=== PATIENT | male | born 1960 | race Caucasian/White ===

== ENCOUNTER → 2018-12-22 | Outpatient (CLI) | payer MEDICARE, OTHER ==
[2016-11-09 10:17] VITALS: BP 97/55
[~2018-12-22] MED LIST: ACET325T9 PO; ATOR20TA58 PO; Aspirin PO; CELE200C PO; CHOL500016 PO; FAMO-63 PO; GABA-689 PO; GLYB5TAB3 PO; Hydrocodone/Acetaminophen PO; INSU100I17 SQ; INSU100I27 SQ; LISI10TA PO; METF500T PO; Polyethylene Glycol 3350 PO; Sennosides/Docusate Sodium PO
--- NOTE | 2018-12-22 15:44 | RAD ---
KIDNEYS 12/22/2018 INDICATION: Chronic kidney disease. COMPARISON: None available TECHNIQUE: Sonographic evaluation of the kidneys is performed utilizing grayscale imaging. FINDINGS: Kidneys are obscured by bowel gas bilaterally. Multiple positions were attempted, however kidney is not definitively visualized. Urinary bladder is suboptimally distended, limiting evaluation. IMPRESSION: Nondiagnostic examination due to difficulty in visualizing the kidneys secondary to bowel gas. Electronically signed by: Krista Davison MD (12/22/2018 3:39 PM) [facility]
== END | disposition home or self-care (01) ==
LOC: US 15:15
PROVIDERS: ATTEND Internal Medicine Nephrology
DX: N18.2 Chronic kidney disease, stage 2 (mild) (principal)
CPT/HCPCS: 76770

== ENCOUNTER → 2019-01-02 | Outpatient (CLI) | payer MEDICARE ==
[2016-11-09 10:17] VITALS: BP 97/55
[~2019-01-02] MED LIST changes: +ALBU2.5V8 INH; +AMLO10TA8 PO; +ASPI-630 PO; +ATEN50TA PO; +BETH5TAB PO; +DICY10CA3 PO; +DOXA2TAB2 PO; +INSU100C SQ; +INSU100I13 SQ; +LOSA100T14 PO; +OMEP40CA5 PO; +POLY17PO28 PO; +POTA20TA4 PO
--- NOTE | 2019-01-02 13:18 | KCIC ---
Two-view chest dated 01/02/2019. Comparison none. CLINICAL INDICATION: Shortness of breath. History of bronchitis. FINDINGS: PA and lateral views obtained. Heart and mediastinal contours within normal limits. Lungs are clear without focal consolidation. Vascular interstitium within normal limits. No pleural effusion or pneumothorax. Mild tortuosity and ectasia of the thoracic aorta. IMPRESSION: No acute radiographic abnormality. Electronically signed by: Yo Patel MD (01/02/2019 1:13 PM) [facility]
== END | disposition home or self-care (01) ==
LOC: KCIC 12:57
PROVIDERS: ATTEND Family Medicine
DX: I77.810 Thoracic aortic ectasia (principal)
CPT/HCPCS: 71046

== ENCOUNTER 2019-02-27 11:22 | Inpatient (IN) | payer MEDICARE ==
[~2019-02-27] VITALS: Ht 172.7 cm; Wt 134.5 kg
[~2019-02-27 11:22] MED LIST changes: -ALBU2.5V8 INH; -AMLO10TA8 PO; -ASPI-630 PO; -ATEN50TA PO; -BETH5TAB PO; -DICY10CA3 PO; -DOXA2TAB2 PO; -INSU100C SQ; -INSU100I13 SQ; -LOSA100T14 PO; -OMEP40CA5 PO; -POLY17PO28 PO; -POTA20TA4 PO
[2019-02-27 12:06] LABS: BASO % 0 % (0-3); EOS # 0.1 x10^3/uL (0.0-0.7); EOS % 1 % (0-3); HEMATOCRIT 40.8 % (39.0-53.0); HEMOGLOBIN 12.6 g/dL (13.0-17.5); LYMPH # 0.7 x10^3/uL (1.0-4.8); LYMPH % 14 % (24-48); MEAN CORPUSCULAR HEMOGLOBIN 30 pg (25-35); MEAN CORPUSCULAR HGB CONC 31 g/dL (31-37); MEAN CORPUSCULAR VOLUME 97 fL (79-100); MONO # 0.5 x10^3/uL (0.0-1.1); MONO % 9 % (0-9); NEUT # 3.7 x10^3uL (1.8-7.7); NEUT % 76 % (31-73); PLATELET COUNT 158 x10^3/uL (140-400); RED BLOOD COUNT 4.23 x10^6/uL (4.30-5.70); RED CELL DISTRIBUTION WIDTH 14.8 % (11.5-14.5); WHITE BLOOD COUNT 4.9 x10^3/uL (4.0-11.0)
[2019-02-27 12:25] LABS: CALCIUM 8.3 mg/dL (8.5-10.1); CREATININE 2.4 mg/dL (0.7-1.3); GFR 28.1; POTASSIUM 4.6 mmol/L (3.5-5.1)
--- NOTE | 2019-02-27 12:34 | RAD ---
EXAM: Abdomen acute complete. HISTORY: Shortness of air. Bloating. COMPARISON: 01/02/2019 FINDINGS: A frontal view of the chest and frontal upright and supine views of the abdomen are obtained. There is slight decreased lung volumes with vascular crowding and atelectasis. There is mild elevation of the right hemidiaphragm, a component of which is likely positional. There is a stable prominent cardiac silhouette. There is no pleural effusion or pneumothorax. There are air-filled loops of bowel within the abdomen. There is no transition point to suggest ejection. There is no free air. IMPRESSION: 1. Slight decreased lung volumes with associated vascular crowding and atelectasis. 2. Nonobstructive bowel gas pattern. Electronically signed by: Lelo Aguirre MD (02/27/2019 12:31 PM) [place] [id number]
[2019-02-27 12:37] LABS: INFLUENZA A PATIENT NEGATIVE (NEGATIVE); INFLUENZA B PATIENT NEGATIVE (NEGATIVE)
[2019-02-27 12:38] LABS: ALBUMIN 3.2 g/dL (3.4-5.0); ALBUMIN/GLOBULIN RATIO 0.8 (1.0-1.7); MAGNESIUM 2.6 mg/dL (1.8-2.4); TOTAL BILIRUBIN 0.4 mg/dL (0.2-1.0); TOTAL PROTEIN 7.3 g/dL (6.4-8.2)
--- NOTE | 2019-02-27 12:58 | EKG ---
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
[2019-02-27] MEDS ORDERED: DOPamine 400MG/250ML PREMIX 400 MG/250 ML BAG IV ONE (16:21)
[2019-02-27] MEDS ORDERED: ATROPINE 0.5 MG/5 ML DISP.SYRINGE. ONE (16:21)
[2019-02-27] MEDS ORDERED: ACETAMINOPHEN 325 MG TABLET. PO PRN (16:45)
[2019-02-27] MEDS ORDERED: DEXTROSE 50% 25 GM / 50ML DISP.SYRIN. IV PRN (16:45)
[2019-02-27] MEDS ORDERED: MORPHINE SULFATE 2 MG/ML VIAL. IV PRN (16:45)
[2019-02-27] MEDS ORDERED: ONDANSETRON PF 4 MG/2 ML VIAL. IV PRN (16:45)
--- NOTE | 2019-02-27 16:55 | PHYS DOC ---
Past Medical History Past Medical History: Diabetes-Type II, High Cholesterol, Hypertension, Renal Disease Past Surgical History: Tonsillectomy, Other Additional Past Surgical Histo: R BKA Alcohol Use: None Drug Use: None Adult General Chief Complaint Chief Complaint: OTHER COMPLAINTS [facility] HPI Patient is a 58 year old male with history of diabetes type 2, high cholesterol , right below the knee amputation, who presents to the ED today to be evaluated for multiple complaints. Patient states he has had shortness of breath for the last 4 months. He is also complaining of swelling from his abdomen to his lower extremities for the last 3 weeks. He states he has followed up with his primary care doctor who got him on some medicine. Patient does not remember the name of the medicine and whether it was a diuretic or not. Patient denies any coughing or congestion. Denies any chest pain. Review of Systems Review of Systems Constitutional: Denies fever or chills [] Eyes: Denies change in visual acuity, redness, or eye pain [] HENT: Denies nasal congestion or sore throat [] Respiratory: Reports shortness of breath, denies coughing Cardiovascular: No additional information not addressed in HPI [] GI: Denies abdominal pain, nausea, vomiting, bloody stools or diarrhea [] : Denies dysuria or hematuria [] Musculoskeletal: Denies back pain or joint pain [] Integument: Reveals edema from his abdomen into his lower extremity. Neurologic: Denies headache, focal weakness or sensory changes [] All other systems were reviewed and found to be within normal limits, except as documented in this note. Allergies Allergies Allergies Coded Allergies Type Severity Reaction Last Updated Verified No Known Drug Allergies 11/09/16 No Physical Exam Physical Exam Constitutional: Well developed, well nourished, no acute distress, non-toxic appearance. [] HENT: Normocephalic, atraumatic, bilateral external ears normal, oropharynx moist, no oral exudates, nose normal. [] Eyes: PERRLA, EOMI, conjunctiva normal, no discharge. [] Neck: Normal range of motion, no tenderness, supple, no stridor. [] Cardiovascular:Heart rate regular rhythm, no murmur [] Lungs & Thorax: Lungs sound moist. Abdomen: Abdomen appears rounded and nondistended. Bowel sounds normal, soft, no tenderness, no masses, no pulsatile masses. [] Skin: Warm, dry, no erythema, no rash. [] Back: No tenderness, no CVA tenderness. [] Extremities: right BKA noted. No tenderness, no cyanosis, no clubbing, ROM intact, moderate testicular edema and left lower extremity edema noted. skin on the left inner bell is very dry with open area whipping clear fluid Neurologic: Alert and oriented X 3, normal motor function, normal sensory function, no focal deficits noted. [] Psychologic: Affect normal, judgement normal, mood normal. [] Current Patient Data Vital Signs Vital Signs Date Time Temp Pulse Resp B/P (MAP) Pulse Ox O2 Delivery O2 Flow Rate FiO2 02/27/19 15:32 64 28 131/69 (89) 95 Nasal Cannula 3.0 02/27/19 11:28 97.8 97.8 Lab Values Laboratory Tests Test 02/27/19 11:40 02/27/19 11:55 02/27/19 14:56 02/27/19 14:57 White Blood Count 4.9 x10^3/uL (4.0-11.0) Red Blood Count 4.23 x10^6/uL (4.30-5.70) L Hemoglobin 12.6 g/dL (13.0-17.5) L Hematocrit 40.8 % (39.0-53.0) Mean Corpuscular Volume 97 fL (79-100) Mean Corpuscular Hemoglobin 30 pg (25-35) Mean Corpuscular Hemoglobin Concent 31 g/dL (31-37) Red Cell Distribution Width 14.8 % (11.5-14.5) H Platelet Count 158 x10^3/uL (140-400) Neutrophils (%) (Auto) 76 % (31-73) H Lymphocytes (%) (Auto) 14 % (24-48) L Monocytes (%) (Auto) 9 % (0-9) Eosinophils (%) (Auto) 1 % (0-3) Basophils (%) (Auto) 0 % (0-3) Neutrophils # (Auto) 3.7 x10^3uL (1.8-7.7) Lymphocytes # (Auto) 0.7 x10^3/uL (1.0-4.8) L Monocytes # (Auto) 0.5 x10^3/uL (0.0-1.1) Eosinophils # (Auto) 0.1 x10^3/uL (0.0-0.7) Basophils # (Auto) 0.0 x10^3/uL (0.0-0.2) Prothrombin Time 15.0 SEC (11.7-14.0) H Prothrombin Time INR 1.2 (0.8-1.1) H PTT 31 SEC (24-38) Sodium Level 143 mmol/L (136-145) Potassium Level 4.6 mmol/L (3.5-5.1) Chloride Level 109 mmol/L (98-107) H Carbon Dioxide Level 26 mmol/L (21-32) Anion Gap 8 (6-14) Blood Urea Nitrogen 55 mg/dL (8-26) H Creatinine 2.4 mg/dL (0.7-1.3) H Estimated GFR (Cockcroft-Gault) 28.1 BUN/Creatinine Ratio 23 (6-20) H Glucose Level 76 mg/dL (70-99) Lactic Acid Level 1.3 mmol/L (0.4-2.0) Calcium Level 8.3 mg/dL (8.5-10.1) L Magnesium Level 2.6 mg/dL (1.8-2.4) H Total Bilirubin 0.4 mg/dL (0.2-1.0) Aspartate Amino Transferase (AST) 20 U/L (15-37) Alanine Aminotransferase (ALT) 21 U/L (16-63) Alkaline Phosphatase 102 U/L (46-116) Creatine Kinase 353 U/L (39-308) H Creatine Kinase MB (Mass) 2.8 ng/mL (0.0-3.6) Creatine Kinase MB Relative Index 0.8 % (0-4) Troponin I Quantitative 0.052 ng/mL (0.000-0.055) DH-Bto-J-Type Natriuretic Peptide 4347 pg/mL (0-124) H Total Protein 7.3 g/dL (6.4-8.2) Albumin 3.2 g/dL (3.4-5.0) L Albumin/Globulin Ratio 0.8 (1.0-1.7) L Lipase 80 U/L (73-393) Thyroid Stimulating Hormone (TSH) 2.599 uIU/mL (0.358-3.74) Influenza Type A Antigen Negative (NEGATIVE) Influenza Type B Antigen Negative (NEGATIVE) Glucose (Fingerstick) 32 mg/dL (70-99) *L 34 mg/dL (70-99) *L Test 02/27/19 15:33 Glucose (Fingerstick) 59 mg/dL (70-99) L Laboratory Tests 02/27/19 11:40 Laboratory Tests 02/27/19 11:40 EKG EKG 11:[address] Hamlin sinus rhythm heart rate 60 no STEMI Radiology/Procedures Radiology/Procedures []PROCEDURE: ACUTE ABDOMEN SERIES EXAM: Abdomen acute complete. HISTORY: Shortness of air. Bloating. COMPARISON: 01/02/2019 FINDINGS: A frontal view of the chest and frontal upright and supine views of the abdomen are obtained. There is slight decreased lung volumes with vascular crowding and atelectasis. There is mild elevation of the right hemidiaphragm, a component of which is likely positional. There is a stable prominent cardiac silhouette. There is no pleural effusion or pneumothorax. There are air-filled loops of bowel within the abdomen. There is no transition point to suggest ejection. There is no free air. IMPRESSION: 1. Slight decreased lung volumes with associated vascular crowding and atelectasis. 2. Nonobstructive bowel gas pattern. Electronically signed by: Lelo Barajas MD (02/27/2019 12:31 PM) [facility] DICTATED and SIGNED BY: LELO BARAJAS MD DATE: 02/27/19 1231 Course & Med Decision Making Course & Med Decision Making Pertinent Labs and Imaging studies reviewed. (See chart for details) This is a 58-year-old male patient presenting to the ED today with shortness of breath for 4 months, edema for 3 weeks. Patient O2 sats were 88% on room air on arrival to the ED. He was placed on oxygen 2 L. CBC with hemoglobin of 12.6 hematocrit 40.8., CMP with creatinine of 2.4, BUN 55, BNP 4337. Blood pressures are running in the low 100s/50s to 80s. Patient's blood sugar dropped in the ED to 34, we gave him food, blood glucose went up to 70. Patient has not voided in the ED. We did a BVI which shows less than 200 mL. Patient has not voided despite being in the ED for more than 4 hours. Nephrology consult was placed, renal ultrasound was ordered. I spoke with patient's PCP Dr. Samayoa, he states he no longer accept admissions. Consulted with Dr. Acuna who films accepted patient for admission. Dragon Disclaimer Dragon Disclaimer This electronic medical record was generated, in whole or in part, using a voice recognition dictation system. Departure Departure Impression: Primary Impression: Acute renal failure Additional Impressions: Edema Shortness of breath Disposition: ADMITTED INPATIENT Condition: STABLE Referrals: KRYSTIAN SAMAYOA MD (PCP) Problem Qualifiers Primary Impression: Acute renal failure Acute renal failure type: unspecified Qualified Codes: N17.9 - Acute kidney failure, unspecified Additional Impressions: Edema Edema type: unspecified Qualified Codes: R60.9 - Edema, unspecified YO EGAN [employer]PERATOR Feb 27, 2019 16:55
[2019-02-27] MEDS ORDERED: ASPI-630 PO (17:06)
[2019-02-27] MEDS ORDERED: LOSA100T14 PO (17:09)
[2019-02-27] MEDS ORDERED: OMEP40CA5 PO (17:09)
[2019-02-27] MEDS ORDERED: ATEN50TA PO (17:09)
[2019-02-27] MEDS ORDERED: AMLO10TA8 PO (17:09)
[2019-02-27] MEDS ORDERED: ATOR20TA58 PO (17:09)
[2019-02-27] MEDS ORDERED: DOXA2TAB2 PO (17:09)
[2019-02-27] MEDS ORDERED: ALBU2.5V8 INH (17:11)
[2019-02-27] MEDS ORDERED: INSU100C SQ (17:11)
[2019-02-27] MEDS ORDERED: INSU100I13 SQ (17:11)
--- NOTE | 2019-02-27 17:16 | PDOC1 ---
History and Physical Date of Admission Date of Admission DATE: 02/27/19 TIME: 17:11 Identification/Chief Complaint Chief Complaint abd swelling and dyspnea Source Source: Chart review, Patient History of Present Illness History of Present Illness Mr. Spain is a 58 year old male patient of Dr. Villavicencio, He admits from ER with dyspnea, and swelling, abd swelling and now severe scrotal swelling, He is s/p R BKA and can ambulate with prosthesis, has been active He has 3 weeks of worsening symptoms os swelling the dyspnea has been going on for months, worse the past few days with ortopnea. Past Medical History Cardiovascular: HTN Endocrine: Diabetes Past Surgical History Past Surgical History: Tonsillectomy Family History Family History: Diabetes, Hypertension, Osteo Arthiritis Social History Smoke: No ALCOHOL: none Drugs: None Current Problem List Problem List Problems Medical Problems: (1) Acute renal failure Status: Acute (2) Edema Status: Acute (3) Shortness of breath Status: Acute Current Medications Current Medications Current Medications Ondansetron HCl (Zofran) 4 mg PRN Q8HRS PRN IV NAUSEA/VOMITING; Start 02/27/19 at 16:45; Stop 02/28/19 at 16:44 Morphine Sulfate (Morphine Sulfate) 2 mg PRN Q2HR PRN IV PAIN; Start 02/27/19 at 16:45; Stop 02/28/19 at 16:44 Acetaminophen (Tylenol) 650 mg PRN Q4HRS PRN PO FEVER; Start 02/27/19 at 16:45 ; Stop 02/28/19 at 16:44 Dextrose (Dextrose 50%-Water Syringe) 12.5 gm PRN Q15MIN PRN IV SEE COMMENTS; Start 02/27/19 at 16:45 Active Scripts Active Reported Doxazosin Mesylate 2 Mg Tablet 2 Mg PO DAILY Omeprazole 40 Mg Capsule.dr 40 Mg PO DAILY Amlodipine Besylate 10 Mg Tablet 10 Mg PO DAILY Atorvastatin Calcium 20 Mg Tablet 20 Mg PO DAILY Atenolol 50 Mg Tablet 50 Mg PO DAILY Losartan Potassium 100 Mg Tablet 100 Mg PO DAILY Aspirin 81 Mg Tab.chew 81 Mg PO DAILY Glyburide 5 Mg Tablet 1 Tab PO BID Allergies Allergies: Coded Allergies: No Known Drug Allergies (Unverified , 11/09/16) ROS General: YES: Chills, Fatigue PSYCHOLOGICAL ROS: No: Anxiety, Behavioral Disorder, Concentration difficultie , Decreased libido, Depression, Disorientation, Hallucinations, Hostility, Irritablity, Memory difficulties, Mood Swings, Obsessive thoughts, Physical abuse, Sexual abuse, Sleep disturbances, Suicidal ideation, Other Eyes: No Blurry vision, No Decreased vision, No Double vision, No Dry eyes, No Excessive tearing, No Eye Pain, No Itchy Eyes, No Loss of vision, No Photophobia , No Scotomata, No Uses contacts, No Uses glasses, No Other ENDOCRINE: No: Breast Changes, Galactorrhea, Hair Pattern Changes, Hot Flashes , Malaise/lethargy, Mood Swings, Palpitations, Polydipsia/polyuria, Skin Changes , Temperature Intolerance, Unexpected Weight Changes, Other Respiratory: YES: Orthopnea, Shortness of breath, SOB with excertion; No: Cough, Hemoptysis, Pleuritic Pain, Sputum Changes, Stridor, Tachypnea, Wheezing, Other Cardiovascular: yes Edema; No Chest Pain, No Palpitations, No Orthopnea, No Paroxysmal Noc. Dyspnea, No Lt Headedness, No Other Gastrointestinal: Yes Nausea; No Vomiting, No Abdominal Pain, No Diarrhea, No Constipation, No Melena, No Hematochezia, No Other Genitourinary: YES Other (swelling); No Dysuria, No Frequency, No Incontinence, No Hematuria, No Retention, No Discharge, No Urgency, No Pain, No Flank Pain, No , No , No , No , No , No , No Musculoskeletal: No Gait Disturbance, No Joint Pain, No Joint Stiffness, No Joint Swelling, No Muscle Pain, No Muscular Weakness, No Pain In:, No Swelling In:, No Other Neurological: No Behavorial Changes, No Bowel/Bladder ControlChng, No Confusion , No Dizziness, No Gait Disturbance, No Headaches, No Impaired Coord/balance, No Memory Loss, No Numbness/Tingling, No Seizures, No Speech Problems, No Tremors, No Visual Changes, No Weakness, No Other Skin: Yes Dry Skin, Yes Eczema; No Hair Changes, No Lumps, No Mole Changes, No Mottling, No Nail Changes, No Pruritus, No Rash, No Skin Lesion Changes, No Other, No Acne Physical Exam Physical Exam malordorous General: Alert, Oriented X3, Cooperative, No acute distress HEENT: Atraumatic Abdomen: Normal bowel sounds, Soft (obese, firm) Male Genitals Exam: scrotum tenderness (R) (massive swelling, cannot see penis, not painful without palpation) Rectal Exam: not examined Extremities: Other (LLE 1+ edema, with wrinking and scale, ) Skin: Other (scale, ) Neuro: Normal speech, Normal tone, Sensation intact Psych/Mental Status: Mental status NL, Mood NL Vitals Vitals Vital Signs Date Time Temp Pulse Resp B/P (MAP) Pulse Ox O2 Delivery O2 Flow Rate FiO2 02/27/19 15:32 64 28 131/69 (89) 95 Nasal Cannula 3.0 02/27/19 11:28 97.8 97.8 Labs Labs Laboratory Tests Test 02/27/19 11:40 02/27/19 11:55 02/27/19 14:56 02/27/19 14:57 White Blood Count 4.9 x10^3/uL (4.0-11.0) Red Blood Count 4.23 x10^6/uL (4.30-5.70) Hemoglobin 12.6 g/dL (13.0-17.5) Hematocrit 40.8 % (39.0-53.0) Mean Corpuscular Volume 97 fL (79-100) Mean Corpuscular Hemoglobin 30 pg (25-35) Mean Corpuscular Hemoglobin Concent 31 g/dL (31-37) Red Cell Distribution Width 14.8 % (11.5-14.5) Platelet Count 158 x10^3/uL (140-400) Neutrophils (%) (Auto) 76 % (31-73) Lymphocytes (%) (Auto) 14 % (24-48) Monocytes (%) (Auto) 9 % (0-9) Eosinophils (%) (Auto) 1 % (0-3) Basophils (%) (Auto) 0 % (0-3) Neutrophils # (Auto) 3.7 x10^3uL (1.8-7.7) Lymphocytes # (Auto) 0.7 x10^3/uL (1.0-4.8) Monocytes # (Auto) 0.5 x10^3/uL (0.0-1.1) Eosinophils # (Auto) 0.1 x10^3/uL (0.0-0.7) Basophils # (Auto) 0.0 x10^3/uL (0.0-0.2) Prothrombin Time 15.0 SEC (11.7-14.0) Prothromb Time International Ratio 1.2 (0.8-1.1) Activated Partial Thromboplast Time 31 SEC (24-38) Sodium Level 143 mmol/L (136-145) Potassium Level 4.6 mmol/L (3.5-5.1) Chloride Level 109 mmol/L (98-107) Carbon Dioxide Level 26 mmol/L (21-32) Anion Gap 8 (6-14) Blood Urea Nitrogen 55 mg/dL (8-26) Creatinine 2.4 mg/dL (0.7-1.3) Estimated GFR (Cockcroft-Gault) 28.1 BUN/Creatinine Ratio 23 (6-20) Glucose Level 76 mg/dL (70-99) Lactic Acid Level 1.3 mmol/L (0.4-2.0) Calcium Level 8.3 mg/dL (8.5-10.1) Magnesium Level 2.6 mg/dL (1.8-2.4) Total Bilirubin 0.4 mg/dL (0.2-1.0) Aspartate Amino Transf (AST/SGOT) 20 U/L (15-37) Alanine Aminotransferase (ALT/SGPT) 21 U/L (16-63) Alkaline Phosphatase 102 U/L (46-116) Creatine Kinase 353 U/L (39-308) Creatine Kinase MB (Mass) 2.8 ng/mL (0.0-3.6) Creatine Kinase MB Relative Index 0.8 % (0-4) Troponin I Quantitative 0.052 ng/mL (0.000-0.055) YR-Hww-U-Type Natriuretic Peptide 4347 pg/mL (0-124) Total Protein 7.3 g/dL (6.4-8.2) Albumin 3.2 g/dL (3.4-5.0) Albumin/Globulin Ratio 0.8 (1.0-1.7) Lipase 80 U/L (73-393) Thyroid Stimulating Hormone (TSH) 2.599 uIU/mL (0.358-3.74) Influenza Type A Antigen Negative (NEGATIVE) Influenza Type B Antigen Negative (NEGATIVE) Glucose (Fingerstick) 32 mg/dL (70-99) 34 mg/dL (70-99) Test 02/27/19 15:33 02/27/19 16:18 Glucose (Fingerstick) 59 mg/dL (70-99) 70 mg/dL (70-99) Laboratory Tests Test 02/27/19 11:40 02/27/19 11:55 02/27/19 14:56 02/27/19 14:57 White Blood Count 4.9 x10^3/uL (4.0-11.0) Red Blood Count 4.23 x10^6/uL (4.30-5.70) Hemoglobin 12.6 g/dL (13.0-17.5) Hematocrit 40.8 % (39.0-53.0) Mean Corpuscular Volume 97 fL (79-100) Mean Corpuscular Hemoglobin 30 pg (25-35) Mean Corpuscular Hemoglobin Concent 31 g/dL (31-37) Red Cell Distribution Width 14.8 % (11.5-14.5) Platelet Count 158 x10^3/uL (140-400) Neutrophils (%) (Auto) 76 % (31-73) Lymphocytes (%) (Auto) 14 % (24-48) Monocytes (%) (Auto) 9 % (0-9) Eosinophils (%) (Auto) 1 % (0-3) Basophils (%) (Auto) 0 % (0-3) Neutrophils # (Auto) 3.7 x10^3uL (1.8-7.7) Lymphocytes # (Auto) 0.7 x10^3/uL (1.0-4.8) Monocytes # (Auto) 0.5 x10^3/uL (0.0-1.1) Eosinophils # (Auto) 0.1 x10^3/uL (0.0-0.7) Basophils # (Auto) 0.0 x10^3/uL (0.0-0.2) Prothrombin Time 15.0 SEC (11.7-14.0) Prothromb Time International Ratio 1.2 (0.8-1.1) Activated Partial Thromboplast Time 31 SEC (24-38) Sodium Level 143 mmol/L (136-145) Potassium Level 4.6 mmol/L (3.5-5.1) Chloride Level 109 mmol/L (98-107) Carbon Dioxide Level 26 mmol/L (21-32) Anion Gap 8 (6-14) Blood Urea Nitrogen 55 mg/dL (8-26) Creatinine 2.4 mg/dL (0.7-1.3) Estimated GFR (Cockcroft-Gault) 28.1 BUN/Creatinine Ratio 23 (6-20) Glucose Level 76 mg/dL (70-99) Lactic Acid Level 1.3 mmol/L (0.4-2.0) Calcium Level 8.3 mg/dL (8.5-10.1) Magnesium Level 2.6 mg/dL (1.8-2.4) Total Bilirubin 0.4 mg/dL (0.2-1.0) Aspartate Amino Transf (AST/SGOT) 20 U/L (15-37) Alanine Aminotransferase (ALT/SGPT) 21 U/L (16-63) Alkaline Phosphatase 102 U/L (46-116) Creatine Kinase 353 U/L (39-308) Creatine Kinase MB (Mass) 2.8 ng/mL (0.0-3.6) Creatine Kinase MB Relative Index 0.8 % (0-4) Troponin I Quantitative 0.052 ng/mL (0.000-0.055) JZ-Hfg-T-Type Natriuretic Peptide 4347 pg/mL (0-124) Total Protein 7.3 g/dL (6.4-8.2) Albumin 3.2 g/dL (3.4-5.0) Albumin/Globulin Ratio 0.8 (1.0-1.7) Lipase 80 U/L (73-393) Thyroid Stimulating Hormone (TSH) 2.599 uIU/mL (0.358-3.74) Influenza Type A Antigen Negative (NEGATIVE) Influenza Type B Antigen Negative (NEGATIVE) Glucose (Fingerstick) 32 mg/dL (70-99) 34 mg/dL (70-99) Test 02/27/19 15:33 02/27/19 16:18 Glucose (Fingerstick) 59 mg/dL (70-99) 70 mg/dL (70-99) VTE Prophylaxis Ordered VTE Prophylaxis Devices: No VTE Pharmacological Prophylaxi: Yes Assessment/Plan Assessment/Plan scrotal swelling, acute, worse than LE swelling, some CHF, acute systolic exacerbation, with other, but will US scrotum, consider hydrocele, Uro consult Dm2 obesity, BMI 47 hx RLE PAUL JOHNSON MD Feb 27, 2019 17:16
[2019-02-27 17:36] VITALS: BP 115/55
[2019-02-27] MEDS: HEPARIN for SUB-Q USE 5,000 UNIT/ML VIAL. SQ SCH ×2 (17:41→23:48)
[2019-02-27 19:20] VITALS: BP 111/65
--- NOTE | 2019-02-27 22:04 | PDOC2 ---
UROLOGY CONSULT Date of Admission DATE: 02/27/19 TIME: 21:58 Chief Complaint scrotal swelling Source: Chart review, Patient 3 weeks of bilateral general scrotal swelling and tenderness. No drainage, no erythema. +dyspnea, abd swelling, leg swelling. ROS ROS: RESPIRATORY: Shortness of breath denies. Cough denies. UROLOGY: Denies blood in urine. Denies difficulty urinating Past Surgical History: Tonsillectomy Past Surgical History: Tonsillectomy, Other Additional Past Surgical Histo: R BKA Current Medications Current Medications Ondansetron HCl (Zofran) 4 mg PRN Q8HRS PRN IV NAUSEA/VOMITING; Start 02/27/19 at 16:45; Stop 02/28/19 at 16:44 Morphine Sulfate (Morphine Sulfate) 2 mg PRN Q2HR PRN IV PAIN; Start 02/27/19 at 16:45; Stop 02/28/19 at 16:44 Acetaminophen (Tylenol) 650 mg PRN Q4HRS PRN PO FEVER Last administered on 02/27at 21:06; Start 02/27/19 at 16:45; Stop 02/28/19 at 16:44 Dextrose (Dextrose 50%-Water Syringe) 12.5 gm PRN Q15MIN PRN IV SEE COMMENTS; Start 02/27/19 at 16:45 Heparin Sodium (Porcine) (Heparin Sodium) 5,000 unit Q8HRS SQ Last administered on 02/27/19at 17:41; Start 02/27/19 at 17:00 Active Scripts Active Reported Proair Hfa Inhaler (Albuterol Sulfate) 8.5 Gm Hfa.aer.ad 1 Puff INH PRN Q6HRS PRN Lantus Solostar (Insulin Glargine,Hum.rec.anlog) 100 Unit/1 Ml Insuln.pen 20 Unit SQ QHS Humalog (Insulin Lispro) 100 Unit/1 Ml Cartridge 6 Unit SQ TIDWMEALS Doxazosin Mesylate 2 Mg Tablet 2 Mg PO DAILY Omeprazole 40 Mg Capsule.dr 40 Mg PO DAILY Amlodipine Besylate 10 Mg Tablet 10 Mg PO DAILY Atorvastatin Calcium 20 Mg Tablet 20 Mg PO DAILY Atenolol 50 Mg Tablet 50 Mg PO DAILY Losartan Potassium 100 Mg Tablet 100 Mg PO DAILY Aspirin 81 Mg Tab.chew 81 Mg PO DAILY Glyburide 5 Mg Tablet 1 Tab PO BID Allergies: Coded Allergies: No Known Drug Allergies (Unverified , 11/09/16) Physical Examination PHYSICAL EXAMINATION: GENERAL: Gen. appearance: No acute distress. obses Mood/affect: Pleasant. HEENT: Head: Normocephalic, atraumatic. Airway Impairment: No. CHEST: Shape and expansion: Normal. Expansion: Normal. SKIN: General: Warm. Color: Good. GENITOURINARY:bl pitting edema, no fluctuating mass, no erythema NEUROLOGICAL: Mental status: Alert and oriented 3. Language: Normal. DOES THIS PATIENT HAVE URINARY: No VITALS Vital Signs Date Time Temp Pulse Resp B/P (MAP) Pulse Ox O2 Delivery O2 Flow Rate FiO2 02/27/19 19:57 Nasal Cannula 3.0 02/27/19 19:20 97.9 61 22 111/65 (80) 92 97.9 Labs Laboratory Tests Test 02/27/19 11:40 02/27/19 11:55 02/27/19 14:56 02/27/19 14:57 White Blood Count 4.9 x10^3/uL (4.0-11.0) Red Blood Count 4.23 x10^6/uL (4.30-5.70) Hemoglobin 12.6 g/dL (13.0-17.5) Hematocrit 40.8 % (39.0-53.0) Mean Corpuscular Volume 97 fL (79-100) Mean Corpuscular Hemoglobin 30 pg (25-35) Mean Corpuscular Hemoglobin Concent 31 g/dL (31-37) Red Cell Distribution Width 14.8 % (11.5-14.5) Platelet Count 158 x10^3/uL (140-400) Neutrophils (%) (Auto) 76 % (31-73) Lymphocytes (%) (Auto) 14 % (24-48) Monocytes (%) (Auto) 9 % (0-9) Eosinophils (%) (Auto) 1 % (0-3) Basophils (%) (Auto) 0 % (0-3) Neutrophils # (Auto) 3.7 x10^3uL (1.8-7.7) Lymphocytes # (Auto) 0.7 x10^3/uL (1.0-4.8) Monocytes # (Auto) 0.5 x10^3/uL (0.0-1.1) Eosinophils # (Auto) 0.1 x10^3/uL (0.0-0.7) Basophils # (Auto) 0.0 x10^3/uL (0.0-0.2) Prothrombin Time 15.0 SEC (11.7-14.0) Prothromb Time International Ratio 1.2 (0.8-1.1) Activated Partial Thromboplast Time 31 SEC (24-38) Sodium Level 143 mmol/L (136-145) Potassium Level 4.6 mmol/L (3.5-5.1) Chloride Level 109 mmol/L (98-107) Carbon Dioxide Level 26 mmol/L (21-32) Anion Gap 8 (6-14) Blood Urea Nitrogen 55 mg/dL (8-26) Creatinine 2.4 mg/dL (0.7-1.3) Estimated GFR (Cockcroft-Gault) 28.1 BUN/Creatinine Ratio 23 (6-20) Glucose Level 76 mg/dL (70-99) Lactic Acid Level 1.3 mmol/L (0.4-2.0) Calcium Level 8.3 mg/dL (8.5-10.1) Magnesium Level 2.6 mg/dL (1.8-2.4) Total Bilirubin 0.4 mg/dL (0.2-1.0) Aspartate Amino Transf (AST/SGOT) 20 U/L (15-37) Alanine Aminotransferase (ALT/SGPT) 21 U/L (16-63) Alkaline Phosphatase 102 U/L (46-116) Creatine Kinase 353 U/L (39-308) Creatine Kinase MB (Mass) 2.8 ng/mL (0.0-3.6) Creatine Kinase MB Relative Index 0.8 % (0-4) Troponin I Quantitative 0.052 ng/mL (0.000-0.055) WZ-Wxs-C-Type Natriuretic Peptide 4347 pg/mL (0-124) Total Protein 7.3 g/dL (6.4-8.2) Albumin 3.2 g/dL (3.4-5.0) Albumin/Globulin Ratio 0.8 (1.0-1.7) Lipase 80 U/L (73-393) Thyroid Stimulating Hormone (TSH) 2.599 uIU/mL (0.358-3.74) Influenza Type A Antigen Negative (NEGATIVE) Influenza Type B Antigen Negative (NEGATIVE) Glucose (Fingerstick) 32 mg/dL (70-99) 34 mg/dL (70-99) Test 02/27/19 15:33 02/27/19 16:18 02/27/19 17:22 02/27/19 18:27 Glucose (Fingerstick) 59 mg/dL (70-99) 70 mg/dL (70-99) 53 mg/dL (70-99) 84 mg/dL (70-99) Test 02/27/19 20:35 02/27/19 20:56 Glucose (Fingerstick) 64 mg/dL (70-99) 67 mg/dL (70-99) Laboratory Tests Test 02/27/19 11:40 02/27/19 11:55 02/27/19 14:56 02/27/19 14:57 White Blood Count 4.9 x10^3/uL (4.0-11.0) Red Blood Count 4.23 x10^6/uL (4.30-5.70) Hemoglobin 12.6 g/dL (13.0-17.5) Hematocrit 40.8 % (39.0-53.0) Mean Corpuscular Volume 97 fL (79-100) Mean Corpuscular Hemoglobin 30 pg (25-35) Mean Corpuscular Hemoglobin Concent 31 g/dL (31-37) Red Cell Distribution Width 14.8 % (11.5-14.5) Platelet Count 158 x10^3/uL (140-400) Neutrophils (%) (Auto) 76 % (31-73) Lymphocytes (%) (Auto) 14 % (24-48) Monocytes (%) (Auto) 9 % (0-9) Eosinophils (%) (Auto) 1 % (0-3) Basophils (%) (Auto) 0 % (0-3) Neutrophils # (Auto) 3.7 x10^3uL (1.8-7.7) Lymphocytes # (Auto) 0.7 x10^3/uL (1.0-4.8) Monocytes # (Auto) 0.5 x10^3/uL (0.0-1.1) Eosinophils # (Auto) 0.1 x10^3/uL (0.0-0.7) Basophils # (Auto) 0.0 x10^3/uL (0.0-0.2) Prothrombin Time 15.0 SEC (11.7-14.0) Prothromb Time International Ratio 1.2 (0.8-1.1) Activated Partial Thromboplast Time 31 SEC (24-38) Sodium Level 143 mmol/L (136-145) Potassium Level 4.6 mmol/L (3.5-5.1) Chloride Level 109 mmol/L (98-107) Carbon Dioxide Level 26 mmol/L (21-32) Anion Gap 8 (6-14) Blood Urea Nitrogen 55 mg/dL (8-26) Creatinine 2.4 mg/dL (0.7-1.3) Estimated GFR (Cockcroft-Gault) 28.1 BUN/Creatinine Ratio 23 (6-20) Glucose Level 76 mg/dL (70-99) Lactic Acid Level 1.3 mmol/L (0.4-2.0) Calcium Level 8.3 mg/dL (8.5-10.1) Magnesium Level 2.6 mg/dL (1.8-2.4) Total Bilirubin 0.4 mg/dL (0.2-1.0) Aspartate Amino Transf (AST/SGOT) 20 U/L (15-37) Alanine Aminotransferase (ALT/SGPT) 21 U/L (16-63) Alkaline Phosphatase 102 U/L (46-116) Creatine Kinase 353 U/L (39-308) Creatine Kinase MB (Mass) 2.8 ng/mL (0.0-3.6) Creatine Kinase MB Relative Index 0.8 % (0-4) Troponin I Quantitative 0.052 ng/mL (0.000-0.055) FT-Hid-I-Type Natriuretic Peptide 4347 pg/mL (0-124) Total Protein 7.3 g/dL (6.4-8.2) Albumin 3.2 g/dL (3.4-5.0) Albumin/Globulin Ratio 0.8 (1.0-1.7) Lipase 80 U/L (73-393) Thyroid Stimulating Hormone (TSH) 2.599 uIU/mL (0.358-3.74) Influenza Type A Antigen Negative (NEGATIVE) Influenza Type B Antigen Negative (NEGATIVE) Glucose (Fingerstick) 32 mg/dL (70-99) 34 mg/dL (70-99) Test 02/27/19 15:33 02/27/19 16:18 02/27/19 17:22 02/27/19 18:27 Glucose (Fingerstick) 59 mg/dL (70-99) 70 mg/dL (70-99) 53 mg/dL (70-99) 84 mg/dL (70-99) Test 02/27/19 20:35 02/27/19 20:56 Glucose (Fingerstick) 64 mg/dL (70-99) 67 mg/dL (70-99) Images us reviewed by myself, live. bl small hydroceles, no abscess. Assessment/Plan bl hydrocele, clinically insignificant. scrotal swelling, 2/2 anasarca. recommend rest, ice , scrotal elevation. RADHIKA BARKSDALE MD Feb 27, 2019 22:04
[2019-02-27 23:20] VITALS: BP 115/58
[2019-02-28] VITALS (21 sets, daily range): BP systolic 82–143; BP diastolic 49–76
[2019-02-28 04:18] LABS: BASO % 1 % (0-3); EOS # 0.1 x10^3/uL (0.0-0.7); EOS % 2 % (0-3); HEMOGLOBIN 12.5 g/dL (13.0-17.5); LYMPH % 18 % (24-48); MEAN CORPUSCULAR HEMOGLOBIN 30 pg (25-35); MEAN CORPUSCULAR HGB CONC 31 g/dL (31-37); MEAN CORPUSCULAR VOLUME 97 fL (79-100); MONO # 0.5 x10^3/uL (0.0-1.1); MONO % 9 % (0-9); NEUT # 3.9 x10^3uL (1.8-7.7); NEUT % 71 % (31-73); PLATELET COUNT 181 x10^3/uL (140-400); RED BLOOD COUNT 4.12 x10^6/uL (4.30-5.70); RED CELL DISTRIBUTION WIDTH 15.1 % (11.5-14.5); WHITE BLOOD COUNT 5.5 x10^3/uL (4.0-11.0)
[2019-02-28 05:05] LABS: CALCIUM 8.3 mg/dL (8.5-10.1); CREATININE 2.6 mg/dL (0.7-1.3); GFR 25.7; POTASSIUM 4.6 mmol/L (3.5-5.1)
[2019-02-28] MEDS: HEPARIN for SUB-Q USE 5,000 UNIT/ML VIAL. SQ SCH ×3 (05:35→21:37)
[2019-02-28] MEDS ORDERED: ETOMIDATE 20 MG/10 ML VIAL. IV ONE (06:59)
[2019-02-28] MEDS ORDERED: ROCURONIUM 50 MG/5 ML VIAL. ONE (07:00)
[2019-02-28] MEDS ORDERED: PROPOFOL 100 ML IV PRN (07:15)
[2019-02-28] MEDS ORDERED: fentaNYL PF VIAL 100 MCG/2 ML VIAL IV PRN ×3 (07:15→07:45)
[2019-02-28] MEDS: IV NORMAL SALINE 1000ML BAG 1,000 ML IV SCH ×3 (07:32→09:32)
--- NOTE | 2019-02-28 07:34 | NUR ---
Around 0625 the MEDICAL RECEPTIONIST ASSISTANT came and got me and stated that she needed help w/ pt. When I got there he was foaming at the mouth. A rapid response was called then we hit the code blue button when he became non-responsive. Pt. transfered to ICU and message was left w/ his friend Nathan to call back.
[2019-02-28] MEDS ORDERED: 0.9 % SODIUM CHLORIDE 10 ML DISP.SYRIN. IV PRN (07:45)
[2019-02-28] MEDS ORDERED: VECURONIUM BOLUS 10 MG VIAL. IV PRN (07:45)
[2019-02-28] MEDS ORDERED: MINERAL OIL/PETROLATUM,WHITE OPHTH OINT 3.5GM TUBE. OU PRN (07:45)
[2019-02-28] MEDS ORDERED: MEPERIDINE PF 25 MG/ML VIAL. IV PRN (07:45)
--- NOTE | 2019-02-28 07:48 | RAD ---
PORTABLE CHEST 1V History: Endotracheal tube placement Comparison: February 27, 2019 Findings: AP view of the chest is submitted. Endotracheal tube is now present with the tip about 2.2 cm from armani. Pericardial cardiac silhouette is again somewhat enlarged. There is some fullness of the hilar regions and opacity in region of the azygos more apparent on this exam, also some perihilar opacity greater on the right. There is no pneumothorax. There is somewhat increased mild right base airspace opacity. Impression: 1. There is increased perihilar opacity greater on the right and also right base airspace opacity possibly due to edema such as related to left ventricular failure, infiltrates not excluded. There is also some increased fullness in the region of azygous which could be due to azygos distention. There is now endotracheal tube. Electronically signed by: Taras Mendoza MD (02/28/2019 7:45 AM) [facility]
--- NOTE | 2019-02-28 07:59 | RAD ---
TESTICULAR/SCROTUM History: Scrotal swelling and tenderness Comparison: None. Findings: Multiple grayscale, color, duplex spectral masses waveform images of the testicles and scrotum are submitted. There is severe scrotal wall thickening greater on the left with associated edema, no focal fluid collection demonstrated in this region. Right testicle measured 4.1 x 3.7 x 3.2 cm. Left testicle measured 3.9 x 2.9 x 2.9 cm. There is normal color flow and low resistance vascularity of interrogated intratesticular vessels bilaterally. There are small hydroceles bilaterally. There is a small small hypoechoic likely cyst in the posterior right testicle about 0.5 cm in greatest dimension. No solid intratesticular mass is demonstrated. Impression: 1. There is severe scrotal wall thickening with edema left greater than right, evidence of cellulitis. There is no evidence of solid intratesticular mass, small cyst on the right. There is no evidence of testicular torsion. Electronically signed by: Taras Mendoza MD (02/28/2019 7:56 AM) [facility]
--- NOTE | 2019-02-28 08:07 | RAD ---
RENAL COMPLETE BILATERAL History: Acute renal failure, fluid overload, anasarca, obesity Comparison: December 22, 2018 Findings: Sonographic images of the region of the kidneys are submitted although the kidneys could not be visualized due to patient's body habitus. Abdominal aorta and inferior vena cava and also could not be visualized. Urinary bladder was visualized, estimated volume of 154 cc. Impression: 1. Urinary bladder volume was estimated at 154 cc. Neither kidney could be visualized. Electronically signed by: Taras Mendoza MD (02/28/2019 8:03 AM) [facility]
[2019-02-28 08:11] LABS: HEMATOCRIT 40.3 % (39.0-53.0); HEMOGLOBIN 12.8 g/dL (13.0-17.5); RED BLOOD COUNT 4.12 x10^6/uL (4.30-5.70); RED CELL DISTRIBUTION WIDTH 14.9 % (11.5-14.5)
[2019-02-28] MEDS: MIDAZOLAM 100mg/100ml NS BAG 100 ML IV PRN ×3 (08:14→19:58)
[2019-02-28] MEDS ORDERED: FUROSEMIDE 40 MG/4 ML VIAL. IVP ONE (08:30)
[2019-02-28 08:39] LABS: CALCIUM 8.1 mg/dL (8.5-10.1); CREATININE 3.2 mg/dL (0.7-1.3); GFR 20.2; MAGNESIUM 2.7 mg/dL (1.8-2.4); PHOSPHORUS 6.5 mg/dL (2.6-4.7); POTASSIUM 4.9 mmol/L (3.5-5.1)
[2019-02-28] MEDS ORDERED: ASPIRIN RECTAL 300 MG SUPP. PR SCH (09:00)
[2019-02-28] MEDS ORDERED: FAMOTIDINE 20 MG/2 ML VIAL IVP SCH (09:00)
[2019-02-28 09:23] LABS: BILIRUBIN,URINE MODERATE (NEG); CLARITY,URINE TURBID; COLOR,URINE ORANGE; NITRITE,URINE NEGATIVE (NEG); PROTEIN,URINE >=300 mg/dL (NEG-TRACE)
[2019-02-28 09:31] LABS: BARBITURATES NEG (NEG); BENZODIAZEPINES NEG (NEG); CANNABINOIDS NEG (NEG); COCAINE NEG (NEG); METHADONE NEG (NEG); OPIATES NEG (NEG); PHENCYCLIDINE NEG (NEG)
[2019-02-28 09:33] LABS: BASE EXCESS ABG -5 mmol/L (-3-3); HCO3 ABG 24 mmol/L (21-28); PO2 ABG 76 mmHg (75-108); SAT O2 ABG 94 % (92-99)
[2019-02-28 09:35] LABS: PCO2 ABG 64 mmHg (35-46)
[2019-02-28 09:36] LABS: FIO2 ABG 100%
[2019-02-28 09:46] LABS: BACTERIA,URINE FEW /HPF (0-FEW); HYALINE CASTS, URINE MODERATE /HPF; RBC,URINE >40 /HPF (0-2); WBC,URINE OCC /HPF (0-4)
[2019-02-28 09:48] LABS: AMPHETAMINE/METHAMPHETAMINE NEG (NEG)
--- NOTE | 2019-02-28 09:48 | EKG ---
[facility] [address] [place] [address] Test Date: 2019-02-28 Test Time: 09:42:01 Pat Name: RONNY GOLDSMITH Department: Room: 110 1 Gender: M Foreclosure Specialist: ROJAS : 1960 Requested By: PAUL GRIMES Order Number: [id number] Reading MD: Russell Merritt MD Measurements Intervals [place] Rate: 77 P: 38 HI: 140 QRS: -30 QRSD: 80 T: 40 QT: 368 QTc: 418 Interpretive Statements SINUS RHYTHM LOW LIMB LEAD VOLTAGE NON-SPECIFIC ST/T CHANGES Electronically Signed On 03-02-2019 14:30:01 CDT by Russell Merritt MD
--- NOTE | 2019-02-28 10:26 | PDOC ---
PROGRESS NOTES History of Present Illness History of Present Illness Assessment/Plan ACUTE RESP ARREST POST CODE ON FLOOR scrotal swelling 3 weeks of bilateral general scrotal swelling and tenderness. +dyspnea, abd swelling, leg swelling. POA scrotal swelling, acute, worse than LE swelling, some CHF, acute systolic exacerbation, with other, but will US scrotum, consider hydrocele, Uro consult Dm2 obesity, BMI 47 hx RLE BKA Acute renal failure CR Renal CONSULT 3.1 PLAN INTUBATED NOW // IN ICU VENT SUPPORT PULM CONSULT CARDIOLOGY CONSULT UROLOGY CONSULT ID CONSULT IV Meropenem Begin Zyvox - Avoid Vanc with LEONARD IV Micafungin lactic acid/BNP KUB for ? Ileus/SBO - given distension/decreased BS and OGT output ECHO PROCALCITONIN 36 MIN CC TIME Vitals Vitals Vital Signs Date Time Temp Pulse Resp B/P (MAP) Pulse Ox O2 Delivery O2 Flow Rate FiO2 02/28/19 09:32 20 90 Ventilator 02/28/19 03:25 98.0 64 124/73 (90) 4.0 98.0 Physical Exam General: Alert, Oriented X3, Cooperative, No acute distress Heart: Regular rate Lungs: Clear Abdomen: Normal bowel sounds, Soft (obese, firm) Extremities: No cyanosis, Other (LLE 1+ edema, with wrinking and scale, ) Skin: Other (scale, ) Labs LABS PORTABLE CHEST 1V History: Endotracheal tube placement Comparison: February 27, 2019 Findings: AP view of the chest is submitted. Endotracheal tube is now present with the tip about 2.2 cm from armani. Pericardial cardiac silhouette is again somewhat enlarged. There is some fullness of the hilar regions and opacity in region of the azygos more apparent on this exam, also some perihilar opacity greater on the right. There is no pneumothorax. There is somewhat increased mild right base airspace opacity. Impression: 1. There is increased perihilar opacity greater on the right and also right base airspace opacity possibly due to edema such as related to left ventricular failure, infiltrates not excluded. There is also some increased fullness in the region of azygous which could be due to azygos distention. There is now endotracheal tube. Electronically signed by: Link Lopez MD (02/28/2019 7:45 AM) [facility] DICTATED and SIGNED BY: LINK LOPEZ MD DATE: 02/28/19 0745 Laboratory Tests Test 02/27/19 11:40 02/27/19 11:55 02/27/19 14:56 02/27/19 14:57 White Blood Count 4.9 x10^3/uL (4.0-11.0) Red Blood Count 4.23 x10^6/uL (4.30-5.70) Hemoglobin 12.6 g/dL (13.0-17.5) Hematocrit 40.8 % (39.0-53.0) Mean Corpuscular Volume 97 fL (79-100) Mean Corpuscular Hemoglobin 30 pg (25-35) Mean Corpuscular Hemoglobin Concent 31 g/dL (31-37) Red Cell Distribution Width 14.8 % (11.5-14.5) Platelet Count 158 x10^3/uL (140-400) Neutrophils (%) (Auto) 76 % (31-73) Lymphocytes (%) (Auto) 14 % (24-48) Monocytes (%) (Auto) 9 % (0-9) Eosinophils (%) (Auto) 1 % (0-3) Basophils (%) (Auto) 0 % (0-3) Neutrophils # (Auto) 3.7 x10^3uL (1.8-7.7) Lymphocytes # (Auto) 0.7 x10^3/uL (1.0-4.8) Monocytes # (Auto) 0.5 x10^3/uL (0.0-1.1) Eosinophils # (Auto) 0.1 x10^3/uL (0.0-0.7) Basophils # (Auto) 0.0 x10^3/uL (0.0-0.2) Prothrombin Time 15.0 SEC (11.7-14.0) Prothromb Time International Ratio 1.2 (0.8-1.1) Activated Partial Thromboplast Time 31 SEC (24-38) Sodium Level 143 mmol/L (136-145) Potassium Level 4.6 mmol/L (3.5-5.1) Chloride Level 109 mmol/L (98-107) Carbon Dioxide Level 26 mmol/L (21-32) Anion Gap 8 (6-14) Blood Urea Nitrogen 55 mg/dL (8-26) Creatinine 2.4 mg/dL (0.7-1.3) Estimated GFR (Cockcroft-Gault) 28.1 BUN/Creatinine Ratio 23 (6-20) Glucose Level 76 mg/dL (70-99) Lactic Acid Level 1.3 mmol/L (0.4-2.0) Calcium Level 8.3 mg/dL (8.5-10.1) Magnesium Level 2.6 mg/dL (1.8-2.4) Total Bilirubin 0.4 mg/dL (0.2-1.0) Aspartate Amino Transf (AST/SGOT) 20 U/L (15-37) Alanine Aminotransferase (ALT/SGPT) 21 U/L (16-63) Alkaline Phosphatase 102 U/L (46-116) Creatine Kinase 353 U/L (39-308) Creatine Kinase MB (Mass) 2.8 ng/mL (0.0-3.6) Creatine Kinase MB Relative Index 0.8 % (0-4) Troponin I Quantitative 0.052 ng/mL (0.000-0.055) [id number]-Dtk-[id number]-Type Natriuretic Peptide 4347 pg/mL (0-124) Total Protein 7.3 g/dL (6.4-8.2) Albumin 3.2 g/dL (3.4-5.0) Albumin/Globulin Ratio 0.8 (1.0-1.7) Lipase 80 U/L (73-393) Thyroid Stimulating Hormone (TSH) 2.599 uIU/mL (0.358-3.74) Influenza Type A Antigen Negative (NEGATIVE) Influenza Type B Antigen Negative (NEGATIVE) Glucose (Fingerstick) 32 mg/dL (70-99) 34 mg/dL (70-99) Test 02/27/19 15:33 02/27/19 16:18 02/27/19 17:22 02/27/19 18:27 Glucose (Fingerstick) 59 mg/dL (70-99) 70 mg/dL (70-99) 53 mg/dL (70-99) 84 mg/dL (70-99) Test 02/27/19 20:35 02/27/19 20:56 02/27/19 22:30 02/28/19 03:35 Glucose (Fingerstick) 64 mg/dL (70-99) 67 mg/dL (70-99) 83 mg/dL (70-99) White Blood Count 5.5 x10^3/uL (4.0-11.0) Red Blood Count 4.12 x10^6/uL (4.30-5.70) Hemoglobin 12.5 g/dL (13.0-17.5) Hematocrit 40.0 % (39.0-53.0) Mean Corpuscular Volume 97 fL (79-100) Mean Corpuscular Hemoglobin 30 pg (25-35) Mean Corpuscular Hemoglobin Concent 31 g/dL (31-37) Red Cell Distribution Width 15.1 % (11.5-14.5) Platelet Count 181 x10^3/uL (140-400) Neutrophils (%) (Auto) 71 % (31-73) Lymphocytes (%) (Auto) 18 % (24-48) Monocytes (%) (Auto) 9 % (0-9) Eosinophils (%) (Auto) 2 % (0-3) Basophils (%) (Auto) 1 % (0-3) Neutrophils # (Auto) 3.9 x10^3uL (1.8-7.7) Lymphocytes # (Auto) 1.0 x10^3/uL (1.0-4.8) Monocytes # (Auto) 0.5 x10^3/uL (0.0-1.1) Eosinophils # (Auto) 0.1 x10^3/uL (0.0-0.7) Basophils # (Auto) 0.0 x10^3/uL (0.0-0.2) Sodium Level 144 mmol/L (136-145) Potassium Level 4.6 mmol/L (3.5-5.1) Chloride Level 108 mmol/L (98-107) Carbon Dioxide Level 28 mmol/L (21-32) Anion Gap 8 (6-14) Blood Urea Nitrogen 57 mg/dL (8-26) Creatinine 2.6 mg/dL (0.7-1.3) Estimated GFR (Cockcroft-Gault) 25.7 Glucose Level 97 mg/dL (70-99) Calcium Level 8.3 mg/dL (8.5-10.1) Test 02/28/19 06:29 02/28/19 07:40 02/28/19 08:32 02/28/19 08:45 Glucose (Fingerstick) 125 mg/dL (70-99) White Blood Count 9.0 x10^3/uL (4.0-11.0) Red Blood Count 4.12 x10^6/uL (4.30-5.70) Hemoglobin 12.8 g/dL (13.0-17.5) Hematocrit 40.3 % (39.0-53.0) Mean Corpuscular Volume 98 fL (79-100) Mean Corpuscular Hemoglobin 31 pg (25-35) Mean Corpuscular Hemoglobin Concent 32 g/dL (31-37) Red Cell Distribution Width 14.9 % (11.5-14.5) Platelet Count 157 x10^3/uL (140-400) Sodium Level 149 mmol/L (136-145) Potassium Level 4.9 mmol/L (3.5-5.1) Chloride Level 111 mmol/L (98-107) Carbon Dioxide Level 27 mmol/L (21-32) Anion Gap 11 (6-14) Blood Urea Nitrogen 63 mg/dL (8-26) Creatinine 3.2 mg/dL (0.7-1.3) Estimated GFR (Cockcroft-Gault) 20.2 Glucose Level 156 mg/dL (70-99) Calcium Level 8.1 mg/dL (8.5-10.1) Phosphorus Level 6.5 mg/dL (2.6-4.7) Magnesium Level 2.7 mg/dL (1.8-2.4) Amylase Level 31 U/L (25-115) O2 Saturation 94 % (92-99) Arterial Blood pH 7.19 (7.35-7.45) Arterial Blood pCO2 at Patient Temp 64 mmHg (35-46) Arterial Blood pO2 at Patient Temp 76 mmHg (75-108) Arterial Blood HCO3 24 mmol/L (21-28) Arterial Blood Base Excess -5 mmol/L (-3-3) FiO2 100% Urine Collection Type Unknown Urine Color Comstock Urine Clarity Turbid Urine pH 5.0 Urine Specific [place] 1.025 Urine Protein >=300 mg/dL (NEG-TRACE) Urine Glucose (UA) Negative mg/dL (NEG) Urine Ketones (Stick) Trace mg/dL (NEG) Urine Blood Large (NEG) Urine Nitrite Negative (NEG) Urine Bilirubin Moderate (NEG) Urine Urobilinogen Dipstick 2.0 mg/dL (0.2 mg/dL) Urine Leukocyte Esterase Small (NEG) Urine RBC >40 /HPF (0-2) Urine WBC Occ /HPF (0-4) Urine Bacteria Few /HPF (0-FEW) Urine Hyaline Casts Moderate /HPF Urine Opiates Screen Neg (NEG) Urine Methadone Screen Neg (NEG) Urine Barbiturates Neg (NEG) Urine Phencyclidine Screen Neg (NEG) Urine Amphetamine/Methamphetamine Neg (NEG) Urine Benzodiazepines Screen Neg (NEG) Urine Cocaine Screen Neg (NEG) Urine Cannabinoids Screen Neg (NEG) Urine Ethyl Alcohol Neg (NEG) Test 02/28/19 09:00 Ionized Calcium 1.10 mmol/L (1.13-1.32) Assessment and Plan Assessmemt and Plan Problems Medical Problems: (1) Acute renal failure Status: Acute (2) Edema Status: Acute (3) Shortness of breath Status: Acute Comment Review of Relevant I have reviewed the following items pascual (where applicable) has been applied. Labs Laboratory Tests Test 02/27/19 11:40 02/27/19 11:55 02/27/19 14:56 02/27/19 14:57 White Blood Count 4.9 x10^3/uL (4.0-11.0) Red Blood Count 4.23 x10^6/uL (4.30-5.70) Hemoglobin 12.6 g/dL (13.0-17.5) Hematocrit 40.8 % (39.0-53.0) Mean Corpuscular Volume 97 fL (79-100) Mean Corpuscular Hemoglobin 30 pg (25-35) Mean Corpuscular Hemoglobin Concent 31 g/dL (31-37) Red Cell Distribution Width 14.8 % (11.5-14.5) Platelet Count 158 x10^3/uL (140-400) Neutrophils (%) (Auto) 76 % (31-73) Lymphocytes (%) (Auto) 14 % (24-48) Monocytes (%) (Auto) 9 % (0-9) Eosinophils (%) (Auto) 1 % (0-3) Basophils (%) (Auto) 0 % (0-3) Neutrophils # (Auto) 3.7 x10^3uL (1.8-7.7) Lymphocytes # (Auto) 0.7 x10^3/uL (1.0-4.8) Monocytes # (Auto) 0.5 x10^3/uL (0.0-1.1) Eosinophils # (Auto) 0.1 x10^3/uL (0.0-0.7) Basophils # (Auto) 0.0 x10^3/uL (0.0-0.2) Prothrombin Time 15.0 SEC (11.7-14.0) Prothromb Time International Ratio 1.2 (0.8-1.1) Activated Partial Thromboplast Time 31 SEC (24-38) Sodium Level 143 mmol/L (136-145) Potassium Level 4.6 mmol/L (3.5-5.1) Chloride Level 109 mmol/L (98-107) Carbon Dioxide Level 26 mmol/L (21-32) Anion Gap 8 (6-14) Blood Urea Nitrogen 55 mg/dL (8-26) Creatinine 2.4 mg/dL (0.7-1.3) Estimated GFR (Cockcroft-Gault) 28.1 BUN/Creatinine Ratio 23 (6-20) Glucose Level 76 mg/dL (70-99) Lactic Acid Level 1.3 mmol/L (0.4-2.0) Calcium Level 8.3 mg/dL (8.5-10.1) Magnesium Level 2.6 mg/dL (1.8-2.4) Total Bilirubin 0.4 mg/dL (0.2-1.0) Aspartate Amino Transf (AST/SGOT) 20 U/L (15-37) Alanine Aminotransferase (ALT/SGPT) 21 U/L (16-63) Alkaline Phosphatase 102 U/L (46-116) Creatine Kinase 353 U/L (39-308) Creatine Kinase MB (Mass) 2.8 ng/mL (0.0-3.6) Creatine Kinase MB Relative Index 0.8 % (0-4) Troponin I Quantitative 0.052 ng/mL (0.000-0.055) DP-Mqj-A-Type Natriuretic Peptide 4347 pg/mL (0-124) Total Protein 7.3 g/dL (6.4-8.2) Albumin 3.2 g/dL (3.4-5.0) Albumin/Globulin Ratio 0.8 (1.0-1.7) Lipase 80 U/L (73-393) Thyroid Stimulating Hormone (TSH) 2.599 uIU/mL (0.358-3.74) Influenza Type A Antigen Negative (NEGATIVE) Influenza Type B Antigen Negative (NEGATIVE) Glucose (Fingerstick) 32 mg/dL (70-99) 34 mg/dL (70-99) Test 02/27/19 15:33 02/27/19 16:18 02/27/19 17:22 02/27/19 18:27 Glucose (Fingerstick) 59 mg/dL (70-99) 70 mg/dL (70-99) 53 mg/dL (70-99) 84 mg/dL (70-99) Test 02/27/19 20:35 02/27/19 20:56 02/27/19 22:30 02/28/19 03:35 Glucose (Fingerstick) 64 mg/dL (70-99) 67 mg/dL (70-99) 83 mg/dL (70-99) White Blood Count 5.5 x10^3/uL (4.0-11.0) Red Blood Count 4.12 x10^6/uL (4.30-5.70) Hemoglobin 12.5 g/dL (13.0-17.5) Hematocrit 40.0 % (39.0-53.0) Mean Corpuscular Volume 97 fL (79-100) Mean Corpuscular Hemoglobin 30 pg (25-35) Mean Corpuscular Hemoglobin Concent 31 g/dL (31-37) Red Cell Distribution Width 15.1 % (11.5-14.5) Platelet Count 181 x10^3/uL (140-400) Neutrophils (%) (Auto) 71 % (31-73) Lymphocytes (%) (Auto) 18 % (24-48) Monocytes (%) (Auto) 9 % (0-9) Eosinophils (%) (Auto) 2 % (0-3) Basophils (%) (Auto) 1 % (0-3) Neutrophils # (Auto) 3.9 x10^3uL (1.8-7.7) Lymphocytes # (Auto) 1.0 x10^3/uL (1.0-4.8) Monocytes # (Auto) 0.5 x10^3/uL (0.0-1.1) Eosinophils # (Auto) 0.1 x10^3/uL (0.0-0.7) Basophils # (Auto) 0.0 x10^3/uL (0.0-0.2) Sodium Level 144 mmol/L (136-145) Potassium Level 4.6 mmol/L (3.5-5.1) Chloride Level 108 mmol/L (98-107) Carbon Dioxide Level 28 mmol/L (21-32) Anion Gap 8 (6-14) Blood Urea Nitrogen 57 mg/dL (8-26) Creatinine 2.6 mg/dL (0.7-1.3) Estimated GFR (Cockcroft-Gault) 25.7 Glucose Level 97 mg/dL (70-99) Calcium Level 8.3 mg/dL (8.5-10.1) Test 02/28/19 06:29 02/28/19 07:40 02/28/19 08:32 02/28/19 08:45 Glucose (Fingerstick) 125 mg/dL (70-99) White Blood Count 9.0 x10^3/uL (4.0-11.0) Red Blood Count 4.12 x10^6/uL (4.30-5.70) Hemoglobin 12.8 g/dL (13.0-17.5) Hematocrit 40.3 % (39.0-53.0) Mean Corpuscular Volume 98 fL (79-100) Mean Corpuscular Hemoglobin 31 pg (25-35) Mean Corpuscular Hemoglobin Concent 32 g/dL (31-37) Red Cell Distribution Width 14.9 % (11.5-14.5) Platelet Count 157 x10^3/uL (140-400) Sodium Level 149 mmol/L (136-145) Potassium Level 4.9 mmol/L (3.5-5.1) Chloride Level 111 mmol/L (98-107) Carbon Dioxide Level 27 mmol/L (21-32) Anion Gap 11 (6-14) Blood Urea Nitrogen 63 mg/dL (8-26) Creatinine 3.2 mg/dL (0.7-1.3) Estimated GFR (Cockcroft-Gault) 20.2 Glucose Level 156 mg/dL (70-99) Calcium Level 8.1 mg/dL (8.5-10.1) Phosphorus Level 6.5 mg/dL (2.6-4.7) Magnesium Level 2.7 mg/dL (1.8-2.4) Amylase Level 31 U/L (25-115) O2 Saturation 94 % (92-99) Arterial Blood pH 7.19 (7.35-7.45) Arterial Blood pCO2 at Patient Temp 64 mmHg (35-46) Arterial Blood pO2 at Patient Temp 76 mmHg (75-108) Arterial Blood HCO3 24 mmol/L (21-28) Arterial Blood Base Excess -5 mmol/L (-3-3) FiO2 100% Urine Collection Type Unknown Urine Color [place] Urine Clarity Turbid Urine pH 5.0 Urine Specific [place] 1.025 Urine Protein >=300 mg/dL (NEG-TRACE) Urine Glucose (UA) Negative mg/dL (NEG) Urine Ketones (Stick) Trace mg/dL (NEG) Urine Blood Large (NEG) Urine Nitrite Negative (NEG) Urine Bilirubin Moderate (NEG) Urine Urobilinogen Dipstick 2.0 mg/dL (0.2 mg/dL) Urine Leukocyte Esterase Small (NEG) Urine RBC >40 /HPF (0-2) Urine WBC Occ /HPF (0-4) Urine Bacteria Few /HPF (0-FEW) Urine Hyaline Casts Moderate /HPF Urine Opiates Screen Neg (NEG) Urine Methadone Screen Neg (NEG) Urine Barbiturates Neg (NEG) Urine Phencyclidine Screen Neg (NEG) Urine Amphetamine/Methamphetamine Neg (NEG) Urine Benzodiazepines Screen Neg (NEG) Urine Cocaine Screen Neg (NEG) Urine Cannabinoids Screen Neg (NEG) Urine Ethyl Alcohol Neg (NEG) Test 02/28/19 09:00 Ionized Calcium 1.10 mmol/L (1.13-1.32) Laboratory Tests Test 02/27/19 11:40 02/27/19 11:55 02/27/19 14:56 02/27/19 14:57 White Blood Count 4.9 x10^3/uL (4.0-11.0) Red Blood Count 4.23 x10^6/uL (4.30-5.70) Hemoglobin 12.6 g/dL (13.0-17.5) Hematocrit 40.8 % (39.0-53.0) Mean Corpuscular Volume 97 fL (79-100) Mean Corpuscular Hemoglobin 30 pg (25-35) Mean Corpuscular Hemoglobin Concent 31 g/dL (31-37) Red Cell Distribution Width 14.8 % (11.5-14.5) Platelet Count 158 x10^3/uL (140-400) Neutrophils (%) (Auto) 76 % (31-73) Lymphocytes (%) (Auto) 14 % (24-48) Monocytes (%) (Auto) 9 % (0-9) Eosinophils (%) (Auto) 1 % (0-3) Basophils (%) (Auto) 0 % (0-3) Neutrophils # (Auto) 3.7 x10^3uL (1.8-7.7) Lymphocytes # (Auto) 0.7 x10^3/uL (1.0-4.8) Monocytes # (Auto) 0.5 x10^3/uL (0.0-1.1) Eosinophils # (Auto) 0.1 x10^3/uL (0.0-0.7) Basophils # (Auto) 0.0 x10^3/uL (0.0-0.2) Prothrombin Time 15.0 SEC (11.7-14.0) Prothromb Time International Ratio 1.2 (0.8-1.1) Activated Partial Thromboplast Time 31 SEC (24-38) Sodium Level 143 mmol/L (136-145) Potassium Level 4.6 mmol/L (3.5-5.1) Chloride Level 109 mmol/L (98-107) Carbon Dioxide Level 26 mmol/L (21-32) Anion Gap 8 (6-14) Blood Urea Nitrogen 55 mg/dL (8-26) Creatinine 2.4 mg/dL (0.7-1.3) Estimated GFR (Cockcroft-Gault) 28.1 BUN/Creatinine Ratio 23 (6-20) Glucose Level 76 mg/dL (70-99) Lactic Acid Level 1.3 mmol/L (0.4-2.0) Calcium Level 8.3 mg/dL (8.5-10.1) Magnesium Level 2.6 mg/dL (1.8-2.4) Total Bilirubin 0.4 mg/dL (0.2-1.0) Aspartate Amino Transf (AST/SGOT) 20 U/L (15-37) Alanine Aminotransferase (ALT/SGPT) 21 U/L (16-63) Alkaline Phosphatase 102 U/L (46-116) Creatine Kinase 353 U/L (39-308) Creatine Kinase MB (Mass) 2.8 ng/mL (0.0-3.6) Creatine Kinase MB Relative Index 0.8 % (0-4) Troponin I Quantitative 0.052 ng/mL (0.000-0.055) KJ-Zet-E-Type Natriuretic Peptide 4347 pg/mL (0-124) Total Protein 7.3 g/dL (6.4-8.2) Albumin 3.2 g/dL (3.4-5.0) Albumin/Globulin Ratio 0.8 (1.0-1.7) Lipase 80 U/L (73-393) Thyroid Stimulating Hormone (TSH) 2.599 uIU/mL (0.358-3.74) Influenza Type A Antigen Negative (NEGATIVE) Influenza Type B Antigen Negative (NEGATIVE) Glucose (Fingerstick) 32 mg/dL (70-99) 34 mg/dL (70-99) Test 02/27/19 15:33 02/27/19 16:18 02/27/19 17:22 02/27/19 18:27 Glucose (Fingerstick) 59 mg/dL (70-99) 70 mg/dL (70-99) 53 mg/dL (70-99) 84 mg/dL (70-99) Test 02/27/19 20:35 02/27/19 20:56 02/27/19 22:30 02/28/19 03:35 Glucose (Fingerstick) 64 mg/dL (70-99) 67 mg/dL (70-99) 83 mg/dL (70-99) White Blood Count 5.5 x10^3/uL (4.0-11.0) Red Blood Count 4.12 x10^6/uL (4.30-5.70) Hemoglobin 12.5 g/dL (13.0-17.5) Hematocrit 40.0 % (39.0-53.0) Mean Corpuscular Volume 97 fL (79-100) Mean Corpuscular Hemoglobin 30 pg (25-35) Mean Corpuscular Hemoglobin Concent 31 g/dL (31-37) Red Cell Distribution Width 15.1 % (11.5-14.5) Platelet Count 181 x10^3/uL (140-400) Neutrophils (%) (Auto) 71 % (31-73) Lymphocytes (%) (Auto) 18 % (24-48) Monocytes (%) (Auto) 9 % (0-9) Eosinophils (%) (Auto) 2 % (0-3) Basophils (%) (Auto) 1 % (0-3) Neutrophils # (Auto) 3.9 x10^3uL (1.8-7.7) Lymphocytes # (Auto) 1.0 x10^3/uL (1.0-4.8) Monocytes # (Auto) 0.5 x10^3/uL (0.0-1.1) Eosinophils # (Auto) 0.1 x10^3/uL (0.0-0.7) Basophils # (Auto) 0.0 x10^3/uL (0.0-0.2) Sodium Level 144 mmol/L (136-145) Potassium Level 4.6 mmol/L (3.5-5.1) Chloride Level 108 mmol/L (98-107) Carbon Dioxide Level 28 mmol/L (21-32) Anion Gap 8 (6-14) Blood Urea Nitrogen 57 mg/dL (8-26) Creatinine 2.6 mg/dL (0.7-1.3) Estimated GFR (Cockcroft-Gault) 25.7 Glucose Level 97 mg/dL (70-99) Calcium Level 8.3 mg/dL (8.5-10.1) Test 02/28/19 06:29 02/28/19 07:40 02/28/19 08:32 02/28/19 08:45 Glucose (Fingerstick) 125 mg/dL (70-99) White Blood Count 9.0 x10^3/uL (4.0-11.0) Red Blood Count 4.12 x10^6/uL (4.30-5.70) Hemoglobin 12.8 g/dL (13.0-17.5) Hematocrit 40.3 % (39.0-53.0) Mean Corpuscular Volume 98 fL (79-100) Mean Corpuscular Hemoglobin 31 pg (25-35) Mean Corpuscular Hemoglobin Concent 32 g/dL (31-37) Red Cell Distribution Width 14.9 % (11.5-14.5) Platelet Count 157 x10^3/uL (140-400) Sodium Level 149 mmol/L (136-145) Potassium Level 4.9 mmol/L (3.5-5.1) Chloride Level 111 mmol/L (98-107) Carbon Dioxide Level 27 mmol/L (21-32) Anion Gap 11 (6-14) Blood Urea Nitrogen 63 mg/dL (8-26) Creatinine 3.2 mg/dL (0.7-1.3) Estimated GFR (Cockcroft-Gault) 20.2 Glucose Level 156 mg/dL (70-99) Calcium Level 8.1 mg/dL (8.5-10.1) Phosphorus Level 6.5 mg/dL (2.6-4.7) Magnesium Level 2.7 mg/dL (1.8-2.4) Amylase Level 31 U/L (25-115) O2 Saturation 94 % (92-99) Arterial Blood pH 7.19 (7.35-7.45) Arterial Blood pCO2 at Patient Temp 64 mmHg (35-46) Arterial Blood pO2 at Patient Temp 76 mmHg (75-108) Arterial Blood HCO3 24 mmol/L (21-28) Arterial Blood Base Excess -5 mmol/L (-3-3) FiO2 100% Urine Collection Type Unknown Urine Color [place] Urine Clarity Turbid Urine pH 5.0 Urine Specific [place] 1.025 Urine Protein >=300 mg/dL (NEG-TRACE) Urine Glucose (UA) Negative mg/dL (NEG) Urine Ketones (Stick) Trace mg/dL (NEG) Urine Blood Large (NEG) Urine Nitrite Negative (NEG) Urine Bilirubin Moderate (NEG) Urine Urobilinogen Dipstick 2.0 mg/dL (0.2 mg/dL) Urine Leukocyte Esterase Small (NEG) Urine RBC >40 /HPF (0-2) Urine WBC Occ /HPF (0-4) Urine Bacteria Few /HPF (0-FEW) Urine Hyaline Casts Moderate /HPF Urine Opiates Screen Neg (NEG) Urine Methadone Screen Neg (NEG) Urine Barbiturates Neg (NEG) Urine Phencyclidine Screen Neg (NEG) Urine Amphetamine/Methamphetamine Neg (NEG) Urine Benzodiazepines Screen Neg (NEG) Urine Cocaine Screen Neg (NEG) Urine Cannabinoids Screen Neg (NEG) Urine Ethyl Alcohol Neg (NEG) Test 02/28/19 09:00 Ionized Calcium 1.10 mmol/L (1.13-1.32) Medications Current Medications Ondansetron HCl (Zofran) 4 mg PRN Q8HRS PRN IV NAUSEA/VOMITING; Start 02/27/19 at 16:45; Stop 02/28/19 at 16:44 Morphine Sulfate (Morphine Sulfate) 2 mg PRN Q2HR PRN IV PAIN; Start 02/27/19 at 16:45; Stop 02/28/19 at 16:44 Acetaminophen (Tylenol) 650 mg PRN Q4HRS PRN PO FEVER Last administered on 02/27at 21:06; Start 02/27/19 at 16:45; Stop 02/28/19 at 16:44 Dextrose (Dextrose 50%-Water Syringe) 12.5 gm PRN Q15MIN PRN IV SEE COMMENTS; Start 02/27/19 at 16:45 Heparin Sodium (Porcine) (Heparin Sodium) 5,000 unit Q8HRS SQ Last administered on 02/28/19at 05:35; Start 02/27/19 at 17:00 Lorazepam (Ativan) 1 mg PRN Q8HRS PRN IV ANXIETY / AGITATION Last administered on 02/28/19at 02:57; Start 02/28/19 at 02:45 Etomidate (Amidate) 20 mg STK-MED ONCE IV ; Start 02/28/19 at 06:59; Stop at 07:00; Status DC Rocuronium [place] (Zemuron) 50 mg STK-MED ONCE .ROUTE ; Start 02/28/19 at 07:00 ; Stop 02/28/19 at 09:42; Status DC Dopamine HCl/ Dextrose 250 ml @ 12.266 mls/ hr CONT PRN IV SEE I/O RECORD Last administered on 02/28/19at 08:06; Start 02/28/19 at 07:15 Fentanyl Citrate 30 ml @ 0 mls/hr CONT PRN IV SEE PROTOCOL; Start 02/28/19 at 07:15; Stop 02/28/19 at 07:59; Status DC Propofol 100 ml @ 0 mls/hr CONT PRN IV SEE PROTOCOL; Start 02/28/19 at 07:15; Stop 02/28/19 at 07:59; Status DC Fentanyl Citrate (Fentanyl 2ml Vial) 25 mcg PRN Q1HR PRN IV SEE COMMENTS; Start 02/28/19 at 07:15; Stop 02/28/19 at 07:59; Status DC Fentanyl Citrate (Fentanyl 2ml Vial) 50 mcg PRN Q1HR PRN IV SEE COMMENTS; Start 02/28/19 at 07:15; Stop 02/28/19 at 07:59; Status DC Midazolam HCl 100 ml @ 0 mls/hr CONT PRN IV SEE PROTOCOL Last administered on at 08:14; Start 02/28/19 at 07:15 Sodium Chloride 1,000 ml @ 1,000 mls/hr Q1H IV Last administered on 02/28/19at 07:32; Start 02/28/19 at 07:32; Stop 02/28/19 at 10:09; Status DC Fentanyl Citrate (Fentanyl 2ml Vial) 25 mcg PRN Q30MIN PRN IV see comments; Start 02/28/19 at 07:45; Stop 02/28/19 at 09:42; Status DC Lorazepam (Ativan) 1 mg PRN Q30MIN PRN IV SEDATION; Start 02/28/19 at 07:45; Stop 02/28/19 at 09:42; Status DC Fentanyl Citrate 30 ml @ 2.5 mls/hr CONT PRN PRN IV SEE I/O RECORD Last administered on 02/28/19at 08:08; Start 02/28/19 at 07:45 Propofol 100 ml @ 0 mls/hr CONT PRN IV SEE I/O RECORD; Start 02/28/19 at 07:45 Vecuronium [place] (Norcuron Bolus) 10 mg PRN Q30MIN PRN IV SHIVERING; Start at 07:45; Stop 02/28/19 at 09:42; Status DC Meperidine HCl (Demerol) 12.5 mg PRN Q30MIN PRN IV SHIVERING; Start 02/28/19 at 07:45; Stop 02/28/19 at 09:42; Status DC Multi-Ingred Cream/Lotion/Oil/ Oint (Artificial Tears Eye Ointment) 1 jennifer PRN Q6HRS PRN OU 0.5 INCH FOR DRY EYE; Start 02/28/19 at 07:45; Stop 02/28/19 at 09 :42; Status DC Famotidine (Pepcid Vial) 20 mg BID IVP ; Start 02/28/19 at 09:00 Aspirin (Aspirin) 300 mg DAILY [place] ; Start 02/28/19 at 09:00; Stop 02/28/19 at 09 :42; Status DC Sodium Chloride (Normal Saline Flush) 3 ml QSHIFT PRN IV AFTER MEDS AND BLOOD DRAWS; Start 02/28/19 at 07:45 Acetaminophen (Tylenol) 650 mg Q6HRS NG ; Start 02/28/19 at 12:00; Stop at 12:00; Status DC Acetaminophen (Tylenol Supp) 650 mg PRN Q6HRS PRN [place] MILD PAIN / TEMP; Start at 07:45; Stop 03/01/19 at 07:45; Status DC Acetaminophen (Tylenol) 650 mg PRN Q6HRS PRN NG MILD PAIN / TEMP; Start at 07:45; Stop 03/01/19 at 07:45; Status DC Info (Icu Electrolyte Protocol) 1 ea DAILY PRN MC PER PROTOCOL; Start 03/02/19 at 07:45; Stop 03/02/19 at 07:45; Status DC Furosemide (Lasix) 60 mg 1X ONCE IVP Last administered on 02/28/19at 08:30; Start 02/28/19 at 08:30; Stop 02/28/19 at 08:31; Status DC Active Scripts Active Reported Proair Hfa Inhaler (Albuterol Sulfate) 8.5 Gm Hfa.aer.ad 1 Puff INH PRN Q6HRS PRN Lantus Solostar (Insulin Glargine,Hum.rec.anlog) 100 Unit/1 Ml Insuln.pen 20 Unit SQ QHS Humalog (Insulin Lispro) 100 Unit/1 Ml Cartridge 6 Unit SQ TIDWMEALS Doxazosin Mesylate 2 Mg Tablet 2 Mg PO DAILY Omeprazole 40 Mg Capsule.dr 40 Mg PO DAILY Amlodipine Besylate 10 Mg Tablet 10 Mg PO DAILY Atorvastatin Calcium 20 Mg Tablet 20 Mg PO DAILY Atenolol 50 Mg Tablet 50 Mg PO DAILY Losartan Potassium 100 Mg Tablet 100 Mg PO DAILY Aspirin 81 Mg Tab.chew 81 Mg PO DAILY Glyburide 5 Mg Tablet 1 Tab PO BID Vitals/I & O Vital Sign - Last 24 Hours 02/27/19 02/27/19 02/27/19 02/27/19 11:28 12:08 12:38 13:08 Temp 97.8 97.8 Pulse 62 58 23 54 Resp 28 20 20 20 B/P (MAP) 126/71 (89) 106/84 (91) 105/55 (72) 113/68 (83) Pulse Ox 86 58 94 94 O2 Delivery Room Air Room Air Room Air Nasal Cannula O2 Flow Rate 3.0 02/27/19 02/27/19 02/27/19 02/27/19 13:38 14:08 15:32 17:28 Pulse 54 54 64 Resp 14 16 28 B/P (MAP) 103/50 (67) 117/64 (81) 131/69 (89) Pulse Ox 93 94 95 O2 Delivery Nasal Cannula Nasal Cannula Nasal Cannula Nasal Cannula O2 Flow Rate 3.0 3.0 3.0 3.0 02/27/19 02/27/19 02/27/19 02/27/19 17:36 19:20 19:57 23:20 Temp 98.3 97.9 98.7 98.3 97.9 98.7 Pulse 60 61 63 Resp 22 22 22 B/P (MAP) 115/55 (75) 111/65 (80) 115/58 (77) Pulse Ox 95 92 95 O2 Delivery Nasal Cannula Nasal Cannula Nasal Cannula Nasal Cannula O2 Flow Rate 3.0 4.0 3.0 4.0 02/28/19 02/28/19 02/28/19 02/28/19 03:25 07:15 08:08 09:32 Temp 98.0 98.0 Pulse 64 Resp 20 16 20 B/P (MAP) 124/73 (90) Pulse Ox 91 95 95 90 O2 Delivery Nasal Cannula Ventilator Ventilator Ventilator O2 Flow Rate 4.0 Intake and Output 02/27/19 02/27/19 02/28/19 15:00 23:00 07:00 Intake Total 120 ml 240 ml Output Total 100 ml Balance 120 ml 140 ml LESLY STOCKTON MD Feb 28, 2019 10:26
[2019-02-28] MEDS ORDERED: CALCIUM CHLORIDE 1,000 MG in IV DEXTROSE 5% 50 ML IV ONE (10:30)
--- NOTE | 2019-02-28 10:32 | PDOC ---
PULMONARY PROGRESS NOTES Vitals Vital Signs Date Time Temp Pulse Resp B/P (MAP) Pulse Ox O2 Delivery O2 Flow Rate FiO2 02/28/19 09:32 20 90 Ventilator 02/28/19 03:25 98.0 64 124/73 (90) 4.0 98.0 Labs Laboratory Tests Test 02/27/19 11:40 02/27/19 11:55 02/27/19 14:56 02/27/19 14:57 White Blood Count 4.9 x10^3/uL (4.0-11.0) Red Blood Count 4.23 x10^6/uL (4.30-5.70) Hemoglobin 12.6 g/dL (13.0-17.5) Hematocrit 40.8 % (39.0-53.0) Mean Corpuscular Volume 97 fL (79-100) Mean Corpuscular Hemoglobin 30 pg (25-35) Mean Corpuscular Hemoglobin Concent 31 g/dL (31-37) Red Cell Distribution Width 14.8 % (11.5-14.5) Platelet Count 158 x10^3/uL (140-400) Neutrophils (%) (Auto) 76 % (31-73) Lymphocytes (%) (Auto) 14 % (24-48) Monocytes (%) (Auto) 9 % (0-9) Eosinophils (%) (Auto) 1 % (0-3) Basophils (%) (Auto) 0 % (0-3) Neutrophils # (Auto) 3.7 x10^3uL (1.8-7.7) Lymphocytes # (Auto) 0.7 x10^3/uL (1.0-4.8) Monocytes # (Auto) 0.5 x10^3/uL (0.0-1.1) Eosinophils # (Auto) 0.1 x10^3/uL (0.0-0.7) Basophils # (Auto) 0.0 x10^3/uL (0.0-0.2) Prothrombin Time 15.0 SEC (11.7-14.0) Prothromb Time International Ratio 1.2 (0.8-1.1) Activated Partial Thromboplast Time 31 SEC (24-38) Sodium Level 143 mmol/L (136-145) Potassium Level 4.6 mmol/L (3.5-5.1) Chloride Level 109 mmol/L (98-107) Carbon Dioxide Level 26 mmol/L (21-32) Anion Gap 8 (6-14) Blood Urea Nitrogen 55 mg/dL (8-26) Creatinine 2.4 mg/dL (0.7-1.3) Estimated GFR (Cockcroft-Gault) 28.1 BUN/Creatinine Ratio 23 (6-20) Glucose Level 76 mg/dL (70-99) Lactic Acid Level 1.3 mmol/L (0.4-2.0) Calcium Level 8.3 mg/dL (8.5-10.1) Magnesium Level 2.6 mg/dL (1.8-2.4) Total Bilirubin 0.4 mg/dL (0.2-1.0) Aspartate Amino Transf (AST/SGOT) 20 U/L (15-37) Alanine Aminotransferase (ALT/SGPT) 21 U/L (16-63) Alkaline Phosphatase 102 U/L (46-116) Creatine Kinase 353 U/L (39-308) Creatine Kinase MB (Mass) 2.8 ng/mL (0.0-3.6) Creatine Kinase MB Relative Index 0.8 % (0-4) Troponin I Quantitative 0.052 ng/mL (0.000-0.055) CA-Pkk-O-Type Natriuretic Peptide 4347 pg/mL (0-124) Total Protein 7.3 g/dL (6.4-8.2) Albumin 3.2 g/dL (3.4-5.0) Albumin/Globulin Ratio 0.8 (1.0-1.7) Lipase 80 U/L (73-393) Thyroid Stimulating Hormone (TSH) 2.599 uIU/mL (0.358-3.74) Influenza Type A Antigen Negative (NEGATIVE) Influenza Type B Antigen Negative (NEGATIVE) Glucose (Fingerstick) 32 mg/dL (70-99) 34 mg/dL (70-99) Test 02/27/19 15:33 02/27/19 16:18 02/27/19 17:22 02/27/19 18:27 Glucose (Fingerstick) 59 mg/dL (70-99) 70 mg/dL (70-99) 53 mg/dL (70-99) 84 mg/dL (70-99) Test 02/27/19 20:35 02/27/19 20:56 02/27/19 22:30 02/28/19 03:35 Glucose (Fingerstick) 64 mg/dL (70-99) 67 mg/dL (70-99) 83 mg/dL (70-99) White Blood Count 5.5 x10^3/uL (4.0-11.0) Red Blood Count 4.12 x10^6/uL (4.30-5.70) Hemoglobin 12.5 g/dL (13.0-17.5) Hematocrit 40.0 % (39.0-53.0) Mean Corpuscular Volume 97 fL (79-100) Mean Corpuscular Hemoglobin 30 pg (25-35) Mean Corpuscular Hemoglobin Concent 31 g/dL (31-37) Red Cell Distribution Width 15.1 % (11.5-14.5) Platelet Count 181 x10^3/uL (140-400) Neutrophils (%) (Auto) 71 % (31-73) Lymphocytes (%) (Auto) 18 % (24-48) Monocytes (%) (Auto) 9 % (0-9) Eosinophils (%) (Auto) 2 % (0-3) Basophils (%) (Auto) 1 % (0-3) Neutrophils # (Auto) 3.9 x10^3uL (1.8-7.7) Lymphocytes # (Auto) 1.0 x10^3/uL (1.0-4.8) Monocytes # (Auto) 0.5 x10^3/uL (0.0-1.1) Eosinophils # (Auto) 0.1 x10^3/uL (0.0-0.7) Basophils # (Auto) 0.0 x10^3/uL (0.0-0.2) Sodium Level 144 mmol/L (136-145) Potassium Level 4.6 mmol/L (3.5-5.1) Chloride Level 108 mmol/L (98-107) Carbon Dioxide Level 28 mmol/L (21-32) Anion Gap 8 (6-14) Blood Urea Nitrogen 57 mg/dL (8-26) Creatinine 2.6 mg/dL (0.7-1.3) Estimated GFR (Cockcroft-Gault) 25.7 Glucose Level 97 mg/dL (70-99) Calcium Level 8.3 mg/dL (8.5-10.1) Test 02/28/19 06:29 02/28/19 07:40 02/28/19 08:32 02/28/19 08:45 Glucose (Fingerstick) 125 mg/dL (70-99) White Blood Count 9.0 x10^3/uL (4.0-11.0) Red Blood Count 4.12 x10^6/uL (4.30-5.70) Hemoglobin 12.8 g/dL (13.0-17.5) Hematocrit 40.3 % (39.0-53.0) Mean Corpuscular Volume 98 fL (79-100) Mean Corpuscular Hemoglobin 31 pg (25-35) Mean Corpuscular Hemoglobin Concent 32 g/dL (31-37) Red Cell Distribution Width 14.9 % (11.5-14.5) Platelet Count 157 x10^3/uL (140-400) Sodium Level 149 mmol/L (136-145) Potassium Level 4.9 mmol/L (3.5-5.1) Chloride Level 111 mmol/L (98-107) Carbon Dioxide Level 27 mmol/L (21-32) Anion Gap 11 (6-14) Blood Urea Nitrogen 63 mg/dL (8-26) Creatinine 3.2 mg/dL (0.7-1.3) Estimated GFR (Cockcroft-Gault) 20.2 Glucose Level 156 mg/dL (70-99) Calcium Level 8.1 mg/dL (8.5-10.1) Phosphorus Level 6.5 mg/dL (2.6-4.7) Magnesium Level 2.7 mg/dL (1.8-2.4) Amylase Level 31 U/L (25-115) O2 Saturation 94 % (92-99) Arterial Blood pH 7.19 (7.35-7.45) Arterial Blood pCO2 at Patient Temp 64 mmHg (35-46) Arterial Blood pO2 at Patient Temp 76 mmHg (75-108) Arterial Blood HCO3 24 mmol/L (21-28) Arterial Blood Base Excess -5 mmol/L (-3-3) FiO2 100% Urine Collection Type Unknown Urine Color Polk Urine Clarity Turbid Urine pH 5.0 Urine Specific Elliott 1.025 Urine Protein >=300 mg/dL (NEG-TRACE) Urine Glucose (UA) Negative mg/dL (NEG) Urine Ketones (Stick) Trace mg/dL (NEG) Urine Blood Large (NEG) Urine Nitrite Negative (NEG) Urine Bilirubin Moderate (NEG) Urine Urobilinogen Dipstick 2.0 mg/dL (0.2 mg/dL) Urine Leukocyte Esterase Small (NEG) Urine RBC >40 /HPF (0-2) Urine WBC Occ /HPF (0-4) Urine Bacteria Few /HPF (0-FEW) Urine Hyaline Casts Moderate /HPF Urine Opiates Screen Neg (NEG) Urine Methadone Screen Neg (NEG) Urine Barbiturates Neg (NEG) Urine Phencyclidine Screen Neg (NEG) Urine Amphetamine/Methamphetamine Neg (NEG) Urine Benzodiazepines Screen Neg (NEG) Urine Cocaine Screen Neg (NEG) Urine Cannabinoids Screen Neg (NEG) Urine Ethyl Alcohol Neg (NEG) Test 02/28/19 09:00 Ionized Calcium 1.10 mmol/L (1.13-1.32) Laboratory Tests Test 02/27/19 11:40 02/27/19 11:55 02/27/19 14:56 02/27/19 14:57 White Blood Count 4.9 x10^3/uL (4.0-11.0) Red Blood Count 4.23 x10^6/uL (4.30-5.70) Hemoglobin 12.6 g/dL (13.0-17.5) Hematocrit 40.8 % (39.0-53.0) Mean Corpuscular Volume 97 fL (79-100) Mean Corpuscular Hemoglobin 30 pg (25-35) Mean Corpuscular Hemoglobin Concent 31 g/dL (31-37) Red Cell Distribution Width 14.8 % (11.5-14.5) Platelet Count 158 x10^3/uL (140-400) Neutrophils (%) (Auto) 76 % (31-73) Lymphocytes (%) (Auto) 14 % (24-48) Monocytes (%) (Auto) 9 % (0-9) Eosinophils (%) (Auto) 1 % (0-3) Basophils (%) (Auto) 0 % (0-3) Neutrophils # (Auto) 3.7 x10^3uL (1.8-7.7) Lymphocytes # (Auto) 0.7 x10^3/uL (1.0-4.8) Monocytes # (Auto) 0.5 x10^3/uL (0.0-1.1) Eosinophils # (Auto) 0.1 x10^3/uL (0.0-0.7) Basophils # (Auto) 0.0 x10^3/uL (0.0-0.2) Prothrombin Time 15.0 SEC (11.7-14.0) Prothromb Time International Ratio 1.2 (0.8-1.1) Activated Partial Thromboplast Time 31 SEC (24-38) Sodium Level 143 mmol/L (136-145) Potassium Level 4.6 mmol/L (3.5-5.1) Chloride Level 109 mmol/L (98-107) Carbon Dioxide Level 26 mmol/L (21-32) Anion Gap 8 (6-14) Blood Urea Nitrogen 55 mg/dL (8-26) Creatinine 2.4 mg/dL (0.7-1.3) Estimated GFR (Cockcroft-Gault) 28.1 BUN/Creatinine Ratio 23 (6-20) Glucose Level 76 mg/dL (70-99) Lactic Acid Level 1.3 mmol/L (0.4-2.0) Calcium Level 8.3 mg/dL (8.5-10.1) Magnesium Level 2.6 mg/dL (1.8-2.4) Total Bilirubin 0.4 mg/dL (0.2-1.0) Aspartate Amino Transf (AST/SGOT) 20 U/L (15-37) Alanine Aminotransferase (ALT/SGPT) 21 U/L (16-63) Alkaline Phosphatase 102 U/L (46-116) Creatine Kinase 353 U/L (39-308) Creatine Kinase MB (Mass) 2.8 ng/mL (0.0-3.6) Creatine Kinase MB Relative Index 0.8 % (0-4) Troponin I Quantitative 0.052 ng/mL (0.000-0.055) WY-Ccz-W-Type Natriuretic Peptide 4347 pg/mL (0-124) Total Protein 7.3 g/dL (6.4-8.2) Albumin 3.2 g/dL (3.4-5.0) Albumin/Globulin Ratio 0.8 (1.0-1.7) Lipase 80 U/L (73-393) Thyroid Stimulating Hormone (TSH) 2.599 uIU/mL (0.358-3.74) Influenza Type A Antigen Negative (NEGATIVE) Influenza Type B Antigen Negative (NEGATIVE) Glucose (Fingerstick) 32 mg/dL (70-99) 34 mg/dL (70-99) Test 02/27/19 15:33 02/27/19 16:18 02/27/19 17:22 02/27/19 18:27 Glucose (Fingerstick) 59 mg/dL (70-99) 70 mg/dL (70-99) 53 mg/dL (70-99) 84 mg/dL (70-99) Test 02/27/19 20:35 02/27/19 20:56 02/27/19 22:30 02/28/19 03:35 Glucose (Fingerstick) 64 mg/dL (70-99) 67 mg/dL (70-99) 83 mg/dL (70-99) White Blood Count 5.5 x10^3/uL (4.0-11.0) Red Blood Count 4.12 x10^6/uL (4.30-5.70) Hemoglobin 12.5 g/dL (13.0-17.5) Hematocrit 40.0 % (39.0-53.0) Mean Corpuscular Volume 97 fL (79-100) Mean Corpuscular Hemoglobin 30 pg (25-35) Mean Corpuscular Hemoglobin Concent 31 g/dL (31-37) Red Cell Distribution Width 15.1 % (11.5-14.5) Platelet Count 181 x10^3/uL (140-400) Neutrophils (%) (Auto) 71 % (31-73) Lymphocytes (%) (Auto) 18 % (24-48) Monocytes (%) (Auto) 9 % (0-9) Eosinophils (%) (Auto) 2 % (0-3) Basophils (%) (Auto) 1 % (0-3) Neutrophils # (Auto) 3.9 x10^3uL (1.8-7.7) Lymphocytes # (Auto) 1.0 x10^3/uL (1.0-4.8) Monocytes # (Auto) 0.5 x10^3/uL (0.0-1.1) Eosinophils # (Auto) 0.1 x10^3/uL (0.0-0.7) Basophils # (Auto) 0.0 x10^3/uL (0.0-0.2) Sodium Level 144 mmol/L (136-145) Potassium Level 4.6 mmol/L (3.5-5.1) Chloride Level 108 mmol/L (98-107) Carbon Dioxide Level 28 mmol/L (21-32) Anion Gap 8 (6-14) Blood Urea Nitrogen 57 mg/dL (8-26) Creatinine 2.6 mg/dL (0.7-1.3) Estimated GFR (Cockcroft-Gault) 25.7 Glucose Level 97 mg/dL (70-99) Calcium Level 8.3 mg/dL (8.5-10.1) Test 02/28/19 06:29 02/28/19 07:40 02/28/19 08:32 02/28/19 08:45 Glucose (Fingerstick) 125 mg/dL (70-99) White Blood Count 9.0 x10^3/uL (4.0-11.0) Red Blood Count 4.12 x10^6/uL (4.30-5.70) Hemoglobin 12.8 g/dL (13.0-17.5) Hematocrit 40.3 % (39.0-53.0) Mean Corpuscular Volume 98 fL (79-100) Mean Corpuscular Hemoglobin 31 pg (25-35) Mean Corpuscular Hemoglobin Concent 32 g/dL (31-37) Red Cell Distribution Width 14.9 % (11.5-14.5) Platelet Count 157 x10^3/uL (140-400) Sodium Level 149 mmol/L (136-145) Potassium Level 4.9 mmol/L (3.5-5.1) Chloride Level 111 mmol/L (98-107) Carbon Dioxide Level 27 mmol/L (21-32) Anion Gap 11 (6-14) Blood Urea Nitrogen 63 mg/dL (8-26) Creatinine 3.2 mg/dL (0.7-1.3) Estimated GFR (Cockcroft-Gault) 20.2 Glucose Level 156 mg/dL (70-99) Calcium Level 8.1 mg/dL (8.5-10.1) Phosphorus Level 6.5 mg/dL (2.6-4.7) Magnesium Level 2.7 mg/dL (1.8-2.4) Amylase Level 31 U/L (25-115) O2 Saturation 94 % (92-99) Arterial Blood pH 7.19 (7.35-7.45) Arterial Blood pCO2 at Patient Temp 64 mmHg (35-46) Arterial Blood pO2 at Patient Temp 76 mmHg (75-108) Arterial Blood HCO3 24 mmol/L (21-28) Arterial Blood Base Excess -5 mmol/L (-3-3) FiO2 100% Urine Collection Type Unknown Urine Color Polk Urine Clarity Turbid Urine pH 5.0 Urine Specific Elliott 1.025 Urine Protein >=300 mg/dL (NEG-TRACE) Urine Glucose (UA) Negative mg/dL (NEG) Urine Ketones (Stick) Trace mg/dL (NEG) Urine Blood Large (NEG) Urine Nitrite Negative (NEG) Urine Bilirubin Moderate (NEG) Urine Urobilinogen Dipstick 2.0 mg/dL (0.2 mg/dL) Urine Leukocyte Esterase Small (NEG) Urine RBC >40 /HPF (0-2) Urine WBC Occ /HPF (0-4) Urine Bacteria Few /HPF (0-FEW) Urine Hyaline Casts Moderate /HPF Urine Opiates Screen Neg (NEG) Urine Methadone Screen Neg (NEG) Urine Barbiturates Neg (NEG) Urine Phencyclidine Screen Neg (NEG) Urine Amphetamine/Methamphetamine Neg (NEG) Urine Benzodiazepines Screen Neg (NEG) Urine Cocaine Screen Neg (NEG) Urine Cannabinoids Screen Neg (NEG) Urine Ethyl Alcohol Neg (NEG) Test 02/28/19 09:00 Ionized Calcium 1.10 mmol/L (1.13-1.32) Medications Active Scripts Medications Dose Route/Sig Max Daily Dose Days Date Category Proair Hfa Inhaler (Albuterol Sulfate) 8.5 Gm Hfa.aer.ad 1 Puff INH PRN Q6HRS PRN 02/27/19 Reported Lantus Solostar (Insulin Glargine,Hum.rec.anlog) 100 Unit/1 Ml Insuln.pen 20 Unit SQ QHS 02/27/19 Reported Humalog (Insulin Lispro) 100 Unit/1 Ml Cartridge 6 Unit SQ TIDWMEALS 02/27/19 Reported Doxazosin Mesylate 2 Mg Tablet 2 Mg PO DAILY 02/27/19 Reported Omeprazole 40 Mg Capsule.dr 40 Mg PO DAILY 02/27/19 Reported Amlodipine Besylate 10 Mg Tablet 10 Mg PO DAILY 02/27/19 Reported Atorvastatin Calcium 20 Mg Tablet 20 Mg PO DAILY 02/27/19 Reported Atenolol 50 Mg Tablet 50 Mg PO DAILY 02/27/19 Reported Losartan Potassium 100 Mg Tablet 100 Mg PO DAILY 02/27/19 Reported Aspirin 81 Mg Tab.chew 81 Mg PO DAILY 02/27/19 Reported Glyburide 5 Mg Tablet 1 Tab PO BID 11/09/16 Reported Impression . NOTE DICTATED A/C RF MULTIFACTORIAL SEE ORDERS SEPSIS? PE IN DDX UNABLE TO PERFORM A CT ANGIO, WILL CHECK VENOUS DOPPLER D/C MAGO LOWE MD Feb 28, 2019 10:32
[2019-02-28] MEDS ORDERED: cefTRIAXone IV Push 1 GM VIAL. IVP SCH (11:00)
--- NOTE | 2019-02-28 11:09 | PDOC2 ---
CONSULT Date of Consult Date of Consult DATE: 02/28/19 TIME: 11:09 Reason for Consult Reason for Consult: Congestive heart failure Referring Physician Referring Physician: Dr. Acuna Identification/Chief Complaint Chief Complaint Shortness of breath Source Source: Chart review History of Present Illness Reason for Visit: 58-year-old male presented with progressive shortness of breath, lower extremity edema and scrotal swelling. Last night, his shortness of breath got worse and he had to be intubated for acute respiratory failure. No significant history can be obtained at this time but review of ED notes did not show any complaints of chest pain, palpitations or syncope. Past Medical History Cardiovascular: HTN Endocrine: Diabetes Past Surgical History Past Surgical History: Tonsillectomy, Other (right BKA) Family History Family History: Diabetes, Hypertension, Osteo Arthiritis Social History No ALCOHOL: none Drugs: None Lives: Roommate Current Problem List Problem List Problems Medical Problems: (1) Acute renal failure Status: Acute (2) Edema Status: Acute (3) Shortness of breath Status: Acute Current Medications Current Medications Current Medications Ondansetron HCl (Zofran) 4 mg PRN Q8HRS PRN IV NAUSEA/VOMITING; Start 02/27/19 at 16:45; Stop 02/28/19 at 16:44 Morphine Sulfate (Morphine Sulfate) 2 mg PRN Q2HR PRN IV PAIN; Start 02/27/19 at 16:45; Stop 02/28/19 at 16:44 Acetaminophen (Tylenol) 650 mg PRN Q4HRS PRN PO FEVER Last administered on 02/27at 21:06; Start 02/27/19 at 16:45; Stop 02/28/19 at 16:44 Dextrose (Dextrose 50%-Water Syringe) 12.5 gm PRN Q15MIN PRN IV SEE COMMENTS; Start 02/27/19 at 16:45 Heparin Sodium (Porcine) (Heparin Sodium) 5,000 unit Q8HRS SQ Last administered on 02/28/19at 05:35; Start 02/27/19 at 17:00 Lorazepam (Ativan) 1 mg PRN Q8HRS PRN IV ANXIETY / AGITATION Last administered on 02/28/19at 02:57; Start 02/28/19 at 02:45 Etomidate (Amidate) 20 mg STK-MED ONCE IV ; Start 02/28/19 at 06:59; Stop at 07:00; Status DC Rocuronium [place] (Zemuron) 50 mg STK-MED ONCE .ROUTE ; Start 02/28/19 at 07:00 ; Stop 02/28/19 at 09:42; Status DC Dopamine HCl/ Dextrose 250 ml @ 12.266 mls/ hr CONT PRN IV SEE I/O RECORD Last administered on 02/28/19at 08:06; Start 02/28/19 at 07:15 Fentanyl Citrate 30 ml @ 0 mls/hr CONT PRN IV SEE PROTOCOL; Start 02/28/19 at 07:15; Stop 02/28/19 at 07:59; Status DC Propofol 100 ml @ 0 mls/hr CONT PRN IV SEE PROTOCOL; Start 02/28/19 at 07:15; Stop 02/28/19 at 07:59; Status DC Fentanyl Citrate (Fentanyl 2ml Vial) 25 mcg PRN Q1HR PRN IV SEE COMMENTS; Start 02/28/19 at 07:15; Stop 02/28/19 at 07:59; Status DC Fentanyl Citrate (Fentanyl 2ml Vial) 50 mcg PRN Q1HR PRN IV SEE COMMENTS; Start 02/28/19 at 07:15; Stop 02/28/19 at 07:59; Status DC Midazolam HCl 100 ml @ 0 mls/hr CONT PRN IV SEE PROTOCOL Last administered on at 08:14; Start 02/28/19 at 07:15 Sodium Chloride 1,000 ml @ 1,000 mls/hr Q1H IV Last administered on 02/28/19at 07:32; Start 02/28/19 at 07:32; Stop 02/28/19 at 10:09; Status DC Fentanyl Citrate (Fentanyl 2ml Vial) 25 mcg PRN Q30MIN PRN IV see comments; Start 02/28/19 at 07:45; Stop 02/28/19 at 09:42; Status DC Lorazepam (Ativan) 1 mg PRN Q30MIN PRN IV SEDATION; Start 02/28/19 at 07:45; Stop 02/28/19 at 09:42; Status DC Fentanyl Citrate 30 ml @ 2.5 mls/hr CONT PRN PRN IV SEE I/O RECORD Last administered on 02/28/19at 08:08; Start 02/28/19 at 07:45 Propofol 100 ml @ 0 mls/hr CONT PRN IV SEE I/O RECORD; Start 02/28/19 at 07:45 Vecuronium [place] (Norcuron Bolus) 10 mg PRN Q30MIN PRN IV SHIVERING; Start at 07:45; Stop 02/28/19 at 09:42; Status DC Meperidine HCl (Demerol) 12.5 mg PRN Q30MIN PRN IV SHIVERING; Start 02/28/19 at 07:45; Stop 02/28/19 at 09:42; Status DC Multi-Ingred Cream/Lotion/Oil/ Oint (Artificial Tears Eye Ointment) 1 jennifer PRN Q6HRS PRN OU 0.5 INCH FOR DRY EYE; Start 02/28/19 at 07:45; Stop 02/28/19 at 09 :42; Status DC Famotidine (Pepcid Vial) 20 mg BID IVP Last administered on 02/28/19at 11:03; Start 02/28/19 at 09:00 Aspirin (Aspirin) 300 mg DAILY VT ; Start 02/28/19 at 09:00; Stop 02/28/19 at 09 :42; Status DC Sodium Chloride (Normal Saline Flush) 3 ml QSHIFT PRN IV AFTER MEDS AND BLOOD DRAWS; Start 02/28/19 at 07:45 Acetaminophen (Tylenol) 650 mg Q6HRS NG ; Start 02/28/19 at 12:00; Stop at 12:00; Status DC Acetaminophen (Tylenol Supp) 650 mg PRN Q6HRS PRN VT MILD PAIN / TEMP; Start at 07:45; Stop 03/01/19 at 07:45; Status DC Acetaminophen (Tylenol) 650 mg PRN Q6HRS PRN NG MILD PAIN / TEMP; Start at 07:45; Stop 03/01/19 at 07:45; Status DC Info (Icu Electrolyte Protocol) 1 ea DAILY PRN MC PER PROTOCOL; Start 03/02/19 at 07:45; Stop 03/02/19 at 07:45; Status DC Furosemide (Lasix) 60 mg 1X ONCE IVP Last administered on 02/28/19at 08:30; Start 02/28/19 at 08:30; Stop 02/28/19 at 08:31; Status DC Ceftriaxone Sodium (Rocephin) 1 gm Q24H IVP Last administered on 02/28/19at 11: 03; Start 02/28/19 at 11:00 Calcium Chloride 1000 mg/Dextrose 60 ml @ 120 mls/hr 1X ONCE IV Last administered on 02/28/19at 11:03; Start 02/28/19 at 10:30; Stop 02/28/19 at 10:59 ; Status DC Active Scripts Active Reported Proair Hfa Inhaler (Albuterol Sulfate) 8.5 Gm Hfa.aer.ad 1 Puff INH PRN Q6HRS PRN Lantus Solostar (Insulin Glargine,Hum.rec.anlog) 100 Unit/1 Ml Insuln.pen 20 Unit SQ QHS Humalog (Insulin Lispro) 100 Unit/1 Ml Cartridge 6 Unit SQ TIDWMEALS Doxazosin Mesylate 2 Mg Tablet 2 Mg PO DAILY Omeprazole 40 Mg Capsule.dr 40 Mg PO DAILY Amlodipine Besylate 10 Mg Tablet 10 Mg PO DAILY Atorvastatin Calcium 20 Mg Tablet 20 Mg PO DAILY Atenolol 50 Mg Tablet 50 Mg PO DAILY Losartan Potassium 100 Mg Tablet 100 Mg PO DAILY Aspirin 81 Mg Tab.chew 81 Mg PO DAILY Glyburide 5 Mg Tablet 1 Tab PO BID Allergies Allergies: Coded Allergies: No Known Drug Allergies (Unverified , 11/09/16) ROS Review of System Cannot be obtained since patient is intubated Physical Exam General: Other (intubated and sedated) Lungs: Other (bilateral basal crepitations) Heart: Regular rate Abdomen: Soft Extremities: Other (2+ pitting edema left lower extremity and right below the knee amputation) Vitals VITALS Vital Signs Date Time Temp Pulse Resp B/P (MAP) Pulse Ox O2 Delivery O2 Flow Rate FiO2 02/28/19 11:01 96 Ventilator 02/28/19 10:00 72 20 129/75 (93) 02/28/19 08:00 98.5 98.5 02/28/19 03:25 4.0 Labs Labs Laboratory Tests Test 02/27/19 11:40 02/27/19 11:55 02/27/19 14:56 02/27/19 14:57 White Blood Count 4.9 x10^3/uL (4.0-11.0) Red Blood Count 4.23 x10^6/uL (4.30-5.70) Hemoglobin 12.6 g/dL (13.0-17.5) Hematocrit 40.8 % (39.0-53.0) Mean Corpuscular Volume 97 fL (79-100) Mean Corpuscular Hemoglobin 30 pg (25-35) Mean Corpuscular Hemoglobin Concent 31 g/dL (31-37) Red Cell Distribution Width 14.8 % (11.5-14.5) Platelet Count 158 x10^3/uL (140-400) Neutrophils (%) (Auto) 76 % (31-73) Lymphocytes (%) (Auto) 14 % (24-48) Monocytes (%) (Auto) 9 % (0-9) Eosinophils (%) (Auto) 1 % (0-3) Basophils (%) (Auto) 0 % (0-3) Neutrophils # (Auto) 3.7 x10^3uL (1.8-7.7) Lymphocytes # (Auto) 0.7 x10^3/uL (1.0-4.8) Monocytes # (Auto) 0.5 x10^3/uL (0.0-1.1) Eosinophils # (Auto) 0.1 x10^3/uL (0.0-0.7) Basophils # (Auto) 0.0 x10^3/uL (0.0-0.2) Prothrombin Time 15.0 SEC (11.7-14.0) Prothromb Time International Ratio 1.2 (0.8-1.1) Activated Partial Thromboplast Time 31 SEC (24-38) Sodium Level 143 mmol/L (136-145) Potassium Level 4.6 mmol/L (3.5-5.1) Chloride Level 109 mmol/L (98-107) Carbon Dioxide Level 26 mmol/L (21-32) Anion Gap 8 (6-14) Blood Urea Nitrogen 55 mg/dL (8-26) Creatinine 2.4 mg/dL (0.7-1.3) Estimated GFR (Cockcroft-Gault) 28.1 BUN/Creatinine Ratio 23 (6-20) Glucose Level 76 mg/dL (70-99) Lactic Acid Level 1.3 mmol/L (0.4-2.0) Calcium Level 8.3 mg/dL (8.5-10.1) Magnesium Level 2.6 mg/dL (1.8-2.4) Total Bilirubin 0.4 mg/dL (0.2-1.0) Aspartate Amino Transf (AST/SGOT) 20 U/L (15-37) Alanine Aminotransferase (ALT/SGPT) 21 U/L (16-63) Alkaline Phosphatase 102 U/L (46-116) Creatine Kinase 353 U/L (39-308) Creatine Kinase MB (Mass) 2.8 ng/mL (0.0-3.6) Creatine Kinase MB Relative Index 0.8 % (0-4) Troponin I Quantitative 0.052 ng/mL (0.000-0.055) HS-Cnz-P-Type Natriuretic Peptide 4347 pg/mL (0-124) Total Protein 7.3 g/dL (6.4-8.2) Albumin 3.2 g/dL (3.4-5.0) Albumin/Globulin Ratio 0.8 (1.0-1.7) Lipase 80 U/L (73-393) Thyroid Stimulating Hormone (TSH) 2.599 uIU/mL (0.358-3.74) Influenza Type A Antigen Negative (NEGATIVE) Influenza Type B Antigen Negative (NEGATIVE) Glucose (Fingerstick) 32 mg/dL (70-99) 34 mg/dL (70-99) Test 02/27/19 15:33 02/27/19 16:18 02/27/19 17:22 02/27/19 18:27 Glucose (Fingerstick) 59 mg/dL (70-99) 70 mg/dL (70-99) 53 mg/dL (70-99) 84 mg/dL (70-99) Test 02/27/19 20:35 02/27/19 20:56 02/27/19 22:30 02/28/19 03:35 Glucose (Fingerstick) 64 mg/dL (70-99) 67 mg/dL (70-99) 83 mg/dL (70-99) White Blood Count 5.5 x10^3/uL (4.0-11.0) Red Blood Count 4.12 x10^6/uL (4.30-5.70) Hemoglobin 12.5 g/dL (13.0-17.5) Hematocrit 40.0 % (39.0-53.0) Mean Corpuscular Volume 97 fL (79-100) Mean Corpuscular Hemoglobin 30 pg (25-35) Mean Corpuscular Hemoglobin Concent 31 g/dL (31-37) Red Cell Distribution Width 15.1 % (11.5-14.5) Platelet Count 181 x10^3/uL (140-400) Neutrophils (%) (Auto) 71 % (31-73) Lymphocytes (%) (Auto) 18 % (24-48) Monocytes (%) (Auto) 9 % (0-9) Eosinophils (%) (Auto) 2 % (0-3) Basophils (%) (Auto) 1 % (0-3) Neutrophils # (Auto) 3.9 x10^3uL (1.8-7.7) Lymphocytes # (Auto) 1.0 x10^3/uL (1.0-4.8) Monocytes # (Auto) 0.5 x10^3/uL (0.0-1.1) Eosinophils # (Auto) 0.1 x10^3/uL (0.0-0.7) Basophils # (Auto) 0.0 x10^3/uL (0.0-0.2) Sodium Level 144 mmol/L (136-145) Potassium Level 4.6 mmol/L (3.5-5.1) Chloride Level 108 mmol/L (98-107) Carbon Dioxide Level 28 mmol/L (21-32) Anion Gap 8 (6-14) Blood Urea Nitrogen 57 mg/dL (8-26) Creatinine 2.6 mg/dL (0.7-1.3) Estimated GFR (Cockcroft-Gault) 25.7 Glucose Level 97 mg/dL (70-99) Calcium Level 8.3 mg/dL (8.5-10.1) Test 02/28/19 06:29 02/28/19 07:40 02/28/19 08:32 02/28/19 08:45 Glucose (Fingerstick) 125 mg/dL (70-99) White Blood Count 9.0 x10^3/uL (4.0-11.0) Red Blood Count 4.12 x10^6/uL (4.30-5.70) Hemoglobin 12.8 g/dL (13.0-17.5) Hematocrit 40.3 % (39.0-53.0) Mean Corpuscular Volume 98 fL (79-100) Mean Corpuscular Hemoglobin 31 pg (25-35) Mean Corpuscular Hemoglobin Concent 32 g/dL (31-37) Red Cell Distribution Width 14.9 % (11.5-14.5) Platelet Count 157 x10^3/uL (140-400) Sodium Level 149 mmol/L (136-145) Potassium Level 4.9 mmol/L (3.5-5.1) Chloride Level 111 mmol/L (98-107) Carbon Dioxide Level 27 mmol/L (21-32) Anion Gap 11 (6-14) Blood Urea Nitrogen 63 mg/dL (8-26) Creatinine 3.2 mg/dL (0.7-1.3) Estimated GFR (Cockcroft-Gault) 20.2 Glucose Level 156 mg/dL (70-99) Calcium Level 8.1 mg/dL (8.5-10.1) Phosphorus Level 6.5 mg/dL (2.6-4.7) Magnesium Level 2.7 mg/dL (1.8-2.4) Amylase Level 31 U/L (25-115) O2 Saturation 94 % (92-99) Arterial Blood pH 7.19 (7.35-7.45) Arterial Blood pCO2 at Patient Temp 64 mmHg (35-46) Arterial Blood pO2 at Patient Temp 76 mmHg (75-108) Arterial Blood HCO3 24 mmol/L (21-28) Arterial Blood Base Excess -5 mmol/L (-3-3) FiO2 100% Urine Collection Type Unknown Urine Color Boelus Urine Clarity Turbid Urine pH 5.0 Urine Specific Boelus 1.025 Urine Protein >=300 mg/dL (NEG-TRACE) Urine Glucose (UA) Negative mg/dL (NEG) Urine Ketones (Stick) Trace mg/dL (NEG) Urine Blood Large (NEG) Urine Nitrite Negative (NEG) Urine Bilirubin Moderate (NEG) Urine Urobilinogen Dipstick 2.0 mg/dL (0.2 mg/dL) Urine Leukocyte Esterase Small (NEG) Urine RBC >40 /HPF (0-2) Urine WBC Occ /HPF (0-4) Urine Bacteria Few /HPF (0-FEW) Urine Hyaline Casts Moderate /HPF Urine Opiates Screen Neg (NEG) Urine Methadone Screen Neg (NEG) Urine Barbiturates Neg (NEG) Urine Phencyclidine Screen Neg (NEG) Urine Amphetamine/Methamphetamine Neg (NEG) Urine Benzodiazepines Screen Neg (NEG) Urine Cocaine Screen Neg (NEG) Urine Cannabinoids Screen Neg (NEG) Urine Ethyl Alcohol Neg (NEG) Test 02/28/19 09:00 Ionized Calcium 1.10 mmol/L (1.13-1.32) Laboratory Tests Test 02/27/19 11:40 02/27/19 11:55 02/27/19 14:56 02/27/19 14:57 White Blood Count 4.9 x10^3/uL (4.0-11.0) Red Blood Count 4.23 x10^6/uL (4.30-5.70) Hemoglobin 12.6 g/dL (13.0-17.5) Hematocrit 40.8 % (39.0-53.0) Mean Corpuscular Volume 97 fL (79-100) Mean Corpuscular Hemoglobin 30 pg (25-35) Mean Corpuscular Hemoglobin Concent 31 g/dL (31-37) Red Cell Distribution Width 14.8 % (11.5-14.5) Platelet Count 158 x10^3/uL (140-400) Neutrophils (%) (Auto) 76 % (31-73) Lymphocytes (%) (Auto) 14 % (24-48) Monocytes (%) (Auto) 9 % (0-9) Eosinophils (%) (Auto) 1 % (0-3) Basophils (%) (Auto) 0 % (0-3) Neutrophils # (Auto) 3.7 x10^3uL (1.8-7.7) Lymphocytes # (Auto) 0.7 x10^3/uL (1.0-4.8) Monocytes # (Auto) 0.5 x10^3/uL (0.0-1.1) Eosinophils # (Auto) 0.1 x10^3/uL (0.0-0.7) Basophils # (Auto) 0.0 x10^3/uL (0.0-0.2) Prothrombin Time 15.0 SEC (11.7-14.0) Prothromb Time International Ratio 1.2 (0.8-1.1) Activated Partial Thromboplast Time 31 SEC (24-38) Sodium Level 143 mmol/L (136-145) Potassium Level 4.6 mmol/L (3.5-5.1) Chloride Level 109 mmol/L (98-107) Carbon Dioxide Level 26 mmol/L (21-32) Anion Gap 8 (6-14) Blood Urea Nitrogen 55 mg/dL (8-26) Creatinine 2.4 mg/dL (0.7-1.3) Estimated GFR (Cockcroft-Gault) 28.1 BUN/Creatinine Ratio 23 (6-20) Glucose Level 76 mg/dL (70-99) Lactic Acid Level 1.3 mmol/L (0.4-2.0) Calcium Level 8.3 mg/dL (8.5-10.1) Magnesium Level 2.6 mg/dL (1.8-2.4) Total Bilirubin 0.4 mg/dL (0.2-1.0) Aspartate Amino Transf (AST/SGOT) 20 U/L (15-37) Alanine Aminotransferase (ALT/SGPT) 21 U/L (16-63) Alkaline Phosphatase 102 U/L (46-116) Creatine Kinase 353 U/L (39-308) Creatine Kinase MB (Mass) 2.8 ng/mL (0.0-3.6) Creatine Kinase MB Relative Index 0.8 % (0-4) Troponin I Quantitative 0.052 ng/mL (0.000-0.055) MN-Bii-Z-Type Natriuretic Peptide 4347 pg/mL (0-124) Total Protein 7.3 g/dL (6.4-8.2) Albumin 3.2 g/dL (3.4-5.0) Albumin/Globulin Ratio 0.8 (1.0-1.7) Lipase 80 U/L (73-393) Thyroid Stimulating Hormone (TSH) 2.599 uIU/mL (0.358-3.74) Influenza Type A Antigen Negative (NEGATIVE) Influenza Type B Antigen Negative (NEGATIVE) Glucose (Fingerstick) 32 mg/dL (70-99) 34 mg/dL (70-99) Test 02/27/19 15:33 02/27/19 16:18 02/27/19 17:22 02/27/19 18:27 Glucose (Fingerstick) 59 mg/dL (70-99) 70 mg/dL (70-99) 53 mg/dL (70-99) 84 mg/dL (70-99) Test 02/27/19 20:35 02/27/19 20:56 02/27/19 22:30 02/28/19 03:35 Glucose (Fingerstick) 64 mg/dL (70-99) 67 mg/dL (70-99) 83 mg/dL (70-99) White Blood Count 5.5 x10^3/uL (4.0-11.0) Red Blood Count 4.12 x10^6/uL (4.30-5.70) Hemoglobin 12.5 g/dL (13.0-17.5) Hematocrit 40.0 % (39.0-53.0) Mean Corpuscular Volume 97 fL (79-100) Mean Corpuscular Hemoglobin 30 pg (25-35) Mean Corpuscular Hemoglobin Concent 31 g/dL (31-37) Red Cell Distribution Width 15.1 % (11.5-14.5) Platelet Count 181 x10^3/uL (140-400) Neutrophils (%) (Auto) 71 % (31-73) Lymphocytes (%) (Auto) 18 % (24-48) Monocytes (%) (Auto) 9 % (0-9) Eosinophils (%) (Auto) 2 % (0-3) Basophils (%) (Auto) 1 % (0-3) Neutrophils # (Auto) 3.9 x10^3uL (1.8-7.7) Lymphocytes # (Auto) 1.0 x10^3/uL (1.0-4.8) Monocytes # (Auto) 0.5 x10^3/uL (0.0-1.1) Eosinophils # (Auto) 0.1 x10^3/uL (0.0-0.7) Basophils # (Auto) 0.0 x10^3/uL (0.0-0.2) Sodium Level 144 mmol/L (136-145) Potassium Level 4.6 mmol/L (3.5-5.1) Chloride Level 108 mmol/L (98-107) Carbon Dioxide Level 28 mmol/L (21-32) Anion Gap 8 (6-14) Blood Urea Nitrogen 57 mg/dL (8-26) Creatinine 2.6 mg/dL (0.7-1.3) Estimated GFR (Cockcroft-Gault) 25.7 Glucose Level 97 mg/dL (70-99) Calcium Level 8.3 mg/dL (8.5-10.1) Test 02/28/19 06:29 02/28/19 07:40 02/28/19 08:32 02/28/19 08:45 Glucose (Fingerstick) 125 mg/dL (70-99) White Blood Count 9.0 x10^3/uL (4.0-11.0) Red Blood Count 4.12 x10^6/uL (4.30-5.70) Hemoglobin 12.8 g/dL (13.0-17.5) Hematocrit 40.3 % (39.0-53.0) Mean Corpuscular Volume 98 fL (79-100) Mean Corpuscular Hemoglobin 31 pg (25-35) Mean Corpuscular Hemoglobin Concent 32 g/dL (31-37) Red Cell Distribution Width 14.9 % (11.5-14.5) Platelet Count 157 x10^3/uL (140-400) Sodium Level 149 mmol/L (136-145) Potassium Level 4.9 mmol/L (3.5-5.1) Chloride Level 111 mmol/L (98-107) Carbon Dioxide Level 27 mmol/L (21-32) Anion Gap 11 (6-14) Blood Urea Nitrogen 63 mg/dL (8-26) Creatinine 3.2 mg/dL (0.7-1.3) Estimated GFR (Cockcroft-Gault) 20.2 Glucose Level 156 mg/dL (70-99) Calcium Level 8.1 mg/dL (8.5-10.1) Phosphorus Level 6.5 mg/dL (2.6-4.7) Magnesium Level 2.7 mg/dL (1.8-2.4) Amylase Level 31 U/L (25-115) O2 Saturation 94 % (92-99) Arterial Blood pH 7.19 (7.35-7.45) Arterial Blood pCO2 at Patient Temp 64 mmHg (35-46) Arterial Blood pO2 at Patient Temp 76 mmHg (75-108) Arterial Blood HCO3 24 mmol/L (21-28) Arterial Blood Base Excess -5 mmol/L (-3-3) FiO2 100% Urine Collection Type Unknown Urine Color Boelus Urine Clarity Turbid Urine pH 5.0 Urine Specific Boelus 1.025 Urine Protein >=300 mg/dL (NEG-TRACE) Urine Glucose (UA) Negative mg/dL (NEG) Urine Ketones (Stick) Trace mg/dL (NEG) Urine Blood Large (NEG) Urine Nitrite Negative (NEG) Urine Bilirubin Moderate (NEG) Urine Urobilinogen Dipstick 2.0 mg/dL (0.2 mg/dL) Urine Leukocyte Esterase Small (NEG) Urine RBC >40 /HPF (0-2) Urine WBC Occ /HPF (0-4) Urine Bacteria Few /HPF (0-FEW) Urine Hyaline Casts Moderate /HPF Urine Opiates Screen Neg (NEG) Urine Methadone Screen Neg (NEG) Urine Barbiturates Neg (NEG) Urine Phencyclidine Screen Neg (NEG) Urine Amphetamine/Methamphetamine Neg (NEG) Urine Benzodiazepines Screen Neg (NEG) Urine Cocaine Screen Neg (NEG) Urine Cannabinoids Screen Neg (NEG) Urine Ethyl Alcohol Neg (NEG) Test 02/28/19 09:00 Ionized Calcium 1.10 mmol/L (1.13-1.32) Assessment/Plan Assessment/Plan 1. Acute respiratory failure secondary to congestive heart failure, most probably acute on chronic diastolic. s/p intubation. Myocardial infarction ruled out. Telemetry did not show any significant arrhythmias. Continue diuresis with Lasix. Check 2-D echo to assess LV systolic function. Continue vent management per pulmonary team. 2. Sepsis/aspiration pneumonia: Treat per ID. On low dose dopamine. 3. Acute on chronic renal insufficiency: Nephrology team consulted 4. Diabetes mellitus type 2: Treat per IM Thank you for your consultation ASHUTOSH FINK MD Feb 28, 2019 11:09
[2019-02-28 11:33] LABS: ALBUMIN 3.2 g/dL (3.4-5.0); ALBUMIN/GLOBULIN RATIO 0.7 (1.0-1.7); CALCIUM 8.2 mg/dL (8.5-10.1); CREATININE 3.1 mg/dL (0.7-1.3); GFR 20.9; POTASSIUM 5.2 mmol/L (3.5-5.1); TOTAL BILIRUBIN 0.6 mg/dL (0.2-1.0); TOTAL PROTEIN 7.7 g/dL (6.4-8.2)
--- NOTE | 2019-02-28 11:36 | PDOC ---
Infectious Disease Note Vital Sign Vital Signs Vital Signs Date Time Temp Pulse Resp B/P (MAP) Pulse Ox O2 Delivery O2 Flow Rate FiO2 02/28/19 10:00 72 20 129/75 (93) 92 Ventilator 02/28/19 08:00 98.5 98.5 02/28/19 03:25 4.0 Labs Lab Laboratory Tests Test 02/27/19 11:40 02/27/19 11:55 02/27/19 14:56 02/27/19 14:57 White Blood Count 4.9 x10^3/uL (4.0-11.0) Red Blood Count 4.23 x10^6/uL (4.30-5.70) Hemoglobin 12.6 g/dL (13.0-17.5) Hematocrit 40.8 % (39.0-53.0) Mean Corpuscular Volume 97 fL (79-100) Mean Corpuscular Hemoglobin 30 pg (25-35) Mean Corpuscular Hemoglobin Concent 31 g/dL (31-37) Red Cell Distribution Width 14.8 % (11.5-14.5) Platelet Count 158 x10^3/uL (140-400) Neutrophils (%) (Auto) 76 % (31-73) Lymphocytes (%) (Auto) 14 % (24-48) Monocytes (%) (Auto) 9 % (0-9) Eosinophils (%) (Auto) 1 % (0-3) Basophils (%) (Auto) 0 % (0-3) Neutrophils # (Auto) 3.7 x10^3uL (1.8-7.7) Lymphocytes # (Auto) 0.7 x10^3/uL (1.0-4.8) Monocytes # (Auto) 0.5 x10^3/uL (0.0-1.1) Eosinophils # (Auto) 0.1 x10^3/uL (0.0-0.7) Basophils # (Auto) 0.0 x10^3/uL (0.0-0.2) Prothrombin Time 15.0 SEC (11.7-14.0) Prothromb Time International Ratio 1.2 (0.8-1.1) Activated Partial Thromboplast Time 31 SEC (24-38) Sodium Level 143 mmol/L (136-145) Potassium Level 4.6 mmol/L (3.5-5.1) Chloride Level 109 mmol/L (98-107) Carbon Dioxide Level 26 mmol/L (21-32) Anion Gap 8 (6-14) Blood Urea Nitrogen 55 mg/dL (8-26) Creatinine 2.4 mg/dL (0.7-1.3) Estimated GFR (Cockcroft-Gault) 28.1 BUN/Creatinine Ratio 23 (6-20) Glucose Level 76 mg/dL (70-99) Lactic Acid Level 1.3 mmol/L (0.4-2.0) Calcium Level 8.3 mg/dL (8.5-10.1) Magnesium Level 2.6 mg/dL (1.8-2.4) Total Bilirubin 0.4 mg/dL (0.2-1.0) Aspartate Amino Transf (AST/SGOT) 20 U/L (15-37) Alanine Aminotransferase (ALT/SGPT) 21 U/L (16-63) Alkaline Phosphatase 102 U/L (46-116) Creatine Kinase 353 U/L (39-308) Creatine Kinase MB (Mass) 2.8 ng/mL (0.0-3.6) Creatine Kinase MB Relative Index 0.8 % (0-4) Troponin I Quantitative 0.052 ng/mL (0.000-0.055) OT-Sqi-Q-Type Natriuretic Peptide 4347 pg/mL (0-124) Total Protein 7.3 g/dL (6.4-8.2) Albumin 3.2 g/dL (3.4-5.0) Albumin/Globulin Ratio 0.8 (1.0-1.7) Lipase 80 U/L (73-393) Thyroid Stimulating Hormone (TSH) 2.599 uIU/mL (0.358-3.74) Influenza Type A Antigen Negative (NEGATIVE) Influenza Type B Antigen Negative (NEGATIVE) Glucose (Fingerstick) 32 mg/dL (70-99) 34 mg/dL (70-99) Test 02/27/19 15:33 02/27/19 16:18 02/27/19 17:22 02/27/19 18:27 Glucose (Fingerstick) 59 mg/dL (70-99) 70 mg/dL (70-99) 53 mg/dL (70-99) 84 mg/dL (70-99) Test 02/27/19 20:35 02/27/19 20:56 02/27/19 22:30 02/28/19 03:35 Glucose (Fingerstick) 64 mg/dL (70-99) 67 mg/dL (70-99) 83 mg/dL (70-99) White Blood Count 5.5 x10^3/uL (4.0-11.0) Red Blood Count 4.12 x10^6/uL (4.30-5.70) Hemoglobin 12.5 g/dL (13.0-17.5) Hematocrit 40.0 % (39.0-53.0) Mean Corpuscular Volume 97 fL (79-100) Mean Corpuscular Hemoglobin 30 pg (25-35) Mean Corpuscular Hemoglobin Concent 31 g/dL (31-37) Red Cell Distribution Width 15.1 % (11.5-14.5) Platelet Count 181 x10^3/uL (140-400) Neutrophils (%) (Auto) 71 % (31-73) Lymphocytes (%) (Auto) 18 % (24-48) Monocytes (%) (Auto) 9 % (0-9) Eosinophils (%) (Auto) 2 % (0-3) Basophils (%) (Auto) 1 % (0-3) Neutrophils # (Auto) 3.9 x10^3uL (1.8-7.7) Lymphocytes # (Auto) 1.0 x10^3/uL (1.0-4.8) Monocytes # (Auto) 0.5 x10^3/uL (0.0-1.1) Eosinophils # (Auto) 0.1 x10^3/uL (0.0-0.7) Basophils # (Auto) 0.0 x10^3/uL (0.0-0.2) Sodium Level 144 mmol/L (136-145) Potassium Level 4.6 mmol/L (3.5-5.1) Chloride Level 108 mmol/L (98-107) Carbon Dioxide Level 28 mmol/L (21-32) Anion Gap 8 (6-14) Blood Urea Nitrogen 57 mg/dL (8-26) Creatinine 2.6 mg/dL (0.7-1.3) Estimated GFR (Cockcroft-Gault) 25.7 Glucose Level 97 mg/dL (70-99) Calcium Level 8.3 mg/dL (8.5-10.1) Test 02/28/19 06:29 02/28/19 07:40 02/28/19 08:32 02/28/19 08:45 Glucose (Fingerstick) 125 mg/dL (70-99) White Blood Count 9.0 x10^3/uL (4.0-11.0) Red Blood Count 4.12 x10^6/uL (4.30-5.70) Hemoglobin 12.8 g/dL (13.0-17.5) Hematocrit 40.3 % (39.0-53.0) Mean Corpuscular Volume 98 fL (79-100) Mean Corpuscular Hemoglobin 31 pg (25-35) Mean Corpuscular Hemoglobin Concent 32 g/dL (31-37) Red Cell Distribution Width 14.9 % (11.5-14.5) Platelet Count 157 x10^3/uL (140-400) Sodium Level 149 mmol/L (136-145) Potassium Level 4.9 mmol/L (3.5-5.1) Chloride Level 111 mmol/L (98-107) Carbon Dioxide Level 27 mmol/L (21-32) Anion Gap 11 (6-14) Blood Urea Nitrogen 63 mg/dL (8-26) Creatinine 3.2 mg/dL (0.7-1.3) Estimated GFR (Cockcroft-Gault) 20.2 Glucose Level 156 mg/dL (70-99) Calcium Level 8.1 mg/dL (8.5-10.1) Phosphorus Level 6.5 mg/dL (2.6-4.7) Magnesium Level 2.7 mg/dL (1.8-2.4) Amylase Level 31 U/L (25-115) O2 Saturation 94 % (92-99) Arterial Blood pH 7.19 (7.35-7.45) Arterial Blood pCO2 at Patient Temp 64 mmHg (35-46) Arterial Blood pO2 at Patient Temp 76 mmHg (75-108) Arterial Blood HCO3 24 mmol/L (21-28) Arterial Blood Base Excess -5 mmol/L (-3-3) FiO2 100% Urine Collection Type Unknown Urine Color [place] Urine Clarity Turbid Urine pH 5.0 Urine Specific [place] 1.025 Urine Protein >=300 mg/dL (NEG-TRACE) Urine Glucose (UA) Negative mg/dL (NEG) Urine Ketones (Stick) Trace mg/dL (NEG) Urine Blood Large (NEG) Urine Nitrite Negative (NEG) Urine Bilirubin Moderate (NEG) Urine Urobilinogen Dipstick 2.0 mg/dL (0.2 mg/dL) Urine Leukocyte Esterase Small (NEG) Urine RBC >40 /HPF (0-2) Urine WBC Occ /HPF (0-4) Urine Bacteria Few /HPF (0-FEW) Urine Hyaline Casts Moderate /HPF Urine Opiates Screen Neg (NEG) Urine Methadone Screen Neg (NEG) Urine Barbiturates Neg (NEG) Urine Phencyclidine Screen Neg (NEG) Urine Amphetamine/Methamphetamine Neg (NEG) Urine Benzodiazepines Screen Neg (NEG) Urine Cocaine Screen Neg (NEG) Urine Cannabinoids Screen Neg (NEG) Urine Ethyl Alcohol Neg (NEG) Test 02/28/19 09:00 Ionized Calcium 1.10 mmol/L (1.13-1.32) Objective Assessment ? Sepsis Acute resp failure - intubated - sec to fluid overload with ? aspiration Scrotal edema ? Ileus vs SBO vs DM gastroparesis S/p code Fluid overload LEONARD Distant h/o Group B strep/Acinetobacter/porphomonas plus anaerobes Plan Plan of Care D/c rocephin Begin Meropenem Begin Zyvox - Avoid Vanc with LEONARD Dose Micafungin Check lactic acid/BNP Check KUB for ? Ileus/SBO - given distension/decreased BS and OGT output F/u ECHO Await Renal eval Labs in am F/u cults 35 mins CC time and previous records reviewed D/w nursing # [id number] QUIANA PACK MD Feb 28, 2019 11:36
[2019-02-28] MEDS: MICAFUNGIN 100 MG in IV DEXTROSE 5% 100ML 100 ML IV SCH (11:50)
[2019-02-28] MEDS ORDERED: ACETAMINOPHEN 650 MG/20.3 ML SOLUTION. NG SCH (12:00)
--- NOTE | 2019-02-28 13:01 | RAD ---
KUB History: History of bloating Comparison: February 27, 2019 Findings: 2 supine AP views of the abdomen are submitted. No gas dilated small bowel is identified, relative nonspecific paucity of gas in the small bowel. There is some gas in the colon, also retained stool in segments of the colon. There is enteric catheter coursing into the stomach. Impression: 1. No gas-distended small bowel is identified, bowel not significantly dilated. There is some retained stool in segments of the colon. There is enteric catheter present. Electronically signed by: Taras Mendoza MD (02/28/2019 12:58 PM) [facility]
[2019-02-28 13:03] LABS: BASE EXCESS ABG 2 mmol/L (-3-3); HCO3 ABG 26 mmol/L (21-28); PCO2 ABG 40 mmHg (35-46); PO2 ABG 78 mmHg (75-108); SAT O2 ABG 96 % (92-99)
[2019-02-28 13:05] LABS: FIO2 ABG 100% VENT
[2019-02-28] MEDS: MEROPENEM 500 MG in IV NORMAL SALINE 50ML 50 ML IV SCH ×2 (13:54→21:36)
[2019-02-28] MEDS: FUROSEMIDE 40 MG/4 ML VIAL. IVP SCH (13:55)
[2019-02-28] MEDS: VECURONIUM BOLUS 10 MG VIAL. IV PRN (15:27)
--- NOTE | 2019-02-28 16:47 | RAD ---
Bilateral lower extremity venous doppler ultrasound History: Respiratory failure, right below knee amputation, obesity Comparison: None Findings: Multiple grayscale, color, and duplex spectral analysis sonographic images were acquired of the bilateral lower extremity veins to evaluate for the presence of DVT. There is normal phasicity. Normal compression, color-flow, and augmentation is demonstrated from the bilateral common femoral to the popliteal veins. There is normal color flow of the proximal profunda femoris veins. There is nonspecific right groin lymph node about 1.7 x 0.9 x 1.5 cm. Left calf veins are poorly visualized due to patient's body habitus. Impression: 1. There is no evidence of deep venous thrombosis from the bilateral common femoral to popliteal veins. 2. There is nonspecific right groin lymph node. Electronically signed by: Taras Mendoza MD (02/28/2019 4:44 PM) [facility]
[2019-02-28] MEDS: IPRATRPIUM/ALBUTEROL 0.5/2.5MG 3 ML NEBU. NEB SCH ×2 (17:02→20:00)
--- NOTE | 2019-02-28 18:06 | NUR ---
0700 patient arrived intubated from room 662 post code. Patient responds to name by opening his eyes. Hypothermia protocol was dc'd per Dr Guevara. Patient hypotensive with SBP in the 80's, Dopamine was ordered and started. Made contact with patients sister Mimi, she was made aware of patients condition. Her phone number is on the chart if needed for consent. Dopamine drip titrated off at 1130. Patient currently in no apparent distress. Will continue to monitor.
[2019-02-28] MEDS: HALOPERIDOL LACTATE 5 MG/ML VIAL. IVP PRN (18:21)
[2019-02-28] MEDS: FAMOTIDINE 20 MG/2 ML VIAL IVP SCH (20:41)
[2019-03-01] VITALS (24 sets, daily range): BP systolic 90–144; BP diastolic 53–77
--- NOTE | 2019-03-01 04:45 | CONS ---
DATE OF CONSULTATION: 02/28/2019 LOCATION: The patient's room, ICU 10. REQUESTING PHYSICIAN: Dr. Guevara. REASON FOR CONSULTATION: Questionable sepsis. HISTORY OF PRESENT ILLNESS: The patient is a 58-year-old gentleman with history of diabetes and neuropathy, who has undergone a 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 He has had previous cultures positive for group B Strep, Acinetobacter, porphomonas, and anaerobes. Currently, he is intubated and sedated, unable to evaluate past medical history, history of present illness, review of systems. This is obtained from the chart and in discussions with nursing. The patient presented to [facility] Emergency Room on the secondary to shortness of breath on and off about 4 months, also complaining of increasing swelling to his abdomen and his lower extremities x 3 weeks. On arrival, he had a white count of 4.9 with a normal differential, but was in acute renal failure with a creatinine of 2.4. Last creatinine in 2014 was 0.8. He underwent an acute abdominal series, which showed decreased lung volumes and nonobstructive bowel gas pattern and then underwent a renal ultrasound, showed urinary bladder estimated 154, could not visualize either kidney. He underwent abdominal ultrasound and scrotal ultrasound, showed severe scrotal wall thickening and edema, left greater than right with evidence of cellulitis. No evidence of any torsion. He was admitted to the hospital and evaluated by Urology. Influenza screen was obtained and was negative. He had some episodes of hypoglycemia yesterday afternoon and drop in his blood pressure this morning. This morning, the patient was found foaming at the mouth and Rapid Response was called and he was now responsive, subsequently was intubated and transferred to Intensive Care Unit and placed on Rocephin. PAST MEDICAL HISTORY: Positive for diabetes, hypertension, obesity, gangrenous diabetic foot wound, right foot cellulitis, previous diabetic neuropathy, osteoarthritis. PAST SURGICAL HISTORY: Positive for tonsillectomy as well as right BKA. REVIEW OF SYSTEMS: Unobtainable as he is intubated. ALLERGIES: No known drug allergies. SOCIAL HISTORY: History of nonsmoking, previously employed with [employer] and is . FAMILY HISTORY: Positive for hypertension, osteoarthritis and diabetes. MEDICATIONS: Dopamine, fentanyl, ceftriaxone, Pepcid, heparin, Ativan p.r.n. Other meds are available and reviewed in the chart. PHYSICAL EXAMINATION: VITAL SIGNS: He has been afebrile, most recent temperature of 98.5 axillary. Current pulse 72, respirations 20, blood pressure 129/75, satting 92% on the ventilator. He is intubated. CONSTITUTIONAL: He is sedated. He has generalized anasarca. HEENT: His eyes are swollen. Pupils are equal and reactive. He has normal conjunctivae. NECK: Supple. LUNGS: Decreased, has some crackles. HEART: S1, S2. ABDOMEN: Distended with decreased bowel sounds. OG tubes in place with what appears to be undigested food particles. GENITOURINARY: He has 3-4+ scrotal swelling with some erythema. No gross warmth. EXTREMITIES: No clubbing, cyanosis with 3+ edema. He has peripheral IVs. SKIN: Warm to touch without signs of generalized rash. LABORATORY VALUES: White count 9, hemoglobin 12.8, platelets of 157, neutrophils earlier 71, lymphs are 18. Creatinine now up to 3.2, glucose 156. Amylase was 31, lipase was 80 with normal liver function study tests on arrival. Recent proBNP of 4347. Urinalysis: Occasional wbc's, small leukocyte esterase, nitrite negative, large blood. Influenza screen was negative. Radiology reviewed in history of present illness. IMPRESSION: 1. Questionable sepsis. 2. Acute respiratory failure, intubated, secondary to fluid overload with questionable aspiration. 3. Scrotal edema. 4. Questionable ileus given apparent food contacts and has OG tube versus mild obstruction versus diabetic gastroparesis. 5. Status post code. 6. Fluid overload. 7. Acute kidney injury. 8. Distant history of group B strep, Acinetobacter, porphomonas, plus anaerobes. RECOMMENDATIONS: Blood and urine cultures have been obtained already. We will discontinue the Rocephin. We will begin meropenem. We will also begin Zyvox, avoiding vancomycin with his acute kidney injury. We will dose micafungin given diabetes and risk for yeast. Check lactic acid, repeat BNP. Check KUB for questionable ileus versus small-bowel obstruction given distention and decreased bowel sounds and OG output. Followup echo . Of note, he did have a normal TSH. Labs in the morning. Follow up cultures. This was discussed with the nurse. I reviewed previous records. Spent 35 minutes critical care time. Thank you for allowing me to participate in this patient's care. Should you have any questions, please do not hesitate to contact me. QUIANA PACK MD DR: Racheal JOB#: [id number] / [id number]
[2019-03-01 04:52] LABS: BASO % 0 % (0-3); EOS # 0.1 x10^3/uL (0.0-0.7); EOS % 1 % (0-3); HEMATOCRIT 39.7 % (39.0-53.0); HEMOGLOBIN 12.8 g/dL (13.0-17.5); LYMPH % 17 % (24-48); MEAN CORPUSCULAR HEMOGLOBIN 30 pg (25-35); MEAN CORPUSCULAR HGB CONC 32 g/dL (31-37); MEAN CORPUSCULAR VOLUME 94 fL (79-100); MONO # 0.5 x10^3/uL (0.0-1.1); MONO % 8 % (0-9); NEUT # 4.3 x10^3uL (1.8-7.7); NEUT % 73 % (31-73); PLATELET COUNT 164 x10^3/uL (140-400); RED BLOOD COUNT 4.23 x10^6/uL (4.30-5.70); RED CELL DISTRIBUTION WIDTH 14.6 % (11.5-14.5); WHITE BLOOD COUNT 5.9 x10^3/uL (4.0-11.0)
--- NOTE | 2019-03-01 05:02 | CONS ---
DATE OF CONSULTATION: 02/28/2019 REASON FOR CONSULTATION: Renal failure. REQUESTING PHYSICIAN: Hospitalist. HISTORY OF PRESENT ILLNESS: A 58-year-old gentleman who was brought to the Emergency Department with severe scrotal swelling. Also, has lower extremity edema. He sustained arrest and is transferred to the Intensive Care Unit. In this setting, Nephrology evaluation is now requested. He is now being managed for sepsis. Laboratories were notable for creatinine of 3.1, GFR 20.9, potassium 5.2, CO2 of 25. Initially, he was vasopressor dependent and is currently off vasopressor. His urine output was initially very poor and has improved significantly. PAST MEDICAL HISTORY: Obesity, diabetes mellitus, hypertension, degenerative arthritis, right BKA, tonsillectomy. ALLERGIES: None. MEDICATIONS: Reviewed per med list. FAMILY HISTORY: Noncontributory. SOCIAL HISTORY: The patient resides with a roommate. REVIEW OF SYSTEMS: Unobtainable. The patient is intubated and sedated. PHYSICAL EXAMINATION: GENERAL APPEARANCE: The patient is being sedated. HEENT: Plethoric face. Oral intubation. NECK: No increased JVD. LUNGS: Clear. CARDIAC: Without S3 or rub. ABDOMEN: Obese. Bowel sounds are present, nontender. GENITOURINARY: Scrotal edema is noted. EXTREMITIES: Status post BKA and generalized edema. NEUROPSYCHIATRIC: Sedated. LABORATORY DATA: Sodium 144, potassium 5.2, chloride 107, CO2 of 25, BUN 62, creatinine 3.1, GFR 20.9, calcium 8.2. White count 9, hemoglobin 12, hematocrit 40. IMPRESSION: Acute renal failure occurring in the setting of probable sepsis. Concern with cellulitis. The patient does have significant scrotal edema. PLAN: 1. IV fluid administration as you are doing. 2. Vasopressors support as needed. Currently, does not need it. 3. Antibiotics as directed by Infectious Disease. We will follow with you. LIONEL FUENTES MD DR: DAVION/antoni JOB#: [id number] / [id number]
[2019-03-01 05:26] LABS: ALBUMIN 2.5 g/dL (3.4-5.0); ALBUMIN/GLOBULIN RATIO 0.6 (1.0-1.7); CALCIUM 8.6 mg/dL (8.5-10.1); CREATININE 2.1 mg/dL (0.7-1.3); GFR 32.8; POTASSIUM 3.8 mmol/L (3.5-5.1); TOTAL BILIRUBIN 1.1 mg/dL (0.2-1.0); TOTAL PROTEIN 6.6 g/dL (6.4-8.2)
[2019-03-01] MEDS: MEROPENEM 500 MG in IV NORMAL SALINE 50ML 50 ML IV SCH ×3 (05:41→21:31)
[2019-03-01] MEDS: MIDAZOLAM 100mg/100ml NS BAG 100 ML IV PRN ×2 (05:42→23:26)
[2019-03-01] MEDS: HEPARIN for SUB-Q USE 5,000 UNIT/ML VIAL. SQ SCH ×3 (05:43→21:32)
--- NOTE | 2019-03-01 06:44 | CONS ---
DATE OF CONSULTATION: 02/28/2019 ATTENDING PHYSICIAN: Dr. Mariah Acuna. REASON FOR CONSULTATION: The patient seen in pulmonary consultation at the request of Dr. Acuna for vent management. HISTORY OF PRESENT ILLNESS: The patient is a 58-year-old male who was admitted to the Emergency Room with dyspnea, lower extremity swelling, abdominal swelling, severe scrotal swelling. He has had a previous right BKA, was not able to ambulate over the last several days or 3 weeks. He presented. Earlier this morning, he had a cardiopulmonary arrest up on the floor. He was intubated. I was asked to see him in consultation. I reviewed his x-ray, which reveals some vascular congestion along with cardiomegaly and prominent hilar structures. I reviewed his labs. His BUN and creatinine are elevated 63 and 3.2. He was given 60 of IV Lasix with no significant response. His toxicology screen was negative, serology for influenza was negative. UA was noted. He did have some rbc's and wbc's. INR was 1.2. His arterial blood gas revealed pH of 7.19, PaCO2 of 64, PaO2 of 76. Since then, we have increased the minute ventilation. White count was normal. Once again, his chest x-ray revealed perihilar opacities, cardiomegaly. He has had an ultrasound of the scrotum revealing scrotal wall thickening, edema and acute abdominal series revealing slight decreased lung volumes, nonobstructive gas pattern. PAST MEDICAL HISTORY: Remarkable for peripheral vascular disease, status post previous BKA, hypertension, diabetes, obesity, suspect obstructive sleep apnea. PAST SURGICAL HISTORY: Status post right BKA, tonsillectomy. FAMILY HISTORY: Diabetes, hypertension. SOCIAL HISTORY: It is unknown if he utilizes tobacco or alcohol. REVIEW OF SYSTEMS: Unobtainable secondary to the patient's condition. I did review his previous admission here from 2014 and at that time, the patient had amputation of the right leg. He was also seen in consultation by Infectious Disease Service. PHYSICAL EXAMINATION: GENERAL: Morbid obese individual mechanically ventilated and sedated, receiving IV dopamine at 5 mcg. HEENT: Eyes, the sclerae were nonicteric. NECK: Jugular venous distention could not be assessed secondary to body habitus. CHEST: Full expansion. LUNGS: Adequate airway flow with no wheezes, rales or rhonchi. CARDIOVASCULAR: Regular rate and rhythm with S1, S2, no S3. ABDOMEN: Obese. EXTREMITIES: Evidence of previous BKA, significant edema otherwise. Labs and chest x-ray as indicated above. IMPRESSION: 1. Acute hypoxemic hypercapnic respiratory failure. 2. Suspect sepsis. 3. In-house cardiopulmonary arrest. We will rule out myocardial infarction. Pulmonary embolism is in the differential diagnosis. Unfortunately, we cannot perform a CT angiogram. We will obtain venous Doppler of the lower extremity. 4. Suspect severe pulmonary hypertension. 5. Acute on chronic right-sided heart failure. 6. Possible pneumonia. 7. Morbid obesity. 8. Diabetes. PLAN: 1. Continue support with assist control ventilation, adjust minute ventilation to normalize pH. 2. Empiric antibiotics. 3. Bilateral venous Dopplers of lower extremities. 4. DVT and GI prophylaxis. 5. Consult Nephrology, Cardiology. 6. Obtain echocardiogram. 7. Consult ID. I do appreciate the privilege in sharing this patient's care. Total cumulative critical care time of 30 minutes. MAGO NI MD DR: JERALD/antoni JOB#: [id number] / [id number]
[2019-03-01] MEDS ORDERED: ACETAMINOPHEN 650 MG SUPP.RECT. PR PRN (07:45)
[2019-03-01] MEDS ORDERED: ACETAMINOPHEN 650 MG/20.3 ML SOLUTION. NG PRN (07:45)
--- NOTE | 2019-03-01 08:02 | RAD ---
Examination: PORTABLE CHEST 1V History: RESPIRATORY FAILURE Comparison/Correlation: 02/28/2019 portable chest x-ray exam Findings: Portable upright frontal view chest was obtained. Endotracheal tube terminates 1.7 cm from the armani. Enteric tube appears to terminate within the stomach. It is not well delineated at the epigastric level due to underpenetrated technique. No pneumothorax. Heart size is borderline enlarged. No significant pleural effusions. Evaluation of the retrocardiac region is limited due to underpenetrated technique. Possible retrocardiac left basilar consolidation or atelectasis is raised. Spurring involving the thoracic spine noted. Impression: Possibly retrocardiac atelectasis or consolidation is raised. Evaluation is limited due to underpenetrated technique. Consider follow-up PA and lateral chest x-ray exam for more definitive assessment. Electronically signed by: Daniel Gutierrez MD (03/01/2019 7:59 AM) [facility]
[2019-03-01] MEDS: FUROSEMIDE 40 MG/4 ML VIAL. IVP SCH ×2 (08:47→13:39)
[2019-03-01] MEDS: IPRATRPIUM/ALBUTEROL 0.5/2.5MG 3 ML NEBU. NEB SCH ×4 (08:53→20:17)
[2019-03-01 09:49] LABS: BASE EXCESS ABG 3 mmol/L (-3-3); HCO3 ABG 26 mmol/L (21-28); PCO2 ABG 34 mmHg (35-46); PO2 ABG 68 mmHg (75-108); SAT O2 ABG 94 % (92-99)
[2019-03-01 09:51] LABS: FIO2 ABG 80%
--- NOTE | 2019-03-01 09:53 | PDOC ---
PROGRESS NOTES Subjective Subjective Intubated and sedated Objective Objective Vital Signs Date Time Temp Pulse Resp B/P (MAP) Pulse Ox O2 Delivery O2 Flow Rate FiO2 03/01/19 09:42 96 Ventilator 03/01/19 09:00 70 20 120/58 (78) 03/01/19 08:55 4.0 03/01/19 08:00 98.6 98.6 Intake and Output 03/01/19 06:59 Intake Total 1523.14 ml Output Total 5935 ml Balance -4411.86 ml IV Total 932.14 ml Blood Product IV Normal Saline Flush 591 ml Output Urine Total 5385 ml Gastric Drainage Total 550 ml Physical Exam Abdomen: Soft Heart: Regular rate Extremities: Other (2+ pitting edema left lower extremity and right below the knee amputation) General: Other (intubated and sedated) HEENT: Atraumatic Lungs: Other (bilateral basal crepitations) MUSCULOSKELETAL: Abnormal exam of right Neuro: Normal speech, Normal tone, Sensation intact Psych/Mental Status: Mental status NL, Mood NL Skin: Other (scale, ) Assessment Assessment 1. Acute respiratory failure secondary to congestive heart failure, most probably acute on chronic diastolic. s/p intubation. Myocardial infarction ruled out. Telemetry did not show any significant arrhythmias. Diuresing well with Lasix I/O negative greater than 4L. Check 2-D echo to assess LV systolic function. Continue vent management per pulmonary team. 2. Sepsis/aspiration pneumonia: Treat per ID. 3. Acute on chronic renal insufficiency: Nephrology team following 4. Diabetes mellitus type 2: Treat per IM Plan Plan of Care Problems Medical Problems: (1) Acute renal failure Status: Acute (2) Edema Status: Acute (3) Shortness of breath Status: Acute Comment Review of Relevant I have reviewed the following items pascual (where applicable) has been applied. Labs Laboratory Tests Test 02/28/19 12:44 02/28/19 17:22 03/01/19 04:33 03/01/19 09:45 Glucose (Fingerstick) 150 mg/dL (70-99) 111 mg/dL (70-99) White Blood Count 5.9 x10^3/uL (4.0-11.0) Red Blood Count 4.23 x10^6/uL (4.30-5.70) Hemoglobin 12.8 g/dL (13.0-17.5) Hematocrit 39.7 % (39.0-53.0) Mean Corpuscular Volume 94 fL (79-100) Mean Corpuscular Hemoglobin 30 pg (25-35) Mean Corpuscular Hemoglobin Concent 32 g/dL (31-37) Red Cell Distribution Width 14.6 % (11.5-14.5) Platelet Count 164 x10^3/uL (140-400) Neutrophils (%) (Auto) 73 % (31-73) Lymphocytes (%) (Auto) 17 % (24-48) Monocytes (%) (Auto) 8 % (0-9) Eosinophils (%) (Auto) 1 % (0-3) Basophils (%) (Auto) 0 % (0-3) Neutrophils # (Auto) 4.3 x10^3uL (1.8-7.7) Lymphocytes # (Auto) 1.0 x10^3/uL (1.0-4.8) Monocytes # (Auto) 0.5 x10^3/uL (0.0-1.1) Eosinophils # (Auto) 0.1 x10^3/uL (0.0-0.7) Basophils # (Auto) 0.0 x10^3/uL (0.0-0.2) Sodium Level 144 mmol/L (136-145) Potassium Level 3.8 mmol/L (3.5-5.1) Chloride Level 108 mmol/L (98-107) Carbon Dioxide Level 26 mmol/L (21-32) Anion Gap 10 (6-14) Blood Urea Nitrogen 49 mg/dL (8-26) Creatinine 2.1 mg/dL (0.7-1.3) Estimated GFR (Cockcroft-Gault) 32.8 BUN/Creatinine Ratio 23 (6-20) Glucose Level 104 mg/dL (70-99) Calcium Level 8.6 mg/dL (8.5-10.1) Total Bilirubin 1.1 mg/dL (0.2-1.0) Aspartate Amino Transf (AST/SGOT) 19 U/L (15-37) Alanine Aminotransferase (ALT/SGPT) 19 U/L (16-63) Alkaline Phosphatase 93 U/L (46-116) Total Protein 6.6 g/dL (6.4-8.2) Albumin 2.5 g/dL (3.4-5.0) Albumin/Globulin Ratio 0.6 (1.0-1.7) O2 Saturation 94 % (92-99) Arterial Blood pH 7.50 (7.35-7.45) Arterial Blood pCO2 at Patient Temp 34 mmHg (35-46) Arterial Blood pO2 at Patient Temp 68 mmHg (75-108) Arterial Blood HCO3 26 mmol/L (21-28) Arterial Blood Base Excess 3 mmol/L (-3-3) FiO2 80% Microbiology 02/28/19 Blood Culture - Preliminary, Resulted NO GROWTH AFTER 1 DAY Medications Current Medications Acetaminophen (Tylenol Supp) 650 mg PRN Q6HRS PRN FL MILD PAIN / TEMP; Start at 07:45; Stop 03/01/19 at 07:45; Status DC Acetaminophen (Tylenol) 650 mg PRN Q6HRS PRN NG MILD PAIN / TEMP; Start at 07:45; Stop 03/01/19 at 07:45; Status DC Acetaminophen (Tylenol) 650 mg Q6HRS NG ; Start 02/28/19 at 12:00; Stop at 12:00; Status DC Albuterol/ Ipratropium (Duoneb) 3 ml RTQID NEB Last administered on 03/01/19at 08:53; Start 02/28/19 at 16:00 Calcium Chloride 1000 mg/Dextrose 60 ml @ 120 mls/hr 1X ONCE IV Last administered on 02/28/19at 11:03; Start 02/28/19 at 10:30; Stop 02/28/19 at 10:59 ; Status DC Ceftriaxone Sodium (Rocephin) 1 gm Q24H IVP Last administered on 02/28/19at 11: 03; Start 02/28/19 at 11:00; Stop 02/28/19 at 11:18; Status DC Famotidine (Pepcid Vial) 20 mg QHS IVP Last administered on 02/28/19at 20:41; Start 02/28/19 at 21:00 Furosemide (Lasix) 40 mg [id number] IVP Last administered on 03/01/19at 08:47; Start 02/28/19 at 14:00 Haloperidol Lactate (Haldol Inj) 5 mg PRN Q6HRS PRN IVP AGITATION Last administered on 02/28/19at 18:21; Start 02/28/19 at 15:15 Info (Icu Electrolyte Protocol) 1 ea DAILY PRN MC PER PROTOCOL; Start 03/02/19 at 07:45; Stop 03/02/19 at 07:45; Status DC Linezolid/Dextrose 300 ml @ 300 mls/hr Q12HR IV Last administered on at 08:47; Start 02/28/19 at 11:30 Meropenem 500 mg/ Sodium Chloride 50 ml @ 100 mls/hr Q8HRS IV Last administered on 03/01/19at 05:41; Start 02/28/19 at 14:00 Micafungin Sodium 100 mg/Dextrose 100 ml @ 100 mls/hr Q24H IV Last administered on 02/28/19at 11:50; Start 02/28/19 at 12:00 Perflutren Protein Type A Microsphe (Optison) 0.66 mg PRN 1X PRN IV SEE COMMENTS; Start 03/01/19 at 10:00; Stop 03/02/19 at 09:59 Vecuronium [place] (Norcuron Bolus) 8 mg PRN Q4HRS PRN IV MUSCLE SPASMS Last administered on 02/28/19at 15:27; Start 02/28/19 at 15:15 Vitals/I & O Vital Sign - Last 24 Hours 02/28/19 02/28/19 02/28/19 02/28/19 10:00 11:00 11:01 12:00 Temp 98.7 98.7 Pulse 72 72 66 Resp 20 20 20 B/P (MAP) 129/75 (93) 138/62 (87) 131/65 (87) Pulse Ox 92 94 96 94 O2 Delivery Ventilator Ventilator Ventilator Ventilator 02/28/19 02/28/19 02/28/19 02/28/19 12:00 12:35 13:00 14:00 Pulse 64 64 Resp 20 20 B/P (MAP) 104/60 (75) 127/70 (89) Pulse Ox 96 97 95 O2 Delivery Mechanical Ventilator Ventilator Ventilator Ventilator 02/28/19 02/28/19 02/28/19 02/28/19 15:00 15:34 16:00 16:00 Temp 98.6 98.6 Pulse 64 63 Resp 20 20 B/P (MAP) 82/49 (60) 89/55 (66) Pulse Ox 96 96 95 O2 Delivery Ventilator Ventilator Mechanical Ventilator Ventilator 02/28/19 02/28/19 02/28/19 02/28/19 17:00 18:00 18:02 19:00 Pulse 64 68 66 Resp 20 20 20 20 B/P (MAP) 109/57 (74) 110/62 (78) 117/62 (80) Pulse Ox 97 95 94 95 O2 Delivery Ventilator Ventilator Ventilator Ventilator 02/28/19 02/28/19 02/28/19 02/28/19 20:00 20:00 20:36 21:00 Temp 99.2 99.2 Pulse 66 72 Resp 19 19 B/P (MAP) 124/75 (91) 126/62 (83) Pulse Ox 92 95 96 O2 Delivery Mechanical Ventilator Ventilator Ventilator Ventilator 02/28/19 02/28/19 02/28/19 02/28/19 22:00 23:00 23:33 23:59 Pulse 72 71 Resp 19 20 B/P (MAP) 133/67 (89) 136/67 (90) Pulse Ox 97 95 95 O2 Delivery Ventilator Ventilator Ventilator Mechanical Ventilator 03/01/19 03/01/19 03/01/19 03/01/19 00:00 00:12 01:00 02:00 Temp 99.2 99.2 Pulse 71 70 70 Resp 19 20 20 B/P (MAP) 135/67 (89) 125/61 (82) 126/61 (82) Pulse Ox 92 96 96 O2 Delivery Ventilator Ventilator Ventilator Ventilator 03/01/19 03/01/19 03/01/19 03/01/19 02:01 03:00 04:00 04:00 Temp 99.0 99.0 Pulse 70 71 Resp 20 18 B/P (MAP) 132/62 (85) 133/65 (87) Pulse Ox 96 96 93 O2 Delivery Ventilator Ventilator Ventilator Mechanical Ventilator 03/01/19 03/01/19 03/01/19 03/01/19 04:48 05:00 06:00 07:00 Pulse 71 70 70 Resp 20 20 20 B/P (MAP) 144/70 (94) 129/60 (83) 140/64 (89) Pulse Ox 96 96 97 96 O2 Delivery Ventilator Ventilator Ventilator Ventilator 03/01/19 03/01/19 03/01/19 03/01/19 07:32 08:00 08:00 08:44 Temp 98.6 98.6 Pulse 70 Resp 20 20 20 B/P (MAP) 125/58 (80) Pulse Ox 96 95 96 O2 Delivery Ventilator Mechanical Ventilator Ventilator Ventilator 03/01/19 03/01/19 03/01/19 08:55 09:00 09:42 Pulse 70 Resp 20 B/P (MAP) 120/58 (78) Pulse Ox 96 96 96 O2 Delivery Ventilator Ventilator O2 Flow Rate 4.0 Intake and Output 02/28/19 02/28/19 03/01/19 14:59 22:59 06:59 Intake Total 531.15 ml 790.99 ml 201 ml Output Total 1775 ml 3115 ml 1045 ml Balance -1243.85 ml -2324.01 ml -844 ml ASHUTOSH FINK MD Mar 01, 2019 09:53
[2019-03-01] MEDS ORDERED: PERFLUTREN PROTEIN-A MICROSPHR 0.22 MG/ML 3 ML VIAL. IV PRN (10:00)
--- NOTE | 2019-03-01 10:15 | PDOC ---
Infectious Disease Note Subjective Subjective intubated/sedated ROS ROS Unable to obtain Vital Sign Vital Signs Vital Signs Date Time Temp Pulse Resp B/P (MAP) Pulse Ox O2 Delivery O2 Flow Rate FiO2 03/01/19 10:00 82 20 117/60 (79) 95 Ventilator 03/01/19 08:55 4.0 03/01/19 08:00 98.6 98.6 Physical Exam PHYSICAL EXAM GENERAL: Sedated and intubated. HEENT: pupils equal, mattin. ETT. OGT NECK: Supple. LUNGS: Decreased, has some crackles. HEART: S1, S2. ABDOMEN: Distended with decreased bowel sounds. firm GENITOURINARY: He has 3-4+ scrotal swelling with some erythema. No gross warmth. EXTREMITIES: No clubbing, cyanosis with 3+ edema. Generalized anasarca. RLE stump with chronic wound. No erythema/fluctuance/warmth SKIN: Warm to touch without signs of generalized rash. HIM CODER: Unresponsive/sedated PIV Labs Lab Laboratory Tests Test 02/28/19 12:44 02/28/19 17:22 03/01/19 04:33 03/01/19 09:45 Glucose (Fingerstick) 150 mg/dL (70-99) 111 mg/dL (70-99) White Blood Count 5.9 x10^3/uL (4.0-11.0) Red Blood Count 4.23 x10^6/uL (4.30-5.70) Hemoglobin 12.8 g/dL (13.0-17.5) Hematocrit 39.7 % (39.0-53.0) Mean Corpuscular Volume 94 fL (79-100) Mean Corpuscular Hemoglobin 30 pg (25-35) Mean Corpuscular Hemoglobin Concent 32 g/dL (31-37) Red Cell Distribution Width 14.6 % (11.5-14.5) Platelet Count 164 x10^3/uL (140-400) Neutrophils (%) (Auto) 73 % (31-73) Lymphocytes (%) (Auto) 17 % (24-48) Monocytes (%) (Auto) 8 % (0-9) Eosinophils (%) (Auto) 1 % (0-3) Basophils (%) (Auto) 0 % (0-3) Neutrophils # (Auto) 4.3 x10^3uL (1.8-7.7) Lymphocytes # (Auto) 1.0 x10^3/uL (1.0-4.8) Monocytes # (Auto) 0.5 x10^3/uL (0.0-1.1) Eosinophils # (Auto) 0.1 x10^3/uL (0.0-0.7) Basophils # (Auto) 0.0 x10^3/uL (0.0-0.2) Sodium Level 144 mmol/L (136-145) Potassium Level 3.8 mmol/L (3.5-5.1) Chloride Level 108 mmol/L (98-107) Carbon Dioxide Level 26 mmol/L (21-32) Anion Gap 10 (6-14) Blood Urea Nitrogen 49 mg/dL (8-26) Creatinine 2.1 mg/dL (0.7-1.3) Estimated GFR (Cockcroft-Gault) 32.8 BUN/Creatinine Ratio 23 (6-20) Glucose Level 104 mg/dL (70-99) Calcium Level 8.6 mg/dL (8.5-10.1) Total Bilirubin 1.1 mg/dL (0.2-1.0) Aspartate Amino Transf (AST/SGOT) 19 U/L (15-37) Alanine Aminotransferase (ALT/SGPT) 19 U/L (16-63) Alkaline Phosphatase 93 U/L (46-116) Total Protein 6.6 g/dL (6.4-8.2) Albumin 2.5 g/dL (3.4-5.0) Albumin/Globulin Ratio 0.6 (1.0-1.7) O2 Saturation 94 % (92-99) Arterial Blood pH 7.50 (7.35-7.45) Arterial Blood pCO2 at Patient Temp 34 mmHg (35-46) Arterial Blood pO2 at Patient Temp 68 mmHg (75-108) Arterial Blood HCO3 26 mmol/L (21-28) Arterial Blood Base Excess 3 mmol/L (-3-3) FiO2 80% CXR Possibly retrocardiac atelectasis or consolidation is raised. Evaluation is limited due to underpenetrated technique. Consider follow-up PA and lateral chest x-ray exam for more definitive assessment. KUB 1. No gas-distended small bowel is identified, bowel not significantly dilated. There is some retained stool in segments of the colon. There is enteric catheter present. Micro Microbiology 02/28/19 Blood Culture - Preliminary, Resulted NO GROWTH AFTER 1 DAY Objective Assessment Questionable sepsis. Acute respiratory failure, intubated, secondary to fluid overload with questionable aspiration. Scrotal edema. Questionable ileus given apparent food contacts and has OG tube versus mild obstruction versus diabetic gastroparesis. Status post code. Fluid overload - diuresing well. Acute kidney injury. Distant history of group B strep, Acinetobacter, Porphyromonas, plus anaerobes. Plan Plan of Care cont Meropenem Zyvox - Avoid Vanc with LEONARD Micafungin BC NGTD F/u labs F/u abd firmness - maybe sec to generalized edema may need imaging D/w nursing Critically ill Attending Co-Sign Attending Co-Sign The patient was seen and interviewed as well as examined at the bedside. The chart was reviewed. The case was discussed. Agree with the plan of care. LYNDSAY PIZARRO APRN Mar 01, 2019 10:15 QUIANA PACK MD Mar 01, 2019 13:05
--- NOTE | 2019-03-01 12:12 | PDOC ---
PULMONARY PROGRESS NOTES Subjective SEDATED ON AC MODE Vitals Vital Signs Date Time Temp Pulse Resp B/P (MAP) Pulse Ox O2 Delivery O2 Flow Rate FiO2 03/01/19 11:00 77 20 130/66 (87) 96 Ventilator 03/01/19 08:55 4.0 03/01/19 08:00 98.6 98.6 Lungs: Crackles Cardiovascular: S1, S2 Abdomen: Other (OBESE) Labs Laboratory Tests Test 02/27/19 14:56 02/27/19 14:57 02/27/19 15:33 02/27/19 16:18 Glucose (Fingerstick) 32 mg/dL (70-99) 34 mg/dL (70-99) 59 mg/dL (70-99) 70 mg/dL (70-99) Test 02/27/19 17:22 02/27/19 18:27 02/27/19 20:35 02/27/19 20:56 Glucose (Fingerstick) 53 mg/dL (70-99) 84 mg/dL (70-99) 64 mg/dL (70-99) 67 mg/dL (70-99) Test 02/27/19 22:30 02/28/19 03:35 02/28/19 06:29 02/28/19 07:40 Glucose (Fingerstick) 83 mg/dL (70-99) 125 mg/dL (70-99) White Blood Count 5.5 x10^3/uL (4.0-11.0) 9.0 x10^3/uL (4.0-11.0) Red Blood Count 4.12 x10^6/uL (4.30-5.70) 4.12 x10^6/uL (4.30-5.70) Hemoglobin 12.5 g/dL (13.0-17.5) 12.8 g/dL (13.0-17.5) Hematocrit 40.0 % (39.0-53.0) 40.3 % (39.0-53.0) Mean Corpuscular Volume 97 fL (79-100) 98 fL (79-100) Mean Corpuscular Hemoglobin 30 pg (25-35) 31 pg (25-35) Mean Corpuscular Hemoglobin Concent 31 g/dL (31-37) 32 g/dL (31-37) Red Cell Distribution Width 15.1 % (11.5-14.5) 14.9 % (11.5-14.5) Platelet Count 181 x10^3/uL (140-400) 157 x10^3/uL (140-400) Neutrophils (%) (Auto) 71 % (31-73) Lymphocytes (%) (Auto) 18 % (24-48) Monocytes (%) (Auto) 9 % (0-9) Eosinophils (%) (Auto) 2 % (0-3) Basophils (%) (Auto) 1 % (0-3) Neutrophils # (Auto) 3.9 x10^3uL (1.8-7.7) Lymphocytes # (Auto) 1.0 x10^3/uL (1.0-4.8) Monocytes # (Auto) 0.5 x10^3/uL (0.0-1.1) Eosinophils # (Auto) 0.1 x10^3/uL (0.0-0.7) Basophils # (Auto) 0.0 x10^3/uL (0.0-0.2) Sodium Level 144 mmol/L (136-145) 149 mmol/L (136-145) Potassium Level 4.6 mmol/L (3.5-5.1) 4.9 mmol/L (3.5-5.1) Chloride Level 108 mmol/L (98-107) 111 mmol/L (98-107) Carbon Dioxide Level 28 mmol/L (21-32) 27 mmol/L (21-32) Anion Gap 8 (6-14) 11 (6-14) Blood Urea Nitrogen 57 mg/dL (8-26) 63 mg/dL (8-26) Creatinine 2.6 mg/dL (0.7-1.3) 3.2 mg/dL (0.7-1.3) Estimated GFR (Cockcroft-Gault) 25.7 20.2 Glucose Level 97 mg/dL (70-99) 156 mg/dL (70-99) Calcium Level 8.3 mg/dL (8.5-10.1) 8.1 mg/dL (8.5-10.1) Lactic Acid Level 1.2 mmol/L (0.4-2.0) Phosphorus Level 6.5 mg/dL (2.6-4.7) Magnesium Level 2.7 mg/dL (1.8-2.4) Amylase Level 31 U/L (25-115) Test 02/28/19 08:13 02/28/19 08:30 02/28/19 08:32 02/28/19 08:45 O2 Saturation 96 % (92-99) 94 % (92-99) Arterial Blood pH 7.44 (7.35-7.45) 7.19 (7.35-7.45) Arterial Blood pCO2 at Patient Temp 40 mmHg (35-46) 64 mmHg (35-46) Arterial Blood pO2 at Patient Temp 78 mmHg (75-108) 76 mmHg (75-108) Arterial Blood HCO3 26 mmol/L (21-28) 24 mmol/L (21-28) Arterial Blood Base Excess 2 mmol/L (-3-3) -5 mmol/L (-3-3) FiO2 100% vent 100% Nasal Screen MRSA (PCR) Negative (Negative) Urine Collection Type Unknown Urine Color Cherry Urine Clarity Turbid Urine pH 5.0 Urine Specific [place] 1.025 Urine Protein >=300 mg/dL (NEG-TRACE) Urine Glucose (UA) Negative mg/dL (NEG) Urine Ketones (Stick) Trace mg/dL (NEG) Urine Blood Large (NEG) Urine Nitrite Negative (NEG) Urine Bilirubin Moderate (NEG) Urine Urobilinogen Dipstick 2.0 mg/dL (0.2 mg/dL) Urine Leukocyte Esterase Small (NEG) Urine RBC >40 /HPF (0-2) Urine WBC Occ /HPF (0-4) Urine Bacteria Few /HPF (0-FEW) Urine Hyaline Casts Moderate /HPF Urine Opiates Screen Neg (NEG) Urine Methadone Screen Neg (NEG) Urine Barbiturates Neg (NEG) Urine Phencyclidine Screen Neg (NEG) Urine Amphetamine/Methamphetamine Neg (NEG) Urine Benzodiazepines Screen Neg (NEG) Urine Cocaine Screen Neg (NEG) Urine Cannabinoids Screen Neg (NEG) Urine Ethyl Alcohol Neg (NEG) Test 02/28/19 09:00 02/28/19 12:44 02/28/19 17:22 03/01/19 04:33 Sodium Level 144 mmol/L (136-145) 144 mmol/L (136-145) Potassium Level 5.2 mmol/L (3.5-5.1) 3.8 mmol/L (3.5-5.1) Chloride Level 107 mmol/L (98-107) 108 mmol/L (98-107) Carbon Dioxide Level 25 mmol/L (21-32) 26 mmol/L (21-32) Anion Gap 12 (6-14) 10 (6-14) Blood Urea Nitrogen 62 mg/dL (8-26) 49 mg/dL (8-26) Creatinine 3.1 mg/dL (0.7-1.3) 2.1 mg/dL (0.7-1.3) Estimated GFR (Cockcroft-Gault) 20.9 32.8 BUN/Creatinine Ratio 20 (6-20) 23 (6-20) Glucose Level 156 mg/dL (70-99) 104 mg/dL (70-99) Calcium Level 8.2 mg/dL (8.5-10.1) 8.6 mg/dL (8.5-10.1) Ionized Calcium 1.10 mmol/L (1.13-1.32) Total Bilirubin 0.6 mg/dL (0.2-1.0) 1.1 mg/dL (0.2-1.0) Aspartate Amino Transf (AST/SGOT) 28 U/L (15-37) 19 U/L (15-37) Alanine Aminotransferase (ALT/SGPT) 27 U/L (16-63) 19 U/L (16-63) Alkaline Phosphatase 111 U/L (46-116) 93 U/L (46-116) GU-Cxt-Z-Type Natriuretic Peptide 5182 pg/mL (0-124) Total Protein 7.7 g/dL (6.4-8.2) 6.6 g/dL (6.4-8.2) Albumin 3.2 g/dL (3.4-5.0) 2.5 g/dL (3.4-5.0) Albumin/Globulin Ratio 0.7 (1.0-1.7) 0.6 (1.0-1.7) Procalcitonin < 0.10 ng/mL (0.00-0.10) Glucose (Fingerstick) 150 mg/dL (70-99) 111 mg/dL (70-99) White Blood Count 5.9 x10^3/uL (4.0-11.0) Red Blood Count 4.23 x10^6/uL (4.30-5.70) Hemoglobin 12.8 g/dL (13.0-17.5) Hematocrit 39.7 % (39.0-53.0) Mean Corpuscular Volume 94 fL (79-100) Mean Corpuscular Hemoglobin 30 pg (25-35) Mean Corpuscular Hemoglobin Concent 32 g/dL (31-37) Red Cell Distribution Width 14.6 % (11.5-14.5) Platelet Count 164 x10^3/uL (140-400) Neutrophils (%) (Auto) 73 % (31-73) Lymphocytes (%) (Auto) 17 % (24-48) Monocytes (%) (Auto) 8 % (0-9) Eosinophils (%) (Auto) 1 % (0-3) Basophils (%) (Auto) 0 % (0-3) Neutrophils # (Auto) 4.3 x10^3uL (1.8-7.7) Lymphocytes # (Auto) 1.0 x10^3/uL (1.0-4.8) Monocytes # (Auto) 0.5 x10^3/uL (0.0-1.1) Eosinophils # (Auto) 0.1 x10^3/uL (0.0-0.7) Basophils # (Auto) 0.0 x10^3/uL (0.0-0.2) Test 03/01/19 09:45 O2 Saturation 94 % (92-99) Arterial Blood pH 7.50 (7.35-7.45) Arterial Blood pCO2 at Patient Temp 34 mmHg (35-46) Arterial Blood pO2 at Patient Temp 68 mmHg (75-108) Arterial Blood HCO3 26 mmol/L (21-28) Arterial Blood Base Excess 3 mmol/L (-3-3) FiO2 80% Laboratory Tests Test 02/28/19 12:44 02/28/19 17:22 03/01/19 04:33 03/01/19 09:45 Glucose (Fingerstick) 150 mg/dL (70-99) 111 mg/dL (70-99) White Blood Count 5.9 x10^3/uL (4.0-11.0) Red Blood Count 4.23 x10^6/uL (4.30-5.70) Hemoglobin 12.8 g/dL (13.0-17.5) Hematocrit 39.7 % (39.0-53.0) Mean Corpuscular Volume 94 fL (79-100) Mean Corpuscular Hemoglobin 30 pg (25-35) Mean Corpuscular Hemoglobin Concent 32 g/dL (31-37) Red Cell Distribution Width 14.6 % (11.5-14.5) Platelet Count 164 x10^3/uL (140-400) Neutrophils (%) (Auto) 73 % (31-73) Lymphocytes (%) (Auto) 17 % (24-48) Monocytes (%) (Auto) 8 % (0-9) Eosinophils (%) (Auto) 1 % (0-3) Basophils (%) (Auto) 0 % (0-3) Neutrophils # (Auto) 4.3 x10^3uL (1.8-7.7) Lymphocytes # (Auto) 1.0 x10^3/uL (1.0-4.8) Monocytes # (Auto) 0.5 x10^3/uL (0.0-1.1) Eosinophils # (Auto) 0.1 x10^3/uL (0.0-0.7) Basophils # (Auto) 0.0 x10^3/uL (0.0-0.2) Sodium Level 144 mmol/L (136-145) Potassium Level 3.8 mmol/L (3.5-5.1) Chloride Level 108 mmol/L (98-107) Carbon Dioxide Level 26 mmol/L (21-32) Anion Gap 10 (6-14) Blood Urea Nitrogen 49 mg/dL (8-26) Creatinine 2.1 mg/dL (0.7-1.3) Estimated GFR (Cockcroft-Gault) 32.8 BUN/Creatinine Ratio 23 (6-20) Glucose Level 104 mg/dL (70-99) Calcium Level 8.6 mg/dL (8.5-10.1) Total Bilirubin 1.1 mg/dL (0.2-1.0) Aspartate Amino Transf (AST/SGOT) 19 U/L (15-37) Alanine Aminotransferase (ALT/SGPT) 19 U/L (16-63) Alkaline Phosphatase 93 U/L (46-116) Total Protein 6.6 g/dL (6.4-8.2) Albumin 2.5 g/dL (3.4-5.0) Albumin/Globulin Ratio 0.6 (1.0-1.7) O2 Saturation 94 % (92-99) Arterial Blood pH 7.50 (7.35-7.45) Arterial Blood pCO2 at Patient Temp 34 mmHg (35-46) Arterial Blood pO2 at Patient Temp 68 mmHg (75-108) Arterial Blood HCO3 26 mmol/L (21-28) Arterial Blood Base Excess 3 mmol/L (-3-3) FiO2 80% Medications Active Scripts Medications Dose Route/Sig Max Daily Dose Days Date Category Proair Hfa Inhaler (Albuterol Sulfate) 8.5 Gm Hfa.aer.ad 1 Puff INH PRN Q6HRS PRN 02/27/19 Reported Lantus Solostar (Insulin Glargine,Hum.rec.anlog) 100 Unit/1 Ml Insuln.pen 20 Unit SQ QHS 02/27/19 Reported Humalog (Insulin Lispro) 100 Unit/1 Ml Cartridge 6 Unit SQ TIDWMEALS 02/27/19 Reported Doxazosin Mesylate 2 Mg Tablet 2 Mg PO DAILY 02/27/19 Reported Omeprazole 40 Mg Capsule.dr 40 Mg PO DAILY 02/27/19 Reported Amlodipine Besylate 10 Mg Tablet 10 Mg PO DAILY 02/27/19 Reported Atorvastatin Calcium 20 Mg Tablet 20 Mg PO DAILY 02/27/19 Reported Atenolol 50 Mg Tablet 50 Mg PO DAILY 02/27/19 Reported Losartan Potassium 100 Mg Tablet 100 Mg PO DAILY 02/27/19 Reported Aspirin 81 Mg Tab.chew 81 Mg PO DAILY 02/27/19 Reported Glyburide 5 Mg Tablet 1 Tab PO BID 11/09/16 Reported Impression . IMPRESSION: 1. Acute hypoxemic hypercapnic respiratory failure. 2. Suspect sepsis. 3. In-house cardiopulmonary arrest. 4. Suspect severe pulmonary hypertension. 5. Acute on chronic right-sided heart failure. 6. Possible pneumonia. 7. Morbid obesity. 8. Diabetes. VENOUS 02/28 Impression: 1. There is no evidence of deep venous thrombosis from the bilateral common femoral to popliteal veins. 2. There is nonspecific right groin lymph node. Plan . AC MODE WILL CONTINUE SUPPORT ANITBX PER ID RULED OUT FOR [place] 1. Continue support with assist control ventilation, adjust minute ventilation to normalize pH. 2. Empiric antibiotics. 3. Bilateral venous Dopplers of lower extremities.NEG 4. DVT and GI prophylaxis. 5. Consult Nephrology, Cardiology. 6. Obtain echocardiogram. 7. Consult ID. MAGO NI MD Mar 01, 2019 12:12
[2019-03-01] MEDS: MICAFUNGIN 100 MG in IV DEXTROSE 5% 100ML 100 ML IV SCH (12:14)
--- NOTE | 2019-03-01 13:10 | PDOC ---
PROGRESS NOTES History of Present Illness History of Present Illness Assessment/Plan ACUTE RESP ARREST POST CODE ON FLOOR scrotal swelling 3 weeks of bilateral general scrotal swelling and tenderness. +dyspnea, abd swelling, leg swelling. POA scrotal swelling, acute, worse than LE swelling, some CHF, acute systolic exacerbation, with other, but will US scrotum, consider hydrocele, Uro consult Dm2 obesity, BMI 47 hx RLE BKA Acute renal failure CR Renal CONSULT 3.1 chronic venous insuff left lower leg PLAN INTUBATED NOW // IN ICU VENT SUPPORT PULM CONSULT CARDIOLOGY CONSULT UROLOGY CONSULT ID CONSULT IV Meropenem Begin Zyvox - Avoid Vanc with LEONARD IV Micafungin lactic acid/BNP KUB for ? Ileus/SBO - given distension/decreased BS and OGT output ECHO PROCALCITONIN CT ABD/ PELVIS 36 MIN CC TIME Vitals Vitals Vital Signs Date Time Temp Pulse Resp B/P (MAP) Pulse Ox O2 Delivery O2 Flow Rate FiO2 03/01/19 12:36 94 Ventilator 03/01/19 12:22 20 03/01/19 12:00 74 138/77 (97) 03/01/19 08:55 4.0 03/01/19 08:00 98.6 98.6 Physical Exam Physical Exam GENERAL: Sedated and intubated. HEENT: pupils equal, mattin. ETT. OGT NECK: Supple. LUNGS: Decreased, has some crackles. HEART: S1, S2. ABDOMEN: Distended with decreased bowel sounds. firm GENITOURINARY: He has 3-4+ scrotal swelling with some erythema. No gross warmth. EXTREMITIES: No clubbing, cyanosis with 3+ edema. Generalized anasarca. RLE stump with chronic wound. No erythema/fluctuance/warmth SKIN: Warm to touch without signs of generalized rash. [employer]: Unresponsive/sedated PIV General: Other (intubated and sedated) Heart: Regular rate Lungs: Crackles Abdomen: Soft, Other (FIRM, VERY OBESE) Extremities: No cyanosis, Other (2+ pitting edema left lower extremity and right below the knee amputation) Skin: Other (scale, ) Labs LABS Laboratory Tests Test 02/28/19 17:22 03/01/19 04:33 03/01/19 09:45 Glucose (Fingerstick) 111 mg/dL (70-99) White Blood Count 5.9 x10^3/uL (4.0-11.0) Red Blood Count 4.23 x10^6/uL (4.30-5.70) Hemoglobin 12.8 g/dL (13.0-17.5) Hematocrit 39.7 % (39.0-53.0) Mean Corpuscular Volume 94 fL (79-100) Mean Corpuscular Hemoglobin 30 pg (25-35) Mean Corpuscular Hemoglobin Concent 32 g/dL (31-37) Red Cell Distribution Width 14.6 % (11.5-14.5) Platelet Count 164 x10^3/uL (140-400) Neutrophils (%) (Auto) 73 % (31-73) Lymphocytes (%) (Auto) 17 % (24-48) Monocytes (%) (Auto) 8 % (0-9) Eosinophils (%) (Auto) 1 % (0-3) Basophils (%) (Auto) 0 % (0-3) Neutrophils # (Auto) 4.3 x10^3uL (1.8-7.7) Lymphocytes # (Auto) 1.0 x10^3/uL (1.0-4.8) Monocytes # (Auto) 0.5 x10^3/uL (0.0-1.1) Eosinophils # (Auto) 0.1 x10^3/uL (0.0-0.7) Basophils # (Auto) 0.0 x10^3/uL (0.0-0.2) Sodium Level 144 mmol/L (136-145) Potassium Level 3.8 mmol/L (3.5-5.1) Chloride Level 108 mmol/L (98-107) Carbon Dioxide Level 26 mmol/L (21-32) Anion Gap 10 (6-14) Blood Urea Nitrogen 49 mg/dL (8-26) Creatinine 2.1 mg/dL (0.7-1.3) Estimated GFR (Cockcroft-Gault) 32.8 BUN/Creatinine Ratio 23 (6-20) Glucose Level 104 mg/dL (70-99) Calcium Level 8.6 mg/dL (8.5-10.1) Total Bilirubin 1.1 mg/dL (0.2-1.0) Aspartate Amino Transf (AST/SGOT) 19 U/L (15-37) Alanine Aminotransferase (ALT/SGPT) 19 U/L (16-63) Alkaline Phosphatase 93 U/L (46-116) Total Protein 6.6 g/dL (6.4-8.2) Albumin 2.5 g/dL (3.4-5.0) Albumin/Globulin Ratio 0.6 (1.0-1.7) O2 Saturation 94 % (92-99) Arterial Blood pH 7.50 (7.35-7.45) Arterial Blood pCO2 at Patient Temp 34 mmHg (35-46) Arterial Blood pO2 at Patient Temp 68 mmHg (75-108) Arterial Blood HCO3 26 mmol/L (21-28) Arterial Blood Base Excess 3 mmol/L (-3-3) FiO2 80% Assessment and Plan Assessmemt and Plan Problems Medical Problems: (1) Acute renal failure Status: Acute (2) Edema Status: Acute (3) Shortness of breath Status: Acute Comment Review of Relevant I have reviewed the following items pascual (where applicable) has been applied. Labs Laboratory Tests Test 02/27/19 14:56 02/27/19 14:57 02/27/19 15:33 02/27/19 16:18 Glucose (Fingerstick) 32 mg/dL (70-99) 34 mg/dL (70-99) 59 mg/dL (70-99) 70 mg/dL (70-99) Test 02/27/19 17:22 02/27/19 18:27 02/27/19 20:35 02/27/19 20:56 Glucose (Fingerstick) 53 mg/dL (70-99) 84 mg/dL (70-99) 64 mg/dL (70-99) 67 mg/dL (70-99) Test 02/27/19 22:30 02/28/19 03:35 02/28/19 06:29 02/28/19 07:40 Glucose (Fingerstick) 83 mg/dL (70-99) 125 mg/dL (70-99) White Blood Count 5.5 x10^3/uL (4.0-11.0) 9.0 x10^3/uL (4.0-11.0) Red Blood Count 4.12 x10^6/uL (4.30-5.70) 4.12 x10^6/uL (4.30-5.70) Hemoglobin 12.5 g/dL (13.0-17.5) 12.8 g/dL (13.0-17.5) Hematocrit 40.0 % (39.0-53.0) 40.3 % (39.0-53.0) Mean Corpuscular Volume 97 fL (79-100) 98 fL (79-100) Mean Corpuscular Hemoglobin 30 pg (25-35) 31 pg (25-35) Mean Corpuscular Hemoglobin Concent 31 g/dL (31-37) 32 g/dL (31-37) Red Cell Distribution Width 15.1 % (11.5-14.5) 14.9 % (11.5-14.5) Platelet Count 181 x10^3/uL (140-400) 157 x10^3/uL (140-400) Neutrophils (%) (Auto) 71 % (31-73) Lymphocytes (%) (Auto) 18 % (24-48) Monocytes (%) (Auto) 9 % (0-9) Eosinophils (%) (Auto) 2 % (0-3) Basophils (%) (Auto) 1 % (0-3) Neutrophils # (Auto) 3.9 x10^3uL (1.8-7.7) Lymphocytes # (Auto) 1.0 x10^3/uL (1.0-4.8) Monocytes # (Auto) 0.5 x10^3/uL (0.0-1.1) Eosinophils # (Auto) 0.1 x10^3/uL (0.0-0.7) Basophils # (Auto) 0.0 x10^3/uL (0.0-0.2) Sodium Level 144 mmol/L (136-145) 149 mmol/L (136-145) Potassium Level 4.6 mmol/L (3.5-5.1) 4.9 mmol/L (3.5-5.1) Chloride Level 108 mmol/L (98-107) 111 mmol/L (98-107) Carbon Dioxide Level 28 mmol/L (21-32) 27 mmol/L (21-32) Anion Gap 8 (6-14) 11 (6-14) Blood Urea Nitrogen 57 mg/dL (8-26) 63 mg/dL (8-26) Creatinine 2.6 mg/dL (0.7-1.3) 3.2 mg/dL (0.7-1.3) Estimated GFR (Cockcroft-Gault) 25.7 20.2 Glucose Level 97 mg/dL (70-99) 156 mg/dL (70-99) Calcium Level 8.3 mg/dL (8.5-10.1) 8.1 mg/dL (8.5-10.1) Lactic Acid Level 1.2 mmol/L (0.4-2.0) Phosphorus Level 6.5 mg/dL (2.6-4.7) Magnesium Level 2.7 mg/dL (1.8-2.4) Amylase Level 31 U/L (25-115) Test 02/28/19 08:13 02/28/19 08:30 02/28/19 08:32 02/28/19 08:45 O2 Saturation 96 % (92-99) 94 % (92-99) Arterial Blood pH 7.44 (7.35-7.45) 7.19 (7.35-7.45) Arterial Blood pCO2 at Patient Temp 40 mmHg (35-46) 64 mmHg (35-46) Arterial Blood pO2 at Patient Temp 78 mmHg (75-108) 76 mmHg (75-108) Arterial Blood HCO3 26 mmol/L (21-28) 24 mmol/L (21-28) Arterial Blood Base Excess 2 mmol/L (-3-3) -5 mmol/L (-3-3) FiO2 100% vent 100% Nasal Screen MRSA (PCR) Negative (Negative) Urine Collection Type Unknown Urine Color [place] Urine Clarity Turbid Urine pH 5.0 Urine Specific [place] 1.025 Urine Protein >=300 mg/dL (NEG-TRACE) Urine Glucose (UA) Negative mg/dL (NEG) Urine Ketones (Stick) Trace mg/dL (NEG) Urine Blood Large (NEG) Urine Nitrite Negative (NEG) Urine Bilirubin Moderate (NEG) Urine Urobilinogen Dipstick 2.0 mg/dL (0.2 mg/dL) Urine Leukocyte Esterase Small (NEG) Urine RBC >40 /HPF (0-2) Urine WBC Occ /HPF (0-4) Urine Bacteria Few /HPF (0-FEW) Urine Hyaline Casts Moderate /HPF Urine Opiates Screen Neg (NEG) Urine Methadone Screen Neg (NEG) Urine Barbiturates Neg (NEG) Urine Phencyclidine Screen Neg (NEG) Urine Amphetamine/Methamphetamine Neg (NEG) Urine Benzodiazepines Screen Neg (NEG) Urine Cocaine Screen Neg (NEG) Urine Cannabinoids Screen Neg (NEG) Urine Ethyl Alcohol Neg (NEG) Test 02/28/19 09:00 02/28/19 12:44 02/28/19 17:22 03/01/19 04:33 Sodium Level 144 mmol/L (136-145) 144 mmol/L (136-145) Potassium Level 5.2 mmol/L (3.5-5.1) 3.8 mmol/L (3.5-5.1) Chloride Level 107 mmol/L (98-107) 108 mmol/L (98-107) Carbon Dioxide Level 25 mmol/L (21-32) 26 mmol/L (21-32) Anion Gap 12 (6-14) 10 (6-14) Blood Urea Nitrogen 62 mg/dL (8-26) 49 mg/dL (8-26) Creatinine 3.1 mg/dL (0.7-1.3) 2.1 mg/dL (0.7-1.3) Estimated GFR (Cockcroft-Gault) 20.9 32.8 BUN/Creatinine Ratio 20 (6-20) 23 (6-20) Glucose Level 156 mg/dL (70-99) 104 mg/dL (70-99) Calcium Level 8.2 mg/dL (8.5-10.1) 8.6 mg/dL (8.5-10.1) Ionized Calcium 1.10 mmol/L (1.13-1.32) Total Bilirubin 0.6 mg/dL (0.2-1.0) 1.1 mg/dL (0.2-1.0) Aspartate Amino Transf (AST/SGOT) 28 U/L (15-37) 19 U/L (15-37) Alanine Aminotransferase (ALT/SGPT) 27 U/L (16-63) 19 U/L (16-63) Alkaline Phosphatase 111 U/L (46-116) 93 U/L (46-116) NG-Kwk-G-Type Natriuretic Peptide 5182 pg/mL (0-124) Total Protein 7.7 g/dL (6.4-8.2) 6.6 g/dL (6.4-8.2) Albumin 3.2 g/dL (3.4-5.0) 2.5 g/dL (3.4-5.0) Albumin/Globulin Ratio 0.7 (1.0-1.7) 0.6 (1.0-1.7) Procalcitonin < 0.10 ng/mL (0.00-0.10) Glucose (Fingerstick) 150 mg/dL (70-99) 111 mg/dL (70-99) White Blood Count 5.9 x10^3/uL (4.0-11.0) Red Blood Count 4.23 x10^6/uL (4.30-5.70) Hemoglobin 12.8 g/dL (13.0-17.5) Hematocrit 39.7 % (39.0-53.0) Mean Corpuscular Volume 94 fL (79-100) Mean Corpuscular Hemoglobin 30 pg (25-35) Mean Corpuscular Hemoglobin Concent 32 g/dL (31-37) Red Cell Distribution Width 14.6 % (11.5-14.5) Platelet Count 164 x10^3/uL (140-400) Neutrophils (%) (Auto) 73 % (31-73) Lymphocytes (%) (Auto) 17 % (24-48) Monocytes (%) (Auto) 8 % (0-9) Eosinophils (%) (Auto) 1 % (0-3) Basophils (%) (Auto) 0 % (0-3) Neutrophils # (Auto) 4.3 x10^3uL (1.8-7.7) Lymphocytes # (Auto) 1.0 x10^3/uL (1.0-4.8) Monocytes # (Auto) 0.5 x10^3/uL (0.0-1.1) Eosinophils # (Auto) 0.1 x10^3/uL (0.0-0.7) Basophils # (Auto) 0.0 x10^3/uL (0.0-0.2) Test 03/01/19 09:45 O2 Saturation 94 % (92-99) Arterial Blood pH 7.50 (7.35-7.45) Arterial Blood pCO2 at Patient Temp 34 mmHg (35-46) Arterial Blood pO2 at Patient Temp 68 mmHg (75-108) Arterial Blood HCO3 26 mmol/L (21-28) Arterial Blood Base Excess 3 mmol/L (-3-3) FiO2 80% Laboratory Tests Test 02/28/19 17:22 03/01/19 04:33 03/01/19 09:45 Glucose (Fingerstick) 111 mg/dL (70-99) White Blood Count 5.9 x10^3/uL (4.0-11.0) Red Blood Count 4.23 x10^6/uL (4.30-5.70) Hemoglobin 12.8 g/dL (13.0-17.5) Hematocrit 39.7 % (39.0-53.0) Mean Corpuscular Volume 94 fL (79-100) Mean Corpuscular Hemoglobin 30 pg (25-35) Mean Corpuscular Hemoglobin Concent 32 g/dL (31-37) Red Cell Distribution Width 14.6 % (11.5-14.5) Platelet Count 164 x10^3/uL (140-400) Neutrophils (%) (Auto) 73 % (31-73) Lymphocytes (%) (Auto) 17 % (24-48) Monocytes (%) (Auto) 8 % (0-9) Eosinophils (%) (Auto) 1 % (0-3) Basophils (%) (Auto) 0 % (0-3) Neutrophils # (Auto) 4.3 x10^3uL (1.8-7.7) Lymphocytes # (Auto) 1.0 x10^3/uL (1.0-4.8) Monocytes # (Auto) 0.5 x10^3/uL (0.0-1.1) Eosinophils # (Auto) 0.1 x10^3/uL (0.0-0.7) Basophils # (Auto) 0.0 x10^3/uL (0.0-0.2) Sodium Level 144 mmol/L (136-145) Potassium Level 3.8 mmol/L (3.5-5.1) Chloride Level 108 mmol/L (98-107) Carbon Dioxide Level 26 mmol/L (21-32) Anion Gap 10 (6-14) Blood Urea Nitrogen 49 mg/dL (8-26) Creatinine 2.1 mg/dL (0.7-1.3) Estimated GFR (Cockcroft-Gault) 32.8 BUN/Creatinine Ratio 23 (6-20) Glucose Level 104 mg/dL (70-99) Calcium Level 8.6 mg/dL (8.5-10.1) Total Bilirubin 1.1 mg/dL (0.2-1.0) Aspartate Amino Transf (AST/SGOT) 19 U/L (15-37) Alanine Aminotransferase (ALT/SGPT) 19 U/L (16-63) Alkaline Phosphatase 93 U/L (46-116) Total Protein 6.6 g/dL (6.4-8.2) Albumin 2.5 g/dL (3.4-5.0) Albumin/Globulin Ratio 0.6 (1.0-1.7) O2 Saturation 94 % (92-99) Arterial Blood pH 7.50 (7.35-7.45) Arterial Blood pCO2 at Patient Temp 34 mmHg (35-46) Arterial Blood pO2 at Patient Temp 68 mmHg (75-108) Arterial Blood HCO3 26 mmol/L (21-28) Arterial Blood Base Excess 3 mmol/L (-3-3) FiO2 80% Microbiology 02/28/19 Blood Culture - Preliminary, Resulted NO GROWTH AFTER 1 DAY Medications Current Medications Ondansetron HCl (Zofran) 4 mg PRN Q8HRS PRN IV NAUSEA/VOMITING; Start 02/27/19 at 16:45; Stop 02/28/19 at 16:44; Status DC Morphine Sulfate (Morphine Sulfate) 2 mg PRN Q2HR PRN IV PAIN; Start 02/27/19 at 16:45; Stop 02/28/19 at 16:44; Status DC Acetaminophen (Tylenol) 650 mg PRN Q4HRS PRN PO FEVER Last administered on 02/27at 21:06; Start 02/27/19 at 16:45; Stop 02/28/19 at 16:44; Status DC Dextrose (Dextrose 50%-Water Syringe) 12.5 gm PRN Q15MIN PRN IV SEE COMMENTS; Start 02/27/19 at 16:45 Heparin Sodium (Porcine) (Heparin Sodium) 5,000 unit Q8HRS SQ Last administered on 03/01/19at 05:43; Start 02/27/19 at 17:00 Lorazepam (Ativan) 1 mg PRN Q8HRS PRN IV ANXIETY / AGITATION Last administered on 02/28/19at 02:57; Start 02/28/19 at 02:45 Etomidate (Amidate) 20 mg STK-MED ONCE IV ; Start 02/28/19 at 06:59; Stop at 07:00; Status DC Rocuronium [place] (Zemuron) 50 mg STK-MED ONCE .ROUTE ; Start 02/28/19 at 07:00 ; Stop 02/28/19 at 09:42; Status DC Dopamine HCl/ Dextrose 250 ml @ 12.266 mls/ hr CONT PRN IV SEE I/O RECORD Last administered on 02/28/19at 08:06; Start 02/28/19 at 07:15 Fentanyl Citrate 30 ml @ 0 mls/hr CONT PRN IV SEE PROTOCOL; Start 02/28/19 at 07:15; Stop 02/28/19 at 07:59; Status DC Propofol 100 ml @ 0 mls/hr CONT PRN IV SEE PROTOCOL; Start 02/28/19 at 07:15; Stop 02/28/19 at 07:59; Status DC Fentanyl Citrate (Fentanyl 2ml Vial) 25 mcg PRN Q1HR PRN IV SEE COMMENTS; Start 02/28/19 at 07:15; Stop 02/28/19 at 07:59; Status DC Fentanyl Citrate (Fentanyl 2ml Vial) 50 mcg PRN Q1HR PRN IV SEE COMMENTS; Start 02/28/19 at 07:15; Stop 02/28/19 at 07:59; Status DC Midazolam HCl 100 ml @ 0 mls/hr CONT PRN IV SEE PROTOCOL Last administered on at 05:42; Start 02/28/19 at 07:15 Sodium Chloride 1,000 ml @ 1,000 mls/hr Q1H IV Last administered on 02/28/19at 07:32; Start 02/28/19 at 07:32; Stop 02/28/19 at 10:09; Status DC Fentanyl Citrate (Fentanyl 2ml Vial) 25 mcg PRN Q30MIN PRN IV see comments; Start 02/28/19 at 07:45; Stop 02/28/19 at 09:42; Status DC Lorazepam (Ativan) 1 mg PRN Q30MIN PRN IV SEDATION; Start 02/28/19 at 07:45; Stop 02/28/19 at 09:42; Status DC Fentanyl Citrate 30 ml @ 2.5 mls/hr CONT PRN PRN IV SEE I/O RECORD Last administered on 03/01/19at 12:22; Start 02/28/19 at 07:45 Propofol 100 ml @ 0 mls/hr CONT PRN IV SEE I/O RECORD; Start 02/28/19 at 07:45 Vecuronium [place] (Norcuron Bolus) 10 mg PRN Q30MIN PRN IV SHIVERING; Start at 07:45; Stop 02/28/19 at 09:42; Status DC Meperidine HCl (Demerol) 12.5 mg PRN Q30MIN PRN IV SHIVERING; Start 02/28/19 at 07:45; Stop 02/28/19 at 09:42; Status DC Multi-Ingred Cream/Lotion/Oil/ Oint (Artificial Tears Eye Ointment) 1 jennifer PRN Q6HRS PRN OU 0.5 INCH FOR DRY EYE; Start 02/28/19 at 07:45; Stop 02/28/19 at 09 :42; Status DC Famotidine (Pepcid Vial) 20 mg BID IVP Last administered on 02/28/19at 11:03; Start 02/28/19 at 09:00; Stop 02/28/19 at 14:25; Status DC Aspirin (Aspirin) 300 mg DAILY SD ; Start 02/28/19 at 09:00; Stop 02/28/19 at 09 :42; Status DC Sodium Chloride (Normal Saline Flush) 3 ml QSHIFT PRN IV AFTER MEDS AND BLOOD DRAWS; Start 02/28/19 at 07:45 Acetaminophen (Tylenol) 650 mg Q6HRS NG ; Start 02/28/19 at 12:00; Stop at 12:00; Status DC Acetaminophen (Tylenol Supp) 650 mg PRN Q6HRS PRN SD MILD PAIN / TEMP; Start at 07:45; Stop 03/01/19 at 07:45; Status DC Acetaminophen (Tylenol) 650 mg PRN Q6HRS PRN NG MILD PAIN / TEMP; Start at 07:45; Stop 03/01/19 at 07:45; Status DC Info (Icu Electrolyte Protocol) 1 ea DAILY PRN MC PER PROTOCOL; Start 03/02/19 at 07:45; Stop 03/02/19 at 07:45; Status DC Furosemide (Lasix) 60 mg 1X ONCE IVP Last administered on 02/28/19 08:30; Start 02/28/19 at 08:30; Stop 02/28/19 at 08:31; Status DC Ceftriaxone Sodium (Rocephin) 1 gm Q24H IVP Last administered on 02/28/19 11: 03; Start 02/28/19 at 11:00; Stop 02/28/19 at 11:18; Status DC Calcium Chloride 1000 mg/Dextrose 60 ml @ 120 mls/hr 1X ONCE IV Last administered on 02/28/19 11:03; Start 02/28/19 at 10:30; Stop 02/28/19 at 10:59 ; Status DC Meropenem 500 mg/ Sodium Chloride 50 ml @ 100 mls/hr Q8HRS IV Last administered on 03/01/19 05:41; Start 02/28/19 at 14:00 Linezolid/Dextrose 300 ml @ 300 mls/hr Q12HR IV Last administered on 08:47; Start 02/28/19 at 11:30 Micafungin Sodium 100 mg/Dextrose 100 ml @ 100 mls/hr Q24H IV Last administered on 03/01/19 12:14; Start 02/28/19 at 12:00 Furosemide (Lasix) 40 mg [id number] IVP Last administered on 03/01/19 08:47; Start 02/28/19 at 14:00 Famotidine (Pepcid Vial) 20 mg QHS IVP Last administered on 02/28/19 20:41; Start 02/28/19 at 21:00 Albuterol/ Ipratropium (Duoneb) 3 ml RTQID NEB Last administered on 03/01/19 12:35; Start 02/28/19 at 16:00 Haloperidol Lactate (Haldol Inj) 5 mg PRN Q6HRS PRN IVP AGITATION Last administered on 02/28/19 18:21; Start 02/28/19 at 15:15 Vecuronium [place] (Norcuron Bolus) 8 mg PRN Q4HRS PRN IV MUSCLE SPASMS Last administered on 02/28/19at 15:27; Start 02/28/19 at 15:15 Perflutren Protein Type A Microsphe (Optison) 0.66 mg PRN 1X PRN IV SEE COMMENTS; Start 03/01/19 at 10:00; Stop 03/02/19 at 09:59 Active Scripts Active Reported Proair Hfa Inhaler (Albuterol Sulfate) 8.5 Gm Hfa.aer.ad 1 Puff INH PRN Q6HRS PRN Lantus Solostar (Insulin Glargine,Hum.rec.anlog) 100 Unit/1 Ml Insuln.pen 20 Unit SQ QHS Humalog (Insulin Lispro) 100 Unit/1 Ml Cartridge 6 Unit SQ TIDWMEALS Doxazosin Mesylate 2 Mg Tablet 2 Mg PO DAILY Omeprazole 40 Mg Capsule.dr 40 Mg PO DAILY Amlodipine Besylate 10 Mg Tablet 10 Mg PO DAILY Atorvastatin Calcium 20 Mg Tablet 20 Mg PO DAILY Atenolol 50 Mg Tablet 50 Mg PO DAILY Losartan Potassium 100 Mg Tablet 100 Mg PO DAILY Aspirin 81 Mg Tab.chew 81 Mg PO DAILY Glyburide 5 Mg Tablet 1 Tab PO BID Vitals/I & O Vital Sign - Last 24 Hours 02/28/19 02/28/19 02/28/19 02/28/19 14:00 15:00 15:34 16:00 Pulse 64 64 Resp 20 20 B/P (MAP) 127/70 (89) 82/49 (60) Pulse Ox 95 96 96 O2 Delivery Ventilator Ventilator Ventilator Mechanical Ventilator 02/28/19 02/28/19 02/28/19 02/28/19 16:00 17:00 18:00 18:02 Temp 98.6 98.6 Pulse 63 64 68 Resp 20 20 20 20 B/P (MAP) 89/55 (66) 109/57 (74) 110/62 (78) Pulse Ox 95 97 95 94 O2 Delivery Ventilator Ventilator Ventilator Ventilator 02/28/19 02/28/19 02/28/19 02/28/19 19:00 20:00 20:00 20:36 Temp 99.2 99.2 Pulse 66 66 Resp 20 19 B/P (MAP) 117/62 (80) 124/75 (91) Pulse Ox 95 92 95 O2 Delivery Ventilator Mechanical Ventilator Ventilator Ventilator 02/28/19 02/28/19 02/28/19 02/28/19 21:00 22:00 23:00 23:33 Pulse 72 72 71 Resp 19 19 20 B/P (MAP) 126/62 (83) 133/67 (89) 136/67 (90) Pulse Ox 96 97 95 95 O2 Delivery Ventilator Ventilator Ventilator Ventilator 02/28/19 03/01/19 03/01/19 03/01/19 23:59 00:00 00:12 01:00 Temp 99.2 99.2 Pulse 71 70 Resp 19 20 B/P (MAP) 135/67 (89) 125/61 (82) Pulse Ox 92 96 O2 Delivery Mechanical Ventilator Ventilator Ventilator Ventilator 03/01/19 03/01/19 03/01/19 03/01/19 02:00 02:01 03:00 04:00 Temp 99.0 99.0 Pulse 70 70 71 Resp 20 20 18 B/P (MAP) 126/61 (82) 132/62 (85) 133/65 (87) Pulse Ox 96 96 96 93 O2 Delivery Ventilator Ventilator Ventilator Ventilator 03/01/19 03/01/19 03/01/19 03/01/19 04:00 04:48 05:00 06:00 Pulse 71 70 Resp 20 20 B/P (MAP) 144/70 (94) 129/60 (83) Pulse Ox 96 96 97 O2 Delivery Mechanical Ventilator Ventilator Ventilator Ventilator 03/01/19 03/01/19 03/01/19 03/01/19 07:00 07:32 08:00 08:00 Temp 98.6 98.6 Pulse 70 70 Resp 20 20 20 B/P (MAP) 140/64 (89) 125/58 (80) Pulse Ox 96 96 95 O2 Delivery Ventilator Ventilator Mechanical Ventilator Ventilator 03/01/19 03/01/19 03/01/19 03/01/19 08:44 08:55 09:00 09:42 Pulse 70 Resp 20 20 B/P (MAP) 120/58 (78) Pulse Ox 96 96 96 96 O2 Delivery Ventilator Ventilator Ventilator O2 Flow Rate 4.0 03/01/19 03/01/19 03/01/19 03/01/19 10:00 11:00 12:00 12:00 Pulse 82 77 74 Resp 20 20 20 B/P (MAP) 117/60 (79) 130/66 (87) 138/77 (97) Pulse Ox 95 96 93 O2 Delivery Ventilator Ventilator Mechanical Ventilator Ventilator 03/01/19 03/01/19 12:22 12:36 Resp 20 Pulse Ox 96 94 O2 Delivery Ventilator Ventilator Intake and Output 02/28/19 02/28/19 03/01/19 15:00 23:00 07:00 Intake Total 531.15 ml 790.99 ml 201 ml Output Total 2200 ml 2890 ml 970 ml Balance -1668.85 ml -2099.01 ml -769 ml LESLY STOCKTON MD Mar 01, 2019 13:10
--- NOTE | 2019-03-01 14:08 | PDOC ---
PROGRESS NOTES Subjective Subjective SEEN IN FOLLOW UP OF ARF Objective Objective Vital Signs Date Time Temp Pulse Resp B/P (MAP) Pulse Ox O2 Delivery O2 Flow Rate FiO2 03/01/19 13:35 20 93 Ventilator 03/01/19 13:00 99.0 80 118/68 (85) 99.0 03/01/19 08:55 4.0 Intake and Output 03/01/19 07:00 Intake Total 1523.14 ml Output Total 6060 ml Balance -4536.86 ml IV Total 932.14 ml Blood Product IV Normal Saline Flush 591 ml Output Urine Total 5510 ml Gastric Drainage Total 550 ml Physical Exam Abdomen: Other (DISTENDED) Heart: Regular rate, Normal S1, Normal S2, No murmurs, Gallops Extremities: Other (ANASARCA) General: Other (SEDATED) Lungs: Clear to auscultation, Normal air movement, Other (VENT) Neuro: Other (SEDATED) Diagnosis RENAL FAILURE: Acute (Acute tubular necrosis) Assessment Assessment Problems Medical Problems: (1) Acute renal failure Status: Acute (2) Edema Status: Acute (3) Shortness of breath Status: Acute Plan Plan of Care RENAL FUNCTION IMPROVING WITH GOOD UO AND DECLINING GFR. AGREE WITH DIURESIS. CONT ANTIBIOTICS. UROLOGY TO SEE FOR SCROTAL EDEMA Comment Review of Relevant I have reviewed the following items pascual (where applicable) has been applied. Labs Laboratory Tests Test 02/27/19 14:56 02/27/19 14:57 02/27/19 15:33 02/27/19 16:18 Glucose (Fingerstick) 32 mg/dL (70-99) 34 mg/dL (70-99) 59 mg/dL (70-99) 70 mg/dL (70-99) Test 02/27/19 17:22 02/27/19 18:27 02/27/19 20:35 02/27/19 20:56 Glucose (Fingerstick) 53 mg/dL (70-99) 84 mg/dL (70-99) 64 mg/dL (70-99) 67 mg/dL (70-99) Test 02/27/19 22:30 02/28/19 03:35 02/28/19 06:29 02/28/19 07:40 Glucose (Fingerstick) 83 mg/dL (70-99) 125 mg/dL (70-99) White Blood Count 5.5 x10^3/uL (4.0-11.0) 9.0 x10^3/uL (4.0-11.0) Red Blood Count 4.12 x10^6/uL (4.30-5.70) 4.12 x10^6/uL (4.30-5.70) Hemoglobin 12.5 g/dL (13.0-17.5) 12.8 g/dL (13.0-17.5) Hematocrit 40.0 % (39.0-53.0) 40.3 % (39.0-53.0) Mean Corpuscular Volume 97 fL (79-100) 98 fL (79-100) Mean Corpuscular Hemoglobin 30 pg (25-35) 31 pg (25-35) Mean Corpuscular Hemoglobin Concent 31 g/dL (31-37) 32 g/dL (31-37) Red Cell Distribution Width 15.1 % (11.5-14.5) 14.9 % (11.5-14.5) Platelet Count 181 x10^3/uL (140-400) 157 x10^3/uL (140-400) Neutrophils (%) (Auto) 71 % (31-73) Lymphocytes (%) (Auto) 18 % (24-48) Monocytes (%) (Auto) 9 % (0-9) Eosinophils (%) (Auto) 2 % (0-3) Basophils (%) (Auto) 1 % (0-3) Neutrophils # (Auto) 3.9 x10^3uL (1.8-7.7) Lymphocytes # (Auto) 1.0 x10^3/uL (1.0-4.8) Monocytes # (Auto) 0.5 x10^3/uL (0.0-1.1) Eosinophils # (Auto) 0.1 x10^3/uL (0.0-0.7) Basophils # (Auto) 0.0 x10^3/uL (0.0-0.2) Sodium Level 144 mmol/L (136-145) 149 mmol/L (136-145) Potassium Level 4.6 mmol/L (3.5-5.1) 4.9 mmol/L (3.5-5.1) Chloride Level 108 mmol/L (98-107) 111 mmol/L (98-107) Carbon Dioxide Level 28 mmol/L (21-32) 27 mmol/L (21-32) Anion Gap 8 (6-14) 11 (6-14) Blood Urea Nitrogen 57 mg/dL (8-26) 63 mg/dL (8-26) Creatinine 2.6 mg/dL (0.7-1.3) 3.2 mg/dL (0.7-1.3) Estimated GFR (Cockcroft-Gault) 25.7 20.2 Glucose Level 97 mg/dL (70-99) 156 mg/dL (70-99) Calcium Level 8.3 mg/dL (8.5-10.1) 8.1 mg/dL (8.5-10.1) Lactic Acid Level 1.2 mmol/L (0.4-2.0) Phosphorus Level 6.5 mg/dL (2.6-4.7) Magnesium Level 2.7 mg/dL (1.8-2.4) Amylase Level 31 U/L (25-115) Test 02/28/19 08:13 02/28/19 08:30 02/28/19 08:32 02/28/19 08:45 O2 Saturation 96 % (92-99) 94 % (92-99) Arterial Blood pH 7.44 (7.35-7.45) 7.19 (7.35-7.45) Arterial Blood pCO2 at Patient Temp 40 mmHg (35-46) 64 mmHg (35-46) Arterial Blood pO2 at Patient Temp 78 mmHg (75-108) 76 mmHg (75-108) Arterial Blood HCO3 26 mmol/L (21-28) 24 mmol/L (21-28) Arterial Blood Base Excess 2 mmol/L (-3-3) -5 mmol/L (-3-3) FiO2 100% vent 100% Nasal Screen MRSA (PCR) Negative (Negative) Urine Collection Type Unknown Urine Color [place] Urine Clarity Turbid Urine pH 5.0 Urine Specific [place] 1.025 Urine Protein >=300 mg/dL (NEG-TRACE) Urine Glucose (UA) Negative mg/dL (NEG) Urine Ketones (Stick) Trace mg/dL (NEG) Urine Blood Large (NEG) Urine Nitrite Negative (NEG) Urine Bilirubin Moderate (NEG) Urine Urobilinogen Dipstick 2.0 mg/dL (0.2 mg/dL) Urine Leukocyte Esterase Small (NEG) Urine RBC >40 /HPF (0-2) Urine WBC Occ /HPF (0-4) Urine Bacteria Few /HPF (0-FEW) Urine Hyaline Casts Moderate /HPF Urine Opiates Screen Neg (NEG) Urine Methadone Screen Neg (NEG) Urine Barbiturates Neg (NEG) Urine Phencyclidine Screen Neg (NEG) Urine Amphetamine/Methamphetamine Neg (NEG) Urine Benzodiazepines Screen Neg (NEG) Urine Cocaine Screen Neg (NEG) Urine Cannabinoids Screen Neg (NEG) Urine Ethyl Alcohol Neg (NEG) Test 02/28/19 09:00 02/28/19 12:44 02/28/19 17:22 03/01/19 04:33 Sodium Level 144 mmol/L (136-145) 144 mmol/L (136-145) Potassium Level 5.2 mmol/L (3.5-5.1) 3.8 mmol/L (3.5-5.1) Chloride Level 107 mmol/L (98-107) 108 mmol/L (98-107) Carbon Dioxide Level 25 mmol/L (21-32) 26 mmol/L (21-32) Anion Gap 12 (6-14) 10 (6-14) Blood Urea Nitrogen 62 mg/dL (8-26) 49 mg/dL (8-26) Creatinine 3.1 mg/dL (0.7-1.3) 2.1 mg/dL (0.7-1.3) Estimated GFR (Cockcroft-Gault) 20.9 32.8 BUN/Creatinine Ratio 20 (6-20) 23 (6-20) Glucose Level 156 mg/dL (70-99) 104 mg/dL (70-99) Calcium Level 8.2 mg/dL (8.5-10.1) 8.6 mg/dL (8.5-10.1) Ionized Calcium 1.10 mmol/L (1.13-1.32) Total Bilirubin 0.6 mg/dL (0.2-1.0) 1.1 mg/dL (0.2-1.0) Aspartate Amino Transf (AST/SGOT) 28 U/L (15-37) 19 U/L (15-37) Alanine Aminotransferase (ALT/SGPT) 27 U/L (16-63) 19 U/L (16-63) Alkaline Phosphatase 111 U/L (46-116) 93 U/L (46-116) BC-Kno-W-Type Natriuretic Peptide 5182 pg/mL (0-124) Total Protein 7.7 g/dL (6.4-8.2) 6.6 g/dL (6.4-8.2) Albumin 3.2 g/dL (3.4-5.0) 2.5 g/dL (3.4-5.0) Albumin/Globulin Ratio 0.7 (1.0-1.7) 0.6 (1.0-1.7) Procalcitonin < 0.10 ng/mL (0.00-0.10) Glucose (Fingerstick) 150 mg/dL (70-99) 111 mg/dL (70-99) White Blood Count 5.9 x10^3/uL (4.0-11.0) Red Blood Count 4.23 x10^6/uL (4.30-5.70) Hemoglobin 12.8 g/dL (13.0-17.5) Hematocrit 39.7 % (39.0-53.0) Mean Corpuscular Volume 94 fL (79-100) Mean Corpuscular Hemoglobin 30 pg (25-35) Mean Corpuscular Hemoglobin Concent 32 g/dL (31-37) Red Cell Distribution Width 14.6 % (11.5-14.5) Platelet Count 164 x10^3/uL (140-400) Neutrophils (%) (Auto) 73 % (31-73) Lymphocytes (%) (Auto) 17 % (24-48) Monocytes (%) (Auto) 8 % (0-9) Eosinophils (%) (Auto) 1 % (0-3) Basophils (%) (Auto) 0 % (0-3) Neutrophils # (Auto) 4.3 x10^3uL (1.8-7.7) Lymphocytes # (Auto) 1.0 x10^3/uL (1.0-4.8) Monocytes # (Auto) 0.5 x10^3/uL (0.0-1.1) Eosinophils # (Auto) 0.1 x10^3/uL (0.0-0.7) Basophils # (Auto) 0.0 x10^3/uL (0.0-0.2) Test 03/01/19 09:45 03/01/19 13:21 O2 Saturation 94 % (92-99) Arterial Blood pH 7.50 (7.35-7.45) Arterial Blood pCO2 at Patient Temp 34 mmHg (35-46) Arterial Blood pO2 at Patient Temp 68 mmHg (75-108) Arterial Blood HCO3 26 mmol/L (21-28) Arterial Blood Base Excess 3 mmol/L (-3-3) FiO2 80% Glucose (Fingerstick) 124 mg/dL (70-99) Laboratory Tests Test 02/28/19 17:22 03/01/19 04:33 03/01/19 09:45 03/01/19 13:21 Glucose (Fingerstick) 111 mg/dL (70-99) 124 mg/dL (70-99) White Blood Count 5.9 x10^3/uL (4.0-11.0) Red Blood Count 4.23 x10^6/uL (4.30-5.70) Hemoglobin 12.8 g/dL (13.0-17.5) Hematocrit 39.7 % (39.0-53.0) Mean Corpuscular Volume 94 fL (79-100) Mean Corpuscular Hemoglobin 30 pg (25-35) Mean Corpuscular Hemoglobin Concent 32 g/dL (31-37) Red Cell Distribution Width 14.6 % (11.5-14.5) Platelet Count 164 x10^3/uL (140-400) Neutrophils (%) (Auto) 73 % (31-73) Lymphocytes (%) (Auto) 17 % (24-48) Monocytes (%) (Auto) 8 % (0-9) Eosinophils (%) (Auto) 1 % (0-3) Basophils (%) (Auto) 0 % (0-3) Neutrophils # (Auto) 4.3 x10^3uL (1.8-7.7) Lymphocytes # (Auto) 1.0 x10^3/uL (1.0-4.8) Monocytes # (Auto) 0.5 x10^3/uL (0.0-1.1) Eosinophils # (Auto) 0.1 x10^3/uL (0.0-0.7) Basophils # (Auto) 0.0 x10^3/uL (0.0-0.2) Sodium Level 144 mmol/L (136-145) Potassium Level 3.8 mmol/L (3.5-5.1) Chloride Level 108 mmol/L (98-107) Carbon Dioxide Level 26 mmol/L (21-32) Anion Gap 10 (6-14) Blood Urea Nitrogen 49 mg/dL (8-26) Creatinine 2.1 mg/dL (0.7-1.3) Estimated GFR (Cockcroft-Gault) 32.8 BUN/Creatinine Ratio 23 (6-20) Glucose Level 104 mg/dL (70-99) Calcium Level 8.6 mg/dL (8.5-10.1) Total Bilirubin 1.1 mg/dL (0.2-1.0) Aspartate Amino Transf (AST/SGOT) 19 U/L (15-37) Alanine Aminotransferase (ALT/SGPT) 19 U/L (16-63) Alkaline Phosphatase 93 U/L (46-116) Total Protein 6.6 g/dL (6.4-8.2) Albumin 2.5 g/dL (3.4-5.0) Albumin/Globulin Ratio 0.6 (1.0-1.7) O2 Saturation 94 % (92-99) Arterial Blood pH 7.50 (7.35-7.45) Arterial Blood pCO2 at Patient Temp 34 mmHg (35-46) Arterial Blood pO2 at Patient Temp 68 mmHg (75-108) Arterial Blood HCO3 26 mmol/L (21-28) Arterial Blood Base Excess 3 mmol/L (-3-3) FiO2 80% Microbiology 02/28/19 Blood Culture - Preliminary, Resulted NO GROWTH AFTER 1 DAY Medications Current Medications Ondansetron HCl (Zofran) 4 mg PRN Q8HRS PRN IV NAUSEA/VOMITING; Start 02/27/19 at 16:45; Stop 02/28/19 at 16:44; Status DC Morphine Sulfate (Morphine Sulfate) 2 mg PRN Q2HR PRN IV PAIN; Start 02/27/19 at 16:45; Stop 02/28/19 at 16:44; Status DC Acetaminophen (Tylenol) 650 mg PRN Q4HRS PRN PO FEVER Last administered on 02/27at 21:06; Start 02/27/19 at 16:45; Stop 02/28/19 at 16:44; Status DC Dextrose (Dextrose 50%-Water Syringe) 12.5 gm PRN Q15MIN PRN IV SEE COMMENTS; Start 02/27/19 at 16:45 Heparin Sodium (Porcine) (Heparin Sodium) 5,000 unit Q8HRS SQ Last administered on 03/01/19at 13:46; Start 02/27/19 at 17:00 Lorazepam (Ativan) 1 mg PRN Q8HRS PRN IV ANXIETY / AGITATION Last administered on 02/28/19at 02:57; Start 02/28/19 at 02:45 Etomidate (Amidate) 20 mg STK-MED ONCE IV ; Start 02/28/19 at 06:59; Stop at 07:00; Status DC Rocuronium Sperry (Zemuron) 50 mg STK-MED ONCE .ROUTE ; Start 02/28/19 at 07:00 ; Stop 02/28/19 at 09:42; Status DC Dopamine HCl/ Dextrose 250 ml @ 12.266 mls/ hr CONT PRN IV SEE I/O RECORD Last administered on 02/28/19at 08:06; Start 02/28/19 at 07:15 Fentanyl Citrate 30 ml @ 0 mls/hr CONT PRN IV SEE PROTOCOL; Start 02/28/19 at 07:15; Stop 02/28/19 at 07:59; Status DC Propofol 100 ml @ 0 mls/hr CONT PRN IV SEE PROTOCOL; Start 02/28/19 at 07:15; Stop 02/28/19 at 07:59; Status DC Fentanyl Citrate (Fentanyl 2ml Vial) 25 mcg PRN Q1HR PRN IV SEE COMMENTS; Start 02/28/19 at 07:15; Stop 02/28/19 at 07:59; Status DC Fentanyl Citrate (Fentanyl 2ml Vial) 50 mcg PRN Q1HR PRN IV SEE COMMENTS; Start 02/28/19 at 07:15; Stop 02/28/19 at 07:59; Status DC Midazolam HCl 100 ml @ 0 mls/hr CONT PRN IV SEE PROTOCOL Last administered on at 05:42; Start 02/28/19 at 07:15 Sodium Chloride 1,000 ml @ 1,000 mls/hr Q1H IV Last administered on 02/28/19at 07:32; Start 02/28/19 at 07:32; Stop 02/28/19 at 10:09; Status DC Fentanyl Citrate (Fentanyl 2ml Vial) 25 mcg PRN Q30MIN PRN IV see comments; Start 02/28/19 at 07:45; Stop 02/28/19 at 09:42; Status DC Lorazepam (Ativan) 1 mg PRN Q30MIN PRN IV SEDATION; Start 02/28/19 at 07:45; Stop 02/28/19 at 09:42; Status DC Fentanyl Citrate 30 ml @ 2.5 mls/hr CONT PRN PRN IV SEE I/O RECORD Last administered on 03/01/19at 12:22; Start 02/28/19 at 07:45 Propofol 100 ml @ 0 mls/hr CONT PRN IV SEE I/O RECORD; Start 02/28/19 at 07:45 Vecuronium Sperry (Norcuron Bolus) 10 mg PRN Q30MIN PRN IV SHIVERING; Start at 07:45; Stop 02/28/19 at 09:42; Status DC Meperidine HCl (Demerol) 12.5 mg PRN Q30MIN PRN IV SHIVERING; Start 02/28/19 at 07:45; Stop 02/28/19 at 09:42; Status DC Multi-Ingred Cream/Lotion/Oil/ Oint (Artificial Tears Eye Ointment) 1 jennifer PRN Q6HRS PRN OU 0.5 INCH FOR DRY EYE; Start 02/28/19 at 07:45; Stop 02/28/19 at 09 :42; Status DC Famotidine (Pepcid Vial) 20 mg BID IVP Last administered on 02/28/19at 11:03; Start 02/28/19 at 09:00; Stop 02/28/19 at 14:25; Status DC Aspirin (Aspirin) 300 mg DAILY ME ; Start 02/28/19 at 09:00; Stop 02/28/19 at 09 :42; Status DC Sodium Chloride (Normal Saline Flush) 3 ml QSHIFT PRN IV AFTER MEDS AND BLOOD DRAWS; Start 02/28/19 at 07:45 Acetaminophen (Tylenol) 650 mg Q6HRS NG ; Start 02/28/19 at 12:00; Stop at 12:00; Status DC Acetaminophen (Tylenol Supp) 650 mg PRN Q6HRS PRN ME MILD PAIN / TEMP; Start at 07:45; Stop 03/01/19 at 07:45; Status DC Acetaminophen (Tylenol) 650 mg PRN Q6HRS PRN NG MILD PAIN / TEMP; Start at 07:45; Stop 03/01/19 at 07:45; Status DC Info (Icu Electrolyte Protocol) 1 ea DAILY PRN MC PER PROTOCOL; Start 03/02/19 at 07:45; Stop 03/02/19 at 07:45; Status DC Furosemide (Lasix) 60 mg 1X ONCE IVP Last administered on 02/28/19at 08:30; Start 02/28/19 at 08:30; Stop 02/28/19 at 08:31; Status DC Ceftriaxone Sodium (Rocephin) 1 gm Q24H IVP Last administered on 02/28/19at 11: 03; Start 02/28/19 at 11:00; Stop 02/28/19 at 11:18; Status DC Calcium Chloride 1000 mg/Dextrose 60 ml @ 120 mls/hr 1X ONCE IV Last administered on 02/28/19at 11:03; Start 02/28/19 at 10:30; Stop 02/28/19 at 10:59 ; Status DC Meropenem 500 mg/ Sodium Chloride 50 ml @ 100 mls/hr Q8HRS IV Last administered on 03/01/19at 13:37; Start 02/28/19 at 14:00 Linezolid/Dextrose 300 ml @ 300 mls/hr Q12HR IV Last administered on at 08:47; Start 02/28/19 at 11:30 Micafungin Sodium 100 mg/Dextrose 100 ml @ 100 mls/hr Q24H IV Last administered on 03/01/19at 12:14; Start 02/28/19 at 12:00 Furosemide (Lasix) 40 mg BID92 IVP Last administered on 03/01/19at 13:39; Start 02/28/19 at 14:00 Famotidine (Pepcid Vial) 20 mg QHS IVP Last administered on 02/28/19at 20:41; Start 02/28/19 at 21:00 Albuterol/ Ipratropium (Duoneb) 3 ml RTQID NEB Last administered on 03/01/19at 12:35; Start 02/28/19 at 16:00 Haloperidol Lactate (Haldol Inj) 5 mg PRN Q6HRS PRN IVP AGITATION Last administered on 02/28/19at 18:21; Start 02/28/19 at 15:15 Vecuronium Sperry (Norcuron Bolus) 8 mg PRN Q4HRS PRN IV MUSCLE SPASMS Last administered on 02/28/19at 15:27; Start 02/28/19 at 15:15 Perflutren Protein Type A Microsphe (Optison) 0.66 mg PRN 1X PRN IV SEE COMMENTS; Start 03/01/19 at 10:00; Stop 03/02/19 at 09:59 Active Scripts Active Reported Proair Hfa Inhaler (Albuterol Sulfate) 8.5 Gm Hfa.aer.ad 1 Puff INH PRN Q6HRS PRN Lantus Solostar (Insulin Glargine,Hum.rec.anlog) 100 Unit/1 Ml Insuln.pen 20 Unit SQ QHS Humalog (Insulin Lispro) 100 Unit/1 Ml Cartridge 6 Unit SQ TIDWMEALS Doxazosin Mesylate 2 Mg Tablet 2 Mg PO DAILY Omeprazole 40 Mg Capsule.dr 40 Mg PO DAILY Amlodipine Besylate 10 Mg Tablet 10 Mg PO DAILY Atorvastatin Calcium 20 Mg Tablet 20 Mg PO DAILY Atenolol 50 Mg Tablet 50 Mg PO DAILY Losartan Potassium 100 Mg Tablet 100 Mg PO DAILY Aspirin 81 Mg Tab.chew 81 Mg PO DAILY Glyburide 5 Mg Tablet 1 Tab PO BID Vitals/I & O Vital Sign - Last 24 Hours 02/28/19 02/28/19 02/28/19 02/28/19 15:00 15:34 16:00 16:00 Temp 98.6 98.6 Pulse 64 63 Resp 20 20 B/P (MAP) 82/49 (60) 89/55 (66) Pulse Ox 96 96 95 O2 Delivery Ventilator Ventilator Mechanical Ventilator Ventilator 02/28/19 02/28/19 02/28/19 02/28/19 17:00 18:00 18:02 19:00 Pulse 64 68 66 Resp 20 20 20 20 B/P (MAP) 109/57 (74) 110/62 (78) 117/62 (80) Pulse Ox 97 95 94 95 O2 Delivery Ventilator Ventilator Ventilator Ventilator 02/28/19 02/28/19 02/28/19 02/28/19 20:00 20:00 20:36 21:00 Temp 99.2 99.2 Pulse 66 72 Resp 19 19 B/P (MAP) 124/75 (91) 126/62 (83) Pulse Ox 92 95 96 O2 Delivery Mechanical Ventilator Ventilator Ventilator Ventilator 02/28/19 02/28/19 02/28/19 02/28/19 22:00 23:00 23:33 23:59 Pulse 72 71 Resp 19 20 B/P (MAP) 133/67 (89) 136/67 (90) Pulse Ox 97 95 95 O2 Delivery Ventilator Ventilator Ventilator Mechanical Ventilator 03/01/19 03/01/19 03/01/19 03/01/19 00:00 00:12 01:00 02:00 Temp 99.2 99.2 Pulse 71 70 70 Resp 19 20 20 B/P (MAP) 135/67 (89) 125/61 (82) 126/61 (82) Pulse Ox 92 96 96 O2 Delivery Ventilator Ventilator Ventilator Ventilator 03/01/19 03/01/19 03/01/19 03/01/19 02:01 03:00 04:00 04:00 Temp 99.0 99.0 Pulse 70 71 Resp 20 18 B/P (MAP) 132/62 (85) 133/65 (87) Pulse Ox 96 96 93 O2 Delivery Ventilator Ventilator Ventilator Mechanical Ventilator 03/01/19 03/01/19 03/01/19 03/01/19 04:48 05:00 06:00 07:00 Pulse 71 70 70 Resp 20 20 20 B/P (MAP) 144/70 (94) 129/60 (83) 140/64 (89) Pulse Ox 96 96 97 96 O2 Delivery Ventilator Ventilator Ventilator Ventilator 03/01/19 03/01/19 03/01/19 03/01/19 07:32 08:00 08:00 08:55 Temp 98.6 98.6 Pulse 70 Resp 20 20 B/P (MAP) 125/58 (80) Pulse Ox 96 95 96 O2 Delivery Ventilator Mechanical Ventilator Ventilator O2 Flow Rate 4.0 03/01/19 03/01/19 03/01/19 03/01/19 09:00 09:42 10:00 11:00 Pulse 70 82 77 Resp 20 20 20 B/P (MAP) 120/58 (78) 117/60 (79) 130/66 (87) Pulse Ox 96 96 95 96 O2 Delivery Ventilator Ventilator Ventilator Ventilator 03/01/19 03/01/19 03/01/19 03/01/19 12:00 12:00 12:22 12:36 Pulse 74 Resp 20 20 B/P (MAP) 138/77 (97) Pulse Ox 93 96 94 O2 Delivery Mechanical Ventilator Ventilator Ventilator Ventilator 03/01/19 03/01/19 13:00 13:35 Temp 99.0 99.0 Pulse 80 Resp 20 20 B/P (MAP) 118/68 (85) Pulse Ox 94 93 O2 Delivery Ventilator Ventilator Intake and Output 02/28/19 02/28/19 03/01/19 15:00 23:00 07:00 Intake Total 531.15 ml 790.99 ml 201 ml Output Total 2200 ml 2890 ml 970 ml Balance -1668.85 ml -2099.01 ml -769 ml LIONEL FUENTES MD Mar 01, 2019 14:08
[2019-03-01 15:20] LABS: CALCIUM 8.5 mg/dL (8.5-10.1); CREATININE 2.1 mg/dL (0.7-1.3); GFR 32.8; POTASSIUM 3.7 mmol/L (3.5-5.1)
[2019-03-01] MEDS ORDERED: DIGOXIN IV 500 MCG/2 ML AMPUL. IV STA (15:34)
--- NOTE | 2019-03-01 16:00 | NUR ---
Patient experiencing dysrhythmias sinus betzy to SVT; labs checked, wnl. Dr Gomez notified, no orders received.
--- NOTE | 2019-03-01 17:09 | RAD ---
CT abdomen and pelvis without contrast 03/01/2019 CLINICAL INDICATION: Abdominal distention, possible sepsis. COMPARISON: Abdominal radiograph 02/28/2019, acute abdominal series 02/27/2018 TECHNIQUE: Multiple CT images of the abdomen and pelvis were obtained without contrast. *One or more of the following individualized dose reduction techniques were utilized for this examination: 1. Automated exposure control. 2. Adjustment of the mA and/or kV according to patient size. 3. Use of iterative reconstruction technique. FINDINGS: Mild cardiomegaly without significant pericardial effusion. Coronary artery calcifications are noted. Bilateral lower lobe consolidation. Evaluation of the solid abdominal pelvic viscera, lymphadenopathy and vasculature is limited due to lack of intravenous contrast and body habitus resulting in image degradation. The unenhanced contours of the liver, gallbladder, spleen, adrenal glands and pancreas are grossly unremarkable. Both kidneys present without hydronephrosis. There is mild, symmetric nonspecific perinephric stranding. There is a nonobstructive 7 mm calculus in the superior pole of the left kidney. There is a 2.5 cm hypodensity in the inferior pole the right kidney which is incompletely visualized and poorly characterized due to the previously mentioned factors. There is asymmetric stranding adjacent to the left renal pelvis. Abdominal aorta normal in caliber with trace calcified atheromatous plaque. There is a transesophageal gastric tube terminating in the duodenal bulb. Small and large bowel loops are normal in caliber without obstruction. There is minimal fluid in the anterior dependent peritoneum. Mild presacral edema. Moderate diffuse body wall edema. Urinary bladder is decompressed about a Coburn catheter. Prostate and seminal vesicles are grossly unremarkable. No retroperitoneal or mesenteric lymphadenopathy. Mild bilateral external iliac lymphadenopathy measuring 2.0 x 2.4 cm on the right series 2/image 97 and 1.6 x 2.1 cm on the left series 2/image 98. There is a small fat-containing umbilical hernia. There are no destructive osseous lesions. IMPRESSION: 1. Mild nonspecific perinephric stranding with slight asymmetric stranding adjacent to the left renal pelvis. Findings may be due to chronic kidney disease, though ascending urinary tract infection is not excluded. 2. Bilateral lower lobe consolidation concerning for multifocal pneumonia or pneumonitis with aspiration not excluded. 3. Right renal hypodensity measuring 2.5 cm is incompletely evaluated on noncontrast examination. Follow-up MRI or CT abdomen and pelvis renal protocol with contrast is recommended for further evaluation. 4. Anasarca. 5. Mild bilateral external iliac lymphadenopathy, may be reactive, though follow-up CT abdomen and pelvis in 3 months is recommended to assess for stability/resolution. 6. Nonobstructive left nephrolithiasis. 7. Coronary artery calcifications. Electronically signed by: vOidio Hilliard MD (03/01/2019 5:04 PM) [facility] [place]
[2019-03-01] MEDS ORDERED: IV NORMAL SALINE 500ML BAG 500 ML IV ONE (18:45)
[2019-03-01] MEDS: FAMOTIDINE 20 MG/2 ML VIAL IVP SCH (21:24)
[2019-03-02] VITALS (24 sets, daily range): BP systolic 102–145; BP diastolic 54–70
[2019-03-02] MEDS: MEROPENEM 500 MG in IV NORMAL SALINE 50ML 50 ML IV SCH ×3 (06:08→22:14)
[2019-03-02] MEDS: HEPARIN for SUB-Q USE 5,000 UNIT/ML VIAL. SQ SCH ×3 (06:09→22:15)
[2019-03-02] MEDS ORDERED: ELECTROLYTE (ICU) PROTOCOL. MC PRN (07:45)
--- NOTE | 2019-03-02 07:59 | RAD ---
Portable chest, 03/02/2019: HISTORY: Respiratory failure Comparison is made to yesterday's study. The ET tube tip lies approximately 2 cm above the armani. An NG tube extends into the stomach. The heart is enlarged. There are moderate unchanged bibasilar opacities compatible with atelectasis/consolidation. A component of pleural fluid cannot be excluded. There is no evidence of pneumothorax. No new abnormality is detected. IMPRESSION: No significant change since yesterday's study. Electronically signed by: Moose Astorga MD (03/02/2019 7:56 AM) [facility]
[2019-03-02] MEDS: IPRATRPIUM/ALBUTEROL 0.5/2.5MG 3 ML NEBU. NEB SCH ×4 (08:03→19:50)
--- NOTE | 2019-03-02 08:16 | CARD ---
MR#: [id number] Account#: Date of Study: 03/01/2019 Ordering Physician: Félix: Cami Villagran RDCS APPROVED REPORT EXAM: Two-dimensional and M-mode echocardiogram with Doppler and color Doppler. Other Information Quality : PoorHR: 85bpm Rhythm : APC's INDICATION Dyspnea Echo Enhancing Agent Indication: Endocardial border delineation Agent/Amount Used: Optison 4mL RISK FACTORS Hypertension Obesity Hyperlipidemia Diabetes 2D DIMENSIONS RVDd4.7 (2.9-3.5cm)Left Atrium(2D)3.6 (1.6-4.0cm) IVSd1.2 (0.7-1.1cm)Aortic Root(2D)4.1 (2.0-3.7cm) LVDd5.4 (3.9-5.9cm)LVOT Diameter2.2 (1.8-2.4cm) PWd1.2 (0.7-1.1cm)LVDs3.5 (2.5-4.0cm) FS (%) 35.7 %SV91.2 ml LVEF(%)64.7 (>50%) Aortic Valve AoV Peak Jim.144.9cm/Mitesh Peak GR.10.4mmHg LVOT Peak Jim.101.6cm/sAVA (VMAX)2.63cm2 Mitral Valve MV E Hlvapbas50.7cm/sMV DECEL PODQ541st MV A Zadhyief79.9cm/sE/A Ratio0.9 MV A Tjyiadui601mm Pulmonary Valve PV Peak Hcgobnsv455.4cm/s Tricuspid Valve TR P. Qglskdjs834rx/sTR Peak Gr.28mmHg Pulmonary Vein S1 Dbmiqzmz83.9cm/sD2 Gsshprhq10.2cm/s PVa [id number] LEFT VENTRICLE The left ventricle is normal size. There is mild concentric left ventricular hypertrophy. The left ve ntricular systolic function is normal. The ejection fraction is 60-65%. There is normal LV segmental wall motion. Transmitral Doppler flow pattern is Grade I-abnormal relaxation pattern. RIGHT VENTRICLE The right ventricle is mildly dilated. The right ventricular systolic function is normal. ATRIA The left atrium size is normal. The right atrium size is normal. The interatrial septum is intact wit h no evidence for an atrial septal defect or patent foramen ovale as noted on 2-D or Doppler imaging. AORTIC VALVE The aortic valve is normal in structure and function. Doppler and Color Flow revealed no significant aortic regurgitation. There is no significant aortic valvular stenosis. MITRAL VALVE The mitral valve is normal in structure and function. There is no mitral valve stenosis. Doppler and Color Flow revealed no mitral valve regurgitation noted. TRICUSPID VALVE The tricuspid valve is normal in structure and function. Doppler and Color Flow revealed trace tricus pid regurgitation. Estimated PAP 33-38 mmHg. There is no tricuspid valve stenosis. PULMONIC VALVE Doppler and Color Flow revealed no pulmonic valvular regurgitation. GREAT VESSELS The aortic root is mildly enlarged. IVC was not well visualized. PERICARDIAL EFFUSION There is no pleural effusion. There is no evidence of significant pericardial effusion. Critical Notification Critical Value: No <Conclusion> The left ventricular systolic function is normal. The ejection fraction is 60-65%. There is normal LV segmental wall motion. Transmitral Doppler flow pattern is Grade I-abnormal relaxation pattern. Trace tricuspid regurgitation. Estimated PAP 33-38 mmHg. There is no evidence of significant pericardial effusion. Signed by : Jean Claude Gomez, Electronically Approved : 03/02/2019 08:13:15
[2019-03-02] MEDS: MIDAZOLAM 100mg/100ml NS BAG 100 ML IV PRN ×2 (08:34→19:01)
--- NOTE | 2019-03-02 08:34 | PDOC ---
Infectious Disease Note Subjective Subjective intubated/sedated Vital Sign Vital Signs Vital Signs Date Time Temp Pulse Resp B/P (MAP) Pulse Ox O2 Delivery O2 Flow Rate FiO2 03/02/19 08:03 94 Ventilator 03/02/19 07:00 74 11 116/59 (78) 03/02/19 04:00 99.5 99.5 03/01/19 16:00 Physical Exam PHYSICAL EXAM GENERAL: Sedated and intubated. HEENT: pupils equal. ETT. OGT NECK: Supple. LUNGS: Decreased, has some crackles. HEART: S1, S2. ABDOMEN: Distended with decreased bowel sounds. Less firm GENITOURINARY: He has 3-4+ scrotal swelling with some erythema. No gross warmth. EXTREMITIES: No clubbing, cyanosis with 3+ edema. Generalized anasarca. RLE stump with chronic wound. No erythema/fluctuance/warmth SKIN: Warm to touch without signs of generalized rash. AR MANAGER: Unresponsive/sedated PIV Labs Lab Laboratory Tests Test 03/01/19 09:45 03/01/19 13:21 03/01/19 14:55 O2 Saturation 94 % (92-99) Arterial Blood pH 7.50 (7.35-7.45) Arterial Blood pCO2 at Patient Temp 34 mmHg (35-46) Arterial Blood pO2 at Patient Temp 68 mmHg (75-108) Arterial Blood HCO3 26 mmol/L (21-28) Arterial Blood Base Excess 3 mmol/L (-3-3) FiO2 80% Glucose (Fingerstick) 124 mg/dL (70-99) Sodium Level 143 mmol/L (136-145) Potassium Level 3.7 mmol/L (3.5-5.1) Chloride Level 107 mmol/L (98-107) Carbon Dioxide Level 29 mmol/L (21-32) Anion Gap 7 (6-14) Blood Urea Nitrogen 42 mg/dL (8-26) Creatinine 2.1 mg/dL (0.7-1.3) Estimated GFR (Cockcroft-Gault) 32.8 Glucose Level 120 mg/dL (70-99) Calcium Level 8.5 mg/dL (8.5-10.1) Magnesium Level 2.0 mg/dL (1.8-2.4) Micro CT IMPRESSION: 1. Mild nonspecific perinephric stranding with slight asymmetric stranding adjacent to the left renal pelvis. Findings may be due to chronic kidney disease, though ascending urinary tract infection is not excluded. 2. Bilateral lower lobe consolidation concerning for multifocal pneumonia or pneumonitis with aspiration not excluded. 3. Right renal hypodensity measuring 2.5 cm is incompletely evaluated on noncontrast examination. Follow-up MRI or CT abdomen and pelvis renal protocol with contrast is recommended for further evaluation. 4. Anasarca. 5. Mild bilateral external iliac lymphadenopathy, may be reactive, though follow-up CT abdomen and pelvis in 3 months is recommended to assess for stability/resolution. 6. Nonobstructive left nephrolithiasis. 7. Coronary artery calcifications. Microbiology 02/28/19 Blood Culture - Preliminary, Resulted NO GROWTH AFTER 1 DAY Objective Assessment Questionable sepsis. Acute respiratory failure, intubated, secondary to fluid overload with questionable aspiration. Scrotal edema. Questionable ileus given apparent food contacts and has OG tube versus mild obstruction versus diabetic gastroparesis. Status post code. Fluid overload - diuresing well. Acute kidney injury. Distant history of group B strep, Acinetobacter, Porphyromonas, plus anaerobes. Plan Plan of Care cont Meropenem Zyvox - Avoid Vanc with LEONARD Micafungin BC NGTD F/u labs F/u abd firmness better - maybe sec to generalized edema - better D/w nursing Critically ill QUIANA PACK MD Mar 02, 2019 08:34
--- NOTE | 2019-03-02 08:58 | PDOC ---
PULMONARY PROGRESS NOTES Subjective SEDATED ON AC MODE Vitals Vital Signs Date Time Temp Pulse Resp B/P (MAP) Pulse Ox O2 Delivery O2 Flow Rate FiO2 03/02/19 08:03 94 Ventilator 03/02/19 08:00 99.6 74 10 119/62 (81) 99.6 03/01/19 16:00 Lungs: Crackles Cardiovascular: S1, S2 Abdomen: Other (OBESE) Labs Laboratory Tests Test 02/28/19 09:00 02/28/19 12:44 02/28/19 17:22 03/01/19 04:33 Sodium Level 144 mmol/L (136-145) 144 mmol/L (136-145) Potassium Level 5.2 mmol/L (3.5-5.1) 3.8 mmol/L (3.5-5.1) Chloride Level 107 mmol/L (98-107) 108 mmol/L (98-107) Carbon Dioxide Level 25 mmol/L (21-32) 26 mmol/L (21-32) Anion Gap 12 (6-14) 10 (6-14) Blood Urea Nitrogen 62 mg/dL (8-26) 49 mg/dL (8-26) Creatinine 3.1 mg/dL (0.7-1.3) 2.1 mg/dL (0.7-1.3) Estimated GFR (Cockcroft-Gault) 20.9 32.8 BUN/Creatinine Ratio 20 (6-20) 23 (6-20) Glucose Level 156 mg/dL (70-99) 104 mg/dL (70-99) Calcium Level 8.2 mg/dL (8.5-10.1) 8.6 mg/dL (8.5-10.1) Ionized Calcium 1.10 mmol/L (1.13-1.32) Total Bilirubin 0.6 mg/dL (0.2-1.0) 1.1 mg/dL (0.2-1.0) Aspartate Amino Transf (AST/SGOT) 28 U/L (15-37) 19 U/L (15-37) Alanine Aminotransferase (ALT/SGPT) 27 U/L (16-63) 19 U/L (16-63) Alkaline Phosphatase 111 U/L (46-116) 93 U/L (46-116) TR-Htf-J-Type Natriuretic Peptide 5182 pg/mL (0-124) Total Protein 7.7 g/dL (6.4-8.2) 6.6 g/dL (6.4-8.2) Albumin 3.2 g/dL (3.4-5.0) 2.5 g/dL (3.4-5.0) Albumin/Globulin Ratio 0.7 (1.0-1.7) 0.6 (1.0-1.7) Procalcitonin < 0.10 ng/mL (0.00-0.10) Glucose (Fingerstick) 150 mg/dL (70-99) 111 mg/dL (70-99) White Blood Count 5.9 x10^3/uL (4.0-11.0) Red Blood Count 4.23 x10^6/uL (4.30-5.70) Hemoglobin 12.8 g/dL (13.0-17.5) Hematocrit 39.7 % (39.0-53.0) Mean Corpuscular Volume 94 fL (79-100) Mean Corpuscular Hemoglobin 30 pg (25-35) Mean Corpuscular Hemoglobin Concent 32 g/dL (31-37) Red Cell Distribution Width 14.6 % (11.5-14.5) Platelet Count 164 x10^3/uL (140-400) Neutrophils (%) (Auto) 73 % (31-73) Lymphocytes (%) (Auto) 17 % (24-48) Monocytes (%) (Auto) 8 % (0-9) Eosinophils (%) (Auto) 1 % (0-3) Basophils (%) (Auto) 0 % (0-3) Neutrophils # (Auto) 4.3 x10^3uL (1.8-7.7) Lymphocytes # (Auto) 1.0 x10^3/uL (1.0-4.8) Monocytes # (Auto) 0.5 x10^3/uL (0.0-1.1) Eosinophils # (Auto) 0.1 x10^3/uL (0.0-0.7) Basophils # (Auto) 0.0 x10^3/uL (0.0-0.2) Test 03/01/19 09:45 03/01/19 13:21 03/01/19 14:55 O2 Saturation 94 % (92-99) Arterial Blood pH 7.50 (7.35-7.45) Arterial Blood pCO2 at Patient Temp 34 mmHg (35-46) Arterial Blood pO2 at Patient Temp 68 mmHg (75-108) Arterial Blood HCO3 26 mmol/L (21-28) Arterial Blood Base Excess 3 mmol/L (-3-3) FiO2 80% Glucose (Fingerstick) 124 mg/dL (70-99) Sodium Level 143 mmol/L (136-145) Potassium Level 3.7 mmol/L (3.5-5.1) Chloride Level 107 mmol/L (98-107) Carbon Dioxide Level 29 mmol/L (21-32) Anion Gap 7 (6-14) Blood Urea Nitrogen 42 mg/dL (8-26) Creatinine 2.1 mg/dL (0.7-1.3) Estimated GFR (Cockcroft-Gault) 32.8 Glucose Level 120 mg/dL (70-99) Calcium Level 8.5 mg/dL (8.5-10.1) Magnesium Level 2.0 mg/dL (1.8-2.4) Laboratory Tests Test 03/01/19 09:45 03/01/19 13:21 03/01/19 14:55 O2 Saturation 94 % (92-99) Arterial Blood pH 7.50 (7.35-7.45) Arterial Blood pCO2 at Patient Temp 34 mmHg (35-46) Arterial Blood pO2 at Patient Temp 68 mmHg (75-108) Arterial Blood HCO3 26 mmol/L (21-28) Arterial Blood Base Excess 3 mmol/L (-3-3) FiO2 80% Glucose (Fingerstick) 124 mg/dL (70-99) Sodium Level 143 mmol/L (136-145) Potassium Level 3.7 mmol/L (3.5-5.1) Chloride Level 107 mmol/L (98-107) Carbon Dioxide Level 29 mmol/L (21-32) Anion Gap 7 (6-14) Blood Urea Nitrogen 42 mg/dL (8-26) Creatinine 2.1 mg/dL (0.7-1.3) Estimated GFR (Cockcroft-Gault) 32.8 Glucose Level 120 mg/dL (70-99) Calcium Level 8.5 mg/dL (8.5-10.1) Magnesium Level 2.0 mg/dL (1.8-2.4) Medications Active Scripts Medications Dose Route/Sig Max Daily Dose Days Date Category Proair Hfa Inhaler (Albuterol Sulfate) 8.5 Gm Hfa.aer.ad 1 Puff INH PRN Q6HRS PRN 02/27/19 Reported Lantus Solostar (Insulin Glargine,Hum.rec.anlog) 100 Unit/1 Ml Insuln.pen 20 Unit SQ QHS 02/27/19 Reported Humalog (Insulin Lispro) 100 Unit/1 Ml Cartridge 6 Unit SQ TIDWMEALS 02/27/19 Reported Doxazosin Mesylate 2 Mg Tablet 2 Mg PO DAILY 02/27/19 Reported Omeprazole 40 Mg Capsule.dr 40 Mg PO DAILY 02/27/19 Reported Amlodipine Besylate 10 Mg Tablet 10 Mg PO DAILY 02/27/19 Reported Atorvastatin Calcium 20 Mg Tablet 20 Mg PO DAILY 02/27/19 Reported Atenolol 50 Mg Tablet 50 Mg PO DAILY 02/27/19 Reported Losartan Potassium 100 Mg Tablet 100 Mg PO DAILY 02/27/19 Reported Aspirin 81 Mg Tab.chew 81 Mg PO DAILY 02/27/19 Reported Glyburide 5 Mg Tablet 1 Tab PO BID 11/09/16 Reported Impression . IMPRESSION: 1. Acute hypoxemic hypercapnic respiratory failure. 2. Suspect sepsis. 3. In-house cardiopulmonary arrest. 4. Suspect severe pulmonary hypertension. 5. Acute on chronic right-sided heart failure. 6. Possible pneumonia. 7. Morbid obesity. 8. Diabetes. 9. ANASARCA <Conclusion>ECHO The left ventricular systolic function is normal. The ejection fraction is 60-65%. There is normal LV segmental wall motion. Transmitral Doppler flow pattern is Grade I-abnormal relaxation pattern. Trace tricuspid regurgitation. Estimated PAP 33-38 mmHg. There is no evidence of significant pericardial effusion. VENOUS 02/28 Impression: 1. There is no evidence of deep venous thrombosis from the bilateral common femoral to popliteal veins. 2. There is nonspecific right groin lymph node. Plan . AC MODE 80% 8 PEEP WILL CONTINUE SUPPORT ANITBX PER ID RULED OUT FOR OK 1. Continue support with assist control ventilation, adjust minute ventilation to normalize pH. 2. Empiric antibiotics. 3. Bilateral venous Dopplers of lower extremities.NEG 4. DVT and GI prophylaxis. 5. Consult Nephrology, Cardiology. MAGO NI MD Mar 02, 2019 08:58
[2019-03-02] MEDS: FUROSEMIDE 40 MG/4 ML VIAL. IVP SCH ×2 (08:59→14:06)
[2019-03-02 09:27] LABS: BASO % 0 % (0-3); EOS # 0.1 x10^3/uL (0.0-0.7); EOS % 2 % (0-3); HEMATOCRIT 40.3 % (39.0-53.0); HEMOGLOBIN 12.9 g/dL (13.0-17.5); LYMPH # 0.8 x10^3/uL (1.0-4.8); LYMPH % 14 % (24-48); MEAN CORPUSCULAR HEMOGLOBIN 30 pg (25-35); MEAN CORPUSCULAR HGB CONC 32 g/dL (31-37); MEAN CORPUSCULAR VOLUME 94 fL (79-100); MONO # 0.6 x10^3/uL (0.0-1.1); MONO % 11 % (0-9); NEUT # 4.2 x10^3uL (1.8-7.7); NEUT % 74 % (31-73); PLATELET COUNT 165 x10^3/uL (140-400); RED BLOOD COUNT 4.27 x10^6/uL (4.30-5.70); RED CELL DISTRIBUTION WIDTH 14.7 % (11.5-14.5); WHITE BLOOD COUNT 5.7 x10^3/uL (4.0-11.0)
[2019-03-02 09:34] LABS: ALBUMIN 2.2 g/dL (3.4-5.0); ALBUMIN/GLOBULIN RATIO 0.5 (1.0-1.7); CALCIUM 8.2 mg/dL (8.5-10.1); CREATININE 1.8 mg/dL (0.7-1.3); GFR 39.2; POTASSIUM 4.1 mmol/L (3.5-5.1); TOTAL BILIRUBIN 0.8 mg/dL (0.2-1.0); TOTAL PROTEIN 6.4 g/dL (6.4-8.2)
[2019-03-02 09:57] LABS: BASE EXCESS ABG 3 mmol/L (-3-3); HCO3 ABG 28 mmol/L (21-28); PCO2 ABG 44 mmHg (35-46); PO2 ABG 67 mmHg (75-108); SAT O2 ABG 93 % (92-99)
[2019-03-02 09:59] LABS: FIO2 ABG 80
--- NOTE | 2019-03-02 10:19 | PDOC ---
SUBJECTIVE Subjective Intubated and sedated OBJECTIVE Objective Physical Exam: General appearance: Intubated and sedated. Appears comfortable. Head: Normocephalic, without obvious abnormality. Intubated. Lungs: Regular respirations with machine assistance Abdomen: soft, obese . No masses, no organomegaly Pelvic: + swollen scrotum, no open areas or weeping, Nursing staff has this supported with a pillow case in "hammock" fashion and supported with a towel. Buried phallus with + Coburn in place draining clear yellow urine. Device in good working order. Vital Signs Vital Signs Date Time Temp Pulse Resp B/P (MAP) Pulse Ox O2 Delivery O2 Flow Rate FiO2 03/02/19 10:00 73 15 116/59 (78) 93 Ventilator 03/02/19 09:00 73 10 125/65 (85) 93 Ventilator 03/02/19 08:03 94 Ventilator 03/02/19 08:00 99.6 74 10 119/62 (81) 93 Ventilator 99.6 03/02/19 08:00 Mechanical Ventilator 03/02/19 07:00 74 11 116/59 (78) 93 Ventilator 03/02/19 06:39 18 92 Ventilator 03/02/19 06:09 15 92 Ventilator 03/02/19 06:00 74 18 110/62 (78) 85 Ventilator 03/02/19 05:30 93 Ventilator 03/02/19 05:00 76 16 114/62 (79) 93 Ventilator 03/02/19 04:00 Mechanical Ventilator 03/02/19 04:00 99.5 77 16 108/62 (77) 95 Ventilator 99.5 03/02/19 03:00 80 16 115/56 (75) 94 Ventilator 03/02/19 02:24 93 Ventilator 03/02/19 02:00 85 16 112/54 (73) 94 Ventilator 03/02/19 01:00 83 16 104/54 (71) 93 Ventilator 03/02/19 00:32 16 93 Ventilator 03/02/19 00:00 99.9 84 16 102/58 (73) 93 Ventilator 99.9 03/01/19 23:59 Mechanical Ventilator 03/01/19 23:25 93 Ventilator 03/01/19 23:00 85 16 97/53 (68) 93 Ventilator 03/01/19 22:00 94 15 101/54 (70) 93 Ventilator 03/01/19 21:00 116 15 93/55 (68) 93 Ventilator 03/01/19 20:13 93 Ventilator 03/01/19 20:00 122 20 90/57 (68) 93 Ventilator 03/01/19 20:00 Mechanical Ventilator 03/01/19 19:00 99.9 134 19 111/56 (74) 93 Ventilator 99.9 03/01/19 18:02 130 20 100/64 (76) 93 Ventilator 03/01/19 17:46 20 94 Ventilator 03/01/19 17:16 92 03/01/19 17:00 124 20 94/60 (71) 93 Ventilator 03/01/19 16:00 Mechanical Ventilator 03/01/19 16:00 99.1 124 20 121/66 (84) 93 Ventilator 99.1 03/01/19 15:00 118 20 103/59 (74) 93 Ventilator 03/01/19 14:00 138 20 109/53 (71) 92 Ventilator 03/01/19 13:00 99.0 80 20 118/68 (85) 94 Ventilator 99.0 03/01/19 12:36 94 Ventilator 03/01/19 12:22 20 96 Ventilator 03/01/19 12:00 74 20 138/77 (97) 93 Ventilator 03/01/19 12:00 Mechanical Ventilator 03/01/19 11:00 77 20 130/66 (87) 96 Ventilator I & O Intake and Output 03/02/19 07:00 Intake Total 1255.59 ml Output Total 6170 ml Balance -4914.41 ml IV Total 1255.59 ml Output Urine Total 5620 ml Gastric Drainage Total 550 ml PHYSICAL EXAM Physical Exam Physical Exam: General appearance: Intubated and sedated. Appears comfortable. Head: Normocephalic, without obvious abnormality. Intubated. Lungs: Regular respirations with machine assistance Abdomen: soft, obese . No masses, no organomegaly Pelvic: + swollen scrotum, no open areas or weeping, Nursing staff has this supported with a pillow case in "hammock" fashion and supported with a towel. Buried phallus with + Coburn in place draining clear yellow urine. Device in good working order. ASSESSMENT/PLAN Assessment/Plan Scrotal US done on 02/27 reviewed by Valentina= jason small hydroceles, no abscess. Bilateral hydroceles noted which are clinically insignificant. scrotal swelling is secondary to anasarca. Continue rest, ice , scrotal elevation. Nursing staff to continue to maintain Cbourn catheter. Would consider repeat US for significant increase in size or appearance ( doubling in size) Will follow peripherally Problems: (1) Edema COMMENT Lab Laboratory Tests Test 03/01/19 13:21 03/01/19 14:55 03/02/19 09:05 03/02/19 09:40 Glucose (Fingerstick) 124 mg/dL (70-99) Sodium Level 143 mmol/L (136-145) 146 mmol/L (136-145) Potassium Level 3.7 mmol/L (3.5-5.1) 4.1 mmol/L (3.5-5.1) Chloride Level 107 mmol/L (98-107) 111 mmol/L (98-107) Carbon Dioxide Level 29 mmol/L (21-32) 29 mmol/L (21-32) Anion Gap 7 (6-14) 6 (6-14) Blood Urea Nitrogen 42 mg/dL (8-26) 33 mg/dL (8-26) Creatinine 2.1 mg/dL (0.7-1.3) 1.8 mg/dL (0.7-1.3) Estimated GFR (Cockcroft-Gault) 32.8 39.2 Glucose Level 120 mg/dL (70-99) 120 mg/dL (70-99) Calcium Level 8.5 mg/dL (8.5-10.1) 8.2 mg/dL (8.5-10.1) Magnesium Level 2.0 mg/dL (1.8-2.4) White Blood Count 5.7 x10^3/uL (4.0-11.0) Red Blood Count 4.27 x10^6/uL (4.30-5.70) Hemoglobin 12.9 g/dL (13.0-17.5) Hematocrit 40.3 % (39.0-53.0) Mean Corpuscular Volume 94 fL (79-100) Mean Corpuscular Hemoglobin 30 pg (25-35) Mean Corpuscular Hemoglobin Concent 32 g/dL (31-37) Red Cell Distribution Width 14.7 % (11.5-14.5) Platelet Count 165 x10^3/uL (140-400) Neutrophils (%) (Auto) 74 % (31-73) Lymphocytes (%) (Auto) 14 % (24-48) Monocytes (%) (Auto) 11 % (0-9) Eosinophils (%) (Auto) 2 % (0-3) Basophils (%) (Auto) 0 % (0-3) Neutrophils # (Auto) 4.2 x10^3uL (1.8-7.7) Lymphocytes # (Auto) 0.8 x10^3/uL (1.0-4.8) Monocytes # (Auto) 0.6 x10^3/uL (0.0-1.1) Eosinophils # (Auto) 0.1 x10^3/uL (0.0-0.7) Basophils # (Auto) 0.0 x10^3/uL (0.0-0.2) BUN/Creatinine Ratio 18 (6-20) Total Bilirubin 0.8 mg/dL (0.2-1.0) Aspartate Amino Transf (AST/SGOT) 25 U/L (15-37) Alanine Aminotransferase (ALT/SGPT) 16 U/L (16-63) Alkaline Phosphatase 84 U/L (46-116) Total Protein 6.4 g/dL (6.4-8.2) Albumin 2.2 g/dL (3.4-5.0) Albumin/Globulin Ratio 0.5 (1.0-1.7) O2 Saturation 93 % (92-99) Arterial Blood pH 7.42 (7.35-7.45) Arterial Blood pCO2 at Patient Temp 44 mmHg (35-46) Arterial Blood pO2 at Patient Temp 67 mmHg (75-108) Arterial Blood HCO3 28 mmol/L (21-28) Arterial Blood Base Excess 3 mmol/L (-3-3) FiO2 80 Problem Qualifiers (1) Edema: Edema type: unspecified Qualified Codes: R60.9 - Edema, unspecified 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
[2019-03-02] MEDS: MICAFUNGIN 100 MG in IV DEXTROSE 5% 100ML 100 ML IV SCH (11:57)
--- NOTE | 2019-03-02 12:54 | PDOC ---
PROGRESS NOTES History of Present Illness History of Present Illness Assessment/Plan ACUTE RESP ARREST POST CODE ON FLOOR 02/27 Acute respiratory failure secondary to congestive heart failure, most probably acute on chronic diastolic. s/p intubation. Myocardial infarction ruled out. 3 weeks of bilateral general scrotal swelling and tenderness. +dyspnea, abd swelling, leg swelling. POA, Dm2 obesity, extreme, morbid hx RLE BKA RLE stump with chronic wound. No erythema/warmth left foot nail onychomycosis needs attention when more clinically stable Acute renal failure ATN Renal CONSULT 3.1-1.8 chronic venous insuff left lower leg nonspecific perinephric stranding with slight asymmetric stranding adjacent to the left renal pelvis. Findings may be due to chronic kidney disease, though ascending urinary tract infection is not excluded. Bilateral lower lobe consolidation concerning for multifocal pneumonia aspiration not excluded. Right renal hypodensity measuring 2.5 cm is incompletely evaluated on noncontrast examination. Follow-up MRI or CT abdomen and pelvis renal protocol with contrast is recommended for further evaluation. Anasarca. bilateral external iliac lymphadenopathy, may be reactive, though follow-up CT abdomen and pelvis in 3 months is recommended to assess for stability/resolution. Nonobstructive left nephrolithiasis. Coronary artery calcifications. The left ventricular systolic function is normal.ejection fraction is 60-65% .normal LV segmental wall motion. Transmitral Doppler flow pattern is Grade I-abnormal relaxation pattern. Trace tricuspid regurgitation. Estimated PAP 33-38 mmHg. PLAN INTUBATED // IN ICU VENT SUPPORT PULM CONSULT CARDIOLOGY CONSULT UROLOGY CONSULT reviewed ID CONSULT IV Meropenem cont Zyvox - Avoid Vanc with LEONARD IV Micafungin lactic acid/BNP follow ECHO noted PROCALCITONIN CT ABD/ PELVIS reviewed 38 MIN CC TIME Vitals Vitals Vital Signs Date Time Temp Pulse Resp B/P (MAP) Pulse Ox O2 Delivery O2 Flow Rate FiO2 03/02/19 12:16 93 Ventilator 03/02/19 12:00 99.4 80 15 121/60 (80) 99.4 03/01/19 16:00 Physical Exam Physical Exam GENERAL: Sedated and intubated. HEENT: pupils equal. ETT. OGT NECK: Supple. LUNGS: Decreased, has some crackles. HEART: S1, S2. ABDOMEN: Distended with decreased bowel sounds. Less firm GENITOURINARY: He has 3-4+ scrotal swelling with some erythema. No gross warmth. EXTREMITIES: No clubbing, cyanosis with 3+ edema. Generalized anasarca. RLE stump with chronic wound. No erythema/fluctuance/warmth SKIN: Warm to touch without signs of generalized rash. DATA CONVERSION DEVELOPER: Unresponsive/sedated PIV General: Other (SEDATED) Heart: Regular rate, Normal S1, Normal S2, No murmurs, Gallops Lungs: Crackles Abdomen: Soft, No tenderness, Other (VERY OBESE) Extremities: No cyanosis, Other (ANASARCA) Skin: Other (scale, lower leg ) Labs LABS LEFT VENTRICLE The left ventricle is normal size. There is mild concentric left ventricular hypertrophy. The left ventricular systolic function is normal. The ejection fraction is 60-65%. There is normal LV segmental wall motion. Transmitral Doppler flow pattern is Grade I-abnormal relaxation pattern. RIGHT VENTRICLE The right ventricle is mildly dilated. The right ventricular systolic function is normal. ATRIA The left atrium size is normal. The right atrium size is normal. The interatrial septum is intact with no evidence for an atrial septal defect or patent foramen ovale as noted on 2-D or Doppler imaging. AORTIC VALVE The aortic valve is normal in structure and function. Doppler and Color Flow revealed no significant aortic regurgitation. There is no significant aortic valvular stenosis. MITRAL VALVE The mitral valve is normal in structure and function. There is no mitral valve stenosis. Doppler and Color Flow revealed no mitral valve regurgitation noted. TRICUSPID VALVE The tricuspid valve is normal in structure and function. Doppler and Color Flow revealed trace tricuspid regurgitation. Estimated PAP 33-38 mmHg. There is no tricuspid valve stenosis. PULMONIC VALVE Doppler and Color Flow revealed no pulmonic valvular regurgitation. GREAT VESSELS The aortic root is mildly enlarged. IVC was not well visualized. PERICARDIAL EFFUSION There is no pleural effusion. There is no evidence of significant pericardial effusion. Critical Notification Critical Value: No <Conclusion> The left ventricular systolic function is normal. The ejection fraction is 60-65%. There is normal LV segmental wall motion. Transmitral Doppler flow pattern is Grade I-abnormal relaxation pattern. Trace tricuspid regurgitation. Estimated PAP 33-38 mmHg. There is no evidence of significant pericardial effusion. Signed by : Ashutosh Fink, Electronically Approved : 03/02/2019 08:13:15 DICTATED and SIGNED BY: ASHUTOSH FINK MD DATE: 03/02/19812 CT abdomen and pelvis without contrast 03/01/2019 CLINICAL INDICATION: Abdominal distention, possible sepsis. COMPARISON: Abdominal radiograph 02/28/2019, acute abdominal series 02/27/2018 TECHNIQUE: Multiple CT images of the abdomen and pelvis were obtained without contrast. *One or more of the following individualized dose reduction techniques were utilized for this examination: 1. Automated exposure control. 2. Adjustment of the mA and/or kV according to patient size. 3. Use of iterative reconstruction technique. FINDINGS: Mild cardiomegaly without significant pericardial effusion. Coronary artery calcifications are noted. Bilateral lower lobe consolidation. Evaluation of the solid abdominal pelvic viscera, lymphadenopathy and vasculature is limited due to lack of intravenous contrast and body habitus resulting in image degradation. The unenhanced contours of the liver, gallbladder, spleen, adrenal glands and pancreas are grossly unremarkable. Both kidneys present without hydronephrosis. There is mild, symmetric nonspecific perinephric stranding. There is a nonobstructive 7 mm calculus in the superior pole of the left kidney. There is a 2.5 cm hypodensity in the inferior pole the right kidney which is incompletely visualized and poorly characterized due to the previously mentioned factors. There is asymmetric stranding adjacent to the left renal pelvis. Abdominal aorta normal in caliber with trace calcified atheromatous plaque. There is a transesophageal gastric tube terminating in the duodenal bulb. Small and large bowel loops are normal in caliber without obstruction. There is minimal fluid in the anterior dependent peritoneum. Mild presacral edema. Moderate diffuse body wall edema. Urinary bladder is decompressed about a Coburn catheter. Prostate and seminal vesicles are grossly unremarkable. No retroperitoneal or mesenteric lymphadenopathy. Mild bilateral external iliac lymphadenopathy measuring 2.0 x 2.4 cm on the right series 2/image 97 and 1.6 x 2.1 cm on the left series 2/image 98. There is a small fat-containing umbilical hernia. There are no destructive osseous lesions. IMPRESSION: 1. Mild nonspecific perinephric stranding with slight asymmetric stranding adjacent to the left renal pelvis. Findings may be due to chronic kidney disease, though ascending urinary tract infection is not excluded. 2. Bilateral lower lobe consolidation concerning for multifocal pneumonia or pneumonitis with aspiration not excluded. 3. Right renal hypodensity measuring 2.5 cm is incompletely evaluated on noncontrast examination. Follow-up MRI or CT abdomen and pelvis renal protocol with contrast is recommended for further evaluation. 4. Anasarca. 5. Mild bilateral external iliac lymphadenopathy, may be reactive, though follow-up CT abdomen and pelvis in 3 months is recommended to assess for stability/resolution. 6. Nonobstructive left nephrolithiasis. 7. Coronary artery calcifications. Electronically signed by: Junito Hilliard MD (03/01/2019 5:04 PM) [facility] [place]ATED and SIGNED BY: JUNITO HILLIARD MD DATE: 03/01/191703 Laboratory Tests Test 03/01/19 13:21 03/01/19 14:55 03/02/19 09:05 03/02/19 09:40 Glucose (Fingerstick) 124 mg/dL (70-99) Sodium Level 143 mmol/L (136-145) 146 mmol/L (136-145) Potassium Level 3.7 mmol/L (3.5-5.1) 4.1 mmol/L (3.5-5.1) Chloride Level 107 mmol/L (98-107) 111 mmol/L (98-107) Carbon Dioxide Level 29 mmol/L (21-32) 29 mmol/L (21-32) Anion Gap 7 (6-14) 6 (6-14) Blood Urea Nitrogen 42 mg/dL (8-26) 33 mg/dL (8-26) Creatinine 2.1 mg/dL (0.7-1.3) 1.8 mg/dL (0.7-1.3) Estimated GFR (Cockcroft-Gault) 32.8 39.2 Glucose Level 120 mg/dL (70-99) 120 mg/dL (70-99) Calcium Level 8.5 mg/dL (8.5-10.1) 8.2 mg/dL (8.5-10.1) Magnesium Level 2.0 mg/dL (1.8-2.4) White Blood Count 5.7 x10^3/uL (4.0-11.0) Red Blood Count 4.27 x10^6/uL (4.30-5.70) Hemoglobin 12.9 g/dL (13.0-17.5) Hematocrit 40.3 % (39.0-53.0) Mean Corpuscular Volume 94 fL (79-100) Mean Corpuscular Hemoglobin 30 pg (25-35) Mean Corpuscular Hemoglobin Concent 32 g/dL (31-37) Red Cell Distribution Width 14.7 % (11.5-14.5) Platelet Count 165 x10^3/uL (140-400) Neutrophils (%) (Auto) 74 % (31-73) Lymphocytes (%) (Auto) 14 % (24-48) Monocytes (%) (Auto) 11 % (0-9) Eosinophils (%) (Auto) 2 % (0-3) Basophils (%) (Auto) 0 % (0-3) Neutrophils # (Auto) 4.2 x10^3uL (1.8-7.7) Lymphocytes # (Auto) 0.8 x10^3/uL (1.0-4.8) Monocytes # (Auto) 0.6 x10^3/uL (0.0-1.1) Eosinophils # (Auto) 0.1 x10^3/uL (0.0-0.7) Basophils # (Auto) 0.0 x10^3/uL (0.0-0.2) BUN/Creatinine Ratio 18 (6-20) Total Bilirubin 0.8 mg/dL (0.2-1.0) Aspartate Amino Transf (AST/SGOT) 25 U/L (15-37) Alanine Aminotransferase (ALT/SGPT) 16 U/L (16-63) Alkaline Phosphatase 84 U/L (46-116) Total Protein 6.4 g/dL (6.4-8.2) Albumin 2.2 g/dL (3.4-5.0) Albumin/Globulin Ratio 0.5 (1.0-1.7) O2 Saturation 93 % (92-99) Arterial Blood pH 7.42 (7.35-7.45) Arterial Blood pCO2 at Patient Temp 44 mmHg (35-46) Arterial Blood pO2 at Patient Temp 67 mmHg (75-108) Arterial Blood HCO3 28 mmol/L (21-28) Arterial Blood Base Excess 3 mmol/L (-3-3) FiO2 80 Test 03/02/19 12:08 Glucose (Fingerstick) 114 mg/dL (70-99) Assessment and Plan Assessmemt and Plan Problems Medical Problems: (1) Acute renal failure Status: Acute (2) Edema Status: Acute (3) Shortness of breath Status: Acute Comment Review of Relevant I have reviewed the following items pascual (where applicable) has been applied. Labs Laboratory Tests Test 02/28/19 17:22 03/01/19 04:33 03/01/19 09:45 03/01/19 13:21 Glucose (Fingerstick) 111 mg/dL (70-99) 124 mg/dL (70-99) White Blood Count 5.9 x10^3/uL (4.0-11.0) Red Blood Count 4.23 x10^6/uL (4.30-5.70) Hemoglobin 12.8 g/dL (13.0-17.5) Hematocrit 39.7 % (39.0-53.0) Mean Corpuscular Volume 94 fL (79-100) Mean Corpuscular Hemoglobin 30 pg (25-35) Mean Corpuscular Hemoglobin Concent 32 g/dL (31-37) Red Cell Distribution Width 14.6 % (11.5-14.5) Platelet Count 164 x10^3/uL (140-400) Neutrophils (%) (Auto) 73 % (31-73) Lymphocytes (%) (Auto) 17 % (24-48) Monocytes (%) (Auto) 8 % (0-9) Eosinophils (%) (Auto) 1 % (0-3) Basophils (%) (Auto) 0 % (0-3) Neutrophils # (Auto) 4.3 x10^3uL (1.8-7.7) Lymphocytes # (Auto) 1.0 x10^3/uL (1.0-4.8) Monocytes # (Auto) 0.5 x10^3/uL (0.0-1.1) Eosinophils # (Auto) 0.1 x10^3/uL (0.0-0.7) Basophils # (Auto) 0.0 x10^3/uL (0.0-0.2) Sodium Level 144 mmol/L (136-145) Potassium Level 3.8 mmol/L (3.5-5.1) Chloride Level 108 mmol/L (98-107) Carbon Dioxide Level 26 mmol/L (21-32) Anion Gap 10 (6-14) Blood Urea Nitrogen 49 mg/dL (8-26) Creatinine 2.1 mg/dL (0.7-1.3) Estimated GFR (Cockcroft-Gault) 32.8 BUN/Creatinine Ratio 23 (6-20) Glucose Level 104 mg/dL (70-99) Calcium Level 8.6 mg/dL (8.5-10.1) Total Bilirubin 1.1 mg/dL (0.2-1.0) Aspartate Amino Transf (AST/SGOT) 19 U/L (15-37) Alanine Aminotransferase (ALT/SGPT) 19 U/L (16-63) Alkaline Phosphatase 93 U/L (46-116) Total Protein 6.6 g/dL (6.4-8.2) Albumin 2.5 g/dL (3.4-5.0) Albumin/Globulin Ratio 0.6 (1.0-1.7) O2 Saturation 94 % (92-99) Arterial Blood pH 7.50 (7.35-7.45) Arterial Blood pCO2 at Patient Temp 34 mmHg (35-46) Arterial Blood pO2 at Patient Temp 68 mmHg (75-108) Arterial Blood HCO3 26 mmol/L (21-28) Arterial Blood Base Excess 3 mmol/L (-3-3) FiO2 80% Test 03/01/19 14:55 03/02/19 09:05 03/02/19 09:40 03/02/19 12:08 Sodium Level 143 mmol/L (136-145) 146 mmol/L (136-145) Potassium Level 3.7 mmol/L (3.5-5.1) 4.1 mmol/L (3.5-5.1) Chloride Level 107 mmol/L (98-107) 111 mmol/L (98-107) Carbon Dioxide Level 29 mmol/L (21-32) 29 mmol/L (21-32) Anion Gap 7 (6-14) 6 (6-14) Blood Urea Nitrogen 42 mg/dL (8-26) 33 mg/dL (8-26) Creatinine 2.1 mg/dL (0.7-1.3) 1.8 mg/dL (0.7-1.3) Estimated GFR (Cockcroft-Gault) 32.8 39.2 Glucose Level 120 mg/dL (70-99) 120 mg/dL (70-99) Calcium Level 8.5 mg/dL (8.5-10.1) 8.2 mg/dL (8.5-10.1) Magnesium Level 2.0 mg/dL (1.8-2.4) White Blood Count 5.7 x10^3/uL (4.0-11.0) Red Blood Count 4.27 x10^6/uL (4.30-5.70) Hemoglobin 12.9 g/dL (13.0-17.5) Hematocrit 40.3 % (39.0-53.0) Mean Corpuscular Volume 94 fL (79-100) Mean Corpuscular Hemoglobin 30 pg (25-35) Mean Corpuscular Hemoglobin Concent 32 g/dL (31-37) Red Cell Distribution Width 14.7 % (11.5-14.5) Platelet Count 165 x10^3/uL (140-400) Neutrophils (%) (Auto) 74 % (31-73) Lymphocytes (%) (Auto) 14 % (24-48) Monocytes (%) (Auto) 11 % (0-9) Eosinophils (%) (Auto) 2 % (0-3) Basophils (%) (Auto) 0 % (0-3) Neutrophils # (Auto) 4.2 x10^3uL (1.8-7.7) Lymphocytes # (Auto) 0.8 x10^3/uL (1.0-4.8) Monocytes # (Auto) 0.6 x10^3/uL (0.0-1.1) Eosinophils # (Auto) 0.1 x10^3/uL (0.0-0.7) Basophils # (Auto) 0.0 x10^3/uL (0.0-0.2) BUN/Creatinine Ratio 18 (6-20) Total Bilirubin 0.8 mg/dL (0.2-1.0) Aspartate Amino Transf (AST/SGOT) 25 U/L (15-37) Alanine Aminotransferase (ALT/SGPT) 16 U/L (16-63) Alkaline Phosphatase 84 U/L (46-116) Total Protein 6.4 g/dL (6.4-8.2) Albumin 2.2 g/dL (3.4-5.0) Albumin/Globulin Ratio 0.5 (1.0-1.7) O2 Saturation 93 % (92-99) Arterial Blood pH 7.42 (7.35-7.45) Arterial Blood pCO2 at Patient Temp 44 mmHg (35-46) Arterial Blood pO2 at Patient Temp 67 mmHg (75-108) Arterial Blood HCO3 28 mmol/L (21-28) Arterial Blood Base Excess 3 mmol/L (-3-3) FiO2 80 Glucose (Fingerstick) 114 mg/dL (70-99) Laboratory Tests Test 03/01/19 13:21 03/01/19 14:55 03/02/19 09:05 03/02/19 09:40 Glucose (Fingerstick) 124 mg/dL (70-99) Sodium Level 143 mmol/L (136-145) 146 mmol/L (136-145) Potassium Level 3.7 mmol/L (3.5-5.1) 4.1 mmol/L (3.5-5.1) Chloride Level 107 mmol/L (98-107) 111 mmol/L (98-107) Carbon Dioxide Level 29 mmol/L (21-32) 29 mmol/L (21-32) Anion Gap 7 (6-14) 6 (6-14) Blood Urea Nitrogen 42 mg/dL (8-26) 33 mg/dL (8-26) Creatinine 2.1 mg/dL (0.7-1.3) 1.8 mg/dL (0.7-1.3) Estimated GFR (Cockcroft-Gault) 32.8 39.2 Glucose Level 120 mg/dL (70-99) 120 mg/dL (70-99) Calcium Level 8.5 mg/dL (8.5-10.1) 8.2 mg/dL (8.5-10.1) Magnesium Level 2.0 mg/dL (1.8-2.4) White Blood Count 5.7 x10^3/uL (4.0-11.0) Red Blood Count 4.27 x10^6/uL (4.30-5.70) Hemoglobin 12.9 g/dL (13.0-17.5) Hematocrit 40.3 % (39.0-53.0) Mean Corpuscular Volume 94 fL (79-100) Mean Corpuscular Hemoglobin 30 pg (25-35) Mean Corpuscular Hemoglobin Concent 32 g/dL (31-37) Red Cell Distribution Width 14.7 % (11.5-14.5) Platelet Count 165 x10^3/uL (140-400) Neutrophils (%) (Auto) 74 % (31-73) Lymphocytes (%) (Auto) 14 % (24-48) Monocytes (%) (Auto) 11 % (0-9) Eosinophils (%) (Auto) 2 % (0-3) Basophils (%) (Auto) 0 % (0-3) Neutrophils # (Auto) 4.2 x10^3uL (1.8-7.7) Lymphocytes # (Auto) 0.8 x10^3/uL (1.0-4.8) Monocytes # (Auto) 0.6 x10^3/uL (0.0-1.1) Eosinophils # (Auto) 0.1 x10^3/uL (0.0-0.7) Basophils # (Auto) 0.0 x10^3/uL (0.0-0.2) BUN/Creatinine Ratio 18 (6-20) Total Bilirubin 0.8 mg/dL (0.2-1.0) Aspartate Amino Transf (AST/SGOT) 25 U/L (15-37) Alanine Aminotransferase (ALT/SGPT) 16 U/L (16-63) Alkaline Phosphatase 84 U/L (46-116) Total Protein 6.4 g/dL (6.4-8.2) Albumin 2.2 g/dL (3.4-5.0) Albumin/Globulin Ratio 0.5 (1.0-1.7) O2 Saturation 93 % (92-99) Arterial Blood pH 7.42 (7.35-7.45) Arterial Blood pCO2 at Patient Temp 44 mmHg (35-46) Arterial Blood pO2 at Patient Temp 67 mmHg (75-108) Arterial Blood HCO3 28 mmol/L (21-28) Arterial Blood Base Excess 3 mmol/L (-3-3) FiO2 80 Test 03/02/19 12:08 Glucose (Fingerstick) 114 mg/dL (70-99) Microbiology 02/28/19 Blood Culture - Preliminary, Resulted NO GROWTH AFTER 2 DAYS Medications Current Medications Ondansetron HCl (Zofran) 4 mg PRN Q8HRS PRN IV NAUSEA/VOMITING; Start 02/27/19 at 16:45; Stop 02/28/19 at 16:44; Status DC Morphine Sulfate (Morphine Sulfate) 2 mg PRN Q2HR PRN IV PAIN; Start 02/27/19 at 16:45; Stop 02/28/19 at 16:44; Status DC Acetaminophen (Tylenol) 650 mg PRN Q4HRS PRN PO FEVER Last administered on 02/27at 21:06; Start 02/27/19 at 16:45; Stop 02/28/19 at 16:44; Status DC Dextrose (Dextrose 50%-Water Syringe) 12.5 gm PRN Q15MIN PRN IV SEE COMMENTS; Start 02/27/19 at 16:45 Heparin Sodium (Porcine) (Heparin Sodium) 5,000 unit Q8HRS SQ Last administered on 03/02/19at 06:09; Start 02/27/19 at 17:00 Lorazepam (Ativan) 1 mg PRN Q8HRS PRN IV ANXIETY / AGITATION Last administered on 02/28/19at 02:57; Start 02/28/19 at 02:45 Etomidate (Amidate) 20 mg STK-MED ONCE IV ; Start 02/28/19 at 06:59; Stop at 07:00; Status DC Rocuronium Wayside (Zemuron) 50 mg STK-MED ONCE .ROUTE ; Start 02/28/19 at 07:00 ; Stop 02/28/19 at 09:42; Status DC Dopamine HCl/ Dextrose 250 ml @ 12.266 mls/ hr CONT PRN IV SEE I/O RECORD Last administered on 02/28/19at 08:06; Start 02/28/19 at 07:15 Fentanyl Citrate 30 ml @ 0 mls/hr CONT PRN IV SEE PROTOCOL; Start 02/28/19 at 07:15; Stop 02/28/19 at 07:59; Status DC Propofol 100 ml @ 0 mls/hr CONT PRN IV SEE PROTOCOL; Start 02/28/19 at 07:15; Stop 02/28/19 at 07:59; Status DC Fentanyl Citrate (Fentanyl 2ml Vial) 25 mcg PRN Q1HR PRN IV SEE COMMENTS; Start 02/28/19 at 07:15; Stop 02/28/19 at 07:59; Status DC Fentanyl Citrate (Fentanyl 2ml Vial) 50 mcg PRN Q1HR PRN IV SEE COMMENTS; Start 02/28/19 at 07:15; Stop 02/28/19 at 07:59; Status DC Midazolam HCl 100 ml @ 0 mls/hr CONT PRN IV SEE PROTOCOL Last administered on at 08:34; Start 02/28/19 at 07:15 Sodium Chloride 1,000 ml @ 1,000 mls/hr Q1H IV Last administered on 02/28/19at 07:32; Start 02/28/19 at 07:32; Stop 02/28/19 at 10:09; Status DC Fentanyl Citrate (Fentanyl 2ml Vial) 25 mcg PRN Q30MIN PRN IV see comments; Start 02/28/19 at 07:45; Stop 02/28/19 at 09:42; Status DC Lorazepam (Ativan) 1 mg PRN Q30MIN PRN IV SEDATION; Start 02/28/19 at 07:45; Stop 02/28/19 at 09:42; Status DC Fentanyl Citrate 30 ml @ 2.5 mls/hr CONT PRN PRN IV SEE I/O RECORD Last administered on 03/02/19at 06:09; Start 02/28/19 at 07:45 Propofol 100 ml @ 0 mls/hr CONT PRN IV SEE I/O RECORD; Start 02/28/19 at 07:45 Vecuronium [place] (Norcuron Bolus) 10 mg PRN Q30MIN PRN IV SHIVERING; Start at 07:45; Stop 02/28/19 at 09:42; Status DC Meperidine HCl (Demerol) 12.5 mg PRN Q30MIN PRN IV SHIVERING; Start 02/28/19 at 07:45; Stop 02/28/19 at 09:42; Status DC Multi-Ingred Cream/Lotion/Oil/ Oint (Artificial Tears Eye Ointment) 1 jennifer PRN Q6HRS PRN OU 0.5 INCH FOR DRY EYE; Start 02/28/19 at 07:45; Stop 02/28/19 at 09 :42; Status DC Famotidine (Pepcid Vial) 20 mg BID IVP Last administered on 02/28/19at 11:03; Start 02/28/19 at 09:00; Stop 02/28/19 at 14:25; Status DC Aspirin (Aspirin) 300 mg DAILY IA ; Start 02/28/19 at 09:00; Stop 02/28/19 at 09 :42; Status DC Sodium Chloride (Normal Saline Flush) 3 ml QSHIFT PRN IV AFTER MEDS AND BLOOD DRAWS; Start 02/28/19 at 07:45 Acetaminophen (Tylenol) 650 mg Q6HRS NG ; Start 02/28/19 at 12:00; Stop at 12:00; Status DC Acetaminophen (Tylenol Supp) 650 mg PRN Q6HRS PRN IA MILD PAIN / TEMP; Start at 07:45; Stop 03/01/19 at 07:45; Status DC Acetaminophen (Tylenol) 650 mg PRN Q6HRS PRN NG MILD PAIN / TEMP; Start at 07:45; Stop 03/01/19 at 07:45; Status DC Info (Icu Electrolyte Protocol) 1 ea DAILY PRN MC PER PROTOCOL; Start 03/02/19 at 07:45; Stop 03/02/19 at 07:45; Status DC Furosemide (Lasix) 60 mg 1X ONCE IVP Last administered on 02/28/19at 08:30; Start 02/28/19 at 08:30; Stop 02/28/19 at 08:31; Status DC Ceftriaxone Sodium (Rocephin) 1 gm Q24H IVP Last administered on 02/28/19at 11: 03; Start 02/28/19 at 11:00; Stop 02/28/19 at 11:18; Status DC Calcium Chloride 1000 mg/Dextrose 60 ml @ 120 mls/hr 1X ONCE IV Last administered on 02/28/19at 11:03; Start 02/28/19 at 10:30; Stop 02/28/19 at 10:59 ; Status DC Meropenem 500 mg/ Sodium Chloride 50 ml @ 100 mls/hr Q8HRS IV Last administered on 03/02/19at 06:08; Start 02/28/19 at 14:00 Linezolid/Dextrose 300 ml @ 300 mls/hr Q12HR IV Last administered on 03/02/19at 08:59; Start 02/28/19 at 11:30 Micafungin Sodium 100 mg/Dextrose 100 ml @ 100 mls/hr Q24H IV Last administered on 03/02/19at 11:57; Start 02/28/19 at 12:00 Furosemide (Lasix) 40 mg [id number] IVP Last administered on 03/02/19at 08:59; Start 02/28/19 at 14:00 Famotidine (Pepcid Vial) 20 mg QHS IVP Last administered on 03/01/19at 21:24; Start 02/28/19 at 21:00; Stop 03/02/19 at 10:07; Status DC Albuterol/ Ipratropium (Duoneb) 3 ml RTQID NEB Last administered on 03/02/19at 12 :15; Start 02/28/19 at 16:00 Haloperidol Lactate (Haldol Inj) 5 mg PRN Q6HRS PRN IVP AGITATION Last administered on 02/28/19at 18:21; Start 02/28/19 at 15:15 Vecuronium [place] (Norcuron Bolus) 8 mg PRN Q4HRS PRN IV MUSCLE SPASMS Last administered on 02/28/19at 15:27; Start 02/28/19 at 15:15 Perflutren Protein Type A Microsphe (Optison) 0.66 mg PRN 1X PRN IV SEE COMMENTS; Start 03/01/19 at 10:00; Stop 03/02/19 at 09:59; Status DC Digoxin (Lanoxin) 125 mcg 1X STAT IV ; Start 03/01/19 at 15:34; Stop 03/01/19 at 16:00; Status DC Sodium Chloride 500 ml @ 500 mls/hr 1X ONCE IV Last administered on at 18:46; Start 03/01/19 at 18:45; Stop 03/01/19 at 19:44; Status DC Famotidine (Pepcid Vial) 20 mg Q12HR IVP ; Start 03/02/19 at 21:00 Active Scripts Active Reported Proair Hfa Inhaler (Albuterol Sulfate) 8.5 Gm Hfa.aer.ad 1 Puff INH PRN Q6HRS PRN Lantus Solostar (Insulin Glargine,Hum.rec.anlog) 100 Unit/1 Ml Insuln.pen 20 Unit SQ QHS Humalog (Insulin Lispro) 100 Unit/1 Ml Cartridge 6 Unit SQ TIDWMEALS Doxazosin Mesylate 2 Mg Tablet 2 Mg PO DAILY Omeprazole 40 Mg Capsule.dr 40 Mg PO DAILY Amlodipine Besylate 10 Mg Tablet 10 Mg PO DAILY Atorvastatin Calcium 20 Mg Tablet 20 Mg PO DAILY Atenolol 50 Mg Tablet 50 Mg PO DAILY Losartan Potassium 100 Mg Tablet 100 Mg PO DAILY Aspirin 81 Mg Tab.chew 81 Mg PO DAILY Glyburide 5 Mg Tablet 1 Tab PO BID Vitals/I & O Vital Sign - Last 24 Hours 03/01/19 03/01/19 03/01/19 03/01/19 13:00 14:00 15:00 16:00 Temp 99.0 99.1 99.0 99.1 Pulse 80 138 118 124 Resp 20 20 20 20 B/P (MAP) 118/68 (85) 109/53 (71) 103/59 (74) 121/66 (84) Pulse Ox 94 92 93 93 O2 Delivery Ventilator Ventilator Ventilator Ventilator O2 Flow Rate 03/01/19 03/01/19 03/01/19 03/01/19 16:00 17:00 17:16 17:46 Pulse 124 Resp 20 20 B/P (MAP) 94/60 (71) Pulse Ox 93 92 94 O2 Delivery Mechanical Ventilator Ventilator Ventilator 03/01/19 03/01/19 03/01/19 03/01/19 18:02 19:00 20:00 20:00 Temp 99.9 99.9 Pulse 130 134 122 Resp 20 19 20 B/P (MAP) 100/64 (76) 111/56 (74) 90/57 (68) Pulse Ox 93 93 93 O2 Delivery Ventilator Ventilator Mechanical Ventilator Ventilator 03/01/19 03/01/19 03/01/19 03/01/19 20:13 21:00 22:00 23:00 Pulse 116 94 85 Resp 15 15 16 B/P (MAP) 93/55 (68) 101/54 (70) 97/53 (68) Pulse Ox 93 93 93 93 O2 Delivery Ventilator Ventilator Ventilator Ventilator 03/01/19 03/01/19 03/02/19 03/02/19 23:25 23:59 00:00 00:32 Temp 99.9 99.9 Pulse 84 Resp 16 16 B/P (MAP) 102/58 (73) Pulse Ox 93 93 93 O2 Delivery Ventilator Mechanical Ventilator Ventilator Ventilator 03/02/19 03/02/19 03/02/19 03/02/19 01:00 02:00 02:24 03:00 Pulse 83 85 80 Resp 16 16 16 B/P (MAP) 104/54 (71) 112/54 (73) 115/56 (75) Pulse Ox 93 94 93 94 O2 Delivery Ventilator Ventilator Ventilator Ventilator 03/02/19 03/02/19 03/02/19 03/02/19 04:00 04:00 05:00 05:30 Temp 99.5 99.5 Pulse 77 76 Resp 16 16 B/P (MAP) 108/62 (77) 114/62 (79) Pulse Ox 95 93 93 O2 Delivery Ventilator Mechanical Ventilator Ventilator Ventilator 03/02/19 03/02/19 03/02/19 03/02/19 06:00 06:09 06:39 07:00 Pulse 74 74 Resp 18 15 18 11 B/P (MAP) 110/62 (78) 116/59 (78) Pulse Ox 85 92 92 93 O2 Delivery Ventilator Ventilator Ventilator Ventilator 03/02/19 03/02/19 03/02/19 03/02/19 08:00 08:00 08:03 09:00 Temp 99.6 99.6 Pulse 74 73 Resp 10 10 B/P (MAP) 119/62 (81) 125/65 (85) Pulse Ox 93 94 93 O2 Delivery Mechanical Ventilator Ventilator Ventilator Ventilator 03/02/19 03/02/19 03/02/19 03/02/19 10:00 10:00 11:00 12:00 Temp 99.4 99.4 Pulse 73 82 80 Resp 15 15 15 B/P (MAP) 116/59 (78) 119/60 (79) 121/60 (80) Pulse Ox 94 93 94 93 O2 Delivery Ventilator Ventilator Ventilator Ventilator 03/02/19 03/02/19 12:00 12:16 Pulse Ox 93 O2 Delivery Mechanical Ventilator Ventilator Intake and Output 03/01/19 03/01/19 03/02/19 14:59 22:59 06:59 Intake Total 500 ml 222.59 ml 583 ml Output Total 3490 ml 1945 ml 750 ml Balance -2990 ml -1722.41 ml -167 ml LESLY STOCKTON MD Mar 02, 2019 12:54
--- NOTE | 2019-03-02 13:38 | PDOC ---
Renal-Progress Notes Subjective Notes Notes ON THE VENT History of Present Illness Hx of present illness STABLE Vitals Vitals Vital Signs Date Time Temp Pulse Resp B/P (MAP) Pulse Ox O2 Delivery O2 Flow Rate FiO2 03/02/19 13:00 85 15 121/62 (81) 95 Ventilator 03/02/19 12:00 99.4 99.4 03/01/19 16:00 Weight Weight [ ] I.O. Intake and Output Intake and Output 03/02/19 07:00 Intake Total 1255.59 ml Output Total 6170 ml Balance -4914.41 ml IV Total 1255.59 ml Output Urine Total 5620 ml Gastric Drainage Total 550 ml Labs Labs Laboratory Tests Test 03/01/19 14:55 03/02/19 09:05 03/02/19 09:40 03/02/19 12:08 Sodium Level 143 mmol/L (136-145) 146 mmol/L (136-145) Potassium Level 3.7 mmol/L (3.5-5.1) 4.1 mmol/L (3.5-5.1) Chloride Level 107 mmol/L (98-107) 111 mmol/L (98-107) Carbon Dioxide Level 29 mmol/L (21-32) 29 mmol/L (21-32) Anion Gap 7 (6-14) 6 (6-14) Blood Urea Nitrogen 42 mg/dL (8-26) 33 mg/dL (8-26) Creatinine 2.1 mg/dL (0.7-1.3) 1.8 mg/dL (0.7-1.3) Estimated GFR (Cockcroft-Gault) 32.8 39.2 Glucose Level 120 mg/dL (70-99) 120 mg/dL (70-99) Calcium Level 8.5 mg/dL (8.5-10.1) 8.2 mg/dL (8.5-10.1) Magnesium Level 2.0 mg/dL (1.8-2.4) White Blood Count 5.7 x10^3/uL (4.0-11.0) Red Blood Count 4.27 x10^6/uL (4.30-5.70) Hemoglobin 12.9 g/dL (13.0-17.5) Hematocrit 40.3 % (39.0-53.0) Mean Corpuscular Volume 94 fL (79-100) Mean Corpuscular Hemoglobin 30 pg (25-35) Mean Corpuscular Hemoglobin Concent 32 g/dL (31-37) Red Cell Distribution Width 14.7 % (11.5-14.5) Platelet Count 165 x10^3/uL (140-400) Neutrophils (%) (Auto) 74 % (31-73) Lymphocytes (%) (Auto) 14 % (24-48) Monocytes (%) (Auto) 11 % (0-9) Eosinophils (%) (Auto) 2 % (0-3) Basophils (%) (Auto) 0 % (0-3) Neutrophils # (Auto) 4.2 x10^3uL (1.8-7.7) Lymphocytes # (Auto) 0.8 x10^3/uL (1.0-4.8) Monocytes # (Auto) 0.6 x10^3/uL (0.0-1.1) Eosinophils # (Auto) 0.1 x10^3/uL (0.0-0.7) Basophils # (Auto) 0.0 x10^3/uL (0.0-0.2) BUN/Creatinine Ratio 18 (6-20) Total Bilirubin 0.8 mg/dL (0.2-1.0) Aspartate Amino Transf (AST/SGOT) 25 U/L (15-37) Alanine Aminotransferase (ALT/SGPT) 16 U/L (16-63) Alkaline Phosphatase 84 U/L (46-116) Total Protein 6.4 g/dL (6.4-8.2) Albumin 2.2 g/dL (3.4-5.0) Albumin/Globulin Ratio 0.5 (1.0-1.7) O2 Saturation 93 % (92-99) Arterial Blood pH 7.42 (7.35-7.45) Arterial Blood pCO2 at Patient Temp 44 mmHg (35-46) Arterial Blood pO2 at Patient Temp 67 mmHg (75-108) Arterial Blood HCO3 28 mmol/L (21-28) Arterial Blood Base Excess 3 mmol/L (-3-3) FiO2 80 Glucose (Fingerstick) 114 mg/dL (70-99) Micro Micro Microbiology 02/28/19 Blood Culture - Preliminary, Resulted NO GROWTH AFTER 2 DAYS Physical Exam General Appearance: other (SEDATED) Skin: warm Respiratory: decreased breath sounds Heart: S1S2 Abdomen: soft, bowel sounds present Genitourinary: bladder flat Extremities: pulses present Neurology: other (SEDATED) Assessment Assessment IMP LEONARD-BETTER WITH CR DOWN TO 1.8 ANASARCA ACUTE HYPERCARBIC RESP FAILURE SCROTAL EDEMA DUE TO ANASARCA RIGHT RENAL MASS PROB PNEUMONIA PROB SEPSIS PROB RIGHT SIDED CHF WITH DIASTOLIC DYSFUNCTION MORBID OBESITY PLAN ANTIBIOTICS VENT SUPPORT IV DEEPTHI REGALADO MD Mar 02, 2019 13:38
--- NOTE | 2019-03-02 13:46 | PDOC ---
CARDIO Progress Notes Date and Time Date of Service 03/02/19 Time of Evaluation 1215 Subjective Subjective: Other (intubated ) Vitals Vitals Vital Signs Date Time Temp Pulse Resp B/P (MAP) Pulse Ox O2 Delivery O2 Flow Rate FiO2 03/02/19 13:00 85 15 121/62 (81) 95 Ventilator 03/02/19 12:00 99.4 99.4 03/01/19 16:00 Weight Weight [ ] Stability Assessment Stability Assess.: other (intubated ) Input and Output Intake and Output Intake and Output 03/02/19 06:59 Intake Total 1305.59 ml Output Total 6185 ml Balance -4879.41 ml IV Total 1305.59 ml Output Urine Total 5635 ml Gastric Drainage Total 550 ml Laboratory Labs Laboratory Tests Test 03/01/19 14:55 03/02/19 09:05 03/02/19 09:40 03/02/19 12:08 Sodium Level 143 mmol/L (136-145) 146 mmol/L (136-145) Potassium Level 3.7 mmol/L (3.5-5.1) 4.1 mmol/L (3.5-5.1) Chloride Level 107 mmol/L (98-107) 111 mmol/L (98-107) Carbon Dioxide Level 29 mmol/L (21-32) 29 mmol/L (21-32) Anion Gap 7 (6-14) 6 (6-14) Blood Urea Nitrogen 42 mg/dL (8-26) 33 mg/dL (8-26) Creatinine 2.1 mg/dL (0.7-1.3) 1.8 mg/dL (0.7-1.3) Estimated GFR (Cockcroft-Gault) 32.8 39.2 Glucose Level 120 mg/dL (70-99) 120 mg/dL (70-99) Calcium Level 8.5 mg/dL (8.5-10.1) 8.2 mg/dL (8.5-10.1) Magnesium Level 2.0 mg/dL (1.8-2.4) White Blood Count 5.7 x10^3/uL (4.0-11.0) Red Blood Count 4.27 x10^6/uL (4.30-5.70) Hemoglobin 12.9 g/dL (13.0-17.5) Hematocrit 40.3 % (39.0-53.0) Mean Corpuscular Volume 94 fL (79-100) Mean Corpuscular Hemoglobin 30 pg (25-35) Mean Corpuscular Hemoglobin Concent 32 g/dL (31-37) Red Cell Distribution Width 14.7 % (11.5-14.5) Platelet Count 165 x10^3/uL (140-400) Neutrophils (%) (Auto) 74 % (31-73) Lymphocytes (%) (Auto) 14 % (24-48) Monocytes (%) (Auto) 11 % (0-9) Eosinophils (%) (Auto) 2 % (0-3) Basophils (%) (Auto) 0 % (0-3) Neutrophils # (Auto) 4.2 x10^3uL (1.8-7.7) Lymphocytes # (Auto) 0.8 x10^3/uL (1.0-4.8) Monocytes # (Auto) 0.6 x10^3/uL (0.0-1.1) Eosinophils # (Auto) 0.1 x10^3/uL (0.0-0.7) Basophils # (Auto) 0.0 x10^3/uL (0.0-0.2) BUN/Creatinine Ratio 18 (6-20) Total Bilirubin 0.8 mg/dL (0.2-1.0) Aspartate Amino Transf (AST/SGOT) 25 U/L (15-37) Alanine Aminotransferase (ALT/SGPT) 16 U/L (16-63) Alkaline Phosphatase 84 U/L (46-116) Total Protein 6.4 g/dL (6.4-8.2) Albumin 2.2 g/dL (3.4-5.0) Albumin/Globulin Ratio 0.5 (1.0-1.7) O2 Saturation 93 % (92-99) Arterial Blood pH 7.42 (7.35-7.45) Arterial Blood pCO2 at Patient Temp 44 mmHg (35-46) Arterial Blood pO2 at Patient Temp 67 mmHg (75-108) Arterial Blood HCO3 28 mmol/L (21-28) Arterial Blood Base Excess 3 mmol/L (-3-3) FiO2 80 Glucose (Fingerstick) 114 mg/dL (70-99) Microbiology Micro Microbiology 3/30/19 Blood Culture - Preliminary, Resulted NO GROWTH AFTER 2 DAYS Physical Exam HEENT: Neck Supple W Full Motion Chest: Symmetric, Other Abdomen: Other (obese, anasarca) Extremities: Other (1-2+ pitting edema LLE. R BKA. ) Neurology: other (sedated) Assessment Assessment 1. Acute respiratory failure secondary to congestive heart failure, most probably acute on chronic diastolic. s/p intubation. Myocardial infarction ruled out. Telemetry did not show any significant arrhythmias. s/p aggressive diuresis with significant output- was tachycardiac yesterday evening- resolved with 1L IVFs. Echo showed preserved LV systolic function. Decrease Lasix to daily. Continue vent management per pulmonary team. 2. Sepsis/probable pneumonia: Treat per ID. 3. Acute on chronic renal insufficiency: improved. Nephrology team following 4. Diabetes mellitus type 2: Treat per STEF OVIEDO APRN Mar 02, 2019 13:46
[2019-03-02 14:50] LABS: BILIRUBIN,URINE NEGATIVE (NEG); CLARITY,URINE CLEAR; COLOR,URINE YELLOW; NITRITE,URINE NEGATIVE (NEG); PH,URINE 5.5; PROTEIN,URINE NEGATIVE (NEG-TRACE); UROBILINOGEN,URINE 0.2 mg/dL (0.2 mg/dL)
[2019-03-02 15:04] LABS: RBC,URINE 20-40 /HPF (0-2)
[2019-03-02 15:05] LABS: BACTERIA,URINE 0 /HPF (0-FEW)
--- NOTE | 2019-03-02 15:53 | NUR ---
SS following for discharge planning. SS reviewed pt chart. Pt is from home and is currently on the vent. No discharge needs noted at this time. SS will continue to follow for discharge planning.
[2019-03-02] MEDS: ACETAMINOPHEN 650 MG SUPP.RECT. PR PRN (17:47)
[2019-03-02] MEDS: FAMOTIDINE 20 MG/2 ML VIAL IVP SCH (22:17)
[2019-03-03] VITALS (24 sets, daily range): BP systolic 105–146; BP diastolic 49–69
[2019-03-03] MEDS: MIDAZOLAM 100mg/100ml NS BAG 100 ML IV PRN ×3 (01:29→16:33)
[2019-03-03 03:24] LABS: BASO % 1 % (0-3); EOS # 0.2 x10^3/uL (0.0-0.7); EOS % 3 % (0-3); HEMOGLOBIN 13.5 g/dL (13.0-17.5); LYMPH # 1.2 x10^3/uL (1.0-4.8); LYMPH % 22 % (24-48); MEAN CORPUSCULAR HEMOGLOBIN 30 pg (25-35); MEAN CORPUSCULAR HGB CONC 32 g/dL (31-37); MEAN CORPUSCULAR VOLUME 94 fL (79-100); MONO # 0.4 x10^3/uL (0.0-1.1); MONO % 7 % (0-9); NEUT # 3.8 x10^3uL (1.8-7.7); NEUT % 68 % (31-73); PLATELET COUNT 187 x10^3/uL (140-400); RED BLOOD COUNT 4.45 x10^6/uL (4.30-5.70); RED CELL DISTRIBUTION WIDTH 14.7 % (11.5-14.5); WHITE BLOOD COUNT 5.7 x10^3/uL (4.0-11.0)
[2019-03-03 03:48] LABS: ALBUMIN 2.4 g/dL (3.4-5.0); ALBUMIN/GLOBULIN RATIO 0.5 (1.0-1.7); CALCIUM 8.6 mg/dL (8.5-10.1); CREATININE 1.7 mg/dL (0.7-1.3); GFR 41.9; POTASSIUM 4.1 mmol/L (3.5-5.1); TOTAL BILIRUBIN 0.8 mg/dL (0.2-1.0); TOTAL PROTEIN 7.1 g/dL (6.4-8.2)
[2019-03-03] MEDS: HALOPERIDOL LACTATE 5 MG/ML VIAL. IVP PRN ×2 (04:26→20:00)
[2019-03-03] MEDS: MEROPENEM 500 MG in IV NORMAL SALINE 50ML 50 ML IV SCH ×4 (06:24→23:34)
[2019-03-03] MEDS: HEPARIN for SUB-Q USE 5,000 UNIT/ML VIAL. SQ SCH ×3 (06:27→21:37)
--- NOTE | 2019-03-03 06:28 | PDOC ---
Infectious Disease Note Subjective Subjective intubated/sedated Did try to resist opening of eyes ROS ROS unable to obtain Vital Sign Vital Signs Vital Signs Date Time Temp Pulse Resp B/P (MAP) Pulse Ox O2 Delivery O2 Flow Rate FiO2 03/03/19 06:00 70 16 124/56 (78) 93 Ventilator 03/03/19 04:00 98.8 98.8 Physical Exam PHYSICAL EXAM GENERAL: Sedated and intubated. HEENT: pupils equal. ETT. OGT NECK: Supple. LUNGS: Decreased in bases HEART: S1, S2. ABDOMEN: Distended with decreased bowel sounds. Less firm GENITOURINARY: He has 3-4+ scrotal swelling with some erythema. No gross warmth. EXTREMITIES: No clubbing, cyanosis with 2 + edema. Generalized anasarca better. RLE stump with chronic wound. No erythema/fluctuance/warmth SKIN: Warm to touch without signs of generalized rash. 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 PIV Labs Lab Laboratory Tests Test 03/02/19 09:05 03/02/19 09:40 03/02/19 12:08 03/02/19 14:20 White Blood Count 5.7 x10^3/uL (4.0-11.0) Red Blood Count 4.27 x10^6/uL (4.30-5.70) Hemoglobin 12.9 g/dL (13.0-17.5) Hematocrit 40.3 % (39.0-53.0) Mean Corpuscular Volume 94 fL (79-100) Mean Corpuscular Hemoglobin 30 pg (25-35) Mean Corpuscular Hemoglobin Concent 32 g/dL (31-37) Red Cell Distribution Width 14.7 % (11.5-14.5) Platelet Count 165 x10^3/uL (140-400) Neutrophils (%) (Auto) 74 % (31-73) Lymphocytes (%) (Auto) 14 % (24-48) Monocytes (%) (Auto) 11 % (0-9) Eosinophils (%) (Auto) 2 % (0-3) Basophils (%) (Auto) 0 % (0-3) Neutrophils # (Auto) 4.2 x10^3uL (1.8-7.7) Lymphocytes # (Auto) 0.8 x10^3/uL (1.0-4.8) Monocytes # (Auto) 0.6 x10^3/uL (0.0-1.1) Eosinophils # (Auto) 0.1 x10^3/uL (0.0-0.7) Basophils # (Auto) 0.0 x10^3/uL (0.0-0.2) Sodium Level 146 mmol/L (136-145) Potassium Level 4.1 mmol/L (3.5-5.1) Chloride Level 111 mmol/L (98-107) Carbon Dioxide Level 29 mmol/L (21-32) Anion Gap 6 (6-14) Blood Urea Nitrogen 33 mg/dL (8-26) Creatinine 1.8 mg/dL (0.7-1.3) Estimated GFR (Cockcroft-Gault) 39.2 BUN/Creatinine Ratio 18 (6-20) Glucose Level 120 mg/dL (70-99) Calcium Level 8.2 mg/dL (8.5-10.1) Total Bilirubin 0.8 mg/dL (0.2-1.0) Aspartate Amino Transf (AST/SGOT) 25 U/L (15-37) Alanine Aminotransferase (ALT/SGPT) 16 U/L (16-63) Alkaline Phosphatase 84 U/L (46-116) Total Protein 6.4 g/dL (6.4-8.2) Albumin 2.2 g/dL (3.4-5.0) Albumin/Globulin Ratio 0.5 (1.0-1.7) O2 Saturation 93 % (92-99) Arterial Blood pH 7.42 (7.35-7.45) Arterial Blood pCO2 at Patient Temp 44 mmHg (35-46) Arterial Blood pO2 at Patient Temp 67 mmHg (75-108) Arterial Blood HCO3 28 mmol/L (21-28) Arterial Blood Base Excess 3 mmol/L (-3-3) FiO2 80 Glucose (Fingerstick) 114 mg/dL (70-99) Urine Collection Type Unknown Urine Color Yellow Urine Clarity Clear Urine pH 5.5 Urine Specific [place] 1.010 Urine Protein Negative mg/dL (NEG-TRACE) Urine Glucose (UA) Negative mg/dL (NEG) Urine Ketones (Stick) Negative mg/dL (NEG) Urine Blood Small (NEG) Urine Nitrite Negative (NEG) Urine Bilirubin Negative (NEG) Urine Urobilinogen Dipstick 0.2 mg/dL (0.2 mg/dL) Urine Leukocyte Esterase Trace (NEG) Urine RBC 20-40 /HPF (0-2) Urine WBC 1-4 /HPF (0-4) Urine Bacteria 0 /HPF (0-FEW) Urine Mucus Mod /LPF Test 03/03/19 03:10 White Blood Count 5.7 x10^3/uL (4.0-11.0) Red Blood Count 4.45 x10^6/uL (4.30-5.70) Hemoglobin 13.5 g/dL (13.0-17.5) Hematocrit 42.0 % (39.0-53.0) Mean Corpuscular Volume 94 fL (79-100) Mean Corpuscular Hemoglobin 30 pg (25-35) Mean Corpuscular Hemoglobin Concent 32 g/dL (31-37) Red Cell Distribution Width 14.7 % (11.5-14.5) Platelet Count 187 x10^3/uL (140-400) Neutrophils (%) (Auto) 68 % (31-73) Lymphocytes (%) (Auto) 22 % (24-48) Monocytes (%) (Auto) 7 % (0-9) Eosinophils (%) (Auto) 3 % (0-3) Basophils (%) (Auto) 1 % (0-3) Neutrophils # (Auto) 3.8 x10^3uL (1.8-7.7) Lymphocytes # (Auto) 1.2 x10^3/uL (1.0-4.8) Monocytes # (Auto) 0.4 x10^3/uL (0.0-1.1) Eosinophils # (Auto) 0.2 x10^3/uL (0.0-0.7) Basophils # (Auto) 0.0 x10^3/uL (0.0-0.2) Sodium Level 148 mmol/L (136-145) Potassium Level 4.1 mmol/L (3.5-5.1) Chloride Level 109 mmol/L (98-107) Carbon Dioxide Level 30 mmol/L (21-32) Anion Gap 9 (6-14) Blood Urea Nitrogen 25 mg/dL (8-26) Creatinine 1.7 mg/dL (0.7-1.3) Estimated GFR (Cockcroft-Gault) 41.9 BUN/Creatinine Ratio 15 (6-20) Glucose Level 137 mg/dL (70-99) Calcium Level 8.6 mg/dL (8.5-10.1) Total Bilirubin 0.8 mg/dL (0.2-1.0) Aspartate Amino Transf (AST/SGOT) 25 U/L (15-37) Alanine Aminotransferase (ALT/SGPT) 20 U/L (16-63) Alkaline Phosphatase 91 U/L (46-116) Total Protein 7.1 g/dL (6.4-8.2) Albumin 2.4 g/dL (3.4-5.0) Albumin/Globulin Ratio 0.5 (1.0-1.7) Micro CT IMPRESSION: 1. Mild nonspecific perinephric stranding with slight asymmetric stranding adjacent to the left renal pelvis. Findings may be due to chronic kidney disease, though ascending urinary tract infection is not excluded. 2. Bilateral lower lobe consolidation concerning for multifocal pneumonia or pneumonitis with aspiration not excluded. 3. Right renal hypodensity measuring 2.5 cm is incompletely evaluated on noncontrast examination. Follow-up MRI or CT abdomen and pelvis renal protocol with contrast is recommended for further evaluation. 4. Anasarca. 5. Mild bilateral external iliac lymphadenopathy, may be reactive, though follow-up CT abdomen and pelvis in 3 months is recommended to assess for stability/resolution. 6. Nonobstructive left nephrolithiasis. 7. Coronary artery calcifications. Microbiology 02/28/19 Blood Culture - Preliminary, Resulted NO GROWTH AFTER 1 DAY Objective Assessment Questionable sepsis - improved. Acute respiratory failure, intubated, secondary to fluid overload with questionable aspiration. Scrotal edema/cellulitis. Questionable ileus given apparent food contacts and has OG tube versus mild obstruction versus diabetic gastroparesis. Status post code. Fluid overload - diuresing well. Acute kidney injury - better. Distant history of group B strep, Acinetobacter, Porphyromonas, plus anaerobes. Plan Plan of Care cont Meropenem adjust dose to q 6 Zyvox - Avoid Vanc with LEONARD taper soon Cont Micafungin BC NGTD F/u labs/cults D/w nursing Critically ill QUIANA PACK MD Mar 03, 2019 06:28
--- NOTE | 2019-03-03 07:47 | RAD ---
Portable chest, 03/03/2019: HISTORY: Respiratory failure Comparison is made to yesterday's exam. The ET tube tip lies well above the armani. An NG tube extends into the stomach. There are increasing pulmonary infiltrates with loss of definition of the pulmonary vasculature. The heart is enlarged with partial obscuration of its margins. There is probable pleural fluid contributing to the basilar opacities. There is no evidence of pneumothorax. IMPRESSION: 1. Stable tube positions. 2. Worsening bilateral pulmonary infiltrates likely due to pulmonary edema with probable associated bilateral pleural fluid. Electronically signed by: Moose Astorga MD (03/03/2019 7:44 AM) [facility]
[2019-03-03] MEDS ORDERED: ALBUMIN HUMAN 25% 100 ML IV ONE (08:30)
[2019-03-03] MEDS: IPRATRPIUM/ALBUTEROL 0.5/2.5MG 3 ML NEBU. NEB SCH ×4 (08:34→19:36)
[2019-03-03 08:47] LABS: BASE EXCESS ABG 6 mmol/L (-3-3); HCO3 ABG 31 mmol/L (21-28); PCO2 ABG 49 mmHg (35-46); PO2 ABG 67 mmHg (75-108); SAT O2 ABG 92 % (92-99)
[2019-03-03] MEDS: FUROSEMIDE 40 MG/4 ML VIAL. IVP SCH (08:51)
[2019-03-03] MEDS: FAMOTIDINE 20 MG/2 ML VIAL IVP SCH ×2 (08:51→21:28)
[2019-03-03 08:56] LABS: FIO2 ABG 80
[2019-03-03] MEDS: MICAFUNGIN 100 MG in IV DEXTROSE 5% 100ML 100 ML IV SCH (11:19)
--- NOTE | 2019-03-03 11:21 | PDOC ---
PULMONARY PROGRESS NOTES Subjective SEDATED ON AC MODE, 80% FIO2/ 8 PEEP WORSENING CXR DESPITE DIURESIS Vitals Vital Signs Date Time Temp Pulse Resp B/P (MAP) Pulse Ox O2 Delivery O2 Flow Rate FiO2 03/03/19 11:00 82 15 123/64 (83) 92 Ventilator 03/03/19 04:00 98.8 98.8 Lungs: Other (decrease bs) Cardiovascular: S1, S2, Other (decrease bs) Abdomen: Other (OBESE) Extremities: Other (venous stasis left, right BKA) Labs Laboratory Tests Test 03/01/19 13:21 03/01/19 14:55 03/02/19 09:05 03/02/19 09:40 Glucose (Fingerstick) 124 mg/dL (70-99) Sodium Level 143 mmol/L (136-145) 146 mmol/L (136-145) Potassium Level 3.7 mmol/L (3.5-5.1) 4.1 mmol/L (3.5-5.1) Chloride Level 107 mmol/L (98-107) 111 mmol/L (98-107) Carbon Dioxide Level 29 mmol/L (21-32) 29 mmol/L (21-32) Anion Gap 7 (6-14) 6 (6-14) Blood Urea Nitrogen 42 mg/dL (8-26) 33 mg/dL (8-26) Creatinine 2.1 mg/dL (0.7-1.3) 1.8 mg/dL (0.7-1.3) Estimated GFR (Cockcroft-Gault) 32.8 39.2 Glucose Level 120 mg/dL (70-99) 120 mg/dL (70-99) Calcium Level 8.5 mg/dL (8.5-10.1) 8.2 mg/dL (8.5-10.1) Magnesium Level 2.0 mg/dL (1.8-2.4) White Blood Count 5.7 x10^3/uL (4.0-11.0) Red Blood Count 4.27 x10^6/uL (4.30-5.70) Hemoglobin 12.9 g/dL (13.0-17.5) Hematocrit 40.3 % (39.0-53.0) Mean Corpuscular Volume 94 fL (79-100) Mean Corpuscular Hemoglobin 30 pg (25-35) Mean Corpuscular Hemoglobin Concent 32 g/dL (31-37) Red Cell Distribution Width 14.7 % (11.5-14.5) Platelet Count 165 x10^3/uL (140-400) Neutrophils (%) (Auto) 74 % (31-73) Lymphocytes (%) (Auto) 14 % (24-48) Monocytes (%) (Auto) 11 % (0-9) Eosinophils (%) (Auto) 2 % (0-3) Basophils (%) (Auto) 0 % (0-3) Neutrophils # (Auto) 4.2 x10^3uL (1.8-7.7) Lymphocytes # (Auto) 0.8 x10^3/uL (1.0-4.8) Monocytes # (Auto) 0.6 x10^3/uL (0.0-1.1) Eosinophils # (Auto) 0.1 x10^3/uL (0.0-0.7) Basophils # (Auto) 0.0 x10^3/uL (0.0-0.2) BUN/Creatinine Ratio 18 (6-20) Total Bilirubin 0.8 mg/dL (0.2-1.0) Aspartate Amino Transf (AST/SGOT) 25 U/L (15-37) Alanine Aminotransferase (ALT/SGPT) 16 U/L (16-63) Alkaline Phosphatase 84 U/L (46-116) Total Protein 6.4 g/dL (6.4-8.2) Albumin 2.2 g/dL (3.4-5.0) Albumin/Globulin Ratio 0.5 (1.0-1.7) O2 Saturation 93 % (92-99) Arterial Blood pH 7.42 (7.35-7.45) Arterial Blood pCO2 at Patient Temp 44 mmHg (35-46) Arterial Blood pO2 at Patient Temp 67 mmHg (75-108) Arterial Blood HCO3 28 mmol/L (21-28) Arterial Blood Base Excess 3 mmol/L (-3-3) FiO2 80 Test 03/02/19 12:08 03/02/19 14:20 03/03/19 03:10 03/03/19 06:31 Glucose (Fingerstick) 114 mg/dL (70-99) 131 mg/dL (70-99) Urine Collection Type Unknown Urine Color Yellow Urine Clarity Clear Urine pH 5.5 Urine Specific [place] 1.010 Urine Protein Negative mg/dL (NEG-TRACE) Urine Glucose (UA) Negative mg/dL (NEG) Urine Ketones (Stick) Negative mg/dL (NEG) Urine Blood Small (NEG) Urine Nitrite Negative (NEG) Urine Bilirubin Negative (NEG) Urine Urobilinogen Dipstick 0.2 mg/dL (0.2 mg/dL) Urine Leukocyte Esterase Trace (NEG) Urine RBC 20-40 /HPF (0-2) Urine WBC 1-4 /HPF (0-4) Urine Bacteria 0 /HPF (0-FEW) Urine Mucus Mod /LPF White Blood Count 5.7 x10^3/uL (4.0-11.0) Red Blood Count 4.45 x10^6/uL (4.30-5.70) Hemoglobin 13.5 g/dL (13.0-17.5) Hematocrit 42.0 % (39.0-53.0) Mean Corpuscular Volume 94 fL (79-100) Mean Corpuscular Hemoglobin 30 pg (25-35) Mean Corpuscular Hemoglobin Concent 32 g/dL (31-37) Red Cell Distribution Width 14.7 % (11.5-14.5) Platelet Count 187 x10^3/uL (140-400) Neutrophils (%) (Auto) 68 % (31-73) Lymphocytes (%) (Auto) 22 % (24-48) Monocytes (%) (Auto) 7 % (0-9) Eosinophils (%) (Auto) 3 % (0-3) Basophils (%) (Auto) 1 % (0-3) Neutrophils # (Auto) 3.8 x10^3uL (1.8-7.7) Lymphocytes # (Auto) 1.2 x10^3/uL (1.0-4.8) Monocytes # (Auto) 0.4 x10^3/uL (0.0-1.1) Eosinophils # (Auto) 0.2 x10^3/uL (0.0-0.7) Basophils # (Auto) 0.0 x10^3/uL (0.0-0.2) Sodium Level 148 mmol/L (136-145) Potassium Level 4.1 mmol/L (3.5-5.1) Chloride Level 109 mmol/L (98-107) Carbon Dioxide Level 30 mmol/L (21-32) Anion Gap 9 (6-14) Blood Urea Nitrogen 25 mg/dL (8-26) Creatinine 1.7 mg/dL (0.7-1.3) Estimated GFR (Cockcroft-Gault) 41.9 BUN/Creatinine Ratio 15 (6-20) Glucose Level 137 mg/dL (70-99) Calcium Level 8.6 mg/dL (8.5-10.1) Total Bilirubin 0.8 mg/dL (0.2-1.0) Aspartate Amino Transf (AST/SGOT) 25 U/L (15-37) Alanine Aminotransferase (ALT/SGPT) 20 U/L (16-63) Alkaline Phosphatase 91 U/L (46-116) Total Protein 7.1 g/dL (6.4-8.2) Albumin 2.4 g/dL (3.4-5.0) Albumin/Globulin Ratio 0.5 (1.0-1.7) Test 03/03/19 08:30 O2 Saturation 92 % (92-99) Arterial Blood pH 7.43 (7.35-7.45) Arterial Blood pCO2 at Patient Temp 49 mmHg (35-46) Arterial Blood pO2 at Patient Temp 67 mmHg (75-108) Arterial Blood HCO3 31 mmol/L (21-28) Arterial Blood Base Excess 6 mmol/L (-3-3) FiO2 80 Laboratory Tests Test 03/02/19 12:08 03/02/19 14:20 03/03/19 03:10 03/03/19 06:31 Glucose (Fingerstick) 114 mg/dL (70-99) 131 mg/dL (70-99) Urine Collection Type Unknown Urine Color Yellow Urine Clarity Clear Urine pH 5.5 Urine Specific [place] 1.010 Urine Protein Negative mg/dL (NEG-TRACE) Urine Glucose (UA) Negative mg/dL (NEG) Urine Ketones (Stick) Negative mg/dL (NEG) Urine Blood Small (NEG) Urine Nitrite Negative (NEG) Urine Bilirubin Negative (NEG) Urine Urobilinogen Dipstick 0.2 mg/dL (0.2 mg/dL) Urine Leukocyte Esterase Trace (NEG) Urine RBC 20-40 /HPF (0-2) Urine WBC 1-4 /HPF (0-4) Urine Bacteria 0 /HPF (0-FEW) Urine Mucus Mod /LPF White Blood Count 5.7 x10^3/uL (4.0-11.0) Red Blood Count 4.45 x10^6/uL (4.30-5.70) Hemoglobin 13.5 g/dL (13.0-17.5) Hematocrit 42.0 % (39.0-53.0) Mean Corpuscular Volume 94 fL (79-100) Mean Corpuscular Hemoglobin 30 pg (25-35) Mean Corpuscular Hemoglobin Concent 32 g/dL (31-37) Red Cell Distribution Width 14.7 % (11.5-14.5) Platelet Count 187 x10^3/uL (140-400) Neutrophils (%) (Auto) 68 % (31-73) Lymphocytes (%) (Auto) 22 % (24-48) Monocytes (%) (Auto) 7 % (0-9) Eosinophils (%) (Auto) 3 % (0-3) Basophils (%) (Auto) 1 % (0-3) Neutrophils # (Auto) 3.8 x10^3uL (1.8-7.7) Lymphocytes # (Auto) 1.2 x10^3/uL (1.0-4.8) Monocytes # (Auto) 0.4 x10^3/uL (0.0-1.1) Eosinophils # (Auto) 0.2 x10^3/uL (0.0-0.7) Basophils # (Auto) 0.0 x10^3/uL (0.0-0.2) Sodium Level 148 mmol/L (136-145) Potassium Level 4.1 mmol/L (3.5-5.1) Chloride Level 109 mmol/L (98-107) Carbon Dioxide Level 30 mmol/L (21-32) Anion Gap 9 (6-14) Blood Urea Nitrogen 25 mg/dL (8-26) Creatinine 1.7 mg/dL (0.7-1.3) Estimated GFR (Cockcroft-Gault) 41.9 BUN/Creatinine Ratio 15 (6-20) Glucose Level 137 mg/dL (70-99) Calcium Level 8.6 mg/dL (8.5-10.1) Total Bilirubin 0.8 mg/dL (0.2-1.0) Aspartate Amino Transf (AST/SGOT) 25 U/L (15-37) Alanine Aminotransferase (ALT/SGPT) 20 U/L (16-63) Alkaline Phosphatase 91 U/L (46-116) Total Protein 7.1 g/dL (6.4-8.2) Albumin 2.4 g/dL (3.4-5.0) Albumin/Globulin Ratio 0.5 (1.0-1.7) Test 03/03/19 08:30 O2 Saturation 92 % (92-99) Arterial Blood pH 7.43 (7.35-7.45) Arterial Blood pCO2 at Patient Temp 49 mmHg (35-46) Arterial Blood pO2 at Patient Temp 67 mmHg (75-108) Arterial Blood HCO3 31 mmol/L (21-28) Arterial Blood Base Excess 6 mmol/L (-3-3) FiO2 80 Medications Active Scripts Medications Dose Route/Sig Max Daily Dose Days Date Category Proair Hfa Inhaler (Albuterol Sulfate) 8.5 Gm Hfa.aer.ad 1 Puff INH PRN Q6HRS PRN 02/27/19 Reported Lantus Solostar (Insulin Glargine,Hum.rec.anlog) 100 Unit/1 Ml Insuln.pen 20 Unit SQ QHS 02/27/19 Reported Humalog (Insulin Lispro) 100 Unit/1 Ml Cartridge 6 Unit SQ TIDWMEALS 02/27/19 Reported Doxazosin Mesylate 2 Mg Tablet 2 Mg PO DAILY 02/27/19 Reported Omeprazole 40 Mg Capsule.dr 40 Mg PO DAILY 02/27/19 Reported Amlodipine Besylate 10 Mg Tablet 10 Mg PO DAILY 02/27/19 Reported Atorvastatin Calcium 20 Mg Tablet 20 Mg PO DAILY 02/27/19 Reported Atenolol 50 Mg Tablet 50 Mg PO DAILY 02/27/19 Reported Losartan Potassium 100 Mg Tablet 100 Mg PO DAILY 02/27/19 Reported Aspirin 81 Mg Tab.chew 81 Mg PO DAILY 02/27/19 Reported Glyburide 5 Mg Tablet 1 Tab PO BID 11/09/16 Reported Comments CXR 4/2 worsening bilateral infiltrates Impression . 1. Acute hypoxemic /hypercapnic respiratory failure. 2. Suspected sepsis./ ARDS clinically 3. In-house cardiopulmonary arrest. 4. Normal EF / mild Pulmonary HTN 5. Acute on chronic right-sided heart failure. 6. Possible pneumonia. 7. Morbid obesity. 8. Diabetes. 9. ANASARCA <Conclusion>ECHO The left ventricular systolic function is normal. The ejection fraction is 60-65%. There is normal LV segmental wall motion. Transmitral Doppler flow pattern is Grade I-abnormal relaxation pattern. Trace tricuspid regurgitation. Estimated PAP 33-38 mmHg. There is no evidence of significant pericardial effusion. VENOUS 02/28 Impression: 1. There is no evidence of deep venous thrombosis from the bilateral common femoral to popliteal veins. 2. There is nonspecific right groin lymph node. Plan . AC MODE 80% 8 PEEP, Increase PEEP to 10 WILL CONTINUE SUPPORT ANITBX PER ID Diuresis 1. Continue support with assist control ventilation, 2. Empiric antibiotics. 3. Bilateral venous Dopplers of lower extremities.NEG 4. DVT and GI prophylaxis. 5. Follow Nephrology, Cardiology.rec 6. Enteral nutrition 7. Prognosis guarded 8. Follow cxr d/w RN/ RT cct 30 min ALEJANDRINA WILBURN MD Mar 03, 2019 11:20
--- NOTE | 2019-03-03 12:43 | PDOC ---
Renal-Progress Notes Subjective Notes Notes INTUBATED AND REMAINS IN THE ICU History of Present Illness Hx of present illness OVERALL ABOUT THE SAME. LEONARD IS BETTER Vitals Vitals Vital Signs Date Time Temp Pulse Resp B/P (MAP) Pulse Ox O2 Delivery O2 Flow Rate FiO2 03/03/19 12:07 92 Ventilator 03/03/19 12:00 99.1 110 16 121/55 (77) 99.1 Weight Weight [ ] Stability Assess. Stability Assess.: other (intubated ) I.O. Intake and Output Intake and Output 03/03/19 07:00 Intake Total 1562.2 ml Output Total 6725 ml Balance -5162.8 ml IV Total 1562.2 ml Output Urine Total 6725 ml Labs Labs Laboratory Tests Test 03/02/19 14:20 03/03/19 03:10 03/03/19 06:31 03/03/19 08:30 Urine Collection Type Unknown Urine Color Yellow Urine Clarity Clear Urine pH 5.5 Urine Specific [place] 1.010 Urine Protein Negative mg/dL (NEG-TRACE) Urine Glucose (UA) Negative mg/dL (NEG) Urine Ketones (Stick) Negative mg/dL (NEG) Urine Blood Small (NEG) Urine Nitrite Negative (NEG) Urine Bilirubin Negative (NEG) Urine Urobilinogen Dipstick 0.2 mg/dL (0.2 mg/dL) Urine Leukocyte Esterase Trace (NEG) Urine RBC 20-40 /HPF (0-2) Urine WBC 1-4 /HPF (0-4) Urine Bacteria 0 /HPF (0-FEW) Urine Mucus Mod /LPF White Blood Count 5.7 x10^3/uL (4.0-11.0) Red Blood Count 4.45 x10^6/uL (4.30-5.70) Hemoglobin 13.5 g/dL (13.0-17.5) Hematocrit 42.0 % (39.0-53.0) Mean Corpuscular Volume 94 fL (79-100) Mean Corpuscular Hemoglobin 30 pg (25-35) Mean Corpuscular Hemoglobin Concent 32 g/dL (31-37) Red Cell Distribution Width 14.7 % (11.5-14.5) Platelet Count 187 x10^3/uL (140-400) Neutrophils (%) (Auto) 68 % (31-73) Lymphocytes (%) (Auto) 22 % (24-48) Monocytes (%) (Auto) 7 % (0-9) Eosinophils (%) (Auto) 3 % (0-3) Basophils (%) (Auto) 1 % (0-3) Neutrophils # (Auto) 3.8 x10^3uL (1.8-7.7) Lymphocytes # (Auto) 1.2 x10^3/uL (1.0-4.8) Monocytes # (Auto) 0.4 x10^3/uL (0.0-1.1) Eosinophils # (Auto) 0.2 x10^3/uL (0.0-0.7) Basophils # (Auto) 0.0 x10^3/uL (0.0-0.2) Sodium Level 148 mmol/L (136-145) Potassium Level 4.1 mmol/L (3.5-5.1) Chloride Level 109 mmol/L (98-107) Carbon Dioxide Level 30 mmol/L (21-32) Anion Gap 9 (6-14) Blood Urea Nitrogen 25 mg/dL (8-26) Creatinine 1.7 mg/dL (0.7-1.3) Estimated GFR (Cockcroft-Gault) 41.9 BUN/Creatinine Ratio 15 (6-20) Glucose Level 137 mg/dL (70-99) Calcium Level 8.6 mg/dL (8.5-10.1) Total Bilirubin 0.8 mg/dL (0.2-1.0) Aspartate Amino Transf (AST/SGOT) 25 U/L (15-37) Alanine Aminotransferase (ALT/SGPT) 20 U/L (16-63) Alkaline Phosphatase 91 U/L (46-116) Total Protein 7.1 g/dL (6.4-8.2) Albumin 2.4 g/dL (3.4-5.0) Albumin/Globulin Ratio 0.5 (1.0-1.7) Glucose (Fingerstick) 131 mg/dL (70-99) O2 Saturation 92 % (92-99) Arterial Blood pH 7.43 (7.35-7.45) Arterial Blood pCO2 at Patient Temp 49 mmHg (35-46) Arterial Blood pO2 at Patient Temp 67 mmHg (75-108) Arterial Blood HCO3 31 mmol/L (21-28) Arterial Blood Base Excess 6 mmol/L (-3-3) FiO2 80 Micro Micro Microbiology 02/28/19 Blood Culture - Preliminary, Resulted NO GROWTH AFTER 3 DAYS 02/28/19 Urine Culture - Final, Complete 02/28/19 Urine Culture Result 1 (LUCIO) - Final, Complete Review of Systems Constitutional: yes: unresponsive, other (INTUBATED AND SEDATED) Physical Exam General Appearance: other (SEDATED) Skin: warm Respiratory: decreased breath sounds Heart: S1S2 Abdomen: soft, N/T, bowel sounds present Genitourinary: bladder flat Extremities: pulses present Neurology: other (sedated) Assessment Assessment IMP LEONARD-BETTER WITH CR DOWN TO 1.7 ANASARCA-MUCH BETTER HYPERNATREMIA ACUTE HYPERCARBIC RESP FAILURE SCROTAL EDEMA DUE TO ANASARCA RIGHT RENAL MASS PROB PNEUMONIA PROB SEPSIS PROB RIGHT SIDED CHF WITH DIASTOLIC DYSFUNCTION MORBID OBESITY MALNUTRITION PLAN ANTIBIOTICS VENT SUPPORT LASIX HELD FOR NOW-WILL NEED AGAIN SOON EVAL RENAL MASS LATER CONT TG WILL FOLLOW DEEPTHI MOYA MD Mar 03, 2019 12:43
--- NOTE | 2019-03-03 12:57 | PDOC ---
PROGRESS NOTES Chief Complaint Chief Complaint Assessment/Plan ACUTE RESP ARREST POST CODE ON FLOOR 02/27 Acute respiratory failure secondary to congestive heart failure, most probably acute on chronic diastolic. s/p intubation. Myocardial infarction ruled out. Hypernatremia secondary to severe dehydration will need to provide water flushes in order to correct electrolyte disturbance. 3 weeks of bilateral general scrotal swelling and tenderness. +dyspnea, abd swelling, leg swelling. POA, Dm2 obesity, extreme, morbid hx RLE BKA RLE stump with chronic wound. No erythema/warmth left foot nail onychomycosis needs attention when more clinically stable Acute renal failure ATN Renal CONSULT 3.1-1.8 chronic venous insuff left lower leg nonspecific perinephric stranding with slight asymmetric stranding adjacent to the left renal pelvis. Findings may be due to chronic kidney disease, though ascending urinary tract infection is not excluded. Bilateral lower lobe consolidation concerning for multifocal pneumonia aspiration not excluded. Right renal hypodensity measuring 2.5 cm is incompletely evaluated on noncontrast examination. Follow-up MRI or CT abdomen and pelvis renal protocol with contrast is recommended for further evaluation. Anasarca. bilateral external iliac lymphadenopathy, may be reactive, though follow-up CT abdomen and pelvis in 3 months is recommended to assess for stability/resolution. Nonobstructive left nephrolithiasis. Coronary artery calcifications. The left ventricular systolic function is normal.ejection fraction is 60-65% .normal LV segmental wall motion. Transmitral Doppler flow pattern is Grade I-abnormal relaxation pattern. Trace tricuspid regurgitation. Estimated PAP 33-38 mmHg. PLAN INTUBATED // IN ICU VENT SUPPORT PULM CONSULT CARDIOLOGY CONSULT UROLOGY CONSULT reviewed no intervention needed except for elevation and diuresis ID CONSULT IV Meropenem cont Zyvox - Avoid Vanc with LEONARD IV Micafungin lactic acid/BNP follow ECHO noted PROCALCITONIN with normal results. CT ABD/ PELVIS reviewed 1. Mild nonspecific perinephric stranding with slight asymmetric stranding adjacent to the left renal pelvis. Findings may be due to chronic kidney disease, though ascending urinary tract infection is not excluded. 2. Bilateral lower lobe consolidation concerning for multifocal pneumonia or pneumonitis with aspiration not excluded. 3. Right renal hypodensity measuring 2.5 cm is incompletely evaluated on noncontrast examination. Follow-up MRI or CT abdomen and pelvis renal protocol with contrast is recommended for further evaluation. 4. Anasarca. 5. Mild bilateral external iliac lymphadenopathy, may be reactive, though follow-up CT abdomen and pelvis in 3 months is recommended to assess for stability/resolution. 6. Nonobstructive left nephrolithiasis. 7. Coronary artery calcifications. History of Present Illness History of Present Illness Patient with acute events reported overnight. Continues to be critically ill but seems to be stable at the present time. Discussed with nursing staff at bedside Vitals Vitals Vital Signs Date Time Temp Pulse Resp B/P (MAP) Pulse Ox O2 Delivery O2 Flow Rate FiO2 03/03/19 12:07 92 Ventilator 03/03/19 12:00 99.1 110 16 121/55 (77) 99.1 Physical Exam Physical Exam GENERAL: Sedated and intubated. HEENT: pupils equal. ETT. OGT NECK: Supple. LUNGS: Decreased in bases HEART: S1, S2. ABDOMEN: Distended with decreased bowel sounds. Less firm GENITOURINARY: He has 3-4+ scrotal swelling with some erythema. No gross warmth. EXTREMITIES: No clubbing, cyanosis with 2 + edema. Generalized anasarca better. RLE stump with chronic wound. No erythema/fluctuance/warmth SKIN: Warm to touch without signs of generalized rash. 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 PIV General: Other (SEDATED) Heart: Regular rate, Normal S1, Normal S2, No murmurs, Gallops Lungs: Other (decrease bs) Abdomen: Soft, No tenderness, Other (VERY OBESE) Extremities: No cyanosis, Other (ANASARCA) Skin: Other (scale, lower leg ) Labs LABS Laboratory Tests Test 03/02/19 14:20 03/03/19 03:10 03/03/19 06:31 03/03/19 08:30 Urine Collection Type Unknown Urine Color Yellow Urine Clarity Clear Urine pH 5.5 Urine Specific Beverly 1.010 Urine Protein Negative mg/dL (NEG-TRACE) Urine Glucose (UA) Negative mg/dL (NEG) Urine Ketones (Stick) Negative mg/dL (NEG) Urine Blood Small (NEG) Urine Nitrite Negative (NEG) Urine Bilirubin Negative (NEG) Urine Urobilinogen Dipstick 0.2 mg/dL (0.2 mg/dL) Urine Leukocyte Esterase Trace (NEG) Urine RBC 20-40 /HPF (0-2) Urine WBC 1-4 /HPF (0-4) Urine Bacteria 0 /HPF (0-FEW) Urine Mucus Mod /LPF White Blood Count 5.7 x10^3/uL (4.0-11.0) Red Blood Count 4.45 x10^6/uL (4.30-5.70) Hemoglobin 13.5 g/dL (13.0-17.5) Hematocrit 42.0 % (39.0-53.0) Mean Corpuscular Volume 94 fL (79-100) Mean Corpuscular Hemoglobin 30 pg (25-35) Mean Corpuscular Hemoglobin Concent 32 g/dL (31-37) Red Cell Distribution Width 14.7 % (11.5-14.5) Platelet Count 187 x10^3/uL (140-400) Neutrophils (%) (Auto) 68 % (31-73) Lymphocytes (%) (Auto) 22 % (24-48) Monocytes (%) (Auto) 7 % (0-9) Eosinophils (%) (Auto) 3 % (0-3) Basophils (%) (Auto) 1 % (0-3) Neutrophils # (Auto) 3.8 x10^3uL (1.8-7.7) Lymphocytes # (Auto) 1.2 x10^3/uL (1.0-4.8) Monocytes # (Auto) 0.4 x10^3/uL (0.0-1.1) Eosinophils # (Auto) 0.2 x10^3/uL (0.0-0.7) Basophils # (Auto) 0.0 x10^3/uL (0.0-0.2) Sodium Level 148 mmol/L (136-145) Potassium Level 4.1 mmol/L (3.5-5.1) Chloride Level 109 mmol/L (98-107) Carbon Dioxide Level 30 mmol/L (21-32) Anion Gap 9 (6-14) Blood Urea Nitrogen 25 mg/dL (8-26) Creatinine 1.7 mg/dL (0.7-1.3) Estimated GFR (Cockcroft-Gault) 41.9 BUN/Creatinine Ratio 15 (6-20) Glucose Level 137 mg/dL (70-99) Calcium Level 8.6 mg/dL (8.5-10.1) Total Bilirubin 0.8 mg/dL (0.2-1.0) Aspartate Amino Transf (AST/SGOT) 25 U/L (15-37) Alanine Aminotransferase (ALT/SGPT) 20 U/L (16-63) Alkaline Phosphatase 91 U/L (46-116) Total Protein 7.1 g/dL (6.4-8.2) Albumin 2.4 g/dL (3.4-5.0) Albumin/Globulin Ratio 0.5 (1.0-1.7) Glucose (Fingerstick) 131 mg/dL (70-99) O2 Saturation 92 % (92-99) Arterial Blood pH 7.43 (7.35-7.45) Arterial Blood pCO2 at Patient Temp 49 mmHg (35-46) Arterial Blood pO2 at Patient Temp 67 mmHg (75-108) Arterial Blood HCO3 31 mmol/L (21-28) Arterial Blood Base Excess 6 mmol/L (-3-3) FiO2 80 Assessment and Plan Assessmemt and Plan Problems Medical Problems: (1) Acute renal failure Status: Acute (2) Edema Status: Acute (3) Shortness of breath Status: Acute Comment Review of Relevant I have reviewed the following items pascual (where applicable) has been applied. Labs Laboratory Tests Test 03/01/19 13:21 03/01/19 14:55 03/02/19 09:05 03/02/19 09:40 Glucose (Fingerstick) 124 mg/dL (70-99) Sodium Level 143 mmol/L (136-145) 146 mmol/L (136-145) Potassium Level 3.7 mmol/L (3.5-5.1) 4.1 mmol/L (3.5-5.1) Chloride Level 107 mmol/L (98-107) 111 mmol/L (98-107) Carbon Dioxide Level 29 mmol/L (21-32) 29 mmol/L (21-32) Anion Gap 7 (6-14) 6 (6-14) Blood Urea Nitrogen 42 mg/dL (8-26) 33 mg/dL (8-26) Creatinine 2.1 mg/dL (0.7-1.3) 1.8 mg/dL (0.7-1.3) Estimated GFR (Cockcroft-Gault) 32.8 39.2 Glucose Level 120 mg/dL (70-99) 120 mg/dL (70-99) Calcium Level 8.5 mg/dL (8.5-10.1) 8.2 mg/dL (8.5-10.1) Magnesium Level 2.0 mg/dL (1.8-2.4) White Blood Count 5.7 x10^3/uL (4.0-11.0) Red Blood Count 4.27 x10^6/uL (4.30-5.70) Hemoglobin 12.9 g/dL (13.0-17.5) Hematocrit 40.3 % (39.0-53.0) Mean Corpuscular Volume 94 fL (79-100) Mean Corpuscular Hemoglobin 30 pg (25-35) Mean Corpuscular Hemoglobin Concent 32 g/dL (31-37) Red Cell Distribution Width 14.7 % (11.5-14.5) Platelet Count 165 x10^3/uL (140-400) Neutrophils (%) (Auto) 74 % (31-73) Lymphocytes (%) (Auto) 14 % (24-48) Monocytes (%) (Auto) 11 % (0-9) Eosinophils (%) (Auto) 2 % (0-3) Basophils (%) (Auto) 0 % (0-3) Neutrophils # (Auto) 4.2 x10^3uL (1.8-7.7) Lymphocytes # (Auto) 0.8 x10^3/uL (1.0-4.8) Monocytes # (Auto) 0.6 x10^3/uL (0.0-1.1) Eosinophils # (Auto) 0.1 x10^3/uL (0.0-0.7) Basophils # (Auto) 0.0 x10^3/uL (0.0-0.2) BUN/Creatinine Ratio 18 (6-20) Total Bilirubin 0.8 mg/dL (0.2-1.0) Aspartate Amino Transf (AST/SGOT) 25 U/L (15-37) Alanine Aminotransferase (ALT/SGPT) 16 U/L (16-63) Alkaline Phosphatase 84 U/L (46-116) Total Protein 6.4 g/dL (6.4-8.2) Albumin 2.2 g/dL (3.4-5.0) Albumin/Globulin Ratio 0.5 (1.0-1.7) O2 Saturation 93 % (92-99) Arterial Blood pH 7.42 (7.35-7.45) Arterial Blood pCO2 at Patient Temp 44 mmHg (35-46) Arterial Blood pO2 at Patient Temp 67 mmHg (75-108) Arterial Blood HCO3 28 mmol/L (21-28) Arterial Blood Base Excess 3 mmol/L (-3-3) FiO2 80 Test 03/02/19 12:08 03/02/19 14:20 03/03/19 03:10 03/03/19 06:31 Glucose (Fingerstick) 114 mg/dL (70-99) 131 mg/dL (70-99) Urine Collection Type Unknown Urine Color Yellow Urine Clarity Clear Urine pH 5.5 Urine Specific Beverly 1.010 Urine Protein Negative mg/dL (NEG-TRACE) Urine Glucose (UA) Negative mg/dL (NEG) Urine Ketones (Stick) Negative mg/dL (NEG) Urine Blood Small (NEG) Urine Nitrite Negative (NEG) Urine Bilirubin Negative (NEG) Urine Urobilinogen Dipstick 0.2 mg/dL (0.2 mg/dL) Urine Leukocyte Esterase Trace (NEG) Urine RBC 20-40 /HPF (0-2) Urine WBC 1-4 /HPF (0-4) Urine Bacteria 0 /HPF (0-FEW) Urine Mucus Mod /LPF White Blood Count 5.7 x10^3/uL (4.0-11.0) Red Blood Count 4.45 x10^6/uL (4.30-5.70) Hemoglobin 13.5 g/dL (13.0-17.5) Hematocrit 42.0 % (39.0-53.0) Mean Corpuscular Volume 94 fL (79-100) Mean Corpuscular Hemoglobin 30 pg (25-35) Mean Corpuscular Hemoglobin Concent 32 g/dL (31-37) Red Cell Distribution Width 14.7 % (11.5-14.5) Platelet Count 187 x10^3/uL (140-400) Neutrophils (%) (Auto) 68 % (31-73) Lymphocytes (%) (Auto) 22 % (24-48) Monocytes (%) (Auto) 7 % (0-9) Eosinophils (%) (Auto) 3 % (0-3) Basophils (%) (Auto) 1 % (0-3) Neutrophils # (Auto) 3.8 x10^3uL (1.8-7.7) Lymphocytes # (Auto) 1.2 x10^3/uL (1.0-4.8) Monocytes # (Auto) 0.4 x10^3/uL (0.0-1.1) Eosinophils # (Auto) 0.2 x10^3/uL (0.0-0.7) Basophils # (Auto) 0.0 x10^3/uL (0.0-0.2) Sodium Level 148 mmol/L (136-145) Potassium Level 4.1 mmol/L (3.5-5.1) Chloride Level 109 mmol/L (98-107) Carbon Dioxide Level 30 mmol/L (21-32) Anion Gap 9 (6-14) Blood Urea Nitrogen 25 mg/dL (8-26) Creatinine 1.7 mg/dL (0.7-1.3) Estimated GFR (Cockcroft-Gault) 41.9 BUN/Creatinine Ratio 15 (6-20) Glucose Level 137 mg/dL (70-99) Calcium Level 8.6 mg/dL (8.5-10.1) Total Bilirubin 0.8 mg/dL (0.2-1.0) Aspartate Amino Transf (AST/SGOT) 25 U/L (15-37) Alanine Aminotransferase (ALT/SGPT) 20 U/L (16-63) Alkaline Phosphatase 91 U/L (46-116) Total Protein 7.1 g/dL (6.4-8.2) Albumin 2.4 g/dL (3.4-5.0) Albumin/Globulin Ratio 0.5 (1.0-1.7) Test 03/03/19 08:30 O2 Saturation 92 % (92-99) Arterial Blood pH 7.43 (7.35-7.45) Arterial Blood pCO2 at Patient Temp 49 mmHg (35-46) Arterial Blood pO2 at Patient Temp 67 mmHg (75-108) Arterial Blood HCO3 31 mmol/L (21-28) Arterial Blood Base Excess 6 mmol/L (-3-3) FiO2 80 Laboratory Tests Test 03/02/19 14:20 03/03/19 03:10 03/03/19 06:31 03/03/19 08:30 Urine Collection Type Unknown Urine Color Yellow Urine Clarity Clear Urine pH 5.5 Urine Specific [place] 1.010 Urine Protein Negative mg/dL (NEG-TRACE) Urine Glucose (UA) Negative mg/dL (NEG) Urine Ketones (Stick) Negative mg/dL (NEG) Urine Blood Small (NEG) Urine Nitrite Negative (NEG) Urine Bilirubin Negative (NEG) Urine Urobilinogen Dipstick 0.2 mg/dL (0.2 mg/dL) Urine Leukocyte Esterase Trace (NEG) Urine RBC 20-40 /HPF (0-2) Urine WBC 1-4 /HPF (0-4) Urine Bacteria 0 /HPF (0-FEW) Urine Mucus Mod /LPF White Blood Count 5.7 x10^3/uL (4.0-11.0) Red Blood Count 4.45 x10^6/uL (4.30-5.70) Hemoglobin 13.5 g/dL (13.0-17.5) Hematocrit 42.0 % (39.0-53.0) Mean Corpuscular Volume 94 fL (79-100) Mean Corpuscular Hemoglobin 30 pg (25-35) Mean Corpuscular Hemoglobin Concent 32 g/dL (31-37) Red Cell Distribution Width 14.7 % (11.5-14.5) Platelet Count 187 x10^3/uL (140-400) Neutrophils (%) (Auto) 68 % (31-73) Lymphocytes (%) (Auto) 22 % (24-48) Monocytes (%) (Auto) 7 % (0-9) Eosinophils (%) (Auto) 3 % (0-3) Basophils (%) (Auto) 1 % (0-3) Neutrophils # (Auto) 3.8 x10^3uL (1.8-7.7) Lymphocytes # (Auto) 1.2 x10^3/uL (1.0-4.8) Monocytes # (Auto) 0.4 x10^3/uL (0.0-1.1) Eosinophils # (Auto) 0.2 x10^3/uL (0.0-0.7) Basophils # (Auto) 0.0 x10^3/uL (0.0-0.2) Sodium Level 148 mmol/L (136-145) Potassium Level 4.1 mmol/L (3.5-5.1) Chloride Level 109 mmol/L (98-107) Carbon Dioxide Level 30 mmol/L (21-32) Anion Gap 9 (6-14) Blood Urea Nitrogen 25 mg/dL (8-26) Creatinine 1.7 mg/dL (0.7-1.3) Estimated GFR (Cockcroft-Gault) 41.9 BUN/Creatinine Ratio 15 (6-20) Glucose Level 137 mg/dL (70-99) Calcium Level 8.6 mg/dL (8.5-10.1) Total Bilirubin 0.8 mg/dL (0.2-1.0) Aspartate Amino Transf (AST/SGOT) 25 U/L (15-37) Alanine Aminotransferase (ALT/SGPT) 20 U/L (16-63) Alkaline Phosphatase 91 U/L (46-116) Total Protein 7.1 g/dL (6.4-8.2) Albumin 2.4 g/dL (3.4-5.0) Albumin/Globulin Ratio 0.5 (1.0-1.7) Glucose (Fingerstick) 131 mg/dL (70-99) O2 Saturation 92 % (92-99) Arterial Blood pH 7.43 (7.35-7.45) Arterial Blood pCO2 at Patient Temp 49 mmHg (35-46) Arterial Blood pO2 at Patient Temp 67 mmHg (75-108) Arterial Blood HCO3 31 mmol/L (21-28) Arterial Blood Base Excess 6 mmol/L (-3-3) FiO2 80 Microbiology 02/28/19 Blood Culture - Preliminary, Resulted NO GROWTH AFTER 3 DAYS 02/28/19 Urine Culture - Final, Complete 02/28/19 Urine Culture Result 1 (LUCIO) - Final, Complete Medications Current Medications Ondansetron HCl (Zofran) 4 mg PRN Q8HRS PRN IV NAUSEA/VOMITING; Start 02/27/19 at 16:45; Stop 02/28/19 at 16:44; Status DC Morphine Sulfate (Morphine Sulfate) 2 mg PRN Q2HR PRN IV PAIN; Start 02/27/19 at 16:45; Stop 02/28/19 at 16:44; Status DC Acetaminophen (Tylenol) 650 mg PRN Q4HRS PRN PO FEVER Last administered on 02/27at 21:06; Start 02/27/19 at 16:45; Stop 02/28/19 at 16:44; Status DC Dextrose (Dextrose 50%-Water Syringe) 12.5 gm PRN Q15MIN PRN IV SEE COMMENTS; Start 02/27/19 at 16:45 Heparin Sodium (Porcine) (Heparin Sodium) 5,000 unit Q8HRS SQ Last administered on 03/03/19at 06:27; Start 02/27/19 at 17:00 Lorazepam (Ativan) 1 mg PRN Q8HRS PRN IV ANXIETY / AGITATION Last administered on 03/03/19at 03:14; Start 02/28/19 at 02:45 Etomidate (Amidate) 20 mg STK-MED ONCE IV ; Start 02/28/19 at 06:59; Stop at 07:00; Status DC Rocuronium Lititz (Zemuron) 50 mg STK-MED ONCE .ROUTE ; Start 02/28/19 at 07:00 ; Stop 02/28/19 at 09:42; Status DC Dopamine HCl/ Dextrose 250 ml @ 12.266 mls/ hr CONT PRN IV SEE I/O RECORD Last administered on 02/28/19at 08:06; Start 02/28/19 at 07:15 Fentanyl Citrate 30 ml @ 0 mls/hr CONT PRN IV SEE PROTOCOL; Start 02/28/19 at 07:15; Stop 02/28/19 at 07:59; Status DC Propofol 100 ml @ 0 mls/hr CONT PRN IV SEE PROTOCOL; Start 02/28/19 at 07:15; Stop 02/28/19 at 07:59; Status DC Fentanyl Citrate (Fentanyl 2ml Vial) 25 mcg PRN Q1HR PRN IV SEE COMMENTS; Start 02/28/19 at 07:15; Stop 02/28/19 at 07:59; Status DC Fentanyl Citrate (Fentanyl 2ml Vial) 50 mcg PRN Q1HR PRN IV SEE COMMENTS; Start 02/28/19 at 07:15; Stop 02/28/19 at 07:59; Status DC Midazolam HCl 100 ml @ 0 mls/hr CONT PRN IV SEE PROTOCOL Last administered on at 08:51; Start 02/28/19 at 07:15 Sodium Chloride 1,000 ml @ 1,000 mls/hr Q1H IV Last administered on 02/28/19at 07:32; Start 02/28/19 at 07:32; Stop 02/28/19 at 10:09; Status DC Fentanyl Citrate (Fentanyl 2ml Vial) 25 mcg PRN Q30MIN PRN IV see comments; Start 02/28/19 at 07:45; Stop 02/28/19 at 09:42; Status DC Lorazepam (Ativan) 1 mg PRN Q30MIN PRN IV SEDATION; Start 02/28/19 at 07:45; Stop 02/28/19 at 09:42; Status DC Fentanyl Citrate 30 ml @ 2.5 mls/hr CONT PRN PRN IV SEE I/O RECORD Last administered on 03/03/19at 09:23; Start 02/28/19 at 07:45 Propofol 100 ml @ 0 mls/hr CONT PRN IV SEE I/O RECORD; Start 02/28/19 at 07:45 Vecuronium Lititz (Norcuron Bolus) 10 mg PRN Q30MIN PRN IV SHIVERING; Start at 07:45; Stop 02/28/19 at 09:42; Status DC Meperidine HCl (Demerol) 12.5 mg PRN Q30MIN PRN IV SHIVERING; Start 02/28/19 at 07:45; Stop 02/28/19 at 09:42; Status DC Multi-Ingred Cream/Lotion/Oil/ Oint (Artificial Tears Eye Ointment) 1 jennifer PRN Q6HRS PRN OU 0.5 INCH FOR DRY EYE; Start 02/28/19 at 07:45; Stop 02/28/19 at 09 :42; Status DC Famotidine (Pepcid Vial) 20 mg BID IVP Last administered on 02/28/19at 11:03; Start 02/28/19 at 09:00; Stop 02/28/19 at 14:25; Status DC Aspirin (Aspirin) 300 mg DAILY CO ; Start 02/28/19 at 09:00; Stop 02/28/19 at 09 :42; Status DC Sodium Chloride (Normal Saline Flush) 3 ml QSHIFT PRN IV AFTER MEDS AND BLOOD DRAWS; Start 02/28/19 at 07:45 Acetaminophen (Tylenol) 650 mg Q6HRS NG ; Start 02/28/19 at 12:00; Stop at 12:00; Status DC Acetaminophen (Tylenol Supp) 650 mg PRN Q6HRS PRN CO MILD PAIN / TEMP; Start at 07:45; Stop 03/01/19 at 07:45; Status DC Acetaminophen (Tylenol) 650 mg PRN Q6HRS PRN NG MILD PAIN / TEMP; Start at 07:45; Stop 03/01/19 at 07:45; Status DC Info (Icu Electrolyte Protocol) 1 ea DAILY PRN MC PER PROTOCOL; Start 03/02/19 at 07:45; Stop 03/02/19 at 07:45; Status DC Furosemide (Lasix) 60 mg 1X ONCE IVP Last administered on 02/28/19at 08:30; Start 02/28/19 at 08:30; Stop 02/28/19 at 08:31; Status DC Ceftriaxone Sodium (Rocephin) 1 gm Q24H IVP Last administered on 02/28/19at 11: 03; Start 02/28/19 at 11:00; Stop 02/28/19 at 11:18; Status DC Calcium Chloride 1000 mg/Dextrose 60 ml @ 120 mls/hr 1X ONCE IV Last administered on 02/28/19at 11:03; Start 02/28/19 at 10:30; Stop 02/28/19 at 10:59 ; Status DC Meropenem 500 mg/ Sodium Chloride 50 ml @ 100 mls/hr Q8HRS IV Last administered on 03/03/19at 06:24; Start 02/28/19 at 14:00; Stop 03/03/19 at 07:04; Status DC Linezolid/Dextrose 300 ml @ 300 mls/hr Q12HR IV Last administered on 03/03/19at 08:52; Start 02/28/19 at 11:30 Micafungin Sodium 100 mg/Dextrose 100 ml @ 100 mls/hr Q24H IV Last administered on 03/03/19at 11:19; Start 02/28/19 at 12:00 Furosemide (Lasix) 40 mg [id number] IVP Last administered on 03/02/19at 14:06; Start 02/28/19 at 14:00; Stop 03/02/19 at 17:02; Status DC Famotidine (Pepcid Vial) 20 mg QHS IVP Last administered on 03/01/19at 21:24; Start 02/28/19 at 21:00; Stop 03/02/19 at 10:07; Status DC Albuterol/ Ipratropium (Duoneb) 3 ml RTQID NEB Last administered on 03/03/19 12 :07; Start 02/28/19 at 16:00 Haloperidol Lactate (Haldol Inj) 5 mg PRN Q6HRS PRN IVP AGITATION Last administered on 03/03/19 04:26; Start 02/28/19 at 15:15 Vecuronium Lititz (Norcuron Bolus) 8 mg PRN Q4HRS PRN IV MUSCLE SPASMS Last administered on 02/28/19at 15:27; Start 02/28/19 at 15:15 Perflutren Protein Type A Microsphe (Optison) 0.66 mg PRN 1X PRN IV SEE COMMENTS; Start 03/01/19 at 10:00; Stop 03/02/19 at 09:59; Status DC Digoxin (Lanoxin) 125 mcg 1X STAT IV ; Start 03/01/19 at 15:34; Stop 03/01/19 at 16:00; Status DC Sodium Chloride 500 ml @ 500 mls/hr 1X ONCE IV Last administered on at 18:46; Start 03/01/19 at 18:45; Stop 03/01/19 at 19:44; Status DC Famotidine (Pepcid Vial) 20 mg Q12HR IVP Last administered on 03/03/19 08:51; Start 03/02/19 at 21:00 Furosemide (Lasix) 40 mg DAILY IVP Last administered on 03/03/19at 08:51; Start 03/03/19 at 09:00 Acetaminophen (Tylenol Supp) 650 mg PRN Q6HRS PRN CO MILD PAIN / TEMP Last administered on 03/02/19at 17:47; Start 03/02/19 at 17:15 Meropenem 500 mg/ Sodium Chloride 50 ml @ 100 mls/hr Q6HRS IV Last administered on 03/03/19 12:09; Start 03/03/19 at 12:00 Albumin Human 100 ml @ 100 mls/hr 1X ONCE IV Last administered on 03/03/19 08 :52; Start 03/03/19 at 08:30; Stop 03/03/19 at 09:29; Status DC Active Scripts Active Reported Proair Hfa Inhaler (Albuterol Sulfate) 8.5 Gm Hfa.aer.ad 1 Puff INH PRN Q6HRS PRN Lantus Solostar (Insulin Glargine,Hum.rec.anlog) 100 Unit/1 Ml Insuln.pen 20 Unit SQ QHS Humalog (Insulin Lispro) 100 Unit/1 Ml Cartridge 6 Unit SQ TIDWMEALS Doxazosin Mesylate 2 Mg Tablet 2 Mg PO DAILY Omeprazole 40 Mg Capsule.dr 40 Mg PO DAILY Amlodipine Besylate 10 Mg Tablet 10 Mg PO DAILY Atorvastatin Calcium 20 Mg Tablet 20 Mg PO DAILY Atenolol 50 Mg Tablet 50 Mg PO DAILY Losartan Potassium 100 Mg Tablet 100 Mg PO DAILY Aspirin 81 Mg Tab.chew 81 Mg PO DAILY Glyburide 5 Mg Tablet 1 Tab PO BID Vitals/I & O Vital Sign - Last 24 Hours 03/02/19 03/02/19 03/02/19 03/02/19 13:00 14:00 14:03 14:10 Pulse 85 83 Resp 15 16 B/P (MAP) 121/62 (81) 127/66 (86) Pulse Ox 95 94 95 93 O2 Delivery Ventilator Ventilator Ventilator 03/02/19 03/02/19 03/02/19 03/02/19 15:00 16:00 16:00 16:10 Temp 99.5 99.5 Pulse 79 80 Resp 16 16 B/P (MAP) 118/58 (78) 130/70 (90) Pulse Ox 94 93 93 O2 Delivery Ventilator Mechanical Ventilator Ventilator Ventilator 03/02/19 03/02/19 03/02/19 03/02/19 17:00 17:24 18:00 19:00 Pulse 85 86 80 Resp 16 17 18 B/P (MAP) 125/64 (84) 120/65 (83) 118/59 (78) Pulse Ox 94 94 94 95 O2 Delivery Ventilator Ventilator Ventilator Ventilator 03/02/19 03/02/19 03/02/19 03/02/19 19:50 20:00 20:00 20:51 Temp 99.9 99.9 Pulse 87 Resp 12 16 B/P (MAP) 129/62 (84) Pulse Ox 94 94 94 O2 Delivery Ventilator Ventilator Mechanical Ventilator Ventilator 03/02/19 03/02/19 03/02/19 03/02/19 21:00 21:35 22:00 23:00 Pulse 84 78 74 Resp 16 16 16 B/P (MAP) 145/70 (95) 140/64 (89) 142/69 (93) Pulse Ox 94 94 94 95 O2 Delivery Ventilator Ventilator Ventilator Ventilator 03/02/19 03/02/19 03/03/19 03/03/19 23:50 23:59 00:00 01:00 Temp 98.5 98.5 Pulse 73 77 Resp 18 16 B/P (MAP) 146/67 (93) 137/61 (86) Pulse Ox 95 94 94 O2 Delivery Ventilator Mechanical Ventilator Ventilator Ventilator 03/03/19 03/03/19 03/03/19 03/03/19 02:00 02:05 03:00 03:18 Pulse 72 78 Resp 17 18 16 B/P (MAP) 144/66 (92) 117/65 (82) Pulse Ox 95 94 90 95 O2 Delivery Ventilator Ventilator Ventilator Ventilator 03/03/19 03/03/19 03/03/19 03/03/19 03:48 04:00 04:00 04:50 Temp 98.8 98.8 Pulse 74 Resp 16 16 B/P (MAP) 116/61 (79) Pulse Ox 94 95 O2 Delivery Ventilator Ventilator Mechanical Ventilator Ventilator 03/03/19 03/03/19 03/03/19 03/03/19 05:00 06:00 07:00 08:00 Pulse 70 70 71 Resp 15 16 18 B/P (MAP) 113/55 (74) 124/56 (78) 124/56 (78) Pulse Ox 93 93 93 O2 Delivery Ventilator Ventilator Ventilator Mechanical Ventilator 03/03/19 03/03/19 03/03/19 03/03/19 08:00 08:30 09:00 09:23 Pulse 75 79 Resp 18 17 B/P (MAP) 118/69 (85) 108/56 (73) Pulse Ox 92 92 92 92 O2 Delivery Ventilator Ventilator Ventilator 03/03/19 03/03/19 03/03/19 03/03/19 09:53 10:00 11:00 12:00 Temp 99.1 99.1 Pulse 85 82 110 Resp 18 15 16 B/P (MAP) 105/56 (72) 123/64 (83) 121/55 (77) Pulse Ox 92 94 92 93 O2 Delivery Ventilator Ventilator Ventilator 03/03/19 03/03/19 12:00 12:07 Pulse Ox 92 O2 Delivery Mechanical Ventilator Ventilator Intake and Output 4/1/19 4/1/19 4/2/19 15:00 23:00 07:00 Intake Total 350 ml 611.2 ml 601 ml Output Total 3050 ml 2450 ml 1225 ml Balance -2700 ml -1838.8 ml -624 ml MICHAEL BURRIS MD Mar 03, 2019 12:57
[2019-03-03] MEDS: ACETAMINOPHEN 650 MG SUPP.RECT. PR PRN (17:39)
[2019-03-03] MEDS ORDERED: FUROSEMIDE 40 MG/4 ML VIAL. IVP ONE (18:45)
[2019-03-03] MEDS ORDERED: LORazepam 100 MG in IV NORMAL SALINE 100ML 50 ML IV PRN (22:00)
[2019-03-04] VITALS (24 sets, daily range): BP systolic 103–146; BP diastolic 53–70
[2019-03-04] MEDS: MIDAZOLAM 100mg/100ml NS BAG 100 ML IV PRN ×3 (00:09→19:14)
[2019-03-04] MEDS: VECURONIUM BOLUS 10 MG VIAL. IV PRN ×2 (00:41→04:47)
[2019-03-04] MEDS: HALOPERIDOL LACTATE 5 MG/ML VIAL. IVP PRN (02:11)
[2019-03-04 05:06] LABS: BASO % 1 % (0-3); EOS # 0.2 x10^3/uL (0.0-0.7); EOS % 4 % (0-3); HEMATOCRIT 41.1 % (39.0-53.0); LYMPH # 0.7 x10^3/uL (1.0-4.8); LYMPH % 14 % (24-48); MEAN CORPUSCULAR HEMOGLOBIN 30 pg (25-35); MEAN CORPUSCULAR HGB CONC 32 g/dL (31-37); MEAN CORPUSCULAR VOLUME 95 fL (79-100); MONO # 0.4 x10^3/uL (0.0-1.1); MONO % 8 % (0-9); NEUT # 3.8 x10^3uL (1.8-7.7); NEUT % 73 % (31-73); PLATELET COUNT 187 x10^3/uL (140-400); RED BLOOD COUNT 4.33 x10^6/uL (4.30-5.70); RED CELL DISTRIBUTION WIDTH 14.6 % (11.5-14.5); WHITE BLOOD COUNT 5.1 x10^3/uL (4.0-11.0)
[2019-03-04 05:27] LABS: ALBUMIN 2.4 g/dL (3.4-5.0); ALBUMIN/GLOBULIN RATIO 0.6 (1.0-1.7); CALCIUM 8.5 mg/dL (8.5-10.1); CREATININE 1.5 mg/dL (0.7-1.3); GFR 48.4; POTASSIUM 4.1 mmol/L (3.5-5.1); TOTAL BILIRUBIN 0.9 mg/dL (0.2-1.0); TOTAL PROTEIN 6.7 g/dL (6.4-8.2)
[2019-03-04] MEDS: MEROPENEM 500 MG in IV NORMAL SALINE 50ML 50 ML IV SCH ×4 (05:50→23:34)
[2019-03-04] MEDS: HEPARIN for SUB-Q USE 5,000 UNIT/ML VIAL. SQ SCH ×3 (06:04→21:18)
--- NOTE | 2019-03-04 07:50 | RAD ---
PORTABLE CHEST 1V History: Respiratory failure Comparison: March 03, 2019 Findings: AP portable view of the chest is submitted. Pericardial cardiac silhouette is again enlarged. There is again prominence of mediastinal width. There is enteric catheter coursing into the stomach, not fully seen. Endotracheal tube tip terminates about 1 cm from armani. There is fairly diffuse airspace opacity of the right hemithorax other than sparing of the apex, also airspace opacity of the mid to inferior left hemithorax. Overall degree of airspace opacity bilaterally is similar compared with the recent exam although increased compared with March 02, 2019 exam. There are again bilateral pleural effusions difficult to quantify, obscured hemidiaphragms bilaterally. No pneumothorax is identified. Impression: 1. There is again right greater than left airspace opacity which may be due to edema and/or infiltrates, also bilateral pleural effusions. There is again enlargement of the pericardial cardiac silhouette. There may be component of left ventricular failure. Electronically signed by: Taras Mendoza MD (03/04/2019 7:47 AM) [id number]
[2019-03-04] MEDS: IPRATRPIUM/ALBUTEROL 0.5/2.5MG 3 ML NEBU. NEB SCH ×4 (08:33→20:10)
--- NOTE | 2019-03-04 08:44 | PDOC ---
SUBJECTIVE Subjective Pt still intubated and sedated. Scrotal size about the same, urine output has been good. Nursing has no concerns for Urology. OBJECTIVE Objective General appearance: Intubated and sedated. Appears comfortable. Head: Normocephalic, without obvious abnormality. Intubated. Lungs: Regular respirations with machine assistance Abdomen: soft, obese . No masses, no organomegaly Pelvic: + swollen scrotum, no open areas or weeping, Nursing staff has this supported with a pillow case in "hammock" fashion and supported with a towel. Buried phallus with + Coburn in place draining clear yellow urine. Device in good working order. Vital Signs Vital Signs Date Time Temp Pulse Resp B/P (MAP) Pulse Ox O2 Delivery O2 Flow Rate FiO2 03/04/19 08:33 95 Ventilator 03/04/19 06:35 16 94 Ventilator 03/04/19 06:05 16 94 Ventilator 03/04/19 06:00 73 18 142/66 (91) 94 Ventilator 03/04/19 05:50 93 Ventilator 03/04/19 05:00 77 16 146/70 (95) 94 Ventilator 03/04/19 04:00 99.7 77 16 121/56 (77) 95 Ventilator 99.7 03/04/19 04:00 Mechanical Ventilator 03/04/19 03:00 93 Ventilator 03/04/19 03:00 88 16 118/55 (76) 92 Ventilator 03/04/19 02:00 76 18 123/56 (78) 92 Ventilator 03/04/19 01:59 16 94 Ventilator 03/04/19 01:00 79 18 140/61 (87) 94 Ventilator 03/04/19 00:03 92 Ventilator 03/04/19 00:00 100.1 79 16 143/59 (87) 95 Ventilator 100.1 03/03/19 23:59 Mechanical Ventilator 03/03/19 23:00 96 18 117/52 (73) 94 Ventilator 03/03/19 22:00 76 16 119/50 (73) 94 Ventilator 03/03/19 21:08 94 Ventilator 03/03/19 21:00 79 16 133/56 (81) 94 Ventilator 03/03/19 20:32 18 94 Ventilator 03/03/19 20:00 100.4 79 16 114/49 (70) 94 Ventilator 100.4 03/03/19 20:00 Mechanical Ventilator 03/03/19 19:36 93 Ventilator 03/03/19 19:00 76 18 128/54 (78) 93 Ventilator 03/03/19 18:00 82 12 116/57 (76) 93 Ventilator 03/03/19 17:40 94 Ventilator 03/03/19 17:00 83 16 119/61 (80) 95 Ventilator 03/03/19 16:04 92 Ventilator 03/03/19 16:00 Mechanical Ventilator 03/03/19 16:00 99.9 78 10 122/55 (77) 93 Ventilator 99.9 03/03/19 15:57 93 03/03/19 15:00 77 15 114/53 (73) 93 Ventilator 03/03/19 14:00 81 16 113/54 (73) 94 Ventilator 03/03/19 13:00 80 15 114/59 (77) 89 Ventilator 03/03/19 12:07 92 Ventilator 03/03/19 12:00 Mechanical Ventilator 03/03/19 12:00 99.1 110 16 121/55 (77) 93 Ventilator 99.1 03/03/19 11:00 82 15 123/64 (83) 92 Ventilator 03/03/19 10:00 85 18 105/56 (72) 94 Ventilator 03/03/19 09:23 92 03/03/19 09:00 79 17 108/56 (73) 92 Ventilator I & O Intake and Output 03/04/19 07:00 Intake Total 4528.82 ml Output Total 4900 ml Balance -371.18 ml IV Total 1182.82 ml Tube Feeding 2346 ml Blood Product IV Normal Saline Flush 700 ml Other 300 ml Output Urine Total 4900 ml Gastric Drainage Total 0 ml PHYSICAL EXAM Physical Exam General appearance: Intubated and sedated. Appears comfortable. Head: Normocephalic, without obvious abnormality. Intubated. Lungs: Regular respirations with machine assistance Abdomen: soft, obese . No masses, no organomegaly Pelvic: + swollen scrotum, no open areas or weeping, Nursing staff has this supported with a pillow case in "hammock" fashion and supported with a towel. Buried phallus with + Coburn in place draining clear yellow urine. Device in good working order. ASSESSMENT/PLAN Assessment/Plan Scrotal size is about the same as when checked on 03/02/19. Scrotal US done on 02/27 reviewed by Valentina= bl small hydroceles, no abscess. Bilateral hydroceles noted which are clinically insignificant. scrotal swelling is secondary to anasarca. Continue rest, ice , scrotal elevation. Nursing staff to continue to maintain Coburn catheter. Would consider repeat US for significant increase in size or appearance ( doubling in size) Will follow peripherally Problems: (1) Edema COMMENT Lab Laboratory Tests Test 03/03/19 15:23 03/04/19 04:52 Glucose (Fingerstick) 150 mg/dL (70-99) White Blood Count 5.1 x10^3/uL (4.0-11.0) Red Blood Count 4.33 x10^6/uL (4.30-5.70) Hemoglobin 13.0 g/dL (13.0-17.5) Hematocrit 41.1 % (39.0-53.0) Mean Corpuscular Volume 95 fL (79-100) Mean Corpuscular Hemoglobin 30 pg (25-35) Mean Corpuscular Hemoglobin Concent 32 g/dL (31-37) Red Cell Distribution Width 14.6 % (11.5-14.5) Platelet Count 187 x10^3/uL (140-400) Neutrophils (%) (Auto) 73 % (31-73) Lymphocytes (%) (Auto) 14 % (24-48) Monocytes (%) (Auto) 8 % (0-9) Eosinophils (%) (Auto) 4 % (0-3) Basophils (%) (Auto) 1 % (0-3) Neutrophils # (Auto) 3.8 x10^3uL (1.8-7.7) Lymphocytes # (Auto) 0.7 x10^3/uL (1.0-4.8) Monocytes # (Auto) 0.4 x10^3/uL (0.0-1.1) Eosinophils # (Auto) 0.2 x10^3/uL (0.0-0.7) Basophils # (Auto) 0.0 x10^3/uL (0.0-0.2) Sodium Level 146 mmol/L (136-145) Potassium Level 4.1 mmol/L (3.5-5.1) Chloride Level 106 mmol/L (98-107) Carbon Dioxide Level 33 mmol/L (21-32) Anion Gap 7 (6-14) Blood Urea Nitrogen 21 mg/dL (8-26) Creatinine 1.5 mg/dL (0.7-1.3) Estimated GFR (Cockcroft-Gault) 48.4 BUN/Creatinine Ratio 14 (6-20) Glucose Level 195 mg/dL (70-99) Calcium Level 8.5 mg/dL (8.5-10.1) Total Bilirubin 0.9 mg/dL (0.2-1.0) Aspartate Amino Transf (AST/SGOT) 22 U/L (15-37) Alanine Aminotransferase (ALT/SGPT) 21 U/L (16-63) Alkaline Phosphatase 83 U/L (46-116) Total Protein 6.7 g/dL (6.4-8.2) Albumin 2.4 g/dL (3.4-5.0) Albumin/Globulin Ratio 0.6 (1.0-1.7) Lipase 83 U/L (73-393) Imaging Scrotal US 1. There is severe scrotal wall thickening with edema left greater than right, evidence of cellulitis. There is no evidence of solid intratesticular mass, small cyst on the right. There is no evidence of testicular torsion. Problem Qualifiers (1) Edema: Edema type: unspecified Qualified Codes: R60.9 - Edema, unspecified CHRIS CHAVEZ APRN Mar 04, 2019 08:44
--- NOTE | 2019-03-04 08:56 | PDOC ---
Infectious Disease Note Subjective Subjective intubated/sedated ROS ROS unable to obtain Vital Sign Vital Signs Vital Signs Date Time Temp Pulse Resp B/P (MAP) Pulse Ox O2 Delivery O2 Flow Rate FiO2 03/04/19 08:33 95 Ventilator 03/04/19 06:35 16 03/04/19 06:00 73 142/66 (91) 03/04/19 04:00 99.7 99.7 Physical Exam PHYSICAL EXAM GENERAL: Sedated and intubated. HEENT: pupils equal. ETT. OGT NECK: Supple. LUNGS: Decreased in bases HEART: S1, S2. ABDOMEN: Distended with decreased bowel sounds. Less firm GENITOURINARY: He has 3-4+ scrotal swelling with some erythema. No gross warmth. EXTREMITIES: No clubbing, cyanosis with 2 + edema. Generalized anasarca. RLE stump with chronic wound. No erythema/fluctuance/warmth SKIN: Warm to touch without signs of generalized rash. [employer]: Unresponsive/sedated PIV Labs Lab Laboratory Tests Test 03/03/19 15:23 03/04/19 04:52 Glucose (Fingerstick) 150 mg/dL (70-99) White Blood Count 5.1 x10^3/uL (4.0-11.0) Red Blood Count 4.33 x10^6/uL (4.30-5.70) Hemoglobin 13.0 g/dL (13.0-17.5) Hematocrit 41.1 % (39.0-53.0) Mean Corpuscular Volume 95 fL (79-100) Mean Corpuscular Hemoglobin 30 pg (25-35) Mean Corpuscular Hemoglobin Concent 32 g/dL (31-37) Red Cell Distribution Width 14.6 % (11.5-14.5) Platelet Count 187 x10^3/uL (140-400) Neutrophils (%) (Auto) 73 % (31-73) Lymphocytes (%) (Auto) 14 % (24-48) Monocytes (%) (Auto) 8 % (0-9) Eosinophils (%) (Auto) 4 % (0-3) Basophils (%) (Auto) 1 % (0-3) Neutrophils # (Auto) 3.8 x10^3uL (1.8-7.7) Lymphocytes # (Auto) 0.7 x10^3/uL (1.0-4.8) Monocytes # (Auto) 0.4 x10^3/uL (0.0-1.1) Eosinophils # (Auto) 0.2 x10^3/uL (0.0-0.7) Basophils # (Auto) 0.0 x10^3/uL (0.0-0.2) Sodium Level 146 mmol/L (136-145) Potassium Level 4.1 mmol/L (3.5-5.1) Chloride Level 106 mmol/L (98-107) Carbon Dioxide Level 33 mmol/L (21-32) Anion Gap 7 (6-14) Blood Urea Nitrogen 21 mg/dL (8-26) Creatinine 1.5 mg/dL (0.7-1.3) Estimated GFR (Cockcroft-Gault) 48.4 BUN/Creatinine Ratio 14 (6-20) Glucose Level 195 mg/dL (70-99) Calcium Level 8.5 mg/dL (8.5-10.1) Total Bilirubin 0.9 mg/dL (0.2-1.0) Aspartate Amino Transf (AST/SGOT) 22 U/L (15-37) Alanine Aminotransferase (ALT/SGPT) 21 U/L (16-63) Alkaline Phosphatase 83 U/L (46-116) Total Protein 6.7 g/dL (6.4-8.2) Albumin 2.4 g/dL (3.4-5.0) Albumin/Globulin Ratio 0.6 (1.0-1.7) Lipase 83 U/L (73-393) Micro CT IMPRESSION: 1. Mild nonspecific perinephric stranding with slight asymmetric stranding adjacent to the left renal pelvis. Findings may be due to chronic kidney disease, though ascending urinary tract infection is not excluded. 2. Bilateral lower lobe consolidation concerning for multifocal pneumonia or pneumonitis with aspiration not excluded. 3. Right renal hypodensity measuring 2.5 cm is incompletely evaluated on noncontrast examination. Follow-up MRI or CT abdomen and pelvis renal protocol with contrast is recommended for further evaluation. 4. Anasarca. 5. Mild bilateral external iliac lymphadenopathy, may be reactive, though follow-up CT abdomen and pelvis in 3 months is recommended to assess for stability/resolution. 6. Nonobstructive left nephrolithiasis. 7. Coronary artery calcifications. Microbiology 02/28/19 Blood Culture - Preliminary, Resulted NO GROWTH AFTER 1 DAY Objective Assessment Questionable sepsis - improved. Low grade temps Acute respiratory failure, intubated, secondary to fluid overload with questionable aspiration. Scrotal edema/cellulitis. Status post code. Fluid overload - mild increase Acute kidney injury - better. Distant history of group B strep, Acinetobacter, Porphyromonas, plus anaerobes. Plan Plan of Care Add Procalcitonin to this am labs cont Meropenem adjust dose to q 6 D/c Zyvox - Avoid Vanc with LEONARD - Cont Micafungin BC NGTD F/u labs/cults in am D/w nursing Critically ill QUIANA PACK MD Mar 04, 2019 08:56
[2019-03-04 09:24] LABS: BASE EXCESS ABG 6 mmol/L (-3-3); HCO3 ABG 30 mmol/L (21-28); PCO2 ABG 42 mmHg (35-46); PO2 ABG 65 mmHg (75-108); SAT O2 ABG 93 % (92-99)
[2019-03-04 09:29] LABS: FIO2 ABG 80
--- NOTE | 2019-03-04 09:37 | NUR ---
RN called Dr. Freed-- order received to get central line placed. Will receive consent from patient's family via phone. Only one patent PIV at this time. Upon assessing patient, RN found R pupil to be 2 cm, L pupil to be 1cm. Both reactive. Periorbital edema has significantly decreased according to Dr. Amador upon rounding. Ativan, Versed, Fentanyl gtt's all running at this time. RN notified Dr. Freed of different pupil sizes. No orders received at this time. Will continue to assess throughout shift. Will consult neurology if indicated by MD. See assessments, VS.
[2019-03-04] MEDS: FUROSEMIDE 40 MG/4 ML VIAL. IVP SCH ×2 (09:52→15:22)
[2019-03-04] MEDS: FAMOTIDINE 20 MG/2 ML VIAL IVP SCH ×2 (09:52→21:18)
--- NOTE | 2019-03-04 11:39 | PDOC ---
PULMONARY PROGRESS NOTES Subjective SEDATED ON AC MODE, 80% FIO2/ 10 PEEP WORSENING CXR DESPITE DIURESIS Vitals Vital Signs Date Time Temp Pulse Resp B/P (MAP) Pulse Ox O2 Delivery O2 Flow Rate FiO2 03/04/19 11:00 89 14 119/61 (80) 93 Ventilator 03/04/19 04:00 99.7 99.7 Lungs: Other (decrease bs) Cardiovascular: S1, S2, Other (decrease bs) Abdomen: Other (OBESE) Extremities: Other (venous stasis left, right BKA) Labs Laboratory Tests Test 03/02/19 12:08 03/02/19 14:20 03/03/19 03:10 03/03/19 06:31 Glucose (Fingerstick) 114 mg/dL (70-99) 131 mg/dL (70-99) Urine Collection Type Unknown Urine Color Yellow Urine Clarity Clear Urine pH 5.5 Urine Specific [place] 1.010 Urine Protein Negative mg/dL (NEG-TRACE) Urine Glucose (UA) Negative mg/dL (NEG) Urine Ketones (Stick) Negative mg/dL (NEG) Urine Blood Small (NEG) Urine Nitrite Negative (NEG) Urine Bilirubin Negative (NEG) Urine Urobilinogen Dipstick 0.2 mg/dL (0.2 mg/dL) Urine Leukocyte Esterase Trace (NEG) Urine RBC 20-40 /HPF (0-2) Urine WBC 1-4 /HPF (0-4) Urine Bacteria 0 /HPF (0-FEW) Urine Mucus Mod /LPF White Blood Count 5.7 x10^3/uL (4.0-11.0) Red Blood Count 4.45 x10^6/uL (4.30-5.70) Hemoglobin 13.5 g/dL (13.0-17.5) Hematocrit 42.0 % (39.0-53.0) Mean Corpuscular Volume 94 fL (79-100) Mean Corpuscular Hemoglobin 30 pg (25-35) Mean Corpuscular Hemoglobin Concent 32 g/dL (31-37) Red Cell Distribution Width 14.7 % (11.5-14.5) Platelet Count 187 x10^3/uL (140-400) Neutrophils (%) (Auto) 68 % (31-73) Lymphocytes (%) (Auto) 22 % (24-48) Monocytes (%) (Auto) 7 % (0-9) Eosinophils (%) (Auto) 3 % (0-3) Basophils (%) (Auto) 1 % (0-3) Neutrophils # (Auto) 3.8 x10^3uL (1.8-7.7) Lymphocytes # (Auto) 1.2 x10^3/uL (1.0-4.8) Monocytes # (Auto) 0.4 x10^3/uL (0.0-1.1) Eosinophils # (Auto) 0.2 x10^3/uL (0.0-0.7) Basophils # (Auto) 0.0 x10^3/uL (0.0-0.2) Sodium Level 148 mmol/L (136-145) Potassium Level 4.1 mmol/L (3.5-5.1) Chloride Level 109 mmol/L (98-107) Carbon Dioxide Level 30 mmol/L (21-32) Anion Gap 9 (6-14) Blood Urea Nitrogen 25 mg/dL (8-26) Creatinine 1.7 mg/dL (0.7-1.3) Estimated GFR (Cockcroft-Gault) 41.9 BUN/Creatinine Ratio 15 (6-20) Glucose Level 137 mg/dL (70-99) Calcium Level 8.6 mg/dL (8.5-10.1) Total Bilirubin 0.8 mg/dL (0.2-1.0) Aspartate Amino Transf (AST/SGOT) 25 U/L (15-37) Alanine Aminotransferase (ALT/SGPT) 20 U/L (16-63) Alkaline Phosphatase 91 U/L (46-116) Total Protein 7.1 g/dL (6.4-8.2) Albumin 2.4 g/dL (3.4-5.0) Albumin/Globulin Ratio 0.5 (1.0-1.7) Test 03/03/19 08:30 03/03/19 15:23 03/04/19 04:52 03/04/19 09:20 O2 Saturation 92 % (92-99) 93 % (92-99) Arterial Blood pH 7.43 (7.35-7.45) 7.48 (7.35-7.45) Arterial Blood pCO2 at Patient Temp 49 mmHg (35-46) 42 mmHg (35-46) Arterial Blood pO2 at Patient Temp 67 mmHg (75-108) 65 mmHg (75-108) Arterial Blood HCO3 31 mmol/L (21-28) 30 mmol/L (21-28) Arterial Blood Base Excess 6 mmol/L (-3-3) 6 mmol/L (-3-3) FiO2 80 80 Glucose (Fingerstick) 150 mg/dL (70-99) White Blood Count 5.1 x10^3/uL (4.0-11.0) Red Blood Count 4.33 x10^6/uL (4.30-5.70) Hemoglobin 13.0 g/dL (13.0-17.5) Hematocrit 41.1 % (39.0-53.0) Mean Corpuscular Volume 95 fL (79-100) Mean Corpuscular Hemoglobin 30 pg (25-35) Mean Corpuscular Hemoglobin Concent 32 g/dL (31-37) Red Cell Distribution Width 14.6 % (11.5-14.5) Platelet Count 187 x10^3/uL (140-400) Neutrophils (%) (Auto) 73 % (31-73) Lymphocytes (%) (Auto) 14 % (24-48) Monocytes (%) (Auto) 8 % (0-9) Eosinophils (%) (Auto) 4 % (0-3) Basophils (%) (Auto) 1 % (0-3) Neutrophils # (Auto) 3.8 x10^3uL (1.8-7.7) Lymphocytes # (Auto) 0.7 x10^3/uL (1.0-4.8) Monocytes # (Auto) 0.4 x10^3/uL (0.0-1.1) Eosinophils # (Auto) 0.2 x10^3/uL (0.0-0.7) Basophils # (Auto) 0.0 x10^3/uL (0.0-0.2) Sodium Level 146 mmol/L (136-145) Potassium Level 4.1 mmol/L (3.5-5.1) Chloride Level 106 mmol/L (98-107) Carbon Dioxide Level 33 mmol/L (21-32) Anion Gap 7 (6-14) Blood Urea Nitrogen 21 mg/dL (8-26) Creatinine 1.5 mg/dL (0.7-1.3) Estimated GFR (Cockcroft-Gault) 48.4 BUN/Creatinine Ratio 14 (6-20) Glucose Level 195 mg/dL (70-99) Calcium Level 8.5 mg/dL (8.5-10.1) Total Bilirubin 0.9 mg/dL (0.2-1.0) Aspartate Amino Transf (AST/SGOT) 22 U/L (15-37) Alanine Aminotransferase (ALT/SGPT) 21 U/L (16-63) Alkaline Phosphatase 83 U/L (46-116) Total Protein 6.7 g/dL (6.4-8.2) Albumin 2.4 g/dL (3.4-5.0) Albumin/Globulin Ratio 0.6 (1.0-1.7) Lipase 83 U/L (73-393) Procalcitonin 0.27 ng/mL (0.00-0.10) Laboratory Tests Test 03/03/19 15:23 03/04/19 04:52 03/04/19 09:20 Glucose (Fingerstick) 150 mg/dL (70-99) White Blood Count 5.1 x10^3/uL (4.0-11.0) Red Blood Count 4.33 x10^6/uL (4.30-5.70) Hemoglobin 13.0 g/dL (13.0-17.5) Hematocrit 41.1 % (39.0-53.0) Mean Corpuscular Volume 95 fL (79-100) Mean Corpuscular Hemoglobin 30 pg (25-35) Mean Corpuscular Hemoglobin Concent 32 g/dL (31-37) Red Cell Distribution Width 14.6 % (11.5-14.5) Platelet Count 187 x10^3/uL (140-400) Neutrophils (%) (Auto) 73 % (31-73) Lymphocytes (%) (Auto) 14 % (24-48) Monocytes (%) (Auto) 8 % (0-9) Eosinophils (%) (Auto) 4 % (0-3) Basophils (%) (Auto) 1 % (0-3) Neutrophils # (Auto) 3.8 x10^3uL (1.8-7.7) Lymphocytes # (Auto) 0.7 x10^3/uL (1.0-4.8) Monocytes # (Auto) 0.4 x10^3/uL (0.0-1.1) Eosinophils # (Auto) 0.2 x10^3/uL (0.0-0.7) Basophils # (Auto) 0.0 x10^3/uL (0.0-0.2) Sodium Level 146 mmol/L (136-145) Potassium Level 4.1 mmol/L (3.5-5.1) Chloride Level 106 mmol/L (98-107) Carbon Dioxide Level 33 mmol/L (21-32) Anion Gap 7 (6-14) Blood Urea Nitrogen 21 mg/dL (8-26) Creatinine 1.5 mg/dL (0.7-1.3) Estimated GFR (Cockcroft-Gault) 48.4 BUN/Creatinine Ratio 14 (6-20) Glucose Level 195 mg/dL (70-99) Calcium Level 8.5 mg/dL (8.5-10.1) Total Bilirubin 0.9 mg/dL (0.2-1.0) Aspartate Amino Transf (AST/SGOT) 22 U/L (15-37) Alanine Aminotransferase (ALT/SGPT) 21 U/L (16-63) Alkaline Phosphatase 83 U/L (46-116) Total Protein 6.7 g/dL (6.4-8.2) Albumin 2.4 g/dL (3.4-5.0) Albumin/Globulin Ratio 0.6 (1.0-1.7) Lipase 83 U/L (73-393) Procalcitonin 0.27 ng/mL (0.00-0.10) O2 Saturation 93 % (92-99) Arterial Blood pH 7.48 (7.35-7.45) Arterial Blood pCO2 at Patient Temp 42 mmHg (35-46) Arterial Blood pO2 at Patient Temp 65 mmHg (75-108) Arterial Blood HCO3 30 mmol/L (21-28) Arterial Blood Base Excess 6 mmol/L (-3-3) FiO2 80 Medications Active Scripts Medications Dose Route/Sig Max Daily Dose Days Date Category Proair Hfa Inhaler (Albuterol Sulfate) 8.5 Gm Hfa.aer.ad 1 Puff INH PRN Q6HRS PRN 02/27/19 Reported Lantus Solostar (Insulin Glargine,Hum.rec.anlog) 100 Unit/1 Ml Insuln.pen 20 Unit SQ QHS 02/27/19 Reported Humalog (Insulin Lispro) 100 Unit/1 Ml Cartridge 6 Unit SQ TIDWMEALS 02/27/19 Reported Doxazosin Mesylate 2 Mg Tablet 2 Mg PO DAILY 02/27/19 Reported Omeprazole 40 Mg Capsule.dr 40 Mg PO DAILY 02/27/19 Reported Amlodipine Besylate 10 Mg Tablet 10 Mg PO DAILY 02/27/19 Reported Atorvastatin Calcium 20 Mg Tablet 20 Mg PO DAILY 02/27/19 Reported Atenolol 50 Mg Tablet 50 Mg PO DAILY 02/27/19 Reported Losartan Potassium 100 Mg Tablet 100 Mg PO DAILY 02/27/19 Reported Aspirin 81 Mg Tab.chew 81 Mg PO DAILY 02/27/19 Reported Glyburide 5 Mg Tablet 1 Tab PO BID 11/09/16 Reported Comments CXR 03/04 persistent bilateral infiltrates Impression . 1. Acute hypoxemic /hypercapnic respiratory failure. 2. Suspected sepsis./ ARDS clinically 3. In-house cardiopulmonary arrest. 4. Normal EF / mild Pulmonary HTN 5. Acute on chronic right-sided heart failure. 6. Possible pneumonia. 7. Morbid obesity. 8. Diabetes. 9. ANASARCA <Conclusion>ECHO The left ventricular systolic function is normal. The ejection fraction is 60-65%. There is normal LV segmental wall motion. Transmitral Doppler flow pattern is Grade I-abnormal relaxation pattern. Trace tricuspid regurgitation. Estimated PAP 33-38 mmHg. There is no evidence of significant pericardial effusion. VENOUS 02/28 Impression: 1. There is no evidence of deep venous thrombosis from the bilateral common femoral to popliteal veins. 2. There is nonspecific right groin lymph node. Plan . AC MODE 80% PEEP of 10 NOT READY FOR ANY WEANING WILL CONTINUE SUPPORT ANITBX PER ID EXTRA Diuresis 1. Continue support with assist control ventilation, 2. Empiric antibiotics. 3. Bilateral venous Dopplers of lower extremities.NEG 4. DVT and GI prophylaxis. 5. Follow Nephrology, Cardiology.rec 6. Enteral nutrition 7. Prognosis guarded 8. Follow cxr d/w RN/ RT and patients sister in Ca cct 30 min ALEJANDRINA WILBURN MD Mar 04, 2019 11:39
[2019-03-04] MEDS: ACETAMINOPHEN 650 MG/20.3 ML SOLUTION. PEG PRN (11:59)
--- NOTE | 2019-03-04 12:09 | PDOC ---
Renal-Progress Notes Subjective Notes Notes REMAINS INTUBATED History of Present Illness Hx of present illness STABLE Vitals Vitals Vital Signs Date Time Temp Pulse Resp B/P (MAP) Pulse Ox O2 Delivery O2 Flow Rate FiO2 03/04/19 11:15 14 80 Ventilator 03/04/19 11:00 89 119/61 (80) 03/04/19 04:00 99.7 99.7 Weight Weight [ ] Stability Assess. Stability Assess.: other (intubated ) I.O. Intake and Output Intake and Output 03/04/19 07:00 Intake Total 4528.82 ml Output Total 4990 ml Balance -461.18 ml IV Total 1182.82 ml Tube Feeding 2346 ml Blood Product IV Normal Saline Flush 700 ml Other 300 ml Output Urine Total 4990 ml Gastric Drainage Total 0 ml Labs Labs Laboratory Tests Test 03/03/19 15:23 03/04/19 04:52 03/04/19 09:20 Glucose (Fingerstick) 150 mg/dL (70-99) White Blood Count 5.1 x10^3/uL (4.0-11.0) Red Blood Count 4.33 x10^6/uL (4.30-5.70) Hemoglobin 13.0 g/dL (13.0-17.5) Hematocrit 41.1 % (39.0-53.0) Mean Corpuscular Volume 95 fL (79-100) Mean Corpuscular Hemoglobin 30 pg (25-35) Mean Corpuscular Hemoglobin Concent 32 g/dL (31-37) Red Cell Distribution Width 14.6 % (11.5-14.5) Platelet Count 187 x10^3/uL (140-400) Neutrophils (%) (Auto) 73 % (31-73) Lymphocytes (%) (Auto) 14 % (24-48) Monocytes (%) (Auto) 8 % (0-9) Eosinophils (%) (Auto) 4 % (0-3) Basophils (%) (Auto) 1 % (0-3) Neutrophils # (Auto) 3.8 x10^3uL (1.8-7.7) Lymphocytes # (Auto) 0.7 x10^3/uL (1.0-4.8) Monocytes # (Auto) 0.4 x10^3/uL (0.0-1.1) Eosinophils # (Auto) 0.2 x10^3/uL (0.0-0.7) Basophils # (Auto) 0.0 x10^3/uL (0.0-0.2) Sodium Level 146 mmol/L (136-145) Potassium Level 4.1 mmol/L (3.5-5.1) Chloride Level 106 mmol/L (98-107) Carbon Dioxide Level 33 mmol/L (21-32) Anion Gap 7 (6-14) Blood Urea Nitrogen 21 mg/dL (8-26) Creatinine 1.5 mg/dL (0.7-1.3) Estimated GFR (Cockcroft-Gault) 48.4 BUN/Creatinine Ratio 14 (6-20) Glucose Level 195 mg/dL (70-99) Calcium Level 8.5 mg/dL (8.5-10.1) Total Bilirubin 0.9 mg/dL (0.2-1.0) Aspartate Amino Transf (AST/SGOT) 22 U/L (15-37) Alanine Aminotransferase (ALT/SGPT) 21 U/L (16-63) Alkaline Phosphatase 83 U/L (46-116) Total Protein 6.7 g/dL (6.4-8.2) Albumin 2.4 g/dL (3.4-5.0) Albumin/Globulin Ratio 0.6 (1.0-1.7) Lipase 83 U/L (73-393) Procalcitonin 0.27 ng/mL (0.00-0.10) O2 Saturation 93 % (92-99) Arterial Blood pH 7.48 (7.35-7.45) Arterial Blood pCO2 at Patient Temp 42 mmHg (35-46) Arterial Blood pO2 at Patient Temp 65 mmHg (75-108) Arterial Blood HCO3 30 mmol/L (21-28) Arterial Blood Base Excess 6 mmol/L (-3-3) FiO2 80 Micro Micro Microbiology 02/28/19 Blood Culture - Preliminary, Resulted NO GROWTH AFTER 4 DAYS 03/02/19 Urine Culture - Final, Complete 03/02/19 Urine Culture Result 1 (LUCIO) - Final, Complete Review of Systems Constitutional: yes: unresponsive, other (INTUBATED AND SEDATED) Physical Exam General Appearance: other (SEDATED) Skin: warm Respiratory: decreased breath sounds Heart: S1S2 Abdomen: soft, N/T, bowel sounds present Genitourinary: bladder flat Extremities: pulses present Neurology: other (sedated) Assessment Assessment IMP LEONARD-BETTER WITH CR DOWN TO 1.5 ANASARCA-PERSISTS BUT BETTER HYPERNATREMIA ACUTE HYPERCARBIC RESP FAILURE-FIO2 80% SCROTAL EDEMA DUE TO ANASARCA RIGHT RENAL MASS PROB PNEUMONIA PROB SEPSIS PROB RIGHT SIDED CHF WITH DIASTOLIC DYSFUNCTION MORBID OBESITY MALNUTRITION PLAN ANTIBIOTICS VENT SUPPORT RESUME LASIX EVAL RENAL MASS LATER CONT TF D/W CRITICAL CARE WILL FOLLOW DEEPTHI MOYA MD Mar 04, 2019 12:09
[2019-03-04 14:39] LABS: PROTHROMBIN TIME PATIENT 14.9 SEC (11.7-14.0)
[2019-03-04 14:53] LABS: CALCIUM 8.4 mg/dL (8.5-10.1); CREATININE 1.5 mg/dL (0.7-1.3); GFR 48.4; POTASSIUM 4.5 mmol/L (3.5-5.1)
[2019-03-04 14:58] LABS: ALBUMIN 2.2 g/dL (3.4-5.0); ALBUMIN/GLOBULIN RATIO 0.5 (1.0-1.7); MAGNESIUM 1.9 mg/dL (1.8-2.4); TOTAL BILIRUBIN 0.8 mg/dL (0.2-1.0); TOTAL PROTEIN 6.4 g/dL (6.4-8.2)
--- NOTE | 2019-03-04 15:21 | RAD ---
Portable chest, 03/04/2019, 2:56 PM: HISTORY: Check central line placement Comparison is made to the study of earlier the same day. The patient is rotated to the left. There has been interval insertion of a right jugular central venous catheter extending into the superior aspect of the right atrium. The NG tube and ET tube remain in place in satisfactory positions. The heart is enlarged. There are moderate ongoing bilateral pulmonary infiltrates and pleural effusions, probably unchanged when considering differences in patient positioning. There is no evidence of pneumothorax. IMPRESSION: 1. Interval insertion of a right jugular central venous catheter extending into the superior vena cava. 2. Persistent bilateral pulmonary infiltrates and pleural effusions. Electronically signed by: Moose Astorga MD (03/04/2019 3:18 PM) [facility]
--- NOTE | 2019-03-04 15:28 | RAD ---
Procedure: Ultrasound-guided placement of right internal jugular central venous catheter03/04/2019 3:24 PM Clinical Indication: multiple iv meds. Patient critically ill with poor peripheral access Discussion: The risks and benefits of the procedure were discussed the patient and/or their insurance claims representative. Informed consent was obtained. A timeout procedure was performed. All elements of maximal sterile barrier technique including the use of a cap, mask, sterile gown, sterile gloves, large sterile sheet, appropriate hand hygiene, and 2% chlorhexidine for cutaneous antisepsis (or acceptable alternative antiseptic per current guidelines) were followed for this procedure. The patient was prepped and draped in the usual sterile fashion. Ultrasound interrogation of the right neck revealed patency and compressibility of the right internal jugular vein. A 21-gauge micropuncture was then used to gain access to this vein under ultrasound guidance. A hard copy ultrasound image was recorded. A guidewire was advanced centrally. 5 Greek sheath was placed. Over a wire following dilatation, a triple-lumen central venous catheter was advanced centrally. Catheter was found to flush and aspirate normally. Follow-up chest radiograph demonstrates tip at the cavoatrial junction. Catheter secured in place and a sterile dressing was applied. No immediate complications were identified. Impression: Successful ultrasound-guided placement of right internal jugular triple-lumen central venous catheter
[2019-03-04] MEDS: MICAFUNGIN 100 MG in IV DEXTROSE 5% 100ML 100 ML IV SCH (15:53)
--- NOTE | 2019-03-04 16:19 | NUR ---
SS following up with discharge planning. Referral was phoned and faxed to [facility], ; fax [phone]. SS will await acceptance decision and insurance determination from [facility] and will proceed accordingly.
--- NOTE | 2019-03-04 17:15 | NUR ---
RN notified Dr. Vinson with morning rounds of pupil sizes. No orders received at this time. RR changed from AC [address] to [address] Flores on unit. Notified of patient's irregular HR, tachycardic at times. No orders received. Will continue to monitor.
--- NOTE | 2019-03-04 18:00 | PDOC ---
PROGRESS NOTES Chief Complaint Chief Complaint Assessment/Plan ACUTE RESP ARREST POST CODE ON FLOOR 02/27 Acute respiratory failure secondary to congestive heart failure, most probably acute on chronic diastolic. s/p intubation. Myocardial infarction ruled out. Hypernatremia secondary to severe dehydration will need to provide water flushes in order to correct electrolyte disturbance. 3 weeks of bilateral general scrotal swelling and tenderness. +dyspnea, abd swelling, leg swelling. POA, Dm2 obesity, extreme, morbid hx RLE BKA RLE stump with chronic wound. No erythema/warmth left foot nail onychomycosis needs attention when more clinically stable Acute renal failure ATN Renal CONSULT 3.1-1.8 chronic venous insuff left lower leg nonspecific perinephric stranding with slight asymmetric stranding adjacent to the left renal pelvis. Findings may be due to chronic kidney disease, though ascending urinary tract infection is not excluded. Bilateral lower lobe consolidation concerning for multifocal pneumonia aspiration not excluded. Right renal hypodensity measuring 2.5 cm is incompletely evaluated on noncontrast examination. Follow-up MRI or CT abdomen and pelvis renal protocol with contrast is recommended for further evaluation. Anasarca. bilateral external iliac lymphadenopathy, may be reactive, though follow-up CT abdomen and pelvis in 3 months is recommended to assess for stability/resolution. Nonobstructive left nephrolithiasis. Coronary artery calcifications. The left ventricular systolic function is normal.ejection fraction is 60-65% .normal LV segmental wall motion. Transmitral Doppler flow pattern is Grade I-abnormal relaxation pattern. Trace tricuspid regurgitation. Estimated PAP 33-38 mmHg. PLAN INTUBATED // IN ICU VENT SUPPORT PULM CONSULT CARDIOLOGY CONSULT UROLOGY CONSULT reviewed no intervention needed except for elevation and diuresis ID CONSULT IV Meropenem cont Zyvox - Avoid Vanc with LEONARD IV Micafungin lactic acid/BNP follow ECHO noted PROCALCITONIN with normal results. CT ABD/ PELVIS reviewed 1. Mild nonspecific perinephric stranding with slight asymmetric stranding adjacent to the left renal pelvis. Findings may be due to chronic kidney disease, though ascending urinary tract infection is not excluded. 2. Bilateral lower lobe consolidation concerning for multifocal pneumonia or pneumonitis with aspiration not excluded. 3. Right renal hypodensity measuring 2.5 cm is incompletely evaluated on noncontrast examination. Follow-up MRI or CT abdomen and pelvis renal protocol with contrast is recommended for further evaluation. 4. Anasarca. 5. Mild bilateral external iliac lymphadenopathy, may be reactive, though follow-up CT abdomen and pelvis in 3 months is recommended to assess for stability/resolution. 6. Nonobstructive left nephrolithiasis. 7. Coronary artery calcifications. History of Present Illness History of Present Illness Patient with no acute events reported overnight. Continues to be critically ill but seems to be stable at the present time. Discussed with nursing staff at bedside Vitals Vitals Vital Signs Date Time Temp Pulse Resp B/P (MAP) Pulse Ox O2 Delivery O2 Flow Rate FiO2 03/04/19 16:39 96 Ventilator 03/04/19 14:54 14 03/04/19 14:00 91 110/53 (72) 03/04/19 12:45 98.4 98.4 Physical Exam Physical Exam GENERAL: Sedated and intubated. HEENT: pupils equal. ETT. OGT NECK: Supple. LUNGS: Decreased in bases HEART: S1, S2. ABDOMEN: Distended with decreased bowel sounds. Less firm GENITOURINARY: He has 3-4+ scrotal swelling with some erythema. No gross warmth. EXTREMITIES: No clubbing, cyanosis with 2 + edema. Generalized anasarca. RLE stump with chronic wound. No erythema/fluctuance/warmth SKIN: Warm to touch without signs of generalized rash. 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: Unresponsive/sedated PIV General: Other (SEDATED) Heart: Regular rate, Normal S1, Normal S2, No murmurs, Gallops Lungs: Other (decrease bs) Abdomen: Soft, No tenderness, Other (VERY OBESE) Extremities: No cyanosis, Other (ANASARCA) Skin: Other (scale, lower leg ) Labs LABS Laboratory Tests Test 03/04/19 04:52 03/04/19 09:20 03/04/19 14:20 White Blood Count 5.1 x10^3/uL (4.0-11.0) Red Blood Count 4.33 x10^6/uL (4.30-5.70) Hemoglobin 13.0 g/dL (13.0-17.5) Hematocrit 41.1 % (39.0-53.0) Mean Corpuscular Volume 95 fL (79-100) Mean Corpuscular Hemoglobin 30 pg (25-35) Mean Corpuscular Hemoglobin Concent 32 g/dL (31-37) Red Cell Distribution Width 14.6 % (11.5-14.5) Platelet Count 187 x10^3/uL (140-400) Neutrophils (%) (Auto) 73 % (31-73) Lymphocytes (%) (Auto) 14 % (24-48) Monocytes (%) (Auto) 8 % (0-9) Eosinophils (%) (Auto) 4 % (0-3) Basophils (%) (Auto) 1 % (0-3) Neutrophils # (Auto) 3.8 x10^3uL (1.8-7.7) Lymphocytes # (Auto) 0.7 x10^3/uL (1.0-4.8) Monocytes # (Auto) 0.4 x10^3/uL (0.0-1.1) Eosinophils # (Auto) 0.2 x10^3/uL (0.0-0.7) Basophils # (Auto) 0.0 x10^3/uL (0.0-0.2) Sodium Level 146 mmol/L (136-145) 146 mmol/L (136-145) Potassium Level 4.1 mmol/L (3.5-5.1) 4.5 mmol/L (3.5-5.1) Chloride Level 106 mmol/L (98-107) 107 mmol/L (98-107) Carbon Dioxide Level 33 mmol/L (21-32) 33 mmol/L (21-32) Anion Gap 7 (6-14) 6 (6-14) Blood Urea Nitrogen 21 mg/dL (8-26) 22 mg/dL (8-26) Creatinine 1.5 mg/dL (0.7-1.3) 1.5 mg/dL (0.7-1.3) Estimated GFR (Cockcroft-Gault) 48.4 48.4 BUN/Creatinine Ratio 14 (6-20) 15 (6-20) Glucose Level 195 mg/dL (70-99) 188 mg/dL (70-99) Calcium Level 8.5 mg/dL (8.5-10.1) 8.4 mg/dL (8.5-10.1) Total Bilirubin 0.9 mg/dL (0.2-1.0) 0.8 mg/dL (0.2-1.0) Aspartate Amino Transf (AST/SGOT) 22 U/L (15-37) 21 U/L (15-37) Alanine Aminotransferase (ALT/SGPT) 21 U/L (16-63) 22 U/L (16-63) Alkaline Phosphatase 83 U/L (46-116) 77 U/L (46-116) Total Protein 6.7 g/dL (6.4-8.2) 6.4 g/dL (6.4-8.2) Albumin 2.4 g/dL (3.4-5.0) 2.2 g/dL (3.4-5.0) Albumin/Globulin Ratio 0.6 (1.0-1.7) 0.5 (1.0-1.7) Lipase 83 U/L (73-393) Procalcitonin 0.27 ng/mL (0.00-0.10) O2 Saturation 93 % (92-99) Arterial Blood pH 7.48 (7.35-7.45) Arterial Blood pCO2 at Patient Temp 42 mmHg (35-46) Arterial Blood pO2 at Patient Temp 65 mmHg (75-108) Arterial Blood HCO3 30 mmol/L (21-28) Arterial Blood Base Excess 6 mmol/L (-3-3) FiO2 80 Prothrombin Time 14.9 SEC (11.7-14.0) Prothromb Time International Ratio 1.2 (0.8-1.1) Magnesium Level 1.9 mg/dL (1.8-2.4) Review of Systems Review of Systems sedated on mechanical ventilation Assessment and Plan Assessmemt and Plan Problems Medical Problems: (1) Acute renal failure Status: Acute (2) Edema Status: Acute (3) Shortness of breath Status: Acute Comment Review of Relevant I have reviewed the following items pascual (where applicable) has been applied. Labs Laboratory Tests Test 03/03/19 03:10 03/03/19 06:31 03/03/19 08:30 03/03/19 15:23 White Blood Count 5.7 x10^3/uL (4.0-11.0) Red Blood Count 4.45 x10^6/uL (4.30-5.70) Hemoglobin 13.5 g/dL (13.0-17.5) Hematocrit 42.0 % (39.0-53.0) Mean Corpuscular Volume 94 fL (79-100) Mean Corpuscular Hemoglobin 30 pg (25-35) Mean Corpuscular Hemoglobin Concent 32 g/dL (31-37) Red Cell Distribution Width 14.7 % (11.5-14.5) Platelet Count 187 x10^3/uL (140-400) Neutrophils (%) (Auto) 68 % (31-73) Lymphocytes (%) (Auto) 22 % (24-48) Monocytes (%) (Auto) 7 % (0-9) Eosinophils (%) (Auto) 3 % (0-3) Basophils (%) (Auto) 1 % (0-3) Neutrophils # (Auto) 3.8 x10^3uL (1.8-7.7) Lymphocytes # (Auto) 1.2 x10^3/uL (1.0-4.8) Monocytes # (Auto) 0.4 x10^3/uL (0.0-1.1) Eosinophils # (Auto) 0.2 x10^3/uL (0.0-0.7) Basophils # (Auto) 0.0 x10^3/uL (0.0-0.2) Sodium Level 148 mmol/L (136-145) Potassium Level 4.1 mmol/L (3.5-5.1) Chloride Level 109 mmol/L (98-107) Carbon Dioxide Level 30 mmol/L (21-32) Anion Gap 9 (6-14) Blood Urea Nitrogen 25 mg/dL (8-26) Creatinine 1.7 mg/dL (0.7-1.3) Estimated GFR (Cockcroft-Gault) 41.9 BUN/Creatinine Ratio 15 (6-20) Glucose Level 137 mg/dL (70-99) Calcium Level 8.6 mg/dL (8.5-10.1) Total Bilirubin 0.8 mg/dL (0.2-1.0) Aspartate Amino Transf (AST/SGOT) 25 U/L (15-37) Alanine Aminotransferase (ALT/SGPT) 20 U/L (16-63) Alkaline Phosphatase 91 U/L (46-116) Total Protein 7.1 g/dL (6.4-8.2) Albumin 2.4 g/dL (3.4-5.0) Albumin/Globulin Ratio 0.5 (1.0-1.7) Glucose (Fingerstick) 131 mg/dL (70-99) 150 mg/dL (70-99) O2 Saturation 92 % (92-99) Arterial Blood pH 7.43 (7.35-7.45) Arterial Blood pCO2 at Patient Temp 49 mmHg (35-46) Arterial Blood pO2 at Patient Temp 67 mmHg (75-108) Arterial Blood HCO3 31 mmol/L (21-28) Arterial Blood Base Excess 6 mmol/L (-3-3) FiO2 80 Test 03/04/19 04:52 03/04/19 09:20 03/04/19 14:20 White Blood Count 5.1 x10^3/uL (4.0-11.0) Red Blood Count 4.33 x10^6/uL (4.30-5.70) Hemoglobin 13.0 g/dL (13.0-17.5) Hematocrit 41.1 % (39.0-53.0) Mean Corpuscular Volume 95 fL (79-100) Mean Corpuscular Hemoglobin 30 pg (25-35) Mean Corpuscular Hemoglobin Concent 32 g/dL (31-37) Red Cell Distribution Width 14.6 % (11.5-14.5) Platelet Count 187 x10^3/uL (140-400) Neutrophils (%) (Auto) 73 % (31-73) Lymphocytes (%) (Auto) 14 % (24-48) Monocytes (%) (Auto) 8 % (0-9) Eosinophils (%) (Auto) 4 % (0-3) Basophils (%) (Auto) 1 % (0-3) Neutrophils # (Auto) 3.8 x10^3uL (1.8-7.7) Lymphocytes # (Auto) 0.7 x10^3/uL (1.0-4.8) Monocytes # (Auto) 0.4 x10^3/uL (0.0-1.1) Eosinophils # (Auto) 0.2 x10^3/uL (0.0-0.7) Basophils # (Auto) 0.0 x10^3/uL (0.0-0.2) Sodium Level 146 mmol/L (136-145) 146 mmol/L (136-145) Potassium Level 4.1 mmol/L (3.5-5.1) 4.5 mmol/L (3.5-5.1) Chloride Level 106 mmol/L (98-107) 107 mmol/L (98-107) Carbon Dioxide Level 33 mmol/L (21-32) 33 mmol/L (21-32) Anion Gap 7 (6-14) 6 (6-14) Blood Urea Nitrogen 21 mg/dL (8-26) 22 mg/dL (8-26) Creatinine 1.5 mg/dL (0.7-1.3) 1.5 mg/dL (0.7-1.3) Estimated GFR (Cockcroft-Gault) 48.4 48.4 BUN/Creatinine Ratio 14 (6-20) 15 (6-20) Glucose Level 195 mg/dL (70-99) 188 mg/dL (70-99) Calcium Level 8.5 mg/dL (8.5-10.1) 8.4 mg/dL (8.5-10.1) Total Bilirubin 0.9 mg/dL (0.2-1.0) 0.8 mg/dL (0.2-1.0) Aspartate Amino Transf (AST/SGOT) 22 U/L (15-37) 21 U/L (15-37) Alanine Aminotransferase (ALT/SGPT) 21 U/L (16-63) 22 U/L (16-63) Alkaline Phosphatase 83 U/L (46-116) 77 U/L (46-116) Total Protein 6.7 g/dL (6.4-8.2) 6.4 g/dL (6.4-8.2) Albumin 2.4 g/dL (3.4-5.0) 2.2 g/dL (3.4-5.0) Albumin/Globulin Ratio 0.6 (1.0-1.7) 0.5 (1.0-1.7) Lipase 83 U/L (73-393) Procalcitonin 0.27 ng/mL (0.00-0.10) O2 Saturation 93 % (92-99) Arterial Blood pH 7.48 (7.35-7.45) Arterial Blood pCO2 at Patient Temp 42 mmHg (35-46) Arterial Blood pO2 at Patient Temp 65 mmHg (75-108) Arterial Blood HCO3 30 mmol/L (21-28) Arterial Blood Base Excess 6 mmol/L (-3-3) FiO2 80 Prothrombin Time 14.9 SEC (11.7-14.0) Prothromb Time International Ratio 1.2 (0.8-1.1) Magnesium Level 1.9 mg/dL (1.8-2.4) Laboratory Tests Test 03/04/19 04:52 03/04/19 09:20 03/04/19 14:20 White Blood Count 5.1 x10^3/uL (4.0-11.0) Red Blood Count 4.33 x10^6/uL (4.30-5.70) Hemoglobin 13.0 g/dL (13.0-17.5) Hematocrit 41.1 % (39.0-53.0) Mean Corpuscular Volume 95 fL (79-100) Mean Corpuscular Hemoglobin 30 pg (25-35) Mean Corpuscular Hemoglobin Concent 32 g/dL (31-37) Red Cell Distribution Width 14.6 % (11.5-14.5) Platelet Count 187 x10^3/uL (140-400) Neutrophils (%) (Auto) 73 % (31-73) Lymphocytes (%) (Auto) 14 % (24-48) Monocytes (%) (Auto) 8 % (0-9) Eosinophils (%) (Auto) 4 % (0-3) Basophils (%) (Auto) 1 % (0-3) Neutrophils # (Auto) 3.8 x10^3uL (1.8-7.7) Lymphocytes # (Auto) 0.7 x10^3/uL (1.0-4.8) Monocytes # (Auto) 0.4 x10^3/uL (0.0-1.1) Eosinophils # (Auto) 0.2 x10^3/uL (0.0-0.7) Basophils # (Auto) 0.0 x10^3/uL (0.0-0.2) Sodium Level 146 mmol/L (136-145) 146 mmol/L (136-145) Potassium Level 4.1 mmol/L (3.5-5.1) 4.5 mmol/L (3.5-5.1) Chloride Level 106 mmol/L (98-107) 107 mmol/L (98-107) Carbon Dioxide Level 33 mmol/L (21-32) 33 mmol/L (21-32) Anion Gap 7 (6-14) 6 (6-14) Blood Urea Nitrogen 21 mg/dL (8-26) 22 mg/dL (8-26) Creatinine 1.5 mg/dL (0.7-1.3) 1.5 mg/dL (0.7-1.3) Estimated GFR (Cockcroft-Gault) 48.4 48.4 BUN/Creatinine Ratio 14 (6-20) 15 (6-20) Glucose Level 195 mg/dL (70-99) 188 mg/dL (70-99) Calcium Level 8.5 mg/dL (8.5-10.1) 8.4 mg/dL (8.5-10.1) Total Bilirubin 0.9 mg/dL (0.2-1.0) 0.8 mg/dL (0.2-1.0) Aspartate Amino Transf (AST/SGOT) 22 U/L (15-37) 21 U/L (15-37) Alanine Aminotransferase (ALT/SGPT) 21 U/L (16-63) 22 U/L (16-63) Alkaline Phosphatase 83 U/L (46-116) 77 U/L (46-116) Total Protein 6.7 g/dL (6.4-8.2) 6.4 g/dL (6.4-8.2) Albumin 2.4 g/dL (3.4-5.0) 2.2 g/dL (3.4-5.0) Albumin/Globulin Ratio 0.6 (1.0-1.7) 0.5 (1.0-1.7) Lipase 83 U/L (73-393) Procalcitonin 0.27 ng/mL (0.00-0.10) O2 Saturation 93 % (92-99) Arterial Blood pH 7.48 (7.35-7.45) Arterial Blood pCO2 at Patient Temp 42 mmHg (35-46) Arterial Blood pO2 at Patient Temp 65 mmHg (75-108) Arterial Blood HCO3 30 mmol/L (21-28) Arterial Blood Base Excess 6 mmol/L (-3-3) FiO2 80 Prothrombin Time 14.9 SEC (11.7-14.0) Prothromb Time International Ratio 1.2 (0.8-1.1) Magnesium Level 1.9 mg/dL (1.8-2.4) Microbiology 02/28/19 Blood Culture - Preliminary, Resulted NO GROWTH AFTER 4 DAYS 03/02/19 Urine Culture - Final, Complete 03/02/19 Urine Culture Result 1 (LUCIO) - Final, Complete Medications Current Medications Ondansetron HCl (Zofran) 4 mg PRN Q8HRS PRN IV NAUSEA/VOMITING; Start 02/27/19 at 16:45; Stop 02/28/19 at 16:44; Status DC Morphine Sulfate (Morphine Sulfate) 2 mg PRN Q2HR PRN IV PAIN; Start 02/27/19 at 16:45; Stop 02/28/19 at 16:44; Status DC Acetaminophen (Tylenol) 650 mg PRN Q4HRS PRN PO FEVER Last administered on 02/27at 21:06; Start 02/27/19 at 16:45; Stop 02/28/19 at 16:44; Status DC Dextrose (Dextrose 50%-Water Syringe) 12.5 gm PRN Q15MIN PRN IV SEE COMMENTS; Start 02/27/19 at 16:45 Heparin Sodium (Porcine) (Heparin Sodium) 5,000 unit Q8HRS SQ Last administered on 03/04/19at 15:27; Start 02/27/19 at 17:00 Lorazepam (Ativan) 1 mg PRN Q8HRS PRN IV ANXIETY / AGITATION Last administered on 03/03/19at 20:00; Start 02/28/19 at 02:45 Etomidate (Amidate) 20 mg STK-MED ONCE IV ; Start 02/28/19 at 06:59; Stop at 07:00; Status DC Rocuronium [place] (Zemuron) 50 mg STK-MED ONCE .ROUTE ; Start 02/28/19 at 07:00 ; Stop 02/28/19 at 09:42; Status DC Dopamine HCl/ Dextrose 250 ml @ 12.266 mls/ hr CONT PRN IV SEE I/O RECORD Last administered on 02/28/19at 08:06; Start 02/28/19 at 07:15 Fentanyl Citrate 30 ml @ 0 mls/hr CONT PRN IV SEE PROTOCOL; Start 02/28/19 at 07:15; Stop 02/28/19 at 07:59; Status DC Propofol 100 ml @ 0 mls/hr CONT PRN IV SEE PROTOCOL; Start 02/28/19 at 07:15; Stop 02/28/19 at 07:59; Status DC Fentanyl Citrate (Fentanyl 2ml Vial) 25 mcg PRN Q1HR PRN IV SEE COMMENTS; Start 02/28/19 at 07:15; Stop 02/28/19 at 07:59; Status DC Fentanyl Citrate (Fentanyl 2ml Vial) 50 mcg PRN Q1HR PRN IV SEE COMMENTS; Start 02/28/19 at 07:15; Stop 02/28/19 at 07:59; Status DC Midazolam HCl 100 ml @ 0 mls/hr CONT PRN IV SEE PROTOCOL Last administered on at 09:41; Start 02/28/19 at 07:15 Sodium Chloride 1,000 ml @ 1,000 mls/hr Q1H IV Last administered on 02/28/19at 07:32; Start 02/28/19 at 07:32; Stop 02/28/19 at 10:09; Status DC Fentanyl Citrate (Fentanyl 2ml Vial) 25 mcg PRN Q30MIN PRN IV see comments; Start 02/28/19 at 07:45; Stop 02/28/19 at 09:42; Status DC Lorazepam (Ativan) 1 mg PRN Q30MIN PRN IV SEDATION; Start 02/28/19 at 07:45; Stop 02/28/19 at 09:42; Status DC Fentanyl Citrate 30 ml @ 2.5 mls/hr CONT PRN PRN IV SEE I/O RECORD Last administered on 03/04/19at 14:54; Start 02/28/19 at 07:45 Propofol 100 ml @ 0 mls/hr CONT PRN IV SEE I/O RECORD; Start 02/28/19 at 07:45 Vecuronium [place] (Norcuron Bolus) 10 mg PRN Q30MIN PRN IV SHIVERING; Start at 07:45; Stop 02/28/19 at 09:42; Status DC Meperidine HCl (Demerol) 12.5 mg PRN Q30MIN PRN IV SHIVERING; Start 02/28/19 at 07:45; Stop 02/28/19 at 09:42; Status DC Multi-Ingred Cream/Lotion/Oil/ Oint (Artificial Tears Eye Ointment) 1 jennifer PRN Q6HRS PRN OU 0.5 INCH FOR DRY EYE; Start 02/28/19 at 07:45; Stop 02/28/19 at 09 :42; Status DC Famotidine (Pepcid Vial) 20 mg BID IVP Last administered on 02/28/19at 11:03; Start 02/28/19 at 09:00; Stop 02/28/19 at 14:25; Status DC Aspirin (Aspirin) 300 mg DAILY ID ; Start 02/28/19 at 09:00; Stop 02/28/19 at 09 :42; Status DC Sodium Chloride (Normal Saline Flush) 3 ml QSHIFT PRN IV AFTER MEDS AND BLOOD DRAWS; Start 02/28/19 at 07:45 Acetaminophen (Tylenol) 650 mg Q6HRS NG ; Start 02/28/19 at 12:00; Stop at 12:00; Status DC Acetaminophen (Tylenol Supp) 650 mg PRN Q6HRS PRN ID MILD PAIN / TEMP; Start at 07:45; Stop 03/01/19 at 07:45; Status DC Acetaminophen (Tylenol) 650 mg PRN Q6HRS PRN NG MILD PAIN / TEMP; Start at 07:45; Stop 03/01/19 at 07:45; Status DC Info (Icu Electrolyte Protocol) 1 ea DAILY PRN MC PER PROTOCOL; Start 03/02/19 at 07:45; Stop 03/02/19 at 07:45; Status DC Furosemide (Lasix) 60 mg 1X ONCE IVP Last administered on 02/28/19at 08:30; Start 02/28/19 at 08:30; Stop 02/28/19 at 08:31; Status DC Ceftriaxone Sodium (Rocephin) 1 gm Q24H IVP Last administered on 02/28/19at 11: 03; Start 02/28/19 at 11:00; Stop 02/28/19 at 11:18; Status DC Calcium Chloride 1000 mg/Dextrose 60 ml @ 120 mls/hr 1X ONCE IV Last administered on 02/28/19at 11:03; Start 02/28/19 at 10:30; Stop 02/28/19 at 10:59 ; Status DC Meropenem 500 mg/ Sodium Chloride 50 ml @ 100 mls/hr Q8HRS IV Last administered on 03/03/19at 06:24; Start 02/28/19 at 14:00; Stop 03/03/19 at 07:04; Status DC Linezolid/Dextrose 300 ml @ 300 mls/hr Q12HR IV Last administered on 03/03/19 20:00; Start 02/28/19 at 11:30; Stop 03/04/19 at 08:55; Status DC Micafungin Sodium 100 mg/Dextrose 100 ml @ 100 mls/hr Q24H IV Last administered on 03/04/19 15:53; Start 02/28/19 at 12:00 Furosemide (Lasix) 40 mg [id number] IVP Last administered on 03/02/19 14:06; Start 02/28/19 at 14:00; Stop 03/02/19 at 17:02; Status DC Famotidine (Pepcid Vial) 20 mg QHS IVP Last administered on 03/01/19 21:24; Start 02/28/19 at 21:00; Stop 03/02/19 at 10:07; Status DC Albuterol/ Ipratropium (Duoneb) 3 ml RTQID NEB Last administered on 03/04/19 16 :38; Start 02/28/19 at 16:00 Haloperidol Lactate (Haldol Inj) 5 mg PRN Q6HRS PRN IVP AGITATION 2ND CHOICE Last administered on 03/04/19 02:11; Start 02/28/19 at 15:15 Vecuronium [place] (Norcuron Bolus) 8 mg PRN Q4HRS PRN IV MUSCLE SPASMS Last administered on 03/04/19 04:47; Start 02/28/19 at 15:15 Perflutren Protein Type A Microsphe (Optison) 0.66 mg PRN 1X PRN IV SEE COMMENTS; Start 03/01/19 at 10:00; Stop 03/02/19 at 09:59; Status DC Digoxin (Lanoxin) 125 mcg 1X STAT IV ; Start 03/01/19 at 15:34; Stop 03/01/19 at 16:00; Status DC Sodium Chloride 500 ml @ 500 mls/hr 1X ONCE IV Last administered on at 18:46; Start 03/01/19 at 18:45; Stop 03/01/19 at 19:44; Status DC Famotidine (Pepcid Vial) 20 mg Q12HR IVP Last administered on 03/04/19 09:52; Start 03/02/19 at 21:00 Furosemide (Lasix) 40 mg DAILY IVP Last administered on 03/04/19 09:52; Start 03/03/19 at 09:00; Stop 03/04/19 at 12:13; Status DC Acetaminophen (Tylenol Supp) 650 mg PRN Q6HRS PRN ID MILD PAIN / TEMP Last administered on 03/03/19 17:39; Start 03/02/19 at 17:15 Meropenem 500 mg/ Sodium Chloride 50 ml @ 100 mls/hr Q6HRS IV Last administered on 03/04/19 17:22; Start 03/03/19 at 12:00 Albumin Human 100 ml @ 100 mls/hr 1X ONCE IV Last administered on 03/03/19 08 :52; Start 03/03/19 at 08:30; Stop 03/03/19 at 09:29; Status DC Atropine Sulfate (ATROPINE 0.5mg SYRINGE) 2 mg STK-MED ONCE .ROUTE ; Start 02/27 at 16:21; Stop 03/03/19 at 16:22; Status DC Dopamine HCl/ Dextrose (DOPamine 400MG/ 250ML PREMIX) 400 mg STK-MED ONCE IV ; Start 02/27/19 at 16:21; Stop 03/03/19 at 16:22; Status DC Furosemide (Lasix) 40 mg 1X ONCE IVP Last administered on 03/03/19 18:46; Start 03/03/19 at 18:45; Stop 03/03/19 at 18:46; Status DC Lorazepam 100 mg/ Sodium Chloride 100 ml @ 0 mls/hr CONT PRN IV SEE PROTOCOL Last administered on 03/03/19 22:18; Start 03/03/19 at 22:00 Acetaminophen (Tylenol) 650 mg PRN Q6HRS PRN PEG MILD PAIN / TEMP Last administered on 03/04/19 11:59; Start 03/04/19 at 11:45 Furosemide (Lasix) 40 mg [id number] IVP Last administered on 03/04/19 15:22; Start 03/04/19 at 14:00 Active Scripts Active Reported Proair Hfa Inhaler (Albuterol Sulfate) 8.5 Gm Hfa.aer.ad 1 Puff INH PRN Q6HRS PRN Lantus Solostar (Insulin Glargine,Hum.rec.anlog) 100 Unit/1 Ml Insuln.pen 20 Unit SQ QHS Humalog (Insulin Lispro) 100 Unit/1 Ml Cartridge 6 Unit SQ TIDWMEALS Doxazosin Mesylate 2 Mg Tablet 2 Mg PO DAILY Omeprazole 40 Mg Capsule.dr 40 Mg PO DAILY Amlodipine Besylate 10 Mg Tablet 10 Mg PO DAILY Atorvastatin Calcium 20 Mg Tablet 20 Mg PO DAILY Atenolol 50 Mg Tablet 50 Mg PO DAILY Losartan Potassium 100 Mg Tablet 100 Mg PO DAILY Aspirin 81 Mg Tab.chew 81 Mg PO DAILY Glyburide 5 Mg Tablet 1 Tab PO BID Vitals/I & O Vital Sign - Last 24 Hours 03/03/19 03/03/19 03/03/19 03/03/19 18:00 19:00 19:36 20:00 Pulse 82 76 Resp 12 18 B/P (MAP) 116/57 (76) 128/54 (78) Pulse Ox 93 93 93 O2 Delivery Ventilator Ventilator Ventilator Mechanical Ventilator 03/03/19 03/03/19 03/03/19 03/03/19 20:00 20:32 21:00 21:08 Temp 100.4 100.4 Pulse 79 79 Resp 16 18 16 B/P (MAP) 114/49 (70) 133/56 (81) Pulse Ox 94 94 94 94 O2 Delivery Ventilator Ventilator Ventilator Ventilator 03/03/19 03/03/19 03/03/19 03/04/19 22:00 23:00 23:59 00:00 Temp 100.1 100.1 Pulse 76 96 79 Resp 16 18 16 B/P (MAP) 119/50 (73) 117/52 (73) 143/59 (87) Pulse Ox 94 94 95 O2 Delivery Ventilator Ventilator Mechanical Ventilator Ventilator 03/04/19 03/04/19 03/04/19 03/04/19 00:03 01:00 01:59 02:00 Pulse 79 76 Resp 18 16 18 B/P (MAP) 140/61 (87) 123/56 (78) Pulse Ox 92 94 94 92 O2 Delivery Ventilator Ventilator Ventilator Ventilator 03/04/19 03/04/19 03/04/19 03/04/19 03:00 03:00 04:00 04:00 Temp 99.7 99.7 Pulse 88 77 Resp 16 16 B/P (MAP) 118/55 (76) 121/56 (77) Pulse Ox 92 93 95 O2 Delivery Ventilator Ventilator Mechanical Ventilator Ventilator 03/04/19 03/04/19 03/04/19 03/04/19 05:00 05:50 06:00 06:05 Pulse 77 73 Resp 16 18 16 B/P (MAP) 146/70 (95) 142/66 (91) Pulse Ox 94 93 94 94 O2 Delivery Ventilator Ventilator Ventilator Ventilator 03/04/19 03/04/19 03/04/19 03/04/19 07:00 08:00 08:00 08:00 Temp 99.8 99.8 Pulse 74 72 Resp 16 16 B/P (MAP) 124/69 (87) 143/67 (92) Pulse Ox 94 94 O2 Delivery Ventilator Mechanical Ventilator Ventilator 03/04/19 03/04/19 03/04/19 03/04/19 08:33 09:00 09:23 10:00 Pulse 83 84 Resp 16 16 B/P (MAP) 112/65 (81) 123/59 (80) Pulse Ox 95 93 93 94 O2 Delivery Ventilator Ventilator Ventilator Ventilator 03/04/19 03/04/19 03/04/19 03/04/19 10:45 11:00 11:15 12:00 Pulse 89 Resp 16 14 14 B/P (MAP) 119/61 (80) Pulse Ox 93 95 O2 Delivery Ventilator Ventilator Ventilator Mechanical Ventilator 03/04/19 03/04/19 03/04/19 03/04/19 12:00 12:00 12:33 12:45 Temp 101.1 98.4 101.1 98.4 Pulse 84 Resp 14 B/P (MAP) 119/63 (81) Pulse Ox 96 95 O2 Delivery Ventilator Ventilator 03/04/19 03/04/19 03/04/19 03/04/19 13:00 13:33 14:00 14:54 Pulse 88 91 Resp 14 14 14 B/P (MAP) 103/57 (72) 110/53 (72) Pulse Ox 96 95 95 80 O2 Delivery Ventilator Ventilator Ventilator Ventilator 03/04/19 16:39 Pulse Ox 96 O2 Delivery Ventilator Intake and Output 03/03/19 03/03/19 03/04/19 15:00 23:00 07:00 Intake Total 975 ml 1615.82 ml 1938 ml Output Total 2050 ml 1975 ml 965 ml Balance -1075 ml -359.18 ml 973 ml MICHAEL BURRIS MD Mar 04, 2019 18:00
[2019-03-05] VITALS (24 sets, daily range): BP systolic 102–160; BP diastolic 57–98
[2019-03-05] MEDS: MIDAZOLAM 100mg/100ml NS BAG 100 ML IV PRN ×2 (03:42→21:24)
[2019-03-05] MEDS: ACETAMINOPHEN 650 MG/20.3 ML SOLUTION. PEG PRN ×2 (04:03→09:32)
[2019-03-05] MEDS: HEPARIN for SUB-Q USE 5,000 UNIT/ML VIAL. SQ SCH ×3 (05:33→21:26)
[2019-03-05] MEDS: MEROPENEM 500 MG in IV NORMAL SALINE 50ML 50 ML IV SCH (05:33)
[2019-03-05 05:47] LABS: BASO % 0 % (0-3); EOS # 0.3 x10^3/uL (0.0-0.7); EOS % 3 % (0-3); HEMATOCRIT 41.8 % (39.0-53.0); HEMOGLOBIN 13.3 g/dL (13.0-17.5); LYMPH # 0.4 x10^3/uL (1.0-4.8); LYMPH % 5 % (24-48); MEAN CORPUSCULAR HEMOGLOBIN 30 pg (25-35); MEAN CORPUSCULAR HGB CONC 32 g/dL (31-37); MEAN CORPUSCULAR VOLUME 95 fL (79-100); MONO # 0.6 x10^3/uL (0.0-1.1); MONO % 8 % (0-9); NEUT # 6.9 x10^3uL (1.8-7.7); NEUT % 83 % (31-73); PLATELET COUNT 193 x10^3/uL (140-400); RED BLOOD COUNT 4.39 x10^6/uL (4.30-5.70); RED CELL DISTRIBUTION WIDTH 14.5 % (11.5-14.5); WHITE BLOOD COUNT 8.2 x10^3/uL (4.0-11.0)
[2019-03-05 06:13] LABS: ALBUMIN 2.4 g/dL (3.4-5.0); ALBUMIN/GLOBULIN RATIO 0.5 (1.0-1.7); CALCIUM 8.6 mg/dL (8.5-10.1); CREATININE 1.8 mg/dL (0.7-1.3); GFR 39.2; POTASSIUM 5.3 mmol/L (3.5-5.1); TOTAL PROTEIN 7.1 g/dL (6.4-8.2)
--- NOTE | 2019-03-05 06:48 | PDOC ---
Infectious Disease Note Subjective Subjective intubated/sedated ROS ROS unable to obtain Vital Sign Vital Signs Vital Signs Date Time Temp Pulse Resp B/P (MAP) Pulse Ox O2 Delivery O2 Flow Rate FiO2 03/05/19 06:00 100.8 82 14 149/80 (103) 94 Ventilator 100.8 Physical Exam PHYSICAL EXAM GENERAL: Sedated and intubated. HEENT: pupils equal. ETT. OGT NECK: Supple. LUNGS: Decreased in bases HEART: S1, S2. ABDOMEN: Distended with decreased bowel sounds. mildly more firm today GENITOURINARY: He has 3-4+ scrotal swelling with some erythema. No gross warmth. EXTREMITIES: No clubbing, cyanosis with 2 + edema. Generalized anasarca. RLE stump with chronic wound. No erythema/fluctuance/warmth SKIN: Warm to touch without signs of generalized rash. [employer]: Unresponsive except resisted some when pupils examined/sedated IV: RIJ clean Labs Lab Laboratory Tests Test 03/04/19 09:20 03/04/19 14:20 03/05/19 05:31 03/05/19 05:35 O2 Saturation 93 % (92-99) Arterial Blood pH 7.48 (7.35-7.45) Arterial Blood pCO2 at Patient Temp 42 mmHg (35-46) Arterial Blood pO2 at Patient Temp 65 mmHg (75-108) Arterial Blood HCO3 30 mmol/L (21-28) Arterial Blood Base Excess 6 mmol/L (-3-3) FiO2 80 Prothrombin Time 14.9 SEC (11.7-14.0) Prothromb Time International Ratio 1.2 (0.8-1.1) Sodium Level 146 mmol/L (136-145) 145 mmol/L (136-145) Potassium Level 4.5 mmol/L (3.5-5.1) 5.3 mmol/L (3.5-5.1) Chloride Level 107 mmol/L (98-107) 105 mmol/L (98-107) Carbon Dioxide Level 33 mmol/L (21-32) 32 mmol/L (21-32) Anion Gap 6 (6-14) 8 (6-14) Blood Urea Nitrogen 22 mg/dL (8-26) 27 mg/dL (8-26) Creatinine 1.5 mg/dL (0.7-1.3) 1.8 mg/dL (0.7-1.3) Estimated GFR (Cockcroft-Gault) 48.4 39.2 BUN/Creatinine Ratio 15 (6-20) 15 (6-20) Glucose Level 188 mg/dL (70-99) 198 mg/dL (70-99) Calcium Level 8.4 mg/dL (8.5-10.1) 8.6 mg/dL (8.5-10.1) Magnesium Level 1.9 mg/dL (1.8-2.4) 2.0 mg/dL (1.8-2.4) Total Bilirubin 0.8 mg/dL (0.2-1.0) 1.0 mg/dL (0.2-1.0) Aspartate Amino Transf (AST/SGOT) 21 U/L (15-37) 29 U/L (15-37) Alanine Aminotransferase (ALT/SGPT) 22 U/L (16-63) 24 U/L (16-63) Alkaline Phosphatase 77 U/L (46-116) 83 U/L (46-116) Total Protein 6.4 g/dL (6.4-8.2) 7.1 g/dL (6.4-8.2) Albumin 2.2 g/dL (3.4-5.0) 2.4 g/dL (3.4-5.0) Albumin/Globulin Ratio 0.5 (1.0-1.7) 0.5 (1.0-1.7) Glucose (Fingerstick) 195 mg/dL (70-99) White Blood Count 8.2 x10^3/uL (4.0-11.0) Red Blood Count 4.39 x10^6/uL (4.30-5.70) Hemoglobin 13.3 g/dL (13.0-17.5) Hematocrit 41.8 % (39.0-53.0) Mean Corpuscular Volume 95 fL (79-100) Mean Corpuscular Hemoglobin 30 pg (25-35) Mean Corpuscular Hemoglobin Concent 32 g/dL (31-37) Red Cell Distribution Width 14.5 % (11.5-14.5) Platelet Count 193 x10^3/uL (140-400) Neutrophils (%) (Auto) 83 % (31-73) Lymphocytes (%) (Auto) 5 % (24-48) Monocytes (%) (Auto) 8 % (0-9) Eosinophils (%) (Auto) 3 % (0-3) Basophils (%) (Auto) 0 % (0-3) Neutrophils # (Auto) 6.9 x10^3uL (1.8-7.7) Lymphocytes # (Auto) 0.4 x10^3/uL (1.0-4.8) Monocytes # (Auto) 0.6 x10^3/uL (0.0-1.1) Eosinophils # (Auto) 0.3 x10^3/uL (0.0-0.7) Basophils # (Auto) 0.0 x10^3/uL (0.0-0.2) Phosphorus Level 5.0 mg/dL (2.6-4.7) Micro CT IMPRESSION: 1. Mild nonspecific perinephric stranding with slight asymmetric stranding adjacent to the left renal pelvis. Findings may be due to chronic kidney disease, though ascending urinary tract infection is not excluded. 2. Bilateral lower lobe consolidation concerning for multifocal pneumonia or pneumonitis with aspiration not excluded. 3. Right renal hypodensity measuring 2.5 cm is incompletely evaluated on noncontrast examination. Follow-up MRI or CT abdomen and pelvis renal protocol with contrast is recommended for further evaluation. 4. Anasarca. 5. Mild bilateral external iliac lymphadenopathy, may be reactive, though follow-up CT abdomen and pelvis in 3 months is recommended to assess for stability/resolution. 6. Nonobstructive left nephrolithiasis. 7. Coronary artery calcifications. Microbiology 02/28/19 Blood Culture - Preliminary, Resulted NO GROWTH AFTER 1 DAY Objective Assessment Fever/mild increased procalcitonin/WBC trending - ? Infection vs ileus Increased GI residuals - Has been on/off ? Ileus vs DM gastroparesis Acute respiratory failure, intubated, increased infiltrates today Scrotal edema/cellulitis. Status post code. Fluid overload - mild increase Acute kidney injury - better. Distant history of group B strep, Acinetobacter, Porphyromonas, plus anaerobes. Plan Plan of Care Reculture blood and sputum. Urine just checked / KUB with residuals Add Cefepime/Flagyl Discont Meropenem restart Zyvox - Avoid Vanc with LEONARD - Discont Micafungin as not improved despite May need additional imaging F/u labs/cults in am D/w nursing Critically ill QUIANA PACK MD Mar 05, 2019 06:48
[2019-03-05] MEDS: IPRATRPIUM/ALBUTEROL 0.5/2.5MG 3 ML NEBU. NEB SCH ×4 (07:18→19:47)
[2019-03-05] MEDS: CEFEPIME HCL IV Push 2 GM VIAL. IVP SCH ×3 (07:20→21:26)
[2019-03-05 07:28] LABS: BASE EXCESS ABG 5 mmol/L (-3-3); HCO3 ABG 33 mmol/L (21-28); PO2 ABG 75 mmHg (75-108); SAT O2 ABG 94 % (92-99)
[2019-03-05 07:31] LABS: PCO2 ABG 61 mmHg (35-46)
[2019-03-05 07:32] LABS: FIO2 ABG 80
--- NOTE | 2019-03-05 07:42 | RAD ---
Portable abdomen, 03/05/2019: HISTORY: Increased residuals, respiratory failure An NG tube extends into the distal aspect of the stomach. There is only small amount gas in the GI tract in a nonspecific pattern. There is no evidence of organomegaly or abnormal abdominal calcification. IMPRESSION: 1. The NG tube extends into the gastric antrum. 2. No acute abdominal abnormality is detected. Portable chest, 03/05/2019: HISTORY: Respiratory failure Comparison is made to yesterday's study. The patient is rotated to the left. The ET tube tip lies well above the armani. A right jugular central venous catheter remains in place although its tip is not visible on the current exam. There are worsening moderate bilateral pulmonary infiltrates with obscuration of the underlying pulmonary vascularity. The hemidiaphragms are obscured. There is probably moderate bilateral pleural fluid contributing to the lower chest opacities. There is no evidence of pneumothorax. IMPRESSION: 1. Stable tube positions. 2. Worsening bilateral pulmonary infiltrate most compatible with pulmonary edema with associated bilateral pleural effusions. Electronically signed by: Moose Astorga MD (03/05/2019 7:39 AM) [facility]
[2019-03-05] MEDS: FUROSEMIDE 40 MG/4 ML VIAL. IVP SCH ×2 (08:16→13:59)
[2019-03-05] MEDS: FAMOTIDINE 20 MG/2 ML VIAL IVP SCH ×2 (08:17→21:23)
--- NOTE | 2019-03-05 09:07 | PDOC ---
PROGRESS NOTES Chief Complaint Chief Complaint Assessment/Plan ACUTE RESP ARREST POST CODE ON FLOOR 02/27 Acute respiratory failure secondary to congestive heart failure, most probably acute on chronic diastolic. s/p intubation. Myocardial infarction ruled out. Hypernatremia secondary to severe dehydration will need to provide water flushes in order to correct electrolyte disturbance. High residuals on tube feedings no evidence of obstructive pattern on x ray done 03/05/2019 3 weeks of bilateral general scrotal swelling and tenderness. +dyspnea, abd swelling, leg swelling. POA, Dm2 obesity, extreme, morbid hx RLE BKA RLE stump with chronic wound. No erythema/warmth left foot nail onychomycosis needs attention when more clinically stable Acute renal failure ATN Renal CONSULT 3.1-1.8 chronic venous insuff left lower leg nonspecific perinephric stranding with slight asymmetric stranding adjacent to the left renal pelvis. Findings may be due to chronic kidney disease, though ascending urinary tract infection is not excluded. Bilateral lower lobe consolidation concerning for multifocal pneumonia aspiration not excluded. Right renal hypodensity measuring 2.5 cm is incompletely evaluated on noncontrast examination. Follow-up MRI or CT abdomen and pelvis renal protocol with contrast is recommended for further evaluation. Anasarca. bilateral external iliac lymphadenopathy, may be reactive, though follow-up CT abdomen and pelvis in 3 months is recommended to assess for stability/resolution. Nonobstructive left nephrolithiasis. Coronary artery calcifications. The left ventricular systolic function is normal.ejection fraction is 60-65% .normal LV segmental wall motion. Transmitral Doppler flow pattern is Grade I-abnormal relaxation pattern. Trace tricuspid regurgitation. Estimated PAP 33-38 mmHg. PLAN start reglan hold tube feedings for the moment given high residual will check in a couple of hours after reglan has been given INTUBATED // IN ICU VENT SUPPORT continues to require 80% and 10 of PEEP PULM CONSULT recommendations greatly appreciated CARDIOLOGY CONSULT UROLOGY CONSULT reviewed no intervention needed except for elevation and diuresis ID CONSULT IV Meropenem cont Zyvox - Avoid Vanc with LEONARD IV Micafungin has been discontinued lactic acid/BNP follow ECHO noted PROCALCITONIN with normal results. CT ABD/ PELVIS reviewed 1. Mild nonspecific perinephric stranding with slight asymmetric stranding adjacent to the left renal pelvis. Findings may be due to chronic kidney disease, though ascending urinary tract infection is not excluded. 2. Bilateral lower lobe consolidation concerning for multifocal pneumonia or pneumonitis with aspiration not excluded. 3. Right renal hypodensity measuring 2.5 cm is incompletely evaluated on noncontrast examination. Follow-up MRI or CT abdomen and pelvis renal protocol with contrast is recommended for further evaluation. 4. Anasarca. 5. Mild bilateral external iliac lymphadenopathy, may be reactive, though follow-up CT abdomen and pelvis in 3 months is recommended to assess for stability/resolution. 6. Nonobstructive left nephrolithiasis. 7. Coronary artery calcifications. History of Present Illness History of Present Illness Patient with no acute events reported overnight. Continues to be critically ill but seems to be stable at the present time. Discussed with nursing staff at bedside Vitals Vitals Vital Signs Date Time Temp Pulse Resp B/P (MAP) Pulse Ox O2 Delivery O2 Flow Rate FiO2 03/05/19 07:18 94 Ventilator 03/05/19 07:15 14 03/05/19 07:00 77 135/66 (89) 03/05/19 06:00 100.8 100.8 Physical Exam Physical Exam GENERAL: Sedated and intubated. HEENT: pupils equal. ETT. OGT NECK: Supple. LUNGS: Decreased in bases HEART: S1, S2. ABDOMEN: Distended with decreased bowel sounds. mildly more firm today GENITOURINARY: He has 3-4+ scrotal swelling with some erythema. No gross warmth. EXTREMITIES: No clubbing, cyanosis with 2 + edema. Generalized anasarca. RLE stump with chronic wound. No erythema/fluctuance/warmth SKIN: Warm to touch without signs of generalized rash. [employer]: Unresponsive except resisted some when pupils examined/sedated IV: RIJ clean General: Other (SEDATED) Heart: Regular rate, Normal S1, Normal S2, No murmurs, Gallops Lungs: Other (decrease bs) Abdomen: Soft, No tenderness, Other (VERY OBESE) Extremities: No cyanosis, Other (ANASARCA) Skin: Other (scale, lower leg ) Labs LABS Laboratory Tests Test 03/04/19 09:20 03/04/19 14:20 03/05/19 05:31 03/05/19 05:35 O2 Saturation 93 % (92-99) Arterial Blood pH 7.48 (7.35-7.45) Arterial Blood pCO2 at Patient Temp 42 mmHg (35-46) Arterial Blood pO2 at Patient Temp 65 mmHg (75-108) Arterial Blood HCO3 30 mmol/L (21-28) Arterial Blood Base Excess 6 mmol/L (-3-3) FiO2 80 Prothrombin Time 14.9 SEC (11.7-14.0) Prothromb Time International Ratio 1.2 (0.8-1.1) Sodium Level 146 mmol/L (136-145) 145 mmol/L (136-145) Potassium Level 4.5 mmol/L (3.5-5.1) 5.3 mmol/L (3.5-5.1) Chloride Level 107 mmol/L (98-107) 105 mmol/L (98-107) Carbon Dioxide Level 33 mmol/L (21-32) 32 mmol/L (21-32) Anion Gap 6 (6-14) 8 (6-14) Blood Urea Nitrogen 22 mg/dL (8-26) 27 mg/dL (8-26) Creatinine 1.5 mg/dL (0.7-1.3) 1.8 mg/dL (0.7-1.3) Estimated GFR (Cockcroft-Gault) 48.4 39.2 BUN/Creatinine Ratio 15 (6-20) 15 (6-20) Glucose Level 188 mg/dL (70-99) 198 mg/dL (70-99) Calcium Level 8.4 mg/dL (8.5-10.1) 8.6 mg/dL (8.5-10.1) Magnesium Level 1.9 mg/dL (1.8-2.4) 2.0 mg/dL (1.8-2.4) Total Bilirubin 0.8 mg/dL (0.2-1.0) 1.0 mg/dL (0.2-1.0) Aspartate Amino Transf (AST/SGOT) 21 U/L (15-37) 29 U/L (15-37) Alanine Aminotransferase (ALT/SGPT) 22 U/L (16-63) 24 U/L (16-63) Alkaline Phosphatase 77 U/L (46-116) 83 U/L (46-116) Total Protein 6.4 g/dL (6.4-8.2) 7.1 g/dL (6.4-8.2) Albumin 2.2 g/dL (3.4-5.0) 2.4 g/dL (3.4-5.0) Albumin/Globulin Ratio 0.5 (1.0-1.7) 0.5 (1.0-1.7) Glucose (Fingerstick) 195 mg/dL (70-99) White Blood Count 8.2 x10^3/uL (4.0-11.0) Red Blood Count 4.39 x10^6/uL (4.30-5.70) Hemoglobin 13.3 g/dL (13.0-17.5) Hematocrit 41.8 % (39.0-53.0) Mean Corpuscular Volume 95 fL (79-100) Mean Corpuscular Hemoglobin 30 pg (25-35) Mean Corpuscular Hemoglobin Concent 32 g/dL (31-37) Red Cell Distribution Width 14.5 % (11.5-14.5) Platelet Count 193 x10^3/uL (140-400) Neutrophils (%) (Auto) 83 % (31-73) Lymphocytes (%) (Auto) 5 % (24-48) Monocytes (%) (Auto) 8 % (0-9) Eosinophils (%) (Auto) 3 % (0-3) Basophils (%) (Auto) 0 % (0-3) Neutrophils # (Auto) 6.9 x10^3uL (1.8-7.7) Lymphocytes # (Auto) 0.4 x10^3/uL (1.0-4.8) Monocytes # (Auto) 0.6 x10^3/uL (0.0-1.1) Eosinophils # (Auto) 0.3 x10^3/uL (0.0-0.7) Basophils # (Auto) 0.0 x10^3/uL (0.0-0.2) Phosphorus Level 5.0 mg/dL (2.6-4.7) Test 03/05/19 07:20 O2 Saturation 94 % (92-99) Arterial Blood pH 7.35 (7.35-7.45) Arterial Blood pCO2 at Patient Temp 61 mmHg (35-46) Arterial Blood pO2 at Patient Temp 75 mmHg (75-108) Arterial Blood HCO3 33 mmol/L (21-28) Arterial Blood Base Excess 5 mmol/L (-3-3) FiO2 80 Assessment and Plan Assessmemt and Plan Problems Medical Problems: (1) Acute renal failure Status: Acute (2) Edema Status: Acute (3) Shortness of breath Status: Acute Comment Review of Relevant I have reviewed the following items pascual (where applicable) has been applied. Labs Laboratory Tests Test 03/03/19 15:23 03/04/19 04:52 03/04/19 09:20 03/04/19 14:20 Glucose (Fingerstick) 150 mg/dL (70-99) White Blood Count 5.1 x10^3/uL (4.0-11.0) Red Blood Count 4.33 x10^6/uL (4.30-5.70) Hemoglobin 13.0 g/dL (13.0-17.5) Hematocrit 41.1 % (39.0-53.0) Mean Corpuscular Volume 95 fL (79-100) Mean Corpuscular Hemoglobin 30 pg (25-35) Mean Corpuscular Hemoglobin Concent 32 g/dL (31-37) Red Cell Distribution Width 14.6 % (11.5-14.5) Platelet Count 187 x10^3/uL (140-400) Neutrophils (%) (Auto) 73 % (31-73) Lymphocytes (%) (Auto) 14 % (24-48) Monocytes (%) (Auto) 8 % (0-9) Eosinophils (%) (Auto) 4 % (0-3) Basophils (%) (Auto) 1 % (0-3) Neutrophils # (Auto) 3.8 x10^3uL (1.8-7.7) Lymphocytes # (Auto) 0.7 x10^3/uL (1.0-4.8) Monocytes # (Auto) 0.4 x10^3/uL (0.0-1.1) Eosinophils # (Auto) 0.2 x10^3/uL (0.0-0.7) Basophils # (Auto) 0.0 x10^3/uL (0.0-0.2) Sodium Level 146 mmol/L (136-145) 146 mmol/L (136-145) Potassium Level 4.1 mmol/L (3.5-5.1) 4.5 mmol/L (3.5-5.1) Chloride Level 106 mmol/L (98-107) 107 mmol/L (98-107) Carbon Dioxide Level 33 mmol/L (21-32) 33 mmol/L (21-32) Anion Gap 7 (6-14) 6 (6-14) Blood Urea Nitrogen 21 mg/dL (8-26) 22 mg/dL (8-26) Creatinine 1.5 mg/dL (0.7-1.3) 1.5 mg/dL (0.7-1.3) Estimated GFR (Cockcroft-Gault) 48.4 48.4 BUN/Creatinine Ratio 14 (6-20) 15 (6-20) Glucose Level 195 mg/dL (70-99) 188 mg/dL (70-99) Calcium Level 8.5 mg/dL (8.5-10.1) 8.4 mg/dL (8.5-10.1) Total Bilirubin 0.9 mg/dL (0.2-1.0) 0.8 mg/dL (0.2-1.0) Aspartate Amino Transf (AST/SGOT) 22 U/L (15-37) 21 U/L (15-37) Alanine Aminotransferase (ALT/SGPT) 21 U/L (16-63) 22 U/L (16-63) Alkaline Phosphatase 83 U/L (46-116) 77 U/L (46-116) Total Protein 6.7 g/dL (6.4-8.2) 6.4 g/dL (6.4-8.2) Albumin 2.4 g/dL (3.4-5.0) 2.2 g/dL (3.4-5.0) Albumin/Globulin Ratio 0.6 (1.0-1.7) 0.5 (1.0-1.7) Lipase 83 U/L (73-393) Procalcitonin 0.27 ng/mL (0.00-0.10) O2 Saturation 93 % (92-99) Arterial Blood pH 7.48 (7.35-7.45) Arterial Blood pCO2 at Patient Temp 42 mmHg (35-46) Arterial Blood pO2 at Patient Temp 65 mmHg (75-108) Arterial Blood HCO3 30 mmol/L (21-28) Arterial Blood Base Excess 6 mmol/L (-3-3) FiO2 80 Prothrombin Time 14.9 SEC (11.7-14.0) Prothromb Time International Ratio 1.2 (0.8-1.1) Magnesium Level 1.9 mg/dL (1.8-2.4) Test 03/05/19 05:31 03/05/19 05:35 03/05/19 07:20 Glucose (Fingerstick) 195 mg/dL (70-99) White Blood Count 8.2 x10^3/uL (4.0-11.0) Red Blood Count 4.39 x10^6/uL (4.30-5.70) Hemoglobin 13.3 g/dL (13.0-17.5) Hematocrit 41.8 % (39.0-53.0) Mean Corpuscular Volume 95 fL (79-100) Mean Corpuscular Hemoglobin 30 pg (25-35) Mean Corpuscular Hemoglobin Concent 32 g/dL (31-37) Red Cell Distribution Width 14.5 % (11.5-14.5) Platelet Count 193 x10^3/uL (140-400) Neutrophils (%) (Auto) 83 % (31-73) Lymphocytes (%) (Auto) 5 % (24-48) Monocytes (%) (Auto) 8 % (0-9) Eosinophils (%) (Auto) 3 % (0-3) Basophils (%) (Auto) 0 % (0-3) Neutrophils # (Auto) 6.9 x10^3uL (1.8-7.7) Lymphocytes # (Auto) 0.4 x10^3/uL (1.0-4.8) Monocytes # (Auto) 0.6 x10^3/uL (0.0-1.1) Eosinophils # (Auto) 0.3 x10^3/uL (0.0-0.7) Basophils # (Auto) 0.0 x10^3/uL (0.0-0.2) Sodium Level 145 mmol/L (136-145) Potassium Level 5.3 mmol/L (3.5-5.1) Chloride Level 105 mmol/L (98-107) Carbon Dioxide Level 32 mmol/L (21-32) Anion Gap 8 (6-14) Blood Urea Nitrogen 27 mg/dL (8-26) Creatinine 1.8 mg/dL (0.7-1.3) Estimated GFR (Cockcroft-Gault) 39.2 BUN/Creatinine Ratio 15 (6-20) Glucose Level 198 mg/dL (70-99) Calcium Level 8.6 mg/dL (8.5-10.1) Phosphorus Level 5.0 mg/dL (2.6-4.7) Magnesium Level 2.0 mg/dL (1.8-2.4) Total Bilirubin 1.0 mg/dL (0.2-1.0) Aspartate Amino Transf (AST/SGOT) 29 U/L (15-37) Alanine Aminotransferase (ALT/SGPT) 24 U/L (16-63) Alkaline Phosphatase 83 U/L (46-116) Total Protein 7.1 g/dL (6.4-8.2) Albumin 2.4 g/dL (3.4-5.0) Albumin/Globulin Ratio 0.5 (1.0-1.7) O2 Saturation 94 % (92-99) Arterial Blood pH 7.35 (7.35-7.45) Arterial Blood pCO2 at Patient Temp 61 mmHg (35-46) Arterial Blood pO2 at Patient Temp 75 mmHg (75-108) Arterial Blood HCO3 33 mmol/L (21-28) Arterial Blood Base Excess 5 mmol/L (-3-3) FiO2 80 Laboratory Tests Test 03/04/19 09:20 03/04/19 14:20 03/05/19 05:31 03/05/19 05:35 O2 Saturation 93 % (92-99) Arterial Blood pH 7.48 (7.35-7.45) Arterial Blood pCO2 at Patient Temp 42 mmHg (35-46) Arterial Blood pO2 at Patient Temp 65 mmHg (75-108) Arterial Blood HCO3 30 mmol/L (21-28) Arterial Blood Base Excess 6 mmol/L (-3-3) FiO2 80 Prothrombin Time 14.9 SEC (11.7-14.0) Prothromb Time International Ratio 1.2 (0.8-1.1) Sodium Level 146 mmol/L (136-145) 145 mmol/L (136-145) Potassium Level 4.5 mmol/L (3.5-5.1) 5.3 mmol/L (3.5-5.1) Chloride Level 107 mmol/L (98-107) 105 mmol/L (98-107) Carbon Dioxide Level 33 mmol/L (21-32) 32 mmol/L (21-32) Anion Gap 6 (6-14) 8 (6-14) Blood Urea Nitrogen 22 mg/dL (8-26) 27 mg/dL (8-26) Creatinine 1.5 mg/dL (0.7-1.3) 1.8 mg/dL (0.7-1.3) Estimated GFR (Cockcroft-Gault) 48.4 39.2 BUN/Creatinine Ratio 15 (6-20) 15 (6-20) Glucose Level 188 mg/dL (70-99) 198 mg/dL (70-99) Calcium Level 8.4 mg/dL (8.5-10.1) 8.6 mg/dL (8.5-10.1) Magnesium Level 1.9 mg/dL (1.8-2.4) 2.0 mg/dL (1.8-2.4) Total Bilirubin 0.8 mg/dL (0.2-1.0) 1.0 mg/dL (0.2-1.0) Aspartate Amino Transf (AST/SGOT) 21 U/L (15-37) 29 U/L (15-37) Alanine Aminotransferase (ALT/SGPT) 22 U/L (16-63) 24 U/L (16-63) Alkaline Phosphatase 77 U/L (46-116) 83 U/L (46-116) Total Protein 6.4 g/dL (6.4-8.2) 7.1 g/dL (6.4-8.2) Albumin 2.2 g/dL (3.4-5.0) 2.4 g/dL (3.4-5.0) Albumin/Globulin Ratio 0.5 (1.0-1.7) 0.5 (1.0-1.7) Glucose (Fingerstick) 195 mg/dL (70-99) White Blood Count 8.2 x10^3/uL (4.0-11.0) Red Blood Count 4.39 x10^6/uL (4.30-5.70) Hemoglobin 13.3 g/dL (13.0-17.5) Hematocrit 41.8 % (39.0-53.0) Mean Corpuscular Volume 95 fL (79-100) Mean Corpuscular Hemoglobin 30 pg (25-35) Mean Corpuscular Hemoglobin Concent 32 g/dL (31-37) Red Cell Distribution Width 14.5 % (11.5-14.5) Platelet Count 193 x10^3/uL (140-400) Neutrophils (%) (Auto) 83 % (31-73) Lymphocytes (%) (Auto) 5 % (24-48) Monocytes (%) (Auto) 8 % (0-9) Eosinophils (%) (Auto) 3 % (0-3) Basophils (%) (Auto) 0 % (0-3) Neutrophils # (Auto) 6.9 x10^3uL (1.8-7.7) Lymphocytes # (Auto) 0.4 x10^3/uL (1.0-4.8) Monocytes # (Auto) 0.6 x10^3/uL (0.0-1.1) Eosinophils # (Auto) 0.3 x10^3/uL (0.0-0.7) Basophils # (Auto) 0.0 x10^3/uL (0.0-0.2) Phosphorus Level 5.0 mg/dL (2.6-4.7) Test 03/05/19 07:20 O2 Saturation 94 % (92-99) Arterial Blood pH 7.35 (7.35-7.45) Arterial Blood pCO2 at Patient Temp 61 mmHg (35-46) Arterial Blood pO2 at Patient Temp 75 mmHg (75-108) Arterial Blood HCO3 33 mmol/L (21-28) Arterial Blood Base Excess 5 mmol/L (-3-3) FiO2 80 Microbiology 02/28/19 Blood Culture - Preliminary, Resulted NO GROWTH AFTER 4 DAYS 03/02/19 Urine Culture - Final, Complete 03/02/19 Urine Culture Result 1 (LUCIO) - Final, Complete Medications Current Medications Ondansetron HCl (Zofran) 4 mg PRN Q8HRS PRN IV NAUSEA/VOMITING; Start 02/27/19 at 16:45; Stop 02/28/19 at 16:44; Status DC Morphine Sulfate (Morphine Sulfate) 2 mg PRN Q2HR PRN IV PAIN; Start 02/27/19 at 16:45; Stop 02/28/19 at 16:44; Status DC Acetaminophen (Tylenol) 650 mg PRN Q4HRS PRN PO FEVER Last administered on 02/27at 21:06; Start 02/27/19 at 16:45; Stop 02/28/19 at 16:44; Status DC Dextrose (Dextrose 50%-Water Syringe) 12.5 gm PRN Q15MIN PRN IV SEE COMMENTS; Start 02/27/19 at 16:45 Heparin Sodium (Porcine) (Heparin Sodium) 5,000 unit Q8HRS SQ Last administered on 03/05/19at 05:33; Start 02/27/19 at 17:00 Lorazepam (Ativan) 1 mg PRN Q8HRS PRN IV ANXIETY / AGITATION Last administered on 03/03/19at 20:00; Start 02/28/19 at 02:45 Etomidate (Amidate) 20 mg STK-MED ONCE IV ; Start 02/28/19 at 06:59; Stop at 07:00; Status DC Rocuronium Power (Zemuron) 50 mg STK-MED ONCE .ROUTE ; Start 02/28/19 at 07:00 ; Stop 02/28/19 at 09:42; Status DC Dopamine HCl/ Dextrose 250 ml @ 12.266 mls/ hr CONT PRN IV SEE I/O RECORD Last administered on 02/28/19at 08:06; Start 02/28/19 at 07:15 Fentanyl Citrate 30 ml @ 0 mls/hr CONT PRN IV SEE PROTOCOL; Start 02/28/19 at 07:15; Stop 02/28/19 at 07:59; Status DC Propofol 100 ml @ 0 mls/hr CONT PRN IV SEE PROTOCOL; Start 02/28/19 at 07:15; Stop 02/28/19 at 07:59; Status DC Fentanyl Citrate (Fentanyl 2ml Vial) 25 mcg PRN Q1HR PRN IV SEE COMMENTS; Start 02/28/19 at 07:15; Stop 02/28/19 at 07:59; Status DC Fentanyl Citrate (Fentanyl 2ml Vial) 50 mcg PRN Q1HR PRN IV SEE COMMENTS; Start 02/28/19 at 07:15; Stop 02/28/19 at 07:59; Status DC Midazolam HCl 100 ml @ 0 mls/hr CONT PRN IV SEE PROTOCOL Last administered on at 03:42; Start 02/28/19 at 07:15 Sodium Chloride 1,000 ml @ 1,000 mls/hr Q1H IV Last administered on 02/28/19at 07:32; Start 02/28/19 at 07:32; Stop 02/28/19 at 10:09; Status DC Fentanyl Citrate (Fentanyl 2ml Vial) 25 mcg PRN Q30MIN PRN IV see comments; Start 02/28/19 at 07:45; Stop 02/28/19 at 09:42; Status DC Lorazepam (Ativan) 1 mg PRN Q30MIN PRN IV SEDATION; Start 02/28/19 at 07:45; Stop 02/28/19 at 09:42; Status DC Fentanyl Citrate 30 ml @ 2.5 mls/hr CONT PRN PRN IV SEE I/O RECORD Last administered on 03/05/19at 03:44; Start 02/28/19 at 07:45; Stop 03/05/19 at 04:40; Status DC Propofol 100 ml @ 0 mls/hr CONT PRN IV SEE I/O RECORD; Start 02/28/19 at 07:45 Vecuronium Power (Norcuron Bolus) 10 mg PRN Q30MIN PRN IV SHIVERING; Start at 07:45; Stop 02/28/19 at 09:42; Status DC Meperidine HCl (Demerol) 12.5 mg PRN Q30MIN PRN IV SHIVERING; Start 02/28/19 at 07:45; Stop 02/28/19 at 09:42; Status DC Multi-Ingred Cream/Lotion/Oil/ Oint (Artificial Tears Eye Ointment) 1 jennifer PRN Q6HRS PRN OU 0.5 INCH FOR DRY EYE; Start 02/28/19 at 07:45; Stop 02/28/19 at 09 :42; Status DC Famotidine (Pepcid Vial) 20 mg BID IVP Last administered on 02/28/19at 11:03; Start 02/28/19 at 09:00; Stop 02/28/19 at 14:25; Status DC Aspirin (Aspirin) 300 mg DAILY CO ; Start 02/28/19 at 09:00; Stop 02/28/19 at 09 :42; Status DC Sodium Chloride (Normal Saline Flush) 3 ml QSHIFT PRN IV AFTER MEDS AND BLOOD DRAWS; Start 02/28/19 at 07:45 Acetaminophen (Tylenol) 650 mg Q6HRS NG ; Start 02/28/19 at 12:00; Stop at 12:00; Status DC Acetaminophen (Tylenol Supp) 650 mg PRN Q6HRS PRN CO MILD PAIN / TEMP; Start at 07:45; Stop 03/01/19 at 07:45; Status DC Acetaminophen (Tylenol) 650 mg PRN Q6HRS PRN NG MILD PAIN / TEMP; Start at 07:45; Stop 03/01/19 at 07:45; Status DC Info (Icu Electrolyte Protocol) 1 ea DAILY PRN MC PER PROTOCOL; Start 03/02/19 at 07:45; Stop 03/02/19 at 07:45; Status DC Furosemide (Lasix) 60 mg 1X ONCE IVP Last administered on 02/28/19at 08:30; Start 02/28/19 at 08:30; Stop 02/28/19 at 08:31; Status DC Ceftriaxone Sodium (Rocephin) 1 gm Q24H IVP Last administered on 02/28/19at 11: 03; Start 02/28/19 at 11:00; Stop 02/28/19 at 11:18; Status DC Calcium Chloride 1000 mg/Dextrose 60 ml @ 120 mls/hr 1X ONCE IV Last administered on 02/28/19at 11:03; Start 02/28/19 at 10:30; Stop 02/28/19 at 10:59 ; Status DC Meropenem 500 mg/ Sodium Chloride 50 ml @ 100 mls/hr Q8HRS IV Last administered on 03/03/19at 06:24; Start 02/28/19 at 14:00; Stop 03/03/19 at 07:04; Status DC Linezolid/Dextrose 300 ml @ 300 mls/hr Q12HR IV Last administered on 03/03/19at 20:00; Start 02/28/19 at 11:30; Stop 03/04/19 at 08:55; Status DC Micafungin Sodium 100 mg/Dextrose 100 ml @ 100 mls/hr Q24H IV Last administered on 03/04/19at 15:53; Start 02/28/19 at 12:00; Stop 03/05/19 at 06:47; Status DC Furosemide (Lasix) 40 mg [id number] IVP Last administered on 03/02/19 14:06; Start 02/28/19 at 14:00; Stop 03/02/19 at 17:02; Status DC Famotidine (Pepcid Vial) 20 mg QHS IVP Last administered on 03/01/19 21:24; Start 02/28/19 at 21:00; Stop 03/02/19 at 10:07; Status DC Albuterol/ Ipratropium (Duoneb) 3 ml RTQID NEB Last administered on 03/05/19 07 :18; Start 02/28/19 at 16:00 Haloperidol Lactate (Haldol Inj) 5 mg PRN Q6HRS PRN IVP AGITATION 2ND CHOICE Last administered on 03/04/19 02:11; Start 02/28/19 at 15:15 Vecuronium Power (Norcuron Bolus) 8 mg PRN Q4HRS PRN IV MUSCLE SPASMS Last administered on 03/04/19 04:47; Start 02/28/19 at 15:15 Perflutren Protein Type A Microsphe (Optison) 0.66 mg PRN 1X PRN IV SEE COMMENTS; Start 03/01/19 at 10:00; Stop 03/02/19 at 09:59; Status DC Digoxin (Lanoxin) 125 mcg 1X STAT IV ; Start 03/01/19 at 15:34; Stop 03/01/19 at 16:00; Status DC Sodium Chloride 500 ml @ 500 mls/hr 1X ONCE IV Last administered on at 18:46; Start 03/01/19 at 18:45; Stop 03/01/19 at 19:44; Status DC Famotidine (Pepcid Vial) 20 mg Q12HR IVP Last administered on 03/05/19 08:17; Start 03/02/19 at 21:00 Furosemide (Lasix) 40 mg DAILY IVP Last administered on 03/04/19 09:52; Start 03/03/19 at 09:00; Stop 03/04/19 at 12:13; Status DC Acetaminophen (Tylenol Supp) 650 mg PRN Q6HRS PRN CO MILD PAIN / TEMP Last administered on 03/03/19 17:39; Start 03/02/19 at 17:15 Meropenem 500 mg/ Sodium Chloride 50 ml @ 100 mls/hr Q6HRS IV Last administered on 03/05/19 05:33; Start 03/03/19 at 12:00; Stop 03/05/19 at 06:47; Status DC Albumin Human 100 ml @ 100 mls/hr 1X ONCE IV Last administered on 03/03/19 08 :52; Start 03/03/19 at 08:30; Stop 03/03/19 at 09:29; Status DC Atropine Sulfate (ATROPINE 0.5mg SYRINGE) 2 mg STK-MED ONCE .ROUTE ; Start 02/27 at 16:21; Stop 03/03/19 at 16:22; Status DC Dopamine HCl/ Dextrose (DOPamine 400MG/ 250ML PREMIX) 400 mg STK-MED ONCE IV ; Start 02/27/19 at 16:21; Stop 03/03/19 at 16:22; Status DC Furosemide (Lasix) 40 mg 1X ONCE IVP Last administered on 03/03/19 18:46; Start 03/03/19 at 18:45; Stop 03/03/19 at 18:46; Status DC Lorazepam 100 mg/ Sodium Chloride 100 ml @ 0 mls/hr CONT PRN IV SEE PROTOCOL Last administered on 03/03/19 22:18; Start 03/03/19 at 22:00 Acetaminophen (Tylenol) 650 mg PRN Q6HRS PRN PEG MILD PAIN / TEMP Last administered on 03/05/19 04:03; Start 03/04/19 at 11:45 Furosemide (Lasix) 40 mg [id number] IVP Last administered on 03/05/19 08:16; Start 03/04/19 at 14:00 Fentanyl Citrate 30 ml @ 0 mls/hr CONT PRN IV SEE PROTOCOL Last administered on 03/05/19 06:45; Start 03/05/19 at 04:45 Cefepime HCl (Maxipime) 2 gm Q8HRS IVP Last administered on 03/05/19 07:20; Start 03/05/19 at 06:45 Metronidazole 100 ml @ 100 mls/hr Q8HRS IV Last administered on 03/05/19 07:20 ; Start 03/05/19 at 06:45 Linezolid/Dextrose 300 ml @ 300 mls/hr Q12HR IV Last administered on 4/4/19at 08:31; Start 03/05/19 at 09:00 Metoclopramide HCl (Reglan Vial) 10 mg QIDACHS IV ; Start 03/05/19 at 11:30 Insulin Glargine (Lantus) 12 units BID SQ ; Start 03/05/19 at 09:00 Active Scripts Active Reported Proair Hfa Inhaler (Albuterol Sulfate) 8.5 Gm Hfa.aer.ad 1 Puff INH PRN Q6HRS PRN Lantus Solostar (Insulin Glargine,Hum.rec.anlog) 100 Unit/1 Ml Insuln.pen 20 Unit SQ QHS Humalog (Insulin Lispro) 100 Unit/1 Ml Cartridge 6 Unit SQ TIDWMEALS Doxazosin Mesylate 2 Mg Tablet 2 Mg PO DAILY Omeprazole 40 Mg Capsule.dr 40 Mg PO DAILY Amlodipine Besylate 10 Mg Tablet 10 Mg PO DAILY Atorvastatin Calcium 20 Mg Tablet 20 Mg PO DAILY Atenolol 50 Mg Tablet 50 Mg PO DAILY Losartan Potassium 100 Mg Tablet 100 Mg PO DAILY Aspirin 81 Mg Tab.chew 81 Mg PO DAILY Glyburide 5 Mg Tablet 1 Tab PO BID Vitals/I & O Vital Sign - Last 24 Hours 03/04/19 03/04/19 03/04/19 03/04/19 09:23 10:00 10:45 11:00 Pulse 84 89 Resp 16 16 14 B/P (MAP) 123/59 (80) 119/61 (80) Pulse Ox 93 94 93 O2 Delivery Ventilator Ventilator Ventilator Ventilator 03/04/19 03/04/19 03/04/19 03/04/19 11:15 12:00 12:00 12:00 Temp 101.1 101.1 Pulse 84 Resp 14 14 B/P (MAP) 119/63 (81) Pulse Ox 95 96 O2 Delivery Ventilator Mechanical Ventilator Ventilator 03/04/19 03/04/19 03/04/19 03/04/19 12:33 12:45 13:00 13:33 Temp 98.4 98.4 Pulse 88 Resp 14 B/P (MAP) 103/57 (72) Pulse Ox 95 96 95 O2 Delivery Ventilator Ventilator Ventilator 03/04/19 03/04/19 03/04/19 03/04/19 14:00 14:54 15:00 16:00 Temp 100.0 100.0 Pulse 91 76 72 Resp 14 14 14 14 B/P (MAP) 110/53 (72) 116/62 (80) 119/68 (85) Pulse Ox 95 80 97 95 O2 Delivery Ventilator Ventilator Ventilator Ventilator 03/04/19 03/04/19 03/04/19 03/04/19 16:00 16:39 17:00 18:00 Pulse 75 80 Resp 14 14 B/P (MAP) 112/55 (74) 118/64 (82) Pulse Ox 96 97 96 O2 Delivery Mechanical Ventilator Ventilator Ventilator Ventilator 03/04/19 03/04/19 03/04/19 03/04/19 18:02 19:00 19:50 20:00 Temp 98.9 98.9 Pulse 75 73 Resp 14 14 B/P (MAP) 103/58 (73) 106/58 (74) Pulse Ox 95 95 95 O2 Delivery Ventilator Ventilator Mechanical Ventilator Ventilator 03/04/19 03/04/19 03/04/19 03/04/19 20:11 21:00 22:00 23:00 Pulse 76 88 96 Resp 14 14 14 B/P (MAP) 107/58 (74) 107/63 (78) 111/64 (80) Pulse Ox 95 93 92 94 O2 Delivery Ventilator Ventilator Ventilator Ventilator 03/04/19 03/05/19 03/05/19 03/05/19 23:46 00:00 00:00 01:00 Temp 100.3 100.3 Pulse 96 101 Resp 14 14 B/P (MAP) 121/70 (87) 113/72 (86) Pulse Ox 95 94 92 O2 Delivery Mechanical Ventilator Ventilator Ventilator Ventilator 03/05/19 03/05/19 03/05/19 03/05/19 02:00 02:39 03:00 04:00 Temp 101.2 101.2 Pulse 94 101 100 Resp 14 14 14 B/P (MAP) 131/79 (96) 146/84 (104) 156/81 (106) Pulse Ox 93 94 94 95 O2 Delivery Ventilator Ventilator Ventilator Ventilator 03/05/19 03/05/19 03/05/19 03/05/19 04:00 04:33 05:00 05:43 Pulse 88 Resp 14 B/P (MAP) 144/75 (98) Pulse Ox 95 96 95 O2 Delivery Mechanical Ventilator Ventilator Ventilator Ventilator 03/05/19 03/05/19 03/05/19 03/05/19 06:00 07:00 07:15 07:18 Temp 100.8 100.8 Pulse 82 77 Resp 14 14 14 B/P (MAP) 149/80 (103) 135/66 (89) Pulse Ox 94 94 94 94 O2 Delivery Ventilator Ventilator Ventilator Ventilator Intake and Output 03/04/19 03/04/19 03/05/19 14:59 22:59 06:59 Intake Total 980 ml 1252.96 ml 872 ml Output Total 1120 ml 1595 ml 360 ml Balance -140 ml -342.04 ml 512 ml MICHAEL BURRIS MD Mar 05, 2019 09:07
[2019-03-05] MEDS: INSULIN GLARGINE 300 UNITS/3 ML INSULN.PEN. SQ SCH ×2 (09:25→21:25)
--- NOTE | 2019-03-05 10:00 | NUR ---
RN notified Dr. Freed of distended abdomen, hypoactive bowel sounds. Order received to start Reglan. TF is currently off, will speak with starting gate driver and start TF later in shift. Order also received to insulin. Pupils have improved since yesterday's shift-- equal, reactive. Dr. Vinson called patient's sister, Mimi, who lives in [place]. Full code status remains active, family updated on patient's condition. No changes made to ventilator settings by Dr. Vinson at this time.
[2019-03-05] MEDS: METOCLOPRAMIDE HCL 10 MG/2 ML VIAL. IV SCH ×3 (11:35→21:23)
--- NOTE | 2019-03-05 13:23 | PDOC ---
PULMONARY PROGRESS NOTES Subjective SEDATED ON AC MODE, 80% FIO2/ 10 PEEP NO IMPROVEMENT IN OXYGENATION DESPITE DIURESIS Vitals Vital Signs Date Time Temp Pulse Resp B/P (MAP) Pulse Ox O2 Delivery O2 Flow Rate FiO2 03/05/19 13:00 84 14 102/66 (78) 95 Ventilator 03/05/19 12:00 99.7 99.7 Lungs: Other (decrease bs) Cardiovascular: S1, S2, Other (decrease bs) Abdomen: Other (OBESE) Extremities: Other (venous stasis left, right BKA) Skin: Warm Labs Laboratory Tests Test 03/03/19 15:23 03/04/19 04:52 03/04/19 09:20 03/04/19 14:20 Glucose (Fingerstick) 150 mg/dL (70-99) White Blood Count 5.1 x10^3/uL (4.0-11.0) Red Blood Count 4.33 x10^6/uL (4.30-5.70) Hemoglobin 13.0 g/dL (13.0-17.5) Hematocrit 41.1 % (39.0-53.0) Mean Corpuscular Volume 95 fL (79-100) Mean Corpuscular Hemoglobin 30 pg (25-35) Mean Corpuscular Hemoglobin Concent 32 g/dL (31-37) Red Cell Distribution Width 14.6 % (11.5-14.5) Platelet Count 187 x10^3/uL (140-400) Neutrophils (%) (Auto) 73 % (31-73) Lymphocytes (%) (Auto) 14 % (24-48) Monocytes (%) (Auto) 8 % (0-9) Eosinophils (%) (Auto) 4 % (0-3) Basophils (%) (Auto) 1 % (0-3) Neutrophils # (Auto) 3.8 x10^3uL (1.8-7.7) Lymphocytes # (Auto) 0.7 x10^3/uL (1.0-4.8) Monocytes # (Auto) 0.4 x10^3/uL (0.0-1.1) Eosinophils # (Auto) 0.2 x10^3/uL (0.0-0.7) Basophils # (Auto) 0.0 x10^3/uL (0.0-0.2) Sodium Level 146 mmol/L (136-145) 146 mmol/L (136-145) Potassium Level 4.1 mmol/L (3.5-5.1) 4.5 mmol/L (3.5-5.1) Chloride Level 106 mmol/L (98-107) 107 mmol/L (98-107) Carbon Dioxide Level 33 mmol/L (21-32) 33 mmol/L (21-32) Anion Gap 7 (6-14) 6 (6-14) Blood Urea Nitrogen 21 mg/dL (8-26) 22 mg/dL (8-26) Creatinine 1.5 mg/dL (0.7-1.3) 1.5 mg/dL (0.7-1.3) Estimated GFR (Cockcroft-Gault) 48.4 48.4 BUN/Creatinine Ratio 14 (6-20) 15 (6-20) Glucose Level 195 mg/dL (70-99) 188 mg/dL (70-99) Calcium Level 8.5 mg/dL (8.5-10.1) 8.4 mg/dL (8.5-10.1) Total Bilirubin 0.9 mg/dL (0.2-1.0) 0.8 mg/dL (0.2-1.0) Aspartate Amino Transf (AST/SGOT) 22 U/L (15-37) 21 U/L (15-37) Alanine Aminotransferase (ALT/SGPT) 21 U/L (16-63) 22 U/L (16-63) Alkaline Phosphatase 83 U/L (46-116) 77 U/L (46-116) Total Protein 6.7 g/dL (6.4-8.2) 6.4 g/dL (6.4-8.2) Albumin 2.4 g/dL (3.4-5.0) 2.2 g/dL (3.4-5.0) Albumin/Globulin Ratio 0.6 (1.0-1.7) 0.5 (1.0-1.7) Lipase 83 U/L (73-393) Procalcitonin 0.27 ng/mL (0.00-0.10) O2 Saturation 93 % (92-99) Arterial Blood pH 7.48 (7.35-7.45) Arterial Blood pCO2 at Patient Temp 42 mmHg (35-46) Arterial Blood pO2 at Patient Temp 65 mmHg (75-108) Arterial Blood HCO3 30 mmol/L (21-28) Arterial Blood Base Excess 6 mmol/L (-3-3) FiO2 80 Prothrombin Time 14.9 SEC (11.7-14.0) Prothromb Time International Ratio 1.2 (0.8-1.1) Magnesium Level 1.9 mg/dL (1.8-2.4) Test 03/05/19 05:31 03/05/19 05:35 03/05/19 07:20 03/05/19 12:14 Glucose (Fingerstick) 195 mg/dL (70-99) 202 mg/dL (70-99) White Blood Count 8.2 x10^3/uL (4.0-11.0) Red Blood Count 4.39 x10^6/uL (4.30-5.70) Hemoglobin 13.3 g/dL (13.0-17.5) Hematocrit 41.8 % (39.0-53.0) Mean Corpuscular Volume 95 fL (79-100) Mean Corpuscular Hemoglobin 30 pg (25-35) Mean Corpuscular Hemoglobin Concent 32 g/dL (31-37) Red Cell Distribution Width 14.5 % (11.5-14.5) Platelet Count 193 x10^3/uL (140-400) Neutrophils (%) (Auto) 83 % (31-73) Lymphocytes (%) (Auto) 5 % (24-48) Monocytes (%) (Auto) 8 % (0-9) Eosinophils (%) (Auto) 3 % (0-3) Basophils (%) (Auto) 0 % (0-3) Neutrophils # (Auto) 6.9 x10^3uL (1.8-7.7) Lymphocytes # (Auto) 0.4 x10^3/uL (1.0-4.8) Monocytes # (Auto) 0.6 x10^3/uL (0.0-1.1) Eosinophils # (Auto) 0.3 x10^3/uL (0.0-0.7) Basophils # (Auto) 0.0 x10^3/uL (0.0-0.2) Sodium Level 145 mmol/L (136-145) Potassium Level 5.3 mmol/L (3.5-5.1) Chloride Level 105 mmol/L (98-107) Carbon Dioxide Level 32 mmol/L (21-32) Anion Gap 8 (6-14) Blood Urea Nitrogen 27 mg/dL (8-26) Creatinine 1.8 mg/dL (0.7-1.3) Estimated GFR (Cockcroft-Gault) 39.2 BUN/Creatinine Ratio 15 (6-20) Glucose Level 198 mg/dL (70-99) Calcium Level 8.6 mg/dL (8.5-10.1) Phosphorus Level 5.0 mg/dL (2.6-4.7) Magnesium Level 2.0 mg/dL (1.8-2.4) Total Bilirubin 1.0 mg/dL (0.2-1.0) Aspartate Amino Transf (AST/SGOT) 29 U/L (15-37) Alanine Aminotransferase (ALT/SGPT) 24 U/L (16-63) Alkaline Phosphatase 83 U/L (46-116) Total Protein 7.1 g/dL (6.4-8.2) Albumin 2.4 g/dL (3.4-5.0) Albumin/Globulin Ratio 0.5 (1.0-1.7) O2 Saturation 94 % (92-99) Arterial Blood pH 7.35 (7.35-7.45) Arterial Blood pCO2 at Patient Temp 61 mmHg (35-46) Arterial Blood pO2 at Patient Temp 75 mmHg (75-108) Arterial Blood HCO3 33 mmol/L (21-28) Arterial Blood Base Excess 5 mmol/L (-3-3) FiO2 80 Laboratory Tests Test 03/04/19 14:20 03/05/19 05:31 03/05/19 05:35 03/05/19 07:20 Prothrombin Time 14.9 SEC (11.7-14.0) Prothromb Time International Ratio 1.2 (0.8-1.1) Sodium Level 146 mmol/L (136-145) 145 mmol/L (136-145) Potassium Level 4.5 mmol/L (3.5-5.1) 5.3 mmol/L (3.5-5.1) Chloride Level 107 mmol/L (98-107) 105 mmol/L (98-107) Carbon Dioxide Level 33 mmol/L (21-32) 32 mmol/L (21-32) Anion Gap 6 (6-14) 8 (6-14) Blood Urea Nitrogen 22 mg/dL (8-26) 27 mg/dL (8-26) Creatinine 1.5 mg/dL (0.7-1.3) 1.8 mg/dL (0.7-1.3) Estimated GFR (Cockcroft-Gault) 48.4 39.2 BUN/Creatinine Ratio 15 (6-20) 15 (6-20) Glucose Level 188 mg/dL (70-99) 198 mg/dL (70-99) Calcium Level 8.4 mg/dL (8.5-10.1) 8.6 mg/dL (8.5-10.1) Magnesium Level 1.9 mg/dL (1.8-2.4) 2.0 mg/dL (1.8-2.4) Total Bilirubin 0.8 mg/dL (0.2-1.0) 1.0 mg/dL (0.2-1.0) Aspartate Amino Transf (AST/SGOT) 21 U/L (15-37) 29 U/L (15-37) Alanine Aminotransferase (ALT/SGPT) 22 U/L (16-63) 24 U/L (16-63) Alkaline Phosphatase 77 U/L (46-116) 83 U/L (46-116) Total Protein 6.4 g/dL (6.4-8.2) 7.1 g/dL (6.4-8.2) Albumin 2.2 g/dL (3.4-5.0) 2.4 g/dL (3.4-5.0) Albumin/Globulin Ratio 0.5 (1.0-1.7) 0.5 (1.0-1.7) Glucose (Fingerstick) 195 mg/dL (70-99) White Blood Count 8.2 x10^3/uL (4.0-11.0) Red Blood Count 4.39 x10^6/uL (4.30-5.70) Hemoglobin 13.3 g/dL (13.0-17.5) Hematocrit 41.8 % (39.0-53.0) Mean Corpuscular Volume 95 fL (79-100) Mean Corpuscular Hemoglobin 30 pg (25-35) Mean Corpuscular Hemoglobin Concent 32 g/dL (31-37) Red Cell Distribution Width 14.5 % (11.5-14.5) Platelet Count 193 x10^3/uL (140-400) Neutrophils (%) (Auto) 83 % (31-73) Lymphocytes (%) (Auto) 5 % (24-48) Monocytes (%) (Auto) 8 % (0-9) Eosinophils (%) (Auto) 3 % (0-3) Basophils (%) (Auto) 0 % (0-3) Neutrophils # (Auto) 6.9 x10^3uL (1.8-7.7) Lymphocytes # (Auto) 0.4 x10^3/uL (1.0-4.8) Monocytes # (Auto) 0.6 x10^3/uL (0.0-1.1) Eosinophils # (Auto) 0.3 x10^3/uL (0.0-0.7) Basophils # (Auto) 0.0 x10^3/uL (0.0-0.2) Phosphorus Level 5.0 mg/dL (2.6-4.7) O2 Saturation 94 % (92-99) Arterial Blood pH 7.35 (7.35-7.45) Arterial Blood pCO2 at Patient Temp 61 mmHg (35-46) Arterial Blood pO2 at Patient Temp 75 mmHg (75-108) Arterial Blood HCO3 33 mmol/L (21-28) Arterial Blood Base Excess 5 mmol/L (-3-3) FiO2 80 Test 03/05/19 12:14 Glucose (Fingerstick) 202 mg/dL (70-99) Medications Active Scripts Medications Dose Route/Sig Max Daily Dose Days Date Category Proair Hfa Inhaler (Albuterol Sulfate) 8.5 Gm Hfa.aer.ad 1 Puff INH PRN Q6HRS PRN 02/27/19 Reported Lantus Solostar (Insulin Glargine,Hum.rec.anlog) 100 Unit/1 Ml Insuln.pen 20 Unit SQ QHS 02/27/19 Reported Humalog (Insulin Lispro) 100 Unit/1 Ml Cartridge 6 Unit SQ TIDWMEALS 02/27/19 Reported Doxazosin Mesylate 2 Mg Tablet 2 Mg PO DAILY 02/27/19 Reported Omeprazole 40 Mg Capsule.dr 40 Mg PO DAILY 02/27/19 Reported Amlodipine Besylate 10 Mg Tablet 10 Mg PO DAILY 02/27/19 Reported Atorvastatin Calcium 20 Mg Tablet 20 Mg PO DAILY 02/27/19 Reported Atenolol 50 Mg Tablet 50 Mg PO DAILY 02/27/19 Reported Losartan Potassium 100 Mg Tablet 100 Mg PO DAILY 02/27/19 Reported Aspirin 81 Mg Tab.chew 81 Mg PO DAILY 02/27/19 Reported Glyburide 5 Mg Tablet 1 Tab PO BID 11/09/16 Reported Comments CXR 03/04 persistent bilateral infiltrates Impression . 1. Acute hypoxemic /hypercapnic respiratory failure./ NOW IN ARDS 2. Suspected sepsis./ ARDS clinically 3. In-house cardiopulmonary arrest. 4. Normal EF / mild Pulmonary HTN 5. Acute on chronic right-sided heart failure. 6. Possible pneumonia. 7. Morbid obesity. 8. Diabetes. 9. ANASARCA 10. Abnormal CXR <Conclusion>ECHO The left ventricular systolic function is normal. The ejection fraction is 60-65%. There is normal LV segmental wall motion. Transmitral Doppler flow pattern is Grade I-abnormal relaxation pattern. Trace tricuspid regurgitation. Estimated PAP 33-38 mmHg. There is no evidence of significant pericardial effusion. VENOUS 02/28 Impression: 1. There is no evidence of deep venous thrombosis from the bilateral common femoral to popliteal veins. 2. There is nonspecific right groin lymph node. Plan . AC MODE 80% PEEP of 10/ CONTINUE HIGH FLOW OXYGEN NOT READY FOR ANY WEANING WILL CONTINUE SUPPORT ANITBX PER ID EXTRA Diuresis 1. Continue support with assist control ventilation, 2. Empiric antibiotics. 3. Bilateral venous Dopplers of lower extremities.NEG 4. DVT and GI prophylaxis. 5. Follow Nephrology, Cardiology.rec 6. Enteral nutrition 7. Prognosis guarded 8. Follow cxr/ ET position ok 9. d/w renal. may now have some contraction alkalosis.monitor renal function while on lasix d/w RN/ RT and patients sister in [place] again today. Prognosis explained. code status discussed. she prefers full code cct 30 min ALEJANDRINA WILBURN MD Mar 05, 2019 13:23
--- NOTE | 2019-03-05 16:30 | NUR ---
Rounded, purulent pustule-like rash found on patient when bathing him. It's reddened and blister-like under each armpit, partially on his back, onto rib-cage, and slightly extends to groin area bilaterally. RN paged I.D. to notify. This was not on patient during morning assessment or seen when patient was turned throughout shift. Will continue to monitor and notify appropriate M.D.
--- NOTE | 2019-03-05 20:40 | NUR ---
Dr. Amador notified about rash on patient's side/back region. No new orders received at this time, will reassess in the morning.
[2019-03-06] VITALS (24 sets, daily range): BP systolic 92–165; BP diastolic 54–93
--- NOTE | 2019-03-06 00:41 | NUR ---
Patient's heart rate in 150s-160s since bath. Gave sedation boluses but heart rate continued to be high. Dr. René macdonald, page returned. Orders received to give 500 cc NS bolus, give 0.5 mg of Digoxin now and repeat dose in 6 hours if needed, and give 5 mg IV Metoprolol now and repeat in 30 minutes if heart rate does not respond to initial dose.
[2019-03-06] MEDS ORDERED: METOPROLOL TARTRATE 5 MG/5 ML VIAL. IVP ONE ×2 (00:45→15:15)
[2019-03-06] MEDS ORDERED: DIGOXIN IV 500 MCG/2 ML AMPUL. IV ONE ×2 (00:45→22:00)
[2019-03-06] MEDS ORDERED: IV NORMAL SALINE 500ML BAG 500 ML IV ONE (00:45)
[2019-03-06 05:37] LABS: BASO % 0 % (0-3); EOS # 0.2 x10^3/uL (0.0-0.7); EOS % 3 % (0-3); HEMATOCRIT 39.2 % (39.0-53.0); HEMOGLOBIN 12.5 g/dL (13.0-17.5); LYMPH # 0.4 x10^3/uL (1.0-4.8); LYMPH % 5 % (24-48); MEAN CORPUSCULAR HEMOGLOBIN 30 pg (25-35); MEAN CORPUSCULAR HGB CONC 32 g/dL (31-37); MEAN CORPUSCULAR VOLUME 95 fL (79-100); MONO # 0.7 x10^3/uL (0.0-1.1); MONO % 8 % (0-9); NEUT # 7.1 x10^3uL (1.8-7.7); NEUT % 84 % (31-73); PLATELET COUNT 178 x10^3/uL (140-400); RED BLOOD COUNT 4.12 x10^6/uL (4.30-5.70); RED CELL DISTRIBUTION WIDTH 14.3 % (11.5-14.5); WHITE BLOOD COUNT 8.5 x10^3/uL (4.0-11.0)
[2019-03-06] MEDS: CEFEPIME HCL IV Push 2 GM VIAL. IVP SCH ×3 (05:58→21:32)
[2019-03-06 06:01] LABS: CALCIUM 8.3 mg/dL (8.5-10.1); GFR 34.7; POTASSIUM 5.1 mmol/L (3.5-5.1)
[2019-03-06] MEDS: HEPARIN for SUB-Q USE 5,000 UNIT/ML VIAL. SQ SCH ×3 (06:03→21:33)
--- NOTE | 2019-03-06 06:44 | PDOC ---
Infectious Disease Note Subjective Subjective intubated/sedated ROS ROS unable to obtain Vital Sign Vital Signs Vital Signs Date Time Temp Pulse Resp B/P (MAP) Pulse Ox O2 Delivery O2 Flow Rate FiO2 03/06/19 06:00 74 19 165/77 (106) 96 Ventilator 03/06/19 04:00 99.6 99.6 Physical Exam PHYSICAL EXAM GENERAL: Sedated and intubated. HEENT: pupils equal, nml conj. resists eye opening. ETT. OGT NECK: Supple. LUNGS: Decreased in bases HEART: S1, S2. ABDOMEN: Distended with decreased bowel sounds. mildly more firm today GENITOURINARY: [place] - He has 3+ scrotal swelling with less erythema. No gross warmth. EXTREMITIES: No clubbing, cyanosis with 2 + edema. Generalized anasarca. RLE stump with chronic wound. No erythema/fluctuance/warmth SKIN: Warm to touch without signs of generalized rash. CONSTRUCTION ACCOUNTANT: Unresponsive except resisted some when pupils examined/sedated IV: RIJ clean SKIN: bilateral flank macularpapular rash and in left groin Labs Lab Laboratory Tests Test 03/05/19 07:20 03/05/19 12:14 03/05/19 21:22 03/06/19 04:45 O2 Saturation 94 % (92-99) Arterial Blood pH 7.35 (7.35-7.45) Arterial Blood pCO2 at Patient Temp 61 mmHg (35-46) Arterial Blood pO2 at Patient Temp 75 mmHg (75-108) Arterial Blood HCO3 33 mmol/L (21-28) Arterial Blood Base Excess 5 mmol/L (-3-3) FiO2 80 Glucose (Fingerstick) 202 mg/dL (70-99) 162 mg/dL (70-99) White Blood Count 8.5 x10^3/uL (4.0-11.0) Red Blood Count 4.12 x10^6/uL (4.30-5.70) Hemoglobin 12.5 g/dL (13.0-17.5) Hematocrit 39.2 % (39.0-53.0) Mean Corpuscular Volume 95 fL (79-100) Mean Corpuscular Hemoglobin 30 pg (25-35) Mean Corpuscular Hemoglobin Concent 32 g/dL (31-37) Red Cell Distribution Width 14.3 % (11.5-14.5) Platelet Count 178 x10^3/uL (140-400) Neutrophils (%) (Auto) 84 % (31-73) Lymphocytes (%) (Auto) 5 % (24-48) Monocytes (%) (Auto) 8 % (0-9) Eosinophils (%) (Auto) 3 % (0-3) Basophils (%) (Auto) 0 % (0-3) Neutrophils # (Auto) 7.1 x10^3uL (1.8-7.7) Lymphocytes # (Auto) 0.4 x10^3/uL (1.0-4.8) Monocytes # (Auto) 0.7 x10^3/uL (0.0-1.1) Eosinophils # (Auto) 0.2 x10^3/uL (0.0-0.7) Basophils # (Auto) 0.0 x10^3/uL (0.0-0.2) Sodium Level 144 mmol/L (136-145) Potassium Level 5.1 mmol/L (3.5-5.1) Chloride Level 105 mmol/L (98-107) Carbon Dioxide Level 33 mmol/L (21-32) Anion Gap 6 (6-14) Blood Urea Nitrogen 36 mg/dL (8-26) Creatinine 2.0 mg/dL (0.7-1.3) Estimated GFR (Cockcroft-Gault) 34.7 Glucose Level 215 mg/dL (70-99) Calcium Level 8.3 mg/dL (8.5-10.1) Micro CT IMPRESSION: 1. Mild nonspecific perinephric stranding with slight asymmetric stranding adjacent to the left renal pelvis. Findings may be due to chronic kidney disease, though ascending urinary tract infection is not excluded. 2. Bilateral lower lobe consolidation concerning for multifocal pneumonia or pneumonitis with aspiration not excluded. 3. Right renal hypodensity measuring 2.5 cm is incompletely evaluated on noncontrast examination. Follow-up MRI or CT abdomen and pelvis renal protocol with contrast is recommended for further evaluation. 4. Anasarca. 5. Mild bilateral external iliac lymphadenopathy, may be reactive, though follow-up CT abdomen and pelvis in 3 months is recommended to assess for stability/resolution. 6. Nonobstructive left nephrolithiasis. 7. Coronary artery calcifications. Microbiology 3/30/19 Blood Culture - Preliminary, Resulted NO GROWTH AFTER 1 DAY Objective Assessment Fever - ? Infection vs ileus vs drug reaction Flank rash - no Eosinophilia but ? drug - had been on micafungin so less likely yeast Tachycardia - s/p Bolus/Digoxin and Metoprolol Increased GI residuals - Has been on/off ? Ileus vs DM gastroparesis Acute respiratory failure, intubated, increased infiltrates today - ARDS Scrotal edema/cellulitis. Status post code. Fluid overload - mild increase Acute kidney injury - worse Distant history of group B strep, Acinetobacter, Porphyromonas, plus anaerobes. Plan Plan of Care Recultured blood and sputum 03/05. Urine just checked 03/02 Rash present slightly per nursing evening 03/04 into 03/05. Cefepime/Flagyl began 03/05 post rash Discont Meropenem 03/05 restarted Zyvox 03/05 after stopping 03/04- Avoided Vanc with LEONARD - but since he had been on it while rash started will d/c today Discont Micafungin 03/05 as not improved despite getting it Add nystatin Would check other meds as potential for rash ? lasix, etc Check urine eosinophils May need additional imaging F/u labs/cults in am D/w nursing Critically ill QUIANA PACK MD Mar 06, 2019 06:44
[2019-03-06] MEDS: MIDAZOLAM 100mg/100ml NS BAG 100 ML IV PRN ×2 (07:11→18:19)
[2019-03-06] MEDS: METOCLOPRAMIDE HCL 10 MG/2 ML VIAL. IV SCH ×4 (07:14→20:43)
--- NOTE | 2019-03-06 07:50 | NUR ---
Notified Dr. Freed that patient has still not had BM, stomach is distended, hypoactive bowel sounds, facial grimacing when RN palpates abdomen. Order received for 1/2 bottle of Golytely to go through OG tube. Dr. Amador rounded on patient and assessed rash on trunk, groin. Orders received to stop Zyvox, Nystatin ordered. Will continue to monitor. See assessments, VS.
[2019-03-06] MEDS ORDERED: PEG 3350/NA SULF,BICARB,CL/KCL 4,000 ML SOLUTION. PO ONE (08:00)
[2019-03-06 08:17] LABS: BASE EXCESS ABG 5 mmol/L (-3-3); HCO3 ABG 33 mmol/L (21-28); PO2 ABG 73 mmHg (75-108); SAT O2 ABG 94 % (92-99)
[2019-03-06] MEDS: IPRATRPIUM/ALBUTEROL 0.5/2.5MG 3 ML NEBU. NEB SCH ×4 (08:18→20:21)
--- NOTE | 2019-03-06 08:19 | NUR ---
SHIREEN CORTES has no open wound. Consulting farrowing manager for prophylaxis and rash on trunk. Chronic dry, scarred area on stump. Nystatin cream ordered by I.D. for rash.
[2019-03-06 08:34] LABS: PCO2 ABG 62 mmHg (35-46)
[2019-03-06 08:35] LABS: FIO2 ABG 80
[2019-03-06] MEDS: FUROSEMIDE 40 MG/4 ML VIAL. IVP SCH (08:38)
[2019-03-06] MEDS: FAMOTIDINE 20 MG/2 ML VIAL IVP SCH ×2 (08:38→20:43)
[2019-03-06] MEDS: NYSTATIN 100,000 UNIT/GM TOPICAL CREAM 15GM TUBE. TP SCH ×2 (08:51→20:43)
[2019-03-06] MEDS: INSULIN GLARGINE 300 UNITS/3 ML INSULN.PEN. SQ SCH ×2 (08:51→20:48)
--- NOTE | 2019-03-06 08:57 | PDOC ---
PROGRESS NOTES Chief Complaint Chief Complaint Assessment/Plan ACUTE RESP ARREST POST CODE ON FLOOR 02/27 Acute respiratory failure secondary to congestive heart failure, most probably acute on chronic diastolic. s/p intubation. Myocardial infarction ruled out. Hypernatremia secondary to severe dehydration will need to provide water flushes in order to correct electrolyte disturbance. High residuals on tube feedings no evidence of obstructive pattern on x ray done 03/05/2019 3 weeks of bilateral general scrotal swelling and tenderness. +dyspnea, abd swelling, leg swelling. POA, Dm2 obesity, extreme, morbid hx RLE BKA RLE stump with chronic wound. No erythema/warmth left foot nail onychomycosis needs attention when more clinically stable Acute renal failure ATN Renal CONSULT 3.1-1.8 chronic venous insuff left lower leg nonspecific perinephric stranding with slight asymmetric stranding adjacent to the left renal pelvis. Findings may be due to chronic kidney disease, though ascending urinary tract infection is not excluded. Bilateral lower lobe consolidation concerning for multifocal pneumonia aspiration not excluded. Right renal hypodensity measuring 2.5 cm is incompletely evaluated on noncontrast examination. Follow-up MRI or CT abdomen and pelvis renal protocol with contrast is recommended for further evaluation. Anasarca. bilateral external iliac lymphadenopathy, may be reactive, though follow-up CT abdomen and pelvis in 3 months is recommended to assess for stability/resolution. Nonobstructive left nephrolithiasis. Coronary artery calcifications. The left ventricular systolic function is normal.ejection fraction is 60-65% .normal LV segmental wall motion. Transmitral Doppler flow pattern is Grade I-abnormal relaxation pattern. Trace tricuspid regurgitation. Estimated PAP 33-38 mmHg. PLAN GoLYTELY Altered feedings may restart once we have bowel movement and less residuals INTUBATED // IN ICU VENT SUPPORT PULM CONSULT recommendations greatly appreciated CARDIOLOGY CONSULT UROLOGY CONSULT reviewed no intervention needed except for elevation and diuresis ID CONSULT IV Meropenem cont Zyvox - Avoid Vanc with LEONARD IV Micafungin has been discontinued lactic acid/BNP follow ECHO noted PROCALCITONIN with normal results. CT ABD/ PELVIS reviewed 1. Mild nonspecific perinephric stranding with slight asymmetric stranding adjacent to the left renal pelvis. Findings may be due to chronic kidney disease, though ascending urinary tract infection is not excluded. 2. Bilateral lower lobe consolidation concerning for multifocal pneumonia or pneumonitis with aspiration not excluded. 3. Right renal hypodensity measuring 2.5 cm is incompletely evaluated on noncontrast examination. Follow-up MRI or CT abdomen and pelvis renal protocol with contrast is recommended for further evaluation. 4. Anasarca. 5. Mild bilateral external iliac lymphadenopathy, may be reactive, though follow-up CT abdomen and pelvis in 3 months is recommended to assess for stability/resolution. 6. Nonobstructive left nephrolithiasis. 7. Coronary artery calcifications. History of Present Illness History of Present Illness Patient with no acute events reported overnight. Patient very distended and seems to have severe constipation no bowel movements residuals remain high from tube feedings Continues to be critically ill but seems to be stable at the present time. Discussed with nursing staff at bedside Vitals Vitals Vital Signs Date Time Temp Pulse Resp B/P (MAP) Pulse Ox O2 Delivery O2 Flow Rate FiO2 03/06/19 08:19 94 Ventilator 03/06/19 08:00 99.1 73 14 132/68 (89) 99.1 Physical Exam Physical Exam GENERAL: Sedated and intubated. HEENT: pupils equal, nml conj. resists eye opening. ETT. OGT NECK: Supple. LUNGS: Decreased in bases HEART: S1, S2. ABDOMEN: Distended with decreased bowel sounds. mildly more firm today GENITOURINARY: [place] - He has 3+ scrotal swelling with less erythema. No gross warmth. EXTREMITIES: No clubbing, cyanosis with 2 + edema. Generalized anasarca. RLE stump with chronic wound. No erythema/fluctuance/warmth SKIN: Warm to touch without signs of generalized rash. ED TEACHER: Unresponsive except resisted some when pupils examined/sedated IV: RIJ clean SKIN: bilateral flank macularpapular rash and in left groin General: Other (SEDATED) Heart: Regular rate, Normal S1, Normal S2, No murmurs, Gallops Lungs: Other (decrease bs) Abdomen: Soft, No tenderness, Other (VERY OBESE) Extremities: No cyanosis, Other (ANASARCA) Skin: Other (scale, lower leg ) Labs LABS Laboratory Tests Test 03/05/19 12:14 03/05/19 21:22 03/06/19 04:45 03/06/19 07:51 Glucose (Fingerstick) 202 mg/dL (70-99) 162 mg/dL (70-99) 208 mg/dL (70-99) White Blood Count 8.5 x10^3/uL (4.0-11.0) Red Blood Count 4.12 x10^6/uL (4.30-5.70) Hemoglobin 12.5 g/dL (13.0-17.5) Hematocrit 39.2 % (39.0-53.0) Mean Corpuscular Volume 95 fL (79-100) Mean Corpuscular Hemoglobin 30 pg (25-35) Mean Corpuscular Hemoglobin Concent 32 g/dL (31-37) Red Cell Distribution Width 14.3 % (11.5-14.5) Platelet Count 178 x10^3/uL (140-400) Neutrophils (%) (Auto) 84 % (31-73) Lymphocytes (%) (Auto) 5 % (24-48) Monocytes (%) (Auto) 8 % (0-9) Eosinophils (%) (Auto) 3 % (0-3) Basophils (%) (Auto) 0 % (0-3) Neutrophils # (Auto) 7.1 x10^3uL (1.8-7.7) Lymphocytes # (Auto) 0.4 x10^3/uL (1.0-4.8) Monocytes # (Auto) 0.7 x10^3/uL (0.0-1.1) Eosinophils # (Auto) 0.2 x10^3/uL (0.0-0.7) Basophils # (Auto) 0.0 x10^3/uL (0.0-0.2) Sodium Level 144 mmol/L (136-145) Potassium Level 5.1 mmol/L (3.5-5.1) Chloride Level 105 mmol/L (98-107) Carbon Dioxide Level 33 mmol/L (21-32) Anion Gap 6 (6-14) Blood Urea Nitrogen 36 mg/dL (8-26) Creatinine 2.0 mg/dL (0.7-1.3) Estimated GFR (Cockcroft-Gault) 34.7 Glucose Level 215 mg/dL (70-99) Calcium Level 8.3 mg/dL (8.5-10.1) Magnesium Level 2.1 mg/dL (1.8-2.4) Test 03/06/19 08:00 O2 Saturation 94 % (92-99) Arterial Blood pH 7.35 (7.35-7.45) Arterial Blood pCO2 at Patient Temp 62 mmHg (35-46) Arterial Blood pO2 at Patient Temp 73 mmHg (75-108) Arterial Blood HCO3 33 mmol/L (21-28) Arterial Blood Base Excess 5 mmol/L (-3-3) FiO2 80 Assessment and Plan Assessmemt and Plan Problems Medical Problems: (1) Acute renal failure Status: Acute (2) Edema Status: Acute (3) Shortness of breath Status: Acute Comment Review of Relevant I have reviewed the following items pascual (where applicable) has been applied. Labs Laboratory Tests Test 03/04/19 09:20 03/04/19 14:20 03/05/19 05:31 03/05/19 05:35 O2 Saturation 93 % (92-99) Arterial Blood pH 7.48 (7.35-7.45) Arterial Blood pCO2 at Patient Temp 42 mmHg (35-46) Arterial Blood pO2 at Patient Temp 65 mmHg (75-108) Arterial Blood HCO3 30 mmol/L (21-28) Arterial Blood Base Excess 6 mmol/L (-3-3) FiO2 80 Prothrombin Time 14.9 SEC (11.7-14.0) Prothromb Time International Ratio 1.2 (0.8-1.1) Sodium Level 146 mmol/L (136-145) 145 mmol/L (136-145) Potassium Level 4.5 mmol/L (3.5-5.1) 5.3 mmol/L (3.5-5.1) Chloride Level 107 mmol/L (98-107) 105 mmol/L (98-107) Carbon Dioxide Level 33 mmol/L (21-32) 32 mmol/L (21-32) Anion Gap 6 (6-14) 8 (6-14) Blood Urea Nitrogen 22 mg/dL (8-26) 27 mg/dL (8-26) Creatinine 1.5 mg/dL (0.7-1.3) 1.8 mg/dL (0.7-1.3) Estimated GFR (Cockcroft-Gault) 48.4 39.2 BUN/Creatinine Ratio 15 (6-20) 15 (6-20) Glucose Level 188 mg/dL (70-99) 198 mg/dL (70-99) Calcium Level 8.4 mg/dL (8.5-10.1) 8.6 mg/dL (8.5-10.1) Magnesium Level 1.9 mg/dL (1.8-2.4) 2.0 mg/dL (1.8-2.4) Total Bilirubin 0.8 mg/dL (0.2-1.0) 1.0 mg/dL (0.2-1.0) Aspartate Amino Transf (AST/SGOT) 21 U/L (15-37) 29 U/L (15-37) Alanine Aminotransferase (ALT/SGPT) 22 U/L (16-63) 24 U/L (16-63) Alkaline Phosphatase 77 U/L (46-116) 83 U/L (46-116) Total Protein 6.4 g/dL (6.4-8.2) 7.1 g/dL (6.4-8.2) Albumin 2.2 g/dL (3.4-5.0) 2.4 g/dL (3.4-5.0) Albumin/Globulin Ratio 0.5 (1.0-1.7) 0.5 (1.0-1.7) Glucose (Fingerstick) 195 mg/dL (70-99) White Blood Count 8.2 x10^3/uL (4.0-11.0) Red Blood Count 4.39 x10^6/uL (4.30-5.70) Hemoglobin 13.3 g/dL (13.0-17.5) Hematocrit 41.8 % (39.0-53.0) Mean Corpuscular Volume 95 fL (79-100) Mean Corpuscular Hemoglobin 30 pg (25-35) Mean Corpuscular Hemoglobin Concent 32 g/dL (31-37) Red Cell Distribution Width 14.5 % (11.5-14.5) Platelet Count 193 x10^3/uL (140-400) Neutrophils (%) (Auto) 83 % (31-73) Lymphocytes (%) (Auto) 5 % (24-48) Monocytes (%) (Auto) 8 % (0-9) Eosinophils (%) (Auto) 3 % (0-3) Basophils (%) (Auto) 0 % (0-3) Neutrophils # (Auto) 6.9 x10^3uL (1.8-7.7) Lymphocytes # (Auto) 0.4 x10^3/uL (1.0-4.8) Monocytes # (Auto) 0.6 x10^3/uL (0.0-1.1) Eosinophils # (Auto) 0.3 x10^3/uL (0.0-0.7) Basophils # (Auto) 0.0 x10^3/uL (0.0-0.2) Phosphorus Level 5.0 mg/dL (2.6-4.7) Test 03/05/19 07:20 03/05/19 12:14 03/05/19 21:22 03/06/19 04:45 O2 Saturation 94 % (92-99) Arterial Blood pH 7.35 (7.35-7.45) Arterial Blood pCO2 at Patient Temp 61 mmHg (35-46) Arterial Blood pO2 at Patient Temp 75 mmHg (75-108) Arterial Blood HCO3 33 mmol/L (21-28) Arterial Blood Base Excess 5 mmol/L (-3-3) FiO2 80 Glucose (Fingerstick) 202 mg/dL (70-99) 162 mg/dL (70-99) White Blood Count 8.5 x10^3/uL (4.0-11.0) Red Blood Count 4.12 x10^6/uL (4.30-5.70) Hemoglobin 12.5 g/dL (13.0-17.5) Hematocrit 39.2 % (39.0-53.0) Mean Corpuscular Volume 95 fL (79-100) Mean Corpuscular Hemoglobin 30 pg (25-35) Mean Corpuscular Hemoglobin Concent 32 g/dL (31-37) Red Cell Distribution Width 14.3 % (11.5-14.5) Platelet Count 178 x10^3/uL (140-400) Neutrophils (%) (Auto) 84 % (31-73) Lymphocytes (%) (Auto) 5 % (24-48) Monocytes (%) (Auto) 8 % (0-9) Eosinophils (%) (Auto) 3 % (0-3) Basophils (%) (Auto) 0 % (0-3) Neutrophils # (Auto) 7.1 x10^3uL (1.8-7.7) Lymphocytes # (Auto) 0.4 x10^3/uL (1.0-4.8) Monocytes # (Auto) 0.7 x10^3/uL (0.0-1.1) Eosinophils # (Auto) 0.2 x10^3/uL (0.0-0.7) Basophils # (Auto) 0.0 x10^3/uL (0.0-0.2) Sodium Level 144 mmol/L (136-145) Potassium Level 5.1 mmol/L (3.5-5.1) Chloride Level 105 mmol/L (98-107) Carbon Dioxide Level 33 mmol/L (21-32) Anion Gap 6 (6-14) Blood Urea Nitrogen 36 mg/dL (8-26) Creatinine 2.0 mg/dL (0.7-1.3) Estimated GFR (Cockcroft-Gault) 34.7 Glucose Level 215 mg/dL (70-99) Calcium Level 8.3 mg/dL (8.5-10.1) Magnesium Level 2.1 mg/dL (1.8-2.4) Test 03/06/19 07:51 03/06/19 08:00 Glucose (Fingerstick) 208 mg/dL (70-99) O2 Saturation 94 % (92-99) Arterial Blood pH 7.35 (7.35-7.45) Arterial Blood pCO2 at Patient Temp 62 mmHg (35-46) Arterial Blood pO2 at Patient Temp 73 mmHg (75-108) Arterial Blood HCO3 33 mmol/L (21-28) Arterial Blood Base Excess 5 mmol/L (-3-3) FiO2 80 Laboratory Tests Test 03/05/19 12:14 03/05/19 21:22 03/06/19 04:45 03/06/19 07:51 Glucose (Fingerstick) 202 mg/dL (70-99) 162 mg/dL (70-99) 208 mg/dL (70-99) White Blood Count 8.5 x10^3/uL (4.0-11.0) Red Blood Count 4.12 x10^6/uL (4.30-5.70) Hemoglobin 12.5 g/dL (13.0-17.5) Hematocrit 39.2 % (39.0-53.0) Mean Corpuscular Volume 95 fL (79-100) Mean Corpuscular Hemoglobin 30 pg (25-35) Mean Corpuscular Hemoglobin Concent 32 g/dL (31-37) Red Cell Distribution Width 14.3 % (11.5-14.5) Platelet Count 178 x10^3/uL (140-400) Neutrophils (%) (Auto) 84 % (31-73) Lymphocytes (%) (Auto) 5 % (24-48) Monocytes (%) (Auto) 8 % (0-9) Eosinophils (%) (Auto) 3 % (0-3) Basophils (%) (Auto) 0 % (0-3) Neutrophils # (Auto) 7.1 x10^3uL (1.8-7.7) Lymphocytes # (Auto) 0.4 x10^3/uL (1.0-4.8) Monocytes # (Auto) 0.7 x10^3/uL (0.0-1.1) Eosinophils # (Auto) 0.2 x10^3/uL (0.0-0.7) Basophils # (Auto) 0.0 x10^3/uL (0.0-0.2) Sodium Level 144 mmol/L (136-145) Potassium Level 5.1 mmol/L (3.5-5.1) Chloride Level 105 mmol/L (98-107) Carbon Dioxide Level 33 mmol/L (21-32) Anion Gap 6 (6-14) Blood Urea Nitrogen 36 mg/dL (8-26) Creatinine 2.0 mg/dL (0.7-1.3) Estimated GFR (Cockcroft-Gault) 34.7 Glucose Level 215 mg/dL (70-99) Calcium Level 8.3 mg/dL (8.5-10.1) Magnesium Level 2.1 mg/dL (1.8-2.4) Test 03/06/19 08:00 O2 Saturation 94 % (92-99) Arterial Blood pH 7.35 (7.35-7.45) Arterial Blood pCO2 at Patient Temp 62 mmHg (35-46) Arterial Blood pO2 at Patient Temp 73 mmHg (75-108) Arterial Blood HCO3 33 mmol/L (21-28) Arterial Blood Base Excess 5 mmol/L (-3-3) FiO2 80 Microbiology 03/05/19 Blood Culture - Preliminary, Resulted NO GROWTH AFTER 1 DAY 03/02/19 Urine Culture - Final, Complete 03/02/19 Urine Culture Result 1 (LUCIO) - Final, Complete Medications Current Medications Ondansetron HCl (Zofran) 4 mg PRN Q8HRS PRN IV NAUSEA/VOMITING; Start 02/27/19 at 16:45; Stop 02/28/19 at 16:44; Status DC Morphine Sulfate (Morphine Sulfate) 2 mg PRN Q2HR PRN IV PAIN; Start 02/27/19 at 16:45; Stop 02/28/19 at 16:44; Status DC Acetaminophen (Tylenol) 650 mg PRN Q4HRS PRN PO FEVER Last administered on 02/27at 21:06; Start 02/27/19 at 16:45; Stop 02/28/19 at 16:44; Status DC Dextrose (Dextrose 50%-Water Syringe) 12.5 gm PRN Q15MIN PRN IV SEE COMMENTS; Start 02/27/19 at 16:45 Heparin Sodium (Porcine) (Heparin Sodium) 5,000 unit Q8HRS SQ Last administered on 03/06/19at 06:03; Start 02/27/19 at 17:00 Lorazepam (Ativan) 1 mg PRN Q8HRS PRN IV ANXIETY / AGITATION Last administered on 03/05/19at 22:50; Start 02/28/19 at 02:45 Etomidate (Amidate) 20 mg STK-MED ONCE IV ; Start 02/28/19 at 06:59; Stop at 07:00; Status DC Rocuronium Stryker (Zemuron) 50 mg STK-MED ONCE .ROUTE ; Start 02/28/19 at 07:00 ; Stop 02/28/19 at 09:42; Status DC Dopamine HCl/ Dextrose 250 ml @ 12.266 mls/ hr CONT PRN IV SEE I/O RECORD Last administered on 02/28/19at 08:06; Start 02/28/19 at 07:15 Fentanyl Citrate 30 ml @ 0 mls/hr CONT PRN IV SEE PROTOCOL; Start 02/28/19 at 07:15; Stop 02/28/19 at 07:59; Status DC Propofol 100 ml @ 0 mls/hr CONT PRN IV SEE PROTOCOL; Start 02/28/19 at 07:15; Stop 02/28/19 at 07:59; Status DC Fentanyl Citrate (Fentanyl 2ml Vial) 25 mcg PRN Q1HR PRN IV SEE COMMENTS; Start 02/28/19 at 07:15; Stop 02/28/19 at 07:59; Status DC Fentanyl Citrate (Fentanyl 2ml Vial) 50 mcg PRN Q1HR PRN IV SEE COMMENTS; Start 02/28/19 at 07:15; Stop 02/28/19 at 07:59; Status DC Midazolam HCl 100 ml @ 0 mls/hr CONT PRN IV SEE PROTOCOL Last administered on at 07:11; Start 02/28/19 at 07:15 Sodium Chloride 1,000 ml @ 1,000 mls/hr Q1H IV Last administered on 02/28/19at 07:32; Start 02/28/19 at 07:32; Stop 02/28/19 at 10:09; Status DC Fentanyl Citrate (Fentanyl 2ml Vial) 25 mcg PRN Q30MIN PRN IV see comments; Start 02/28/19 at 07:45; Stop 02/28/19 at 09:42; Status DC Lorazepam (Ativan) 1 mg PRN Q30MIN PRN IV SEDATION; Start 02/28/19 at 07:45; Stop 02/28/19 at 09:42; Status DC Fentanyl Citrate 30 ml @ 2.5 mls/hr CONT PRN PRN IV SEE I/O RECORD Last administered on 03/05/19at 03:44; Start 02/28/19 at 07:45; Stop 03/05/19 at 04:40; Status DC Propofol 100 ml @ 0 mls/hr CONT PRN IV SEE I/O RECORD; Start 02/28/19 at 07:45 Vecuronium Stryker (Norcuron Bolus) 10 mg PRN Q30MIN PRN IV SHIVERING; Start at 07:45; Stop 02/28/19 at 09:42; Status DC Meperidine HCl (Demerol) 12.5 mg PRN Q30MIN PRN IV SHIVERING; Start 02/28/19 at 07:45; Stop 02/28/19 at 09:42; Status DC Multi-Ingred Cream/Lotion/Oil/ Oint (Artificial Tears Eye Ointment) 1 jennifer PRN Q6HRS PRN OU 0.5 INCH FOR DRY EYE; Start 02/28/19 at 07:45; Stop 02/28/19 at 09 :42; Status DC Famotidine (Pepcid Vial) 20 mg BID IVP Last administered on 02/28/19at 11:03; Start 02/28/19 at 09:00; Stop 02/28/19 at 14:25; Status DC Aspirin (Aspirin) 300 mg DAILY NM ; Start 02/28/19 at 09:00; Stop 02/28/19 at 09 :42; Status DC Sodium Chloride (Normal Saline Flush) 3 ml QSHIFT PRN IV AFTER MEDS AND BLOOD DRAWS; Start 02/28/19 at 07:45 Acetaminophen (Tylenol) 650 mg Q6HRS NG ; Start 02/28/19 at 12:00; Stop at 12:00; Status DC Acetaminophen (Tylenol Supp) 650 mg PRN Q6HRS PRN NM MILD PAIN / TEMP; Start at 07:45; Stop 03/01/19 at 07:45; Status DC Acetaminophen (Tylenol) 650 mg PRN Q6HRS PRN NG MILD PAIN / TEMP; Start at 07:45; Stop 03/01/19 at 07:45; Status DC Info (Icu Electrolyte Protocol) 1 ea DAILY PRN MC PER PROTOCOL; Start 03/02/19 at 07:45; Stop 03/02/19 at 07:45; Status DC Furosemide (Lasix) 60 mg 1X ONCE IVP Last administered on 02/28/19at 08:30; Start 02/28/19 at 08:30; Stop 02/28/19 at 08:31; Status DC Ceftriaxone Sodium (Rocephin) 1 gm Q24H IVP Last administered on 02/28/19at 11: 03; Start 02/28/19 at 11:00; Stop 02/28/19 at 11:18; Status DC Calcium Chloride 1000 mg/Dextrose 60 ml @ 120 mls/hr 1X ONCE IV Last administered on 02/28/19at 11:03; Start 02/28/19 at 10:30; Stop 02/28/19 at 10:59 ; Status DC Meropenem 500 mg/ Sodium Chloride 50 ml @ 100 mls/hr Q8HRS IV Last administered on 03/03/19at 06:24; Start 02/28/19 at 14:00; Stop 03/03/19 at 07:04; Status DC Linezolid/Dextrose 300 ml @ 300 mls/hr Q12HR IV Last administered on 03/03/19 20:00; Start 02/28/19 at 11:30; Stop 03/04/19 at 08:55; Status DC Micafungin Sodium 100 mg/Dextrose 100 ml @ 100 mls/hr Q24H IV Last administered on 03/04/19at 15:53; Start 02/28/19 at 12:00; Stop 03/05/19 at 06:47; Status DC Furosemide (Lasix) 40 mg [id number] IVP Last administered on 03/02/19at 14:06; Start 02/28/19 at 14:00; Stop 03/02/19 at 17:02; Status DC Famotidine (Pepcid Vial) 20 mg QHS IVP Last administered on 03/01/19at 21:24; Start 02/28/19 at 21:00; Stop 03/02/19 at 10:07; Status DC Albuterol/ Ipratropium (Duoneb) 3 ml RTQID NEB Last administered on 03/06/19at 08 :18; Start 02/28/19 at 16:00 Haloperidol Lactate (Haldol Inj) 5 mg PRN Q6HRS PRN IVP AGITATION 2ND CHOICE Last administered on 03/04/19at 02:11; Start 02/28/19 at 15:15 Vecuronium Stryker (Norcuron Bolus) 8 mg PRN Q4HRS PRN IV MUSCLE SPASMS Last administered on 03/04/19at 04:47; Start 02/28/19 at 15:15 Perflutren Protein Type A Microsphe (Optison) 0.66 mg PRN 1X PRN IV SEE COMMENTS; Start 03/01/19 at 10:00; Stop 03/02/19 at 09:59; Status DC Digoxin (Lanoxin) 125 mcg 1X STAT IV ; Start 03/01/19 at 15:34; Stop 03/01/19 at 16:00; Status DC Sodium Chloride 500 ml @ 500 mls/hr 1X ONCE IV Last administered on at 18:46; Start 03/01/19 at 18:45; Stop 03/01/19 at 19:44; Status DC Famotidine (Pepcid Vial) 20 mg Q12HR IVP Last administered on 03/06/19 08:38; Start 03/02/19 at 21:00 Furosemide (Lasix) 40 mg DAILY IVP Last administered on 03/04/19 09:52; Start 03/03/19 at 09:00; Stop 03/04/19 at 12:13; Status DC Acetaminophen (Tylenol Supp) 650 mg PRN Q6HRS PRN NM MILD PAIN / TEMP Last administered on 03/03/19 17:39; Start 03/02/19 at 17:15 Meropenem 500 mg/ Sodium Chloride 50 ml @ 100 mls/hr Q6HRS IV Last administered on 03/05/19 05:33; Start 03/03/19 at 12:00; Stop 03/05/19 at 06:47; Status DC Albumin Human 100 ml @ 100 mls/hr 1X ONCE IV Last administered on 03/03/19 08 :52; Start 03/03/19 at 08:30; Stop 03/03/19 at 09:29; Status DC Atropine Sulfate (ATROPINE 0.5mg SYRINGE) 2 mg STK-MED ONCE .ROUTE ; Start 02/27 at 16:21; Stop 03/03/19 at 16:22; Status DC Dopamine HCl/ Dextrose (DOPamine 400MG/ 250ML PREMIX) 400 mg STK-MED ONCE IV ; Start 02/27/19 at 16:21; Stop 03/03/19 at 16:22; Status DC Furosemide (Lasix) 40 mg 1X ONCE IVP Last administered on 03/03/19 18:46; Start 03/03/19 at 18:45; Stop 03/03/19 at 18:46; Status DC Lorazepam 100 mg/ Sodium Chloride 100 ml @ 0 mls/hr CONT PRN IV SEE PROTOCOL Last administered on 03/03/19 22:18; Start 03/03/19 at 22:00 Acetaminophen (Tylenol) 650 mg PRN Q6HRS PRN PEG MILD PAIN / TEMP Last administered on 03/05/19 09:32; Start 03/04/19 at 11:45 Furosemide (Lasix) 40 mg BID92 IVP Last administered on 03/06/19 08:38; Start 03/04/19 at 14:00 Fentanyl Citrate 30 ml @ 0 mls/hr CONT PRN IV SEE PROTOCOL Last administered on 03/06/19 07:10; Start 03/05/19 at 04:45 Cefepime HCl (Maxipime) 2 gm Q8HRS IVP Last administered on 03/06/19 05:58; Start 03/05/19 at 06:45 Metronidazole 100 ml @ 100 mls/hr Q8HRS IV Last administered on 03/06/19at 05:58 ; Start 03/05/19 at 06:45 Linezolid/Dextrose 300 ml @ 300 mls/hr Q12HR IV Last administered on 03/05/19at 21:24; Start 03/05/19 at 09:00; Stop 03/06/19 at 06:42; Status DC Metoclopramide HCl (Reglan Vial) 10 mg QIDACHS IV Last administered on 07:14; Start 03/05/19 at 11:30 Insulin Glargine (Lantus) 12 units BID SQ Last administered on 03/06/19 08:51; Start 03/05/19 at 09:00 Digoxin (Lanoxin) 500 mcg 1X ONCE IV Last administered on 03/06/19 00:48; Start 03/06/19 at 00:45; Stop 03/06/19 at 00:46; Status DC Metoprolol Tartrate (Lopressor Vial) 5 mg 1X ONCE IVP Last administered on 03/06 00:53; Start 03/06/19 at 00:45; Stop 03/06/19 at 00:46; Status DC Sodium Chloride 500 ml @ 500 mls/hr 1X ONCE IV Last administered on 03/06/19at 00:49; Start 03/06/19 at 00:45; Stop 03/06/19 at 01:44; Status DC Nystatin (Mycostatin) 1 jennifer BID TP Last administered on 03/06/19 08:51; Start 03/06/19 at 09:00 Sodium Cl/Sod Bicarb/Potass Cl/ PEG (Golytely) 2,000 ml 1X ONCE PO ; Start 03/06 at 08:00; Stop 03/06/19 at 08:01; Status DC Active Scripts Active Reported Proair Hfa Inhaler (Albuterol Sulfate) 8.5 Gm Hfa.aer.ad 1 Puff INH PRN Q6HRS PRN Lantus Solostar (Insulin Glargine,Hum.rec.anlog) 100 Unit/1 Ml Insuln.pen 20 Unit SQ QHS Humalog (Insulin Lispro) 100 Unit/1 Ml Cartridge 6 Unit SQ TIDWMEALS Doxazosin Mesylate 2 Mg Tablet 2 Mg PO DAILY Omeprazole 40 Mg Capsule.dr 40 Mg PO DAILY Amlodipine Besylate 10 Mg Tablet 10 Mg PO DAILY Atorvastatin Calcium 20 Mg Tablet 20 Mg PO DAILY Atenolol 50 Mg Tablet 50 Mg PO DAILY Losartan Potassium 100 Mg Tablet 100 Mg PO DAILY Aspirin 81 Mg Tab.chew 81 Mg PO DAILY Glyburide 5 Mg Tablet 1 Tab PO BID Vitals/I & O Vital Sign - Last 24 Hours 03/05/19 03/05/19 03/05/19 03/05/19 09:00 09:20 10:00 11:00 Temp 98.7 98.7 Pulse 87 80 87 Resp 14 14 14 B/P (MAP) 150/76 (100) 117/73 (88) 119/67 (84) Pulse Ox 93 94 96 94 O2 Delivery Ventilator Ventilator Ventilator Ventilator 03/05/19 03/05/19 03/05/19 03/05/19 11:35 11:42 12:00 12:00 Temp 99.7 99.7 Pulse 75 Resp 14 14 B/P (MAP) 115/57 (76) Pulse Ox 95 96 O2 Delivery Ventilator Ventilator Mechanical Ventilator Ventilator 03/05/19 03/05/19 03/05/19 03/05/19 12:45 13:00 14:00 15:00 Pulse 84 81 83 Resp 14 14 14 B/P (MAP) 102/66 (78) 111/69 (83) 127/70 (89) Pulse Ox 95 95 96 95 O2 Delivery Ventilator Ventilator Ventilator Ventilator 03/05/19 03/05/19 03/05/19 03/05/19 15:25 16:00 16:00 17:00 Temp 98.4 98.4 Pulse 81 91 Resp 14 14 B/P (MAP) 109/69 (82) 147/79 (101) Pulse Ox 95 94 95 O2 Delivery Ventilator Ventilator Mechanical Ventilator Ventilator 03/05/19 03/05/19 03/05/19 03/05/19 17:27 18:00 18:10 18:41 Pulse 88 Resp 14 14 14 B/P (MAP) 158/77 (104) Pulse Ox 93 94 O2 Delivery Ventilator Ventilator Ventilator Ventilator 03/05/19 03/05/19 03/05/19 03/05/19 19:00 19:48 20:00 20:00 Temp 99.6 99.6 Pulse 88 90 Resp 14 14 B/P (MAP) 144/74 (97) 113/77 (89) Pulse Ox 94 93 95 O2 Delivery Ventilator Ventilator Ventilator Mechanical Ventilator 03/05/19 03/05/19 03/05/19 03/05/19 21:00 22:00 23:00 23:40 Pulse 97 102 89 Resp 14 13 13 B/P (MAP) 139/89 (106) 158/81 (106) 160/77 (104) Pulse Ox 96 97 94 93 O2 Delivery Ventilator Ventilator Ventilator Ventilator 03/05/19 03/06/19 03/06/19 03/06/19 23:45 00:00 00:48 00:53 Temp 100.1 100.1 Pulse 159 157 156 Resp 14 B/P (MAP) 104/63 (77) 123/74 123/74 Pulse Ox 93 O2 Delivery Mechanical Ventilator Ventilator 03/06/19 03/06/19 03/06/19 03/06/19 01:00 01:43 02:00 03:00 Pulse 89 84 82 Resp 22 14 13 B/P (MAP) 142/92 (109) 121/65 (83) 121/65 (83) Pulse Ox 93 93 96 95 O2 Delivery Ventilator Ventilator Ventilator Ventilator 03/06/19 03/06/19 03/06/19 03/06/19 04:00 04:00 04:08 05:00 Temp 99.6 99.6 Pulse 76 72 Resp 14 13 B/P (MAP) 130/66 (87) 111/65 (80) Pulse Ox 95 94 95 O2 Delivery Ventilator Mechanical Ventilator Ventilator Ventilator 03/06/19 03/06/19 03/06/19 03/06/19 05:57 06:00 07:00 07:10 Pulse 74 78 Resp 19 14 14 B/P (MAP) 165/77 (106) 140/79 (99) Pulse Ox 94 96 95 O2 Delivery Ventilator Ventilator Ventilator Ventilator 03/06/19 03/06/19 03/06/19 03/06/19 07:40 08:00 08:00 08:19 Temp 99.1 99.1 Pulse 73 Resp 14 14 B/P (MAP) 132/68 (89) Pulse Ox 96 94 O2 Delivery Ventilator Ventilator Mechanical Ventilator Ventilator Intake and Output 03/05/19 03/05/19 03/06/19 15:00 23:00 07:00 Intake Total 820 ml 1215.64 ml 2252 ml Output Total 795 ml 340 ml 350 ml Balance 25 ml 875.64 ml 1902 ml MICHAEL BURRIS MD Mar 06, 2019 08:57
--- NOTE | 2019-03-06 09:28 | PDOC ---
SUBJECTIVE Subjective Pt intubated and sedated. Attending RN thinks that swelling to scrotum is much better; nursing has no concerns for Urology team. OBJECTIVE Objective Physical Exam: General appearance: + Intubated and sedated; on ventilator Head: Normocephalic, without obvious abnormality Eyes:closed Lungs: Regular respirations with machine assistance. Abdomen: soft, non-tender. Pelvic: Buried phallus. Scrotal swelling improved, pliable. No open areas or drainage noted. + Coburn in place draining clear yellow urine; device in good working order. Vital Signs Vital Signs Date Time Temp Pulse Resp B/P (MAP) Pulse Ox O2 Delivery O2 Flow Rate FiO2 03/06/19 08:19 94 Ventilator 03/06/19 08:00 Mechanical Ventilator 03/06/19 08:00 99.1 73 14 132/68 (89) 96 Ventilator 99.1 03/06/19 07:40 14 Ventilator 03/06/19 07:10 14 Ventilator 03/06/19 07:00 78 14 140/79 (99) 95 Ventilator 03/06/19 06:00 74 19 165/77 (106) 96 Ventilator 03/06/19 05:57 94 Ventilator 03/06/19 05:00 72 13 111/65 (80) 95 Ventilator 03/06/19 04:08 94 Ventilator 03/06/19 04:00 Mechanical Ventilator 03/06/19 04:00 99.6 76 14 130/66 (87) 95 Ventilator 99.6 03/06/19 03:00 82 13 121/65 (83) 95 Ventilator 03/06/19 02:00 84 14 121/65 (83) 96 Ventilator 03/06/19 01:43 93 Ventilator 03/06/19 01:00 89 22 142/92 (109) 93 Ventilator 03/06/19 00:53 156 123/74 03/06/19 00:48 157 123/74 03/06/19 00:00 100.1 159 14 104/63 (77) 93 Ventilator 100.1 03/05/19 23:45 Mechanical Ventilator 03/05/19 23:40 93 Ventilator 03/05/19 23:00 89 13 160/77 (104) 94 Ventilator 03/05/19 22:00 102 13 158/81 (106) 97 Ventilator 03/05/19 21:00 97 14 139/89 (106) 96 Ventilator 03/05/19 20:00 Mechanical Ventilator 03/05/19 20:00 99.6 90 14 113/77 (89) 95 Ventilator 99.6 03/05/19 19:48 93 Ventilator 03/05/19 19:00 88 14 144/74 (97) 94 Ventilator 03/05/19 18:41 14 Ventilator 03/05/19 18:10 14 Ventilator 03/05/19 18:00 88 14 158/77 (104) 94 Ventilator 03/05/19 17:27 93 Ventilator 03/05/19 17:00 91 14 147/79 (101) 95 Ventilator 03/05/19 16:00 Mechanical Ventilator 03/05/19 16:00 98.4 81 14 109/69 (82) 94 Ventilator 98.4 03/05/19 15:25 95 Ventilator 03/05/19 15:00 83 14 127/70 (89) 95 Ventilator 03/05/19 14:00 81 14 111/69 (83) 96 Ventilator 03/05/19 13:00 84 14 102/66 (78) 95 Ventilator 03/05/19 12:45 95 Ventilator 03/05/19 12:00 99.7 75 14 115/57 (76) 96 Ventilator 99.7 03/05/19 12:00 Mechanical Ventilator 03/05/19 11:42 95 Ventilator 03/05/19 11:35 14 Ventilator 03/05/19 11:00 87 14 119/67 (84) 94 Ventilator 03/05/19 10:00 98.7 80 14 117/73 (88) 96 Ventilator 98.7 I & O Intake and Output 03/06/19 07:00 Intake Total 4287.64 ml Output Total 1485 ml Balance 2802.64 ml IV Total 1875.64 ml Tube Feeding 1962 ml Other 450 ml Output Urine Total 1225 ml Gastric Drainage Total 260 ml PHYSICAL EXAM Physical Exam Physical Exam: General appearance: + Intubated and sedated; on ventilator Head: Normocephalic, without obvious abnormality Eyes:closed Lungs: Regular respirations with machine assistance. Abdomen: soft, non-tender. Pelvic: Buried phallus. Scrotal swelling improved, pliable. No open areas or drainage noted. + Coburn in place draining clear yellow urine; device in good working order. ASSESSMENT/PLAN Assessment/Plan Continue diaphoresis; scrotal swelling should continue to improve with this. Continue to maintain Coburn catheter. No acute concerns found on scrotal US. Will follow peripherally over the weekend, but please call Urology with concerns or change in patient condition over the weekend. Problems: (1) Edema COMMENT Lab Laboratory Tests Test 03/05/19 12:14 03/05/19 21:22 03/06/19 04:45 03/06/19 07:51 Glucose (Fingerstick) 202 mg/dL (70-99) 162 mg/dL (70-99) 208 mg/dL (70-99) White Blood Count 8.5 x10^3/uL (4.0-11.0) Red Blood Count 4.12 x10^6/uL (4.30-5.70) Hemoglobin 12.5 g/dL (13.0-17.5) Hematocrit 39.2 % (39.0-53.0) Mean Corpuscular Volume 95 fL (79-100) Mean Corpuscular Hemoglobin 30 pg (25-35) Mean Corpuscular Hemoglobin Concent 32 g/dL (31-37) Red Cell Distribution Width 14.3 % (11.5-14.5) Platelet Count 178 x10^3/uL (140-400) Neutrophils (%) (Auto) 84 % (31-73) Lymphocytes (%) (Auto) 5 % (24-48) Monocytes (%) (Auto) 8 % (0-9) Eosinophils (%) (Auto) 3 % (0-3) Basophils (%) (Auto) 0 % (0-3) Neutrophils # (Auto) 7.1 x10^3uL (1.8-7.7) Lymphocytes # (Auto) 0.4 x10^3/uL (1.0-4.8) Monocytes # (Auto) 0.7 x10^3/uL (0.0-1.1) Eosinophils # (Auto) 0.2 x10^3/uL (0.0-0.7) Basophils # (Auto) 0.0 x10^3/uL (0.0-0.2) Sodium Level 144 mmol/L (136-145) Potassium Level 5.1 mmol/L (3.5-5.1) Chloride Level 105 mmol/L (98-107) Carbon Dioxide Level 33 mmol/L (21-32) Anion Gap 6 (6-14) Blood Urea Nitrogen 36 mg/dL (8-26) Creatinine 2.0 mg/dL (0.7-1.3) Estimated GFR (Cockcroft-Gault) 34.7 Glucose Level 215 mg/dL (70-99) Calcium Level 8.3 mg/dL (8.5-10.1) Magnesium Level 2.1 mg/dL (1.8-2.4) Test 03/06/19 08:00 O2 Saturation 94 % (92-99) Arterial Blood pH 7.35 (7.35-7.45) Arterial Blood pCO2 at Patient Temp 62 mmHg (35-46) Arterial Blood pO2 at Patient Temp 73 mmHg (75-108) Arterial Blood HCO3 33 mmol/L (21-28) Arterial Blood Base Excess 5 mmol/L (-3-3) FiO2 80 Problem Qualifiers (1) Edema: Edema type: unspecified Qualified Codes: R60.9 - Edema, unspecified CHRIS CHAVEZ APRN Mar 06, 2019 09:28
--- NOTE | 2019-03-06 09:39 | NUR ---
SS following up with discharge planning. SS phoned and faxed clinical updates to [facility], ; fax [phone]. SS will continue to follow for discharge planning.
[2019-03-06 10:10] LABS: % EOS 1 % (0-5); % LYMPHS 3 % (24-48); % MONOS 7 % (0-10); % SEGS 89 % (35-66)
[2019-03-06 10:12] LABS: PLT ESTIMATE ADEQUATE (ADEQUATE)
--- NOTE | 2019-03-06 10:19 | PDOC ---
PULMONARY PROGRESS NOTES Subjective SEDATED ON AC MODE, 80% FIO2/ 10 PEEP NO IMPROVEMENT IN OXYGENATION DESPITE DIURESIS Vitals Vital Signs Date Time Temp Pulse Resp B/P (MAP) Pulse Ox O2 Delivery O2 Flow Rate FiO2 03/06/19 10:00 87 14 138/73 (94) 95 Ventilator 03/06/19 08:00 99.1 99.1 Lungs: Other (decrease bs) Cardiovascular: S1, S2, Other (decrease bs) Abdomen: Other (OBESE) Extremities: Other (venous stasis left, right BKA) Skin: Warm Labs Laboratory Tests Test 03/04/19 14:20 03/05/19 05:31 03/05/19 05:35 03/05/19 07:20 Prothrombin Time 14.9 SEC (11.7-14.0) Prothromb Time International Ratio 1.2 (0.8-1.1) Sodium Level 146 mmol/L (136-145) 145 mmol/L (136-145) Potassium Level 4.5 mmol/L (3.5-5.1) 5.3 mmol/L (3.5-5.1) Chloride Level 107 mmol/L (98-107) 105 mmol/L (98-107) Carbon Dioxide Level 33 mmol/L (21-32) 32 mmol/L (21-32) Anion Gap 6 (6-14) 8 (6-14) Blood Urea Nitrogen 22 mg/dL (8-26) 27 mg/dL (8-26) Creatinine 1.5 mg/dL (0.7-1.3) 1.8 mg/dL (0.7-1.3) Estimated GFR (Cockcroft-Gault) 48.4 39.2 BUN/Creatinine Ratio 15 (6-20) 15 (6-20) Glucose Level 188 mg/dL (70-99) 198 mg/dL (70-99) Calcium Level 8.4 mg/dL (8.5-10.1) 8.6 mg/dL (8.5-10.1) Magnesium Level 1.9 mg/dL (1.8-2.4) 2.0 mg/dL (1.8-2.4) Total Bilirubin 0.8 mg/dL (0.2-1.0) 1.0 mg/dL (0.2-1.0) Aspartate Amino Transf (AST/SGOT) 21 U/L (15-37) 29 U/L (15-37) Alanine Aminotransferase (ALT/SGPT) 22 U/L (16-63) 24 U/L (16-63) Alkaline Phosphatase 77 U/L (46-116) 83 U/L (46-116) Total Protein 6.4 g/dL (6.4-8.2) 7.1 g/dL (6.4-8.2) Albumin 2.2 g/dL (3.4-5.0) 2.4 g/dL (3.4-5.0) Albumin/Globulin Ratio 0.5 (1.0-1.7) 0.5 (1.0-1.7) Glucose (Fingerstick) 195 mg/dL (70-99) White Blood Count 8.2 x10^3/uL (4.0-11.0) Red Blood Count 4.39 x10^6/uL (4.30-5.70) Hemoglobin 13.3 g/dL (13.0-17.5) Hematocrit 41.8 % (39.0-53.0) Mean Corpuscular Volume 95 fL (79-100) Mean Corpuscular Hemoglobin 30 pg (25-35) Mean Corpuscular Hemoglobin Concent 32 g/dL (31-37) Red Cell Distribution Width 14.5 % (11.5-14.5) Platelet Count 193 x10^3/uL (140-400) Neutrophils (%) (Auto) 83 % (31-73) Lymphocytes (%) (Auto) 5 % (24-48) Monocytes (%) (Auto) 8 % (0-9) Eosinophils (%) (Auto) 3 % (0-3) Basophils (%) (Auto) 0 % (0-3) Neutrophils # (Auto) 6.9 x10^3uL (1.8-7.7) Lymphocytes # (Auto) 0.4 x10^3/uL (1.0-4.8) Monocytes # (Auto) 0.6 x10^3/uL (0.0-1.1) Eosinophils # (Auto) 0.3 x10^3/uL (0.0-0.7) Basophils # (Auto) 0.0 x10^3/uL (0.0-0.2) Phosphorus Level 5.0 mg/dL (2.6-4.7) O2 Saturation 94 % (92-99) Arterial Blood pH 7.35 (7.35-7.45) Arterial Blood pCO2 at Patient Temp 61 mmHg (35-46) Arterial Blood pO2 at Patient Temp 75 mmHg (75-108) Arterial Blood HCO3 33 mmol/L (21-28) Arterial Blood Base Excess 5 mmol/L (-3-3) FiO2 80 Test 03/05/19 12:14 03/05/19 21:22 03/06/19 04:45 03/06/19 07:51 Glucose (Fingerstick) 202 mg/dL (70-99) 162 mg/dL (70-99) 208 mg/dL (70-99) White Blood Count 8.5 x10^3/uL (4.0-11.0) Red Blood Count 4.12 x10^6/uL (4.30-5.70) Hemoglobin 12.5 g/dL (13.0-17.5) Hematocrit 39.2 % (39.0-53.0) Mean Corpuscular Volume 95 fL (79-100) Mean Corpuscular Hemoglobin 30 pg (25-35) Mean Corpuscular Hemoglobin Concent 32 g/dL (31-37) Red Cell Distribution Width 14.3 % (11.5-14.5) Platelet Count 178 x10^3/uL (140-400) Neutrophils (%) (Auto) 84 % (31-73) Lymphocytes (%) (Auto) 5 % (24-48) Monocytes (%) (Auto) 8 % (0-9) Eosinophils (%) (Auto) 3 % (0-3) Basophils (%) (Auto) 0 % (0-3) Neutrophils # (Auto) 7.1 x10^3uL (1.8-7.7) Lymphocytes # (Auto) 0.4 x10^3/uL (1.0-4.8) Monocytes # (Auto) 0.7 x10^3/uL (0.0-1.1) Eosinophils # (Auto) 0.2 x10^3/uL (0.0-0.7) Basophils # (Auto) 0.0 x10^3/uL (0.0-0.2) Segmented Neutrophils % 89 % (35-66) Lymphocytes % 3 % (24-48) Monocytes % 7 % (0-10) Eosinophils % 1 % (0-5) Platelet Estimate Adequate (ADEQUATE) Sodium Level 144 mmol/L (136-145) Potassium Level 5.1 mmol/L (3.5-5.1) Chloride Level 105 mmol/L (98-107) Carbon Dioxide Level 33 mmol/L (21-32) Anion Gap 6 (6-14) Blood Urea Nitrogen 36 mg/dL (8-26) Creatinine 2.0 mg/dL (0.7-1.3) Estimated GFR (Cockcroft-Gault) 34.7 Glucose Level 215 mg/dL (70-99) Calcium Level 8.3 mg/dL (8.5-10.1) Magnesium Level 2.1 mg/dL (1.8-2.4) Test 03/06/19 08:00 O2 Saturation 94 % (92-99) Arterial Blood pH 7.35 (7.35-7.45) Arterial Blood pCO2 at Patient Temp 62 mmHg (35-46) Arterial Blood pO2 at Patient Temp 73 mmHg (75-108) Arterial Blood HCO3 33 mmol/L (21-28) Arterial Blood Base Excess 5 mmol/L (-3-3) FiO2 80 Laboratory Tests Test 03/05/19 12:14 03/05/19 21:22 03/06/19 04:45 03/06/19 07:51 Glucose (Fingerstick) 202 mg/dL (70-99) 162 mg/dL (70-99) 208 mg/dL (70-99) White Blood Count 8.5 x10^3/uL (4.0-11.0) Red Blood Count 4.12 x10^6/uL (4.30-5.70) Hemoglobin 12.5 g/dL (13.0-17.5) Hematocrit 39.2 % (39.0-53.0) Mean Corpuscular Volume 95 fL (79-100) Mean Corpuscular Hemoglobin 30 pg (25-35) Mean Corpuscular Hemoglobin Concent 32 g/dL (31-37) Red Cell Distribution Width 14.3 % (11.5-14.5) Platelet Count 178 x10^3/uL (140-400) Neutrophils (%) (Auto) 84 % (31-73) Lymphocytes (%) (Auto) 5 % (24-48) Monocytes (%) (Auto) 8 % (0-9) Eosinophils (%) (Auto) 3 % (0-3) Basophils (%) (Auto) 0 % (0-3) Neutrophils # (Auto) 7.1 x10^3uL (1.8-7.7) Lymphocytes # (Auto) 0.4 x10^3/uL (1.0-4.8) Monocytes # (Auto) 0.7 x10^3/uL (0.0-1.1) Eosinophils # (Auto) 0.2 x10^3/uL (0.0-0.7) Basophils # (Auto) 0.0 x10^3/uL (0.0-0.2) Segmented Neutrophils % 89 % (35-66) Lymphocytes % 3 % (24-48) Monocytes % 7 % (0-10) Eosinophils % 1 % (0-5) Platelet Estimate Adequate (ADEQUATE) Sodium Level 144 mmol/L (136-145) Potassium Level 5.1 mmol/L (3.5-5.1) Chloride Level 105 mmol/L (98-107) Carbon Dioxide Level 33 mmol/L (21-32) Anion Gap 6 (6-14) Blood Urea Nitrogen 36 mg/dL (8-26) Creatinine 2.0 mg/dL (0.7-1.3) Estimated GFR (Cockcroft-Gault) 34.7 Glucose Level 215 mg/dL (70-99) Calcium Level 8.3 mg/dL (8.5-10.1) Magnesium Level 2.1 mg/dL (1.8-2.4) Test 03/06/19 08:00 O2 Saturation 94 % (92-99) Arterial Blood pH 7.35 (7.35-7.45) Arterial Blood pCO2 at Patient Temp 62 mmHg (35-46) Arterial Blood pO2 at Patient Temp 73 mmHg (75-108) Arterial Blood HCO3 33 mmol/L (21-28) Arterial Blood Base Excess 5 mmol/L (-3-3) FiO2 80 Medications Active Scripts Medications Dose Route/Sig Max Daily Dose Days Date Category Proair Hfa Inhaler (Albuterol Sulfate) 8.5 Gm Hfa.aer.ad 1 Puff INH PRN Q6HRS PRN 02/27/19 Reported Lantus Solostar (Insulin Glargine,Hum.rec.anlog) 100 Unit/1 Ml Insuln.pen 20 Unit SQ QHS 02/27/19 Reported Humalog (Insulin Lispro) 100 Unit/1 Ml Cartridge 6 Unit SQ TIDWMEALS 02/27/19 Reported Doxazosin Mesylate 2 Mg Tablet 2 Mg PO DAILY 02/27/19 Reported Omeprazole 40 Mg Capsule.dr 40 Mg PO DAILY 02/27/19 Reported Amlodipine Besylate 10 Mg Tablet 10 Mg PO DAILY 02/27/19 Reported Atorvastatin Calcium 20 Mg Tablet 20 Mg PO DAILY 02/27/19 Reported Atenolol 50 Mg Tablet 50 Mg PO DAILY 02/27/19 Reported Losartan Potassium 100 Mg Tablet 100 Mg PO DAILY 02/27/19 Reported Aspirin 81 Mg Tab.chew 81 Mg PO DAILY 02/27/19 Reported Glyburide 5 Mg Tablet 1 Tab PO BID 11/09/16 Reported Comments CXR 03/05 persistent bilateral infiltrates Impression . 1. Acute hypoxemic /hypercapnic respiratory failure./ ARDS clinically 2. Suspected sepsis./ ARDS 3. In-house cardiopulmonary arrest. 4. Normal EF / mild Pulmonary HTN 5. Acute on chronic right-sided heart failure. 6. Possible pneumonia. 7. Morbid obesity. 8. Diabetes. 9. ANASARCA 10. Abnormal CXR <Conclusion>ECHO The left ventricular systolic function is normal. The ejection fraction is 60-65%. There is normal LV segmental wall motion. Transmitral Doppler flow pattern is Grade I-abnormal relaxation pattern. Trace tricuspid regurgitation. Estimated PAP 33-38 mmHg. There is no evidence of significant pericardial effusion. VENOUS 02/28 Impression: 1. There is no evidence of deep venous thrombosis from the bilateral common femoral to popliteal veins. 2. There is nonspecific right groin lymph node. Plan . AC MODE 80% PEEP of 10/ CONTINUE HIGH FLOW OXYGEN NOT READY FOR ANY WEANING WILL CONTINUE SUPPORT ANITBX PER ID INCREASE AZOTEMIA, CONSIDER DECREASING LASIX DOSE/ D/W RENAL 1. Continue support with assist control ventilation, 2. Empiric antibiotics. 3. Bilateral venous Dopplers of lower extremities.NEG 4. DVT and GI prophylaxis. 5. Follow Nephrology, Cardiology.rec 6. Enteral nutrition 7. Prognosis guarded 8. Follow cxr 9. d/w RN/ RT and patients sister in [place] again 03/05. Prognosis explained. code status discussed. she prefers full code cct 30 min ALEJANDRINA WILBURN MD Mar 06, 2019 10:19
--- NOTE | 2019-03-06 10:39 | PDOC ---
SUBJECTIVE ROS Intubated OBJECTIVE Vital Signs Vital Signs Date Time Temp Pulse Resp B/P (MAP) Pulse Ox O2 Delivery O2 Flow Rate FiO2 03/06/19 10:00 87 14 138/73 (94) 95 Ventilator 03/06/19 08:00 99.1 99.1 I & 0 Intake and Output 03/06/19 07:00 Intake Total 4287.64 ml Output Total 1485 ml Balance 2802.64 ml IV Total 1875.64 ml Tube Feeding 1962 ml Other 450 ml Output Urine Total 1225 ml Gastric Drainage Total 260 ml PHYSICAL EXAM Physical Exam GENERAL: Sedated and intubated. HEENT: ETT. OGT NECK: Supple. LUNGS: CTA ant HEART: S1, S2. ABDOMEN: Distended with decreased bowel sounds GENITOURINARY: Coburn +, 2+ scrotal swelling EXTREMITIES: 2 + edema. Generalized anasarca. RLE stump with chronic wound. PHOTO STUDIO ASSISTANT: Unresponsive SKIN: bilateral flank and Lt groin maculo papular rash DIAGNOSIS/ASSESSMENT Assessment & Plan LEONARD- Cr was improving was down to 1.5 Gone up to 2 .0, Tachy, Likely intravascularly depleted Decrease Lasix to QD Monitor Anasarca- Improved Hypernatremia - Resolved Right Renal mass Fever - ? Infection vs ileus vs drug reaction Flank rash - no Eosinophilia Acute respiratory failure, intubated, increased infiltrates today - ARDS Scrotal edema/cellulitis- Improved urology consulted Status post code. Discussed with Dr. Vinson and RN at bedside COMMENT/RELEVANT DATA Meds Current Medications Medications (Trade) Dose Ordered Sig/Lula Start Time Stop Time Status Last Admin Dose Admin Acetaminophen (Tylenol Supp) 650 mg PRN Q6HRS PRN 03/02/19 17:15 03/03/19 17:39 650 MG Acetaminophen (Tylenol) 650 mg PRN Q6HRS PRN 03/04/19 11:45 03/05/19 09:32 650 MG Albumin Human 100 ml @ 100 mls/hr 1X ONCE 03/03/19 08:30 03/03/19 09:29 DC 03/03/19 08:52 100 MLS/HR Albuterol/ Ipratropium (Duoneb) 3 ml RTQID 02/28/19 16:00 03/06/19 08:18 3 ML Aspirin (Aspirin) 300 mg DAILY 3/30/19 09:00 02/28/19 09:42 DC Atropine Sulfate (ATROPINE 0.5mg SYRINGE) 2 mg STK-MED ONCE 02/27/19 16:21 03/03/19 16:22 DC Calcium Chloride 1000 mg/Dextrose 60 ml @ 120 mls/hr 1X ONCE 02/28/19 10:30 02/28/19 10:59 DC 02/28/19 11:03 120 MLS/HR Cefepime HCl (Maxipime) 2 gm Q8HRS 03/05/19 06:45 03/06/19 05:58 2 GM Ceftriaxone Sodium (Rocephin) 1 gm Q24H 02/28/19 11:00 02/28/19 11:18 DC 02/28/19 11:03 1 GM Dextrose (Dextrose 50%-Water Syringe) 12.5 gm PRN Q15MIN PRN 02/27/19 16:45 Digoxin (Lanoxin) 500 mcg 1X ONCE 03/06/19 00:45 03/06/19 00:46 DC 03/06/19 00:48 500 MCG Dopamine HCl/ Dextrose (DOPamine 400MG/ 250ML PREMIX) 400 mg STK-MED ONCE 02/27/19 16:21 03/03/19 16:22 DC Etomidate (Amidate) 20 mg STK-MED ONCE 02/28/19 06:59 02/28/19 07:00 DC Famotidine (Pepcid Vial) 20 mg Q12HR 03/02/19 21:00 03/06/19 08:38 20 MG Fentanyl Citrate 30 ml @ 0 mls/hr CONT PRN 03/05/19 04:45 03/06/19 07:10 4.95 MLS/HR Fentanyl Citrate (Fentanyl 2ml Vial) 25 mcg PRN Q30MIN PRN 02/28/19 07:45 02/28/19 09:42 DC Furosemide (Lasix) 40 mg [id number] 03/04/19 14:00 03/06/19 08:38 40 MG Haloperidol Lactate (Haldol Inj) 5 mg PRN Q6HRS PRN 02/28/19 15:15 03/04/19 02:11 5 MG Heparin Sodium (Porcine) (Heparin Sodium) 5,000 unit Q8HRS 02/27/19 17:00 03/06/19 06:03 5,000 UNIT Info (Icu Electrolyte Protocol) 1 ea DAILY PRN 03/02/19 07:45 03/02/19 07:45 DC Insulin Glargine (Lantus) 12 units BID 03/05/19 09:00 03/06/19 08:51 12 UNITS Linezolid/Dextrose 300 ml @ 300 mls/hr Q12HR 03/05/19 09:00 03/06/19 06:42 DC 03/05/19 21:24 300 MLS/HR Lorazepam (Ativan) 1 mg PRN Q30MIN PRN 02/28/19 07:45 02/28/19 09:42 DC Lorazepam 100 mg/ Sodium Chloride 100 ml @ 0 mls/hr CONT PRN 03/03/19 22:00 03/03/19 22:18 1 MLS/HR Meperidine HCl (Demerol) 12.5 mg PRN Q30MIN PRN 02/28/19 07:45 02/28/19 09:42 DC Meropenem 500 mg/ Sodium Chloride 50 ml @ 100 mls/hr Q6HRS 03/03/19 12:00 03/05/19 06:47 DC 03/05/19 05:33 100 MLS/HR Metoclopramide HCl (Reglan Vial) 10 mg QIDACHS 03/05/19 11:30 03/06/19 07:14 10 MG Metoprolol Tartrate (Lopressor Vial) 5 mg 1X ONCE 03/06/19 00:45 03/06/19 00:46 DC 03/06/19 00:53 5 MG Metronidazole 100 ml @ 100 mls/hr Q8HRS 03/05/19 06:45 03/06/19 05:58 100 MLS/HR Micafungin Sodium 100 mg/Dextrose 100 ml @ 100 mls/hr Q24H 02/28/19 12:00 03/05/19 06:47 DC 03/04/19 15:53 100 MLS/HR Midazolam HCl 100 ml @ 0 mls/hr CONT PRN 02/28/19 07:15 03/06/19 07:11 10 MLS/HR Morphine Sulfate (Morphine Sulfate) 2 mg PRN Q2HR PRN 02/27/19 16:45 02/28/19 16:44 DC Multi-Ingred Cream/Lotion/Oil/ Oint (Artificial Tears Eye Ointment) 1 jennifer PRN Q6HRS PRN 02/28/19 07:45 02/28/19 09:42 DC Nystatin (Mycostatin) 1 jennifer BID 03/06/19 09:00 03/06/19 08:51 1 JENNIFER Ondansetron HCl (Zofran) 4 mg PRN Q8HRS PRN 02/27/19 16:45 02/28/19 16:44 DC Perflutren Protein Type A Microsphe (Optison) 0.66 mg PRN 1X PRN 03/01/19 10:00 03/02/19 09:59 DC Propofol 100 ml @ 0 mls/hr CONT PRN 02/28/19 07:45 Rocuronium [place] (Zemuron) 50 mg STK-MED ONCE 02/28/19 07:00 02/28/19 09:42 DC Sodium Chloride 500 ml @ 500 mls/hr 1X ONCE 03/06/19 00:45 03/06/19 01:44 DC 03/06/19 00:49 500 MLS/HR Sodium Chloride (Normal Saline Flush) 3 ml QSHIFT PRN 02/28/19 07:45 Sodium Cl/Sod Bicarb/Potass Cl/ PEG (Golytely) 2,000 ml 1X ONCE 03/06/19 08:00 03/06/19 08:01 DC 03/06/19 09:33 2,000 ML Vecuronium [place] (Norcuron Bolus) 8 mg PRN Q4HRS PRN 02/28/19 15:15 03/04/19 04:47 8 MG Lab Laboratory Tests Test 03/05/19 12:14 03/05/19 21:22 03/06/19 04:45 03/06/19 07:51 Glucose (Fingerstick) 202 mg/dL (70-99) 162 mg/dL (70-99) 208 mg/dL (70-99) White Blood Count 8.5 x10^3/uL (4.0-11.0) Red Blood Count 4.12 x10^6/uL (4.30-5.70) Hemoglobin 12.5 g/dL (13.0-17.5) Hematocrit 39.2 % (39.0-53.0) Mean Corpuscular Volume 95 fL (79-100) Mean Corpuscular Hemoglobin 30 pg (25-35) Mean Corpuscular Hemoglobin Concent 32 g/dL (31-37) Red Cell Distribution Width 14.3 % (11.5-14.5) Platelet Count 178 x10^3/uL (140-400) Neutrophils (%) (Auto) 84 % (31-73) Lymphocytes (%) (Auto) 5 % (24-48) Monocytes (%) (Auto) 8 % (0-9) Eosinophils (%) (Auto) 3 % (0-3) Basophils (%) (Auto) 0 % (0-3) Neutrophils # (Auto) 7.1 x10^3uL (1.8-7.7) Lymphocytes # (Auto) 0.4 x10^3/uL (1.0-4.8) Monocytes # (Auto) 0.7 x10^3/uL (0.0-1.1) Eosinophils # (Auto) 0.2 x10^3/uL (0.0-0.7) Basophils # (Auto) 0.0 x10^3/uL (0.0-0.2) Segmented Neutrophils % 89 % (35-66) Lymphocytes % 3 % (24-48) Monocytes % 7 % (0-10) Eosinophils % 1 % (0-5) Platelet Estimate Adequate (ADEQUATE) Sodium Level 144 mmol/L (136-145) Potassium Level 5.1 mmol/L (3.5-5.1) Chloride Level 105 mmol/L (98-107) Carbon Dioxide Level 33 mmol/L (21-32) Anion Gap 6 (6-14) Blood Urea Nitrogen 36 mg/dL (8-26) Creatinine 2.0 mg/dL (0.7-1.3) Estimated GFR (Cockcroft-Gault) 34.7 Glucose Level 215 mg/dL (70-99) Calcium Level 8.3 mg/dL (8.5-10.1) Magnesium Level 2.1 mg/dL (1.8-2.4) Test 03/06/19 08:00 O2 Saturation 94 % (92-99) Arterial Blood pH 7.35 (7.35-7.45) Arterial Blood pCO2 at Patient Temp 62 mmHg (35-46) Arterial Blood pO2 at Patient Temp 73 mmHg (75-108) Arterial Blood HCO3 33 mmol/L (21-28) Arterial Blood Base Excess 5 mmol/L (-3-3) FiO2 80 Results All relevant outside records, renal labs, imaging studies, telemetry/EKG's were reviewed. CT IMPRESSION: 1. Mild nonspecific perinephric stranding with slight asymmetric stranding adjacent to the left renal pelvis. Findings may be due to chronic kidney disease, though ascending urinary tract infection is not excluded. 2. Bilateral lower lobe consolidation concerning for multifocal pneumonia or pneumonitis with aspiration not excluded. 3. Right renal hypodensity measuring 2.5 cm is incompletely evaluated on noncontrast examination. Follow-up MRI or CT abdomen and pelvis renal protocol with contrast is recommended for further evaluation. 4. Anasarca. 5. Mild bilateral external iliac lymphadenopathy, may be reactive, though follow-up CT abdomen and pelvis in 3 months is recommended to assess for stability/resolution. 6. Nonobstructive left nephrolithiasis. 7. Coronary artery calcifications. GALO AMBRIZ MD Mar 06, 2019 10:38
--- NOTE | 2019-03-06 12:32 | NUR ---
2,000 ml of go-lytely given to patient via OG tube as ordered by Dr. Freed. Patient has had multiple liquid bowel movements since administered. Bowel sounds are now active and stomach is less distended. See I/O.
--- NOTE | 2019-03-06 16:55 | PDOC ---
CARDIO Progress Notes Date and Time Date of Service 03/06/2019 Time of Evaluation 1650 Subjective Subjective: Other (intubated ) Vitals Vitals Vital Signs Date Time Temp Pulse Resp B/P (MAP) Pulse Ox O2 Delivery O2 Flow Rate FiO2 03/06/19 16:08 151 110/70 03/06/19 16:02 90 Ventilator 03/06/19 15:33 17 03/06/19 08:00 99.1 99.1 Weight Weight [ ] Stability Assessment Stability Assess.: other (intubated ) Input and Output Intake and Output Intake and Output 03/06/19 07:00 Intake Total 4287.64 ml Output Total 1485 ml Balance 2802.64 ml IV Total 1875.64 ml Tube Feeding 1962 ml Other 450 ml Output Urine Total 1225 ml Gastric Drainage Total 260 ml Laboratory Labs Laboratory Tests Test 03/05/19 21:22 03/06/19 04:45 03/06/19 07:51 03/06/19 08:00 Glucose (Fingerstick) 162 mg/dL (70-99) 208 mg/dL (70-99) White Blood Count 8.5 x10^3/uL (4.0-11.0) Red Blood Count 4.12 x10^6/uL (4.30-5.70) Hemoglobin 12.5 g/dL (13.0-17.5) Hematocrit 39.2 % (39.0-53.0) Mean Corpuscular Volume 95 fL (79-100) Mean Corpuscular Hemoglobin 30 pg (25-35) Mean Corpuscular Hemoglobin Concent 32 g/dL (31-37) Red Cell Distribution Width 14.3 % (11.5-14.5) Platelet Count 178 x10^3/uL (140-400) Neutrophils (%) (Auto) 84 % (31-73) Lymphocytes (%) (Auto) 5 % (24-48) Monocytes (%) (Auto) 8 % (0-9) Eosinophils (%) (Auto) 3 % (0-3) Basophils (%) (Auto) 0 % (0-3) Neutrophils # (Auto) 7.1 x10^3uL (1.8-7.7) Lymphocytes # (Auto) 0.4 x10^3/uL (1.0-4.8) Monocytes # (Auto) 0.7 x10^3/uL (0.0-1.1) Eosinophils # (Auto) 0.2 x10^3/uL (0.0-0.7) Basophils # (Auto) 0.0 x10^3/uL (0.0-0.2) Segmented Neutrophils % 89 % (35-66) Lymphocytes % 3 % (24-48) Monocytes % 7 % (0-10) Eosinophils % 1 % (0-5) Platelet Estimate Adequate (ADEQUATE) Sodium Level 144 mmol/L (136-145) Potassium Level 5.1 mmol/L (3.5-5.1) Chloride Level 105 mmol/L (98-107) Carbon Dioxide Level 33 mmol/L (21-32) Anion Gap 6 (6-14) Blood Urea Nitrogen 36 mg/dL (8-26) Creatinine 2.0 mg/dL (0.7-1.3) Estimated GFR (Cockcroft-Gault) 34.7 Glucose Level 215 mg/dL (70-99) Calcium Level 8.3 mg/dL (8.5-10.1) Magnesium Level 2.1 mg/dL (1.8-2.4) O2 Saturation 94 % (92-99) Arterial Blood pH 7.35 (7.35-7.45) Arterial Blood pCO2 at Patient Temp 62 mmHg (35-46) Arterial Blood pO2 at Patient Temp 73 mmHg (75-108) Arterial Blood HCO3 33 mmol/L (21-28) Arterial Blood Base Excess 5 mmol/L (-3-3) FiO2 80 Test 03/06/19 08:50 Urine Eosinophils Eos not observed Microbiology Micro Microbiology 03/05/19 Blood Culture - Preliminary, Resulted NO GROWTH AFTER 1 DAY 03/05/19 - Final, Resulted 03/05/19 - Final, Resulted 03/05/19 - Final, Resulted 03/05/19 Gram Stain Evaluation - Final, Resulted 03/05/19 Sputum Culture, Resulted Pending 03/02/19 Urine Culture - Final, Complete 03/02/19 Urine Culture Result 1 (LUCIO) - Final, Complete Review of Systems Constitutional: yes: unresponsive, other (INTUBATED AND SEDATED) Physical Exam HEENT: Neck Supple W Full Motion Chest: Symmetric, Other Heart: RRR (Sinus tach) Abdomen: Other (obese, anasarca) Extremities: Other (obese, anasarca; RBKA) Neurology: other (sedated) Assessment Assessment 1. Acute respiratory failure secondary to CHF, morbid obesity/likely STEVE, possible pneumonia and ARDS. Vented, pulmonary following 2. Sepsis:per ID. 3. Acute on chronic renal insufficiency/anasarca: Nephrology following 4. Diabetes mellitus type 2: Treat 5. AFIB RVR: New? paroxysmal converted back to sinus tach after lopressor. EF and WM nml 6. HTN: labile Recommendations 1. ASA. Lopressor IV. labetolol IV PRN 2. Defer further lasix to nephrology 3. Supportive care. VAMSHI PEDERSON [employer]ITIONAL [employer] TE[employer] Mar 06, 2019 16:55
[2019-03-06] MEDS ORDERED: ASPIRIN CHEWABLE 81 MG TABLET. PO ONE (17:00)
--- NOTE | 2019-03-06 17:09 | NUR ---
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 Per Nurse, Dr. Amador attributed rash to possible medication reaction, and had significantly improved today from the past few days. 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 No treatment needed at this time. No other open areas noted on head to toe assessment. No further follow up needed at this time.
[2019-03-06] MEDS ORDERED: LABETALOL 20 MG/4 ML DISP.SYRIN. IVP PRN (17:15)
--- NOTE | 2019-03-06 17:43 | NUR ---
RN received order from Dr. Iglesias-- Change Lasix 40 mg IVP to QD. Orders updated in chart. See kidney function labs.
[2019-03-06] MEDS: METOPROLOL TARTRATE 5 MG/5 ML VIAL. IVP SCH ×2 (18:19→23:03)
--- NOTE | 2019-03-06 18:28 | NUR ---
RN notified AMY Monahan, of pts increased and irregular HR. Received new orders for Metoprolol IVP and ASA PO. Orders had been received previously this shift from Dr. Freed for Metoprolol 1x IVP for atrial fibrillation. Pt returned into atrial fibrillation RVR before AMY Monahan, had been notified. VS currently stable. Pt currently in sinus rhythm, HR 90. See documentation.
--- NOTE | 2019-03-06 21:53 | NUR ---
During bath patients HR became irregular and up to 150s-170s. Patient bolused with sedation and PRN Labetalol given but no change in patient status. Dr. Flores notified of change of condition--orders received to give 0.25 mg IV Digoxin and wait an hour--if patient's HR not <130 start Cardizem gtt and titrate as needed to keep HR down.
[2019-03-07] VITALS (24 sets, daily range): BP systolic 97–175; BP diastolic 52–77
[2019-03-07] MEDS: dilTIAZem INJ 125 MG in IV DEXTROSE 5% 100ML 100 ML IV PRN ×3 (00:19→21:59)
[2019-03-07] MEDS: MIDAZOLAM 100mg/100ml NS BAG 100 ML IV PRN ×3 (04:11→21:08)
[2019-03-07] MEDS: CEFEPIME HCL IV Push 2 GM VIAL. IVP SCH ×3 (05:30→21:59)
[2019-03-07] MEDS: METOPROLOL TARTRATE 5 MG/5 ML VIAL. IVP SCH ×3 (05:30→17:03)
[2019-03-07] MEDS: HEPARIN for SUB-Q USE 5,000 UNIT/ML VIAL. SQ SCH ×3 (05:32→22:00)
[2019-03-07 05:40] LABS: ALBUMIN/GLOBULIN RATIO 0.4 (1.0-1.7); CALCIUM 8.2 mg/dL (8.5-10.1); CREATININE 2.1 mg/dL (0.7-1.3); GFR 32.8; POTASSIUM 4.7 mmol/L (3.5-5.1); TOTAL BILIRUBIN 0.4 mg/dL (0.2-1.0); TOTAL PROTEIN 6.6 g/dL (6.4-8.2)
[2019-03-07 05:47] LABS: BASO % 0 % (0-3); EOS # 0.3 x10^3/uL (0.0-0.7); EOS % 3 % (0-3); HEMATOCRIT 40.4 % (39.0-53.0); LYMPH # 0.7 x10^3/uL (1.0-4.8); LYMPH % 9 % (24-48); MEAN CORPUSCULAR HEMOGLOBIN 31 pg (25-35); MEAN CORPUSCULAR HGB CONC 32 g/dL (31-37); MEAN CORPUSCULAR VOLUME 96 fL (79-100); MONO # 0.8 x10^3/uL (0.0-1.1); MONO % 10 % (0-9); NEUT # 6.7 x10^3uL (1.8-7.7); NEUT % 78 % (31-73); PLATELET COUNT 200 x10^3/uL (140-400); RED BLOOD COUNT 4.22 x10^6/uL (4.30-5.70); RED CELL DISTRIBUTION WIDTH 14.4 % (11.5-14.5); WHITE BLOOD COUNT 8.6 x10^3/uL (4.0-11.0)
--- NOTE | 2019-03-07 06:35 | PDOC ---
PULMONARY PROGRESS NOTES Subjective on vent, sedated, on fentanyl versed, small ett secretion, 80% FIO2/ 10 PEEP NO IMPROVEMENT IN OXYGENATION DESPITE DIURESIS Vitals Vital Signs Date Time Temp Pulse Resp B/P (MAP) Pulse Ox O2 Delivery O2 Flow Rate FiO2 03/07/19 06:00 75 14 137/66 (89) 96 Ventilator 03/07/19 04:00 98.7 98.7 03/07/19 01:04 4.0 Comments ros as mentioned as above discussed w rn, rt other sys otherwise neg on vent sedated HEENT: Other (nc at perrl nose clear orally intubated neck, no lad no thyromegaly) Lungs: Crackles, Other (decrease bs) Cardiovascular: S1, S2, Other (decrease bs) Abdomen: Soft, Non-tender, Other (OBESE no mass) Extremities: Other (venous stasis left, right BKA) Skin: Warm Labs Laboratory Tests Test 03/05/19 07:20 03/05/19 12:14 03/05/19 21:22 03/06/19 04:45 O2 Saturation 94 % (92-99) Arterial Blood pH 7.35 (7.35-7.45) Arterial Blood pCO2 at Patient Temp 61 mmHg (35-46) Arterial Blood pO2 at Patient Temp 75 mmHg (75-108) Arterial Blood HCO3 33 mmol/L (21-28) Arterial Blood Base Excess 5 mmol/L (-3-3) FiO2 80 Glucose (Fingerstick) 202 mg/dL (70-99) 162 mg/dL (70-99) White Blood Count 8.5 x10^3/uL (4.0-11.0) Red Blood Count 4.12 x10^6/uL (4.30-5.70) Hemoglobin 12.5 g/dL (13.0-17.5) Hematocrit 39.2 % (39.0-53.0) Mean Corpuscular Volume 95 fL (79-100) Mean Corpuscular Hemoglobin 30 pg (25-35) Mean Corpuscular Hemoglobin Concent 32 g/dL (31-37) Red Cell Distribution Width 14.3 % (11.5-14.5) Platelet Count 178 x10^3/uL (140-400) Neutrophils (%) (Auto) 84 % (31-73) Lymphocytes (%) (Auto) 5 % (24-48) Monocytes (%) (Auto) 8 % (0-9) Eosinophils (%) (Auto) 3 % (0-3) Basophils (%) (Auto) 0 % (0-3) Neutrophils # (Auto) 7.1 x10^3uL (1.8-7.7) Lymphocytes # (Auto) 0.4 x10^3/uL (1.0-4.8) Monocytes # (Auto) 0.7 x10^3/uL (0.0-1.1) Eosinophils # (Auto) 0.2 x10^3/uL (0.0-0.7) Basophils # (Auto) 0.0 x10^3/uL (0.0-0.2) Segmented Neutrophils % 89 % (35-66) Lymphocytes % 3 % (24-48) Monocytes % 7 % (0-10) Eosinophils % 1 % (0-5) Platelet Estimate Adequate (ADEQUATE) Sodium Level 144 mmol/L (136-145) Potassium Level 5.1 mmol/L (3.5-5.1) Chloride Level 105 mmol/L (98-107) Carbon Dioxide Level 33 mmol/L (21-32) Anion Gap 6 (6-14) Blood Urea Nitrogen 36 mg/dL (8-26) Creatinine 2.0 mg/dL (0.7-1.3) Estimated GFR (Cockcroft-Gault) 34.7 Glucose Level 215 mg/dL (70-99) Calcium Level 8.3 mg/dL (8.5-10.1) Magnesium Level 2.1 mg/dL (1.8-2.4) Test 03/06/19 07:51 03/06/19 08:00 03/06/19 08:50 03/06/19 20:41 Glucose (Fingerstick) 208 mg/dL (70-99) 185 mg/dL (70-99) O2 Saturation 94 % (92-99) Arterial Blood pH 7.35 (7.35-7.45) Arterial Blood pCO2 at Patient Temp 62 mmHg (35-46) Arterial Blood pO2 at Patient Temp 73 mmHg (75-108) Arterial Blood HCO3 33 mmol/L (21-28) Arterial Blood Base Excess 5 mmol/L (-3-3) FiO2 80 Urine Eosinophils Eos not observed Test 03/07/19 05:15 White Blood Count 8.6 x10^3/uL (4.0-11.0) Red Blood Count 4.22 x10^6/uL (4.30-5.70) Hemoglobin 13.0 g/dL (13.0-17.5) Hematocrit 40.4 % (39.0-53.0) Mean Corpuscular Volume 96 fL (79-100) Mean Corpuscular Hemoglobin 31 pg (25-35) Mean Corpuscular Hemoglobin Concent 32 g/dL (31-37) Red Cell Distribution Width 14.4 % (11.5-14.5) Platelet Count 200 x10^3/uL (140-400) Neutrophils (%) (Auto) 78 % (31-73) Lymphocytes (%) (Auto) 9 % (24-48) Monocytes (%) (Auto) 10 % (0-9) Eosinophils (%) (Auto) 3 % (0-3) Basophils (%) (Auto) 0 % (0-3) Neutrophils # (Auto) 6.7 x10^3uL (1.8-7.7) Lymphocytes # (Auto) 0.7 x10^3/uL (1.0-4.8) Monocytes # (Auto) 0.8 x10^3/uL (0.0-1.1) Eosinophils # (Auto) 0.3 x10^3/uL (0.0-0.7) Basophils # (Auto) 0.0 x10^3/uL (0.0-0.2) Sodium Level 143 mmol/L (136-145) Potassium Level 4.7 mmol/L (3.5-5.1) Chloride Level 105 mmol/L (98-107) Carbon Dioxide Level 33 mmol/L (21-32) Anion Gap 5 (6-14) Blood Urea Nitrogen 51 mg/dL (8-26) Creatinine 2.1 mg/dL (0.7-1.3) Estimated GFR (Cockcroft-Gault) 32.8 BUN/Creatinine Ratio 24 (6-20) Glucose Level 202 mg/dL (70-99) Calcium Level 8.2 mg/dL (8.5-10.1) Total Bilirubin 0.4 mg/dL (0.2-1.0) Aspartate Amino Transf (AST/SGOT) 36 U/L (15-37) Alanine Aminotransferase (ALT/SGPT) 30 U/L (16-63) Alkaline Phosphatase 74 U/L (46-116) Total Protein 6.6 g/dL (6.4-8.2) Albumin 2.0 g/dL (3.4-5.0) Albumin/Globulin Ratio 0.4 (1.0-1.7) Laboratory Tests Test 03/06/19 07:51 03/06/19 08:00 03/06/19 08:50 03/06/19 20:41 Glucose (Fingerstick) 208 mg/dL (70-99) 185 mg/dL (70-99) O2 Saturation 94 % (92-99) Arterial Blood pH 7.35 (7.35-7.45) Arterial Blood pCO2 at Patient Temp 62 mmHg (35-46) Arterial Blood pO2 at Patient Temp 73 mmHg (75-108) Arterial Blood HCO3 33 mmol/L (21-28) Arterial Blood Base Excess 5 mmol/L (-3-3) FiO2 80 Urine Eosinophils Eos not observed Test 03/07/19 05:15 White Blood Count 8.6 x10^3/uL (4.0-11.0) Red Blood Count 4.22 x10^6/uL (4.30-5.70) Hemoglobin 13.0 g/dL (13.0-17.5) Hematocrit 40.4 % (39.0-53.0) Mean Corpuscular Volume 96 fL (79-100) Mean Corpuscular Hemoglobin 31 pg (25-35) Mean Corpuscular Hemoglobin Concent 32 g/dL (31-37) Red Cell Distribution Width 14.4 % (11.5-14.5) Platelet Count 200 x10^3/uL (140-400) Neutrophils (%) (Auto) 78 % (31-73) Lymphocytes (%) (Auto) 9 % (24-48) Monocytes (%) (Auto) 10 % (0-9) Eosinophils (%) (Auto) 3 % (0-3) Basophils (%) (Auto) 0 % (0-3) Neutrophils # (Auto) 6.7 x10^3uL (1.8-7.7) Lymphocytes # (Auto) 0.7 x10^3/uL (1.0-4.8) Monocytes # (Auto) 0.8 x10^3/uL (0.0-1.1) Eosinophils # (Auto) 0.3 x10^3/uL (0.0-0.7) Basophils # (Auto) 0.0 x10^3/uL (0.0-0.2) Sodium Level 143 mmol/L (136-145) Potassium Level 4.7 mmol/L (3.5-5.1) Chloride Level 105 mmol/L (98-107) Carbon Dioxide Level 33 mmol/L (21-32) Anion Gap 5 (6-14) Blood Urea Nitrogen 51 mg/dL (8-26) Creatinine 2.1 mg/dL (0.7-1.3) Estimated GFR (Cockcroft-Gault) 32.8 BUN/Creatinine Ratio 24 (6-20) Glucose Level 202 mg/dL (70-99) Calcium Level 8.2 mg/dL (8.5-10.1) Total Bilirubin 0.4 mg/dL (0.2-1.0) Aspartate Amino Transf (AST/SGOT) 36 U/L (15-37) Alanine Aminotransferase (ALT/SGPT) 30 U/L (16-63) Alkaline Phosphatase 74 U/L (46-116) Total Protein 6.6 g/dL (6.4-8.2) Albumin 2.0 g/dL (3.4-5.0) Albumin/Globulin Ratio 0.4 (1.0-1.7) Medications Active Scripts Medications Dose Route/Sig Max Daily Dose Days Date Category Proair Hfa Inhaler (Albuterol Sulfate) 8.5 Gm Hfa.aer.ad 1 Puff INH PRN Q6HRS PRN 02/27/19 Reported Lantus Solostar (Insulin Glargine,Hum.rec.anlog) 100 Unit/1 Ml Insuln.pen 20 Unit SQ QHS 02/27/19 Reported Humalog (Insulin Lispro) 100 Unit/1 Ml Cartridge 6 Unit SQ TIDWMEALS 02/27/19 Reported Doxazosin Mesylate 2 Mg Tablet 2 Mg PO DAILY 02/27/19 Reported Omeprazole 40 Mg Capsule.dr 40 Mg PO DAILY 02/27/19 Reported Amlodipine Besylate 10 Mg Tablet 10 Mg PO DAILY 02/27/19 Reported Atorvastatin Calcium 20 Mg Tablet 20 Mg PO DAILY 02/27/19 Reported Atenolol 50 Mg Tablet 50 Mg PO DAILY 02/27/19 Reported Losartan Potassium 100 Mg Tablet 100 Mg PO DAILY 02/27/19 Reported Aspirin 81 Mg Tab.chew 81 Mg PO DAILY 02/27/19 Reported Glyburide 5 Mg Tablet 1 Tab PO BID 11/09/16 Reported Comments CXR 03/07, reviewed, 1. Unchanged bilateral perihilar and basilar predominant heterogenous airspace opacities. 2. Unchanged likely small bilateral pleural effusions. ett ok Impression . 1. Acute hypoxemic /hypercapnic respiratory failure./ ARDS clinically 2. Suspected sepsis./ ARDS 3. In-house cardiopulmonary arrest. 4. Normal EF / mild Pulmonary HTN 5. Acute on chronic right-sided heart failure. 6. Possible pneumonia. 7. Morbid obesity. 8. Diabetes. 9. ANASARCA 10. Abnormal CXR <Conclusion>ECHO The left ventricular systolic function is normal. The ejection fraction is 60-65%. There is normal LV segmental wall motion. Transmitral Doppler flow pattern is Grade I-abnormal relaxation pattern. Trace tricuspid regurgitation. Estimated PAP 33-38 mmHg. There is no evidence of significant pericardial effusion. VENOUS 02/28 Impression: 1. There is no evidence of deep venous thrombosis from the bilateral common femoral to popliteal veins. 2. There is nonspecific right groin lymph node. Plan . cont vent support, setting reviewed, AC MODE 80% PEEP of 10/, titrate fio2 to keep sat 94%, abg reviewed change vt to 500 (low vt for ards), rr to 22 abg will review NOT READY FOR ANY WEANING ANITBX PER ID lasix pre nephro, monitor k, cr bilateral venous Dopplers of lower extremities.NEG DVT and GI prophylaxis. Follow Cardiology.rec Enteral nutrition Prognosis guarded Follow cxr elevate hob d/w RN/ RT dr french discussed w patients sister in [place] again 03/05. Prognosis explained. code status discussed. full code MALINDA CR MD Mar 07, 2019 06:35
[2019-03-07] MEDS: METOCLOPRAMIDE HCL 10 MG/2 ML VIAL. IV SCH ×4 (08:00→23:32)
[2019-03-07] MEDS: FUROSEMIDE 40 MG/4 ML VIAL. IVP SCH (08:08)
[2019-03-07] MEDS: ASPIRIN CHEWABLE 81 MG TABLET. PO SCH (08:09)
[2019-03-07] MEDS: FAMOTIDINE 20 MG/2 ML VIAL IVP SCH ×2 (08:09→21:04)
[2019-03-07] MEDS: NYSTATIN 100,000 UNIT/GM TOPICAL CREAM 15GM TUBE. TP SCH ×2 (08:09→21:04)
[2019-03-07] MEDS: INSULIN GLARGINE 300 UNITS/3 ML INSULN.PEN. SQ SCH ×2 (08:11→21:06)
[2019-03-07] MEDS: IPRATRPIUM/ALBUTEROL 0.5/2.5MG 3 ML NEBU. NEB SCH ×4 (08:39→20:31)
--- NOTE | 2019-03-07 08:49 | RAD ---
AP view of the chest. Comparison: Chest radiograph dated 03/05/2019. Indication: Respiratory failure Findings: Unchanged endotracheal tube, enteric tube, and right IJ central venous catheter. Unchanged lung volume. Unchanged bilateral perihilar and basilar predominant heterogenous airspace opacities. Unchanged pulmonary vascular indistinctness. Unchanged likely small bilateral pleural effusions. Unchanged cardiomegaly. Great vessels of the thorax are unchanged. IMPRESSION: 1. Unchanged bilateral perihilar and basilar predominant heterogenous airspace opacities. 2. Unchanged likely small bilateral pleural effusions. 3. Unchanged life support devices as above. Electronically signed by: Leopoldo Magdaleno MD (03/07/2019 8:46 AM) [facility]
--- NOTE | 2019-03-07 08:57 | PDOC ---
Infectious Disease Note Subjective Subjective Intubated, FiO2 80% Sedated No fevers last 24 hours Tube feedings ROS ROS unobtainable Vital Sign Vital Signs Vital Signs Date Time Temp Pulse Resp B/P (MAP) Pulse Ox O2 Delivery O2 Flow Rate FiO2 03/07/19 07:56 93 Ventilator 03/07/19 06:00 75 14 137/66 (89) 03/07/19 04:00 98.7 98.7 03/07/19 01:04 4.0 Physical Exam PHYSICAL EXAM GENERAL: Sedated and intubated. HEENT: Pupils equally round, normal conj. resists eye opening. ETT. OGT NECK: Supple. LUNGS: Decreased in bases HEART: S1, S2. ABDOMEN: Obese, decreased bowel sounds. GENITOURINARY: [place] - He has 3+ scrotal swelling with less erythema. No gross warmth. EXTREMITIES: No clubbing, cyanosis with 2 + edema. Generalized anasarca. RLE stump with chronic wound. No erythema/fluctuance/warmth SKIN: Warm to touch. 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 except resisted some when pupils examined/sedated [facility] [place] clean Labs Lab Laboratory Tests Test 03/06/19 08:50 03/06/19 20:41 03/07/19 05:15 Urine Eosinophils Eos not observed Glucose (Fingerstick) 185 mg/dL (70-99) White Blood Count 8.6 x10^3/uL (4.0-11.0) Red Blood Count 4.22 x10^6/uL (4.30-5.70) Hemoglobin 13.0 g/dL (13.0-17.5) Hematocrit 40.4 % (39.0-53.0) Mean Corpuscular Volume 96 fL (79-100) Mean Corpuscular Hemoglobin 31 pg (25-35) Mean Corpuscular Hemoglobin Concent 32 g/dL (31-37) Red Cell Distribution Width 14.4 % (11.5-14.5) Platelet Count 200 x10^3/uL (140-400) Neutrophils (%) (Auto) 78 % (31-73) Lymphocytes (%) (Auto) 9 % (24-48) Monocytes (%) (Auto) 10 % (0-9) Eosinophils (%) (Auto) 3 % (0-3) Basophils (%) (Auto) 0 % (0-3) Neutrophils # (Auto) 6.7 x10^3uL (1.8-7.7) Lymphocytes # (Auto) 0.7 x10^3/uL (1.0-4.8) Monocytes # (Auto) 0.8 x10^3/uL (0.0-1.1) Eosinophils # (Auto) 0.3 x10^3/uL (0.0-0.7) Basophils # (Auto) 0.0 x10^3/uL (0.0-0.2) Sodium Level 143 mmol/L (136-145) Potassium Level 4.7 mmol/L (3.5-5.1) Chloride Level 105 mmol/L (98-107) Carbon Dioxide Level 33 mmol/L (21-32) Anion Gap 5 (6-14) Blood Urea Nitrogen 51 mg/dL (8-26) Creatinine 2.1 mg/dL (0.7-1.3) Estimated GFR (Cockcroft-Gault) 32.8 BUN/Creatinine Ratio 24 (6-20) Glucose Level 202 mg/dL (70-99) Calcium Level 8.2 mg/dL (8.5-10.1) Total Bilirubin 0.4 mg/dL (0.2-1.0) Aspartate Amino Transf (AST/SGOT) 36 U/L (15-37) Alanine Aminotransferase (ALT/SGPT) 30 U/L (16-63) Alkaline Phosphatase 74 U/L (46-116) Total Protein 6.6 g/dL (6.4-8.2) Albumin 2.0 g/dL (3.4-5.0) Albumin/Globulin Ratio 0.4 (1.0-1.7) Micro 4/4. SPUTUM CULT RES 1 Final No growth in 36 - 48 hours. 4/4. BLOOD CULTURE Preliminary NO GROWTH AFTER 1 DAY Objective Assessment Fever - ? Infection vs ileus vs drug reaction, better Flank rash - no Eosinophilia but ? drug - had been on micafungin so less likely yeast Tachycardia - s/p Bolus/Digoxin and Metoprolol Increased GI residuals - Has been on/off ? Ileus vs DM gastroparesis Acute respiratory failure, intubated, increased infiltrates today - ARDS Scrotal edema/cellulitis. Status post code. Fluid overload - mild increase Acute kidney injury - worse Distant history of group B strep, Acinetobacter, Porphyromonas, plus anaerobes. Plan Plan of Care Rash present slightly per nursing evening 03/04 into 03/05. Cefepime/Flagyl began 03/05 post rash Nystatin Previously on Zyvox, Merrem and micafungin Would check other meds as potential for rash ? lasix, etc Urine eosinophils not observe May need additional imaging F/u labs/cults Supportive care Critically ill Attending Co-Sign The patient was seen and interviewed as well as examined at the bedside. The chart was reviewed. The case was discussed. Agree with the plan of care. LYNDSAY PIZARRO APRN Mar 07, 2019 08:57 HEIDY RAMIREZ MD Mar 07, 2019 10:41
[2019-03-07 09:14] LABS: BASE EXCESS ABG 5 mmol/L (-3-3); HCO3 ABG 33 mmol/L (21-28); PO2 ABG 81 mmHg (75-108); SAT O2 ABG 95 % (92-99)
[2019-03-07 09:17] LABS: FIO2 ABG 80; PCO2 ABG 68 mmHg (35-46)
--- NOTE | 2019-03-07 10:57 | PDOC ---
PROGRESS NOTES Chief Complaint Chief Complaint Assessment/Plan ACUTE RESP ARREST POST CODE ON FLOOR 02/27 Acute respiratory failure secondary to congestive heart failure, most probably acute on chronic diastolic. s/p intubation. Myocardial infarction ruled out. Hypernatremia secondary to severe dehydration will need to provide water flushes in order to correct electrolyte disturbance. High residuals on tube feedings no evidence of obstructive pattern on x ray done 03/05/2019 3 weeks of bilateral general scrotal swelling and tenderness. +dyspnea, abd swelling, leg swelling. POA, Dm2 obesity, extreme, morbid hx RLE BKA RLE stump with chronic wound. No erythema/warmth left foot nail onychomycosis needs attention when more clinically stable Acute renal failure ATN Renal CONSULT 3.1-1.8 chronic venous insuff left lower leg nonspecific perinephric stranding with slight asymmetric stranding adjacent to the left renal pelvis. Findings may be due to chronic kidney disease, though ascending urinary tract infection is not excluded. Bilateral lower lobe consolidation concerning for multifocal pneumonia aspiration not excluded. Right renal hypodensity measuring 2.5 cm is incompletely evaluated on noncontrast examination. Follow-up MRI or CT abdomen and pelvis renal protocol with contrast is recommended for further evaluation. Anasarca. bilateral external iliac lymphadenopathy, may be reactive, though follow-up CT abdomen and pelvis in 3 months is recommended to assess for stability/resolution. Nonobstructive left nephrolithiasis. Coronary artery calcifications. The left ventricular systolic function is normal.ejection fraction is 60-65% .normal LV segmental wall motion. Transmitral Doppler flow pattern is Grade I-abnormal relaxation pattern. Trace tricuspid regurgitation. Estimated PAP 33-38 mmHg. PLAN continue with suportive measures constipation resolved ventilatory support still requiring 80% and PEEP of 10 follow recommendations from cosmetic consultant. UROLOGY CONSULT reviewed no intervention needed except for elevation and diuresis ID CONSULT continue wtih antibiotic as per ID ECHO noted critically stable. History of Present Illness History of Present Illness Patient with no acute events reported overnight.less distention after several bowel movements yesterday, continues to require mechanical ventilation, Vitals Vitals Vital Signs Date Time Temp Pulse Resp B/P (MAP) Pulse Ox O2 Delivery O2 Flow Rate FiO2 03/07/19 10:00 88 18 121/65 (83) 97 Ventilator 03/07/19 08:00 99.4 99.4 03/07/19 01:04 4.0 Physical Exam Physical Exam GENERAL: Sedated and intubated. HEENT: Pupils equally round, normal conj. resists eye opening. ETT. OGT NECK: Supple. LUNGS: Decreased in bases HEART: S1, S2. ABDOMEN: Obese, decreased bowel sounds. GENITOURINARY: [place] - He has 3+ scrotal swelling with less erythema. No gross warmth. EXTREMITIES: No clubbing, cyanosis with 2 + edema. Generalized anasarca. RLE stump with chronic wound. No erythema/fluctuance/warmth SKIN: Warm to touch. 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: Unresponsive except resisted some when pupils examined/sedated RIJ clean General: Other (SEDATED) Heart: Regular rate, Normal S1, Normal S2, No murmurs, Gallops Lungs: Crackles, Other (decrease bs) Abdomen: Soft, No tenderness, Other (VERY OBESE) Extremities: No cyanosis, Other (ANASARCA) Skin: Other (scale, lower leg ) Labs LABS Laboratory Tests Test 03/06/19 20:41 03/07/19 05:15 03/07/19 08:00 Glucose (Fingerstick) 185 mg/dL (70-99) White Blood Count 8.6 x10^3/uL (4.0-11.0) Red Blood Count 4.22 x10^6/uL (4.30-5.70) Hemoglobin 13.0 g/dL (13.0-17.5) Hematocrit 40.4 % (39.0-53.0) Mean Corpuscular Volume 96 fL (79-100) Mean Corpuscular Hemoglobin 31 pg (25-35) Mean Corpuscular Hemoglobin Concent 32 g/dL (31-37) Red Cell Distribution Width 14.4 % (11.5-14.5) Platelet Count 200 x10^3/uL (140-400) Neutrophils (%) (Auto) 78 % (31-73) Lymphocytes (%) (Auto) 9 % (24-48) Monocytes (%) (Auto) 10 % (0-9) Eosinophils (%) (Auto) 3 % (0-3) Basophils (%) (Auto) 0 % (0-3) Neutrophils # (Auto) 6.7 x10^3uL (1.8-7.7) Lymphocytes # (Auto) 0.7 x10^3/uL (1.0-4.8) Monocytes # (Auto) 0.8 x10^3/uL (0.0-1.1) Eosinophils # (Auto) 0.3 x10^3/uL (0.0-0.7) Basophils # (Auto) 0.0 x10^3/uL (0.0-0.2) Sodium Level 143 mmol/L (136-145) Potassium Level 4.7 mmol/L (3.5-5.1) Chloride Level 105 mmol/L (98-107) Carbon Dioxide Level 33 mmol/L (21-32) Anion Gap 5 (6-14) Blood Urea Nitrogen 51 mg/dL (8-26) Creatinine 2.1 mg/dL (0.7-1.3) Estimated GFR (Cockcroft-Gault) 32.8 BUN/Creatinine Ratio 24 (6-20) Glucose Level 202 mg/dL (70-99) Calcium Level 8.2 mg/dL (8.5-10.1) Total Bilirubin 0.4 mg/dL (0.2-1.0) Aspartate Amino Transf (AST/SGOT) 36 U/L (15-37) Alanine Aminotransferase (ALT/SGPT) 30 U/L (16-63) Alkaline Phosphatase 74 U/L (46-116) Total Protein 6.6 g/dL (6.4-8.2) Albumin 2.0 g/dL (3.4-5.0) Albumin/Globulin Ratio 0.4 (1.0-1.7) O2 Saturation 95 % (92-99) Arterial Blood pH 7.31 (7.35-7.45) Arterial Blood pCO2 at Patient Temp 68 mmHg (35-46) Arterial Blood pO2 at Patient Temp 81 mmHg (75-108) Arterial Blood HCO3 33 mmol/L (21-28) Arterial Blood Base Excess 5 mmol/L (-3-3) FiO2 80 Assessment and Plan Assessmemt and Plan Problems Medical Problems: (1) Acute renal failure Status: Acute (2) Edema Status: Acute (3) Shortness of breath Status: Acute Comment Review of Relevant I have reviewed the following items pascual (where applicable) has been applied. Labs Laboratory Tests Test 03/05/19 12:14 03/05/19 21:22 03/06/19 04:45 03/06/19 07:51 Glucose (Fingerstick) 202 mg/dL (70-99) 162 mg/dL (70-99) 208 mg/dL (70-99) White Blood Count 8.5 x10^3/uL (4.0-11.0) Red Blood Count 4.12 x10^6/uL (4.30-5.70) Hemoglobin 12.5 g/dL (13.0-17.5) Hematocrit 39.2 % (39.0-53.0) Mean Corpuscular Volume 95 fL (79-100) Mean Corpuscular Hemoglobin 30 pg (25-35) Mean Corpuscular Hemoglobin Concent 32 g/dL (31-37) Red Cell Distribution Width 14.3 % (11.5-14.5) Platelet Count 178 x10^3/uL (140-400) Neutrophils (%) (Auto) 84 % (31-73) Lymphocytes (%) (Auto) 5 % (24-48) Monocytes (%) (Auto) 8 % (0-9) Eosinophils (%) (Auto) 3 % (0-3) Basophils (%) (Auto) 0 % (0-3) Neutrophils # (Auto) 7.1 x10^3uL (1.8-7.7) Lymphocytes # (Auto) 0.4 x10^3/uL (1.0-4.8) Monocytes # (Auto) 0.7 x10^3/uL (0.0-1.1) Eosinophils # (Auto) 0.2 x10^3/uL (0.0-0.7) Basophils # (Auto) 0.0 x10^3/uL (0.0-0.2) Segmented Neutrophils % 89 % (35-66) Lymphocytes % 3 % (24-48) Monocytes % 7 % (0-10) Eosinophils % 1 % (0-5) Platelet Estimate Adequate (ADEQUATE) Sodium Level 144 mmol/L (136-145) Potassium Level 5.1 mmol/L (3.5-5.1) Chloride Level 105 mmol/L (98-107) Carbon Dioxide Level 33 mmol/L (21-32) Anion Gap 6 (6-14) Blood Urea Nitrogen 36 mg/dL (8-26) Creatinine 2.0 mg/dL (0.7-1.3) Estimated GFR (Cockcroft-Gault) 34.7 Glucose Level 215 mg/dL (70-99) Calcium Level 8.3 mg/dL (8.5-10.1) Magnesium Level 2.1 mg/dL (1.8-2.4) Test 03/06/19 08:00 03/06/19 08:50 03/06/19 20:41 03/07/19 05:15 O2 Saturation 94 % (92-99) Arterial Blood pH 7.35 (7.35-7.45) Arterial Blood pCO2 at Patient Temp 62 mmHg (35-46) Arterial Blood pO2 at Patient Temp 73 mmHg (75-108) Arterial Blood HCO3 33 mmol/L (21-28) Arterial Blood Base Excess 5 mmol/L (-3-3) FiO2 80 Urine Eosinophils Eos not observed Glucose (Fingerstick) 185 mg/dL (70-99) White Blood Count 8.6 x10^3/uL (4.0-11.0) Red Blood Count 4.22 x10^6/uL (4.30-5.70) Hemoglobin 13.0 g/dL (13.0-17.5) Hematocrit 40.4 % (39.0-53.0) Mean Corpuscular Volume 96 fL (79-100) Mean Corpuscular Hemoglobin 31 pg (25-35) Mean Corpuscular Hemoglobin Concent 32 g/dL (31-37) Red Cell Distribution Width 14.4 % (11.5-14.5) Platelet Count 200 x10^3/uL (140-400) Neutrophils (%) (Auto) 78 % (31-73) Lymphocytes (%) (Auto) 9 % (24-48) Monocytes (%) (Auto) 10 % (0-9) Eosinophils (%) (Auto) 3 % (0-3) Basophils (%) (Auto) 0 % (0-3) Neutrophils # (Auto) 6.7 x10^3uL (1.8-7.7) Lymphocytes # (Auto) 0.7 x10^3/uL (1.0-4.8) Monocytes # (Auto) 0.8 x10^3/uL (0.0-1.1) Eosinophils # (Auto) 0.3 x10^3/uL (0.0-0.7) Basophils # (Auto) 0.0 x10^3/uL (0.0-0.2) Sodium Level 143 mmol/L (136-145) Potassium Level 4.7 mmol/L (3.5-5.1) Chloride Level 105 mmol/L (98-107) Carbon Dioxide Level 33 mmol/L (21-32) Anion Gap 5 (6-14) Blood Urea Nitrogen 51 mg/dL (8-26) Creatinine 2.1 mg/dL (0.7-1.3) Estimated GFR (Cockcroft-Gault) 32.8 BUN/Creatinine Ratio 24 (6-20) Glucose Level 202 mg/dL (70-99) Calcium Level 8.2 mg/dL (8.5-10.1) Total Bilirubin 0.4 mg/dL (0.2-1.0) Aspartate Amino Transf (AST/SGOT) 36 U/L (15-37) Alanine Aminotransferase (ALT/SGPT) 30 U/L (16-63) Alkaline Phosphatase 74 U/L (46-116) Total Protein 6.6 g/dL (6.4-8.2) Albumin 2.0 g/dL (3.4-5.0) Albumin/Globulin Ratio 0.4 (1.0-1.7) Test 03/07/19 08:00 O2 Saturation 95 % (92-99) Arterial Blood pH 7.31 (7.35-7.45) Arterial Blood pCO2 at Patient Temp 68 mmHg (35-46) Arterial Blood pO2 at Patient Temp 81 mmHg (75-108) Arterial Blood HCO3 33 mmol/L (21-28) Arterial Blood Base Excess 5 mmol/L (-3-3) FiO2 80 Laboratory Tests Test 03/06/19 20:41 03/07/19 05:15 03/07/19 08:00 Glucose (Fingerstick) 185 mg/dL (70-99) White Blood Count 8.6 x10^3/uL (4.0-11.0) Red Blood Count 4.22 x10^6/uL (4.30-5.70) Hemoglobin 13.0 g/dL (13.0-17.5) Hematocrit 40.4 % (39.0-53.0) Mean Corpuscular Volume 96 fL (79-100) Mean Corpuscular Hemoglobin 31 pg (25-35) Mean Corpuscular Hemoglobin Concent 32 g/dL (31-37) Red Cell Distribution Width 14.4 % (11.5-14.5) Platelet Count 200 x10^3/uL (140-400) Neutrophils (%) (Auto) 78 % (31-73) Lymphocytes (%) (Auto) 9 % (24-48) Monocytes (%) (Auto) 10 % (0-9) Eosinophils (%) (Auto) 3 % (0-3) Basophils (%) (Auto) 0 % (0-3) Neutrophils # (Auto) 6.7 x10^3uL (1.8-7.7) Lymphocytes # (Auto) 0.7 x10^3/uL (1.0-4.8) Monocytes # (Auto) 0.8 x10^3/uL (0.0-1.1) Eosinophils # (Auto) 0.3 x10^3/uL (0.0-0.7) Basophils # (Auto) 0.0 x10^3/uL (0.0-0.2) Sodium Level 143 mmol/L (136-145) Potassium Level 4.7 mmol/L (3.5-5.1) Chloride Level 105 mmol/L (98-107) Carbon Dioxide Level 33 mmol/L (21-32) Anion Gap 5 (6-14) Blood Urea Nitrogen 51 mg/dL (8-26) Creatinine 2.1 mg/dL (0.7-1.3) Estimated GFR (Cockcroft-Gault) 32.8 BUN/Creatinine Ratio 24 (6-20) Glucose Level 202 mg/dL (70-99) Calcium Level 8.2 mg/dL (8.5-10.1) Total Bilirubin 0.4 mg/dL (0.2-1.0) Aspartate Amino Transf (AST/SGOT) 36 U/L (15-37) Alanine Aminotransferase (ALT/SGPT) 30 U/L (16-63) Alkaline Phosphatase 74 U/L (46-116) Total Protein 6.6 g/dL (6.4-8.2) Albumin 2.0 g/dL (3.4-5.0) Albumin/Globulin Ratio 0.4 (1.0-1.7) O2 Saturation 95 % (92-99) Arterial Blood pH 7.31 (7.35-7.45) Arterial Blood pCO2 at Patient Temp 68 mmHg (35-46) Arterial Blood pO2 at Patient Temp 81 mmHg (75-108) Arterial Blood HCO3 33 mmol/L (21-28) Arterial Blood Base Excess 5 mmol/L (-3-3) FiO2 80 Microbiology 03/05/19 Blood Culture - Preliminary, Resulted NO GROWTH AFTER 1 DAY 03/05/19 - Final, Resulted 03/05/19 - Final, Resulted 03/05/19 - Final, Resulted 03/05/19 Gram Stain Evaluation - Final, Resulted 03/05/19 Sputum Culture - Preliminary, Resulted 03/05/19 Sputum Result 1 - Final, Resulted 03/02/19 Urine Culture - Final, Complete 03/02/19 Urine Culture Result 1 (LUCIO) - Final, Complete Medications Current Medications Ondansetron HCl (Zofran) 4 mg PRN Q8HRS PRN IV NAUSEA/VOMITING; Start 02/27/19 at 16:45; Stop 02/28/19 at 16:44; Status DC Morphine Sulfate (Morphine Sulfate) 2 mg PRN Q2HR PRN IV PAIN; Start 02/27/19 at 16:45; Stop 02/28/19 at 16:44; Status DC Acetaminophen (Tylenol) 650 mg PRN Q4HRS PRN PO FEVER Last administered on 02/27at 21:06; Start 02/27/19 at 16:45; Stop 02/28/19 at 16:44; Status DC Dextrose (Dextrose 50%-Water Syringe) 12.5 gm PRN Q15MIN PRN IV SEE COMMENTS; Start 02/27/19 at 16:45 Heparin Sodium (Porcine) (Heparin Sodium) 5,000 unit Q8HRS SQ Last administered on 03/07/19at 05:32; Start 02/27/19 at 17:00 Lorazepam (Ativan) 1 mg PRN Q8HRS PRN IV ANXIETY / AGITATION Last administered on 03/05/19at 22:50; Start 02/28/19 at 02:45 Etomidate (Amidate) 20 mg STK-MED ONCE IV ; Start 02/28/19 at 06:59; Stop at 07:00; Status DC Rocuronium Murray (Zemuron) 50 mg STK-MED ONCE .ROUTE ; Start 02/28/19 at 07:00 ; Stop 02/28/19 at 09:42; Status DC Dopamine HCl/ Dextrose 250 ml @ 12.266 mls/ hr CONT PRN IV SEE I/O RECORD Last administered on 02/28/19at 08:06; Start 02/28/19 at 07:15 Fentanyl Citrate 30 ml @ 0 mls/hr CONT PRN IV SEE PROTOCOL; Start 02/28/19 at 07:15; Stop 02/28/19 at 07:59; Status DC Propofol 100 ml @ 0 mls/hr CONT PRN IV SEE PROTOCOL; Start 02/28/19 at 07:15; Stop 02/28/19 at 07:59; Status DC Fentanyl Citrate (Fentanyl 2ml Vial) 25 mcg PRN Q1HR PRN IV SEE COMMENTS; Start 02/28/19 at 07:15; Stop 02/28/19 at 07:59; Status DC Fentanyl Citrate (Fentanyl 2ml Vial) 50 mcg PRN Q1HR PRN IV SEE COMMENTS; Start 02/28/19 at 07:15; Stop 02/28/19 at 07:59; Status DC Midazolam HCl 100 ml @ 0 mls/hr CONT PRN IV SEE PROTOCOL Last administered on at 04:11; Start 02/28/19 at 07:15 Sodium Chloride 1,000 ml @ 1,000 mls/hr Q1H IV Last administered on 02/28/19at 07:32; Start 02/28/19 at 07:32; Stop 02/28/19 at 10:09; Status DC Fentanyl Citrate (Fentanyl 2ml Vial) 25 mcg PRN Q30MIN PRN IV see comments; Start 02/28/19 at 07:45; Stop 02/28/19 at 09:42; Status DC Lorazepam (Ativan) 1 mg PRN Q30MIN PRN IV SEDATION; Start 02/28/19 at 07:45; Stop 02/28/19 at 09:42; Status DC Fentanyl Citrate 30 ml @ 2.5 mls/hr CONT PRN PRN IV SEE I/O RECORD Last administered on 03/05/19at 03:44; Start 02/28/19 at 07:45; Stop 03/05/19 at 04:40; Status DC Propofol 100 ml @ 0 mls/hr CONT PRN IV SEE I/O RECORD; Start 02/28/19 at 07:45 Vecuronium Murray (Norcuron Bolus) 10 mg PRN Q30MIN PRN IV SHIVERING; Start at 07:45; Stop 02/28/19 at 09:42; Status DC Meperidine HCl (Demerol) 12.5 mg PRN Q30MIN PRN IV SHIVERING; Start 02/28/19 at 07:45; Stop 02/28/19 at 09:42; Status DC Multi-Ingred Cream/Lotion/Oil/ Oint (Artificial Tears Eye Ointment) 1 jennifer PRN Q6HRS PRN OU 0.5 INCH FOR DRY EYE; Start 02/28/19 at 07:45; Stop 02/28/19 at 09 :42; Status DC Famotidine (Pepcid Vial) 20 mg BID IVP Last administered on 02/28/19at 11:03; Start 02/28/19 at 09:00; Stop 02/28/19 at 14:25; Status DC Aspirin (Aspirin) 300 mg DAILY TN ; Start 02/28/19 at 09:00; Stop 02/28/19 at 09 :42; Status DC Sodium Chloride (Normal Saline Flush) 3 ml QSHIFT PRN IV AFTER MEDS AND BLOOD DRAWS; Start 02/28/19 at 07:45 Acetaminophen (Tylenol) 650 mg Q6HRS NG ; Start 02/28/19 at 12:00; Stop at 12:00; Status DC Acetaminophen (Tylenol Supp) 650 mg PRN Q6HRS PRN TN MILD PAIN / TEMP; Start at 07:45; Stop 03/01/19 at 07:45; Status DC Acetaminophen (Tylenol) 650 mg PRN Q6HRS PRN NG MILD PAIN / TEMP; Start at 07:45; Stop 03/01/19 at 07:45; Status DC Info (Icu Electrolyte Protocol) 1 ea DAILY PRN MC PER PROTOCOL; Start 03/02/19 at 07:45; Stop 03/02/19 at 07:45; Status DC Furosemide (Lasix) 60 mg 1X ONCE IVP Last administered on 02/28/19at 08:30; Start 02/28/19 at 08:30; Stop 02/28/19 at 08:31; Status DC Ceftriaxone Sodium (Rocephin) 1 gm Q24H IVP Last administered on 02/28/19 11: 03; Start 02/28/19 at 11:00; Stop 02/28/19 at 11:18; Status DC Calcium Chloride 1000 mg/Dextrose 60 ml @ 120 mls/hr 1X ONCE IV Last administered on 02/28/19 11:03; Start 02/28/19 at 10:30; Stop 02/28/19 at 10:59 ; Status DC Meropenem 500 mg/ Sodium Chloride 50 ml @ 100 mls/hr Q8HRS IV Last administered on 03/03/19 06:24; Start 02/28/19 at 14:00; Stop 03/03/19 at 07:04; Status DC Linezolid/Dextrose 300 ml @ 300 mls/hr Q12HR IV Last administered on 03/03/19 20:00; Start 02/28/19 at 11:30; Stop 03/04/19 at 08:55; Status DC Micafungin Sodium 100 mg/Dextrose 100 ml @ 100 mls/hr Q24H IV Last administered on 03/04/19 15:53; Start 02/28/19 at 12:00; Stop 03/05/19 at 06:47; Status DC Furosemide (Lasix) 40 mg BID92 IVP Last administered on 03/02/19 14:06; Start 02/28/19 at 14:00; Stop 03/02/19 at 17:02; Status DC Famotidine (Pepcid Vial) 20 mg QHS IVP Last administered on 03/01/19at 21:24; Start 02/28/19 at 21:00; Stop 03/02/19 at 10:07; Status DC Albuterol/ Ipratropium (Duoneb) 3 ml RTQID NEB Last administered on 03/07/19at 08 :39; Start 02/28/19 at 16:00 Haloperidol Lactate (Haldol Inj) 5 mg PRN Q6HRS PRN IVP AGITATION 2ND CHOICE Last administered on 03/04/19 02:11; Start 02/28/19 at 15:15 Vecuronium Murray (Norcuron Bolus) 8 mg PRN Q4HRS PRN IV MUSCLE SPASMS Last administered on 4/3/19at 04:47; Start 02/28/19 at 15:15 Perflutren Protein Type A Microsphe (Optison) 0.66 mg PRN 1X PRN IV SEE COMMENTS; Start 03/01/19 at 10:00; Stop 03/02/19 at 09:59; Status DC Digoxin (Lanoxin) 125 mcg 1X STAT IV ; Start 03/01/19 at 15:34; Stop 03/01/19 at 16:00; Status DC Sodium Chloride 500 ml @ 500 mls/hr 1X ONCE IV Last administered on at 18:46; Start 03/01/19 at 18:45; Stop 03/01/19 at 19:44; Status DC Famotidine (Pepcid Vial) 20 mg Q12HR IVP Last administered on 03/07/19 08:09; Start 03/02/19 at 21:00 Furosemide (Lasix) 40 mg DAILY IVP Last administered on 03/04/19 09:52; Start 03/03/19 at 09:00; Stop 03/04/19 at 12:13; Status DC Acetaminophen (Tylenol Supp) 650 mg PRN Q6HRS PRN TN MILD PAIN / TEMP Last administered on 03/03/19at 17:39; Start 03/02/19 at 17:15 Meropenem 500 mg/ Sodium Chloride 50 ml @ 100 mls/hr Q6HRS IV Last administered on 03/05/19 05:33; Start 03/03/19 at 12:00; Stop 03/05/19 at 06:47; Status DC Albumin Human 100 ml @ 100 mls/hr 1X ONCE IV Last administered on 03/03/19 08 :52; Start 03/03/19 at 08:30; Stop 03/03/19 at 09:29; Status DC Atropine Sulfate (ATROPINE 0.5mg SYRINGE) 2 mg STK-MED ONCE .ROUTE ; Start 02/27 at 16:21; Stop 03/03/19 at 16:22; Status DC Dopamine HCl/ Dextrose (DOPamine 400MG/ 250ML PREMIX) 400 mg STK-MED ONCE IV ; Start 02/27/19 at 16:21; Stop 03/03/19 at 16:22; Status DC Furosemide (Lasix) 40 mg 1X ONCE IVP Last administered on 4/2/19at 18:46; Start 03/03/19 at 18:45; Stop 03/03/19 at 18:46; Status DC Lorazepam 100 mg/ Sodium Chloride 100 ml @ 0 mls/hr CONT PRN IV SEE PROTOCOL Last administered on 03/03/19 22:18; Start 03/03/19 at 22:00 Acetaminophen (Tylenol) 650 mg PRN Q6HRS PRN PEG MILD PAIN / TEMP Last administered on 03/05/19 09:32; Start 03/04/19 at 11:45 Furosemide (Lasix) 40 mg BID92 IVP Last administered on 03/06/19 08:38; Start 03/04/19 at 14:00; Stop 03/06/19 at 13:30; Status DC Fentanyl Citrate 30 ml @ 0 mls/hr CONT PRN IV SEE PROTOCOL Last administered on 03/07/19 05:31; Start 03/05/19 at 04:45 Cefepime HCl (Maxipime) 2 gm Q8HRS IVP Last administered on 03/07/19 05:30; Start 03/05/19 at 06:45 Metronidazole 100 ml @ 100 mls/hr Q8HRS IV Last administered on 03/07/19 05:31 ; Start 03/05/19 at 06:45 Linezolid/Dextrose 300 ml @ 300 mls/hr Q12HR IV Last administered on 03/05/19 21:24; Start 03/05/19 at 09:00; Stop 03/06/19 at 06:42; Status DC Metoclopramide HCl (Reglan Vial) 10 mg QIDACHS IV Last administered on 20:43; Start 03/05/19 at 11:30; Stop 03/07/19 at 07:37; Status DC Insulin Glargine (Lantus) 12 units BID SQ Last administered on 03/07/19 08:11; Start 03/05/19 at 09:00 Digoxin (Lanoxin) 500 mcg 1X ONCE IV Last administered on 03/06/19 00:48; Start 03/06/19 at 00:45; Stop 03/06/19 at 00:46; Status DC Metoprolol Tartrate (Lopressor Vial) 5 mg 1X ONCE IVP Last administered on 03/06 00:53; Start 03/06/19 at 00:45; Stop 03/06/19 at 00:46; Status DC Sodium Chloride 500 ml @ 500 mls/hr 1X ONCE IV Last administered on 03/06/19 00:49; Start 03/06/19 at 00:45; Stop 03/06/19 at 01:44; Status DC Nystatin (Mycostatin) 1 jennifer BID TP Last administered on 03/07/19 08:09; Start 03/06/19 at 09:00 Sodium Cl/Sod Bicarb/Potass Cl/ PEG (Golytely) 2,000 ml 1X ONCE PO Last administered on 03/06/19 09:33; Start 03/06/19 at 08:00; Stop 03/06/19 at 08:01; Status DC Furosemide (Lasix) 40 mg DAILY08 IVP Last administered on 03/07/19 08:08; Start 03/07/19 at 08:00 Metoprolol Tartrate (Lopressor Vial) 10 mg 1X ONCE IVP Last administered on 16:08; Start 03/06/19 at 15:15; Stop 03/06/19 at 15:16; Status DC Metoprolol Tartrate (Lopressor Vial) 5 mg Q6HRS IVP Last administered on 05:30; Start 03/06/19 at 18:00 Aspirin (Children'S Aspirin) 81 mg 1X ONCE PO Last administered on 03/06/19 18 :18; Start 03/06/19 at 17:00; Stop 03/06/19 at 17:01; Status DC Aspirin (Children'S Aspirin) 81 mg DAILYWBKFT PO Last administered on 03/07/19 08:09; Start 03/07/19 at 08:00 Labetalol HCl (Normodyne Iv Push) 20 mg PRN Q2HR PRN IVP HYPERTENSION, SEE COMMENTS Last administered on 03/06/19 21:29; Start 03/06/19 at 17:15 Digoxin (Lanoxin) 250 mcg 1X ONCE IV Last administered on 03/06/19 22:00; Start 03/06/19 at 22:00; Stop 03/06/19 at 22:01; Status DC Diltiazem HCl 125 mg/Dextrose 125 ml @ 5 mls/hr CONT PRN IV SEE I/O RECORD Last administered on 03/07/19at 00:19; Start 03/06/19 at 23:00 Metoclopramide HCl (Reglan Vial) 10 mg Q6HRS IV ; Start 03/07/19 at 08:00 Active Scripts Active Reported Proair Hfa Inhaler (Albuterol Sulfate) 8.5 Gm Hfa.aer.ad 1 Puff INH PRN Q6HRS PRN Lantus Solostar (Insulin Glargine,Hum.rec.anlog) 100 Unit/1 Ml Insuln.pen 20 Unit SQ QHS Humalog (Insulin Lispro) 100 Unit/1 Ml Cartridge 6 Unit SQ TIDWMEALS Doxazosin Mesylate 2 Mg Tablet 2 Mg PO DAILY Omeprazole 40 Mg Capsule.dr 40 Mg PO DAILY Amlodipine Besylate 10 Mg Tablet 10 Mg PO DAILY Atorvastatin Calcium 20 Mg Tablet 20 Mg PO DAILY Atenolol 50 Mg Tablet 50 Mg PO DAILY Losartan Potassium 100 Mg Tablet 100 Mg PO DAILY Aspirin 81 Mg Tab.chew 81 Mg PO DAILY Glyburide 5 Mg Tablet 1 Tab PO BID Vitals/I & O Vital Sign - Last 24 Hours 03/06/19 03/06/19 03/06/19 03/06/19 11:00 11:01 12:00 12:00 Pulse 89 94 Resp 14 14 14 B/P (MAP) 137/87 (104) 157/83 (107) Pulse Ox 93 96 O2 Delivery Ventilator Ventilator Ventilator Mechanical Ventilator 03/06/19 03/06/19 03/06/19 03/06/19 12:16 13:00 13:56 14:00 Pulse 95 95 Resp 14 14 B/P (MAP) 156/82 (106) 156/82 (106) Pulse Ox 98 94 91 94 O2 Delivery Ventilator Ventilator Ventilator Ventilator 03/06/19 03/06/19 03/06/19 03/06/19 15:00 15:03 15:33 16:00 Pulse 98 69 Resp 18 17 17 17 B/P (MAP) 164/74 (104) 105/65 (78) Pulse Ox 92 90 O2 Delivery Ventilator Ventilator Ventilator Ventilator 03/06/19 03/06/19 03/06/19 03/06/19 16:00 16:02 16:08 17:00 Pulse 151 109 Resp 18 B/P (MAP) 110/70 162/69 (100) Pulse Ox 90 92 O2 Delivery Mechanical Ventilator Ventilator Ventilator 03/06/19 03/06/19 03/06/19 03/06/19 17:38 18:00 18:19 19:00 Pulse 100 101 81 Resp 16 14 B/P (MAP) 158/79 (105) 158/79 138/74 (95) Pulse Ox 93 95 95 O2 Delivery Ventilator Ventilator Ventilator 03/06/19 03/06/19 03/06/19 03/06/19 19:35 19:58 20:00 20:18 Temp 99.7 99.7 Pulse 77 Resp 13 B/P (MAP) 104/62 (76) Pulse Ox 95 95 95 O2 Delivery Mechanical Ventilator Ventilator Ventilator O2 Flow Rate 4.0 03/06/19 03/06/19 03/06/19 03/06/19 21:00 21:29 22:00 22:00 Pulse 92 174 157 153 Resp 13 15 B/P (MAP) 144/71 (95) 144/71 105/69 92/58 (69) Pulse Ox 95 93 O2 Delivery Ventilator Ventilator 03/06/19 03/06/19 03/06/19 03/06/19 23:00 23:03 23:35 23:38 Pulse 127 140 Resp 14 B/P (MAP) 103/54 (70) 103/54 Pulse Ox 95 94 O2 Delivery Ventilator Mechanical Ventilator Ventilator 03/07/19 03/07/19 03/07/19 03/07/19 00:00 01:00 01:04 02:00 Temp 99.4 99.4 Pulse 133 82 79 Resp 14 14 13 B/P (MAP) 97/58 (71) 112/63 (79) 104/60 (75) Pulse Ox 94 96 96 96 O2 Delivery Ventilator Ventilator Ventilator O2 Flow Rate 4.0 03/07/19 03/07/19 03/07/19 03/07/19 02:43 03:00 03:45 04:00 Temp 98.7 98.7 Pulse 74 75 Resp 14 13 B/P (MAP) 101/52 (68) 128/66 (86) Pulse Ox 93 93 92 O2 Delivery Ventilator Ventilator Mechanical Ventilator Ventilator 03/07/19 03/07/19 03/07/19 03/07/19 05:00 05:30 05:45 06:00 Pulse 79 75 75 Resp 17 14 B/P (MAP) 137/69 (91) 131/68 137/66 (89) Pulse Ox 95 94 96 O2 Delivery Ventilator Ventilator Ventilator 03/07/19 03/07/19 03/07/19 03/07/19 07:00 07:56 08:00 08:00 Temp 99.4 99.4 Pulse 76 84 Resp 14 21 B/P (MAP) 127/77 (94) 119/71 (87) Pulse Ox 96 93 91 O2 Delivery Ventilator Ventilator Mechanical Ventilator Ventilator 03/07/19 03/07/19 09:00 10:00 Pulse 84 88 Resp 14 18 B/P (MAP) 138/68 (91) 121/65 (83) Pulse Ox 97 97 O2 Delivery Ventilator Ventilator Intake and Output 03/06/19 03/06/19 03/07/19 14:59 22:59 06:59 Intake Total 615 ml 981.59 ml 1133 ml Output Total 510 ml 280 ml 270 ml Balance 105 ml 701.59 ml 863 ml MICHAEL BURRIS MD Mar 07, 2019 10:56
--- NOTE | 2019-03-07 13:07 | PDOC ---
PROGRESS NOTES Subjective Subjective Patient seen and examined He remains on a ventilator. Objective Objective Vital Signs Date Time Temp Pulse Resp B/P (MAP) Pulse Ox O2 Delivery O2 Flow Rate FiO2 03/07/19 12:16 96 107/62 03/07/19 12:00 100.0 22 95 Ventilator 100.0 03/07/19 11:55 4.0 Intake and Output 03/07/19 07:00 Intake Total 2729.59 ml Output Total 985 ml Balance 1744.59 ml IV Total 629.59 ml Tube Feeding 1932 ml Other 168 ml Output Urine Total 865 ml Gastric Drainage Total 120 ml # Bowel Movements 2 Physical Exam Abdomen: Normal bowel sounds Heart: Regular rate General: Other (intubated.) Lungs: Other (decreased breath sounds) Assessment Assessment Problems Medical Problems: (1) Acute renal failure Status: Acute (2) Edema Status: Acute (3) Shortness of breath Status: Acute 1. Acute respiratory failure secondary to CHF, morbid obesity/likely STEVE, possible pneumonia and ARDS. The patient continues on a ventilator and is followed by pulmonary. 2. Sepsis:per ID. 3. Acute on chronic renal insufficiency/anasarca: Nephrology following 4. Diabetes mellitus type 2: Treat 5. AFIB RVR: Patient started on IV Cardizem last night. He converted back to a sinus rhythm. Ejection fraction normal on echo. We will continue present treatment at this time. 6. HTN: labile Comment Review of Relevant I have reviewed the following items pascual (where applicable) has been applied. Labs Laboratory Tests Test 03/05/19 21:22 03/06/19 04:45 03/06/19 07:51 03/06/19 08:00 Glucose (Fingerstick) 162 mg/dL (70-99) 208 mg/dL (70-99) White Blood Count 8.5 x10^3/uL (4.0-11.0) Red Blood Count 4.12 x10^6/uL (4.30-5.70) Hemoglobin 12.5 g/dL (13.0-17.5) Hematocrit 39.2 % (39.0-53.0) Mean Corpuscular Volume 95 fL (79-100) Mean Corpuscular Hemoglobin 30 pg (25-35) Mean Corpuscular Hemoglobin Concent 32 g/dL (31-37) Red Cell Distribution Width 14.3 % (11.5-14.5) Platelet Count 178 x10^3/uL (140-400) Neutrophils (%) (Auto) 84 % (31-73) Lymphocytes (%) (Auto) 5 % (24-48) Monocytes (%) (Auto) 8 % (0-9) Eosinophils (%) (Auto) 3 % (0-3) Basophils (%) (Auto) 0 % (0-3) Neutrophils # (Auto) 7.1 x10^3uL (1.8-7.7) Lymphocytes # (Auto) 0.4 x10^3/uL (1.0-4.8) Monocytes # (Auto) 0.7 x10^3/uL (0.0-1.1) Eosinophils # (Auto) 0.2 x10^3/uL (0.0-0.7) Basophils # (Auto) 0.0 x10^3/uL (0.0-0.2) Segmented Neutrophils % 89 % (35-66) Lymphocytes % 3 % (24-48) Monocytes % 7 % (0-10) Eosinophils % 1 % (0-5) Platelet Estimate Adequate (ADEQUATE) Sodium Level 144 mmol/L (136-145) Potassium Level 5.1 mmol/L (3.5-5.1) Chloride Level 105 mmol/L (98-107) Carbon Dioxide Level 33 mmol/L (21-32) Anion Gap 6 (6-14) Blood Urea Nitrogen 36 mg/dL (8-26) Creatinine 2.0 mg/dL (0.7-1.3) Estimated GFR (Cockcroft-Gault) 34.7 Glucose Level 215 mg/dL (70-99) Calcium Level 8.3 mg/dL (8.5-10.1) Magnesium Level 2.1 mg/dL (1.8-2.4) O2 Saturation 94 % (92-99) Arterial Blood pH 7.35 (7.35-7.45) Arterial Blood pCO2 at Patient Temp 62 mmHg (35-46) Arterial Blood pO2 at Patient Temp 73 mmHg (75-108) Arterial Blood HCO3 33 mmol/L (21-28) Arterial Blood Base Excess 5 mmol/L (-3-3) FiO2 80 Test 03/06/19 08:50 03/06/19 20:41 03/07/19 05:15 03/07/19 08:00 Urine Eosinophils Eos not observed Glucose (Fingerstick) 185 mg/dL (70-99) White Blood Count 8.6 x10^3/uL (4.0-11.0) Red Blood Count 4.22 x10^6/uL (4.30-5.70) Hemoglobin 13.0 g/dL (13.0-17.5) Hematocrit 40.4 % (39.0-53.0) Mean Corpuscular Volume 96 fL (79-100) Mean Corpuscular Hemoglobin 31 pg (25-35) Mean Corpuscular Hemoglobin Concent 32 g/dL (31-37) Red Cell Distribution Width 14.4 % (11.5-14.5) Platelet Count 200 x10^3/uL (140-400) Neutrophils (%) (Auto) 78 % (31-73) Lymphocytes (%) (Auto) 9 % (24-48) Monocytes (%) (Auto) 10 % (0-9) Eosinophils (%) (Auto) 3 % (0-3) Basophils (%) (Auto) 0 % (0-3) Neutrophils # (Auto) 6.7 x10^3uL (1.8-7.7) Lymphocytes # (Auto) 0.7 x10^3/uL (1.0-4.8) Monocytes # (Auto) 0.8 x10^3/uL (0.0-1.1) Eosinophils # (Auto) 0.3 x10^3/uL (0.0-0.7) Basophils # (Auto) 0.0 x10^3/uL (0.0-0.2) Sodium Level 143 mmol/L (136-145) Potassium Level 4.7 mmol/L (3.5-5.1) Chloride Level 105 mmol/L (98-107) Carbon Dioxide Level 33 mmol/L (21-32) Anion Gap 5 (6-14) Blood Urea Nitrogen 51 mg/dL (8-26) Creatinine 2.1 mg/dL (0.7-1.3) Estimated GFR (Cockcroft-Gault) 32.8 BUN/Creatinine Ratio 24 (6-20) Glucose Level 202 mg/dL (70-99) Calcium Level 8.2 mg/dL (8.5-10.1) Total Bilirubin 0.4 mg/dL (0.2-1.0) Aspartate Amino Transf (AST/SGOT) 36 U/L (15-37) Alanine Aminotransferase (ALT/SGPT) 30 U/L (16-63) Alkaline Phosphatase 74 U/L (46-116) Total Protein 6.6 g/dL (6.4-8.2) Albumin 2.0 g/dL (3.4-5.0) Albumin/Globulin Ratio 0.4 (1.0-1.7) O2 Saturation 95 % (92-99) Arterial Blood pH 7.31 (7.35-7.45) Arterial Blood pCO2 at Patient Temp 68 mmHg (35-46) Arterial Blood pO2 at Patient Temp 81 mmHg (75-108) Arterial Blood HCO3 33 mmol/L (21-28) Arterial Blood Base Excess 5 mmol/L (-3-3) FiO2 80 Laboratory Tests Test 03/06/19 20:41 03/07/19 05:15 03/07/19 08:00 Glucose (Fingerstick) 185 mg/dL (70-99) White Blood Count 8.6 x10^3/uL (4.0-11.0) Red Blood Count 4.22 x10^6/uL (4.30-5.70) Hemoglobin 13.0 g/dL (13.0-17.5) Hematocrit 40.4 % (39.0-53.0) Mean Corpuscular Volume 96 fL (79-100) Mean Corpuscular Hemoglobin 31 pg (25-35) Mean Corpuscular Hemoglobin Concent 32 g/dL (31-37) Red Cell Distribution Width 14.4 % (11.5-14.5) Platelet Count 200 x10^3/uL (140-400) Neutrophils (%) (Auto) 78 % (31-73) Lymphocytes (%) (Auto) 9 % (24-48) Monocytes (%) (Auto) 10 % (0-9) Eosinophils (%) (Auto) 3 % (0-3) Basophils (%) (Auto) 0 % (0-3) Neutrophils # (Auto) 6.7 x10^3uL (1.8-7.7) Lymphocytes # (Auto) 0.7 x10^3/uL (1.0-4.8) Monocytes # (Auto) 0.8 x10^3/uL (0.0-1.1) Eosinophils # (Auto) 0.3 x10^3/uL (0.0-0.7) Basophils # (Auto) 0.0 x10^3/uL (0.0-0.2) Sodium Level 143 mmol/L (136-145) Potassium Level 4.7 mmol/L (3.5-5.1) Chloride Level 105 mmol/L (98-107) Carbon Dioxide Level 33 mmol/L (21-32) Anion Gap 5 (6-14) Blood Urea Nitrogen 51 mg/dL (8-26) Creatinine 2.1 mg/dL (0.7-1.3) Estimated GFR (Cockcroft-Gault) 32.8 BUN/Creatinine Ratio 24 (6-20) Glucose Level 202 mg/dL (70-99) Calcium Level 8.2 mg/dL (8.5-10.1) Total Bilirubin 0.4 mg/dL (0.2-1.0) Aspartate Amino Transf (AST/SGOT) 36 U/L (15-37) Alanine Aminotransferase (ALT/SGPT) 30 U/L (16-63) Alkaline Phosphatase 74 U/L (46-116) Total Protein 6.6 g/dL (6.4-8.2) Albumin 2.0 g/dL (3.4-5.0) Albumin/Globulin Ratio 0.4 (1.0-1.7) O2 Saturation 95 % (92-99) Arterial Blood pH 7.31 (7.35-7.45) Arterial Blood pCO2 at Patient Temp 68 mmHg (35-46) Arterial Blood pO2 at Patient Temp 81 mmHg (75-108) Arterial Blood HCO3 33 mmol/L (21-28) Arterial Blood Base Excess 5 mmol/L (-3-3) FiO2 80 Microbiology 03/05/19 Blood Culture - Preliminary, Resulted NO GROWTH AFTER 2 DAYS 03/05/19 - Final, Resulted 03/05/19 - Final, Resulted 03/05/19 - Final, Resulted 03/05/19 Gram Stain Evaluation - Final, Resulted 03/05/19 Sputum Culture - Preliminary, Resulted 03/05/19 Sputum Result 1 - Final, Resulted 03/02/19 Urine Culture - Final, Complete 03/02/19 Urine Culture Result 1 (LUCIO) - Final, Complete Medications Current Medications Ondansetron HCl (Zofran) 4 mg PRN Q8HRS PRN IV NAUSEA/VOMITING; Start 02/27/19 at 16:45; Stop 02/28/19 at 16:44; Status DC Morphine Sulfate (Morphine Sulfate) 2 mg PRN Q2HR PRN IV PAIN; Start 02/27/19 at 16:45; Stop 02/28/19 at 16:44; Status DC Acetaminophen (Tylenol) 650 mg PRN Q4HRS PRN PO FEVER Last administered on 02/27at 21:06; Start 02/27/19 at 16:45; Stop 02/28/19 at 16:44; Status DC Dextrose (Dextrose 50%-Water Syringe) 12.5 gm PRN Q15MIN PRN IV SEE COMMENTS; Start 02/27/19 at 16:45 Heparin Sodium (Porcine) (Heparin Sodium) 5,000 unit Q8HRS SQ Last administered on 03/07/19at 05:32; Start 02/27/19 at 17:00 Lorazepam (Ativan) 1 mg PRN Q8HRS PRN IV ANXIETY / AGITATION Last administered on 03/05/19at 22:50; Start 02/28/19 at 02:45 Etomidate (Amidate) 20 mg STK-MED ONCE IV ; Start 02/28/19 at 06:59; Stop at 07:00; Status DC Rocuronium Lopez (Zemuron) 50 mg STK-MED ONCE .ROUTE ; Start 02/28/19 at 07:00 ; Stop 02/28/19 at 09:42; Status DC Dopamine HCl/ Dextrose 250 ml @ 12.266 mls/ hr CONT PRN IV SEE I/O RECORD Last administered on 02/28/19at 08:06; Start 02/28/19 at 07:15 Fentanyl Citrate 30 ml @ 0 mls/hr CONT PRN IV SEE PROTOCOL; Start 02/28/19 at 07:15; Stop 02/28/19 at 07:59; Status DC Propofol 100 ml @ 0 mls/hr CONT PRN IV SEE PROTOCOL; Start 02/28/19 at 07:15; Stop 02/28/19 at 07:59; Status DC Fentanyl Citrate (Fentanyl 2ml Vial) 25 mcg PRN Q1HR PRN IV SEE COMMENTS; Start 02/28/19 at 07:15; Stop 02/28/19 at 07:59; Status DC Fentanyl Citrate (Fentanyl 2ml Vial) 50 mcg PRN Q1HR PRN IV SEE COMMENTS; Start 02/28/19 at 07:15; Stop 02/28/19 at 07:59; Status DC Midazolam HCl 100 ml @ 0 mls/hr CONT PRN IV SEE PROTOCOL Last administered on at 04:11; Start 02/28/19 at 07:15 Sodium Chloride 1,000 ml @ 1,000 mls/hr Q1H IV Last administered on 02/28/19at 07:32; Start 02/28/19 at 07:32; Stop 02/28/19 at 10:09; Status DC Fentanyl Citrate (Fentanyl 2ml Vial) 25 mcg PRN Q30MIN PRN IV see comments; Start 02/28/19 at 07:45; Stop 02/28/19 at 09:42; Status DC Lorazepam (Ativan) 1 mg PRN Q30MIN PRN IV SEDATION; Start 02/28/19 at 07:45; Stop 02/28/19 at 09:42; Status DC Fentanyl Citrate 30 ml @ 2.5 mls/hr CONT PRN PRN IV SEE I/O RECORD Last administered on 03/05/19at 03:44; Start 02/28/19 at 07:45; Stop 03/05/19 at 04:40; Status DC Propofol 100 ml @ 0 mls/hr CONT PRN IV SEE I/O RECORD; Start 02/28/19 at 07:45 Vecuronium Lopez (Norcuron Bolus) 10 mg PRN Q30MIN PRN IV SHIVERING; Start at 07:45; Stop 02/28/19 at 09:42; Status DC Meperidine HCl (Demerol) 12.5 mg PRN Q30MIN PRN IV SHIVERING; Start 02/28/19 at 07:45; Stop 02/28/19 at 09:42; Status DC Multi-Ingred Cream/Lotion/Oil/ Oint (Artificial Tears Eye Ointment) 1 jennifer PRN Q6HRS PRN OU 0.5 INCH FOR DRY EYE; Start 02/28/19 at 07:45; Stop 02/28/19 at 09 :42; Status DC Famotidine (Pepcid Vial) 20 mg BID IVP Last administered on 02/28/19at 11:03; Start 02/28/19 at 09:00; Stop 02/28/19 at 14:25; Status DC Aspirin (Aspirin) 300 mg DAILY OK ; Start 02/28/19 at 09:00; Stop 02/28/19 at 09 :42; Status DC Sodium Chloride (Normal Saline Flush) 3 ml QSHIFT PRN IV AFTER MEDS AND BLOOD DRAWS; Start 02/28/19 at 07:45 Acetaminophen (Tylenol) 650 mg Q6HRS NG ; Start 02/28/19 at 12:00; Stop at 12:00; Status DC Acetaminophen (Tylenol Supp) 650 mg PRN Q6HRS PRN OK MILD PAIN / TEMP; Start at 07:45; Stop 03/01/19 at 07:45; Status DC Acetaminophen (Tylenol) 650 mg PRN Q6HRS PRN NG MILD PAIN / TEMP; Start at 07:45; Stop 03/01/19 at 07:45; Status DC Info (Icu Electrolyte Protocol) 1 ea DAILY PRN MC PER PROTOCOL; Start 03/02/19 at 07:45; Stop 03/02/19 at 07:45; Status DC Furosemide (Lasix) 60 mg 1X ONCE IVP Last administered on 02/28/19at 08:30; Start 02/28/19 at 08:30; Stop 02/28/19 at 08:31; Status DC Ceftriaxone Sodium (Rocephin) 1 gm Q24H IVP Last administered on 02/28/19at 11: 03; Start 02/28/19 at 11:00; Stop 02/28/19 at 11:18; Status DC Calcium Chloride 1000 mg/Dextrose 60 ml @ 120 mls/hr 1X ONCE IV Last administered on 02/28/19at 11:03; Start 02/28/19 at 10:30; Stop 02/28/19 at 10:59 ; Status DC Meropenem 500 mg/ Sodium Chloride 50 ml @ 100 mls/hr Q8HRS IV Last administered on 03/03/19at 06:24; Start 02/28/19 at 14:00; Stop 03/03/19 at 07:04; Status DC Linezolid/Dextrose 300 ml @ 300 mls/hr Q12HR IV Last administered on 03/03/19 20:00; Start 02/28/19 at 11:30; Stop 03/04/19 at 08:55; Status DC Micafungin Sodium 100 mg/Dextrose 100 ml @ 100 mls/hr Q24H IV Last administered on 03/04/19 15:53; Start 02/28/19 at 12:00; Stop 03/05/19 at 06:47; Status DC Furosemide (Lasix) 40 mg [id number] IVP Last administered on 03/02/19 14:06; Start 02/28/19 at 14:00; Stop 03/02/19 at 17:02; Status DC Famotidine (Pepcid Vial) 20 mg QHS IVP Last administered on 03/01/19 21:24; Start 02/28/19 at 21:00; Stop 03/02/19 at 10:07; Status DC Albuterol/ Ipratropium (Duoneb) 3 ml RTQID NEB Last administered on 03/07/19 12 :25; Start 02/28/19 at 16:00 Haloperidol Lactate (Haldol Inj) 5 mg PRN Q6HRS PRN IVP AGITATION 2ND CHOICE Last administered on 03/04/19 02:11; Start 02/28/19 at 15:15 Vecuronium Lopez (Norcuron Bolus) 8 mg PRN Q4HRS PRN IV MUSCLE SPASMS Last administered on 03/04/19at 04:47; Start 02/28/19 at 15:15 Perflutren Protein Type A Microsphe (Optison) 0.66 mg PRN 1X PRN IV SEE COMMENTS; Start 03/01/19 at 10:00; Stop 03/02/19 at 09:59; Status DC Digoxin (Lanoxin) 125 mcg 1X STAT IV ; Start 03/01/19 at 15:34; Stop 03/01/19 at 16:00; Status DC Sodium Chloride 500 ml @ 500 mls/hr 1X ONCE IV Last administered on at 18:46; Start 03/01/19 at 18:45; Stop 03/01/19 at 19:44; Status DC Famotidine (Pepcid Vial) 20 mg Q12HR IVP Last administered on 03/07/19 08:09; Start 03/02/19 at 21:00 Furosemide (Lasix) 40 mg DAILY IVP Last administered on 03/04/19 09:52; Start 03/03/19 at 09:00; Stop 03/04/19 at 12:13; Status DC Acetaminophen (Tylenol Supp) 650 mg PRN Q6HRS PRN OK MILD PAIN / TEMP Last administered on 03/03/19 17:39; Start 03/02/19 at 17:15 Meropenem 500 mg/ Sodium Chloride 50 ml @ 100 mls/hr Q6HRS IV Last administered on 03/05/19 05:33; Start 03/03/19 at 12:00; Stop 03/05/19 at 06:47; Status DC Albumin Human 100 ml @ 100 mls/hr 1X ONCE IV Last administered on 03/03/19 08 :52; Start 03/03/19 at 08:30; Stop 03/03/19 at 09:29; Status DC Atropine Sulfate (ATROPINE 0.5mg SYRINGE) 2 mg STK-MED ONCE .ROUTE ; Start 02/27 at 16:21; Stop 03/03/19 at 16:22; Status DC Dopamine HCl/ Dextrose (DOPamine 400MG/ 250ML PREMIX) 400 mg STK-MED ONCE IV ; Start 02/27/19 at 16:21; Stop 03/03/19 at 16:22; Status DC Furosemide (Lasix) 40 mg 1X ONCE IVP Last administered on 03/03/19 18:46; Start 03/03/19 at 18:45; Stop 03/03/19 at 18:46; Status DC Lorazepam 100 mg/ Sodium Chloride 100 ml @ 0 mls/hr CONT PRN IV SEE PROTOCOL Last administered on 03/03/19 22:18; Start 03/03/19 at 22:00 Acetaminophen (Tylenol) 650 mg PRN Q6HRS PRN PEG MILD PAIN / TEMP Last administered on 03/05/19 09:32; Start 03/04/19 at 11:45 Furosemide (Lasix) 40 mg BID92 IVP Last administered on 03/06/19 08:38; Start 03/04/19 at 14:00; Stop 03/06/19 at 13:30; Status DC Fentanyl Citrate 30 ml @ 0 mls/hr CONT PRN IV SEE PROTOCOL Last administered on 03/07/19 11:25; Start 03/05/19 at 04:45 Cefepime HCl (Maxipime) 2 gm Q8HRS IVP Last administered on 03/07/19 05:30; Start 03/05/19 at 06:45 Metronidazole 100 ml @ 100 mls/hr Q8HRS IV Last administered on 03/07/19 05:31 ; Start 03/05/19 at 06:45 Linezolid/Dextrose 300 ml @ 300 mls/hr Q12HR IV Last administered on 03/05/19 21:24; Start 03/05/19 at 09:00; Stop 03/06/19 at 06:42; Status DC Metoclopramide HCl (Reglan Vial) 10 mg QIDACHS IV Last administered on 20:43; Start 03/05/19 at 11:30; Stop 03/07/19 at 07:37; Status DC Insulin Glargine (Lantus) 12 units BID SQ Last administered on 03/07/19 08:11; Start 03/05/19 at 09:00 Digoxin (Lanoxin) 500 mcg 1X ONCE IV Last administered on 03/06/19 00:48; Start 03/06/19 at 00:45; Stop 03/06/19 at 00:46; Status DC Metoprolol Tartrate (Lopressor Vial) 5 mg 1X ONCE IVP Last administered on 03/06 00:53; Start 03/06/19 at 00:45; Stop 03/06/19 at 00:46; Status DC Sodium Chloride 500 ml @ 500 mls/hr 1X ONCE IV Last administered on 03/06/19 00:49; Start 03/06/19 at 00:45; Stop 03/06/19 at 01:44; Status DC Nystatin (Mycostatin) 1 jennifer BID TP Last administered on 03/07/19 08:09; Start 03/06/19 at 09:00 Sodium Cl/Sod Bicarb/Potass Cl/ PEG (Golytely) 2,000 ml 1X ONCE PO Last administered on 03/06/19 09:33; Start 03/06/19 at 08:00; Stop 03/06/19 at 08:01; Status DC Furosemide (Lasix) 40 mg DAILY08 IVP Last administered on 03/07/19 08:08; Start 03/07/19 at 08:00 Metoprolol Tartrate (Lopressor Vial) 10 mg 1X ONCE IVP Last administered on 03/06/19at 16:08; Start 03/06/19 at 15:15; Stop 03/06/19 at 15:16; Status DC Metoprolol Tartrate (Lopressor Vial) 5 mg Q6HRS IVP Last administered on at 12:16; Start 03/06/19 at 18:00 Aspirin (Children'S Aspirin) 81 mg 1X ONCE PO Last administered on 03/06/19 18 :18; Start 03/06/19 at 17:00; Stop 03/06/19 at 17:01; Status DC Aspirin (Children'S Aspirin) 81 mg DAILYWBKFT PO Last administered on 03/07/19 08:09; Start 03/07/19 at 08:00 Labetalol HCl (Normodyne Iv Push) 20 mg PRN Q2HR PRN IVP HYPERTENSION, SEE COMMENTS Last administered on 03/06/19at 21:29; Start 03/06/19 at 17:15 Digoxin (Lanoxin) 250 mcg 1X ONCE IV Last administered on 03/06/19at 22:00; Start 03/06/19 at 22:00; Stop 03/06/19 at 22:01; Status DC Diltiazem HCl 125 mg/Dextrose 125 ml @ 5 mls/hr CONT PRN IV SEE I/O RECORD Last administered on 03/07/19at 00:19; Start 03/06/19 at 23:00 Metoclopramide HCl (Reglan Vial) 10 mg Q6HRS IV ; Start 03/07/19 at 08:00 Active Scripts Active Reported Proair Hfa Inhaler (Albuterol Sulfate) 8.5 Gm Hfa.aer.ad 1 Puff INH PRN Q6HRS PRN Lantus Solostar (Insulin Glargine,Hum.rec.anlog) 100 Unit/1 Ml Insuln.pen 20 Unit SQ QHS Humalog (Insulin Lispro) 100 Unit/1 Ml Cartridge 6 Unit SQ TIDWMEALS Doxazosin Mesylate 2 Mg Tablet 2 Mg PO DAILY Omeprazole 40 Mg Capsule.dr 40 Mg PO DAILY Amlodipine Besylate 10 Mg Tablet 10 Mg PO DAILY Atorvastatin Calcium 20 Mg Tablet 20 Mg PO DAILY Atenolol 50 Mg Tablet 50 Mg PO DAILY Losartan Potassium 100 Mg Tablet 100 Mg PO DAILY Aspirin 81 Mg Tab.chew 81 Mg PO DAILY Glyburide 5 Mg Tablet 1 Tab PO BID Vitals/I & O Vital Sign - Last 24 Hours 03/06/19 03/06/19 03/06/19 03/06/19 13:56 14:00 15:00 15:03 Pulse 95 98 Resp 14 18 17 B/P (MAP) 156/82 (106) 164/74 (104) Pulse Ox 91 94 92 O2 Delivery Ventilator Ventilator Ventilator Ventilator 03/06/19 03/06/19 03/06/19 03/06/19 15:33 16:00 16:00 16:02 Pulse 69 Resp 17 17 B/P (MAP) 105/65 (78) Pulse Ox 90 90 O2 Delivery Ventilator Ventilator Mechanical Ventilator Ventilator 03/06/19 03/06/19 03/06/19 03/06/19 16:08 17:00 17:38 18:00 Pulse 151 109 100 Resp 18 16 B/P (MAP) 110/70 162/69 (100) 158/79 (105) Pulse Ox 92 93 95 O2 Delivery Ventilator Ventilator Ventilator 03/06/19 03/06/19 03/06/19 03/06/19 18:19 19:00 19:35 19:58 Pulse 101 81 Resp 14 B/P (MAP) 158/79 138/74 (95) Pulse Ox 95 95 O2 Delivery Ventilator Mechanical Ventilator O2 Flow Rate 4.0 03/06/19 03/06/19 03/06/19 03/06/19 20:00 20:18 21:00 21:29 Temp 99.7 99.7 Pulse 77 92 174 Resp 13 13 B/P (MAP) 104/62 (76) 144/71 (95) 144/71 Pulse Ox 95 95 95 O2 Delivery Ventilator Ventilator Ventilator 03/06/19 03/06/19 03/06/19 03/06/19 22:00 22:00 23:00 23:03 Pulse 157 153 127 140 Resp 15 14 B/P (MAP) 105/69 92/58 (69) 103/54 (70) 103/54 Pulse Ox 93 95 O2 Delivery Ventilator Ventilator 03/06/19 03/06/19 03/07/19 03/07/19 23:35 23:38 00:00 01:00 Temp 99.4 99.4 Pulse 133 82 Resp 14 14 B/P (MAP) 97/58 (71) 112/63 (79) Pulse Ox 94 94 96 O2 Delivery Mechanical Ventilator Ventilator Ventilator Ventilator 03/07/19 03/07/19 03/07/19 03/07/19 01:04 02:00 02:43 03:00 Pulse 79 74 Resp 13 14 B/P (MAP) 104/60 (75) 101/52 (68) Pulse Ox 96 96 93 93 O2 Delivery Ventilator Ventilator Ventilator O2 Flow Rate 4.0 03/07/19 03/07/19 03/07/19 03/07/19 03:45 04:00 05:00 05:30 Temp 98.7 98.7 Pulse 75 79 75 Resp 13 17 B/P (MAP) 128/66 (86) 137/69 (91) 131/68 Pulse Ox 92 95 O2 Delivery Mechanical Ventilator Ventilator Ventilator 03/07/19 03/07/19 03/07/19 03/07/19 05:45 06:00 07:00 07:56 Pulse 75 76 Resp 14 14 B/P (MAP) 137/66 (89) 127/77 (94) Pulse Ox 94 96 96 93 O2 Delivery Ventilator Ventilator Ventilator Ventilator 03/07/19 03/07/19 03/07/19 03/07/19 08:00 08:00 09:00 10:00 Temp 99.4 99.4 Pulse 84 84 88 Resp 21 14 18 B/P (MAP) 119/71 (87) 138/68 (91) 121/65 (83) Pulse Ox 91 97 97 O2 Delivery Mechanical Ventilator Ventilator Ventilator Ventilator 03/07/19 03/07/19 03/07/19 03/07/19 11:00 11:25 11:40 11:55 Pulse 92 Resp 22 B/P (MAP) 107/62 (77) Pulse Ox 95 97 93 97 O2 Delivery Ventilator Ventilator O2 Flow Rate 4.0 4.0 03/07/19 03/07/19 03/07/19 12:00 12:00 12:16 Temp 100.0 100.0 Pulse 90 96 Resp 22 B/P (MAP) 113/54 (73) 107/62 Pulse Ox 95 O2 Delivery Mechanical Ventilator Ventilator Intake and Output 4/04/1903/06/19 03/07/19 15:00 23:00 07:00 Intake Total 615 ml 981.59 ml 1133 ml Output Total 460 ml 285 ml 240 ml Balance 155 ml 696.59 ml 893 ml HAILE PEREZ MD Mar 07, 2019 13:07
[2019-03-07 13:24] LABS: BASE EXCESS ABG 6 mmol/L (-3-3); HCO3 ABG 32 mmol/L (21-28); PCO2 ABG 48 mmHg (35-46); PO2 ABG 59 mmHg (75-108); SAT O2 ABG 91 % (92-99)
[2019-03-07 13:43] LABS: FIO2 ABG 75%
--- NOTE | 2019-03-07 16:16 | PDOC ---
SUBJECTIVE ROS Intubated OBJECTIVE Vital Signs Vital Signs Date Time Temp Pulse Resp B/P (MAP) Pulse Ox O2 Delivery O2 Flow Rate FiO2 03/07/19 14:00 101 22 110/58 (75) 93 Ventilator 03/07/19 12:00 100.0 100.0 03/07/19 11:55 4.0 I & 0 Intake and Output 03/07/19 07:00 Intake Total 2729.59 ml Output Total 985 ml Balance 1744.59 ml IV Total 629.59 ml Tube Feeding 1932 ml Other 168 ml Output Urine Total 865 ml Gastric Drainage Total 120 ml # Bowel Movements 2 PHYSICAL EXAM Physical Exam GENERAL: Sedated and intubated. HEENT: ETT. OGT NECK: Supple. LUNGS: CTA ant HEART: S1, S2. ABDOMEN: Distended with decreased bowel sounds GENITOURINARY: Coburn +, 2+ scrotal swelling EXTREMITIES: 2 + edema. Generalized anasarca. RLE stump with chronic wound. 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 Infection vs ileus vs drug reaction Flank rash - no Eosinophilia Acute respiratory failure, intubated, increased infiltrates today - ARDS Scrotal edema/cellulitis- Improved urology consulted Status post code. Discussed with Dr. Vinson and RN at bedside DIAGNOSIS/ASSESSMENT Assessment & Plan LEONARD- Cr improved down to 1.5 Back up again to 2.1 Tachy Decreased Lasix to QD , stable UOP Monitor Anasarca- Improved Hypernatremia - Resolved Right Renal mass Fever - ? Infection vs ileus vs drug reaction Flank rash - no Eosinophilia Acute respiratory failure, intubated, increased infiltrates today - ARDS Scrotal edema/cellulitis- Improved urology consulted Status post code. Discussed with Dr. Vinson and RN at bedside COMMENT/RELEVANT DATA Meds Current Medications Medications (Trade) Dose Ordered Sig/Lula Start Time Stop Time Status Last Admin Dose Admin Acetaminophen (Tylenol Supp) 650 mg PRN Q6HRS PRN 03/02/19 17:15 03/03/19 17:39 650 MG Acetaminophen (Tylenol) 650 mg PRN Q6HRS PRN 03/04/19 11:45 03/05/19 09:32 650 MG Albumin Human 100 ml @ 100 mls/hr 1X ONCE 03/03/19 08:30 03/03/19 09:29 DC 03/03/19 08:52 100 MLS/HR Albuterol/ Ipratropium (Duoneb) 3 ml RTQID 02/28/19 16:00 03/07/19 12:25 3 ML Aspirin (Aspirin) 300 mg DAILY 02/28/19 09:00 02/28/19 09:42 DC Aspirin (Children'S Aspirin) 81 mg [id number] 03/07/19 08:00 03/07/19 08:09 81 MG Atropine Sulfate (ATROPINE 0.5mg SYRINGE) 2 mg STK-MED ONCE 02/27/19 16:21 03/03/19 16:22 DC Calcium Chloride 1000 mg/Dextrose 60 ml @ 120 mls/hr 1X ONCE 02/28/19 10:30 02/28/19 10:59 DC 02/28/19 11:03 120 MLS/HR Cefepime HCl (Maxipime) 2 gm Q8HRS 03/05/19 06:45 03/07/19 13:27 2 GM Ceftriaxone Sodium (Rocephin) 1 gm Q24H 02/28/19 11:00 02/28/19 11:18 DC 02/28/19 11:03 1 GM Dextrose (Dextrose 50%-Water Syringe) 12.5 gm PRN Q15MIN PRN 02/27/19 16:45 Digoxin (Lanoxin) 250 mcg 1X ONCE 03/06/19 22:00 03/06/19 22:01 DC 03/06/19 22:00 250 MCG Diltiazem HCl 125 mg/Dextrose 125 ml @ 5 mls/hr CONT PRN 03/06/19 23:00 03/07/19 13:34 5 MLS/HR Dopamine HCl/ Dextrose (DOPamine 400MG/ 250ML PREMIX) 400 mg STK-MED ONCE 02/27/19 16:21 03/03/19 16:22 DC Etomidate (Amidate) 20 mg STK-MED ONCE 02/28/19 06:59 02/28/19 07:00 DC Famotidine (Pepcid Vial) 20 mg Q12HR 03/02/19 21:00 03/07/19 08:09 20 MG Fentanyl Citrate 30 ml @ 0 mls/hr CONT PRN 03/05/19 04:45 03/07/19 11:25 0 MLS/HR Fentanyl Citrate (Fentanyl 2ml Vial) 25 mcg PRN Q30MIN PRN 02/28/19 07:45 02/28/19 09:42 DC Furosemide (Lasix) 40 mg DAILY08 03/07/19 08:00 03/07/19 08:08 40 MG Haloperidol Lactate (Haldol Inj) 5 mg PRN Q6HRS PRN 02/28/19 15:15 03/04/19 02:11 5 MG Heparin Sodium (Porcine) (Heparin Sodium) 5,000 unit Q8HRS 02/27/19 17:00 03/07/19 13:30 5,000 UNIT Info (Icu Electrolyte Protocol) 1 ea DAILY PRN 03/02/19 07:45 03/02/19 07:45 DC Insulin Glargine (Lantus) 12 units BID 03/05/19 09:00 03/07/19 08:11 12 UNITS Labetalol HCl (Normodyne Iv Push) 20 mg PRN Q2HR PRN 03/06/19 17:15 03/06/19 21:29 20 MG Linezolid/Dextrose 300 ml @ 300 mls/hr Q12HR 03/05/19 09:00 03/06/19 06:42 DC 03/05/19 21:24 300 MLS/HR Lorazepam (Ativan) 1 mg PRN Q30MIN PRN 02/28/19 07:45 02/28/19 09:42 DC Lorazepam 100 mg/ Sodium Chloride 100 ml @ 0 mls/hr CONT PRN 03/03/19 22:00 03/03/19 22:18 1 MLS/HR Meperidine HCl (Demerol) 12.5 mg PRN Q30MIN PRN 02/28/19 07:45 02/28/19 09:42 DC Meropenem 500 mg/ Sodium Chloride 50 ml @ 100 mls/hr Q6HRS 03/03/19 12:00 03/05/19 06:47 DC 03/05/19 05:33 100 MLS/HR Metoclopramide HCl (Reglan Vial) 10 mg Q6HRS 03/07/19 08:00 Metoprolol Tartrate (Lopressor Vial) 5 mg Q6HRS 03/06/19 18:00 03/07/19 12:16 5 MG Metronidazole 100 ml @ 100 mls/hr Q8HRS 03/05/19 06:45 03/07/19 13:27 100 MLS/HR Micafungin Sodium 100 mg/Dextrose 100 ml @ 100 mls/hr Q24H 02/28/19 12:00 03/05/19 06:47 DC 03/04/19 15:53 100 MLS/HR Midazolam HCl 100 ml @ 0 mls/hr CONT PRN 02/28/19 07:15 03/07/19 13:20 10 MLS/HR Morphine Sulfate (Morphine Sulfate) 2 mg PRN Q2HR PRN 02/27/19 16:45 02/28/19 16:44 DC Multi-Ingred Cream/Lotion/Oil/ Oint (Artificial Tears Eye Ointment) 1 jennifer PRN Q6HRS PRN 02/28/19 07:45 02/28/19 09:42 DC Nystatin (Mycostatin) 1 jennifer BID 03/06/19 09:00 03/07/19 08:09 1 JENNIFER Ondansetron HCl (Zofran) 4 mg PRN Q8HRS PRN 02/27/19 16:45 02/28/19 16:44 DC Perflutren Protein Type A Microsphe (Optison) 0.66 mg PRN 1X PRN 03/01/19 10:00 03/02/19 09:59 DC Propofol 100 ml @ 0 mls/hr CONT PRN 02/28/19 07:45 Rocuronium [place] (Zemuron) 50 mg STK-MED ONCE 02/28/19 07:00 02/28/19 09:42 DC Sodium Chloride 500 ml @ 500 mls/hr 1X ONCE 03/06/19 00:45 03/06/19 01:44 DC 03/06/19 00:49 500 MLS/HR Sodium Chloride (Normal Saline Flush) 3 ml QSHIFT PRN 02/28/19 07:45 Sodium Cl/Sod Bicarb/Potass Cl/ PEG (Golytely) 2,000 ml 1X ONCE 03/06/19 08:00 03/06/19 08:01 DC 03/06/19 09:33 2,000 ML Vecuronium [place] (Norcuron Bolus) 8 mg PRN Q4HRS PRN 02/28/19 15:15 03/04/19 04:47 8 MG Lab Laboratory Tests Test 03/06/19 20:41 03/07/19 05:15 03/07/19 08:00 03/07/19 13:20 Glucose (Fingerstick) 185 mg/dL (70-99) White Blood Count 8.6 x10^3/uL (4.0-11.0) Red Blood Count 4.22 x10^6/uL (4.30-5.70) Hemoglobin 13.0 g/dL (13.0-17.5) Hematocrit 40.4 % (39.0-53.0) Mean Corpuscular Volume 96 fL (79-100) Mean Corpuscular Hemoglobin 31 pg (25-35) Mean Corpuscular Hemoglobin Concent 32 g/dL (31-37) Red Cell Distribution Width 14.4 % (11.5-14.5) Platelet Count 200 x10^3/uL (140-400) Neutrophils (%) (Auto) 78 % (31-73) Lymphocytes (%) (Auto) 9 % (24-48) Monocytes (%) (Auto) 10 % (0-9) Eosinophils (%) (Auto) 3 % (0-3) Basophils (%) (Auto) 0 % (0-3) Neutrophils # (Auto) 6.7 x10^3uL (1.8-7.7) Lymphocytes # (Auto) 0.7 x10^3/uL (1.0-4.8) Monocytes # (Auto) 0.8 x10^3/uL (0.0-1.1) Eosinophils # (Auto) 0.3 x10^3/uL (0.0-0.7) Basophils # (Auto) 0.0 x10^3/uL (0.0-0.2) Sodium Level 143 mmol/L (136-145) Potassium Level 4.7 mmol/L (3.5-5.1) Chloride Level 105 mmol/L (98-107) Carbon Dioxide Level 33 mmol/L (21-32) Anion Gap 5 (6-14) Blood Urea Nitrogen 51 mg/dL (8-26) Creatinine 2.1 mg/dL (0.7-1.3) Estimated GFR (Cockcroft-Gault) 32.8 BUN/Creatinine Ratio 24 (6-20) Glucose Level 202 mg/dL (70-99) Calcium Level 8.2 mg/dL (8.5-10.1) Total Bilirubin 0.4 mg/dL (0.2-1.0) Aspartate Amino Transf (AST/SGOT) 36 U/L (15-37) Alanine Aminotransferase (ALT/SGPT) 30 U/L (16-63) Alkaline Phosphatase 74 U/L (46-116) Total Protein 6.6 g/dL (6.4-8.2) Albumin 2.0 g/dL (3.4-5.0) Albumin/Globulin Ratio 0.4 (1.0-1.7) O2 Saturation 95 % (92-99) 91 % (92-99) Arterial Blood pH 7.31 (7.35-7.45) 7.43 (7.35-7.45) Arterial Blood pCO2 at Patient Temp 68 mmHg (35-46) 48 mmHg (35-46) Arterial Blood pO2 at Patient Temp 81 mmHg (75-108) 59 mmHg (75-108) Arterial Blood HCO3 33 mmol/L (21-28) 32 mmol/L (21-28) Arterial Blood Base Excess 5 mmol/L (-3-3) 6 mmol/L (-3-3) FiO2 80 75% Results All relevant outside records, renal labs, imaging studies, telemetry/EKG's were reviewed. GALO AMBRIZ MD Mar 07, 2019 16:16
[2019-03-07] MEDS: HALOPERIDOL LACTATE 5 MG/ML VIAL. IVP PRN (17:47)
--- NOTE | 2019-03-07 20:16 | NUR ---
Patient triggered positive sepsis screen. ID already following patient, antibiotics on board, blood cultures drawn / were negative, and stat lactic acid was drawn. No issues with patients blood pressure so unless patient has elevated lactic there will be no need for fluid bolus at this time.
[2019-03-08] VITALS (23 sets, daily range): BP systolic 111–165; BP diastolic 60–81
[2019-03-08] MEDS: HALOPERIDOL LACTATE 5 MG/ML VIAL. IVP PRN (03:37)
[2019-03-08] MEDS: MIDAZOLAM 100mg/100ml NS BAG 100 ML IV PRN ×3 (05:04→21:11)
[2019-03-08 05:25] LABS: BASO # 0.1 x10^3/uL (0.0-0.2); BASO % 1 % (0-3); EOS # 0.3 x10^3/uL (0.0-0.7); EOS % 3 % (0-3); HEMOGLOBIN 12.4 g/dL (13.0-17.5); LYMPH # 0.5 x10^3/uL (1.0-4.8); LYMPH % 6 % (24-48); MEAN CORPUSCULAR HEMOGLOBIN 30 pg (25-35); MEAN CORPUSCULAR HGB CONC 32 g/dL (31-37); MEAN CORPUSCULAR VOLUME 95 fL (79-100); MONO # 0.8 x10^3/uL (0.0-1.1); MONO % 9 % (0-9); NEUT # 7.1 x10^3uL (1.8-7.7); NEUT % 81 % (31-73); PLATELET COUNT 215 x10^3/uL (140-400); RED BLOOD COUNT 4.13 x10^6/uL (4.30-5.70); RED CELL DISTRIBUTION WIDTH 14.6 % (11.5-14.5); WHITE BLOOD COUNT 8.7 x10^3/uL (4.0-11.0)
[2019-03-08 05:34] LABS: CALCIUM 8.2 mg/dL (8.5-10.1); CREATININE 2.1 mg/dL (0.7-1.3); GFR 32.8; POTASSIUM 4.9 mmol/L (3.5-5.1)
[2019-03-08] MEDS: CEFEPIME HCL IV Push 2 GM VIAL. IVP SCH ×3 (05:44→21:11)
[2019-03-08] MEDS: HEPARIN for SUB-Q USE 5,000 UNIT/ML VIAL. SQ SCH ×3 (05:45→21:17)
[2019-03-08] MEDS: METOCLOPRAMIDE HCL 10 MG/2 ML VIAL. IV SCH (05:45)
[2019-03-08] MEDS: IPRATRPIUM/ALBUTEROL 0.5/2.5MG 3 ML NEBU. NEB SCH ×4 (07:58→20:09)
--- NOTE | 2019-03-08 08:07 | RAD ---
AP view of the chest. Comparison: Chest radiograph dated 03/07/2019. Indication: soa Findings: Unchanged endotracheal tube, enteric tube, and right IJ central venous catheter. Unchanged lung volume. Slight increase in bilateral perihilar and basilar predominant heterogenous airspace opacities and consolidation. Unchanged pulmonary vascular indistinctness. Likely small bilateral pleural effusions. Unchanged cardiomegaly, although heart borders are less clearly defined on today's exam due to the lung opacities. The great vessels of the thorax are unchanged. IMPRESSION: 1. Slight increase in bilateral perihilar and basilar predominant heterogenous airspace opacities and consolidation. 2. Likely small bilateral pleural effusions. 3. Unchanged cardiomegaly. 4. Unchanged life support devices as above. Electronically signed by: Leopoldo Magdaleno MD (03/08/2019 8:04 AM) [facility]
--- NOTE | 2019-03-08 08:25 | PDOC ---
Infectious Disease Note Subjective Subjective Sedated Intubated Fevers Tmax 100.4 TPN ROS ROS Unobtainable Vital Sign Vital Signs Vital Signs Date Time Temp Pulse Resp B/P (MAP) Pulse Ox O2 Delivery O2 Flow Rate FiO2 03/08/19 08:00 Mechanical Ventilator 03/08/19 07:58 97 03/08/19 07:35 4.0 03/08/19 06:00 75 22 140/69 (92) 03/08/19 04:00 100.4 100.4 Physical Exam PHYSICAL EXAM GENERAL: Sedated and intubated. HEENT: PERRL, normal conj. ETT. OGT NECK: Supple. LUNGS: Decreased in bases HEART: S1, S2. ABDOMEN: Obese, decreased bowel sounds, no grimace or guarding to palpation GENITOURINARY: [place] - He has 3+ scrotal swelling with less erythema. EXTREMITIES: No clubbing, cyanosis with 2 + edema. Generalized anasarca. RLE stump with chronic wound. No erythema/fluctuance/warmth SKIN: Warm to touch. 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 Labs Lab Laboratory Tests Test 03/07/19 13:20 03/07/19 20:10 03/07/19 21:00 03/08/19 05:00 O2 Saturation 91 % (92-99) Arterial Blood pH 7.43 (7.35-7.45) Arterial Blood pCO2 at Patient Temp 48 mmHg (35-46) Arterial Blood pO2 at Patient Temp 59 mmHg (75-108) Arterial Blood HCO3 32 mmol/L (21-28) Arterial Blood Base Excess 6 mmol/L (-3-3) FiO2 75% Lactic Acid Level 1.4 mmol/L (0.4-2.0) Glucose (Fingerstick) 248 mg/dL (70-99) White Blood Count 8.7 x10^3/uL (4.0-11.0) Red Blood Count 4.13 x10^6/uL (4.30-5.70) Hemoglobin 12.4 g/dL (13.0-17.5) Hematocrit 39.0 % (39.0-53.0) Mean Corpuscular Volume 95 fL (79-100) Mean Corpuscular Hemoglobin 30 pg (25-35) Mean Corpuscular Hemoglobin Concent 32 g/dL (31-37) Red Cell Distribution Width 14.6 % (11.5-14.5) Platelet Count 215 x10^3/uL (140-400) Neutrophils (%) (Auto) 81 % (31-73) Lymphocytes (%) (Auto) 6 % (24-48) Monocytes (%) (Auto) 9 % (0-9) Eosinophils (%) (Auto) 3 % (0-3) Basophils (%) (Auto) 1 % (0-3) Neutrophils # (Auto) 7.1 x10^3uL (1.8-7.7) Lymphocytes # (Auto) 0.5 x10^3/uL (1.0-4.8) Monocytes # (Auto) 0.8 x10^3/uL (0.0-1.1) Eosinophils # (Auto) 0.3 x10^3/uL (0.0-0.7) Basophils # (Auto) 0.1 x10^3/uL (0.0-0.2) Sodium Level 144 mmol/L (136-145) Potassium Level 4.9 mmol/L (3.5-5.1) Chloride Level 107 mmol/L (98-107) Carbon Dioxide Level 32 mmol/L (21-32) Anion Gap 5 (6-14) Blood Urea Nitrogen 63 mg/dL (8-26) Creatinine 2.1 mg/dL (0.7-1.3) Estimated GFR (Cockcroft-Gault) 32.8 Glucose Level 286 mg/dL (70-99) Calcium Level 8.2 mg/dL (8.5-10.1) Micro 4/4. SPUTUM CULT RES 1 Final No growth in 36 - 48 hours. 4/4. BLOOD CULTURE Preliminary NO GROWTH AFTER 2 DAY Objective Assessment Fever - ? Infection vs ileus vs drug reaction Flank rash - no Eosinophilia but ? drug - had been on micafungin so less likely yeast Tachycardia - s/p Bolus/Digoxin and Metoprolol Increased GI residuals - Has been on/off ? Ileus vs DM gastroparesis Acute respiratory failure, intubated, increased infiltrates today - ARDS Scrotal edema/cellulitis. Status post code. Fluid overload - mild increase Acute kidney injury Distant history of group B strep, Acinetobacter, Porphyromonas, plus anaerobes. Plan Plan of Care Rash present slightly per nursing evening 4/3 into 03/05. Cefepime/Flagyl began 03/05 post rash Nystatin Previously on Zyvox, Merrem and micafungin Would check other meds as potential for rash ? lasix, etc Urine eosinophils not observe May need additional imaging F/u labs/cults Supportive care Critically ill Attending Co-Sign The patient was seen and interviewed as well as examined at the bedside. The chart was reviewed. The case was discussed. Agree with the plan of care. LYNDSAY PIZARRO APRN Mar 08, 2019 08:25 HEIDY RAMIREZ MD Mar 08, 2019 09:38
[2019-03-08] MEDS: ASPIRIN CHEWABLE 81 MG TABLET. PO SCH (08:27)
[2019-03-08] MEDS: FAMOTIDINE 20 MG/2 ML VIAL IVP SCH ×2 (08:27→21:11)
[2019-03-08] MEDS: FUROSEMIDE 40 MG/4 ML VIAL. IVP SCH (08:27)
[2019-03-08] MEDS: NYSTATIN 100,000 UNIT/GM TOPICAL CREAM 15GM TUBE. TP SCH ×2 (08:28→21:11)
[2019-03-08] MEDS: INSULIN GLARGINE 300 UNITS/3 ML INSULN.PEN. SQ SCH ×2 (08:34→21:16)
[2019-03-08 09:25] LABS: BASE EXCESS ABG 6 mmol/L (-3-3); HCO3 ABG 31 mmol/L (21-28); PCO2 ABG 47 mmHg (35-46); PO2 ABG 61 mmHg (75-108); SAT O2 ABG 91 % (92-99)
[2019-03-08 09:37] LABS: FIO2 ABG 80
--- NOTE | 2019-03-08 09:58 | PDOC ---
PROGRESS NOTES Chief Complaint Chief Complaint Assessment/Plan ACUTE RESP ARREST POST CODE ON FLOOR 02/27 Acute respiratory failure secondary to congestive heart failure, most probably acute on chronic diastolic. s/p intubation. Myocardial infarction ruled out. Hypernatremia secondary to severe dehydration will need to provide water flushes in order to correct electrolyte disturbance. High residuals on tube feedings no evidence of obstructive pattern on x ray done 03/05/2019 3 weeks of bilateral general scrotal swelling and tenderness. +dyspnea, abd swelling, leg swelling. POA, Dm2 obesity, extreme, morbid hx RLE BKA RLE stump with chronic wound. No erythema/warmth left foot nail onychomycosis needs attention when more clinically stable Acute renal failure ATN Renal CONSULT 3.1-1.8 chronic venous insuff left lower leg nonspecific perinephric stranding with slight asymmetric stranding adjacent to the left renal pelvis. Findings may be due to chronic kidney disease, though ascending urinary tract infection is not excluded. Bilateral lower lobe consolidation concerning for multifocal pneumonia aspiration not excluded. Right renal hypodensity measuring 2.5 cm is incompletely evaluated on noncontrast examination. Follow-up MRI or CT abdomen and pelvis renal protocol with contrast is recommended for further evaluation. Anasarca. bilateral external iliac lymphadenopathy, may be reactive, though follow-up CT abdomen and pelvis in 3 months is recommended to assess for stability/resolution. Nonobstructive left nephrolithiasis. Coronary artery calcifications. The left ventricular systolic function is normal.ejection fraction is 60-65% .normal LV segmental wall motion. Transmitral Doppler flow pattern is Grade I-abnormal relaxation pattern. Trace tricuspid regurgitation. Estimated PAP 33-38 mmHg. PLAN richar increase insulin continue with supportive measures constipation resolved ventilatory support still requiring 80% and PEEP of 10 follow recommendations from wireless sales consultant. UROLOGY CONSULT reviewed no intervention needed except for elevation and diuresis ID CONSULT continue wtih antibiotic as per ID ECHO noted critically stable. History of Present Illness History of Present Illness Patient with no acute events reported overnight.less distention after several bowel movements yesterday, continues to require mechanical ventilation, Vitals Vitals Vital Signs Date Time Temp Pulse Resp B/P (MAP) Pulse Ox O2 Delivery O2 Flow Rate FiO2 03/08/19 09:00 75 22 127/69 (88) 97 Ventilator 03/08/19 08:00 99.1 99.1 03/08/19 07:35 4.0 Physical Exam Physical Exam GENERAL: Sedated and intubated. HEENT: PERRL, normal conj. ETT. OGT NECK: Supple. LUNGS: Decreased in bases HEART: S1, S2. ABDOMEN: Obese, decreased bowel sounds, no grimace or guarding to palpation GENITOURINARY: [place] - He has 3+ scrotal swelling with less erythema. EXTREMITIES: No clubbing, cyanosis with 2 + edema. Generalized anasarca. RLE stump with chronic wound. No erythema/fluctuance/warmth SKIN: Warm to touch. 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 groin CLINICAL NURSING COORDINATOR: Sedated RIJ General: Other (intubated.) Heart: Regular rate Lungs: Crackles, Other (decrease bs) Abdomen: Normal bowel sounds Extremities: No cyanosis, Other (ANASARCA) Skin: Other (scale, lower leg ) Labs LABS Laboratory Tests Test 03/07/19 13:20 03/07/19 20:10 03/07/19 21:00 03/08/19 05:00 O2 Saturation 91 % (92-99) Arterial Blood pH 7.43 (7.35-7.45) Arterial Blood pCO2 at Patient Temp 48 mmHg (35-46) Arterial Blood pO2 at Patient Temp 59 mmHg (75-108) Arterial Blood HCO3 32 mmol/L (21-28) Arterial Blood Base Excess 6 mmol/L (-3-3) FiO2 75% Lactic Acid Level 1.4 mmol/L (0.4-2.0) Glucose (Fingerstick) 248 mg/dL (70-99) White Blood Count 8.7 x10^3/uL (4.0-11.0) Red Blood Count 4.13 x10^6/uL (4.30-5.70) Hemoglobin 12.4 g/dL (13.0-17.5) Hematocrit 39.0 % (39.0-53.0) Mean Corpuscular Volume 95 fL (79-100) Mean Corpuscular Hemoglobin 30 pg (25-35) Mean Corpuscular Hemoglobin Concent 32 g/dL (31-37) Red Cell Distribution Width 14.6 % (11.5-14.5) Platelet Count 215 x10^3/uL (140-400) Neutrophils (%) (Auto) 81 % (31-73) Lymphocytes (%) (Auto) 6 % (24-48) Monocytes (%) (Auto) 9 % (0-9) Eosinophils (%) (Auto) 3 % (0-3) Basophils (%) (Auto) 1 % (0-3) Neutrophils # (Auto) 7.1 x10^3uL (1.8-7.7) Lymphocytes # (Auto) 0.5 x10^3/uL (1.0-4.8) Monocytes # (Auto) 0.8 x10^3/uL (0.0-1.1) Eosinophils # (Auto) 0.3 x10^3/uL (0.0-0.7) Basophils # (Auto) 0.1 x10^3/uL (0.0-0.2) Sodium Level 144 mmol/L (136-145) Potassium Level 4.9 mmol/L (3.5-5.1) Chloride Level 107 mmol/L (98-107) Carbon Dioxide Level 32 mmol/L (21-32) Anion Gap 5 (6-14) Blood Urea Nitrogen 63 mg/dL (8-26) Creatinine 2.1 mg/dL (0.7-1.3) Estimated GFR (Cockcroft-Gault) 32.8 Glucose Level 286 mg/dL (70-99) Calcium Level 8.2 mg/dL (8.5-10.1) Test 03/08/19 08:00 O2 Saturation 91 % (92-99) Arterial Blood pH 7.44 (7.35-7.45) Arterial Blood pCO2 at Patient Temp 47 mmHg (35-46) Arterial Blood pO2 at Patient Temp 61 mmHg (75-108) Arterial Blood HCO3 31 mmol/L (21-28) Arterial Blood Base Excess 6 mmol/L (-3-3) FiO2 80 Assessment and Plan Assessmemt and Plan Problems Medical Problems: (1) Acute renal failure Status: Acute (2) Edema Status: Acute (3) Shortness of breath Status: Acute Comment Review of Relevant I have reviewed the following items pascual (where applicable) has been applied. Labs Laboratory Tests Test 03/06/19 20:41 03/07/19 05:15 03/07/19 08:00 03/07/19 13:20 Glucose (Fingerstick) 185 mg/dL (70-99) White Blood Count 8.6 x10^3/uL (4.0-11.0) Red Blood Count 4.22 x10^6/uL (4.30-5.70) Hemoglobin 13.0 g/dL (13.0-17.5) Hematocrit 40.4 % (39.0-53.0) Mean Corpuscular Volume 96 fL (79-100) Mean Corpuscular Hemoglobin 31 pg (25-35) Mean Corpuscular Hemoglobin Concent 32 g/dL (31-37) Red Cell Distribution Width 14.4 % (11.5-14.5) Platelet Count 200 x10^3/uL (140-400) Neutrophils (%) (Auto) 78 % (31-73) Lymphocytes (%) (Auto) 9 % (24-48) Monocytes (%) (Auto) 10 % (0-9) Eosinophils (%) (Auto) 3 % (0-3) Basophils (%) (Auto) 0 % (0-3) Neutrophils # (Auto) 6.7 x10^3uL (1.8-7.7) Lymphocytes # (Auto) 0.7 x10^3/uL (1.0-4.8) Monocytes # (Auto) 0.8 x10^3/uL (0.0-1.1) Eosinophils # (Auto) 0.3 x10^3/uL (0.0-0.7) Basophils # (Auto) 0.0 x10^3/uL (0.0-0.2) Sodium Level 143 mmol/L (136-145) Potassium Level 4.7 mmol/L (3.5-5.1) Chloride Level 105 mmol/L (98-107) Carbon Dioxide Level 33 mmol/L (21-32) Anion Gap 5 (6-14) Blood Urea Nitrogen 51 mg/dL (8-26) Creatinine 2.1 mg/dL (0.7-1.3) Estimated GFR (Cockcroft-Gault) 32.8 BUN/Creatinine Ratio 24 (6-20) Glucose Level 202 mg/dL (70-99) Calcium Level 8.2 mg/dL (8.5-10.1) Total Bilirubin 0.4 mg/dL (0.2-1.0) Aspartate Amino Transf (AST/SGOT) 36 U/L (15-37) Alanine Aminotransferase (ALT/SGPT) 30 U/L (16-63) Alkaline Phosphatase 74 U/L (46-116) Total Protein 6.6 g/dL (6.4-8.2) Albumin 2.0 g/dL (3.4-5.0) Albumin/Globulin Ratio 0.4 (1.0-1.7) O2 Saturation 95 % (92-99) 91 % (92-99) Arterial Blood pH 7.31 (7.35-7.45) 7.43 (7.35-7.45) Arterial Blood pCO2 at Patient Temp 68 mmHg (35-46) 48 mmHg (35-46) Arterial Blood pO2 at Patient Temp 81 mmHg (75-108) 59 mmHg (75-108) Arterial Blood HCO3 33 mmol/L (21-28) 32 mmol/L (21-28) Arterial Blood Base Excess 5 mmol/L (-3-3) 6 mmol/L (-3-3) FiO2 80 75% Test 03/07/19 20:10 03/07/19 21:00 03/08/19 05:00 03/08/19 08:00 Lactic Acid Level 1.4 mmol/L (0.4-2.0) Glucose (Fingerstick) 248 mg/dL (70-99) White Blood Count 8.7 x10^3/uL (4.0-11.0) Red Blood Count 4.13 x10^6/uL (4.30-5.70) Hemoglobin 12.4 g/dL (13.0-17.5) Hematocrit 39.0 % (39.0-53.0) Mean Corpuscular Volume 95 fL (79-100) Mean Corpuscular Hemoglobin 30 pg (25-35) Mean Corpuscular Hemoglobin Concent 32 g/dL (31-37) Red Cell Distribution Width 14.6 % (11.5-14.5) Platelet Count 215 x10^3/uL (140-400) Neutrophils (%) (Auto) 81 % (31-73) Lymphocytes (%) (Auto) 6 % (24-48) Monocytes (%) (Auto) 9 % (0-9) Eosinophils (%) (Auto) 3 % (0-3) Basophils (%) (Auto) 1 % (0-3) Neutrophils # (Auto) 7.1 x10^3uL (1.8-7.7) Lymphocytes # (Auto) 0.5 x10^3/uL (1.0-4.8) Monocytes # (Auto) 0.8 x10^3/uL (0.0-1.1) Eosinophils # (Auto) 0.3 x10^3/uL (0.0-0.7) Basophils # (Auto) 0.1 x10^3/uL (0.0-0.2) Sodium Level 144 mmol/L (136-145) Potassium Level 4.9 mmol/L (3.5-5.1) Chloride Level 107 mmol/L (98-107) Carbon Dioxide Level 32 mmol/L (21-32) Anion Gap 5 (6-14) Blood Urea Nitrogen 63 mg/dL (8-26) Creatinine 2.1 mg/dL (0.7-1.3) Estimated GFR (Cockcroft-Gault) 32.8 Glucose Level 286 mg/dL (70-99) Calcium Level 8.2 mg/dL (8.5-10.1) O2 Saturation 91 % (92-99) Arterial Blood pH 7.44 (7.35-7.45) Arterial Blood pCO2 at Patient Temp 47 mmHg (35-46) Arterial Blood pO2 at Patient Temp 61 mmHg (75-108) Arterial Blood HCO3 31 mmol/L (21-28) Arterial Blood Base Excess 6 mmol/L (-3-3) FiO2 80 Laboratory Tests Test 03/07/19 13:20 03/07/19 20:10 03/07/19 21:00 03/08/19 05:00 O2 Saturation 91 % (92-99) Arterial Blood pH 7.43 (7.35-7.45) Arterial Blood pCO2 at Patient Temp 48 mmHg (35-46) Arterial Blood pO2 at Patient Temp 59 mmHg (75-108) Arterial Blood HCO3 32 mmol/L (21-28) Arterial Blood Base Excess 6 mmol/L (-3-3) FiO2 75% Lactic Acid Level 1.4 mmol/L (0.4-2.0) Glucose (Fingerstick) 248 mg/dL (70-99) White Blood Count 8.7 x10^3/uL (4.0-11.0) Red Blood Count 4.13 x10^6/uL (4.30-5.70) Hemoglobin 12.4 g/dL (13.0-17.5) Hematocrit 39.0 % (39.0-53.0) Mean Corpuscular Volume 95 fL (79-100) Mean Corpuscular Hemoglobin 30 pg (25-35) Mean Corpuscular Hemoglobin Concent 32 g/dL (31-37) Red Cell Distribution Width 14.6 % (11.5-14.5) Platelet Count 215 x10^3/uL (140-400) Neutrophils (%) (Auto) 81 % (31-73) Lymphocytes (%) (Auto) 6 % (24-48) Monocytes (%) (Auto) 9 % (0-9) Eosinophils (%) (Auto) 3 % (0-3) Basophils (%) (Auto) 1 % (0-3) Neutrophils # (Auto) 7.1 x10^3uL (1.8-7.7) Lymphocytes # (Auto) 0.5 x10^3/uL (1.0-4.8) Monocytes # (Auto) 0.8 x10^3/uL (0.0-1.1) Eosinophils # (Auto) 0.3 x10^3/uL (0.0-0.7) Basophils # (Auto) 0.1 x10^3/uL (0.0-0.2) Sodium Level 144 mmol/L (136-145) Potassium Level 4.9 mmol/L (3.5-5.1) Chloride Level 107 mmol/L (98-107) Carbon Dioxide Level 32 mmol/L (21-32) Anion Gap 5 (6-14) Blood Urea Nitrogen 63 mg/dL (8-26) Creatinine 2.1 mg/dL (0.7-1.3) Estimated GFR (Cockcroft-Gault) 32.8 Glucose Level 286 mg/dL (70-99) Calcium Level 8.2 mg/dL (8.5-10.1) Test 03/08/19 08:00 O2 Saturation 91 % (92-99) Arterial Blood pH 7.44 (7.35-7.45) Arterial Blood pCO2 at Patient Temp 47 mmHg (35-46) Arterial Blood pO2 at Patient Temp 61 mmHg (75-108) Arterial Blood HCO3 31 mmol/L (21-28) Arterial Blood Base Excess 6 mmol/L (-3-3) FiO2 80 Microbiology 03/05/19 Blood Culture - Preliminary, Resulted NO GROWTH AFTER 2 DAYS 03/05/19 - Final, Resulted 03/05/19 - Final, Resulted 03/05/19 - Final, Resulted 03/05/19 Gram Stain Evaluation - Final, Resulted 03/05/19 Sputum Culture - Preliminary, Resulted 03/05/19 Sputum Result 1 - Final, Resulted 03/02/19 Urine Culture - Final, Complete 03/02/19 Urine Culture Result 1 (LUCIO) - Final, Complete Medications Current Medications Ondansetron HCl (Zofran) 4 mg PRN Q8HRS PRN IV NAUSEA/VOMITING; Start 02/27/19 at 16:45; Stop 02/28/19 at 16:44; Status DC Morphine Sulfate (Morphine Sulfate) 2 mg PRN Q2HR PRN IV PAIN; Start 02/27/19 at 16:45; Stop 02/28/19 at 16:44; Status DC Acetaminophen (Tylenol) 650 mg PRN Q4HRS PRN PO FEVER Last administered on 02/27at 21:06; Start 02/27/19 at 16:45; Stop 02/28/19 at 16:44; Status DC Dextrose (Dextrose 50%-Water Syringe) 12.5 gm PRN Q15MIN PRN IV SEE COMMENTS; Start 02/27/19 at 16:45 Heparin Sodium (Porcine) (Heparin Sodium) 5,000 unit Q8HRS SQ Last administered on 03/08/19at 05:45; Start 02/27/19 at 17:00 Lorazepam (Ativan) 1 mg PRN Q8HRS PRN IV ANXIETY / AGITATION Last administered on 03/08/19at 03:37; Start 02/28/19 at 02:45 Etomidate (Amidate) 20 mg STK-MED ONCE IV ; Start 02/28/19 at 06:59; Stop at 07:00; Status DC Rocuronium Crawford (Zemuron) 50 mg STK-MED ONCE .ROUTE ; Start 02/28/19 at 07:00 ; Stop 02/28/19 at 09:42; Status DC Dopamine HCl/ Dextrose 250 ml @ 12.266 mls/ hr CONT PRN IV SEE I/O RECORD Last administered on 02/28/19at 08:06; Start 02/28/19 at 07:15 Fentanyl Citrate 30 ml @ 0 mls/hr CONT PRN IV SEE PROTOCOL; Start 02/28/19 at 07:15; Stop 02/28/19 at 07:59; Status DC Propofol 100 ml @ 0 mls/hr CONT PRN IV SEE PROTOCOL; Start 02/28/19 at 07:15; Stop 02/28/19 at 07:59; Status DC Fentanyl Citrate (Fentanyl 2ml Vial) 25 mcg PRN Q1HR PRN IV SEE COMMENTS; Start 02/28/19 at 07:15; Stop 02/28/19 at 07:59; Status DC Fentanyl Citrate (Fentanyl 2ml Vial) 50 mcg PRN Q1HR PRN IV SEE COMMENTS; Start 02/28/19 at 07:15; Stop 02/28/19 at 07:59; Status DC Midazolam HCl 100 ml @ 0 mls/hr CONT PRN IV SEE PROTOCOL Last administered on at 05:04; Start 02/28/19 at 07:15 Sodium Chloride 1,000 ml @ 1,000 mls/hr Q1H IV Last administered on 02/28/19at 07:32; Start 02/28/19 at 07:32; Stop 02/28/19 at 10:09; Status DC Fentanyl Citrate (Fentanyl 2ml Vial) 25 mcg PRN Q30MIN PRN IV see comments; Start 02/28/19 at 07:45; Stop 02/28/19 at 09:42; Status DC Lorazepam (Ativan) 1 mg PRN Q30MIN PRN IV SEDATION; Start 02/28/19 at 07:45; Stop 02/28/19 at 09:42; Status DC Fentanyl Citrate 30 ml @ 2.5 mls/hr CONT PRN PRN IV SEE I/O RECORD Last administered on 03/05/19at 03:44; Start 02/28/19 at 07:45; Stop 03/05/19 at 04:40; Status DC Propofol 100 ml @ 0 mls/hr CONT PRN IV SEE I/O RECORD; Start 02/28/19 at 07:45 Vecuronium Crawford (Norcuron Bolus) 10 mg PRN Q30MIN PRN IV SHIVERING; Start at 07:45; Stop 02/28/19 at 09:42; Status DC Meperidine HCl (Demerol) 12.5 mg PRN Q30MIN PRN IV SHIVERING; Start 02/28/19 at 07:45; Stop 02/28/19 at 09:42; Status DC Multi-Ingred Cream/Lotion/Oil/ Oint (Artificial Tears Eye Ointment) 1 jennifer PRN Q6HRS PRN OU 0.5 INCH FOR DRY EYE; Start 02/28/19 at 07:45; Stop 02/28/19 at 09 :42; Status DC Famotidine (Pepcid Vial) 20 mg BID IVP Last administered on 02/28/19at 11:03; Start 02/28/19 at 09:00; Stop 02/28/19 at 14:25; Status DC Aspirin (Aspirin) 300 mg DAILY TN ; Start 02/28/19 at 09:00; Stop 02/28/19 at 09 :42; Status DC Sodium Chloride (Normal Saline Flush) 3 ml QSHIFT PRN IV AFTER MEDS AND BLOOD DRAWS; Start 02/28/19 at 07:45 Acetaminophen (Tylenol) 650 mg Q6HRS NG ; Start 02/28/19 at 12:00; Stop at 12:00; Status DC Acetaminophen (Tylenol Supp) 650 mg PRN Q6HRS PRN TN MILD PAIN / TEMP; Start at 07:45; Stop 03/01/19 at 07:45; Status DC Acetaminophen (Tylenol) 650 mg PRN Q6HRS PRN NG MILD PAIN / TEMP; Start at 07:45; Stop 03/01/19 at 07:45; Status DC Info (Icu Electrolyte Protocol) 1 ea DAILY PRN MC PER PROTOCOL; Start 03/02/19 at 07:45; Stop 03/02/19 at 07:45; Status DC Furosemide (Lasix) 60 mg 1X ONCE IVP Last administered on 02/28/19at 08:30; Start 02/28/19 at 08:30; Stop 02/28/19 at 08:31; Status DC Ceftriaxone Sodium (Rocephin) 1 gm Q24H IVP Last administered on 02/28/19at 11: 03; Start 02/28/19 at 11:00; Stop 02/28/19 at 11:18; Status DC Calcium Chloride 1000 mg/Dextrose 60 ml @ 120 mls/hr 1X ONCE IV Last administered on 02/28/19at 11:03; Start 02/28/19 at 10:30; Stop 02/28/19 at 10:59 ; Status DC Meropenem 500 mg/ Sodium Chloride 50 ml @ 100 mls/hr Q8HRS IV Last administered on 03/03/19at 06:24; Start 02/28/19 at 14:00; Stop 03/03/19 at 07:04; Status DC Linezolid/Dextrose 300 ml @ 300 mls/hr Q12HR IV Last administered on 03/03/19at 20:00; Start 02/28/19 at 11:30; Stop 03/04/19 at 08:55; Status DC Micafungin Sodium 100 mg/Dextrose 100 ml @ 100 mls/hr Q24H IV Last administered on 03/04/19at 15:53; Start 02/28/19 at 12:00; Stop 03/05/19 at 06:47; Status DC Furosemide (Lasix) 40 mg BID92 IVP Last administered on 03/02/19at 14:06; Start 02/28/19 at 14:00; Stop 03/02/19 at 17:02; Status DC Famotidine (Pepcid Vial) 20 mg QHS IVP Last administered on 03/01/19at 21:24; Start 02/28/19 at 21:00; Stop 03/02/19 at 10:07; Status DC Albuterol/ Ipratropium (Duoneb) 3 ml RTQID NEB Last administered on 03/08/19at 07 :58; Start 02/28/19 at 16:00 Haloperidol Lactate (Haldol Inj) 5 mg PRN Q6HRS PRN IVP AGITATION 2ND CHOICE Last administered on 03/08/19at 03:37; Start 02/28/19 at 15:15 Vecuronium Crawford (Norcuron Bolus) 8 mg PRN Q4HRS PRN IV MUSCLE SPASMS Last administered on 03/04/19at 04:47; Start 02/28/19 at 15:15 Perflutren Protein Type A Microsphe (Optison) 0.66 mg PRN 1X PRN IV SEE COMMENTS; Start 03/01/19 at 10:00; Stop 03/02/19 at 09:59; Status DC Digoxin (Lanoxin) 125 mcg 1X STAT IV ; Start 03/01/19 at 15:34; Stop 03/01/19 at 16:00; Status DC Sodium Chloride 500 ml @ 500 mls/hr 1X ONCE IV Last administered on at 18:46; Start 03/01/19 at 18:45; Stop 03/01/19 at 19:44; Status DC Famotidine (Pepcid Vial) 20 mg Q12HR IVP Last administered on 03/08/19at 08:27; Start 03/02/19 at 21:00 Furosemide (Lasix) 40 mg DAILY IVP Last administered on 03/04/19 09:52; Start 03/03/19 at 09:00; Stop 03/04/19 at 12:13; Status DC Acetaminophen (Tylenol Supp) 650 mg PRN Q6HRS PRN TN MILD PAIN / TEMP Last administered on 03/03/19at 17:39; Start 03/02/19 at 17:15 Meropenem 500 mg/ Sodium Chloride 50 ml @ 100 mls/hr Q6HRS IV Last administered on 03/05/19 05:33; Start 03/03/19 at 12:00; Stop 03/05/19 at 06:47; Status DC Albumin Human 100 ml @ 100 mls/hr 1X ONCE IV Last administered on 03/03/19 08 :52; Start 03/03/19 at 08:30; Stop 03/03/19 at 09:29; Status DC Atropine Sulfate (ATROPINE 0.5mg SYRINGE) 2 mg STK-MED ONCE .ROUTE ; Start 02/27 at 16:21; Stop 03/03/19 at 16:22; Status DC Dopamine HCl/ Dextrose (DOPamine 400MG/ 250ML PREMIX) 400 mg STK-MED ONCE IV ; Start 02/27/19 at 16:21; Stop 03/03/19 at 16:22; Status DC Furosemide (Lasix) 40 mg 1X ONCE IVP Last administered on 03/03/19at 18:46; Start 03/03/19 at 18:45; Stop 03/03/19 at 18:46; Status DC Lorazepam 100 mg/ Sodium Chloride 100 ml @ 0 mls/hr CONT PRN IV SEE PROTOCOL Last administered on 03/03/19at 22:18; Start 03/03/19 at 22:00 Acetaminophen (Tylenol) 650 mg PRN Q6HRS PRN PEG MILD PAIN / TEMP Last administered on 03/05/19 09:32; Start 03/04/19 at 11:45 Furosemide (Lasix) 40 mg BID92 IVP Last administered on 03/06/19 08:38; Start 03/04/19 at 14:00; Stop 03/06/19 at 13:30; Status DC Fentanyl Citrate 30 ml @ 0 mls/hr CONT PRN IV SEE PROTOCOL Last administered on 03/08/19 07:35; Start 03/05/19 at 04:45 Cefepime HCl (Maxipime) 2 gm Q8HRS IVP Last administered on 03/08/19 05:44; Start 03/05/19 at 06:45 Metronidazole 100 ml @ 100 mls/hr Q8HRS IV Last administered on 03/08/19 05:45 ; Start 03/05/19 at 06:45 Linezolid/Dextrose 300 ml @ 300 mls/hr Q12HR IV Last administered on 03/05/19 21:24; Start 03/05/19 at 09:00; Stop 03/06/19 at 06:42; Status DC Metoclopramide HCl (Reglan Vial) 10 mg QIDACHS IV Last administered on 20:43; Start 03/05/19 at 11:30; Stop 03/07/19 at 07:37; Status DC Insulin Glargine (Lantus) 12 units BID SQ Last administered on 03/08/19 08:34; Start 03/05/19 at 09:00 Digoxin (Lanoxin) 500 mcg 1X ONCE IV Last administered on 03/06/19 00:48; Start 03/06/19 at 00:45; Stop 03/06/19 at 00:46; Status DC Metoprolol Tartrate (Lopressor Vial) 5 mg 1X ONCE IVP Last administered on 03/06 00:53; Start 03/06/19 at 00:45; Stop 03/06/19 at 00:46; Status DC Sodium Chloride 500 ml @ 500 mls/hr 1X ONCE IV Last administered on 03/06/19 00:49; Start 03/06/19 at 00:45; Stop 03/06/19 at 01:44; Status DC Nystatin (Mycostatin) 1 jennifer BID TP Last administered on 03/08/19 08:28; Start 03/06/19 at 09:00 Sodium Cl/Sod Bicarb/Potass Cl/ PEG (Golytely) 2,000 ml 1X ONCE PO Last administered on 03/06/19 09:33; Start 03/06/19 at 08:00; Stop 03/06/19 at 08:01; Status DC Furosemide (Lasix) 40 mg DAILY08 IVP Last administered on 03/08/19 08:27; Start 03/07/19 at 08:00 Metoprolol Tartrate (Lopressor Vial) 10 mg 1X ONCE IVP Last administered on 16:08; Start 03/06/19 at 15:15; Stop 03/06/19 at 15:16; Status DC Metoprolol Tartrate (Lopressor Vial) 5 mg Q6HRS IVP Last administered on 17:03; Start 03/06/19 at 18:00; Stop 03/07/19 at 18:27; Status DC Aspirin (Children'S Aspirin) 81 mg 1X ONCE PO Last administered on 03/06/19 18 :18; Start 03/06/19 at 17:00; Stop 03/06/19 at 17:01; Status DC Aspirin (Children'S Aspirin) 81 mg DAILYWBKFT PO Last administered on 03/08/19 08:27; Start 03/07/19 at 08:00 Labetalol HCl (Normodyne Iv Push) 20 mg PRN Q2HR PRN IVP HYPERTENSION, SEE COMMENTS Last administered on 03/06/19 21:29; Start 03/06/19 at 17:15 Digoxin (Lanoxin) 250 mcg 1X ONCE IV Last administered on 03/06/19 22:00; Start 03/06/19 at 22:00; Stop 03/06/19 at 22:01; Status DC Diltiazem HCl 125 mg/Dextrose 125 ml @ 5 mls/hr CONT PRN IV SEE I/O RECORD Last administered on 03/07/19at 21:59; Start 03/06/19 at 23:00 Metoclopramide HCl (Reglan Vial) 10 mg Q6HRS IV ; Start 03/07/19 at 08:00; Stop 03/08/19 at 07:51; Status DC Metoprolol Tartrate (Lopressor Vial) 5 mg Q6HRS IVP ; Start 03/08/19 at 12:00 Active Scripts Active Reported Proair Hfa Inhaler (Albuterol Sulfate) 8.5 Gm Hfa.aer.ad 1 Puff INH PRN Q6HRS PRN Lantus Solostar (Insulin Glargine,Hum.rec.anlog) 100 Unit/1 Ml Insuln.pen 20 Unit SQ QHS Humalog (Insulin Lispro) 100 Unit/1 Ml Cartridge 6 Unit SQ TIDWMEALS Doxazosin Mesylate 2 Mg Tablet 2 Mg PO DAILY Omeprazole 40 Mg Capsule.dr 40 Mg PO DAILY Amlodipine Besylate 10 Mg Tablet 10 Mg PO DAILY Atorvastatin Calcium 20 Mg Tablet 20 Mg PO DAILY Atenolol 50 Mg Tablet 50 Mg PO DAILY Losartan Potassium 100 Mg Tablet 100 Mg PO DAILY Aspirin 81 Mg Tab.chew 81 Mg PO DAILY Glyburide 5 Mg Tablet 1 Tab PO BID Vitals/I & O Vital Sign - Last 24 Hours 03/07/19 03/07/19 03/07/19 03/07/19 10:00 11:00 11:25 11:40 Pulse 88 92 Resp 18 22 B/P (MAP) 121/65 (83) 107/62 (77) Pulse Ox 97 95 97 93 O2 Delivery Ventilator Ventilator Ventilator O2 Flow Rate 4.0 03/07/19 03/07/19 03/07/19 03/07/19 12:00 12:00 12:16 13:00 Temp 100.0 100.0 Pulse 90 96 101 Resp 22 22 B/P (MAP) 113/54 (73) 107/62 119/54 (75) Pulse Ox 95 94 O2 Delivery Mechanical Ventilator Ventilator Ventilator 03/07/19 03/07/19 03/07/19 03/07/19 13:20 13:50 14:00 15:00 Pulse 101 98 Resp 22 22 B/P (MAP) 110/58 (75) 111/53 (72) Pulse Ox 94 93 92 O2 Delivery Ventilator Ventilator Ventilator Ventilator 03/07/19 03/07/19 03/07/19 03/07/19 16:00 16:00 16:51 17:00 Temp 100.3 100.3 Pulse 96 92 Resp 22 22 B/P (MAP) 119/60 (79) 137/77 (97) Pulse Ox 92 93 93 O2 Delivery Mechanical Ventilator Ventilator Ventilator O2 Flow Rate 4.0 03/07/19 03/07/19 03/07/19 03/07/19 17:03 17:21 18:00 19:00 Pulse 95 89 88 Resp 22 21 B/P (MAP) 137/77 175/76 (109) 143/68 (93) Pulse Ox 93 90 88 O2 Delivery Ventilator Ventilator O2 Flow Rate 4.0 03/07/19 03/07/19 03/07/19 03/07/19 19:45 20:00 20:31 21:00 Temp 100.3 100.3 Pulse 81 78 Resp B/P (MAP) 115/55 (75) 135/59 (84) Pulse Ox 98 99 100 O2 Delivery Mechanical Ventilator Ventilator Ventilator Ventilator 03/07/19 03/07/19 03/07/19 03/07/19 21:05 22:00 23:00 23:30 Pulse 74 73 Resp B/P (MAP) 137/67 (90) 122/61 (81) Pulse Ox 99 96 96 95 O2 Delivery Ventilator Ventilator Ventilator Ventilator 03/07/19 03/08/19 03/08/19 03/08/19 23:45 00:00 01:00 01:45 Temp 99.2 99.2 Pulse 70 70 Resp B/P (MAP) 125/62 (83) 141/75 (97) Pulse Ox 95 95 96 O2 Delivery Mechanical Ventilator Ventilator Ventilator Ventilator 03/08/19 03/08/19 03/08/19 03/08/19 02:00 03:00 04:00 04:00 Temp 100.4 100.4 Pulse 85 88 81 Resp 22 28 21 B/P (MAP) 162/65 (97) 165/81 (109) 155/71 (99) Pulse Ox 95 95 95 O2 Delivery Ventilator Ventilator Mechanical Ventilator Ventilator 03/08/19 03/08/19 03/08/19 03/08/19 04:40 05:00 06:00 07:00 Pulse 74 75 66 Resp 22 22 22 B/P (MAP) 115/60 (78) 140/69 (92) 129/67 (87) Pulse Ox 93 94 97 97 O2 Delivery Ventilator Ventilator Ventilator Ventilator 03/08/19 03/08/19 03/08/19 03/08/19 07:35 07:58 08:00 08:00 Temp 99.1 99.1 Pulse 69 Resp 22 B/P (MAP) 126/63 (84) Pulse Ox 97 97 96 O2 Delivery Ventilator Mechanical Ventilator Ventilator O2 Flow Rate 4.0 03/08/19 09:00 Pulse 75 Resp 22 B/P (MAP) 127/69 (88) Pulse Ox 97 O2 Delivery Ventilator Intake and Output 03/07/19 03/07/19 03/08/19 15:00 23:00 07:00 Intake Total 408 ml 1563 ml 1449 ml Output Total 535 ml 420 ml 350 ml Balance -127 ml 1143 ml 1099 ml MICHAEL BURRIS MD Mar 08, 2019 09:58
[2019-03-08] MEDS: METOPROLOL TARTRATE 5 MG/5 ML VIAL. IVP SCH ×2 (12:22→18:00)
--- NOTE | 2019-03-08 13:14 | NUR ---
Patient extubated at 1305 to 2L nasal cannula. Addendum: 03/09/19 at 1339 by REMY LOAIZA RT Disregard previous note. Patient remains intubated.
--- NOTE | 2019-03-08 13:53 | PDOC ---
SUBJECTIVE ROS Intubated , no new concerns voiced by nursing OBJECTIVE Vital Signs Vital Signs Date Time Temp Pulse Resp B/P (MAP) Pulse Ox O2 Delivery O2 Flow Rate FiO2 03/08/19 12:50 94 4.0 03/08/19 12:37 Ventilator 03/08/19 12:22 75 118/62 03/08/19 12:00 99.0 22 99.0 I & 0 Intake and Output 03/08/19 07:00 Intake Total 3420 ml Output Total 1305 ml Balance 2115 ml IV Total 754 ml Tube Feeding 2066 ml Other 600 ml Output Urine Total 1305 ml Gastric Drainage Total 0 ml # Bowel Movements 1 PHYSICAL EXAM Physical Exam GENERAL: Sedated and intubated. HEENT: ETT. OGT NECK: Supple. LUNGS: CTA ant HEART: S1, S2. ABDOMEN: Distended with decreased bowel sounds GENITOURINARY: Coburn +, 2+ scrotal swelling EXTREMITIES: 2 + edema. Generalized anasarca. RLE stump with chronic wound. MAITRE D': Unresponsive SKIN: bilateral flank and Lt groin maculo papular rash DIAGNOSIS/ASSESSMENT Assessment & Plan LEONARD- Cr was improving was down to 1.5 Gone went back up to 2 .1, stable today Decreased IV Lasix to QD Stable UOP, Monitor Anasarca- Improved Hypernatremia - Resolved Right Renal mass Fever - ? Infection vs ileus vs drug reaction Flank rash - no Eosinophilia Acute respiratory failure, intubated, increased infiltrates today - ARDS Scrotal edema/cellulitis- Improved urology consulted Status post code. Discussed with Dr. Vinson and RN at bedside COMMENT/RELEVANT DATA Meds Current Medications Medications (Trade) Dose Ordered Sig/Lula Start Time Stop Time Status Last Admin Dose Admin Acetaminophen (Tylenol Supp) 650 mg PRN Q6HRS PRN 03/02/19 17:15 03/03/19 17:39 650 MG Acetaminophen (Tylenol) 650 mg PRN Q6HRS PRN 03/04/19 11:45 03/05/19 09:32 650 MG Albumin Human 100 ml @ 100 mls/hr 1X ONCE 03/03/19 08:30 03/03/19 09:29 DC 03/03/19 08:52 100 MLS/HR Albuterol/ Ipratropium (Duoneb) 3 ml RTQID 02/28/19 16:00 03/08/19 12:36 3 ML Aspirin (Aspirin) 300 mg DAILY 02/28/19 09:00 02/28/19 09:42 DC Aspirin (Children'S Aspirin) 81 mg DAILYWBKFT 03/07/19 08:00 03/08/19 08:27 81 MG Atropine Sulfate (ATROPINE 0.5mg SYRINGE) 2 mg STK-MED ONCE 02/27/19 16:21 03/03/19 16:22 DC Calcium Chloride 1000 mg/Dextrose 60 ml @ 120 mls/hr 1X ONCE 02/28/19 10:30 02/28/19 10:59 DC 02/28/19 11:03 120 MLS/HR Cefepime HCl (Maxipime) 2 gm Q8HRS 03/05/19 06:45 03/08/19 05:44 2 GM Ceftriaxone Sodium (Rocephin) 1 gm Q24H 02/28/19 11:00 02/28/19 11:18 DC 02/28/19 11:03 1 GM Dextrose (Dextrose 50%-Water Syringe) 12.5 gm PRN Q15MIN PRN 02/27/19 16:45 Digoxin (Lanoxin) 250 mcg 1X ONCE 03/06/19 22:00 03/06/19 22:01 DC 03/06/19 22:00 250 MCG Diltiazem HCl 125 mg/Dextrose 125 ml @ 5 mls/hr CONT PRN 03/06/19 23:00 03/07/19 21:59 5 MLS/HR Dopamine HCl/ Dextrose (DOPamine 400MG/ 250ML PREMIX) 400 mg STK-MED ONCE 02/27/19 16:21 03/03/19 16:22 DC Etomidate (Amidate) 20 mg STK-MED ONCE 02/28/19 06:59 02/28/19 07:00 DC Famotidine (Pepcid Vial) 20 mg Q12HR 03/02/19 21:00 03/08/19 08:27 20 MG Fentanyl Citrate 30 ml @ 0 mls/hr CONT PRN 03/05/19 04:45 03/08/19 12:50 4.95 MLS/HR Fentanyl Citrate (Fentanyl 2ml Vial) 25 mcg PRN Q30MIN PRN 02/28/19 07:45 02/28/19 09:42 DC Furosemide (Lasix) 40 mg DAILY08 03/07/19 08:00 03/08/19 08:27 40 MG Haloperidol Lactate (Haldol Inj) 5 mg PRN Q6HRS PRN 02/28/19 15:15 03/08/19 03:37 5 MG Heparin Sodium (Porcine) (Heparin Sodium) 5,000 unit Q8HRS 02/27/19 17:00 03/08/19 05:45 5,000 UNIT Info (Icu Electrolyte Protocol) 1 ea DAILY PRN 03/02/19 07:45 03/02/19 07:45 DC Insulin Glargine (Lantus) 12 units BID 03/05/19 09:00 03/08/19 08:34 12 UNITS Labetalol HCl (Normodyne Iv Push) 20 mg PRN Q2HR PRN 03/06/19 17:15 03/06/19 21:29 20 MG Linezolid/Dextrose 300 ml @ 300 mls/hr Q12HR 03/05/19 09:00 03/06/19 06:42 DC 03/05/19 21:24 300 MLS/HR Lorazepam (Ativan) 1 mg PRN Q30MIN PRN 02/28/19 07:45 02/28/19 09:42 DC Lorazepam 100 mg/ Sodium Chloride 100 ml @ 0 mls/hr CONT PRN 03/03/19 22:00 03/03/19 22:18 1 MLS/HR Meperidine HCl (Demerol) 12.5 mg PRN Q30MIN PRN 02/28/19 07:45 02/28/19 09:42 DC Meropenem 500 mg/ Sodium Chloride 50 ml @ 100 mls/hr Q6HRS 03/03/19 12:00 03/05/19 06:47 DC 03/05/19 05:33 100 MLS/HR Metoclopramide HCl (Reglan Vial) 10 mg Q6HRS 03/07/19 08:00 03/08/19 07:51 DC Metoprolol Tartrate (Lopressor Vial) 5 mg Q6HRS 03/08/19 12:00 03/08/19 12:22 5 MG Metronidazole 100 ml @ 100 mls/hr Q8HRS 03/05/19 06:45 03/08/19 05:45 100 MLS/HR Micafungin Sodium 100 mg/Dextrose 100 ml @ 100 mls/hr Q24H 02/28/19 12:00 03/05/19 06:47 DC 03/04/19 15:53 100 MLS/HR Midazolam HCl 100 ml @ 0 mls/hr CONT PRN 02/28/19 07:15 03/08/19 12:42 5 MLS/HR Morphine Sulfate (Morphine Sulfate) 2 mg PRN Q2HR PRN 02/27/19 16:45 02/28/19 16:44 DC Multi-Ingred Cream/Lotion/Oil/ Oint (Artificial Tears Eye Ointment) 1 jennifer PRN Q6HRS PRN 02/28/19 07:45 02/28/19 09:42 DC Nystatin (Mycostatin) 1 jennifer BID 03/06/19 09:00 03/08/19 08:28 1 JENNIFER Ondansetron HCl (Zofran) 4 mg PRN Q8HRS PRN 02/27/19 16:45 02/28/19 16:44 DC Perflutren Protein Type A Microsphe (Optison) 0.66 mg PRN 1X PRN 03/01/19 10:00 03/02/19 09:59 DC Propofol 100 ml @ 0 mls/hr CONT PRN 02/28/19 07:45 Rocuronium [place] (Zemuron) 50 mg STK-MED ONCE 02/28/19 07:00 02/28/19 09:42 DC Sodium Chloride 500 ml @ 500 mls/hr 1X ONCE 03/06/19 00:45 03/06/19 01:44 DC 03/06/19 00:49 500 MLS/HR Sodium Chloride (Normal Saline Flush) 3 ml QSHIFT PRN 02/28/19 07:45 Sodium Cl/Sod Bicarb/Potass Cl/ PEG (Golytely) 2,000 ml 1X ONCE 03/06/19 08:00 03/06/19 08:01 DC 03/06/19 09:33 2,000 ML Vecuronium [place] (Norcuron Bolus) 8 mg PRN Q4HRS PRN 02/28/19 15:15 03/04/19 04:47 8 MG Lab Laboratory Tests Test 03/07/19 20:10 03/07/19 21:00 03/08/19 05:00 03/08/19 08:00 Lactic Acid Level 1.4 mmol/L (0.4-2.0) Glucose (Fingerstick) 248 mg/dL (70-99) White Blood Count 8.7 x10^3/uL (4.0-11.0) Red Blood Count 4.13 x10^6/uL (4.30-5.70) Hemoglobin 12.4 g/dL (13.0-17.5) Hematocrit 39.0 % (39.0-53.0) Mean Corpuscular Volume 95 fL (79-100) Mean Corpuscular Hemoglobin 30 pg (25-35) Mean Corpuscular Hemoglobin Concent 32 g/dL (31-37) Red Cell Distribution Width 14.6 % (11.5-14.5) Platelet Count 215 x10^3/uL (140-400) Neutrophils (%) (Auto) 81 % (31-73) Lymphocytes (%) (Auto) 6 % (24-48) Monocytes (%) (Auto) 9 % (0-9) Eosinophils (%) (Auto) 3 % (0-3) Basophils (%) (Auto) 1 % (0-3) Neutrophils # (Auto) 7.1 x10^3uL (1.8-7.7) Lymphocytes # (Auto) 0.5 x10^3/uL (1.0-4.8) Monocytes # (Auto) 0.8 x10^3/uL (0.0-1.1) Eosinophils # (Auto) 0.3 x10^3/uL (0.0-0.7) Basophils # (Auto) 0.1 x10^3/uL (0.0-0.2) Sodium Level 144 mmol/L (136-145) Potassium Level 4.9 mmol/L (3.5-5.1) Chloride Level 107 mmol/L (98-107) Carbon Dioxide Level 32 mmol/L (21-32) Anion Gap 5 (6-14) Blood Urea Nitrogen 63 mg/dL (8-26) Creatinine 2.1 mg/dL (0.7-1.3) Estimated GFR (Cockcroft-Gault) 32.8 Glucose Level 286 mg/dL (70-99) Calcium Level 8.2 mg/dL (8.5-10.1) O2 Saturation 91 % (92-99) Arterial Blood pH 7.44 (7.35-7.45) Arterial Blood pCO2 at Patient Temp 47 mmHg (35-46) Arterial Blood pO2 at Patient Temp 61 mmHg (75-108) Arterial Blood HCO3 31 mmol/L (21-28) Arterial Blood Base Excess 6 mmol/L (-3-3) FiO2 80 Results All relevant outside records, renal labs, imaging studies, telemetry/EKG's were reviewed. GALO AMBRIZ MD Mar 08, 2019 13:53
--- NOTE | 2019-03-08 15:09 | PDOC ---
PULMONARY PROGRESS NOTES Subjective on vent, sedated, on fentanyl versed, small ett secretion, 80% FIO2/ 10 PEEP NO IMPROVEMENT IN OXYGENATION DESPITE DIURESIS Vitals Vital Signs Date Time Temp Pulse Resp B/P (MAP) Pulse Ox O2 Delivery O2 Flow Rate FiO2 03/08/19 12:50 94 4.0 03/08/19 12:37 Ventilator 03/08/19 12:22 75 118/62 03/08/19 12:00 99.0 22 99.0 Comments ros as mentioned as above discussed w rn, rt other sys otherwise neg on vent sedated HEENT: Other (nc at perrl nose clear orally intubated neck, no lad no thyromegaly) Lungs: Crackles, Other (decrease bs) Cardiovascular: S1, S2, Other (decrease bs) Abdomen: Soft, Non-tender, Other (OBESE no mass) Extremities: Other (venous stasis left, right BKA) Skin: Warm Labs Laboratory Tests Test 03/06/19 20:41 03/07/19 05:15 03/07/19 08:00 03/07/19 13:20 Glucose (Fingerstick) 185 mg/dL (70-99) White Blood Count 8.6 x10^3/uL (4.0-11.0) Red Blood Count 4.22 x10^6/uL (4.30-5.70) Hemoglobin 13.0 g/dL (13.0-17.5) Hematocrit 40.4 % (39.0-53.0) Mean Corpuscular Volume 96 fL (79-100) Mean Corpuscular Hemoglobin 31 pg (25-35) Mean Corpuscular Hemoglobin Concent 32 g/dL (31-37) Red Cell Distribution Width 14.4 % (11.5-14.5) Platelet Count 200 x10^3/uL (140-400) Neutrophils (%) (Auto) 78 % (31-73) Lymphocytes (%) (Auto) 9 % (24-48) Monocytes (%) (Auto) 10 % (0-9) Eosinophils (%) (Auto) 3 % (0-3) Basophils (%) (Auto) 0 % (0-3) Neutrophils # (Auto) 6.7 x10^3uL (1.8-7.7) Lymphocytes # (Auto) 0.7 x10^3/uL (1.0-4.8) Monocytes # (Auto) 0.8 x10^3/uL (0.0-1.1) Eosinophils # (Auto) 0.3 x10^3/uL (0.0-0.7) Basophils # (Auto) 0.0 x10^3/uL (0.0-0.2) Sodium Level 143 mmol/L (136-145) Potassium Level 4.7 mmol/L (3.5-5.1) Chloride Level 105 mmol/L (98-107) Carbon Dioxide Level 33 mmol/L (21-32) Anion Gap 5 (6-14) Blood Urea Nitrogen 51 mg/dL (8-26) Creatinine 2.1 mg/dL (0.7-1.3) Estimated GFR (Cockcroft-Gault) 32.8 BUN/Creatinine Ratio 24 (6-20) Glucose Level 202 mg/dL (70-99) Calcium Level 8.2 mg/dL (8.5-10.1) Total Bilirubin 0.4 mg/dL (0.2-1.0) Aspartate Amino Transf (AST/SGOT) 36 U/L (15-37) Alanine Aminotransferase (ALT/SGPT) 30 U/L (16-63) Alkaline Phosphatase 74 U/L (46-116) Total Protein 6.6 g/dL (6.4-8.2) Albumin 2.0 g/dL (3.4-5.0) Albumin/Globulin Ratio 0.4 (1.0-1.7) O2 Saturation 95 % (92-99) 91 % (92-99) Arterial Blood pH 7.31 (7.35-7.45) 7.43 (7.35-7.45) Arterial Blood pCO2 at Patient Temp 68 mmHg (35-46) 48 mmHg (35-46) Arterial Blood pO2 at Patient Temp 81 mmHg (75-108) 59 mmHg (75-108) Arterial Blood HCO3 33 mmol/L (21-28) 32 mmol/L (21-28) Arterial Blood Base Excess 5 mmol/L (-3-3) 6 mmol/L (-3-3) FiO2 80 75% Test 03/07/19 20:10 03/07/19 21:00 03/08/19 05:00 03/08/19 08:00 Lactic Acid Level 1.4 mmol/L (0.4-2.0) Glucose (Fingerstick) 248 mg/dL (70-99) White Blood Count 8.7 x10^3/uL (4.0-11.0) Red Blood Count 4.13 x10^6/uL (4.30-5.70) Hemoglobin 12.4 g/dL (13.0-17.5) Hematocrit 39.0 % (39.0-53.0) Mean Corpuscular Volume 95 fL (79-100) Mean Corpuscular Hemoglobin 30 pg (25-35) Mean Corpuscular Hemoglobin Concent 32 g/dL (31-37) Red Cell Distribution Width 14.6 % (11.5-14.5) Platelet Count 215 x10^3/uL (140-400) Neutrophils (%) (Auto) 81 % (31-73) Lymphocytes (%) (Auto) 6 % (24-48) Monocytes (%) (Auto) 9 % (0-9) Eosinophils (%) (Auto) 3 % (0-3) Basophils (%) (Auto) 1 % (0-3) Neutrophils # (Auto) 7.1 x10^3uL (1.8-7.7) Lymphocytes # (Auto) 0.5 x10^3/uL (1.0-4.8) Monocytes # (Auto) 0.8 x10^3/uL (0.0-1.1) Eosinophils # (Auto) 0.3 x10^3/uL (0.0-0.7) Basophils # (Auto) 0.1 x10^3/uL (0.0-0.2) Sodium Level 144 mmol/L (136-145) Potassium Level 4.9 mmol/L (3.5-5.1) Chloride Level 107 mmol/L (98-107) Carbon Dioxide Level 32 mmol/L (21-32) Anion Gap 5 (6-14) Blood Urea Nitrogen 63 mg/dL (8-26) Creatinine 2.1 mg/dL (0.7-1.3) Estimated GFR (Cockcroft-Gault) 32.8 Glucose Level 286 mg/dL (70-99) Calcium Level 8.2 mg/dL (8.5-10.1) O2 Saturation 91 % (92-99) Arterial Blood pH 7.44 (7.35-7.45) Arterial Blood pCO2 at Patient Temp 47 mmHg (35-46) Arterial Blood pO2 at Patient Temp 61 mmHg (75-108) Arterial Blood HCO3 31 mmol/L (21-28) Arterial Blood Base Excess 6 mmol/L (-3-3) FiO2 80 Laboratory Tests Test 03/07/19 20:10 03/07/19 21:00 03/08/19 05:00 03/08/19 08:00 Lactic Acid Level 1.4 mmol/L (0.4-2.0) Glucose (Fingerstick) 248 mg/dL (70-99) White Blood Count 8.7 x10^3/uL (4.0-11.0) Red Blood Count 4.13 x10^6/uL (4.30-5.70) Hemoglobin 12.4 g/dL (13.0-17.5) Hematocrit 39.0 % (39.0-53.0) Mean Corpuscular Volume 95 fL (79-100) Mean Corpuscular Hemoglobin 30 pg (25-35) Mean Corpuscular Hemoglobin Concent 32 g/dL (31-37) Red Cell Distribution Width 14.6 % (11.5-14.5) Platelet Count 215 x10^3/uL (140-400) Neutrophils (%) (Auto) 81 % (31-73) Lymphocytes (%) (Auto) 6 % (24-48) Monocytes (%) (Auto) 9 % (0-9) Eosinophils (%) (Auto) 3 % (0-3) Basophils (%) (Auto) 1 % (0-3) Neutrophils # (Auto) 7.1 x10^3uL (1.8-7.7) Lymphocytes # (Auto) 0.5 x10^3/uL (1.0-4.8) Monocytes # (Auto) 0.8 x10^3/uL (0.0-1.1) Eosinophils # (Auto) 0.3 x10^3/uL (0.0-0.7) Basophils # (Auto) 0.1 x10^3/uL (0.0-0.2) Sodium Level 144 mmol/L (136-145) Potassium Level 4.9 mmol/L (3.5-5.1) Chloride Level 107 mmol/L (98-107) Carbon Dioxide Level 32 mmol/L (21-32) Anion Gap 5 (6-14) Blood Urea Nitrogen 63 mg/dL (8-26) Creatinine 2.1 mg/dL (0.7-1.3) Estimated GFR (Cockcroft-Gault) 32.8 Glucose Level 286 mg/dL (70-99) Calcium Level 8.2 mg/dL (8.5-10.1) O2 Saturation 91 % (92-99) Arterial Blood pH 7.44 (7.35-7.45) Arterial Blood pCO2 at Patient Temp 47 mmHg (35-46) Arterial Blood pO2 at Patient Temp 61 mmHg (75-108) Arterial Blood HCO3 31 mmol/L (21-28) Arterial Blood Base Excess 6 mmol/L (-3-3) FiO2 80 Medications Active Scripts Medications Dose Route/Sig Max Daily Dose Days Date Category Proair Hfa Inhaler (Albuterol Sulfate) 8.5 Gm Hfa.aer.ad 1 Puff INH PRN Q6HRS PRN 02/27/19 Reported Lantus Solostar (Insulin Glargine,Hum.rec.anlog) 100 Unit/1 Ml Insuln.pen 20 Unit SQ QHS 02/27/19 Reported Humalog (Insulin Lispro) 100 Unit/1 Ml Cartridge 6 Unit SQ TIDWMEALS 02/27/19 Reported Doxazosin Mesylate 2 Mg Tablet 2 Mg PO DAILY 02/27/19 Reported Omeprazole 40 Mg Capsule.dr 40 Mg PO DAILY 02/27/19 Reported Amlodipine Besylate 10 Mg Tablet 10 Mg PO DAILY 02/27/19 Reported Atorvastatin Calcium 20 Mg Tablet 20 Mg PO DAILY 02/27/19 Reported Atenolol 50 Mg Tablet 50 Mg PO DAILY 02/27/19 Reported Losartan Potassium 100 Mg Tablet 100 Mg PO DAILY 02/27/19 Reported Aspirin 81 Mg Tab.chew 81 Mg PO DAILY 02/27/19 Reported Glyburide 5 Mg Tablet 1 Tab PO BID 11/09/16 Reported Comments CXR 03/08, reviewed, 1. Unchanged bilateral perihilar and basilar predominant heterogenous airspace opacities. possible worse 2. Unchanged likely small bilateral pleural effusions. ett ok Impression . 1. Acute hypoxemic /hypercapnic respiratory failure./ ARDS clinically 2. Suspected sepsis./ ARDS 3. In-house cardiopulmonary arrest. 4. Normal EF / mild Pulmonary HTN 5. Acute on chronic right-sided heart failure. 6. Possible pneumonia. 7. Morbid obesity. 8. Diabetes. 9. ANASARCA 10. Abnormal CXR <Conclusion>ECHO The left ventricular systolic function is normal. The ejection fraction is 60-65%. There is normal LV segmental wall motion. Transmitral Doppler flow pattern is Grade I-abnormal relaxation pattern. Trace tricuspid regurgitation. Estimated PAP 33-38 mmHg. There is no evidence of significant pericardial effusion. VENOUS 02/28 Impression: 1. There is no evidence of deep venous thrombosis from the bilateral common femoral to popliteal veins. 2. There is nonspecific right groin lymph node. Plan . cont vent support, setting reviewed, AC MODE 80% PEEP of 10/, titrate fio2 to keep sat 94%, abg reviewed . not much to change NOT READY FOR ANY WEANING ANITBX PER ID lasix pre nephro, monitor k, cr bilateral venous Dopplers of lower extremities.NEG DVT and GI prophylaxis. Follow Cardiology.rec Enteral nutrition Prognosis guarded Follow cxr elevate hob d/w RN/ RT ALEJANDRINA WILBURN MD Mar 08, 2019 15:09
[2019-03-08] MEDS: VECURONIUM BOLUS 10 MG VIAL. IV PRN (17:04)
[2019-03-08] MEDS ORDERED: FUROSEMIDE 40 MG/4 ML VIAL. IVP ONE (21:00)
[2019-03-08] MEDS: dilTIAZem INJ 125 MG in IV DEXTROSE 5% 100ML 100 ML IV PRN (21:11)
[2019-03-09] VITALS (24 sets, daily range): BP systolic 112–168; BP diastolic 54–82
[2019-03-09] MEDS: METOPROLOL TARTRATE 5 MG/5 ML VIAL. IVP SCH ×4 (00:07→17:21)
[2019-03-09] MEDS: CEFEPIME HCL IV Push 2 GM VIAL. IVP SCH ×3 (06:14→21:30)
[2019-03-09] MEDS: HEPARIN for SUB-Q USE 5,000 UNIT/ML VIAL. SQ SCH ×3 (06:16→21:32)
[2019-03-09] MEDS: IPRATRPIUM/ALBUTEROL 0.5/2.5MG 3 ML NEBU. NEB SCH ×4 (07:25→19:27)
[2019-03-09 07:50] LABS: BASE EXCESS ABG 4 mmol/L (-3-3); HCO3 ABG 29 mmol/L (21-28); PCO2 ABG 45 mmHg (35-46); PO2 ABG 58 mmHg (75-108); SAT O2 ABG 89 % (92-99)
[2019-03-09 07:51] LABS: FIO2 ABG 100
--- NOTE | 2019-03-09 08:25 | RAD ---
PORTABLE CHEST 1V History: respiratory failure Comparison: March 08, 2019 Findings: Single view of the chest is submitted. There is prominent airspace opacity of the bilateral hemithoraces right greater than left not convincingly changed. Hemidiaphragms remain obscured. There is endotracheal tube with tip about 3 cm from armani and enteric catheter coursing into the stomach not fully seen. There is again right internal jugular venous catheter with the tip near the cavoatrial junction. No pneumothorax is identified. Pericardial cardiac silhouette is again enlarged. Impression: 1. Radiographic findings are similar, prominent airspace opacity bilaterally which may be due to infiltrates/edema/ARDS. There are again at least small pleural effusions bilaterally. Electronically signed by: Taras Mendoza MD (03/09/2019 8:22 AM) [place] [id number]
--- NOTE | 2019-03-09 09:01 | PDOC ---
Infectious Disease Note Subjective Subjective Sedated Intubated Fevers TPN ROS ROS no n/v/d/ Vital Sign Vital Signs Vital Signs Date Time Temp Pulse Resp B/P (MAP) Pulse Ox O2 Delivery O2 Flow Rate FiO2 03/09/19 07:26 93 Ventilator 03/09/19 06:15 114 123/63 03/09/19 06:15 22 03/09/19 04:26 100.3 100.3 03/08/19 18:07 4.0 Physical Exam PHYSICAL EXAM GENERAL: Sedated and intubated. HEENT: PERRL, normal conj. ETT. OGT NECK: Supple. LUNGS: Decreased in bases HEART: S1, S2. ABDOMEN: Obese, decreased bowel sounds, no grimace or guarding to palpation GENITOURINARY: Coburn - He has 3+ scrotal swelling with less erythema. EXTREMITIES: No clubbing, cyanosis with 2 + edema. Generalized anasarca. RLE stump with chronic wound. No erythema/fluctuance/warmth SKIN: Warm to touch. 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 Labs Lab Laboratory Tests Test 03/08/19 21:15 03/09/19 07:25 Glucose (Fingerstick) 262 mg/dL (70-99) O2 Saturation 89 % (92-99) Arterial Blood pH 7.43 (7.35-7.45) Arterial Blood pCO2 at Patient Temp 45 mmHg (35-46) Arterial Blood pO2 at Patient Temp 58 mmHg (75-108) Arterial Blood HCO3 29 mmol/L (21-28) Arterial Blood Base Excess 4 mmol/L (-3-3) FiO2 100 Micro Microbiology 03/05/19 Blood Culture - Preliminary, Resulted NO GROWTH AFTER 3 DAYS 03/05/19 - Final, Complete 03/05/19 - Final, Complete 03/05/19 - Final, Complete 03/05/19 Gram Stain Evaluation - Final, Complete 03/05/19 Sputum Culture - Final, Complete 03/05/19 Sputum Result 1 - Final, Complete 03/02/19 Urine Culture - Final, Complete 03/02/19 Urine Culture Result 1 (LUCIO) - Final, Complete Objective Assessment Fever - ? Infection vs ileus vs drug reaction Flank rash - no Eosinophilia but ? drug - had been on micafungin so less likely yeast Tachycardia - s/p Bolus/Digoxin and Metoprolol Increased GI residuals - Has been on/off ? Ileus vs DM gastroparesis Acute respiratory failure, intubated, increased infiltrates today - ARDS Scrotal edema/cellulitis. Status post code. Fluid overload - mild increase Acute kidney injury Distant history of group B strep, Acinetobacter, Porphyromonas, plus anaerobes. Plan Plan of Care Rash present slightly per nursing evening 03/04 into 03/05. Cefepime/Flagyl began 03/05 post rash Nystatin Previously on Zyvox, Merrem and micafungin Would check other meds as potential for rash ? lasix, etc Urine eosinophils not observe May need additional imaging F/u labs/cults Supportive care Critically ill HEIDY RAMIREZ MD Mar 09, 2019 09:01
--- NOTE | 2019-03-09 09:04 | PDOC ---
SUBJECTIVE Subjective Pt still ventilated and sedated. Per nursing they are unable to wean O2 off and scrotal swelling is about the same with no concerns. OBJECTIVE Objective Physical Exam: General appearance: + Intubated and sedated. Head: Normocephalic, without obvious abnormality Lungs: Regular respirations with machine assistance. Abdomen: soft, non-tender. Bowel sounds normal. No masses, no organomegaly Pelvic: Buried phallus with swollen scrotum and no open areas noted , + [place] catheter in place draining clear yellow urine. Device in good working order. Vital Signs Vital Signs Date Time Temp Pulse Resp B/P (MAP) Pulse Ox O2 Delivery O2 Flow Rate FiO2 03/09/19 07:26 93 Ventilator 03/09/19 06:15 114 123/63 03/09/19 06:15 22 90 Ventilator 03/09/19 06:00 90 22 123/63 (83) 88 Ventilator 03/09/19 05:40 90 Ventilator 03/09/19 05:00 120 21 121/66 (84) 91 Ventilator 03/09/19 04:26 100.3 95 21 118/79 (92) 92 Ventilator 100.3 03/09/19 04:00 Mechanical Ventilator 03/09/19 03:05 91 Ventilator 03/09/19 03:00 89 21 118/72 (87) 91 Ventilator 03/09/19 02:00 81 21 116/76 (89) 92 Ventilator 03/09/19 01:04 21 92 Ventilator 03/09/19 01:00 78 21 116/79 (91) 92 Ventilator 03/09/19 00:07 87 126/81 03/09/19 00:07 22 93 Ventilator 03/09/19 00:00 100.1 84 22 126/81 (96) 92 Ventilator 100.1 03/09/19 00:00 Mechanical Ventilator 03/08/19 23:55 92 Ventilator 03/08/19 23:00 102 22 111/77 (88) 93 Ventilator 03/08/19 22:00 99 22 120/79 (93) 91 Ventilator 03/08/19 21:50 91 Ventilator 03/08/19 21:00 96 22 150/81 (104) 87 Ventilator 03/08/19 20:10 90 Ventilator 03/08/19 20:00 Mechanical Ventilator 03/08/19 20:00 100.8 102 22 113/61 (78) 91 Ventilator 100.8 03/08/19 19:00 90 22 140/65 (90) 91 Ventilator 03/08/19 18:07 4.0 03/08/19 18:00 108 03/08/19 17:37 93 4.0 03/08/19 17:31 90 Ventilator 03/08/19 17:00 118 22 113/61 (78) 93 Ventilator 03/08/19 16:00 Mechanical Ventilator 03/08/19 16:00 99.4 70 22 133/68 (89) 93 Ventilator 99.4 03/08/19 15:59 93 Ventilator 03/08/19 15:00 68 22 135/73 (93) 93 Ventilator 03/08/19 14:00 72 22 129/68 (88) 93 Ventilator 03/08/19 13:00 72 22 129/69 (89) 93 Ventilator 03/08/19 12:50 94 4.0 03/08/19 12:37 93 Ventilator 03/08/19 12:22 75 118/62 03/08/19 12:00 Mechanical Ventilator 03/08/19 12:00 99.0 69 22 131/76 (94) 94 Ventilator 99.0 03/08/19 11:00 69 22 113/61 (78) 93 Ventilator 03/08/19 10:17 92 Ventilator 03/08/19 10:00 71 22 120/64 (82) 92 Ventilator I & O Intake and Output 03/09/19 06:59 Intake Total 3408.4 ml Output Total 1300 ml Balance 2108.4 ml IV Total 768.4 ml Tube Feeding 2040 ml Other 600 ml Output Urine Total 1300 ml Gastric Drainage Total 0 ml PHYSICAL EXAM Physical Exam Physical Exam: General appearance: + Intubated and sedated. Head: Normocephalic, without obvious abnormality Lungs: Regular respirations with machine assistance. Abdomen: soft, non-tender. Bowel sounds normal. No masses, no organomegaly Pelvic: Buried phallus with swollen scrotum and no open areas noted , + Coburn catheter in place draining clear yellow urine. Device in good working order. ASSESSMENT/PLAN Assessment/Plan Scrotal swelling is about the same as it was on Saturday; nursing has no concerns for [employer]. Continue diaphoresis; scrotal swelling should continue to improve with this. Nursing to continue to maintain Coburn catheter. No acute concerns found on scrotal US. Will continue to follow peripherally Problems: (1) Edema COMMENT Lab Laboratory Tests Test 03/08/19 21:15 03/09/19 07:25 Glucose (Fingerstick) 262 mg/dL (70-99) O2 Saturation 89 % (92-99) Arterial Blood pH 7.43 (7.35-7.45) Arterial Blood pCO2 at Patient Temp 45 mmHg (35-46) Arterial Blood pO2 at Patient Temp 58 mmHg (75-108) Arterial Blood HCO3 29 mmol/L (21-28) Arterial Blood Base Excess 4 mmol/L (-3-3) FiO2 100 Problem Qualifiers (1) Edema: Edema type: unspecified Qualified Codes: R60.9 - Edema, unspecified CHRIS CHAVEZ [employer] Mar 09, 2019 09:04
[2019-03-09] MEDS: MIDAZOLAM 100mg/100ml NS BAG 100 ML IV PRN ×2 (09:08→15:00)
[2019-03-09] MEDS: FAMOTIDINE 20 MG/2 ML VIAL IVP SCH ×2 (09:27→21:30)
[2019-03-09] MEDS: NYSTATIN 100,000 UNIT/GM TOPICAL CREAM 15GM TUBE. TP SCH ×2 (09:27→21:31)
[2019-03-09] MEDS: FUROSEMIDE 40 MG/4 ML VIAL. IVP SCH (09:27)
[2019-03-09] MEDS: ASPIRIN CHEWABLE 81 MG TABLET. PO SCH (09:27)
[2019-03-09] MEDS: INSULIN GLARGINE 300 UNITS/3 ML INSULN.PEN. SQ SCH ×2 (09:29→21:33)
[2019-03-09] MEDS: dilTIAZem INJ 125 MG in IV DEXTROSE 5% 100ML 100 ML IV PRN (10:20)
[2019-03-09 11:18] LABS: CALCIUM 8.1 mg/dL (8.5-10.1); CREATININE 2.3 mg/dL (0.7-1.3); GFR 29.6
--- NOTE | 2019-03-09 12:07 | PDOC ---
SUBJECTIVE ROS Intubated OBJECTIVE Vital Signs Vital Signs Date Time Temp Pulse Resp B/P (MAP) Pulse Ox O2 Delivery O2 Flow Rate FiO2 03/09/19 09:09 93 4.0 03/09/19 07:26 Ventilator 03/09/19 06:15 114 123/63 03/09/19 06:15 22 03/09/19 04:26 100.3 100.3 I & 0 Intake and Output 03/09/19 06:59 Intake Total 3408.4 ml Output Total 1300 ml Balance 2108.4 ml IV Total 768.4 ml Tube Feeding 2040 ml Other 600 ml Output Urine Total 1300 ml Gastric Drainage Total 0 ml PHYSICAL EXAM Physical Exam GENERAL: Sedated and intubated. HEENT: ETT. OGT NECK: Supple. LUNGS: CTA ant HEART: S1, S2. ABDOMEN: Distended with decreased bowel sounds GENITOURINARY: [place] +, 2+ scrotal swelling EXTREMITIES: 1+ edema. RLE stump with chronic wound. SKIN: bilateral flank and Lt groin maculo papular rash DIAGNOSIS/ASSESSMENT Assessment & Plan LEONARD- Had improved to 1.5 Now back up to 2-2.3 , stable E-Lytes and acid base Monitor On IV Lasix to QD Acute hypoxemic /hypercapnic respiratory failure./ ARDS Anasarca- Improved Hypernatremia - Resolved Right Renal mass Fever - ? Infection vs ileus vs drug reaction Flank rash - no Eosinophilia Acute respiratory failure, intubated, increased infiltrates today - ARDS Scrotal edema/cellulitis- Improved urology consulted In hospital CP arrest Discussed with RN at bedside COMMENT/RELEVANT DATA Meds Current Medications Medications (Trade) Dose Ordered Sig/Lula Start Time Stop Time Status Last Admin Dose Admin Acetaminophen (Tylenol Supp) 650 mg PRN Q6HRS PRN 03/02/19 17:15 03/03/19 17:39 650 MG Acetaminophen (Tylenol) 650 mg PRN Q6HRS PRN 03/04/19 11:45 03/05/19 09:32 650 MG Albumin Human 100 ml @ 100 mls/hr 1X ONCE 03/03/19 08:30 03/03/19 09:29 DC 03/03/19 08:52 100 MLS/HR Albuterol/ Ipratropium (Duoneb) 3 ml RTQID 02/28/19 16:00 03/09/19 07:25 3 ML Aspirin (Aspirin) 300 mg DAILY 02/28/19 09:00 02/28/19 09:42 DC Aspirin (Children'S Aspirin) 81 mg [id number] 03/07/19 08:00 03/09/19 09:27 81 MG Atropine Sulfate (ATROPINE 0.5mg SYRINGE) 2 mg STK-MED ONCE 02/27/19 16:21 03/03/19 16:22 DC Calcium Chloride 1000 mg/Dextrose 60 ml @ 120 mls/hr 1X ONCE 02/28/19 10:30 02/28/19 10:59 DC 02/28/19 11:03 120 MLS/HR Cefepime HCl (Maxipime) 2 gm Q8HRS 03/05/19 06:45 03/09/19 06:14 2 GM Ceftriaxone Sodium (Rocephin) 1 gm Q24H 02/28/19 11:00 02/28/19 11:18 DC 02/28/19 11:03 1 GM Dextrose (Dextrose 50%-Water Syringe) 12.5 gm PRN Q15MIN PRN 02/27/19 16:45 Digoxin (Lanoxin) 250 mcg 1X ONCE 03/06/19 22:00 03/06/19 22:01 DC 03/06/19 22:00 250 MCG Diltiazem HCl 125 mg/Dextrose 125 ml @ 5 mls/hr CONT PRN 03/06/19 23:00 03/09/19 10:20 5 MLS/HR Dopamine HCl/ Dextrose (DOPamine 400MG/ 250ML PREMIX) 400 mg STK-MED ONCE 02/27/19 16:21 03/03/19 16:22 DC Etomidate (Amidate) 20 mg STK-MED ONCE 02/28/19 06:59 02/28/19 07:00 DC Famotidine (Pepcid Vial) 20 mg Q12HR 03/02/19 21:00 03/09/19 09:27 20 MG Fentanyl Citrate 30 ml @ 0 mls/hr CONT PRN 03/05/19 04:45 03/09/19 09:09 4.95 MLS/HR Fentanyl Citrate (Fentanyl 2ml Vial) 25 mcg PRN Q30MIN PRN 02/28/19 07:45 02/28/19 09:42 DC Furosemide (Lasix) 40 mg 1X ONCE 03/08/19 21:00 03/08/19 21:01 DC 03/08/19 21:21 40 MG Haloperidol Lactate (Haldol Inj) 5 mg PRN Q6HRS PRN 02/28/19 15:15 03/08/19 03:37 5 MG Heparin Sodium (Porcine) (Heparin Sodium) 5,000 unit Q8HRS 02/27/19 17:00 03/09/19 06:16 5,000 UNIT Info (Icu Electrolyte Protocol) 1 ea DAILY PRN 03/02/19 07:45 03/02/19 07:45 DC Insulin Glargine (Lantus) 12 units BID 03/05/19 09:00 03/09/19 09:29 12 UNITS Labetalol HCl (Normodyne Iv Push) 20 mg PRN Q2HR PRN 03/06/19 17:15 03/06/19 21:29 20 MG Linezolid/Dextrose 300 ml @ 300 mls/hr Q12HR 03/05/19 09:00 03/06/19 06:42 DC 03/05/19 21:24 300 MLS/HR Lorazepam (Ativan) 1 mg PRN Q30MIN PRN 02/28/19 07:45 02/28/19 09:42 DC Lorazepam 100 mg/ Sodium Chloride 100 ml @ 0 mls/hr CONT PRN 03/03/19 22:00 03/03/19 22:18 1 MLS/HR Meperidine HCl (Demerol) 12.5 mg PRN Q30MIN PRN 02/28/19 07:45 02/28/19 09:42 DC Meropenem 500 mg/ Sodium Chloride 50 ml @ 100 mls/hr Q6HRS 03/03/19 12:00 03/05/19 06:47 DC 03/05/19 05:33 100 MLS/HR Metoclopramide HCl (Reglan Vial) 10 mg Q6HRS 03/07/19 08:00 03/08/19 07:51 DC Metoprolol Tartrate (Lopressor Vial) 5 mg Q6HRS 03/08/19 12:00 03/09/19 06:15 5 MG Metronidazole 100 ml @ 100 mls/hr Q8HRS 03/05/19 06:45 03/09/19 06:16 100 MLS/HR Micafungin Sodium 100 mg/Dextrose 100 ml @ 100 mls/hr Q24H 02/28/19 12:00 03/05/19 06:47 DC 03/04/19 15:53 100 MLS/HR Midazolam HCl 100 ml @ 0 mls/hr CONT PRN 02/28/19 07:15 03/09/19 09:08 10 MLS/HR Morphine Sulfate (Morphine Sulfate) 2 mg PRN Q2HR PRN 02/27/19 16:45 02/28/19 16:44 DC Multi-Ingred Cream/Lotion/Oil/ Oint (Artificial Tears Eye Ointment) 1 jennifer PRN Q6HRS PRN 02/28/19 07:45 02/28/19 09:42 DC Nystatin (Mycostatin) 1 jeninfer BID 03/06/19 09:00 03/09/19 09:27 1 JENNIFER Ondansetron HCl (Zofran) 4 mg PRN Q8HRS PRN 02/27/19 16:45 02/28/19 16:44 DC Perflutren Protein Type A Microsphe (Optison) 0.66 mg PRN 1X PRN 03/01/19 10:00 03/02/19 09:59 DC Propofol 100 ml @ 0 mls/hr CONT PRN 02/28/19 07:45 Rocuronium [place] (Zemuron) 50 mg STK-MED ONCE 02/28/19 07:00 02/28/19 09:42 DC Sodium Chloride 500 ml @ 500 mls/hr 1X ONCE 03/06/19 00:45 03/06/19 01:44 DC 03/06/19 00:49 500 MLS/HR Sodium Chloride (Normal Saline Flush) 3 ml QSHIFT PRN 02/28/19 07:45 Sodium Cl/Sod Bicarb/Potass Cl/ PEG (Golytely) 2,000 ml 1X ONCE 03/06/19 08:00 03/06/19 08:01 DC 03/06/19 09:33 2,000 ML Vecuronium [place] (Norcuron Bolus) 8 mg PRN Q4HRS PRN 02/28/19 15:15 03/08/19 17:04 8 MG Lab Laboratory Tests Test 03/08/19 21:15 03/09/19 07:25 03/09/19 09:16 03/09/19 10:30 Glucose (Fingerstick) 262 mg/dL (70-99) 298 mg/dL (70-99) O2 Saturation 89 % (92-99) Arterial Blood pH 7.43 (7.35-7.45) Arterial Blood pCO2 at Patient Temp 45 mmHg (35-46) Arterial Blood pO2 at Patient Temp 58 mmHg (75-108) Arterial Blood HCO3 29 mmol/L (21-28) Arterial Blood Base Excess 4 mmol/L (-3-3) FiO2 100 Sodium Level 145 mmol/L (136-145) Potassium Level 5.0 mmol/L (3.5-5.1) Chloride Level 106 mmol/L (98-107) Carbon Dioxide Level 33 mmol/L (21-32) Anion Gap 6 (6-14) Blood Urea Nitrogen 75 mg/dL (8-26) Creatinine 2.3 mg/dL (0.7-1.3) Estimated GFR (Cockcroft-Gault) 29.6 Glucose Level 340 mg/dL (70-99) Calcium Level 8.1 mg/dL (8.5-10.1) Results All relevant outside records, renal labs, imaging studies, telemetry/EKG's were reviewed. Other CxR-- 1. Radiographic findings are similar, prominent airspace opacity bilaterally which may be due to infiltrates/edema/ARDS. There are again at least small pleural effusions bilaterally. GALO AMBRIZ MD Mar 09, 2019 12:07
--- NOTE | 2019-03-09 12:44 | PDOC ---
PULMONARY PROGRESS NOTES Subjective WORSENING OXYGENATION , AND CXR, NOW ON 100% FIO2/ 12 PEEP NO IMPROVEMENT IN OXYGENATION DESPITE DIURESIS Vitals Vital Signs Date Time Temp Pulse Resp B/P (MAP) Pulse Ox O2 Delivery O2 Flow Rate FiO2 03/09/19 12:00 99.7 73 22 120/64 (82) 92 Ventilator 99.7 03/09/19 09:09 4.0 Lungs: Other (decrease bs) Cardiovascular: S1, S2, Other (decrease bs) Abdomen: Soft, Non-tender, Other (OBESE no mass) Extremities: Other (venous stasis left, right BKA) Skin: Warm Labs Laboratory Tests Test 03/07/19 13:20 03/07/19 20:10 03/07/19 21:00 03/08/19 05:00 O2 Saturation 91 % (92-99) Arterial Blood pH 7.43 (7.35-7.45) Arterial Blood pCO2 at Patient Temp 48 mmHg (35-46) Arterial Blood pO2 at Patient Temp 59 mmHg (75-108) Arterial Blood HCO3 32 mmol/L (21-28) Arterial Blood Base Excess 6 mmol/L (-3-3) FiO2 75% Lactic Acid Level 1.4 mmol/L (0.4-2.0) Glucose (Fingerstick) 248 mg/dL (70-99) White Blood Count 8.7 x10^3/uL (4.0-11.0) Red Blood Count 4.13 x10^6/uL (4.30-5.70) Hemoglobin 12.4 g/dL (13.0-17.5) Hematocrit 39.0 % (39.0-53.0) Mean Corpuscular Volume 95 fL (79-100) Mean Corpuscular Hemoglobin 30 pg (25-35) Mean Corpuscular Hemoglobin Concent 32 g/dL (31-37) Red Cell Distribution Width 14.6 % (11.5-14.5) Platelet Count 215 x10^3/uL (140-400) Neutrophils (%) (Auto) 81 % (31-73) Lymphocytes (%) (Auto) 6 % (24-48) Monocytes (%) (Auto) 9 % (0-9) Eosinophils (%) (Auto) 3 % (0-3) Basophils (%) (Auto) 1 % (0-3) Neutrophils # (Auto) 7.1 x10^3uL (1.8-7.7) Lymphocytes # (Auto) 0.5 x10^3/uL (1.0-4.8) Monocytes # (Auto) 0.8 x10^3/uL (0.0-1.1) Eosinophils # (Auto) 0.3 x10^3/uL (0.0-0.7) Basophils # (Auto) 0.1 x10^3/uL (0.0-0.2) Sodium Level 144 mmol/L (136-145) Potassium Level 4.9 mmol/L (3.5-5.1) Chloride Level 107 mmol/L (98-107) Carbon Dioxide Level 32 mmol/L (21-32) Anion Gap 5 (6-14) Blood Urea Nitrogen 63 mg/dL (8-26) Creatinine 2.1 mg/dL (0.7-1.3) Estimated GFR (Cockcroft-Gault) 32.8 Glucose Level 286 mg/dL (70-99) Calcium Level 8.2 mg/dL (8.5-10.1) Test 03/08/19 08:00 03/08/19 21:15 03/09/19 07:25 03/09/19 09:16 O2 Saturation 91 % (92-99) 89 % (92-99) Arterial Blood pH 7.44 (7.35-7.45) 7.43 (7.35-7.45) Arterial Blood pCO2 at Patient Temp 47 mmHg (35-46) 45 mmHg (35-46) Arterial Blood pO2 at Patient Temp 61 mmHg (75-108) 58 mmHg (75-108) Arterial Blood HCO3 31 mmol/L (21-28) 29 mmol/L (21-28) Arterial Blood Base Excess 6 mmol/L (-3-3) 4 mmol/L (-3-3) FiO2 80 100 Glucose (Fingerstick) 262 mg/dL (70-99) 298 mg/dL (70-99) Test 03/09/19 10:30 Sodium Level 145 mmol/L (136-145) Potassium Level 5.0 mmol/L (3.5-5.1) Chloride Level 106 mmol/L (98-107) Carbon Dioxide Level 33 mmol/L (21-32) Anion Gap 6 (6-14) Blood Urea Nitrogen 75 mg/dL (8-26) Creatinine 2.3 mg/dL (0.7-1.3) Estimated GFR (Cockcroft-Gault) 29.6 Glucose Level 340 mg/dL (70-99) Calcium Level 8.1 mg/dL (8.5-10.1) Laboratory Tests Test 03/08/19 21:15 03/09/19 07:25 03/09/19 09:16 03/09/19 10:30 Glucose (Fingerstick) 262 mg/dL (70-99) 298 mg/dL (70-99) O2 Saturation 89 % (92-99) Arterial Blood pH 7.43 (7.35-7.45) Arterial Blood pCO2 at Patient Temp 45 mmHg (35-46) Arterial Blood pO2 at Patient Temp 58 mmHg (75-108) Arterial Blood HCO3 29 mmol/L (21-28) Arterial Blood Base Excess 4 mmol/L (-3-3) FiO2 100 Sodium Level 145 mmol/L (136-145) Potassium Level 5.0 mmol/L (3.5-5.1) Chloride Level 106 mmol/L (98-107) Carbon Dioxide Level 33 mmol/L (21-32) Anion Gap 6 (6-14) Blood Urea Nitrogen 75 mg/dL (8-26) Creatinine 2.3 mg/dL (0.7-1.3) Estimated GFR (Cockcroft-Gault) 29.6 Glucose Level 340 mg/dL (70-99) Calcium Level 8.1 mg/dL (8.5-10.1) Medications Active Scripts Medications Dose Route/Sig Max Daily Dose Days Date Category Proair Hfa Inhaler (Albuterol Sulfate) 8.5 Gm Hfa.aer.ad 1 Puff INH PRN Q6HRS PRN 02/27/19 Reported Lantus Solostar (Insulin Glargine,Hum.rec.anlog) 100 Unit/1 Ml Insuln.pen 20 Unit SQ QHS 02/27/19 Reported Humalog (Insulin Lispro) 100 Unit/1 Ml Cartridge 6 Unit SQ TIDWMEALS 02/27/19 Reported Doxazosin Mesylate 2 Mg Tablet 2 Mg PO DAILY 02/27/19 Reported Omeprazole 40 Mg Capsule.dr 40 Mg PO DAILY 02/27/19 Reported Amlodipine Besylate 10 Mg Tablet 10 Mg PO DAILY 02/27/19 Reported Atorvastatin Calcium 20 Mg Tablet 20 Mg PO DAILY 02/27/19 Reported Atenolol 50 Mg Tablet 50 Mg PO DAILY 02/27/19 Reported Losartan Potassium 100 Mg Tablet 100 Mg PO DAILY 02/27/19 Reported Aspirin 81 Mg Tab.chew 81 Mg PO DAILY 02/27/19 Reported Glyburide 5 Mg Tablet 1 Tab PO BID 11/09/16 Reported Comments CXR 03/09, reviewed, 1. Unchanged bilateral perihilar and basilar predominant heterogenous airspace opacities. possible worse Impression . 1. Acute hypoxemic /hypercapnic respiratory failure./ ARDS clinically/ WORSENING HYPOXIA 2. sepsis./ ARDS 3. In-house cardiopulmonary arrest. 4. Normal EF / mild Pulmonary HTN 5. Acute on chronic right-sided heart failure. 6. Possible pneumonia. 7. Morbid obesity. 8. Diabetes. 9. ANASARCA 10. Abnormal CXR <Conclusion>ECHO The left ventricular systolic function is normal. The ejection fraction is 60-65%. There is normal LV segmental wall motion. Transmitral Doppler flow pattern is Grade I-abnormal relaxation pattern. Trace tricuspid regurgitation. Estimated PAP 33-38 mmHg. There is no evidence of significant pericardial effusion. VENOUS 02/28 Impression: 1. There is no evidence of deep venous thrombosis from the bilateral common femoral to popliteal veins. 2. There is nonspecific right groin lymph node. Plan . cont vent support, setting reviewed, AC MODE 110% PEEP of 12/, titrate fio2 to keep sat 90%, abg reviewed . not much to change Discussed in detail with sister. She understands grim prognosis. Agree with DNR ANITBX PER ID lasix pre nephro, increase bun/cr. consider decrease dose bilateral venous Dopplers of lower extremities.NEG DVT and GI prophylaxis. Follow Cardiology.rec Enteral nutrition Follow cxr elevate hob d/w RN/ RT / Sister DNR now cct 30 min ALEJANDRINA WILBURN MD Mar 09, 2019 12:44
--- NOTE | 2019-03-09 13:37 | NUR ---
SS following for discharge planning. Clinical updates phoned and faxed to [facility] ; [phone]. Pt is accepted at [facility] pending insurance authorization. SS will continue to follow for discharge planning.
[2019-03-09] MEDS: HALOPERIDOL LACTATE 5 MG/ML VIAL. IVP PRN (14:07)
--- NOTE | 2019-03-09 14:09 | PDOC ---
PROGRESS NOTES Chief Complaint Chief Complaint Assessment/Plan ACUTE RESP ARREST POST CODE ON FLOOR 02/27 Acute respiratory failure secondary to congestive heart failure, most probably acute on chronic diastolic. s/p intubation. Myocardial infarction ruled out. Hypernatremia secondary to severe dehydration will need to provide water flushes in order to correct electrolyte disturbance. High residuals on tube feedings no evidence of obstructive pattern on x ray done 03/05/2019 3 weeks of bilateral general scrotal swelling and tenderness. +dyspnea, abd swelling, leg swelling. POA, Dm2 obesity, extreme, morbid hx RLE BKA RLE stump with chronic wound. No erythema/warmth left foot nail onychomycosis needs attention when more clinically stable Acute renal failure ATN Renal CONSULT 3.1-1.8 chronic venous insuff left lower leg nonspecific perinephric stranding with slight asymmetric stranding adjacent to the left renal pelvis. Findings may be due to chronic kidney disease, though ascending urinary tract infection is not excluded. Bilateral lower lobe consolidation concerning for multifocal pneumonia aspiration not excluded. Right renal hypodensity measuring 2.5 cm is incompletely evaluated on noncontrast examination. Follow-up MRI or CT abdomen and pelvis renal protocol with contrast is recommended for further evaluation. Anasarca. bilateral external iliac lymphadenopathy, may be reactive, though follow-up CT abdomen and pelvis in 3 months is recommended to assess for stability/resolution. Nonobstructive left nephrolithiasis. Coronary artery calcifications. The left ventricular systolic function is normal.ejection fraction is 60-65% .normal LV segmental wall motion. Transmitral Doppler flow pattern is Grade I-abnormal relaxation pattern. Trace tricuspid regurgitation. Estimated PAP 33-38 mmHg. PLAN continue with supportive measures constipation resolved ventilatory support still requiring quite a bit of oxygen and peep in order to support him, guarded prognosis. follow recommendations from senior talent management consultant. UROLOGY CONSULT reviewed no intervention needed except for elevation and diuresis ID CONSULT continue wtih antibiotic as per ID ECHO noted critically stable. History of Present Illness History of Present Illness Patient with no acute events reported overnight.less distention after several bowel movements yesterday, continues to require mechanical ventilation, Vitals Vitals Vital Signs Date Time Temp Pulse Resp B/P (MAP) Pulse Ox O2 Delivery O2 Flow Rate FiO2 03/09/19 12:48 78 118/54 03/09/19 12:40 93 Ventilator 03/09/19 12:00 99.7 22 99.7 03/09/19 09:09 4.0 Physical Exam Physical Exam GENERAL: Sedated and intubated. HEENT: PERRL, normal conj. ETT. OGT NECK: Supple. LUNGS: Decreased in bases HEART: S1, S2. ABDOMEN: Obese, decreased bowel sounds, no grimace or guarding to palpation GENITOURINARY: [place] - He has 3+ scrotal swelling with less erythema. EXTREMITIES: No clubbing, cyanosis with 2 + edema. Generalized anasarca. RLE stump with chronic wound. No erythema/fluctuance/warmth SKIN: Warm to touch. 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 groin CORPORATE LAW SPECIALIST: Sedated RIJ General: Other (intubated.) Heart: Regular rate Lungs: Other (decrease bs) Abdomen: Normal bowel sounds Extremities: No cyanosis, Other (ANASARCA) Skin: Other (scale, lower leg ) Labs LABS Laboratory Tests Test 03/08/19 21:15 03/09/19 07:25 03/09/19 09:16 03/09/19 10:30 Glucose (Fingerstick) 262 mg/dL (70-99) 298 mg/dL (70-99) O2 Saturation 89 % (92-99) Arterial Blood pH 7.43 (7.35-7.45) Arterial Blood pCO2 at Patient Temp 45 mmHg (35-46) Arterial Blood pO2 at Patient Temp 58 mmHg (75-108) Arterial Blood HCO3 29 mmol/L (21-28) Arterial Blood Base Excess 4 mmol/L (-3-3) FiO2 100 Sodium Level 145 mmol/L (136-145) Potassium Level 5.0 mmol/L (3.5-5.1) Chloride Level 106 mmol/L (98-107) Carbon Dioxide Level 33 mmol/L (21-32) Anion Gap 6 (6-14) Blood Urea Nitrogen 75 mg/dL (8-26) Creatinine 2.3 mg/dL (0.7-1.3) Estimated GFR (Cockcroft-Gault) 29.6 Glucose Level 340 mg/dL (70-99) Calcium Level 8.1 mg/dL (8.5-10.1) Assessment and Plan Assessmemt and Plan Problems Medical Problems: (1) Acute renal failure Status: Acute (2) Edema Status: Acute (3) Shortness of breath Status: Acute Comment Review of Relevant I have reviewed the following items pascual (where applicable) has been applied. Labs Laboratory Tests Test 03/07/19 20:10 03/07/19 21:00 03/08/19 05:00 03/08/19 08:00 Lactic Acid Level 1.4 mmol/L (0.4-2.0) Glucose (Fingerstick) 248 mg/dL (70-99) White Blood Count 8.7 x10^3/uL (4.0-11.0) Red Blood Count 4.13 x10^6/uL (4.30-5.70) Hemoglobin 12.4 g/dL (13.0-17.5) Hematocrit 39.0 % (39.0-53.0) Mean Corpuscular Volume 95 fL (79-100) Mean Corpuscular Hemoglobin 30 pg (25-35) Mean Corpuscular Hemoglobin Concent 32 g/dL (31-37) Red Cell Distribution Width 14.6 % (11.5-14.5) Platelet Count 215 x10^3/uL (140-400) Neutrophils (%) (Auto) 81 % (31-73) Lymphocytes (%) (Auto) 6 % (24-48) Monocytes (%) (Auto) 9 % (0-9) Eosinophils (%) (Auto) 3 % (0-3) Basophils (%) (Auto) 1 % (0-3) Neutrophils # (Auto) 7.1 x10^3uL (1.8-7.7) Lymphocytes # (Auto) 0.5 x10^3/uL (1.0-4.8) Monocytes # (Auto) 0.8 x10^3/uL (0.0-1.1) Eosinophils # (Auto) 0.3 x10^3/uL (0.0-0.7) Basophils # (Auto) 0.1 x10^3/uL (0.0-0.2) Sodium Level 144 mmol/L (136-145) Potassium Level 4.9 mmol/L (3.5-5.1) Chloride Level 107 mmol/L (98-107) Carbon Dioxide Level 32 mmol/L (21-32) Anion Gap 5 (6-14) Blood Urea Nitrogen 63 mg/dL (8-26) Creatinine 2.1 mg/dL (0.7-1.3) Estimated GFR (Cockcroft-Gault) 32.8 Glucose Level 286 mg/dL (70-99) Calcium Level 8.2 mg/dL (8.5-10.1) O2 Saturation 91 % (92-99) Arterial Blood pH 7.44 (7.35-7.45) Arterial Blood pCO2 at Patient Temp 47 mmHg (35-46) Arterial Blood pO2 at Patient Temp 61 mmHg (75-108) Arterial Blood HCO3 31 mmol/L (21-28) Arterial Blood Base Excess 6 mmol/L (-3-3) FiO2 80 Test 03/08/19 21:15 03/09/19 07:25 03/09/19 09:16 03/09/19 10:30 Glucose (Fingerstick) 262 mg/dL (70-99) 298 mg/dL (70-99) O2 Saturation 89 % (92-99) Arterial Blood pH 7.43 (7.35-7.45) Arterial Blood pCO2 at Patient Temp 45 mmHg (35-46) Arterial Blood pO2 at Patient Temp 58 mmHg (75-108) Arterial Blood HCO3 29 mmol/L (21-28) Arterial Blood Base Excess 4 mmol/L (-3-3) FiO2 100 Sodium Level 145 mmol/L (136-145) Potassium Level 5.0 mmol/L (3.5-5.1) Chloride Level 106 mmol/L (98-107) Carbon Dioxide Level 33 mmol/L (21-32) Anion Gap 6 (6-14) Blood Urea Nitrogen 75 mg/dL (8-26) Creatinine 2.3 mg/dL (0.7-1.3) Estimated GFR (Cockcroft-Gault) 29.6 Glucose Level 340 mg/dL (70-99) Calcium Level 8.1 mg/dL (8.5-10.1) Laboratory Tests Test 03/08/19 21:15 03/09/19 07:25 03/09/19 09:16 03/09/19 10:30 Glucose (Fingerstick) 262 mg/dL (70-99) 298 mg/dL (70-99) O2 Saturation 89 % (92-99) Arterial Blood pH 7.43 (7.35-7.45) Arterial Blood pCO2 at Patient Temp 45 mmHg (35-46) Arterial Blood pO2 at Patient Temp 58 mmHg (75-108) Arterial Blood HCO3 29 mmol/L (21-28) Arterial Blood Base Excess 4 mmol/L (-3-3) FiO2 100 Sodium Level 145 mmol/L (136-145) Potassium Level 5.0 mmol/L (3.5-5.1) Chloride Level 106 mmol/L (98-107) Carbon Dioxide Level 33 mmol/L (21-32) Anion Gap 6 (6-14) Blood Urea Nitrogen 75 mg/dL (8-26) Creatinine 2.3 mg/dL (0.7-1.3) Estimated GFR (Cockcroft-Gault) 29.6 Glucose Level 340 mg/dL (70-99) Calcium Level 8.1 mg/dL (8.5-10.1) Microbiology 03/05/19 Blood Culture - Preliminary, Resulted NO GROWTH AFTER 4 DAYS 03/05/19 - Final, Complete 03/05/19 - Final, Complete 03/05/19 - Final, Complete 03/05/19 Gram Stain Evaluation - Final, Complete 03/05/19 Sputum Culture - Final, Complete 03/05/19 Sputum Result 1 - Final, Complete 03/02/19 Urine Culture - Final, Complete 03/02/19 Urine Culture Result 1 (LUCIO) - Final, Complete Medications Current Medications Ondansetron HCl (Zofran) 4 mg PRN Q8HRS PRN IV NAUSEA/VOMITING; Start 02/27/19 at 16:45; Stop 02/28/19 at 16:44; Status DC Morphine Sulfate (Morphine Sulfate) 2 mg PRN Q2HR PRN IV PAIN; Start 02/27/19 at 16:45; Stop 02/28/19 at 16:44; Status DC Acetaminophen (Tylenol) 650 mg PRN Q4HRS PRN PO FEVER Last administered on 02/27at 21:06; Start 02/27/19 at 16:45; Stop 02/28/19 at 16:44; Status DC Dextrose (Dextrose 50%-Water Syringe) 12.5 gm PRN Q15MIN PRN IV SEE COMMENTS; Start 02/27/19 at 16:45 Heparin Sodium (Porcine) (Heparin Sodium) 5,000 unit Q8HRS SQ Last administered on 03/09/19at 06:16; Start 02/27/19 at 17:00 Lorazepam (Ativan) 1 mg PRN Q8HRS PRN IV ANXIETY / AGITATION Last administered on 03/08/19at 03:37; Start 02/28/19 at 02:45 Etomidate (Amidate) 20 mg STK-MED ONCE IV ; Start 02/28/19 at 06:59; Stop at 07:00; Status DC Rocuronium [place] (Zemuron) 50 mg STK-MED ONCE .ROUTE ; Start 02/28/19 at 07:00 ; Stop 02/28/19 at 09:42; Status DC Dopamine HCl/ Dextrose 250 ml @ 12.266 mls/ hr CONT PRN IV SEE I/O RECORD Last administered on 02/28/19at 08:06; Start 02/28/19 at 07:15 Fentanyl Citrate 30 ml @ 0 mls/hr CONT PRN IV SEE PROTOCOL; Start 02/28/19 at 07:15; Stop 02/28/19 at 07:59; Status DC Propofol 100 ml @ 0 mls/hr CONT PRN IV SEE PROTOCOL; Start 02/28/19 at 07:15; Stop 02/28/19 at 07:59; Status DC Fentanyl Citrate (Fentanyl 2ml Vial) 25 mcg PRN Q1HR PRN IV SEE COMMENTS; Start 02/28/19 at 07:15; Stop 02/28/19 at 07:59; Status DC Fentanyl Citrate (Fentanyl 2ml Vial) 50 mcg PRN Q1HR PRN IV SEE COMMENTS; Start 02/28/19 at 07:15; Stop 02/28/19 at 07:59; Status DC Midazolam HCl 100 ml @ 0 mls/hr CONT PRN IV SEE PROTOCOL Last administered on at 09:08; Start 02/28/19 at 07:15 Sodium Chloride 1,000 ml @ 1,000 mls/hr Q1H IV Last administered on 02/28/19at 07:32; Start 02/28/19 at 07:32; Stop 02/28/19 at 10:09; Status DC Fentanyl Citrate (Fentanyl 2ml Vial) 25 mcg PRN Q30MIN PRN IV see comments; Start 02/28/19 at 07:45; Stop 02/28/19 at 09:42; Status DC Lorazepam (Ativan) 1 mg PRN Q30MIN PRN IV SEDATION; Start 02/28/19 at 07:45; Stop 02/28/19 at 09:42; Status DC Fentanyl Citrate 30 ml @ 2.5 mls/hr CONT PRN PRN IV SEE I/O RECORD Last administered on 03/05/19at 03:44; Start 02/28/19 at 07:45; Stop 03/05/19 at 04:40; Status DC Propofol 100 ml @ 0 mls/hr CONT PRN IV SEE I/O RECORD; Start 02/28/19 at 07:45 Vecuronium [place] (Norcuron Bolus) 10 mg PRN Q30MIN PRN IV SHIVERING; Start at 07:45; Stop 02/28/19 at 09:42; Status DC Meperidine HCl (Demerol) 12.5 mg PRN Q30MIN PRN IV SHIVERING; Start 02/28/19 at 07:45; Stop 02/28/19 at 09:42; Status DC Multi-Ingred Cream/Lotion/Oil/ Oint (Artificial Tears Eye Ointment) 1 jennifer PRN Q6HRS PRN OU 0.5 INCH FOR DRY EYE; Start 02/28/19 at 07:45; Stop 02/28/19 at 09 :42; Status DC Famotidine (Pepcid Vial) 20 mg BID IVP Last administered on 02/28/19at 11:03; Start 02/28/19 at 09:00; Stop 02/28/19 at 14:25; Status DC Aspirin (Aspirin) 300 mg DAILY VT ; Start 02/28/19 at 09:00; Stop 02/28/19 at 09 :42; Status DC Sodium Chloride (Normal Saline Flush) 3 ml QSHIFT PRN IV AFTER MEDS AND BLOOD DRAWS; Start 02/28/19 at 07:45 Acetaminophen (Tylenol) 650 mg Q6HRS NG ; Start 02/28/19 at 12:00; Stop at 12:00; Status DC Acetaminophen (Tylenol Supp) 650 mg PRN Q6HRS PRN VT MILD PAIN / TEMP; Start at 07:45; Stop 03/01/19 at 07:45; Status DC Acetaminophen (Tylenol) 650 mg PRN Q6HRS PRN NG MILD PAIN / TEMP; Start at 07:45; Stop 03/01/19 at 07:45; Status DC Info (Icu Electrolyte Protocol) 1 ea DAILY PRN MC PER PROTOCOL; Start 03/02/19 at 07:45; Stop 03/02/19 at 07:45; Status DC Furosemide (Lasix) 60 mg 1X ONCE IVP Last administered on 02/28/19at 08:30; Start 02/28/19 at 08:30; Stop 02/28/19 at 08:31; Status DC Ceftriaxone Sodium (Rocephin) 1 gm Q24H IVP Last administered on 02/28/19at 11: 03; Start 02/28/19 at 11:00; Stop 02/28/19 at 11:18; Status DC Calcium Chloride 1000 mg/Dextrose 60 ml @ 120 mls/hr 1X ONCE IV Last administered on 02/28/19at 11:03; Start 02/28/19 at 10:30; Stop 02/28/19 at 10:59 ; Status DC Meropenem 500 mg/ Sodium Chloride 50 ml @ 100 mls/hr Q8HRS IV Last administered on 03/03/19at 06:24; Start 02/28/19 at 14:00; Stop 03/03/19 at 07:04; Status DC Linezolid/Dextrose 300 ml @ 300 mls/hr Q12HR IV Last administered on 03/03/19at 20:00; Start 02/28/19 at 11:30; Stop 03/04/19 at 08:55; Status DC Micafungin Sodium 100 mg/Dextrose 100 ml @ 100 mls/hr Q24H IV Last administered on 03/04/19at 15:53; Start 02/28/19 at 12:00; Stop 03/05/19 at 06:47; Status DC Furosemide (Lasix) 40 mg BID92 IVP Last administered on 03/02/19at 14:06; Start 02/28/19 at 14:00; Stop 03/02/19 at 17:02; Status DC Famotidine (Pepcid Vial) 20 mg QHS IVP Last administered on 03/01/19at 21:24; Start 02/28/19 at 21:00; Stop 03/02/19 at 10:07; Status DC Albuterol/ Ipratropium (Duoneb) 3 ml RTQID NEB Last administered on 03/09/19 12 :35; Start 02/28/19 at 16:00 Haloperidol Lactate (Haldol Inj) 5 mg PRN Q6HRS PRN IVP AGITATION 2ND CHOICE Last administered on 03/08/19 03:37; Start 02/28/19 at 15:15 Vecuronium [place] (Norcuron Bolus) 8 mg PRN Q4HRS PRN IV MUSCLE SPASMS Last administered on 03/08/19 17:04; Start 02/28/19 at 15:15 Perflutren Protein Type A Microsphe (Optison) 0.66 mg PRN 1X PRN IV SEE COMMENTS; Start 03/01/19 at 10:00; Stop 03/02/19 at 09:59; Status DC Digoxin (Lanoxin) 125 mcg 1X STAT IV ; Start 03/01/19 at 15:34; Stop 03/01/19 at 16:00; Status DC Sodium Chloride 500 ml @ 500 mls/hr 1X ONCE IV Last administered on at 18:46; Start 03/01/19 at 18:45; Stop 03/01/19 at 19:44; Status DC Famotidine (Pepcid Vial) 20 mg Q12HR IVP Last administered on 03/09/19 09:27; Start 03/02/19 at 21:00 Furosemide (Lasix) 40 mg DAILY IVP Last administered on 03/04/19 09:52; Start 03/03/19 at 09:00; Stop 03/04/19 at 12:13; Status DC Acetaminophen (Tylenol Supp) 650 mg PRN Q6HRS PRN [place] MILD PAIN / TEMP Last administered on 03/03/19 17:39; Start 03/02/19 at 17:15 Meropenem 500 mg/ Sodium Chloride 50 ml @ 100 mls/hr Q6HRS IV Last administered on 03/05/19 05:33; Start 03/03/19 at 12:00; Stop 03/05/19 at 06:47; Status DC Albumin Human 100 ml @ 100 mls/hr 1X ONCE IV Last administered on 03/03/19 08 :52; Start 03/03/19 at 08:30; Stop 03/03/19 at 09:29; Status DC Atropine Sulfate (ATROPINE 0.5mg SYRINGE) 2 mg STK-MED ONCE .ROUTE ; Start 02/27 at 16:21; Stop 03/03/19 at 16:22; Status DC Dopamine HCl/ Dextrose (DOPamine 400MG/ 250ML PREMIX) 400 mg STK-MED ONCE IV ; Start 02/27/19 at 16:21; Stop 03/03/19 at 16:22; Status DC Furosemide (Lasix) 40 mg 1X ONCE IVP Last administered on 03/03/19 18:46; Start 03/03/19 at 18:45; Stop 03/03/19 at 18:46; Status DC Lorazepam 100 mg/ Sodium Chloride 100 ml @ 0 mls/hr CONT PRN IV SEE PROTOCOL Last administered on 03/03/19 22:18; Start 03/03/19 at 22:00 Acetaminophen (Tylenol) 650 mg PRN Q6HRS PRN PEG MILD PAIN / TEMP Last administered on 03/05/19 09:32; Start 03/04/19 at 11:45 Furosemide (Lasix) 40 mg BID92 IVP Last administered on 03/06/19 08:38; Start 03/04/19 at 14:00; Stop 03/06/19 at 13:30; Status DC Fentanyl Citrate 30 ml @ 0 mls/hr CONT PRN IV SEE PROTOCOL Last administered on 03/09/19 09:09; Start 03/05/19 at 04:45 Cefepime HCl (Maxipime) 2 gm Q8HRS IVP Last administered on 03/09/19 06:14; Start 03/05/19 at 06:45 Metronidazole 100 ml @ 100 mls/hr Q8HRS IV Last administered on 03/09/19 06:16 ; Start 03/05/19 at 06:45 Linezolid/Dextrose 300 ml @ 300 mls/hr Q12HR IV Last administered on 03/05/19 21:24; Start 03/05/19 at 09:00; Stop 03/06/19 at 06:42; Status DC Metoclopramide HCl (Reglan Vial) 10 mg QIDACHS IV Last administered on 20:43; Start 03/05/19 at 11:30; Stop 03/07/19 at 07:37; Status DC Insulin Glargine (Lantus) 12 units BID SQ Last administered on 03/09/19 09:29; Start 03/05/19 at 09:00 Digoxin (Lanoxin) 500 mcg 1X ONCE IV Last administered on 03/06/19 00:48; Start 03/06/19 at 00:45; Stop 03/06/19 at 00:46; Status DC Metoprolol Tartrate (Lopressor Vial) 5 mg 1X ONCE IVP Last administered on 03/06 00:53; Start 03/06/19 at 00:45; Stop 03/06/19 at 00:46; Status DC Sodium Chloride 500 ml @ 500 mls/hr 1X ONCE IV Last administered on 03/06/19 00:49; Start 03/06/19 at 00:45; Stop 03/06/19 at 01:44; Status DC Nystatin (Mycostatin) 1 jennifer BID TP Last administered on 03/09/19 09:27; Start 03/06/19 at 09:00 Sodium Cl/Sod Bicarb/Potass Cl/ PEG (Golytely) 2,000 ml 1X ONCE PO Last administered on 03/06/19 09:33; Start 03/06/19 at 08:00; Stop 03/06/19 at 08:01; Status DC Furosemide (Lasix) 40 mg DAILY08 IVP Last administered on 03/09/19 09:27; Start 03/07/19 at 08:00; Stop 03/09/19 at 12:45; Status DC Metoprolol Tartrate (Lopressor Vial) 10 mg 1X ONCE IVP Last administered on 16:08; Start 03/06/19 at 15:15; Stop 03/06/19 at 15:16; Status DC Metoprolol Tartrate (Lopressor Vial) 5 mg Q6HRS IVP Last administered on 17:03; Start 03/06/19 at 18:00; Stop 03/07/19 at 18:27; Status DC Aspirin (Children'S Aspirin) 81 mg 1X ONCE PO Last administered on 03/06/19 18 :18; Start 03/06/19 at 17:00; Stop 03/06/19 at 17:01; Status DC Aspirin (Children'S Aspirin) 81 mg DAILYWBKFT PO Last administered on 03/09/19 09:27; Start 03/07/19 at 08:00 Labetalol HCl (Normodyne Iv Push) 20 mg PRN Q2HR PRN IVP HYPERTENSION, SEE COMMENTS Last administered on 03/06/19at 21:29; Start 03/06/19 at 17:15 Digoxin (Lanoxin) 250 mcg 1X ONCE IV Last administered on 03/06/19at 22:00; Start 03/06/19 at 22:00; Stop 03/06/19 at 22:01; Status DC Diltiazem HCl 125 mg/Dextrose 125 ml @ 5 mls/hr CONT PRN IV SEE I/O RECORD Last administered on 03/09/19at 10:20; Start 03/06/19 at 23:00 Metoclopramide HCl (Reglan Vial) 10 mg Q6HRS IV ; Start 03/07/19 at 08:00; Stop 03/08/19 at 07:51; Status DC Metoprolol Tartrate (Lopressor Vial) 5 mg Q6HRS IVP Last administered on at 12:48; Start 03/08/19 at 12:00 Furosemide (Lasix) 40 mg 1X ONCE IVP Last administered on 03/08/19at 21:21; Start 03/08/19 at 21:00; Stop 03/08/19 at 21:01; Status DC Furosemide (Lasix) 20 mg DAILY08 IVP ; Start 03/10/19 at 08:00; Stop 03/10/19 at 08:00; Status DC Furosemide (Lasix) 20 mg DAILY08 IVP ; Start 03/10/19 at 08:00 Active Scripts Active Reported Proair Hfa Inhaler (Albuterol Sulfate) 8.5 Gm Hfa.aer.ad 1 Puff INH PRN Q6HRS PRN Lantus Solostar (Insulin Glargine,Hum.rec.anlog) 100 Unit/1 Ml Insuln.pen 20 Unit SQ QHS Humalog (Insulin Lispro) 100 Unit/1 Ml Cartridge 6 Unit SQ TIDWMEALS Doxazosin Mesylate 2 Mg Tablet 2 Mg PO DAILY Omeprazole 40 Mg Capsule.dr 40 Mg PO DAILY Amlodipine Besylate 10 Mg Tablet 10 Mg PO DAILY Atorvastatin Calcium 20 Mg Tablet 20 Mg PO DAILY Atenolol 50 Mg Tablet 50 Mg PO DAILY Losartan Potassium 100 Mg Tablet 100 Mg PO DAILY Aspirin 81 Mg Tab.chew 81 Mg PO DAILY Glyburide 5 Mg Tablet 1 Tab PO BID Vitals/I & O Vital Sign - Last 24 Hours 03/08/19 03/08/19 03/08/19 03/08/19 15:00 15:59 16:00 16:00 Temp 99.4 99.4 Pulse 68 70 Resp 22 22 B/P (MAP) 135/73 (93) 133/68 (89) Pulse Ox 93 93 93 O2 Delivery Ventilator Ventilator Ventilator Mechanical Ventilator 03/08/19 03/08/19 03/08/19 03/08/19 17:00 17:31 17:37 18:00 Pulse 118 108 Resp 22 B/P (MAP) 113/61 (78) Pulse Ox 93 90 93 O2 Delivery Ventilator Ventilator O2 Flow Rate 4.0 03/08/19 03/08/19 03/08/19 03/08/19 18:07 19:00 20:00 20:00 Temp 100.8 100.8 Pulse 90 102 Resp 22 22 B/P (MAP) 140/65 (90) 113/61 (78) Pulse Ox 91 91 O2 Delivery Ventilator Ventilator Mechanical Ventilator O2 Flow Rate 4.0 03/08/19 03/08/19 03/08/19 03/08/19 20:10 21:00 21:50 22:00 Pulse 96 99 Resp 22 22 B/P (MAP) 150/81 (104) 120/79 (93) Pulse Ox 90 87 91 91 O2 Delivery Ventilator Ventilator Ventilator Ventilator 03/08/19 03/08/19 03/09/19 03/09/19 23:00 23:55 00:00 00:00 Temp 100.1 100.1 Pulse 102 84 Resp 22 22 B/P (MAP) 111/77 (88) 126/81 (96) Pulse Ox 93 92 92 O2 Delivery Ventilator Ventilator Mechanical Ventilator Ventilator 03/09/19 03/09/19 03/09/19 03/09/19 00:07 00:07 01:00 01:04 Pulse 87 78 Resp 22 21 21 B/P (MAP) 126/81 116/79 (91) Pulse Ox 93 92 92 O2 Delivery Ventilator Ventilator Ventilator 03/09/19 03/09/19 03/09/19 03/09/19 02:00 03:00 03:05 04:00 Pulse 81 89 Resp 21 21 B/P (MAP) 116/76 (89) 118/72 (87) Pulse Ox 92 91 91 O2 Delivery Ventilator Ventilator Ventilator Mechanical Ventilator 03/09/19 03/09/19 03/09/19 03/09/19 04:26 05:00 05:40 06:00 Temp 100.3 100.3 Pulse 95 120 90 Resp 22 B/P (MAP) 118/79 (92) 121/66 (84) 123/63 (83) Pulse Ox 92 91 90 88 O2 Delivery Ventilator Ventilator Ventilator Ventilator 03/09/19 03/09/19 03/09/19 03/09/19 06:15 06:15 07:00 07:26 Pulse 114 76 Resp B/P (MAP) 123/63 128/82 (97) Pulse Ox 90 88 93 O2 Delivery Ventilator Ventilator Ventilator 03/09/19 03/09/19 03/09/19 03/09/19 08:00 08:00 09:00 09:09 Temp 100.5 100.5 Pulse 78 82 Resp B/P (MAP) 119/68 (85) 168/69 (102) Pulse Ox 94 92 93 O2 Delivery Ventilator Mechanical Ventilator Ventilator O2 Flow Rate 4.0 03/09/19 03/09/19 03/09/19 03/09/19 10:00 11:00 12:00 12:00 Temp 99.7 99.7 Pulse 76 74 73 Resp B/P (MAP) 120/60 (80) 112/60 (77) 120/64 (82) Pulse Ox 90 91 92 O2 Delivery Ventilator Ventilator Mechanical Ventilator Ventilator 03/09/19 03/09/19 12:40 12:48 Pulse 78 B/P (MAP) 118/54 Pulse Ox 93 O2 Delivery Ventilator Intake and Output 03/08/19 03/08/19 03/09/19 15:00 23:00 07:00 Intake Total 500 ml 1711 ml 1197.4 ml Output Total 775 ml 300 ml 225 ml Balance -275 ml 1411 ml 972.4 ml MICHAEL BURRIS MD Mar 09, 2019 14:09
--- NOTE | 2019-03-09 17:11 | NUR ---
PRE PICC INSERTION NOTE Allergies and reactions NKDA INR 1.2 BUN 75 Cr 2.3 Platelets 215 Blood culture done YES blood culture results NEG Order Verified YES Consent signed YES Previous PICC placement UNKNOWN Past Medical/Surgical history and current diagnosis reviewed YES Patient Medical /Surgical History Related to PICC line placement Arrhythmias Diabetes History of acute/chronic renal failure Infectious Disease consult Past central line or venous access device placement UNKNOWN Problems breathing lying flat Renal consult Septicemia/Bacteremia Special considerations for PICC line placement Anticoagulation therapy Dermatitis Infections Severe peripheral edema PICC placement indication Caustic medication class drug usage, 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
[2019-03-09] MEDS ORDERED: DEXTROSE 50% 25 GM / 50ML DISP.SYRIN. IV PRN (17:15)
--- NOTE | 2019-03-09 17:15 | NUR ---
PICC INSERTION NOTE Procedure: Following complete explanation of the PICC procedure including the indications, risks, and potential complications, informed consent was obtained. The possibility for infection was discussed along with signs, symptoms, and prevention. All the [STAFF/FAMILY] questions were answered. Written and verbal patient education was provided. Hand hygiene performed. Standardized central line checklist was utilized. The patient was placed in the supine position, the arm was prepped with chlorhexidine and patient draped with maximum sterile barrier. [0.5] mL 1% lidocaine was infiltrated into the skin to provide local anesthesia. A thorough assessment of [RIGHT ] upper extremity completed. Using real-time ultrasound guidance and standardized micro puncture set, the [RIGHT BASILIC] vein was punctured and a peel away sheath was placed using the modified Seldinger technique. A tip location device was used to ensure adequate catheter placement. The catheter was secured using a securement device and an antimicrobial patch was applied directly on the insertion site followed by a transparent dressing. All ports withdraw blood and flush without resistance. Patient tolerated the procedure without apparent complication(s). [5 MOHAWK TRIPLE] Lumen Power PICC placement successful and uncomplicated. Placement verified by EKG tip confirmation system and/or chest x-ray. Tip located in the [SVC] Complications: [NONE]
[2019-03-09] MEDS: INSULIN LISPRO 300 UNITS/3 ML INSULN.PEN. SQ SCH (17:45)
[2019-03-10] VITALS (24 sets, daily range): BP systolic 132–186; BP diastolic 65–98
[2019-03-10] MEDS: INSULIN LISPRO 300 UNITS/3 ML INSULN.PEN. SQ SCH ×5 (00:28→20:51)
[2019-03-10] MEDS: METOPROLOL TARTRATE 5 MG/5 ML VIAL. IVP SCH ×5 (00:28→23:41)
[2019-03-10] MEDS: MIDAZOLAM 100mg/100ml NS BAG 100 ML IV PRN ×3 (05:12→22:22)
[2019-03-10] MEDS: CEFEPIME HCL IV Push 2 GM VIAL. IVP SCH ×2 (05:43→20:49)
[2019-03-10] MEDS: HEPARIN for SUB-Q USE 5,000 UNIT/ML VIAL. SQ SCH ×3 (05:45→22:20)
[2019-03-10] MEDS: IPRATRPIUM/ALBUTEROL 0.5/2.5MG 3 ML NEBU. NEB SCH ×4 (07:19→20:05)
[2019-03-10 07:32] LABS: BASE EXCESS ABG 5 mmol/L (-3-3); HCO3 ABG 32 mmol/L (21-28); PCO2 ABG 55 mmHg (35-46); PO2 ABG 66 mmHg (75-108); SAT O2 ABG 92 % (92-99)
[2019-03-10 07:38] LABS: FIO2 ABG 100
[2019-03-10] MEDS ORDERED: FUROSEMIDE 40 MG/4 ML VIAL. IVP SCH (08:00)
[2019-03-10] MEDS: ASPIRIN CHEWABLE 81 MG TABLET. PO SCH (08:01)
[2019-03-10] MEDS: NYSTATIN 100,000 UNIT/GM TOPICAL CREAM 15GM TUBE. TP SCH ×2 (08:02→20:53)
[2019-03-10] MEDS: FAMOTIDINE 20 MG/2 ML VIAL IVP SCH ×2 (08:02→20:48)
[2019-03-10] MEDS: FUROSEMIDE 20 MG/2 ML VIAL. IVP SCH (08:02)
[2019-03-10] MEDS: INSULIN GLARGINE 300 UNITS/3 ML INSULN.PEN. SQ SCH ×2 (08:04→20:52)
--- NOTE | 2019-03-10 08:22 | RAD ---
Chest radiograph 03/10/2019 9:00 AM INDICATION: Respiratory failure COMPARISON: March 09, 2019 TECHNIQUE: Portable upright frontal view of the chest is provided. FINDINGS: The cardiomediastinal silhouette is similar in appearance. Endotracheal tube and nasogastric tube are in similar position. Right IJ central venous catheter has been removed. Right upper extremity PICC is identified with the distal tip projecting over the superior vena cava. There is a small left and moderate right pleural effusion with adjacent compressive atelectasis versus infiltrate. There is moderate pulmonary vascular congestion, not significantly changed. No pneumothorax. IMPRESSION: Interval removal of right IJ central venous catheter and placement of a right upper extremity PICC with the suspected distal tip projecting over the superior vena cava (the distal margin is difficult to confirm due to overlying cardiac and pulmonary opacities). Constellation of findings is suggestive of congestive heart failure without significant interval change. Electronically signed by: Krista Davison MD (03/10/2019 8:20 AM) [id number]
--- NOTE | 2019-03-10 08:29 | PDOC ---
PULMONARY PROGRESS NOTES Subjective ON AC MODE SEDATED Vitals Vital Signs Date Time Temp Pulse Resp B/P (MAP) Pulse Ox O2 Delivery O2 Flow Rate FiO2 03/10/19 07:34 Ventilator 03/10/19 07:19 95 03/10/19 07:01 22 03/10/19 07:00 70 147/69 (95) 03/10/19 04:00 98.8 98.8 03/09/19 15:01 4.0 Lungs: Other (decrease bs) Cardiovascular: S1, S2, Other (decrease bs) Abdomen: Soft, Non-tender, Other (OBESE no mass) Extremities: Other (venous stasis left, right BKA) Skin: Warm Labs Laboratory Tests Test 03/08/19 21:15 03/09/19 07:25 03/09/19 09:16 03/09/19 10:30 Glucose (Fingerstick) 262 mg/dL (70-99) 298 mg/dL (70-99) O2 Saturation 89 % (92-99) Arterial Blood pH 7.43 (7.35-7.45) Arterial Blood pCO2 at Patient Temp 45 mmHg (35-46) Arterial Blood pO2 at Patient Temp 58 mmHg (75-108) Arterial Blood HCO3 29 mmol/L (21-28) Arterial Blood Base Excess 4 mmol/L (-3-3) FiO2 100 Sodium Level 145 mmol/L (136-145) Potassium Level 5.0 mmol/L (3.5-5.1) Chloride Level 106 mmol/L (98-107) Carbon Dioxide Level 33 mmol/L (21-32) Anion Gap 6 (6-14) Blood Urea Nitrogen 75 mg/dL (8-26) Creatinine 2.3 mg/dL (0.7-1.3) Estimated GFR (Cockcroft-Gault) 29.6 Glucose Level 340 mg/dL (70-99) Calcium Level 8.1 mg/dL (8.5-10.1) Test 03/09/19 17:29 03/10/19 00:24 03/10/19 05:47 03/10/19 07:30 Glucose (Fingerstick) 390 mg/dL (70-99) 339 mg/dL (70-99) 358 mg/dL (70-99) O2 Saturation 92 % (92-99) Arterial Blood pH 7.38 (7.35-7.45) Arterial Blood pCO2 at Patient Temp 55 mmHg (35-46) Arterial Blood pO2 at Patient Temp 66 mmHg (75-108) Arterial Blood HCO3 32 mmol/L (21-28) Arterial Blood Base Excess 5 mmol/L (-3-3) FiO2 100 Laboratory Tests Test 03/09/19 09:16 03/09/19 10:30 03/09/19 17:29 03/10/19 00:24 Glucose (Fingerstick) 298 mg/dL (70-99) 390 mg/dL (70-99) 339 mg/dL (70-99) Sodium Level 145 mmol/L (136-145) Potassium Level 5.0 mmol/L (3.5-5.1) Chloride Level 106 mmol/L (98-107) Carbon Dioxide Level 33 mmol/L (21-32) Anion Gap 6 (6-14) Blood Urea Nitrogen 75 mg/dL (8-26) Creatinine 2.3 mg/dL (0.7-1.3) Estimated GFR (Cockcroft-Gault) 29.6 Glucose Level 340 mg/dL (70-99) Calcium Level 8.1 mg/dL (8.5-10.1) Test 03/10/19 05:47 03/10/19 07:30 Glucose (Fingerstick) 358 mg/dL (70-99) O2 Saturation 92 % (92-99) Arterial Blood pH 7.38 (7.35-7.45) Arterial Blood pCO2 at Patient Temp 55 mmHg (35-46) Arterial Blood pO2 at Patient Temp 66 mmHg (75-108) Arterial Blood HCO3 32 mmol/L (21-28) Arterial Blood Base Excess 5 mmol/L (-3-3) FiO2 100 Medications Active Scripts Medications Dose Route/Sig Max Daily Dose Days Date Category Proair Hfa Inhaler (Albuterol Sulfate) 8.5 Gm Hfa.aer.ad 1 Puff INH PRN Q6HRS PRN 02/27/19 Reported Lantus Solostar (Insulin Glargine,Hum.rec.anlog) 100 Unit/1 Ml Insuln.pen 20 Unit SQ QHS 02/27/19 Reported Humalog (Insulin Lispro) 100 Unit/1 Ml Cartridge 6 Unit SQ TIDWMEALS 02/27/19 Reported Doxazosin Mesylate 2 Mg Tablet 2 Mg PO DAILY 02/27/19 Reported Omeprazole 40 Mg Capsule.dr 40 Mg PO DAILY 02/27/19 Reported Amlodipine Besylate 10 Mg Tablet 10 Mg PO DAILY 02/27/19 Reported Atorvastatin Calcium 20 Mg Tablet 20 Mg PO DAILY 02/27/19 Reported Atenolol 50 Mg Tablet 50 Mg PO DAILY 02/27/19 Reported Losartan Potassium 100 Mg Tablet 100 Mg PO DAILY 02/27/19 Reported Aspirin 81 Mg Tab.chew 81 Mg PO DAILY 02/27/19 Reported Glyburide 5 Mg Tablet 1 Tab PO BID 11/09/16 Reported Comments CXR REVIEWED Impression . 1. Acute hypoxemic /hypercapnic respiratory failure./ ARDS 2. sepsis./ ARDS 3. In-house cardiopulmonary arrest. 4. Normal EF / mild Pulmonary HTN 5. Acute on chronic right-sided heart failure. 6. Possible pneumonia. 7. Morbid obesity. 8. Diabetes. 9. ANASARCA 10. Abnormal CXR <Conclusion>ECHO The left ventricular systolic function is normal. The ejection fraction is 60-65%. There is normal LV segmental wall motion. Transmitral Doppler flow pattern is Grade I-abnormal relaxation pattern. Trace tricuspid regurgitation. Estimated PAP 33-38 mmHg. There is no evidence of significant pericardial effusion. VENOUS 02/28 Impression: 1. There is no evidence of deep venous thrombosis from the bilateral common femoral to popliteal veins. 2. There is nonspecific right groin lymph node. Plan . AC MODE TITRATE PEEP AND FI02 ANITBX PER ID lasix pre nephro, bilateral venous Dopplers of lower extremities.NEG DVT and GI prophylaxis. Follow Cardiology.rec Enteral nutrition Follow cxr elevate hob DNR now cct 30 min MAGO NI MD Mar 10, 2019 08:29
--- NOTE | 2019-03-10 08:29 | PDOC ---
Infectious Disease Note Subjective Subjective Sedated Intubated TPN ROS ROS no n/v/d/ Vital Sign Vital Signs Vital Signs Date Time Temp Pulse Resp B/P (MAP) Pulse Ox O2 Delivery O2 Flow Rate FiO2 03/10/19 07:34 Ventilator 03/10/19 07:19 95 03/10/19 07:01 22 03/10/19 07:00 70 147/69 (95) 03/10/19 04:00 98.8 98.8 03/09/19 15:01 4.0 Physical Exam PHYSICAL EXAM GENERAL: Sedated and intubated. HEENT: PERRL, normal conj. ETT. OGT NECK: Supple. LUNGS: Decreased in bases HEART: S1, S2. ABDOMEN: Obese, decreased bowel sounds, no grimace or guarding to palpation GENITOURINARY: [place] - He has 3+ scrotal swelling with less erythema. EXTREMITIES: No clubbing, cyanosis with 2 + edema. Generalized anasarca. RLE stump with chronic wound. No erythema/fluctuance/warmth SKIN: Warm to touch. 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 groin TORCH CUTTER: Sedated RIJ Labs Lab Laboratory Tests Test 03/09/19 09:16 03/09/19 10:30 03/09/19 17:29 03/10/19 00:24 Glucose (Fingerstick) 298 mg/dL (70-99) 390 mg/dL (70-99) 339 mg/dL (70-99) Sodium Level 145 mmol/L (136-145) Potassium Level 5.0 mmol/L (3.5-5.1) Chloride Level 106 mmol/L (98-107) Carbon Dioxide Level 33 mmol/L (21-32) Anion Gap 6 (6-14) Blood Urea Nitrogen 75 mg/dL (8-26) Creatinine 2.3 mg/dL (0.7-1.3) Estimated GFR (Cockcroft-Gault) 29.6 Glucose Level 340 mg/dL (70-99) Calcium Level 8.1 mg/dL (8.5-10.1) Test 03/10/19 05:47 03/10/19 07:30 Glucose (Fingerstick) 358 mg/dL (70-99) O2 Saturation 92 % (92-99) Arterial Blood pH 7.38 (7.35-7.45) Arterial Blood pCO2 at Patient Temp 55 mmHg (35-46) Arterial Blood pO2 at Patient Temp 66 mmHg (75-108) Arterial Blood HCO3 32 mmol/L (21-28) Arterial Blood Base Excess 5 mmol/L (-3-3) FiO2 100 Micro Microbiology 03/05/19 Blood Culture - Preliminary, Resulted NO GROWTH AFTER 3 DAYS 03/05/19 - Final, Complete 03/05/19 - Final, Complete 03/05/19 - Final, Complete 03/05/19 Gram Stain Evaluation - Final, Complete 03/05/19 Sputum Culture - Final, Complete 03/05/19 Sputum Result 1 - Final, Complete 03/02/19 Urine Culture - Final, Complete 03/02/19 Urine Culture Result 1 (LUCIO) - Final, Complete Objective Assessment Fever - improved Flank rash - no Eosinophilia but ? drug - had been on micafungin so less likely yeast Tachycardia - s/p Bolus/Digoxin and Metoprolol Increased GI residuals - Has been on/off ? Ileus vs DM gastroparesis Acute respiratory failure, intubated, increased infiltrates today - ARDS Scrotal edema/cellulitis. Status post code. Fluid overload - mild increase Acute kidney injury Distant history of group B strep, Acinetobacter, Porphyromonas, plus anaerobes. Plan Plan of Care Rash present slightly per nursing evening 03/04 into 03/05. change dose Cefepime/ d/c Flagyl Nystatin Previously on Zyvox, Merrem and micafungin Would check other meds as potential for rash ? lasix, etc Urine eosinophils not observe May need additional imaging F/u labs/cults Supportive care Critically ill HEIDY RAMIREZ MD Mar 10, 2019 08:29
--- NOTE | 2019-03-10 10:44 | PDOC ---
PROGRESS NOTES Chief Complaint Chief Complaint Assessment/Plan ACUTE RESP ARREST POST CODE ON FLOOR 02/27 Acute respiratory failure secondary to congestive heart failure, most probably acute on chronic diastolic. s/p intubation. Myocardial infarction ruled out. Hypernatremia secondary to severe dehydration will need to provide water flushes in order to correct electrolyte disturbance. High residuals on tube feedings no evidence of obstructive pattern on x ray done 03/05/2019 3 weeks of bilateral general scrotal swelling and tenderness. +dyspnea, abd swelling, leg swelling. POA, Dm2 obesity, extreme, morbid hx RLE BKA RLE stump with chronic wound. No erythema/warmth left foot nail onychomycosis needs attention when more clinically stable Acute renal failure ATN Renal CONSULT 3.1-1.8 chronic venous insuff left lower leg nonspecific perinephric stranding with slight asymmetric stranding adjacent to the left renal pelvis. Findings may be due to chronic kidney disease, though ascending urinary tract infection is not excluded. Bilateral lower lobe consolidation concerning for multifocal pneumonia aspiration not excluded. Right renal hypodensity measuring 2.5 cm is incompletely evaluated on noncontrast examination. Follow-up MRI or CT abdomen and pelvis renal protocol with contrast is recommended for further evaluation. Anasarca. bilateral external iliac lymphadenopathy, may be reactive, though follow-up CT abdomen and pelvis in 3 months is recommended to assess for stability/resolution. Nonobstructive left nephrolithiasis. Coronary artery calcifications. The left ventricular systolic function is normal.ejection fraction is 60-65% .normal LV segmental wall motion. Transmitral Doppler flow pattern is Grade I-abnormal relaxation pattern. Trace tricuspid regurgitation. Estimated PAP 33-38 mmHg. PLAN continue with supportive measures ventilatory support still requiring [id number]% oxygen and over 10 of PEEP follow recommendations from otm consultant. UROLOGY CONSULT reviewed no intervention needed except for elevation and diuresis ID CONSULT continue wtih antibiotic as per ID ECHO noted critically stable. History of Present Illness History of Present Illness Patient with no acute events reported overnight. contneus to be vent dependant, discussed with sister at bedside. reassurance provided Vitals Vitals Vital Signs Date Time Temp Pulse Resp B/P (MAP) Pulse Ox O2 Delivery O2 Flow Rate FiO2 03/10/19 10:00 72 22 137/70 (92) 95 Ventilator 03/10/19 08:00 98.3 98.3 03/09/19 15:01 4.0 Physical Exam Physical Exam GENERAL: Sedated and intubated. HEENT: PERRL, normal conj. ETT. OGT NECK: Supple. LUNGS: Decreased in bases HEART: S1, S2. ABDOMEN: Obese, decreased bowel sounds, no grimace or guarding to palpation GENITOURINARY: [place] - He has 3+ scrotal swelling with less erythema. EXTREMITIES: No clubbing, cyanosis with 2 + edema. Generalized anasarca. RLE stump with chronic wound. No erythema/fluctuance/warmth SKIN: Warm to touch. 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 groin HOSPITAL INTERN: Sedated RIJ General: Other (intubated.) Heart: Regular rate Lungs: Other (decrease bs) Abdomen: Normal bowel sounds Extremities: No cyanosis, Other (ANASARCA) Skin: Other (scale, lower leg ) Labs LABS Laboratory Tests Test 03/09/19 17:29 03/10/19 00:24 03/10/19 05:47 03/10/19 07:30 Glucose (Fingerstick) 390 mg/dL (70-99) 339 mg/dL (70-99) 358 mg/dL (70-99) O2 Saturation 92 % (92-99) Arterial Blood pH 7.38 (7.35-7.45) Arterial Blood pCO2 at Patient Temp 55 mmHg (35-46) Arterial Blood pO2 at Patient Temp 66 mmHg (75-108) Arterial Blood HCO3 32 mmol/L (21-28) Arterial Blood Base Excess 5 mmol/L (-3-3) FiO2 100 Assessment and Plan Assessmemt and Plan Problems Medical Problems: (1) Acute renal failure Status: Acute (2) Edema Status: Acute (3) Shortness of breath Status: Acute Comment Review of Relevant I have reviewed the following items pascual (where applicable) has been applied. Labs Laboratory Tests Test 03/08/19 21:15 03/09/19 07:25 03/09/19 09:16 03/09/19 10:30 Glucose (Fingerstick) 262 mg/dL (70-99) 298 mg/dL (70-99) O2 Saturation 89 % (92-99) Arterial Blood pH 7.43 (7.35-7.45) Arterial Blood pCO2 at Patient Temp 45 mmHg (35-46) Arterial Blood pO2 at Patient Temp 58 mmHg (75-108) Arterial Blood HCO3 29 mmol/L (21-28) Arterial Blood Base Excess 4 mmol/L (-3-3) FiO2 100 Sodium Level 145 mmol/L (136-145) Potassium Level 5.0 mmol/L (3.5-5.1) Chloride Level 106 mmol/L (98-107) Carbon Dioxide Level 33 mmol/L (21-32) Anion Gap 6 (6-14) Blood Urea Nitrogen 75 mg/dL (8-26) Creatinine 2.3 mg/dL (0.7-1.3) Estimated GFR (Cockcroft-Gault) 29.6 Glucose Level 340 mg/dL (70-99) Calcium Level 8.1 mg/dL (8.5-10.1) Test 03/09/19 17:29 03/10/19 00:24 03/10/19 05:47 03/10/19 07:30 Glucose (Fingerstick) 390 mg/dL (70-99) 339 mg/dL (70-99) 358 mg/dL (70-99) O2 Saturation 92 % (92-99) Arterial Blood pH 7.38 (7.35-7.45) Arterial Blood pCO2 at Patient Temp 55 mmHg (35-46) Arterial Blood pO2 at Patient Temp 66 mmHg (75-108) Arterial Blood HCO3 32 mmol/L (21-28) Arterial Blood Base Excess 5 mmol/L (-3-3) FiO2 100 Laboratory Tests Test 03/09/19 17:29 03/10/19 00:24 03/10/19 05:47 03/10/19 07:30 Glucose (Fingerstick) 390 mg/dL (70-99) 339 mg/dL (70-99) 358 mg/dL (70-99) O2 Saturation 92 % (92-99) Arterial Blood pH 7.38 (7.35-7.45) Arterial Blood pCO2 at Patient Temp 55 mmHg (35-46) Arterial Blood pO2 at Patient Temp 66 mmHg (75-108) Arterial Blood HCO3 32 mmol/L (21-28) Arterial Blood Base Excess 5 mmol/L (-3-3) FiO2 100 Microbiology 03/05/19 Blood Culture - Preliminary, Resulted NO GROWTH AFTER 4 DAYS 03/08/19 - Final, Resulted 03/08/19 - Final, Resulted 03/08/19 - Final, Resulted 03/08/19 Gram Stain Evaluation - Final, Resulted 03/08/19 Sputum Culture - Preliminary, Resulted 03/08/19 Sputum Result 1 - Final, Resulted 03/02/19 Urine Culture - Final, Complete 03/02/19 Urine Culture Result 1 (LUCIO) - Final, Complete Medications Current Medications Ondansetron HCl (Zofran) 4 mg PRN Q8HRS PRN IV NAUSEA/VOMITING; Start 02/27/19 at 16:45; Stop 02/28/19 at 16:44; Status DC Morphine Sulfate (Morphine Sulfate) 2 mg PRN Q2HR PRN IV PAIN; Start 02/27/19 at 16:45; Stop 02/28/19 at 16:44; Status DC Acetaminophen (Tylenol) 650 mg PRN Q4HRS PRN PO FEVER Last administered on 02/27at 21:06; Start 02/27/19 at 16:45; Stop 02/28/19 at 16:44; Status DC Dextrose (Dextrose 50%-Water Syringe) 12.5 gm PRN Q15MIN PRN IV SEE COMMENTS; Start 02/27/19 at 16:45 Heparin Sodium (Porcine) (Heparin Sodium) 5,000 unit Q8HRS SQ Last administered on 03/10/19at 05:45; Start 02/27/19 at 17:00 Lorazepam (Ativan) 1 mg PRN Q8HRS PRN IV ANXIETY / AGITATION Last administered on 03/08/19at 03:37; Start 02/28/19 at 02:45 Etomidate (Amidate) 20 mg STK-MED ONCE IV ; Start 02/28/19 at 06:59; Stop at 07:00; Status DC Rocuronium Elaine (Zemuron) 50 mg STK-MED ONCE .ROUTE ; Start 02/28/19 at 07:00 ; Stop 02/28/19 at 09:42; Status DC Dopamine HCl/ Dextrose 250 ml @ 12.266 mls/ hr CONT PRN IV SEE I/O RECORD Last administered on 02/28/19at 08:06; Start 02/28/19 at 07:15 Fentanyl Citrate 30 ml @ 0 mls/hr CONT PRN IV SEE PROTOCOL; Start 02/28/19 at 07:15; Stop 02/28/19 at 07:59; Status DC Propofol 100 ml @ 0 mls/hr CONT PRN IV SEE PROTOCOL; Start 02/28/19 at 07:15; Stop 02/28/19 at 07:59; Status DC Fentanyl Citrate (Fentanyl 2ml Vial) 25 mcg PRN Q1HR PRN IV SEE COMMENTS; Start 02/28/19 at 07:15; Stop 02/28/19 at 07:59; Status DC Fentanyl Citrate (Fentanyl 2ml Vial) 50 mcg PRN Q1HR PRN IV SEE COMMENTS; Start 02/28/19 at 07:15; Stop 02/28/19 at 07:59; Status DC Midazolam HCl 100 ml @ 0 mls/hr CONT PRN IV SEE PROTOCOL Last administered on at 05:12; Start 02/28/19 at 07:15 Sodium Chloride 1,000 ml @ 1,000 mls/hr Q1H IV Last administered on 02/28/19at 07:32; Start 02/28/19 at 07:32; Stop 02/28/19 at 10:09; Status DC Fentanyl Citrate (Fentanyl 2ml Vial) 25 mcg PRN Q30MIN PRN IV see comments; Start 02/28/19 at 07:45; Stop 02/28/19 at 09:42; Status DC Lorazepam (Ativan) 1 mg PRN Q30MIN PRN IV SEDATION; Start 02/28/19 at 07:45; Stop 02/28/19 at 09:42; Status DC Fentanyl Citrate 30 ml @ 2.5 mls/hr CONT PRN PRN IV SEE I/O RECORD Last administered on 03/05/19at 03:44; Start 02/28/19 at 07:45; Stop 03/05/19 at 04:40; Status DC Propofol 100 ml @ 0 mls/hr CONT PRN IV SEE I/O RECORD; Start 02/28/19 at 07:45 Vecuronium Elaine (Norcuron Bolus) 10 mg PRN Q30MIN PRN IV SHIVERING; Start at 07:45; Stop 02/28/19 at 09:42; Status DC Meperidine HCl (Demerol) 12.5 mg PRN Q30MIN PRN IV SHIVERING; Start 02/28/19 at 07:45; Stop 02/28/19 at 09:42; Status DC Multi-Ingred Cream/Lotion/Oil/ Oint (Artificial Tears Eye Ointment) 1 jennifer PRN Q6HRS PRN OU 0.5 INCH FOR DRY EYE; Start 02/28/19 at 07:45; Stop 02/28/19 at 09 :42; Status DC Famotidine (Pepcid Vial) 20 mg BID IVP Last administered on 02/28/19at 11:03; Start 02/28/19 at 09:00; Stop 02/28/19 at 14:25; Status DC Aspirin (Aspirin) 300 mg DAILY TN ; Start 02/28/19 at 09:00; Stop 02/28/19 at 09 :42; Status DC Sodium Chloride (Normal Saline Flush) 3 ml QSHIFT PRN IV AFTER MEDS AND BLOOD DRAWS; Start 02/28/19 at 07:45 Acetaminophen (Tylenol) 650 mg Q6HRS NG ; Start 02/28/19 at 12:00; Stop at 12:00; Status DC Acetaminophen (Tylenol Supp) 650 mg PRN Q6HRS PRN TN MILD PAIN / TEMP; Start at 07:45; Stop 03/01/19 at 07:45; Status DC Acetaminophen (Tylenol) 650 mg PRN Q6HRS PRN NG MILD PAIN / TEMP; Start at 07:45; Stop 03/01/19 at 07:45; Status DC Info (Icu Electrolyte Protocol) 1 ea DAILY PRN MC PER PROTOCOL; Start 03/02/19 at 07:45; Stop 03/02/19 at 07:45; Status DC Furosemide (Lasix) 60 mg 1X ONCE IVP Last administered on 02/28/19at 08:30; Start 02/28/19 at 08:30; Stop 02/28/19 at 08:31; Status DC Ceftriaxone Sodium (Rocephin) 1 gm Q24H IVP Last administered on 02/28/19at 11: 03; Start 02/28/19 at 11:00; Stop 02/28/19 at 11:18; Status DC Calcium Chloride 1000 mg/Dextrose 60 ml @ 120 mls/hr 1X ONCE IV Last administered on 02/28/19at 11:03; Start 02/28/19 at 10:30; Stop 02/28/19 at 10:59 ; Status DC Meropenem 500 mg/ Sodium Chloride 50 ml @ 100 mls/hr Q8HRS IV Last administered on 03/03/19 06:24; Start 02/28/19 at 14:00; Stop 03/03/19 at 07:04; Status DC Linezolid/Dextrose 300 ml @ 300 mls/hr Q12HR IV Last administered on 03/03/19 20:00; Start 02/28/19 at 11:30; Stop 03/04/19 at 08:55; Status DC Micafungin Sodium 100 mg/Dextrose 100 ml @ 100 mls/hr Q24H IV Last administered on 03/04/19at 15:53; Start 02/28/19 at 12:00; Stop 03/05/19 at 06:47; Status DC Furosemide (Lasix) 40 mg BID92 IVP Last administered on 03/02/19 14:06; Start 02/28/19 at 14:00; Stop 03/02/19 at 17:02; Status DC Famotidine (Pepcid Vial) 20 mg QHS IVP Last administered on 03/01/19at 21:24; Start 02/28/19 at 21:00; Stop 03/02/19 at 10:07; Status DC Albuterol/ Ipratropium (Duoneb) 3 ml RTQID NEB Last administered on 03/10/19at 07 :19; Start 02/28/19 at 16:00 Haloperidol Lactate (Haldol Inj) 5 mg PRN Q6HRS PRN IVP AGITATION 2ND CHOICE Last administered on 03/09/19at 14:07; Start 02/28/19 at 15:15 Vecuronium Elaine (Norcuron Bolus) 8 mg PRN Q4HRS PRN IV MUSCLE SPASMS Last administered on 03/08/19at 17:04; Start 02/28/19 at 15:15 Perflutren Protein Type A Microsphe (Optison) 0.66 mg PRN 1X PRN IV SEE COMMENTS; Start 03/01/19 at 10:00; Stop 03/02/19 at 09:59; Status DC Digoxin (Lanoxin) 125 mcg 1X STAT IV ; Start 03/01/19 at 15:34; Stop 03/01/19 at 16:00; Status DC Sodium Chloride 500 ml @ 500 mls/hr 1X ONCE IV Last administered on 18:46; Start 03/01/19 at 18:45; Stop 03/01/19 at 19:44; Status DC Famotidine (Pepcid Vial) 20 mg Q12HR IVP Last administered on 03/10/19 08:02; Start 03/02/19 at 21:00 Furosemide (Lasix) 40 mg DAILY IVP Last administered on 03/04/19 09:52; Start 03/03/19 at 09:00; Stop 03/04/19 at 12:13; Status DC Acetaminophen (Tylenol Supp) 650 mg PRN Q6HRS PRN TN MILD PAIN / TEMP Last administered on 03/03/19 17:39; Start 03/02/19 at 17:15 Meropenem 500 mg/ Sodium Chloride 50 ml @ 100 mls/hr Q6HRS IV Last administered on 03/05/19 05:33; Start 03/03/19 at 12:00; Stop 03/05/19 at 06:47; Status DC Albumin Human 100 ml @ 100 mls/hr 1X ONCE IV Last administered on 03/03/19 08 :52; Start 03/03/19 at 08:30; Stop 03/03/19 at 09:29; Status DC Atropine Sulfate (ATROPINE 0.5mg SYRINGE) 2 mg STK-MED ONCE .ROUTE ; Start 02/27 at 16:21; Stop 03/03/19 at 16:22; Status DC Dopamine HCl/ Dextrose (DOPamine 400MG/ 250ML PREMIX) 400 mg STK-MED ONCE IV ; Start 02/27/19 at 16:21; Stop 03/03/19 at 16:22; Status DC Furosemide (Lasix) 40 mg 1X ONCE IVP Last administered on 03/03/19 18:46; Start 03/03/19 at 18:45; Stop 03/03/19 at 18:46; Status DC Lorazepam 100 mg/ Sodium Chloride 100 ml @ 0 mls/hr CONT PRN IV SEE PROTOCOL Last administered on 03/03/19 22:18; Start 03/03/19 at 22:00 Acetaminophen (Tylenol) 650 mg PRN Q6HRS PRN PEG MILD PAIN / TEMP Last administered on 03/05/19 09:32; Start 03/04/19 at 11:45 Furosemide (Lasix) 40 mg BID92 IVP Last administered on 03/06/19 08:38; Start 03/04/19 at 14:00; Stop 03/06/19 at 13:30; Status DC Fentanyl Citrate 30 ml @ 0 mls/hr CONT PRN IV SEE PROTOCOL Last administered on 03/10/19 07:01; Start 03/05/19 at 04:45 Cefepime HCl (Maxipime) 2 gm Q8HRS IVP Last administered on 03/10/19 05:43; Start 03/05/19 at 06:45; Stop 03/10/19 at 08:29; Status DC Metronidazole 100 ml @ 100 mls/hr Q8HRS IV Last administered on 03/10/19 05:45 ; Start 03/05/19 at 06:45; Stop 03/10/19 at 08:29; Status DC Linezolid/Dextrose 300 ml @ 300 mls/hr Q12HR IV Last administered on 03/05/19 21:24; Start 03/05/19 at 09:00; Stop 03/06/19 at 06:42; Status DC Metoclopramide HCl (Reglan Vial) 10 mg QIDACHS IV Last administered on 20:43; Start 03/05/19 at 11:30; Stop 03/07/19 at 07:37; Status DC Insulin Glargine (Lantus) 12 units BID SQ Last administered on 03/09/19 09:29; Start 03/05/19 at 09:00; Stop 03/09/19 at 17:11; Status DC Digoxin (Lanoxin) 500 mcg 1X ONCE IV Last administered on 03/06/19 00:48; Start 03/06/19 at 00:45; Stop 03/06/19 at 00:46; Status DC Metoprolol Tartrate (Lopressor Vial) 5 mg 1X ONCE IVP Last administered on 03/06 00:53; Start 03/06/19 at 00:45; Stop 03/06/19 at 00:46; Status DC Sodium Chloride 500 ml @ 500 mls/hr 1X ONCE IV Last administered on 03/06/19 00:49; Start 03/06/19 at 00:45; Stop 03/06/19 at 01:44; Status DC Nystatin (Mycostatin) 1 jennifer BID TP Last administered on 03/10/19 08:02; Start 03/06/19 at 09:00 Sodium Cl/Sod Bicarb/Potass Cl/ PEG (Golytely) 2,000 ml 1X ONCE PO Last administered on 03/06/19 09:33; Start 03/06/19 at 08:00; Stop 03/06/19 at 08:01; Status DC Furosemide (Lasix) 40 mg DAILY08 IVP Last administered on 03/09/19 09:27; Start 03/07/19 at 08:00; Stop 03/09/19 at 12:45; Status DC Metoprolol Tartrate (Lopressor Vial) 10 mg 1X ONCE IVP Last administered on 16:08; Start 03/06/19 at 15:15; Stop 03/06/19 at 15:16; Status DC Metoprolol Tartrate (Lopressor Vial) 5 mg Q6HRS IVP Last administered on 17:03; Start 03/06/19 at 18:00; Stop 03/07/19 at 18:27; Status DC Aspirin (Children'S Aspirin) 81 mg 1X ONCE PO Last administered on 03/06/19 18 :18; Start 03/06/19 at 17:00; Stop 03/06/19 at 17:01; Status DC Aspirin (Children'S Aspirin) 81 mg DAILYWBKFT PO Last administered on 03/10/19 08:01; Start 03/07/19 at 08:00 Labetalol HCl (Normodyne Iv Push) 20 mg PRN Q2HR PRN IVP HYPERTENSION, SEE COMMENTS Last administered on 03/06/19 21:29; Start 03/06/19 at 17:15 Digoxin (Lanoxin) 250 mcg 1X ONCE IV Last administered on 03/06/19 22:00; Start 03/06/19 at 22:00; Stop 03/06/19 at 22:01; Status DC Diltiazem HCl 125 mg/Dextrose 125 ml @ 5 mls/hr CONT PRN IV SEE I/O RECORD Last administered on 03/09/19at 10:20; Start 03/06/19 at 23:00 Metoclopramide HCl (Reglan Vial) 10 mg Q6HRS IV ; Start 03/07/19 at 08:00; Stop 03/08/19 at 07:51; Status DC Metoprolol Tartrate (Lopressor Vial) 5 mg Q6HRS IVP Last administered on at 05:44; Start 03/08/19 at 12:00 Furosemide (Lasix) 40 mg 1X ONCE IVP Last administered on 03/08/19at 21:21; Start 03/08/19 at 21:00; Stop 03/08/19 at 21:01; Status DC Furosemide (Lasix) 20 mg DAILY08 IVP ; Start 03/10/19 at 08:00; Stop 03/10/19 at 08:00; Status DC Furosemide (Lasix) 20 mg DAILY08 IVP Last administered on 03/10/19at 08:02; Start 03/10/19 at 08:00 Insulin Glargine (Lantus) 16 units BID SQ Last administered on 03/10/19at 08:04; Start 03/09/19 at 21:00 Insulin Human Lispro (HumaLOG) 0-9 UNITS Q6HRS SQ Last administered on at 05:52; Start 03/09/19 at 18:00 Dextrose (Dextrose 50%-Water Syringe) 12.5 gm PRN Q15MIN PRN IV SEE COMMENTS; Start 03/09/19 at 17:15 Cefepime HCl (Maxipime) 2 gm Q12HR IVP ; Start 03/10/19 at 21:00 Active Scripts Active Reported Proair Hfa Inhaler (Albuterol Sulfate) 8.5 Gm Hfa.aer.ad 1 Puff INH PRN Q6HRS PRN Lantus Solostar (Insulin Glargine,Hum.rec.anlog) 100 Unit/1 Ml Insuln.pen 20 Unit SQ QHS Humalog (Insulin Lispro) 100 Unit/1 Ml Cartridge 6 Unit SQ TIDWMEALS Doxazosin Mesylate 2 Mg Tablet 2 Mg PO DAILY Omeprazole 40 Mg Capsule.dr 40 Mg PO DAILY Amlodipine Besylate 10 Mg Tablet 10 Mg PO DAILY Atorvastatin Calcium 20 Mg Tablet 20 Mg PO DAILY Atenolol 50 Mg Tablet 50 Mg PO DAILY Losartan Potassium 100 Mg Tablet 100 Mg PO DAILY Aspirin 81 Mg Tab.chew 81 Mg PO DAILY Glyburide 5 Mg Tablet 1 Tab PO BID Vitals/I & O Vital Sign - Last 24 Hours 03/09/19 03/09/19 03/09/19 03/09/19 11:00 12:00 12:00 12:40 Temp 99.7 99.7 Pulse 74 73 Resp 22 22 B/P (MAP) 112/60 (77) 120/64 (82) Pulse Ox 91 92 93 O2 Delivery Ventilator Mechanical Ventilator Ventilator Ventilator 03/09/19 03/09/19 03/09/19 03/09/19 12:48 13:00 14:00 15:00 Pulse 78 76 79 79 Resp 28 27 27 B/P (MAP) 118/54 118/54 (75) 117/60 (79) 117/60 (79) Pulse Ox 97 93 93 O2 Delivery Ventilator Ventilator Ventilator 03/09/19 03/09/19 03/09/19 03/09/19 15:01 15:58 16:00 16:00 Temp 98.9 98.9 Pulse 74 Resp 27 B/P (MAP) 125/60 (81) Pulse Ox 93 95 94 O2 Delivery Ventilator Mechanical Ventilator Ventilator O2 Flow Rate 4.0 03/09/19 03/09/19 03/09/19 03/09/19 17:00 17:21 17:55 18:00 Pulse 76 76 77 Resp 24 22 B/P (MAP) 124/62 (82) 141/67 (91) Pulse Ox 96 95 96 O2 Delivery Ventilator Ventilator Ventilator 03/09/19 03/09/19 03/09/19 03/09/19 19:00 19:27 20:00 20:00 Temp 100.7 100.7 Pulse 77 79 Resp 22 22 B/P (MAP) 138/62 (87) 129/65 (86) Pulse Ox 96 96 96 O2 Delivery Ventilator Ventilator Ventilator Mechanical Ventilator 03/09/19 03/09/19 03/09/19 03/09/19 21:00 21:15 22:00 23:00 Pulse 75 79 80 Resp 22 26 22 B/P (MAP) 135/68 (90) 156/81 (106) 131/70 (90) Pulse Ox 96 97 98 98 O2 Delivery Ventilator Ventilator Ventilator Ventilator 03/09/19 03/10/19 03/10/19 03/10/19 23:59 00:00 00:03 00:28 Temp 99.0 99.0 Pulse 76 78 Resp 22 B/P (MAP) 134/70 (91) 143/70 Pulse Ox 98 98 O2 Delivery Mechanical Ventilator Ventilator Ventilator 03/10/19 03/10/19 03/10/19 03/10/19 01:00 02:08 02:11 03:00 Pulse 73 72 76 Resp 22 22 B/P (MAP) 150/73 (98) 132/69 (90) 161/84 (109) Pulse Ox 99 98 98 94 O2 Delivery Ventilator Ventilator Ventilator Ventilator 03/10/19 03/10/19 03/10/19 03/10/19 03:45 04:00 04:00 05:00 Temp 98.8 98.8 Pulse 72 73 Resp 22 B/P (MAP) 148/75 (99) 145/74 (97) Pulse Ox 95 96 96 O2 Delivery Ventilator Mechanical Ventilator Ventilator 03/10/19 03/10/19 03/10/19 03/10/19 05:10 05:44 06:00 07:00 Pulse 75 69 70 Resp B/P (MAP) 145/74 152/70 (97) 147/69 (95) Pulse Ox 94 95 94 O2 Delivery Ventilator Ventilator Ventilator 03/10/19 03/10/19 03/10/19 03/10/19 07:01 07:19 07:34 08:00 Temp 98.3 98.3 Pulse 75 Resp 22 B/P (MAP) 164/94 (117) Pulse Ox 95 95 94 O2 Delivery Ventilator Ventilator Ventilator Ventilator 03/10/19 03/10/19 03/10/19 03/10/19 08:00 08:59 09:00 10:00 Pulse 74 72 Resp 22 22 B/P (MAP) 186/96 (126) 137/70 (92) Pulse Ox 96 95 95 O2 Delivery Mechanical Ventilator Ventilator Ventilator Ventilator Intake and Output 03/09/19 03/09/19 03/10/19 14:59 22:59 06:59 Intake Total 308 ml 1903 ml 1429.20 ml Output Total 525 ml 475 ml 425 ml Balance -217 ml 1428 ml 1004.20 ml MICHAEL BURRIS MD Mar 10, 2019 10:44
[2019-03-10] MEDS: dilTIAZem INJ 125 MG in IV DEXTROSE 5% 100ML 100 ML IV PRN (11:58)
--- NOTE | 2019-03-10 16:11 | PDOC ---
SUBJECTIVE ROS Intubated OBJECTIVE Vital Signs Vital Signs Date Time Temp Pulse Resp B/P (MAP) Pulse Ox O2 Delivery O2 Flow Rate FiO2 03/10/19 14:00 74 22 167/81 (109) 96 Ventilator 03/10/19 12:00 98.2 98.2 03/09/19 15:01 4.0 I & 0 Intake and Output 03/10/19 06:59 Intake Total 3640.20 ml Output Total 1425 ml Balance 2215.20 ml IV Total 824.20 ml Tube Feeding 2066 ml Other 750 ml Output Urine Total 1425 ml Gastric Drainage Total 0 ml PHYSICAL EXAM Physical Exam GENERAL: Sedated and intubated. HEENT: ETT. OGT NECK: Supple. LUNGS: CTA ant HEART: S1, S2. ABDOMEN: Distended with decreased bowel sounds GENITOURINARY: [place] +, 2+ scrotal swelling EXTREMITIES: 1+ edema. RLE stump with chronic wound. SKIN: bilateral flank and Lt groin maculo papular rash DIAGNOSIS/ASSESSMENT Assessment & Plan LEONARD- back up to 2-2.3 , stable E-Lytes and acid base Monitor , labs ordered for am On IV Lasix to QD Acute hypoxemic /hypercapnic respiratory failure./ ARDS Anasarca- Improved Hypernatremia - Resolved Right Renal mass Fever - ? Infection vs ileus vs drug reaction Flank rash - no Eosinophilia Acute respiratory failure, intubated, increased infiltrates today - ARDS Scrotal edema/cellulitis- Improved urology consulted In hospital CP arrest COMMENT/RELEVANT DATA Meds Current Medications Medications (Trade) Dose Ordered Sig/Lula Start Time Stop Time Status Last Admin Dose Admin Acetaminophen (Tylenol Supp) 650 mg PRN Q6HRS PRN 03/02/19 17:15 03/03/19 17:39 650 MG Acetaminophen (Tylenol) 650 mg PRN Q6HRS PRN 03/04/19 11:45 03/05/19 09:32 650 MG Albumin Human 100 ml @ 100 mls/hr 1X ONCE 03/03/19 08:30 03/03/19 09:29 DC 03/03/19 08:52 100 MLS/HR Albuterol/ Ipratropium (Duoneb) 3 ml RTQID 02/28/19 16:00 03/10/19 11:44 3 ML Aspirin (Aspirin) 300 mg DAILY 02/28/19 09:00 02/28/19 09:42 DC Aspirin (Children'S Aspirin) 81 mg DAILYWBKFT 03/07/19 08:00 03/10/19 08:01 81 MG Atropine Sulfate (ATROPINE 0.5mg SYRINGE) 2 mg STK-MED ONCE 02/27/19 16:21 03/03/19 16:22 DC Calcium Chloride 1000 mg/Dextrose 60 ml @ 120 mls/hr 1X ONCE 02/28/19 10:30 02/28/19 10:59 DC 02/28/19 11:03 120 MLS/HR Cefepime HCl (Maxipime) 2 gm Q12HR 03/10/19 21:00 Ceftriaxone Sodium (Rocephin) 1 gm Q24H 02/28/19 11:00 02/28/19 11:18 DC 02/28/19 11:03 1 GM Dextrose (Dextrose 50%-Water Syringe) 12.5 gm PRN Q15MIN PRN 03/09/19 17:15 Digoxin (Lanoxin) 250 mcg 1X ONCE 03/06/19 22:00 03/06/19 22:01 DC 03/06/19 22:00 250 MCG Diltiazem HCl 125 mg/Dextrose 125 ml @ 5 mls/hr CONT PRN 03/06/19 23:00 03/10/19 11:58 5 MLS/HR Dopamine HCl/ Dextrose (DOPamine 400MG/ 250ML PREMIX) 400 mg STK-MED ONCE 02/27/19 16:21 03/03/19 16:22 DC Etomidate (Amidate) 20 mg STK-MED ONCE 02/28/19 06:59 02/28/19 07:00 DC Famotidine (Pepcid Vial) 20 mg Q12HR 03/02/19 21:00 03/10/19 08:02 20 MG Fentanyl Citrate 30 ml @ 0 mls/hr CONT PRN 03/05/19 04:45 03/10/19 11:58 4.95 MLS/HR Fentanyl Citrate (Fentanyl 2ml Vial) 25 mcg PRN Q30MIN PRN 02/28/19 07:45 02/28/19 09:42 DC Furosemide (Lasix) 20 mg DAILY08 03/10/19 08:00 03/10/19 08:02 20 MG Haloperidol Lactate (Haldol Inj) 5 mg PRN Q6HRS PRN 02/28/19 15:15 03/09/19 14:07 5 MG Heparin Sodium (Porcine) (Heparin Sodium) 5,000 unit Q8HRS 02/27/19 17:00 03/10/19 14:01 5,000 UNIT Info (Icu Electrolyte Protocol) 1 ea DAILY PRN 03/02/19 07:45 03/02/19 07:45 DC Insulin Glargine (Lantus) 16 units BID 03/09/19 21:00 03/10/19 08:04 16 UNITS Insulin Human Lispro (HumaLOG) 0-9 UNITS Q6HRS 03/09/19 18:00 03/10/19 11:31 9 UNITS Labetalol HCl (Normodyne Iv Push) 20 mg PRN Q2HR PRN 03/06/19 17:15 03/06/19 21:29 20 MG Linezolid/Dextrose 300 ml @ 300 mls/hr Q12HR 03/05/19 09:00 03/06/19 06:42 DC 03/05/19 21:24 300 MLS/HR Lorazepam (Ativan) 1 mg PRN Q30MIN PRN 02/28/19 07:45 02/28/19 09:42 DC Lorazepam 100 mg/ Sodium Chloride 100 ml @ 0 mls/hr CONT PRN 03/03/19 22:00 03/03/19 22:18 1 MLS/HR Meperidine HCl (Demerol) 12.5 mg PRN Q30MIN PRN 02/28/19 07:45 02/28/19 09:42 DC Meropenem 500 mg/ Sodium Chloride 50 ml @ 100 mls/hr Q6HRS 03/03/19 12:00 03/05/19 06:47 DC 03/05/19 05:33 100 MLS/HR Metoclopramide HCl (Reglan Vial) 10 mg Q6HRS 03/07/19 08:00 03/08/19 07:51 DC Metoprolol Tartrate (Lopressor Vial) 5 mg Q6HRS 03/08/19 12:00 03/10/19 11:33 5 MG Metronidazole 100 ml @ 100 mls/hr Q8HRS 03/05/19 06:45 03/10/19 08:29 DC 03/10/19 05:45 100 MLS/HR Micafungin Sodium 100 mg/Dextrose 100 ml @ 100 mls/hr Q24H 02/28/19 12:00 03/05/19 06:47 DC 03/04/19 15:53 100 MLS/HR Midazolam HCl 100 ml @ 0 mls/hr CONT PRN 02/28/19 07:15 03/10/19 14:00 10 MLS/HR Morphine Sulfate (Morphine Sulfate) 2 mg PRN Q2HR PRN 02/27/19 16:45 02/28/19 16:44 DC Multi-Ingred Cream/Lotion/Oil/ Oint (Artificial Tears Eye Ointment) 1 jennifer PRN Q6HRS PRN 02/28/19 07:45 02/28/19 09:42 DC Nystatin (Mycostatin) 1 jennifer BID 03/06/19 09:00 03/10/19 08:02 1 JENNIFER Ondansetron HCl (Zofran) 4 mg PRN Q8HRS PRN 02/27/19 16:45 02/28/19 16:44 DC Perflutren Protein Type A Microsphe (Optison) 0.66 mg PRN 1X PRN 03/01/19 10:00 03/02/19 09:59 DC Propofol 100 ml @ 0 mls/hr CONT PRN 02/28/19 07:45 Rocuronium [place] (Zemuron) 50 mg STK-MED ONCE 02/28/19 07:00 02/28/19 09:42 DC Sodium Chloride 500 ml @ 500 mls/hr 1X ONCE 03/06/19 00:45 03/06/19 01:44 DC 03/06/19 00:49 500 MLS/HR Sodium Chloride (Normal Saline Flush) 3 ml QSHIFT PRN 02/28/19 07:45 Sodium Cl/Sod Bicarb/Potass Cl/ PEG (Golytely) 2,000 ml 1X ONCE 03/06/19 08:00 03/06/19 08:01 DC 03/06/19 09:33 2,000 ML Vecuronium [place] (Norcuron Bolus) 8 mg PRN Q4HRS PRN 02/28/19 15:15 03/08/19 17:04 8 MG Lab Laboratory Tests Test 03/09/19 17:29 4/9/19 00:24 03/10/19 05:47 03/10/19 07:30 Glucose (Fingerstick) 390 mg/dL (70-99) 339 mg/dL (70-99) 358 mg/dL (70-99) O2 Saturation 92 % (92-99) Arterial Blood pH 7.38 (7.35-7.45) Arterial Blood pCO2 at Patient Temp 55 mmHg (35-46) Arterial Blood pO2 at Patient Temp 66 mmHg (75-108) Arterial Blood HCO3 32 mmol/L (21-28) Arterial Blood Base Excess 5 mmol/L (-3-3) FiO2 100 Test 03/10/19 11:26 Glucose (Fingerstick) 315 mg/dL (70-99) Results All relevant outside records, renal labs, imaging studies, telemetry/EKG's were reviewed. GALO AMBRIZ MD Mar 10, 2019 16:11
[2019-03-10] MEDS: ACETAMINOPHEN 650 MG/20.3 ML SOLUTION. PEG PRN (20:48)
[2019-03-11] VITALS (24 sets, daily range): BP systolic 107–176; BP diastolic 62–87
[2019-03-11] MEDS ORDERED: INSULIN LISPRO 300 UNITS/3 ML INSULN.PEN. SQ ONE
[2019-03-11] MEDS: METOPROLOL TARTRATE 5 MG/5 ML VIAL. IVP SCH ×3 (05:54→18:05)
[2019-03-11] MEDS: INSULIN LISPRO 300 UNITS/3 ML INSULN.PEN. SQ SCH ×4 (05:55→18:10)
[2019-03-11] MEDS: HEPARIN for SUB-Q USE 5,000 UNIT/ML VIAL. SQ SCH ×3 (05:55→21:32)
[2019-03-11 06:08] LABS: CALCIUM 8.7 mg/dL (8.5-10.1); CREATININE 1.9 mg/dL (0.7-1.3); GFR 36.9; POTASSIUM 4.6 mmol/L (3.5-5.1)
--- NOTE | 2019-03-11 08:05 | PDOC ---
Infectious Disease Note Subjective Subjective Sedated Intubated TPN ROS ROS no n/v/d/fever Vital Sign Vital Signs Vital Signs Date Time Temp Pulse Resp B/P (MAP) Pulse Ox O2 Delivery O2 Flow Rate FiO2 03/11/19 07:21 22 95 Ventilator 99.0 03/11/19 07:13 72 148/79 (102) 03/11/19 04:00 99.0 99.0 Physical Exam PHYSICAL EXAM GENERAL: Sedated and intubated. HEENT: PERRL, normal conj. ETT. OGT NECK: Supple. LUNGS: Decreased in bases HEART: S1, S2. ABDOMEN: Obese, decreased bowel sounds, no grimace or guarding to palpation GENITOURINARY: [place] - He has 3+ scrotal swelling with less erythema. EXTREMITIES: No clubbing, cyanosis with 2 + edema. Generalized anasarca. RLE stump with chronic wound. No erythema/fluctuance/warmth SKIN: Warm to touch. 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 groin LOGISTICS/SHIPPER: Sedated [facility] Labs Lab Laboratory Tests Test 03/10/19 11:26 03/10/19 17:42 03/10/19 23:42 03/11/19 05:20 Glucose (Fingerstick) 315 mg/dL (70-99) 348 mg/dL (70-99) 355 mg/dL (70-99) Sodium Level 148 mmol/L (136-145) Potassium Level 4.6 mmol/L (3.5-5.1) Chloride Level 109 mmol/L (98-107) Carbon Dioxide Level 32 mmol/L (21-32) Anion Gap 7 (6-14) Blood Urea Nitrogen 82 mg/dL (8-26) Creatinine 1.9 mg/dL (0.7-1.3) Estimated GFR (Cockcroft-Gault) 36.9 Glucose Level 309 mg/dL (70-99) Calcium Level 8.7 mg/dL (8.5-10.1) Test 03/11/19 05:22 Glucose (Fingerstick) 270 mg/dL (70-99) Micro Microbiology 03/05/19 Blood Culture - Preliminary, Resulted NO GROWTH AFTER 3 DAYS 03/05/19 - Final, Complete 03/05/19 - Final, Complete 03/05/19 - Final, Complete 03/05/19 Gram Stain Evaluation - Final, Complete 03/05/19 Sputum Culture - Final, Complete 03/05/19 Sputum Result 1 - Final, Complete 03/02/19 Urine Culture - Final, Complete 03/02/19 Urine Culture Result 1 (LUCIO) - Final, Complete Objective Assessment Fever - improved Flank rash - no Eosinophilia but ? drug - had been on micafungin so less likely yeast Tachycardia - s/p Bolus/Digoxin and Metoprolol Increased GI residuals - Has been on/off ? Ileus vs DM gastroparesis Acute respiratory failure, intubated, increased infiltrates today - ARDS Scrotal edema/cellulitis. Status post code. Fluid overload - mild increase Acute kidney injury Distant history of group B strep, Acinetobacter, Porphyromonas, plus anaerobes. ARDS Plan Plan of Care Rash present slightly per nursing evening 03/04 into 03/05. Cefepime/ Nystatin F/u labs/cults Supportive care Critically ill HEIDY RAMIREZ MD Mar 11, 2019 08:05
--- NOTE | 2019-03-11 08:17 | RAD ---
Single view of the chest. 03/11/2019 9:00 AM Indication: RESPIRATORY FAILURE Comparison: Chest radiograph, yesterday Findings: Endotracheal tube in place with tip 5 cm above the armani. Enteric tube extends below the diaphragm the tip is not visualized. Right upper extremity PICC line is also noted, the tip of which is not visualized well. Central vascular congestion appears to be present. Dense bilateral infiltrates with some sparing of the right upper lung are present. Are likely moderate layering bilateral pleural effusions. Bony thorax is unchanged in the interim. IMPRESSION: 1. Somewhat poor visualization but grossly stable appearance of support lines and tubes 2. Patchy dense infiltrates throughout the bilateral lungs with some sparing of the right upper lung grossly similar to comparison study. 3. Probable moderate layering bilateral pleural effusions Electronically signed by: Chivo Wadsworth MD (03/11/2019 8:15 AM) [id number]
[2019-03-11] MEDS: FUROSEMIDE 20 MG/2 ML VIAL. IVP SCH (08:48)
[2019-03-11] MEDS: ASPIRIN CHEWABLE 81 MG TABLET. PO SCH (08:48)
[2019-03-11] MEDS: FAMOTIDINE 20 MG/2 ML VIAL IVP SCH ×2 (08:48→21:29)
[2019-03-11] MEDS: CEFEPIME HCL IV Push 2 GM VIAL. IVP SCH ×2 (08:49→21:29)
[2019-03-11] MEDS: NYSTATIN 100,000 UNIT/GM TOPICAL CREAM 15GM TUBE. TP SCH ×2 (08:49→21:30)
[2019-03-11] MEDS: MIDAZOLAM 100mg/100ml NS BAG 100 ML IV PRN ×2 (08:52→18:22)
[2019-03-11] MEDS: INSULIN GLARGINE 300 UNITS/3 ML INSULN.PEN. SQ SCH (08:52)
--- NOTE | 2019-03-11 09:06 | PDOC ---
SUBJECTIVE ROS Intubated OBJECTIVE Vital Signs Vital Signs Date Time Temp Pulse Resp B/P (MAP) Pulse Ox O2 Delivery O2 Flow Rate FiO2 03/11/19 08:08 Mechanical Ventilator 03/11/19 07:57 99.0 71 22 176/81 (112) 96 96.0 99.0 I & 0 Intake and Output 03/11/19 07:00 Intake Total 3845.02 ml Output Total 1580 ml Balance 2265.02 ml IV Total 459.02 ml Tube Feeding 2936 ml Other 450 ml Output Urine Total 1580 ml Gastric Drainage Total 0 ml # Bowel Movements 2 PHYSICAL EXAM Physical Exam GENERAL: Sedated and intubated. HEENT: ETT. OGT NECK: Supple. LUNGS: CTA ant HEART: S1, S2. ABDOMEN: Distended with decreased bowel sounds GENITOURINARY: [place] +, + scrotal swelling EXTREMITIES: 1+ edema. RLE stump with chronic wound. SKIN: 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 groin DIAGNOSIS/ASSESSMENT Assessment & Plan LEONARD- Cr up to 2-2.3 ,improving stable E-Lytes and acid base Monitor Acute hypoxemic /hypercapnic respiratory failure./ ARDS Anasarca- Improved Low dose IV Lasix now Hypernatremia -Mild Right Renal mass Fever - ? Infection vs ileus vs drug reaction Acute respiratory failure, intubated, increased infiltrates today - ARDS Scrotal edema/cellulitis- Improved urology consulted In hospital CP arrest COMMENT/RELEVANT DATA Meds Current Medications Medications (Trade) Dose Ordered Sig/Lula Start Time Stop Time Status Last Admin Dose Admin Acetaminophen (Tylenol Supp) 650 mg PRN Q6HRS PRN 03/02/19 17:15 03/03/19 17:39 650 MG Acetaminophen (Tylenol) 650 mg PRN Q6HRS PRN 03/04/19 11:45 03/10/19 20:48 650 MG Albumin Human 100 ml @ 100 mls/hr 1X ONCE 03/03/19 08:30 03/03/19 09:29 DC 03/03/19 08:52 100 MLS/HR Albuterol/ Ipratropium (Duoneb) 3 ml RTQID 02/28/19 16:00 03/10/19 20:05 3 ML Aspirin (Aspirin) 300 mg DAILY 02/28/19 09:00 02/28/19 09:42 DC Aspirin (Children'S Aspirin) 81 mg DAILYWBKFT 03/07/19 08:00 03/11/19 08:48 81 MG Atropine Sulfate (ATROPINE 0.5mg SYRINGE) 2 mg STK-MED ONCE 02/27/19 16:21 03/03/19 16:22 DC Calcium Chloride 1000 mg/Dextrose 60 ml @ 120 mls/hr 1X ONCE 02/28/19 10:30 02/28/19 10:59 DC 02/28/19 11:03 120 MLS/HR Cefepime HCl (Maxipime) 2 gm Q12HR 03/10/19 21:00 03/11/19 08:49 2 GM Ceftriaxone Sodium (Rocephin) 1 gm Q24H 02/28/19 11:00 02/28/19 11:18 DC 02/28/19 11:03 1 GM Dextrose (Dextrose 50%-Water Syringe) 12.5 gm PRN Q15MIN PRN 03/09/19 17:15 Digoxin (Lanoxin) 250 mcg 1X ONCE 03/06/19 22:00 03/06/19 22:01 DC 03/06/19 22:00 250 MCG Diltiazem HCl 125 mg/Dextrose 125 ml @ 5 mls/hr CONT PRN 03/06/19 23:00 03/10/19 11:58 5 MLS/HR Dopamine HCl/ Dextrose (DOPamine 400MG/ 250ML PREMIX) 400 mg STK-MED ONCE 02/27/19 16:21 03/03/19 16:22 DC Etomidate (Amidate) 20 mg STK-MED ONCE 02/28/19 06:59 02/28/19 07:00 DC Famotidine (Pepcid Vial) 20 mg Q12HR 03/02/19 21:00 03/11/19 08:48 20 MG Fentanyl Citrate 30 ml @ 0 mls/hr CONT PRN 03/05/19 04:45 03/11/19 07:21 4.95 MLS/HR Fentanyl Citrate (Fentanyl 2ml Vial) 25 mcg PRN Q30MIN PRN 02/28/19 07:45 02/28/19 09:42 DC Furosemide (Lasix) 20 mg DAILY08 03/10/19 08:00 03/11/19 08:48 20 MG Haloperidol Lactate (Haldol Inj) 5 mg PRN Q6HRS PRN 02/28/19 15:15 03/09/19 14:07 5 MG Heparin Sodium (Porcine) (Heparin Sodium) 5,000 unit Q8HRS 02/27/19 17:00 03/11/19 05:55 5,000 UNIT Info (Icu Electrolyte Protocol) 1 ea DAILY PRN 03/02/19 07:45 03/02/19 07:45 DC Insulin Glargine (Lantus) 16 units BID 03/09/19 21:00 03/11/19 08:52 16 UNITS Insulin Human Lispro (HumaLOG) 15 units 1X ONCE 03/11/19 00:00 03/11/19 00:01 DC 03/11/19 00:14 15 UNITS Labetalol HCl (Normodyne Iv Push) 20 mg PRN Q2HR PRN 03/06/19 17:15 03/06/19 21:29 20 MG Linezolid/Dextrose 300 ml @ 300 mls/hr Q12HR 03/05/19 09:00 03/06/19 06:42 DC 03/05/19 21:24 300 MLS/HR Lorazepam (Ativan) 1 mg PRN Q30MIN PRN 02/28/19 07:45 02/28/19 09:42 DC Lorazepam 100 mg/ Sodium Chloride 100 ml @ 0 mls/hr CONT PRN 03/03/19 22:00 03/03/19 22:18 1 MLS/HR Meperidine HCl (Demerol) 12.5 mg PRN Q30MIN PRN 02/28/19 07:45 02/28/19 09:42 DC Meropenem 500 mg/ Sodium Chloride 50 ml @ 100 mls/hr Q6HRS 03/03/19 12:00 03/05/19 06:47 DC 03/05/19 05:33 100 MLS/HR Metoclopramide HCl (Reglan Vial) 10 mg Q6HRS 03/07/19 08:00 03/08/19 07:51 DC Metoprolol Tartrate (Lopressor Vial) 5 mg Q6HRS 03/08/19 12:00 03/11/19 05:54 5 MG Metronidazole 100 ml @ 100 mls/hr Q8HRS 03/05/19 06:45 03/10/19 08:29 DC 03/10/19 05:45 100 MLS/HR Micafungin Sodium 100 mg/Dextrose 100 ml @ 100 mls/hr Q24H 02/28/19 12:00 03/05/19 06:47 DC 03/04/19 15:53 100 MLS/HR Midazolam HCl 100 ml @ 0 mls/hr CONT PRN 02/28/19 07:15 03/11/19 08:52 10 MLS/HR Morphine Sulfate (Morphine Sulfate) 2 mg PRN Q2HR PRN 02/27/19 16:45 02/28/19 16:44 DC Multi-Ingred Cream/Lotion/Oil/ Oint (Artificial Tears Eye Ointment) 1 jennifer PRN Q6HRS PRN 02/28/19 07:45 02/28/19 09:42 DC Nystatin (Mycostatin) 1 jennifer BID 03/06/19 09:00 03/11/19 08:49 1 JENNIFER Ondansetron HCl (Zofran) 4 mg PRN Q8HRS PRN 02/27/19 16:45 02/28/19 16:44 DC Perflutren Protein Type A Microsphe (Optison) 0.66 mg PRN 1X PRN 03/01/19 10:00 03/02/19 09:59 DC Propofol 100 ml @ 0 mls/hr CONT PRN 02/28/19 07:45 Rocuronium [place] (Zemuron) 50 mg STK-MED ONCE 02/28/19 07:00 02/28/19 09:42 DC Sodium Chloride 500 ml @ 500 mls/hr 1X ONCE 03/06/19 00:45 03/06/19 01:44 DC 03/06/19 00:49 500 MLS/HR Sodium Chloride (Normal Saline Flush) 3 ml QSHIFT PRN 02/28/19 07:45 Sodium Cl/Sod Bicarb/Potass Cl/ PEG (Golytely) 2,000 ml 1X ONCE 03/06/19 08:00 03/06/19 08:01 DC 03/06/19 09:33 2,000 ML Vecuronium [place] (Norcuron Bolus) 8 mg PRN Q4HRS PRN 02/28/19 15:15 03/08/19 17:04 8 MG Lab Laboratory Tests Test 03/10/19 11:26 03/10/19 17:42 03/10/19 23:42 03/11/19 05:20 Glucose (Fingerstick) 315 mg/dL (70-99) 348 mg/dL (70-99) 355 mg/dL (70-99) Sodium Level 148 mmol/L (136-145) Potassium Level 4.6 mmol/L (3.5-5.1) Chloride Level 109 mmol/L (98-107) Carbon Dioxide Level 32 mmol/L (21-32) Anion Gap 7 (6-14) Blood Urea Nitrogen 82 mg/dL (8-26) Creatinine 1.9 mg/dL (0.7-1.3) Estimated GFR (Cockcroft-Gault) 36.9 Glucose Level 309 mg/dL (70-99) Calcium Level 8.7 mg/dL (8.5-10.1) Test 03/11/19 05:22 Glucose (Fingerstick) 270 mg/dL (70-99) Results All relevant outside records, renal labs, imaging studies, telemetry/EKG's were reviewed. GALO AMBRIZ MD Mar 11, 2019 09:06
[2019-03-11 09:22] LABS: BASE EXCESS ABG 5 mmol/L (-3-3); HCO3 ABG 33 mmol/L (21-28); PO2 ABG 68 mmHg (75-108); SAT O2 ABG 92 % (92-99)
[2019-03-11 09:24] LABS: CORRECTED PCO2 ABG 61 mmHg; CORRECTED PH ABG 7.35; CORRECTED PO2 ABG 68 mmHg
[2019-03-11] MEDS: IPRATRPIUM/ALBUTEROL 0.5/2.5MG 3 ML NEBU. NEB SCH ×4 (09:25→20:19)
--- NOTE | 2019-03-11 09:32 | PDOC ---
PROGRESS NOTES Chief Complaint Chief Complaint Assessment/Plan ACUTE RESP ARREST POST CODE ON FLOOR 02/27 Acute respiratory failure secondary to congestive heart failure, most probably acute on chronic diastolic. s/p intubation. Myocardial infarction ruled out. Hypernatremia secondary to severe dehydration will need to provide water flushes in order to correct electrolyte disturbance. High residuals on tube feedings no evidence of obstructive pattern on x ray done 03/05/2019 3 weeks of bilateral general scrotal swelling and tenderness. +dyspnea, abd swelling, leg swelling. POA, Dm2 obesity, extreme, morbid hx RLE BKA RLE stump with chronic wound. No erythema/warmth left foot nail onychomycosis needs attention when more clinically stable Acute renal failure ATN Renal CONSULT 3.1-1.8 chronic venous insuff left lower leg nonspecific perinephric stranding with slight asymmetric stranding adjacent to the left renal pelvis. Findings may be due to chronic kidney disease, though ascending urinary tract infection is not excluded. Bilateral lower lobe consolidation concerning for multifocal pneumonia aspiration not excluded. Right renal hypodensity measuring 2.5 cm is incompletely evaluated on noncontrast examination. Follow-up MRI or CT abdomen and pelvis renal protocol with contrast is recommended for further evaluation. Anasarca. bilateral external iliac lymphadenopathy, may be reactive, though follow-up CT abdomen and pelvis in 3 months is recommended to assess for stability/resolution. Nonobstructive left nephrolithiasis. Coronary artery calcifications. The left ventricular systolic function is normal.ejection fraction is 60-65% .normal LV segmental wall motion. Transmitral Doppler flow pattern is Grade I-abnormal relaxation pattern. Trace tricuspid regurgitation. Estimated PAP 33-38 mmHg. PLAN continue with supportive measures ventilatory support still requiring [id number]% oxygen and over 10 of PEEP follow recommendations from public relations consultant. UROLOGY CONSULT reviewed no intervention needed except for elevation and diuresis ID CONSULT continue wtih antibiotic as per ID ECHO noted critically ill, poor prognosis. History of Present Illness History of Present Illness Patient with no acute events reported overnight. continues to be vent dependant Vitals Vitals Vital Signs Date Time Temp Pulse Resp B/P (MAP) Pulse Ox O2 Delivery O2 Flow Rate FiO2 03/11/19 09:26 97 Ventilator 03/11/19 09:04 81 22 140/80 (100) 03/11/19 07:57 99.0 96.0 99.0 Physical Exam Physical Exam GENERAL: Sedated and intubated. HEENT: PERRL, normal conj. ETT. OGT NECK: Supple. LUNGS: Decreased in bases HEART: S1, S2. ABDOMEN: Obese, decreased bowel sounds, no grimace or guarding to palpation GENITOURINARY: [place] - He has 3+ scrotal swelling with less erythema. EXTREMITIES: No clubbing, cyanosis with 2 + edema. Generalized anasarca. RLE stump with chronic wound. No erythema/fluctuance/warmth SKIN: Warm to touch. 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 RIJ General: Other (intubated.) Heart: Regular rate Lungs: Other (decrease bs) Abdomen: Normal bowel sounds Extremities: No cyanosis, Other (ANASARCA) Skin: Other (scale, lower leg ) Labs LABS Laboratory Tests Test 03/10/19 11:26 03/10/19 17:42 03/10/19 23:42 03/11/19 05:20 Glucose (Fingerstick) 315 mg/dL (70-99) 348 mg/dL (70-99) 355 mg/dL (70-99) Sodium Level 148 mmol/L (136-145) Potassium Level 4.6 mmol/L (3.5-5.1) Chloride Level 109 mmol/L (98-107) Carbon Dioxide Level 32 mmol/L (21-32) Anion Gap 7 (6-14) Blood Urea Nitrogen 82 mg/dL (8-26) Creatinine 1.9 mg/dL (0.7-1.3) Estimated GFR (Cockcroft-Gault) 36.9 Glucose Level 309 mg/dL (70-99) Calcium Level 8.7 mg/dL (8.5-10.1) Test 03/11/19 05:22 Glucose (Fingerstick) 270 mg/dL (70-99) Assessment and Plan Assessmemt and Plan Problems Medical Problems: (1) Acute renal failure Status: Acute (2) Edema Status: Acute (3) Shortness of breath Status: Acute Comment Review of Relevant I have reviewed the following items pascual (where applicable) has been applied. Labs Laboratory Tests Test 03/09/19 10:30 03/09/19 17:29 03/10/19 00:24 03/10/19 05:47 Sodium Level 145 mmol/L (136-145) Potassium Level 5.0 mmol/L (3.5-5.1) Chloride Level 106 mmol/L (98-107) Carbon Dioxide Level 33 mmol/L (21-32) Anion Gap 6 (6-14) Blood Urea Nitrogen 75 mg/dL (8-26) Creatinine 2.3 mg/dL (0.7-1.3) Estimated GFR (Cockcroft-Gault) 29.6 Glucose Level 340 mg/dL (70-99) Calcium Level 8.1 mg/dL (8.5-10.1) Glucose (Fingerstick) 390 mg/dL (70-99) 339 mg/dL (70-99) 358 mg/dL (70-99) Test 03/10/19 07:30 03/10/19 11:26 03/10/19 17:42 03/10/19 23:42 O2 Saturation 92 % (92-99) Arterial Blood pH 7.38 (7.35-7.45) Arterial Blood pCO2 at Patient Temp 55 mmHg (35-46) Arterial Blood pO2 at Patient Temp 66 mmHg (75-108) Arterial Blood HCO3 32 mmol/L (21-28) Arterial Blood Base Excess 5 mmol/L (-3-3) FiO2 100 Glucose (Fingerstick) 315 mg/dL (70-99) 348 mg/dL (70-99) 355 mg/dL (70-99) Test 03/11/19 05:20 03/11/19 05:22 Sodium Level 148 mmol/L (136-145) Potassium Level 4.6 mmol/L (3.5-5.1) Chloride Level 109 mmol/L (98-107) Carbon Dioxide Level 32 mmol/L (21-32) Anion Gap 7 (6-14) Blood Urea Nitrogen 82 mg/dL (8-26) Creatinine 1.9 mg/dL (0.7-1.3) Estimated GFR (Cockcroft-Gault) 36.9 Glucose Level 309 mg/dL (70-99) Calcium Level 8.7 mg/dL (8.5-10.1) Glucose (Fingerstick) 270 mg/dL (70-99) Laboratory Tests Test 03/10/19 11:26 03/10/19 17:42 03/10/19 23:42 03/11/19 05:20 Glucose (Fingerstick) 315 mg/dL (70-99) 348 mg/dL (70-99) 355 mg/dL (70-99) Sodium Level 148 mmol/L (136-145) Potassium Level 4.6 mmol/L (3.5-5.1) Chloride Level 109 mmol/L (98-107) Carbon Dioxide Level 32 mmol/L (21-32) Anion Gap 7 (6-14) Blood Urea Nitrogen 82 mg/dL (8-26) Creatinine 1.9 mg/dL (0.7-1.3) Estimated GFR (Cockcroft-Gault) 36.9 Glucose Level 309 mg/dL (70-99) Calcium Level 8.7 mg/dL (8.5-10.1) Test 03/11/19 05:22 Glucose (Fingerstick) 270 mg/dL (70-99) Microbiology 03/05/19 Blood Culture - Final, Complete NO GROWTH AFTER 5 DAYS 03/08/19 - Final, Resulted 03/08/19 - Final, Resulted 03/08/19 - Final, Resulted 03/08/19 Gram Stain Evaluation - Final, Resulted 03/08/19 Sputum Culture - Preliminary, Resulted 03/08/19 Sputum Result 1 - Final, Resulted 03/02/19 Urine Culture - Final, Complete 03/02/19 Urine Culture Result 1 (LUCIO) - Final, Complete Medications Current Medications Ondansetron HCl (Zofran) 4 mg PRN Q8HRS PRN IV NAUSEA/VOMITING; Start 02/27/19 at 16:45; Stop 02/28/19 at 16:44; Status DC Morphine Sulfate (Morphine Sulfate) 2 mg PRN Q2HR PRN IV PAIN; Start 02/27/19 at 16:45; Stop 02/28/19 at 16:44; Status DC Acetaminophen (Tylenol) 650 mg PRN Q4HRS PRN PO FEVER Last administered on 02/27at 21:06; Start 02/27/19 at 16:45; Stop 02/28/19 at 16:44; Status DC Dextrose (Dextrose 50%-Water Syringe) 12.5 gm PRN Q15MIN PRN IV SEE COMMENTS; Start 02/27/19 at 16:45; Stop 03/10/19 at 13:48; Status DC Heparin Sodium (Porcine) (Heparin Sodium) 5,000 unit Q8HRS SQ Last administered on 03/11/19at 05:55; Start 02/27/19 at 17:00 Lorazepam (Ativan) 1 mg PRN Q8HRS PRN IV ANXIETY / AGITATION Last administered on 03/08/19at 03:37; Start 02/28/19 at 02:45 Etomidate (Amidate) 20 mg STK-MED ONCE IV ; Start 02/28/19 at 06:59; Stop at 07:00; Status DC Rocuronium [place] (Zemuron) 50 mg STK-MED ONCE .ROUTE ; Start 02/28/19 at 07:00 ; Stop 02/28/19 at 09:42; Status DC Dopamine HCl/ Dextrose 250 ml @ 12.266 mls/ hr CONT PRN IV SEE I/O RECORD Last administered on 02/28/19at 08:06; Start 02/28/19 at 07:15 Fentanyl Citrate 30 ml @ 0 mls/hr CONT PRN IV SEE PROTOCOL; Start 02/28/19 at 07:15; Stop 02/28/19 at 07:59; Status DC Propofol 100 ml @ 0 mls/hr CONT PRN IV SEE PROTOCOL; Start 02/28/19 at 07:15; Stop 02/28/19 at 07:59; Status DC Fentanyl Citrate (Fentanyl 2ml Vial) 25 mcg PRN Q1HR PRN IV SEE COMMENTS; Start 02/28/19 at 07:15; Stop 02/28/19 at 07:59; Status DC Fentanyl Citrate (Fentanyl 2ml Vial) 50 mcg PRN Q1HR PRN IV SEE COMMENTS; Start 02/28/19 at 07:15; Stop 02/28/19 at 07:59; Status DC Midazolam HCl 100 ml @ 0 mls/hr CONT PRN IV SEE PROTOCOL Last administered on at 08:52; Start 02/28/19 at 07:15 Sodium Chloride 1,000 ml @ 1,000 mls/hr Q1H IV Last administered on 02/28/19at 07:32; Start 02/28/19 at 07:32; Stop 02/28/19 at 10:09; Status DC Fentanyl Citrate (Fentanyl 2ml Vial) 25 mcg PRN Q30MIN PRN IV see comments; Start 02/28/19 at 07:45; Stop 02/28/19 at 09:42; Status DC Lorazepam (Ativan) 1 mg PRN Q30MIN PRN IV SEDATION; Start 02/28/19 at 07:45; Stop 02/28/19 at 09:42; Status DC Fentanyl Citrate 30 ml @ 2.5 mls/hr CONT PRN PRN IV SEE I/O RECORD Last administered on 03/05/19at 03:44; Start 02/28/19 at 07:45; Stop 03/05/19 at 04:40; Status DC Propofol 100 ml @ 0 mls/hr CONT PRN IV SEE I/O RECORD; Start 02/28/19 at 07:45 Vecuronium [place] (Norcuron Bolus) 10 mg PRN Q30MIN PRN IV SHIVERING; Start at 07:45; Stop 02/28/19 at 09:42; Status DC Meperidine HCl (Demerol) 12.5 mg PRN Q30MIN PRN IV SHIVERING; Start 02/28/19 at 07:45; Stop 02/28/19 at 09:42; Status DC Multi-Ingred Cream/Lotion/Oil/ Oint (Artificial Tears Eye Ointment) 1 jennifer PRN Q6HRS PRN OU 0.5 INCH FOR DRY EYE; Start 02/28/19 at 07:45; Stop 02/28/19 at 09 :42; Status DC Famotidine (Pepcid Vial) 20 mg BID IVP Last administered on 02/28/19at 11:03; Start 02/28/19 at 09:00; Stop 02/28/19 at 14:25; Status DC Aspirin (Aspirin) 300 mg DAILY [place] ; Start 02/28/19 at 09:00; Stop 02/28/19 at 09 :42; Status DC Sodium Chloride (Normal Saline Flush) 3 ml QSHIFT PRN IV AFTER MEDS AND BLOOD DRAWS; Start 02/28/19 at 07:45 Acetaminophen (Tylenol) 650 mg Q6HRS NG ; Start 02/28/19 at 12:00; Stop at 12:00; Status DC Acetaminophen (Tylenol Supp) 650 mg PRN Q6HRS PRN [place] MILD PAIN / TEMP; Start at 07:45; Stop 03/01/19 at 07:45; Status DC Acetaminophen (Tylenol) 650 mg PRN Q6HRS PRN NG MILD PAIN / TEMP; Start at 07:45; Stop 03/01/19 at 07:45; Status DC Info (Icu Electrolyte Protocol) 1 ea DAILY PRN MC PER PROTOCOL; Start 03/02/19 at 07:45; Stop 03/02/19 at 07:45; Status DC Furosemide (Lasix) 60 mg 1X ONCE IVP Last administered on 02/28/19at 08:30; Start 02/28/19 at 08:30; Stop 02/28/19 at 08:31; Status DC Ceftriaxone Sodium (Rocephin) 1 gm Q24H IVP Last administered on 02/28/19at 11: 03; Start 02/28/19 at 11:00; Stop 02/28/19 at 11:18; Status DC Calcium Chloride 1000 mg/Dextrose 60 ml @ 120 mls/hr 1X ONCE IV Last administered on 02/28/19at 11:03; Start 02/28/19 at 10:30; Stop 02/28/19 at 10:59 ; Status DC Meropenem 500 mg/ Sodium Chloride 50 ml @ 100 mls/hr Q8HRS IV Last administered on 03/03/19at 06:24; Start 02/28/19 at 14:00; Stop 03/03/19 at 07:04; Status DC Linezolid/Dextrose 300 ml @ 300 mls/hr Q12HR IV Last administered on 03/03/19at 20:00; Start 02/28/19 at 11:30; Stop 03/04/19 at 08:55; Status DC Micafungin Sodium 100 mg/Dextrose 100 ml @ 100 mls/hr Q24H IV Last administered on 03/04/19at 15:53; Start 02/28/19 at 12:00; Stop 03/05/19 at 06:47; Status DC Furosemide (Lasix) 40 mg BID92 IVP Last administered on 03/02/19at 14:06; Start 02/28/19 at 14:00; Stop 03/02/19 at 17:02; Status DC Famotidine (Pepcid Vial) 20 mg QHS IVP Last administered on 03/01/19at 21:24; Start 02/28/19 at 21:00; Stop 03/02/19 at 10:07; Status DC Albuterol/ Ipratropium (Duoneb) 3 ml RTQID NEB Last administered on 03/11/19 09:25; Start 02/28/19 at 16:00 Haloperidol Lactate (Haldol Inj) 5 mg PRN Q6HRS PRN IVP AGITATION 2ND CHOICE Last administered on 03/09/19 14:07; Start 02/28/19 at 15:15 Vecuronium [place] (Norcuron Bolus) 8 mg PRN Q4HRS PRN IV MUSCLE SPASMS Last administered on 03/08/19 17:04; Start 02/28/19 at 15:15 Perflutren Protein Type A Microsphe (Optison) 0.66 mg PRN 1X PRN IV SEE COMMENTS; Start 03/01/19 at 10:00; Stop 03/02/19 at 09:59; Status DC Digoxin (Lanoxin) 125 mcg 1X STAT IV ; Start 03/01/19 at 15:34; Stop 03/01/19 at 16:00; Status DC Sodium Chloride 500 ml @ 500 mls/hr 1X ONCE IV Last administered on 18:46; Start 03/01/19 at 18:45; Stop 03/01/19 at 19:44; Status DC Famotidine (Pepcid Vial) 20 mg Q12HR IVP Last administered on 03/11/19 08:48; Start 03/02/19 at 21:00 Furosemide (Lasix) 40 mg DAILY IVP Last administered on 03/04/19 09:52; Start 03/03/19 at 09:00; Stop 03/04/19 at 12:13; Status DC Acetaminophen (Tylenol Supp) 650 mg PRN Q6HRS PRN [place] MILD PAIN / TEMP Last administered on 03/03/19 17:39; Start 03/02/19 at 17:15 Meropenem 500 mg/ Sodium Chloride 50 ml @ 100 mls/hr Q6HRS IV Last administered on 03/05/19 05:33; Start 03/03/19 at 12:00; Stop 03/05/19 at 06:47; Status DC Albumin Human 100 ml @ 100 mls/hr 1X ONCE IV Last administered on 03/03/19 08 :52; Start 03/03/19 at 08:30; Stop 03/03/19 at 09:29; Status DC Atropine Sulfate (ATROPINE 0.5mg SYRINGE) 2 mg STK-MED ONCE .ROUTE ; Start 02/27 at 16:21; Stop 03/03/19 at 16:22; Status DC Dopamine HCl/ Dextrose (DOPamine 400MG/ 250ML PREMIX) 400 mg STK-MED ONCE IV ; Start 02/27/19 at 16:21; Stop 03/03/19 at 16:22; Status DC Furosemide (Lasix) 40 mg 1X ONCE IVP Last administered on 03/03/19at 18:46; Start 03/03/19 at 18:45; Stop 03/03/19 at 18:46; Status DC Lorazepam 100 mg/ Sodium Chloride 100 ml @ 0 mls/hr CONT PRN IV SEE PROTOCOL Last administered on 03/03/19at 22:18; Start 03/03/19 at 22:00 Acetaminophen (Tylenol) 650 mg PRN Q6HRS PRN [place] MILD PAIN / TEMP Last administered on 03/10/19at 20:48; Start 03/04/19 at 11:45 Furosemide (Lasix) 40 mg BID92 IVP Last administered on 03/06/19 08:38; Start 03/04/19 at 14:00; Stop 03/06/19 at 13:30; Status DC Fentanyl Citrate 30 ml @ 0 mls/hr CONT PRN IV SEE PROTOCOL Last administered on 03/11/19at 07:21; Start 03/05/19 at 04:45 Cefepime HCl (Maxipime) 2 gm Q8HRS IVP Last administered on 03/10/19at 05:43; Start 03/05/19 at 06:45; Stop 03/10/19 at 08:29; Status DC Metronidazole 100 ml @ 100 mls/hr Q8HRS IV Last administered on 03/10/19 05:45 ; Start 03/05/19 at 06:45; Stop 03/10/19 at 08:29; Status DC Linezolid/Dextrose 300 ml @ 300 mls/hr Q12HR IV Last administered on 03/05/19 21:24; Start 03/05/19 at 09:00; Stop 03/06/19 at 06:42; Status DC Metoclopramide HCl (Reglan Vial) 10 mg QIDACHS IV Last administered on 20:43; Start 03/05/19 at 11:30; Stop 03/07/19 at 07:37; Status DC Insulin Glargine (Lantus) 12 units BID SQ Last administered on 03/09/19 09:29; Start 03/05/19 at 09:00; Stop 03/09/19 at 17:11; Status DC Digoxin (Lanoxin) 500 mcg 1X ONCE IV Last administered on 03/06/19at 00:48; Start 03/06/19 at 00:45; Stop 03/06/19 at 00:46; Status DC Metoprolol Tartrate (Lopressor Vial) 5 mg 1X ONCE IVP Last administered on 03/06 00:53; Start 03/06/19 at 00:45; Stop 03/06/19 at 00:46; Status DC Sodium Chloride 500 ml @ 500 mls/hr 1X ONCE IV Last administered on 03/06/19 00:49; Start 03/06/19 at 00:45; Stop 03/06/19 at 01:44; Status DC Nystatin (Mycostatin) 1 jennifer BID TP Last administered on 03/11/19 08:49; Start 03/06/19 at 09:00 Sodium Cl/Sod Bicarb/Potass Cl/ PEG (Golytely) 2,000 ml 1X ONCE PO Last administered on 03/06/19 09:33; Start 03/06/19 at 08:00; Stop 03/06/19 at 08:01; Status DC Furosemide (Lasix) 40 mg DAILY08 IVP Last administered on 03/09/19 09:27; Start 03/07/19 at 08:00; Stop 03/09/19 at 12:45; Status DC Metoprolol Tartrate (Lopressor Vial) 10 mg 1X ONCE IVP Last administered on 16:08; Start 03/06/19 at 15:15; Stop 03/06/19 at 15:16; Status DC Metoprolol Tartrate (Lopressor Vial) 5 mg Q6HRS IVP Last administered on 17:03; Start 03/06/19 at 18:00; Stop 03/07/19 at 18:27; Status DC Aspirin (Children'S Aspirin) 81 mg 1X ONCE PO Last administered on 03/06/19 18 :18; Start 03/06/19 at 17:00; Stop 03/06/19 at 17:01; Status DC Aspirin (Children'S Aspirin) 81 mg DAILYWBKFT PO Last administered on at 08:48; Start 03/07/19 at 08:00 Labetalol HCl (Normodyne Iv Push) 20 mg PRN Q2HR PRN IVP HYPERTENSION, SEE COMMENTS Last administered on 03/06/19 21:29; Start 03/06/19 at 17:15 Digoxin (Lanoxin) 250 mcg 1X ONCE IV Last administered on 03/06/19 22:00; Start 03/06/19 at 22:00; Stop 03/06/19 at 22:01; Status DC Diltiazem HCl 125 mg/Dextrose 125 ml @ 5 mls/hr CONT PRN IV SEE I/O RECORD Last administered on 03/10/19at 11:58; Start 03/06/19 at 23:00 Metoclopramide HCl (Reglan Vial) 10 mg Q6HRS IV ; Start 03/07/19 at 08:00; Stop 03/08/19 at 07:51; Status DC Metoprolol Tartrate (Lopressor Vial) 5 mg Q6HRS IVP Last administered on 05:54; Start 03/08/19 at 12:00 Furosemide (Lasix) 40 mg 1X ONCE IVP Last administered on 03/08/19 21:21; Start 03/08/19 at 21:00; Stop 03/08/19 at 21:01; Status DC Furosemide (Lasix) 20 mg DAILY08 IVP ; Start 03/10/19 at 08:00; Stop 03/10/19 at 08:00; Status DC Furosemide (Lasix) 20 mg DAILY08 IVP Last administered on 03/11/19 08:48; Start 03/10/19 at 08:00 Insulin Glargine (Lantus) 16 units BID SQ Last administered on 03/11/19 08:52 ; Start 03/09/19 at 21:00 Insulin Human Lispro (HumaLOG) 0-9 UNITS Q6HRS SQ Last administered on 05:55; Start 03/09/19 at 18:00 Dextrose (Dextrose 50%-Water Syringe) 12.5 gm PRN Q15MIN PRN IV SEE COMMENTS; Start 03/09/19 at 17:15 Cefepime HCl (Maxipime) 2 gm Q12HR IVP Last administered on 03/11/19at 08:49; Start 03/10/19 at 21:00 Insulin Human Lispro (HumaLOG) 15 units 1X ONCE SQ Last administered on at 00:14; Start 03/11/19 at 00:00; Stop 03/11/19 at 00:01; Status DC Active Scripts Active Reported Proair Hfa Inhaler (Albuterol Sulfate) 8.5 Gm Hfa.aer.ad 1 Puff INH PRN Q6HRS PRN Lantus Solostar (Insulin Glargine,Hum.rec.anlog) 100 Unit/1 Ml Insuln.pen 20 Unit SQ QHS Humalog (Insulin Lispro) 100 Unit/1 Ml Cartridge 6 Unit SQ TIDWMEALS Doxazosin Mesylate 2 Mg Tablet 2 Mg PO DAILY Omeprazole 40 Mg Capsule.dr 40 Mg PO DAILY Amlodipine Besylate 10 Mg Tablet 10 Mg PO DAILY Atorvastatin Calcium 20 Mg Tablet 20 Mg PO DAILY Atenolol 50 Mg Tablet 50 Mg PO DAILY Losartan Potassium 100 Mg Tablet 100 Mg PO DAILY Aspirin 81 Mg Tab.chew 81 Mg PO DAILY Glyburide 5 Mg Tablet 1 Tab PO BID Vitals/I & O Vital Sign - Last 24 Hours 03/10/19 03/10/19 03/10/19 03/10/19 10:00 11:00 11:33 11:45 Pulse 72 66 67 Resp 22 22 B/P (MAP) 137/70 (92) 135/65 (88) 145/68 Pulse Ox 95 96 95 O2 Delivery Ventilator Ventilator Ventilator 03/10/19 03/10/19 03/10/19 03/10/19 11:58 12:00 12:00 13:00 Temp 98.2 98.2 Pulse 72 74 Resp 22 22 B/P (MAP) 141/95 (110) 158/96 (116) Pulse Ox 96 96 O2 Delivery Ventilator Ventilator Mechanical Ventilator Ventilator 03/10/19 03/10/19 03/10/19 03/10/19 13:50 14:00 15:00 16:00 Temp 98.9 98.9 Pulse 74 72 70 Resp 22 22 22 B/P (MAP) 167/81 (109) 147/81 (103) 151/80 (103) Pulse Ox 95 96 95 96 O2 Delivery Ventilator Ventilator Ventilator Ventilator 03/10/19 03/10/19 03/10/19 03/10/19 16:00 16:26 17:00 17:09 Pulse 82 Resp 22 B/P (MAP) 169/98 (121) Pulse Ox 96 98 O2 Delivery Mechanical Ventilator Ventilator Ventilator Ventilator 03/10/19 03/10/19 03/10/19 03/10/19 17:43 18:00 19:00 20:00 Pulse 79 76 78 Resp 22 22 B/P (MAP) 157/87 169/95 (119) 172/96 (121) Pulse Ox 94 95 O2 Delivery Ventilator Ventilator Mechanical Ventilator 03/10/19 03/10/19 03/10/19 03/10/19 20:00 20:05 21:00 21:31 Temp 99.5 99.5 Pulse 78 80 Resp 22 B/P (MAP) 172/96 (121) 150/79 (102) Pulse Ox 95 96 98 97 O2 Delivery Ventilator Ventilator Ventilator Ventilator 03/10/19 03/10/19 03/10/19 03/10/19 22:00 23:00 23:05 23:41 Pulse 76 73 73 Resp 29 B/P (MAP) 149/75 (99) 137/72 (93) 115/63 Pulse Ox 97 97 96 O2 Delivery Ventilator Ventilator Ventilator 03/11/19 03/11/19 03/11/19 03/11/19 00:00 00:00 01:00 01:15 Temp 98.6 98.6 Pulse 70 69 Resp 28 B/P (MAP) 125/68 (87) 131/67 (88) Pulse Ox 97 97 97 O2 Delivery Ventilator Mechanical Ventilator Ventilator Ventilator 03/11/19 03/11/19 03/11/19 03/11/19 02:00 02:38 03:00 04:00 Temp 99.0 99.0 Pulse 71 74 78 Resp 27 25 27 28 B/P (MAP) 125/64 (84) 139/71 (93) 158/87 (110) Pulse Ox 97 97 95 95 O2 Delivery Ventilator Ventilator Ventilator Ventilator 03/11/19 03/11/19 03/11/19 03/11/19 04:00 04:00 05:00 05:30 Pulse 75 Resp 26 B/P (MAP) 136/70 (92) Pulse Ox 95 97 97 O2 Delivery Mechanical Ventilator Ventilator Ventilator Ventilator 03/11/19 03/11/19 03/11/19 03/11/19 05:54 06:00 07:13 07:21 Pulse 73 70 72 Resp 29 22 22 B/P (MAP) 132/62 155/66 (95) 148/79 (102) Pulse Ox 97 96 95 O2 Delivery Ventilator Ventilator Ventilator O2 Flow Rate 99.0 03/11/19 03/11/19 03/11/19 03/11/19 07:51 07:57 08:08 09:04 Temp 99.0 99.0 Pulse 71 81 Resp 22 22 22 B/P (MAP) 176/81 (112) 140/80 (100) Pulse Ox 92 96 92 O2 Delivery Ventilator Ventilator Mechanical Ventilator Ventilator O2 Flow Rate 96.0 03/11/19 09:26 Pulse Ox 97 O2 Delivery Ventilator Intake and Output 03/10/19 03/10/19 03/11/19 15:00 23:00 07:00 Intake Total 630 ml 2225.02 ml 990 ml Output Total 710 ml 450 ml 420 ml Balance -80 ml 1775.02 ml 570 ml MICHAEL BURRIS MD Mar 11, 2019 09:32
--- NOTE | 2019-03-11 09:48 | PDOC ---
PULMONARY PROGRESS NOTES Subjective ON AC MODE SEDATED 100% FIO2/12 PEEP Vitals Vital Signs Date Time Temp Pulse Resp B/P (MAP) Pulse Ox O2 Delivery O2 Flow Rate FiO2 03/11/19 09:26 97 Ventilator 03/11/19 09:04 81 22 140/80 (100) 03/11/19 07:57 99.0 96.0 99.0 Lungs: Other (decrease bs) Cardiovascular: S1, S2, Other (decrease bs) Abdomen: Soft, Non-tender, Other (OBESE no mass) Extremities: Other (venous stasis left, right BKA) Skin: Warm Labs Laboratory Tests Test 03/09/19 10:30 03/09/19 17:29 03/10/19 00:24 03/10/19 05:47 Sodium Level 145 mmol/L (136-145) Potassium Level 5.0 mmol/L (3.5-5.1) Chloride Level 106 mmol/L (98-107) Carbon Dioxide Level 33 mmol/L (21-32) Anion Gap 6 (6-14) Blood Urea Nitrogen 75 mg/dL (8-26) Creatinine 2.3 mg/dL (0.7-1.3) Estimated GFR (Cockcroft-Gault) 29.6 Glucose Level 340 mg/dL (70-99) Calcium Level 8.1 mg/dL (8.5-10.1) Glucose (Fingerstick) 390 mg/dL (70-99) 339 mg/dL (70-99) 358 mg/dL (70-99) Test 03/10/19 07:30 03/10/19 11:26 03/10/19 17:42 03/10/19 23:42 O2 Saturation 92 % (92-99) Arterial Blood pH 7.38 (7.35-7.45) Arterial Blood pCO2 at Patient Temp 55 mmHg (35-46) Arterial Blood pO2 at Patient Temp 66 mmHg (75-108) Arterial Blood HCO3 32 mmol/L (21-28) Arterial Blood Base Excess 5 mmol/L (-3-3) FiO2 100 Glucose (Fingerstick) 315 mg/dL (70-99) 348 mg/dL (70-99) 355 mg/dL (70-99) Test 03/11/19 05:20 03/11/19 05:22 Sodium Level 148 mmol/L (136-145) Potassium Level 4.6 mmol/L (3.5-5.1) Chloride Level 109 mmol/L (98-107) Carbon Dioxide Level 32 mmol/L (21-32) Anion Gap 7 (6-14) Blood Urea Nitrogen 82 mg/dL (8-26) Creatinine 1.9 mg/dL (0.7-1.3) Estimated GFR (Cockcroft-Gault) 36.9 Glucose Level 309 mg/dL (70-99) Calcium Level 8.7 mg/dL (8.5-10.1) Glucose (Fingerstick) 270 mg/dL (70-99) Laboratory Tests Test 03/10/19 11:26 03/10/19 17:42 03/10/19 23:42 03/11/19 05:20 Glucose (Fingerstick) 315 mg/dL (70-99) 348 mg/dL (70-99) 355 mg/dL (70-99) Sodium Level 148 mmol/L (136-145) Potassium Level 4.6 mmol/L (3.5-5.1) Chloride Level 109 mmol/L (98-107) Carbon Dioxide Level 32 mmol/L (21-32) Anion Gap 7 (6-14) Blood Urea Nitrogen 82 mg/dL (8-26) Creatinine 1.9 mg/dL (0.7-1.3) Estimated GFR (Cockcroft-Gault) 36.9 Glucose Level 309 mg/dL (70-99) Calcium Level 8.7 mg/dL (8.5-10.1) Test 03/11/19 05:22 Glucose (Fingerstick) 270 mg/dL (70-99) Medications Active Scripts Medications Dose Route/Sig Max Daily Dose Days Date Category Proair Hfa Inhaler (Albuterol Sulfate) 8.5 Gm Hfa.aer.ad 1 Puff INH PRN Q6HRS PRN 02/27/19 Reported Lantus Solostar (Insulin Glargine,Hum.rec.anlog) 100 Unit/1 Ml Insuln.pen 20 Unit SQ QHS 02/27/19 Reported Humalog (Insulin Lispro) 100 Unit/1 Ml Cartridge 6 Unit SQ TIDWMEALS 02/27/19 Reported Doxazosin Mesylate 2 Mg Tablet 2 Mg PO DAILY 02/27/19 Reported Omeprazole 40 Mg Capsule.dr 40 Mg PO DAILY 02/27/19 Reported Amlodipine Besylate 10 Mg Tablet 10 Mg PO DAILY 02/27/19 Reported Atorvastatin Calcium 20 Mg Tablet 20 Mg PO DAILY 02/27/19 Reported Atenolol 50 Mg Tablet 50 Mg PO DAILY 02/27/19 Reported Losartan Potassium 100 Mg Tablet 100 Mg PO DAILY 02/27/19 Reported Aspirin 81 Mg Tab.chew 81 Mg PO DAILY 02/27/19 Reported Glyburide 5 Mg Tablet 1 Tab PO BID 11/09/16 Reported Comments CXR REVIEWED Impression . 1. Acute hypoxemic /hypercapnic respiratory failure./ ARDS 2. sepsis./ ARDS 3. In-house cardiopulmonary arrest. 4. Normal EF / mild Pulmonary HTN 5. Acute on chronic right-sided heart failure. 6. Possible pneumonia. 7. Morbid obesity. 8. Diabetes. 9. ANASARCA 10. Abnormal CXR <Conclusion>ECHO The left ventricular systolic function is normal. The ejection fraction is 60-65%. There is normal LV segmental wall motion. Transmitral Doppler flow pattern is Grade I-abnormal relaxation pattern. Trace tricuspid regurgitation. Estimated PAP 33-38 mmHg. There is no evidence of significant pericardial effusion. VENOUS 02/28 Impression: 1. There is no evidence of deep venous thrombosis from the bilateral common femoral to popliteal veins. 2. There is nonspecific right groin lymph node. Plan . AC MODE ,12 PEEP [id number]% FI02 NOT MUCH TO ADD ANITBX PER ID lasix pre nephro, bilateral venous Dopplers of lower extremities.NEG DVT and GI prophylaxis. Follow Cardiology.rec Enteral nutrition Follow cxr elevate hob DNR now Will re-discuss goals of care Saturday ALEJANDRINA WILBURN MD Mar 11, 2019 09:48
[2019-03-11 09:51] LABS: FIO2 ABG 100; PCO2 ABG 61 mmHg (35-46)
--- NOTE | 2019-03-11 09:52 | PDOC ---
SUBJECTIVE Subjective Intubated and sedated. Nursing has no concerns for Urology OBJECTIVE Objective Physical Exam: General appearance: + Intubated and sedated. Head: Normocephalic, without obvious abnormality Lungs: Regular respirations with machine assistance. Abdomen: soft, non-tender. Bowel sounds normal. No masses, no organomegaly Pelvic: Buried phallus with swollen scrotum and no open areas noted , + Coburn catheter in place draining clear yellow urine. Device in good working order. Vital Signs Vital Signs Date Time Temp Pulse Resp B/P (MAP) Pulse Ox O2 Delivery O2 Flow Rate FiO2 03/11/19 09:26 97 Ventilator 03/11/19 09:04 81 22 140/80 (100) 92 Ventilator 03/11/19 08:08 Mechanical Ventilator 03/11/19 07:57 99.0 71 22 176/81 (112) 96 Ventilator 96.0 99.0 03/11/19 07:51 22 92 Ventilator 03/11/19 07:21 22 95 Ventilator 99.0 03/11/19 07:13 72 22 148/79 (102) 96 Ventilator 03/11/19 06:00 70 29 155/66 (95) 97 Ventilator 03/11/19 05:54 73 132/62 03/11/19 05:30 97 Ventilator 03/11/19 05:00 75 26 136/70 (92) 97 Ventilator 03/11/19 04:00 95 Ventilator 03/11/19 04:00 Mechanical Ventilator 03/11/19 04:00 99.0 78 28 158/87 (110) 95 Ventilator 99.0 03/11/19 03:00 74 27 139/71 (93) 95 Ventilator 03/11/19 02:38 25 97 Ventilator 03/11/19 02:00 71 27 125/64 (84) 97 Ventilator 03/11/19 01:15 97 Ventilator 03/11/19 01:00 69 28 131/67 (88) 97 Ventilator 03/11/19 00:00 Mechanical Ventilator 03/11/19 00:00 98.6 70 29 125/68 (87) 97 Ventilator 98.6 03/10/19 23:41 73 115/63 03/10/19 23:05 96 Ventilator 03/10/19 23:00 73 29 137/72 (93) 97 Ventilator 03/10/19 22:00 76 26 149/75 (99) 97 Ventilator 03/10/19 21:31 22 97 Ventilator 03/10/19 21:00 80 22 150/79 (102) 98 Ventilator 03/10/19 20:05 96 Ventilator 03/10/19 20:00 99.5 78 22 172/96 (121) 95 Ventilator 99.5 03/10/19 20:00 Mechanical Ventilator 03/10/19 19:00 78 22 172/96 (121) 95 Ventilator 03/10/19 18:00 76 22 169/95 (119) 94 Ventilator 03/10/19 17:43 79 157/87 03/10/19 17:09 Ventilator 03/10/19 17:00 82 22 169/98 (121) 98 Ventilator 03/10/19 16:26 96 Ventilator 03/10/19 16:00 Mechanical Ventilator 03/10/19 16:00 98.9 70 22 151/80 (103) 96 Ventilator 98.9 03/10/19 15:00 72 22 147/81 (103) 95 Ventilator 03/10/19 14:00 74 22 167/81 (109) 96 Ventilator 03/10/19 13:50 95 Ventilator 03/10/19 13:00 74 22 158/96 (116) 96 Ventilator 03/10/19 12:00 Mechanical Ventilator 03/10/19 12:00 98.2 72 22 141/95 (110) 96 Ventilator 98.2 03/10/19 11:58 Ventilator 03/10/19 11:45 95 Ventilator 03/10/19 11:33 67 145/68 03/10/19 11:00 66 22 135/65 (88) 96 Ventilator 03/10/19 10:00 72 22 137/70 (92) 95 Ventilator I & O Intake and Output 03/11/19 06:59 Intake Total 3845.02 ml Output Total 1630 ml Balance 2215.02 ml IV Total 459.02 ml Tube Feeding 2936 ml Other 450 ml Output Urine Total 1630 ml Gastric Drainage Total 0 ml # Bowel Movements 2 PHYSICAL EXAM Physical Exam Physical Exam: General appearance: + Intubated and sedated. Head: Normocephalic, without obvious abnormality Lungs: Regular respirations with machine assistance. Abdomen: soft, non-tender. Bowel sounds normal. No masses, no organomegaly Pelvic: Buried phallus with swollen scrotum and no open areas noted , + Coburn catheter in place draining clear yellow urine. Device in good working order. ASSESSMENT/PLAN Assessment/Plan Scrotal swelling is showing improvement since check on Saturday. Continue diaphoresis; scrotal swelling should continue to improve with this. Nursing to continue to maintain Coburn catheter. No acute concerns found on scrotal US. Will continue to follow peripherall COMMENT Lab Laboratory Tests Test 03/10/19 11:26 03/10/19 17:42 03/10/19 23:42 03/11/19 05:20 Glucose (Fingerstick) 315 mg/dL (70-99) 348 mg/dL (70-99) 355 mg/dL (70-99) Sodium Level 148 mmol/L (136-145) Potassium Level 4.6 mmol/L (3.5-5.1) Chloride Level 109 mmol/L (98-107) Carbon Dioxide Level 32 mmol/L (21-32) Anion Gap 7 (6-14) Blood Urea Nitrogen 82 mg/dL (8-26) Creatinine 1.9 mg/dL (0.7-1.3) Estimated GFR (Cockcroft-Gault) 36.9 Glucose Level 309 mg/dL (70-99) Calcium Level 8.7 mg/dL (8.5-10.1) Test 03/11/19 05:22 Glucose (Fingerstick) 270 mg/dL (70-99) CHRIS CHAVEZ APRN Mar 11, 2019 09:52
[2019-03-11] MEDS: dilTIAZem INJ 125 MG in IV DEXTROSE 5% 100ML 100 ML IV PRN (11:48)
--- NOTE | 2019-03-11 12:21 | NUR ---
SS following up with discharge planning. SS phoned and faxed clinical updates to [facility], ; [phone]. Pt is accepted pending insurance authorization. SS will continue to follow for discharge planning.
[2019-03-12] VITALS (23 sets, daily range): BP systolic 115–170; BP diastolic 53–101
[2019-03-12] MEDS: METOPROLOL TARTRATE 5 MG/5 ML VIAL. IVP SCH ×5 (00:04→23:59)
[2019-03-12] MEDS: INSULIN GLARGINE 300 UNITS/3 ML INSULN.PEN. SQ SCH ×3 (00:09→21:28)
[2019-03-12] MEDS: INSULIN LISPRO 300 UNITS/3 ML INSULN.PEN. SQ SCH ×4 (00:11→17:21)
[2019-03-12] MEDS: MIDAZOLAM 100mg/100ml NS BAG 100 ML IV PRN ×3 (04:02→21:03)
--- NOTE | 2019-03-12 05:31 | RAD ---
EXAM: AP View of the chest DATE: 03/12/2019 5:09 AM INDICATION: et tube placement COMPARISON: 03/11/2019, 03/10/2019 FINDINGS/ IMPRESSION: ET tube tip terminates approximately 5 cm above the armani. Enteric tube extends below the diaphragm the tip is not visualized. Stable moderate cardiomegaly. Bilateral parenchymal airspace opacities and pleural effusions are also grossly unchanged accounting for differences in positioning/technique. No definite pneumothorax Electronically signed by: Taqueria Ness MD (03/12/2019 5:27 AM) [email or web address]
[2019-03-12] MEDS: HEPARIN for SUB-Q USE 5,000 UNIT/ML VIAL. SQ SCH ×3 (05:46→21:39)
[2019-03-12] MEDS: ASPIRIN CHEWABLE 81 MG TABLET. PO SCH (08:03)
[2019-03-12] MEDS: FAMOTIDINE 20 MG/2 ML VIAL IVP SCH ×2 (08:08→21:01)
[2019-03-12] MEDS: CEFEPIME HCL IV Push 2 GM VIAL. IVP SCH ×2 (08:09→21:01)
[2019-03-12] MEDS: NYSTATIN 100,000 UNIT/GM TOPICAL CREAM 15GM TUBE. TP SCH ×2 (08:09→21:02)
[2019-03-12] MEDS: FUROSEMIDE 20 MG/2 ML VIAL. IVP SCH (08:09)
--- NOTE | 2019-03-12 08:16 | PDOC ---
Infectious Disease Note Subjective Subjective Sedated Intubated TPN ROS ROS no fever, vomiting or diarrhea Vital Sign Vital Signs Vital Signs Date Time Temp Pulse Resp B/P (MAP) Pulse Ox O2 Delivery O2 Flow Rate FiO2 03/12/19 08:10 Ventilator 03/12/19 08:08 95 03/12/19 07:00 72 22 140/76 (97) 03/12/19 04:33 96.0 03/12/19 04:00 98.2 98.2 Physical Exam PHYSICAL EXAM GENERAL: Sedated and intubated. HEENT: PERRL, normal conj. ETT. OGT NECK: Supple. LUNGS: Decreased in bases HEART: S1, S2. ABDOMEN: Obese, decreased bowel sounds, no grimace or guarding to palpation GENITOURINARY: Coburn - He has 3+ scrotal swelling with less erythema. EXTREMITIES: No clubbing, cyanosis with 2 + edema. Generalized anasarca. RLE stump with chronic wound. No erythema/fluctuance/warmth SKIN: Warm to touch. 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 groin [employer]: Sedated RIJ Labs Lab Laboratory Tests Test 03/11/19 09:15 03/11/19 11:50 03/11/19 18:07 03/12/19 00:01 O2 Saturation 92 % (92-99) Arterial Blood pH 7.35 (7.35-7.45) Arterial Blood pH (Temp corrected) 7.35 Arterial Blood pCO2 at Patient Temp 61 mmHg (35-46) Arterial Blood pCO2 (Temp correct) 61 mmHg Arterial Blood pO2 at Patient Temp 68 mmHg (75-108) Arterial Blood pO2 (Temp corrected) 68 mmHg Arterial Blood HCO3 33 mmol/L (21-28) Arterial Blood Base Excess 5 mmol/L (-3-3) FiO2 100 Glucose (Fingerstick) 307 mg/dL (70-99) 316 mg/dL (70-99) 295 mg/dL (70-99) Test 03/12/19 05:42 Glucose (Fingerstick) 301 mg/dL (70-99) Micro Microbiology 03/05/19 Blood Culture - Preliminary, Resulted NO GROWTH AFTER 3 DAYS 03/05/19 - Final, Complete 03/05/19 - Final, Complete 03/05/19 - Final, Complete 03/05/19 Gram Stain Evaluation - Final, Complete 03/05/19 Sputum Culture - Final, Complete 03/05/19 Sputum Result 1 - Final, Complete 03/02/19 Urine Culture - Final, Complete 03/02/19 Urine Culture Result 1 (LUCIO) - Final, Complete Objective Assessment Fever - improved Flank rash - no Eosinophilia but ? drug - had been on micafungin so less likely yeast Tachycardia - s/p Bolus/Digoxin and Metoprolol Increased GI residuals - Has been on/off ? Ileus vs DM gastroparesis Acute respiratory failure, intubated, increased infiltrates today - ARDS Scrotal edema/cellulitis. Status post code. Fluid overload - mild increase Acute kidney injury Distant history of group B strep, Acinetobacter, Porphyromonas, plus anaerobes. ARDS Plan Plan of Care Cefepime/ Nystatin F/u labs/cults Supportive care Critically ill prognosis poor HEIDY RAMIREZ MD Mar 12, 2019 08:16
[2019-03-12] MEDS: dilTIAZem INJ 125 MG in IV DEXTROSE 5% 100ML 100 ML IV PRN (08:20)
[2019-03-12 08:34] LABS: BASE EXCESS ABG 5 mmol/L (-3-3); HCO3 ABG 30 mmol/L (21-28); PCO2 ABG 48 mmHg (35-46); PO2 ABG 66 mmHg (75-108); SAT O2 ABG 93 % (92-99)
--- NOTE | 2019-03-12 08:52 | PDOC ---
PROGRESS NOTES Chief Complaint Chief Complaint Assessment/Plan ACUTE RESP ARREST POST CODE ON FLOOR 02/27 Acute respiratory failure secondary to congestive heart failure, most probably acute on chronic diastolic. s/p intubation. Myocardial infarction ruled out. Hypernatremia secondary to severe dehydration will need to provide water flushes in order to correct electrolyte disturbance. High residuals on tube feedings no evidence of obstructive pattern on x ray done 03/05/2019 3 weeks of bilateral general scrotal swelling and tenderness. +dyspnea, abd swelling, leg swelling. POA, Dm2 obesity, extreme, morbid hx RLE BKA RLE stump with chronic wound. No erythema/warmth left foot nail onychomycosis needs attention when more clinically stable Acute renal failure ATN Renal CONSULT 3.1-1.8 chronic venous insuff left lower leg nonspecific perinephric stranding with slight asymmetric stranding adjacent to the left renal pelvis. Findings may be due to chronic kidney disease, though ascending urinary tract infection is not excluded. Bilateral lower lobe consolidation concerning for multifocal pneumonia aspiration not excluded. Right renal hypodensity measuring 2.5 cm is incompletely evaluated on noncontrast examination. Follow-up MRI or CT abdomen and pelvis renal protocol with contrast is recommended for further evaluation. Anasarca. bilateral external iliac lymphadenopathy, may be reactive, though follow-up CT abdomen and pelvis in 3 months is recommended to assess for stability/resolution. Nonobstructive left nephrolithiasis. Coronary artery calcifications. The left ventricular systolic function is normal.ejection fraction is 60-65% .normal LV segmental wall motion. Transmitral Doppler flow pattern is Grade I-abnormal relaxation pattern. Trace tricuspid regurgitation. Estimated PAP 33-38 mmHg. PLAN continue with supportive measures ventilatory support still requiring [id number] oxygen and over 10 of PEEP, poor prognosis, Dr Vinson will address on Saturday if patient does not have improvement, he has been on support for 10 days now follow recommendations from jd edwards consultant. UROLOGY CONSULT reviewed no intervention needed except for elevation and diuresis ID CONSULT continue wtih antibiotic as per ID ECHO noted critically ill, poor prognosis. History of Present Illness History of Present Illness Patient with no acute events reported overnight. continues to be vent dependant Vitals Vitals Vital Signs Date Time Temp Pulse Resp B/P (MAP) Pulse Ox O2 Delivery O2 Flow Rate FiO2 03/12/19 08:10 Ventilator 03/12/19 08:08 95 03/12/19 07:00 72 22 140/76 (97) 03/12/19 04:33 96.0 03/12/19 04:00 98.2 98.2 Physical Exam Physical Exam GENERAL: Sedated and intubated. HEENT: PERRL, normal conj. ETT. OGT NECK: Supple. LUNGS: Decreased in bases HEART: S1, S2. ABDOMEN: Obese, decreased bowel sounds, no grimace or guarding to palpation GENITOURINARY: [place] - He has 3+ scrotal swelling with less erythema. EXTREMITIES: No clubbing, cyanosis with 2 + edema. Generalized anasarca. RLE stump with chronic wound. No erythema/fluctuance/warmth SKIN: Warm to touch. 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 groin HANDLE TURNER: Sedated RIJ General: Other (intubated.) Heart: Regular rate Lungs: Other (decrease bs) Abdomen: Normal bowel sounds Extremities: No cyanosis, Other (ANASARCA) Skin: Other (scale, lower leg ) Labs LABS Laboratory Tests Test 03/11/19 09:15 03/11/19 11:50 03/11/19 18:07 03/12/19 00:01 O2 Saturation 92 % (92-99) Arterial Blood pH 7.35 (7.35-7.45) Arterial Blood pH (Temp corrected) 7.35 Arterial Blood pCO2 at Patient Temp 61 mmHg (35-46) Arterial Blood pCO2 (Temp correct) 61 mmHg Arterial Blood pO2 at Patient Temp 68 mmHg (75-108) Arterial Blood pO2 (Temp corrected) 68 mmHg Arterial Blood HCO3 33 mmol/L (21-28) Arterial Blood Base Excess 5 mmol/L (-3-3) FiO2 100 Glucose (Fingerstick) 307 mg/dL (70-99) 316 mg/dL (70-99) 295 mg/dL (70-99) Test 03/12/19 05:42 Glucose (Fingerstick) 301 mg/dL (70-99) Assessment and Plan Assessmemt and Plan Problems Medical Problems: (1) Acute renal failure Status: Acute (2) Edema Status: Acute (3) Shortness of breath Status: Acute Comment Review of Relevant I have reviewed the following items pascual (where applicable) has been applied. Labs Laboratory Tests Test 03/10/19 11:26 03/10/19 17:42 03/10/19 23:42 03/11/19 05:20 Glucose (Fingerstick) 315 mg/dL (70-99) 348 mg/dL (70-99) 355 mg/dL (70-99) Sodium Level 148 mmol/L (136-145) Potassium Level 4.6 mmol/L (3.5-5.1) Chloride Level 109 mmol/L (98-107) Carbon Dioxide Level 32 mmol/L (21-32) Anion Gap 7 (6-14) Blood Urea Nitrogen 82 mg/dL (8-26) Creatinine 1.9 mg/dL (0.7-1.3) Estimated GFR (Cockcroft-Gault) 36.9 Glucose Level 309 mg/dL (70-99) Calcium Level 8.7 mg/dL (8.5-10.1) Test 03/11/19 05:22 03/11/19 09:15 03/11/19 11:50 03/11/19 18:07 Glucose (Fingerstick) 270 mg/dL (70-99) 307 mg/dL (70-99) 316 mg/dL (70-99) O2 Saturation 92 % (92-99) Arterial Blood pH 7.35 (7.35-7.45) Arterial Blood pH (Temp corrected) 7.35 Arterial Blood pCO2 at Patient Temp 61 mmHg (35-46) Arterial Blood pCO2 (Temp correct) 61 mmHg Arterial Blood pO2 at Patient Temp 68 mmHg (75-108) Arterial Blood pO2 (Temp corrected) 68 mmHg Arterial Blood HCO3 33 mmol/L (21-28) Arterial Blood Base Excess 5 mmol/L (-3-3) FiO2 100 Test 03/12/19 00:01 03/12/19 05:42 Glucose (Fingerstick) 295 mg/dL (70-99) 301 mg/dL (70-99) Laboratory Tests Test 03/11/19 09:15 03/11/19 11:50 03/11/19 18:07 03/12/19 00:01 O2 Saturation 92 % (92-99) Arterial Blood pH 7.35 (7.35-7.45) Arterial Blood pH (Temp corrected) 7.35 Arterial Blood pCO2 at Patient Temp 61 mmHg (35-46) Arterial Blood pCO2 (Temp correct) 61 mmHg Arterial Blood pO2 at Patient Temp 68 mmHg (75-108) Arterial Blood pO2 (Temp corrected) 68 mmHg Arterial Blood HCO3 33 mmol/L (21-28) Arterial Blood Base Excess 5 mmol/L (-3-3) FiO2 100 Glucose (Fingerstick) 307 mg/dL (70-99) 316 mg/dL (70-99) 295 mg/dL (70-99) Test 03/12/19 05:42 Glucose (Fingerstick) 301 mg/dL (70-99) Microbiology 03/05/19 Blood Culture - Final, Complete NO GROWTH AFTER 5 DAYS 03/08/19 - Final, Complete 03/08/19 - Final, Complete 03/08/19 - Final, Complete 03/08/19 Gram Stain Evaluation - Final, Complete 03/08/19 Sputum Culture - Final, Complete 03/08/19 Sputum Result 1 - Final, Complete 03/02/19 Urine Culture - Final, Complete 03/02/19 Urine Culture Result 1 (LUCIO) - Final, Complete Medications Current Medications Ondansetron HCl (Zofran) 4 mg PRN Q8HRS PRN IV NAUSEA/VOMITING; Start 02/27/19 at 16:45; Stop 02/28/19 at 16:44; Status DC Morphine Sulfate (Morphine Sulfate) 2 mg PRN Q2HR PRN IV PAIN; Start 02/27/19 at 16:45; Stop 02/28/19 at 16:44; Status DC Acetaminophen (Tylenol) 650 mg PRN Q4HRS PRN PO FEVER Last administered on 02/27at 21:06; Start 02/27/19 at 16:45; Stop 02/28/19 at 16:44; Status DC Dextrose (Dextrose 50%-Water Syringe) 12.5 gm PRN Q15MIN PRN IV SEE COMMENTS; Start 02/27/19 at 16:45; Stop 03/10/19 at 13:48; Status DC Heparin Sodium (Porcine) (Heparin Sodium) 5,000 unit Q8HRS SQ Last administered on 03/12/19at 05:46; Start 02/27/19 at 17:00 Lorazepam (Ativan) 1 mg PRN Q8HRS PRN IV ANXIETY / AGITATION Last administered on 03/08/19at 03:37; Start 02/28/19 at 02:45 Etomidate (Amidate) 20 mg STK-MED ONCE IV ; Start 02/28/19 at 06:59; Stop at 07:00; Status DC Rocuronium Bradford (Zemuron) 50 mg STK-MED ONCE .ROUTE ; Start 02/28/19 at 07:00 ; Stop 02/28/19 at 09:42; Status DC Dopamine HCl/ Dextrose 250 ml @ 12.266 mls/ hr CONT PRN IV SEE I/O RECORD Last administered on 02/28/19at 08:06; Start 02/28/19 at 07:15 Fentanyl Citrate 30 ml @ 0 mls/hr CONT PRN IV SEE PROTOCOL; Start 02/28/19 at 07:15; Stop 02/28/19 at 07:59; Status DC Propofol 100 ml @ 0 mls/hr CONT PRN IV SEE PROTOCOL; Start 02/28/19 at 07:15; Stop 02/28/19 at 07:59; Status DC Fentanyl Citrate (Fentanyl 2ml Vial) 25 mcg PRN Q1HR PRN IV SEE COMMENTS; Start 02/28/19 at 07:15; Stop 02/28/19 at 07:59; Status DC Fentanyl Citrate (Fentanyl 2ml Vial) 50 mcg PRN Q1HR PRN IV SEE COMMENTS; Start 02/28/19 at 07:15; Stop 02/28/19 at 07:59; Status DC Midazolam HCl 100 ml @ 0 mls/hr CONT PRN IV SEE PROTOCOL Last administered on at 04:02; Start 02/28/19 at 07:15 Sodium Chloride 1,000 ml @ 1,000 mls/hr Q1H IV Last administered on 02/28/19at 07:32; Start 02/28/19 at 07:32; Stop 02/28/19 at 10:09; Status DC Fentanyl Citrate (Fentanyl 2ml Vial) 25 mcg PRN Q30MIN PRN IV see comments; Start 02/28/19 at 07:45; Stop 02/28/19 at 09:42; Status DC Lorazepam (Ativan) 1 mg PRN Q30MIN PRN IV SEDATION; Start 02/28/19 at 07:45; Stop 02/28/19 at 09:42; Status DC Fentanyl Citrate 30 ml @ 2.5 mls/hr CONT PRN PRN IV SEE I/O RECORD Last administered on 03/05/19at 03:44; Start 02/28/19 at 07:45; Stop 03/05/19 at 04:40; Status DC Propofol 100 ml @ 0 mls/hr CONT PRN IV SEE I/O RECORD; Start 02/28/19 at 07:45 Vecuronium Bradford (Norcuron Bolus) 10 mg PRN Q30MIN PRN IV SHIVERING; Start at 07:45; Stop 02/28/19 at 09:42; Status DC Meperidine HCl (Demerol) 12.5 mg PRN Q30MIN PRN IV SHIVERING; Start 02/28/19 at 07:45; Stop 02/28/19 at 09:42; Status DC Multi-Ingred Cream/Lotion/Oil/ Oint (Artificial Tears Eye Ointment) 1 jennifer PRN Q6HRS PRN OU 0.5 INCH FOR DRY EYE; Start 02/28/19 at 07:45; Stop 02/28/19 at 09 :42; Status DC Famotidine (Pepcid Vial) 20 mg BID IVP Last administered on 02/28/19at 11:03; Start 02/28/19 at 09:00; Stop 02/28/19 at 14:25; Status DC Aspirin (Aspirin) 300 mg DAILY MD ; Start 02/28/19 at 09:00; Stop 02/28/19 at 09 :42; Status DC Sodium Chloride (Normal Saline Flush) 3 ml QSHIFT PRN IV AFTER MEDS AND BLOOD DRAWS; Start 02/28/19 at 07:45 Acetaminophen (Tylenol) 650 mg Q6HRS NG ; Start 02/28/19 at 12:00; Stop at 12:00; Status DC Acetaminophen (Tylenol Supp) 650 mg PRN Q6HRS PRN MD MILD PAIN / TEMP; Start at 07:45; Stop 03/01/19 at 07:45; Status DC Acetaminophen (Tylenol) 650 mg PRN Q6HRS PRN NG MILD PAIN / TEMP; Start at 07:45; Stop 03/01/19 at 07:45; Status DC Info (Icu Electrolyte Protocol) 1 ea DAILY PRN MC PER PROTOCOL; Start 03/02/19 at 07:45; Stop 03/02/19 at 07:45; Status DC Furosemide (Lasix) 60 mg 1X ONCE IVP Last administered on 02/28/19 08:30; Start 02/28/19 at 08:30; Stop 02/28/19 at 08:31; Status DC Ceftriaxone Sodium (Rocephin) 1 gm Q24H IVP Last administered on 02/28/19 11: 03; Start 02/28/19 at 11:00; Stop 02/28/19 at 11:18; Status DC Calcium Chloride 1000 mg/Dextrose 60 ml @ 120 mls/hr 1X ONCE IV Last administered on 02/28/19at 11:03; Start 02/28/19 at 10:30; Stop 02/28/19 at 10:59 ; Status DC Meropenem 500 mg/ Sodium Chloride 50 ml @ 100 mls/hr Q8HRS IV Last administered on 03/03/19 06:24; Start 02/28/19 at 14:00; Stop 03/03/19 at 07:04; Status DC Linezolid/Dextrose 300 ml @ 300 mls/hr Q12HR IV Last administered on 03/03/19 20:00; Start 02/28/19 at 11:30; Stop 03/04/19 at 08:55; Status DC Micafungin Sodium 100 mg/Dextrose 100 ml @ 100 mls/hr Q24H IV Last administered on 03/04/19 15:53; Start 02/28/19 at 12:00; Stop 03/05/19 at 06:47; Status DC Furosemide (Lasix) 40 mg BID92 IVP Last administered on 03/02/19 14:06; Start 02/28/19 at 14:00; Stop 03/02/19 at 17:02; Status DC Famotidine (Pepcid Vial) 20 mg QHS IVP Last administered on 03/01/19 21:24; Start 02/28/19 at 21:00; Stop 03/02/19 at 10:07; Status DC Albuterol/ Ipratropium (Duoneb) 3 ml RTQID NEB Last administered on 03/11/19 20:19; Start 02/28/19 at 16:00 Haloperidol Lactate (Haldol Inj) 5 mg PRN Q6HRS PRN IVP AGITATION 2ND CHOICE Last administered on 4/8/19at 14:07; Start 02/28/19 at 15:15 Vecuronium Bradford (Norcuron Bolus) 8 mg PRN Q4HRS PRN IV MUSCLE SPASMS Last administered on 03/08/19at 17:04; Start 02/28/19 at 15:15 Perflutren Protein Type A Microsphe (Optison) 0.66 mg PRN 1X PRN IV SEE COMMENTS; Start 03/01/19 at 10:00; Stop 03/02/19 at 09:59; Status DC Digoxin (Lanoxin) 125 mcg 1X STAT IV ; Start 03/01/19 at 15:34; Stop 03/01/19 at 16:00; Status DC Sodium Chloride 500 ml @ 500 mls/hr 1X ONCE IV Last administered on at 18:46; Start 03/01/19 at 18:45; Stop 03/01/19 at 19:44; Status DC Famotidine (Pepcid Vial) 20 mg Q12HR IVP Last administered on 03/12/19at 08:08; Start 03/02/19 at 21:00 Furosemide (Lasix) 40 mg DAILY IVP Last administered on 03/04/19at 09:52; Start 03/03/19 at 09:00; Stop 03/04/19 at 12:13; Status DC Acetaminophen (Tylenol Supp) 650 mg PRN Q6HRS PRN MD MILD PAIN / TEMP Last administered on 03/03/19at 17:39; Start 03/02/19 at 17:15 Meropenem 500 mg/ Sodium Chloride 50 ml @ 100 mls/hr Q6HRS IV Last administered on 03/05/19at 05:33; Start 03/03/19 at 12:00; Stop 03/05/19 at 06:47; Status DC Albumin Human 100 ml @ 100 mls/hr 1X ONCE IV Last administered on 03/03/19at 08 :52; Start 03/03/19 at 08:30; Stop 03/03/19 at 09:29; Status DC Atropine Sulfate (ATROPINE 0.5mg SYRINGE) 2 mg STK-MED ONCE .ROUTE ; Start 02/27 at 16:21; Stop 03/03/19 at 16:22; Status DC Dopamine HCl/ Dextrose (DOPamine 400MG/ 250ML PREMIX) 400 mg STK-MED ONCE IV ; Start 02/27/19 at 16:21; Stop 03/03/19 at 16:22; Status DC Furosemide (Lasix) 40 mg 1X ONCE IVP Last administered on 03/03/19 18:46; Start 03/03/19 at 18:45; Stop 03/03/19 at 18:46; Status DC Lorazepam 100 mg/ Sodium Chloride 100 ml @ 0 mls/hr CONT PRN IV SEE PROTOCOL Last administered on 03/03/19 22:18; Start 03/03/19 at 22:00 Acetaminophen (Tylenol) 650 mg PRN Q6HRS PRN PEG MILD PAIN / TEMP Last administered on 03/10/19 20:48; Start 03/04/19 at 11:45 Furosemide (Lasix) 40 mg BID92 IVP Last administered on 03/06/19 08:38; Start 03/04/19 at 14:00; Stop 03/06/19 at 13:30; Status DC Fentanyl Citrate 30 ml @ 0 mls/hr CONT PRN IV SEE PROTOCOL Last administered on 03/12/19 08:10; Start 03/05/19 at 04:45 Cefepime HCl (Maxipime) 2 gm Q8HRS IVP Last administered on 03/10/19 05:43; Start 03/05/19 at 06:45; Stop 03/10/19 at 08:29; Status DC Metronidazole 100 ml @ 100 mls/hr Q8HRS IV Last administered on 03/10/19 05:45 ; Start 03/05/19 at 06:45; Stop 03/10/19 at 08:29; Status DC Linezolid/Dextrose 300 ml @ 300 mls/hr Q12HR IV Last administered on 03/05/19 21:24; Start 03/05/19 at 09:00; Stop 03/06/19 at 06:42; Status DC Metoclopramide HCl (Reglan Vial) 10 mg QIDACHS IV Last administered on 20:43; Start 03/05/19 at 11:30; Stop 03/07/19 at 07:37; Status DC Insulin Glargine (Lantus) 12 units BID SQ Last administered on 03/09/19 09:29; Start 03/05/19 at 09:00; Stop 03/09/19 at 17:11; Status DC Digoxin (Lanoxin) 500 mcg 1X ONCE IV Last administered on 03/06/19 00:48; Start 03/06/19 at 00:45; Stop 03/06/19 at 00:46; Status DC Metoprolol Tartrate (Lopressor Vial) 5 mg 1X ONCE IVP Last administered on 03/06 00:53; Start 03/06/19 at 00:45; Stop 03/06/19 at 00:46; Status DC Sodium Chloride 500 ml @ 500 mls/hr 1X ONCE IV Last administered on 03/06/19 00:49; Start 03/06/19 at 00:45; Stop 03/06/19 at 01:44; Status DC Nystatin (Mycostatin) 1 jennifer BID TP Last administered on 03/12/19 08:09; Start 03/06/19 at 09:00 Sodium Cl/Sod Bicarb/Potass Cl/ PEG (Golytely) 2,000 ml 1X ONCE PO Last administered on 03/06/19 09:33; Start 03/06/19 at 08:00; Stop 03/06/19 at 08:01; Status DC Furosemide (Lasix) 40 mg DAILY08 IVP Last administered on 03/09/19 09:27; Start 03/07/19 at 08:00; Stop 03/09/19 at 12:45; Status DC Metoprolol Tartrate (Lopressor Vial) 10 mg 1X ONCE IVP Last administered on 16:08; Start 03/06/19 at 15:15; Stop 03/06/19 at 15:16; Status DC Metoprolol Tartrate (Lopressor Vial) 5 mg Q6HRS IVP Last administered on 17:03; Start 03/06/19 at 18:00; Stop 03/07/19 at 18:27; Status DC Aspirin (Children'S Aspirin) 81 mg 1X ONCE PO Last administered on 03/06/19 18 :18; Start 03/06/19 at 17:00; Stop 03/06/19 at 17:01; Status DC Aspirin (Children'S Aspirin) 81 mg [id number] PO Last administered on at 08:03; Start 03/07/19 at 08:00 Labetalol HCl (Normodyne Iv Push) 20 mg PRN Q2HR PRN IVP HYPERTENSION, SEE COMMENTS Last administered on 03/06/19at 21:29; Start 03/06/19 at 17:15 Digoxin (Lanoxin) 250 mcg 1X ONCE IV Last administered on 03/06/19at 22:00; Start 03/06/19 at 22:00; Stop 03/06/19 at 22:01; Status DC Diltiazem HCl 125 mg/Dextrose 125 ml @ 5 mls/hr CONT PRN IV SEE I/O RECORD Last administered on 03/12/19at 08:20; Start 03/06/19 at 23:00 Metoclopramide HCl (Reglan Vial) 10 mg Q6HRS IV ; Start 03/07/19 at 08:00; Stop 03/08/19 at 07:51; Status DC Metoprolol Tartrate (Lopressor Vial) 5 mg Q6HRS IVP Last administered on at 05:40; Start 03/08/19 at 12:00 Furosemide (Lasix) 40 mg 1X ONCE IVP Last administered on 03/08/19at 21:21; Start 03/08/19 at 21:00; Stop 03/08/19 at 21:01; Status DC Furosemide (Lasix) 20 mg DAILY08 IVP ; Start 03/10/19 at 08:00; Stop 03/10/19 at 08:00; Status DC Furosemide (Lasix) 20 mg DAILY08 IVP Last administered on 03/12/19at 08:09; Start 03/10/19 at 08:00 Insulin Glargine (Lantus) 16 units BID SQ Last administered on 03/12/19at 00:09 ; Start 03/09/19 at 21:00; Stop 03/12/19 at 07:18; Status DC Insulin Human Lispro (HumaLOG) 0-9 UNITS Q6HRS SQ Last administered on at 05:45; Start 03/09/19 at 18:00; Stop 03/12/19 at 07:18; Status DC Dextrose (Dextrose 50%-Water Syringe) 12.5 gm PRN Q15MIN PRN IV SEE COMMENTS; Start 03/09/19 at 17:15 Cefepime HCl (Maxipime) 2 gm Q12HR IVP Last administered on 03/12/19at 08:09; Start 03/10/19 at 21:00 Insulin Human Lispro (HumaLOG) 15 units 1X ONCE SQ Last administered on at 00:14; Start 03/11/19 at 00:00; Stop 03/11/19 at 00:01; Status DC Insulin Glargine (Lantus) 20 units BID SQ Last administered on 03/12/19at 08:11 ; Start 03/12/19 at 09:00 Insulin Human Lispro (HumaLOG) 0-9 UNITS Q6HRS SQ ; Start 03/12/19 at 12:00 Active Scripts Active Reported Proair Hfa Inhaler (Albuterol Sulfate) 8.5 Gm Hfa.aer.ad 1 Puff INH PRN Q6HRS PRN Lantus Solostar (Insulin Glargine,Hum.rec.anlog) 100 Unit/1 Ml Insuln.pen 20 Unit SQ QHS Humalog (Insulin Lispro) 100 Unit/1 Ml Cartridge 6 Unit SQ TIDWMEALS Doxazosin Mesylate 2 Mg Tablet 2 Mg PO DAILY Omeprazole 40 Mg Capsule.dr 40 Mg PO DAILY Amlodipine Besylate 10 Mg Tablet 10 Mg PO DAILY Atorvastatin Calcium 20 Mg Tablet 20 Mg PO DAILY Atenolol 50 Mg Tablet 50 Mg PO DAILY Losartan Potassium 100 Mg Tablet 100 Mg PO DAILY Aspirin 81 Mg Tab.chew 81 Mg PO DAILY Glyburide 5 Mg Tablet 1 Tab PO BID Vitals/I & O Vital Sign - Last 24 Hours 03/11/19 03/11/19 03/11/19 03/11/19 09:04 09:26 09:56 11:11 Pulse 81 88 89 Resp 22 22 22 B/P (MAP) 140/80 (100) 121/80 (94) 142/83 (102) Pulse Ox 92 97 94 96 O2 Delivery Ventilator Ventilator Ventilator Ventilator 03/11/19 03/11/19 03/11/19 03/11/19 11:54 12:05 12:13 12:17 Temp 99.0 99.0 Pulse 92 92 Resp 22 22 B/P (MAP) 145/75 (98) 145/75 Pulse Ox 96 O2 Delivery Ventilator Ventilator Mechanical Ventilator 03/11/19 03/11/19 03/11/19 03/11/19 12:47 13:00 14:05 15:54 Pulse 83 89 Resp 22 B/P (MAP) 107/62 (77) 139/82 (101) Pulse Ox 95 97 100 96 O2 Delivery Ventilator Ventilator Ventilator Ventilator 03/11/19 03/11/19 03/11/19 03/11/19 16:07 16:10 17:00 17:15 Temp 98.6 98.6 Pulse 85 87 Resp 22 22 B/P (MAP) 117/71 (86) 136/71 (92) Pulse Ox 97 96 96 O2 Delivery Ventilator Mechanical Ventilator Ventilator Ventilator 03/11/19 03/11/19 03/11/19 03/11/19 17:22 18:01 18:05 19:00 Temp 98.8 98.8 Pulse 87 87 79 Resp B/P (MAP) 140/74 (96) 148/72 131/69 (89) Pulse Ox 95 96 96 O2 Delivery Ventilator Ventilator Ventilator 03/11/19 03/11/19 03/11/19 03/11/19 20:00 20:00 20:19 21:00 Pulse 84 82 Resp B/P (MAP) 112/63 (79) 116/65 (82) Pulse Ox 97 96 97 O2 Delivery Mechanical Ventilator Ventilator Ventilator Ventilator 03/11/19 03/11/19 03/11/19 03/11/19 22:00 23:00 23:59 23:59 Temp 98.5 98.5 Pulse 79 78 78 Resp 22 22 B/P (MAP) 128/65 (86) 135/73 (93) 144/70 (94) Pulse Ox 97 97 97 O2 Delivery Ventilator Ventilator Ventilator Mechanical Ventilator 03/12/19 03/12/19 03/12/19 03/12/19 00:04 00:06 00:13 01:01 Pulse 78 78 Resp B/P (MAP) 135/73 132/66 (88) Pulse Ox 95 95 98 O2 Delivery Ventilator Ventilator Ventilator O2 Flow Rate 96.0 03/12/19 03/12/19 03/12/19 03/12/19 02:00 02:15 03:00 04:00 Temp 98.2 98.2 Pulse 69 72 74 Resp 22 22 22 B/P (MAP) 149/101 (117) 119/68 (85) 134/66 (88) Pulse Ox 98 95 94 96 O2 Delivery Ventilator Ventilator Ventilator Ventilator 03/12/19 03/12/19 03/12/19 03/12/19 04:00 04:00 04:03 04:33 Resp 20 22 Pulse Ox 94 94 97 O2 Delivery Ventilator Mechanical Ventilator Ventilator Ventilator O2 Flow Rate 96.0 96.0 03/12/19 03/12/19 03/12/19 03/12/19 05:00 05:40 06:00 07:00 Pulse 74 74 73 72 Resp 22 22 22 B/P (MAP) 136/67 (90) 136/67 155/81 (105) 140/76 (97) Pulse Ox 97 97 95 O2 Delivery Ventilator Ventilator Ventilator 03/12/19 03/12/19 08:08 08:10 Pulse Ox 95 O2 Delivery Ventilator Ventilator Intake and Output 03/11/19 03/11/19 03/12/19 14:59 22:59 06:59 Intake Total 590 ml 2103 ml 1608.0 ml Output Total 535 ml 495 ml 441 ml Balance 55 ml 1608 ml 1167.0 ml MICHAEL BURRIS MD Mar 12, 2019 08:52
[2019-03-12 09:17] LABS: FIO2 ABG 93
--- NOTE | 2019-03-12 09:33 | PDOC ---
PULMONARY PROGRESS NOTES Subjective ON AC MODE SEDATED 100% FIO2/12 PEEP, large ett secretion Vitals Vital Signs Date Time Temp Pulse Resp B/P (MAP) Pulse Ox O2 Delivery O2 Flow Rate FiO2 03/12/19 08:10 Ventilator 03/12/19 08:08 95 03/12/19 07:00 72 22 140/76 (97) 03/12/19 04:33 96.0 03/12/19 04:00 98.2 98.2 Comments ros as mentioned as above discussed w rn, rt, other sys otherwise neg on vent sedated HEENT: Other (nc at perrl nose clear orally intubated neck no lad, no thyromegaly) Lungs: Other (decrease bs) Cardiovascular: S1, S2, Other (decrease bs) Abdomen: Soft, Non-tender, Other (OBESE no mass) Extremities: Other (venous stasis left, right BKA) Skin: Warm Labs Laboratory Tests Test 03/10/19 11:26 03/10/19 17:42 03/10/19 23:42 03/11/19 05:20 Glucose (Fingerstick) 315 mg/dL (70-99) 348 mg/dL (70-99) 355 mg/dL (70-99) Sodium Level 148 mmol/L (136-145) Potassium Level 4.6 mmol/L (3.5-5.1) Chloride Level 109 mmol/L (98-107) Carbon Dioxide Level 32 mmol/L (21-32) Anion Gap 7 (6-14) Blood Urea Nitrogen 82 mg/dL (8-26) Creatinine 1.9 mg/dL (0.7-1.3) Estimated GFR (Cockcroft-Gault) 36.9 Glucose Level 309 mg/dL (70-99) Calcium Level 8.7 mg/dL (8.5-10.1) Test 03/11/19 05:22 03/11/19 09:15 03/11/19 11:50 03/11/19 18:07 Glucose (Fingerstick) 270 mg/dL (70-99) 307 mg/dL (70-99) 316 mg/dL (70-99) O2 Saturation 92 % (92-99) Arterial Blood pH 7.35 (7.35-7.45) Arterial Blood pH (Temp corrected) 7.35 Arterial Blood pCO2 at Patient Temp 61 mmHg (35-46) Arterial Blood pCO2 (Temp correct) 61 mmHg Arterial Blood pO2 at Patient Temp 68 mmHg (75-108) Arterial Blood pO2 (Temp corrected) 68 mmHg Arterial Blood HCO3 33 mmol/L (21-28) Arterial Blood Base Excess 5 mmol/L (-3-3) FiO2 100 Test 03/12/19 00:01 03/12/19 05:42 03/12/19 08:00 Glucose (Fingerstick) 295 mg/dL (70-99) 301 mg/dL (70-99) O2 Saturation 93 % (92-99) Arterial Blood pH 7.41 (7.35-7.45) Arterial Blood pCO2 at Patient Temp 48 mmHg (35-46) Arterial Blood pO2 at Patient Temp 66 mmHg (75-108) Arterial Blood HCO3 30 mmol/L (21-28) Arterial Blood Base Excess 5 mmol/L (-3-3) FiO2 93 Laboratory Tests Test 03/11/19 11:50 03/11/19 18:07 03/12/19 00:01 03/12/19 05:42 Glucose (Fingerstick) 307 mg/dL (70-99) 316 mg/dL (70-99) 295 mg/dL (70-99) 301 mg/dL (70-99) Test 03/12/19 08:00 O2 Saturation 93 % (92-99) Arterial Blood pH 7.41 (7.35-7.45) Arterial Blood pCO2 at Patient Temp 48 mmHg (35-46) Arterial Blood pO2 at Patient Temp 66 mmHg (75-108) Arterial Blood HCO3 30 mmol/L (21-28) Arterial Blood Base Excess 5 mmol/L (-3-3) FiO2 93 Medications Active Scripts Medications Dose Route/Sig Max Daily Dose Days Date Category Proair Hfa Inhaler (Albuterol Sulfate) 8.5 Gm Hfa.aer.ad 1 Puff INH PRN Q6HRS PRN 02/27/19 Reported Lantus Solostar (Insulin Glargine,Hum.rec.anlog) 100 Unit/1 Ml Insuln.pen 20 Unit SQ QHS 02/27/19 Reported Humalog (Insulin Lispro) 100 Unit/1 Ml Cartridge 6 Unit SQ TIDWMEALS 02/27/19 Reported Doxazosin Mesylate 2 Mg Tablet 2 Mg PO DAILY 02/27/19 Reported Omeprazole 40 Mg Capsule.dr 40 Mg PO DAILY 02/27/19 Reported Amlodipine Besylate 10 Mg Tablet 10 Mg PO DAILY 02/27/19 Reported Atorvastatin Calcium 20 Mg Tablet 20 Mg PO DAILY 02/27/19 Reported Atenolol 50 Mg Tablet 50 Mg PO DAILY 02/27/19 Reported Losartan Potassium 100 Mg Tablet 100 Mg PO DAILY 02/27/19 Reported Aspirin 81 Mg Tab.chew 81 Mg PO DAILY 02/27/19 Reported Glyburide 5 Mg Tablet 1 Tab PO BID 11/09/16 Reported Comments CXR REVIEWED b lat infilt effusion atelectasis, ett ok Impression . 1. Acute hypoxemic /hypercapnic respiratory failure./ ARDS 2. sepsis./ ARDS 3. In-house cardiopulmonary arrest. 4. Normal EF / mild Pulmonary HTN 5. Acute on chronic right-sided heart failure. 6. Possible pneumonia. 7. Morbid obesity. 8. Diabetes. 9. ANASARCA 10. Abnormal CXR <Conclusion>ECHO The left ventricular systolic function is normal. The ejection fraction is 60-65%. There is normal LV segmental wall motion. Transmitral Doppler flow pattern is Grade I-abnormal relaxation pattern. Trace tricuspid regurgitation. Estimated PAP 33-38 mmHg. There is no evidence of significant pericardial effusion. VENOUS 02/28 Impression: 1. There is no evidence of deep venous thrombosis from the bilateral common femoral to popliteal veins. 2. There is nonspecific right groin lymph node. Plan . AC MODE ,12 PEEP [id number]% FI02, cont vent support, setting reviewed, titrate fio2 if able ANITBX PER ID lasix added per nephro, keep I<O. cxr worse bilateral venous Dopplers of lower extremities.NEG DVT and GI prophylaxis. Follow Cardiology.rec Enteral nutrition Follow cxr elevate hob discussed w rn, rt DNR now Will re-discuss goals of care Saturday MALINDA CR MD Mar 12, 2019 09:33
[2019-03-12] MEDS: IPRATRPIUM/ALBUTEROL 0.5/2.5MG 3 ML NEBU. NEB SCH ×4 (09:34→20:00)
--- NOTE | 2019-03-12 09:42 | PDOC ---
SUBJECTIVE ROS Intubated, No change. Unable to trach due to high PEEP OBJECTIVE Vital Signs Vital Signs Date Time Temp Pulse Resp B/P (MAP) Pulse Ox O2 Delivery O2 Flow Rate FiO2 03/12/19 08:10 Ventilator 03/12/19 08:08 95 03/12/19 07:00 72 22 140/76 (97) 03/12/19 04:33 96.0 03/12/19 04:00 98.2 98.2 I & 0 Intake and Output 03/12/19 07:00 Intake Total 4301.0 ml Output Total 1471 ml Balance 2830.0 ml IV Total 513.0 ml Tube Feeding 2920 ml Blood Product IV Normal Saline Flush 118 ml Other 750 ml Output Urine Total 1470 ml Stool Total 1 ml Gastric Drainage Total 0 ml PHYSICAL EXAM Physical Exam GENERAL: Sedated and intubated. HEENT: ETT. OGT NECK: Supple. LUNGS: CTA ant HEART: S1, S2. ABDOMEN: Distended with decreased bowel sounds GENITOURINARY: [place] +, + scrotal swelling EXTREMITIES: 1+ edema. RLE stump with chronic wound. SKIN: 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 groin DIAGNOSIS/ASSESSMENT Assessment & Plan LEONARD- Cr up to 2-2.3 ,improving stable E-Lytes and acid base No labs this am,Will follow tomorrow Acute hypoxemic /hypercapnic respiratory failure./ ARDS Anasarca- Improved Low dose IV Lasix now Hypernatremia -Mild Right Renal mass Fever - ? Infection vs ileus vs drug reaction Acute respiratory failure, intubated, increased infiltrates today - ARDS Scrotal edema/cellulitis- Improved urology consulted In hospital CP arrest COMMENT/RELEVANT DATA Meds Current Medications Medications (Trade) Dose Ordered Sig/Lula Start Time Stop Time Status Last Admin Dose Admin Acetaminophen (Tylenol Supp) 650 mg PRN Q6HRS PRN 03/02/19 17:15 03/03/19 17:39 650 MG Acetaminophen (Tylenol) 650 mg PRN Q6HRS PRN 03/04/19 11:45 03/10/19 20:48 650 MG Albumin Human 100 ml @ 100 mls/hr 1X ONCE 03/03/19 08:30 03/03/19 09:29 DC 03/03/19 08:52 100 MLS/HR Albuterol/ Ipratropium (Duoneb) 3 ml RTQID 02/28/19 16:00 03/12/19 09:34 3 ML Aspirin (Aspirin) 300 mg DAILY 02/28/19 09:00 02/28/19 09:42 DC Aspirin (Children'S Aspirin) 81 mg DAILYWBKFT 03/07/19 08:00 03/12/19 08:03 81 MG Atropine Sulfate (ATROPINE 0.5mg SYRINGE) 2 mg STK-MED ONCE 02/27/19 16:21 03/03/19 16:22 DC Calcium Chloride 1000 mg/Dextrose 60 ml @ 120 mls/hr 1X ONCE 02/28/19 10:30 02/28/19 10:59 DC 02/28/19 11:03 120 MLS/HR Cefepime HCl (Maxipime) 2 gm Q12HR 03/10/19 21:00 03/12/19 08:09 2 GM Ceftriaxone Sodium (Rocephin) 1 gm Q24H 02/28/19 11:00 02/28/19 11:18 DC 02/28/19 11:03 1 GM Dextrose (Dextrose 50%-Water Syringe) 12.5 gm PRN Q15MIN PRN 03/09/19 17:15 Digoxin (Lanoxin) 250 mcg 1X ONCE 03/06/19 22:00 03/06/19 22:01 DC 03/06/19 22:00 250 MCG Diltiazem HCl 125 mg/Dextrose 125 ml @ 5 mls/hr CONT PRN 03/06/19 23:00 03/12/19 08:20 5 MLS/HR Dopamine HCl/ Dextrose (DOPamine 400MG/ 250ML PREMIX) 400 mg STK-MED ONCE 02/27/19 16:21 03/03/19 16:22 DC Etomidate (Amidate) 20 mg STK-MED ONCE 02/28/19 06:59 02/28/19 07:00 DC Famotidine (Pepcid Vial) 20 mg Q12HR 03/02/19 21:00 03/12/19 08:08 20 MG Fentanyl Citrate 30 ml @ 0 mls/hr CONT PRN 03/05/19 04:45 03/12/19 08:10 4.95 MLS/HR Fentanyl Citrate (Fentanyl 2ml Vial) 25 mcg PRN Q30MIN PRN 02/28/19 07:45 02/28/19 09:42 DC Furosemide (Lasix) 20 mg DAILY08 03/10/19 08:00 03/12/19 08:09 20 MG Haloperidol Lactate (Haldol Inj) 5 mg PRN Q6HRS PRN 02/28/19 15:15 03/09/19 14:07 5 MG Heparin Sodium (Porcine) (Heparin Sodium) 5,000 unit Q8HRS 02/27/19 17:00 03/12/19 05:46 5,000 UNIT Info (Icu Electrolyte Protocol) 1 ea DAILY PRN 03/02/19 07:45 03/02/19 07:45 DC Insulin Glargine (Lantus) 20 units BID 03/12/19 09:00 03/12/19 08:11 20 UNITS Insulin Human Lispro (HumaLOG) 0-9 UNITS Q6HRS 03/12/19 12:00 Labetalol HCl (Normodyne Iv Push) 20 mg PRN Q2HR PRN 03/06/19 17:15 03/06/19 21:29 20 MG Linezolid/Dextrose 300 ml @ 300 mls/hr Q12HR 03/05/19 09:00 03/06/19 06:42 DC 03/05/19 21:24 300 MLS/HR Lorazepam (Ativan) 1 mg PRN Q30MIN PRN 02/28/19 07:45 02/28/19 09:42 DC Lorazepam 100 mg/ Sodium Chloride 100 ml @ 0 mls/hr CONT PRN 03/03/19 22:00 03/03/19 22:18 1 MLS/HR Meperidine HCl (Demerol) 12.5 mg PRN Q30MIN PRN 02/28/19 07:45 02/28/19 09:42 DC Meropenem 500 mg/ Sodium Chloride 50 ml @ 100 mls/hr Q6HRS 03/03/19 12:00 03/05/19 06:47 DC 03/05/19 05:33 100 MLS/HR Metoclopramide HCl (Reglan Vial) 10 mg Q6HRS 03/07/19 08:00 03/08/19 07:51 DC Metoprolol Tartrate (Lopressor Vial) 5 mg Q6HRS 03/08/19 12:00 03/12/19 05:40 5 MG Metronidazole 100 ml @ 100 mls/hr Q8HRS 03/05/19 06:45 03/10/19 08:29 DC 03/10/19 05:45 100 MLS/HR Micafungin Sodium 100 mg/Dextrose 100 ml @ 100 mls/hr Q24H 02/28/19 12:00 03/05/19 06:47 DC 03/04/19 15:53 100 MLS/HR Midazolam HCl 100 ml @ 0 mls/hr CONT PRN 02/28/19 07:15 03/12/19 04:02 10 MLS/HR Morphine Sulfate (Morphine Sulfate) 2 mg PRN Q2HR PRN 02/27/19 16:45 02/28/19 16:44 DC Multi-Ingred Cream/Lotion/Oil/ Oint (Artificial Tears Eye Ointment) 1 jennifer PRN Q6HRS PRN 02/28/19 07:45 02/28/19 09:42 DC Nystatin (Mycostatin) 1 jennifer BID 03/06/19 09:00 03/12/19 08:09 1 JENNIFER Ondansetron HCl (Zofran) 4 mg PRN Q8HRS PRN 02/27/19 16:45 02/28/19 16:44 DC Perflutren Protein Type A Microsphe (Optison) 0.66 mg PRN 1X PRN 03/01/19 10:00 03/02/19 09:59 DC Propofol 100 ml @ 0 mls/hr CONT PRN 02/28/19 07:45 Rocuronium [place] (Zemuron) 50 mg STK-MED ONCE 02/28/19 07:00 02/28/19 09:42 DC Sodium Chloride 500 ml @ 500 mls/hr 1X ONCE 03/06/19 00:45 03/06/19 01:44 DC 03/06/19 00:49 500 MLS/HR Sodium Chloride (Normal Saline Flush) 3 ml QSHIFT PRN 02/28/19 07:45 Sodium Cl/Sod Bicarb/Potass Cl/ PEG (Golytely) 2,000 ml 1X ONCE 03/06/19 08:00 03/06/19 08:01 DC 03/06/19 09:33 2,000 ML Vecuronium [place] (Norcuron Bolus) 8 mg PRN Q4HRS PRN 02/28/19 15:15 03/08/19 17:04 8 MG Lab Laboratory Tests Test 03/11/19 11:50 03/11/19 18:07 03/12/19 00:01 03/12/19 05:42 Glucose (Fingerstick) 307 mg/dL (70-99) 316 mg/dL (70-99) 295 mg/dL (70-99) 301 mg/dL (70-99) Test 03/12/19 08:00 O2 Saturation 93 % (92-99) Arterial Blood pH 7.41 (7.35-7.45) Arterial Blood pCO2 at Patient Temp 48 mmHg (35-46) Arterial Blood pO2 at Patient Temp 66 mmHg (75-108) Arterial Blood HCO3 30 mmol/L (21-28) Arterial Blood Base Excess 5 mmol/L (-3-3) FiO2 93 Results All relevant outside records, renal labs, imaging studies, telemetry/EKG's were reviewed. GALO AMBRIZ MD Mar 12, 2019 09:42
[2019-03-12] MEDS: dilTIAZem HCL 30 MG TABLET PO SCH ×2 (11:51→17:18)
[2019-03-12] MEDS: VECURONIUM BOLUS 10 MG VIAL. IV PRN (23:48)
[2019-03-13] VITALS (24 sets, daily range): BP systolic 95–182; BP diastolic 54–82
[2019-03-13] MEDS: INSULIN LISPRO 300 UNITS/3 ML INSULN.PEN. SQ SCH ×4 (00:08→18:23)
[2019-03-13] MEDS: MIDAZOLAM 100mg/100ml NS BAG 100 ML IV PRN ×2 (04:22→17:28)
[2019-03-13] MEDS: METOPROLOL TARTRATE 5 MG/5 ML VIAL. IVP SCH ×3 (05:39→18:03)
[2019-03-13] MEDS: dilTIAZem HCL 30 MG TABLET PO SCH ×5 (05:39→21:54)
[2019-03-13] MEDS: HEPARIN for SUB-Q USE 5,000 UNIT/ML VIAL. SQ SCH ×3 (05:45→21:13)
[2019-03-13 05:59] LABS: CALCIUM 9.1 mg/dL (8.5-10.1); CREATININE 1.7 mg/dL (0.7-1.3); GFR 41.9; POTASSIUM 4.9 mmol/L (3.5-5.1)
--- NOTE | 2019-03-13 06:38 | PDOC ---
PULMONARY PROGRESS NOTES Subjective ON AC MODE SEDATED on versed, fentanyl 100% FIO2/12 PEEP, large ett secretion Vitals Vital Signs Date Time Temp Pulse Resp B/P (MAP) Pulse Ox O2 Delivery O2 Flow Rate FiO2 03/13/19 06:00 76 22 134/64 (87) 91 Ventilator 03/13/19 04:23 96.0 03/13/19 04:00 98.9 98.9 Comments ros as mentioned as above discussed w rn, rt, other sys otherwise neg on vent sedated HEENT: Other (nc at perrl nose clear orally intubated neck no lad, no thyromegaly) Lungs: Other (decrease bs) Cardiovascular: S1, S2, Other (decrease bs) Abdomen: Soft, Non-tender, Other (OBESE no mass) Extremities: Other (venous stasis left, right BKA) Skin: Warm Labs Laboratory Tests Test 03/11/19 09:15 03/11/19 11:50 03/11/19 18:07 03/12/19 00:01 O2 Saturation 92 % (92-99) Arterial Blood pH 7.35 (7.35-7.45) Arterial Blood pH (Temp corrected) 7.35 Arterial Blood pCO2 at Patient Temp 61 mmHg (35-46) Arterial Blood pCO2 (Temp correct) 61 mmHg Arterial Blood pO2 at Patient Temp 68 mmHg (75-108) Arterial Blood pO2 (Temp corrected) 68 mmHg Arterial Blood HCO3 33 mmol/L (21-28) Arterial Blood Base Excess 5 mmol/L (-3-3) FiO2 100 Glucose (Fingerstick) 307 mg/dL (70-99) 316 mg/dL (70-99) 295 mg/dL (70-99) Test 03/12/19 05:42 03/12/19 08:00 03/12/19 11:47 03/12/19 17:20 Glucose (Fingerstick) 301 mg/dL (70-99) 294 mg/dL (70-99) 299 mg/dL (70-99) O2 Saturation 93 % (92-99) Arterial Blood pH 7.41 (7.35-7.45) Arterial Blood pCO2 at Patient Temp 48 mmHg (35-46) Arterial Blood pO2 at Patient Temp 66 mmHg (75-108) Arterial Blood HCO3 30 mmol/L (21-28) Arterial Blood Base Excess 5 mmol/L (-3-3) FiO2 93 Test 03/12/19 21:23 03/12/19 23:55 03/13/19 05:20 03/13/19 05:28 Glucose (Fingerstick) 274 mg/dL (70-99) 285 mg/dL (70-99) 226 mg/dL (70-99) Sodium Level 150 mmol/L (136-145) Potassium Level 4.9 mmol/L (3.5-5.1) Chloride Level 112 mmol/L (98-107) Carbon Dioxide Level 33 mmol/L (21-32) Anion Gap 5 (6-14) Blood Urea Nitrogen 80 mg/dL (8-26) Creatinine 1.7 mg/dL (0.7-1.3) Estimated GFR (Cockcroft-Gault) 41.9 Glucose Level 245 mg/dL (70-99) Calcium Level 9.1 mg/dL (8.5-10.1) Laboratory Tests Test 03/12/19 08:00 03/12/19 11:47 03/12/19 17:20 03/12/19 21:23 O2 Saturation 93 % (92-99) Arterial Blood pH 7.41 (7.35-7.45) Arterial Blood pCO2 at Patient Temp 48 mmHg (35-46) Arterial Blood pO2 at Patient Temp 66 mmHg (75-108) Arterial Blood HCO3 30 mmol/L (21-28) Arterial Blood Base Excess 5 mmol/L (-3-3) FiO2 93 Glucose (Fingerstick) 294 mg/dL (70-99) 299 mg/dL (70-99) 274 mg/dL (70-99) Test 03/12/19 23:55 03/13/19 05:20 03/13/19 05:28 Glucose (Fingerstick) 285 mg/dL (70-99) 226 mg/dL (70-99) Sodium Level 150 mmol/L (136-145) Potassium Level 4.9 mmol/L (3.5-5.1) Chloride Level 112 mmol/L (98-107) Carbon Dioxide Level 33 mmol/L (21-32) Anion Gap 5 (6-14) Blood Urea Nitrogen 80 mg/dL (8-26) Creatinine 1.7 mg/dL (0.7-1.3) Estimated GFR (Cockcroft-Gault) 41.9 Glucose Level 245 mg/dL (70-99) Calcium Level 9.1 mg/dL (8.5-10.1) Medications Active Scripts Medications Dose Route/Sig Max Daily Dose Days Date Category Proair Hfa Inhaler (Albuterol Sulfate) 8.5 Gm Hfa.aer.ad 1 Puff INH PRN Q6HRS PRN 02/27/19 Reported Lantus Solostar (Insulin Glargine,Hum.rec.anlog) 100 Unit/1 Ml Insuln.pen 20 Unit SQ QHS 02/27/19 Reported Humalog (Insulin Lispro) 100 Unit/1 Ml Cartridge 6 Unit SQ TIDWMEALS 02/27/19 Reported Doxazosin Mesylate 2 Mg Tablet 2 Mg PO DAILY 02/27/19 Reported Omeprazole 40 Mg Capsule.dr 40 Mg PO DAILY 02/27/19 Reported Amlodipine Besylate 10 Mg Tablet 10 Mg PO DAILY 02/27/19 Reported Atorvastatin Calcium 20 Mg Tablet 20 Mg PO DAILY 02/27/19 Reported Atenolol 50 Mg Tablet 50 Mg PO DAILY 02/27/19 Reported Losartan Potassium 100 Mg Tablet 100 Mg PO DAILY 02/27/19 Reported Aspirin 81 Mg Tab.chew 81 Mg PO DAILY 02/27/19 Reported Glyburide 5 Mg Tablet 1 Tab PO BID 11/09/16 Reported Comments CXR REVIEWED b lat infilt effusion atelectasis, worse, ett ok Impression . 1. Acute hypoxemic /hypercapnic respiratory failure./ ARDS 2. sepsis./ ARDS 3. In-house cardiopulmonary arrest. 4. Normal EF / mild Pulmonary HTN 5. Acute on chronic right-sided heart failure. 6. Possible pneumonia. 7. Morbid obesity. 8. Diabetes. 9. ANASARCA 10. Abnormal CXR <Conclusion>ECHO The left ventricular systolic function is normal. The ejection fraction is 60-65%. There is normal LV segmental wall motion. Transmitral Doppler flow pattern is Grade I-abnormal relaxation pattern. Trace tricuspid regurgitation. Estimated PAP 33-38 mmHg. There is no evidence of significant pericardial effusion. VENOUS 02/28 Impression: 1. There is no evidence of deep venous thrombosis from the bilateral common femoral to popliteal veins. 2. There is nonspecific right groin lymph node. Plan . AC MODE ,12 PEEP [id number]% FI02, cont vent support, setting reviewed, ANITBX PER ID lasix added per nephro, keep I<O. cxr worse, oxygenation worse, will give lasix 20 mg iv now bilateral venous Dopplers of lower extremities.NEG DVT and GI prophylaxis. Follow Cardiology.rec Enteral nutrition Follow cxr elevate hob discussed w rn, rt DNR now, poor prognosis Will re-discuss goals of care Saturday MALINDA CR MD Mar 13, 2019 06:38
--- NOTE | 2019-03-13 07:58 | PDOC ---
PROGRESS NOTES Chief Complaint Chief Complaint Assessment/Plan ACUTE RESP ARREST POST CODE ON FLOOR 02/27 Acute respiratory failure secondary to congestive heart failure, most probably acute on chronic diastolic. s/p intubation. Myocardial infarction ruled out. Hypernatremia secondary to severe dehydration will need to provide water flushes in order to correct electrolyte disturbance. High residuals on tube feedings no evidence of obstructive pattern on x ray done 03/05/2019 3 weeks of bilateral general scrotal swelling and tenderness. +dyspnea, abd swelling, leg swelling. POA, Dm2 obesity, extreme, morbid hx RLE BKA RLE stump with chronic wound. No erythema/warmth left foot nail onychomycosis needs attention when more clinically stable Acute renal failure ATN Renal CONSULT 3.1-1.8 chronic venous insuff left lower leg nonspecific perinephric stranding with slight asymmetric stranding adjacent to the left renal pelvis. Findings may be due to chronic kidney disease, though ascending urinary tract infection is not excluded. Bilateral lower lobe consolidation concerning for multifocal pneumonia aspiration not excluded. Right renal hypodensity measuring 2.5 cm is incompletely evaluated on noncontrast examination. Follow-up MRI or CT abdomen and pelvis renal protocol with contrast is recommended for further evaluation. Anasarca. bilateral external iliac lymphadenopathy, may be reactive, though follow-up CT abdomen and pelvis in 3 months is recommended to assess for stability/resolution. Nonobstructive left nephrolithiasis. Coronary artery calcifications. The left ventricular systolic function is normal.ejection fraction is 60-65% .normal LV segmental wall motion. Transmitral Doppler flow pattern is Grade I-abnormal relaxation pattern. Trace tricuspid regurgitation. Estimated PAP 33-38 mmHg. PLAN continue with supportive measures ventilatory support still requiring % oxygen and over 10 of PEEP, poor prognosis, Dr Vinson will address on Saturday if patient does not have improvement, he has been on support for 10 days now follow recommendations from accounting policy consultant. UROLOGY CONSULT reviewed no intervention needed except for elevation and diuresis ID CONSULT continue wtih antibiotic as per ID ECHO noted critically ill, poor prognosis. History of Present Illness History of Present Illness Patient with no acute events reported overnight. continues to be vent dependent , PEEP of 12. Sodium up to 150, was unable to get free water boluses recently. Vitals Vitals Vital Signs Date Time Temp Pulse Resp B/P (MAP) Pulse Ox O2 Delivery O2 Flow Rate FiO2 03/13/19 07:00 91 22 132/63 (86) 89 Ventilator 03/13/19 04:23 96.0 03/13/19 04:00 98.9 98.9 Physical Exam Physical Exam GENERAL: Sedated and intubated. HEENT: PERRL, normal conj. ETT. OGT NECK: Supple. LUNGS: Decreased in bases HEART: S1, S2. ABDOMEN: Obese, decreased bowel sounds, no grimace or guarding to palpation GENITOURINARY: [place] - He has 3+ scrotal swelling with less erythema. EXTREMITIES: No clubbing, cyanosis with 2 + edema. Generalized anasarca. RLE stump with chronic wound. No erythema/fluctuance/warmth SKIN: Warm to touch. 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 groin GRAIN COMBINER: Sedated RIJ General: Other (intubated.) Heart: Regular rate Lungs: Other (decrease bs) Abdomen: Normal bowel sounds Extremities: No cyanosis, Other (ANASARCA) Skin: Other (scale, lower leg ) Labs LABS Laboratory Tests Test 03/12/19 08:00 03/12/19 11:47 03/12/19 17:20 03/12/19 21:23 O2 Saturation 93 % (92-99) Arterial Blood pH 7.41 (7.35-7.45) Arterial Blood pCO2 at Patient Temp 48 mmHg (35-46) Arterial Blood pO2 at Patient Temp 66 mmHg (75-108) Arterial Blood HCO3 30 mmol/L (21-28) Arterial Blood Base Excess 5 mmol/L (-3-3) FiO2 93 Glucose (Fingerstick) 294 mg/dL (70-99) 299 mg/dL (70-99) 274 mg/dL (70-99) Test 03/12/19 23:55 03/13/19 05:20 03/13/19 05:28 Glucose (Fingerstick) 285 mg/dL (70-99) 226 mg/dL (70-99) Sodium Level 150 mmol/L (136-145) Potassium Level 4.9 mmol/L (3.5-5.1) Chloride Level 112 mmol/L (98-107) Carbon Dioxide Level 33 mmol/L (21-32) Anion Gap 5 (6-14) Blood Urea Nitrogen 80 mg/dL (8-26) Creatinine 1.7 mg/dL (0.7-1.3) Estimated GFR (Cockcroft-Gault) 41.9 Glucose Level 245 mg/dL (70-99) Calcium Level 9.1 mg/dL (8.5-10.1) Assessment and Plan Assessmemt and Plan Problems Medical Problems: (1) Acute renal failure Status: Acute (2) Edema Status: Acute (3) Shortness of breath Status: Acute Comment Review of Relevant I have reviewed the following items pascual (where applicable) has been applied. Labs Laboratory Tests Test 03/11/19 09:15 03/11/19 11:50 03/11/19 18:07 03/12/19 00:01 O2 Saturation 92 % (92-99) Arterial Blood pH 7.35 (7.35-7.45) Arterial Blood pH (Temp corrected) 7.35 Arterial Blood pCO2 at Patient Temp 61 mmHg (35-46) Arterial Blood pCO2 (Temp correct) 61 mmHg Arterial Blood pO2 at Patient Temp 68 mmHg (75-108) Arterial Blood pO2 (Temp corrected) 68 mmHg Arterial Blood HCO3 33 mmol/L (21-28) Arterial Blood Base Excess 5 mmol/L (-3-3) FiO2 100 Glucose (Fingerstick) 307 mg/dL (70-99) 316 mg/dL (70-99) 295 mg/dL (70-99) Test 03/12/19 05:42 03/12/19 08:00 03/12/19 11:47 03/12/19 17:20 Glucose (Fingerstick) 301 mg/dL (70-99) 294 mg/dL (70-99) 299 mg/dL (70-99) O2 Saturation 93 % (92-99) Arterial Blood pH 7.41 (7.35-7.45) Arterial Blood pCO2 at Patient Temp 48 mmHg (35-46) Arterial Blood pO2 at Patient Temp 66 mmHg (75-108) Arterial Blood HCO3 30 mmol/L (21-28) Arterial Blood Base Excess 5 mmol/L (-3-3) FiO2 93 Test 03/12/19 21:23 03/12/19 23:55 03/13/19 05:20 03/13/19 05:28 Glucose (Fingerstick) 274 mg/dL (70-99) 285 mg/dL (70-99) 226 mg/dL (70-99) Sodium Level 150 mmol/L (136-145) Potassium Level 4.9 mmol/L (3.5-5.1) Chloride Level 112 mmol/L (98-107) Carbon Dioxide Level 33 mmol/L (21-32) Anion Gap 5 (6-14) Blood Urea Nitrogen 80 mg/dL (8-26) Creatinine 1.7 mg/dL (0.7-1.3) Estimated GFR (Cockcroft-Gault) 41.9 Glucose Level 245 mg/dL (70-99) Calcium Level 9.1 mg/dL (8.5-10.1) Laboratory Tests Test 03/12/19 08:00 03/12/19 11:47 03/12/19 17:20 03/12/19 21:23 O2 Saturation 93 % (92-99) Arterial Blood pH 7.41 (7.35-7.45) Arterial Blood pCO2 at Patient Temp 48 mmHg (35-46) Arterial Blood pO2 at Patient Temp 66 mmHg (75-108) Arterial Blood HCO3 30 mmol/L (21-28) Arterial Blood Base Excess 5 mmol/L (-3-3) FiO2 93 Glucose (Fingerstick) 294 mg/dL (70-99) 299 mg/dL (70-99) 274 mg/dL (70-99) Test 03/12/19 23:55 03/13/19 05:20 03/13/19 05:28 Glucose (Fingerstick) 285 mg/dL (70-99) 226 mg/dL (70-99) Sodium Level 150 mmol/L (136-145) Potassium Level 4.9 mmol/L (3.5-5.1) Chloride Level 112 mmol/L (98-107) Carbon Dioxide Level 33 mmol/L (21-32) Anion Gap 5 (6-14) Blood Urea Nitrogen 80 mg/dL (8-26) Creatinine 1.7 mg/dL (0.7-1.3) Estimated GFR (Cockcroft-Gault) 41.9 Glucose Level 245 mg/dL (70-99) Calcium Level 9.1 mg/dL (8.5-10.1) Microbiology 03/05/19 Blood Culture - Final, Complete NO GROWTH AFTER 5 DAYS 03/08/19 - Final, Complete 03/08/19 - Final, Complete 03/08/19 - Final, Complete 03/08/19 Gram Stain Evaluation - Final, Complete 03/08/19 Sputum Culture - Final, Complete 03/08/19 Sputum Result 1 - Final, Complete 03/02/19 Urine Culture - Final, Complete 03/02/19 Urine Culture Result 1 (LUCIO) - Final, Complete 03/09/19 Aerobic Culture, Resulted Pending 03/09/19 Aerobic Culture Result 1 (LUCIO), Resulted Pending 03/09/19 Gram Stain - Final, Resulted 03/09/19 Gram Stain Result 1 (LUCIO) - Final, Resulted 03/09/19 Gram Stain Result 2 (LUCIO) - Final, Resulted Medications Current Medications Ondansetron HCl (Zofran) 4 mg PRN Q8HRS PRN IV NAUSEA/VOMITING; Start 02/27/19 at 16:45; Stop 02/28/19 at 16:44; Status DC Morphine Sulfate (Morphine Sulfate) 2 mg PRN Q2HR PRN IV PAIN; Start 02/27/19 at 16:45; Stop 02/28/19 at 16:44; Status DC Acetaminophen (Tylenol) 650 mg PRN Q4HRS PRN PO FEVER Last administered on 02/27at 21:06; Start 02/27/19 at 16:45; Stop 02/28/19 at 16:44; Status DC Dextrose (Dextrose 50%-Water Syringe) 12.5 gm PRN Q15MIN PRN IV SEE COMMENTS; Start 02/27/19 at 16:45; Stop 03/10/19 at 13:48; Status DC Heparin Sodium (Porcine) (Heparin Sodium) 5,000 unit Q8HRS SQ Last administered on 03/13/19at 05:45; Start 02/27/19 at 17:00 Lorazepam (Ativan) 1 mg PRN Q8HRS PRN IV ANXIETY / AGITATION Last administered on 03/08/19at 03:37; Start 02/28/19 at 02:45 Etomidate (Amidate) 20 mg STK-MED ONCE IV ; Start 02/28/19 at 06:59; Stop at 07:00; Status DC Rocuronium [place] (Zemuron) 50 mg STK-MED ONCE .ROUTE ; Start 02/28/19 at 07:00 ; Stop 02/28/19 at 09:42; Status DC Dopamine HCl/ Dextrose 250 ml @ 12.266 mls/ hr CONT PRN IV SEE I/O RECORD Last administered on 02/28/19at 08:06; Start 02/28/19 at 07:15 Fentanyl Citrate 30 ml @ 0 mls/hr CONT PRN IV SEE PROTOCOL; Start 02/28/19 at 07:15; Stop 02/28/19 at 07:59; Status DC Propofol 100 ml @ 0 mls/hr CONT PRN IV SEE PROTOCOL; Start 02/28/19 at 07:15; Stop 02/28/19 at 07:59; Status DC Fentanyl Citrate (Fentanyl 2ml Vial) 25 mcg PRN Q1HR PRN IV SEE COMMENTS; Start 02/28/19 at 07:15; Stop 02/28/19 at 07:59; Status DC Fentanyl Citrate (Fentanyl 2ml Vial) 50 mcg PRN Q1HR PRN IV SEE COMMENTS; Start 02/28/19 at 07:15; Stop 02/28/19 at 07:59; Status DC Midazolam HCl 100 ml @ 0 mls/hr CONT PRN IV SEE PROTOCOL Last administered on at 04:22; Start 02/28/19 at 07:15 Sodium Chloride 1,000 ml @ 1,000 mls/hr Q1H IV Last administered on 02/28/19at 07:32; Start 02/28/19 at 07:32; Stop 02/28/19 at 10:09; Status DC Fentanyl Citrate (Fentanyl 2ml Vial) 25 mcg PRN Q30MIN PRN IV see comments; Start 02/28/19 at 07:45; Stop 02/28/19 at 09:42; Status DC Lorazepam (Ativan) 1 mg PRN Q30MIN PRN IV SEDATION; Start 02/28/19 at 07:45; Stop 02/28/19 at 09:42; Status DC Fentanyl Citrate 30 ml @ 2.5 mls/hr CONT PRN PRN IV SEE I/O RECORD Last administered on 03/05/19at 03:44; Start 02/28/19 at 07:45; Stop 03/05/19 at 04:40; Status DC Propofol 100 ml @ 0 mls/hr CONT PRN IV SEE I/O RECORD; Start 02/28/19 at 07:45 Vecuronium [place] (Norcuron Bolus) 10 mg PRN Q30MIN PRN IV SHIVERING; Start at 07:45; Stop 02/28/19 at 09:42; Status DC Meperidine HCl (Demerol) 12.5 mg PRN Q30MIN PRN IV SHIVERING; Start 02/28/19 at 07:45; Stop 02/28/19 at 09:42; Status DC Multi-Ingred Cream/Lotion/Oil/ Oint (Artificial Tears Eye Ointment) 1 jennifer PRN Q6HRS PRN OU 0.5 INCH FOR DRY EYE; Start 02/28/19 at 07:45; Stop 02/28/19 at 09 :42; Status DC Famotidine (Pepcid Vial) 20 mg BID IVP Last administered on 02/28/19at 11:03; Start 02/28/19 at 09:00; Stop 02/28/19 at 14:25; Status DC Aspirin (Aspirin) 300 mg DAILY SD ; Start 02/28/19 at 09:00; Stop 02/28/19 at 09 :42; Status DC Sodium Chloride (Normal Saline Flush) 3 ml QSHIFT PRN IV AFTER MEDS AND BLOOD DRAWS; Start 02/28/19 at 07:45 Acetaminophen (Tylenol) 650 mg Q6HRS NG ; Start 02/28/19 at 12:00; Stop at 12:00; Status DC Acetaminophen (Tylenol Supp) 650 mg PRN Q6HRS PRN SD MILD PAIN / TEMP; Start at 07:45; Stop 03/01/19 at 07:45; Status DC Acetaminophen (Tylenol) 650 mg PRN Q6HRS PRN NG MILD PAIN / TEMP; Start at 07:45; Stop 03/01/19 at 07:45; Status DC Info (Icu Electrolyte Protocol) 1 ea DAILY PRN MC PER PROTOCOL; Start 03/02/19 at 07:45; Stop 03/02/19 at 07:45; Status DC Furosemide (Lasix) 60 mg 1X ONCE IVP Last administered on 02/28/19at 08:30; Start 02/28/19 at 08:30; Stop 02/28/19 at 08:31; Status DC Ceftriaxone Sodium (Rocephin) 1 gm Q24H IVP Last administered on 02/28/19at 11: 03; Start 02/28/19 at 11:00; Stop 02/28/19 at 11:18; Status DC Calcium Chloride 1000 mg/Dextrose 60 ml @ 120 mls/hr 1X ONCE IV Last administered on 02/28/19at 11:03; Start 02/28/19 at 10:30; Stop 02/28/19 at 10:59 ; Status DC Meropenem 500 mg/ Sodium Chloride 50 ml @ 100 mls/hr Q8HRS IV Last administered on 03/03/19at 06:24; Start 02/28/19 at 14:00; Stop 03/03/19 at 07:04; Status DC Linezolid/Dextrose 300 ml @ 300 mls/hr Q12HR IV Last administered on 03/03/19at 20:00; Start 02/28/19 at 11:30; Stop 03/04/19 at 08:55; Status DC Micafungin Sodium 100 mg/Dextrose 100 ml @ 100 mls/hr Q24H IV Last administered on 03/04/19at 15:53; Start 02/28/19 at 12:00; Stop 03/05/19 at 06:47; Status DC Furosemide (Lasix) 40 mg BID92 IVP Last administered on 03/02/19 14:06; Start 02/28/19 at 14:00; Stop 03/02/19 at 17:02; Status DC Famotidine (Pepcid Vial) 20 mg QHS IVP Last administered on 03/01/19at 21:24; Start 02/28/19 at 21:00; Stop 03/02/19 at 10:07; Status DC Albuterol/ Ipratropium (Duoneb) 3 ml RTQID NEB Last administered on 03/12/19at 20:00; Start 02/28/19 at 16:00 Haloperidol Lactate (Haldol Inj) 5 mg PRN Q6HRS PRN IVP AGITATION 2ND CHOICE Last administered on 03/09/19at 14:07; Start 02/28/19 at 15:15 Vecuronium [place] (Norcuron Bolus) 8 mg PRN Q4HRS PRN IV MUSCLE SPASMS Last administered on 03/12/19at 23:48; Start 02/28/19 at 15:15 Perflutren Protein Type A Microsphe (Optison) 0.66 mg PRN 1X PRN IV SEE COMMENTS; Start 03/01/19 at 10:00; Stop 03/02/19 at 09:59; Status DC Digoxin (Lanoxin) 125 mcg 1X STAT IV ; Start 03/01/19 at 15:34; Stop 03/01/19 at 16:00; Status DC Sodium Chloride 500 ml @ 500 mls/hr 1X ONCE IV Last administered on at 18:46; Start 03/01/19 at 18:45; Stop 03/01/19 at 19:44; Status DC Famotidine (Pepcid Vial) 20 mg Q12HR IVP Last administered on 03/12/19at 21:01; Start 03/02/19 at 21:00 Furosemide (Lasix) 40 mg DAILY IVP Last administered on 03/04/19at 09:52; Start 03/03/19 at 09:00; Stop 03/04/19 at 12:13; Status DC Acetaminophen (Tylenol Supp) 650 mg PRN Q6HRS PRN SD MILD PAIN / TEMP Last administered on 03/03/19at 17:39; Start 03/02/19 at 17:15 Meropenem 500 mg/ Sodium Chloride 50 ml @ 100 mls/hr Q6HRS IV Last administered on 03/05/19at 05:33; Start 03/03/19 at 12:00; Stop 03/05/19 at 06:47; Status DC Albumin Human 100 ml @ 100 mls/hr 1X ONCE IV Last administered on 03/03/19at 08 :52; Start 03/03/19 at 08:30; Stop 03/03/19 at 09:29; Status DC Atropine Sulfate (ATROPINE 0.5mg SYRINGE) 2 mg STK-MED ONCE .ROUTE ; Start 02/27 at 16:21; Stop 03/03/19 at 16:22; Status DC Dopamine HCl/ Dextrose (DOPamine 400MG/ 250ML PREMIX) 400 mg STK-MED ONCE IV ; Start 02/27/19 at 16:21; Stop 03/03/19 at 16:22; Status DC Furosemide (Lasix) 40 mg 1X ONCE IVP Last administered on 03/03/19at 18:46; Start 03/03/19 at 18:45; Stop 03/03/19 at 18:46; Status DC Lorazepam 100 mg/ Sodium Chloride 100 ml @ 0 mls/hr CONT PRN IV SEE PROTOCOL Last administered on 03/03/19 22:18; Start 03/03/19 at 22:00 Acetaminophen (Tylenol) 650 mg PRN Q6HRS PRN PEG MILD PAIN / TEMP Last administered on 03/10/19 20:48; Start 03/04/19 at 11:45 Furosemide (Lasix) 40 mg BID92 IVP Last administered on 03/06/19 08:38; Start 03/04/19 at 14:00; Stop 03/06/19 at 13:30; Status DC Fentanyl Citrate 30 ml @ 0 mls/hr CONT PRN IV SEE PROTOCOL Last administered on 03/13/19 04:23; Start 03/05/19 at 04:45 Cefepime HCl (Maxipime) 2 gm Q8HRS IVP Last administered on 03/10/19 05:43; Start 03/05/19 at 06:45; Stop 03/10/19 at 08:29; Status DC Metronidazole 100 ml @ 100 mls/hr Q8HRS IV Last administered on 03/10/19 05:45 ; Start 03/05/19 at 06:45; Stop 03/10/19 at 08:29; Status DC Linezolid/Dextrose 300 ml @ 300 mls/hr Q12HR IV Last administered on 03/05/19 21:24; Start 03/05/19 at 09:00; Stop 03/06/19 at 06:42; Status DC Metoclopramide HCl (Reglan Vial) 10 mg QIDACHS IV Last administered on 20:43; Start 03/05/19 at 11:30; Stop 03/07/19 at 07:37; Status DC Insulin Glargine (Lantus) 12 units BID SQ Last administered on 03/09/19 09:29; Start 03/05/19 at 09:00; Stop 03/09/19 at 17:11; Status DC Digoxin (Lanoxin) 500 mcg 1X ONCE IV Last administered on 03/06/19 00:48; Start 03/06/19 at 00:45; Stop 03/06/19 at 00:46; Status DC Metoprolol Tartrate (Lopressor Vial) 5 mg 1X ONCE IVP Last administered on 03/06 00:53; Start 03/06/19 at 00:45; Stop 03/06/19 at 00:46; Status DC Sodium Chloride 500 ml @ 500 mls/hr 1X ONCE IV Last administered on 03/06/19 00:49; Start 03/06/19 at 00:45; Stop 03/06/19 at 01:44; Status DC Nystatin (Mycostatin) 1 jennifer BID TP Last administered on 03/12/19 21:02; Start 03/06/19 at 09:00 Sodium Cl/Sod Bicarb/Potass Cl/ PEG (Golytely) 2,000 ml 1X ONCE PO Last administered on 03/06/19 09:33; Start 03/06/19 at 08:00; Stop 03/06/19 at 08:01; Status DC Furosemide (Lasix) 40 mg DAILY08 IVP Last administered on 03/09/19 09:27; Start 03/07/19 at 08:00; Stop 03/09/19 at 12:45; Status DC Metoprolol Tartrate (Lopressor Vial) 10 mg 1X ONCE IVP Last administered on 16:08; Start 03/06/19 at 15:15; Stop 03/06/19 at 15:16; Status DC Metoprolol Tartrate (Lopressor Vial) 5 mg Q6HRS IVP Last administered on 17:03; Start 03/06/19 at 18:00; Stop 03/07/19 at 18:27; Status DC Aspirin (Children'S Aspirin) 81 mg 1X ONCE PO Last administered on 03/06/19 18 :18; Start 03/06/19 at 17:00; Stop 03/06/19 at 17:01; Status DC Aspirin (Children'S Aspirin) 81 mg DAILYWBKFT PO Last administered on 08:03; Start 03/07/19 at 08:00 Labetalol HCl (Normodyne Iv Push) 20 mg PRN Q2HR PRN IVP HYPERTENSION, SEE COMMENTS Last administered on 03/06/19 21:29; Start 03/06/19 at 17:15 Digoxin (Lanoxin) 250 mcg 1X ONCE IV Last administered on 03/06/19 22:00; Start 03/06/19 at 22:00; Stop 03/06/19 at 22:01; Status DC Diltiazem HCl 125 mg/Dextrose 125 ml @ 5 mls/hr CONT PRN IV SEE I/O RECORD Last administered on 03/12/19at 08:20; Start 03/06/19 at 23:00; Stop 03/12/19 at 11:03; Status DC Metoclopramide HCl (Reglan Vial) 10 mg Q6HRS IV ; Start 03/07/19 at 08:00; Stop 03/08/19 at 07:51; Status DC Metoprolol Tartrate (Lopressor Vial) 5 mg Q6HRS IVP Last administered on at 05:39; Start 03/08/19 at 12:00 Furosemide (Lasix) 40 mg 1X ONCE IVP Last administered on 03/08/19at 21:21; Start 03/08/19 at 21:00; Stop 03/08/19 at 21:01; Status DC Furosemide (Lasix) 20 mg DAILY08 IVP ; Start 03/10/19 at 08:00; Stop 03/10/19 at 08:00; Status DC Furosemide (Lasix) 20 mg DAILY08 IVP Last administered on 03/12/19at 08:09; Start 03/10/19 at 08:00 Insulin Glargine (Lantus) 16 units BID SQ Last administered on 03/12/19at 00:09 ; Start 03/09/19 at 21:00; Stop 03/12/19 at 07:18; Status DC Insulin Human Lispro (HumaLOG) 0-9 UNITS Q6HRS SQ Last administered on at 05:45; Start 03/09/19 at 18:00; Stop 03/12/19 at 07:18; Status DC Dextrose (Dextrose 50%-Water Syringe) 12.5 gm PRN Q15MIN PRN IV SEE COMMENTS; Start 03/09/19 at 17:15 Cefepime HCl (Maxipime) 2 gm Q12HR IVP Last administered on 03/12/19at 21:01; Start 03/10/19 at 21:00 Insulin Human Lispro (HumaLOG) 15 units 1X ONCE SQ Last administered on at 00:14; Start 03/11/19 at 00:00; Stop 03/11/19 at 00:01; Status DC Insulin Glargine (Lantus) 20 units BID SQ Last administered on 03/12/19at 21:28 ; Start 03/12/19 at 09:00 Insulin Human Lispro (HumaLOG) 0-9 UNITS Q6HRS SQ Last administered on at 05:46; Start 03/12/19 at 12:00 Diltiazem HCl (Cardizem) 30 mg Q6HRS PO Last administered on 03/13/19at 05:39; Start 03/12/19 at 12:00 Active Scripts Active Reported Proair Hfa Inhaler (Albuterol Sulfate) 8.5 Gm Hfa.aer.ad 1 Puff INH PRN Q6HRS PRN Lantus Solostar (Insulin Glargine,Hum.rec.anlog) 100 Unit/1 Ml Insuln.pen 20 Unit SQ QHS Humalog (Insulin Lispro) 100 Unit/1 Ml Cartridge 6 Unit SQ TIDWMEALS Doxazosin Mesylate 2 Mg Tablet 2 Mg PO DAILY Omeprazole 40 Mg Capsule.dr 40 Mg PO DAILY Amlodipine Besylate 10 Mg Tablet 10 Mg PO DAILY Atorvastatin Calcium 20 Mg Tablet 20 Mg PO DAILY Atenolol 50 Mg Tablet 50 Mg PO DAILY Losartan Potassium 100 Mg Tablet 100 Mg PO DAILY Aspirin 81 Mg Tab.chew 81 Mg PO DAILY Glyburide 5 Mg Tablet 1 Tab PO BID Vitals/I & O Vital Sign - Last 24 Hours 03/12/19 03/12/19 03/12/19 03/12/19 08:00 08:00 08:08 08:10 Temp 98.7 98.7 Pulse 68 Resp 22 B/P (MAP) 136/69 (91) Pulse Ox 95 95 O2 Delivery Ventilator Mechanical Ventilator Ventilator Ventilator 03/12/19 03/12/19 03/12/19 03/12/19 09:00 09:37 10:00 11:00 Pulse 80 80 73 Resp 22 22 22 B/P (MAP) 147/90 (109) 147/72 (97) 125/69 (87) Pulse Ox 96 94 95 95 O2 Delivery Ventilator Ventilator Ventilator Ventilator 03/12/19 03/12/19 03/12/19 03/12/19 11:29 11:51 11:56 12:00 Temp 98.9 98.9 Pulse 75 75 73 Resp 22 B/P (MAP) 132/74 132/74 116/53 (74) Pulse Ox 96 96 O2 Delivery Ventilator Ventilator 03/12/19 03/12/19 03/12/19 03/12/19 12:00 12:38 13:00 13:53 Pulse 74 Resp 22 B/P (MAP) 115/61 (79) Pulse Ox 95 95 O2 Delivery Mechanical Ventilator Ventilator Ventilator Ventilator 03/12/19 03/12/19 03/12/19 03/12/19 14:00 15:00 15:07 16:00 Pulse 78 74 Resp 22 22 B/P (MAP) 140/66 (90) 119/62 (81) Pulse Ox 94 93 94 O2 Delivery Ventilator Ventilator Ventilator Mechanical Ventilator 03/12/19 03/12/19 03/12/19 03/12/19 16:00 17:00 17:17 17:18 Temp 99.6 99.6 Pulse 74 70 70 Resp 22 22 B/P (MAP) 139/69 (92) 119/64 (82) 119/64 Pulse Ox 96 96 O2 Delivery Ventilator Ventilator Ventilator 03/12/19 03/12/19 03/12/19 03/12/19 17:18 17:26 18:00 19:00 Pulse 70 72 80 Resp 22 22 B/P (MAP) 119/64 136/74 (94) 155/84 (107) Pulse Ox 95 94 92 O2 Delivery Ventilator Ventilator Ventilator 03/12/19 03/12/19 03/12/19 03/12/19 20:00 20:00 20:15 21:00 Temp 99.6 99.6 Pulse 80 82 Resp 22 22 B/P (MAP) 154/83 (106) 166/86 (112) Pulse Ox 90 96 95 O2 Delivery Ventilator Mechanical Ventilator Ventilator Ventilator 03/12/19 03/12/19 03/12/19 03/12/19 21:29 22:00 23:00 23:34 Pulse 80 75 Resp 22 22 22 B/P (MAP) 157/85 (109) 170/80 (110) Pulse Ox 96 92 86 96 O2 Delivery Ventilator Ventilator Ventilator O2 Flow Rate 96.0 03/12/19 03/12/19 03/12/19 03/13/19 23:43 23:59 23:59 00:00 Pulse 78 78 Resp 22 B/P (MAP) 170/80 170/80 Pulse Ox 96 O2 Delivery Ventilator Mechanical Ventilator 03/13/19 03/13/19 03/13/19 03/13/19 00:01 00:13 01:00 02:00 Temp 98.2 98.2 Pulse 71 74 74 Resp 22 22 B/P (MAP) 182/81 (114) 138/68 (91) 129/68 (88) Pulse Ox 88 85 88 O2 Delivery Ventilator Ventilator Ventilator O2 Flow Rate 96.0 03/13/19 03/13/19 03/13/19 03/13/19 02:26 03:00 04:00 04:00 Temp 98.9 98.9 Pulse 73 70 Resp B/P (MAP) 127/68 (87) 109/59 (76) Pulse Ox 88 90 90 O2 Delivery Ventilator Ventilator Mechanical Ventilator Ventilator 03/13/19 03/13/19 03/13/19 03/13/19 04:23 04:53 05:00 05:36 Pulse 75 Resp B/P (MAP) 151/68 (95) Pulse Ox 90 90 90 90 O2 Delivery Ventilator Ventilator Ventilator Ventilator O2 Flow Rate 96.0 03/13/19 03/13/19 03/13/19 03/13/19 05:39 05:39 06:00 07:00 Pulse 88 88 76 91 Resp B/P (MAP) 140/75 140/75 134/64 (87) 132/63 (86) Pulse Ox 91 89 O2 Delivery Ventilator Ventilator Intake and Output 03/12/19 03/12/19 03/13/19 14:59 22:59 06:59 Intake Total 802.25 ml 2103.99 ml 1569.0 ml Output Total 710 ml 630 ml 500 ml Balance 92.25 ml 1473.99 ml 1069.0 ml YRIS RUIZ MD Mar 13, 2019 07:57
[2019-03-13 08:44] LABS: BASE EXCESS ABG 5 mmol/L (-3-3); HCO3 ABG 32 mmol/L (21-28); PCO2 ABG 58 mmHg (35-46); PO2 ABG 53 mmHg (75-108); SAT O2 ABG 87 % (92-99)
[2019-03-13 08:46] LABS: FIO2 ABG 100
[2019-03-13] MEDS: IPRATRPIUM/ALBUTEROL 0.5/2.5MG 3 ML NEBU. NEB SCH ×4 (08:50→19:53)
[2019-03-13] MEDS: NYSTATIN 100,000 UNIT/GM TOPICAL CREAM 15GM TUBE. TP SCH ×2 (09:00→20:43)
[2019-03-13] MEDS: CEFEPIME HCL IV Push 2 GM VIAL. IVP SCH ×2 (09:49→20:43)
[2019-03-13] MEDS: FUROSEMIDE 20 MG/2 ML VIAL. IVP SCH (09:49)
[2019-03-13] MEDS: ASPIRIN CHEWABLE 81 MG TABLET. PO SCH (09:49)
[2019-03-13] MEDS: FAMOTIDINE 20 MG/2 ML VIAL IVP SCH ×2 (09:49→20:43)
--- NOTE | 2019-03-13 10:03 | PDOC ---
Infectious Disease Note Subjective Subjective Sedated Intubated TPN ROS ROS no n/v/d/fever Vital Sign Vital Signs Vital Signs Date Time Temp Pulse Resp B/P (MAP) Pulse Ox O2 Delivery O2 Flow Rate FiO2 03/13/19 09:00 92 22 145/67 (93) 93 Ventilator 03/13/19 08:00 99.5 99.5 03/13/19 04:23 96.0 Physical Exam PHYSICAL EXAM GENERAL: Sedated and intubated. HEENT: PERRL, normal conj. ETT. OGT NECK: Supple. LUNGS: Decreased in bases HEART: S1, S2. ABDOMEN: Obese, decreased bowel sounds, no grimace or guarding to palpation GENITOURINARY: Coburn - He has 3+ scrotal swelling with less erythema. EXTREMITIES: No clubbing, cyanosis with 2 + edema. Generalized anasarca. RLE stump with chronic wound. No erythema/fluctuance/warmth SKIN: Warm to touch. 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 groin [employer]: Sedated [facility] Labs Lab Laboratory Tests Test 03/12/19 11:47 03/12/19 17:20 03/12/19 21:23 03/12/19 23:55 Glucose (Fingerstick) 294 mg/dL (70-99) 299 mg/dL (70-99) 274 mg/dL (70-99) 285 mg/dL (70-99) Test 03/13/19 05:20 03/13/19 05:28 03/13/19 08:30 Sodium Level 150 mmol/L (136-145) Potassium Level 4.9 mmol/L (3.5-5.1) Chloride Level 112 mmol/L (98-107) Carbon Dioxide Level 33 mmol/L (21-32) Anion Gap 5 (6-14) Blood Urea Nitrogen 80 mg/dL (8-26) Creatinine 1.7 mg/dL (0.7-1.3) Estimated GFR (Cockcroft-Gault) 41.9 Glucose Level 245 mg/dL (70-99) Calcium Level 9.1 mg/dL (8.5-10.1) Glucose (Fingerstick) 226 mg/dL (70-99) O2 Saturation 87 % (92-99) Arterial Blood pH 7.36 (7.35-7.45) Arterial Blood pCO2 at Patient Temp 58 mmHg (35-46) Arterial Blood pO2 at Patient Temp 53 mmHg (75-108) Arterial Blood HCO3 32 mmol/L (21-28) Arterial Blood Base Excess 5 mmol/L (-3-3) FiO2 100 Micro Microbiology 03/05/19 Blood Culture - Preliminary, Resulted NO GROWTH AFTER 3 DAYS 03/05/19 - Final, Complete 03/05/19 - Final, Complete 03/05/19 - Final, Complete 03/05/19 Gram Stain Evaluation - Final, Complete 03/05/19 Sputum Culture - Final, Complete 03/05/19 Sputum Result 1 - Final, Complete 03/02/19 Urine Culture - Final, Complete 03/02/19 Urine Culture Result 1 (LUCIO) - Final, Complete Objective Assessment Fever - improved Flank rash - no Eosinophilia but ? drug - had been on micafungin so less likely yeast Tachycardia - s/p Bolus/Digoxin and Metoprolol Increased GI residuals - Has been on/off ? Ileus vs DM gastroparesis Acute respiratory failure, intubated, increased infiltrates today - ARDS Scrotal edema/cellulitis. Status post code. Fluid overload - mild increase Acute kidney injury Distant history of group B strep, Acinetobacter, Porphyromonas, plus anaerobes. ARDS Plan Plan of Care Cefepime/ Nystatin F/u labs/cults Supportive care Critically ill prognosis poor d/w dr Elaine RAMIREZ,HEIDY Alvarez MD Mar 13, 2019 10:03
[2019-03-13] MEDS: INSULIN GLARGINE 300 UNITS/3 ML INSULN.PEN. SQ SCH ×2 (10:11→20:40)
[2019-03-13] MEDS ORDERED: FUROSEMIDE 20 MG/2 ML VIAL. IVP ONE (10:30)
--- NOTE | 2019-03-13 10:34 | PDOC ---
SUBJECTIVE Subjective Pt ventilated and sedated. Per his RN, they are unable to ween down O2 settings and a plan with palliative is tentatively planned for Saturday. OBJECTIVE Objective Physical Exam: General appearance: Intubated and sedated, on ventilator Head: Normocephalic, without obvious abnormality Eyes: closed Back: negative Lungs: Regular respirations with machine assistance, on ventilator Abdomen: soft, non-tender, obese Pelvic: + scrotal swelling, much more pliable than last check on Saturday. Buried phallus with Coburn catheter in place draining clear yellow urine. Device in good working order Vital Signs Vital Signs Date Time Temp Pulse Resp B/P (MAP) Pulse Ox O2 Delivery O2 Flow Rate FiO2 03/13/19 09:00 92 22 145/67 (93) 93 Ventilator 03/13/19 08:51 92 Ventilator 03/13/19 08:00 99.5 88 22 132/63 (86) 90 Ventilator 99.5 03/13/19 08:00 Mechanical Ventilator 03/13/19 07:00 91 22 132/63 (86) 89 Ventilator 03/13/19 06:00 76 22 134/64 (87) 91 Ventilator 03/13/19 05:39 88 140/75 03/13/19 05:39 88 140/75 03/13/19 05:36 90 Ventilator 03/13/19 05:00 75 22 151/68 (95) 90 Ventilator 03/13/19 04:53 22 90 Ventilator 03/13/19 04:23 22 90 Ventilator 96.0 03/13/19 04:00 98.9 70 22 109/59 (76) 90 Ventilator 98.9 03/13/19 04:00 Mechanical Ventilator 03/13/19 03:00 73 22 127/68 (87) 90 Ventilator 03/13/19 02:26 88 Ventilator 03/13/19 02:00 74 22 129/68 (88) 88 Ventilator 03/13/19 01:00 74 22 138/68 (91) 85 Ventilator 03/13/19 00:13 96.0 03/13/19 00:01 98.2 71 22 182/81 (114) 88 Ventilator 98.2 03/13/19 00:00 78 170/80 03/12/19 23:59 Mechanical Ventilator 03/12/19 23:59 78 170/80 03/12/19 23:43 22 96 Ventilator 03/12/19 23:34 96 Ventilator 03/12/19 23:00 75 22 170/80 (110) 86 Ventilator 03/12/19 22:00 80 22 157/85 (109) 92 Ventilator 03/12/19 21:29 22 96 96.0 03/12/19 21:00 82 22 166/86 (112) 95 Ventilator 03/12/19 20:15 96 Ventilator 03/12/19 20:00 Mechanical Ventilator 03/12/19 20:00 99.6 80 22 154/83 (106) 90 Ventilator 99.6 03/12/19 19:00 80 22 155/84 (107) 92 Ventilator 03/12/19 18:00 72 22 136/74 (94) 94 Ventilator 03/12/19 17:26 95 Ventilator 03/12/19 17:18 70 119/64 03/12/19 17:18 70 119/64 03/12/19 17:17 Ventilator 03/12/19 17:00 70 22 119/64 (82) 96 Ventilator 03/12/19 16:00 99.6 74 22 139/69 (92) 96 Ventilator 99.6 03/12/19 16:00 Mechanical Ventilator 03/12/19 15:07 94 Ventilator 03/12/19 15:00 74 22 119/62 (81) 93 Ventilator 03/12/19 14:00 78 22 140/66 (90) 94 Ventilator 03/12/19 13:53 Ventilator 03/12/19 13:00 74 22 115/61 (79) 95 Ventilator 03/12/19 12:38 95 Ventilator 03/12/19 12:00 Mechanical Ventilator 03/12/19 12:00 98.9 73 22 116/53 (74) 96 Ventilator 98.9 03/12/19 11:56 75 132/74 03/12/19 11:51 75 132/74 03/12/19 11:29 96 Ventilator 03/12/19 11:00 73 22 125/69 (87) 95 Ventilator I & O Intake and Output 03/13/19 07:00 Intake Total 4475.24 ml Output Total 1810 ml Balance 2665.24 ml IV Total 537.24 ml Tube Feeding 3201 ml Other 737 ml Output Urine Total 1410 ml Gastric Drainage Total 400 ml # Bowel Movements 1 PHYSICAL EXAM Physical Exam Physical Exam: General appearance: Intubated and sedated, on ventilator Head: Normocephalic, without obvious abnormality Eyes: closed Back: negative Lungs: Regular respirations with machine assistance, on ventilator Abdomen: soft, non-tender, obese Pelvic: + scrotal swelling, much more pliable than last check on Saturday. Buried phallus with Coburn catheter in place draining clear yellow urine. Device in good working order ASSESSMENT/PLAN Assessment/Plan Scrotal swelling continues to improve with diuresis. Nursing to continue to maintain Coburn catheter. Will follow peripherally over the weekend, but please call with questions or concerns. COMMENT Lab Laboratory Tests Test 03/12/19 11:47 03/12/19 17:20 03/12/19 21:23 03/12/19 23:55 Glucose (Fingerstick) 294 mg/dL (70-99) 299 mg/dL (70-99) 274 mg/dL (70-99) 285 mg/dL (70-99) Test 03/13/19 05:20 03/13/19 05:28 03/13/19 08:30 03/13/19 10:09 Sodium Level 150 mmol/L (136-145) Potassium Level 4.9 mmol/L (3.5-5.1) Chloride Level 112 mmol/L (98-107) Carbon Dioxide Level 33 mmol/L (21-32) Anion Gap 5 (6-14) Blood Urea Nitrogen 80 mg/dL (8-26) Creatinine 1.7 mg/dL (0.7-1.3) Estimated GFR (Cockcroft-Gault) 41.9 Glucose Level 245 mg/dL (70-99) Calcium Level 9.1 mg/dL (8.5-10.1) Glucose (Fingerstick) 226 mg/dL (70-99) 233 mg/dL (70-99) O2 Saturation 87 % (92-99) Arterial Blood pH 7.36 (7.35-7.45) Arterial Blood pCO2 at Patient Temp 58 mmHg (35-46) Arterial Blood pO2 at Patient Temp 53 mmHg (75-108) Arterial Blood HCO3 32 mmol/L (21-28) Arterial Blood Base Excess 5 mmol/L (-3-3) FiO2 100 CHRIS CHAVEZ APRN Mar 13, 2019 10:34
--- NOTE | 2019-03-13 12:12 | PDOC ---
SUBJECTIVE ROS Intubated, No change. OBJECTIVE Vital Signs Vital Signs Date Time Temp Pulse Resp B/P (MAP) Pulse Ox O2 Delivery O2 Flow Rate FiO2 03/13/19 11:35 93 Ventilator 03/13/19 11:00 114 26 131/82 (98) 03/13/19 08:00 99.5 99.5 03/13/19 04:23 96.0 I & 0 Intake and Output 03/13/19 07:00 Intake Total 4475.24 ml Output Total 1810 ml Balance 2665.24 ml IV Total 537.24 ml Tube Feeding 3201 ml Other 737 ml Output Urine Total 1410 ml Gastric Drainage Total 400 ml # Bowel Movements 1 PHYSICAL EXAM Physical Exam GENERAL: Sedated and intubated. HEENT: ETT. OGT NECK: Supple. LUNGS: CTA ant HEART: S1, S2. ABDOMEN: Distended with decreased bowel sounds GENITOURINARY: Coburn +, + scrotal swelling EXTREMITIES: 1+ edema. RLE stump with chronic wound. SKIN: 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 groin DIAGNOSIS/ASSESSMENT Assessment & Plan LEONARD- Cr up to 2-2.3 ,improving stable E-Lytes and acid base Acute hypoxemic /hypercapnic respiratory failure./ ARDS Anasarca- Improved Low dose IV Lasix , additional prn based on Pulm status and UOP Hypernatremia - Getting free water flushes , can increase as needed Right Renal mass Fever - ? Infection vs ileus vs drug reaction Acute respiratory failure, intubated, increased infiltrates today - ARDS Scrotal edema/cellulitis- Improved urology consulted In hospital CP arrest Dw RN COMMENT/RELEVANT DATA Meds Current Medications Medications (Trade) Dose Ordered Sig/Lula Start Time Stop Time Status Last Admin Dose Admin Acetaminophen (Tylenol Supp) 650 mg PRN Q6HRS PRN 03/02/19 17:15 03/03/19 17:39 650 MG Acetaminophen (Tylenol) 650 mg PRN Q6HRS PRN 03/04/19 11:45 03/10/19 20:48 650 MG Albumin Human 100 ml @ 100 mls/hr 1X ONCE 03/03/19 08:30 03/03/19 09:29 DC 03/03/19 08:52 100 MLS/HR Albuterol/ Ipratropium (Duoneb) 3 ml RTQID 02/28/19 16:00 03/13/19 11:35 3 ML Aspirin (Aspirin) 300 mg DAILY 02/28/19 09:00 02/28/19 09:42 DC Aspirin (Children'S Aspirin) 81 mg [id number] 03/07/19 08:00 03/13/19 09:49 81 MG Atropine Sulfate (ATROPINE 0.5mg SYRINGE) 2 mg STK-MED ONCE 02/27/19 16:21 03/03/19 16:22 DC Calcium Chloride 1000 mg/Dextrose 60 ml @ 120 mls/hr 1X ONCE 02/28/19 10:30 02/28/19 10:59 DC 02/28/19 11:03 120 MLS/HR Cefepime HCl (Maxipime) 2 gm Q12HR 03/10/19 21:00 03/13/19 09:49 2 GM Ceftriaxone Sodium (Rocephin) 1 gm Q24H 02/28/19 11:00 02/28/19 11:18 DC 02/28/19 11:03 1 GM Dextrose (Dextrose 50%-Water Syringe) 12.5 gm PRN Q15MIN PRN 03/09/19 17:15 Digoxin (Lanoxin) 250 mcg 1X ONCE 03/06/19 22:00 03/06/19 22:01 DC 03/06/19 22:00 250 MCG Diltiazem HCl (Cardizem) 30 mg Q6HRS 03/12/19 12:00 03/13/19 05:39 30 MG Diltiazem HCl 125 mg/Dextrose 125 ml @ 5 mls/hr CONT PRN 03/06/19 23:00 03/12/19 11:03 DC 03/12/19 08:20 5 MLS/HR Dopamine HCl/ Dextrose (DOPamine 400MG/ 250ML PREMIX) 400 mg STK-MED ONCE 02/27/19 16:21 03/03/19 16:22 DC Etomidate (Amidate) 20 mg STK-MED ONCE 02/28/19 06:59 02/28/19 07:00 DC Famotidine (Pepcid Vial) 20 mg Q12HR 03/02/19 21:00 03/13/19 09:49 20 MG Fentanyl Citrate 30 ml @ 0 mls/hr CONT PRN 03/05/19 04:45 03/13/19 09:54 4.95 MLS/HR Fentanyl Citrate (Fentanyl 2ml Vial) 25 mcg PRN Q30MIN PRN 02/28/19 07:45 02/28/19 09:42 DC Furosemide (Lasix) 20 mg 1X ONCE 03/13/19 10:30 03/13/19 10:31 DC 03/13/19 11:04 20 MG Haloperidol Lactate (Haldol Inj) 5 mg PRN Q6HRS PRN 02/28/19 15:15 03/09/19 14:07 5 MG Heparin Sodium (Porcine) (Heparin Sodium) 5,000 unit Q8HRS 02/27/19 17:00 03/13/19 05:45 5,000 UNIT Info (Icu Electrolyte Protocol) 1 ea DAILY PRN 03/02/19 07:45 03/02/19 07:45 DC Insulin Glargine (Lantus) 20 units BID 03/12/19 09:00 03/13/19 10:11 20 UNITS Insulin Human Lispro (HumaLOG) 0-9 UNITS Q6HRS 03/12/19 12:00 03/13/19 05:46 7 UNITS Labetalol HCl (Normodyne Iv Push) 20 mg PRN Q2HR PRN 03/06/19 17:15 03/06/19 21:29 20 MG Linezolid/Dextrose 300 ml @ 300 mls/hr Q12HR 03/05/19 09:00 03/06/19 06:42 DC 03/05/19 21:24 300 MLS/HR Lorazepam (Ativan) 1 mg PRN Q30MIN PRN 02/28/19 07:45 02/28/19 09:42 DC Lorazepam 100 mg/ Sodium Chloride 100 ml @ 0 mls/hr CONT PRN 03/03/19 22:00 03/03/19 22:18 1 MLS/HR Meperidine HCl (Demerol) 12.5 mg PRN Q30MIN PRN 02/28/19 07:45 02/28/19 09:42 DC Meropenem 500 mg/ Sodium Chloride 50 ml @ 100 mls/hr Q6HRS 03/03/19 12:00 03/05/19 06:47 DC 03/05/19 05:33 100 MLS/HR Metoclopramide HCl (Reglan Vial) 10 mg Q6HRS 03/07/19 08:00 03/08/19 07:51 DC Metoprolol Tartrate (Lopressor Vial) 5 mg Q6HRS 03/08/19 12:00 03/13/19 05:39 5 MG Metronidazole 100 ml @ 100 mls/hr Q8HRS 03/05/19 06:45 03/10/19 08:29 DC 03/10/19 05:45 100 MLS/HR Micafungin Sodium 100 mg/Dextrose 100 ml @ 100 mls/hr Q24H 02/28/19 12:00 03/05/19 06:47 DC 03/04/19 15:53 100 MLS/HR Midazolam HCl 100 ml @ 0 mls/hr CONT PRN 02/28/19 07:15 03/13/19 04:22 10 MLS/HR Morphine Sulfate (Morphine Sulfate) 2 mg PRN Q2HR PRN 02/27/19 16:45 02/28/19 16:44 DC Multi-Ingred Cream/Lotion/Oil/ Oint (Artificial Tears Eye Ointment) 1 jennifer PRN Q6HRS PRN 02/28/19 07:45 02/28/19 09:42 DC Nystatin (Mycostatin) 1 jennifer BID 03/06/19 09:00 03/13/19 09:00 1 JENNIFER Ondansetron HCl (Zofran) 4 mg PRN Q8HRS PRN 02/27/19 16:45 02/28/19 16:44 DC Perflutren Protein Type A Microsphe (Optison) 0.66 mg PRN 1X PRN 03/01/19 10:00 03/02/19 09:59 DC Propofol 100 ml @ 0 mls/hr CONT PRN 02/28/19 07:45 Rocuronium Ken[place] (Zemuron) 50 mg STK-MED ONCE 02/28/19 07:00 02/28/19 09:42 DC Sodium Chloride 500 ml @ 500 mls/hr 1X ONCE 03/06/19 00:45 03/06/19 01:44 DC 03/06/19 00:49 500 MLS/HR Sodium Chloride (Normal Saline Flush) 3 ml QSHIFT PRN 02/28/19 07:45 Sodium Cl/Sod Bicarb/Potass Cl/ PEG (Golytely) 2,000 ml 1X ONCE 03/06/19 08:00 03/06/19 08:01 DC 03/06/19 09:33 2,000 ML Vecuronium [place] (Norcuron Bolus) 8 mg PRN Q4HRS PRN 02/28/19 15:15 03/12/19 23:48 8 MG Lab Laboratory Tests Test 03/12/19 17:20 03/12/19 21:23 03/12/19 23:55 03/13/19 05:20 Glucose (Fingerstick) 299 mg/dL (70-99) 274 mg/dL (70-99) 285 mg/dL (70-99) Sodium Level 150 mmol/L (136-145) Potassium Level 4.9 mmol/L (3.5-5.1) Chloride Level 112 mmol/L (98-107) Carbon Dioxide Level 33 mmol/L (21-32) Anion Gap 5 (6-14) Blood Urea Nitrogen 80 mg/dL (8-26) Creatinine 1.7 mg/dL (0.7-1.3) Estimated GFR (Cockcroft-Gault) 41.9 Glucose Level 245 mg/dL (70-99) Calcium Level 9.1 mg/dL (8.5-10.1) Test 03/13/19 05:28 03/13/19 08:30 03/13/19 10:09 Glucose (Fingerstick) 226 mg/dL (70-99) 233 mg/dL (70-99) O2 Saturation 87 % (92-99) Arterial Blood pH 7.36 (7.35-7.45) Arterial Blood pCO2 at Patient Temp 58 mmHg (35-46) Arterial Blood pO2 at Patient Temp 53 mmHg (75-108) Arterial Blood HCO3 32 mmol/L (21-28) Arterial Blood Base Excess 5 mmol/L (-3-3) FiO2 100 Results All relevant outside records, renal labs, imaging studies, telemetry/EKG's were reviewed. GALO AMBRIZ MD Mar 13, 2019 12:12
--- NOTE | 2019-03-13 13:17 | RAD ---
EXAM: CHEST 1 VIEW History: Respiratory failure COMPARISON: 03/12/2019 TECHNIQUE: Single portable radiograph of the chest Findings/ impression: The ET tube, feeding tube, right-sided PICC line identified. There is diffuse parenchymal airspace opacities and interstitial opacities probably congestive changes or infiltrates slightly increased since prior exam. Probable bilateral pleural effusions again identified. Electronically signed by: Bharat Butler MD (03/13/2019 1:14 PM) [facility]
[2019-03-14] VITALS (24 sets, daily range): BP systolic 100–149; BP diastolic 56–80
[2019-03-14] MEDS: INSULIN LISPRO 300 UNITS/3 ML INSULN.PEN. SQ SCH ×4 (00:29→18:13)
[2019-03-14] MEDS: MIDAZOLAM 100mg/100ml NS BAG 100 ML IV PRN ×2 (00:30→15:28)
[2019-03-14] MEDS: METOPROLOL TARTRATE 5 MG/5 ML VIAL. IVP SCH ×4 (00:32→18:11)
[2019-03-14] MEDS: PROPOFOL 100 ML IV PRN ×2 (05:01→11:17)
[2019-03-14] MEDS: dilTIAZem HCL 30 MG TABLET PO SCH ×3 (05:10→18:12)
[2019-03-14] MEDS: HEPARIN for SUB-Q USE 5,000 UNIT/ML VIAL. SQ SCH ×3 (05:44→21:33)
--- NOTE | 2019-03-14 07:07 | PDOC ---
PULMONARY PROGRESS NOTES Subjective ON AC MODE SEDATED on versed, fentanyl, propofol 100% FIO2/12 PEEP, small ett secretion Vitals Vital Signs Date Time Temp Pulse Resp B/P (MAP) Pulse Ox O2 Delivery O2 Flow Rate FiO2 03/14/19 06:24 75 109/56 03/14/19 06:00 22 90 Ventilator 03/14/19 04:16 96.0 03/14/19 04:00 98.5 98.5 Comments ros as mentioned as above discussed w rn, rt, other sys otherwise neg on vent sedated HEENT: Other (nc at perrl nose clear orally intubated neck no lad, no thyromegaly) Lungs: Other (decrease bs) Cardiovascular: S1, S2, Other (decrease bs) Abdomen: Soft, Non-tender, Other (OBESE no mass) Extremities: Other (venous stasis left, right BKA) Skin: Warm Labs Laboratory Tests Test 03/12/19 08:00 03/12/19 11:47 03/12/19 17:20 03/12/19 21:23 O2 Saturation 93 % (92-99) Arterial Blood pH 7.41 (7.35-7.45) Arterial Blood pCO2 at Patient Temp 48 mmHg (35-46) Arterial Blood pO2 at Patient Temp 66 mmHg (75-108) Arterial Blood HCO3 30 mmol/L (21-28) Arterial Blood Base Excess 5 mmol/L (-3-3) FiO2 93 Glucose (Fingerstick) 294 mg/dL (70-99) 299 mg/dL (70-99) 274 mg/dL (70-99) Test 03/12/19 23:55 03/13/19 05:20 03/13/19 05:28 03/13/19 08:30 Glucose (Fingerstick) 285 mg/dL (70-99) 226 mg/dL (70-99) Sodium Level 150 mmol/L (136-145) Potassium Level 4.9 mmol/L (3.5-5.1) Chloride Level 112 mmol/L (98-107) Carbon Dioxide Level 33 mmol/L (21-32) Anion Gap 5 (6-14) Blood Urea Nitrogen 80 mg/dL (8-26) Creatinine 1.7 mg/dL (0.7-1.3) Estimated GFR (Cockcroft-Gault) 41.9 Glucose Level 245 mg/dL (70-99) Calcium Level 9.1 mg/dL (8.5-10.1) O2 Saturation 87 % (92-99) Arterial Blood pH 7.36 (7.35-7.45) Arterial Blood pCO2 at Patient Temp 58 mmHg (35-46) Arterial Blood pO2 at Patient Temp 53 mmHg (75-108) Arterial Blood HCO3 32 mmol/L (21-28) Arterial Blood Base Excess 5 mmol/L (-3-3) FiO2 100 Test 03/13/19 10:09 03/13/19 12:58 03/13/19 18:02 03/13/19 20:36 Glucose (Fingerstick) 233 mg/dL (70-99) 229 mg/dL (70-99) 211 mg/dL (70-99) 200 mg/dL (70-99) Test 03/14/19 00:26 03/14/19 05:36 Glucose (Fingerstick) 196 mg/dL (70-99) 239 mg/dL (70-99) Laboratory Tests Test 03/13/19 08:30 03/13/19 10:09 03/13/19 12:58 03/13/19 18:02 O2 Saturation 87 % (92-99) Arterial Blood pH 7.36 (7.35-7.45) Arterial Blood pCO2 at Patient Temp 58 mmHg (35-46) Arterial Blood pO2 at Patient Temp 53 mmHg (75-108) Arterial Blood HCO3 32 mmol/L (21-28) Arterial Blood Base Excess 5 mmol/L (-3-3) FiO2 100 Glucose (Fingerstick) 233 mg/dL (70-99) 229 mg/dL (70-99) 211 mg/dL (70-99) Test 03/13/19 20:36 03/14/19 00:26 03/14/19 05:36 Glucose (Fingerstick) 200 mg/dL (70-99) 196 mg/dL (70-99) 239 mg/dL (70-99) Medications Active Scripts Medications Dose Route/Sig Max Daily Dose Days Date Category Proair Hfa Inhaler (Albuterol Sulfate) 8.5 Gm Hfa.aer.ad 1 Puff INH PRN Q6HRS PRN 02/27/19 Reported Lantus Solostar (Insulin Glargine,Hum.rec.anlog) 100 Unit/1 Ml Insuln.pen 20 Unit SQ QHS 02/27/19 Reported Humalog (Insulin Lispro) 100 Unit/1 Ml Cartridge 6 Unit SQ TIDWMEALS 02/27/19 Reported Doxazosin Mesylate 2 Mg Tablet 2 Mg PO DAILY 02/27/19 Reported Omeprazole 40 Mg Capsule.dr 40 Mg PO DAILY 02/27/19 Reported Amlodipine Besylate 10 Mg Tablet 10 Mg PO DAILY 02/27/19 Reported Atorvastatin Calcium 20 Mg Tablet 20 Mg PO DAILY 02/27/19 Reported Atenolol 50 Mg Tablet 50 Mg PO DAILY 02/27/19 Reported Losartan Potassium 100 Mg Tablet 100 Mg PO DAILY 02/27/19 Reported Aspirin 81 Mg Tab.chew 81 Mg PO DAILY 02/27/19 Reported Glyburide 5 Mg Tablet 1 Tab PO BID 11/09/16 Reported Comments CXR REVIEWED b lat infilt effusion atelectasis, worse, ett ok Impression . 1. Acute hypoxemic /hypercapnic respiratory failure./ ARDS 2. sepsis./ ARDS 3. In-house cardiopulmonary arrest. 4. Normal EF / mild Pulmonary HTN 5. Acute on chronic right-sided heart failure. 6. Possible pneumonia. 7. Morbid obesity. 8. Diabetes. 9. ANASARCA 10. Abnormal CXR <Conclusion>ECHO The left ventricular systolic function is normal. The ejection fraction is 60-65%. There is normal LV segmental wall motion. Transmitral Doppler flow pattern is Grade I-abnormal relaxation pattern. Trace tricuspid regurgitation. Estimated PAP 33-38 mmHg. There is no evidence of significant pericardial effusion. VENOUS 02/28 Impression: 1. There is no evidence of deep venous thrombosis from the bilateral common femoral to popliteal veins. 2. There is nonspecific right groin lymph node. Plan . AC MODE ,12 PEEP [id number], cont vent support, setting reviewed, increase peep to 14 ANITBX PER ID lasix added per nephro, keep I<O. cxr worse, oxygenation worse, will give lasix 20 mg iv now bilateral venous Dopplers of lower extremities.NEG DVT and GI prophylaxis. Follow Cardiology.rec Enteral nutrition Follow cxr elevate hob discussed w rn, rt DNR now, poor prognosis Will re-discuss goals of care Saturday MALINDA CR MD Mar 14, 2019 07:07
[2019-03-14] MEDS ORDERED: FUROSEMIDE 20 MG/2 ML VIAL. IVP ONE (07:15)
--- NOTE | 2019-03-14 07:15 | NUR ---
Dr. Ricci here and increased peep from 12 to 14.
[2019-03-14] MEDS: ASPIRIN CHEWABLE 81 MG TABLET. PO SCH (07:40)
[2019-03-14] MEDS: FUROSEMIDE 20 MG/2 ML VIAL. IVP SCH (07:41)
[2019-03-14] MEDS: IPRATRPIUM/ALBUTEROL 0.5/2.5MG 3 ML NEBU. NEB SCH ×4 (08:11→19:59)
--- NOTE | 2019-03-14 08:57 | RAD ---
AP chest. AP view was taken of the chest. There are bilateral pleural effusions. Endotracheal tube is unchanged in position. NG tube extends into the abdomen. There are bilateral infiltrates in the lungs with a mild improvement specially on the left. Right PICC line is unchanged extending to the right atrium. IMPRESSION: 1. Mild improvement in left lung infiltrates. 2. Little other change. Electronically signed by: Roel Bonilla MD (03/14/2019 8:54 AM) [facility]
[2019-03-14] MEDS: FAMOTIDINE 20 MG/2 ML VIAL IVP SCH ×2 (09:00→20:56)
[2019-03-14] MEDS: CEFEPIME HCL IV Push 2 GM VIAL. IVP SCH ×2 (09:00→20:56)
[2019-03-14] MEDS: NYSTATIN 100,000 UNIT/GM TOPICAL CREAM 15GM TUBE. TP SCH ×2 (09:01→20:57)
--- NOTE | 2019-03-14 09:01 | PDOC ---
PROGRESS NOTES Chief Complaint Chief Complaint Assessment/Plan ACUTE RESP ARREST POST CODE ON FLOOR 02/27 Acute respiratory failure secondary to congestive heart failure, most probably acute on chronic diastolic. s/p intubation. Myocardial infarction ruled out. Hypernatremia secondary to severe dehydration will need to provide water flushes in order to correct electrolyte disturbance. High residuals on tube feedings no evidence of obstructive pattern on x ray done 03/05/2019 3 weeks of bilateral general scrotal swelling and tenderness. +dyspnea, abd swelling, leg swelling. POA, Dm2 obesity, extreme, morbid hx RLE BKA RLE stump with chronic wound. No erythema/warmth left foot nail onychomycosis needs attention when more clinically stable Acute renal failure ATN Renal CONSULT 3.1-1.8 chronic venous insuff left lower leg nonspecific perinephric stranding with slight asymmetric stranding adjacent to the left renal pelvis. Findings may be due to chronic kidney disease, though ascending urinary tract infection is not excluded. Bilateral lower lobe consolidation concerning for multifocal pneumonia aspiration not excluded. Right renal hypodensity measuring 2.5 cm is incompletely evaluated on noncontrast examination. Follow-up MRI or CT abdomen and pelvis renal protocol with contrast is recommended for further evaluation. Anasarca. bilateral external iliac lymphadenopathy, may be reactive, though follow-up CT abdomen and pelvis in 3 months is recommended to assess for stability/resolution. Nonobstructive left nephrolithiasis. Coronary artery calcifications. The left ventricular systolic function is normal.ejection fraction is 60-65% .normal LV segmental wall motion. Transmitral Doppler flow pattern is Grade I-abnormal relaxation pattern. Trace tricuspid regurgitation. Estimated PAP 33-38 mmHg. PLAN continue with supportive measures ventilatory support still requiring [id number]% oxygen and over 10 of PEEP, poor prognosis, Dr Vinson will address on Saturday if patient does not have improvement, he has been on support for 10 days now follow recommendations from business analyst consultant. UROLOGY CONSULT reviewed no intervention needed except for elevation and diuresis ID CONSULT continue wtih antibiotic as per ID ECHO noted critically ill, poor prognosis. History of Present Illness History of Present Illness Patient with no acute events reported overnight. continues to be vent dependent , PEEP of 12. Sodium up to 150, was unable to get free water boluses recently. CXR not significantly improved, but not worse. Plan: Cont ARDS treatment. Family meeting 03/16/19 Vitals Vitals Vital Signs Date Time Temp Pulse Resp B/P (MAP) Pulse Ox O2 Delivery O2 Flow Rate FiO2 03/14/19 08:10 89 Ventilator 03/14/19 08:00 98.7 65 22 110/57 (74) 98.7 03/14/19 04:16 96.0 Physical Exam Physical Exam GENERAL: Sedated and intubated. HEENT: PERRL, normal conj. ETT. OGT NECK: Supple. LUNGS: Decreased in bases HEART: S1, S2. ABDOMEN: Obese, decreased bowel sounds, no grimace or guarding to palpation GENITOURINARY: [place] - He has 3+ scrotal swelling with less erythema. EXTREMITIES: No clubbing, cyanosis with 2 + edema. Generalized anasarca. RLE stump with chronic wound. No erythema/fluctuance/warmth SKIN: Warm to touch. 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: Sedated RIJ General: Other (intubated.) Heart: Regular rate Lungs: Other (decrease bs) Abdomen: Normal bowel sounds Extremities: No cyanosis, Other (ANASARCA) Skin: Other (scale, lower leg ) Labs LABS Laboratory Tests Test 03/13/19 10:09 03/13/19 12:58 03/13/19 18:02 03/13/19 20:36 Glucose (Fingerstick) 233 mg/dL (70-99) 229 mg/dL (70-99) 211 mg/dL (70-99) 200 mg/dL (70-99) Test 03/14/19 00:26 03/14/19 05:36 Glucose (Fingerstick) 196 mg/dL (70-99) 239 mg/dL (70-99) Assessment and Plan Assessmemt and Plan Problems Medical Problems: (1) Acute renal failure Status: Acute (2) Edema Status: Acute (3) Shortness of breath Status: Acute Comment Review of Relevant I have reviewed the following items pascual (where applicable) has been applied. Labs Laboratory Tests Test 03/12/19 11:47 03/12/19 17:20 03/12/19 21:23 03/12/19 23:55 Glucose (Fingerstick) 294 mg/dL (70-99) 299 mg/dL (70-99) 274 mg/dL (70-99) 285 mg/dL (70-99) Test 03/13/19 05:20 03/13/19 05:28 03/13/19 08:30 03/13/19 10:09 Sodium Level 150 mmol/L (136-145) Potassium Level 4.9 mmol/L (3.5-5.1) Chloride Level 112 mmol/L (98-107) Carbon Dioxide Level 33 mmol/L (21-32) Anion Gap 5 (6-14) Blood Urea Nitrogen 80 mg/dL (8-26) Creatinine 1.7 mg/dL (0.7-1.3) Estimated GFR (Cockcroft-Gault) 41.9 Glucose Level 245 mg/dL (70-99) Calcium Level 9.1 mg/dL (8.5-10.1) Glucose (Fingerstick) 226 mg/dL (70-99) 233 mg/dL (70-99) O2 Saturation 87 % (92-99) Arterial Blood pH 7.36 (7.35-7.45) Arterial Blood pCO2 at Patient Temp 58 mmHg (35-46) Arterial Blood pO2 at Patient Temp 53 mmHg (75-108) Arterial Blood HCO3 32 mmol/L (21-28) Arterial Blood Base Excess 5 mmol/L (-3-3) FiO2 100 Test 03/13/19 12:58 03/13/19 18:02 03/13/19 20:36 03/14/19 00:26 Glucose (Fingerstick) 229 mg/dL (70-99) 211 mg/dL (70-99) 200 mg/dL (70-99) 196 mg/dL (70-99) Test 03/14/19 05:36 Glucose (Fingerstick) 239 mg/dL (70-99) Laboratory Tests Test 03/13/19 10:09 03/13/19 12:58 03/13/19 18:02 03/13/19 20:36 Glucose (Fingerstick) 233 mg/dL (70-99) 229 mg/dL (70-99) 211 mg/dL (70-99) 200 mg/dL (70-99) Test 03/14/19 00:26 03/14/19 05:36 Glucose (Fingerstick) 196 mg/dL (70-99) 239 mg/dL (70-99) Microbiology 03/05/19 Blood Culture - Final, Complete NO GROWTH AFTER 5 DAYS 03/08/19 - Final, Complete 03/08/19 - Final, Complete 03/08/19 - Final, Complete 03/08/19 Gram Stain Evaluation - Final, Complete 03/08/19 Sputum Culture - Final, Complete 03/08/19 Sputum Result 1 - Final, Complete 03/02/19 Urine Culture - Final, Complete 03/02/19 Urine Culture Result 1 (LUCIO) - Final, Complete 03/09/19 Aerobic Culture - Preliminary, Resulted 03/09/19 Aerobic Culture Result 1 (LUCIO) - Preliminary, Resulted 03/09/19 Gram Stain - Final, Resulted 03/09/19 Gram Stain Result 1 (LUCIO) - Final, Resulted 03/09/19 Gram Stain Result 2 (LUCIO) - Final, Resulted Medications Current Medications Ondansetron HCl (Zofran) 4 mg PRN Q8HRS PRN IV NAUSEA/VOMITING; Start 02/27/19 at 16:45; Stop 02/28/19 at 16:44; Status DC Morphine Sulfate (Morphine Sulfate) 2 mg PRN Q2HR PRN IV PAIN; Start 02/27/19 at 16:45; Stop 02/28/19 at 16:44; Status DC Acetaminophen (Tylenol) 650 mg PRN Q4HRS PRN PO FEVER Last administered on 02/27at 21:06; Start 02/27/19 at 16:45; Stop 02/28/19 at 16:44; Status DC Dextrose (Dextrose 50%-Water Syringe) 12.5 gm PRN Q15MIN PRN IV SEE COMMENTS; Start 02/27/19 at 16:45; Stop 03/10/19 at 13:48; Status DC Heparin Sodium (Porcine) (Heparin Sodium) 5,000 unit Q8HRS SQ Last administered on 03/14/19at 05:44; Start 02/27/19 at 17:00 Lorazepam (Ativan) 1 mg PRN Q8HRS PRN IV ANXIETY / AGITATION Last administered on 03/08/19at 03:37; Start 02/28/19 at 02:45 Etomidate (Amidate) 20 mg STK-MED ONCE IV ; Start 02/28/19 at 06:59; Stop at 07:00; Status DC Rocuronium Spurgeon (Zemuron) 50 mg STK-MED ONCE .ROUTE ; Start 02/28/19 at 07:00 ; Stop 02/28/19 at 09:42; Status DC Dopamine HCl/ Dextrose 250 ml @ 12.266 mls/ hr CONT PRN IV SEE I/O RECORD Last administered on 02/28/19at 08:06; Start 02/28/19 at 07:15 Fentanyl Citrate 30 ml @ 0 mls/hr CONT PRN IV SEE PROTOCOL; Start 02/28/19 at 07:15; Stop 02/28/19 at 07:59; Status DC Propofol 100 ml @ 0 mls/hr CONT PRN IV SEE PROTOCOL; Start 02/28/19 at 07:15; Stop 02/28/19 at 07:59; Status DC Fentanyl Citrate (Fentanyl 2ml Vial) 25 mcg PRN Q1HR PRN IV SEE COMMENTS; Start 02/28/19 at 07:15; Stop 02/28/19 at 07:59; Status DC Fentanyl Citrate (Fentanyl 2ml Vial) 50 mcg PRN Q1HR PRN IV SEE COMMENTS; Start 02/28/19 at 07:15; Stop 02/28/19 at 07:59; Status DC Midazolam HCl 100 ml @ 0 mls/hr CONT PRN IV SEE PROTOCOL Last administered on at 00:30; Start 02/28/19 at 07:15 Sodium Chloride 1,000 ml @ 1,000 mls/hr Q1H IV Last administered on 02/28/19at 07:32; Start 02/28/19 at 07:32; Stop 02/28/19 at 10:09; Status DC Fentanyl Citrate (Fentanyl 2ml Vial) 25 mcg PRN Q30MIN PRN IV see comments; Start 02/28/19 at 07:45; Stop 02/28/19 at 09:42; Status DC Lorazepam (Ativan) 1 mg PRN Q30MIN PRN IV SEDATION; Start 02/28/19 at 07:45; Stop 02/28/19 at 09:42; Status DC Fentanyl Citrate 30 ml @ 2.5 mls/hr CONT PRN PRN IV SEE I/O RECORD Last administered on 03/05/19at 03:44; Start 02/28/19 at 07:45; Stop 03/05/19 at 04:40; Status DC Propofol 100 ml @ 0 mls/hr CONT PRN IV SEE I/O RECORD Last administered on 03/14at 05:01; Start 02/28/19 at 07:45 Vecuronium Spurgeon (Norcuron Bolus) 10 mg PRN Q30MIN PRN IV SHIVERING; Start at 07:45; Stop 02/28/19 at 09:42; Status DC Meperidine HCl (Demerol) 12.5 mg PRN Q30MIN PRN IV SHIVERING; Start 02/28/19 at 07:45; Stop 02/28/19 at 09:42; Status DC Multi-Ingred Cream/Lotion/Oil/ Oint (Artificial Tears Eye Ointment) 1 jennifer PRN Q6HRS PRN OU 0.5 INCH FOR DRY EYE; Start 02/28/19 at 07:45; Stop 02/28/19 at 09 :42; Status DC Famotidine (Pepcid Vial) 20 mg BID IVP Last administered on 02/28/19at 11:03; Start 02/28/19 at 09:00; Stop 02/28/19 at 14:25; Status DC Aspirin (Aspirin) 300 mg DAILY MN ; Start 02/28/19 at 09:00; Stop 02/28/19 at 09 :42; Status DC Sodium Chloride (Normal Saline Flush) 3 ml QSHIFT PRN IV AFTER MEDS AND BLOOD DRAWS; Start 02/28/19 at 07:45 Acetaminophen (Tylenol) 650 mg Q6HRS NG ; Start 02/28/19 at 12:00; Stop at 12:00; Status DC Acetaminophen (Tylenol Supp) 650 mg PRN Q6HRS PRN MN MILD PAIN / TEMP; Start at 07:45; Stop 03/01/19 at 07:45; Status DC Acetaminophen (Tylenol) 650 mg PRN Q6HRS PRN NG MILD PAIN / TEMP; Start at 07:45; Stop 03/01/19 at 07:45; Status DC Info (Icu Electrolyte Protocol) 1 ea DAILY PRN MC PER PROTOCOL; Start 03/02/19 at 07:45; Stop 03/02/19 at 07:45; Status DC Furosemide (Lasix) 60 mg 1X ONCE IVP Last administered on 02/28/19at 08:30; Start 02/28/19 at 08:30; Stop 02/28/19 at 08:31; Status DC Ceftriaxone Sodium (Rocephin) 1 gm Q24H IVP Last administered on 02/28/19 11: 03; Start 02/28/19 at 11:00; Stop 02/28/19 at 11:18; Status DC Calcium Chloride 1000 mg/Dextrose 60 ml @ 120 mls/hr 1X ONCE IV Last administered on 02/28/19at 11:03; Start 02/28/19 at 10:30; Stop 02/28/19 at 10:59 ; Status DC Meropenem 500 mg/ Sodium Chloride 50 ml @ 100 mls/hr Q8HRS IV Last administered on 03/03/19 06:24; Start 02/28/19 at 14:00; Stop 03/03/19 at 07:04; Status DC Linezolid/Dextrose 300 ml @ 300 mls/hr Q12HR IV Last administered on 03/03/19at 20:00; Start 02/28/19 at 11:30; Stop 03/04/19 at 08:55; Status DC Micafungin Sodium 100 mg/Dextrose 100 ml @ 100 mls/hr Q24H IV Last administered on 03/04/19at 15:53; Start 02/28/19 at 12:00; Stop 03/05/19 at 06:47; Status DC Furosemide (Lasix) 40 mg [id number] IVP Last administered on 03/02/19at 14:06; Start 02/28/19 at 14:00; Stop 03/02/19 at 17:02; Status DC Famotidine (Pepcid Vial) 20 mg QHS IVP Last administered on 03/01/19at 21:24; Start 02/28/19 at 21:00; Stop 03/02/19 at 10:07; Status DC Albuterol/ Ipratropium (Duoneb) 3 ml RTQID NEB Last administered on 03/14/19at 08:11; Start 02/28/19 at 16:00 Haloperidol Lactate (Haldol Inj) 5 mg PRN Q6HRS PRN IVP AGITATION 2ND CHOICE Last administered on 03/09/19at 14:07; Start 02/28/19 at 15:15 Vecuronium Spurgeon (Norcuron Bolus) 8 mg PRN Q4HRS PRN IV MUSCLE SPASMS Last administered on 03/12/19at 23:48; Start 02/28/19 at 15:15 Perflutren Protein Type A Microsphe (Optison) 0.66 mg PRN 1X PRN IV SEE COMMENTS; Start 03/01/19 at 10:00; Stop 03/02/19 at 09:59; Status DC Digoxin (Lanoxin) 125 mcg 1X STAT IV ; Start 03/01/19 at 15:34; Stop 03/01/19 at 16:00; Status DC Sodium Chloride 500 ml @ 500 mls/hr 1X ONCE IV Last administered on at 18:46; Start 03/01/19 at 18:45; Stop 03/01/19 at 19:44; Status DC Famotidine (Pepcid Vial) 20 mg Q12HR IVP Last administered on 03/13/19at 20:43; Start 03/02/19 at 21:00 Furosemide (Lasix) 40 mg DAILY IVP Last administered on 03/04/19at 09:52; Start 03/03/19 at 09:00; Stop 03/04/19 at 12:13; Status DC Acetaminophen (Tylenol Supp) 650 mg PRN Q6HRS PRN MN MILD PAIN / TEMP Last administered on 03/03/19at 17:39; Start 03/02/19 at 17:15 Meropenem 500 mg/ Sodium Chloride 50 ml @ 100 mls/hr Q6HRS IV Last administered on 03/05/19at 05:33; Start 03/03/19 at 12:00; Stop 03/05/19 at 06:47; Status DC Albumin Human 100 ml @ 100 mls/hr 1X ONCE IV Last administered on 03/03/19at 08 :52; Start 03/03/19 at 08:30; Stop 03/03/19 at 09:29; Status DC Atropine Sulfate (ATROPINE 0.5mg SYRINGE) 2 mg STK-MED ONCE .ROUTE ; Start 02/27 at 16:21; Stop 03/03/19 at 16:22; Status DC Dopamine HCl/ Dextrose (DOPamine 400MG/ 250ML PREMIX) 400 mg STK-MED ONCE IV ; Start 02/27/19 at 16:21; Stop 03/03/19 at 16:22; Status DC Furosemide (Lasix) 40 mg 1X ONCE IVP Last administered on 03/03/19 18:46; Start 03/03/19 at 18:45; Stop 03/03/19 at 18:46; Status DC Lorazepam 100 mg/ Sodium Chloride 100 ml @ 0 mls/hr CONT PRN IV SEE PROTOCOL Last administered on 03/03/19 22:18; Start 03/03/19 at 22:00 Acetaminophen (Tylenol) 650 mg PRN Q6HRS PRN PEG MILD PAIN / TEMP Last administered on 03/10/19 20:48; Start 03/04/19 at 11:45 Furosemide (Lasix) 40 mg BID92 IVP Last administered on 03/06/19 08:38; Start 03/04/19 at 14:00; Stop 03/06/19 at 13:30; Status DC Fentanyl Citrate 30 ml @ 0 mls/hr CONT PRN IV SEE PROTOCOL Last administered on 03/14/19 03:46; Start 03/05/19 at 04:45 Cefepime HCl (Maxipime) 2 gm Q8HRS IVP Last administered on 03/10/19 05:43; Start 03/05/19 at 06:45; Stop 03/10/19 at 08:29; Status DC Metronidazole 100 ml @ 100 mls/hr Q8HRS IV Last administered on 03/10/19 05:45 ; Start 03/05/19 at 06:45; Stop 03/10/19 at 08:29; Status DC Linezolid/Dextrose 300 ml @ 300 mls/hr Q12HR IV Last administered on 03/05/19 21:24; Start 03/05/19 at 09:00; Stop 03/06/19 at 06:42; Status DC Metoclopramide HCl (Reglan Vial) 10 mg QIDACHS IV Last administered on 20:43; Start 03/05/19 at 11:30; Stop 03/07/19 at 07:37; Status DC Insulin Glargine (Lantus) 12 units BID SQ Last administered on 03/09/19 09:29; Start 03/05/19 at 09:00; Stop 03/09/19 at 17:11; Status DC Digoxin (Lanoxin) 500 mcg 1X ONCE IV Last administered on 03/06/19 00:48; Start 03/06/19 at 00:45; Stop 03/06/19 at 00:46; Status DC Metoprolol Tartrate (Lopressor Vial) 5 mg 1X ONCE IVP Last administered on 03/06 00:53; Start 03/06/19 at 00:45; Stop 03/06/19 at 00:46; Status DC Sodium Chloride 500 ml @ 500 mls/hr 1X ONCE IV Last administered on 03/06/19at 00:49; Start 03/06/19 at 00:45; Stop 03/06/19 at 01:44; Status DC Nystatin (Mycostatin) 1 jennifer BID TP Last administered on 03/13/19 20:43; Start 03/06/19 at 09:00 Sodium Cl/Sod Bicarb/Potass Cl/ PEG (Golytely) 2,000 ml 1X ONCE PO Last administered on 03/06/19 09:33; Start 03/06/19 at 08:00; Stop 03/06/19 at 08:01; Status DC Furosemide (Lasix) 40 mg DAILY08 IVP Last administered on 03/09/19 09:27; Start 03/07/19 at 08:00; Stop 03/09/19 at 12:45; Status DC Metoprolol Tartrate (Lopressor Vial) 10 mg 1X ONCE IVP Last administered on 16:08; Start 03/06/19 at 15:15; Stop 03/06/19 at 15:16; Status DC Metoprolol Tartrate (Lopressor Vial) 5 mg Q6HRS IVP Last administered on 17:03; Start 03/06/19 at 18:00; Stop 03/07/19 at 18:27; Status DC Aspirin (Children'S Aspirin) 81 mg 1X ONCE PO Last administered on 03/06/19 18 :18; Start 03/06/19 at 17:00; Stop 03/06/19 at 17:01; Status DC Aspirin (Children'S Aspirin) 81 mg DAILYWBKFT PO Last administered on 07:40; Start 03/07/19 at 08:00 Labetalol HCl (Normodyne Iv Push) 20 mg PRN Q2HR PRN IVP HYPERTENSION, SEE COMMENTS Last administered on 4/5/19at 21:29; Start 03/06/19 at 17:15 Digoxin (Lanoxin) 250 mcg 1X ONCE IV Last administered on 03/06/19at 22:00; Start 03/06/19 at 22:00; Stop 03/06/19 at 22:01; Status DC Diltiazem HCl 125 mg/Dextrose 125 ml @ 5 mls/hr CONT PRN IV SEE I/O RECORD Last administered on 03/12/19at 08:20; Start 03/06/19 at 23:00; Stop 03/12/19 at 11:03; Status DC Metoclopramide HCl (Reglan Vial) 10 mg Q6HRS IV ; Start 03/07/19 at 08:00; Stop 03/08/19 at 07:51; Status DC Metoprolol Tartrate (Lopressor Vial) 5 mg Q6HRS IVP Last administered on at 06:24; Start 03/08/19 at 12:00 Furosemide (Lasix) 40 mg 1X ONCE IVP Last administered on 03/08/19at 21:21; Start 03/08/19 at 21:00; Stop 03/08/19 at 21:01; Status DC Furosemide (Lasix) 20 mg DAILY08 IVP ; Start 03/10/19 at 08:00; Stop 03/10/19 at 08:00; Status DC Furosemide (Lasix) 20 mg DAILY08 IVP Last administered on 03/14/19at 07:41; Start 03/10/19 at 08:00 Insulin Glargine (Lantus) 16 units BID SQ Last administered on 03/12/19at 00:09 ; Start 03/09/19 at 21:00; Stop 03/12/19 at 07:18; Status DC Insulin Human Lispro (HumaLOG) 0-9 UNITS Q6HRS SQ Last administered on at 05:45; Start 03/09/19 at 18:00; Stop 03/12/19 at 07:18; Status DC Dextrose (Dextrose 50%-Water Syringe) 12.5 gm PRN Q15MIN PRN IV SEE COMMENTS; Start 03/09/19 at 17:15 Cefepime HCl (Maxipime) 2 gm Q12HR IVP Last administered on 03/13/19at 20:43; Start 03/10/19 at 21:00 Insulin Human Lispro (HumaLOG) 15 units 1X ONCE SQ Last administered on at 00:14; Start 03/11/19 at 00:00; Stop 03/11/19 at 00:01; Status DC Insulin Glargine (Lantus) 20 units BID SQ Last administered on 03/13/19at 20:40 ; Start 03/12/19 at 09:00 Insulin Human Lispro (HumaLOG) 0-9 UNITS Q6HRS SQ Last administered on at 05:40; Start 03/12/19 at 12:00 Diltiazem HCl (Cardizem) 30 mg Q6HRS PO Last administered on 03/14/19at 05:10; Start 03/12/19 at 12:00 Furosemide (Lasix) 20 mg 1X ONCE IVP Last administered on 03/13/19at 11:04; Start 03/13/19 at 10:30; Stop 03/13/19 at 10:31; Status DC Furosemide (Lasix) 20 mg 1X ONCE IVP Last administered on 03/14/19at 07:40; Start 03/14/19 at 07:15; Stop 03/14/19 at 07:16; Status DC Active Scripts Active Reported Proair Hfa Inhaler (Albuterol Sulfate) 8.5 Gm Hfa.aer.ad 1 Puff INH PRN Q6HRS PRN Lantus Solostar (Insulin Glargine,Hum.rec.anlog) 100 Unit/1 Ml Insuln.pen 20 Unit SQ QHS Humalog (Insulin Lispro) 100 Unit/1 Ml Cartridge 6 Unit SQ TIDWMEALS Doxazosin Mesylate 2 Mg Tablet 2 Mg PO DAILY Omeprazole 40 Mg Capsule.dr 40 Mg PO DAILY Amlodipine Besylate 10 Mg Tablet 10 Mg PO DAILY Atorvastatin Calcium 20 Mg Tablet 20 Mg PO DAILY Atenolol 50 Mg Tablet 50 Mg PO DAILY Losartan Potassium 100 Mg Tablet 100 Mg PO DAILY Aspirin 81 Mg Tab.chew 81 Mg PO DAILY Glyburide 5 Mg Tablet 1 Tab PO BID Vitals/I & O Vital Sign - Last 24 Hours 03/13/19 03/13/19 03/13/19 03/13/19 10:00 11:00 11:35 12:00 Temp 99.5 99.5 Pulse 88 114 116 Resp 23 26 25 B/P (MAP) 132/76 (94) 131/82 (98) 131/82 (98) Pulse Ox 96 91 93 98 O2 Delivery Ventilator Ventilator Ventilator Ventilator 03/13/19 03/13/19 03/13/19 03/13/19 12:00 12:59 12:59 13:00 Pulse 116 115 112 Resp 25 B/P (MAP) 123/66 123/66 123/66 (85) Pulse Ox 96 O2 Delivery Mechanical Ventilator Ventilator 03/13/19 03/13/19 03/13/19 03/13/19 14:00 15:00 16:00 16:00 Temp 100.3 100.3 Pulse 92 90 92 Resp 30 22 B/P (MAP) 99/59 (72) 105/54 (71) 95/59 (71) Pulse Ox 90 90 90 O2 Delivery Ventilator Ventilator Mechanical Ventilator Ventilator 03/13/19 03/13/19 03/13/19 03/13/19 16:13 17:12 18:00 18:03 Pulse 118 104 130 Resp B/P (MAP) 113/78 (90) 113/78 (90) 113/78 Pulse Ox 90 89 92 O2 Delivery Ventilator Ventilator Ventilator 03/13/19 03/13/19 03/13/19 03/13/19 18:03 19:00 19:51 19:53 Pulse 115 95 Resp B/P (MAP) 113/78 124/66 (85) Pulse Ox 91 91 90 O2 Delivery Ventilator Ventilator 03/13/19 03/13/19 03/13/19 03/13/19 20:00 20:00 20:21 21:00 Temp 99.2 99.2 Pulse 106 126 Resp 22 B/P (MAP) 114/72 (86) 134/65 (88) Pulse Ox 92 89 O2 Delivery Ventilator Mechanical Ventilator Ventilator Ventilator 03/13/19 03/13/19 03/13/19 03/13/19 21:54 22:00 22:47 23:00 Pulse 135 125 114 Resp B/P (MAP) 134/65 113/71 (85) 115/70 (85) Pulse Ox 89 89 89 O2 Delivery Ventilator Ventilator Ventilator 03/13/19 03/14/19 03/14/19 03/14/19 23:59 00:01 00:22 00:32 Temp 99.3 99.3 Pulse 103 101 Resp 22 22 B/P (MAP) 100/66 (77) 117/65 Pulse Ox 87 89 O2 Delivery Mechanical Ventilator Ventilator O2 Flow Rate 96.0 03/14/19 03/14/19 03/14/19 03/14/19 01:00 01:49 02:00 03:00 Pulse 103 108 109 Resp 22 22 B/P (MAP) 115/65 (82) 131/80 (97) 114/69 (84) Pulse Ox 88 89 88 88 O2 Delivery Ventilator Ventilator Ventilator Ventilator 03/14/19 03/14/19 03/14/19 03/14/19 03:46 04:00 04:00 04:16 Temp 98.5 98.5 Pulse 129 Resp B/P (MAP) 115/67 (83) Pulse Ox 88 81 88 O2 Delivery Ventilator Ventilator Mechanical Ventilator O2 Flow Rate 96.0 96.0 03/14/19 03/14/19 03/14/19 03/14/19 05:00 05:00 05:10 06:00 Pulse 126 122 75 Resp B/P (MAP) 102/62 (75) 102/62 109/56 (73) Pulse Ox 89 87 90 O2 Delivery Ventilator Ventilator Ventilator 03/14/19 03/14/19 03/14/19 03/14/19 06:24 07:00 07:45 08:00 Temp 98.7 98.7 Pulse 75 68 65 Resp 22 B/P (MAP) 109/56 115/59 (77) 110/57 (74) Pulse Ox 89 89 O2 Delivery Ventilator Mechanical Ventilator Ventilator 03/14/19 08:10 Pulse Ox 89 O2 Delivery Ventilator Intake and Output 03/13/19 03/13/19 03/14/19 15:00 23:00 07:00 Intake Total 190 ml 629.2 ml 1603.28 ml Output Total 900 ml 580 ml 445 ml Balance -710 ml 49.2 ml 1158.28 ml YRIS RUIZ MD Mar 14, 2019 09:01
[2019-03-14 09:02] LABS: BASE EXCESS ABG 6 mmol/L (-3-3); FIO2 ABG 100; HCO3 ABG 32 mmol/L (21-28); PCO2 ABG 50 mmHg (35-46); PO2 ABG 54 mmHg (75-108); SAT O2 ABG 88 % (92-99)
[2019-03-14] MEDS: INSULIN GLARGINE 300 UNITS/3 ML INSULN.PEN. SQ SCH ×2 (09:09→21:30)
--- NOTE | 2019-03-14 09:30 | NUR ---
ABG results called to Dr. Ricci, instructed to peep to 15. RT notified.
--- NOTE | 2019-03-14 10:02 | PDOC ---
Infectious Disease Note Subjective Subjective Orally intubated and sedated, FiO2 100% PEEP 14 Tube feedings 30 ml/hr No fevers since yesterday, Tmax 100.3 ROS ROS unobtainable Vital Sign Vital Signs Vital Signs Date Time Temp Pulse Resp B/P (MAP) Pulse Ox O2 Delivery O2 Flow Rate FiO2 03/14/19 09:25 22 87 03/14/19 09:00 73 124/75 (91) Ventilator 03/14/19 08:00 98.7 98.7 03/14/19 04:16 96.0 Physical Exam PHYSICAL EXAM GENERAL: Sedated and intubated. HEENT: PERRL, ETT. OGT NECK: Supple. LUNGS: Decreased in bases HEART: S1, S2. 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 RLE stump with chronic wound. No erythema/ fluctuance/warmth. no cyanosis SKIN: Warm to touch. 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 groin - better COMMUNITY REPRESENTATIVE: Sedated on vent, resists passive ROM right arm RUE-PICC clean Labs Lab Laboratory Tests Test 03/13/19 10:09 03/13/19 12:58 03/13/19 18:02 03/13/19 20:36 Glucose (Fingerstick) 233 mg/dL (70-99) 229 mg/dL (70-99) 211 mg/dL (70-99) 200 mg/dL (70-99) Test 03/14/19 00:26 03/14/19 05:36 03/14/19 08:50 Glucose (Fingerstick) 196 mg/dL (70-99) 239 mg/dL (70-99) O2 Saturation 88 % (92-99) Arterial Blood pH 7.42 (7.35-7.45) Arterial Blood pCO2 at Patient Temp 50 mmHg (35-46) Arterial Blood pO2 at Patient Temp 54 mmHg (75-108) Arterial Blood HCO3 32 mmol/L (21-28) Arterial Blood Base Excess 6 mmol/L (-3-3) FiO2 100 CXR 1. Mild improvement in left lung infiltrates. 2. Little other change. Objective Assessment Fever Flank rash - no Eosinophilia but ? drug - had been on micafungin so less likely yeast, better Tachycardia - s/p Bolus/Digoxin and Metoprolol Increased GI residuals - Has been on/off ? 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 Status post code. Fluid overload - mild increase Acute kidney injury Distant history of group B strep, Acinetobacter, Porphyromonas, plus anaerobes. Plan Plan of Care Cefepime Nystatin Cultures NGTD Supportive care Critically ill Prognosis poor Family meeting 03/16 Patient seen and examined. Chart reviewed in detail. Case d/w OPTOMETRIST/PRACTICE OWNER. Agree with above plan. [facility] Mar 14, 2019 10:02 MARC VALENTINO MD Mar 14, 2019 20:40
[2019-03-14 10:12] LABS: ALBUMIN 1.8 g/dL (3.4-5.0); CALCIUM 8.6 mg/dL (8.5-10.1); CREATININE 1.7 mg/dL (0.7-1.3); GFR 41.9; PHOSPHORUS 4.2 mg/dL (2.6-4.7); POTASSIUM 4.8 mmol/L (3.5-5.1)
--- NOTE | 2019-03-14 14:03 | PDOC ---
Renal-Progress Notes Subjective Notes Notes REMAINS INTUBATED History of Present Illness Hx of present illness NOT MUCH BETTER Vitals Vitals Vital Signs Date Time Temp Pulse Resp B/P (MAP) Pulse Ox O2 Delivery O2 Flow Rate FiO2 03/14/19 13:00 75 22 125/73 (90) 92 Ventilator 03/14/19 12:00 98.9 98.9 03/14/19 04:16 96.0 Weight Weight [ ] Stability Assess. Stability Assess.: other (intubated ) I.O. Intake and Output Intake and Output 03/14/19 07:00 Intake Total 2422.48 ml Output Total 1925 ml Balance 497.48 ml IV Total 439.48 ml Tube Feeding 1309 ml Other 674 ml Output Urine Total 1925 ml Gastric Drainage Total 0 ml Labs Labs Laboratory Tests Test 03/13/19 18:02 03/13/19 20:36 03/14/19 00:26 03/14/19 05:36 Glucose (Fingerstick) 211 mg/dL (70-99) 200 mg/dL (70-99) 196 mg/dL (70-99) 239 mg/dL (70-99) Test 03/14/19 08:50 03/14/19 09:50 03/14/19 12:05 O2 Saturation 88 % (92-99) Arterial Blood pH 7.42 (7.35-7.45) Arterial Blood pCO2 at Patient Temp 50 mmHg (35-46) Arterial Blood pO2 at Patient Temp 54 mmHg (75-108) Arterial Blood HCO3 32 mmol/L (21-28) Arterial Blood Base Excess 6 mmol/L (-3-3) FiO2 100 Sodium Level 151 mmol/L (136-145) Potassium Level 4.8 mmol/L (3.5-5.1) Chloride Level 111 mmol/L (98-107) Carbon Dioxide Level 33 mmol/L (21-32) Anion Gap 7 (6-14) Blood Urea Nitrogen 76 mg/dL (8-26) Creatinine 1.7 mg/dL (0.7-1.3) Estimated GFR (Cockcroft-Gault) 41.9 Glucose Level 216 mg/dL (70-99) Calcium Level 8.6 mg/dL (8.5-10.1) Phosphorus Level 4.2 mg/dL (2.6-4.7) Albumin 1.8 g/dL (3.4-5.0) Glucose (Fingerstick) 184 mg/dL (70-99) Micro Micro Microbiology 03/05/19 Blood Culture - Final, Complete NO GROWTH AFTER 5 DAYS 03/08/19 - Final, Complete 03/08/19 - Final, Complete 03/08/19 - Final, Complete 03/08/19 Gram Stain Evaluation - Final, Complete 03/08/19 Sputum Culture - Final, Complete 03/08/19 Sputum Result 1 - Final, Complete 03/02/19 Urine Culture - Final, Complete 03/02/19 Urine Culture Result 1 (LUCIO) - Final, Complete 03/09/19 Aerobic Culture - Preliminary, Resulted 03/09/19 Aerobic Culture Result 1 (LUCIO) - Preliminary, Resulted 03/09/19 Gram Stain - Final, Resulted 03/09/19 Gram Stain Result 1 (LUCIO) - Final, Resulted 03/09/19 Gram Stain Result 2 (LUCIO) - Final, Resulted Review of Systems Constitutional: yes: unresponsive, other (INTUBATED AND SEDATED) Physical Exam General Appearance: other (SEDATED) Skin: warm Respiratory: decreased breath sounds Heart: S1S2 Abdomen: soft, N/T, bowel sounds present Genitourinary: bladder flat Extremities: pulses present Neurology: other (sedated) Assessment Assessment IMP LEONARD-BETTER WITH CR DOWN TO 1.7 ANASARCA-PERSISTS BUT BETTER HYPERNATREMIA-NA OF 151 ACUTE HYPERCARBIC RESP FAILURE-FIO2 100% NOW SCROTAL EDEMA DUE TO ANASARCA RIGHT RENAL MASS PROB PNEUMONIA PROB SEPSIS PROB RIGHT SIDED CHF WITH DIASTOLIC DYSFUNCTION MORBID OBESITY MALNUTRITION PLAN ANTIBIOTICS VENT SUPPORT INCREASE LASIX EVAL RENAL MASS LATER CONT TF AND INCREASE FREE WATER D/W CRITICAL CARE WILL FOLLOW DEEPTHI MOYA MD Mar 14, 2019 14:03
[2019-03-14] MEDS: FUROSEMIDE 40 MG/4 ML VIAL. IVP SCH (21:34)
[2019-03-15] VITALS (24 sets, daily range): BP systolic 105–146; BP diastolic 57–77
[2019-03-15] MEDS: METOPROLOL TARTRATE 5 MG/5 ML VIAL. IVP SCH ×4 (01:25→17:33)
[2019-03-15] MEDS: dilTIAZem HCL 30 MG TABLET PO SCH ×4 (01:26→17:32)
[2019-03-15] MEDS: INSULIN LISPRO 300 UNITS/3 ML INSULN.PEN. SQ SCH ×4 (01:28→17:44)
[2019-03-15] MEDS: MIDAZOLAM 100mg/100ml NS BAG 100 ML IV PRN (02:33)
[2019-03-15] MEDS: PROPOFOL 100 ML IV PRN ×6 (04:15→21:11)
[2019-03-15] MEDS: HEPARIN for SUB-Q USE 5,000 UNIT/ML VIAL. SQ SCH ×3 (05:45→21:13)
[2019-03-15] MEDS: FUROSEMIDE 40 MG/4 ML VIAL. IVP SCH ×3 (06:03→21:12)
--- NOTE | 2019-03-15 06:42 | PDOC ---
PULMONARY PROGRESS NOTES Subjective ON AC MODE SEDATED on versed, fentanyl, propofol 100% FIO2/14 PEEP, small ett secretion Vitals Vital Signs Date Time Temp Pulse Resp B/P (MAP) Pulse Ox O2 Delivery O2 Flow Rate FiO2 03/15/19 06:00 65 22 114/73 (87) 91 Ventilator 03/15/19 04:00 99.2 99.2 03/14/19 20:54 96.0 Comments ros as mentioned as above discussed w rn, rt, other sys otherwise neg on vent sedated HEENT: Other (nc at perrl nose clear orally intubated neck no lad, no thyromegaly) Lungs: Other (decrease bs) Cardiovascular: S1, S2, Other (decrease bs) Abdomen: Soft, Non-tender, Other (OBESE no mass) Extremities: Other (venous stasis and edema left, right BKA) Skin: Warm Labs Laboratory Tests Test 03/13/19 08:30 03/13/19 10:09 03/13/19 12:58 03/13/19 18:02 O2 Saturation 87 % (92-99) Arterial Blood pH 7.36 (7.35-7.45) Arterial Blood pCO2 at Patient Temp 58 mmHg (35-46) Arterial Blood pO2 at Patient Temp 53 mmHg (75-108) Arterial Blood HCO3 32 mmol/L (21-28) Arterial Blood Base Excess 5 mmol/L (-3-3) FiO2 100 Glucose (Fingerstick) 233 mg/dL (70-99) 229 mg/dL (70-99) 211 mg/dL (70-99) Test 03/13/19 20:36 03/14/19 00:26 03/14/19 05:36 03/14/19 08:50 Glucose (Fingerstick) 200 mg/dL (70-99) 196 mg/dL (70-99) 239 mg/dL (70-99) O2 Saturation 88 % (92-99) Arterial Blood pH 7.42 (7.35-7.45) Arterial Blood pCO2 at Patient Temp 50 mmHg (35-46) Arterial Blood pO2 at Patient Temp 54 mmHg (75-108) Arterial Blood HCO3 32 mmol/L (21-28) Arterial Blood Base Excess 6 mmol/L (-3-3) FiO2 100 Test 03/14/19 09:50 03/14/19 12:05 03/14/19 18:09 03/14/19 21:22 Sodium Level 151 mmol/L (136-145) Potassium Level 4.8 mmol/L (3.5-5.1) Chloride Level 111 mmol/L (98-107) Carbon Dioxide Level 33 mmol/L (21-32) Anion Gap 7 (6-14) Blood Urea Nitrogen 76 mg/dL (8-26) Creatinine 1.7 mg/dL (0.7-1.3) Estimated GFR (Cockcroft-Gault) 41.9 Glucose Level 216 mg/dL (70-99) Calcium Level 8.6 mg/dL (8.5-10.1) Phosphorus Level 4.2 mg/dL (2.6-4.7) Albumin 1.8 g/dL (3.4-5.0) Glucose (Fingerstick) 184 mg/dL (70-99) 206 mg/dL (70-99) 194 mg/dL (70-99) Test 03/15/19 01:23 03/15/19 06:02 Glucose (Fingerstick) 189 mg/dL (70-99) 187 mg/dL (70-99) Laboratory Tests Test 03/14/19 08:50 03/14/19 09:50 03/14/19 12:05 03/14/19 18:09 O2 Saturation 88 % (92-99) Arterial Blood pH 7.42 (7.35-7.45) Arterial Blood pCO2 at Patient Temp 50 mmHg (35-46) Arterial Blood pO2 at Patient Temp 54 mmHg (75-108) Arterial Blood HCO3 32 mmol/L (21-28) Arterial Blood Base Excess 6 mmol/L (-3-3) FiO2 100 Sodium Level 151 mmol/L (136-145) Potassium Level 4.8 mmol/L (3.5-5.1) Chloride Level 111 mmol/L (98-107) Carbon Dioxide Level 33 mmol/L (21-32) Anion Gap 7 (6-14) Blood Urea Nitrogen 76 mg/dL (8-26) Creatinine 1.7 mg/dL (0.7-1.3) Estimated GFR (Cockcroft-Gault) 41.9 Glucose Level 216 mg/dL (70-99) Calcium Level 8.6 mg/dL (8.5-10.1) Phosphorus Level 4.2 mg/dL (2.6-4.7) Albumin 1.8 g/dL (3.4-5.0) Glucose (Fingerstick) 184 mg/dL (70-99) 206 mg/dL (70-99) Test 03/14/19 21:22 03/15/19 01:23 03/15/19 06:02 Glucose (Fingerstick) 194 mg/dL (70-99) 189 mg/dL (70-99) 187 mg/dL (70-99) Medications Active Scripts Medications Dose Route/Sig Max Daily Dose Days Date Category Proair Hfa Inhaler (Albuterol Sulfate) 8.5 Gm Hfa.aer.ad 1 Puff INH PRN Q6HRS PRN 02/27/19 Reported Lantus Solostar (Insulin Glargine,Hum.rec.anlog) 100 Unit/1 Ml Insuln.pen 20 Unit SQ QHS 02/27/19 Reported Humalog (Insulin Lispro) 100 Unit/1 Ml Cartridge 6 Unit SQ TIDWMEALS 02/27/19 Reported Doxazosin Mesylate 2 Mg Tablet 2 Mg PO DAILY 02/27/19 Reported Omeprazole 40 Mg Capsule.dr 40 Mg PO DAILY 02/27/19 Reported Amlodipine Besylate 10 Mg Tablet 10 Mg PO DAILY 02/27/19 Reported Atorvastatin Calcium 20 Mg Tablet 20 Mg PO DAILY 02/27/19 Reported Atenolol 50 Mg Tablet 50 Mg PO DAILY 02/27/19 Reported Losartan Potassium 100 Mg Tablet 100 Mg PO DAILY 02/27/19 Reported Aspirin 81 Mg Tab.chew 81 Mg PO DAILY 02/27/19 Reported Glyburide 5 Mg Tablet 1 Tab PO BID 11/09/16 Reported Comments CXR REVIEWED b lat infilt effusion atelectasis,ett ok Impression . 1. Acute hypoxemic /hypercapnic respiratory failure./ ARDS 2. sepsis./ ARDS 3. In-house cardiopulmonary arrest. 4. Normal EF / mild Pulmonary HTN 5. Acute on chronic right-sided heart failure. 6. Possible pneumonia. 7. Morbid obesity. 8. Diabetes. 9. ANASARCA 10. Abnormal CXR <Conclusion>ECHO The left ventricular systolic function is normal. The ejection fraction is 60-65%. There is normal LV segmental wall motion. Transmitral Doppler flow pattern is Grade I-abnormal relaxation pattern. Trace tricuspid regurgitation. Estimated PAP 33-38 mmHg. There is no evidence of significant pericardial effusion. VENOUS 02/28 Impression: 1. There is no evidence of deep venous thrombosis from the bilateral common femoral to popliteal veins. 2. There is nonspecific right groin lymph node. Plan . AC MODE ,[id number] FI02, cont vent support, setting reviewed, ANITBX PER ID keep I<O, lasix dose increased per nephro, monitor k, cr bilateral venous Dopplers of lower extremities.NEG DVT and GI prophylaxis. Follow Cardiology.rec Enteral nutrition am abg, cxr elevate hob discussed w rn, rt DNR, poor prognosis on propofol, will check TG family meeting on Saturday MALINDA CR MD Mar 15, 2019 06:42
[2019-03-15 07:11] LABS: CALCIUM 8.8 mg/dL (8.5-10.1); CREATININE 1.6 mg/dL (0.7-1.3); GFR 44.9; MAGNESIUM 2.7 mg/dL (1.8-2.4); PHOSPHORUS 4.8 mg/dL (2.6-4.7); POTASSIUM 4.9 mmol/L (3.5-5.1)
--- NOTE | 2019-03-15 07:36 | RAD ---
AP chest. HISTORY: Respiratory failure AP view was taken of the chest. Endotracheal tube and NG tube are unchanged. The right arm PICC line which extends to the right atrium. There are bilateral pleural effusions. There are bilateral diffuse infiltrates. There has been little change from the recent studies. IMPRESSION: 1. Diffuse infiltrates. 2. Bilateral pleural effusions. 3. PICC line is slightly low well into the right atrium. 3. Endotracheal tube and NG tube unchanged. Electronically signed by: Roel Bonilla MD (03/15/2019 7:33 AM) [facility]
[2019-03-15] MEDS: ASPIRIN CHEWABLE 81 MG TABLET. PO SCH (07:49)
[2019-03-15] MEDS: IPRATRPIUM/ALBUTEROL 0.5/2.5MG 3 ML NEBU. NEB SCH ×4 (08:30→20:08)
[2019-03-15] MEDS: FAMOTIDINE 20 MG/2 ML VIAL IVP SCH ×2 (08:41→21:12)
[2019-03-15] MEDS: CEFEPIME HCL IV Push 2 GM VIAL. IVP SCH ×2 (08:42→21:11)
[2019-03-15] MEDS: NYSTATIN 100,000 UNIT/GM TOPICAL CREAM 15GM TUBE. TP SCH ×2 (08:42→21:12)
[2019-03-15] MEDS: INSULIN GLARGINE 300 UNITS/3 ML INSULN.PEN. SQ SCH ×2 (08:44→21:13)
--- NOTE | 2019-03-15 09:30 | PDOC ---
Infectious Disease Note Subjective Subjective Orally intubated and sedated, FiO2 100% PEEP 14 Tube feedings 20 ml/hr No fevers since yesterday, Tmax 100.3 ROS ROS unobtainable Vital Sign Vital Signs Vital Signs Date Time Temp Pulse Resp B/P (MAP) Pulse Ox O2 Delivery O2 Flow Rate FiO2 03/15/19 09:00 73 22 129/73 (91) 90 Ventilator 03/15/19 07:00 98.6 98.6 03/14/19 20:54 96.0 Physical Exam PHYSICAL EXAM GENERAL: Sedated and intubated. HEENT: PERRL, ETT. OGT NECK: Supple. LUNGS: Decreased in bases HEART: S1, S2. 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 RLE stump with chronic wound. No erythema/ fluctuance/warmth. no cyanosis SKIN: Warm to touch. 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: Sedated on vent RUE-PICC (03/09) clean Labs Lab Laboratory Tests Test 03/14/19 09:50 03/14/19 12:05 03/14/19 18:09 03/14/19 21:22 Sodium Level 151 mmol/L (136-145) Potassium Level 4.8 mmol/L (3.5-5.1) Chloride Level 111 mmol/L (98-107) Carbon Dioxide Level 33 mmol/L (21-32) Anion Gap 7 (6-14) Blood Urea Nitrogen 76 mg/dL (8-26) Creatinine 1.7 mg/dL (0.7-1.3) Estimated GFR (Cockcroft-Gault) 41.9 Glucose Level 216 mg/dL (70-99) Calcium Level 8.6 mg/dL (8.5-10.1) Phosphorus Level 4.2 mg/dL (2.6-4.7) Albumin 1.8 g/dL (3.4-5.0) Glucose (Fingerstick) 184 mg/dL (70-99) 206 mg/dL (70-99) 194 mg/dL (70-99) Test 03/15/19 01:23 03/15/19 06:02 03/15/19 06:15 Glucose (Fingerstick) 189 mg/dL (70-99) 187 mg/dL (70-99) Sodium Level 149 mmol/L (136-145) Potassium Level 4.9 mmol/L (3.5-5.1) Chloride Level 110 mmol/L (98-107) Carbon Dioxide Level 34 mmol/L (21-32) Anion Gap 5 (6-14) Blood Urea Nitrogen 69 mg/dL (8-26) Creatinine 1.6 mg/dL (0.7-1.3) Estimated GFR (Cockcroft-Gault) 44.9 Glucose Level 193 mg/dL (70-99) Calcium Level 8.8 mg/dL (8.5-10.1) Phosphorus Level 4.8 mg/dL (2.6-4.7) Magnesium Level 2.7 mg/dL (1.8-2.4) Triglycerides Level 200 mg/dL (0-150) CXR 1. Diffuse infiltrates. 2. Bilateral pleural effusions. 3. PICC line is slightly low well into the right atrium. 3. Endotracheal tube and NG tube unchanged. Micro cath tip, 03/09 AEROBIC RES 1 Final Comment No growth in 56 - 72 hours. Objective Assessment Fever Flank rash - no Eosinophilia but ? drug - had been on micafungin so less likely yeast, better Tachycardia - s/p Bolus/Digoxin and Metoprolol Increased GI residuals - Has been on/off ? 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 Status post code. Fluid overload - mild increase Acute kidney injury, improving Distant history of group B strep, Acinetobacter, Porphyromonas, plus anaerobes. Plan Plan of Care Cefepime Nystatin Cultures NGTD Supportive care D/w sister Critically ill Prognosis poor Family meeting 03/16 Patient seen and examined. Chart reviewed in detail. 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 Agree with above plan. LYNDSAY PIZARRO MANAGER [employer]ETING Mar 15, 2019 09:30 MARC VALENTINO MD Mar 15, 2019 19:05
[2019-03-15 09:40] LABS: BASE EXCESS ABG 6 mmol/L (-3-3); HCO3 ABG 32 mmol/L (21-28); PCO2 ABG 55 mmHg (35-46); PO2 ABG 57 mmHg (75-108); SAT O2 ABG 88 % (92-99)
[2019-03-15 09:43] LABS: FIO2 ABG 100
--- NOTE | 2019-03-15 11:47 | PDOC ---
Renal-Progress Notes Subjective Notes Notes REMAINS ON THE VENT History of Present Illness Hx of present illness STABLE Vitals Vitals Vital Signs Date Time Temp Pulse Resp B/P (MAP) Pulse Ox O2 Delivery O2 Flow Rate FiO2 03/15/19 11:32 70 103/58 03/15/19 11:00 22 91 Ventilator 03/15/19 07:00 98.6 98.6 03/14/19 20:54 96.0 Weight Weight [ ] Stability Assess. Stability Assess.: other (intubated ) I.O. Intake and Output Intake and Output 03/15/19 07:00 Intake Total 4376.0 ml Output Total 2485 ml Balance 1891.0 ml IV Total 525.0 ml Tube Feeding 2951 ml Other 900 ml Output Urine Total 2485 ml # Bowel Movements 1 Labs Labs Laboratory Tests Test 03/14/19 12:05 03/14/19 18:09 03/14/19 21:22 03/15/19 01:23 Glucose (Fingerstick) 184 mg/dL (70-99) 206 mg/dL (70-99) 194 mg/dL (70-99) 189 mg/dL (70-99) Test 03/15/19 06:02 03/15/19 06:15 03/15/19 09:30 Glucose (Fingerstick) 187 mg/dL (70-99) Sodium Level 149 mmol/L (136-145) Potassium Level 4.9 mmol/L (3.5-5.1) Chloride Level 110 mmol/L (98-107) Carbon Dioxide Level 34 mmol/L (21-32) Anion Gap 5 (6-14) Blood Urea Nitrogen 69 mg/dL (8-26) Creatinine 1.6 mg/dL (0.7-1.3) Estimated GFR (Cockcroft-Gault) 44.9 Glucose Level 193 mg/dL (70-99) Calcium Level 8.8 mg/dL (8.5-10.1) Phosphorus Level 4.8 mg/dL (2.6-4.7) Magnesium Level 2.7 mg/dL (1.8-2.4) Triglycerides Level 200 mg/dL (0-150) O2 Saturation 88 % (92-99) Arterial Blood pH 7.39 (7.35-7.45) Arterial Blood pCO2 at Patient Temp 55 mmHg (35-46) Arterial Blood pO2 at Patient Temp 57 mmHg (75-108) Arterial Blood HCO3 32 mmol/L (21-28) Arterial Blood Base Excess 6 mmol/L (-3-3) FiO2 100 Micro Micro Microbiology 03/05/19 Blood Culture - Final, Complete NO GROWTH AFTER 5 DAYS 03/08/19 - Final, Complete 03/08/19 - Final, Complete 03/08/19 - Final, Complete 03/08/19 Gram Stain Evaluation - Final, Complete 03/08/19 Sputum Culture - Final, Complete 03/08/19 Sputum Result 1 - Final, Complete 03/02/19 Urine Culture - Final, Complete 03/02/19 Urine Culture Result 1 (LUCIO) - Final, Complete 03/09/19 Aerobic Culture - Final, Complete 03/09/19 Aerobic Culture Result 1 (LUCIO) - Final, Complete 03/09/19 Gram Stain - Final, Complete 03/09/19 Gram Stain Result 1 (LUCIO) - Final, Complete 03/09/19 Gram Stain Result 2 (LUCIO) - Final, Complete Review of Systems Constitutional: yes: unresponsive, other (INTUBATED AND SEDATED) Physical Exam General Appearance: other (SEDATED) Skin: warm Respiratory: decreased breath sounds Heart: S1S2 Abdomen: soft, N/T, bowel sounds present Genitourinary: bladder flat Extremities: pulses present Neurology: other (sedated) Assessment Assessment IMP LEONARD-BETTER WITH CR DOWN TO 1.6 ANASARCA-PERSISTS BUT BETTER HYPERNATREMIA-NA OF 149 ACUTE HYPERCARBIC RESP FAILURE-FIO2 100% NOW SCROTAL EDEMA DUE TO ANASARCA RIGHT RENAL MASS PROB PNEUMONIA PROB SEPSIS PROB RIGHT SIDED CHF WITH DIASTOLIC DYSFUNCTION MORBID OBESITY MALNUTRITION PLAN ANTIBIOTICS VENT SUPPORT CONT LASIX EVAL RENAL MASS LATER CONT TF AND INCREASE FREE WATER WILL FOLLOW DEEPTHI MOYA MD Mar 15, 2019 11:47
--- NOTE | 2019-03-15 11:49 | PDOC ---
PROGRESS NOTES Chief Complaint Chief Complaint Acute respiratory failure secondary to congestive heart failure, most probably acute on chronic diastolic. s/p intubation. Myocardial infarction ruled out. Hypernatremia secondary to severe dehydration will need to provide water flushes in order to correct electrolyte disturbance. High residuals on tube feedings no evidence of obstructive pattern on x ray done 03/05/2019 3 weeks of bilateral general scrotal swelling and tenderness. +dyspnea, abd swelling, leg swelling. POA, Dm2 obesity, extreme, morbid hx RLE BKA RLE stump with chronic wound. No erythema/warmth left foot nail onychomycosis needs attention when more clinically stable Acute renal failure ATN Renal CONSULT 3.1-1.8 chronic venous insuff left lower leg nonspecific perinephric stranding with slight asymmetric stranding adjacent to the left renal pelvis. Findings may be due to chronic kidney disease, though ascending urinary tract infection is not excluded. Bilateral lower lobe consolidation concerning for multifocal pneumonia aspiration not excluded. Right renal hypodensity measuring 2.5 cm is incompletely evaluated on noncontrast examination. Follow-up MRI or CT abdomen and pelvis renal protocol with contrast is recommended for further evaluation. Anasarca. bilateral external iliac lymphadenopathy, may be reactive, though follow-up CT abdomen and pelvis in 3 months is recommended to assess for stability/resolution. Nonobstructive left nephrolithiasis. Coronary artery calcifications. The left ventricular systolic function is normal.ejection fraction is 60-65% .normal LV segmental wall motion. Transmitral Doppler flow pattern is Grade I-abnormal relaxation pattern. Trace tricuspid regurgitation. Estimated PAP 33-38 mmHg. History of Present Illness History of Present Illness continue with supportive measures ventilatory support - on 100% oxygen and over 10 of PEEP, poor prognosis, Dr Vinson will address on Saturday if patient does not have improvement, he has been on support for 10 days now follow recommendations from applications consultant. UROLOGY CONSULT reviewed no intervention needed except for elevation and diuresis ID CONSULT continue wtih antibiotic as per ID critically ill, poor prognosis. sister is in room, discussed above Cont ARDS treatment. his daughter is coming from [place] on 03/17 Vitals Vitals Vital Signs Date Time Temp Pulse Resp B/P (MAP) Pulse Ox O2 Delivery O2 Flow Rate FiO2 03/15/19 11:32 70 103/58 03/15/19 11:00 22 91 Ventilator 03/15/19 07:00 98.6 98.6 03/14/19 20:54 96.0 Physical Exam Physical Exam GENERAL: Sedated and intubated. HEENT: PERRL, ETT. OGT NECK: Supple. LUNGS: Decreased in bases HEART: S1, S2. 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 RLE stump with chronic wound. No erythema/ fluctuance/warmth. no cyanosis SKIN: Warm to touch. 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 groin - fading SETTLEMENT PROCESSOR: Sedated on vent RUE-PICC (03/09) clean General: Other (intubated.) Heart: Regular rate Lungs: Other (decrease bs) Abdomen: Normal bowel sounds Extremities: No cyanosis, Other (ANASARCA) Skin: Other (scale, lower leg ) Labs LABS Laboratory Tests Test 03/14/19 12:05 03/14/19 18:09 03/14/19 21:22 03/15/19 01:23 Glucose (Fingerstick) 184 mg/dL (70-99) 206 mg/dL (70-99) 194 mg/dL (70-99) 189 mg/dL (70-99) Test 03/15/19 06:02 03/15/19 06:15 03/15/19 09:30 Glucose (Fingerstick) 187 mg/dL (70-99) Sodium Level 149 mmol/L (136-145) Potassium Level 4.9 mmol/L (3.5-5.1) Chloride Level 110 mmol/L (98-107) Carbon Dioxide Level 34 mmol/L (21-32) Anion Gap 5 (6-14) Blood Urea Nitrogen 69 mg/dL (8-26) Creatinine 1.6 mg/dL (0.7-1.3) Estimated GFR (Cockcroft-Gault) 44.9 Glucose Level 193 mg/dL (70-99) Calcium Level 8.8 mg/dL (8.5-10.1) Phosphorus Level 4.8 mg/dL (2.6-4.7) Magnesium Level 2.7 mg/dL (1.8-2.4) Triglycerides Level 200 mg/dL (0-150) O2 Saturation 88 % (92-99) Arterial Blood pH 7.39 (7.35-7.45) Arterial Blood pCO2 at Patient Temp 55 mmHg (35-46) Arterial Blood pO2 at Patient Temp 57 mmHg (75-108) Arterial Blood HCO3 32 mmol/L (21-28) Arterial Blood Base Excess 6 mmol/L (-3-3) FiO2 100 Assessment and Plan Assessmemt and Plan Problems Medical Problems: (1) Acute renal failure Status: Acute (2) Edema Status: Acute (3) Shortness of breath Status: Acute Comment Review of Relevant I have reviewed the following items pascual (where applicable) has been applied. Labs Laboratory Tests Test 03/13/19 12:58 03/13/19 18:02 03/13/19 20:36 03/14/19 00:26 Glucose (Fingerstick) 229 mg/dL (70-99) 211 mg/dL (70-99) 200 mg/dL (70-99) 196 mg/dL (70-99) Test 03/14/19 05:36 03/14/19 08:50 03/14/19 09:50 03/14/19 12:05 Glucose (Fingerstick) 239 mg/dL (70-99) 184 mg/dL (70-99) O2 Saturation 88 % (92-99) Arterial Blood pH 7.42 (7.35-7.45) Arterial Blood pCO2 at Patient Temp 50 mmHg (35-46) Arterial Blood pO2 at Patient Temp 54 mmHg (75-108) Arterial Blood HCO3 32 mmol/L (21-28) Arterial Blood Base Excess 6 mmol/L (-3-3) FiO2 100 Sodium Level 151 mmol/L (136-145) Potassium Level 4.8 mmol/L (3.5-5.1) Chloride Level 111 mmol/L (98-107) Carbon Dioxide Level 33 mmol/L (21-32) Anion Gap 7 (6-14) Blood Urea Nitrogen 76 mg/dL (8-26) Creatinine 1.7 mg/dL (0.7-1.3) Estimated GFR (Cockcroft-Gault) 41.9 Glucose Level 216 mg/dL (70-99) Calcium Level 8.6 mg/dL (8.5-10.1) Phosphorus Level 4.2 mg/dL (2.6-4.7) Albumin 1.8 g/dL (3.4-5.0) Test 03/14/19 18:09 03/14/19 21:22 03/15/19 01:23 03/15/19 06:02 Glucose (Fingerstick) 206 mg/dL (70-99) 194 mg/dL (70-99) 189 mg/dL (70-99) 187 mg/dL (70-99) Test 03/15/19 06:15 03/15/19 09:30 Sodium Level 149 mmol/L (136-145) Potassium Level 4.9 mmol/L (3.5-5.1) Chloride Level 110 mmol/L (98-107) Carbon Dioxide Level 34 mmol/L (21-32) Anion Gap 5 (6-14) Blood Urea Nitrogen 69 mg/dL (8-26) Creatinine 1.6 mg/dL (0.7-1.3) Estimated GFR (Cockcroft-Gault) 44.9 Glucose Level 193 mg/dL (70-99) Calcium Level 8.8 mg/dL (8.5-10.1) Phosphorus Level 4.8 mg/dL (2.6-4.7) Magnesium Level 2.7 mg/dL (1.8-2.4) Triglycerides Level 200 mg/dL (0-150) O2 Saturation 88 % (92-99) Arterial Blood pH 7.39 (7.35-7.45) Arterial Blood pCO2 at Patient Temp 55 mmHg (35-46) Arterial Blood pO2 at Patient Temp 57 mmHg (75-108) Arterial Blood HCO3 32 mmol/L (21-28) Arterial Blood Base Excess 6 mmol/L (-3-3) FiO2 100 Laboratory Tests Test 03/14/19 12:05 03/14/19 18:09 03/14/19 21:22 03/15/19 01:23 Glucose (Fingerstick) 184 mg/dL (70-99) 206 mg/dL (70-99) 194 mg/dL (70-99) 189 mg/dL (70-99) Test 03/15/19 06:02 03/15/19 06:15 03/15/19 09:30 Glucose (Fingerstick) 187 mg/dL (70-99) Sodium Level 149 mmol/L (136-145) Potassium Level 4.9 mmol/L (3.5-5.1) Chloride Level 110 mmol/L (98-107) Carbon Dioxide Level 34 mmol/L (21-32) Anion Gap 5 (6-14) Blood Urea Nitrogen 69 mg/dL (8-26) Creatinine 1.6 mg/dL (0.7-1.3) Estimated GFR (Cockcroft-Gault) 44.9 Glucose Level 193 mg/dL (70-99) Calcium Level 8.8 mg/dL (8.5-10.1) Phosphorus Level 4.8 mg/dL (2.6-4.7) Magnesium Level 2.7 mg/dL (1.8-2.4) Triglycerides Level 200 mg/dL (0-150) O2 Saturation 88 % (92-99) Arterial Blood pH 7.39 (7.35-7.45) Arterial Blood pCO2 at Patient Temp 55 mmHg (35-46) Arterial Blood pO2 at Patient Temp 57 mmHg (75-108) Arterial Blood HCO3 32 mmol/L (21-28) Arterial Blood Base Excess 6 mmol/L (-3-3) FiO2 100 Microbiology 03/05/19 Blood Culture - Final, Complete NO GROWTH AFTER 5 DAYS 03/08/19 - Final, Complete 03/08/19 - Final, Complete 03/08/19 - Final, Complete 03/08/19 Gram Stain Evaluation - Final, Complete 03/08/19 Sputum Culture - Final, Complete 03/08/19 Sputum Result 1 - Final, Complete 03/02/19 Urine Culture - Final, Complete 03/02/19 Urine Culture Result 1 (LUCIO) - Final, Complete 03/09/19 Aerobic Culture - Final, Complete 03/09/19 Aerobic Culture Result 1 (LUCIO) - Final, Complete 03/09/19 Gram Stain - Final, Complete 03/09/19 Gram Stain Result 1 (LUCIO) - Final, Complete 03/09/19 Gram Stain Result 2 (LUCIO) - Final, Complete Medications Current Medications Ondansetron HCl (Zofran) 4 mg PRN Q8HRS PRN IV NAUSEA/VOMITING; Start 02/27/19 at 16:45; Stop 02/28/19 at 16:44; Status DC Morphine Sulfate (Morphine Sulfate) 2 mg PRN Q2HR PRN IV PAIN; Start 02/27/19 at 16:45; Stop 02/28/19 at 16:44; Status DC Acetaminophen (Tylenol) 650 mg PRN Q4HRS PRN PO FEVER Last administered on 02/27at 21:06; Start 02/27/19 at 16:45; Stop 02/28/19 at 16:44; Status DC Dextrose (Dextrose 50%-Water Syringe) 12.5 gm PRN Q15MIN PRN IV SEE COMMENTS; Start 02/27/19 at 16:45; Stop 03/10/19 at 13:48; Status DC Heparin Sodium (Porcine) (Heparin Sodium) 5,000 unit Q8HRS SQ Last administered on 03/15/19at 05:45; Start 02/27/19 at 17:00 Lorazepam (Ativan) 1 mg PRN Q8HRS PRN IV ANXIETY / AGITATION Last administered on 03/08/19at 03:37; Start 02/28/19 at 02:45 Etomidate (Amidate) 20 mg STK-MED ONCE IV ; Start 02/28/19 at 06:59; Stop at 07:00; Status DC Rocuronium Deary (Zemuron) 50 mg STK-MED ONCE .ROUTE ; Start 02/28/19 at 07:00 ; Stop 02/28/19 at 09:42; Status DC Dopamine HCl/ Dextrose 250 ml @ 12.266 mls/ hr CONT PRN IV SEE I/O RECORD Last administered on 02/28/19at 08:06; Start 02/28/19 at 07:15 Fentanyl Citrate 30 ml @ 0 mls/hr CONT PRN IV SEE PROTOCOL; Start 02/28/19 at 07:15; Stop 02/28/19 at 07:59; Status DC Propofol 100 ml @ 0 mls/hr CONT PRN IV SEE PROTOCOL; Start 02/28/19 at 07:15; Stop 02/28/19 at 07:59; Status DC Fentanyl Citrate (Fentanyl 2ml Vial) 25 mcg PRN Q1HR PRN IV SEE COMMENTS; Start 02/28/19 at 07:15; Stop 02/28/19 at 07:59; Status DC Fentanyl Citrate (Fentanyl 2ml Vial) 50 mcg PRN Q1HR PRN IV SEE COMMENTS; Start 02/28/19 at 07:15; Stop 02/28/19 at 07:59; Status DC Midazolam HCl 100 ml @ 0 mls/hr CONT PRN IV SEE PROTOCOL Last administered on at 02:33; Start 02/28/19 at 07:15 Sodium Chloride 1,000 ml @ 1,000 mls/hr Q1H IV Last administered on 02/28/19at 07:32; Start 02/28/19 at 07:32; Stop 02/28/19 at 10:09; Status DC Fentanyl Citrate (Fentanyl 2ml Vial) 25 mcg PRN Q30MIN PRN IV see comments; Start 02/28/19 at 07:45; Stop 02/28/19 at 09:42; Status DC Lorazepam (Ativan) 1 mg PRN Q30MIN PRN IV SEDATION; Start 02/28/19 at 07:45; Stop 02/28/19 at 09:42; Status DC Fentanyl Citrate 30 ml @ 2.5 mls/hr CONT PRN PRN IV SEE I/O RECORD Last administered on 03/05/19at 03:44; Start 02/28/19 at 07:45; Stop 03/05/19 at 04:40; Status DC Propofol 100 ml @ 0 mls/hr CONT PRN IV SEE I/O RECORD Last administered on 03/15at 11:31; Start 02/28/19 at 07:45 Vecuronium Deary (Norcuron Bolus) 10 mg PRN Q30MIN PRN IV SHIVERING; Start at 07:45; Stop 02/28/19 at 09:42; Status DC Meperidine HCl (Demerol) 12.5 mg PRN Q30MIN PRN IV SHIVERING; Start 02/28/19 at 07:45; Stop 02/28/19 at 09:42; Status DC Multi-Ingred Cream/Lotion/Oil/ Oint (Artificial Tears Eye Ointment) 1 jennifer PRN Q6HRS PRN OU 0.5 INCH FOR DRY EYE; Start 02/28/19 at 07:45; Stop 02/28/19 at 09 :42; Status DC Famotidine (Pepcid Vial) 20 mg BID IVP Last administered on 02/28/19at 11:03; Start 02/28/19 at 09:00; Stop 02/28/19 at 14:25; Status DC Aspirin (Aspirin) 300 mg DAILY MN ; Start 02/28/19 at 09:00; Stop 02/28/19 at 09 :42; Status DC Sodium Chloride (Normal Saline Flush) 3 ml QSHIFT PRN IV AFTER MEDS AND BLOOD DRAWS; Start 02/28/19 at 07:45 Acetaminophen (Tylenol) 650 mg Q6HRS NG ; Start 02/28/19 at 12:00; Stop at 12:00; Status DC Acetaminophen (Tylenol Supp) 650 mg PRN Q6HRS PRN MN MILD PAIN / TEMP; Start at 07:45; Stop 03/01/19 at 07:45; Status DC Acetaminophen (Tylenol) 650 mg PRN Q6HRS PRN NG MILD PAIN / TEMP; Start at 07:45; Stop 03/01/19 at 07:45; Status DC Info (Icu Electrolyte Protocol) 1 ea DAILY PRN MC PER PROTOCOL; Start 03/02/19 at 07:45; Stop 03/02/19 at 07:45; Status DC Furosemide (Lasix) 60 mg 1X ONCE IVP Last administered on 02/28/19at 08:30; Start 02/28/19 at 08:30; Stop 02/28/19 at 08:31; Status DC Ceftriaxone Sodium (Rocephin) 1 gm Q24H IVP Last administered on 02/28/19at 11: 03; Start 02/28/19 at 11:00; Stop 02/28/19 at 11:18; Status DC Calcium Chloride 1000 mg/Dextrose 60 ml @ 120 mls/hr 1X ONCE IV Last administered on 02/28/19at 11:03; Start 02/28/19 at 10:30; Stop 02/28/19 at 10:59 ; Status DC Meropenem 500 mg/ Sodium Chloride 50 ml @ 100 mls/hr Q8HRS IV Last administered on 03/03/19at 06:24; Start 02/28/19 at 14:00; Stop 03/03/19 at 07:04; Status DC Linezolid/Dextrose 300 ml @ 300 mls/hr Q12HR IV Last administered on 03/03/19at 20:00; Start 02/28/19 at 11:30; Stop 03/04/19 at 08:55; Status DC Micafungin Sodium 100 mg/Dextrose 100 ml @ 100 mls/hr Q24H IV Last administered on 03/04/19 15:53; Start 02/28/19 at 12:00; Stop 03/05/19 at 06:47; Status DC Furosemide (Lasix) 40 mg [id number] IVP Last administered on 03/02/19 14:06; Start 02/28/19 at 14:00; Stop 03/02/19 at 17:02; Status DC Famotidine (Pepcid Vial) 20 mg QHS IVP Last administered on 03/01/19 21:24; Start 02/28/19 at 21:00; Stop 03/02/19 at 10:07; Status DC Albuterol/ Ipratropium (Duoneb) 3 ml RTQID NEB Last administered on 03/15/19 08:30; Start 02/28/19 at 16:00 Haloperidol Lactate (Haldol Inj) 5 mg PRN Q6HRS PRN IVP AGITATION 2ND CHOICE Last administered on 03/09/19 14:07; Start 02/28/19 at 15:15 Vecuronium Deary (Norcuron Bolus) 8 mg PRN Q4HRS PRN IV MUSCLE SPASMS Last administered on 03/12/19 23:48; Start 02/28/19 at 15:15 Perflutren Protein Type A Microsphe (Optison) 0.66 mg PRN 1X PRN IV SEE COMMENTS; Start 03/01/19 at 10:00; Stop 03/02/19 at 09:59; Status DC Digoxin (Lanoxin) 125 mcg 1X STAT IV ; Start 03/01/19 at 15:34; Stop 03/01/19 at 16:00; Status DC Sodium Chloride 500 ml @ 500 mls/hr 1X ONCE IV Last administered on 18:46; Start 03/01/19 at 18:45; Stop 03/01/19 at 19:44; Status DC Famotidine (Pepcid Vial) 20 mg Q12HR IVP Last administered on 03/15/19 08:41; Start 03/02/19 at 21:00 Furosemide (Lasix) 40 mg DAILY IVP Last administered on 03/04/19 09:52; Start 03/03/19 at 09:00; Stop 03/04/19 at 12:13; Status DC Acetaminophen (Tylenol Supp) 650 mg PRN Q6HRS PRN MN MILD PAIN / TEMP Last administered on 03/03/19 17:39; Start 03/02/19 at 17:15 Meropenem 500 mg/ Sodium Chloride 50 ml @ 100 mls/hr Q6HRS IV Last administered on 03/05/19 05:33; Start 03/03/19 at 12:00; Stop 03/05/19 at 06:47; Status DC Albumin Human 100 ml @ 100 mls/hr 1X ONCE IV Last administered on 03/03/19 08 :52; Start 03/03/19 at 08:30; Stop 03/03/19 at 09:29; Status DC Atropine Sulfate (ATROPINE 0.5mg SYRINGE) 2 mg STK-MED ONCE .ROUTE ; Start 02/27 at 16:21; Stop 03/03/19 at 16:22; Status DC Dopamine HCl/ Dextrose (DOPamine 400MG/ 250ML PREMIX) 400 mg STK-MED ONCE IV ; Start 02/27/19 at 16:21; Stop 03/03/19 at 16:22; Status DC Furosemide (Lasix) 40 mg 1X ONCE IVP Last administered on 03/03/19 18:46; Start 03/03/19 at 18:45; Stop 03/03/19 at 18:46; Status DC Lorazepam 100 mg/ Sodium Chloride 100 ml @ 0 mls/hr CONT PRN IV SEE PROTOCOL Last administered on 03/03/19at 22:18; Start 03/03/19 at 22:00 Acetaminophen (Tylenol) 650 mg PRN Q6HRS PRN PEG MILD PAIN / TEMP Last administered on 03/10/19at 20:48; Start 03/04/19 at 11:45 Furosemide (Lasix) 40 mg BID92 IVP Last administered on 03/06/19 08:38; Start 03/04/19 at 14:00; Stop 03/06/19 at 13:30; Status DC Fentanyl Citrate 30 ml @ 0 mls/hr CONT PRN IV SEE PROTOCOL Last administered on 03/15/19at 07:28; Start 03/05/19 at 04:45 Cefepime HCl (Maxipime) 2 gm Q8HRS IVP Last administered on 03/10/19 05:43; Start 03/05/19 at 06:45; Stop 03/10/19 at 08:29; Status DC Metronidazole 100 ml @ 100 mls/hr Q8HRS IV Last administered on 03/10/19 05:45 ; Start 03/05/19 at 06:45; Stop 03/10/19 at 08:29; Status DC Linezolid/Dextrose 300 ml @ 300 mls/hr Q12HR IV Last administered on 03/05/19 21:24; Start 03/05/19 at 09:00; Stop 03/06/19 at 06:42; Status DC Metoclopramide HCl (Reglan Vial) 10 mg QIDACHS IV Last administered on 20:43; Start 03/05/19 at 11:30; Stop 03/07/19 at 07:37; Status DC Insulin Glargine (Lantus) 12 units BID SQ Last administered on 03/09/19 09:29; Start 03/05/19 at 09:00; Stop 03/09/19 at 17:11; Status DC Digoxin (Lanoxin) 500 mcg 1X ONCE IV Last administered on 03/06/19 00:48; Start 03/06/19 at 00:45; Stop 03/06/19 at 00:46; Status DC Metoprolol Tartrate (Lopressor Vial) 5 mg 1X ONCE IVP Last administered on 03/06 00:53; Start 03/06/19 at 00:45; Stop 03/06/19 at 00:46; Status DC Sodium Chloride 500 ml @ 500 mls/hr 1X ONCE IV Last administered on 03/06/19 00:49; Start 03/06/19 at 00:45; Stop 03/06/19 at 01:44; Status DC Nystatin (Mycostatin) 1 jennifer BID TP Last administered on 03/15/19at 08:42; Start 03/06/19 at 09:00 Sodium Cl/Sod Bicarb/Potass Cl/ PEG (Golytely) 2,000 ml 1X ONCE PO Last administered on 03/06/19 09:33; Start 03/06/19 at 08:00; Stop 03/06/19 at 08:01; Status DC Furosemide (Lasix) 40 mg DAILY08 IVP Last administered on 03/09/19 09:27; Start 03/07/19 at 08:00; Stop 03/09/19 at 12:45; Status DC Metoprolol Tartrate (Lopressor Vial) 10 mg 1X ONCE IVP Last administered on 16:08; Start 03/06/19 at 15:15; Stop 03/06/19 at 15:16; Status DC Metoprolol Tartrate (Lopressor Vial) 5 mg Q6HRS IVP Last administered on 17:03; Start 03/06/19 at 18:00; Stop 03/07/19 at 18:27; Status DC Aspirin (Children'S Aspirin) 81 mg 1X ONCE PO Last administered on 03/06/19at 18 :18; Start 03/06/19 at 17:00; Stop 03/06/19 at 17:01; Status DC Aspirin (Children'S Aspirin) 81 mg DAILYWBKFT PO Last administered on at 07:49; Start 03/07/19 at 08:00 Labetalol HCl (Normodyne Iv Push) 20 mg PRN Q2HR PRN IVP HYPERTENSION, SEE COMMENTS Last administered on 03/06/19at 21:29; Start 03/06/19 at 17:15 Digoxin (Lanoxin) 250 mcg 1X ONCE IV Last administered on 03/06/19 22:00; Start 03/06/19 at 22:00; Stop 03/06/19 at 22:01; Status DC Diltiazem HCl 125 mg/Dextrose 125 ml @ 5 mls/hr CONT PRN IV SEE I/O RECORD Last administered on 03/12/19at 08:20; Start 03/06/19 at 23:00; Stop 03/12/19 at 11:03; Status DC Metoclopramide HCl (Reglan Vial) 10 mg Q6HRS IV ; Start 03/07/19 at 08:00; Stop 03/08/19 at 07:51; Status DC Metoprolol Tartrate (Lopressor Vial) 5 mg Q6HRS IVP Last administered on at 11:31; Start 03/08/19 at 12:00 Furosemide (Lasix) 40 mg 1X ONCE IVP Last administered on 03/08/19at 21:21; Start 03/08/19 at 21:00; Stop 03/08/19 at 21:01; Status DC Furosemide (Lasix) 20 mg DAILY08 IVP ; Start 03/10/19 at 08:00; Stop 03/10/19 at 08:00; Status DC Furosemide (Lasix) 20 mg DAILY08 IVP Last administered on 03/14/19at 07:41; Start 03/10/19 at 08:00; Stop 03/15/19 at 07:32; Status DC Insulin Glargine (Lantus) 16 units BID SQ Last administered on 03/12/19at 00:09 ; Start 03/09/19 at 21:00; Stop 03/12/19 at 07:18; Status DC Insulin Human Lispro (HumaLOG) 0-9 UNITS Q6HRS SQ Last administered on at 05:45; Start 03/09/19 at 18:00; Stop 03/12/19 at 07:18; Status DC Dextrose (Dextrose 50%-Water Syringe) 12.5 gm PRN Q15MIN PRN IV SEE COMMENTS; Start 03/09/19 at 17:15 Cefepime HCl (Maxipime) 2 gm Q12HR IVP Last administered on 03/15/19at 08:42; Start 03/10/19 at 21:00 Insulin Human Lispro (HumaLOG) 15 units 1X ONCE SQ Last administered on at 00:14; Start 03/11/19 at 00:00; Stop 03/11/19 at 00:01; Status DC Insulin Glargine (Lantus) 20 units BID SQ Last administered on 03/15/19at 08:44 ; Start 03/12/19 at 09:00 Insulin Human Lispro (HumaLOG) 0-9 UNITS Q6HRS SQ Last administered on at 06:04; Start 03/12/19 at 12:00 Diltiazem HCl (Cardizem) 30 mg Q6HRS PO Last administered on 03/15/19 11:32; Start 03/12/19 at 12:00 Furosemide (Lasix) 20 mg 1X ONCE IVP Last administered on 03/13/19at 11:04; Start 03/13/19 at 10:30; Stop 03/13/19 at 10:31; Status DC Furosemide (Lasix) 20 mg 1X ONCE IVP Last administered on 03/14/19at 07:40; Start 03/14/19 at 07:15; Stop 03/14/19 at 14:05; Status DC Furosemide (Lasix) 40 mg Q8HRS IVP Last administered on 03/15/19at 06:03; Start 03/14/19 at 22:00 Active Scripts Active Reported Proair Hfa Inhaler (Albuterol Sulfate) 8.5 Gm Hfa.aer.ad 1 Puff INH PRN Q6HRS PRN Lantus Solostar (Insulin Glargine,Hum.rec.anlog) 100 Unit/1 Ml Insuln.pen 20 Unit SQ QHS Humalog (Insulin Lispro) 100 Unit/1 Ml Cartridge 6 Unit SQ TIDWMEALS Doxazosin Mesylate 2 Mg Tablet 2 Mg PO DAILY Omeprazole 40 Mg Capsule.dr 40 Mg PO DAILY Amlodipine Besylate 10 Mg Tablet 10 Mg PO DAILY Atorvastatin Calcium 20 Mg Tablet 20 Mg PO DAILY Atenolol 50 Mg Tablet 50 Mg PO DAILY Losartan Potassium 100 Mg Tablet 100 Mg PO DAILY Aspirin 81 Mg Tab.chew 81 Mg PO DAILY Glyburide 5 Mg Tablet 1 Tab PO BID Vitals/I & O Vital Sign - Last 24 Hours 03/14/19 03/14/19 03/14/19 03/14/19 12:00 12:00 12:08 12:09 Temp 98.9 98.9 Pulse 73 86 73 Resp 24 B/P (MAP) 118/62 (80) 156/79 118/62 Pulse Ox 93 O2 Delivery Ventilator Mechanical Ventilator 03/14/19 03/14/19 03/14/19 03/14/19 12:28 13:00 14:00 15:00 Pulse 75 70 67 Resp 22 24 22 B/P (MAP) 125/73 (90) 122/64 (83) 119/63 (81) Pulse Ox 93 92 93 94 O2 Delivery Ventilator Ventilator Ventilator Ventilator 03/14/19 03/14/19 03/14/19 03/14/19 15:28 16:00 16:00 16:23 Temp 99.0 99.0 Pulse 67 Resp 22 22 B/P (MAP) 129/70 (89) Pulse Ox 93 93 93 O2 Delivery Ventilator Mechanical Ventilator Ventilator Ventilator 03/14/19 03/14/19 03/14/19 03/14/19 17:00 18:00 18:00 18:11 Pulse 77 77 77 Resp 22 26 B/P (MAP) 135/58 (83) 125/61 (82) 125/61 Pulse Ox 93 93 94 O2 Delivery Ventilator Ventilator Ventilator 03/14/19 03/14/19 03/14/19 03/14/19 18:12 19:00 19:59 20:00 Pulse 77 69 Resp 25 B/P (MAP) 125/77 117/59 (78) Pulse Ox 89 90 O2 Delivery Ventilator Ventilator Mechanical Ventilator 03/14/19 03/14/19 03/14/19 03/14/19 20:00 20:54 21:00 22:00 Temp 98.7 98.7 Pulse 69 82 80 Resp 22 22 25 23 B/P (MAP) 120/60 (80) 137/62 (87) 138/66 (90) Pulse Ox 90 90 89 89 O2 Delivery Ventilator Ventilator Ventilator O2 Flow Rate 96.0 03/14/19 03/14/19 03/14/19 03/14/19 22:19 23:00 23:50 23:59 Pulse 82 Resp 23 B/P (MAP) 149/72 (97) Pulse Ox 89 89 89 O2 Delivery Ventilator Ventilator Ventilator Mechanical Ventilator 03/15/19 03/15/19 03/15/19 03/15/19 00:01 01:00 01:16 01:25 Temp 99.7 99.7 Pulse 82 79 81 Resp 23 23 B/P (MAP) 131/67 (88) 140/68 (92) 140/68 Pulse Ox 90 90 89 O2 Delivery Ventilator Ventilator Ventilator 03/15/19 03/15/19 03/15/19 03/15/19 01:26 01:41 02:00 02:11 Pulse 81 74 Resp 22 22 B/P (MAP) 140/68 146/77 (100) Pulse Ox 89 88 O2 Delivery Ventilator Ventilator Ventilator 03/15/19 03/15/19 03/15/19 03/15/19 03:00 03:05 04:00 04:00 Temp 99.2 99.2 Pulse 74 75 Resp 22 22 B/P (MAP) 131/66 (87) 119/66 (83) Pulse Ox 88 90 90 O2 Delivery Ventilator Ventilator Ventilator Mechanical Ventilator 03/15/19 03/15/19 03/15/19 03/15/19 05:00 05:20 05:44 05:44 Pulse 70 69 75 Resp 22 B/P (MAP) 117/58 (77) 116/63 119/66 Pulse Ox 91 89 O2 Delivery Ventilator Ventilator 03/15/19 03/15/19 03/15/19 03/15/19 06:00 07:00 07:28 07:30 Temp 98.6 98.6 Pulse 65 67 Resp 22 22 B/P (MAP) 114/73 (87) 115/67 (83) Pulse Ox 91 88 88 O2 Delivery Ventilator Ventilator Ventilator Mechanical Ventilator 03/15/19 03/15/19 03/15/19 03/15/19 07:58 08:00 08:35 09:00 Pulse 63 73 Resp 22 B/P (MAP) 124/71 (88) 129/73 (91) Pulse Ox 88 88 91 90 O2 Delivery Ventilator Ventilator Ventilator 03/15/19 03/15/19 03/15/19 03/15/19 10:00 10:17 11:00 11:31 Pulse 72 71 70 Resp 22 B/P (MAP) 122/60 (80) 113/60 (77) 103/58 Pulse Ox 92 92 91 O2 Delivery Ventilator Ventilator Ventilator 03/15/19 11:32 Pulse 70 B/P (MAP) 103/58 Intake and Output 03/14/19 03/14/19 03/15/19 14:59 22:59 06:59 Intake Total 470 ml 1709 ml 2197.0 ml Output Total 980 ml 655 ml 600 ml Balance -510 ml 1054 ml 1597.0 ml PAUL GRIMES MD Mar 15, 2019 11:49
[2019-03-16] VITALS (24 sets, daily range): BP systolic 105–177; BP diastolic 56–87
[2019-03-16] MEDS: dilTIAZem HCL 30 MG TABLET PO SCH ×4 (00:02→18:43)
[2019-03-16] MEDS: INSULIN LISPRO 300 UNITS/3 ML INSULN.PEN. SQ SCH ×4 (00:03→18:43)
[2019-03-16] MEDS: PROPOFOL 100 ML IV PRN ×6 (01:26→21:45)
[2019-03-16] MEDS ORDERED: ALBUTEROL SULFATE 2.5 MG/3 ML NEBU. NEB ONE (04:00)
[2019-03-16] MEDS: MIDAZOLAM 100mg/100ml NS BAG 100 ML IV PRN ×2 (04:21→23:52)
[2019-03-16] MEDS ORDERED: methylPREDNISolone SOD SUCC PF 40 MG/ML VIAL. IV ONE (04:30)
[2019-03-16] MEDS ORDERED: FUROSEMIDE 20 MG/2 ML VIAL. IVP ONE (04:30)
--- NOTE | 2019-03-16 04:43 | NUR ---
Throughout the night, SPO2 would drop to 88-90% after turning but would slowly recover; turning toward the right took longer to recover than the left. However, around 0300, SPO2 began to drop to 83-87% despite not being turned since 0200. Patient was suctioned and repositioned on the back, was not coughing or fighting the ventilator. Breathing treatment was given to bring SPO2 up to 90%. Dr. Ricci notified, received the orders to increase PEEP to 16, give an extra dose of lasix and solu-medrol. Will continue to monitor.
[2019-03-16] MEDS: FUROSEMIDE 40 MG/4 ML VIAL. IVP SCH ×3 (05:32→22:00)
[2019-03-16] MEDS: METOPROLOL TARTRATE 5 MG/5 ML VIAL. IVP SCH ×4 (05:32→18:42)
[2019-03-16] MEDS: HEPARIN for SUB-Q USE 5,000 UNIT/ML VIAL. SQ SCH ×3 (05:33→22:00)
[2019-03-16 05:36] LABS: BASO # 0.1 x10^3/uL (0.0-0.2); BASO % 1 % (0-3); EOS # 0.5 x10^3/uL (0.0-0.7); EOS % 6 % (0-3); HEMATOCRIT 36.6 % (39.0-53.0); HEMOGLOBIN 11.8 g/dL (13.0-17.5); LYMPH # 0.8 x10^3/uL (1.0-4.8); LYMPH % 9 % (24-48); MEAN CORPUSCULAR HEMOGLOBIN 31 pg (25-35); MEAN CORPUSCULAR HGB CONC 32 g/dL (31-37); MEAN CORPUSCULAR VOLUME 95 fL (79-100); MONO # 0.4 x10^3/uL (0.0-1.1); MONO % 5 % (0-9); NEUT # 6.5 x10^3uL (1.8-7.7); NEUT % 78 % (31-73); PLATELET COUNT 590 x10^3/uL (140-400); RED BLOOD COUNT 3.87 x10^6/uL (4.30-5.70); RED CELL DISTRIBUTION WIDTH 15.2 % (11.5-14.5); WHITE BLOOD COUNT 8.3 x10^3/uL (4.0-11.0)
[2019-03-16 06:00] LABS: CALCIUM 9.2 mg/dL (8.5-10.1); CREATININE 1.8 mg/dL (0.7-1.3); GFR 39.2; MAGNESIUM 2.6 mg/dL (1.8-2.4); PHOSPHORUS 5.3 mg/dL (2.6-4.7); POTASSIUM 4.7 mmol/L (3.5-5.1)
[2019-03-16] MEDS: IPRATRPIUM/ALBUTEROL 0.5/2.5MG 3 ML NEBU. NEB SCH ×4 (07:59→19:43)
[2019-03-16] MEDS: ASPIRIN CHEWABLE 81 MG TABLET. PO SCH (08:04)
[2019-03-16] MEDS: CEFEPIME HCL IV Push 2 GM VIAL. IVP SCH ×2 (08:04→20:43)
[2019-03-16] MEDS: FAMOTIDINE 20 MG/2 ML VIAL IVP SCH ×2 (08:04→20:44)
[2019-03-16] MEDS: NYSTATIN 100,000 UNIT/GM TOPICAL CREAM 15GM TUBE. TP SCH ×2 (08:05→20:44)
[2019-03-16] MEDS: INSULIN GLARGINE 300 UNITS/3 ML INSULN.PEN. SQ SCH ×2 (08:06→20:45)
--- NOTE | 2019-03-16 08:09 | RAD ---
Portable chest, 03/16/2019: HISTORY: Shortness of breath Comparison is made to a study from 03/15/2019. The ET tube tip lies well above the armani. An NG tube extends into the stomach. A right PICC extends into the superior vena cava. There are diffuse bilateral pulmonary infiltrates with poor definition of the underlying pulmonary vascularity. There has been no improvement since yesterday study. The findings may reflect pulmonary edema, ARDS or overwhelming pneumonia. There is probable pleural fluid contributing to the basilar opacities. The heart size is unchanged. There is no evidence of pneumothorax. No new abnormality is detected. IMPRESSION: 1. Stable tube positions. 2. Ongoing extensive bilateral pulmonary infiltrates and bilateral pleural effusions. Electronically signed by: Moose Astorga MD (03/16/2019 8:06 AM) [facility]
--- NOTE | 2019-03-16 08:49 | PDOC ---
PROGRESS NOTES Chief Complaint Chief Complaint Acute respiratory failure secondary to congestive heart failure, most probably acute on chronic diastolic. s/p intubation. Myocardial infarction ruled out. Hypernatremia secondary to severe dehydration will need to provide water flushes in order to correct electrolyte disturbance. High residuals on tube feedings no evidence of obstructive pattern on x ray done 03/05/2019 3 weeks of bilateral general scrotal swelling and tenderness. +dyspnea, abd swelling, leg swelling. POA, Dm2 obesity, extreme, morbid hx RLE BKA RLE stump with chronic wound. No erythema/warmth left foot nail onychomycosis needs attention when more clinically stable Acute renal failure ATN Renal CONSULT 3.1-1.8 chronic venous insuff left lower leg nonspecific perinephric stranding with slight asymmetric stranding adjacent to the left renal pelvis. Findings may be due to chronic kidney disease, though ascending urinary tract infection is not excluded. Bilateral lower lobe consolidation concerning for multifocal pneumonia aspiration not excluded. Right renal hypodensity measuring 2.5 cm is incompletely evaluated on noncontrast examination. Follow-up MRI or CT abdomen and pelvis renal protocol with contrast is recommended for further evaluation. Anasarca. bilateral external iliac lymphadenopathy, may be reactive, though follow-up CT abdomen and pelvis in 3 months is recommended to assess for stability/resolution. Nonobstructive left nephrolithiasis. Coronary artery calcifications. The left ventricular systolic function is normal.ejection fraction is 60-65% .normal LV segmental wall motion. Transmitral Doppler flow pattern is Grade I-abnormal relaxation pattern. Trace tricuspid regurgitation. Estimated PAP 33-38 mmHg. History of Present Illness History of Present Illness Continue with supportive measures ventilatory support - on 100% oxygen and over 10 of PEEP, poor prognosis, Dr Vinson will address on Saturday if patient does not have improvement, he has been on support for 10 days now follow recommendations from [employer] workflow consultant. UROLOGY CONSULT reviewed no intervention needed except for elevation and diuresis ID CONSULT continue wtih antibiotic as per ID critically ill, poor prognosis. sister is in room, discussed above Plan: Cont ARDS treatment. his daughter is coming from [place] on 03/17 Vitals Vitals Vital Signs Date Time Temp Pulse Resp B/P (MAP) Pulse Ox O2 Delivery O2 Flow Rate FiO2 03/16/19 08:00 90 Ventilator 03/16/19 07:00 73 22 122/71 (88) 03/16/19 04:00 99.7 99.7 Physical Exam Physical Exam GENERAL: Sedated and intubated. HEENT: PERRL, ETT. OGT NECK: Supple. LUNGS: Decreased in bases HEART: S1, S2. 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 RLE stump with chronic wound. No erythema/ fluctuance/warmth. no cyanosis SKIN: Warm to touch. 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 groin - fading MATERIAL ENGINEER: Sedated on vent RUE-PICC (03/09) clean General: Other (intubated.) Heart: Regular rate Lungs: Other (decrease bs) Abdomen: Normal bowel sounds Extremities: No cyanosis, Other (ANASARCA) Skin: Other (scale, lower leg ) Labs LABS Laboratory Tests Test 03/15/19 09:30 03/15/19 11:42 03/15/19 17:42 03/16/19 00:00 O2 Saturation 88 % (92-99) Arterial Blood pH 7.39 (7.35-7.45) Arterial Blood pCO2 at Patient Temp 55 mmHg (35-46) Arterial Blood pO2 at Patient Temp 57 mmHg (75-108) Arterial Blood HCO3 32 mmol/L (21-28) Arterial Blood Base Excess 6 mmol/L (-3-3) FiO2 100 Glucose (Fingerstick) 152 mg/dL (70-99) 151 mg/dL (70-99) 156 mg/dL (70-99) Test 03/16/19 05:25 03/16/19 05:26 White Blood Count 8.3 x10^3/uL (4.0-11.0) Red Blood Count 3.87 x10^6/uL (4.30-5.70) Hemoglobin 11.8 g/dL (13.0-17.5) Hematocrit 36.6 % (39.0-53.0) Mean Corpuscular Volume 95 fL (79-100) Mean Corpuscular Hemoglobin 31 pg (25-35) Mean Corpuscular Hemoglobin Concent 32 g/dL (31-37) Red Cell Distribution Width 15.2 % (11.5-14.5) Platelet Count 590 x10^3/uL (140-400) Neutrophils (%) (Auto) 78 % (31-73) Lymphocytes (%) (Auto) 9 % (24-48) Monocytes (%) (Auto) 5 % (0-9) Eosinophils (%) (Auto) 6 % (0-3) Basophils (%) (Auto) 1 % (0-3) Neutrophils # (Auto) 6.5 x10^3uL (1.8-7.7) Lymphocytes # (Auto) 0.8 x10^3/uL (1.0-4.8) Monocytes # (Auto) 0.4 x10^3/uL (0.0-1.1) Eosinophils # (Auto) 0.5 x10^3/uL (0.0-0.7) Basophils # (Auto) 0.1 x10^3/uL (0.0-0.2) Sodium Level 151 mmol/L (136-145) Potassium Level 4.7 mmol/L (3.5-5.1) Chloride Level 110 mmol/L (98-107) Carbon Dioxide Level 33 mmol/L (21-32) Anion Gap 8 (6-14) Blood Urea Nitrogen 73 mg/dL (8-26) Creatinine 1.8 mg/dL (0.7-1.3) Estimated GFR (Cockcroft-Gault) 39.2 Glucose Level 191 mg/dL (70-99) Calcium Level 9.2 mg/dL (8.5-10.1) Phosphorus Level 5.3 mg/dL (2.6-4.7) Magnesium Level 2.6 mg/dL (1.8-2.4) Glucose (Fingerstick) 186 mg/dL (70-99) Assessment and Plan Assessmemt and Plan Problems Medical Problems: (1) Acute renal failure Status: Acute (2) Edema Status: Acute (3) Shortness of breath Status: Acute Comment Review of Relevant I have reviewed the following items pascual (where applicable) has been applied. Labs Laboratory Tests Test 03/14/19 08:50 03/14/19 09:50 03/14/19 12:05 03/14/19 18:09 O2 Saturation 88 % (92-99) Arterial Blood pH 7.42 (7.35-7.45) Arterial Blood pCO2 at Patient Temp 50 mmHg (35-46) Arterial Blood pO2 at Patient Temp 54 mmHg (75-108) Arterial Blood HCO3 32 mmol/L (21-28) Arterial Blood Base Excess 6 mmol/L (-3-3) FiO2 100 Sodium Level 151 mmol/L (136-145) Potassium Level 4.8 mmol/L (3.5-5.1) Chloride Level 111 mmol/L (98-107) Carbon Dioxide Level 33 mmol/L (21-32) Anion Gap 7 (6-14) Blood Urea Nitrogen 76 mg/dL (8-26) Creatinine 1.7 mg/dL (0.7-1.3) Estimated GFR (Cockcroft-Gault) 41.9 Glucose Level 216 mg/dL (70-99) Calcium Level 8.6 mg/dL (8.5-10.1) Phosphorus Level 4.2 mg/dL (2.6-4.7) Albumin 1.8 g/dL (3.4-5.0) Glucose (Fingerstick) 184 mg/dL (70-99) 206 mg/dL (70-99) Test 03/14/19 21:22 03/15/19 01:23 03/15/19 06:02 03/15/19 06:15 Glucose (Fingerstick) 194 mg/dL (70-99) 189 mg/dL (70-99) 187 mg/dL (70-99) Sodium Level 149 mmol/L (136-145) Potassium Level 4.9 mmol/L (3.5-5.1) Chloride Level 110 mmol/L (98-107) Carbon Dioxide Level 34 mmol/L (21-32) Anion Gap 5 (6-14) Blood Urea Nitrogen 69 mg/dL (8-26) Creatinine 1.6 mg/dL (0.7-1.3) Estimated GFR (Cockcroft-Gault) 44.9 Glucose Level 193 mg/dL (70-99) Calcium Level 8.8 mg/dL (8.5-10.1) Phosphorus Level 4.8 mg/dL (2.6-4.7) Magnesium Level 2.7 mg/dL (1.8-2.4) Triglycerides Level 200 mg/dL (0-150) Test 03/15/19 09:30 03/15/19 11:42 03/15/19 17:42 03/16/19 00:00 O2 Saturation 88 % (92-99) Arterial Blood pH 7.39 (7.35-7.45) Arterial Blood pCO2 at Patient Temp 55 mmHg (35-46) Arterial Blood pO2 at Patient Temp 57 mmHg (75-108) Arterial Blood HCO3 32 mmol/L (21-28) Arterial Blood Base Excess 6 mmol/L (-3-3) FiO2 100 Glucose (Fingerstick) 152 mg/dL (70-99) 151 mg/dL (70-99) 156 mg/dL (70-99) Test 03/16/19 05:25 03/16/19 05:26 White Blood Count 8.3 x10^3/uL (4.0-11.0) Red Blood Count 3.87 x10^6/uL (4.30-5.70) Hemoglobin 11.8 g/dL (13.0-17.5) Hematocrit 36.6 % (39.0-53.0) Mean Corpuscular Volume 95 fL (79-100) Mean Corpuscular Hemoglobin 31 pg (25-35) Mean Corpuscular Hemoglobin Concent 32 g/dL (31-37) Red Cell Distribution Width 15.2 % (11.5-14.5) Platelet Count 590 x10^3/uL (140-400) Neutrophils (%) (Auto) 78 % (31-73) Lymphocytes (%) (Auto) 9 % (24-48) Monocytes (%) (Auto) 5 % (0-9) Eosinophils (%) (Auto) 6 % (0-3) Basophils (%) (Auto) 1 % (0-3) Neutrophils # (Auto) 6.5 x10^3uL (1.8-7.7) Lymphocytes # (Auto) 0.8 x10^3/uL (1.0-4.8) Monocytes # (Auto) 0.4 x10^3/uL (0.0-1.1) Eosinophils # (Auto) 0.5 x10^3/uL (0.0-0.7) Basophils # (Auto) 0.1 x10^3/uL (0.0-0.2) Sodium Level 151 mmol/L (136-145) Potassium Level 4.7 mmol/L (3.5-5.1) Chloride Level 110 mmol/L (98-107) Carbon Dioxide Level 33 mmol/L (21-32) Anion Gap 8 (6-14) Blood Urea Nitrogen 73 mg/dL (8-26) Creatinine 1.8 mg/dL (0.7-1.3) Estimated GFR (Cockcroft-Gault) 39.2 Glucose Level 191 mg/dL (70-99) Calcium Level 9.2 mg/dL (8.5-10.1) Phosphorus Level 5.3 mg/dL (2.6-4.7) Magnesium Level 2.6 mg/dL (1.8-2.4) Glucose (Fingerstick) 186 mg/dL (70-99) Laboratory Tests Test 03/15/19 09:30 03/15/19 11:42 03/15/19 17:42 03/16/19 00:00 O2 Saturation 88 % (92-99) Arterial Blood pH 7.39 (7.35-7.45) Arterial Blood pCO2 at Patient Temp 55 mmHg (35-46) Arterial Blood pO2 at Patient Temp 57 mmHg (75-108) Arterial Blood HCO3 32 mmol/L (21-28) Arterial Blood Base Excess 6 mmol/L (-3-3) FiO2 100 Glucose (Fingerstick) 152 mg/dL (70-99) 151 mg/dL (70-99) 156 mg/dL (70-99) Test 03/16/19 05:25 03/16/19 05:26 White Blood Count 8.3 x10^3/uL (4.0-11.0) Red Blood Count 3.87 x10^6/uL (4.30-5.70) Hemoglobin 11.8 g/dL (13.0-17.5) Hematocrit 36.6 % (39.0-53.0) Mean Corpuscular Volume 95 fL (79-100) Mean Corpuscular Hemoglobin 31 pg (25-35) Mean Corpuscular Hemoglobin Concent 32 g/dL (31-37) Red Cell Distribution Width 15.2 % (11.5-14.5) Platelet Count 590 x10^3/uL (140-400) Neutrophils (%) (Auto) 78 % (31-73) Lymphocytes (%) (Auto) 9 % (24-48) Monocytes (%) (Auto) 5 % (0-9) Eosinophils (%) (Auto) 6 % (0-3) Basophils (%) (Auto) 1 % (0-3) Neutrophils # (Auto) 6.5 x10^3uL (1.8-7.7) Lymphocytes # (Auto) 0.8 x10^3/uL (1.0-4.8) Monocytes # (Auto) 0.4 x10^3/uL (0.0-1.1) Eosinophils # (Auto) 0.5 x10^3/uL (0.0-0.7) Basophils # (Auto) 0.1 x10^3/uL (0.0-0.2) Sodium Level 151 mmol/L (136-145) Potassium Level 4.7 mmol/L (3.5-5.1) Chloride Level 110 mmol/L (98-107) Carbon Dioxide Level 33 mmol/L (21-32) Anion Gap 8 (6-14) Blood Urea Nitrogen 73 mg/dL (8-26) Creatinine 1.8 mg/dL (0.7-1.3) Estimated GFR (Cockcroft-Gault) 39.2 Glucose Level 191 mg/dL (70-99) Calcium Level 9.2 mg/dL (8.5-10.1) Phosphorus Level 5.3 mg/dL (2.6-4.7) Magnesium Level 2.6 mg/dL (1.8-2.4) Glucose (Fingerstick) 186 mg/dL (70-99) Microbiology 03/05/19 Blood Culture - Final, Complete NO GROWTH AFTER 5 DAYS 03/08/19 - Final, Complete 03/08/19 - Final, Complete 03/08/19 - Final, Complete 03/08/19 Gram Stain Evaluation - Final, Complete 03/08/19 Sputum Culture - Final, Complete 03/08/19 Sputum Result 1 - Final, Complete 03/02/19 Urine Culture - Final, Complete 03/02/19 Urine Culture Result 1 (LUCIO) - Final, Complete 03/09/19 Aerobic Culture - Final, Complete 03/09/19 Aerobic Culture Result 1 (LUCIO) - Final, Complete 03/09/19 Gram Stain - Final, Complete 03/09/19 Gram Stain Result 1 (LUCIO) - Final, Complete 03/09/19 Gram Stain Result 2 (LUCIO) - Final, Complete Medications Current Medications Ondansetron HCl (Zofran) 4 mg PRN Q8HRS PRN IV NAUSEA/VOMITING; Start 02/27/19 at 16:45; Stop 02/28/19 at 16:44; Status DC Morphine Sulfate (Morphine Sulfate) 2 mg PRN Q2HR PRN IV PAIN; Start 02/27/19 at 16:45; Stop 02/28/19 at 16:44; Status DC Acetaminophen (Tylenol) 650 mg PRN Q4HRS PRN PO FEVER Last administered on 02/27at 21:06; Start 02/27/19 at 16:45; Stop 02/28/19 at 16:44; Status DC Dextrose (Dextrose 50%-Water Syringe) 12.5 gm PRN Q15MIN PRN IV SEE COMMENTS; Start 02/27/19 at 16:45; Stop 03/10/19 at 13:48; Status DC Heparin Sodium (Porcine) (Heparin Sodium) 5,000 unit Q8HRS SQ Last administered on 03/16/19at 05:33; Start 02/27/19 at 17:00 Lorazepam (Ativan) 1 mg PRN Q8HRS PRN IV ANXIETY / AGITATION Last administered on 03/08/19at 03:37; Start 02/28/19 at 02:45 Etomidate (Amidate) 20 mg STK-MED ONCE IV ; Start 02/28/19 at 06:59; Stop at 07:00; Status DC Rocuronium [place] (Zemuron) 50 mg STK-MED ONCE .ROUTE ; Start 02/28/19 at 07:00 ; Stop 02/28/19 at 09:42; Status DC Dopamine HCl/ Dextrose 250 ml @ 12.266 mls/ hr CONT PRN IV SEE I/O RECORD Last administered on 02/28/19at 08:06; Start 02/28/19 at 07:15 Fentanyl Citrate 30 ml @ 0 mls/hr CONT PRN IV SEE PROTOCOL; Start 02/28/19 at 07:15; Stop 02/28/19 at 07:59; Status DC Propofol 100 ml @ 0 mls/hr CONT PRN IV SEE PROTOCOL; Start 02/28/19 at 07:15; Stop 02/28/19 at 07:59; Status DC Fentanyl Citrate (Fentanyl 2ml Vial) 25 mcg PRN Q1HR PRN IV SEE COMMENTS; Start 02/28/19 at 07:15; Stop 02/28/19 at 07:59; Status DC Fentanyl Citrate (Fentanyl 2ml Vial) 50 mcg PRN Q1HR PRN IV SEE COMMENTS; Start 02/28/19 at 07:15; Stop 02/28/19 at 07:59; Status DC Midazolam HCl 100 ml @ 0 mls/hr CONT PRN IV SEE PROTOCOL Last administered on at 04:21; Start 02/28/19 at 07:15 Sodium Chloride 1,000 ml @ 1,000 mls/hr Q1H IV Last administered on 02/28/19at 07:32; Start 02/28/19 at 07:32; Stop 02/28/19 at 10:09; Status DC Fentanyl Citrate (Fentanyl 2ml Vial) 25 mcg PRN Q30MIN PRN IV see comments; Start 02/28/19 at 07:45; Stop 02/28/19 at 09:42; Status DC Lorazepam (Ativan) 1 mg PRN Q30MIN PRN IV SEDATION; Start 02/28/19 at 07:45; Stop 02/28/19 at 09:42; Status DC Fentanyl Citrate 30 ml @ 2.5 mls/hr CONT PRN PRN IV SEE I/O RECORD Last administered on 03/05/19at 03:44; Start 02/28/19 at 07:45; Stop 03/05/19 at 04:40; Status DC Propofol 100 ml @ 0 mls/hr CONT PRN IV SEE I/O RECORD Last administered on 03/16at 04:27; Start 02/28/19 at 07:45 Vecuronium [place] (Norcuron Bolus) 10 mg PRN Q30MIN PRN IV SHIVERING; Start at 07:45; Stop 02/28/19 at 09:42; Status DC Meperidine HCl (Demerol) 12.5 mg PRN Q30MIN PRN IV SHIVERING; Start 02/28/19 at 07:45; Stop 02/28/19 at 09:42; Status DC Multi-Ingred Cream/Lotion/Oil/ Oint (Artificial Tears Eye Ointment) 1 jennifer PRN Q6HRS PRN OU 0.5 INCH FOR DRY EYE; Start 02/28/19 at 07:45; Stop 02/28/19 at 09 :42; Status DC Famotidine (Pepcid Vial) 20 mg BID IVP Last administered on 02/28/19at 11:03; Start 02/28/19 at 09:00; Stop 02/28/19 at 14:25; Status DC Aspirin (Aspirin) 300 mg DAILY MS ; Start 02/28/19 at 09:00; Stop 02/28/19 at 09 :42; Status DC Sodium Chloride (Normal Saline Flush) 3 ml QSHIFT PRN IV AFTER MEDS AND BLOOD DRAWS; Start 02/28/19 at 07:45 Acetaminophen (Tylenol) 650 mg Q6HRS NG ; Start 02/28/19 at 12:00; Stop at 12:00; Status DC Acetaminophen (Tylenol Supp) 650 mg PRN Q6HRS PRN MS MILD PAIN / TEMP; Start at 07:45; Stop 03/01/19 at 07:45; Status DC Acetaminophen (Tylenol) 650 mg PRN Q6HRS PRN NG MILD PAIN / TEMP; Start at 07:45; Stop 03/01/19 at 07:45; Status DC Info (Icu Electrolyte Protocol) 1 ea DAILY PRN MC PER PROTOCOL; Start 03/02/19 at 07:45; Stop 03/02/19 at 07:45; Status DC Furosemide (Lasix) 60 mg 1X ONCE IVP Last administered on 02/28/19at 08:30; Start 02/28/19 at 08:30; Stop 02/28/19 at 08:31; Status DC Ceftriaxone Sodium (Rocephin) 1 gm Q24H IVP Last administered on 02/28/19at 11: 03; Start 02/28/19 at 11:00; Stop 02/28/19 at 11:18; Status DC Calcium Chloride 1000 mg/Dextrose 60 ml @ 120 mls/hr 1X ONCE IV Last administered on 02/28/19at 11:03; Start 02/28/19 at 10:30; Stop 02/28/19 at 10:59 ; Status DC Meropenem 500 mg/ Sodium Chloride 50 ml @ 100 mls/hr Q8HRS IV Last administered on 03/03/19at 06:24; Start 02/28/19 at 14:00; Stop 03/03/19 at 07:04; Status DC Linezolid/Dextrose 300 ml @ 300 mls/hr Q12HR IV Last administered on 03/03/19at 20:00; Start 02/28/19 at 11:30; Stop 03/04/19 at 08:55; Status DC Micafungin Sodium 100 mg/Dextrose 100 ml @ 100 mls/hr Q24H IV Last administered on 03/04/19at 15:53; Start 02/28/19 at 12:00; Stop 03/05/19 at 06:47; Status DC Furosemide (Lasix) 40 mg [id number] IVP Last administered on 03/02/19 14:06; Start 02/28/19 at 14:00; Stop 03/02/19 at 17:02; Status DC Famotidine (Pepcid Vial) 20 mg QHS IVP Last administered on 03/01/19at 21:24; Start 02/28/19 at 21:00; Stop 03/02/19 at 10:07; Status DC Albuterol/ Ipratropium (Duoneb) 3 ml RTQID NEB Last administered on 03/16/19at 07:59; Start 02/28/19 at 16:00 Haloperidol Lactate (Haldol Inj) 5 mg PRN Q6HRS PRN IVP AGITATION 2ND CHOICE Last administered on 03/09/19at 14:07; Start 02/28/19 at 15:15 Vecuronium [place] (Norcuron Bolus) 8 mg PRN Q4HRS PRN IV MUSCLE SPASMS Last administered on 03/12/19at 23:48; Start 02/28/19 at 15:15 Perflutren Protein Type A Microsphe (Optison) 0.66 mg PRN 1X PRN IV SEE COMMENTS; Start 03/01/19 at 10:00; Stop 03/02/19 at 09:59; Status DC Digoxin (Lanoxin) 125 mcg 1X STAT IV ; Start 03/01/19 at 15:34; Stop 03/01/19 at 16:00; Status DC Sodium Chloride 500 ml @ 500 mls/hr 1X ONCE IV Last administered on at 18:46; Start 03/01/19 at 18:45; Stop 03/01/19 at 19:44; Status DC Famotidine (Pepcid Vial) 20 mg Q12HR IVP Last administered on 03/16/19 08:04; Start 03/02/19 at 21:00 Furosemide (Lasix) 40 mg DAILY IVP Last administered on 03/04/19 09:52; Start 03/03/19 at 09:00; Stop 03/04/19 at 12:13; Status DC Acetaminophen (Tylenol Supp) 650 mg PRN Q6HRS PRN MS MILD PAIN / TEMP Last administered on 03/03/19 17:39; Start 03/02/19 at 17:15 Meropenem 500 mg/ Sodium Chloride 50 ml @ 100 mls/hr Q6HRS IV Last administered on 03/05/19 05:33; Start 03/03/19 at 12:00; Stop 03/05/19 at 06:47; Status DC Albumin Human 100 ml @ 100 mls/hr 1X ONCE IV Last administered on 03/03/19 08 :52; Start 03/03/19 at 08:30; Stop 03/03/19 at 09:29; Status DC Atropine Sulfate (ATROPINE 0.5mg SYRINGE) 2 mg STK-MED ONCE .ROUTE ; Start 02/27 at 16:21; Stop 03/03/19 at 16:22; Status DC Dopamine HCl/ Dextrose (DOPamine 400MG/ 250ML PREMIX) 400 mg STK-MED ONCE IV ; Start 02/27/19 at 16:21; Stop 03/03/19 at 16:22; Status DC Furosemide (Lasix) 40 mg 1X ONCE IVP Last administered on 03/03/19 18:46; Start 03/03/19 at 18:45; Stop 03/03/19 at 18:46; Status DC Lorazepam 100 mg/ Sodium Chloride 100 ml @ 0 mls/hr CONT PRN IV SEE PROTOCOL Last administered on 03/03/19 22:18; Start 03/03/19 at 22:00 Acetaminophen (Tylenol) 650 mg PRN Q6HRS PRN PEG MILD PAIN / TEMP Last administered on 03/10/19 20:48; Start 03/04/19 at 11:45 Furosemide (Lasix) 40 mg BID92 IVP Last administered on 03/06/19 08:38; Start 03/04/19 at 14:00; Stop 03/06/19 at 13:30; Status DC Fentanyl Citrate 30 ml @ 0 mls/hr CONT PRN IV SEE PROTOCOL Last administered on 03/16/19 05:12; Start 03/05/19 at 04:45 Cefepime HCl (Maxipime) 2 gm Q8HRS IVP Last administered on 03/10/19 05:43; Start 03/05/19 at 06:45; Stop 03/10/19 at 08:29; Status DC Metronidazole 100 ml @ 100 mls/hr Q8HRS IV Last administered on 03/10/19at 05:45 ; Start 03/05/19 at 06:45; Stop 03/10/19 at 08:29; Status DC Linezolid/Dextrose 300 ml @ 300 mls/hr Q12HR IV Last administered on 03/05/19 21:24; Start 03/05/19 at 09:00; Stop 03/06/19 at 06:42; Status DC Metoclopramide HCl (Reglan Vial) 10 mg QIDACHS IV Last administered on 20:43; Start 03/05/19 at 11:30; Stop 03/07/19 at 07:37; Status DC Insulin Glargine (Lantus) 12 units BID SQ Last administered on 03/09/19 09:29; Start 03/05/19 at 09:00; Stop 03/09/19 at 17:11; Status DC Digoxin (Lanoxin) 500 mcg 1X ONCE IV Last administered on 03/06/19at 00:48; Start 03/06/19 at 00:45; Stop 03/06/19 at 00:46; Status DC Metoprolol Tartrate (Lopressor Vial) 5 mg 1X ONCE IVP Last administered on 03/06 00:53; Start 03/06/19 at 00:45; Stop 03/06/19 at 00:46; Status DC Sodium Chloride 500 ml @ 500 mls/hr 1X ONCE IV Last administered on 03/06/19at 00:49; Start 03/06/19 at 00:45; Stop 03/06/19 at 01:44; Status DC Nystatin (Mycostatin) 1 jennifer BID TP Last administered on 03/16/19at 08:05; Start 03/06/19 at 09:00 Sodium Cl/Sod Bicarb/Potass Cl/ PEG (Golytely) 2,000 ml 1X ONCE PO Last administered on 03/06/19 09:33; Start 03/06/19 at 08:00; Stop 03/06/19 at 08:01; Status DC Furosemide (Lasix) 40 mg DAILY08 IVP Last administered on 03/09/19 09:27; Start 03/07/19 at 08:00; Stop 03/09/19 at 12:45; Status DC Metoprolol Tartrate (Lopressor Vial) 10 mg 1X ONCE IVP Last administered on 16:08; Start 03/06/19 at 15:15; Stop 03/06/19 at 15:16; Status DC Metoprolol Tartrate (Lopressor Vial) 5 mg Q6HRS IVP Last administered on 17:03; Start 03/06/19 at 18:00; Stop 03/07/19 at 18:27; Status DC Aspirin (Children'S Aspirin) 81 mg 1X ONCE PO Last administered on 03/06/19 18 :18; Start 03/06/19 at 17:00; Stop 03/06/19 at 17:01; Status DC Aspirin (Children'S Aspirin) 81 mg [id number] PO Last administered on at 08:04; Start 03/07/19 at 08:00 Labetalol HCl (Normodyne Iv Push) 20 mg PRN Q2HR PRN IVP HYPERTENSION, SEE COMMENTS Last administered on 03/06/19 21:29; Start 03/06/19 at 17:15 Digoxin (Lanoxin) 250 mcg 1X ONCE IV Last administered on 03/06/19 22:00; Start 03/06/19 at 22:00; Stop 03/06/19 at 22:01; Status DC Diltiazem HCl 125 mg/Dextrose 125 ml @ 5 mls/hr CONT PRN IV SEE I/O RECORD Last administered on 03/12/19at 08:20; Start 03/06/19 at 23:00; Stop 03/12/19 at 11:03; Status DC Metoclopramide HCl (Reglan Vial) 10 mg Q6HRS IV ; Start 03/07/19 at 08:00; Stop 03/08/19 at 07:51; Status DC Metoprolol Tartrate (Lopressor Vial) 5 mg Q6HRS IVP Last administered on 05:32; Start 03/08/19 at 12:00 Furosemide (Lasix) 40 mg 1X ONCE IVP Last administered on 03/08/19at 21:21; Start 03/08/19 at 21:00; Stop 03/08/19 at 21:01; Status DC Furosemide (Lasix) 20 mg DAILY08 IVP ; Start 03/10/19 at 08:00; Stop 03/10/19 at 08:00; Status DC Furosemide (Lasix) 20 mg DAILY08 IVP Last administered on 03/14/19at 07:41; Start 03/10/19 at 08:00; Stop 03/15/19 at 07:32; Status DC Insulin Glargine (Lantus) 16 units BID SQ Last administered on 03/12/19at 00:09 ; Start 03/09/19 at 21:00; Stop 03/12/19 at 07:18; Status DC Insulin Human Lispro (HumaLOG) 0-9 UNITS Q6HRS SQ Last administered on at 05:45; Start 03/09/19 at 18:00; Stop 03/12/19 at 07:18; Status DC Dextrose (Dextrose 50%-Water Syringe) 12.5 gm PRN Q15MIN PRN IV SEE COMMENTS; Start 03/09/19 at 17:15 Cefepime HCl (Maxipime) 2 gm Q12HR IVP Last administered on 03/16/19at 08:04; Start 03/10/19 at 21:00 Insulin Human Lispro (HumaLOG) 15 units 1X ONCE SQ Last administered on at 00:14; Start 03/11/19 at 00:00; Stop 03/11/19 at 00:01; Status DC Insulin Glargine (Lantus) 20 units BID SQ Last administered on 03/16/19 08:06 ; Start 03/12/19 at 09:00 Insulin Human Lispro (HumaLOG) 0-9 UNITS Q6HRS SQ Last administered on 05:33; Start 03/12/19 at 12:00 Diltiazem HCl (Cardizem) 30 mg Q6HRS PO Last administered on 4/15/19at 05:32; Start 03/12/19 at 12:00 Furosemide (Lasix) 20 mg 1X ONCE IVP Last administered on 03/13/19at 11:04; Start 03/13/19 at 10:30; Stop 03/13/19 at 10:31; Status DC Furosemide (Lasix) 20 mg 1X ONCE IVP Last administered on 03/14/19at 07:40; Start 03/14/19 at 07:15; Stop 03/14/19 at 14:05; Status DC Furosemide (Lasix) 40 mg Q8HRS IVP Last administered on 03/16/19at 05:32; Start 03/14/19 at 22:00 Albuterol Sulfate (Ventolin Neb Soln) 2.5 mg 1X ONCE NEB Last administered on 03/16/19at 04:00; Start 03/16/19 at 04:00; Stop 03/16/19 at 04:01; Status DC Methylprednisolone Sodium Succinate (SOLU-Medrol 40MG VIAL) 80 mg 1X ONCE IV Last administered on 03/16/19at 04:17; Start 03/16/19 at 04:30; Stop 03/16/19 at 04:31; Status DC Furosemide (Lasix) 20 mg 1X ONCE IVP Last administered on 03/16/19at 04:17; Start 03/16/19 at 04:30; Stop 03/16/19 at 04:31; Status DC Active Scripts Active Reported Proair Hfa Inhaler (Albuterol Sulfate) 8.5 Gm Hfa.aer.ad 1 Puff INH PRN Q6HRS PRN Lantus Solostar (Insulin Glargine,Hum.rec.anlog) 100 Unit/1 Ml Insuln.pen 20 Unit SQ QHS Humalog (Insulin Lispro) 100 Unit/1 Ml Cartridge 6 Unit SQ TIDWMEALS Doxazosin Mesylate 2 Mg Tablet 2 Mg PO DAILY Omeprazole 40 Mg Capsule.dr 40 Mg PO DAILY Amlodipine Besylate 10 Mg Tablet 10 Mg PO DAILY Atorvastatin Calcium 20 Mg Tablet 20 Mg PO DAILY Atenolol 50 Mg Tablet 50 Mg PO DAILY Losartan Potassium 100 Mg Tablet 100 Mg PO DAILY Aspirin 81 Mg Tab.chew 81 Mg PO DAILY Glyburide 5 Mg Tablet 1 Tab PO BID Vitals/I & O Vital Sign - Last 24 Hours 03/15/19 03/15/19 03/15/19/14/19 09:00 10:00 10:17 11:00 Pulse 73 72 71 Resp 22 22 22 B/P (MAP) 129/73 (91) 122/60 (80) 113/60 (77) Pulse Ox 90 92 92 91 O2 Delivery Ventilator Ventilator Ventilator Ventilator 03/15/19 03/15/19 03/15/19 03/15/19 11:31 11:32 12:00 12:00 Temp 98.6 98.6 Pulse 70 70 67 Resp 22 B/P (MAP) 103/58 103/58 105/57 (73) Pulse Ox 90 O2 Delivery Ventilator Mechanical Ventilator 03/15/19 03/15/19 03/15/19 03/15/19 12:41 13:00 13:07 13:11 Pulse 67 Resp 22 B/P (MAP) 116/61 (79) Pulse Ox 91 89 89 91 O2 Delivery Ventilator Ventilator Ventilator Ventilator 03/15/19 03/15/19 03/15/19 03/15/19 14:00 15:00 16:00 16:00 Temp 98.8 98.8 Pulse 73 70 68 Resp 22 22 B/P (MAP) 130/73 (92) 116/62 (80) 110/57 (74) Pulse Ox 91 90 91 O2 Delivery Ventilator Ventilator Ventilator Mechanical Ventilator 03/15/19 03/15/19 03/15/19 03/15/19 16:10 17:00 17:32 17:33 Pulse 79 79 79 Resp 22 B/P (MAP) 134/69 (90) 134/69 134/69 Pulse Ox 90 90 O2 Delivery Ventilator Ventilator 03/15/19 03/15/19 03/15/19 03/15/19 18:00 18:28 18:48 19:00 Pulse 75 75 Resp 22 22 22 B/P (MAP) 122/66 (84) 131/62 (85) Pulse Ox 90 90 90 90 O2 Delivery Ventilator Ventilator Ventilator Ventilator 03/15/19 03/15/19 03/15/19 03/15/19 19:44 20:00 20:09 21:00 Temp 98.9 98.9 Pulse 79 78 Resp 22 22 B/P (MAP) 117/62 (80) 126/66 (86) Pulse Ox 94 92 94 O2 Delivery Mechanical Ventilator Ventilator Ventilator Ventilator 4/1403/15/19 03/15/19 03/16/19 22:00 23:00 23:59 00:00 Temp 98.8 98.8 Pulse 77 75 74 Resp 22 22 22 B/P (MAP) 124/72 (89) 119/62 (81) 107/56 (73) Pulse Ox 90 88 89 O2 Delivery Ventilator Ventilator Mechanical Ventilator Ventilator 03/16/19 03/16/19 03/16/19 03/16/19 00:02 00:02 01:00 02:00 Pulse 75 78 75 Resp 22 22 B/P (MAP) 107/56 106/70 (82) 119/75 (90) Pulse Ox 90 93 92 O2 Delivery Ventilator Ventilator Ventilator 03/16/19 03/16/19 03/16/19 03/16/19 03:00 03:01 03:37 04:00 Temp 99.7 99.7 Pulse 73 80 Resp 22 22 B/P (MAP) 119/74 (89) 105/71 (82) Pulse Ox 90 90 86 O2 Delivery Ventilator Ventilator Mechanical Ventilator Ventilator 03/16/19 03/16/19 03/16/19 03/16/19 05:00 05:32 05:32 05:52 Pulse 77 78 78 Resp 22 B/P (MAP) 106/66 (79) 120/72 120/72 Pulse Ox 92 92 O2 Delivery Ventilator Ventilator 03/16/19 03/16/19 03/16/19 06:00 07:00 08:00 Pulse 72 73 Resp 22 22 B/P (MAP) 121/60 (80) 122/71 (88) Pulse Ox 92 92 90 O2 Delivery Ventilator Ventilator Ventilator Intake and Output 03/15/19 03/15/19 03/16/19 15:00 23:00 07:00 Intake Total 610 ml 2711 ml 2477 ml Output Total 930 ml 1310 ml 945 ml Balance -320 ml 1401 ml 1532 ml YRIS RUIZ MD Mar 16, 2019 08:49
[2019-03-16 09:04] LABS: ALBUMIN 1.8 g/dL (3.4-5.0)
--- NOTE | 2019-03-16 09:14 | PDOC ---
SUBJECTIVE Subjective Pt ventilated and sedated. Per nursing, scrotal swelling is significantly improved. OBJECTIVE Objective Physical Exam: General appearance: Sedated and ventilated. Head: Normocephalic, without obvious abnormality Eyes: closed. Back: negative Lungs:Machine assisted ventilation. Regular respirations. Abdomen: soft, non-tender, obese. 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 No open areas or weeping. +Coburn catheter in place draining clear yellow urine; device in good working order. Vital Signs Vital Signs Date Time Temp Pulse Resp B/P (MAP) Pulse Ox O2 Delivery O2 Flow Rate FiO2 03/16/19 09:00 81 22 119/85 (96) 94 Ventilator 03/16/19 08:00 Mechanical Ventilator 03/16/19 08:00 98.3 74 22 123/63 (83) 94 Ventilator 98.3 03/16/19 08:00 90 Ventilator 03/16/19 07:00 73 22 122/71 (88) 92 Ventilator 03/16/19 06:00 72 22 121/60 (80) 92 Ventilator 03/16/19 05:52 92 Ventilator 03/16/19 05:32 78 120/72 03/16/19 05:32 78 120/72 03/16/19 05:00 77 22 106/66 (79) 92 Ventilator 03/16/19 04:00 99.7 80 22 105/71 (82) 86 Ventilator 99.7 03/16/19 03:37 Mechanical Ventilator 03/16/19 03:01 90 Ventilator 03/16/19 03:00 73 22 119/74 (89) 90 Ventilator 03/16/19 02:00 75 22 119/75 (90) 92 Ventilator 03/16/19 01:00 78 22 106/70 (82) 93 Ventilator 03/16/19 00:02 90 Ventilator 03/16/19 00:02 75 107/56 03/16/19 00:00 98.8 74 22 107/56 (73) 89 Ventilator 98.8 03/15/19 23:59 Mechanical Ventilator 03/15/19 23:00 75 22 119/62 (81) 88 Ventilator 03/15/19 22:00 77 22 124/72 (89) 90 Ventilator 03/15/19 21:00 78 22 126/66 (86) 94 Ventilator 03/15/19 20:09 92 Ventilator 03/15/19 20:00 98.9 79 22 117/62 (80) 94 Ventilator 98.9 03/15/19 19:44 Mechanical Ventilator 03/15/19 19:00 75 22 131/62 (85) 90 Ventilator 03/15/19 18:48 22 90 Ventilator 03/15/19 18:28 90 Ventilator 03/15/19 18:00 75 22 122/66 (84) 90 Ventilator 03/15/19 17:33 79 134/69 03/15/19 17:32 79 134/69 03/15/19 17:00 79 22 134/69 (90) 90 Ventilator 03/15/19 16:10 90 Ventilator 03/15/19 16:00 Mechanical Ventilator 03/15/19 16:00 98.8 68 22 110/57 (74) 91 Ventilator 98.8 03/15/19 15:00 70 22 116/62 (80) 90 Ventilator 03/15/19 14:00 73 22 130/73 (92) 91 Ventilator 03/15/19 13:11 22 91 Ventilator 03/15/19 13:07 89 Ventilator 03/15/19 13:00 67 22 116/61 (79) 89 Ventilator 03/15/19 12:41 22 91 Ventilator 03/15/19 12:00 Mechanical Ventilator 03/15/19 12:00 98.6 67 22 105/57 (73) 90 Ventilator 98.6 03/15/19 11:32 70 103/58 03/15/19 11:31 70 103/58 03/15/19 11:00 71 22 113/60 (77) 91 Ventilator 03/15/19 10:17 92 Ventilator 03/15/19 10:00 72 22 122/60 (80) 92 Ventilator I & O Intake and Output 03/16/19 07:00 Intake Total 5798 ml Output Total 3185 ml Balance 2613 ml IV Total 863 ml Tube Feeding 3435 ml Other 1500 ml Output Urine Total 3185 ml Gastric Drainage Total 0 ml # Bowel Movements 1 PHYSICAL EXAM Physical Exam Physical Exam: General appearance: Sedated and ventilated. Head: Normocephalic, without obvious abnormality Eyes: closed. Back: negative Lungs:Machine assisted ventilation. Regular respirations. Abdomen: soft, non-tender, obese. 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 No open areas or weeping. +Coburn catheter in place draining clear yellow urine; device in good working order. ASSESSMENT/PLAN Assessment/Plan Scrotal swelling is significantly improved, even since exam on Saturday. Coburn catheter functioning well, nursing to continue to maintain for now. Will defer decision when and if to remove catheter to medical team. Will sign off at this time, but please call with questions or changes in patient condition. Problems: (1) Edema COMMENT Lab Laboratory Tests Test 03/15/19 09:30 03/15/19 11:42 03/15/19 17:42 03/16/19 00:00 O2 Saturation 88 % (92-99) Arterial Blood pH 7.39 (7.35-7.45) Arterial Blood pCO2 at Patient Temp 55 mmHg (35-46) Arterial Blood pO2 at Patient Temp 57 mmHg (75-108) Arterial Blood HCO3 32 mmol/L (21-28) Arterial Blood Base Excess 6 mmol/L (-3-3) FiO2 100 Glucose (Fingerstick) 152 mg/dL (70-99) 151 mg/dL (70-99) 156 mg/dL (70-99) Test 03/16/19 05:25 03/16/19 05:26 White Blood Count 8.3 x10^3/uL (4.0-11.0) Red Blood Count 3.87 x10^6/uL (4.30-5.70) Hemoglobin 11.8 g/dL (13.0-17.5) Hematocrit 36.6 % (39.0-53.0) Mean Corpuscular Volume 95 fL (79-100) Mean Corpuscular Hemoglobin 31 pg (25-35) Mean Corpuscular Hemoglobin Concent 32 g/dL (31-37) Red Cell Distribution Width 15.2 % (11.5-14.5) Platelet Count 590 x10^3/uL (140-400) Neutrophils (%) (Auto) 78 % (31-73) Lymphocytes (%) (Auto) 9 % (24-48) Monocytes (%) (Auto) 5 % (0-9) Eosinophils (%) (Auto) 6 % (0-3) Basophils (%) (Auto) 1 % (0-3) Neutrophils # (Auto) 6.5 x10^3uL (1.8-7.7) Lymphocytes # (Auto) 0.8 x10^3/uL (1.0-4.8) Monocytes # (Auto) 0.4 x10^3/uL (0.0-1.1) Eosinophils # (Auto) 0.5 x10^3/uL (0.0-0.7) Basophils # (Auto) 0.1 x10^3/uL (0.0-0.2) Sodium Level 151 mmol/L (136-145) Potassium Level 4.7 mmol/L (3.5-5.1) Chloride Level 110 mmol/L (98-107) Carbon Dioxide Level 33 mmol/L (21-32) Anion Gap 8 (6-14) Blood Urea Nitrogen 73 mg/dL (8-26) Creatinine 1.8 mg/dL (0.7-1.3) Estimated GFR (Cockcroft-Gault) 39.2 Glucose Level 191 mg/dL (70-99) Calcium Level 9.2 mg/dL (8.5-10.1) Phosphorus Level 5.3 mg/dL (2.6-4.7) Magnesium Level 2.6 mg/dL (1.8-2.4) Albumin 1.8 g/dL (3.4-5.0) Glucose (Fingerstick) 186 mg/dL (70-99) Problem Qualifiers (1) Edema: Edema type: unspecified Qualified Codes: R60.9 - Edema, unspecified CHRIS CHAVEZ [employer] Mar 16, 2019 09:14
--- NOTE | 2019-03-16 09:33 | PDOC ---
Infectious Disease Note Subjective: Subjective Orally intubated and sedated, Tube feedings 20 ml/hr no fevers last 24 hrs D/W RN ROS: ROS Negative except for above. Vital Signs: Vital Signs Vital Signs Date Time Temp Pulse Resp B/P (MAP) Pulse Ox O2 Delivery O2 Flow Rate FiO2 03/16/19 09:00 81 22 119/85 (96) 94 Ventilator 03/16/19 08:00 98.3 98.3 Physical Exam: PHYSICAL EXAM GENERAL: Sedated and intubated. HEENT: PERRL, ETT. OGT NECK: Supple. LUNGS: Decreased in bases HEART: S1, S2. 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 RLE stump with chronic wound. No erythema/ fluctuance/warmth. no cyanosis SKIN: Warm to touch. 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 groin - fading [facility]: Sedated on vent RUE-PICC (03/09) clean Medications: Inpatient Meds: Current Medications Medications (Trade) Dose Ordered Sig/Lula Start Time Stop Time Status Last Admin Dose Admin Acetaminophen (Tylenol Supp) 650 mg PRN Q6HRS PRN 03/02/19 17:15 03/03/19 17:39 650 MG Acetaminophen (Tylenol) 650 mg PRN Q6HRS PRN 03/04/19 11:45 03/10/19 20:48 650 MG Albumin Human 100 ml @ 100 mls/hr 1X ONCE 03/03/19 08:30 03/03/19 09:29 DC 03/03/19 08:52 100 MLS/HR Albuterol Sulfate (Ventolin Neb Soln) 2.5 mg 1X ONCE 03/16/19 04:00 03/16/19 04:01 DC 03/16/19 04:00 2.5 MG Albuterol/ Ipratropium (Duoneb) 3 ml RTQID 02/28/19 16:00 03/16/19 07:59 3 ML Aspirin (Aspirin) 300 mg DAILY 02/28/19 09:00 02/28/19 09:42 DC Aspirin (Children'S Aspirin) 81 mg DAILYWBKFT 4/6/19 08:00 03/16/19 08:04 81 MG Atropine Sulfate (ATROPINE 0.5mg SYRINGE) 2 mg STK-MED ONCE 02/27/19 16:21 03/03/19 16:22 DC Calcium Chloride 1000 mg/Dextrose 60 ml @ 120 mls/hr 1X ONCE 02/28/19 10:30 02/28/19 10:59 DC 02/28/19 11:03 120 MLS/HR Cefepime HCl (Maxipime) 2 gm Q12HR 03/10/19 21:00 03/16/19 08:04 2 GM Ceftriaxone Sodium (Rocephin) 1 gm Q24H 02/28/19 11:00 02/28/19 11:18 DC 02/28/19 11:03 1 GM Dextrose (Dextrose 50%-Water Syringe) 12.5 gm PRN Q15MIN PRN 03/09/19 17:15 Digoxin (Lanoxin) 250 mcg 1X ONCE 03/06/19 22:00 03/06/19 22:01 DC 03/06/19 22:00 250 MCG Diltiazem HCl (Cardizem) 30 mg Q6HRS 03/12/19 12:00 03/16/19 05:32 30 MG Diltiazem HCl 125 mg/Dextrose 125 ml @ 5 mls/hr CONT PRN 03/06/19 23:00 03/12/19 11:03 DC 03/12/19 08:20 5 MLS/HR Dopamine HCl/ Dextrose (DOPamine 400MG/ 250ML PREMIX) 400 mg STK-MED ONCE 02/27/19 16:21 03/03/19 16:22 DC Etomidate (Amidate) 20 mg STK-MED ONCE 02/28/19 06:59 02/28/19 07:00 DC Famotidine (Pepcid Vial) 20 mg Q12HR 03/02/19 21:00 03/16/19 08:04 20 MG Fentanyl Citrate 30 ml @ 0 mls/hr CONT PRN 03/05/19 04:45 03/16/19 05:12 4.95 MLS/HR Fentanyl Citrate (Fentanyl 2ml Vial) 25 mcg PRN Q30MIN PRN 02/28/19 07:45 02/28/19 09:42 DC Furosemide (Lasix) 20 mg 1X ONCE 03/16/19 04:30 03/16/19 04:31 DC 03/16/19 04:17 20 MG Haloperidol Lactate (Haldol Inj) 5 mg PRN Q6HRS PRN 02/28/19 15:15 03/09/19 14:07 5 MG Heparin Sodium (Porcine) (Heparin Sodium) 5,000 unit Q8HRS 02/27/19 17:00 03/16/19 05:33 5,000 UNIT Info (Icu Electrolyte Protocol) 1 ea DAILY PRN 03/02/19 07:45 03/02/19 07:45 DC Insulin Glargine (Lantus) 20 units BID 03/12/19 09:00 03/16/19 08:06 20 UNITS Insulin Human Lispro (HumaLOG) 0-9 UNITS Q6HRS 03/12/19 12:00 03/16/19 05:33 5 UNITS Labetalol HCl (Normodyne Iv Push) 20 mg PRN Q2HR PRN 03/06/19 17:15 03/06/19 21:29 20 MG Linezolid/Dextrose 300 ml @ 300 mls/hr Q12HR 03/05/19 09:00 03/06/19 06:42 DC 03/05/19 21:24 300 MLS/HR Lorazepam (Ativan) 1 mg PRN Q30MIN PRN 02/28/19 07:45 02/28/19 09:42 DC Lorazepam 100 mg/ Sodium Chloride 100 ml @ 0 mls/hr CONT PRN 03/03/19 22:00 03/03/19 22:18 1 MLS/HR Meperidine HCl (Demerol) 12.5 mg PRN Q30MIN PRN 02/28/19 07:45 02/28/19 09:42 DC Meropenem 500 mg/ Sodium Chloride 50 ml @ 100 mls/hr Q6HRS 03/03/19 12:00 03/05/19 06:47 DC 03/05/19 05:33 100 MLS/HR Methylprednisolone Sodium Succinate (SOLU-Medrol 40MG VIAL) 80 mg 1X ONCE 03/16/19 04:30 03/16/19 04:31 DC 03/16/19 04:17 80 MG Metoclopramide HCl (Reglan Vial) 10 mg Q6HRS 03/07/19 08:00 03/08/19 07:51 DC Metoprolol Tartrate (Lopressor Vial) 5 mg Q6HRS 03/08/19 12:00 03/16/19 05:32 5 MG Metronidazole 100 ml @ 100 mls/hr Q8HRS 03/05/19 06:45 03/10/19 08:29 DC 03/10/19 05:45 100 MLS/HR Micafungin Sodium 100 mg/Dextrose 100 ml @ 100 mls/hr Q24H 02/28/19 12:00 03/05/19 06:47 DC 03/04/19 15:53 100 MLS/HR Midazolam HCl 100 ml @ 0 mls/hr CONT PRN 02/28/19 07:15 03/16/19 04:21 5 MLS/HR Morphine Sulfate (Morphine Sulfate) 2 mg PRN Q2HR PRN 02/27/19 16:45 02/28/19 16:44 DC Multi-Ingred Cream/Lotion/Oil/ Oint (Artificial Tears Eye Ointment) 1 jennifer PRN Q6HRS PRN 02/28/19 07:45 02/28/19 09:42 DC Nystatin (Mycostatin) 1 jennifer BID 03/06/19 09:00 03/16/19 08:05 1 JENNIFER Ondansetron HCl (Zofran) 4 mg PRN Q8HRS PRN 02/27/19 16:45 02/28/19 16:44 DC Perflutren Protein Type A Microsphe (Optison) 0.66 mg PRN 1X PRN 03/01/19 10:00 03/02/19 09:59 DC Propofol 100 ml @ 0 mls/hr CONT PRN 02/28/19 07:45 03/16/19 09:24 27.7 MLS/HR Rocuronium [place] (Zemuron) 50 mg STK-MED ONCE 02/28/19 07:00 02/28/19 09:42 DC Sodium Chloride 500 ml @ 500 mls/hr 1X ONCE 03/06/19 00:45 03/06/19 01:44 DC 03/06/19 00:49 500 MLS/HR Sodium Chloride (Normal Saline Flush) 3 ml QSHIFT PRN 02/28/19 07:45 Sodium Cl/Sod Bicarb/Potass Cl/ PEG (Golytely) 2,000 ml 1X ONCE 03/06/19 08:00 03/06/19 08:01 DC 03/06/19 09:33 2,000 ML Vecuronium [place] (Norcuron Bolus) 8 mg PRN Q4HRS PRN 02/28/19 15:15 03/12/19 23:48 8 MG Labs: Lab Laboratory Tests Test 03/15/19 11:42 03/15/19 17:42 03/16/19 00:00 03/16/19 05:25 Glucose (Fingerstick) 152 mg/dL (70-99) 151 mg/dL (70-99) 156 mg/dL (70-99) White Blood Count 8.3 x10^3/uL (4.0-11.0) Red Blood Count 3.87 x10^6/uL (4.30-5.70) Hemoglobin 11.8 g/dL (13.0-17.5) Hematocrit 36.6 % (39.0-53.0) Mean Corpuscular Volume 95 fL (79-100) Mean Corpuscular Hemoglobin 31 pg (25-35) Mean Corpuscular Hemoglobin Concent 32 g/dL (31-37) Red Cell Distribution Width 15.2 % (11.5-14.5) Platelet Count 590 x10^3/uL (140-400) Neutrophils (%) (Auto) 78 % (31-73) Lymphocytes (%) (Auto) 9 % (24-48) Monocytes (%) (Auto) 5 % (0-9) Eosinophils (%) (Auto) 6 % (0-3) Basophils (%) (Auto) 1 % (0-3) Neutrophils # (Auto) 6.5 x10^3uL (1.8-7.7) Lymphocytes # (Auto) 0.8 x10^3/uL (1.0-4.8) Monocytes # (Auto) 0.4 x10^3/uL (0.0-1.1) Eosinophils # (Auto) 0.5 x10^3/uL (0.0-0.7) Basophils # (Auto) 0.1 x10^3/uL (0.0-0.2) Sodium Level 151 mmol/L (136-145) Potassium Level 4.7 mmol/L (3.5-5.1) Chloride Level 110 mmol/L (98-107) Carbon Dioxide Level 33 mmol/L (21-32) Anion Gap 8 (6-14) Blood Urea Nitrogen 73 mg/dL (8-26) Creatinine 1.8 mg/dL (0.7-1.3) Estimated GFR (Cockcroft-Gault) 39.2 Glucose Level 191 mg/dL (70-99) Calcium Level 9.2 mg/dL (8.5-10.1) Phosphorus Level 5.3 mg/dL (2.6-4.7) Magnesium Level 2.6 mg/dL (1.8-2.4) Albumin 1.8 g/dL (3.4-5.0) Test 03/16/19 05:26 Glucose (Fingerstick) 186 mg/dL (70-99) Objective: Assessment: Fever improving pattern Flank rash - no Eosinophilia but ? drug - had been on micafungin so less likely yeast, better Tachycardia - s/p Bolus/Digoxin and Metoprolol Increased GI residuals - Has been on/off ? 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 Status post code. Fluid overload - mild increase Acute kidney injury, improving Distant history of group B strep, Acinetobacter, Porphyromonas, plus anaerobes. Plan: Plan of Care Cefepime Nystatin Cultures NGTD Supportive care Critically ill Prognosis poor Awaiting family meeting D/W VIVIAN SANCHEZ MD Mar 16, 2019 09:33
[2019-03-16 09:43] LABS: BASE EXCESS ABG 6 mmol/L (-3-3); HCO3 ABG 32 mmol/L (21-28); PCO2 ABG 52 mmHg (35-46); PO2 ABG 73 mmHg (75-108); SAT O2 ABG 94 % (92-99)
[2019-03-16 09:44] LABS: FIO2 ABG 100
--- NOTE | 2019-03-16 11:14 | PDOC ---
SUBJECTIVE ROS Intubated and sedated, OBJECTIVE Vital Signs Vital Signs Date Time Temp Pulse Resp B/P (MAP) Pulse Ox O2 Delivery O2 Flow Rate FiO2 03/16/19 10:55 22 94 Ventilator 03/16/19 10:00 77 124/66 (85) 03/16/19 08:00 98.3 98.3 I & 0 Intake and Output 03/16/19 07:00 Intake Total 5798 ml Output Total 3185 ml Balance 2613 ml IV Total 863 ml Tube Feeding 3435 ml Other 1500 ml Output Urine Total 3185 ml Gastric Drainage Total 0 ml # Bowel Movements 1 PHYSICAL EXAM Physical Exam GENERAL: Sedated and intubated. HEENT: ETT. OGT NECK: Supple. LUNGS: CTA ant HEART: S1, S2. ABDOMEN: Distended with decreased bowel sounds GENITOURINARY: Coburn +, + scrotal swelling EXTREMITIES: 1+ edema. RLE stump with chronic wound. SKIN: 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 groin DIAGNOSIS/ASSESSMENT Assessment & Plan LEONARD- Cr up to 2-2.3 down to 1.8 stable E-Lytes and acid base Acute hypoxemic /hypercapnic respiratory failure./ ARDS Anasarca- Improved IV Lasix Increased over the weekend to Q 8 hrs Hypernatremia - free water flushes Right Renal mass Fever - ? Infection vs ileus vs drug reaction Acute respiratory failure, intubated, increased infiltrates today - ARDS Scrotal edema/cellulitis- Improved urology consulted In hospital CP arrest Dw RN COMMENT/RELEVANT DATA Meds Current Medications Medications (Trade) Dose Ordered Sig/Lula Start Time Stop Time Status Last Admin Dose Admin Acetaminophen (Tylenol Supp) 650 mg PRN Q6HRS PRN 03/02/19 17:15 03/03/19 17:39 650 MG Acetaminophen (Tylenol) 650 mg PRN Q6HRS PRN 03/04/19 11:45 03/10/19 20:48 650 MG Albumin Human 100 ml @ 100 mls/hr 1X ONCE 03/03/19 08:30 03/03/19 09:29 DC 03/03/19 08:52 100 MLS/HR Albuterol Sulfate (Ventolin Neb Soln) 2.5 mg 1X ONCE 03/16/19 04:00 03/16/19 04:01 DC 03/16/19 04:00 2.5 MG Albuterol/ Ipratropium (Duoneb) 3 ml RTQID 02/28/19 16:00 03/16/19 07:59 3 ML Aspirin (Aspirin) 300 mg DAILY 02/28/19 09:00 02/28/19 09:42 DC Aspirin (Children'S Aspirin) 81 mg DAILYWBKFT 03/07/19 08:00 03/16/19 08:04 81 MG Atropine Sulfate (ATROPINE 0.5mg SYRINGE) 2 mg STK-MED ONCE 02/27/19 16:21 03/03/19 16:22 DC Calcium Chloride 1000 mg/Dextrose 60 ml @ 120 mls/hr 1X ONCE 02/28/19 10:30 02/28/19 10:59 DC 02/28/19 11:03 120 MLS/HR Cefepime HCl (Maxipime) 2 gm Q12HR 03/10/19 21:00 03/16/19 08:04 2 GM Ceftriaxone Sodium (Rocephin) 1 gm Q24H 02/28/19 11:00 02/28/19 11:18 DC 02/28/19 11:03 1 GM Dextrose (Dextrose 50%-Water Syringe) 12.5 gm PRN Q15MIN PRN 03/09/19 17:15 Digoxin (Lanoxin) 250 mcg 1X ONCE 03/06/19 22:00 03/06/19 22:01 DC 03/06/19 22:00 250 MCG Diltiazem HCl (Cardizem) 30 mg Q6HRS 03/12/19 12:00 03/16/19 05:32 30 MG Diltiazem HCl 125 mg/Dextrose 125 ml @ 5 mls/hr CONT PRN 03/06/19 23:00 03/12/19 11:03 DC 03/12/19 08:20 5 MLS/HR Dopamine HCl/ Dextrose (DOPamine 400MG/ 250ML PREMIX) 400 mg STK-MED ONCE 02/27/19 16:21 03/03/19 16:22 DC Etomidate (Amidate) 20 mg STK-MED ONCE 02/28/19 06:59 02/28/19 07:00 DC Famotidine (Pepcid Vial) 20 mg Q12HR 03/02/19 21:00 03/16/19 08:04 20 MG Fentanyl Citrate 30 ml @ 0 mls/hr CONT PRN 03/05/19 04:45 03/16/19 10:55 4.95 MLS/HR Fentanyl Citrate (Fentanyl 2ml Vial) 25 mcg PRN Q30MIN PRN 02/28/19 07:45 02/28/19 09:42 DC Furosemide (Lasix) 20 mg 1X ONCE 03/16/19 04:30 03/16/19 04:31 DC 03/16/19 04:17 20 MG Haloperidol Lactate (Haldol Inj) 5 mg PRN Q6HRS PRN 02/28/19 15:15 03/09/19 14:07 5 MG Heparin Sodium (Porcine) (Heparin Sodium) 5,000 unit Q8HRS 02/27/19 17:00 03/16/19 05:33 5,000 UNIT Info (Icu Electrolyte Protocol) 1 ea DAILY PRN 03/02/19 07:45 03/02/19 07:45 DC Insulin Glargine (Lantus) 20 units BID 03/12/19 09:00 03/16/19 08:06 20 UNITS Insulin Human Lispro (HumaLOG) 0-9 UNITS Q6HRS 03/12/19 12:00 03/16/19 05:33 5 UNITS Labetalol HCl (Normodyne Iv Push) 20 mg PRN Q2HR PRN 03/06/19 17:15 03/06/19 21:29 20 MG Linezolid/Dextrose 300 ml @ 300 mls/hr Q12HR 03/05/19 09:00 03/06/19 06:42 DC 03/05/19 21:24 300 MLS/HR Lorazepam (Ativan) 1 mg PRN Q30MIN PRN 02/28/19 07:45 02/28/19 09:42 DC Lorazepam 100 mg/ Sodium Chloride 100 ml @ 0 mls/hr CONT PRN 03/03/19 22:00 03/03/19 22:18 1 MLS/HR Meperidine HCl (Demerol) 12.5 mg PRN Q30MIN PRN 02/28/19 07:45 02/28/19 09:42 DC Meropenem 500 mg/ Sodium Chloride 50 ml @ 100 mls/hr Q6HRS 03/03/19 12:00 03/05/19 06:47 DC 03/05/19 05:33 100 MLS/HR Methylprednisolone Sodium Succinate (SOLU-Medrol 40MG VIAL) 80 mg 1X ONCE 03/16/19 04:30 03/16/19 04:31 DC 03/16/19 04:17 80 MG Metoclopramide HCl (Reglan Vial) 10 mg Q6HRS 03/07/19 08:00 03/08/19 07:51 DC Metoprolol Tartrate (Lopressor Vial) 5 mg Q6HRS 03/08/19 12:00 03/16/19 05:32 5 MG Metronidazole 100 ml @ 100 mls/hr Q8HRS 03/05/19 06:45 03/10/19 08:29 DC 03/10/19 05:45 100 MLS/HR Micafungin Sodium 100 mg/Dextrose 100 ml @ 100 mls/hr Q24H 02/28/19 12:00 03/05/19 06:47 DC 03/04/19 15:53 100 MLS/HR Midazolam HCl 100 ml @ 0 mls/hr CONT PRN 02/28/19 07:15 03/16/19 04:21 5 MLS/HR Morphine Sulfate (Morphine Sulfate) 2 mg PRN Q2HR PRN 02/27/19 16:45 02/28/19 16:44 DC Multi-Ingred Cream/Lotion/Oil/ Oint (Artificial Tears Eye Ointment) 1 jennifer PRN Q6HRS PRN 02/28/19 07:45 02/28/19 09:42 DC Nystatin (Mycostatin) 1 jennifer BID 03/06/19 09:00 03/16/19 08:05 1 JENNIFER Ondansetron HCl (Zofran) 4 mg PRN Q8HRS PRN 02/27/19 16:45 02/28/19 16:44 DC Perflutren Protein Type A Microsphe (Optison) 0.66 mg PRN 1X PRN 03/01/19 10:00 03/02/19 09:59 DC Propofol 100 ml @ 0 mls/hr CONT PRN 02/28/19 07:45 03/16/19 09:24 27.7 MLS/HR Rocuronium [place] (Zemuron) 50 mg STK-MED ONCE 02/28/19 07:00 02/28/19 09:42 DC Sodium Chloride 500 ml @ 500 mls/hr 1X ONCE 03/06/19 00:45 03/06/19 01:44 DC 03/06/19 00:49 500 MLS/HR Sodium Chloride (Normal Saline Flush) 3 ml QSHIFT PRN 02/28/19 07:45 Sodium Cl/Sod Bicarb/Potass Cl/ PEG (Golytely) 2,000 ml 1X ONCE 03/06/19 08:00 03/06/19 08:01 DC 03/06/19 09:33 2,000 ML Vecuronium [place] (Norcuron Bolus) 8 mg PRN Q4HRS PRN 02/28/19 15:15 03/12/19 23:48 8 MG Lab Laboratory Tests Test 03/15/19 11:42 03/15/19 17:42 03/16/19 00:00 03/16/19 05:25 Glucose (Fingerstick) 152 mg/dL (70-99) 151 mg/dL (70-99) 156 mg/dL (70-99) White Blood Count 8.3 x10^3/uL (4.0-11.0) Red Blood Count 3.87 x10^6/uL (4.30-5.70) Hemoglobin 11.8 g/dL (13.0-17.5) Hematocrit 36.6 % (39.0-53.0) Mean Corpuscular Volume 95 fL (79-100) Mean Corpuscular Hemoglobin 31 pg (25-35) Mean Corpuscular Hemoglobin Concent 32 g/dL (31-37) Red Cell Distribution Width 15.2 % (11.5-14.5) Platelet Count 590 x10^3/uL (140-400) Neutrophils (%) (Auto) 78 % (31-73) Lymphocytes (%) (Auto) 9 % (24-48) Monocytes (%) (Auto) 5 % (0-9) Eosinophils (%) (Auto) 6 % (0-3) Basophils (%) (Auto) 1 % (0-3) Neutrophils # (Auto) 6.5 x10^3uL (1.8-7.7) Lymphocytes # (Auto) 0.8 x10^3/uL (1.0-4.8) Monocytes # (Auto) 0.4 x10^3/uL (0.0-1.1) Eosinophils # (Auto) 0.5 x10^3/uL (0.0-0.7) Basophils # (Auto) 0.1 x10^3/uL (0.0-0.2) Sodium Level 151 mmol/L (136-145) Potassium Level 4.7 mmol/L (3.5-5.1) Chloride Level 110 mmol/L (98-107) Carbon Dioxide Level 33 mmol/L (21-32) Anion Gap 8 (6-14) Blood Urea Nitrogen 73 mg/dL (8-26) Creatinine 1.8 mg/dL (0.7-1.3) Estimated GFR (Cockcroft-Gault) 39.2 Glucose Level 191 mg/dL (70-99) Calcium Level 9.2 mg/dL (8.5-10.1) Phosphorus Level 5.3 mg/dL (2.6-4.7) Magnesium Level 2.6 mg/dL (1.8-2.4) Albumin 1.8 g/dL (3.4-5.0) Test 03/16/19 05:26 03/16/19 09:15 Glucose (Fingerstick) 186 mg/dL (70-99) O2 Saturation 94 % (92-99) Arterial Blood pH 7.41 (7.35-7.45) Arterial Blood pCO2 at Patient Temp 52 mmHg (35-46) Arterial Blood pO2 at Patient Temp 73 mmHg (75-108) Arterial Blood HCO3 32 mmol/L (21-28) Arterial Blood Base Excess 6 mmol/L (-3-3) FiO2 100 Results All relevant outside records, renal labs, imaging studies, telemetry/EKG's were reviewed. Other CxR-- There are diffuse bilateral pulmonary infiltrates with poor definition of the underlying pulmonary vascularity. There has been no improvement since yesterday study. The findings may reflect pulmonary edema, ARDS or overwhelming pneumonia. There is probable pleural fluid contributing to the basilar opacities. The heart size is unchanged. There is no evidence of pneumothorax. No new abnormality is detected. IMPRESSION: 1. Stable tube positions. 2. Ongoing extensive bilateral pulmonary infiltrates and bilateral pleural effusions. GALO AMBRIZ MD Mar 16, 2019 11:14
--- NOTE | 2019-03-16 14:04 | PDOC ---
PULMONARY PROGRESS NOTES Subjective ON AC MODE SEDATED on versed, fentanyl, propofol 100% FIO2/16 PEEP, small ett secretion Vitals Vital Signs Date Time Temp Pulse Resp B/P (MAP) Pulse Ox O2 Delivery O2 Flow Rate FiO2 03/16/19 13:59 75 171/87 03/16/19 12:30 96 Ventilator 03/16/19 12:00 98.6 22 98.6 Comments ros as mentioned as above discussed w rn, rt, other sys otherwise neg on vent sedated HEENT: Other (nc at perrl nose clear orally intubated neck no lad, no thyromegaly) Lungs: Other (decrease bs) Cardiovascular: S1, S2, Other (decrease bs) Abdomen: Soft, Non-tender, Other (OBESE no mass) Extremities: Other (venous stasis and edema left, right BKA) Skin: Warm Labs Laboratory Tests Test 03/14/19 18:09 03/14/19 21:22 03/15/19 01:23 03/15/19 06:02 Glucose (Fingerstick) 206 mg/dL (70-99) 194 mg/dL (70-99) 189 mg/dL (70-99) 187 mg/dL (70-99) Test 03/15/19 06:15 03/15/19 09:30 03/15/19 11:42 03/15/19 17:42 Sodium Level 149 mmol/L (136-145) Potassium Level 4.9 mmol/L (3.5-5.1) Chloride Level 110 mmol/L (98-107) Carbon Dioxide Level 34 mmol/L (21-32) Anion Gap 5 (6-14) Blood Urea Nitrogen 69 mg/dL (8-26) Creatinine 1.6 mg/dL (0.7-1.3) Estimated GFR (Cockcroft-Gault) 44.9 Glucose Level 193 mg/dL (70-99) Calcium Level 8.8 mg/dL (8.5-10.1) Phosphorus Level 4.8 mg/dL (2.6-4.7) Magnesium Level 2.7 mg/dL (1.8-2.4) Triglycerides Level 200 mg/dL (0-150) O2 Saturation 88 % (92-99) Arterial Blood pH 7.39 (7.35-7.45) Arterial Blood pCO2 at Patient Temp 55 mmHg (35-46) Arterial Blood pO2 at Patient Temp 57 mmHg (75-108) Arterial Blood HCO3 32 mmol/L (21-28) Arterial Blood Base Excess 6 mmol/L (-3-3) FiO2 100 Glucose (Fingerstick) 152 mg/dL (70-99) 151 mg/dL (70-99) Test 03/16/19 00:00 03/16/19 05:25 03/16/19 05:26 03/16/19 09:15 Glucose (Fingerstick) 156 mg/dL (70-99) 186 mg/dL (70-99) White Blood Count 8.3 x10^3/uL (4.0-11.0) Red Blood Count 3.87 x10^6/uL (4.30-5.70) Hemoglobin 11.8 g/dL (13.0-17.5) Hematocrit 36.6 % (39.0-53.0) Mean Corpuscular Volume 95 fL (79-100) Mean Corpuscular Hemoglobin 31 pg (25-35) Mean Corpuscular Hemoglobin Concent 32 g/dL (31-37) Red Cell Distribution Width 15.2 % (11.5-14.5) Platelet Count 590 x10^3/uL (140-400) Neutrophils (%) (Auto) 78 % (31-73) Lymphocytes (%) (Auto) 9 % (24-48) Monocytes (%) (Auto) 5 % (0-9) Eosinophils (%) (Auto) 6 % (0-3) Basophils (%) (Auto) 1 % (0-3) Neutrophils # (Auto) 6.5 x10^3uL (1.8-7.7) Lymphocytes # (Auto) 0.8 x10^3/uL (1.0-4.8) Monocytes # (Auto) 0.4 x10^3/uL (0.0-1.1) Eosinophils # (Auto) 0.5 x10^3/uL (0.0-0.7) Basophils # (Auto) 0.1 x10^3/uL (0.0-0.2) Sodium Level 151 mmol/L (136-145) Potassium Level 4.7 mmol/L (3.5-5.1) Chloride Level 110 mmol/L (98-107) Carbon Dioxide Level 33 mmol/L (21-32) Anion Gap 8 (6-14) Blood Urea Nitrogen 73 mg/dL (8-26) Creatinine 1.8 mg/dL (0.7-1.3) Estimated GFR (Cockcroft-Gault) 39.2 Glucose Level 191 mg/dL (70-99) Calcium Level 9.2 mg/dL (8.5-10.1) Phosphorus Level 5.3 mg/dL (2.6-4.7) Magnesium Level 2.6 mg/dL (1.8-2.4) Albumin 1.8 g/dL (3.4-5.0) O2 Saturation 94 % (92-99) Arterial Blood pH 7.41 (7.35-7.45) Arterial Blood pCO2 at Patient Temp 52 mmHg (35-46) Arterial Blood pO2 at Patient Temp 73 mmHg (75-108) Arterial Blood HCO3 32 mmol/L (21-28) Arterial Blood Base Excess 6 mmol/L (-3-3) FiO2 100 Test 03/16/19 11:51 Glucose (Fingerstick) 287 mg/dL (70-99) Laboratory Tests Test 03/15/19 17:42 03/16/19 00:00 03/16/19 05:25 03/16/19 05:26 Glucose (Fingerstick) 151 mg/dL (70-99) 156 mg/dL (70-99) 186 mg/dL (70-99) White Blood Count 8.3 x10^3/uL (4.0-11.0) Red Blood Count 3.87 x10^6/uL (4.30-5.70) Hemoglobin 11.8 g/dL (13.0-17.5) Hematocrit 36.6 % (39.0-53.0) Mean Corpuscular Volume 95 fL (79-100) Mean Corpuscular Hemoglobin 31 pg (25-35) Mean Corpuscular Hemoglobin Concent 32 g/dL (31-37) Red Cell Distribution Width 15.2 % (11.5-14.5) Platelet Count 590 x10^3/uL (140-400) Neutrophils (%) (Auto) 78 % (31-73) Lymphocytes (%) (Auto) 9 % (24-48) Monocytes (%) (Auto) 5 % (0-9) Eosinophils (%) (Auto) 6 % (0-3) Basophils (%) (Auto) 1 % (0-3) Neutrophils # (Auto) 6.5 x10^3uL (1.8-7.7) Lymphocytes # (Auto) 0.8 x10^3/uL (1.0-4.8) Monocytes # (Auto) 0.4 x10^3/uL (0.0-1.1) Eosinophils # (Auto) 0.5 x10^3/uL (0.0-0.7) Basophils # (Auto) 0.1 x10^3/uL (0.0-0.2) Sodium Level 151 mmol/L (136-145) Potassium Level 4.7 mmol/L (3.5-5.1) Chloride Level 110 mmol/L (98-107) Carbon Dioxide Level 33 mmol/L (21-32) Anion Gap 8 (6-14) Blood Urea Nitrogen 73 mg/dL (8-26) Creatinine 1.8 mg/dL (0.7-1.3) Estimated GFR (Cockcroft-Gault) 39.2 Glucose Level 191 mg/dL (70-99) Calcium Level 9.2 mg/dL (8.5-10.1) Phosphorus Level 5.3 mg/dL (2.6-4.7) Magnesium Level 2.6 mg/dL (1.8-2.4) Albumin 1.8 g/dL (3.4-5.0) Test 03/16/19 09:15 03/16/19 11:51 O2 Saturation 94 % (92-99) Arterial Blood pH 7.41 (7.35-7.45) Arterial Blood pCO2 at Patient Temp 52 mmHg (35-46) Arterial Blood pO2 at Patient Temp 73 mmHg (75-108) Arterial Blood HCO3 32 mmol/L (21-28) Arterial Blood Base Excess 6 mmol/L (-3-3) FiO2 100 Glucose (Fingerstick) 287 mg/dL (70-99) Medications Active Scripts Medications Dose Route/Sig Max Daily Dose Days Date Category Proair Hfa Inhaler (Albuterol Sulfate) 8.5 Gm Hfa.aer.ad 1 Puff INH PRN Q6HRS PRN 02/27/19 Reported Lantus Solostar (Insulin Glargine,Hum.rec.anlog) 100 Unit/1 Ml Insuln.pen 20 Unit SQ QHS 02/27/19 Reported Humalog (Insulin Lispro) 100 Unit/1 Ml Cartridge 6 Unit SQ TIDWMEALS 02/27/19 Reported Doxazosin Mesylate 2 Mg Tablet 2 Mg PO DAILY 02/27/19 Reported Omeprazole 40 Mg Capsule.dr 40 Mg PO DAILY 02/27/19 Reported Amlodipine Besylate 10 Mg Tablet 10 Mg PO DAILY 02/27/19 Reported Atorvastatin Calcium 20 Mg Tablet 20 Mg PO DAILY 02/27/19 Reported Atenolol 50 Mg Tablet 50 Mg PO DAILY 02/27/19 Reported Losartan Potassium 100 Mg Tablet 100 Mg PO DAILY 02/27/19 Reported Aspirin 81 Mg Tab.chew 81 Mg PO DAILY 02/27/19 Reported Glyburide 5 Mg Tablet 1 Tab PO BID 11/09/16 Reported Comments CXR REVIEWED 03/16 b lat diffuse infilt ,ett ok Impression . 1. Acute hypoxemic /hypercapnic respiratory failure./ ARDS 2. sepsis./ ARDS 3. In-house cardiopulmonary arrest. 4. Normal EF / mild Pulmonary HTN 5. Acute on chronic right-sided heart failure. 6. Possible pneumonia. 7. Morbid obesity. 8. Diabetes. 9. ANASARCA 10. Abnormal CXR <Conclusion>ECHO The left ventricular systolic function is normal. The ejection fraction is 60-65%. There is normal LV segmental wall motion. Transmitral Doppler flow pattern is Grade I-abnormal relaxation pattern. Trace tricuspid regurgitation. Estimated PAP 33-38 mmHg. There is no evidence of significant pericardial effusion. VENOUS 02/28 Impression: 1. There is no evidence of deep venous thrombosis from the bilateral common femoral to popliteal veins. 2. There is nonspecific right groin lymph node. Plan . AC MODE ,16 PEEP [id number]% FI02, cont vent support, setting reviewed, ANITBX PER ID keep I<O, lasix dose increased per nephro, monitor k, cr bilateral venous Dopplers of lower extremities.NEG DVT and GI prophylaxis. Follow Cardiology.rec Enteral nutrition am abg, cxr elevate hob discussed w rn, rt DNR, poor prognosis Overall Prognosis extremely grim and O2 / PEEP requirement continues to increase . d/w sister. Daughter on the way from [place]. I rec comfort care. ALEJANDRINA WILBURN MD Mar 16, 2019 14:04
[2019-03-17] VITALS (23 sets, daily range): BP systolic 111–172; BP diastolic 54–82
[2019-03-17] MEDS: PROPOFOL 100 ML IV PRN ×5 (02:58→22:54)
[2019-03-17 05:44] LABS: ALBUMIN 1.8 g/dL (3.4-5.0); CALCIUM 8.8 mg/dL (8.5-10.1); CREATININE 1.9 mg/dL (0.7-1.3); GFR 36.9; PHOSPHORUS 4.7 mg/dL (2.6-4.7); POTASSIUM 4.9 mmol/L (3.5-5.1)
[2019-03-17] MEDS: dilTIAZem HCL 30 MG TABLET PO SCH ×4 (05:49→18:19)
[2019-03-17] MEDS: FUROSEMIDE 40 MG/4 ML VIAL. IVP SCH (05:49)
[2019-03-17] MEDS: METOPROLOL TARTRATE 5 MG/5 ML VIAL. IVP SCH ×4 (05:49→18:19)
[2019-03-17] MEDS: INSULIN LISPRO 300 UNITS/3 ML INSULN.PEN. SQ SCH ×5 (05:51→18:26)
[2019-03-17] MEDS: HEPARIN for SUB-Q USE 5,000 UNIT/ML VIAL. SQ SCH ×3 (05:51→21:48)
--- NOTE | 2019-03-17 08:03 | PDOC ---
Infectious Disease Note Subjective: Subjective Orally intubated and sedated, no fevers last 24 hrs has high residuals D/W RN ROS: ROS Negative except for above. Vital Signs: Vital Signs Vital Signs Date Time Temp Pulse Resp B/P (MAP) Pulse Ox O2 Delivery O2 Flow Rate FiO2 03/17/19 06:00 64 27 160/65 (96) 98 Ventilator 03/17/19 04:00 98.7 98.7 03/16/19 16:54 96.0 Physical Exam: PHYSICAL EXAM GENERAL: Sedated and intubated. HEENT: PERRL, ETT. OGT NECK: Supple. LUNGS: Decreased in bases HEART: S1, S2. 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 RLE stump with chronic wound. No erythema/ fluctuance/warmth. no cyanosis SKIN: Warm to touch. 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 RUE-PICC (03/09) clean Medications: Inpatient Meds: Current Medications Medications (Trade) Dose Ordered Sig/Lula Start Time Stop Time Status Last Admin Dose Admin Acetaminophen (Tylenol Supp) 650 mg PRN Q6HRS PRN 03/02/19 17:15 03/03/19 17:39 650 MG Acetaminophen (Tylenol) 650 mg PRN Q6HRS PRN 03/04/19 11:45 03/10/19 20:48 650 MG Albumin Human 100 ml @ 100 mls/hr 1X ONCE 03/03/19 08:30 03/03/19 09:29 DC 03/03/19 08:52 100 MLS/HR Albuterol Sulfate (Ventolin Neb Soln) 2.5 mg 1X ONCE 03/16/19 04:00 03/16/19 04:01 DC 03/16/19 04:00 2.5 MG Albuterol/ Ipratropium (Duoneb) 3 ml RTQID 02/28/19 16:00 03/16/19 19:43 3 ML Aspirin (Aspirin) 300 mg DAILY 02/28/19 09:00 02/28/19 09:42 DC Aspirin (Children'S Aspirin) 81 mg DAILYWBKFT 03/07/19 08:00 03/16/19 08:04 81 MG Atropine Sulfate (ATROPINE 0.5mg SYRINGE) 2 mg STK-MED ONCE 02/27/19 16:21 03/03/19 16:22 DC Calcium Chloride 1000 mg/Dextrose 60 ml @ 120 mls/hr 1X ONCE 02/28/19 10:30 02/28/19 10:59 DC 02/28/19 11:03 120 MLS/HR Cefepime HCl (Maxipime) 2 gm Q12HR 03/10/19 21:00 03/16/19 20:43 2 GM Ceftriaxone Sodium (Rocephin) 1 gm Q24H 02/28/19 11:00 02/28/19 11:18 DC 02/28/19 11:03 1 GM Dextrose (Dextrose 50%-Water Syringe) 12.5 gm PRN Q15MIN PRN 03/09/19 17:15 Digoxin (Lanoxin) 250 mcg 1X ONCE 03/06/19 22:00 03/06/19 22:01 DC 03/06/19 22:00 250 MCG Diltiazem HCl (Cardizem) 30 mg Q6HRS 03/12/19 12:00 03/17/19 05:49 30 MG Diltiazem HCl 125 mg/Dextrose 125 ml @ 5 mls/hr CONT PRN 03/06/19 23:00 03/12/19 11:03 DC 03/12/19 08:20 5 MLS/HR Dopamine HCl/ Dextrose (DOPamine 400MG/ 250ML PREMIX) 400 mg STK-MED ONCE 02/27/19 16:21 03/03/19 16:22 DC Etomidate (Amidate) 20 mg STK-MED ONCE 02/28/19 06:59 02/28/19 07:00 DC Famotidine (Pepcid Vial) 20 mg Q12HR 03/02/19 21:00 03/16/19 20:44 20 MG Fentanyl Citrate 30 ml @ 0 mls/hr CONT PRN 03/05/19 04:45 03/17/19 03:57 4.95 MLS/HR Fentanyl Citrate (Fentanyl 2ml Vial) 25 mcg PRN Q30MIN PRN 02/28/19 07:45 02/28/19 09:42 DC Furosemide (Lasix) 20 mg 1X ONCE 03/16/19 04:30 4/15/19 04:31 DC 03/16/19 04:17 20 MG Haloperidol Lactate (Haldol Inj) 5 mg PRN Q6HRS PRN 02/28/19 15:15 03/09/19 14:07 5 MG Heparin Sodium (Porcine) (Heparin Sodium) 5,000 unit Q8HRS 02/27/19 17:00 03/17/19 05:51 5,000 UNIT Info (Icu Electrolyte Protocol) 1 ea DAILY PRN 03/02/19 07:45 03/02/19 07:45 DC Insulin Glargine (Lantus) 20 units BID 03/12/19 09:00 03/16/19 20:45 20 UNITS Insulin Human Lispro (HumaLOG) 0-9 UNITS Q6HRS 03/12/19 12:00 03/17/19 05:51 12 UNITS Labetalol HCl (Normodyne Iv Push) 20 mg PRN Q2HR PRN 03/06/19 17:15 03/06/19 21:29 20 MG Linezolid/Dextrose 300 ml @ 300 mls/hr Q12HR 03/05/19 09:00 03/06/19 06:42 DC 03/05/19 21:24 300 MLS/HR Lorazepam (Ativan) 1 mg PRN Q30MIN PRN 02/28/19 07:45 02/28/19 09:42 DC Lorazepam 100 mg/ Sodium Chloride 100 ml @ 0 mls/hr CONT PRN 03/03/19 22:00 03/03/19 22:18 1 MLS/HR Meperidine HCl (Demerol) 12.5 mg PRN Q30MIN PRN 02/28/19 07:45 02/28/19 09:42 DC Meropenem 500 mg/ Sodium Chloride 50 ml @ 100 mls/hr Q6HRS 03/03/19 12:00 03/05/19 06:47 DC 03/05/19 05:33 100 MLS/HR Methylprednisolone Sodium Succinate (SOLU-Medrol 40MG VIAL) 80 mg 1X ONCE 03/16/19 04:30 03/16/19 04:31 DC 03/16/19 04:17 80 MG Metoclopramide HCl (Reglan Vial) 10 mg Q6HRS 03/07/19 08:00 03/08/19 07:51 DC Metoprolol Tartrate (Lopressor Vial) 5 mg Q6HRS 03/08/19 12:00 03/17/19 05:49 5 MG Metronidazole 100 ml @ 100 mls/hr Q8HRS 03/05/19 06:45 03/10/19 08:29 DC 03/10/19 05:45 100 MLS/HR Micafungin Sodium 100 mg/Dextrose 100 ml @ 100 mls/hr Q24H 02/28/19 12:00 03/05/19 06:47 DC 03/04/19 15:53 100 MLS/HR Midazolam HCl 100 ml @ 0 mls/hr CONT PRN 02/28/19 07:15 03/16/19 23:52 5 MLS/HR Morphine Sulfate (Morphine Sulfate) 2 mg PRN Q2HR PRN 02/27/19 16:45 02/28/19 16:44 DC Multi-Ingred Cream/Lotion/Oil/ Oint (Artificial Tears Eye Ointment) 1 jennifer PRN Q6HRS PRN 02/28/19 07:45 02/28/19 09:42 DC Nystatin (Mycostatin) 1 jennifer BID 03/06/19 09:00 03/16/19 20:44 1 JENNIFER Ondansetron HCl (Zofran) 4 mg PRN Q8HRS PRN 02/27/19 16:45 02/28/19 16:44 DC Perflutren Protein Type A Microsphe (Optison) 0.66 mg PRN 1X PRN 03/01/19 10:00 03/02/19 09:59 DC Propofol 100 ml @ 0 mls/hr CONT PRN 02/28/19 07:45 03/17/19 07:24 18.5 MLS/HR Rocuronium Wayne (Zemuron) 50 mg STK-MED ONCE 02/28/19 07:00 02/28/19 09:42 DC Sodium Chloride 500 ml @ 500 mls/hr 1X ONCE 03/06/19 00:45 03/06/19 01:44 DC 03/06/19 00:49 500 MLS/HR Sodium Chloride (Normal Saline Flush) 3 ml QSHIFT PRN 02/28/19 07:45 Sodium Cl/Sod Bicarb/Potass Cl/ PEG (Golytely) 2,000 ml 1X ONCE 03/06/19 08:00 03/06/19 08:01 DC 03/06/19 09:33 2,000 ML Vecuronium Wayne (Norcuron Bolus) 8 mg PRN Q4HRS PRN 02/28/19 15:15 03/12/19 23:48 8 MG Labs: Lab Laboratory Tests Test 03/16/19 09:15 03/16/19 11:51 03/16/19 18:41 03/16/19 20:43 O2 Saturation 94 % (92-99) Arterial Blood pH 7.41 (7.35-7.45) Arterial Blood pCO2 at Patient Temp 52 mmHg (35-46) Arterial Blood pO2 at Patient Temp 73 mmHg (75-108) Arterial Blood HCO3 32 mmol/L (21-28) Arterial Blood Base Excess 6 mmol/L (-3-3) FiO2 100 Glucose (Fingerstick) 287 mg/dL (70-99) 339 mg/dL (70-99) 316 mg/dL (70-99) Test 03/17/19 00:26 03/17/19 05:15 03/17/19 05:18 Glucose (Fingerstick) 318 mg/dL (70-99) 333 mg/dL (70-99) Sodium Level 149 mmol/L (136-145) Potassium Level 4.9 mmol/L (3.5-5.1) Chloride Level 109 mmol/L (98-107) Carbon Dioxide Level 33 mmol/L (21-32) Anion Gap 7 (6-14) Blood Urea Nitrogen 82 mg/dL (8-26) Creatinine 1.9 mg/dL (0.7-1.3) Estimated GFR (Cockcroft-Gault) 36.9 Glucose Level 350 mg/dL (70-99) Calcium Level 8.8 mg/dL (8.5-10.1) Phosphorus Level 4.7 mg/dL (2.6-4.7) Albumin 1.8 g/dL (3.4-5.0) Objective: Assessment: Fever resolving Flank rash - no Eosinophilia but ? drug - had been on micafungin so less likely yeast, better Tachycardia - s/p Bolus/Digoxin and Metoprolol Increased GI residuals - Has been on/off ? 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 Status post code. Fluid overload - mild increase Acute kidney injury, improving Distant history of group B strep, Acinetobacter, Porphyromonas, plus anaerobes. Plan: Plan of Care Cefepime Nystatin Cultures NGTD Supportive care Critically ill Prognosis poor Awaiting family meeting D/W VIVIAN SANCHEZ MD Mar 17, 2019 08:03
[2019-03-17] MEDS: IPRATRPIUM/ALBUTEROL 0.5/2.5MG 3 ML NEBU. NEB SCH ×4 (08:12→20:03)
[2019-03-17 08:13] LABS: BASE EXCESS ABG 8 mmol/L (-3-3); HCO3 ABG 34 mmol/L (21-28); PCO2 ABG 52 mmHg (35-46); PO2 ABG 99 mmHg (75-108); SAT O2 ABG 97 % (92-99)
[2019-03-17] MEDS: FAMOTIDINE 20 MG/2 ML VIAL IVP SCH ×2 (08:18→21:01)
[2019-03-17] MEDS: ASPIRIN CHEWABLE 81 MG TABLET. PO SCH (08:18)
[2019-03-17] MEDS: INSULIN GLARGINE 300 UNITS/3 ML INSULN.PEN. SQ SCH ×2 (08:32→21:01)
[2019-03-17 09:01] LABS: FIO2 ABG 100
[2019-03-17] MEDS: NYSTATIN 100,000 UNIT/GM TOPICAL CREAM 15GM TUBE. TP SCH ×2 (09:50→21:02)
--- NOTE | 2019-03-17 10:01 | RAD ---
Portable chest, 03/17/2019: HISTORY: Patient on ventilator Comparison is made to yesterday's study. The ET tube tip lies 7 cm above the armani. An NG tube extends into the stomach. A right PICC extends into the right atrium. The heart size is unchanged. Moderate bilateral pulmonary infiltrates have improved with better definition of the underlying pulmonary vascularity. Improving pulmonary edema is suspected. There are persistent hazy basilar opacities obscuring the hemidiaphragms compatible with ongoing pleural fluid. No new abnormality is detected. IMPRESSION: 1. Stable tube positions. 2. Improving bilateral pulmonary infiltrates. Electronically signed by: Moose Astorga MD (03/17/2019 9:58 AM) [facility]
[2019-03-17] MEDS: CEFEPIME HCL IV Push 2 GM VIAL. IVP SCH ×2 (10:33→21:01)
--- NOTE | 2019-03-17 10:57 | PDOC ---
PULMONARY PROGRESS NOTES Subjective ON AC MODE SEDATED on versed, fentanyl, propofol 100% FIO2/16 PEEP, small ett secretion improving CXR and PO2 Vitals Vital Signs Date Time Temp Pulse Resp B/P (MAP) Pulse Ox O2 Delivery O2 Flow Rate FiO2 03/17/19 10:47 96 03/17/19 10:01 96.0 03/17/19 10:00 72 27 117/62 (80) Ventilator 03/17/19 08:00 98.4 98.4 Comments ros as mentioned as above discussed w rn, rt, other sys otherwise neg on vent sedated HEENT: Other (nc at perrl nose clear orally intubated neck no lad, no thyromegaly) Lungs: Other (decrease bs) Cardiovascular: S1, S2, Other (decrease bs) Abdomen: Soft, Non-tender, Other (OBESE no mass) Extremities: Other (venous stasis and edema left, right BKA) Skin: Warm Labs Laboratory Tests Test 03/15/19 11:42 03/15/19 17:42 03/16/19 00:00 03/16/19 05:25 Glucose (Fingerstick) 152 mg/dL (70-99) 151 mg/dL (70-99) 156 mg/dL (70-99) White Blood Count 8.3 x10^3/uL (4.0-11.0) Red Blood Count 3.87 x10^6/uL (4.30-5.70) Hemoglobin 11.8 g/dL (13.0-17.5) Hematocrit 36.6 % (39.0-53.0) Mean Corpuscular Volume 95 fL (79-100) Mean Corpuscular Hemoglobin 31 pg (25-35) Mean Corpuscular Hemoglobin Concent 32 g/dL (31-37) Red Cell Distribution Width 15.2 % (11.5-14.5) Platelet Count 590 x10^3/uL (140-400) Neutrophils (%) (Auto) 78 % (31-73) Lymphocytes (%) (Auto) 9 % (24-48) Monocytes (%) (Auto) 5 % (0-9) Eosinophils (%) (Auto) 6 % (0-3) Basophils (%) (Auto) 1 % (0-3) Neutrophils # (Auto) 6.5 x10^3uL (1.8-7.7) Lymphocytes # (Auto) 0.8 x10^3/uL (1.0-4.8) Monocytes # (Auto) 0.4 x10^3/uL (0.0-1.1) Eosinophils # (Auto) 0.5 x10^3/uL (0.0-0.7) Basophils # (Auto) 0.1 x10^3/uL (0.0-0.2) Sodium Level 151 mmol/L (136-145) Potassium Level 4.7 mmol/L (3.5-5.1) Chloride Level 110 mmol/L (98-107) Carbon Dioxide Level 33 mmol/L (21-32) Anion Gap 8 (6-14) Blood Urea Nitrogen 73 mg/dL (8-26) Creatinine 1.8 mg/dL (0.7-1.3) Estimated GFR (Cockcroft-Gault) 39.2 Glucose Level 191 mg/dL (70-99) Calcium Level 9.2 mg/dL (8.5-10.1) Phosphorus Level 5.3 mg/dL (2.6-4.7) Magnesium Level 2.6 mg/dL (1.8-2.4) Albumin 1.8 g/dL (3.4-5.0) Test 03/16/19 05:26 03/16/19 09:15 03/16/19 11:51 03/16/19 18:41 Glucose (Fingerstick) 186 mg/dL (70-99) 287 mg/dL (70-99) 339 mg/dL (70-99) O2 Saturation 94 % (92-99) Arterial Blood pH 7.41 (7.35-7.45) Arterial Blood pCO2 at Patient Temp 52 mmHg (35-46) Arterial Blood pO2 at Patient Temp 73 mmHg (75-108) Arterial Blood HCO3 32 mmol/L (21-28) Arterial Blood Base Excess 6 mmol/L (-3-3) FiO2 100 Test 03/16/19 20:43 03/17/19 00:26 03/17/19 05:15 03/17/19 05:18 Glucose (Fingerstick) 316 mg/dL (70-99) 318 mg/dL (70-99) 333 mg/dL (70-99) Sodium Level 149 mmol/L (136-145) Potassium Level 4.9 mmol/L (3.5-5.1) Chloride Level 109 mmol/L (98-107) Carbon Dioxide Level 33 mmol/L (21-32) Anion Gap 7 (6-14) Blood Urea Nitrogen 82 mg/dL (8-26) Creatinine 1.9 mg/dL (0.7-1.3) Estimated GFR (Cockcroft-Gault) 36.9 Glucose Level 350 mg/dL (70-99) Calcium Level 8.8 mg/dL (8.5-10.1) Phosphorus Level 4.7 mg/dL (2.6-4.7) Albumin 1.8 g/dL (3.4-5.0) Test 03/17/19 08:00 03/17/19 08:29 O2 Saturation 97 % (92-99) Arterial Blood pH 7.44 (7.35-7.45) Arterial Blood pCO2 at Patient Temp 52 mmHg (35-46) Arterial Blood pO2 at Patient Temp 99 mmHg (75-108) Arterial Blood HCO3 34 mmol/L (21-28) Arterial Blood Base Excess 8 mmol/L (-3-3) FiO2 100 Glucose (Fingerstick) 321 mg/dL (70-99) Laboratory Tests Test 03/16/19 11:51 03/16/19 18:41 03/16/19 20:43 03/17/19 00:26 Glucose (Fingerstick) 287 mg/dL (70-99) 339 mg/dL (70-99) 316 mg/dL (70-99) 318 mg/dL (70-99) Test 03/17/19 05:15 03/17/19 05:18 03/17/19 08:00 03/17/19 08:29 Sodium Level 149 mmol/L (136-145) Potassium Level 4.9 mmol/L (3.5-5.1) Chloride Level 109 mmol/L (98-107) Carbon Dioxide Level 33 mmol/L (21-32) Anion Gap 7 (6-14) Blood Urea Nitrogen 82 mg/dL (8-26) Creatinine 1.9 mg/dL (0.7-1.3) Estimated GFR (Cockcroft-Gault) 36.9 Glucose Level 350 mg/dL (70-99) Calcium Level 8.8 mg/dL (8.5-10.1) Phosphorus Level 4.7 mg/dL (2.6-4.7) Albumin 1.8 g/dL (3.4-5.0) Glucose (Fingerstick) 333 mg/dL (70-99) 321 mg/dL (70-99) O2 Saturation 97 % (92-99) Arterial Blood pH 7.44 (7.35-7.45) Arterial Blood pCO2 at Patient Temp 52 mmHg (35-46) Arterial Blood pO2 at Patient Temp 99 mmHg (75-108) Arterial Blood HCO3 34 mmol/L (21-28) Arterial Blood Base Excess 8 mmol/L (-3-3) FiO2 100 Medications Active Scripts Medications Dose Route/Sig Max Daily Dose Days Date Category Proair Hfa Inhaler (Albuterol Sulfate) 8.5 Gm Hfa.aer.ad 1 Puff INH PRN Q6HRS PRN 02/27/19 Reported Lantus Solostar (Insulin Glargine,Hum.rec.anlog) 100 Unit/1 Ml Insuln.pen 20 Unit SQ QHS 02/27/19 Reported Humalog (Insulin Lispro) 100 Unit/1 Ml Cartridge 6 Unit SQ TIDWMEALS 02/27/19 Reported Doxazosin Mesylate 2 Mg Tablet 2 Mg PO DAILY 02/27/19 Reported Omeprazole 40 Mg Capsule.dr 40 Mg PO DAILY 02/27/19 Reported Amlodipine Besylate 10 Mg Tablet 10 Mg PO DAILY 02/27/19 Reported Atorvastatin Calcium 20 Mg Tablet 20 Mg PO DAILY 02/27/19 Reported Atenolol 50 Mg Tablet 50 Mg PO DAILY 02/27/19 Reported Losartan Potassium 100 Mg Tablet 100 Mg PO DAILY 02/27/19 Reported Aspirin 81 Mg Tab.chew 81 Mg PO DAILY 02/27/19 Reported Glyburide 5 Mg Tablet 1 Tab PO BID 11/09/16 Reported Comments CXR REVIEWED 03/17 improved aeration left lung Impression . 1. Acute hypoxemic /hypercapnic respiratory failure./ ARDS 2. sepsis./ ARDS 3. In-house cardiopulmonary arrest. 4. Normal EF / mild Pulmonary HTN 5. Acute on chronic right-sided heart failure. 6. Possible pneumonia. 7. Morbid obesity. 8. Diabetes. 9. ANASARCA 10. Abnormal CXR 11. Increasing azotemia <Conclusion>ECHO The left ventricular systolic function is normal. The ejection fraction is 60-65%. There is normal LV segmental wall motion. Transmitral Doppler flow pattern is Grade I-abnormal relaxation pattern. Trace tricuspid regurgitation. Estimated PAP 33-38 mmHg. There is no evidence of significant pericardial effusion. VENOUS 02/28 Impression: 1. There is no evidence of deep venous thrombosis from the bilateral common femoral to popliteal veins. 2. There is nonspecific right groin lymph node. Plan . AC MODE ,16 PEEP [id number]% FI02, cont vent support, setting reviewed, Wean FIO2 today CXR showing improvement ANITBX PER ID Reduce lasix dose , monitor k, cr bilateral venous Dopplers of lower extremities.NEG DVT and GI prophylaxis. Follow Cardiology.rec Enteral nutrition am abg, cxr elevate hob discussed w rn, rt DNR Overall Prognosis extremely grim but starting to see mild improvement.. d/w sister. Daughter on the way from [place]. AELJANDRINA WILBURN MD Mar 17, 2019 10:57
--- NOTE | 2019-03-17 11:01 | PDOC ---
PROGRESS NOTES Chief Complaint Chief Complaint Acute respiratory failure secondary to congestive heart failure, most probably acute on chronic diastolic. s/p intubation. Myocardial infarction ruled out. Hypernatremia secondary to severe dehydration will need to provide water flushes in order to correct electrolyte disturbance. High residuals on tube feedings no evidence of obstructive pattern on x ray done 03/05/2019 3 weeks of bilateral general scrotal swelling and tenderness. +dyspnea, abd swelling, leg swelling. POA, Dm2 obesity, extreme, morbid hx RLE BKA RLE stump with chronic wound. No erythema/warmth left foot nail onychomycosis needs attention when more clinically stable Acute renal failure ATN Renal CONSULT 3.1-1.8 chronic venous insuff left lower leg nonspecific perinephric stranding with slight asymmetric stranding adjacent to the left renal pelvis. Findings may be due to chronic kidney disease, though ascending urinary tract infection is not excluded. Bilateral lower lobe consolidation concerning for multifocal pneumonia aspiration not excluded. Right renal hypodensity measuring 2.5 cm is incompletely evaluated on noncontrast examination. Follow-up MRI or CT abdomen and pelvis renal protocol with contrast is recommended for further evaluation. Anasarca. bilateral external iliac lymphadenopathy, may be reactive, though follow-up CT abdomen and pelvis in 3 months is recommended to assess for stability/resolution. Nonobstructive left nephrolithiasis. Coronary artery calcifications. The left ventricular systolic function is normal.ejection fraction is 60-65% .normal LV segmental wall motion. Transmitral Doppler flow pattern is Grade I-abnormal relaxation pattern. Trace tricuspid regurgitation. Estimated PAP 33-38 mmHg. History of Present Illness History of Present Illness Continue with supportive measures ventilatory support - on 100% oxygen and 16 of PEEP, poor prognosis, Dr Vinson will address on Saturday if patient does not have improvement, he has been on support for over 10 days now paO2 99 on PEEP 16 and 100% FiO2, better than yesterday, has UOP as well. follow recommendations from enrollment consultant. UROLOGY CONSULT reviewed no intervention needed except for elevation and diuresis ID CONSULT continue with antibiotic as per ID Cont ARDS treatment. Is better than yesterday, but only incrementally so. his daughter is coming from [place] soon Vitals Vitals Vital Signs Date Time Temp Pulse Resp B/P (MAP) Pulse Ox O2 Delivery O2 Flow Rate FiO2 03/17/19 10:47 96 4/16/19 10:01 96.0 03/17/19 10:00 72 27 117/62 (80) Ventilator 03/17/19 08:00 98.4 98.4 Physical Exam Physical Exam GENERAL: Sedated and intubated. HEENT: PERRL, ETT. OGT NECK: Supple. LUNGS: Decreased in bases HEART: S1, S2. 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 RLE stump with chronic wound. No erythema/ fluctuance/warmth. no cyanosis SKIN: Warm to touch. 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 groin - fading WING COVERER: Sedated on vent RUE-PICC (03/09) clean General: Other (intubated.) Heart: Regular rate Lungs: Other (decrease bs) Abdomen: Normal bowel sounds Extremities: No cyanosis, Other (ANASARCA) Skin: Other (scale, lower leg ) Labs LABS Laboratory Tests Test 03/16/19 11:51 03/16/19 18:41 03/16/19 20:43 03/17/19 00:26 Glucose (Fingerstick) 287 mg/dL (70-99) 339 mg/dL (70-99) 316 mg/dL (70-99) 318 mg/dL (70-99) Test 03/17/19 05:15 03/17/19 05:18 03/17/19 08:00 03/17/19 08:29 Sodium Level 149 mmol/L (136-145) Potassium Level 4.9 mmol/L (3.5-5.1) Chloride Level 109 mmol/L (98-107) Carbon Dioxide Level 33 mmol/L (21-32) Anion Gap 7 (6-14) Blood Urea Nitrogen 82 mg/dL (8-26) Creatinine 1.9 mg/dL (0.7-1.3) Estimated GFR (Cockcroft-Gault) 36.9 Glucose Level 350 mg/dL (70-99) Calcium Level 8.8 mg/dL (8.5-10.1) Phosphorus Level 4.7 mg/dL (2.6-4.7) Albumin 1.8 g/dL (3.4-5.0) Glucose (Fingerstick) 333 mg/dL (70-99) 321 mg/dL (70-99) O2 Saturation 97 % (92-99) Arterial Blood pH 7.44 (7.35-7.45) Arterial Blood pCO2 at Patient Temp 52 mmHg (35-46) Arterial Blood pO2 at Patient Temp 99 mmHg (75-108) Arterial Blood HCO3 34 mmol/L (21-28) Arterial Blood Base Excess 8 mmol/L (-3-3) FiO2 100 Assessment and Plan Assessmemt and Plan Problems Medical Problems: (1) Acute renal failure Status: Acute (2) Edema Status: Acute (3) Shortness of breath Status: Acute Comment Review of Relevant I have reviewed the following items pascual (where applicable) has been applied. Labs Laboratory Tests Test 03/15/19 11:42 03/15/19 17:42 03/16/19 00:00 03/16/19 05:25 Glucose (Fingerstick) 152 mg/dL (70-99) 151 mg/dL (70-99) 156 mg/dL (70-99) White Blood Count 8.3 x10^3/uL (4.0-11.0) Red Blood Count 3.87 x10^6/uL (4.30-5.70) Hemoglobin 11.8 g/dL (13.0-17.5) Hematocrit 36.6 % (39.0-53.0) Mean Corpuscular Volume 95 fL (79-100) Mean Corpuscular Hemoglobin 31 pg (25-35) Mean Corpuscular Hemoglobin Concent 32 g/dL (31-37) Red Cell Distribution Width 15.2 % (11.5-14.5) Platelet Count 590 x10^3/uL (140-400) Neutrophils (%) (Auto) 78 % (31-73) Lymphocytes (%) (Auto) 9 % (24-48) Monocytes (%) (Auto) 5 % (0-9) Eosinophils (%) (Auto) 6 % (0-3) Basophils (%) (Auto) 1 % (0-3) Neutrophils # (Auto) 6.5 x10^3uL (1.8-7.7) Lymphocytes # (Auto) 0.8 x10^3/uL (1.0-4.8) Monocytes # (Auto) 0.4 x10^3/uL (0.0-1.1) Eosinophils # (Auto) 0.5 x10^3/uL (0.0-0.7) Basophils # (Auto) 0.1 x10^3/uL (0.0-0.2) Sodium Level 151 mmol/L (136-145) Potassium Level 4.7 mmol/L (3.5-5.1) Chloride Level 110 mmol/L (98-107) Carbon Dioxide Level 33 mmol/L (21-32) Anion Gap 8 (6-14) Blood Urea Nitrogen 73 mg/dL (8-26) Creatinine 1.8 mg/dL (0.7-1.3) Estimated GFR (Cockcroft-Gault) 39.2 Glucose Level 191 mg/dL (70-99) Calcium Level 9.2 mg/dL (8.5-10.1) Phosphorus Level 5.3 mg/dL (2.6-4.7) Magnesium Level 2.6 mg/dL (1.8-2.4) Albumin 1.8 g/dL (3.4-5.0) Test 03/16/19 05:26 03/16/19 09:15 03/16/19 11:51 03/16/19 18:41 Glucose (Fingerstick) 186 mg/dL (70-99) 287 mg/dL (70-99) 339 mg/dL (70-99) O2 Saturation 94 % (92-99) Arterial Blood pH 7.41 (7.35-7.45) Arterial Blood pCO2 at Patient Temp 52 mmHg (35-46) Arterial Blood pO2 at Patient Temp 73 mmHg (75-108) Arterial Blood HCO3 32 mmol/L (21-28) Arterial Blood Base Excess 6 mmol/L (-3-3) FiO2 100 Test 03/16/19 20:43 03/17/19 00:26 03/17/19 05:15 03/17/19 05:18 Glucose (Fingerstick) 316 mg/dL (70-99) 318 mg/dL (70-99) 333 mg/dL (70-99) Sodium Level 149 mmol/L (136-145) Potassium Level 4.9 mmol/L (3.5-5.1) Chloride Level 109 mmol/L (98-107) Carbon Dioxide Level 33 mmol/L (21-32) Anion Gap 7 (6-14) Blood Urea Nitrogen 82 mg/dL (8-26) Creatinine 1.9 mg/dL (0.7-1.3) Estimated GFR (Cockcroft-Gault) 36.9 Glucose Level 350 mg/dL (70-99) Calcium Level 8.8 mg/dL (8.5-10.1) Phosphorus Level 4.7 mg/dL (2.6-4.7) Albumin 1.8 g/dL (3.4-5.0) Test 03/17/19 08:00 03/17/19 08:29 O2 Saturation 97 % (92-99) Arterial Blood pH 7.44 (7.35-7.45) Arterial Blood pCO2 at Patient Temp 52 mmHg (35-46) Arterial Blood pO2 at Patient Temp 99 mmHg (75-108) Arterial Blood HCO3 34 mmol/L (21-28) Arterial Blood Base Excess 8 mmol/L (-3-3) FiO2 100 Glucose (Fingerstick) 321 mg/dL (70-99) Laboratory Tests Test 03/16/19 11:51 03/16/19 18:41 03/16/19 20:43 03/17/19 00:26 Glucose (Fingerstick) 287 mg/dL (70-99) 339 mg/dL (70-99) 316 mg/dL (70-99) 318 mg/dL (70-99) Test 03/17/19 05:15 03/17/19 05:18 03/17/19 08:00 03/17/19 08:29 Sodium Level 149 mmol/L (136-145) Potassium Level 4.9 mmol/L (3.5-5.1) Chloride Level 109 mmol/L (98-107) Carbon Dioxide Level 33 mmol/L (21-32) Anion Gap 7 (6-14) Blood Urea Nitrogen 82 mg/dL (8-26) Creatinine 1.9 mg/dL (0.7-1.3) Estimated GFR (Cockcroft-Gault) 36.9 Glucose Level 350 mg/dL (70-99) Calcium Level 8.8 mg/dL (8.5-10.1) Phosphorus Level 4.7 mg/dL (2.6-4.7) Albumin 1.8 g/dL (3.4-5.0) Glucose (Fingerstick) 333 mg/dL (70-99) 321 mg/dL (70-99) O2 Saturation 97 % (92-99) Arterial Blood pH 7.44 (7.35-7.45) Arterial Blood pCO2 at Patient Temp 52 mmHg (35-46) Arterial Blood pO2 at Patient Temp 99 mmHg (75-108) Arterial Blood HCO3 34 mmol/L (21-28) Arterial Blood Base Excess 8 mmol/L (-3-3) FiO2 100 Microbiology 03/05/19 Blood Culture - Final, Complete NO GROWTH AFTER 5 DAYS 03/08/19 - Final, Complete 03/08/19 - Final, Complete 03/08/19 - Final, Complete 03/08/19 Gram Stain Evaluation - Final, Complete 03/08/19 Sputum Culture - Final, Complete 03/08/19 Sputum Result 1 - Final, Complete 03/02/19 Urine Culture - Final, Complete 03/02/19 Urine Culture Result 1 (LUCIO) - Final, Complete 03/09/19 Aerobic Culture - Final, Complete 03/09/19 Aerobic Culture Result 1 (LUCIO) - Final, Complete 03/09/19 Gram Stain - Final, Complete 03/09/19 Gram Stain Result 1 (LUCIO) - Final, Complete 03/09/19 Gram Stain Result 2 (LUCIO) - Final, Complete Medications Current Medications Ondansetron HCl (Zofran) 4 mg PRN Q8HRS PRN IV NAUSEA/VOMITING; Start 02/27/19 at 16:45; Stop 02/28/19 at 16:44; Status DC Morphine Sulfate (Morphine Sulfate) 2 mg PRN Q2HR PRN IV PAIN; Start 02/27/19 at 16:45; Stop 02/28/19 at 16:44; Status DC Acetaminophen (Tylenol) 650 mg PRN Q4HRS PRN PO FEVER Last administered on 02/27at 21:06; Start 02/27/19 at 16:45; Stop 02/28/19 at 16:44; Status DC Dextrose (Dextrose 50%-Water Syringe) 12.5 gm PRN Q15MIN PRN IV SEE COMMENTS; Start 02/27/19 at 16:45; Stop 03/10/19 at 13:48; Status DC Heparin Sodium (Porcine) (Heparin Sodium) 5,000 unit Q8HRS SQ Last administered on 03/17/19at 05:51; Start 02/27/19 at 17:00 Lorazepam (Ativan) 1 mg PRN Q8HRS PRN IV ANXIETY / AGITATION Last administered on 03/08/19at 03:37; Start 02/28/19 at 02:45 Etomidate (Amidate) 20 mg STK-MED ONCE IV ; Start 02/28/19 at 06:59; Stop at 07:00; Status DC Rocuronium Canjilon (Zemuron) 50 mg STK-MED ONCE .ROUTE ; Start 02/28/19 at 07:00 ; Stop 02/28/19 at 09:42; Status DC Dopamine HCl/ Dextrose 250 ml @ 12.266 mls/ hr CONT PRN IV SEE I/O RECORD Last administered on 02/28/19at 08:06; Start 02/28/19 at 07:15 Fentanyl Citrate 30 ml @ 0 mls/hr CONT PRN IV SEE PROTOCOL; Start 02/28/19 at 07:15; Stop 02/28/19 at 07:59; Status DC Propofol 100 ml @ 0 mls/hr CONT PRN IV SEE PROTOCOL; Start 02/28/19 at 07:15; Stop 02/28/19 at 07:59; Status DC Fentanyl Citrate (Fentanyl 2ml Vial) 25 mcg PRN Q1HR PRN IV SEE COMMENTS; Start 02/28/19 at 07:15; Stop 02/28/19 at 07:59; Status DC Fentanyl Citrate (Fentanyl 2ml Vial) 50 mcg PRN Q1HR PRN IV SEE COMMENTS; Start 02/28/19 at 07:15; Stop 02/28/19 at 07:59; Status DC Midazolam HCl 100 ml @ 0 mls/hr CONT PRN IV SEE PROTOCOL Last administered on at 23:52; Start 02/28/19 at 07:15 Sodium Chloride 1,000 ml @ 1,000 mls/hr Q1H IV Last administered on 02/28/19at 07:32; Start 02/28/19 at 07:32; Stop 02/28/19 at 10:09; Status DC Fentanyl Citrate (Fentanyl 2ml Vial) 25 mcg PRN Q30MIN PRN IV see comments; Start 02/28/19 at 07:45; Stop 02/28/19 at 09:42; Status DC Lorazepam (Ativan) 1 mg PRN Q30MIN PRN IV SEDATION; Start 02/28/19 at 07:45; Stop 02/28/19 at 09:42; Status DC Fentanyl Citrate 30 ml @ 2.5 mls/hr CONT PRN PRN IV SEE I/O RECORD Last administered on 03/05/19at 03:44; Start 02/28/19 at 07:45; Stop 03/05/19 at 04:40; Status DC Propofol 100 ml @ 0 mls/hr CONT PRN IV SEE I/O RECORD Last administered on 03/17at 07:24; Start 02/28/19 at 07:45 Vecuronium Canjilon (Norcuron Bolus) 10 mg PRN Q30MIN PRN IV SHIVERING; Start at 07:45; Stop 02/28/19 at 09:42; Status DC Meperidine HCl (Demerol) 12.5 mg PRN Q30MIN PRN IV SHIVERING; Start 02/28/19 at 07:45; Stop 02/28/19 at 09:42; Status DC Multi-Ingred Cream/Lotion/Oil/ Oint (Artificial Tears Eye Ointment) 1 jennifer PRN Q6HRS PRN OU 0.5 INCH FOR DRY EYE; Start 02/28/19 at 07:45; Stop 02/28/19 at 09 :42; Status DC Famotidine (Pepcid Vial) 20 mg BID IVP Last administered on 02/28/19at 11:03; Start 02/28/19 at 09:00; Stop 02/28/19 at 14:25; Status DC Aspirin (Aspirin) 300 mg DAILY [place] ; Start 02/28/19 at 09:00; Stop 02/28/19 at 09 :42; Status DC Sodium Chloride (Normal Saline Flush) 3 ml QSHIFT PRN IV AFTER MEDS AND BLOOD DRAWS; Start 02/28/19 at 07:45 Acetaminophen (Tylenol) 650 mg Q6HRS NG ; Start 02/28/19 at 12:00; Stop at 12:00; Status DC Acetaminophen (Tylenol Supp) 650 mg PRN Q6HRS PRN [place] MILD PAIN / TEMP; Start at 07:45; Stop 03/01/19 at 07:45; Status DC Acetaminophen (Tylenol) 650 mg PRN Q6HRS PRN NG MILD PAIN / TEMP; Start at 07:45; Stop 03/01/19 at 07:45; Status DC Info (Icu Electrolyte Protocol) 1 ea DAILY PRN MC PER PROTOCOL; Start 03/02/19 at 07:45; Stop 03/02/19 at 07:45; Status DC Furosemide (Lasix) 60 mg 1X ONCE IVP Last administered on 02/28/19at 08:30; Start 02/28/19 at 08:30; Stop 02/28/19 at 08:31; Status DC Ceftriaxone Sodium (Rocephin) 1 gm Q24H IVP Last administered on 02/28/19at 11: 03; Start 02/28/19 at 11:00; Stop 02/28/19 at 11:18; Status DC Calcium Chloride 1000 mg/Dextrose 60 ml @ 120 mls/hr 1X ONCE IV Last administered on 02/28/19at 11:03; Start 02/28/19 at 10:30; Stop 02/28/19 at 10:59 ; Status DC Meropenem 500 mg/ Sodium Chloride 50 ml @ 100 mls/hr Q8HRS IV Last administered on 03/03/19at 06:24; Start 02/28/19 at 14:00; Stop 03/03/19 at 07:04; Status DC Linezolid/Dextrose 300 ml @ 300 mls/hr Q12HR IV Last administered on 03/03/19at 20:00; Start 02/28/19 at 11:30; Stop 03/04/19 at 08:55; Status DC Micafungin Sodium 100 mg/Dextrose 100 ml @ 100 mls/hr Q24H IV Last administered on 03/04/19at 15:53; Start 02/28/19 at 12:00; Stop 03/05/19 at 06:47; Status DC Furosemide (Lasix) 40 mg BID92 IVP Last administered on 03/02/19at 14:06; Start 02/28/19 at 14:00; Stop 03/02/19 at 17:02; Status DC Famotidine (Pepcid Vial) 20 mg QHS IVP Last administered on 03/01/19at 21:24; Start 02/28/19 at 21:00; Stop 03/02/19 at 10:07; Status DC Albuterol/ Ipratropium (Duoneb) 3 ml RTQID NEB Last administered on 03/17/19 08:12; Start 02/28/19 at 16:00 Haloperidol Lactate (Haldol Inj) 5 mg PRN Q6HRS PRN IVP AGITATION 2ND CHOICE Last administered on 03/09/19 14:07; Start 02/28/19 at 15:15 Vecuronium Canjilon (Norcuron Bolus) 8 mg PRN Q4HRS PRN IV MUSCLE SPASMS Last administered on 03/12/19at 23:48; Start 02/28/19 at 15:15 Perflutren Protein Type A Microsphe (Optison) 0.66 mg PRN 1X PRN IV SEE COMMENTS; Start 03/01/19 at 10:00; Stop 03/02/19 at 09:59; Status DC Digoxin (Lanoxin) 125 mcg 1X STAT IV ; Start 03/01/19 at 15:34; Stop 03/01/19 at 16:00; Status DC Sodium Chloride 500 ml @ 500 mls/hr 1X ONCE IV Last administered on at 18:46; Start 03/01/19 at 18:45; Stop 03/01/19 at 19:44; Status DC Famotidine (Pepcid Vial) 20 mg Q12HR IVP Last administered on 03/17/19 08:18; Start 03/02/19 at 21:00 Furosemide (Lasix) 40 mg DAILY IVP Last administered on 03/04/19 09:52; Start 03/03/19 at 09:00; Stop 03/04/19 at 12:13; Status DC Acetaminophen (Tylenol Supp) 650 mg PRN Q6HRS PRN [place] MILD PAIN / TEMP Last administered on 03/03/19 17:39; Start 03/02/19 at 17:15 Meropenem 500 mg/ Sodium Chloride 50 ml @ 100 mls/hr Q6HRS IV Last administered on 03/05/19 05:33; Start 03/03/19 at 12:00; Stop 03/05/19 at 06:47; Status DC Albumin Human 100 ml @ 100 mls/hr 1X ONCE IV Last administered on 03/03/19 08 :52; Start 03/03/19 at 08:30; Stop 03/03/19 at 09:29; Status DC Atropine Sulfate (ATROPINE 0.5mg SYRINGE) 2 mg STK-MED ONCE .ROUTE ; Start 02/27 at 16:21; Stop 03/03/19 at 16:22; Status DC Dopamine HCl/ Dextrose (DOPamine 400MG/ 250ML PREMIX) 400 mg STK-MED ONCE IV ; Start 02/27/19 at 16:21; Stop 03/03/19 at 16:22; Status DC Furosemide (Lasix) 40 mg 1X ONCE IVP Last administered on 03/03/19at 18:46; Start 03/03/19 at 18:45; Stop 03/03/19 at 18:46; Status DC Lorazepam 100 mg/ Sodium Chloride 100 ml @ 0 mls/hr CONT PRN IV SEE PROTOCOL Last administered on 03/03/19at 22:18; Start 03/03/19 at 22:00 Acetaminophen (Tylenol) 650 mg PRN Q6HRS PRN PEG MILD PAIN / TEMP Last administered on 03/10/19at 20:48; Start 03/04/19 at 11:45 Furosemide (Lasix) 40 mg BID92 IVP Last administered on 03/06/19at 08:38; Start 03/04/19 at 14:00; Stop 03/06/19 at 13:30; Status DC Fentanyl Citrate 30 ml @ 0 mls/hr CONT PRN IV SEE PROTOCOL Last administered on 03/17/19at 10:01; Start 03/05/19 at 04:45 Cefepime HCl (Maxipime) 2 gm Q8HRS IVP Last administered on 03/10/19at 05:43; Start 03/05/19 at 06:45; Stop 03/10/19 at 08:29; Status DC Metronidazole 100 ml @ 100 mls/hr Q8HRS IV Last administered on 03/10/19 05:45 ; Start 03/05/19 at 06:45; Stop 03/10/19 at 08:29; Status DC Linezolid/Dextrose 300 ml @ 300 mls/hr Q12HR IV Last administered on 03/05/19 21:24; Start 03/05/19 at 09:00; Stop 03/06/19 at 06:42; Status DC Metoclopramide HCl (Reglan Vial) 10 mg QIDACHS IV Last administered on 20:43; Start 03/05/19 at 11:30; Stop 03/07/19 at 07:37; Status DC Insulin Glargine (Lantus) 12 units BID SQ Last administered on 03/09/19 09:29; Start 03/05/19 at 09:00; Stop 03/09/19 at 17:11; Status DC Digoxin (Lanoxin) 500 mcg 1X ONCE IV Last administered on 03/06/19at 00:48; Start 03/06/19 at 00:45; Stop 03/06/19 at 00:46; Status DC Metoprolol Tartrate (Lopressor Vial) 5 mg 1X ONCE IVP Last administered on 03/06 00:53; Start 03/06/19 at 00:45; Stop 03/06/19 at 00:46; Status DC Sodium Chloride 500 ml @ 500 mls/hr 1X ONCE IV Last administered on 03/06/19 00:49; Start 03/06/19 at 00:45; Stop 03/06/19 at 01:44; Status DC Nystatin (Mycostatin) 1 jennifer BID TP Last administered on 03/17/19at 09:50; Start 03/06/19 at 09:00 Sodium Cl/Sod Bicarb/Potass Cl/ PEG (Golytely) 2,000 ml 1X ONCE PO Last administered on 03/06/19 09:33; Start 03/06/19 at 08:00; Stop 03/06/19 at 08:01; Status DC Furosemide (Lasix) 40 mg DAILY08 IVP Last administered on 03/09/19 09:27; Start 03/07/19 at 08:00; Stop 03/09/19 at 12:45; Status DC Metoprolol Tartrate (Lopressor Vial) 10 mg 1X ONCE IVP Last administered on 16:08; Start 03/06/19 at 15:15; Stop 03/06/19 at 15:16; Status DC Metoprolol Tartrate (Lopressor Vial) 5 mg Q6HRS IVP Last administered on 17:03; Start 03/06/19 at 18:00; Stop 03/07/19 at 18:27; Status DC Aspirin (Children'S Aspirin) 81 mg 1X ONCE PO Last administered on 03/06/19at 18 :18; Start 03/06/19 at 17:00; Stop 03/06/19 at 17:01; Status DC Aspirin (Children'S Aspirin) 81 mg DAILYWBKFT PO Last administered on at 08:18; Start 03/07/19 at 08:00 Labetalol HCl (Normodyne Iv Push) 20 mg PRN Q2HR PRN IVP HYPERTENSION, SEE COMMENTS Last administered on 03/06/19at 21:29; Start 03/06/19 at 17:15 Digoxin (Lanoxin) 250 mcg 1X ONCE IV Last administered on 03/06/19at 22:00; Start 03/06/19 at 22:00; Stop 03/06/19 at 22:01; Status DC Diltiazem HCl 125 mg/Dextrose 125 ml @ 5 mls/hr CONT PRN IV SEE I/O RECORD Last administered on 03/12/19at 08:20; Start 03/06/19 at 23:00; Stop 03/12/19 at 11:03; Status DC Metoclopramide HCl (Reglan Vial) 10 mg Q6HRS IV ; Start 03/07/19 at 08:00; Stop 03/08/19 at 07:51; Status DC Metoprolol Tartrate (Lopressor Vial) 5 mg Q6HRS IVP Last administered on at 05:49; Start 03/08/19 at 12:00 Furosemide (Lasix) 40 mg 1X ONCE IVP Last administered on 03/08/19at 21:21; Start 03/08/19 at 21:00; Stop 03/08/19 at 21:01; Status DC Furosemide (Lasix) 20 mg DAILY08 IVP ; Start 03/10/19 at 08:00; Stop 03/10/19 at 08:00; Status DC Furosemide (Lasix) 20 mg DAILY08 IVP Last administered on 03/14/19at 07:41; Start 03/10/19 at 08:00; Stop 03/15/19 at 07:32; Status DC Insulin Glargine (Lantus) 16 units BID SQ Last administered on 03/12/19at 00:09 ; Start 03/09/19 at 21:00; Stop 03/12/19 at 07:18; Status DC Insulin Human Lispro (HumaLOG) 0-9 UNITS Q6HRS SQ Last administered on at 05:45; Start 03/09/19 at 18:00; Stop 03/12/19 at 07:18; Status DC Dextrose (Dextrose 50%-Water Syringe) 12.5 gm PRN Q15MIN PRN IV SEE COMMENTS; Start 03/09/19 at 17:15 Cefepime HCl (Maxipime) 2 gm Q12HR IVP Last administered on 03/17/19at 10:33; Start 03/10/19 at 21:00 Insulin Human Lispro (HumaLOG) 15 units 1X ONCE SQ Last administered on at 00:14; Start 03/11/19 at 00:00; Stop 03/11/19 at 00:01; Status DC Insulin Glargine (Lantus) 20 units BID SQ Last administered on 03/17/19at 08:32 ; Start 03/12/19 at 09:00; Stop 03/17/19 at 10:46; Status DC Insulin Human Lispro (HumaLOG) 0-9 UNITS Q6HRS SQ Last administered on at 05:51; Start 03/12/19 at 12:00 Diltiazem HCl (Cardizem) 30 mg Q6HRS PO Last administered on 03/17/19at 05:49; Start 03/12/19 at 12:00 Furosemide (Lasix) 20 mg 1X ONCE IVP Last administered on 03/13/19at 11:04; Start 03/13/19 at 10:30; Stop 03/13/19 at 10:31; Status DC Furosemide (Lasix) 20 mg 1X ONCE IVP Last administered on 03/14/19at 07:40; Start 03/14/19 at 07:15; Stop 03/14/19 at 14:05; Status DC Furosemide (Lasix) 40 mg Q8HRS IVP Last administered on 03/17/19at 05:49; Start 03/14/19 at 22:00; Stop 03/17/19 at 10:58; Status DC Albuterol Sulfate (Ventolin Neb Soln) 2.5 mg 1X ONCE NEB Last administered on 03/16/19at 04:00; Start 03/16/19 at 04:00; Stop 03/16/19 at 04:01; Status DC Methylprednisolone Sodium Succinate (SOLU-Medrol 40MG VIAL) 80 mg 1X ONCE IV Last administered on 03/16/19at 04:17; Start 03/16/19 at 04:30; Stop 03/16/19 at 04:31; Status DC Furosemide (Lasix) 20 mg 1X ONCE IVP Last administered on 03/16/19at 04:17; Start 03/16/19 at 04:30; Stop 03/16/19 at 04:31; Status DC Insulin Glargine (Lantus) 25 units BID SQ ; Start 03/17/19 at 21:00 Insulin Human Lispro (HumaLOG) 10 units Q6HRS SQ ; Start 03/17/19 at 12:00 Furosemide (Lasix) 40 mg QD IVP ; Start 03/18/19 at 06:00; Status UNV Active Scripts Active Reported Proair Hfa Inhaler (Albuterol Sulfate) 8.5 Gm Hfa.aer.ad 1 Puff INH PRN Q6HRS PRN Lantus Solostar (Insulin Glargine,Hum.rec.anlog) 100 Unit/1 Ml Insuln.pen 20 Unit SQ QHS Humalog (Insulin Lispro) 100 Unit/1 Ml Cartridge 6 Unit SQ TIDWMEALS Doxazosin Mesylate 2 Mg Tablet 2 Mg PO DAILY Omeprazole 40 Mg Capsule.dr 40 Mg PO DAILY Amlodipine Besylate 10 Mg Tablet 10 Mg PO DAILY Atorvastatin Calcium 20 Mg Tablet 20 Mg PO DAILY Atenolol 50 Mg Tablet 50 Mg PO DAILY Losartan Potassium 100 Mg Tablet 100 Mg PO DAILY Aspirin 81 Mg Tab.chew 81 Mg PO DAILY Glyburide 5 Mg Tablet 1 Tab PO BID Vitals/I & O Vital Sign - Last 24 Hours 03/16/19 03/16/19 03/16/19 03/16/19 11:01 11:49 11:54 12:00 Pulse 72 71 Resp 22 B/P (MAP) 135/77 (96) 142/72 Pulse Ox 94 O2 Delivery Ventilator Ventilator Mechanical Ventilator 03/16/19 03/16/19 03/16/19 03/16/19 12:00 12:30 13:00 13:59 Temp 98.6 98.6 Pulse 72 76 75 Resp 22 22 B/P (MAP) 156/82 (106) 148/82 (104) 171/87 Pulse Ox 94 96 98 O2 Delivery Ventilator Ventilator Ventilator 03/16/19 03/16/19 03/16/19 03/16/19 14:00 15:00 16:00 16:00 Pulse 75 74 74 Resp 22 22 22 B/P (MAP) 171/87 (115) 160/80 (106) 160/80 (106) Pulse Ox 98 98 98 O2 Delivery Ventilator Ventilator Mechanical Ventilator Ventilator 03/16/19 03/16/19 03/16/19 03/16/19 16:10 16:54 17:00 17:24 Pulse 85 Resp 22 22 22 B/P (MAP) 177/64 (101) Pulse Ox 98 98 99 O2 Delivery Ventilator Ventilator O2 Flow Rate 96.0 03/16/19 03/16/19 03/16/19 03/16/19 18:00 18:42 18:43 19:00 Temp 99.2 99.2 Pulse 75 79 75 74 Resp 22 22 B/P (MAP) 154/72 (99) 155/73 154/72 155/73 (100) Pulse Ox 95 94 O2 Delivery Ventilator Ventilator 03/16/19 03/16/19 03/16/19 03/16/19 19:44 20:00 20:00 21:00 Temp 99.0 99.0 Pulse 76 76 Resp 22 22 B/P (MAP) 155/70 (98) 174/71 (105) Pulse Ox 94 96 95 O2 Delivery Ventilator Mechanical Ventilator Ventilator Ventilator 03/16/19 03/16/19 03/16/19 03/17/19 21:10 22:00 23:00 00:00 Pulse 74 80 71 Resp 22 22 B/P (MAP) 170/70 (103) 150/68 (95) 145/74 Pulse Ox 94 95 97 O2 Delivery Ventilator Ventilator Ventilator 03/17/19 03/17/19 03/17/19 03/17/19 00:00 00:00 00:00 00:15 Temp 98.5 98.5 Pulse 71 72 Resp 27 B/P (MAP) 145/74 140/71 (94) Pulse Ox 97 97 O2 Delivery Ventilator Mechanical Ventilator Ventilator 03/17/19 03/17/19 03/17/19 03/17/19 01:00 02:00 02:00 03:00 Pulse 68 68 67 Resp 23 28 22 B/P (MAP) 160/82 (108) 156/78 (104) 167/79 (108) Pulse Ox 96 97 93 94 O2 Delivery Ventilator Ventilator Ventilator Ventilator 03/17/19 03/17/19 03/17/19 03/17/19 04:00 04:00 05:00 05:15 Temp 98.7 98.7 Pulse 65 64 Resp 22 B/P (MAP) 157/69 (98) 140/65 (90) Pulse Ox 97 98 97 O2 Delivery Ventilator Mechanical Ventilator Ventilator Ventilator 03/17/19 03/17/19 03/17/19 03/17/19 05:49 05:49 06:00 07:00 Pulse 64 64 64 64 Resp 27 B/P (MAP) 160/72 160/72 160/65 (96) 172/77 (108) Pulse Ox 98 97 O2 Delivery Ventilator Ventilator 03/17/19 03/17/19 03/17/19 03/17/19 08:00 08:00 08:12 09:00 Temp 98.4 98.4 Pulse 66 74 B/P (MAP) 170/81 (110) 140/68 (92) Pulse Ox 98 98 98 O2 Delivery Mechanical Ventilator Ventilator Ventilator Ventilator 03/17/19 03/17/19 03/17/19 03/17/19 10:00 10:01 10:33 10:47 Pulse 72 Resp B/P (MAP) 117/62 (80) Pulse Ox 98 98 98 96 O2 Delivery Ventilator O2 Flow Rate 96.0 Intake and Output 03/16/19 03/16/19 03/17/19 15:00 23:00 07:00 Intake Total 1050 ml 2583 ml 1681 ml Output Total 1800 ml 1620 ml 1195 ml Balance -750 ml 963 ml 486 ml YRIS RUIZ MD Mar 17, 2019 11:01
[2019-03-17] MEDS ORDERED: INSULIN LISPRO 300 UNITS/3 ML INSULN.PEN. SQ SCH (12:00)
--- NOTE | 2019-03-17 12:09 | PDOC ---
SUBJECTIVE ROS Intubated OBJECTIVE Vital Signs Vital Signs Date Time Temp Pulse Resp B/P (MAP) Pulse Ox O2 Delivery O2 Flow Rate FiO2 03/17/19 10:47 96 03/17/19 10:01 96.0 03/17/19 10:00 72 27 117/62 (80) Ventilator 03/17/19 08:00 98.4 98.4 I & 0 Intake and Output 03/17/19 07:00 Intake Total 5314 ml Output Total 4615 ml Balance 699 ml IV Total 790 ml Tube Feeding 3774 ml Other 750 ml Output Urine Total 4615 ml Gastric Drainage Total 0 ml # Bowel Movements 3 PHYSICAL EXAM Physical Exam GENERAL: Sedated and intubated. HEENT: ETT. OGT NECK: Supple. LUNGS: CTA ant HEART: S1, S2. ABDOMEN: Distended with decreased bowel sounds GENITOURINARY: [place]urn +, + scrotal swelling EXTREMITIES: 1+ edema. RLE stump with chronic wound. SKIN: 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 groin DIAGNOSIS/ASSESSMENT Assessment & Plan LEONARD- Cr up to 2-2.3 down to 1.8-->1.9 stable E-Lytes and acid base Acute hypoxemic /hypercapnic respiratory failure./ ARDS Anasarca- Improved IV Lasix Increased over the weekend to Q 8 hrs Recommend decrease dose Hypernatremia - Corrected for Glucose is higher free water flushes , On Q 8 hrs Lasix over weekend, agree with decreasing dose to qd Right Renal mass Fever - ? Infection vs ileus vs drug reaction Acute respiratory failure, intubated, increased infiltrates today - ARDS Scrotal edema/cellulitis- Improved urology consulted In hospital CP arrest Dw RN COMMENT/RELEVANT DATA Meds Current Medications Medications (Trade) Dose Ordered Sig/Lula Start Time Stop Time Status Last Admin Dose Admin Acetaminophen (Tylenol Supp) 650 mg PRN Q6HRS PRN 03/02/19 17:15 03/03/19 17:39 650 MG Acetaminophen (Tylenol) 650 mg PRN Q6HRS PRN 03/04/19 11:45 03/10/19 20:48 650 MG Albumin Human 100 ml @ 100 mls/hr 1X ONCE 03/03/19 08:30 03/03/19 09:29 DC 03/03/19 08:52 100 MLS/HR Albuterol Sulfate (Ventolin Neb Soln) 2.5 mg 1X ONCE 03/16/19 04:00 03/16/19 04:01 DC 03/16/19 04:00 2.5 MG Albuterol/ Ipratropium (Duoneb) 3 ml RTQID 02/28/19 16:00 03/17/19 11:30 3 ML Aspirin (Aspirin) 300 mg DAILY 02/28/19 09:00 02/28/19 09:42 DC Aspirin (Children'S Aspirin) 81 mg DAILYWBKFT 03/07/19 08:00 03/17/19 08:18 81 MG Atropine Sulfate (ATROPINE 0.5mg SYRINGE) 2 mg STK-MED ONCE 02/27/19 16:21 03/03/19 16:22 DC Calcium Chloride 1000 mg/Dextrose 60 ml @ 120 mls/hr 1X ONCE 02/28/19 10:30 02/28/19 10:59 DC 02/28/19 11:03 120 MLS/HR Cefepime HCl (Maxipime) 2 gm Q12HR 03/10/19 21:00 03/17/19 10:33 2 GM Ceftriaxone Sodium (Rocephin) 1 gm Q24H 02/28/19 11:00 02/28/19 11:18 DC 02/28/19 11:03 1 GM Dextrose (Dextrose 50%-Water Syringe) 12.5 gm PRN Q15MIN PRN 03/09/19 17:15 Digoxin (Lanoxin) 250 mcg 1X ONCE 03/06/19 22:00 03/06/19 22:01 DC 03/06/19 22:00 250 MCG Diltiazem HCl (Cardizem) 30 mg Q6HRS 03/12/19 12:00 03/17/19 05:49 30 MG Diltiazem HCl 125 mg/Dextrose 125 ml @ 5 mls/hr CONT PRN 03/06/19 23:00 03/12/19 11:03 DC 03/12/19 08:20 5 MLS/HR Dopamine HCl/ Dextrose (DOPamine 400MG/ 250ML PREMIX) 400 mg STK-MED ONCE 02/27/19 16:21 03/03/19 16:22 DC Etomidate (Amidate) 20 mg STK-MED ONCE 02/28/19 06:59 02/28/19 07:00 DC Famotidine (Pepcid Vial) 20 mg Q12HR 03/02/19 21:00 03/17/19 08:18 20 MG Fentanyl Citrate 30 ml @ 0 mls/hr CONT PRN 03/05/19 04:45 03/17/19 10:01 4.95 MLS/HR Fentanyl Citrate (Fentanyl 2ml Vial) 25 mcg PRN Q30MIN PRN 02/28/19 07:45 02/28/19 09:42 DC Furosemide (Lasix) 40 mg QD 03/18/19 06:00 Haloperidol Lactate (Haldol Inj) 5 mg PRN Q6HRS PRN 02/28/19 15:15 03/09/19 14:07 5 MG Heparin Sodium (Porcine) (Heparin Sodium) 5,000 unit Q8HRS 02/27/19 17:00 03/17/19 05:51 5,000 UNIT Info (Icu Electrolyte Protocol) 1 ea DAILY PRN 03/02/19 07:45 03/02/19 07:45 DC Insulin Glargine (Lantus) 25 units BID 03/17/19 21:00 Insulin Human Lispro (HumaLOG) 10 units Q6HRS 03/17/19 12:00 Labetalol HCl (Normodyne Iv Push) 20 mg PRN Q2HR PRN 03/06/19 17:15 03/06/19 21:29 20 MG Linezolid/Dextrose 300 ml @ 300 mls/hr Q12HR 03/05/19 09:00 03/06/19 06:42 DC 03/05/19 21:24 300 MLS/HR Lorazepam (Ativan) 1 mg PRN Q30MIN PRN 02/28/19 07:45 02/28/19 09:42 DC Lorazepam 100 mg/ Sodium Chloride 100 ml @ 0 mls/hr CONT PRN 03/03/19 22:00 03/03/19 22:18 1 MLS/HR Meperidine HCl (Demerol) 12.5 mg PRN Q30MIN PRN 02/28/19 07:45 02/28/19 09:42 DC Meropenem 500 mg/ Sodium Chloride 50 ml @ 100 mls/hr Q6HRS 03/03/19 12:00 03/05/19 06:47 DC 03/05/19 05:33 100 MLS/HR Methylprednisolone Sodium Succinate (SOLU-Medrol 40MG VIAL) 80 mg 1X ONCE 03/16/19 04:30 03/16/19 04:31 DC 03/16/19 04:17 80 MG Metoclopramide HCl (Reglan Vial) 10 mg Q6HRS 03/07/19 08:00 03/08/19 07:51 DC Metoprolol Tartrate (Lopressor Vial) 5 mg Q6HRS 03/08/19 12:00 03/17/19 05:49 5 MG Metronidazole 100 ml @ 100 mls/hr Q8HRS 03/05/19 06:45 03/10/19 08:29 DC 03/10/19 05:45 100 MLS/HR Micafungin Sodium 100 mg/Dextrose 100 ml @ 100 mls/hr Q24H 02/28/19 12:00 03/05/19 06:47 DC 03/04/19 15:53 100 MLS/HR Midazolam HCl 100 ml @ 0 mls/hr CONT PRN 02/28/19 07:15 03/16/19 23:52 5 MLS/HR Morphine Sulfate (Morphine Sulfate) 2 mg PRN Q2HR PRN 02/27/19 16:45 02/28/19 16:44 DC Multi-Ingred Cream/Lotion/Oil/ Oint (Artificial Tears Eye Ointment) 1 jennifer PRN Q6HRS PRN 02/28/19 07:45 02/28/19 09:42 DC Nystatin (Mycostatin) 1 jennifer BID 03/06/19 09:00 03/17/19 09:50 1 JENNIFER Ondansetron HCl (Zofran) 4 mg PRN Q8HRS PRN 02/27/19 16:45 02/28/19 16:44 DC Perflutren Protein Type A Microsphe (Optison) 0.66 mg PRN 1X PRN 03/01/19 10:00 03/02/19 09:59 DC Propofol 100 ml @ 0 mls/hr CONT PRN 02/28/19 07:45 03/17/19 07:24 18.5 MLS/HR Rocuronium [place] (Zemuron) 50 mg STK-MED ONCE 02/28/19 07:00 02/28/19 09:42 DC Sodium Chloride 500 ml @ 500 mls/hr 1X ONCE 03/06/19 00:45 03/06/19 01:44 DC 03/06/19 00:49 500 MLS/HR Sodium Chloride (Normal Saline Flush) 3 ml QSHIFT PRN 02/28/19 07:45 Sodium Cl/Sod Bicarb/Potass Cl/ PEG (Golytely) 2,000 ml 1X ONCE 03/06/19 08:00 03/06/19 08:01 DC 03/06/19 09:33 2,000 ML Vecuronium [place] (Norcuron Bolus) 8 mg PRN Q4HRS PRN 02/28/19 15:15 03/12/19 23:48 8 MG Lab Laboratory Tests Test 03/16/19 18:41 03/16/19 20:43 03/17/19 00:26 03/17/19 05:15 Glucose (Fingerstick) 339 mg/dL (70-99) 316 mg/dL (70-99) 318 mg/dL (70-99) Sodium Level 149 mmol/L (136-145) Potassium Level 4.9 mmol/L (3.5-5.1) Chloride Level 109 mmol/L (98-107) Carbon Dioxide Level 33 mmol/L (21-32) Anion Gap 7 (6-14) Blood Urea Nitrogen 82 mg/dL (8-26) Creatinine 1.9 mg/dL (0.7-1.3) Estimated GFR (Cockcroft-Gault) 36.9 Glucose Level 350 mg/dL (70-99) Calcium Level 8.8 mg/dL (8.5-10.1) Phosphorus Level 4.7 mg/dL (2.6-4.7) Albumin 1.8 g/dL (3.4-5.0) Test 03/17/19 05:18 03/17/19 08:00 03/17/19 08:29 Glucose (Fingerstick) 333 mg/dL (70-99) 321 mg/dL (70-99) O2 Saturation 97 % (92-99) Arterial Blood pH 7.44 (7.35-7.45) Arterial Blood pCO2 at Patient Temp 52 mmHg (35-46) Arterial Blood pO2 at Patient Temp 99 mmHg (75-108) Arterial Blood HCO3 34 mmol/L (21-28) Arterial Blood Base Excess 8 mmol/L (-3-3) FiO2 100 Results All relevant outside records, renal labs, imaging studies, telemetry/EKG's were reviewed. GALO AMBRIZ MD Mar 17, 2019 12:09
--- NOTE | 2019-03-17 15:43 | NUR ---
SS following up with discharge planning. Pt continues on the vent and remains unstable. Dr. Boo awaiting pt's daughters arrival from [place] to determine further course of action for pt. Pt accepted at [facility] but insurance stating 21/06 rule prior to authorizing LTAC. SS will continue to follow for discharge planning.
--- NOTE | 2019-03-17 19:06 | NUR ---
Patient O2 sats staying in 100's, and ABG PO2 increased to 99. Orders to turn down FiO2 to 95%, patient desatted to 85% during air lift. FiO2 temporarily turned up to 100%, and titrated back down to 95% and SpO2 is currently at 97%. Still having large residuals. Patient had BM today. Patient has blanchable redness on coccyx, we are now only turning side to side. Still waiting on daughter to arrive from [place].
[2019-03-17] MEDS: MIDAZOLAM 100mg/100ml NS BAG 100 ML IV PRN (21:08)
[2019-03-18] VITALS (24 sets, daily range): BP systolic 92–178; BP diastolic 58–83
[2019-03-18] MEDS: METOPROLOL TARTRATE 5 MG/5 ML VIAL. IVP SCH ×6 (00:33→23:55)
[2019-03-18] MEDS: dilTIAZem HCL 30 MG TABLET PO SCH ×5 (00:33→23:56)
[2019-03-18] MEDS: INSULIN LISPRO 300 UNITS/3 ML INSULN.PEN. SQ SCH ×8 (00:34→17:27)
[2019-03-18] MEDS: PROPOFOL 100 ML IV PRN ×5 (04:53→23:54)
[2019-03-18] MEDS: HEPARIN for SUB-Q USE 5,000 UNIT/ML VIAL. SQ SCH ×3 (05:57→22:21)
[2019-03-18] MEDS ORDERED: FUROSEMIDE 40 MG/4 ML VIAL. IVP SCH ×2 (06:00→14:00)
[2019-03-18 06:08] LABS: CALCIUM 8.8 mg/dL (8.5-10.1); CREATININE 1.6 mg/dL (0.7-1.3); GFR 44.9; POTASSIUM 4.1 mmol/L (3.5-5.1)
[2019-03-18 06:25] LABS: BASO # 0.1 x10^3/uL (0.0-0.2); BASO % 1 % (0-3); EOS # 0.3 x10^3/uL (0.0-0.7); EOS % 3 % (0-3); HEMATOCRIT 35.1 % (39.0-53.0); HEMOGLOBIN 11.1 g/dL (13.0-17.5); LYMPH # 1.4 x10^3/uL (1.0-4.8); LYMPH % 15 % (24-48); MEAN CORPUSCULAR HEMOGLOBIN 30 pg (25-35); MEAN CORPUSCULAR HGB CONC 32 g/dL (31-37); MEAN CORPUSCULAR VOLUME 95 fL (79-100); MONO # 0.7 x10^3/uL (0.0-1.1); MONO % 8 % (0-9); NEUT # 6.5 x10^3uL (1.8-7.7); NEUT % 73 % (31-73); PLATELET COUNT 569 x10^3/uL (140-400); RED BLOOD COUNT 3.69 x10^6/uL (4.30-5.70); WHITE BLOOD COUNT 8.9 x10^3/uL (4.0-11.0)
[2019-03-18] MEDS ORDERED: ALTEPLASE 1MG SYRINGE. INT CAT ONE ×3 (07:30)
--- NOTE | 2019-03-18 07:30 | PDOC ---
Infectious Disease Note Subjective: Subjective Orally intubated and sedated, no fevers Vital Signs: Vital Signs Vital Signs Date Time Temp Pulse Resp B/P (MAP) Pulse Ox O2 Delivery O2 Flow Rate FiO2 03/18/19 07:12 94 Ventilator 96.0 03/18/19 06:00 66 22 126/66 (86) 03/18/19 04:00 98.5 98.5 Physical Exam: PHYSICAL EXAM GENERAL: Sedated and intubated. HEENT: PERRL, ETT. OGT NECK: Supple. LUNGS: Decreased in bases HEART: S1, S2. 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 RLE stump with chronic wound. No erythema/ fluctuance/warmth. no cyanosis SKIN: Warm to touch. 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 RUE-PICC (03/09) clean Medications: Inpatient Meds: Current Medications Medications (Trade) Dose Ordered Sig/Lula Start Time Stop Time Status Last Admin Dose Admin Acetaminophen (Tylenol Supp) 650 mg PRN Q6HRS PRN 03/02/19 17:15 03/03/19 17:39 650 MG Acetaminophen (Tylenol) 650 mg PRN Q6HRS PRN 03/04/19 11:45 03/10/19 20:48 650 MG Albumin Human 100 ml @ 100 mls/hr 1X ONCE 03/03/19 08:30 03/03/19 09:29 DC 03/03/19 08:52 100 MLS/HR Albuterol Sulfate (Ventolin Neb Soln) 2.5 mg 1X ONCE 03/16/19 04:00 03/16/19 04:01 DC 03/16/19 04:00 2.5 MG Albuterol/ Ipratropium (Duoneb) 3 ml RTQID 02/28/19 16:00 03/17/19 20:03 3 ML Alteplase, Recombinant (Cathflo For Central Catheter Clearance) 1 mg 1X ONCE 03/18/19 07:30 03/18/19 07:31 UNV Aspirin (Aspirin) 300 mg DAILY 02/28/19 09:00 02/28/19 09:42 DC Aspirin (Children'S Aspirin) 81 mg DAILYWBKFT 03/07/19 08:00 03/17/19 08:18 81 MG Atropine Sulfate (ATROPINE 0.5mg SYRINGE) 2 mg STK-MED ONCE 02/27/19 16:21 03/03/19 16:22 DC Azithromycin 250 mg/Sodium Chloride 250 ml @ 250 mls/hr Q24H 03/18/19 08:00 Calcium Chloride 1000 mg/Dextrose 60 ml @ 120 mls/hr 1X ONCE 02/28/19 10:30 02/28/19 10:59 DC 02/28/19 11:03 120 MLS/HR Cefepime HCl (Maxipime) 2 gm Q12HR 03/10/19 21:00 03/17/19 21:01 2 GM Ceftriaxone Sodium (Rocephin) 1 gm Q24H 02/28/19 11:00 02/28/19 11:18 DC 02/28/19 11:03 1 GM Dextrose (Dextrose 50%-Water Syringe) 12.5 gm PRN Q15MIN PRN 03/09/19 17:15 Digoxin (Lanoxin) 250 mcg 1X ONCE 03/06/19 22:00 03/06/19 22:01 DC 03/06/19 22:00 250 MCG Diltiazem HCl (Cardizem) 30 mg Q6HRS 03/12/19 12:00 03/18/19 05:55 30 MG Diltiazem HCl 125 mg/Dextrose 125 ml @ 5 mls/hr CONT PRN 03/06/19 23:00 03/12/19 11:03 DC 03/12/19 08:20 5 MLS/HR Dopamine HCl/ Dextrose (DOPamine 400MG/ 250ML PREMIX) 400 mg STK-MED ONCE 02/27/19 16:21 03/03/19 16:22 DC Etomidate (Amidate) 20 mg STK-MED ONCE 02/28/19 06:59 02/28/19 07:00 DC Famotidine (Pepcid Vial) 20 mg Q12HR 03/02/19 21:00 03/17/19 21:01 20 MG Fentanyl Citrate 30 ml @ 0 mls/hr CONT PRN 03/05/19 04:45 03/18/19 07:12 0 MLS/HR Fentanyl Citrate (Fentanyl 2ml Vial) 25 mcg PRN Q30MIN PRN 02/28/19 07:45 02/28/19 09:42 DC Furosemide (Lasix) 40 mg QD 03/18/19 06:00 03/18/19 05:55 40 MG Haloperidol Lactate (Haldol Inj) 5 mg PRN Q6HRS PRN 02/28/19 15:15 03/09/19 14:07 5 MG Heparin Sodium (Porcine) (Heparin Sodium) 5,000 unit Q8HRS 02/27/19 17:00 03/18/19 05:57 5,000 UNIT Info (Icu Electrolyte Protocol) 1 ea DAILY PRN 03/02/19 07:45 03/02/19 07:45 DC Insulin Glargine (Lantus) 25 units BID 03/17/19 21:00 03/17/19 21:01 25 UNITS Insulin Human Lispro (HumaLOG) 3 units Q6HRS 03/17/19 18:00 03/18/19 05:57 3 UNITS Labetalol HCl (Normodyne Iv Push) 20 mg PRN Q2HR PRN 03/06/19 17:15 03/06/19 21:29 20 MG Linezolid/Dextrose 300 ml @ 300 mls/hr Q12HR 03/05/19 09:00 03/06/19 06:42 DC 03/05/19 21:24 300 MLS/HR Lorazepam (Ativan) 1 mg PRN Q30MIN PRN 02/28/19 07:45 02/28/19 09:42 DC Lorazepam 100 mg/ Sodium Chloride 100 ml @ 0 mls/hr CONT PRN 03/03/19 22:00 03/17/19 15:39 DC 03/03/19 22:18 1 MLS/HR Meperidine HCl (Demerol) 12.5 mg PRN Q30MIN PRN 02/28/19 07:45 02/28/19 09:42 DC Meropenem 500 mg/ Sodium Chloride 50 ml @ 100 mls/hr Q6HRS 03/03/19 12:00 03/05/19 06:47 DC 03/05/19 05:33 100 MLS/HR Methylprednisolone Sodium Succinate (SOLU-Medrol 40MG VIAL) 80 mg 1X ONCE 03/16/19 04:30 03/16/19 04:31 DC 03/16/19 04:17 80 MG Metoclopramide HCl (Reglan Vial) 10 mg Q6HRS 03/07/19 08:00 03/08/19 07:51 DC Metoprolol Tartrate (Lopressor Vial) 5 mg Q6HRS 03/08/19 12:00 03/18/19 05:56 5 MG Metronidazole 100 ml @ 100 mls/hr Q8HRS 03/05/19 06:45 03/10/19 08:29 DC 03/10/19 05:45 100 MLS/HR Micafungin Sodium 100 mg/Dextrose 100 ml @ 100 mls/hr Q24H 02/28/19 12:00 03/05/19 06:47 DC 03/04/19 15:53 100 MLS/HR Midazolam HCl 100 ml @ 0 mls/hr CONT PRN 02/28/19 07:15 03/17/19 21:08 5 MLS/HR Morphine Sulfate (Morphine Sulfate) 2 mg PRN Q2HR PRN 02/27/19 16:45 02/28/19 16:44 DC Multi-Ingred Cream/Lotion/Oil/ Oint (Artificial Tears Eye Ointment) 1 jennifer PRN Q6HRS PRN 02/28/19 07:45 02/28/19 09:42 DC Nystatin (Mycostatin) 1 jennifer BID 03/06/19 09:00 03/17/19 21:02 1 JENNIFER Ondansetron HCl (Zofran) 4 mg PRN Q8HRS PRN 02/27/19 16:45 02/28/19 16:44 DC Perflutren Protein Type A Microsphe (Optison) 0.66 mg PRN 1X PRN 03/01/19 10:00 03/02/19 09:59 DC Propofol 100 ml @ 0 mls/hr CONT PRN 02/28/19 07:45 03/18/19 04:53 18.5 MLS/HR Rocuronium [place] (Zemuron) 50 mg STK-MED ONCE 02/28/19 07:00 02/28/19 09:42 DC Sodium Chloride 500 ml @ 500 mls/hr 1X ONCE 03/06/19 00:45 03/06/19 01:44 DC 03/06/19 00:49 500 MLS/HR Sodium Chloride (Normal Saline Flush) 3 ml QSHIFT PRN 02/28/19 07:45 Sodium Cl/Sod Bicarb/Potass Cl/ PEG (Golytely) 2,000 ml 1X ONCE 03/06/19 08:00 03/06/19 08:01 DC 03/06/19 09:33 2,000 ML Vecuronium [place] (Norcuron Bolus) 8 mg PRN Q4HRS PRN 02/28/19 15:15 03/12/19 23:48 8 MG Labs: Lab Laboratory Tests Test 03/17/19 08:00 03/17/19 08:29 03/17/19 13:50 03/17/19 18:23 O2 Saturation 97 % (92-99) Arterial Blood pH 7.44 (7.35-7.45) Arterial Blood pCO2 at Patient Temp 52 mmHg (35-46) Arterial Blood pO2 at Patient Temp 99 mmHg (75-108) Arterial Blood HCO3 34 mmol/L (21-28) Arterial Blood Base Excess 8 mmol/L (-3-3) FiO2 100 Glucose (Fingerstick) 321 mg/dL (70-99) 275 mg/dL (70-99) 263 mg/dL (70-99) Test 03/17/19 21:00 03/18/19 00:32 03/18/19 05:30 03/18/19 05:43 Glucose (Fingerstick) 233 mg/dL (70-99) 227 mg/dL (70-99) 240 mg/dL (70-99) White Blood Count 8.9 x10^3/uL (4.0-11.0) Red Blood Count 3.69 x10^6/uL (4.30-5.70) Hemoglobin 11.1 g/dL (13.0-17.5) Hematocrit 35.1 % (39.0-53.0) Mean Corpuscular Volume 95 fL (79-100) Mean Corpuscular Hemoglobin 30 pg (25-35) Mean Corpuscular Hemoglobin Concent 32 g/dL (31-37) Red Cell Distribution Width 15.0 % (11.5-14.5) Platelet Count 569 x10^3/uL (140-400) Neutrophils (%) (Auto) 73 % (31-73) Lymphocytes (%) (Auto) 15 % (24-48) Monocytes (%) (Auto) 8 % (0-9) Eosinophils (%) (Auto) 3 % (0-3) Basophils (%) (Auto) 1 % (0-3) Neutrophils # (Auto) 6.5 x10^3uL (1.8-7.7) Lymphocytes # (Auto) 1.4 x10^3/uL (1.0-4.8) Monocytes # (Auto) 0.7 x10^3/uL (0.0-1.1) Eosinophils # (Auto) 0.3 x10^3/uL (0.0-0.7) Basophils # (Auto) 0.1 x10^3/uL (0.0-0.2) Sodium Level 150 mmol/L (136-145) Potassium Level 4.1 mmol/L (3.5-5.1) Chloride Level 111 mmol/L (98-107) Carbon Dioxide Level 32 mmol/L (21-32) Anion Gap 7 (6-14) Blood Urea Nitrogen 74 mg/dL (8-26) Creatinine 1.6 mg/dL (0.7-1.3) Estimated GFR (Cockcroft-Gault) 44.9 Glucose Level 248 mg/dL (70-99) Calcium Level 8.8 mg/dL (8.5-10.1) Objective: Assessment: Fever resolved Flank rash - no Eosinophilia but ? drug - had been on micafungin so less likely yeast, better Tachycardia - s/p Bolus/Digoxin and Metoprolol Increased GI residuals - Has been on/off ? Ileus vs DM gastroparesis Acute respiratory failure, intubated, ARDS, Scrotal edema/cellulitis. Status post code. Fluid overload - mild increase Acute kidney injury, improving Distant history of group B strep, Acinetobacter, Porphyromonas, plus anaerobes. Plan: Plan of Care Cefepime Nystatin Cultures NGTD Supportive care Critically ill Prognosis poor VIVIAN RAMIREZ MD Mar 18, 2019 07:30
--- NOTE | 2019-03-18 08:09 | RAD ---
Portable chest, 03/18/2019: HISTORY: Respiratory failure, ventilator patient Comparison is made to yesterday's study. The patient is rotated to the left. The ET tube tip lies well above the armani. An NG tube and right PICC remain in place. There are moderate bilateral chest opacities compatible with a combination of pleural fluid and underlying infiltrate. These findings have worsened with increasing loss of definition of the pulmonary vascularity. There is no evidence of pneumothorax. IMPRESSION: 1. Stable tube positions. 2. Worsening pulmonary infiltrates, likely representing pulmonary edema, with associated bilateral pleural effusions. Electronically signed by: Moose Astorga MD (03/18/2019 8:06 AM) [facility]
[2019-03-18] MEDS: CEFEPIME HCL IV Push 2 GM VIAL. IVP SCH ×2 (08:31→20:44)
[2019-03-18] MEDS: FAMOTIDINE 20 MG/2 ML VIAL IVP SCH ×2 (08:32→20:45)
[2019-03-18] MEDS: ASPIRIN CHEWABLE 81 MG TABLET. PO SCH (08:32)
[2019-03-18] MEDS: AZITHROMYCIN 250 MG in IV NORMAL SALINE 250ML 250 ML IV SCH (08:48)
--- NOTE | 2019-03-18 08:54 | PDOC ---
PROGRESS NOTES Chief Complaint Chief Complaint Acute respiratory failure secondary to congestive heart failure, most probably acute on chronic diastolic. s/p intubation. Myocardial infarction ruled out. Hypernatremia secondary to severe dehydration will need to provide water flushes in order to correct electrolyte disturbance. High residuals on tube feedings no evidence of obstructive pattern on x ray done 03/05/2019 3 weeks of bilateral general scrotal swelling and tenderness. +dyspnea, abd swelling, leg swelling. POA, Dm2 obesity, extreme, morbid hx RLE BKA RLE stump with chronic wound. No erythema/warmth left foot nail onychomycosis needs attention when more clinically stable Acute renal failure ATN Renal CONSULT 3.1-1.8 chronic venous insuff left lower leg nonspecific perinephric stranding with slight asymmetric stranding adjacent to the left renal pelvis. Findings may be due to chronic kidney disease, though ascending urinary tract infection is not excluded. Bilateral lower lobe consolidation concerning for multifocal pneumonia aspiration not excluded. Right renal hypodensity measuring 2.5 cm is incompletely evaluated on noncontrast examination. Follow-up MRI or CT abdomen and pelvis renal protocol with contrast is recommended for further evaluation. Anasarca. bilateral external iliac lymphadenopathy, may be reactive, though follow-up CT abdomen and pelvis in 3 months is recommended to assess for stability/resolution. Nonobstructive left nephrolithiasis. Coronary artery calcifications. The left ventricular systolic function is normal.ejection fraction is 60-65% .normal LV segmental wall motion. Transmitral Doppler flow pattern is Grade I-abnormal relaxation pattern. Trace tricuspid regurgitation. Estimated PAP 33-38 mmHg. History of Present Illness History of Present Illness Continue with supportive measures ventilatory support - on 100% oxygen and 16 of PEEP, poor prognosis, Dr Vinson will address on Saturday if patient does not have improvement, he has been on support for over 10 days now paO2 76 on PEEP 16 and 100% FiO2, a bit worse than yesterday, has UOP as well and Cr is better today from 1.9-->1.6. Daughter arrived and is bedside follow recommendations from regulatory affairs consultant. UROLOGY CONSULT reviewed no intervention needed except for elevation and diuresis ID CONSULT continue with antibiotic as per ID Cont ARDS treatment. Is better than yesterday, but only incrementally so. Vitals Vitals Vital Signs Date Time Temp Pulse Resp B/P (MAP) Pulse Ox O2 Delivery O2 Flow Rate FiO2 03/18/19 07:12 94 Ventilator 96.0 03/18/19 06:00 66 22 126/66 (86) 03/18/19 04:00 98.5 98.5 Physical Exam Physical Exam GENERAL: Sedated and intubated. HEENT: PERRL, ETT. OGT NECK: Supple. LUNGS: Decreased in bases HEART: S1, S2. 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 RLE stump with chronic wound. No erythema/ fluctuance/warmth. no cyanosis SKIN: Warm to touch. 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 groin - fading [employer]: Sedated on vent RUE-PICC (03/09) clean General: Other (intubated.) Heart: Regular rate Lungs: Other (decrease bs) Abdomen: Normal bowel sounds Extremities: No cyanosis, Other (ANASARCA) Skin: Other (scale, lower leg ) Labs LABS Laboratory Tests Test 03/17/19 13:50 03/17/19 18:23 03/17/19 21:00 03/18/19 00:32 Glucose (Fingerstick) 275 mg/dL (70-99) 263 mg/dL (70-99) 233 mg/dL (70-99) 227 mg/dL (70-99) Test 03/18/19 05:30 03/18/19 05:43 White Blood Count 8.9 x10^3/uL (4.0-11.0) Red Blood Count 3.69 x10^6/uL (4.30-5.70) Hemoglobin 11.1 g/dL (13.0-17.5) Hematocrit 35.1 % (39.0-53.0) Mean Corpuscular Volume 95 fL (79-100) Mean Corpuscular Hemoglobin 30 pg (25-35) Mean Corpuscular Hemoglobin Concent 32 g/dL (31-37) Red Cell Distribution Width 15.0 % (11.5-14.5) Platelet Count 569 x10^3/uL (140-400) Neutrophils (%) (Auto) 73 % (31-73) Lymphocytes (%) (Auto) 15 % (24-48) Monocytes (%) (Auto) 8 % (0-9) Eosinophils (%) (Auto) 3 % (0-3) Basophils (%) (Auto) 1 % (0-3) Neutrophils # (Auto) 6.5 x10^3uL (1.8-7.7) Lymphocytes # (Auto) 1.4 x10^3/uL (1.0-4.8) Monocytes # (Auto) 0.7 x10^3/uL (0.0-1.1) Eosinophils # (Auto) 0.3 x10^3/uL (0.0-0.7) Basophils # (Auto) 0.1 x10^3/uL (0.0-0.2) Sodium Level 150 mmol/L (136-145) Potassium Level 4.1 mmol/L (3.5-5.1) Chloride Level 111 mmol/L (98-107) Carbon Dioxide Level 32 mmol/L (21-32) Anion Gap 7 (6-14) Blood Urea Nitrogen 74 mg/dL (8-26) Creatinine 1.6 mg/dL (0.7-1.3) Estimated GFR (Cockcroft-Gault) 44.9 Glucose Level 248 mg/dL (70-99) Calcium Level 8.8 mg/dL (8.5-10.1) Glucose (Fingerstick) 240 mg/dL (70-99) Assessment and Plan Assessmemt and Plan Problems Medical Problems: (1) Acute renal failure Status: Acute (2) Edema Status: Acute (3) Shortness of breath Status: Acute Comment Review of Relevant I have reviewed the following items pascual (where applicable) has been applied. Labs Laboratory Tests Test 03/16/19 09:15 03/16/19 11:51 03/16/19 18:41 03/16/19 20:43 O2 Saturation 94 % (92-99) Arterial Blood pH 7.41 (7.35-7.45) Arterial Blood pCO2 at Patient Temp 52 mmHg (35-46) Arterial Blood pO2 at Patient Temp 73 mmHg (75-108) Arterial Blood HCO3 32 mmol/L (21-28) Arterial Blood Base Excess 6 mmol/L (-3-3) FiO2 100 Glucose (Fingerstick) 287 mg/dL (70-99) 339 mg/dL (70-99) 316 mg/dL (70-99) Test 03/17/19 00:26 03/17/19 05:15 03/17/19 05:18 03/17/19 08:00 Glucose (Fingerstick) 318 mg/dL (70-99) 333 mg/dL (70-99) Sodium Level 149 mmol/L (136-145) Potassium Level 4.9 mmol/L (3.5-5.1) Chloride Level 109 mmol/L (98-107) Carbon Dioxide Level 33 mmol/L (21-32) Anion Gap 7 (6-14) Blood Urea Nitrogen 82 mg/dL (8-26) Creatinine 1.9 mg/dL (0.7-1.3) Estimated GFR (Cockcroft-Gault) 36.9 Glucose Level 350 mg/dL (70-99) Calcium Level 8.8 mg/dL (8.5-10.1) Phosphorus Level 4.7 mg/dL (2.6-4.7) Albumin 1.8 g/dL (3.4-5.0) O2 Saturation 97 % (92-99) Arterial Blood pH 7.44 (7.35-7.45) Arterial Blood pCO2 at Patient Temp 52 mmHg (35-46) Arterial Blood pO2 at Patient Temp 99 mmHg (75-108) Arterial Blood HCO3 34 mmol/L (21-28) Arterial Blood Base Excess 8 mmol/L (-3-3) FiO2 100 Test 03/17/19 08:29 03/17/19 13:50 03/17/19 18:23 03/17/19 21:00 Glucose (Fingerstick) 321 mg/dL (70-99) 275 mg/dL (70-99) 263 mg/dL (70-99) 233 mg/dL (70-99) Test 03/18/19 00:32 03/18/19 05:30 03/18/19 05:43 Glucose (Fingerstick) 227 mg/dL (70-99) 240 mg/dL (70-99) White Blood Count 8.9 x10^3/uL (4.0-11.0) Red Blood Count 3.69 x10^6/uL (4.30-5.70) Hemoglobin 11.1 g/dL (13.0-17.5) Hematocrit 35.1 % (39.0-53.0) Mean Corpuscular Volume 95 fL (79-100) Mean Corpuscular Hemoglobin 30 pg (25-35) Mean Corpuscular Hemoglobin Concent 32 g/dL (31-37) Red Cell Distribution Width 15.0 % (11.5-14.5) Platelet Count 569 x10^3/uL (140-400) Neutrophils (%) (Auto) 73 % (31-73) Lymphocytes (%) (Auto) 15 % (24-48) Monocytes (%) (Auto) 8 % (0-9) Eosinophils (%) (Auto) 3 % (0-3) Basophils (%) (Auto) 1 % (0-3) Neutrophils # (Auto) 6.5 x10^3uL (1.8-7.7) Lymphocytes # (Auto) 1.4 x10^3/uL (1.0-4.8) Monocytes # (Auto) 0.7 x10^3/uL (0.0-1.1) Eosinophils # (Auto) 0.3 x10^3/uL (0.0-0.7) Basophils # (Auto) 0.1 x10^3/uL (0.0-0.2) Sodium Level 150 mmol/L (136-145) Potassium Level 4.1 mmol/L (3.5-5.1) Chloride Level 111 mmol/L (98-107) Carbon Dioxide Level 32 mmol/L (21-32) Anion Gap 7 (6-14) Blood Urea Nitrogen 74 mg/dL (8-26) Creatinine 1.6 mg/dL (0.7-1.3) Estimated GFR (Cockcroft-Gault) 44.9 Glucose Level 248 mg/dL (70-99) Calcium Level 8.8 mg/dL (8.5-10.1) Laboratory Tests Test 03/17/19 13:50 03/17/19 18:23 03/17/19 21:00 03/18/19 00:32 Glucose (Fingerstick) 275 mg/dL (70-99) 263 mg/dL (70-99) 233 mg/dL (70-99) 227 mg/dL (70-99) Test 03/18/19 05:30 03/18/19 05:43 White Blood Count 8.9 x10^3/uL (4.0-11.0) Red Blood Count 3.69 x10^6/uL (4.30-5.70) Hemoglobin 11.1 g/dL (13.0-17.5) Hematocrit 35.1 % (39.0-53.0) Mean Corpuscular Volume 95 fL (79-100) Mean Corpuscular Hemoglobin 30 pg (25-35) Mean Corpuscular Hemoglobin Concent 32 g/dL (31-37) Red Cell Distribution Width 15.0 % (11.5-14.5) Platelet Count 569 x10^3/uL (140-400) Neutrophils (%) (Auto) 73 % (31-73) Lymphocytes (%) (Auto) 15 % (24-48) Monocytes (%) (Auto) 8 % (0-9) Eosinophils (%) (Auto) 3 % (0-3) Basophils (%) (Auto) 1 % (0-3) Neutrophils # (Auto) 6.5 x10^3uL (1.8-7.7) Lymphocytes # (Auto) 1.4 x10^3/uL (1.0-4.8) Monocytes # (Auto) 0.7 x10^3/uL (0.0-1.1) Eosinophils # (Auto) 0.3 x10^3/uL (0.0-0.7) Basophils # (Auto) 0.1 x10^3/uL (0.0-0.2) Sodium Level 150 mmol/L (136-145) Potassium Level 4.1 mmol/L (3.5-5.1) Chloride Level 111 mmol/L (98-107) Carbon Dioxide Level 32 mmol/L (21-32) Anion Gap 7 (6-14) Blood Urea Nitrogen 74 mg/dL (8-26) Creatinine 1.6 mg/dL (0.7-1.3) Estimated GFR (Cockcroft-Gault) 44.9 Glucose Level 248 mg/dL (70-99) Calcium Level 8.8 mg/dL (8.5-10.1) Glucose (Fingerstick) 240 mg/dL (70-99) Microbiology 03/05/19 Blood Culture - Final, Complete NO GROWTH AFTER 5 DAYS 03/08/19 - Final, Complete 03/08/19 - Final, Complete 03/08/19 - Final, Complete 03/08/19 Gram Stain Evaluation - Final, Complete 03/08/19 Sputum Culture - Final, Complete 03/08/19 Sputum Result 1 - Final, Complete 03/02/19 Urine Culture - Final, Complete 03/02/19 Urine Culture Result 1 (LUCIO) - Final, Complete 03/09/19 Aerobic Culture - Final, Complete 03/09/19 Aerobic Culture Result 1 (LUCIO) - Final, Complete 03/09/19 Gram Stain - Final, Complete 03/09/19 Gram Stain Result 1 (LUCIO) - Final, Complete 03/09/19 Gram Stain Result 2 (LUCIO) - Final, Complete Medications Current Medications Ondansetron HCl (Zofran) 4 mg PRN Q8HRS PRN IV NAUSEA/VOMITING; Start 02/27/19 at 16:45; Stop 02/28/19 at 16:44; Status DC Morphine Sulfate (Morphine Sulfate) 2 mg PRN Q2HR PRN IV PAIN; Start 02/27/19 at 16:45; Stop 02/28/19 at 16:44; Status DC Acetaminophen (Tylenol) 650 mg PRN Q4HRS PRN PO FEVER Last administered on 02/27at 21:06; Start 02/27/19 at 16:45; Stop 02/28/19 at 16:44; Status DC Dextrose (Dextrose 50%-Water Syringe) 12.5 gm PRN Q15MIN PRN IV SEE COMMENTS; Start 02/27/19 at 16:45; Stop 03/10/19 at 13:48; Status DC Heparin Sodium (Porcine) (Heparin Sodium) 5,000 unit Q8HRS SQ Last administered on 03/18/19at 05:57; Start 02/27/19 at 17:00 Lorazepam (Ativan) 1 mg PRN Q8HRS PRN IV ANXIETY / AGITATION Last administered on 03/08/19at 03:37; Start 02/28/19 at 02:45 Etomidate (Amidate) 20 mg STK-MED ONCE IV ; Start 02/28/19 at 06:59; Stop at 07:00; Status DC Rocuronium [place] (Zemuron) 50 mg STK-MED ONCE .ROUTE ; Start 02/28/19 at 07:00 ; Stop 02/28/19 at 09:42; Status DC Dopamine HCl/ Dextrose 250 ml @ 12.266 mls/ hr CONT PRN IV SEE I/O RECORD Last administered on 02/28/19at 08:06; Start 02/28/19 at 07:15; Stop 03/17/19 at 15:50; Status DC Fentanyl Citrate 30 ml @ 0 mls/hr CONT PRN IV SEE PROTOCOL; Start 02/28/19 at 07:15; Stop 02/28/19 at 07:59; Status DC Propofol 100 ml @ 0 mls/hr CONT PRN IV SEE PROTOCOL; Start 02/28/19 at 07:15; Stop 02/28/19 at 07:59; Status DC Fentanyl Citrate (Fentanyl 2ml Vial) 25 mcg PRN Q1HR PRN IV SEE COMMENTS; Start 02/28/19 at 07:15; Stop 02/28/19 at 07:59; Status DC Fentanyl Citrate (Fentanyl 2ml Vial) 50 mcg PRN Q1HR PRN IV SEE COMMENTS; Start 02/28/19 at 07:15; Stop 02/28/19 at 07:59; Status DC Midazolam HCl 100 ml @ 0 mls/hr CONT PRN IV SEE PROTOCOL Last administered on at 21:08; Start 02/28/19 at 07:15 Sodium Chloride 1,000 ml @ 1,000 mls/hr Q1H IV Last administered on 02/28/19at 07:32; Start 02/28/19 at 07:32; Stop 02/28/19 at 10:09; Status DC Fentanyl Citrate (Fentanyl 2ml Vial) 25 mcg PRN Q30MIN PRN IV see comments; Start 02/28/19 at 07:45; Stop 02/28/19 at 09:42; Status DC Lorazepam (Ativan) 1 mg PRN Q30MIN PRN IV SEDATION; Start 02/28/19 at 07:45; Stop 02/28/19 at 09:42; Status DC Fentanyl Citrate 30 ml @ 2.5 mls/hr CONT PRN PRN IV SEE I/O RECORD Last administered on 03/05/19at 03:44; Start 02/28/19 at 07:45; Stop 03/05/19 at 04:40; Status DC Propofol 100 ml @ 0 mls/hr CONT PRN IV SEE I/O RECORD Last administered on 03/18at 04:53; Start 02/28/19 at 07:45 Vecuronium [place] (Norcuron Bolus) 10 mg PRN Q30MIN PRN IV SHIVERING; Start at 07:45; Stop 02/28/19 at 09:42; Status DC Meperidine HCl (Demerol) 12.5 mg PRN Q30MIN PRN IV SHIVERING; Start 02/28/19 at 07:45; Stop 02/28/19 at 09:42; Status DC Multi-Ingred Cream/Lotion/Oil/ Oint (Artificial Tears Eye Ointment) 1 jennifer PRN Q6HRS PRN OU 0.5 INCH FOR DRY EYE; Start 02/28/19 at 07:45; Stop 02/28/19 at 09 :42; Status DC Famotidine (Pepcid Vial) 20 mg BID IVP Last administered on 02/28/19at 11:03; Start 02/28/19 at 09:00; Stop 02/28/19 at 14:25; Status DC Aspirin (Aspirin) 300 mg DAILY MT ; Start 02/28/19 at 09:00; Stop 02/28/19 at 09 :42; Status DC Sodium Chloride (Normal Saline Flush) 3 ml QSHIFT PRN IV AFTER MEDS AND BLOOD DRAWS; Start 02/28/19 at 07:45 Acetaminophen (Tylenol) 650 mg Q6HRS NG ; Start 02/28/19 at 12:00; Stop at 12:00; Status DC Acetaminophen (Tylenol Supp) 650 mg PRN Q6HRS PRN MT MILD PAIN / TEMP; Start at 07:45; Stop 03/01/19 at 07:45; Status DC Acetaminophen (Tylenol) 650 mg PRN Q6HRS PRN NG MILD PAIN / TEMP; Start at 07:45; Stop 03/01/19 at 07:45; Status DC Info (Icu Electrolyte Protocol) 1 ea DAILY PRN MC PER PROTOCOL; Start 03/02/19 at 07:45; Stop 03/02/19 at 07:45; Status DC Furosemide (Lasix) 60 mg 1X ONCE IVP Last administered on 02/28/19at 08:30; Start 02/28/19 at 08:30; Stop 02/28/19 at 08:31; Status DC Ceftriaxone Sodium (Rocephin) 1 gm Q24H IVP Last administered on 02/28/19 11: 03; Start 02/28/19 at 11:00; Stop 02/28/19 at 11:18; Status DC Calcium Chloride 1000 mg/Dextrose 60 ml @ 120 mls/hr 1X ONCE IV Last administered on 02/28/19 11:03; Start 02/28/19 at 10:30; Stop 02/28/19 at 10:59 ; Status DC Meropenem 500 mg/ Sodium Chloride 50 ml @ 100 mls/hr Q8HRS IV Last administered on 03/03/19 06:24; Start 02/28/19 at 14:00; Stop 03/03/19 at 07:04; Status DC Linezolid/Dextrose 300 ml @ 300 mls/hr Q12HR IV Last administered on 03/03/19 20:00; Start 02/28/19 at 11:30; Stop 03/04/19 at 08:55; Status DC Micafungin Sodium 100 mg/Dextrose 100 ml @ 100 mls/hr Q24H IV Last administered on 03/04/19 15:53; Start 02/28/19 at 12:00; Stop 03/05/19 at 06:47; Status DC Furosemide (Lasix) 40 mg [id number] IVP Last administered on 03/02/19 14:06; Start 02/28/19 at 14:00; Stop 03/02/19 at 17:02; Status DC Famotidine (Pepcid Vial) 20 mg QHS IVP Last administered on 03/01/19 21:24; Start 02/28/19 at 21:00; Stop 03/02/19 at 10:07; Status DC Albuterol/ Ipratropium (Duoneb) 3 ml RTQID NEB Last administered on 03/17/19 20:03; Start 02/28/19 at 16:00 Haloperidol Lactate (Haldol Inj) 5 mg PRN Q6HRS PRN IVP AGITATION 2ND CHOICE Last administered on 03/09/19 14:07; Start 02/28/19 at 15:15 Vecuronium [place] (Norcuron Bolus) 8 mg PRN Q4HRS PRN IV MUSCLE SPASMS Last administered on 4/11/19at 23:48; Start 02/28/19 at 15:15 Perflutren Protein Type A Microsphe (Optison) 0.66 mg PRN 1X PRN IV SEE COMMENTS; Start 03/01/19 at 10:00; Stop 03/02/19 at 09:59; Status DC Digoxin (Lanoxin) 125 mcg 1X STAT IV ; Start 03/01/19 at 15:34; Stop 03/01/19 at 16:00; Status DC Sodium Chloride 500 ml @ 500 mls/hr 1X ONCE IV Last administered on at 18:46; Start 03/01/19 at 18:45; Stop 03/01/19 at 19:44; Status DC Famotidine (Pepcid Vial) 20 mg Q12HR IVP Last administered on 03/18/19at 08:32; Start 03/02/19 at 21:00 Furosemide (Lasix) 40 mg DAILY IVP Last administered on 03/04/19 09:52; Start 03/03/19 at 09:00; Stop 03/04/19 at 12:13; Status DC Acetaminophen (Tylenol Supp) 650 mg PRN Q6HRS PRN MT MILD PAIN / TEMP Last administered on 03/03/19at 17:39; Start 03/02/19 at 17:15 Meropenem 500 mg/ Sodium Chloride 50 ml @ 100 mls/hr Q6HRS IV Last administered on 03/05/19at 05:33; Start 03/03/19 at 12:00; Stop 03/05/19 at 06:47; Status DC Albumin Human 100 ml @ 100 mls/hr 1X ONCE IV Last administered on 03/03/19at 08 :52; Start 03/03/19 at 08:30; Stop 03/03/19 at 09:29; Status DC Atropine Sulfate (ATROPINE 0.5mg SYRINGE) 2 mg STK-MED ONCE .ROUTE ; Start 02/27 at 16:21; Stop 03/03/19 at 16:22; Status DC Dopamine HCl/ Dextrose (DOPamine 400MG/ 250ML PREMIX) 400 mg STK-MED ONCE IV ; Start 02/27/19 at 16:21; Stop 03/03/19 at 16:22; Status DC Furosemide (Lasix) 40 mg 1X ONCE IVP Last administered on 03/03/19at 18:46; Start 03/03/19 at 18:45; Stop 03/03/19 at 18:46; Status DC Lorazepam 100 mg/ Sodium Chloride 100 ml @ 0 mls/hr CONT PRN IV SEE PROTOCOL Last administered on 03/03/19 22:18; Start 03/03/19 at 22:00; Stop 03/17/19 at 15 :39; Status DC Acetaminophen (Tylenol) 650 mg PRN Q6HRS PRN PEG MILD PAIN / TEMP Last administered on 03/10/19 20:48; Start 03/04/19 at 11:45 Furosemide (Lasix) 40 mg BID92 IVP Last administered on 03/06/19 08:38; Start 03/04/19 at 14:00; Stop 03/06/19 at 13:30; Status DC Fentanyl Citrate 30 ml @ 0 mls/hr CONT PRN IV SEE PROTOCOL Last administered on 03/18/19 07:12; Start 03/05/19 at 04:45 Cefepime HCl (Maxipime) 2 gm Q8HRS IVP Last administered on 03/10/19 05:43; Start 03/05/19 at 06:45; Stop 03/10/19 at 08:29; Status DC Metronidazole 100 ml @ 100 mls/hr Q8HRS IV Last administered on 03/10/19 05:45 ; Start 03/05/19 at 06:45; Stop 03/10/19 at 08:29; Status DC Linezolid/Dextrose 300 ml @ 300 mls/hr Q12HR IV Last administered on 03/05/19 21:24; Start 03/05/19 at 09:00; Stop 03/06/19 at 06:42; Status DC Metoclopramide HCl (Reglan Vial) 10 mg QIDACHS IV Last administered on 20:43; Start 03/05/19 at 11:30; Stop 03/07/19 at 07:37; Status DC Insulin Glargine (Lantus) 12 units BID SQ Last administered on 03/09/19 09:29; Start 03/05/19 at 09:00; Stop 03/09/19 at 17:11; Status DC Digoxin (Lanoxin) 500 mcg 1X ONCE IV Last administered on 4/5/19at 00:48; Start 03/06/19 at 00:45; Stop 03/06/19 at 00:46; Status DC Metoprolol Tartrate (Lopressor Vial) 5 mg 1X ONCE IVP Last administered on 03/06 00:53; Start 03/06/19 at 00:45; Stop 03/06/19 at 00:46; Status DC Sodium Chloride 500 ml @ 500 mls/hr 1X ONCE IV Last administered on 03/06/19 00:49; Start 03/06/19 at 00:45; Stop 03/06/19 at 01:44; Status DC Nystatin (Mycostatin) 1 jennifer BID TP Last administered on 03/17/19 21:02; Start 03/06/19 at 09:00 Sodium Cl/Sod Bicarb/Potass Cl/ PEG (Golytely) 2,000 ml 1X ONCE PO Last administered on 03/06/19 09:33; Start 03/06/19 at 08:00; Stop 03/06/19 at 08:01; Status DC Furosemide (Lasix) 40 mg DAILY08 IVP Last administered on 03/09/19 09:27; Start 03/07/19 at 08:00; Stop 03/09/19 at 12:45; Status DC Metoprolol Tartrate (Lopressor Vial) 10 mg 1X ONCE IVP Last administered on 16:08; Start 03/06/19 at 15:15; Stop 03/06/19 at 15:16; Status DC Metoprolol Tartrate (Lopressor Vial) 5 mg Q6HRS IVP Last administered on 17:03; Start 03/06/19 at 18:00; Stop 03/07/19 at 18:27; Status DC Aspirin (Children'S Aspirin) 81 mg 1X ONCE PO Last administered on 03/06/19 18 :18; Start 03/06/19 at 17:00; Stop 03/06/19 at 17:01; Status DC Aspirin (Children'S Aspirin) 81 mg [id number] PO Last administered on 08:32; Start 03/07/19 at 08:00 Labetalol HCl (Normodyne Iv Push) 20 mg PRN Q2HR PRN IVP HYPERTENSION, SEE COMMENTS Last administered on 4/5/19at 21:29; Start 03/06/19 at 17:15 Digoxin (Lanoxin) 250 mcg 1X ONCE IV Last administered on 03/06/19at 22:00; Start 03/06/19 at 22:00; Stop 03/06/19 at 22:01; Status DC Diltiazem HCl 125 mg/Dextrose 125 ml @ 5 mls/hr CONT PRN IV SEE I/O RECORD Last administered on 03/12/19at 08:20; Start 03/06/19 at 23:00; Stop 03/12/19 at 11:03; Status DC Metoclopramide HCl (Reglan Vial) 10 mg Q6HRS IV ; Start 03/07/19 at 08:00; Stop 03/08/19 at 07:51; Status DC Metoprolol Tartrate (Lopressor Vial) 5 mg Q6HRS IVP Last administered on at 05:56; Start 03/08/19 at 12:00 Furosemide (Lasix) 40 mg 1X ONCE IVP Last administered on 03/08/19at 21:21; Start 03/08/19 at 21:00; Stop 03/08/19 at 21:01; Status DC Furosemide (Lasix) 20 mg DAILY08 IVP ; Start 03/10/19 at 08:00; Stop 03/10/19 at 08:00; Status DC Furosemide (Lasix) 20 mg DAILY08 IVP Last administered on 03/14/19at 07:41; Start 03/10/19 at 08:00; Stop 03/15/19 at 07:32; Status DC Insulin Glargine (Lantus) 16 units BID SQ Last administered on 03/12/19at 00:09 ; Start 03/09/19 at 21:00; Stop 03/12/19 at 07:18; Status DC Insulin Human Lispro (HumaLOG) 0-9 UNITS Q6HRS SQ Last administered on at 05:45; Start 03/09/19 at 18:00; Stop 03/12/19 at 07:18; Status DC Dextrose (Dextrose 50%-Water Syringe) 12.5 gm PRN Q15MIN PRN IV SEE COMMENTS; Start 03/09/19 at 17:15 Cefepime HCl (Maxipime) 2 gm Q12HR IVP Last administered on 03/18/19at 08:31; Start 03/10/19 at 21:00 Insulin Human Lispro (HumaLOG) 15 units 1X ONCE SQ Last administered on at 00:14; Start 03/11/19 at 00:00; Stop 03/11/19 at 00:01; Status DC Insulin Glargine (Lantus) 20 units BID SQ Last administered on 03/17/19at 08:32 ; Start 03/12/19 at 09:00; Stop 03/17/19 at 10:46; Status DC Insulin Human Lispro (HumaLOG) 0-9 UNITS Q6HRS SQ Last administered on at 05:58; Start 03/12/19 at 12:00 Diltiazem HCl (Cardizem) 30 mg Q6HRS PO Last administered on 03/18/19at 05:55; Start 03/12/19 at 12:00 Furosemide (Lasix) 20 mg 1X ONCE IVP Last administered on 03/13/19at 11:04; Start 03/13/19 at 10:30; Stop 03/13/19 at 10:31; Status DC Furosemide (Lasix) 20 mg 1X ONCE IVP Last administered on 03/14/19at 07:40; Start 03/14/19 at 07:15; Stop 03/14/19 at 14:05; Status DC Furosemide (Lasix) 40 mg Q8HRS IVP Last administered on 03/17/19at 05:49; Start 03/14/19 at 22:00; Stop 03/17/19 at 10:58; Status DC Albuterol Sulfate (Ventolin Neb Soln) 2.5 mg 1X ONCE NEB Last administered on 03/16/19at 04:00; Start 03/16/19 at 04:00; Stop 03/16/19 at 04:01; Status DC Methylprednisolone Sodium Succinate (SOLU-Medrol 40MG VIAL) 80 mg 1X ONCE IV Last administered on 03/16/19at 04:17; Start 03/16/19 at 04:30; Stop 03/16/19 at 04:31; Status DC Furosemide (Lasix) 20 mg 1X ONCE IVP Last administered on 03/16/19at 04:17; Start 03/16/19 at 04:30; Stop 03/16/19 at 04:31; Status DC Insulin Glargine (Lantus) 25 units BID SQ Last administered on 03/17/19at 21:01 ; Start 03/17/19 at 21:00 Insulin Human Lispro (HumaLOG) 10 units Q6HRS SQ ; Start 03/17/19 at 12:00; Stop 03/17/19 at 13:32; Status DC Furosemide (Lasix) 40 mg QD IVP Last administered on 03/18/19at 05:55; Start at 06:00 Insulin Human Lispro (HumaLOG) 3 units Q6HRS SQ Last administered on 03/18/19at 05:57; Start 03/17/19 at 18:00 Azithromycin 250 mg/Sodium Chloride 250 ml @ 250 mls/hr Q24H IV Last administered on 03/18/19at 08:48; Start 03/18/19 at 08:00 Alteplase, Recombinant (Cathflo For Central Catheter Clearance) 1 mg 1X ONCE INT CAT ; Start 03/18/19 at 07:30; Stop 03/18/19 at 07:31; Status DC Alteplase, Recombinant (Cathflo For Central Catheter Clearance) 1 mg 1X ONCE INT CAT ; Start 03/18/19 at 07:30; Stop 03/18/19 at 07:31; Status DC Alteplase, Recombinant (Cathflo For Central Catheter Clearance) 1 mg 1X ONCE INT CAT ; Start 03/18/19 at 07:30; Stop 03/18/19 at 07:31; Status DC Active Scripts Active Reported Proair Hfa Inhaler (Albuterol Sulfate) 8.5 Gm Hfa.aer.ad 1 Puff INH PRN Q6HRS PRN Lantus Solostar (Insulin Glargine,Hum.rec.anlog) 100 Unit/1 Ml Insuln.pen 20 Unit SQ QHS Humalog (Insulin Lispro) 100 Unit/1 Ml Cartridge 6 Unit SQ TIDWMEALS Doxazosin Mesylate 2 Mg Tablet 2 Mg PO DAILY Omeprazole 40 Mg Capsule.dr 40 Mg PO DAILY Amlodipine Besylate 10 Mg Tablet 10 Mg PO DAILY Atorvastatin Calcium 20 Mg Tablet 20 Mg PO DAILY Atenolol 50 Mg Tablet 50 Mg PO DAILY Losartan Potassium 100 Mg Tablet 100 Mg PO DAILY Aspirin 81 Mg Tab.chew 81 Mg PO DAILY Glyburide 5 Mg Tablet 1 Tab PO BID Vitals/I & O Vital Sign - Last 24 Hours 03/17/19 03/17/19 03/17/19 03/17/19 09:00 10:00 10:01 10:33 Pulse 74 72 Resp 27 27 B/P (MAP) 140/68 (92) 117/62 (80) Pulse Ox 98 98 98 98 O2 Delivery Ventilator Ventilator O2 Flow Rate 96.0 03/17/19 03/17/19 03/17/19 03/17/19 10:35 10:47 11:00 11:45 Pulse 70 Resp 27 B/P (MAP) 134/71 (92) Pulse Ox 96 97 95 O2 Delivery Ventilator Ventilator Ventilator 03/17/19 03/17/19 03/17/19 03/17/19 12:00 12:00 13:00 13:35 Temp 98.9 98.9 Pulse 80 74 Resp 27 27 B/P (MAP) 140/73 (95) 136/71 (92) Pulse Ox 97 96 98 O2 Delivery Mechanical Ventilator Ventilator Ventilator Ventilator 03/17/19 03/17/19 03/17/19 03/17/19 13:53 13:54 14:00 15:00 Pulse 71 71 68 68 Resp 27 B/P (MAP) 140/75 141/75 (97) 147/77 (100) Pulse Ox 95 95 O2 Delivery Ventilator Ventilator 03/17/19 03/17/19 03/17/19 03/17/19 15:45 16:00 16:00 16:17 Temp 99.1 99.1 Pulse 78 Resp 26 B/P (MAP) 124/66 (85) Pulse Ox 98 96 95 O2 Delivery Ventilator Ventilator Mechanical Ventilator Ventilator 03/17/19 03/17/19 03/17/19 03/17/19 17:00 17:46 18:00 18:19 Pulse 74 76 77 Resp 22 23 B/P (MAP) 160/76 (104) 160/72 Pulse Ox 91 98 97 O2 Delivery Ventilator Ventilator Ventilator 03/17/19 03/17/19 03/17/19 03/17/19 18:19 19:00 20:00 20:00 Temp 97.9 97.9 Pulse 77 72 75 Resp 22 22 B/P (MAP) 160/72 135/68 (90) 111/55 (73) Pulse Ox 96 98 O2 Delivery Ventilator Ventilator Mechanical Ventilator 03/17/19 03/17/19 03/17/19 03/17/19 20:04 21:00 22:00 23:00 Pulse 73 72 Resp 22 22 B/P (MAP) 114/54 (74) 140/72 (94) Pulse Ox 97 98 98 97 O2 Delivery Ventilator Ventilator Ventilator Ventilator 03/17/19 03/18/19 03/18/19 03/18/19 23:00 00:00 00:00 00:33 Temp 99.0 99.0 Pulse 70 70 70 Resp 22 B/P (MAP) 136/70 (92) 143/71 (95) 124/62 Pulse Ox 97 97 O2 Delivery Ventilator Ventilator Mechanical Ventilator 03/18/19 03/18/19 03/18/19 03/18/19 00:33 01:00 02:00 02:35 Pulse 70 68 68 Resp B/P (MAP) 124/62 127/63 (84) 115/59 (77) Pulse Ox 98 98 97 O2 Delivery Ventilator Ventilator Ventilator 03/18/19 03/18/19 03/18/19 03/18/19 03:00 04:00 04:00 05:00 Temp 98.5 98.5 Pulse 70 64 69 Resp 22 22 B/P (MAP) 115/60 (78) 120/62 (81) 127/64 (85) Pulse Ox 90 94 95 O2 Delivery Ventilator Mechanical Ventilator Ventilator Ventilator 03/18/19 03/18/19 03/18/19 03/18/19 05:20 05:55 05:56 06:00 Pulse 68 68 66 Resp 22 B/P (MAP) 121/61 121/61 126/66 (86) Pulse Ox 94 94 O2 Delivery Ventilator Ventilator 03/18/19 07:12 Pulse Ox 94 O2 Delivery Ventilator O2 Flow Rate 96.0 Intake and Output 03/17/19 03/17/19 03/18/19 14:59 22:59 06:59 Intake Total 1050 ml 2448.75 ml 2129 ml Output Total 1085 ml 810 ml 870 ml Balance -35 ml 1638.75 ml 1259 ml YRIS RUIZ MD Mar 18, 2019 08:54
[2019-03-18] MEDS: IPRATRPIUM/ALBUTEROL 0.5/2.5MG 3 ML NEBU. NEB SCH ×4 (08:55→19:53)
[2019-03-18] MEDS: NYSTATIN 100,000 UNIT/GM TOPICAL CREAM 15GM TUBE. TP SCH ×2 (08:58→21:26)
[2019-03-18] MEDS: INSULIN GLARGINE 300 UNITS/3 ML INSULN.PEN. SQ SCH ×2 (09:03→21:26)
[2019-03-18 10:07] LABS: SAT O2 ABG 95 % (92-99)
[2019-03-18 10:24] LABS: BASE EXCESS ABG 9 mmol/L (-3-3); HCO3 ABG 34 mmol/L (21-28); PCO2 ABG 50 mmHg (35-46); PO2 ABG 76 mmHg (75-108)
[2019-03-18 10:25] LABS: FIO2 ABG 95
--- NOTE | 2019-03-18 10:28 | PDOC ---
SUBJECTIVE ROS Intubated OBJECTIVE Vital Signs Vital Signs Date Time Temp Pulse Resp B/P (MAP) Pulse Ox O2 Delivery O2 Flow Rate FiO2 03/18/19 09:55 97 Ventilator 03/18/19 08:00 96.0 03/18/19 06:00 66 22 126/66 (86) 03/18/19 04:00 98.5 98.5 I & 0 Intake and Output 03/18/19 07:00 Intake Total 5627.75 ml Output Total 2415 ml Balance 3212.75 ml IV Total 674.75 ml Tube Feeding 3953 ml Other 1000 ml Output Urine Total 2415 ml Gastric Drainage Total 0 ml # Bowel Movements 1 PHYSICAL EXAM Physical Exam GENERAL: Sedated and intubated. HEENT: ETT. OGT NECK: Supple. LUNGS: CTA ant HEART: S1, S2. ABDOMEN: Distended with decreased bowel sounds GENITOURINARY: [place] +, + scrotal swelling EXTREMITIES: 1+ edema. RLE stump with chronic wound. SKIN: 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 groin DIAGNOSIS/ASSESSMENT Assessment & Plan LEONARD- Cr up to 2-2.3 improving stable E-Lytes and acid base Acute hypoxemic /hypercapnic respiratory failure./ ARDS Anasarca- Improved IV Lasix Increased over the weekend to Q 8 hrs Showed improved aeration on CxR After decreasing dose, worsening CxR Increased Lasix back to Q 8 ,recommend titration on clinical picture Hypernatremia - Stable Continue free water flushes , Right Renal mass Fever - ? Infection vs ileus vs drug reaction Acute respiratory failure, intubated, increased infiltrates today - ARDS Scrotal edema/cellulitis- Improved urology consulted In hospital CP arrest Skinny RN COMMENT/RELEVANT DATA Meds Current Medications Medications (Trade) Dose Ordered Sig/Lula Start Time Stop Time Status Last Admin Dose Admin Acetaminophen (Tylenol Supp) 650 mg PRN Q6HRS PRN 03/02/19 17:15 03/03/19 17:39 650 MG Acetaminophen (Tylenol) 650 mg PRN Q6HRS PRN 03/04/19 11:45 03/10/19 20:48 650 MG Albumin Human 100 ml @ 100 mls/hr 1X ONCE 03/03/19 08:30 03/03/19 09:29 DC 03/03/19 08:52 100 MLS/HR Albuterol Sulfate (Ventolin Neb Soln) 2.5 mg 1X ONCE 03/16/19 04:00 03/16/19 04:01 DC 03/16/19 04:00 2.5 MG Albuterol/ Ipratropium (Duoneb) 3 ml RTQID 02/28/19 16:00 03/18/19 08:55 3 ML Alteplase, Recombinant (Cathflo For Central Catheter Clearance) 1 mg 1X ONCE 03/18/19 07:30 03/18/19 07:31 DC Aspirin (Aspirin) 300 mg DAILY 02/28/19 09:00 02/28/19 09:42 DC Aspirin (Children'S Aspirin) 81 mg DAILYWBKFT 03/07/19 08:00 03/18/19 08:32 81 MG Atropine Sulfate (ATROPINE 0.5mg SYRINGE) 2 mg STK-MED ONCE 02/27/19 16:21 03/03/19 16:22 DC Azithromycin 250 mg/Sodium Chloride 250 ml @ 250 mls/hr Q24H 03/18/19 08:00 03/18/19 08:48 250 MLS/HR Calcium Chloride 1000 mg/Dextrose 60 ml @ 120 mls/hr 1X ONCE 02/28/19 10:30 02/28/19 10:59 DC 02/28/19 11:03 120 MLS/HR Cefepime HCl (Maxipime) 2 gm Q12HR 03/10/19 21:00 03/18/19 08:31 2 GM Ceftriaxone Sodium (Rocephin) 1 gm Q24H 02/28/19 11:00 02/28/19 11:18 DC 02/28/19 11:03 1 GM Dextrose (Dextrose 50%-Water Syringe) 12.5 gm PRN Q15MIN PRN 03/09/19 17:15 Digoxin (Lanoxin) 250 mcg 1X ONCE 03/06/19 22:00 03/06/19 22:01 DC 03/06/19 22:00 250 MCG Diltiazem HCl (Cardizem) 30 mg Q6HRS 03/12/19 12:00 03/18/19 05:55 30 MG Diltiazem HCl 125 mg/Dextrose 125 ml @ 5 mls/hr CONT PRN 03/06/19 23:00 03/12/19 11:03 DC 03/12/19 08:20 5 MLS/HR Dopamine HCl/ Dextrose (DOPamine 400MG/ 250ML PREMIX) 400 mg STK-MED ONCE 02/27/19 16:21 03/03/19 16:22 DC Etomidate (Amidate) 20 mg STK-MED ONCE 02/28/19 06:59 02/28/19 07:00 DC Famotidine (Pepcid Vial) 20 mg Q12HR 03/02/19 21:00 03/18/19 08:32 20 MG Fentanyl Citrate 30 ml @ 0 mls/hr CONT PRN 03/05/19 04:45 03/18/19 07:12 0 MLS/HR Fentanyl Citrate (Fentanyl 2ml Vial) 25 mcg PRN Q30MIN PRN 02/28/19 07:45 02/28/19 09:42 DC Furosemide (Lasix) 40 mg QD 03/18/19 06:00 03/18/19 05:55 40 MG Haloperidol Lactate (Haldol Inj) 5 mg PRN Q6HRS PRN 02/28/19 15:15 03/09/19 14:07 5 MG Heparin Sodium (Porcine) (Heparin Sodium) 5,000 unit Q8HRS 02/27/19 17:00 03/18/19 05:57 5,000 UNIT Info (Icu Electrolyte Protocol) 1 ea DAILY PRN 03/02/19 07:45 03/02/19 07:45 DC Insulin Glargine (Lantus) 25 units BID 03/17/19 21:00 03/18/19 09:03 25 UNITS Insulin Human Lispro (HumaLOG) 3 units Q6HRS 03/17/19 18:00 03/18/19 05:57 3 UNITS Labetalol HCl (Normodyne Iv Push) 20 mg PRN Q2HR PRN 03/06/19 17:15 03/06/19 21:29 20 MG Linezolid/Dextrose 300 ml @ 300 mls/hr Q12HR 03/05/19 09:00 03/06/19 06:42 DC 03/05/19 21:24 300 MLS/HR Lorazepam (Ativan) 1 mg PRN Q30MIN PRN 02/28/19 07:45 02/28/19 09:42 DC Lorazepam 100 mg/ Sodium Chloride 100 ml @ 0 mls/hr CONT PRN 03/03/19 22:00 03/17/19 15:39 DC 03/03/19 22:18 1 MLS/HR Meperidine HCl (Demerol) 12.5 mg PRN Q30MIN PRN 02/28/19 07:45 02/28/19 09:42 DC Meropenem 500 mg/ Sodium Chloride 50 ml @ 100 mls/hr Q6HRS 03/03/19 12:00 03/05/19 06:47 DC 03/05/19 05:33 100 MLS/HR Methylprednisolone Sodium Succinate (SOLU-Medrol 40MG VIAL) 80 mg 1X ONCE 03/16/19 04:30 03/16/19 04:31 DC 03/16/19 04:17 80 MG Metoclopramide HCl (Reglan Vial) 10 mg Q6HRS 03/07/19 08:00 03/08/19 07:51 DC Metoprolol Tartrate (Lopressor Vial) 5 mg Q6HRS 03/08/19 12:00 03/18/19 05:56 5 MG Metronidazole 100 ml @ 100 mls/hr Q8HRS 03/05/19 06:45 03/10/19 08:29 DC 03/10/19 05:45 100 MLS/HR Micafungin Sodium 100 mg/Dextrose 100 ml @ 100 mls/hr Q24H 02/28/19 12:00 03/05/19 06:47 DC 03/04/19 15:53 100 MLS/HR Midazolam HCl 100 ml @ 0 mls/hr CONT PRN 02/28/19 07:15 03/17/19 21:08 5 MLS/HR Morphine Sulfate (Morphine Sulfate) 2 mg PRN Q2HR PRN 02/27/19 16:45 02/28/19 16:44 DC Multi-Ingred Cream/Lotion/Oil/ Oint (Artificial Tears Eye Ointment) 1 jennifer PRN Q6HRS PRN 02/28/19 07:45 02/28/19 09:42 DC Nystatin (Mycostatin) 1 jennifer BID 03/06/19 09:00 03/17/19 21:02 1 JENNIFER Ondansetron HCl (Zofran) 4 mg PRN Q8HRS PRN 02/27/19 16:45 02/28/19 16:44 DC Perflutren Protein Type A Microsphe (Optison) 0.66 mg PRN 1X PRN 03/01/19 10:00 03/02/19 09:59 DC Propofol 100 ml @ 0 mls/hr CONT PRN 02/28/19 07:45 03/18/19 09:26 18.5 MLS/HR Rocuronium Gerry (Zemuron) 50 mg STK-MED ONCE 02/28/19 07:00 02/28/19 09:42 DC Sodium Chloride 500 ml @ 500 mls/hr 1X ONCE 03/06/19 00:45 03/06/19 01:44 DC 03/06/19 00:49 500 MLS/HR Sodium Chloride (Normal Saline Flush) 3 ml QSHIFT PRN 02/28/19 07:45 Sodium Cl/Sod Bicarb/Potass Cl/ PEG (Golytely) 2,000 ml 1X ONCE 03/06/19 08:00 03/06/19 08:01 DC 03/06/19 09:33 2,000 ML Vecuronium Gerry (Norcuron Bolus) 8 mg PRN Q4HRS PRN 02/28/19 15:15 03/12/19 23:48 8 MG Lab Laboratory Tests Test 03/17/19 13:50 03/17/19 18:23 03/17/19 21:00 03/18/19 00:32 Glucose (Fingerstick) 275 mg/dL (70-99) 263 mg/dL (70-99) 233 mg/dL (70-99) 227 mg/dL (70-99) Test 03/18/19 05:30 03/18/19 05:43 03/18/19 09:00 White Blood Count 8.9 x10^3/uL (4.0-11.0) Red Blood Count 3.69 x10^6/uL (4.30-5.70) Hemoglobin 11.1 g/dL (13.0-17.5) Hematocrit 35.1 % (39.0-53.0) Mean Corpuscular Volume 95 fL (79-100) Mean Corpuscular Hemoglobin 30 pg (25-35) Mean Corpuscular Hemoglobin Concent 32 g/dL (31-37) Red Cell Distribution Width 15.0 % (11.5-14.5) Platelet Count 569 x10^3/uL (140-400) Neutrophils (%) (Auto) 73 % (31-73) Lymphocytes (%) (Auto) 15 % (24-48) Monocytes (%) (Auto) 8 % (0-9) Eosinophils (%) (Auto) 3 % (0-3) Basophils (%) (Auto) 1 % (0-3) Neutrophils # (Auto) 6.5 x10^3uL (1.8-7.7) Lymphocytes # (Auto) 1.4 x10^3/uL (1.0-4.8) Monocytes # (Auto) 0.7 x10^3/uL (0.0-1.1) Eosinophils # (Auto) 0.3 x10^3/uL (0.0-0.7) Basophils # (Auto) 0.1 x10^3/uL (0.0-0.2) Sodium Level 150 mmol/L (136-145) Potassium Level 4.1 mmol/L (3.5-5.1) Chloride Level 111 mmol/L (98-107) Carbon Dioxide Level 32 mmol/L (21-32) Anion Gap 7 (6-14) Blood Urea Nitrogen 74 mg/dL (8-26) Creatinine 1.6 mg/dL (0.7-1.3) Estimated GFR (Cockcroft-Gault) 44.9 Glucose Level 248 mg/dL (70-99) Calcium Level 8.8 mg/dL (8.5-10.1) Glucose (Fingerstick) 240 mg/dL (70-99) O2 Saturation 95 % (92-99) Arterial Blood pH 7.45 (7.35-7.45) Arterial Blood pCO2 at Patient Temp 50 mmHg (35-46) Arterial Blood pO2 at Patient Temp 76 mmHg (75-108) Arterial Blood HCO3 34 mmol/L (21-28) Arterial Blood Base Excess 9 mmol/L (-3-3) FiO2 95 Results All relevant outside records, renal labs, imaging studies, telemetry/EKG's were reviewed. GALO AMBRIZ MD Mar 18, 2019 10:28
--- NOTE | 2019-03-18 10:43 | PDOC ---
PULMONARY PROGRESS NOTES Subjective ON AC MODE SEDATED on versed, fentanyl, propofol 90% FIO2/16 PEEP, small ett secretion worsening cxr Vitals Vital Signs Date Time Temp Pulse Resp B/P (MAP) Pulse Ox O2 Delivery O2 Flow Rate FiO2 03/18/19 09:55 97 Ventilator 03/18/19 08:00 96.0 03/18/19 06:00 66 22 126/66 (86) 03/18/19 04:00 98.5 98.5 Comments ros as mentioned as above discussed w rn, rt, other sys otherwise neg on vent sedated HEENT: Other (nc at perrl nose clear orally intubated neck no lad, no thyromegaly) Lungs: Other (decrease bs) Cardiovascular: S1, S2, Other (decrease bs) Abdomen: Soft, Non-tender, Other (OBESE no mass) Extremities: Other (venous stasis and edema left, right BKA) Skin: Warm Labs Laboratory Tests Test 03/16/19 11:51 03/16/19 18:41 03/16/19 20:43 03/17/19 00:26 Glucose (Fingerstick) 287 mg/dL (70-99) 339 mg/dL (70-99) 316 mg/dL (70-99) 318 mg/dL (70-99) Test 03/17/19 05:15 03/17/19 05:18 03/17/19 08:00 03/17/19 08:29 Sodium Level 149 mmol/L (136-145) Potassium Level 4.9 mmol/L (3.5-5.1) Chloride Level 109 mmol/L (98-107) Carbon Dioxide Level 33 mmol/L (21-32) Anion Gap 7 (6-14) Blood Urea Nitrogen 82 mg/dL (8-26) Creatinine 1.9 mg/dL (0.7-1.3) Estimated GFR (Cockcroft-Gault) 36.9 Glucose Level 350 mg/dL (70-99) Calcium Level 8.8 mg/dL (8.5-10.1) Phosphorus Level 4.7 mg/dL (2.6-4.7) Albumin 1.8 g/dL (3.4-5.0) Glucose (Fingerstick) 333 mg/dL (70-99) 321 mg/dL (70-99) O2 Saturation 97 % (92-99) Arterial Blood pH 7.44 (7.35-7.45) Arterial Blood pCO2 at Patient Temp 52 mmHg (35-46) Arterial Blood pO2 at Patient Temp 99 mmHg (75-108) Arterial Blood HCO3 34 mmol/L (21-28) Arterial Blood Base Excess 8 mmol/L (-3-3) FiO2 100 Test 03/17/19 13:50 03/17/19 18:23 03/17/19 21:00 03/18/19 00:32 Glucose (Fingerstick) 275 mg/dL (70-99) 263 mg/dL (70-99) 233 mg/dL (70-99) 227 mg/dL (70-99) Test 03/18/19 05:30 03/18/19 05:43 03/18/19 09:00 White Blood Count 8.9 x10^3/uL (4.0-11.0) Red Blood Count 3.69 x10^6/uL (4.30-5.70) Hemoglobin 11.1 g/dL (13.0-17.5) Hematocrit 35.1 % (39.0-53.0) Mean Corpuscular Volume 95 fL (79-100) Mean Corpuscular Hemoglobin 30 pg (25-35) Mean Corpuscular Hemoglobin Concent 32 g/dL (31-37) Red Cell Distribution Width 15.0 % (11.5-14.5) Platelet Count 569 x10^3/uL (140-400) Neutrophils (%) (Auto) 73 % (31-73) Lymphocytes (%) (Auto) 15 % (24-48) Monocytes (%) (Auto) 8 % (0-9) Eosinophils (%) (Auto) 3 % (0-3) Basophils (%) (Auto) 1 % (0-3) Neutrophils # (Auto) 6.5 x10^3uL (1.8-7.7) Lymphocytes # (Auto) 1.4 x10^3/uL (1.0-4.8) Monocytes # (Auto) 0.7 x10^3/uL (0.0-1.1) Eosinophils # (Auto) 0.3 x10^3/uL (0.0-0.7) Basophils # (Auto) 0.1 x10^3/uL (0.0-0.2) Sodium Level 150 mmol/L (136-145) Potassium Level 4.1 mmol/L (3.5-5.1) Chloride Level 111 mmol/L (98-107) Carbon Dioxide Level 32 mmol/L (21-32) Anion Gap 7 (6-14) Blood Urea Nitrogen 74 mg/dL (8-26) Creatinine 1.6 mg/dL (0.7-1.3) Estimated GFR (Cockcroft-Gault) 44.9 Glucose Level 248 mg/dL (70-99) Calcium Level 8.8 mg/dL (8.5-10.1) Glucose (Fingerstick) 240 mg/dL (70-99) O2 Saturation 95 % (92-99) Arterial Blood pH 7.45 (7.35-7.45) Arterial Blood pCO2 at Patient Temp 50 mmHg (35-46) Arterial Blood pO2 at Patient Temp 76 mmHg (75-108) Arterial Blood HCO3 34 mmol/L (21-28) Arterial Blood Base Excess 9 mmol/L (-3-3) FiO2 95 Laboratory Tests Test 03/17/19 13:50 03/17/19 18:23 03/17/19 21:00 03/18/19 00:32 Glucose (Fingerstick) 275 mg/dL (70-99) 263 mg/dL (70-99) 233 mg/dL (70-99) 227 mg/dL (70-99) Test 03/18/19 05:30 03/18/19 05:43 03/18/19 09:00 White Blood Count 8.9 x10^3/uL (4.0-11.0) Red Blood Count 3.69 x10^6/uL (4.30-5.70) Hemoglobin 11.1 g/dL (13.0-17.5) Hematocrit 35.1 % (39.0-53.0) Mean Corpuscular Volume 95 fL (79-100) Mean Corpuscular Hemoglobin 30 pg (25-35) Mean Corpuscular Hemoglobin Concent 32 g/dL (31-37) Red Cell Distribution Width 15.0 % (11.5-14.5) Platelet Count 569 x10^3/uL (140-400) Neutrophils (%) (Auto) 73 % (31-73) Lymphocytes (%) (Auto) 15 % (24-48) Monocytes (%) (Auto) 8 % (0-9) Eosinophils (%) (Auto) 3 % (0-3) Basophils (%) (Auto) 1 % (0-3) Neutrophils # (Auto) 6.5 x10^3uL (1.8-7.7) Lymphocytes # (Auto) 1.4 x10^3/uL (1.0-4.8) Monocytes # (Auto) 0.7 x10^3/uL (0.0-1.1) Eosinophils # (Auto) 0.3 x10^3/uL (0.0-0.7) Basophils # (Auto) 0.1 x10^3/uL (0.0-0.2) Sodium Level 150 mmol/L (136-145) Potassium Level 4.1 mmol/L (3.5-5.1) Chloride Level 111 mmol/L (98-107) Carbon Dioxide Level 32 mmol/L (21-32) Anion Gap 7 (6-14) Blood Urea Nitrogen 74 mg/dL (8-26) Creatinine 1.6 mg/dL (0.7-1.3) Estimated GFR (Cockcroft-Gault) 44.9 Glucose Level 248 mg/dL (70-99) Calcium Level 8.8 mg/dL (8.5-10.1) Glucose (Fingerstick) 240 mg/dL (70-99) O2 Saturation 95 % (92-99) Arterial Blood pH 7.45 (7.35-7.45) Arterial Blood pCO2 at Patient Temp 50 mmHg (35-46) Arterial Blood pO2 at Patient Temp 76 mmHg (75-108) Arterial Blood HCO3 34 mmol/L (21-28) Arterial Blood Base Excess 9 mmol/L (-3-3) FiO2 95 Medications Active Scripts Medications Dose Route/Sig Max Daily Dose Days Date Category Proair Hfa Inhaler (Albuterol Sulfate) 8.5 Gm Hfa.aer.ad 1 Puff INH PRN Q6HRS PRN 02/27/19 Reported Lantus Solostar (Insulin Glargine,Hum.rec.anlog) 100 Unit/1 Ml Insuln.pen 20 Unit SQ QHS 02/27/19 Reported Humalog (Insulin Lispro) 100 Unit/1 Ml Cartridge 6 Unit SQ TIDWMEALS 02/27/19 Reported Doxazosin Mesylate 2 Mg Tablet 2 Mg PO DAILY 02/27/19 Reported Omeprazole 40 Mg Capsule.dr 40 Mg PO DAILY 02/27/19 Reported Amlodipine Besylate 10 Mg Tablet 10 Mg PO DAILY 02/27/19 Reported Atorvastatin Calcium 20 Mg Tablet 20 Mg PO DAILY 02/27/19 Reported Atenolol 50 Mg Tablet 50 Mg PO DAILY 02/27/19 Reported Losartan Potassium 100 Mg Tablet 100 Mg PO DAILY 02/27/19 Reported Aspirin 81 Mg Tab.chew 81 Mg PO DAILY 02/27/19 Reported Glyburide 5 Mg Tablet 1 Tab PO BID 11/09/16 Reported Comments CXR REVIEWED 03/18 worsening infiltrates, right effusion Impression . 1. Acute hypoxemic /hypercapnic respiratory failure./ ARDS 2. sepsis./ ARDS 3. In-house cardiopulmonary arrest. 4. Normal EF / mild Pulmonary HTN 5. Acute on chronic right-sided heart failure. 6. Possible pneumonia. 7. Morbid obesity. 8. Diabetes. 9. ANASARCA 10. Abnormal CXR/ susperimposed CHF right effusion 03/18 11. Increasing azotemia <Conclusion>ECHO The left ventricular systolic function is normal. The ejection fraction is 60-65%. There is normal LV segmental wall motion. Transmitral Doppler flow pattern is Grade I-abnormal relaxation pattern. Trace tricuspid regurgitation. Estimated PAP 33-38 mmHg. There is no evidence of significant pericardial effusion. VENOUS 02/28 Impression: 1. There is no evidence of deep venous thrombosis from the bilateral common femoral to popliteal veins. 2. There is nonspecific right groin lymph node. Plan . AC MODE ,16 PEEP AND 90% FI02, cont vent support, setting reviewed, Wean FIO2 today CXR f/u ANITBX PER ID Increase lasix dose , monitor k, cr bilateral venous Dopplers of lower extremities.NEG DVT and GI prophylaxis. Follow Cardiology.rec Enteral nutrition am abg, cxr elevate hob discussed w rn, rt DNR Overall Prognosis grim . d/w sister/ Daughter . They understand critical illness. Will continue current aggressive care. If gets worse, will consider comfort care. Not stable for tracheostomy ALEJANDRINA WILBURN MD Mar 18, 2019 10:43
[2019-03-18] MEDS ORDERED: FUROSEMIDE 100 MG/10 ML VIAL. IVP ONE (10:54)
[2019-03-18] MEDS ORDERED: DIGOXIN IV 500 MCG/2 ML AMPUL. IV ONE ×2 (15:30→20:00)
[2019-03-18] MEDS: MIDAZOLAM 100mg/100ml NS BAG 100 ML IV PRN (19:34)
[2019-03-18] MEDS: FUROSEMIDE 40 MG/4 ML VIAL. IVP SCH (20:44)
[2019-03-19] VITALS (24 sets, daily range): BP systolic 106–145; BP diastolic 59–79
[2019-03-19] MEDS: INSULIN LISPRO 300 UNITS/3 ML INSULN.PEN. SQ SCH ×8 (00:10→17:25)
[2019-03-19] MEDS: PROPOFOL 100 ML IV PRN ×4 (05:16→21:18)
[2019-03-19] MEDS: dilTIAZem HCL 30 MG TABLET PO SCH ×3 (06:09→17:08)
[2019-03-19] MEDS: HEPARIN for SUB-Q USE 5,000 UNIT/ML VIAL. SQ SCH ×3 (06:11→21:20)
[2019-03-19] MEDS: FUROSEMIDE 40 MG/4 ML VIAL. IVP SCH ×3 (06:12→21:18)
[2019-03-19] MEDS: METOPROLOL TARTRATE 5 MG/5 ML VIAL. IVP SCH ×3 (06:13→17:09)
[2019-03-19] MEDS: IPRATRPIUM/ALBUTEROL 0.5/2.5MG 3 ML NEBU. NEB SCH ×4 (07:22→20:25)
[2019-03-19 07:38] LABS: BASE EXCESS ABG 6 mmol/L (-3-3); HCO3 ABG 32 mmol/L (21-28); PCO2 ABG 51 mmHg (35-46); PO2 ABG 104 mmHg (75-108); SAT O2 ABG 97 % (92-99)
[2019-03-19 07:43] LABS: FIO2 ABG 90
--- NOTE | 2019-03-19 08:00 | PDOC ---
Infectious Disease Note Subjective: Subjective Pt remains intubated and sedated, no fevers D/W RN ROS: ROS Negative except for above. Vital Signs: Vital Signs Vital Signs Date Time Temp Pulse Resp B/P (MAP) Pulse Ox O2 Delivery O2 Flow Rate FiO2 03/19/19 07:22 96 Ventilator 03/19/19 06:20 22 03/19/19 06:13 87 131/69 03/19/19 04:00 99.4 99.4 03/18/19 16:00 96.0 Physical Exam: PHYSICAL EXAM GENERAL: Sedated and intubated. HEENT: PERRL, ETT. OGT NECK: Supple. LUNGS: Decreased in bases HEART: S1, S2. 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 RLE stump with chronic wound. No erythema/ fluctuance/warmth. no cyanosis SKIN: Warm to touch. 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 groin - fading [employer]: Sedated on vent RUE-PICC (03/09) clean Medications: Inpatient Meds: Current Medications Medications (Trade) Dose Ordered Sig/Lual Start Time Stop Time Status Last Admin Dose Admin Acetaminophen (Tylenol Supp) 650 mg PRN Q6HRS PRN 03/02/19 17:15 03/03/19 17:39 650 MG Acetaminophen (Tylenol) 650 mg PRN Q6HRS PRN 03/04/19 11:45 03/10/19 20:48 650 MG Albumin Human 100 ml @ 100 mls/hr 1X ONCE 03/03/19 08:30 03/03/19 09:29 DC 03/03/19 08:52 100 MLS/HR Albuterol Sulfate (Ventolin Neb Soln) 2.5 mg 1X ONCE 03/16/19 04:00 03/16/19 04:01 DC 03/16/19 04:00 2.5 MG Albuterol/ Ipratropium (Duoneb) 3 ml RTQID 02/28/19 16:00 03/19/19 07:22 3 ML Alteplase, Recombinant (Cathflo For Central Catheter Clearance) 1 mg 1X ONCE 03/18/19 07:30 03/18/19 07:31 DC 03/18/19 13:26 1 MG Aspirin (Aspirin) 300 mg DAILY 02/28/19 09:00 02/28/19 09:42 DC Aspirin (Children'S Aspirin) 81 mg [id number] 03/07/19 08:00 03/18/19 08:32 81 MG Atropine Sulfate (ATROPINE 0.5mg SYRINGE) 2 mg STK-MED ONCE 02/27/19 16:21 03/03/19 16:22 DC Azithromycin 250 mg/Sodium Chloride 250 ml @ 250 mls/hr Q24H 03/18/19 08:00 03/18/19 08:48 250 MLS/HR Calcium Chloride 1000 mg/Dextrose 60 ml @ 120 mls/hr 1X ONCE 02/28/19 10:30 02/28/19 10:59 DC 02/28/19 11:03 120 MLS/HR Cefepime HCl (Maxipime) 2 gm Q12HR 03/10/19 21:00 03/18/19 20:44 2 GM Ceftriaxone Sodium (Rocephin) 1 gm Q24H 02/28/19 11:00 02/28/19 11:18 DC 02/28/19 11:03 1 GM Dextrose (Dextrose 50%-Water Syringe) 12.5 gm PRN Q15MIN PRN 03/09/19 17:15 Digoxin (Lanoxin) 500 mcg 1X ONCE 03/18/19 20:00 03/18/19 20:01 DC 03/18/19 19:35 500 MCG Diltiazem HCl (Cardizem) 30 mg Q6HRS 03/12/19 12:00 03/19/19 06:09 30 MG Diltiazem HCl 125 mg/Dextrose 125 ml @ 5 mls/hr CONT PRN 03/06/19 23:00 03/12/19 11:03 DC 03/12/19 08:20 5 MLS/HR Dopamine HCl/ Dextrose (DOPamine 400MG/ 250ML PREMIX) 400 mg STK-MED ONCE 02/27/19 16:21 03/03/19 16:22 DC Etomidate (Amidate) 20 mg STK-MED ONCE 02/28/19 06:59 02/28/19 07:00 DC Famotidine (Pepcid Vial) 20 mg Q12HR 03/02/19 21:00 03/18/19 20:45 20 MG Fentanyl Citrate 30 ml @ 0 mls/hr CONT PRN 03/05/19 04:45 03/19/19 05:48 5 MLS/HR Fentanyl Citrate (Fentanyl 2ml Vial) 25 mcg PRN Q30MIN PRN 02/28/19 07:45 02/28/19 09:42 DC Furosemide (Lasix) 40 mg Q8HRS 03/18/19 20:00 03/19/19 06:12 40 MG Haloperidol Lactate (Haldol Inj) 5 mg PRN Q6HRS PRN 02/28/19 15:15 03/09/19 14:07 5 MG Heparin Sodium (Porcine) (Heparin Sodium) 5,000 unit Q8HRS 02/27/19 17:00 03/19/19 06:11 5,000 UNIT Info (Icu Electrolyte Protocol) 1 ea DAILY PRN 03/02/19 07:45 03/02/19 07:45 DC Insulin Glargine (Lantus) 25 units BID 03/17/19 21:00 03/18/19 21:26 25 UNITS Insulin Human Lispro (HumaLOG) 3 units Q6HRS 03/17/19 18:00 03/19/19 06:12 3 UNITS Labetalol HCl (Normodyne Iv Push) 20 mg PRN Q2HR PRN 03/06/19 17:15 03/06/19 21:29 20 MG Linezolid/Dextrose 300 ml @ 300 mls/hr Q12HR 03/05/19 09:00 03/06/19 06:42 DC 03/05/19 21:24 300 MLS/HR Lorazepam (Ativan) 1 mg PRN Q30MIN PRN 02/28/19 07:45 02/28/19 09:42 DC Lorazepam 100 mg/ Sodium Chloride 100 ml @ 0 mls/hr CONT PRN 03/03/19 22:00 03/17/19 15:39 DC 03/03/19 22:18 1 MLS/HR Meperidine HCl (Demerol) 12.5 mg PRN Q30MIN PRN 02/28/19 07:45 02/28/19 09:42 DC Meropenem 500 mg/ Sodium Chloride 50 ml @ 100 mls/hr Q6HRS 03/03/19 12:00 03/05/19 06:47 DC 03/05/19 05:33 100 MLS/HR Methylprednisolone Sodium Succinate (SOLU-Medrol 40MG VIAL) 80 mg 1X ONCE 03/16/19 04:30 03/16/19 04:31 DC 03/16/19 04:17 80 MG Metoclopramide HCl (Reglan Vial) 10 mg Q6HRS 03/07/19 08:00 03/08/19 07:51 DC Metoprolol Tartrate (Lopressor Vial) 5 mg Q6HRS 03/08/19 12:00 03/19/19 06:13 5 MG Metronidazole 100 ml @ 100 mls/hr Q8HRS 03/05/19 06:45 03/10/19 08:29 DC 03/10/19 05:45 100 MLS/HR Micafungin Sodium 100 mg/Dextrose 100 ml @ 100 mls/hr Q24H 02/28/19 12:00 03/05/19 06:47 DC 03/04/19 15:53 100 MLS/HR Midazolam HCl 100 ml @ 0 mls/hr CONT PRN 02/28/19 07:15 03/18/19 19:34 5 MLS/HR Morphine Sulfate (Morphine Sulfate) 2 mg PRN Q2HR PRN 02/27/19 16:45 02/28/19 16:44 DC Multi-Ingred Cream/Lotion/Oil/ Oint (Artificial Tears Eye Ointment) 1 jennifer PRN Q6HRS PRN 02/28/19 07:45 02/28/19 09:42 DC Nystatin (Mycostatin) 1 jennifer BID 03/06/19 09:00 03/18/19 21:26 1 JENNIFER Ondansetron HCl (Zofran) 4 mg PRN Q8HRS PRN 02/27/19 16:45 02/28/19 16:44 DC Perflutren Protein Type A Microsphe (Optison) 0.66 mg PRN 1X PRN 03/01/19 10:00 03/02/19 09:59 DC Propofol 100 ml @ 0 mls/hr CONT PRN 02/28/19 07:45 03/19/19 05:16 18.5 MLS/HR Rocuronium [place] (Zemuron) 50 mg STK-MED ONCE 02/28/19 07:00 02/28/19 09:42 DC Sodium Chloride 500 ml @ 500 mls/hr 1X ONCE 03/06/19 00:45 03/06/19 01:44 DC 03/06/19 00:49 500 MLS/HR Sodium Chloride (Normal Saline Flush) 3 ml QSHIFT PRN 02/28/19 07:45 Sodium Cl/Sod Bicarb/Potass Cl/ PEG (Golytely) 2,000 ml 1X ONCE 03/06/19 08:00 03/06/19 08:01 DC 03/06/19 09:33 2,000 ML Vecuronium [place] (Norcuron Bolus) 8 mg PRN Q4HRS PRN 02/28/19 15:15 03/12/19 23:48 8 MG Labs: Lab Laboratory Tests Test 03/18/19 08:56 03/18/19 09:00 03/18/19 11:11 03/18/19 17:24 Glucose (Fingerstick) 226 mg/dL (70-99) 245 mg/dL (70-99) 225 mg/dL (70-99) O2 Saturation 95 % (92-99) Arterial Blood pH 7.45 (7.35-7.45) Arterial Blood pCO2 at Patient Temp 50 mmHg (35-46) Arterial Blood pO2 at Patient Temp 76 mmHg (75-108) Arterial Blood HCO3 34 mmol/L (21-28) Arterial Blood Base Excess 9 mmol/L (-3-3) FiO2 95 Test 03/18/19 21:21 03/18/19 23:50 03/19/19 06:07 03/19/19 07:30 Glucose (Fingerstick) 211 mg/dL (70-99) 215 mg/dL (70-99) 265 mg/dL (70-99) O2 Saturation 97 % (92-99) Arterial Blood pH 7.42 (7.35-7.45) Arterial Blood pCO2 at Patient Temp 51 mmHg (35-46) Arterial Blood pO2 at Patient Temp 104 mmHg (75-108) Arterial Blood HCO3 32 mmol/L (21-28) Arterial Blood Base Excess 6 mmol/L (-3-3) FiO2 90 Test 03/19/19 07:40 Glucose (Fingerstick) 279 mg/dL (70-99) Objective: Assessment: Fever resolved Flank rash - no Eosinophilia but ? drug - had been on micafungin so less likely yeast, better Tachycardia - s/p Bolus/Digoxin and Metoprolol Increased GI residuals - Has been on/off ? 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 Status post code. Fluid overload ,CHF Acute kidney injury, improving Distant history of group B strep, Acinetobacter, Porphyromonas, plus anaerobes. Plan: Plan of Care Cefepime Nystatin Cultures NGTD Supportive care D/W RN Prognosis poor VIVIAN RAMIREZ MD Mar 19, 2019 08:00
[2019-03-19] MEDS: FAMOTIDINE 20 MG/2 ML VIAL IVP SCH ×2 (08:02→21:18)
[2019-03-19] MEDS: ASPIRIN CHEWABLE 81 MG TABLET. PO SCH (08:03)
[2019-03-19] MEDS: CEFEPIME HCL IV Push 2 GM VIAL. IVP SCH ×2 (08:03→21:19)
[2019-03-19] MEDS: INSULIN GLARGINE 300 UNITS/3 ML INSULN.PEN. SQ SCH ×2 (08:04→21:21)
--- NOTE | 2019-03-19 08:28 | PDOC ---
PROGRESS NOTES Chief Complaint Chief Complaint Acute respiratory failure secondary to congestive heart failure, most probably acute on chronic diastolic. s/p intubation. Myocardial infarction ruled out. Hypernatremia secondary to severe dehydration will need to provide water flushes in order to correct electrolyte disturbance. High residuals on tube feedings no evidence of obstructive pattern on x ray done 03/05/2019 3 weeks of bilateral general scrotal swelling and tenderness. +dyspnea, abd swelling, leg swelling. POA, Dm2 obesity, extreme, morbid hx RLE BKA RLE stump with chronic wound. No erythema/warmth left foot nail onychomycosis needs attention when more clinically stable Acute renal failure ATN Renal CONSULT 3.1-1.8 chronic venous insuff left lower leg nonspecific perinephric stranding with slight asymmetric stranding adjacent to the left renal pelvis. Findings may be due to chronic kidney disease, though ascending urinary tract infection is not excluded. Bilateral lower lobe consolidation concerning for multifocal pneumonia aspiration not excluded. Right renal hypodensity measuring 2.5 cm is incompletely evaluated on noncontrast examination. Follow-up MRI or CT abdomen and pelvis renal protocol with contrast is recommended for further evaluation. Anasarca. bilateral external iliac lymphadenopathy, may be reactive, though follow-up CT abdomen and pelvis in 3 months is recommended to assess for stability/resolution. Nonobstructive left nephrolithiasis. Coronary artery calcifications. The left ventricular systolic function is normal.ejection fraction is 60-65% .normal LV segmental wall motion. Transmitral Doppler flow pattern is Grade I-abnormal relaxation pattern. Trace tricuspid regurgitation. Estimated PAP 33-38 mmHg. History of Present Illness History of Present Illness Continue with supportive measures ventilatory support - on 100% oxygen and 16 of PEEP, poor prognosis, Dr Vinson will address on Saturday if patient does not have improvement, he has been on support for over 10 days now paO2 104 on PEEP 16 and 90% FiO2, a bit better than yesterday, has UOP as well and Cr was better today from 1.9-->1.6. Daughter arrived and is not currently bedside. Glucose climbing into mid 200s despite insulin regimen Plan: follow recommendations from technology sales consultant. UROLOGY CONSULT reviewed no intervention needed except for elevation and diuresis ID CONSULTED - continue with antibiotic as per ID Cont ARDS treatment. Is better than yesterday, but only incrementally so. Increase glycemic control Vitals Vitals Vital Signs Date Time Temp Pulse Resp B/P (MAP) Pulse Ox O2 Delivery O2 Flow Rate FiO2 03/19/19 07:22 96 Ventilator 03/19/19 06:20 22 03/19/19 06:13 87 131/69 03/19/19 04:00 99.4 99.4 03/18/19 16:00 96.0 Physical Exam Physical Exam GENERAL: Sedated and intubated. HEENT: PERRL, ETT. OGT NECK: Supple. LUNGS: Decreased in bases HEART: S1, S2. 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 RLE stump with chronic wound. No erythema/ fluctuance/warmth. no cyanosis SKIN: Warm to touch. 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: Sedated on vent RUE-PICC (03/09) clean General: Other (intubated.) Heart: Regular rate Lungs: Other (decrease bs) Abdomen: Normal bowel sounds Extremities: No cyanosis, Other (ANASARCA) Skin: Other (scale, lower leg ) Labs LABS Laboratory Tests Test 03/18/19 08:56 03/18/19 09:00 03/18/19 11:11 03/18/19 17:24 Glucose (Fingerstick) 226 mg/dL (70-99) 245 mg/dL (70-99) 225 mg/dL (70-99) O2 Saturation 95 % (92-99) Arterial Blood pH 7.45 (7.35-7.45) Arterial Blood pCO2 at Patient Temp 50 mmHg (35-46) Arterial Blood pO2 at Patient Temp 76 mmHg (75-108) Arterial Blood HCO3 34 mmol/L (21-28) Arterial Blood Base Excess 9 mmol/L (-3-3) FiO2 95 Test 03/18/19 21:21 03/18/19 23:50 03/19/19 06:07 03/19/19 07:30 Glucose (Fingerstick) 211 mg/dL (70-99) 215 mg/dL (70-99) 265 mg/dL (70-99) O2 Saturation 97 % (92-99) Arterial Blood pH 7.42 (7.35-7.45) Arterial Blood pCO2 at Patient Temp 51 mmHg (35-46) Arterial Blood pO2 at Patient Temp 104 mmHg (75-108) Arterial Blood HCO3 32 mmol/L (21-28) Arterial Blood Base Excess 6 mmol/L (-3-3) FiO2 90 Test 03/19/19 07:40 Glucose (Fingerstick) 279 mg/dL (70-99) Assessment and Plan Assessmemt and Plan Problems Medical Problems: (1) Acute renal failure Status: Acute (2) Edema Status: Acute (3) Shortness of breath Status: Acute Comment Review of Relevant I have reviewed the following items pascual (where applicable) has been applied. Labs Laboratory Tests Test 03/17/19 08:29 03/17/19 13:50 03/17/19 18:23 03/17/19 21:00 Glucose (Fingerstick) 321 mg/dL (70-99) 275 mg/dL (70-99) 263 mg/dL (70-99) 233 mg/dL (70-99) Test 03/18/19 00:32 03/18/19 05:30 03/18/19 05:43 03/18/19 08:56 Glucose (Fingerstick) 227 mg/dL (70-99) 240 mg/dL (70-99) 226 mg/dL (70-99) White Blood Count 8.9 x10^3/uL (4.0-11.0) Red Blood Count 3.69 x10^6/uL (4.30-5.70) Hemoglobin 11.1 g/dL (13.0-17.5) Hematocrit 35.1 % (39.0-53.0) Mean Corpuscular Volume 95 fL (79-100) Mean Corpuscular Hemoglobin 30 pg (25-35) Mean Corpuscular Hemoglobin Concent 32 g/dL (31-37) Red Cell Distribution Width 15.0 % (11.5-14.5) Platelet Count 569 x10^3/uL (140-400) Neutrophils (%) (Auto) 73 % (31-73) Lymphocytes (%) (Auto) 15 % (24-48) Monocytes (%) (Auto) 8 % (0-9) Eosinophils (%) (Auto) 3 % (0-3) Basophils (%) (Auto) 1 % (0-3) Neutrophils # (Auto) 6.5 x10^3uL (1.8-7.7) Lymphocytes # (Auto) 1.4 x10^3/uL (1.0-4.8) Monocytes # (Auto) 0.7 x10^3/uL (0.0-1.1) Eosinophils # (Auto) 0.3 x10^3/uL (0.0-0.7) Basophils # (Auto) 0.1 x10^3/uL (0.0-0.2) Sodium Level 150 mmol/L (136-145) Potassium Level 4.1 mmol/L (3.5-5.1) Chloride Level 111 mmol/L (98-107) Carbon Dioxide Level 32 mmol/L (21-32) Anion Gap 7 (6-14) Blood Urea Nitrogen 74 mg/dL (8-26) Creatinine 1.6 mg/dL (0.7-1.3) Estimated GFR (Cockcroft-Gault) 44.9 Glucose Level 248 mg/dL (70-99) Calcium Level 8.8 mg/dL (8.5-10.1) Test 03/18/19 09:00 03/18/19 11:11 03/18/19 17:24 03/18/19 21:21 O2 Saturation 95 % (92-99) Arterial Blood pH 7.45 (7.35-7.45) Arterial Blood pCO2 at Patient Temp 50 mmHg (35-46) Arterial Blood pO2 at Patient Temp 76 mmHg (75-108) Arterial Blood HCO3 34 mmol/L (21-28) Arterial Blood Base Excess 9 mmol/L (-3-3) FiO2 95 Glucose (Fingerstick) 245 mg/dL (70-99) 225 mg/dL (70-99) 211 mg/dL (70-99) Test 03/18/19 23:50 03/19/19 06:07 03/19/19 07:30 03/19/19 07:40 Glucose (Fingerstick) 215 mg/dL (70-99) 265 mg/dL (70-99) 279 mg/dL (70-99) O2 Saturation 97 % (92-99) Arterial Blood pH 7.42 (7.35-7.45) Arterial Blood pCO2 at Patient Temp 51 mmHg (35-46) Arterial Blood pO2 at Patient Temp 104 mmHg (75-108) Arterial Blood HCO3 32 mmol/L (21-28) Arterial Blood Base Excess 6 mmol/L (-3-3) FiO2 90 Laboratory Tests Test 03/18/19 08:56 03/18/19 09:00 03/18/19 11:11 03/18/19 17:24 Glucose (Fingerstick) 226 mg/dL (70-99) 245 mg/dL (70-99) 225 mg/dL (70-99) O2 Saturation 95 % (92-99) Arterial Blood pH 7.45 (7.35-7.45) Arterial Blood pCO2 at Patient Temp 50 mmHg (35-46) Arterial Blood pO2 at Patient Temp 76 mmHg (75-108) Arterial Blood HCO3 34 mmol/L (21-28) Arterial Blood Base Excess 9 mmol/L (-3-3) FiO2 95 Test 03/18/19 21:21 03/18/19 23:50 03/19/19 06:07 03/19/19 07:30 Glucose (Fingerstick) 211 mg/dL (70-99) 215 mg/dL (70-99) 265 mg/dL (70-99) O2 Saturation 97 % (92-99) Arterial Blood pH 7.42 (7.35-7.45) Arterial Blood pCO2 at Patient Temp 51 mmHg (35-46) Arterial Blood pO2 at Patient Temp 104 mmHg (75-108) Arterial Blood HCO3 32 mmol/L (21-28) Arterial Blood Base Excess 6 mmol/L (-3-3) FiO2 90 Test 03/19/19 07:40 Glucose (Fingerstick) 279 mg/dL (70-99) Microbiology 03/05/19 Blood Culture - Final, Complete NO GROWTH AFTER 5 DAYS 03/08/19 - Final, Complete 03/08/19 - Final, Complete 03/08/19 - Final, Complete 03/08/19 Gram Stain Evaluation - Final, Complete 03/08/19 Sputum Culture - Final, Complete 03/08/19 Sputum Result 1 - Final, Complete 03/02/19 Urine Culture - Final, Complete 03/02/19 Urine Culture Result 1 (LUCIO) - Final, Complete 03/09/19 Aerobic Culture - Final, Complete 03/09/19 Aerobic Culture Result 1 (LUCIO) - Final, Complete 03/09/19 Gram Stain - Final, Complete 03/09/19 Gram Stain Result 1 (LUCIO) - Final, Complete 03/09/19 Gram Stain Result 2 (LUCIO) - Final, Complete Medications Current Medications Ondansetron HCl (Zofran) 4 mg PRN Q8HRS PRN IV NAUSEA/VOMITING; Start 02/27/19 at 16:45; Stop 02/28/19 at 16:44; Status DC Morphine Sulfate (Morphine Sulfate) 2 mg PRN Q2HR PRN IV PAIN; Start 02/27/19 at 16:45; Stop 02/28/19 at 16:44; Status DC Acetaminophen (Tylenol) 650 mg PRN Q4HRS PRN PO FEVER Last administered on 02/27at 21:06; Start 02/27/19 at 16:45; Stop 02/28/19 at 16:44; Status DC Dextrose (Dextrose 50%-Water Syringe) 12.5 gm PRN Q15MIN PRN IV SEE COMMENTS; Start 02/27/19 at 16:45; Stop 03/10/19 at 13:48; Status DC Heparin Sodium (Porcine) (Heparin Sodium) 5,000 unit Q8HRS SQ Last administered on 03/19/19at 06:11; Start 02/27/19 at 17:00 Lorazepam (Ativan) 1 mg PRN Q8HRS PRN IV ANXIETY / AGITATION Last administered on 03/08/19at 03:37; Start 02/28/19 at 02:45 Etomidate (Amidate) 20 mg STK-MED ONCE IV ; Start 02/28/19 at 06:59; Stop at 07:00; Status DC Rocuronium Oxford (Zemuron) 50 mg STK-MED ONCE .ROUTE ; Start 02/28/19 at 07:00 ; Stop 02/28/19 at 09:42; Status DC Dopamine HCl/ Dextrose 250 ml @ 12.266 mls/ hr CONT PRN IV SEE I/O RECORD Last administered on 02/28/19at 08:06; Start 02/28/19 at 07:15; Stop 03/17/19 at 15:50; Status DC Fentanyl Citrate 30 ml @ 0 mls/hr CONT PRN IV SEE PROTOCOL; Start 02/28/19 at 07:15; Stop 02/28/19 at 07:59; Status DC Propofol 100 ml @ 0 mls/hr CONT PRN IV SEE PROTOCOL; Start 02/28/19 at 07:15; Stop 02/28/19 at 07:59; Status DC Fentanyl Citrate (Fentanyl 2ml Vial) 25 mcg PRN Q1HR PRN IV SEE COMMENTS; Start 02/28/19 at 07:15; Stop 02/28/19 at 07:59; Status DC Fentanyl Citrate (Fentanyl 2ml Vial) 50 mcg PRN Q1HR PRN IV SEE COMMENTS; Start 02/28/19 at 07:15; Stop 02/28/19 at 07:59; Status DC Midazolam HCl 100 ml @ 0 mls/hr CONT PRN IV SEE PROTOCOL Last administered on at 19:34; Start 02/28/19 at 07:15 Sodium Chloride 1,000 ml @ 1,000 mls/hr Q1H IV Last administered on 02/28/19at 07:32; Start 02/28/19 at 07:32; Stop 02/28/19 at 10:09; Status DC Fentanyl Citrate (Fentanyl 2ml Vial) 25 mcg PRN Q30MIN PRN IV see comments; Start 02/28/19 at 07:45; Stop 02/28/19 at 09:42; Status DC Lorazepam (Ativan) 1 mg PRN Q30MIN PRN IV SEDATION; Start 02/28/19 at 07:45; Stop 02/28/19 at 09:42; Status DC Fentanyl Citrate 30 ml @ 2.5 mls/hr CONT PRN PRN IV SEE I/O RECORD Last administered on 03/05/19at 03:44; Start 02/28/19 at 07:45; Stop 03/05/19 at 04:40; Status DC Propofol 100 ml @ 0 mls/hr CONT PRN IV SEE I/O RECORD Last administered on 03/19at 05:16; Start 02/28/19 at 07:45 Vecuronium Oxford (Norcuron Bolus) 10 mg PRN Q30MIN PRN IV SHIVERING; Start at 07:45; Stop 02/28/19 at 09:42; Status DC Meperidine HCl (Demerol) 12.5 mg PRN Q30MIN PRN IV SHIVERING; Start 02/28/19 at 07:45; Stop 02/28/19 at 09:42; Status DC Multi-Ingred Cream/Lotion/Oil/ Oint (Artificial Tears Eye Ointment) 1 jennifer PRN Q6HRS PRN OU 0.5 INCH FOR DRY EYE; Start 02/28/19 at 07:45; Stop 02/28/19 at 09 :42; Status DC Famotidine (Pepcid Vial) 20 mg BID IVP Last administered on 02/28/19at 11:03; Start 02/28/19 at 09:00; Stop 02/28/19 at 14:25; Status DC Aspirin (Aspirin) 300 mg DAILY LA ; Start 02/28/19 at 09:00; Stop 02/28/19 at 09 :42; Status DC Sodium Chloride (Normal Saline Flush) 3 ml QSHIFT PRN IV AFTER MEDS AND BLOOD DRAWS; Start 02/28/19 at 07:45 Acetaminophen (Tylenol) 650 mg Q6HRS NG ; Start 02/28/19 at 12:00; Stop at 12:00; Status DC Acetaminophen (Tylenol Supp) 650 mg PRN Q6HRS PRN LA MILD PAIN / TEMP; Start at 07:45; Stop 03/01/19 at 07:45; Status DC Acetaminophen (Tylenol) 650 mg PRN Q6HRS PRN NG MILD PAIN / TEMP; Start at 07:45; Stop 03/01/19 at 07:45; Status DC Info (Icu Electrolyte Protocol) 1 ea DAILY PRN MC PER PROTOCOL; Start 03/02/19 at 07:45; Stop 03/02/19 at 07:45; Status DC Furosemide (Lasix) 60 mg 1X ONCE IVP Last administered on 02/28/19at 08:30; Start 02/28/19 at 08:30; Stop 02/28/19 at 08:31; Status DC Ceftriaxone Sodium (Rocephin) 1 gm Q24H IVP Last administered on 02/28/19at 11: 03; Start 02/28/19 at 11:00; Stop 02/28/19 at 11:18; Status DC Calcium Chloride 1000 mg/Dextrose 60 ml @ 120 mls/hr 1X ONCE IV Last administered on 02/28/19at 11:03; Start 02/28/19 at 10:30; Stop 02/28/19 at 10:59 ; Status DC Meropenem 500 mg/ Sodium Chloride 50 ml @ 100 mls/hr Q8HRS IV Last administered on 03/03/19 06:24; Start 02/28/19 at 14:00; Stop 03/03/19 at 07:04; Status DC Linezolid/Dextrose 300 ml @ 300 mls/hr Q12HR IV Last administered on 03/03/19at 20:00; Start 02/28/19 at 11:30; Stop 03/04/19 at 08:55; Status DC Micafungin Sodium 100 mg/Dextrose 100 ml @ 100 mls/hr Q24H IV Last administered on 03/04/19at 15:53; Start 02/28/19 at 12:00; Stop 03/05/19 at 06:47; Status DC Furosemide (Lasix) 40 mg [id number] IVP Last administered on 03/02/19at 14:06; Start 02/28/19 at 14:00; Stop 03/02/19 at 17:02; Status DC Famotidine (Pepcid Vial) 20 mg QHS IVP Last administered on 03/01/19at 21:24; Start 02/28/19 at 21:00; Stop 03/02/19 at 10:07; Status DC Albuterol/ Ipratropium (Duoneb) 3 ml RTQID NEB Last administered on 03/19/19at 07:22; Start 02/28/19 at 16:00 Haloperidol Lactate (Haldol Inj) 5 mg PRN Q6HRS PRN IVP AGITATION 2ND CHOICE Last administered on 03/09/19at 14:07; Start 02/28/19 at 15:15 Vecuronium [place] (Norcuron Bolus) 8 mg PRN Q4HRS PRN IV MUSCLE SPASMS Last administered on 03/12/19at 23:48; Start 02/28/19 at 15:15 Perflutren Protein Type A Microsphe (Optison) 0.66 mg PRN 1X PRN IV SEE COMMENTS; Start 03/01/19 at 10:00; Stop 03/02/19 at 09:59; Status DC Digoxin (Lanoxin) 125 mcg 1X STAT IV ; Start 03/01/19 at 15:34; Stop 03/01/19 at 16:00; Status DC Sodium Chloride 500 ml @ 500 mls/hr 1X ONCE IV Last administered on 18:46; Start 03/01/19 at 18:45; Stop 03/01/19 at 19:44; Status DC Famotidine (Pepcid Vial) 20 mg Q12HR IVP Last administered on 03/19/19at 08:02; Start 03/02/19 at 21:00 Furosemide (Lasix) 40 mg DAILY IVP Last administered on 03/04/19 09:52; Start 03/03/19 at 09:00; Stop 03/04/19 at 12:13; Status DC Acetaminophen (Tylenol Supp) 650 mg PRN Q6HRS PRN LA MILD PAIN / TEMP Last administered on 03/03/19 17:39; Start 03/02/19 at 17:15 Meropenem 500 mg/ Sodium Chloride 50 ml @ 100 mls/hr Q6HRS IV Last administered on 03/05/19 05:33; Start 03/03/19 at 12:00; Stop 03/05/19 at 06:47; Status DC Albumin Human 100 ml @ 100 mls/hr 1X ONCE IV Last administered on 03/03/19 08 :52; Start 03/03/19 at 08:30; Stop 03/03/19 at 09:29; Status DC Atropine Sulfate (ATROPINE 0.5mg SYRINGE) 2 mg STK-MED ONCE .ROUTE ; Start 02/27 at 16:21; Stop 03/03/19 at 16:22; Status DC Dopamine HCl/ Dextrose (DOPamine 400MG/ 250ML PREMIX) 400 mg STK-MED ONCE IV ; Start 02/27/19 at 16:21; Stop 03/03/19 at 16:22; Status DC Furosemide (Lasix) 40 mg 1X ONCE IVP Last administered on 03/03/19 18:46; Start 03/03/19 at 18:45; Stop 03/03/19 at 18:46; Status DC Lorazepam 100 mg/ Sodium Chloride 100 ml @ 0 mls/hr CONT PRN IV SEE PROTOCOL Last administered on 03/03/19at 22:18; Start 03/03/19 at 22:00; Stop 03/17/19 at 15 :39; Status DC Acetaminophen (Tylenol) 650 mg PRN Q6HRS PRN PEG MILD PAIN / TEMP Last administered on 03/10/19 20:48; Start 03/04/19 at 11:45 Furosemide (Lasix) 40 mg BID92 IVP Last administered on 03/06/19 08:38; Start 03/04/19 at 14:00; Stop 03/06/19 at 13:30; Status DC Fentanyl Citrate 30 ml @ 0 mls/hr CONT PRN IV SEE PROTOCOL Last administered on 03/19/19 05:48; Start 03/05/19 at 04:45 Cefepime HCl (Maxipime) 2 gm Q8HRS IVP Last administered on 03/10/19 05:43; Start 03/05/19 at 06:45; Stop 03/10/19 at 08:29; Status DC Metronidazole 100 ml @ 100 mls/hr Q8HRS IV Last administered on 03/10/19 05:45 ; Start 03/05/19 at 06:45; Stop 03/10/19 at 08:29; Status DC Linezolid/Dextrose 300 ml @ 300 mls/hr Q12HR IV Last administered on 03/05/19 21:24; Start 03/05/19 at 09:00; Stop 03/06/19 at 06:42; Status DC Metoclopramide HCl (Reglan Vial) 10 mg QIDACHS IV Last administered on 20:43; Start 03/05/19 at 11:30; Stop 03/07/19 at 07:37; Status DC Insulin Glargine (Lantus) 12 units BID SQ Last administered on 03/09/19 09:29; Start 03/05/19 at 09:00; Stop 03/09/19 at 17:11; Status DC Digoxin (Lanoxin) 500 mcg 1X ONCE IV Last administered on 03/06/19 00:48; Start 03/06/19 at 00:45; Stop 03/06/19 at 00:46; Status DC Metoprolol Tartrate (Lopressor Vial) 5 mg 1X ONCE IVP Last administered on 03/06 00:53; Start 03/06/19 at 00:45; Stop 03/06/19 at 00:46; Status DC Sodium Chloride 500 ml @ 500 mls/hr 1X ONCE IV Last administered on 03/06/19 00:49; Start 03/06/19 at 00:45; Stop 03/06/19 at 01:44; Status DC Nystatin (Mycostatin) 1 jennifer BID TP Last administered on 03/18/19at 21:26; Start 03/06/19 at 09:00 Sodium Cl/Sod Bicarb/Potass Cl/ PEG (Golytely) 2,000 ml 1X ONCE PO Last administered on 03/06/19 09:33; Start 03/06/19 at 08:00; Stop 03/06/19 at 08:01; Status DC Furosemide (Lasix) 40 mg DAILY08 IVP Last administered on 03/09/19 09:27; Start 03/07/19 at 08:00; Stop 03/09/19 at 12:45; Status DC Metoprolol Tartrate (Lopressor Vial) 10 mg 1X ONCE IVP Last administered on 16:08; Start 03/06/19 at 15:15; Stop 03/06/19 at 15:16; Status DC Metoprolol Tartrate (Lopressor Vial) 5 mg Q6HRS IVP Last administered on 17:03; Start 03/06/19 at 18:00; Stop 03/07/19 at 18:27; Status DC Aspirin (Children'S Aspirin) 81 mg 1X ONCE PO Last administered on 03/06/19 18 :18; Start 03/06/19 at 17:00; Stop 03/06/19 at 17:01; Status DC Aspirin (Children'S Aspirin) 81 mg DAILYWBKFT PO Last administered on at 08:03; Start 03/07/19 at 08:00 Labetalol HCl (Normodyne Iv Push) 20 mg PRN Q2HR PRN IVP HYPERTENSION, SEE COMMENTS Last administered on 03/06/19 21:29; Start 03/06/19 at 17:15 Digoxin (Lanoxin) 250 mcg 1X ONCE IV Last administered on 03/06/19 22:00; Start 03/06/19 at 22:00; Stop 03/06/19 at 22:01; Status DC Diltiazem HCl 125 mg/Dextrose 125 ml @ 5 mls/hr CONT PRN IV SEE I/O RECORD Last administered on 03/12/19at 08:20; Start 03/06/19 at 23:00; Stop 03/12/19 at 11:03; Status DC Metoclopramide HCl (Reglan Vial) 10 mg Q6HRS IV ; Start 03/07/19 at 08:00; Stop 03/08/19 at 07:51; Status DC Metoprolol Tartrate (Lopressor Vial) 5 mg Q6HRS IVP Last administered on at 06:13; Start 03/08/19 at 12:00 Furosemide (Lasix) 40 mg 1X ONCE IVP Last administered on 03/08/19at 21:21; Start 03/08/19 at 21:00; Stop 03/08/19 at 21:01; Status DC Furosemide (Lasix) 20 mg DAILY08 IVP ; Start 03/10/19 at 08:00; Stop 03/10/19 at 08:00; Status DC Furosemide (Lasix) 20 mg DAILY08 IVP Last administered on 03/14/19at 07:41; Start 03/10/19 at 08:00; Stop 03/15/19 at 07:32; Status DC Insulin Glargine (Lantus) 16 units BID SQ Last administered on 03/12/19at 00:09 ; Start 03/09/19 at 21:00; Stop 03/12/19 at 07:18; Status DC Insulin Human Lispro (HumaLOG) 0-9 UNITS Q6HRS SQ Last administered on at 05:45; Start 03/09/19 at 18:00; Stop 03/12/19 at 07:18; Status DC Dextrose (Dextrose 50%-Water Syringe) 12.5 gm PRN Q15MIN PRN IV SEE COMMENTS; Start 03/09/19 at 17:15 Cefepime HCl (Maxipime) 2 gm Q12HR IVP Last administered on 03/19/19at 08:03; Start 03/10/19 at 21:00 Insulin Human Lispro (HumaLOG) 15 units 1X ONCE SQ Last administered on at 00:14; Start 03/11/19 at 00:00; Stop 03/11/19 at 00:01; Status DC Insulin Glargine (Lantus) 20 units BID SQ Last administered on 03/17/19at 08:32 ; Start 03/12/19 at 09:00; Stop 03/17/19 at 10:46; Status DC Insulin Human Lispro (HumaLOG) 0-9 UNITS Q6HRS SQ Last administered on at 06:12; Start 03/12/19 at 12:00 Diltiazem HCl (Cardizem) 30 mg Q6HRS PO Last administered on 03/19/19at 06:09; Start 03/12/19 at 12:00 Furosemide (Lasix) 20 mg 1X ONCE IVP Last administered on 03/13/19at 11:04; Start 03/13/19 at 10:30; Stop 03/13/19 at 10:31; Status DC Furosemide (Lasix) 20 mg 1X ONCE IVP Last administered on 03/14/19at 07:40; Start 03/14/19 at 07:15; Stop 03/14/19 at 14:05; Status DC Furosemide (Lasix) 40 mg Q8HRS IVP Last administered on 03/17/19at 05:49; Start 03/14/19 at 22:00; Stop 03/17/19 at 10:58; Status DC Albuterol Sulfate (Ventolin Neb Soln) 2.5 mg 1X ONCE NEB Last administered on 03/16/19at 04:00; Start 03/16/19 at 04:00; Stop 03/16/19 at 04:01; Status DC Methylprednisolone Sodium Succinate (SOLU-Medrol 40MG VIAL) 80 mg 1X ONCE IV Last administered on 03/16/19at 04:17; Start 03/16/19 at 04:30; Stop 03/16/19 at 04:31; Status DC Furosemide (Lasix) 20 mg 1X ONCE IVP Last administered on 03/16/19at 04:17; Start 03/16/19 at 04:30; Stop 03/16/19 at 04:31; Status DC Insulin Glargine (Lantus) 25 units BID SQ Last administered on 03/19/19at 08:04 ; Start 03/17/19 at 21:00 Insulin Human Lispro (HumaLOG) 10 units Q6HRS SQ ; Start 03/17/19 at 12:00; Stop 03/17/19 at 13:32; Status DC Furosemide (Lasix) 40 mg QD IVP Last administered on 03/18/19at 05:55; Start at 06:00; Stop 03/18/19 at 10:54; Status DC Insulin Human Lispro (HumaLOG) 3 units Q6HRS SQ Last administered on 03/19/19at 06:12; Start 03/17/19 at 18:00 Azithromycin 250 mg/Sodium Chloride 250 ml @ 250 mls/hr Q24H IV Last administered on 03/18/19at 08:48; Start 03/18/19 at 08:00 Alteplase, Recombinant (Cathflo For Central Catheter Clearance) 1 mg 1X ONCE INT CAT Last administered on 03/18/19at 09:21; Start 03/18/19 at 07:30; Stop at 07:31; Status DC Alteplase, Recombinant (Cathflo For Central Catheter Clearance) 1 mg 1X ONCE INT CAT Last administered on 03/18/19at 11:04; Start 03/18/19 at 07:30; Stop at 07:31; Status DC Alteplase, Recombinant (Cathflo For Central Catheter Clearance) 1 mg 1X ONCE INT CAT Last administered on 03/18/19at 13:26; Start 03/18/19 at 07:30; Stop at 07:31; Status DC Furosemide (Lasix) 60 mg 1X ONCE IVP Last administered on 03/18/19at 11:04; Start 03/18/19 at 10:54; Stop 03/18/19 at 10:55; Status DC Furosemide (Lasix) 40 mg Q8HRS IVP ; Start 03/18/19 at 14:00; Stop 03/18/19 at 17:53; Status DC Digoxin (Lanoxin) 250 mcg 1X ONCE IV Last administered on 03/18/19at 15:48; Start 03/18/19 at 15:30; Stop 03/18/19 at 15:33; Status DC Furosemide (Lasix) 40 mg Q8HRS IVP Last administered on 03/19/19at 06:12; Start 03/18/19 at 20:00 Digoxin (Lanoxin) 500 mcg 1X ONCE IV Last administered on 03/18/19at 19:35; Start 03/18/19 at 20:00; Stop 03/18/19 at 20:01; Status DC Active Scripts Active Reported Proair Hfa Inhaler (Albuterol Sulfate) 8.5 Gm Hfa.aer.ad 1 Puff INH PRN Q6HRS PRN Lantus Solostar (Insulin Glargine,Hum.rec.anlog) 100 Unit/1 Ml Insuln.pen 20 Unit SQ QHS Humalog (Insulin Lispro) 100 Unit/1 Ml Cartridge 6 Unit SQ TIDWMEALS Doxazosin Mesylate 2 Mg Tablet 2 Mg PO DAILY Omeprazole 40 Mg Capsule.dr 40 Mg PO DAILY Amlodipine Besylate 10 Mg Tablet 10 Mg PO DAILY Atorvastatin Calcium 20 Mg Tablet 20 Mg PO DAILY Atenolol 50 Mg Tablet 50 Mg PO DAILY Losartan Potassium 100 Mg Tablet 100 Mg PO DAILY Aspirin 81 Mg Tab.chew 81 Mg PO DAILY Glyburide 5 Mg Tablet 1 Tab PO BID Vitals/I & O Vital Sign - Last 24 Hours 03/18/19 03/18/19 03/18/19 03/18/19 08:55 09:00 09:55 10:00 Pulse 66 76 Resp 21 B/P (MAP) 129/69 (89) 133/70 (91) Pulse Ox 96 96 97 97 O2 Delivery Ventilator Ventilator Ventilator Ventilator 03/18/19 03/18/19 03/18/19 03/18/19 11:00 12:00 12:00 12:00 Pulse 72 114 107 104 Resp 20 B/P (MAP) 127/68 (87) 109/64 114/69 (84) Pulse Ox 96 91 O2 Delivery Ventilator Ventilator 03/18/19 03/18/19 03/18/19 03/18/19 12:00 12:05 12:12 12:40 Pulse 80 Pulse Ox 92 O2 Delivery Mechanical Ventilator Ventilator Ventilator O2 Flow Rate 96.0 03/18/19 03/18/19 03/18/19 03/18/19 13:00 13:27 14:00 14:12 Pulse 122 108 Resp 21 B/P (MAP) 92/67 (75) 125/60 (81) Pulse Ox 94 94 90 O2 Delivery Ventilator Ventilator Ventilator O2 Flow Rate 96.0 03/18/19 03/18/19 03/18/19 03/18/19 15:00 15:48 16:00 16:00 Pulse 128 111 112 Resp 21 B/P (MAP) 113/73 (86) 104/62 (76) Pulse Ox 94 95 O2 Delivery Ventilator Mechanical Ventilator Ventilator O2 Flow Rate 96.0 03/18/19 03/18/19 03/18/19 03/18/19 16:05 17:00 17:07 17:31 Pulse 118 Resp 21 B/P (MAP) 113/69 (84) Pulse Ox 95 92 95 96 O2 Delivery Ventilator Ventilator Ventilator 03/18/19 03/18/19 03/18/19 03/18/19 18:00 19:00 19:35 19:54 Pulse 110 108 100 Resp 21 22 B/P (MAP) 98/66 (77) 99/60 (73) 106/71 Pulse Ox 96 95 96 O2 Delivery Ventilator Ventilator Ventilator 03/18/19 03/18/19 03/18/19 03/18/19 20:00 20:00 21:00 22:00 Temp 98.7 98.7 Pulse 104 102 106 Resp 22 22 22 B/P (MAP) 112/72 (85) 119/76 (90) 126/77 (93) Pulse Ox 95 97 97 O2 Delivery Ventilator Mechanical Ventilator Ventilator Ventilator 03/18/19 03/18/19 03/18/19 03/18/19 22:59 23:00 23:26 23:55 Pulse 108 105 Resp 22 22 B/P (MAP) 109/74 (86) 119/63 Pulse Ox 96 95 95 O2 Delivery Ventilator Ventilator Ventilator 03/18/19 03/18/19 03/19/19 03/19/19 23:56 23:56 00:00 00:00 Temp 99.2 99.2 Pulse 105 102 Resp 22 B/P (MAP) 119/63 111/74 (86) Pulse Ox 95 O2 Delivery Ventilator Ventilator Mechanical Ventilator 03/19/19 03/19/19 03/19/19 03/19/19 01:00 02:00 02:36 03:00 Pulse 90 86 110 Resp 22 22 22 B/P (MAP) 112/59 (76) 109/65 (80) 134/69 (90) Pulse Ox 95 96 96 94 O2 Delivery Ventilator Ventilator Ventilator Ventilator 03/19/19 03/19/19 03/19/19 03/19/19 04:00 04:00 04:58 05:00 Temp 99.4 99.4 Pulse 120 116 Resp 22 22 B/P (MAP) 122/75 (91) 106/76 (86) Pulse Ox 96 95 95 O2 Delivery Ventilator Mechanical Ventilator Ventilator Ventilator 03/19/19 03/19/19 03/19/19 03/19/19 05:48 06:00 06:09 06:13 Pulse 84 87 87 Resp 22 22 B/P (MAP) 131/69 (89) 131/69 131/69 Pulse Ox 96 97 O2 Delivery Ventilator Ventilator 03/19/19 03/19/19 06:20 07:22 Resp 22 Pulse Ox 98 96 O2 Delivery Ventilator Intake and Output 03/18/19 03/18/19 03/19/19 15:00 23:00 07:00 Intake Total 970 ml 3348 ml 1410 ml Output Total 2600 ml 1205 ml 840 ml Balance -1630 ml 2143 ml 570 ml YRIS RUIZ MD Mar 19, 2019 08:28
[2019-03-19 09:31] LABS: ALBUMIN 1.9 g/dL (3.4-5.0); CALCIUM 8.2 mg/dL (8.5-10.1); CREATININE 1.7 mg/dL (0.7-1.3); GFR 41.9; PHOSPHORUS 3.6 mg/dL (2.6-4.7); POTASSIUM 4.2 mmol/L (3.5-5.1)
[2019-03-19] MEDS: NYSTATIN 100,000 UNIT/GM TOPICAL CREAM 15GM TUBE. TP SCH ×2 (09:53→21:22)
[2019-03-19] MEDS: AZITHROMYCIN 250 MG in IV NORMAL SALINE 250ML 250 ML IV SCH (09:53)
--- NOTE | 2019-03-19 10:34 | PDOC ---
PULMONARY PROGRESS NOTES Subjective ON AC MODE SEDATED on versed, fentanyl, propofol 80% FIO2/16 PEEP, small ett secretion Vitals Vital Signs Date Time Temp Pulse Resp B/P (MAP) Pulse Ox O2 Delivery O2 Flow Rate FiO2 03/19/19 09:45 80 03/19/19 09:05 Ventilator 03/19/19 08:00 96.0 03/19/19 06:20 22 03/19/19 06:13 87 131/69 03/19/19 04:00 99.4 99.4 Comments ros as mentioned as above discussed w rn, rt, other sys otherwise neg on vent sedated HEENT: Other (nc at perrl nose clear orally intubated neck no lad, no thyromegaly) Lungs: Other (decrease bs) Cardiovascular: S1, S2, Other (decrease bs) Abdomen: Soft, Non-tender, Other (OBESE no mass) Extremities: Other (venous stasis and edema left, right BKA) Skin: Warm Labs Laboratory Tests Test 03/17/19 13:50 03/17/19 18:23 03/17/19 21:00 03/18/19 00:32 Glucose (Fingerstick) 275 mg/dL (70-99) 263 mg/dL (70-99) 233 mg/dL (70-99) 227 mg/dL (70-99) Test 03/18/19 05:30 03/18/19 05:43 03/18/19 08:56 03/18/19 09:00 White Blood Count 8.9 x10^3/uL (4.0-11.0) Red Blood Count 3.69 x10^6/uL (4.30-5.70) Hemoglobin 11.1 g/dL (13.0-17.5) Hematocrit 35.1 % (39.0-53.0) Mean Corpuscular Volume 95 fL (79-100) Mean Corpuscular Hemoglobin 30 pg (25-35) Mean Corpuscular Hemoglobin Concent 32 g/dL (31-37) Red Cell Distribution Width 15.0 % (11.5-14.5) Platelet Count 569 x10^3/uL (140-400) Neutrophils (%) (Auto) 73 % (31-73) Lymphocytes (%) (Auto) 15 % (24-48) Monocytes (%) (Auto) 8 % (0-9) Eosinophils (%) (Auto) 3 % (0-3) Basophils (%) (Auto) 1 % (0-3) Neutrophils # (Auto) 6.5 x10^3uL (1.8-7.7) Lymphocytes # (Auto) 1.4 x10^3/uL (1.0-4.8) Monocytes # (Auto) 0.7 x10^3/uL (0.0-1.1) Eosinophils # (Auto) 0.3 x10^3/uL (0.0-0.7) Basophils # (Auto) 0.1 x10^3/uL (0.0-0.2) Sodium Level 150 mmol/L (136-145) Potassium Level 4.1 mmol/L (3.5-5.1) Chloride Level 111 mmol/L (98-107) Carbon Dioxide Level 32 mmol/L (21-32) Anion Gap 7 (6-14) Blood Urea Nitrogen 74 mg/dL (8-26) Creatinine 1.6 mg/dL (0.7-1.3) Estimated GFR (Cockcroft-Gault) 44.9 Glucose Level 248 mg/dL (70-99) Calcium Level 8.8 mg/dL (8.5-10.1) Glucose (Fingerstick) 240 mg/dL (70-99) 226 mg/dL (70-99) O2 Saturation 95 % (92-99) Arterial Blood pH 7.45 (7.35-7.45) Arterial Blood pCO2 at Patient Temp 50 mmHg (35-46) Arterial Blood pO2 at Patient Temp 76 mmHg (75-108) Arterial Blood HCO3 34 mmol/L (21-28) Arterial Blood Base Excess 9 mmol/L (-3-3) FiO2 95 Test 03/18/19 11:11 03/18/19 17:24 03/18/19 21:21 03/18/19 23:50 Glucose (Fingerstick) 245 mg/dL (70-99) 225 mg/dL (70-99) 211 mg/dL (70-99) 215 mg/dL (70-99) Test 03/19/19 06:07 03/19/19 07:30 03/19/19 07:40 03/19/19 09:18 Glucose (Fingerstick) 265 mg/dL (70-99) 279 mg/dL (70-99) O2 Saturation 97 % (92-99) Arterial Blood pH 7.42 (7.35-7.45) Arterial Blood pCO2 at Patient Temp 51 mmHg (35-46) Arterial Blood pO2 at Patient Temp 104 mmHg (75-108) Arterial Blood HCO3 32 mmol/L (21-28) Arterial Blood Base Excess 6 mmol/L (-3-3) FiO2 90 Sodium Level 143 mmol/L (136-145) Potassium Level 4.2 mmol/L (3.5-5.1) Chloride Level 103 mmol/L (98-107) Carbon Dioxide Level 32 mmol/L (21-32) Anion Gap 8 (6-14) Blood Urea Nitrogen 68 mg/dL (8-26) Creatinine 1.7 mg/dL (0.7-1.3) Estimated GFR (Cockcroft-Gault) 41.9 Glucose Level 310 mg/dL (70-99) Calcium Level 8.2 mg/dL (8.5-10.1) Phosphorus Level 3.6 mg/dL (2.6-4.7) Albumin 1.9 g/dL (3.4-5.0) Laboratory Tests Test 03/18/19 11:11 03/18/19 17:24 03/18/19 21:21 03/18/19 23:50 Glucose (Fingerstick) 245 mg/dL (70-99) 225 mg/dL (70-99) 211 mg/dL (70-99) 215 mg/dL (70-99) Test 03/19/19 06:07 03/19/19 07:30 03/19/19 07:40 03/19/19 09:18 Glucose (Fingerstick) 265 mg/dL (70-99) 279 mg/dL (70-99) O2 Saturation 97 % (92-99) Arterial Blood pH 7.42 (7.35-7.45) Arterial Blood pCO2 at Patient Temp 51 mmHg (35-46) Arterial Blood pO2 at Patient Temp 104 mmHg (75-108) Arterial Blood HCO3 32 mmol/L (21-28) Arterial Blood Base Excess 6 mmol/L (-3-3) FiO2 90 Sodium Level 143 mmol/L (136-145) Potassium Level 4.2 mmol/L (3.5-5.1) Chloride Level 103 mmol/L (98-107) Carbon Dioxide Level 32 mmol/L (21-32) Anion Gap 8 (6-14) Blood Urea Nitrogen 68 mg/dL (8-26) Creatinine 1.7 mg/dL (0.7-1.3) Estimated GFR (Cockcroft-Gault) 41.9 Glucose Level 310 mg/dL (70-99) Calcium Level 8.2 mg/dL (8.5-10.1) Phosphorus Level 3.6 mg/dL (2.6-4.7) Albumin 1.9 g/dL (3.4-5.0) Medications Active Scripts Medications Dose Route/Sig Max Daily Dose Days Date Category Proair Hfa Inhaler (Albuterol Sulfate) 8.5 Gm Hfa.aer.ad 1 Puff INH PRN Q6HRS PRN 02/27/19 Reported Lantus Solostar (Insulin Glargine,Hum.rec.anlog) 100 Unit/1 Ml Insuln.pen 20 Unit SQ QHS 02/27/19 Reported Humalog (Insulin Lispro) 100 Unit/1 Ml Cartridge 6 Unit SQ TIDWMEALS 02/27/19 Reported Doxazosin Mesylate 2 Mg Tablet 2 Mg PO DAILY 02/27/19 Reported Omeprazole 40 Mg Capsule.dr 40 Mg PO DAILY 02/27/19 Reported Amlodipine Besylate 10 Mg Tablet 10 Mg PO DAILY 02/27/19 Reported Atorvastatin Calcium 20 Mg Tablet 20 Mg PO DAILY 02/27/19 Reported Atenolol 50 Mg Tablet 50 Mg PO DAILY 02/27/19 Reported Losartan Potassium 100 Mg Tablet 100 Mg PO DAILY 02/27/19 Reported Aspirin 81 Mg Tab.chew 81 Mg PO DAILY 02/27/19 Reported Glyburide 5 Mg Tablet 1 Tab PO BID 11/09/16 Reported Comments CXR REVIEWED 03/18 worsening infiltrates, right effusion Impression . 1. Acute hypoxemic /hypercapnic respiratory failure./ ARDS 2. sepsis./ ARDS 3. In-house cardiopulmonary arrest. 4. Normal EF / mild Pulmonary HTN 5. Acute on chronic right-sided heart failure. 6. Possible pneumonia. 7. Morbid obesity. 8. Diabetes. 9. ANASARCA 10. Abnormal CXR/ susperimposed CHF right effusion 03/18 11. Increasing azotemia <Conclusion>ECHO The left ventricular systolic function is normal. The ejection fraction is 60-65%. There is normal LV segmental wall motion. Transmitral Doppler flow pattern is Grade I-abnormal relaxation pattern. Trace tricuspid regurgitation. Estimated PAP 33-38 mmHg. There is no evidence of significant pericardial effusion. VENOUS 02/28 Impression: 1. There is no evidence of deep venous thrombosis from the bilateral common femoral to popliteal veins. 2. There is nonspecific right groin lymph node. Plan . AC MODE ,Wean PEEP to 15 AND 80% FI02, cont vent support, setting reviewed, slowly improving CXR f/u ANITBX PER ID Increased lasix dose , monitor k, cr bilateral venous Dopplers of lower extremities.NEG DVT and GI prophylaxis. Follow Cardiology/ Renal.rec Enteral nutrition am abg, cxr elevate hob discussed w rn, rt DNR Overall Prognosis guarded . d/w sister/ Daughter . They understand critical illness. Will continue current aggressive care. showing mild improvement. Not stable for tracheostomy ALEJANDRINA WILBURN MD Mar 19, 2019 10:34
--- NOTE | 2019-03-19 12:07 | PDOC ---
SUBJECTIVE ROS Intubated OBJECTIVE Vital Signs Vital Signs Date Time Temp Pulse Resp B/P (MAP) Pulse Ox O2 Delivery O2 Flow Rate FiO2 03/19/19 11:19 120 03/19/19 10:00 22 132/69 (90) 95 Ventilator 03/19/19 08:00 96.0 03/19/19 04:00 99.4 99.4 I & 0 Intake and Output 03/19/19 07:00 Intake Total 5728 ml Output Total 4875 ml Balance 853 ml IV Total 1078 ml Tube Feeding 2930 ml Other 1720 ml Output Urine Total 4875 ml Gastric Drainage Total 0 ml PHYSICAL EXAM Physical Exam GENERAL: Sedated and intubated. HEENT: PERRL, ETT. OGT NECK: Supple. LUNGS: Decreased in bases HEART: S1, S2. regular ABDOMEN: Obese, distended, decreased bowel sounds, GENITOURINARY: [place] He has scrotal swelling EXTREMITIES: Generalized anasarca. RLE stump with chronic wound. No erythema/ fluctuance/warmth. 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 DIAGNOSIS/ASSESSMENT Assessment & Plan LEONARD- Cr up to 2-2.3 improving stable Lytes and acid base Acute hypoxemic /hypercapnic respiratory failure./ ARDS Anasarca- Improved IV Lasix Q 8 hrs .improved CxR Hypernatremia - improved Continue free water flushes , Right Renal mass Acute respiratory failure, intubated, increased infiltrates today - ARDS Scrotal edema/cellulitis- Improved urology consulted In hospital CP arrest COMMENT/RELEVANT DATA Meds Current Medications Medications (Trade) Dose Ordered Sig/Lula Start Time Stop Time Status Last Admin Dose Admin Acetaminophen (Tylenol Supp) 650 mg PRN Q6HRS PRN 03/02/19 17:15 03/03/19 17:39 650 MG Acetaminophen (Tylenol) 650 mg PRN Q6HRS PRN 03/04/19 11:45 03/10/19 20:48 650 MG Albumin Human 100 ml @ 100 mls/hr 1X ONCE 03/03/19 08:30 03/03/19 09:29 DC 03/03/19 08:52 100 MLS/HR Albuterol Sulfate (Ventolin Neb Soln) 2.5 mg 1X ONCE 03/16/19 04:00 03/16/19 04:01 DC 03/16/19 04:00 2.5 MG Albuterol/ Ipratropium (Duoneb) 3 ml RTQID 02/28/19 16:00 03/19/19 07:22 3 ML Alteplase, Recombinant (Cathflo For Central Catheter Clearance) 1 mg 1X ONCE 03/18/19 07:30 03/18/19 07:31 DC 03/18/19 13:26 1 MG Aspirin (Aspirin) 300 mg DAILY 02/28/19 09:00 02/28/19 09:42 DC Aspirin (Children'S Aspirin) 81 mg DAILYWBKFT 03/07/19 08:00 03/19/19 08:03 81 MG Atropine Sulfate (ATROPINE 0.5mg SYRINGE) 2 mg STK-MED ONCE 02/27/19 16:21 03/03/19 16:22 DC Azithromycin 250 mg/Sodium Chloride 250 ml @ 250 mls/hr Q24H 03/18/19 08:00 03/19/19 09:53 250 MLS/HR Calcium Chloride 1000 mg/Dextrose 60 ml @ 120 mls/hr 1X ONCE 02/28/19 10:30 02/28/19 10:59 DC 02/28/19 11:03 120 MLS/HR Cefepime HCl (Maxipime) 2 gm Q12HR 03/10/19 21:00 03/19/19 08:03 2 GM Ceftriaxone Sodium (Rocephin) 1 gm Q24H 02/28/19 11:00 02/28/19 11:18 DC 02/28/19 11:03 1 GM Dextrose (Dextrose 50%-Water Syringe) 12.5 gm PRN Q15MIN PRN 03/09/19 17:15 Digoxin (Lanoxin) 500 mcg 1X ONCE 03/18/19 20:00 03/18/19 20:01 DC 03/18/19 19:35 500 MCG Diltiazem HCl (Cardizem) 30 mg Q6HRS 03/12/19 12:00 03/19/19 11:19 30 MG Diltiazem HCl 125 mg/Dextrose 125 ml @ 5 mls/hr CONT PRN 03/06/19 23:00 03/12/19 11:03 DC 03/12/19 08:20 5 MLS/HR Dopamine HCl/ Dextrose (DOPamine 400MG/ 250ML PREMIX) 400 mg STK-MED ONCE 02/27/19 16:21 03/03/19 16:22 DC Etomidate (Amidate) 20 mg STK-MED ONCE 02/28/19 06:59 02/28/19 07:00 DC Famotidine (Pepcid Vial) 20 mg Q12HR 03/02/19 21:00 03/19/19 08:02 20 MG Fentanyl Citrate 30 ml @ 0 mls/hr CONT PRN 03/05/19 04:45 03/19/19 09:45 4.95 MLS/HR Fentanyl Citrate (Fentanyl 2ml Vial) 25 mcg PRN Q30MIN PRN 02/28/19 07:45 02/28/19 09:42 DC Furosemide (Lasix) 40 mg Q8HRS 03/18/19 20:00 03/19/19 06:12 40 MG Haloperidol Lactate (Haldol Inj) 5 mg PRN Q6HRS PRN 02/28/19 15:15 03/09/19 14:07 5 MG Heparin Sodium (Porcine) (Heparin Sodium) 5,000 unit Q8HRS 02/27/19 17:00 03/19/19 06:11 5,000 UNIT Info (Icu Electrolyte Protocol) 1 ea DAILY PRN 03/02/19 07:45 03/02/19 07:45 DC Insulin Glargine (Lantus) 25 units BID 03/17/19 21:00 03/19/19 08:04 25 UNITS Insulin Human Lispro (HumaLOG) 6 units Q6HRS 03/19/19 12:00 03/19/19 11:25 6 UNITS Labetalol HCl (Normodyne Iv Push) 20 mg PRN Q2HR PRN 03/06/19 17:15 03/06/19 21:29 20 MG Linezolid/Dextrose 300 ml @ 300 mls/hr Q12HR 03/05/19 09:00 03/06/19 06:42 DC 03/05/19 21:24 300 MLS/HR Lorazepam (Ativan) 1 mg PRN Q30MIN PRN 02/28/19 07:45 02/28/19 09:42 DC Lorazepam 100 mg/ Sodium Chloride 100 ml @ 0 mls/hr CONT PRN 03/03/19 22:00 03/17/19 15:39 DC 03/03/19 22:18 1 MLS/HR Meperidine HCl (Demerol) 12.5 mg PRN Q30MIN PRN 02/28/19 07:45 02/28/19 09:42 DC Meropenem 500 mg/ Sodium Chloride 50 ml @ 100 mls/hr Q6HRS 03/03/19 12:00 03/05/19 06:47 DC 03/05/19 05:33 100 MLS/HR Methylprednisolone Sodium Succinate (SOLU-Medrol 40MG VIAL) 80 mg 1X ONCE 03/16/19 04:30 03/16/19 04:31 DC 03/16/19 04:17 80 MG Metoclopramide HCl (Reglan Vial) 10 mg Q6HRS 03/07/19 08:00 03/08/19 07:51 DC Metoprolol Tartrate (Lopressor Vial) 5 mg Q6HRS 03/08/19 12:00 03/19/19 11:19 5 MG Metronidazole 100 ml @ 100 mls/hr Q8HRS 03/05/19 06:45 03/10/19 08:29 DC 03/10/19 05:45 100 MLS/HR Micafungin Sodium 100 mg/Dextrose 100 ml @ 100 mls/hr Q24H 02/28/19 12:00 03/05/19 06:47 DC 03/04/19 15:53 100 MLS/HR Midazolam HCl 100 ml @ 0 mls/hr CONT PRN 02/28/19 07:15 03/18/19 19:34 5 MLS/HR Morphine Sulfate (Morphine Sulfate) 2 mg PRN Q2HR PRN 02/27/19 16:45 02/28/19 16:44 DC Multi-Ingred Cream/Lotion/Oil/ Oint (Artificial Tears Eye Ointment) 1 jennifer PRN Q6HRS PRN 02/28/19 07:45 02/28/19 09:42 DC Nystatin (Mycostatin) 1 jennifer BID 03/06/19 09:00 03/19/19 09:53 1 JENNIFER Ondansetron HCl (Zofran) 4 mg PRN Q8HRS PRN 02/27/19 16:45 02/28/19 16:44 DC Perflutren Protein Type A Microsphe (Optison) 0.66 mg PRN 1X PRN 03/01/19 10:00 03/02/19 09:59 DC Propofol 100 ml @ 0 mls/hr CONT PRN 02/28/19 07:45 03/19/19 10:01 18.5 MLS/HR Rocuronium [place] (Zemuron) 50 mg STK-MED ONCE 02/28/19 07:00 02/28/19 09:42 DC Sodium Chloride 500 ml @ 500 mls/hr 1X ONCE 03/06/19 00:45 03/06/19 01:44 DC 03/06/19 00:49 500 MLS/HR Sodium Chloride (Normal Saline Flush) 3 ml QSHIFT PRN 02/28/19 07:45 Sodium Cl/Sod Bicarb/Potass Cl/ PEG (Golytely) 2,000 ml 1X ONCE 03/06/19 08:00 03/06/19 08:01 DC 03/06/19 09:33 2,000 ML Vecuronium [place] (Norcuron Bolus) 8 mg PRN Q4HRS PRN 02/28/19 15:15 03/12/19 23:48 8 MG Lab Laboratory Tests Test 03/18/19 17:24 03/18/19 21:21 03/18/19 23:50 03/19/19 06:07 Glucose (Fingerstick) 225 mg/dL (70-99) 211 mg/dL (70-99) 215 mg/dL (70-99) 265 mg/dL (70-99) Test 03/19/19 07:30 03/19/19 07:40 03/19/19 09:18 O2 Saturation 97 % (92-99) Arterial Blood pH 7.42 (7.35-7.45) Arterial Blood pCO2 at Patient Temp 51 mmHg (35-46) Arterial Blood pO2 at Patient Temp 104 mmHg (75-108) Arterial Blood HCO3 32 mmol/L (21-28) Arterial Blood Base Excess 6 mmol/L (-3-3) FiO2 90 Glucose (Fingerstick) 279 mg/dL (70-99) Sodium Level 143 mmol/L (136-145) Potassium Level 4.2 mmol/L (3.5-5.1) Chloride Level 103 mmol/L (98-107) Carbon Dioxide Level 32 mmol/L (21-32) Anion Gap 8 (6-14) Blood Urea Nitrogen 68 mg/dL (8-26) Creatinine 1.7 mg/dL (0.7-1.3) Estimated GFR (Cockcroft-Gault) 41.9 Glucose Level 310 mg/dL (70-99) Calcium Level 8.2 mg/dL (8.5-10.1) Phosphorus Level 3.6 mg/dL (2.6-4.7) Albumin 1.9 g/dL (3.4-5.0) Results All relevant outside records, renal labs, imaging studies, telemetry/EKG's were reviewed. GALO AMBRIZ MD Mar 19, 2019 12:07
[2019-03-19] MEDS: MIDAZOLAM 100mg/100ml NS BAG 100 ML IV PRN (15:41)
[2019-03-20] VITALS (21 sets, daily range): BP systolic 115–167; BP diastolic 56–81
[2019-03-20] MEDS: INSULIN LISPRO 300 UNITS/3 ML INSULN.PEN. SQ SCH ×8 (00:01→17:46)
[2019-03-20] MEDS: dilTIAZem HCL 30 MG TABLET PO SCH ×4 (00:06→17:23)
[2019-03-20] MEDS: METOPROLOL TARTRATE 5 MG/5 ML VIAL. IVP SCH ×4 (00:06→17:22)
[2019-03-20] MEDS: FUROSEMIDE 40 MG/4 ML VIAL. IVP SCH (05:42)
[2019-03-20] MEDS: HEPARIN for SUB-Q USE 5,000 UNIT/ML VIAL. SQ SCH ×3 (05:44→21:28)
[2019-03-20 06:03] LABS: CALCIUM 7.9 mg/dL (8.5-10.1); CREATININE 1.5 mg/dL (0.7-1.3); GFR 48.4; PHOSPHORUS 3.8 mg/dL (2.6-4.7); POTASSIUM 3.9 mmol/L (3.5-5.1)
[2019-03-20 06:08] LABS: ALBUMIN 1.7 g/dL (3.4-5.0)
[2019-03-20] MEDS: MIDAZOLAM 100mg/100ml NS BAG 100 ML IV PRN (06:29)
--- NOTE | 2019-03-20 07:21 | PDOC ---
Infectious Disease Note Subjective: Subjective Pt remains intubated and sedated, still requiring PEEP of 15 no fevers D/W RN Vital Signs: Vital Signs Vital Signs Date Time Temp Pulse Resp B/P (MAP) Pulse Ox O2 Delivery O2 Flow Rate FiO2 03/20/19 06:00 68 21 117/56 (76) 94 Ventilator 03/20/19 04:00 98.1 98.1 03/19/19 16:00 96.0 Physical Exam: PHYSICAL EXAM GENERAL: Sedated and intubated. HEENT: PERRL, ETT. OGT NECK: Supple. LUNGS: Decreased in bases HEART: S1, S2. 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 RLE stump with chronic wound. No erythema/ fluctuance/warmth. no cyanosis SKIN: Warm to touch. 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: Sedated on vent RUE-PICC (03/09) clean Medications: Inpatient Meds: Current Medications Medications (Trade) Dose Ordered Sig/Lula Start Time Stop Time Status Last Admin Dose Admin Acetaminophen (Tylenol Supp) 650 mg PRN Q6HRS PRN 03/02/19 17:15 03/03/19 17:39 650 MG Acetaminophen (Tylenol) 650 mg PRN Q6HRS PRN 03/04/19 11:45 03/10/19 20:48 650 MG Albumin Human 100 ml @ 100 mls/hr 1X ONCE 03/03/19 08:30 03/03/19 09:29 DC 03/03/19 08:52 100 MLS/HR Albuterol Sulfate (Ventolin Neb Soln) 2.5 mg 1X ONCE 03/16/19 04:00 03/16/19 04:01 DC 03/16/19 04:00 2.5 MG Albuterol/ Ipratropium (Duoneb) 3 ml RTQID 02/28/19 16:00 03/19/19 20:25 3 ML Alteplase, Recombinant (Cathflo For Central Catheter Clearance) 1 mg 1X ONCE 03/18/19 07:30 03/18/19 07:31 DC 03/18/19 13:26 1 MG Aspirin (Aspirin) 300 mg DAILY 02/28/19 09:00 02/28/19 09:42 DC Aspirin (Children'S Aspirin) 81 mg DAILYWBKFT 03/07/19 08:00 03/19/19 08:03 81 MG Atropine Sulfate (ATROPINE 0.5mg SYRINGE) 2 mg STK-MED ONCE 02/27/19 16:21 03/03/19 16:22 DC Azithromycin 250 mg/Sodium Chloride 250 ml @ 250 mls/hr Q24H 03/18/19 08:00 03/19/19 09:53 250 MLS/HR Calcium Chloride 1000 mg/Dextrose 60 ml @ 120 mls/hr 1X ONCE 02/28/19 10:30 02/28/19 10:59 DC 02/28/19 11:03 120 MLS/HR Cefepime HCl (Maxipime) 2 gm Q12HR 03/10/19 21:00 03/19/19 21:19 2 GM Ceftriaxone Sodium (Rocephin) 1 gm Q24H 02/28/19 11:00 02/28/19 11:18 DC 02/28/19 11:03 1 GM Dextrose (Dextrose 50%-Water Syringe) 12.5 gm PRN Q15MIN PRN 03/09/19 17:15 Digoxin (Lanoxin) 500 mcg 1X ONCE 03/18/19 20:00 03/18/19 20:01 DC 03/18/19 19:35 500 MCG Diltiazem HCl (Cardizem) 30 mg Q6HRS 03/12/19 12:00 03/20/19 05:43 30 MG Diltiazem HCl 125 mg/Dextrose 125 ml @ 5 mls/hr CONT PRN 03/06/19 23:00 03/12/19 11:03 DC 03/12/19 08:20 5 MLS/HR Dopamine HCl/ Dextrose (DOPamine 400MG/ 250ML PREMIX) 400 mg STK-MED ONCE 02/27/19 16:21 03/03/19 16:22 DC Etomidate (Amidate) 20 mg STK-MED ONCE 02/28/19 06:59 02/28/19 07:00 DC Famotidine (Pepcid Vial) 20 mg Q12HR 03/02/19 21:00 03/19/19 21:18 20 MG Fentanyl Citrate 30 ml @ 0 mls/hr CONT PRN 03/05/19 04:45 03/20/19 04:44 4.95 MLS/HR Fentanyl Citrate (Fentanyl 2ml Vial) 25 mcg PRN Q30MIN PRN 02/28/19 07:45 02/28/19 09:42 DC Furosemide (Lasix) 40 mg Q8HRS 03/18/19 20:00 03/20/19 05:42 40 MG Haloperidol Lactate (Haldol Inj) 5 mg PRN Q6HRS PRN 02/28/19 15:15 03/09/19 14:07 5 MG Heparin Sodium (Porcine) (Heparin Sodium) 5,000 unit Q8HRS 02/27/19 17:00 03/20/19 05:44 5,000 UNIT Info (Icu Electrolyte Protocol) 1 ea DAILY PRN 03/02/19 07:45 03/02/19 07:45 DC Insulin Glargine (Lantus) 25 units BID 03/17/19 21:00 03/19/19 21:21 25 UNITS Insulin Human Lispro (HumaLOG) 6 units Q6HRS 03/19/19 12:00 03/20/19 05:45 6 UNITS Labetalol HCl (Normodyne Iv Push) 20 mg PRN Q2HR PRN 03/06/19 17:15 03/06/19 21:29 20 MG Linezolid/Dextrose 300 ml @ 300 mls/hr Q12HR 03/05/19 09:00 03/06/19 06:42 DC 03/05/19 21:24 300 MLS/HR Lorazepam (Ativan) 1 mg PRN Q30MIN PRN 02/28/19 07:45 02/28/19 09:42 DC Lorazepam 100 mg/ Sodium Chloride 100 ml @ 0 mls/hr CONT PRN 03/03/19 22:00 03/17/19 15:39 DC 03/03/19 22:18 1 MLS/HR Meperidine HCl (Demerol) 12.5 mg PRN Q30MIN PRN 02/28/19 07:45 02/28/19 09:42 DC Meropenem 500 mg/ Sodium Chloride 50 ml @ 100 mls/hr Q6HRS 03/03/19 12:00 03/05/19 06:47 DC 03/05/19 05:33 100 MLS/HR Methylprednisolone Sodium Succinate (SOLU-Medrol 40MG VIAL) 80 mg 1X ONCE 03/16/19 04:30 03/16/19 04:31 DC 03/16/19 04:17 80 MG Metoclopramide HCl (Reglan Vial) 10 mg Q6HRS 03/07/19 08:00 03/08/19 07:51 DC Metoprolol Tartrate (Lopressor Vial) 5 mg Q6HRS 03/08/19 12:00 03/20/19 05:43 5 MG Metronidazole 100 ml @ 100 mls/hr Q8HRS 03/05/19 06:45 03/10/19 08:29 DC 03/10/19 05:45 100 MLS/HR Micafungin Sodium 100 mg/Dextrose 100 ml @ 100 mls/hr Q24H 02/28/19 12:00 03/05/19 06:47 DC 03/04/19 15:53 100 MLS/HR Midazolam HCl 100 ml @ 0 mls/hr CONT PRN 02/28/19 07:15 03/20/19 06:29 5 MLS/HR Morphine Sulfate (Morphine Sulfate) 2 mg PRN Q2HR PRN 02/27/19 16:45 02/28/19 16:44 DC Multi-Ingred Cream/Lotion/Oil/ Oint (Artificial Tears Eye Ointment) 1 jennifer PRN Q6HRS PRN 02/28/19 07:45 02/28/19 09:42 DC Nystatin (Mycostatin) 1 jennifer BID 03/06/19 09:00 03/19/19 21:22 1 JENNIFER Ondansetron HCl (Zofran) 4 mg PRN Q8HRS PRN 02/27/19 16:45 02/28/19 16:44 DC Perflutren Protein Type A Microsphe (Optison) 0.66 mg PRN 1X PRN 03/01/19 10:00 03/02/19 09:59 DC Propofol 100 ml @ 0 mls/hr CONT PRN 02/28/19 07:45 03/19/19 21:18 18.5 MLS/HR Rocuronium [place] (Zemuron) 50 mg STK-MED ONCE 02/28/19 07:00 02/28/19 09:42 DC Sodium Chloride 500 ml @ 500 mls/hr 1X ONCE 03/06/19 00:45 03/06/19 01:44 DC 03/06/19 00:49 500 MLS/HR Sodium Chloride (Normal Saline Flush) 3 ml QSHIFT PRN 02/28/19 07:45 Sodium Cl/Sod Bicarb/Potass Cl/ PEG (Golytely) 2,000 ml 1X ONCE 03/06/19 08:00 03/06/19 08:01 DC 03/06/19 09:33 2,000 ML Vecuronium [place] (Norcuron Bolus) 8 mg PRN Q4HRS PRN 02/28/19 15:15 03/12/19 23:48 8 MG Labs: Lab Laboratory Tests Test 03/19/19 07:30 03/19/19 07:40 03/19/19 09:18 03/19/19 11:22 O2 Saturation 97 % (92-99) Arterial Blood pH 7.42 (7.35-7.45) Arterial Blood pCO2 at Patient Temp 51 mmHg (35-46) Arterial Blood pO2 at Patient Temp 104 mmHg (75-108) Arterial Blood HCO3 32 mmol/L (21-28) Arterial Blood Base Excess 6 mmol/L (-3-3) FiO2 90 Glucose (Fingerstick) 279 mg/dL (70-99) 299 mg/dL (70-99) Sodium Level 143 mmol/L (136-145) Potassium Level 4.2 mmol/L (3.5-5.1) Chloride Level 103 mmol/L (98-107) Carbon Dioxide Level 32 mmol/L (21-32) Anion Gap 8 (6-14) Blood Urea Nitrogen 68 mg/dL (8-26) Creatinine 1.7 mg/dL (0.7-1.3) Estimated GFR (Cockcroft-Gault) 41.9 Glucose Level 310 mg/dL (70-99) Calcium Level 8.2 mg/dL (8.5-10.1) Phosphorus Level 3.6 mg/dL (2.6-4.7) Albumin 1.9 g/dL (3.4-5.0) Test 03/19/19 17:22 03/19/19 21:12 03/19/19 23:58 03/20/19 05:30 Glucose (Fingerstick) 314 mg/dL (70-99) 312 mg/dL (70-99) 350 mg/dL (70-99) Sodium Level 143 mmol/L (136-145) Potassium Level 3.9 mmol/L (3.5-5.1) Chloride Level 105 mmol/L (98-107) Carbon Dioxide Level 33 mmol/L (21-32) Anion Gap 5 (6-14) Blood Urea Nitrogen 66 mg/dL (8-26) Creatinine 1.5 mg/dL (0.7-1.3) Estimated GFR (Cockcroft-Gault) 48.4 Glucose Level 342 mg/dL (70-99) Calcium Level 7.9 mg/dL (8.5-10.1) Phosphorus Level 3.8 mg/dL (2.6-4.7) Albumin 1.7 g/dL (3.4-5.0) Objective: Assessment: Fever resolved Flank rash - no Eosinophilia but ? drug - had been on micafungin so less likely yeast, better Tachycardia - s/p Bolus/Digoxin and Metoprolol Increased GI residuals - Has been on/off ? 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 Status post code. Fluid overload ,CHF Acute kidney injury, improving Distant history of group B strep, Acinetobacter, Porphyromonas, plus anaerobes. Plan: Plan of Care cont Cefepime, Nystatin (on azithromycin per primary since 03/18 ) Cultures NGTD Supportive care D/W RN Prognosis poor VIVIAN RAMIREZ MD Mar 20, 2019 07:21
[2019-03-20] MEDS: IPRATRPIUM/ALBUTEROL 0.5/2.5MG 3 ML NEBU. NEB SCH ×4 (07:30→20:14)
[2019-03-20 07:38] LABS: BASE EXCESS ABG 10 mmol/L (-3-3); HCO3 ABG 36 mmol/L (21-28); PCO2 ABG 58 mmHg (35-46); SAT O2 ABG 83 % (92-99)
[2019-03-20] MEDS: PROPOFOL 100 ML IV PRN ×4 (07:42→21:10)
--- NOTE | 2019-03-20 07:42 | RAD ---
Portable chest, 03/20/2019: HISTORY: Respiratory failure, ARDS Comparison is made to a study from 03/18/2019. The ET tube tip lies well above the armani. An NG tube extends into the stomach. A right PICC extends into the superior aspect of the right atrium. The heart size is unchanged. There are diffuse bilateral pulmonary infiltrates with loss of definition of the underlying pulmonary vascularity. The findings are compatible with pulmonary edema or ARDS. Pleural fluid layering posteriorly is probably contributing to the chest opacities. These opacities have worsened slightly over the last several days. There is no evidence of pneumothorax. IMPRESSION: 1. Stable tube positions. 2. Worsening bilateral pulmonary infiltrates with associated bilateral pleural fluid. Electronically signed by: Moose Astorga MD (03/20/2019 7:39 AM) [facility]
[2019-03-20] MEDS: NYSTATIN 100,000 UNIT/GM TOPICAL CREAM 15GM TUBE. TP SCH ×2 (07:47→21:11)
[2019-03-20] MEDS: FAMOTIDINE 20 MG/2 ML VIAL IVP SCH ×2 (07:47→21:11)
[2019-03-20] MEDS: ASPIRIN CHEWABLE 81 MG TABLET. PO SCH (07:47)
[2019-03-20] MEDS: CEFEPIME HCL IV Push 2 GM VIAL. IVP SCH ×2 (07:48→21:14)
[2019-03-20] MEDS: AZITHROMYCIN 250 MG in IV NORMAL SALINE 250ML 250 ML IV SCH (07:48)
[2019-03-20] MEDS: INSULIN GLARGINE 300 UNITS/3 ML INSULN.PEN. SQ SCH ×2 (07:52→21:28)
--- NOTE | 2019-03-20 08:49 | PDOC ---
PROGRESS NOTES Chief Complaint Chief Complaint Acute respiratory failure secondary to congestive heart failure, most probably acute on chronic diastolic. s/p intubation. Myocardial infarction ruled out. Hypernatremia secondary to severe dehydration will need to provide water flushes in order to correct electrolyte disturbance. High residuals on tube feedings no evidence of obstructive pattern on x ray done 03/05/2019 3 weeks of bilateral general scrotal swelling and tenderness. +dyspnea, abd swelling, leg swelling. POA, Dm2 obesity, extreme, morbid hx RLE BKA RLE stump with chronic wound. No erythema/warmth left foot nail onychomycosis needs attention when more clinically stable Acute renal failure ATN Renal CONSULT 3.1-1.8 chronic venous insuff left lower leg nonspecific perinephric stranding with slight asymmetric stranding adjacent to the left renal pelvis. Findings may be due to chronic kidney disease, though ascending urinary tract infection is not excluded. Bilateral lower lobe consolidation concerning for multifocal pneumonia aspiration not excluded. Right renal hypodensity measuring 2.5 cm is incompletely evaluated on noncontrast examination. Follow-up MRI or CT abdomen and pelvis renal protocol with contrast is recommended for further evaluation. Anasarca. bilateral external iliac lymphadenopathy, may be reactive, though follow-up CT abdomen and pelvis in 3 months is recommended to assess for stability/resolution. Nonobstructive left nephrolithiasis. Coronary artery calcifications. The left ventricular systolic function is normal.ejection fraction is 60-65% .normal LV segmental wall motion. Transmitral Doppler flow pattern is Grade I-abnormal relaxation pattern. Trace tricuspid regurgitation. Estimated PAP 33-38 mmHg. History of Present Illness History of Present Illness Continue with supportive measures ventilatory support - on 80% oxygen and 15 of PEEP, poor prognosis, Dr Vinson will address on Saturday if patient does not have improvement, he has been on support for over 10 days now paO2 48 on PEEP 15 and 80% FiO2, a lot worse than yesterday, has UOP as well and Cr was better today from 1.9-->1.5. CXR worse today Daughter arrived and is not currently bedside. Glucose climbing into mid 200s despite insulin regimen. > 900cc UOP Plan: follow recommendations from [employer] business intelligence consultant. UROLOGY CONSULT reviewed no intervention needed except for elevation and diuresis ID CONSULTED - continue with antibiotic as per ID Cont ARDS treatment. Is worse than yesterday, increase FiO2 again Increase glycemic control Vitals Vitals Vital Signs Date Time Temp Pulse Resp B/P (MAP) Pulse Ox O2 Delivery O2 Flow Rate FiO2 03/20/19 08:15 22 97 03/20/19 07:47 75 03/20/19 07:31 Ventilator 03/20/19 07:00 138/70 (92) 03/20/19 04:00 98.1 98.1 03/19/19 16:00 96.0 Physical Exam Physical Exam GENERAL: Sedated and intubated. HEENT: PERRL, ETT. OGT NECK: Supple. LUNGS: Decreased in bases HEART: S1, S2. 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 RLE stump with chronic wound. No erythema/ fluctuance/warmth. no cyanosis SKIN: Warm to touch. 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 RUE-PICC (03/09) clean General: Other (intubated.) Heart: Regular rate Lungs: Other (decrease bs) Abdomen: Normal bowel sounds Extremities: No cyanosis, Other (ANASARCA) Skin: Other (scale, lower leg ) Labs LABS Laboratory Tests Test 03/19/19 09:18 03/19/19 11:22 03/19/19 17:22 03/19/19 21:12 Sodium Level 143 mmol/L (136-145) Potassium Level 4.2 mmol/L (3.5-5.1) Chloride Level 103 mmol/L (98-107) Carbon Dioxide Level 32 mmol/L (21-32) Anion Gap 8 (6-14) Blood Urea Nitrogen 68 mg/dL (8-26) Creatinine 1.7 mg/dL (0.7-1.3) Estimated GFR (Cockcroft-Gault) 41.9 Glucose Level 310 mg/dL (70-99) Calcium Level 8.2 mg/dL (8.5-10.1) Phosphorus Level 3.6 mg/dL (2.6-4.7) Albumin 1.9 g/dL (3.4-5.0) Glucose (Fingerstick) 299 mg/dL (70-99) 314 mg/dL (70-99) 312 mg/dL (70-99) Test 03/19/19 23:58 03/20/19 05:30 03/20/19 07:51 Glucose (Fingerstick) 350 mg/dL (70-99) 306 mg/dL (70-99) Sodium Level 143 mmol/L (136-145) Potassium Level 3.9 mmol/L (3.5-5.1) Chloride Level 105 mmol/L (98-107) Carbon Dioxide Level 33 mmol/L (21-32) Anion Gap 5 (6-14) Blood Urea Nitrogen 66 mg/dL (8-26) Creatinine 1.5 mg/dL (0.7-1.3) Estimated GFR (Cockcroft-Gault) 48.4 Glucose Level 342 mg/dL (70-99) Calcium Level 7.9 mg/dL (8.5-10.1) Phosphorus Level 3.8 mg/dL (2.6-4.7) Albumin 1.7 g/dL (3.4-5.0) Assessment and Plan Assessmemt and Plan Problems Medical Problems: (1) Acute renal failure Status: Acute (2) Edema Status: Acute (3) Shortness of breath Status: Acute Comment Review of Relevant I have reviewed the following items pascual (where applicable) has been applied. Labs Laboratory Tests Test 03/18/19 08:56 03/18/19 09:00 03/18/19 11:11 03/18/19 17:24 Glucose (Fingerstick) 226 mg/dL (70-99) 245 mg/dL (70-99) 225 mg/dL (70-99) O2 Saturation 95 % (92-99) Arterial Blood pH 7.45 (7.35-7.45) Arterial Blood pCO2 at Patient Temp 50 mmHg (35-46) Arterial Blood pO2 at Patient Temp 76 mmHg (75-108) Arterial Blood HCO3 34 mmol/L (21-28) Arterial Blood Base Excess 9 mmol/L (-3-3) FiO2 95 Test 03/18/19 21:21 03/18/19 23:50 03/19/19 06:07 03/19/19 07:30 Glucose (Fingerstick) 211 mg/dL (70-99) 215 mg/dL (70-99) 265 mg/dL (70-99) O2 Saturation 97 % (92-99) Arterial Blood pH 7.42 (7.35-7.45) Arterial Blood pCO2 at Patient Temp 51 mmHg (35-46) Arterial Blood pO2 at Patient Temp 104 mmHg (75-108) Arterial Blood HCO3 32 mmol/L (21-28) Arterial Blood Base Excess 6 mmol/L (-3-3) FiO2 90 Test 03/19/19 07:40 03/19/19 09:18 03/19/19 11:22 03/19/19 17:22 Glucose (Fingerstick) 279 mg/dL (70-99) 299 mg/dL (70-99) 314 mg/dL (70-99) Sodium Level 143 mmol/L (136-145) Potassium Level 4.2 mmol/L (3.5-5.1) Chloride Level 103 mmol/L (98-107) Carbon Dioxide Level 32 mmol/L (21-32) Anion Gap 8 (6-14) Blood Urea Nitrogen 68 mg/dL (8-26) Creatinine 1.7 mg/dL (0.7-1.3) Estimated GFR (Cockcroft-Gault) 41.9 Glucose Level 310 mg/dL (70-99) Calcium Level 8.2 mg/dL (8.5-10.1) Phosphorus Level 3.6 mg/dL (2.6-4.7) Albumin 1.9 g/dL (3.4-5.0) Test 03/19/19 21:12 03/19/19 23:58 03/20/19 05:30 03/20/19 07:51 Glucose (Fingerstick) 312 mg/dL (70-99) 350 mg/dL (70-99) 306 mg/dL (70-99) Sodium Level 143 mmol/L (136-145) Potassium Level 3.9 mmol/L (3.5-5.1) Chloride Level 105 mmol/L (98-107) Carbon Dioxide Level 33 mmol/L (21-32) Anion Gap 5 (6-14) Blood Urea Nitrogen 66 mg/dL (8-26) Creatinine 1.5 mg/dL (0.7-1.3) Estimated GFR (Cockcroft-Gault) 48.4 Glucose Level 342 mg/dL (70-99) Calcium Level 7.9 mg/dL (8.5-10.1) Phosphorus Level 3.8 mg/dL (2.6-4.7) Albumin 1.7 g/dL (3.4-5.0) Laboratory Tests Test 03/19/19 09:18 03/19/19 11:22 03/19/19 17:22 03/19/19 21:12 Sodium Level 143 mmol/L (136-145) Potassium Level 4.2 mmol/L (3.5-5.1) Chloride Level 103 mmol/L (98-107) Carbon Dioxide Level 32 mmol/L (21-32) Anion Gap 8 (6-14) Blood Urea Nitrogen 68 mg/dL (8-26) Creatinine 1.7 mg/dL (0.7-1.3) Estimated GFR (Cockcroft-Gault) 41.9 Glucose Level 310 mg/dL (70-99) Calcium Level 8.2 mg/dL (8.5-10.1) Phosphorus Level 3.6 mg/dL (2.6-4.7) Albumin 1.9 g/dL (3.4-5.0) Glucose (Fingerstick) 299 mg/dL (70-99) 314 mg/dL (70-99) 312 mg/dL (70-99) Test 03/19/19 23:58 03/20/19 05:30 03/20/19 07:51 Glucose (Fingerstick) 350 mg/dL (70-99) 306 mg/dL (70-99) Sodium Level 143 mmol/L (136-145) Potassium Level 3.9 mmol/L (3.5-5.1) Chloride Level 105 mmol/L (98-107) Carbon Dioxide Level 33 mmol/L (21-32) Anion Gap 5 (6-14) Blood Urea Nitrogen 66 mg/dL (8-26) Creatinine 1.5 mg/dL (0.7-1.3) Estimated GFR (Cockcroft-Gault) 48.4 Glucose Level 342 mg/dL (70-99) Calcium Level 7.9 mg/dL (8.5-10.1) Phosphorus Level 3.8 mg/dL (2.6-4.7) Albumin 1.7 g/dL (3.4-5.0) Microbiology 03/05/19 Blood Culture - Final, Complete NO GROWTH AFTER 5 DAYS 03/08/19 - Final, Complete 03/08/19 - Final, Complete 03/08/19 - Final, Complete 03/08/19 Gram Stain Evaluation - Final, Complete 03/08/19 Sputum Culture - Final, Complete 03/08/19 Sputum Result 1 - Final, Complete 03/02/19 Urine Culture - Final, Complete 03/02/19 Urine Culture Result 1 (LUCIO) - Final, Complete 03/09/19 Aerobic Culture - Final, Complete 03/09/19 Aerobic Culture Result 1 (LUCIO) - Final, Complete 03/09/19 Gram Stain - Final, Complete 03/09/19 Gram Stain Result 1 (LUCIO) - Final, Complete 03/09/19 Gram Stain Result 2 (LUCIO) - Final, Complete Medications Current Medications Ondansetron HCl (Zofran) 4 mg PRN Q8HRS PRN IV NAUSEA/VOMITING; Start 02/27/19 at 16:45; Stop 02/28/19 at 16:44; Status DC Morphine Sulfate (Morphine Sulfate) 2 mg PRN Q2HR PRN IV PAIN; Start 02/27/19 at 16:45; Stop 02/28/19 at 16:44; Status DC Acetaminophen (Tylenol) 650 mg PRN Q4HRS PRN PO FEVER Last administered on 02/27at 21:06; Start 02/27/19 at 16:45; Stop 02/28/19 at 16:44; Status DC Dextrose (Dextrose 50%-Water Syringe) 12.5 gm PRN Q15MIN PRN IV SEE COMMENTS; Start 02/27/19 at 16:45; Stop 03/10/19 at 13:48; Status DC Heparin Sodium (Porcine) (Heparin Sodium) 5,000 unit Q8HRS SQ Last administered on 03/20/19at 05:44; Start 02/27/19 at 17:00 Lorazepam (Ativan) 1 mg PRN Q8HRS PRN IV ANXIETY / AGITATION Last administered on 03/08/19at 03:37; Start 02/28/19 at 02:45 Etomidate (Amidate) 20 mg STK-MED ONCE IV ; Start 02/28/19 at 06:59; Stop at 07:00; Status DC Rocuronium Jackson (Zemuron) 50 mg STK-MED ONCE .ROUTE ; Start 02/28/19 at 07:00 ; Stop 02/28/19 at 09:42; Status DC Dopamine HCl/ Dextrose 250 ml @ 12.266 mls/ hr CONT PRN IV SEE I/O RECORD Last administered on 02/28/19at 08:06; Start 02/28/19 at 07:15; Stop 03/17/19 at 15:50; Status DC Fentanyl Citrate 30 ml @ 0 mls/hr CONT PRN IV SEE PROTOCOL; Start 02/28/19 at 07:15; Stop 02/28/19 at 07:59; Status DC Propofol 100 ml @ 0 mls/hr CONT PRN IV SEE PROTOCOL; Start 02/28/19 at 07:15; Stop 02/28/19 at 07:59; Status DC Fentanyl Citrate (Fentanyl 2ml Vial) 25 mcg PRN Q1HR PRN IV SEE COMMENTS; Start 02/28/19 at 07:15; Stop 02/28/19 at 07:59; Status DC Fentanyl Citrate (Fentanyl 2ml Vial) 50 mcg PRN Q1HR PRN IV SEE COMMENTS; Start 02/28/19 at 07:15; Stop 02/28/19 at 07:59; Status DC Midazolam HCl 100 ml @ 0 mls/hr CONT PRN IV SEE PROTOCOL Last administered on at 06:29; Start 02/28/19 at 07:15 Sodium Chloride 1,000 ml @ 1,000 mls/hr Q1H IV Last administered on 02/28/19at 07:32; Start 02/28/19 at 07:32; Stop 02/28/19 at 10:09; Status DC Fentanyl Citrate (Fentanyl 2ml Vial) 25 mcg PRN Q30MIN PRN IV see comments; Start 02/28/19 at 07:45; Stop 02/28/19 at 09:42; Status DC Lorazepam (Ativan) 1 mg PRN Q30MIN PRN IV SEDATION; Start 02/28/19 at 07:45; Stop 02/28/19 at 09:42; Status DC Fentanyl Citrate 30 ml @ 2.5 mls/hr CONT PRN PRN IV SEE I/O RECORD Last administered on 03/05/19at 03:44; Start 02/28/19 at 07:45; Stop 03/05/19 at 04:40; Status DC Propofol 100 ml @ 0 mls/hr CONT PRN IV SEE I/O RECORD Last administered on 03/20at 07:42; Start 02/28/19 at 07:45 Vecuronium Jackson (Norcuron Bolus) 10 mg PRN Q30MIN PRN IV SHIVERING; Start at 07:45; Stop 02/28/19 at 09:42; Status DC Meperidine HCl (Demerol) 12.5 mg PRN Q30MIN PRN IV SHIVERING; Start 02/28/19 at 07:45; Stop 02/28/19 at 09:42; Status DC Multi-Ingred Cream/Lotion/Oil/ Oint (Artificial Tears Eye Ointment) 1 jennifer PRN Q6HRS PRN OU 0.5 INCH FOR DRY EYE; Start 02/28/19 at 07:45; Stop 02/28/19 at 09 :42; Status DC Famotidine (Pepcid Vial) 20 mg BID IVP Last administered on 02/28/19at 11:03; Start 02/28/19 at 09:00; Stop 02/28/19 at 14:25; Status DC Aspirin (Aspirin) 300 mg DAILY [place] ; Start 02/28/19 at 09:00; Stop 02/28/19 at 09 :42; Status DC Sodium Chloride (Normal Saline Flush) 3 ml QSHIFT PRN IV AFTER MEDS AND BLOOD DRAWS; Start 02/28/19 at 07:45 Acetaminophen (Tylenol) 650 mg Q6HRS NG ; Start 02/28/19 at 12:00; Stop at 12:00; Status DC Acetaminophen (Tylenol Supp) 650 mg PRN Q6HRS PRN [place] MILD PAIN / TEMP; Start at 07:45; Stop 03/01/19 at 07:45; Status DC Acetaminophen (Tylenol) 650 mg PRN Q6HRS PRN NG MILD PAIN / TEMP; Start at 07:45; Stop 03/01/19 at 07:45; Status DC Info (Icu Electrolyte Protocol) 1 ea DAILY PRN MC PER PROTOCOL; Start 03/02/19 at 07:45; Stop 03/02/19 at 07:45; Status DC Furosemide (Lasix) 60 mg 1X ONCE IVP Last administered on 02/28/19at 08:30; Start 02/28/19 at 08:30; Stop 02/28/19 at 08:31; Status DC Ceftriaxone Sodium (Rocephin) 1 gm Q24H IVP Last administered on 02/28/19 11: 03; Start 02/28/19 at 11:00; Stop 02/28/19 at 11:18; Status DC Calcium Chloride 1000 mg/Dextrose 60 ml @ 120 mls/hr 1X ONCE IV Last administered on 02/28/19at 11:03; Start 02/28/19 at 10:30; Stop 02/28/19 at 10:59 ; Status DC Meropenem 500 mg/ Sodium Chloride 50 ml @ 100 mls/hr Q8HRS IV Last administered on 03/03/19at 06:24; Start 02/28/19 at 14:00; Stop 03/03/19 at 07:04; Status DC Linezolid/Dextrose 300 ml @ 300 mls/hr Q12HR IV Last administered on 03/03/19at 20:00; Start 02/28/19 at 11:30; Stop 03/04/19 at 08:55; Status DC Micafungin Sodium 100 mg/Dextrose 100 ml @ 100 mls/hr Q24H IV Last administered on 03/04/19at 15:53; Start 02/28/19 at 12:00; Stop 03/05/19 at 06:47; Status DC Furosemide (Lasix) 40 mg [id number] IVP Last administered on 03/02/19at 14:06; Start 02/28/19 at 14:00; Stop 03/02/19 at 17:02; Status DC Famotidine (Pepcid Vial) 20 mg QHS IVP Last administered on 03/01/19at 21:24; Start 02/28/19 at 21:00; Stop 03/02/19 at 10:07; Status DC Albuterol/ Ipratropium (Duoneb) 3 ml RTQID NEB Last administered on 03/20/19at 07:30; Start 02/28/19 at 16:00 Haloperidol Lactate (Haldol Inj) 5 mg PRN Q6HRS PRN IVP AGITATION 2ND CHOICE Last administered on 03/09/19at 14:07; Start 02/28/19 at 15:15 Vecuronium Jackson (Norcuron Bolus) 8 mg PRN Q4HRS PRN IV MUSCLE SPASMS Last administered on 03/12/19at 23:48; Start 02/28/19 at 15:15 Perflutren Protein Type A Microsphe (Optison) 0.66 mg PRN 1X PRN IV SEE COMMENTS; Start 03/01/19 at 10:00; Stop 03/02/19 at 09:59; Status DC Digoxin (Lanoxin) 125 mcg 1X STAT IV ; Start 03/01/19 at 15:34; Stop 03/01/19 at 16:00; Status DC Sodium Chloride 500 ml @ 500 mls/hr 1X ONCE IV Last administered on at 18:46; Start 03/01/19 at 18:45; Stop 03/01/19 at 19:44; Status DC Famotidine (Pepcid Vial) 20 mg Q12HR IVP Last administered on 03/20/19at 07:47; Start 03/02/19 at 21:00 Furosemide (Lasix) 40 mg DAILY IVP Last administered on 03/04/19at 09:52; Start 03/03/19 at 09:00; Stop 03/04/19 at 12:13; Status DC Acetaminophen (Tylenol Supp) 650 mg PRN Q6HRS PRN [place] MILD PAIN / TEMP Last administered on 03/03/19at 17:39; Start 03/02/19 at 17:15 Meropenem 500 mg/ Sodium Chloride 50 ml @ 100 mls/hr Q6HRS IV Last administered on 03/05/19at 05:33; Start 03/03/19 at 12:00; Stop 03/05/19 at 06:47; Status DC Albumin Human 100 ml @ 100 mls/hr 1X ONCE IV Last administered on 03/03/19at 08 :52; Start 03/03/19 at 08:30; Stop 03/03/19 at 09:29; Status DC Atropine Sulfate (ATROPINE 0.5mg SYRINGE) 2 mg STK-MED ONCE .ROUTE ; Start 02/27 at 16:21; Stop 03/03/19 at 16:22; Status DC Dopamine HCl/ Dextrose (DOPamine 400MG/ 250ML PREMIX) 400 mg STK-MED ONCE IV ; Start 02/27/19 at 16:21; Stop 03/03/19 at 16:22; Status DC Furosemide (Lasix) 40 mg 1X ONCE IVP Last administered on 03/03/19 18:46; Start 03/03/19 at 18:45; Stop 03/03/19 at 18:46; Status DC Lorazepam 100 mg/ Sodium Chloride 100 ml @ 0 mls/hr CONT PRN IV SEE PROTOCOL Last administered on 03/03/19 22:18; Start 03/03/19 at 22:00; Stop 03/17/19 at 15 :39; Status DC Acetaminophen (Tylenol) 650 mg PRN Q6HRS PRN PEG MILD PAIN / TEMP Last administered on 03/10/19 20:48; Start 03/04/19 at 11:45 Furosemide (Lasix) 40 mg BID92 IVP Last administered on 03/06/19 08:38; Start 03/04/19 at 14:00; Stop 03/06/19 at 13:30; Status DC Fentanyl Citrate 30 ml @ 0 mls/hr CONT PRN IV SEE PROTOCOL Last administered on 03/20/19 08:15; Start 03/05/19 at 04:45 Cefepime HCl (Maxipime) 2 gm Q8HRS IVP Last administered on 03/10/19 05:43; Start 03/05/19 at 06:45; Stop 03/10/19 at 08:29; Status DC Metronidazole 100 ml @ 100 mls/hr Q8HRS IV Last administered on 03/10/19 05:45 ; Start 03/05/19 at 06:45; Stop 03/10/19 at 08:29; Status DC Linezolid/Dextrose 300 ml @ 300 mls/hr Q12HR IV Last administered on 03/05/19 21:24; Start 03/05/19 at 09:00; Stop 03/06/19 at 06:42; Status DC Metoclopramide HCl (Reglan Vial) 10 mg QIDACHS IV Last administered on 20:43; Start 03/05/19 at 11:30; Stop 03/07/19 at 07:37; Status DC Insulin Glargine (Lantus) 12 units BID SQ Last administered on 03/09/19 09:29; Start 03/05/19 at 09:00; Stop 03/09/19 at 17:11; Status DC Digoxin (Lanoxin) 500 mcg 1X ONCE IV Last administered on 03/06/19 00:48; Start 03/06/19 at 00:45; Stop 03/06/19 at 00:46; Status DC Metoprolol Tartrate (Lopressor Vial) 5 mg 1X ONCE IVP Last administered on 03/06at 00:53; Start 03/06/19 at 00:45; Stop 03/06/19 at 00:46; Status DC Sodium Chloride 500 ml @ 500 mls/hr 1X ONCE IV Last administered on 03/06/19 00:49; Start 03/06/19 at 00:45; Stop 03/06/19 at 01:44; Status DC Nystatin (Mycostatin) 1 jennifer BID TP Last administered on 03/20/19 07:47; Start 03/06/19 at 09:00 Sodium Cl/Sod Bicarb/Potass Cl/ PEG (Golytely) 2,000 ml 1X ONCE PO Last administered on 03/06/19 09:33; Start 03/06/19 at 08:00; Stop 03/06/19 at 08:01; Status DC Furosemide (Lasix) 40 mg DAILY08 IVP Last administered on 03/09/19 09:27; Start 03/07/19 at 08:00; Stop 03/09/19 at 12:45; Status DC Metoprolol Tartrate (Lopressor Vial) 10 mg 1X ONCE IVP Last administered on 16:08; Start 03/06/19 at 15:15; Stop 03/06/19 at 15:16; Status DC Metoprolol Tartrate (Lopressor Vial) 5 mg Q6HRS IVP Last administered on 17:03; Start 03/06/19 at 18:00; Stop 03/07/19 at 18:27; Status DC Aspirin (Children'S Aspirin) 81 mg 1X ONCE PO Last administered on 03/06/19 18 :18; Start 03/06/19 at 17:00; Stop 03/06/19 at 17:01; Status DC Aspirin (Children'S Aspirin) 81 mg DAILYWBKFT PO Last administered on 07:47; Start 03/07/19 at 08:00 Labetalol HCl (Normodyne Iv Push) 20 mg PRN Q2HR PRN IVP HYPERTENSION, SEE COMMENTS Last administered on 03/06/19at 21:29; Start 03/06/19 at 17:15 Digoxin (Lanoxin) 250 mcg 1X ONCE IV Last administered on 03/06/19at 22:00; Start 03/06/19 at 22:00; Stop 03/06/19 at 22:01; Status DC Diltiazem HCl 125 mg/Dextrose 125 ml @ 5 mls/hr CONT PRN IV SEE I/O RECORD Last administered on 03/12/19at 08:20; Start 03/06/19 at 23:00; Stop 03/12/19 at 11:03; Status DC Metoclopramide HCl (Reglan Vial) 10 mg Q6HRS IV ; Start 03/07/19 at 08:00; Stop 03/08/19 at 07:51; Status DC Metoprolol Tartrate (Lopressor Vial) 5 mg Q6HRS IVP Last administered on at 07:47; Start 03/08/19 at 12:00 Furosemide (Lasix) 40 mg 1X ONCE IVP Last administered on 03/08/19at 21:21; Start 03/08/19 at 21:00; Stop 03/08/19 at 21:01; Status DC Furosemide (Lasix) 20 mg DAILY08 IVP ; Start 03/10/19 at 08:00; Stop 03/10/19 at 08:00; Status DC Furosemide (Lasix) 20 mg DAILY08 IVP Last administered on 03/14/19at 07:41; Start 03/10/19 at 08:00; Stop 03/15/19 at 07:32; Status DC Insulin Glargine (Lantus) 16 units BID SQ Last administered on 03/12/19at 00:09 ; Start 03/09/19 at 21:00; Stop 03/12/19 at 07:18; Status DC Insulin Human Lispro (HumaLOG) 0-9 UNITS Q6HRS SQ Last administered on at 05:45; Start 03/09/19 at 18:00; Stop 03/12/19 at 07:18; Status DC Dextrose (Dextrose 50%-Water Syringe) 12.5 gm PRN Q15MIN PRN IV SEE COMMENTS; Start 03/09/19 at 17:15 Cefepime HCl (Maxipime) 2 gm Q12HR IVP Last administered on 03/20/19at 07:48; Start 03/10/19 at 21:00 Insulin Human Lispro (HumaLOG) 15 units 1X ONCE SQ Last administered on at 00:14; Start 03/11/19 at 00:00; Stop 03/11/19 at 00:01; Status DC Insulin Glargine (Lantus) 20 units BID SQ Last administered on 03/17/19at 08:32 ; Start 03/12/19 at 09:00; Stop 03/17/19 at 10:46; Status DC Insulin Human Lispro (HumaLOG) 0-9 UNITS Q6HRS SQ Last administered on at 05:45; Start 03/12/19 at 12:00 Diltiazem HCl (Cardizem) 30 mg Q6HRS PO Last administered on 03/20/19at 05:43; Start 03/12/19 at 12:00 Furosemide (Lasix) 20 mg 1X ONCE IVP Last administered on 03/13/19at 11:04; Start 03/13/19 at 10:30; Stop 03/13/19 at 10:31; Status DC Furosemide (Lasix) 20 mg 1X ONCE IVP Last administered on 03/14/19at 07:40; Start 03/14/19 at 07:15; Stop 03/14/19 at 14:05; Status DC Furosemide (Lasix) 40 mg Q8HRS IVP Last administered on 03/17/19at 05:49; Start 03/14/19 at 22:00; Stop 03/17/19 at 10:58; Status DC Albuterol Sulfate (Ventolin Neb Soln) 2.5 mg 1X ONCE NEB Last administered on 03/16/19at 04:00; Start 03/16/19 at 04:00; Stop 03/16/19 at 04:01; Status DC Methylprednisolone Sodium Succinate (SOLU-Medrol 40MG VIAL) 80 mg 1X ONCE IV Last administered on 03/16/19at 04:17; Start 03/16/19 at 04:30; Stop 03/16/19 at 04:31; Status DC Furosemide (Lasix) 20 mg 1X ONCE IVP Last administered on 03/16/19at 04:17; Start 03/16/19 at 04:30; Stop 03/16/19 at 04:31; Status DC Insulin Glargine (Lantus) 25 units BID SQ Last administered on 03/20/19at 07:52 ; Start 03/17/19 at 21:00 Insulin Human Lispro (HumaLOG) 10 units Q6HRS SQ ; Start 03/17/19 at 12:00; Stop 03/17/19 at 13:32; Status DC Furosemide (Lasix) 40 mg QD IVP Last administered on 03/18/19at 05:55; Start at 06:00; Stop 03/18/19 at 10:54; Status DC Insulin Human Lispro (HumaLOG) 3 units Q6HRS SQ Last administered on 03/19/19at 06:12; Start 03/17/19 at 18:00; Stop 03/19/19 at 08:28; Status DC Azithromycin 250 mg/Sodium Chloride 250 ml @ 250 mls/hr Q24H IV Last administered on 03/20/19at 07:48; Start 03/18/19 at 08:00 Alteplase, Recombinant (Cathflo For Central Catheter Clearance) 1 mg 1X ONCE INT CAT Last administered on 03/18/19at 09:21; Start 03/18/19 at 07:30; Stop at 07:31; Status DC Alteplase, Recombinant (Cathflo For Central Catheter Clearance) 1 mg 1X ONCE INT CAT Last administered on 03/18/19at 11:04; Start 03/18/19 at 07:30; Stop at 07:31; Status DC Alteplase, Recombinant (Cathflo For Central Catheter Clearance) 1 mg 1X ONCE INT CAT Last administered on 03/18/19at 13:26; Start 03/18/19 at 07:30; Stop at 07:31; Status DC Furosemide (Lasix) 60 mg 1X ONCE IVP Last administered on 03/18/19at 11:04; Start 03/18/19 at 10:54; Stop 03/18/19 at 10:55; Status DC Furosemide (Lasix) 40 mg Q8HRS IVP ; Start 03/18/19 at 14:00; Stop 03/18/19 at 17:53; Status DC Digoxin (Lanoxin) 250 mcg 1X ONCE IV Last administered on 03/18/19at 15:48; Start 03/18/19 at 15:30; Stop 03/18/19 at 15:33; Status DC Furosemide (Lasix) 40 mg Q8HRS IVP Last administered on 03/20/19at 05:42; Start 03/18/19 at 20:00 Digoxin (Lanoxin) 500 mcg 1X ONCE IV Last administered on 03/18/19at 19:35; Start 03/18/19 at 20:00; Stop 03/18/19 at 20:01; Status DC Insulin Human Lispro (HumaLOG) 6 units Q6HRS SQ Last administered on 03/20/19at 05:45; Start 03/19/19 at 12:00 Active Scripts Active Reported Proair Hfa Inhaler (Albuterol Sulfate) 8.5 Gm Hfa.aer.ad 1 Puff INH PRN Q6HRS PRN Lantus Solostar (Insulin Glargine,Hum.rec.anlog) 100 Unit/1 Ml Insuln.pen 20 Unit SQ QHS Humalog (Insulin Lispro) 100 Unit/1 Ml Cartridge 6 Unit SQ TIDWMEALS Doxazosin Mesylate 2 Mg Tablet 2 Mg PO DAILY Omeprazole 40 Mg Capsule.dr 40 Mg PO DAILY Amlodipine Besylate 10 Mg Tablet 10 Mg PO DAILY Atorvastatin Calcium 20 Mg Tablet 20 Mg PO DAILY Atenolol 50 Mg Tablet 50 Mg PO DAILY Losartan Potassium 100 Mg Tablet 100 Mg PO DAILY Aspirin 81 Mg Tab.chew 81 Mg PO DAILY Glyburide 5 Mg Tablet 1 Tab PO BID Vitals/I & O Vital Sign - Last 24 Hours 03/19/19 03/19/19 03/19/19 03/19/19 09:00 09:05 09:45 10:00 Pulse 84 84 Resp 21 22 B/P (MAP) 141/79 (99) 132/69 (90) Pulse Ox 98 98 80 95 O2 Delivery Ventilator Ventilator Ventilator 03/19/19 03/19/19 03/19/19 03/19/19 11:00 11:19 11:19 12:00 Temp 99.0 99.0 Pulse 82 80 120 76 Resp 22 22 B/P (MAP) 133/69 (90) 135/69 (91) Pulse Ox 82 76 O2 Delivery Ventilator Ventilator 03/19/19 03/19/19 03/19/1918/19 12:00 12:55 13:00 14:00 Pulse 74 86 Resp 22 21 B/P (MAP) 129/59 (82) 131/64 (86) Pulse Ox 95 97 96 O2 Delivery Mechanical Ventilator Ventilator Ventilator Ventilator O2 Flow Rate 96.0 03/19/19 03/19/19 03/19/19 03/19/19 15:00 16:00 16:00 16:00 Pulse 86 86 Resp 21 21 B/P (MAP) 128/60 (82) 135/67 (89) Pulse Ox 95 95 95 O2 Delivery Ventilator Mechanical Ventilator Ventilator Ventilator O2 Flow Rate 96.0 03/19/19 03/19/19 03/19/19 03/19/19 17:00 17:08 17:09 18:00 Temp 99.0 99.0 Pulse 82 81 81 76 Resp 21 B/P (MAP) 145/73 (97) 119/67 (84) Pulse Ox 95 98 O2 Delivery Ventilator Ventilator 03/19/19 03/19/19 03/19/19 03/19/19 18:02 19:00 20:00 20:00 Temp 97.8 97.8 Pulse 74 72 Resp 21 21 B/P (MAP) 124/67 (86) 127/62 (83) Pulse Ox 98 98 98 O2 Delivery Ventilator Ventilator Ventilator Mechanical Ventilator 03/19/19 03/19/19 03/19/19 03/19/19 20:15 21:00 21:21 22:00 Pulse 82 80 Resp 21 21 21 B/P (MAP) 140/63 (88) 119/63 (81) Pulse Ox 98 98 98 98 O2 Delivery Ventilator Ventilator Ventilator Ventilator 03/19/19 03/19/19 03/19/19 03/20/19 23:00 23:28 23:59 00:00 Temp 97.5 97.5 Pulse 78 75 Resp 21 21 B/P (MAP) 131/65 (87) 140/65 (90) Pulse Ox 98 98 99 O2 Delivery Ventilator Ventilator Mechanical Ventilator Ventilator 03/20/19 03/20/19 03/20/19 03/20/19 00:06 00:06 01:00 01:44 Pulse 79 79 72 Resp 21 B/P (MAP) 131/65 131/65 137/65 (89) Pulse Ox 99 98 O2 Delivery Ventilator Ventilator 03/20/19 03/20/19 03/20/19 03/20/19 02:00 03:00 03:27 04:00 Temp 98.1 98.1 Pulse 70 71 70 Resp 21 21 21 B/P (MAP) 133/63 (86) 137/66 (89) 126/59 (81) Pulse Ox 98 98 98 98 O2 Delivery Ventilator Ventilator Ventilator Ventilator 03/20/19 03/20/19 03/20/19 03/20/19 04:00 04:44 05:00 05:14 Pulse 68 Resp 21 22 B/P (MAP) 146/65 (92) Pulse Ox 98 99 93 O2 Delivery Mechanical Ventilator Ventilator Ventilator Ventilator 03/20/19 03/20/19 03/20/19 03/20/19 05:26 05:43 05:43 06:00 Pulse 70 70 68 Resp 21 B/P (MAP) 117/56 117/56 117/56 (76) Pulse Ox 93 94 O2 Delivery Ventilator Ventilator 03/20/19 03/20/19 03/20/19 03/20/19 07:00 07:31 07:47 08:15 Pulse 67 75 Resp 22 22 B/P (MAP) 138/70 (92) Pulse Ox 95 94 97 O2 Delivery Ventilator Ventilator Intake and Output 03/19/19 03/19/19 03/20/19 15:00 23:00 07:00 Intake Total 830 ml 2786 ml 2425 ml Output Total 1270 ml 2775 ml 925 ml Balance -440 ml 11 ml 1500 ml YRIS RUIZ MD Mar 20, 2019 08:49
--- NOTE | 2019-03-20 09:58 | PDOC ---
PULMONARY PROGRESS NOTES Subjective ON AC MODE SEDATED Now on 90% FIO2/15 PEEP, CXR worse today Vitals Vital Signs Date Time Temp Pulse Resp B/P (MAP) Pulse Ox O2 Delivery O2 Flow Rate FiO2 03/20/19 09:00 70 22 131/63 (85) 96 Ventilator 03/20/19 08:00 98.6 98.6 03/19/19 16:00 96.0 Comments ros as mentioned as above discussed w rn, rt, other sys otherwise neg on vent sedated HEENT: Other (nc at perrl nose clear orally intubated neck no lad, no thyromegaly) Lungs: Other (decrease bs) Cardiovascular: S1, S2, Other (decrease bs) Abdomen: Soft, Non-tender, Other (OBESE no mass) Extremities: Other (venous stasis and edema left, right BKA) Skin: Warm Labs Laboratory Tests Test 03/18/19 11:11 03/18/19 17:24 03/18/19 21:21 03/18/19 23:50 Glucose (Fingerstick) 245 mg/dL (70-99) 225 mg/dL (70-99) 211 mg/dL (70-99) 215 mg/dL (70-99) Test 03/19/19 06:07 03/19/19 07:30 03/19/19 07:40 03/19/19 09:18 Glucose (Fingerstick) 265 mg/dL (70-99) 279 mg/dL (70-99) O2 Saturation 97 % (92-99) Arterial Blood pH 7.42 (7.35-7.45) Arterial Blood pCO2 at Patient Temp 51 mmHg (35-46) Arterial Blood pO2 at Patient Temp 104 mmHg (75-108) Arterial Blood HCO3 32 mmol/L (21-28) Arterial Blood Base Excess 6 mmol/L (-3-3) FiO2 90 Sodium Level 143 mmol/L (136-145) Potassium Level 4.2 mmol/L (3.5-5.1) Chloride Level 103 mmol/L (98-107) Carbon Dioxide Level 32 mmol/L (21-32) Anion Gap 8 (6-14) Blood Urea Nitrogen 68 mg/dL (8-26) Creatinine 1.7 mg/dL (0.7-1.3) Estimated GFR (Cockcroft-Gault) 41.9 Glucose Level 310 mg/dL (70-99) Calcium Level 8.2 mg/dL (8.5-10.1) Phosphorus Level 3.6 mg/dL (2.6-4.7) Albumin 1.9 g/dL (3.4-5.0) Test 03/19/19 11:22 03/19/19 17:22 03/19/19 21:12 03/19/19 23:58 Glucose (Fingerstick) 299 mg/dL (70-99) 314 mg/dL (70-99) 312 mg/dL (70-99) 350 mg/dL (70-99) Test 03/20/19 05:30 03/20/19 05:35 03/20/19 07:51 Sodium Level 143 mmol/L (136-145) Potassium Level 3.9 mmol/L (3.5-5.1) Chloride Level 105 mmol/L (98-107) Carbon Dioxide Level 33 mmol/L (21-32) Anion Gap 5 (6-14) Blood Urea Nitrogen 66 mg/dL (8-26) Creatinine 1.5 mg/dL (0.7-1.3) Estimated GFR (Cockcroft-Gault) 48.4 Glucose Level 342 mg/dL (70-99) Calcium Level 7.9 mg/dL (8.5-10.1) Phosphorus Level 3.8 mg/dL (2.6-4.7) Albumin 1.7 g/dL (3.4-5.0) Glucose (Fingerstick) 276 mg/dL (70-99) 306 mg/dL (70-99) Laboratory Tests Test 03/19/19 11:22 03/19/19 17:22 03/19/19 21:12 03/19/19 23:58 Glucose (Fingerstick) 299 mg/dL (70-99) 314 mg/dL (70-99) 312 mg/dL (70-99) 350 mg/dL (70-99) Test 03/20/19 05:30 03/20/19 05:35 03/20/19 07:51 Sodium Level 143 mmol/L (136-145) Potassium Level 3.9 mmol/L (3.5-5.1) Chloride Level 105 mmol/L (98-107) Carbon Dioxide Level 33 mmol/L (21-32) Anion Gap 5 (6-14) Blood Urea Nitrogen 66 mg/dL (8-26) Creatinine 1.5 mg/dL (0.7-1.3) Estimated GFR (Cockcroft-Gault) 48.4 Glucose Level 342 mg/dL (70-99) Calcium Level 7.9 mg/dL (8.5-10.1) Phosphorus Level 3.8 mg/dL (2.6-4.7) Albumin 1.7 g/dL (3.4-5.0) Glucose (Fingerstick) 276 mg/dL (70-99) 306 mg/dL (70-99) Medications Active Scripts Medications Dose Route/Sig Max Daily Dose Days Date Category Proair Hfa Inhaler (Albuterol Sulfate) 8.5 Gm Hfa.aer.ad 1 Puff INH PRN Q6HRS PRN 02/27/19 Reported Lantus Solostar (Insulin Glargine,Hum.rec.anlog) 100 Unit/1 Ml Insuln.pen 20 Unit SQ QHS 02/27/19 Reported Humalog (Insulin Lispro) 100 Unit/1 Ml Cartridge 6 Unit SQ TIDWMEALS 02/27/19 Reported Doxazosin Mesylate 2 Mg Tablet 2 Mg PO DAILY 02/27/19 Reported Omeprazole 40 Mg Capsule.dr 40 Mg PO DAILY 02/27/19 Reported Amlodipine Besylate 10 Mg Tablet 10 Mg PO DAILY 02/27/19 Reported Atorvastatin Calcium 20 Mg Tablet 20 Mg PO DAILY 02/27/19 Reported Atenolol 50 Mg Tablet 50 Mg PO DAILY 02/27/19 Reported Losartan Potassium 100 Mg Tablet 100 Mg PO DAILY 02/27/19 Reported Aspirin 81 Mg Tab.chew 81 Mg PO DAILY 02/27/19 Reported Glyburide 5 Mg Tablet 1 Tab PO BID 11/09/16 Reported Comments CXR REVIEWED 03/20 worsening infiltrates, R Impression . 1. Acute hypoxemic /hypercapnic respiratory failure./ ARDS 2. sepsis./ ARDS 3. In-house cardiopulmonary arrest. 4. Normal EF / mild Pulmonary HTN 5. Acute on chronic right-sided heart failure. 6. Possible pneumonia. 7. Morbid obesity. 8. Diabetes. 9. ANASARCA 10. Abnormal CXR/ susperimposed CHF right effusion 03/18, effusion better 03/20 but infiltrates worse 11. azotemia <Conclusion>ECHO The left ventricular systolic function is normal. The ejection fraction is 60-65%. There is normal LV segmental wall motion. Transmitral Doppler flow pattern is Grade I-abnormal relaxation pattern. Trace tricuspid regurgitation. Estimated PAP 33-38 mmHg. There is no evidence of significant pericardial effusion. VENOUS 02/28 Impression: 1. There is no evidence of deep venous thrombosis from the bilateral common femoral to popliteal veins. 2. There is nonspecific right groin lymph node. Plan . AC MODE , PEEP of 15 AND 90% FI02, cont vent support, setting reviewed, No room for any weaning too unstable for trach will initiate high dose steroids for ARDS CXR f/u ANITBX PER ID Diuresis, monitor k, cr bilateral venous Dopplers of lower extremities.NEG DVT and GI prophylaxis. Follow Cardiology/ Renal.rec Enteral nutrition elevate hob discussed w rn, rt DNR Overall Prognosis guarded . d/w sister/ Daughter . They understand critical illness. Will continue current aggressive care. Not stable for tracheostomy ALEJANDRINA WILBURN MD Mar 20, 2019 09:58
[2019-03-20 10:13] LABS: FIO2 ABG 80; PO2 ABG 48 mmHg (75-108)
[2019-03-20] MEDS: methylPREDNISolone SOD SUCC PF 125 MG/2 ML VIAL. IV SCH ×2 (11:40→21:11)
--- NOTE | 2019-03-20 14:37 | PDOC ---
SUBJECTIVE ROS Intubated OBJECTIVE Vital Signs Vital Signs Date Time Temp Pulse Resp B/P (MAP) Pulse Ox O2 Delivery O2 Flow Rate FiO2 03/20/19 12:00 Mechanical Ventilator 03/20/19 12:00 89 22 115/61 (79) 97 03/20/19 08:00 98.6 98.6 03/19/19 16:00 96.0 I & 0 Intake and Output 03/20/19 07:00 Intake Total 6041 ml Output Total 4970 ml Balance 1071 ml IV Total 1178 ml Tube Feeding 3363 ml Other 1500 ml Output Urine Total 4970 ml Gastric Drainage Total 0 ml PHYSICAL EXAM Physical Exam GENERAL: Sedated and intubated. HEENT: PERRL, ETT. OGT NECK: Supple. LUNGS: Decreased in bases HEART: S1, S2. regular ABDOMEN: Obese, distended, decreased bowel sounds, GENITOURINARY: [place] He has scrotal swelling EXTREMITIES: Generalized anasarca. RLE stump with chronic wound. No erythema/ fluctuance/warmth. SKIN: 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 groin - fading LATCHER: Sedated on vent DIAGNOSIS/ASSESSMENT Assessment & Plan LEONARD- Cr up to 2-2.3 improving 1.5 stable Lytes and acid base Acute hypoxemic /hypercapnic respiratory failure./ ARDS Anasarca- Improved IV Lasix Q 8 hrs .improved CxR Hypernatremia - improved , normal Continue free water flushes , Right Renal mass Acute respiratory failure, intubated, increased infiltrates today - ARDS Scrotal edema/cellulitis- Improved urology consulted In hospital CP arrest COMMENT/RELEVANT DATA Meds Current Medications Medications (Trade) Dose Ordered Sig/Lula Start Time Stop Time Status Last Admin Dose Admin Acetaminophen (Tylenol Supp) 650 mg PRN Q6HRS PRN 03/02/19 17:15 03/03/19 17:39 650 MG Acetaminophen (Tylenol) 650 mg PRN Q6HRS PRN 03/04/19 11:45 03/10/19 20:48 650 MG Albumin Human 100 ml @ 100 mls/hr 1X ONCE 03/03/19 08:30 03/03/19 09:29 DC 03/03/19 08:52 100 MLS/HR Albuterol Sulfate (Ventolin Neb Soln) 2.5 mg 1X ONCE 03/16/19 04:00 03/16/19 04:01 DC 03/16/19 04:00 2.5 MG Albuterol/ Ipratropium (Duoneb) 3 ml RTQID 02/28/19 16:00 03/20/19 11:42 3 ML Alteplase, Recombinant (Cathflo For Central Catheter Clearance) 1 mg 1X ONCE 03/18/19 07:30 03/18/19 07:31 DC 03/18/19 13:26 1 MG Aspirin (Aspirin) 300 mg DAILY 02/28/19 09:00 02/28/19 09:42 DC Aspirin (Children'S Aspirin) 81 mg DAILYWBKFT 03/07/19 08:00 03/20/19 07:47 81 MG Atropine Sulfate (ATROPINE 0.5mg SYRINGE) 2 mg STK-MED ONCE 02/27/19 16:21 03/03/19 16:22 DC Azithromycin 250 mg/Sodium Chloride 250 ml @ 250 mls/hr Q24H 03/18/19 08:00 03/20/19 07:48 250 MLS/HR Calcium Chloride 1000 mg/Dextrose 60 ml @ 120 mls/hr 1X ONCE 02/28/19 10:30 02/28/19 10:59 DC 02/28/19 11:03 120 MLS/HR Cefepime HCl (Maxipime) 2 gm Q12HR 03/10/19 21:00 03/20/19 07:48 2 GM Ceftriaxone Sodium (Rocephin) 1 gm Q24H 02/28/19 11:00 02/28/19 11:18 DC 02/28/19 11:03 1 GM Dextrose (Dextrose 50%-Water Syringe) 12.5 gm PRN Q15MIN PRN 03/09/19 17:15 Digoxin (Lanoxin) 500 mcg 1X ONCE 03/18/19 20:00 03/18/19 20:01 DC 03/18/19 19:35 500 MCG Diltiazem HCl (Cardizem) 30 mg Q6HRS 03/12/19 12:00 03/20/19 11:40 30 MG Diltiazem HCl 125 mg/Dextrose 125 ml @ 5 mls/hr CONT PRN 03/06/19 23:00 03/12/19 11:03 DC 03/12/19 08:20 5 MLS/HR Dopamine HCl/ Dextrose (DOPamine 400MG/ 250ML PREMIX) 400 mg STK-MED ONCE 02/27/19 16:21 03/03/19 16:22 DC Etomidate (Amidate) 20 mg STK-MED ONCE 02/28/19 06:59 02/28/19 07:00 DC Famotidine (Pepcid Vial) 20 mg Q12HR 03/02/19 21:00 03/20/19 07:47 20 MG Fentanyl Citrate 30 ml @ 0 mls/hr CONT PRN 03/05/19 04:45 03/20/19 08:15 4.95 MLS/HR Fentanyl Citrate (Fentanyl 2ml Vial) 25 mcg PRN Q30MIN PRN 02/28/19 07:45 02/28/19 09:42 DC Furosemide (Lasix) 80 mg Q8HRS 03/20/19 14:00 Haloperidol Lactate (Haldol Inj) 5 mg PRN Q6HRS PRN 02/28/19 15:15 03/09/19 14:07 5 MG Heparin Sodium (Porcine) (Heparin Sodium) 5,000 unit Q8HRS 02/27/19 17:00 03/20/19 05:44 5,000 UNIT Info (Icu Electrolyte Protocol) 1 ea DAILY PRN 03/02/19 07:45 03/02/19 07:45 DC Insulin Glargine (Lantus) 25 units BID 03/17/19 21:00 03/20/19 07:52 25 UNITS Insulin Human Lispro (HumaLOG) 9 units Q6HRS 03/20/19 12:00 03/20/19 11:47 9 UNITS Labetalol HCl (Normodyne Iv Push) 20 mg PRN Q2HR PRN 03/06/19 17:15 03/06/19 21:29 20 MG Linezolid/Dextrose 300 ml @ 300 mls/hr Q12HR 03/05/19 09:00 03/06/19 06:42 DC 03/05/19 21:24 300 MLS/HR Lorazepam (Ativan) 1 mg PRN Q30MIN PRN 02/28/19 07:45 02/28/19 09:42 DC Lorazepam 100 mg/ Sodium Chloride 100 ml @ 0 mls/hr CONT PRN 03/03/19 22:00 03/17/19 15:39 DC 03/03/19 22:18 1 MLS/HR Meperidine HCl (Demerol) 12.5 mg PRN Q30MIN PRN 02/28/19 07:45 02/28/19 09:42 DC Meropenem 500 mg/ Sodium Chloride 50 ml @ 100 mls/hr Q6HRS 03/03/19 12:00 03/05/19 06:47 DC 03/05/19 05:33 100 MLS/HR Methylprednisolone Sodium Succinate (SOLU-Medrol 40MG VIAL) 80 mg 1X ONCE 03/16/19 04:30 03/16/19 04:31 DC 03/16/19 04:17 80 MG Methylprednisolone Sodium Succinate (SOLU-Medrol 125MG VIAL) 80 mg Q8HRS 03/20/19 11:00 03/20/19 11:40 80 MG Metoclopramide HCl (Reglan Vial) 10 mg Q6HRS 03/07/19 08:00 03/08/19 07:51 DC Metoprolol Tartrate (Lopressor Vial) 5 mg Q6HRS 03/08/19 12:00 03/20/19 07:47 5 MG Metronidazole 100 ml @ 100 mls/hr Q8HRS 03/05/19 06:45 03/10/19 08:29 DC 03/10/19 05:45 100 MLS/HR Micafungin Sodium 100 mg/Dextrose 100 ml @ 100 mls/hr Q24H 02/28/19 12:00 03/05/19 06:47 DC 03/04/19 15:53 100 MLS/HR Midazolam HCl 100 ml @ 0 mls/hr CONT PRN 02/28/19 07:15 03/20/19 06:29 5 MLS/HR Morphine Sulfate (Morphine Sulfate) 2 mg PRN Q2HR PRN 02/27/19 16:45 02/28/19 16:44 DC Multi-Ingred Cream/Lotion/Oil/ Oint (Artificial Tears Eye Ointment) 1 jennifer PRN Q6HRS PRN 02/28/19 07:45 02/28/19 09:42 DC Nystatin (Mycostatin) 1 jennifer BID 03/06/19 09:00 03/20/19 07:47 1 JENNIFER Ondansetron HCl (Zofran) 4 mg PRN Q8HRS PRN 02/27/19 16:45 02/28/19 16:44 DC Perflutren Protein Type A Microsphe (Optison) 0.66 mg PRN 1X PRN 03/01/19 10:00 03/02/19 09:59 DC Propofol 100 ml @ 0 mls/hr CONT PRN 02/28/19 07:45 03/20/19 07:42 18.5 MLS/HR Rocuronium [place] (Zemuron) 50 mg STK-MED ONCE 02/28/19 07:00 02/28/19 09:42 DC Sodium Chloride 500 ml @ 500 mls/hr 1X ONCE 03/06/19 00:45 03/06/19 01:44 DC 03/06/19 00:49 500 MLS/HR Sodium Chloride (Normal Saline Flush) 3 ml QSHIFT PRN 02/28/19 07:45 Sodium Cl/Sod Bicarb/Potass Cl/ PEG (Golytely) 2,000 ml 1X ONCE 03/06/19 08:00 03/06/19 08:01 DC 03/06/19 09:33 2,000 ML Vecuronium [place] (Norcuron Bolus) 8 mg PRN Q4HRS PRN 02/28/19 15:15 03/12/19 23:48 8 MG Lab Laboratory Tests Test 03/19/19 17:22 03/19/19 21:12 03/19/19 23:58 03/20/19 05:30 Glucose (Fingerstick) 314 mg/dL (70-99) 312 mg/dL (70-99) 350 mg/dL (70-99) Sodium Level 143 mmol/L (136-145) Potassium Level 3.9 mmol/L (3.5-5.1) Chloride Level 105 mmol/L (98-107) Carbon Dioxide Level 33 mmol/L (21-32) Anion Gap 5 (6-14) Blood Urea Nitrogen 66 mg/dL (8-26) Creatinine 1.5 mg/dL (0.7-1.3) Estimated GFR (Cockcroft-Gault) 48.4 Glucose Level 342 mg/dL (70-99) Calcium Level 7.9 mg/dL (8.5-10.1) Phosphorus Level 3.8 mg/dL (2.6-4.7) Albumin 1.7 g/dL (3.4-5.0) Test 03/20/19 05:35 03/20/19 07:35 03/20/19 07:51 03/20/19 11:44 Glucose (Fingerstick) 276 mg/dL (70-99) 306 mg/dL (70-99) 352 mg/dL (70-99) O2 Saturation 83 % (92-99) Arterial Blood pH 7.42 (7.35-7.45) Arterial Blood pCO2 at Patient Temp 58 mmHg (35-46) Arterial Blood pO2 at Patient Temp 48 mmHg (75-108) Arterial Blood HCO3 36 mmol/L (21-28) Arterial Blood Base Excess 10 mmol/L (-3-3) FiO2 80 Results All relevant outside records, renal labs, imaging studies, telemetry/EKG's were reviewed. Other 1. Stable tube positions. 2. Worsening bilateral pulmonary infiltrates with associated bilateral pleural fluid. GALO AMBRIZ MD Mar 20, 2019 14:37
[2019-03-20] MEDS: FUROSEMIDE 100 MG/10 ML VIAL. IVP SCH ×2 (15:18→21:11)
[2019-03-20] MEDS ORDERED: ALTEPLASE 1MG SYRINGE. INT CAT ONE ×3 (20:00)
[2019-03-21] VITALS (24 sets, daily range): BP systolic 63–175; BP diastolic 44–77
[2019-03-21] MEDS: dilTIAZem HCL 30 MG TABLET PO SCH ×5 (01:00→23:37)
[2019-03-21] MEDS: METOPROLOL TARTRATE 5 MG/5 ML VIAL. IVP SCH ×5 (01:00→23:36)
[2019-03-21] MEDS: INSULIN LISPRO 300 UNITS/3 ML INSULN.PEN. SQ SCH ×4 (01:14→06:36)
[2019-03-21] MEDS: PROPOFOL 100 ML IV PRN ×5 (01:23→21:38)
[2019-03-21] MEDS: MIDAZOLAM 100mg/100ml NS BAG 100 ML IV PRN ×2 (04:27→23:35)
[2019-03-21] MEDS: FUROSEMIDE 100 MG/10 ML VIAL. IVP SCH ×3 (05:52→21:39)
[2019-03-21] MEDS: methylPREDNISolone SOD SUCC PF 125 MG/2 ML VIAL. IV SCH ×3 (05:53→21:39)
[2019-03-21] MEDS: HEPARIN for SUB-Q USE 5,000 UNIT/ML VIAL. SQ SCH ×3 (05:53→21:43)
[2019-03-21] MEDS: IPRATRPIUM/ALBUTEROL 0.5/2.5MG 3 ML NEBU. NEB SCH ×4 (07:10→20:44)
[2019-03-21 07:22] LABS: BASE EXCESS ABG 10 mmol/L (-3-3); HCO3 ABG 35 mmol/L (21-28); PCO2 ABG 48 mmHg (35-46); PO2 ABG 108 mmHg (75-108); SAT O2 ABG 98 % (92-99)
[2019-03-21 07:29] LABS: ALBUMIN 1.9 g/dL (3.4-5.0); CALCIUM 8.4 mg/dL (8.5-10.1); CREATININE 1.6 mg/dL (0.7-1.3); GFR 44.9; PHOSPHORUS 3.6 mg/dL (2.6-4.7); POTASSIUM 4.2 mmol/L (3.5-5.1)
--- NOTE | 2019-03-21 07:31 | PDOC ---
PULMONARY PROGRESS NOTES Subjective ON AC MODE SEDATED, propofol fentanyl versed Now on 80% FIO2/15 PEEP, mod secretion Vitals Vital Signs Date Time Temp Pulse Resp B/P (MAP) Pulse Ox O2 Delivery O2 Flow Rate FiO2 03/21/19 07:10 98 Ventilator 03/21/19 06:00 69 21 168/77 (107) 03/21/19 04:00 99.8 99.8 Comments ros as mentioned as above discussed w rn, rt, other sys otherwise neg on vent sedated HEENT: Other (nc at perrl nose clear orally intubated neck no lad, no thyromegaly) Lungs: Crackles, Other (decrease bs) Cardiovascular: S1, S2, Other (decrease bs) Abdomen: Soft, Non-tender, Other (OBESE no mass) Extremities: Other (venous stasis and edema left, right BKA) Skin: Warm Labs Laboratory Tests Test 03/19/19 07:40 03/19/19 09:18 03/19/19 11:22 03/19/19 17:22 Glucose (Fingerstick) 279 mg/dL (70-99) 299 mg/dL (70-99) 314 mg/dL (70-99) Sodium Level 143 mmol/L (136-145) Potassium Level 4.2 mmol/L (3.5-5.1) Chloride Level 103 mmol/L (98-107) Carbon Dioxide Level 32 mmol/L (21-32) Anion Gap 8 (6-14) Blood Urea Nitrogen 68 mg/dL (8-26) Creatinine 1.7 mg/dL (0.7-1.3) Estimated GFR (Cockcroft-Gault) 41.9 Glucose Level 310 mg/dL (70-99) Calcium Level 8.2 mg/dL (8.5-10.1) Phosphorus Level 3.6 mg/dL (2.6-4.7) Albumin 1.9 g/dL (3.4-5.0) Test 03/19/19 21:12 03/19/19 23:58 03/20/19 05:30 03/20/19 05:35 Glucose (Fingerstick) 312 mg/dL (70-99) 350 mg/dL (70-99) 276 mg/dL (70-99) Sodium Level 143 mmol/L (136-145) Potassium Level 3.9 mmol/L (3.5-5.1) Chloride Level 105 mmol/L (98-107) Carbon Dioxide Level 33 mmol/L (21-32) Anion Gap 5 (6-14) Blood Urea Nitrogen 66 mg/dL (8-26) Creatinine 1.5 mg/dL (0.7-1.3) Estimated GFR (Cockcroft-Gault) 48.4 Glucose Level 342 mg/dL (70-99) Calcium Level 7.9 mg/dL (8.5-10.1) Phosphorus Level 3.8 mg/dL (2.6-4.7) Albumin 1.7 g/dL (3.4-5.0) Test 03/20/19 07:35 03/20/19 07:51 03/20/19 11:44 03/20/19 17:30 O2 Saturation 83 % (92-99) Arterial Blood pH 7.42 (7.35-7.45) Arterial Blood pCO2 at Patient Temp 58 mmHg (35-46) Arterial Blood pO2 at Patient Temp 48 mmHg (75-108) Arterial Blood HCO3 36 mmol/L (21-28) Arterial Blood Base Excess 10 mmol/L (-3-3) FiO2 80 Glucose (Fingerstick) 306 mg/dL (70-99) 352 mg/dL (70-99) 358 mg/dL (70-99) Test 03/20/19 21:25 03/21/19 00:59 03/21/19 05:56 03/21/19 07:15 Glucose (Fingerstick) 422 mg/dL (70-99) 481 mg/dL (70-99) 435 mg/dL (70-99) O2 Saturation 98 % (92-99) Arterial Blood pH 7.48 (7.35-7.45) Arterial Blood pCO2 at Patient Temp 48 mmHg (35-46) Arterial Blood pO2 at Patient Temp 108 mmHg (75-108) Arterial Blood HCO3 35 mmol/L (21-28) Arterial Blood Base Excess 10 mmol/L (-3-3) FiO2 90% vent Laboratory Tests Test 03/20/19 07:35 03/20/19 07:51 03/20/19 11:44 03/20/19 17:30 O2 Saturation 83 % (92-99) Arterial Blood pH 7.42 (7.35-7.45) Arterial Blood pCO2 at Patient Temp 58 mmHg (35-46) Arterial Blood pO2 at Patient Temp 48 mmHg (75-108) Arterial Blood HCO3 36 mmol/L (21-28) Arterial Blood Base Excess 10 mmol/L (-3-3) FiO2 80 Glucose (Fingerstick) 306 mg/dL (70-99) 352 mg/dL (70-99) 358 mg/dL (70-99) Test 03/20/19 21:25 03/21/19 00:59 03/21/19 05:56 03/21/19 07:15 Glucose (Fingerstick) 422 mg/dL (70-99) 481 mg/dL (70-99) 435 mg/dL (70-99) O2 Saturation 98 % (92-99) Arterial Blood pH 7.48 (7.35-7.45) Arterial Blood pCO2 at Patient Temp 48 mmHg (35-46) Arterial Blood pO2 at Patient Temp 108 mmHg (75-108) Arterial Blood HCO3 35 mmol/L (21-28) Arterial Blood Base Excess 10 mmol/L (-3-3) FiO2 90% vent Medications Active Scripts Medications Dose Route/Sig Max Daily Dose Days Date Category Proair Hfa Inhaler (Albuterol Sulfate) 8.5 Gm Hfa.aer.ad 1 Puff INH PRN Q6HRS PRN 02/27/19 Reported Lantus Solostar (Insulin Glargine,Hum.rec.anlog) 100 Unit/1 Ml Insuln.pen 20 Unit SQ QHS 02/27/19 Reported Humalog (Insulin Lispro) 100 Unit/1 Ml Cartridge 6 Unit SQ TIDWMEALS 02/27/19 Reported Doxazosin Mesylate 2 Mg Tablet 2 Mg PO DAILY 02/27/19 Reported Omeprazole 40 Mg Capsule.dr 40 Mg PO DAILY 02/27/19 Reported Amlodipine Besylate 10 Mg Tablet 10 Mg PO DAILY 02/27/19 Reported Atorvastatin Calcium 20 Mg Tablet 20 Mg PO DAILY 02/27/19 Reported Atenolol 50 Mg Tablet 50 Mg PO DAILY 02/27/19 Reported Losartan Potassium 100 Mg Tablet 100 Mg PO DAILY 02/27/19 Reported Aspirin 81 Mg Tab.chew 81 Mg PO DAILY 02/27/19 Reported Glyburide 5 Mg Tablet 1 Tab PO BID 11/09/16 Reported Comments CXR REVIEWED 03/21 No significant interval change in diffuse infiltrates and effusion in both lungs. Questionable improved aeration of both upper lobes. Stable support lines and tubes. Impression . 1. Acute hypoxemic /hypercapnic respiratory failure./ ARDS 2. sepsis./ ARDS 3. In-house cardiopulmonary arrest. 4. Normal EF / mild Pulmonary HTN 5. Acute on chronic right-sided heart failure. 6. Possible pneumonia. 7. Morbid obesity. 8. Diabetes. 9. ANASARCA 10. Abnormal CXR/ susperimposed CHF right effusion 03/18, effusion better 03/20 but infiltrates worse 11. azotemia <Conclusion>ECHO The left ventricular systolic function is normal. The ejection fraction is 60-65%. There is normal LV segmental wall motion. Transmitral Doppler flow pattern is Grade I-abnormal relaxation pattern. Trace tricuspid regurgitation. Estimated PAP 33-38 mmHg. There is no evidence of significant pericardial effusion. VENOUS 02/28 Impression: 1. There is no evidence of deep venous thrombosis from the bilateral common femoral to popliteal veins. 2. There is nonspecific right groin lymph node. Plan . AC MODE , PEEP of 15 AND 80% FI02, cont vent support, setting reviewed, titrate fio2 as tolerated No room for any weaning cont solumedrol 80 mg q 8 hrs ARDS CXR f/u ANITBX PER ID Diuresis, monitor k, cr bilateral venous Dopplers of lower extremities.NEG hep, pepcid for DVT and GI prophylaxis. Follow Cardiology/ Renal.rec Enteral nutrition elevate hob discussed w rn, rt DNR Overall Prognosis guarded . dr french d/w sister/ Daughter . They understand critical illness. Will continue current aggressive care. ? tracheostomy when more stable MALINDA CR MD Mar 21, 2019 07:31
[2019-03-21] MEDS: FAMOTIDINE 20 MG/2 ML VIAL IVP SCH ×2 (08:22→21:39)
[2019-03-21] MEDS: ASPIRIN CHEWABLE 81 MG TABLET. PO SCH (08:22)
[2019-03-21] MEDS: CEFEPIME HCL IV Push 2 GM VIAL. IVP SCH (08:26)
--- NOTE | 2019-03-21 08:48 | PDOC ---
Infectious Disease Note Subjective Subjective Pt remains intubated and sedated still requiring PEEP of 15; FiO2 80% Tube feedings No fevers last 72 hours ROS ROS unobtainable Vital Sign Vital Signs Vital Signs Date Time Temp Pulse Resp B/P (MAP) Pulse Ox O2 Delivery O2 Flow Rate FiO2 03/21/19 08:25 69 168/77 03/21/19 07:10 98 Ventilator 03/21/19 06:00 21 03/21/19 04:00 99.8 99.8 Physical Exam PHYSICAL EXAM GENERAL: Sedated and intubated. HEENT: Pupils equal, ETT. OGT LUNGS: Diminished HEART: S1, S2. regular ABDOMEN: Obese, distended, decreased bowel sounds, no grimace or guarding to palpation GENITOURINARY: [place] - less scrotal edema EXTREMITIES: Generalized anasarca. RLE stump with chronic wound. No erythema/ fluctuance/warmth. no cyanosis SKIN: Warm to touch. Flack rash resolved CREDIT OFFICER: Unresponsive/sedated on vent RUE-PICC (03/09) clean Labs Lab Laboratory Tests Test 03/20/19 11:44 03/20/19 17:30 03/20/19 21:25 03/21/19 00:59 Glucose (Fingerstick) 352 mg/dL (70-99) 358 mg/dL (70-99) 422 mg/dL (70-99) 481 mg/dL (70-99) Test 03/21/19 05:56 03/21/19 06:30 03/21/19 07:15 Glucose (Fingerstick) 435 mg/dL (70-99) Sodium Level 142 mmol/L (136-145) Potassium Level 4.2 mmol/L (3.5-5.1) Chloride Level 101 mmol/L (98-107) Carbon Dioxide Level 32 mmol/L (21-32) Anion Gap 9 (6-14) Blood Urea Nitrogen 72 mg/dL (8-26) Creatinine 1.6 mg/dL (0.7-1.3) Estimated GFR (Cockcroft-Gault) 44.9 Glucose Level 494 mg/dL (70-99) Calcium Level 8.4 mg/dL (8.5-10.1) Phosphorus Level 3.6 mg/dL (2.6-4.7) Albumin 1.9 g/dL (3.4-5.0) O2 Saturation 98 % (92-99) Arterial Blood pH 7.48 (7.35-7.45) Arterial Blood pCO2 at Patient Temp 48 mmHg (35-46) Arterial Blood pO2 at Patient Temp 108 mmHg (75-108) Arterial Blood HCO3 35 mmol/L (21-28) Arterial Blood Base Excess 10 mmol/L (-3-3) FiO2 90% vent Micro cath tip, 03/09 AEROBIC RES 1 Final Comment No growth in 56 - 72 hours. Objective Assessment Fever resolved Flank rash - no Eosinophilia but ? drug - had been on micafungin so less likely yeast, better Tachycardia - s/p Bolus/Digoxin and Metoprolol Increased GI residuals - Has been on/off ? 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 better Status post code. Fluid overload ,CHF Acute kidney injury, improving Distant history of group B strep, Acinetobacter, Porphyromonas, plus anaerobes. Plan Plan of Care Cefepime (03/10) wean soon (on azithromycin per primary since 03/18 ) Now on steroids Cultures negative Today's cxr pending Supportive care Prognosis poor D/c Cefepime and monitor D/w nursing Attending Co-Sign Attending Co-Sign The patient was seen and interviewed as well as examined at the bedside. The chart was reviewed. The case was discussed. Agree with the plan of care. LYNDSAY PIZARRO APRN Mar 21, 2019 08:48 QUIANA PACK MD Mar 21, 2019 12:51
[2019-03-21] MEDS: INSULIN GLARGINE 300 UNITS/3 ML INSULN.PEN. SQ SCH (08:55)
[2019-03-21] MEDS: NYSTATIN 100,000 UNIT/GM TOPICAL CREAM 15GM TUBE. TP SCH ×2 (08:55→21:45)
--- NOTE | 2019-03-21 09:09 | RAD ---
Exam performed: One view chest HISTORY: ARDS. DATE OF SERVICE: 03/21/2019. COMPARISON: 03/20/2019. Single AP semiupright portable view chest findings: Allowing for the difference in technique and positioning between the 2 studies, there does not appear to be a significant interval change in diffuse bilateral pulmonary infiltrates in both lungs predominantly involving the mid and lower lungs. Bilateral pleural effusions. There is perhaps minimally improved aeration of lung apices. There is a right arm PICC line, endotracheal tube and feeding tube in place. IMPRESSION: No significant interval change in diffuse infiltrates and effusion in both lungs. Questionable improved aeration of both upper lobes. Stable support lines and tubes. Electronically signed by: Damaris Kumar MD (03/21/2019 9:06 AM) [facility]
[2019-03-21] MEDS ORDERED: DEXTROSE 50% 25 GM / 50ML DISP.SYRIN. IV PRN (10:00)
--- NOTE | 2019-03-21 10:05 | PDOC ---
PROGRESS NOTES Chief Complaint Chief Complaint Acute respiratory failure secondary to congestive heart failure, most probably acute on chronic diastolic. s/p intubation. Myocardial infarction ruled out. Hypernatremia secondary to severe dehydration will need to provide water flushes in order to correct electrolyte disturbance. High residuals on tube feedings no evidence of obstructive pattern on x ray done 03/05/2019 Bilateral general scrotal swelling and tenderness. Dm2 obesity, extreme, morbid hx RLE BKA RLE stump with chronic wound. No erythema/warmth left foot nail onychomycosis needs attention when more clinically stable Acute renal failure ATN chronic venous insuff left lower leg Bilateral lower lobe consolidation concerning for multifocal pneumonia Right renal hypodensity measuring 2.5 cm Anasarca. bilateral external iliac lymphadenopathy Trace tricuspid regurgitation. Estimated PAP 33-38 mmHg. Diastolic CHF History of Present Illness History of Present Illness Continue with supportive measures ventilatory support - on 80% oxygen and 15 of PEEP, poor prognosis, Dr Vinson will address on Saturday if patient does not have improvement, he has been on support for over 10 days now FiO2 down to 80%, PEEP 15. Started high dose steroids for ARDS yesterday, has UOP as well and Cr was better today from 1.9-->1.5. CXR worse today Daughter arrived and is not currently bedside. Glucose climbing into mid 200s despite insulin regimen. >900cc UOP Plan: follow recommendations from business system consultant. UROLOGY CONSULT reviewed no intervention needed except for elevation and diuresis ID CONSULTED - continue with antibiotic as per ID Cont ARDS treatment. Is better than yesterday, increase FiO2 again Increase glycemic control, will start insulin GTT for hyperglycemia and hypertriglyceridemia Vitals Vitals Vital Signs Date Time Temp Pulse Resp B/P (MAP) Pulse Ox O2 Delivery O2 Flow Rate FiO2 03/21/19 09:24 98 Ventilator 03/21/19 08:41 96.0 03/21/19 08:25 69 168/77 03/21/19 06:00 21 03/21/19 04:00 99.8 99.8 Physical Exam Physical Exam GENERAL: Sedated and intubated. HEENT: Pupils equal, ETT. OGT LUNGS: Diminished HEART: S1, S2. regular ABDOMEN: Obese, distended, decreased bowel sounds, no grimace or guarding to palpation GENITOURINARY: [place] - less scrotal edema EXTREMITIES: Generalized anasarca. RLE stump with chronic wound. No erythema/ fluctuance/warmth. no cyanosis SKIN: Warm to touch. Flack rash resolved [employer]: Unresponsive/sedated on vent RUE-PICC (03/09) clean General: Other (intubated.) Heart: Regular rate Lungs: Other (decrease bs) Abdomen: Normal bowel sounds Extremities: No cyanosis, Other (ANASARCA) Skin: Other (scale, lower leg ) Labs LABS Laboratory Tests Test 03/20/19 11:44 03/20/19 17:30 03/20/19 21:25 03/21/19 00:59 Glucose (Fingerstick) 352 mg/dL (70-99) 358 mg/dL (70-99) 422 mg/dL (70-99) 481 mg/dL (70-99) Test 03/21/19 05:56 03/21/19 06:30 03/21/19 07:15 03/21/19 08:57 Glucose (Fingerstick) 435 mg/dL (70-99) 437 mg/dL (70-99) Sodium Level 142 mmol/L (136-145) Potassium Level 4.2 mmol/L (3.5-5.1) Chloride Level 101 mmol/L (98-107) Carbon Dioxide Level 32 mmol/L (21-32) Anion Gap 9 (6-14) Blood Urea Nitrogen 72 mg/dL (8-26) Creatinine 1.6 mg/dL (0.7-1.3) Estimated GFR (Cockcroft-Gault) 44.9 Glucose Level 494 mg/dL (70-99) Calcium Level 8.4 mg/dL (8.5-10.1) Phosphorus Level 3.6 mg/dL (2.6-4.7) Albumin 1.9 g/dL (3.4-5.0) Triglycerides Level 824 mg/dL (0-150) O2 Saturation 98 % (92-99) Arterial Blood pH 7.48 (7.35-7.45) Arterial Blood pCO2 at Patient Temp 48 mmHg (35-46) Arterial Blood pO2 at Patient Temp 108 mmHg (75-108) Arterial Blood HCO3 35 mmol/L (21-28) Arterial Blood Base Excess 10 mmol/L (-3-3) FiO2 90% vent Assessment and Plan Assessmemt and Plan Problems Medical Problems: (1) Acute renal failure Status: Acute (2) Edema Status: Acute (3) Shortness of breath Status: Acute Comment Review of Relevant I have reviewed the following items pascual (where applicable) has been applied. Labs Laboratory Tests Test 03/19/19 11:22 03/19/19 17:22 03/19/19 21:12 03/19/19 23:58 Glucose (Fingerstick) 299 mg/dL (70-99) 314 mg/dL (70-99) 312 mg/dL (70-99) 350 mg/dL (70-99) Test 03/20/19 05:30 03/20/19 05:35 03/20/19 07:35 03/20/19 07:51 Sodium Level 143 mmol/L (136-145) Potassium Level 3.9 mmol/L (3.5-5.1) Chloride Level 105 mmol/L (98-107) Carbon Dioxide Level 33 mmol/L (21-32) Anion Gap 5 (6-14) Blood Urea Nitrogen 66 mg/dL (8-26) Creatinine 1.5 mg/dL (0.7-1.3) Estimated GFR (Cockcroft-Gault) 48.4 Glucose Level 342 mg/dL (70-99) Calcium Level 7.9 mg/dL (8.5-10.1) Phosphorus Level 3.8 mg/dL (2.6-4.7) Albumin 1.7 g/dL (3.4-5.0) Glucose (Fingerstick) 276 mg/dL (70-99) 306 mg/dL (70-99) O2 Saturation 83 % (92-99) Arterial Blood pH 7.42 (7.35-7.45) Arterial Blood pCO2 at Patient Temp 58 mmHg (35-46) Arterial Blood pO2 at Patient Temp 48 mmHg (75-108) Arterial Blood HCO3 36 mmol/L (21-28) Arterial Blood Base Excess 10 mmol/L (-3-3) FiO2 80 Test 03/20/19 11:44 03/20/19 17:30 03/20/19 21:25 03/21/19 00:59 Glucose (Fingerstick) 352 mg/dL (70-99) 358 mg/dL (70-99) 422 mg/dL (70-99) 481 mg/dL (70-99) Test 03/21/19 05:56 03/21/19 06:30 03/21/19 07:15 03/21/19 08:57 Glucose (Fingerstick) 435 mg/dL (70-99) 437 mg/dL (70-99) Sodium Level 142 mmol/L (136-145) Potassium Level 4.2 mmol/L (3.5-5.1) Chloride Level 101 mmol/L (98-107) Carbon Dioxide Level 32 mmol/L (21-32) Anion Gap 9 (6-14) Blood Urea Nitrogen 72 mg/dL (8-26) Creatinine 1.6 mg/dL (0.7-1.3) Estimated GFR (Cockcroft-Gault) 44.9 Glucose Level 494 mg/dL (70-99) Calcium Level 8.4 mg/dL (8.5-10.1) Phosphorus Level 3.6 mg/dL (2.6-4.7) Albumin 1.9 g/dL (3.4-5.0) Triglycerides Level 824 mg/dL (0-150) O2 Saturation 98 % (92-99) Arterial Blood pH 7.48 (7.35-7.45) Arterial Blood pCO2 at Patient Temp 48 mmHg (35-46) Arterial Blood pO2 at Patient Temp 108 mmHg (75-108) Arterial Blood HCO3 35 mmol/L (21-28) Arterial Blood Base Excess 10 mmol/L (-3-3) FiO2 90% vent Laboratory Tests Test 03/20/19 11:44 03/20/19 17:30 03/20/19 21:25 03/21/19 00:59 Glucose (Fingerstick) 352 mg/dL (70-99) 358 mg/dL (70-99) 422 mg/dL (70-99) 481 mg/dL (70-99) Test 03/21/19 05:56 03/21/19 06:30 03/21/19 07:15 03/21/19 08:57 Glucose (Fingerstick) 435 mg/dL (70-99) 437 mg/dL (70-99) Sodium Level 142 mmol/L (136-145) Potassium Level 4.2 mmol/L (3.5-5.1) Chloride Level 101 mmol/L (98-107) Carbon Dioxide Level 32 mmol/L (21-32) Anion Gap 9 (6-14) Blood Urea Nitrogen 72 mg/dL (8-26) Creatinine 1.6 mg/dL (0.7-1.3) Estimated GFR (Cockcroft-Gault) 44.9 Glucose Level 494 mg/dL (70-99) Calcium Level 8.4 mg/dL (8.5-10.1) Phosphorus Level 3.6 mg/dL (2.6-4.7) Albumin 1.9 g/dL (3.4-5.0) Triglycerides Level 824 mg/dL (0-150) O2 Saturation 98 % (92-99) Arterial Blood pH 7.48 (7.35-7.45) Arterial Blood pCO2 at Patient Temp 48 mmHg (35-46) Arterial Blood pO2 at Patient Temp 108 mmHg (75-108) Arterial Blood HCO3 35 mmol/L (21-28) Arterial Blood Base Excess 10 mmol/L (-3-3) FiO2 90% vent Microbiology 03/05/19 Blood Culture - Final, Complete NO GROWTH AFTER 5 DAYS 03/08/19 - Final, Complete 03/08/19 - Final, Complete 03/08/19 - Final, Complete 03/08/19 Gram Stain Evaluation - Final, Complete 03/08/19 Sputum Culture - Final, Complete 03/08/19 Sputum Result 1 - Final, Complete 03/02/19 Urine Culture - Final, Complete 03/02/19 Urine Culture Result 1 (LUCIO) - Final, Complete 03/09/19 Aerobic Culture - Final, Complete 03/09/19 Aerobic Culture Result 1 (LUCIO) - Final, Complete 03/09/19 Gram Stain - Final, Complete 03/09/19 Gram Stain Result 1 (LUCIO) - Final, Complete 03/09/19 Gram Stain Result 2 (LUCIO) - Final, Complete Medications Current Medications Ondansetron HCl (Zofran) 4 mg PRN Q8HRS PRN IV NAUSEA/VOMITING; Start 02/27/19 at 16:45; Stop 02/28/19 at 16:44; Status DC Morphine Sulfate (Morphine Sulfate) 2 mg PRN Q2HR PRN IV PAIN; Start 02/27/19 at 16:45; Stop 02/28/19 at 16:44; Status DC Acetaminophen (Tylenol) 650 mg PRN Q4HRS PRN PO FEVER Last administered on 02/27at 21:06; Start 02/27/19 at 16:45; Stop 02/28/19 at 16:44; Status DC Dextrose (Dextrose 50%-Water Syringe) 12.5 gm PRN Q15MIN PRN IV SEE COMMENTS; Start 02/27/19 at 16:45; Stop 03/10/19 at 13:48; Status DC Heparin Sodium (Porcine) (Heparin Sodium) 5,000 unit Q8HRS SQ Last administered on 03/21/19at 05:53; Start 02/27/19 at 17:00 Lorazepam (Ativan) 1 mg PRN Q8HRS PRN IV ANXIETY / AGITATION Last administered on 03/08/19at 03:37; Start 02/28/19 at 02:45 Etomidate (Amidate) 20 mg STK-MED ONCE IV ; Start 02/28/19 at 06:59; Stop at 07:00; Status DC Rocuronium [place] (Zemuron) 50 mg STK-MED ONCE .ROUTE ; Start 02/28/19 at 07:00 ; Stop 02/28/19 at 09:42; Status DC Dopamine HCl/ Dextrose 250 ml @ 12.266 mls/ hr CONT PRN IV SEE I/O RECORD Last administered on 02/28/19at 08:06; Start 02/28/19 at 07:15; Stop 03/17/19 at 15:50; Status DC Fentanyl Citrate 30 ml @ 0 mls/hr CONT PRN IV SEE PROTOCOL; Start 02/28/19 at 07:15; Stop 02/28/19 at 07:59; Status DC Propofol 100 ml @ 0 mls/hr CONT PRN IV SEE PROTOCOL; Start 02/28/19 at 07:15; Stop 02/28/19 at 07:59; Status DC Fentanyl Citrate (Fentanyl 2ml Vial) 25 mcg PRN Q1HR PRN IV SEE COMMENTS; Start 02/28/19 at 07:15; Stop 02/28/19 at 07:59; Status DC Fentanyl Citrate (Fentanyl 2ml Vial) 50 mcg PRN Q1HR PRN IV SEE COMMENTS; Start 02/28/19 at 07:15; Stop 02/28/19 at 07:59; Status DC Midazolam HCl 100 ml @ 0 mls/hr CONT PRN IV SEE PROTOCOL Last administered on at 04:27; Start 02/28/19 at 07:15 Sodium Chloride 1,000 ml @ 1,000 mls/hr Q1H IV Last administered on 02/28/19at 07:32; Start 02/28/19 at 07:32; Stop 02/28/19 at 10:09; Status DC Fentanyl Citrate (Fentanyl 2ml Vial) 25 mcg PRN Q30MIN PRN IV see comments; Start 02/28/19 at 07:45; Stop 02/28/19 at 09:42; Status DC Lorazepam (Ativan) 1 mg PRN Q30MIN PRN IV SEDATION; Start 02/28/19 at 07:45; Stop 02/28/19 at 09:42; Status DC Fentanyl Citrate 30 ml @ 2.5 mls/hr CONT PRN PRN IV SEE I/O RECORD Last administered on 03/05/19at 03:44; Start 02/28/19 at 07:45; Stop 03/05/19 at 04:40; Status DC Propofol 100 ml @ 0 mls/hr CONT PRN IV SEE I/O RECORD Last administered on 03/21at 08:28; Start 02/28/19 at 07:45 Vecuronium [place] (Norcuron Bolus) 10 mg PRN Q30MIN PRN IV SHIVERING; Start at 07:45; Stop 02/28/19 at 09:42; Status DC Meperidine HCl (Demerol) 12.5 mg PRN Q30MIN PRN IV SHIVERING; Start 02/28/19 at 07:45; Stop 02/28/19 at 09:42; Status DC Multi-Ingred Cream/Lotion/Oil/ Oint (Artificial Tears Eye Ointment) 1 jennifer PRN Q6HRS PRN OU 0.5 INCH FOR DRY EYE; Start 02/28/19 at 07:45; Stop 02/28/19 at 09 :42; Status DC Famotidine (Pepcid Vial) 20 mg BID IVP Last administered on 02/28/19at 11:03; Start 02/28/19 at 09:00; Stop 02/28/19 at 14:25; Status DC Aspirin (Aspirin) 300 mg DAILY [place] ; Start 02/28/19 at 09:00; Stop 02/28/19 at 09 :42; Status DC Sodium Chloride (Normal Saline Flush) 3 ml QSHIFT PRN IV AFTER MEDS AND BLOOD DRAWS; Start 02/28/19 at 07:45 Acetaminophen (Tylenol) 650 mg Q6HRS NG ; Start 02/28/19 at 12:00; Stop at 12:00; Status DC Acetaminophen (Tylenol Supp) 650 mg PRN Q6HRS PRN [place] MILD PAIN / TEMP; Start at 07:45; Stop 03/01/19 at 07:45; Status DC Acetaminophen (Tylenol) 650 mg PRN Q6HRS PRN NG MILD PAIN / TEMP; Start at 07:45; Stop 03/01/19 at 07:45; Status DC Info (Icu Electrolyte Protocol) 1 ea DAILY PRN MC PER PROTOCOL; Start 03/02/19 at 07:45; Stop 03/02/19 at 07:45; Status DC Furosemide (Lasix) 60 mg 1X ONCE IVP Last administered on 02/28/19at 08:30; Start 02/28/19 at 08:30; Stop 02/28/19 at 08:31; Status DC Ceftriaxone Sodium (Rocephin) 1 gm Q24H IVP Last administered on 02/28/19at 11: 03; Start 02/28/19 at 11:00; Stop 02/28/19 at 11:18; Status DC Calcium Chloride 1000 mg/Dextrose 60 ml @ 120 mls/hr 1X ONCE IV Last administered on 02/28/19at 11:03; Start 02/28/19 at 10:30; Stop 02/28/19 at 10:59 ; Status DC Meropenem 500 mg/ Sodium Chloride 50 ml @ 100 mls/hr Q8HRS IV Last administered on 03/03/19at 06:24; Start 02/28/19 at 14:00; Stop 03/03/19 at 07:04; Status DC Linezolid/Dextrose 300 ml @ 300 mls/hr Q12HR IV Last administered on 03/03/19at 20:00; Start 02/28/19 at 11:30; Stop 03/04/19 at 08:55; Status DC Micafungin Sodium 100 mg/Dextrose 100 ml @ 100 mls/hr Q24H IV Last administered on 03/04/19at 15:53; Start 02/28/19 at 12:00; Stop 03/05/19 at 06:47; Status DC Furosemide (Lasix) 40 mg [id number] IVP Last administered on 03/02/19 14:06; Start 02/28/19 at 14:00; Stop 03/02/19 at 17:02; Status DC Famotidine (Pepcid Vial) 20 mg QHS IVP Last administered on 03/01/19at 21:24; Start 02/28/19 at 21:00; Stop 03/02/19 at 10:07; Status DC Albuterol/ Ipratropium (Duoneb) 3 ml RTQID NEB Last administered on 03/21/19at 07:10; Start 02/28/19 at 16:00 Haloperidol Lactate (Haldol Inj) 5 mg PRN Q6HRS PRN IVP AGITATION 2ND CHOICE Last administered on 03/09/19 14:07; Start 02/28/19 at 15:15 Vecuronium [place] (Norcuron Bolus) 8 mg PRN Q4HRS PRN IV MUSCLE SPASMS Last administered on 03/12/19at 23:48; Start 02/28/19 at 15:15 Perflutren Protein Type A Microsphe (Optison) 0.66 mg PRN 1X PRN IV SEE COMMENTS; Start 03/01/19 at 10:00; Stop 03/02/19 at 09:59; Status DC Digoxin (Lanoxin) 125 mcg 1X STAT IV ; Start 03/01/19 at 15:34; Stop 03/01/19 at 16:00; Status DC Sodium Chloride 500 ml @ 500 mls/hr 1X ONCE IV Last administered on at 18:46; Start 03/01/19 at 18:45; Stop 03/01/19 at 19:44; Status DC Famotidine (Pepcid Vial) 20 mg Q12HR IVP Last administered on 03/21/19 08:22; Start 03/02/19 at 21:00 Furosemide (Lasix) 40 mg DAILY IVP Last administered on 03/04/19 09:52; Start 03/03/19 at 09:00; Stop 03/04/19 at 12:13; Status DC Acetaminophen (Tylenol Supp) 650 mg PRN Q6HRS PRN [place] MILD PAIN / TEMP Last administered on 03/03/19 17:39; Start 03/02/19 at 17:15 Meropenem 500 mg/ Sodium Chloride 50 ml @ 100 mls/hr Q6HRS IV Last administered on 03/05/19 05:33; Start 03/03/19 at 12:00; Stop 03/05/19 at 06:47; Status DC Albumin Human 100 ml @ 100 mls/hr 1X ONCE IV Last administered on 03/03/19 08 :52; Start 03/03/19 at 08:30; Stop 03/03/19 at 09:29; Status DC Atropine Sulfate (ATROPINE 0.5mg SYRINGE) 2 mg STK-MED ONCE .ROUTE ; Start 02/27 at 16:21; Stop 03/03/19 at 16:22; Status DC Dopamine HCl/ Dextrose (DOPamine 400MG/ 250ML PREMIX) 400 mg STK-MED ONCE IV ; Start 02/27/19 at 16:21; Stop 03/03/19 at 16:22; Status DC Furosemide (Lasix) 40 mg 1X ONCE IVP Last administered on 03/03/19 18:46; Start 03/03/19 at 18:45; Stop 03/03/19 at 18:46; Status DC Lorazepam 100 mg/ Sodium Chloride 100 ml @ 0 mls/hr CONT PRN IV SEE PROTOCOL Last administered on 03/03/19 22:18; Start 03/03/19 at 22:00; Stop 03/17/19 at 15 :39; Status DC Acetaminophen (Tylenol) 650 mg PRN Q6HRS PRN PEG MILD PAIN / TEMP Last administered on 03/10/19 20:48; Start 03/04/19 at 11:45 Furosemide (Lasix) 40 mg BID92 IVP Last administered on 03/06/19 08:38; Start 03/04/19 at 14:00; Stop 03/06/19 at 13:30; Status DC Fentanyl Citrate 30 ml @ 0 mls/hr CONT PRN IV SEE PROTOCOL Last administered on 03/21/19 08:41; Start 03/05/19 at 04:45 Cefepime HCl (Maxipime) 2 gm Q8HRS IVP Last administered on 03/10/19 05:43; Start 03/05/19 at 06:45; Stop 03/10/19 at 08:29; Status DC Metronidazole 100 ml @ 100 mls/hr Q8HRS IV Last administered on 03/10/19 05:45 ; Start 03/05/19 at 06:45; Stop 03/10/19 at 08:29; Status DC Linezolid/Dextrose 300 ml @ 300 mls/hr Q12HR IV Last administered on 03/05/19 21:24; Start 03/05/19 at 09:00; Stop 03/06/19 at 06:42; Status DC Metoclopramide HCl (Reglan Vial) 10 mg QIDACHS IV Last administered on 20:43; Start 03/05/19 at 11:30; Stop 03/07/19 at 07:37; Status DC Insulin Glargine (Lantus) 12 units BID SQ Last administered on 03/09/19 09:29; Start 03/05/19 at 09:00; Stop 03/09/19 at 17:11; Status DC Digoxin (Lanoxin) 500 mcg 1X ONCE IV Last administered on 03/06/19at 00:48; Start 03/06/19 at 00:45; Stop 03/06/19 at 00:46; Status DC Metoprolol Tartrate (Lopressor Vial) 5 mg 1X ONCE IVP Last administered on 03/06 00:53; Start 03/06/19 at 00:45; Stop 03/06/19 at 00:46; Status DC Sodium Chloride 500 ml @ 500 mls/hr 1X ONCE IV Last administered on 03/06/19 00:49; Start 03/06/19 at 00:45; Stop 03/06/19 at 01:44; Status DC Nystatin (Mycostatin) 1 jennifer BID TP Last administered on 03/21/19at 08:55; Start 03/06/19 at 09:00 Sodium Cl/Sod Bicarb/Potass Cl/ PEG (Golytely) 2,000 ml 1X ONCE PO Last administered on 03/06/19 09:33; Start 03/06/19 at 08:00; Stop 03/06/19 at 08:01; Status DC Furosemide (Lasix) 40 mg DAILY08 IVP Last administered on 03/09/19 09:27; Start 03/07/19 at 08:00; Stop 03/09/19 at 12:45; Status DC Metoprolol Tartrate (Lopressor Vial) 10 mg 1X ONCE IVP Last administered on 03/06/19at 16:08; Start 03/06/19 at 15:15; Stop 03/06/19 at 15:16; Status DC Metoprolol Tartrate (Lopressor Vial) 5 mg Q6HRS IVP Last administered on at 17:03; Start 03/06/19 at 18:00; Stop 03/07/19 at 18:27; Status DC Aspirin (Children'S Aspirin) 81 mg 1X ONCE PO Last administered on 03/06/19at 18 :18; Start 03/06/19 at 17:00; Stop 03/06/19 at 17:01; Status DC Aspirin (Children'S Aspirin) 81 mg DAILYWBKFT PO Last administered on at 08:22; Start 03/07/19 at 08:00 Labetalol HCl (Normodyne Iv Push) 20 mg PRN Q2HR PRN IVP HYPERTENSION, SEE COMMENTS Last administered on 03/06/19at 21:29; Start 03/06/19 at 17:15 Digoxin (Lanoxin) 250 mcg 1X ONCE IV Last administered on 03/06/19at 22:00; Start 03/06/19 at 22:00; Stop 03/06/19 at 22:01; Status DC Diltiazem HCl 125 mg/Dextrose 125 ml @ 5 mls/hr CONT PRN IV SEE I/O RECORD Last administered on 03/12/19at 08:20; Start 03/06/19 at 23:00; Stop 03/12/19 at 11:03; Status DC Metoclopramide HCl (Reglan Vial) 10 mg Q6HRS IV ; Start 03/07/19 at 08:00; Stop 03/08/19 at 07:51; Status DC Metoprolol Tartrate (Lopressor Vial) 5 mg Q6HRS IVP Last administered on at 08:25; Start 03/08/19 at 12:00 Furosemide (Lasix) 40 mg 1X ONCE IVP Last administered on 03/08/19at 21:21; Start 03/08/19 at 21:00; Stop 03/08/19 at 21:01; Status DC Furosemide (Lasix) 20 mg DAILY08 IVP ; Start 03/10/19 at 08:00; Stop 03/10/19 at 08:00; Status DC Furosemide (Lasix) 20 mg DAILY08 IVP Last administered on 03/14/19at 07:41; Start 03/10/19 at 08:00; Stop 03/15/19 at 07:32; Status DC Insulin Glargine (Lantus) 16 units BID SQ Last administered on 03/12/19at 00:09 ; Start 03/09/19 at 21:00; Stop 03/12/19 at 07:18; Status DC Insulin Human Lispro (HumaLOG) 0-9 UNITS Q6HRS SQ Last administered on at 05:45; Start 03/09/19 at 18:00; Stop 03/12/19 at 07:18; Status DC Dextrose (Dextrose 50%-Water Syringe) 12.5 gm PRN Q15MIN PRN IV SEE COMMENTS; Start 03/09/19 at 17:15 Cefepime HCl (Maxipime) 2 gm Q12HR IVP Last administered on 03/21/19at 08:26; Start 03/10/19 at 21:00 Insulin Human Lispro (HumaLOG) 15 units 1X ONCE SQ Last administered on at 00:14; Start 03/11/19 at 00:00; Stop 03/11/19 at 00:01; Status DC Insulin Glargine (Lantus) 20 units BID SQ Last administered on 03/17/19at 08:32 ; Start 03/12/19 at 09:00; Stop 03/17/19 at 10:46; Status DC Insulin Human Lispro (HumaLOG) 0-9 UNITS Q6HRS SQ Last administered on at 06:35; Start 03/12/19 at 12:00; Stop 03/21/19 at 10:00; Status DC Diltiazem HCl (Cardizem) 30 mg Q6HRS PO Last administered on 03/21/19at 05:54; Start 03/12/19 at 12:00 Furosemide (Lasix) 20 mg 1X ONCE IVP Last administered on 03/13/19at 11:04; Start 03/13/19 at 10:30; Stop 03/13/19 at 10:31; Status DC Furosemide (Lasix) 20 mg 1X ONCE IVP Last administered on 03/14/19at 07:40; Start 03/14/19 at 07:15; Stop 03/14/19 at 14:05; Status DC Furosemide (Lasix) 40 mg Q8HRS IVP Last administered on 03/17/19at 05:49; Start 03/14/19 at 22:00; Stop 03/17/19 at 10:58; Status DC Albuterol Sulfate (Ventolin Neb Soln) 2.5 mg 1X ONCE NEB Last administered on 03/16/19at 04:00; Start 03/16/19 at 04:00; Stop 03/16/19 at 04:01; Status DC Methylprednisolone Sodium Succinate (SOLU-Medrol 40MG VIAL) 80 mg 1X ONCE IV Last administered on 03/16/19at 04:17; Start 03/16/19 at 04:30; Stop 03/16/19 at 04:31; Status DC Furosemide (Lasix) 20 mg 1X ONCE IVP Last administered on 03/16/19at 04:17; Start 03/16/19 at 04:30; Stop 03/16/19 at 04:31; Status DC Insulin Glargine (Lantus) 25 units BID SQ Last administered on 03/21/19at 08:55 ; Start 03/17/19 at 21:00; Stop 03/21/19 at 10:00; Status DC Insulin Human Lispro (HumaLOG) 10 units Q6HRS SQ ; Start 03/17/19 at 12:00; Stop 03/17/19 at 13:32; Status DC Furosemide (Lasix) 40 mg QD IVP Last administered on 03/18/19at 05:55; Start at 06:00; Stop 03/18/19 at 10:54; Status DC Insulin Human Lispro (HumaLOG) 3 units Q6HRS SQ Last administered on 03/19/19at 06:12; Start 03/17/19 at 18:00; Stop 03/19/19 at 08:28; Status DC Azithromycin 250 mg/Sodium Chloride 250 ml @ 250 mls/hr Q24H IV Last administered on 03/20/19at 07:48; Start 03/18/19 at 08:00 Alteplase, Recombinant (Cathflo For Central Catheter Clearance) 1 mg 1X ONCE INT CAT Last administered on 03/18/19at 09:21; Start 03/18/19 at 07:30; Stop at 07:31; Status DC Alteplase, Recombinant (Cathflo For Central Catheter Clearance) 1 mg 1X ONCE INT CAT Last administered on 03/18/19at 11:04; Start 03/18/19 at 07:30; Stop at 07:31; Status DC Alteplase, Recombinant (Cathflo For Central Catheter Clearance) 1 mg 1X ONCE INT CAT Last administered on 03/18/19at 13:26; Start 03/18/19 at 07:30; Stop at 07:31; Status DC Furosemide (Lasix) 60 mg 1X ONCE IVP Last administered on 03/18/19at 11:04; Start 03/18/19 at 10:54; Stop 03/18/19 at 10:55; Status DC Furosemide (Lasix) 40 mg Q8HRS IVP ; Start 03/18/19 at 14:00; Stop 03/18/19 at 17:53; Status DC Digoxin (Lanoxin) 250 mcg 1X ONCE IV Last administered on 03/18/19at 15:48; Start 03/18/19 at 15:30; Stop 03/18/19 at 15:33; Status DC Furosemide (Lasix) 40 mg Q8HRS IVP Last administered on 03/20/19at 05:42; Start 03/18/19 at 20:00; Stop 03/20/19 at 08:48; Status DC Digoxin (Lanoxin) 500 mcg 1X ONCE IV Last administered on 03/18/19at 19:35; Start 03/18/19 at 20:00; Stop 03/18/19 at 20:01; Status DC Insulin Human Lispro (HumaLOG) 6 units Q6HRS SQ Last administered on 03/20/19at 05:45; Start 03/19/19 at 12:00; Stop 03/20/19 at 08:48; Status DC Furosemide (Lasix) 80 mg Q8HRS IVP Last administered on 03/21/19at 08:25; Start 03/20/19 at 14:00 Insulin Human Lispro (HumaLOG) 9 units Q6HRS SQ Last administered on 03/21/19at 06:36; Start 03/20/19 at 12:00; Stop 03/21/19 at 10:00; Status DC Methylprednisolone Sodium Succinate (SOLU-Medrol 125MG VIAL) 80 mg Q8HRS IV Last administered on 03/21/19at 08:22; Start 03/20/19 at 11:00 Alteplase, Recombinant (Cathflo For Central Catheter Clearance) 1 mg 1X ONCE INT CAT Last administered on 03/20/19at 20:23; Start 03/20/19 at 20:00; Stop at 20:09; Status DC Alteplase, Recombinant (Cathflo For Central Catheter Clearance) 1 mg 1X ONCE INT CAT Last administered on 03/20/19at 20:23; Start 03/20/19 at 20:00; Stop at 20:09; Status DC Alteplase, Recombinant (Cathflo For Central Catheter Clearance) 1 mg 1X ONCE INT CAT Last administered on 03/20/19at 20:23; Start 03/20/19 at 20:00; Stop at 20:09; Status DC Active Scripts Active Reported Proair Hfa Inhaler (Albuterol Sulfate) 8.5 Gm Hfa.aer.ad 1 Puff INH PRN Q6HRS PRN Lantus Solostar (Insulin Glargine,Hum.rec.anlog) 100 Unit/1 Ml Insuln.pen 20 Unit SQ QHS Humalog (Insulin Lispro) 100 Unit/1 Ml Cartridge 6 Unit SQ TIDWMEALS Doxazosin Mesylate 2 Mg Tablet 2 Mg PO DAILY Omeprazole 40 Mg Capsule.dr 40 Mg PO DAILY Amlodipine Besylate 10 Mg Tablet 10 Mg PO DAILY Atorvastatin Calcium 20 Mg Tablet 20 Mg PO DAILY Atenolol 50 Mg Tablet 50 Mg PO DAILY Losartan Potassium 100 Mg Tablet 100 Mg PO DAILY Aspirin 81 Mg Tab.chew 81 Mg PO DAILY Glyburide 5 Mg Tablet 1 Tab PO BID Vitals/I & O Vital Sign - Last 24 Hours 03/20/19 03/20/19 03/20/19 03/20/19 11:00 11:40 11:44 12:00 Pulse 75 73 89 Resp 22 22 B/P (MAP) 130/64 (86) 137/67 115/61 (79) Pulse Ox 97 96 97 O2 Delivery Ventilator Ventilator Ventilator 03/20/19 03/20/19 03/20/19 03/20/19 12:00 14:00 15:20 15:50 Resp 22 22 Pulse Ox 96 O2 Delivery Mechanical Ventilator Ventilator 03/20/19 03/20/19 03/20/19 03/20/19 15:52 15:58 16:01 16:50 Temp 99.3 99.3 Pulse 75 80 Resp 22 22 B/P (MAP) 144/67 (92) 167/80 (109) Pulse Ox 97 98 99 O2 Delivery Ventilator Mechanical Ventilator Ventilator Ventilator 03/20/19 03/20/19 03/20/19 03/20/19 17:22 17:23 18:00 19:00 Temp 99.5 99.5 Pulse 78 78 76 73 Resp 21 21 B/P (MAP) 174/78 174/78 166/81 (109) 142/65 (90) Pulse Ox 98 97 O2 Delivery Ventilator Ventilator 03/20/19 03/20/19 03/20/19 03/20/19 20:00 20:00 20:04 21:00 Pulse 76 76 Resp 21 21 B/P (MAP) 140/65 (90) 140/65 (90) Pulse Ox 98 98 98 O2 Delivery Mechanical Ventilator Ventilator Ventilator Ventilator 03/20/19 03/20/19 03/20/19 03/20/19 21:29 21:59 22:00 23:00 Pulse 76 74 Resp 21 21 B/P (MAP) 160/72 (101) 160/73 (102) Pulse Ox 98 98 98 O2 Delivery Ventilator Ventilator Ventilator Ventilator 03/20/19 03/20/19 03/21/19 03/21/19 23:51 23:59 00:00 01:00 Temp 99.9 99.9 Pulse 80 78 Resp 21 B/P (MAP) 158/72 (100) 153/73 Pulse Ox 98 98 O2 Delivery Ventilator Mechanical Ventilator Ventilator 03/21/19 03/21/19 03/21/19 03/21/19 01:00 01:00 01:06 02:00 Pulse 78 78 76 Resp 21 21 B/P (MAP) 153/73 152/69 (96) 147/68 (94) Pulse Ox 98 98 98 O2 Delivery Ventilator Ventilator Ventilator 03/21/19 03/21/19 03/21/19 03/21/19 03:00 03:17 03:47 03:50 Pulse 74 Resp 21 22 B/P (MAP) 152/68 (96) Pulse Ox 98 98 98 98 O2 Delivery Ventilator Ventilator Ventilator 03/21/19 03/21/19 03/21/19 03/21/19 04:00 04:00 05:00 05:52 Temp 99.8 99.8 Pulse 69 70 69 Resp 21 21 B/P (MAP) 157/71 (99) 160/72 (101) 164/76 Pulse Ox 98 97 O2 Delivery Ventilator Mechanical Ventilator Ventilator 03/21/19 03/21/19 03/21/19 03/21/19 05:54 06:00 07:10 08:00 Pulse 69 69 Resp 21 B/P (MAP) 164/76 168/77 (107) Pulse Ox 98 98 O2 Delivery Ventilator Ventilator Mechanical Ventilator 03/21/19 03/21/19 03/21/19 08:25 08:41 09:24 Pulse 69 B/P (MAP) 168/77 Pulse Ox 98 98 O2 Delivery Ventilator O2 Flow Rate 96.0 Intake and Output 03/20/19 03/20/19 03/21/19 15:00 23:00 07:00 Intake Total 600 ml 2567 ml 2842 ml Output Total 425 ml 3525 ml 1775 ml Balance 175 ml -958 ml 1067 ml YRIS RUIZ MD Mar 21, 2019 10:05
[2019-03-21] MEDS: AZITHROMYCIN 250 MG in IV NORMAL SALINE 250ML 250 ML IV SCH (10:24)
[2019-03-21] MEDS: INSULIN REGULAR VIAL 150 UNIT in 0.9 % SODIUM CHLORIDE 150ML 150 ML IV PRN ×2 (10:29→17:54)
--- NOTE | 2019-03-21 10:59 | NUR ---
FACULTY CO-SIGN I have reviewed the documentation by director community health nursing: Addendum: 03/21/19 at 1100 by CHUYITA CONNELL RN Amended: Links added.
--- NOTE | 2019-03-21 12:34 | PDOC ---
PROGRESS NOTES Subjective Subjective SEEN IN FOLLOW UP OF ARF AND EDEMA Objective Objective Vital Signs Date Time Temp Pulse Resp B/P (MAP) Pulse Ox O2 Delivery O2 Flow Rate FiO2 03/21/19 12:18 Mechanical Ventilator 03/21/19 12:18 64 21 148/76 (100) 98 03/21/19 10:22 96.0 03/21/19 07:00 98.8 98.8 Intake and Output 03/21/19 07:00 Intake Total 6009 ml Output Total 5725 ml Balance 284 ml IV Total 967 ml Tube Feeding 3682 ml Blood Product IV Normal Saline Flush 110 ml Other 1250 ml Output Urine Total 5425 ml Gastric Drainage Total 300 ml Physical Exam Heart: Regular rate, Normal S1, Normal S2, No murmurs, Gallops Extremities: Other (1+ EDEMA) General: Other (SEDATED ON VENT) Lungs: Clear to auscultation, Normal air movement, Other (EDEMA) Neuro: Other (SEDATED) Diagnosis RENAL FAILURE: Acute (Acute tubular necrosis) Assessment Assessment Problems Medical Problems: (1) Acute renal failure Status: Acute (2) Edema Status: Acute (3) Shortness of breath Status: Acute Plan Plan of Care GOOD DIURESIS BUT STILL ON 80% FIO2. CONT DIURESIS. RENAL FUNCTION IS STABLE Comment Review of Relevant I have reviewed the following items pascual (where applicable) has been applied. Labs Laboratory Tests Test 03/19/19 17:22 03/19/19 21:12 03/19/19 23:58 03/20/19 05:30 Glucose (Fingerstick) 314 mg/dL (70-99) 312 mg/dL (70-99) 350 mg/dL (70-99) Sodium Level 143 mmol/L (136-145) Potassium Level 3.9 mmol/L (3.5-5.1) Chloride Level 105 mmol/L (98-107) Carbon Dioxide Level 33 mmol/L (21-32) Anion Gap 5 (6-14) Blood Urea Nitrogen 66 mg/dL (8-26) Creatinine 1.5 mg/dL (0.7-1.3) Estimated GFR (Cockcroft-Gault) 48.4 Glucose Level 342 mg/dL (70-99) Calcium Level 7.9 mg/dL (8.5-10.1) Phosphorus Level 3.8 mg/dL (2.6-4.7) Albumin 1.7 g/dL (3.4-5.0) Test 03/20/19 05:35 03/20/19 07:35 03/20/19 07:51 03/20/19 11:44 Glucose (Fingerstick) 276 mg/dL (70-99) 306 mg/dL (70-99) 352 mg/dL (70-99) O2 Saturation 83 % (92-99) Arterial Blood pH 7.42 (7.35-7.45) Arterial Blood pCO2 at Patient Temp 58 mmHg (35-46) Arterial Blood pO2 at Patient Temp 48 mmHg (75-108) Arterial Blood HCO3 36 mmol/L (21-28) Arterial Blood Base Excess 10 mmol/L (-3-3) FiO2 80 Test 03/20/19 17:30 03/20/19 21:25 03/21/19 00:59 03/21/19 05:56 Glucose (Fingerstick) 358 mg/dL (70-99) 422 mg/dL (70-99) 481 mg/dL (70-99) 435 mg/dL (70-99) Test 03/21/19 06:30 03/21/19 07:15 03/21/19 08:57 03/21/19 11:27 Sodium Level 142 mmol/L (136-145) Potassium Level 4.2 mmol/L (3.5-5.1) Chloride Level 101 mmol/L (98-107) Carbon Dioxide Level 32 mmol/L (21-32) Anion Gap 9 (6-14) Blood Urea Nitrogen 72 mg/dL (8-26) Creatinine 1.6 mg/dL (0.7-1.3) Estimated GFR (Cockcroft-Gault) 44.9 Glucose Level 494 mg/dL (70-99) Calcium Level 8.4 mg/dL (8.5-10.1) Phosphorus Level 3.6 mg/dL (2.6-4.7) Albumin 1.9 g/dL (3.4-5.0) Triglycerides Level 824 mg/dL (0-150) O2 Saturation 98 % (92-99) Arterial Blood pH 7.48 (7.35-7.45) Arterial Blood pCO2 at Patient Temp 48 mmHg (35-46) Arterial Blood pO2 at Patient Temp 108 mmHg (75-108) Arterial Blood HCO3 35 mmol/L (21-28) Arterial Blood Base Excess 10 mmol/L (-3-3) FiO2 90% vent Glucose (Fingerstick) 437 mg/dL (70-99) 444 mg/dL (70-99) Laboratory Tests Test 03/20/19 17:30 03/20/19 21:25 03/21/19 00:59 03/21/19 05:56 Glucose (Fingerstick) 358 mg/dL (70-99) 422 mg/dL (70-99) 481 mg/dL (70-99) 435 mg/dL (70-99) Test 03/21/19 06:30 03/21/19 07:15 03/21/19 08:57 03/21/19 11:27 Sodium Level 142 mmol/L (136-145) Potassium Level 4.2 mmol/L (3.5-5.1) Chloride Level 101 mmol/L (98-107) Carbon Dioxide Level 32 mmol/L (21-32) Anion Gap 9 (6-14) Blood Urea Nitrogen 72 mg/dL (8-26) Creatinine 1.6 mg/dL (0.7-1.3) Estimated GFR (Cockcroft-Gault) 44.9 Glucose Level 494 mg/dL (70-99) Calcium Level 8.4 mg/dL (8.5-10.1) Phosphorus Level 3.6 mg/dL (2.6-4.7) Albumin 1.9 g/dL (3.4-5.0) Triglycerides Level 824 mg/dL (0-150) O2 Saturation 98 % (92-99) Arterial Blood pH 7.48 (7.35-7.45) Arterial Blood pCO2 at Patient Temp 48 mmHg (35-46) Arterial Blood pO2 at Patient Temp 108 mmHg (75-108) Arterial Blood HCO3 35 mmol/L (21-28) Arterial Blood Base Excess 10 mmol/L (-3-3) FiO2 90% vent Glucose (Fingerstick) 437 mg/dL (70-99) 444 mg/dL (70-99) Microbiology 03/05/19 Blood Culture - Final, Complete NO GROWTH AFTER 5 DAYS 03/08/19 - Final, Complete 03/08/19 - Final, Complete 03/08/19 - Final, Complete 03/08/19 Gram Stain Evaluation - Final, Complete 03/08/19 Sputum Culture - Final, Complete 03/08/19 Sputum Result 1 - Final, Complete 03/02/19 Urine Culture - Final, Complete 03/02/19 Urine Culture Result 1 (LUCIO) - Final, Complete 03/09/19 Aerobic Culture - Final, Complete 03/09/19 Aerobic Culture Result 1 (LUCIO) - Final, Complete 03/09/19 Gram Stain - Final, Complete 03/09/19 Gram Stain Result 1 (LUCIO) - Final, Complete 03/09/19 Gram Stain Result 2 (LUCIO) - Final, Complete Medications Current Medications Ondansetron HCl (Zofran) 4 mg PRN Q8HRS PRN IV NAUSEA/VOMITING; Start 02/27/19 at 16:45; Stop 02/28/19 at 16:44; Status DC Morphine Sulfate (Morphine Sulfate) 2 mg PRN Q2HR PRN IV PAIN; Start 02/27/19 at 16:45; Stop 02/28/19 at 16:44; Status DC Acetaminophen (Tylenol) 650 mg PRN Q4HRS PRN PO FEVER Last administered on 02/27at 21:06; Start 02/27/19 at 16:45; Stop 02/28/19 at 16:44; Status DC Dextrose (Dextrose 50%-Water Syringe) 12.5 gm PRN Q15MIN PRN IV SEE COMMENTS; Start 02/27/19 at 16:45; Stop 03/10/19 at 13:48; Status DC Heparin Sodium (Porcine) (Heparin Sodium) 5,000 unit Q8HRS SQ Last administered on 03/21/19at 05:53; Start 02/27/19 at 17:00 Lorazepam (Ativan) 1 mg PRN Q8HRS PRN IV ANXIETY / AGITATION Last administered on 03/08/19at 03:37; Start 02/28/19 at 02:45 Etomidate (Amidate) 20 mg STK-MED ONCE IV ; Start 02/28/19 at 06:59; Stop at 07:00; Status DC Rocuronium Crowley (Zemuron) 50 mg STK-MED ONCE .ROUTE ; Start 02/28/19 at 07:00 ; Stop 02/28/19 at 09:42; Status DC Dopamine HCl/ Dextrose 250 ml @ 12.266 mls/ hr CONT PRN IV SEE I/O RECORD Last administered on 02/28/19at 08:06; Start 02/28/19 at 07:15; Stop 03/17/19 at 15:50; Status DC Fentanyl Citrate 30 ml @ 0 mls/hr CONT PRN IV SEE PROTOCOL; Start 02/28/19 at 07:15; Stop 02/28/19 at 07:59; Status DC Propofol 100 ml @ 0 mls/hr CONT PRN IV SEE PROTOCOL; Start 02/28/19 at 07:15; Stop 02/28/19 at 07:59; Status DC Fentanyl Citrate (Fentanyl 2ml Vial) 25 mcg PRN Q1HR PRN IV SEE COMMENTS; Start 02/28/19 at 07:15; Stop 02/28/19 at 07:59; Status DC Fentanyl Citrate (Fentanyl 2ml Vial) 50 mcg PRN Q1HR PRN IV SEE COMMENTS; Start 02/28/19 at 07:15; Stop 02/28/19 at 07:59; Status DC Midazolam HCl 100 ml @ 0 mls/hr CONT PRN IV SEE PROTOCOL Last administered on at 04:27; Start 02/28/19 at 07:15 Sodium Chloride 1,000 ml @ 1,000 mls/hr Q1H IV Last administered on 02/28/19at 07:32; Start 02/28/19 at 07:32; Stop 02/28/19 at 10:09; Status DC Fentanyl Citrate (Fentanyl 2ml Vial) 25 mcg PRN Q30MIN PRN IV see comments; Start 02/28/19 at 07:45; Stop 02/28/19 at 09:42; Status DC Lorazepam (Ativan) 1 mg PRN Q30MIN PRN IV SEDATION; Start 02/28/19 at 07:45; Stop 02/28/19 at 09:42; Status DC Fentanyl Citrate 30 ml @ 2.5 mls/hr CONT PRN PRN IV SEE I/O RECORD Last administered on 03/05/19at 03:44; Start 02/28/19 at 07:45; Stop 03/05/19 at 04:40; Status DC Propofol 100 ml @ 0 mls/hr CONT PRN IV SEE I/O RECORD Last administered on 03/21at 08:28; Start 02/28/19 at 07:45 Vecuronium Crowley (Norcuron Bolus) 10 mg PRN Q30MIN PRN IV SHIVERING; Start at 07:45; Stop 02/28/19 at 09:42; Status DC Meperidine HCl (Demerol) 12.5 mg PRN Q30MIN PRN IV SHIVERING; Start 02/28/19 at 07:45; Stop 02/28/19 at 09:42; Status DC Multi-Ingred Cream/Lotion/Oil/ Oint (Artificial Tears Eye Ointment) 1 jennifer PRN Q6HRS PRN OU 0.5 INCH FOR DRY EYE; Start 02/28/19 at 07:45; Stop 02/28/19 at 09 :42; Status DC Famotidine (Pepcid Vial) 20 mg BID IVP Last administered on 02/28/19at 11:03; Start 02/28/19 at 09:00; Stop 02/28/19 at 14:25; Status DC Aspirin (Aspirin) 300 mg DAILY [place] ; Start 02/28/19 at 09:00; Stop 02/28/19 at 09 :42; Status DC Sodium Chloride (Normal Saline Flush) 3 ml QSHIFT PRN IV AFTER MEDS AND BLOOD DRAWS; Start 02/28/19 at 07:45 Acetaminophen (Tylenol) 650 mg Q6HRS NG ; Start 02/28/19 at 12:00; Stop at 12:00; Status DC Acetaminophen (Tylenol Supp) 650 mg PRN Q6HRS PRN [place] MILD PAIN / TEMP; Start at 07:45; Stop 03/01/19 at 07:45; Status DC Acetaminophen (Tylenol) 650 mg PRN Q6HRS PRN NG MILD PAIN / TEMP; Start at 07:45; Stop 03/01/19 at 07:45; Status DC Info (Icu Electrolyte Protocol) 1 ea DAILY PRN MC PER PROTOCOL; Start 03/02/19 at 07:45; Stop 03/02/19 at 07:45; Status DC Furosemide (Lasix) 60 mg 1X ONCE IVP Last administered on 02/28/19at 08:30; Start 02/28/19 at 08:30; Stop 02/28/19 at 08:31; Status DC Ceftriaxone Sodium (Rocephin) 1 gm Q24H IVP Last administered on 02/28/19 11: 03; Start 02/28/19 at 11:00; Stop 02/28/19 at 11:18; Status DC Calcium Chloride 1000 mg/Dextrose 60 ml @ 120 mls/hr 1X ONCE IV Last administered on 02/28/19 11:03; Start 02/28/19 at 10:30; Stop 02/28/19 at 10:59 ; Status DC Meropenem 500 mg/ Sodium Chloride 50 ml @ 100 mls/hr Q8HRS IV Last administered on 03/03/19 06:24; Start 02/28/19 at 14:00; Stop 03/03/19 at 07:04; Status DC Linezolid/Dextrose 300 ml @ 300 mls/hr Q12HR IV Last administered on 03/03/19 20:00; Start 02/28/19 at 11:30; Stop 03/04/19 at 08:55; Status DC Micafungin Sodium 100 mg/Dextrose 100 ml @ 100 mls/hr Q24H IV Last administered on 03/04/19 15:53; Start 02/28/19 at 12:00; Stop 03/05/19 at 06:47; Status DC Furosemide (Lasix) 40 mg BID92 IVP Last administered on 03/02/19 14:06; Start 02/28/19 at 14:00; Stop 03/02/19 at 17:02; Status DC Famotidine (Pepcid Vial) 20 mg QHS IVP Last administered on 03/01/19 21:24; Start 02/28/19 at 21:00; Stop 03/02/19 at 10:07; Status DC Albuterol/ Ipratropium (Duoneb) 3 ml RTQID NEB Last administered on 03/21/19at 10:42; Start 02/28/19 at 16:00 Haloperidol Lactate (Haldol Inj) 5 mg PRN Q6HRS PRN IVP AGITATION 2ND CHOICE Last administered on 03/09/19 14:07; Start 02/28/19 at 15:15 Vecuronium Crowley (Norcuron Bolus) 8 mg PRN Q4HRS PRN IV MUSCLE SPASMS Last administered on 03/12/19at 23:48; Start 02/28/19 at 15:15 Perflutren Protein Type A Microsphe (Optison) 0.66 mg PRN 1X PRN IV SEE COMMENTS; Start 03/01/19 at 10:00; Stop 03/02/19 at 09:59; Status DC Digoxin (Lanoxin) 125 mcg 1X STAT IV ; Start 03/01/19 at 15:34; Stop 03/01/19 at 16:00; Status DC Sodium Chloride 500 ml @ 500 mls/hr 1X ONCE IV Last administered on at 18:46; Start 03/01/19 at 18:45; Stop 03/01/19 at 19:44; Status DC Famotidine (Pepcid Vial) 20 mg Q12HR IVP Last administered on 03/21/19at 08:22; Start 03/02/19 at 21:00 Furosemide (Lasix) 40 mg DAILY IVP Last administered on 03/04/19 09:52; Start 03/03/19 at 09:00; Stop 03/04/19 at 12:13; Status DC Acetaminophen (Tylenol Supp) 650 mg PRN Q6HRS PRN [place] MILD PAIN / TEMP Last administered on 03/03/19at 17:39; Start 03/02/19 at 17:15 Meropenem 500 mg/ Sodium Chloride 50 ml @ 100 mls/hr Q6HRS IV Last administered on 03/05/19 05:33; Start 03/03/19 at 12:00; Stop 03/05/19 at 06:47; Status DC Albumin Human 100 ml @ 100 mls/hr 1X ONCE IV Last administered on 03/03/19 08 :52; Start 03/03/19 at 08:30; Stop 03/03/19 at 09:29; Status DC Atropine Sulfate (ATROPINE 0.5mg SYRINGE) 2 mg STK-MED ONCE .ROUTE ; Start 02/27 at 16:21; Stop 03/03/19 at 16:22; Status DC Dopamine HCl/ Dextrose (DOPamine 400MG/ 250ML PREMIX) 400 mg STK-MED ONCE IV ; Start 02/27/19 at 16:21; Stop 03/03/19 at 16:22; Status DC Furosemide (Lasix) 40 mg 1X ONCE IVP Last administered on 03/03/19at 18:46; Start 03/03/19 at 18:45; Stop 03/03/19 at 18:46; Status DC Lorazepam 100 mg/ Sodium Chloride 100 ml @ 0 mls/hr CONT PRN IV SEE PROTOCOL Last administered on 03/03/19 22:18; Start 03/03/19 at 22:00; Stop 03/17/19 at 15 :39; Status DC Acetaminophen (Tylenol) 650 mg PRN Q6HRS PRN PEG MILD PAIN / TEMP Last administered on 03/10/19 20:48; Start 03/04/19 at 11:45 Furosemide (Lasix) 40 mg BID92 IVP Last administered on 03/06/19 08:38; Start 03/04/19 at 14:00; Stop 03/06/19 at 13:30; Status DC Fentanyl Citrate 30 ml @ 0 mls/hr CONT PRN IV SEE PROTOCOL Last administered on 03/21/19at 08:41; Start 03/05/19 at 04:45 Cefepime HCl (Maxipime) 2 gm Q8HRS IVP Last administered on 03/10/19 05:43; Start 03/05/19 at 06:45; Stop 03/10/19 at 08:29; Status DC Metronidazole 100 ml @ 100 mls/hr Q8HRS IV Last administered on 03/10/19 05:45 ; Start 03/05/19 at 06:45; Stop 03/10/19 at 08:29; Status DC Linezolid/Dextrose 300 ml @ 300 mls/hr Q12HR IV Last administered on 03/05/19 21:24; Start 03/05/19 at 09:00; Stop 03/06/19 at 06:42; Status DC Metoclopramide HCl (Reglan Vial) 10 mg QIDACHS IV Last administered on 20:43; Start 03/05/19 at 11:30; Stop 03/07/19 at 07:37; Status DC Insulin Glargine (Lantus) 12 units BID SQ Last administered on 03/09/19 09:29; Start 03/05/19 at 09:00; Stop 03/09/19 at 17:11; Status DC Digoxin (Lanoxin) 500 mcg 1X ONCE IV Last administered on 03/06/19 00:48; Start 03/06/19 at 00:45; Stop 03/06/19 at 00:46; Status DC Metoprolol Tartrate (Lopressor Vial) 5 mg 1X ONCE IVP Last administered on 03/06 00:53; Start 03/06/19 at 00:45; Stop 03/06/19 at 00:46; Status DC Sodium Chloride 500 ml @ 500 mls/hr 1X ONCE IV Last administered on 03/06/19at 00:49; Start 03/06/19 at 00:45; Stop 03/06/19 at 01:44; Status DC Nystatin (Mycostatin) 1 jennifer BID TP Last administered on 03/21/19 08:55; Start 03/06/19 at 09:00 Sodium Cl/Sod Bicarb/Potass Cl/ PEG (Golytely) 2,000 ml 1X ONCE PO Last administered on 03/06/19 09:33; Start 03/06/19 at 08:00; Stop 03/06/19 at 08:01; Status DC Furosemide (Lasix) 40 mg DAILY08 IVP Last administered on 03/09/19 09:27; Start 03/07/19 at 08:00; Stop 03/09/19 at 12:45; Status DC Metoprolol Tartrate (Lopressor Vial) 10 mg 1X ONCE IVP Last administered on 16:08; Start 03/06/19 at 15:15; Stop 03/06/19 at 15:16; Status DC Metoprolol Tartrate (Lopressor Vial) 5 mg Q6HRS IVP Last administered on 17:03; Start 03/06/19 at 18:00; Stop 03/07/19 at 18:27; Status DC Aspirin (Children'S Aspirin) 81 mg 1X ONCE PO Last administered on 03/06/19 18 :18; Start 03/06/19 at 17:00; Stop 03/06/19 at 17:01; Status DC Aspirin (Children'S Aspirin) 81 mg DAILYWBKFT PO Last administered on at 08:22; Start 03/07/19 at 08:00 Labetalol HCl (Normodyne Iv Push) 20 mg PRN Q2HR PRN IVP HYPERTENSION, SEE COMMENTS Last administered on 03/06/19at 21:29; Start 03/06/19 at 17:15 Digoxin (Lanoxin) 250 mcg 1X ONCE IV Last administered on 03/06/19at 22:00; Start 03/06/19 at 22:00; Stop 03/06/19 at 22:01; Status DC Diltiazem HCl 125 mg/Dextrose 125 ml @ 5 mls/hr CONT PRN IV SEE I/O RECORD Last administered on 03/12/19at 08:20; Start 03/06/19 at 23:00; Stop 03/12/19 at 11:03; Status DC Metoclopramide HCl (Reglan Vial) 10 mg Q6HRS IV ; Start 03/07/19 at 08:00; Stop 03/08/19 at 07:51; Status DC Metoprolol Tartrate (Lopressor Vial) 5 mg Q6HRS IVP Last administered on at 08:25; Start 03/08/19 at 12:00 Furosemide (Lasix) 40 mg 1X ONCE IVP Last administered on 03/08/19at 21:21; Start 03/08/19 at 21:00; Stop 03/08/19 at 21:01; Status DC Furosemide (Lasix) 20 mg DAILY08 IVP ; Start 03/10/19 at 08:00; Stop 03/10/19 at 08:00; Status DC Furosemide (Lasix) 20 mg DAILY08 IVP Last administered on 03/14/19at 07:41; Start 03/10/19 at 08:00; Stop 03/15/19 at 07:32; Status DC Insulin Glargine (Lantus) 16 units BID SQ Last administered on 03/12/19at 00:09 ; Start 03/09/19 at 21:00; Stop 03/12/19 at 07:18; Status DC Insulin Human Lispro (HumaLOG) 0-9 UNITS Q6HRS SQ Last administered on at 05:45; Start 03/09/19 at 18:00; Stop 03/12/19 at 07:18; Status DC Dextrose (Dextrose 50%-Water Syringe) 12.5 gm PRN Q15MIN PRN IV SEE COMMENTS; Start 03/09/19 at 17:15; Stop 03/21/19 at 10:07; Status DC Cefepime HCl (Maxipime) 2 gm Q12HR IVP Last administered on 03/21/19at 08:26; Start 03/10/19 at 21:00 Insulin Human Lispro (HumaLOG) 15 units 1X ONCE SQ Last administered on at 00:14; Start 03/11/19 at 00:00; Stop 03/11/19 at 00:01; Status DC Insulin Glargine (Lantus) 20 units BID SQ Last administered on 03/17/19at 08:32 ; Start 03/12/19 at 09:00; Stop 03/17/19 at 10:46; Status DC Insulin Human Lispro (HumaLOG) 0-9 UNITS Q6HRS SQ Last administered on at 06:35; Start 03/12/19 at 12:00; Stop 03/21/19 at 10:00; Status DC Diltiazem HCl (Cardizem) 30 mg Q6HRS PO Last administered on 03/21/19at 05:54; Start 03/12/19 at 12:00 Furosemide (Lasix) 20 mg 1X ONCE IVP Last administered on 03/13/19at 11:04; Start 03/13/19 at 10:30; Stop 03/13/19 at 10:31; Status DC Furosemide (Lasix) 20 mg 1X ONCE IVP Last administered on 03/14/19at 07:40; Start 03/14/19 at 07:15; Stop 03/14/19 at 14:05; Status DC Furosemide (Lasix) 40 mg Q8HRS IVP Last administered on 03/17/19at 05:49; Start 03/14/19 at 22:00; Stop 03/17/19 at 10:58; Status DC Albuterol Sulfate (Ventolin Neb Soln) 2.5 mg 1X ONCE NEB Last administered on 03/16/19at 04:00; Start 03/16/19 at 04:00; Stop 03/16/19 at 04:01; Status DC Methylprednisolone Sodium Succinate (SOLU-Medrol 40MG VIAL) 80 mg 1X ONCE IV Last administered on 03/16/19at 04:17; Start 03/16/19 at 04:30; Stop 03/16/19 at 04:31; Status DC Furosemide (Lasix) 20 mg 1X ONCE IVP Last administered on 03/16/19at 04:17; Start 03/16/19 at 04:30; Stop 03/16/19 at 04:31; Status DC Insulin Glargine (Lantus) 25 units BID SQ Last administered on 03/21/19at 08:55 ; Start 03/17/19 at 21:00; Stop 03/21/19 at 10:00; Status DC Insulin Human Lispro (HumaLOG) 10 units Q6HRS SQ ; Start 03/17/19 at 12:00; Stop 03/17/19 at 13:32; Status DC Furosemide (Lasix) 40 mg QD IVP Last administered on 03/18/19at 05:55; Start at 06:00; Stop 03/18/19 at 10:54; Status DC Insulin Human Lispro (HumaLOG) 3 units Q6HRS SQ Last administered on 03/19/19at 06:12; Start 03/17/19 at 18:00; Stop 03/19/19 at 08:28; Status DC Azithromycin 250 mg/Sodium Chloride 250 ml @ 250 mls/hr Q24H IV Last administered on 03/21/19at 10:24; Start 03/18/19 at 08:00 Alteplase, Recombinant (Cathflo For Central Catheter Clearance) 1 mg 1X ONCE INT CAT Last administered on 03/18/19at 09:21; Start 03/18/19 at 07:30; Stop at 07:31; Status DC Alteplase, Recombinant (Cathflo For Central Catheter Clearance) 1 mg 1X ONCE INT CAT Last administered on 03/18/19at 11:04; Start 03/18/19 at 07:30; Stop at 07:31; Status DC Alteplase, Recombinant (Cathflo For Central Catheter Clearance) 1 mg 1X ONCE INT CAT Last administered on 03/18/19at 13:26; Start 03/18/19 at 07:30; Stop at 07:31; Status DC Furosemide (Lasix) 60 mg 1X ONCE IVP Last administered on 03/18/19at 11:04; Start 03/18/19 at 10:54; Stop 03/18/19 at 10:55; Status DC Furosemide (Lasix) 40 mg Q8HRS IVP ; Start 03/18/19 at 14:00; Stop 03/18/19 at 17:53; Status DC Digoxin (Lanoxin) 250 mcg 1X ONCE IV Last administered on 03/18/19at 15:48; Start 03/18/19 at 15:30; Stop 03/18/19 at 15:33; Status DC Furosemide (Lasix) 40 mg Q8HRS IVP Last administered on 03/20/19at 05:42; Start 03/18/19 at 20:00; Stop 03/20/19 at 08:48; Status DC Digoxin (Lanoxin) 500 mcg 1X ONCE IV Last administered on 03/18/19at 19:35; Start 03/18/19 at 20:00; Stop 03/18/19 at 20:01; Status DC Insulin Human Lispro (HumaLOG) 6 units Q6HRS SQ Last administered on 03/20/19at 05:45; Start 03/19/19 at 12:00; Stop 03/20/19 at 08:48; Status DC Furosemide (Lasix) 80 mg Q8HRS IVP Last administered on 03/21/19at 08:25; Start 03/20/19 at 14:00 Insulin Human Lispro (HumaLOG) 9 units Q6HRS SQ Last administered on 03/21/19at 06:36; Start 03/20/19 at 12:00; Stop 03/21/19 at 10:00; Status DC Methylprednisolone Sodium Succinate (SOLU-Medrol 125MG VIAL) 80 mg Q8HRS IV Last administered on 03/21/19at 08:22; Start 03/20/19 at 11:00 Alteplase, Recombinant (Cathflo For Central Catheter Clearance) 1 mg 1X ONCE INT CAT Last administered on 03/20/19at 20:23; Start 03/20/19 at 20:00; Stop at 20:09; Status DC Alteplase, Recombinant (Cathflo For Central Catheter Clearance) 1 mg 1X ONCE INT CAT Last administered on 03/20/19at 20:23; Start 03/20/19 at 20:00; Stop at 20:09; Status DC Alteplase, Recombinant (Cathflo For Central Catheter Clearance) 1 mg 1X ONCE INT CAT Last administered on 03/20/19at 20:23; Start 03/20/19 at 20:00; Stop at 20:09; Status DC Insulin Human Regular 150 unit/ Sodium Chloride 151.5 ml @ 0 mls/hr CONT PRN IV SEE I/O RECORD Last administered on 03/21/19at 10:29; Start 03/21/19 at 10:00 Dextrose (Dextrose 50%-Water Syringe) 12.5 gm PRN Q15MIN PRN IV LOW BLOOD SUGAR ; Start 03/21/19 at 10:00 Active Scripts Active Reported Proair Hfa Inhaler (Albuterol Sulfate) 8.5 Gm Hfa.aer.ad 1 Puff INH PRN Q6HRS PRN Lantus Solostar (Insulin Glargine,Hum.rec.anlog) 100 Unit/1 Ml Insuln.pen 20 Unit SQ QHS Humalog (Insulin Lispro) 100 Unit/1 Ml Cartridge 6 Unit SQ TIDWMEALS Doxazosin Mesylate 2 Mg Tablet 2 Mg PO DAILY Omeprazole 40 Mg Capsule.dr 40 Mg PO DAILY Amlodipine Besylate 10 Mg Tablet 10 Mg PO DAILY Atorvastatin Calcium 20 Mg Tablet 20 Mg PO DAILY Atenolol 50 Mg Tablet 50 Mg PO DAILY Losartan Potassium 100 Mg Tablet 100 Mg PO DAILY Aspirin 81 Mg Tab.chew 81 Mg PO DAILY Glyburide 5 Mg Tablet 1 Tab PO BID Vitals/I & O Vital Sign - Last 24 Hours 03/20/19 03/20/19 03/20/19 03/20/19 14:00 15:20 15:50 15:52 Temp 99.3 99.3 Pulse 75 Resp 22 22 22 B/P (MAP) 144/67 (92) Pulse Ox 96 97 O2 Delivery Ventilator Ventilator 03/20/19 03/20/19 03/20/19 03/20/19 15:58 16:01 16:50 17:22 Pulse 80 78 Resp 22 B/P (MAP) 167/80 (109) 174/78 Pulse Ox 98 99 O2 Delivery Mechanical Ventilator Ventilator Ventilator 03/20/19 03/20/19 03/20/19 03/20/19 17:23 18:00 19:00 20:00 Temp 99.5 99.5 Pulse 78 76 73 Resp 21 21 B/P (MAP) 174/78 166/81 (109) 142/65 (90) Pulse Ox 98 97 O2 Delivery Ventilator Ventilator Mechanical Ventilator 03/20/19 03/20/19 03/20/1903/20/19 20:00 20:04 21:00 21:29 Pulse 76 76 Resp 21 21 B/P (MAP) 140/65 (90) 140/65 (90) Pulse Ox 98 98 98 98 O2 Delivery Ventilator Ventilator Ventilator Ventilator 03/20/19 03/20/19 03/20/19 03/20/19 21:59 22:00 23:00 23:51 Pulse 76 74 Resp 21 21 B/P (MAP) 160/72 (101) 160/73 (102) Pulse Ox 98 98 98 O2 Delivery Ventilator Ventilator Ventilator Ventilator 03/20/19 03/21/19 03/21/19 03/21/19 23:59 00:00 01:00 01:00 Temp 99.9 99.9 Pulse 80 78 78 Resp 21 B/P (MAP) 158/72 (100) 153/73 153/73 Pulse Ox 98 O2 Delivery Mechanical Ventilator Ventilator 03/21/19 03/21/19 03/21/19 03/21/19 01:00 01:06 02:00 03:00 Pulse 78 76 74 Resp 21 21 21 B/P (MAP) 152/69 (96) 147/68 (94) 152/68 (96) Pulse Ox 98 98 98 98 O2 Delivery Ventilator Ventilator Ventilator Ventilator 03/21/19 03/21/19 03/21/19 03/21/19 03:17 03:50 04:00 04:00 Temp 99.8 99.8 Pulse 69 Resp 22 21 B/P (MAP) 157/71 (99) Pulse Ox 98 98 98 O2 Delivery Ventilator Ventilator Ventilator Mechanical Ventilator 03/21/19 03/21/19 03/21/19 03/21/19 05:00 05:52 05:54 06:00 Pulse 70 69 69 69 Resp 21 21 B/P (MAP) 160/72 (101) 164/76 164/76 168/77 (107) Pulse Ox 97 98 O2 Delivery Ventilator Ventilator 03/21/19 03/21/19 03/21/19 03/21/19 07:00 07:10 08:00 08:00 Temp 98.8 98.8 Pulse 64 Resp 21 B/P (MAP) 158/77 (104) Pulse Ox 98 98 O2 Delivery Ventilator Ventilator Mechanical Ventilator Mechanical Ventilator 03/21/19 03/21/19 03/21/19 03/21/19 08:00 08:25 08:41 09:00 Pulse 69 69 66 Resp 21 21 B/P (MAP) 175/77 (109) 168/77 152/74 (100) Pulse Ox 98 98 98 O2 Delivery Ventilator Ventilator O2 Flow Rate 96.0 03/21/19 03/21/19 03/21/19 03/21/19 09:24 10:00 10:22 10:42 Pulse 69 Resp 21 B/P (MAP) 146/70 (95) Pulse Ox 98 98 98 98 O2 Delivery Ventilator Ventilator Ventilator O2 Flow Rate 96.0 03/21/19 03/21/19 03/21/19 11:00 12:18 12:18 Pulse 68 64 Resp 21 B/P (MAP) 146/69 (94) 148/76 (100) Pulse Ox 98 98 O2 Delivery Ventilator Ventilator Mechanical Ventilator Intake and Output 03/20/19 03/20/19 03/21/19 15:00 23:00 07:00 Intake Total 600 ml 2567 ml 2842 ml Output Total 425 ml 3525 ml 1775 ml Balance 175 ml -958 ml 1067 ml LIONEL FUENTES MD Mar 21, 2019 12:34
--- NOTE | 2019-03-21 18:01 | NUR ---
Patient started on insulin gtt. Glucose checked q1hr and titrated per protocol via glucostabalizer.
[2019-03-22] VITALS (25 sets, daily range): BP systolic 96–165; BP diastolic 55–77
[2019-03-22] MEDS: INSULIN REGULAR VIAL 150 UNIT in 0.9 % SODIUM CHLORIDE 150ML 150 ML IV PRN ×3 (00:51→15:46)
[2019-03-22] MEDS: METOPROLOL TARTRATE 5 MG/5 ML VIAL. IVP SCH ×4 (05:38→23:47)
[2019-03-22] MEDS: FUROSEMIDE 100 MG/10 ML VIAL. IVP SCH ×2 (05:38→12:43)
[2019-03-22] MEDS: HEPARIN for SUB-Q USE 5,000 UNIT/ML VIAL. SQ SCH ×3 (05:41→20:35)
[2019-03-22] MEDS: methylPREDNISolone SOD SUCC PF 125 MG/2 ML VIAL. IV SCH ×3 (05:42→20:34)
[2019-03-22] MEDS: dilTIAZem HCL 30 MG TABLET PO SCH ×4 (05:42→23:47)
--- NOTE | 2019-03-22 07:05 | PDOC ---
PULMONARY PROGRESS NOTES Subjective ON AC MODE SEDATED, propofol fentanyl versed Now on 65% FIO2/15 PEEP, mod secretion Vitals Vital Signs Date Time Temp Pulse Resp B/P (MAP) Pulse Ox O2 Delivery O2 Flow Rate FiO2 03/22/19 06:00 90 21 125/77 (93) 96 Ventilator 03/22/19 04:00 98.5 98.5 03/21/19 15:57 96.0 Comments ros as mentioned as above discussed w rn, rt, other sys otherwise neg on vent sedated HEENT: Other (nc at perrl nose clear orally intubated neck no lad, no thyromegaly) Lungs: Crackles, Other (decrease bs) Cardiovascular: S1, S2, Other (decrease bs) Abdomen: Soft, Non-tender, Other (OBESE no mass) Extremities: Other (venous stasis and edema left, right BKA) Skin: Warm Labs Laboratory Tests Test 03/20/19 07:35 03/20/19 07:51 03/20/19 11:44 03/20/19 17:30 O2 Saturation 83 % (92-99) Arterial Blood pH 7.42 (7.35-7.45) Arterial Blood pCO2 at Patient Temp 58 mmHg (35-46) Arterial Blood pO2 at Patient Temp 48 mmHg (75-108) Arterial Blood HCO3 36 mmol/L (21-28) Arterial Blood Base Excess 10 mmol/L (-3-3) FiO2 80 Glucose (Fingerstick) 306 mg/dL (70-99) 352 mg/dL (70-99) 358 mg/dL (70-99) Test 03/20/19 21:25 03/21/19 00:59 03/21/19 05:56 03/21/19 06:30 Glucose (Fingerstick) 422 mg/dL (70-99) 481 mg/dL (70-99) 435 mg/dL (70-99) Sodium Level 142 mmol/L (136-145) Potassium Level 4.2 mmol/L (3.5-5.1) Chloride Level 101 mmol/L (98-107) Carbon Dioxide Level 32 mmol/L (21-32) Anion Gap 9 (6-14) Blood Urea Nitrogen 72 mg/dL (8-26) Creatinine 1.6 mg/dL (0.7-1.3) Estimated GFR (Cockcroft-Gault) 44.9 Glucose Level 494 mg/dL (70-99) Calcium Level 8.4 mg/dL (8.5-10.1) Phosphorus Level 3.6 mg/dL (2.6-4.7) Albumin 1.9 g/dL (3.4-5.0) Triglycerides Level 824 mg/dL (0-150) Test 03/21/19 07:15 03/21/19 08:57 03/21/19 11:27 03/21/19 12:35 O2 Saturation 98 % (92-99) Arterial Blood pH 7.48 (7.35-7.45) Arterial Blood pCO2 at Patient Temp 48 mmHg (35-46) Arterial Blood pO2 at Patient Temp 108 mmHg (75-108) Arterial Blood HCO3 35 mmol/L (21-28) Arterial Blood Base Excess 10 mmol/L (-3-3) FiO2 90% vent Glucose (Fingerstick) 437 mg/dL (70-99) 444 mg/dL (70-99) 457 mg/dL (70-99) Test 03/21/19 13:35 03/21/19 14:50 03/21/19 15:52 03/21/19 16:55 Glucose (Fingerstick) 436 mg/dL (70-99) 402 mg/dL (70-99) 377 mg/dL (70-99) 367 mg/dL (70-99) Test 03/21/19 17:58 03/21/19 19:02 03/21/19 19:58 03/21/19 21:02 Glucose (Fingerstick) 303 mg/dL (70-99) 320 mg/dL (70-99) 292 mg/dL (70-99) 269 mg/dL (70-99) Test 03/21/19 21:59 03/21/19 23:02 03/21/19 23:57 03/22/19 00:53 Glucose (Fingerstick) 214 mg/dL (70-99) 260 mg/dL (70-99) 255 mg/dL (70-99) 252 mg/dL (70-99) Test 03/22/19 01:59 03/22/19 02:58 03/22/19 03:52 03/22/19 04:54 Glucose (Fingerstick) 220 mg/dL (70-99) 215 mg/dL (70-99) 185 mg/dL (70-99) 174 mg/dL (70-99) Test 03/22/19 05:53 Glucose (Fingerstick) 156 mg/dL (70-99) Laboratory Tests Test 03/21/19 07:15 03/21/19 08:57 03/21/19 11:27 03/21/19 12:35 O2 Saturation 98 % (92-99) Arterial Blood pH 7.48 (7.35-7.45) Arterial Blood pCO2 at Patient Temp 48 mmHg (35-46) Arterial Blood pO2 at Patient Temp 108 mmHg (75-108) Arterial Blood HCO3 35 mmol/L (21-28) Arterial Blood Base Excess 10 mmol/L (-3-3) FiO2 90% vent Glucose (Fingerstick) 437 mg/dL (70-99) 444 mg/dL (70-99) 457 mg/dL (70-99) Test 03/21/19 13:35 03/21/19 14:50 03/21/19 15:52 03/21/19 16:55 Glucose (Fingerstick) 436 mg/dL (70-99) 402 mg/dL (70-99) 377 mg/dL (70-99) 367 mg/dL (70-99) Test 03/21/19 17:58 03/21/19 19:02 03/21/19 19:58 03/21/19 21:02 Glucose (Fingerstick) 303 mg/dL (70-99) 320 mg/dL (70-99) 292 mg/dL (70-99) 269 mg/dL (70-99) Test 03/21/19 21:59 03/21/19 23:02 03/21/19 23:57 03/22/19 00:53 Glucose (Fingerstick) 214 mg/dL (70-99) 260 mg/dL (70-99) 255 mg/dL (70-99) 252 mg/dL (70-99) Test 03/22/19 01:59 03/22/19 02:58 03/22/19 03:52 03/22/19 04:54 Glucose (Fingerstick) 220 mg/dL (70-99) 215 mg/dL (70-99) 185 mg/dL (70-99) 174 mg/dL (70-99) Test 03/22/19 05:53 Glucose (Fingerstick) 156 mg/dL (70-99) Medications Active Scripts Medications Dose Route/Sig Max Daily Dose Days Date Category Proair Hfa Inhaler (Albuterol Sulfate) 8.5 Gm Hfa.aer.ad 1 Puff INH PRN Q6HRS PRN 02/27/19 Reported Lantus Solostar (Insulin Glargine,Hum.rec.anlog) 100 Unit/1 Ml Insuln.pen 20 Unit SQ QHS 02/27/19 Reported Humalog (Insulin Lispro) 100 Unit/1 Ml Cartridge 6 Unit SQ TIDWMEALS 02/27/19 Reported Doxazosin Mesylate 2 Mg Tablet 2 Mg PO DAILY 02/27/19 Reported Omeprazole 40 Mg Capsule.dr 40 Mg PO DAILY 02/27/19 Reported Amlodipine Besylate 10 Mg Tablet 10 Mg PO DAILY 02/27/19 Reported Atorvastatin Calcium 20 Mg Tablet 20 Mg PO DAILY 02/27/19 Reported Atenolol 50 Mg Tablet 50 Mg PO DAILY 02/27/19 Reported Losartan Potassium 100 Mg Tablet 100 Mg PO DAILY 02/27/19 Reported Aspirin 81 Mg Tab.chew 81 Mg PO DAILY 02/27/19 Reported Glyburide 5 Mg Tablet 1 Tab PO BID 11/09/16 Reported Comments CXR REVIEWED 03/21 No significant interval change in diffuse infiltrates and effusion in both lungs. Questionable improved aeration of both upper lobes. Stable support lines and tubes. Impression . 1. Acute hypoxemic /hypercapnic respiratory failure./ ARDS 2. sepsis./ ARDS 3. In-house cardiopulmonary arrest. 4. Normal EF / mild Pulmonary HTN 5. Acute on chronic right-sided heart failure. 6. Possible pneumonia. 7. Morbid obesity. 8. Diabetes. 9. ANASARCA 10. Abnormal CXR/ susperimposed CHF right effusion 03/18, effusion better 03/20 but infiltrates worse 11. azotemia <Conclusion>ECHO The left ventricular systolic function is normal. The ejection fraction is 60-65%. There is normal LV segmental wall motion. Transmitral Doppler flow pattern is Grade I-abnormal relaxation pattern. Trace tricuspid regurgitation. Estimated PAP 33-38 mmHg. There is no evidence of significant pericardial effusion. VENOUS 02/28 Impression: 1. There is no evidence of deep venous thrombosis from the bilateral common femoral to popliteal veins. 2. There is nonspecific right groin lymph node. Plan . AC MODE , PEEP of 15 AND 65% FI02, cont vent support, setting reviewed, titrate fio2 to keep sat 93%, when fio2 down to 50%, will start decreasing peep No room for any weaning cont solumedrol 80 mg q 8 hrs ARDS CXR f/u ANITBX PER ID Diuresis, monitor k, cr bilateral venous Dopplers of lower extremities.NEG hep, pepcid for DVT and GI prophylaxis. Follow Cardiology/ Renal.rec Enteral nutrition elevate hob discussed w rn, rt DNR Overall Prognosis guarded . dr french d/w sister/ Daughter . They understand critical illness. Will continue current aggressive care. may need tracheostomy when more stable MALINDA CR MD Mar 22, 2019 07:05
[2019-03-22] MEDS: IPRATRPIUM/ALBUTEROL 0.5/2.5MG 3 ML NEBU. NEB SCH ×4 (08:14→20:32)
[2019-03-22] MEDS: AZITHROMYCIN 250 MG in IV NORMAL SALINE 250ML 250 ML IV SCH (08:35)
--- NOTE | 2019-03-22 08:54 | PDOC ---
PROGRESS NOTES Chief Complaint Chief Complaint Acute respiratory failure secondary to congestive heart failure, most probably acute on chronic diastolic. s/p intubation. Myocardial infarction ruled out. Hypernatremia secondary to severe dehydration will need to provide water flushes in order to correct electrolyte disturbance. High residuals on tube feedings no evidence of obstructive pattern on x ray done 03/05/2019 Bilateral general scrotal swelling and tenderness. Dm2 obesity, extreme, morbid hx RLE BKA RLE stump with chronic wound. No erythema/warmth left foot nail onychomycosis needs attention when more clinically stable Acute renal failure ATN chronic venous insuff left lower leg Bilateral lower lobe consolidation concerning for multifocal pneumonia Right renal hypodensity measuring 2.5 cm Anasarca. bilateral external iliac lymphadenopathy Trace tricuspid regurgitation. Estimated PAP 33-38 mmHg. Diastolic CHF History of Present Illness History of Present Illness Cont with supportive measures ventilatory support - he has been on support for over 10 days now FiO2 down to 50%, PEEP 15. Started high dose steroids for ARDS 03/20/19, has UOP as well and Cr was better today from 1.9-->1.5. CXR daily. Glucose climbing into mid 200s despite insulin regimen, started on GTT. >900cc UOP Plan: follow recommendations from library sales consultant. UROLOGY CONSULT reviewed no intervention needed except for elevation and diuresis ID CONSULTED - continue with antibiotic as per ID Cont ARDS treatment per ARDSNET protocol Increased glycemic control on insulin GTT for hyperglycemia and hypertriglyceridemia Vitals Vitals Vital Signs Date Time Temp Pulse Resp B/P (MAP) Pulse Ox O2 Delivery O2 Flow Rate FiO2 03/22/19 08:33 96 96.0 03/22/19 08:14 Ventilator 03/22/19 06:00 90 21 125/77 (93) 03/22/19 04:00 98.5 98.5 Physical Exam Physical Exam GENERAL: Sedated and intubated. HEENT: Pupils equal, ETT. OGT LUNGS: Diminished HEART: S1, S2. regular ABDOMEN: Obese, distended, decreased bowel sounds, no grimace or guarding to palpation GENITOURINARY: [place] - less scrotal edema EXTREMITIES: Generalized anasarca. RLE stump with chronic wound. No erythema/ fluctuance/warmth. no cyanosis SKIN: Warm to touch. Flack rash resolved INVENTORY CHECKER: Unresponsive/sedated on vent RUE-PICC (03/09) clean General: Other (SEDATED ON VENT) Heart: Regular rate, Normal S1, Normal S2, No murmurs, Gallops Lungs: Crackles, Other (decrease bs) Abdomen: Normal bowel sounds Extremities: Other (1+ EDEMA) Skin: Other (scale, lower leg ) Labs LABS Laboratory Tests Test 03/21/19 08:57 03/21/19 11:27 03/21/19 12:35 03/21/19 13:35 Glucose (Fingerstick) 437 mg/dL (70-99) 444 mg/dL (70-99) 457 mg/dL (70-99) 436 mg/dL (70-99) Test 03/21/19 14:50 03/21/19 15:52 03/21/19 16:55 03/21/19 17:58 Glucose (Fingerstick) 402 mg/dL (70-99) 377 mg/dL (70-99) 367 mg/dL (70-99) 303 mg/dL (70-99) Test 03/21/19 19:02 03/21/19 19:58 03/21/19 21:02 03/21/19 21:59 Glucose (Fingerstick) 320 mg/dL (70-99) 292 mg/dL (70-99) 269 mg/dL (70-99) 214 mg/dL (70-99) Test 03/21/19 23:02 03/21/19 23:57 03/22/19 00:53 03/22/19 01:59 Glucose (Fingerstick) 260 mg/dL (70-99) 255 mg/dL (70-99) 252 mg/dL (70-99) 220 mg/dL (70-99) Test 03/22/19 02:58 03/22/19 03:52 03/22/19 04:54 03/22/19 05:53 Glucose (Fingerstick) 215 mg/dL (70-99) 185 mg/dL (70-99) 174 mg/dL (70-99) 156 mg/dL (70-99) Test 03/22/19 07:05 Glucose (Fingerstick) 160 mg/dL (70-99) Assessment and Plan Assessmemt and Plan Problems Medical Problems: (1) Acute renal failure Status: Acute (2) Edema Status: Acute (3) Shortness of breath Status: Acute Comment Review of Relevant I have reviewed the following items pascual (where applicable) has been applied. Labs Laboratory Tests Test 03/20/19 11:44 03/20/19 17:30 03/20/19 21:25 03/21/19 00:59 Glucose (Fingerstick) 352 mg/dL (70-99) 358 mg/dL (70-99) 422 mg/dL (70-99) 481 mg/dL (70-99) Test 03/21/19 05:56 03/21/19 06:30 03/21/19 07:15 03/21/19 08:57 Glucose (Fingerstick) 435 mg/dL (70-99) 437 mg/dL (70-99) Sodium Level 142 mmol/L (136-145) Potassium Level 4.2 mmol/L (3.5-5.1) Chloride Level 101 mmol/L (98-107) Carbon Dioxide Level 32 mmol/L (21-32) Anion Gap 9 (6-14) Blood Urea Nitrogen 72 mg/dL (8-26) Creatinine 1.6 mg/dL (0.7-1.3) Estimated GFR (Cockcroft-Gault) 44.9 Glucose Level 494 mg/dL (70-99) Calcium Level 8.4 mg/dL (8.5-10.1) Phosphorus Level 3.6 mg/dL (2.6-4.7) Albumin 1.9 g/dL (3.4-5.0) Triglycerides Level 824 mg/dL (0-150) O2 Saturation 98 % (92-99) Arterial Blood pH 7.48 (7.35-7.45) Arterial Blood pCO2 at Patient Temp 48 mmHg (35-46) Arterial Blood pO2 at Patient Temp 108 mmHg (75-108) Arterial Blood HCO3 35 mmol/L (21-28) Arterial Blood Base Excess 10 mmol/L (-3-3) FiO2 90% vent Test 03/21/19 11:27 03/21/19 12:35 03/21/19 13:35 03/21/19 14:50 Glucose (Fingerstick) 444 mg/dL (70-99) 457 mg/dL (70-99) 436 mg/dL (70-99) 402 mg/dL (70-99) Test 03/21/19 15:52 03/21/19 16:55 03/21/19 17:58 03/21/19 19:02 Glucose (Fingerstick) 377 mg/dL (70-99) 367 mg/dL (70-99) 303 mg/dL (70-99) 320 mg/dL (70-99) Test 03/21/19 19:58 03/21/19 21:02 03/21/19 21:59 03/21/19 23:02 Glucose (Fingerstick) 292 mg/dL (70-99) 269 mg/dL (70-99) 214 mg/dL (70-99) 260 mg/dL (70-99) Test 03/21/19 23:57 03/22/19 00:53 03/22/19 01:59 03/22/19 02:58 Glucose (Fingerstick) 255 mg/dL (70-99) 252 mg/dL (70-99) 220 mg/dL (70-99) 215 mg/dL (70-99) Test 03/22/19 03:52 03/22/19 04:54 03/22/19 05:53 03/22/19 07:05 Glucose (Fingerstick) 185 mg/dL (70-99) 174 mg/dL (70-99) 156 mg/dL (70-99) 160 mg/dL (70-99) Laboratory Tests Test 03/21/19 08:57 03/21/19 11:27 03/21/19 12:35 03/21/19 13:35 Glucose (Fingerstick) 437 mg/dL (70-99) 444 mg/dL (70-99) 457 mg/dL (70-99) 436 mg/dL (70-99) Test 03/21/19 14:50 03/21/19 15:52 03/21/19 16:55 03/21/19 17:58 Glucose (Fingerstick) 402 mg/dL (70-99) 377 mg/dL (70-99) 367 mg/dL (70-99) 303 mg/dL (70-99) Test 03/21/19 19:02 03/21/19 19:58 03/21/19 21:02 03/21/19 21:59 Glucose (Fingerstick) 320 mg/dL (70-99) 292 mg/dL (70-99) 269 mg/dL (70-99) 214 mg/dL (70-99) Test 03/21/19 23:02 03/21/19 23:57 03/22/19 00:53 03/22/19 01:59 Glucose (Fingerstick) 260 mg/dL (70-99) 255 mg/dL (70-99) 252 mg/dL (70-99) 220 mg/dL (70-99) Test 03/22/19 02:58 03/22/19 03:52 03/22/19 04:54 03/22/19 05:53 Glucose (Fingerstick) 215 mg/dL (70-99) 185 mg/dL (70-99) 174 mg/dL (70-99) 156 mg/dL (70-99) Test 03/22/19 07:05 Glucose (Fingerstick) 160 mg/dL (70-99) Microbiology 03/05/19 Blood Culture - Final, Complete NO GROWTH AFTER 5 DAYS 03/08/19 - Final, Complete 03/08/19 - Final, Complete 03/08/19 - Final, Complete 03/08/19 Gram Stain Evaluation - Final, Complete 03/08/19 Sputum Culture - Final, Complete 03/08/19 Sputum Result 1 - Final, Complete 03/02/19 Urine Culture - Final, Complete 03/02/19 Urine Culture Result 1 (LUCIO) - Final, Complete 03/09/19 Aerobic Culture - Final, Complete 03/09/19 Aerobic Culture Result 1 (LUCIO) - Final, Complete 03/09/19 Gram Stain - Final, Complete 03/09/19 Gram Stain Result 1 (LUCIO) - Final, Complete 03/09/19 Gram Stain Result 2 (LUCIO) - Final, Complete Medications Current Medications Ondansetron HCl (Zofran) 4 mg PRN Q8HRS PRN IV NAUSEA/VOMITING; Start 02/27/19 at 16:45; Stop 02/28/19 at 16:44; Status DC Morphine Sulfate (Morphine Sulfate) 2 mg PRN Q2HR PRN IV PAIN; Start 02/27/19 at 16:45; Stop 02/28/19 at 16:44; Status DC Acetaminophen (Tylenol) 650 mg PRN Q4HRS PRN PO FEVER Last administered on 02/27at 21:06; Start 02/27/19 at 16:45; Stop 02/28/19 at 16:44; Status DC Dextrose (Dextrose 50%-Water Syringe) 12.5 gm PRN Q15MIN PRN IV SEE COMMENTS; Start 02/27/19 at 16:45; Stop 03/10/19 at 13:48; Status DC Heparin Sodium (Porcine) (Heparin Sodium) 5,000 unit Q8HRS SQ Last administered on 03/22/19at 05:41; Start 02/27/19 at 17:00 Lorazepam (Ativan) 1 mg PRN Q8HRS PRN IV ANXIETY / AGITATION Last administered on 03/08/19at 03:37; Start 02/28/19 at 02:45 Etomidate (Amidate) 20 mg STK-MED ONCE IV ; Start 02/28/19 at 06:59; Stop at 07:00; Status DC Rocuronium Tatum (Zemuron) 50 mg STK-MED ONCE .ROUTE ; Start 02/28/19 at 07:00 ; Stop 02/28/19 at 09:42; Status DC Dopamine HCl/ Dextrose 250 ml @ 12.266 mls/ hr CONT PRN IV SEE I/O RECORD Last administered on 02/28/19at 08:06; Start 02/28/19 at 07:15; Stop 03/17/19 at 15:50; Status DC Fentanyl Citrate 30 ml @ 0 mls/hr CONT PRN IV SEE PROTOCOL; Start 02/28/19 at 07:15; Stop 02/28/19 at 07:59; Status DC Propofol 100 ml @ 0 mls/hr CONT PRN IV SEE PROTOCOL; Start 02/28/19 at 07:15; Stop 02/28/19 at 07:59; Status DC Fentanyl Citrate (Fentanyl 2ml Vial) 25 mcg PRN Q1HR PRN IV SEE COMMENTS; Start 02/28/19 at 07:15; Stop 02/28/19 at 07:59; Status DC Fentanyl Citrate (Fentanyl 2ml Vial) 50 mcg PRN Q1HR PRN IV SEE COMMENTS; Start 02/28/19 at 07:15; Stop 02/28/19 at 07:59; Status DC Midazolam HCl 100 ml @ 0 mls/hr CONT PRN IV SEE PROTOCOL Last administered on at 23:35; Start 02/28/19 at 07:15 Sodium Chloride 1,000 ml @ 1,000 mls/hr Q1H IV Last administered on 02/28/19at 07:32; Start 02/28/19 at 07:32; Stop 02/28/19 at 10:09; Status DC Fentanyl Citrate (Fentanyl 2ml Vial) 25 mcg PRN Q30MIN PRN IV see comments; Start 02/28/19 at 07:45; Stop 02/28/19 at 09:42; Status DC Lorazepam (Ativan) 1 mg PRN Q30MIN PRN IV SEDATION; Start 02/28/19 at 07:45; Stop 02/28/19 at 09:42; Status DC Fentanyl Citrate 30 ml @ 2.5 mls/hr CONT PRN PRN IV SEE I/O RECORD Last administered on 03/05/19at 03:44; Start 02/28/19 at 07:45; Stop 03/05/19 at 04:40; Status DC Propofol 100 ml @ 0 mls/hr CONT PRN IV SEE I/O RECORD Last administered on 03/21at 21:38; Start 02/28/19 at 07:45 Vecuronium Tatum (Norcuron Bolus) 10 mg PRN Q30MIN PRN IV SHIVERING; Start at 07:45; Stop 02/28/19 at 09:42; Status DC Meperidine HCl (Demerol) 12.5 mg PRN Q30MIN PRN IV SHIVERING; Start 02/28/19 at 07:45; Stop 02/28/19 at 09:42; Status DC Multi-Ingred Cream/Lotion/Oil/ Oint (Artificial Tears Eye Ointment) 1 jennifer PRN Q6HRS PRN OU 0.5 INCH FOR DRY EYE; Start 02/28/19 at 07:45; Stop 02/28/19 at 09 :42; Status DC Famotidine (Pepcid Vial) 20 mg BID IVP Last administered on 02/28/19at 11:03; Start 02/28/19 at 09:00; Stop 02/28/19 at 14:25; Status DC Aspirin (Aspirin) 300 mg DAILY MD ; Start 02/28/19 at 09:00; Stop 02/28/19 at 09 :42; Status DC Sodium Chloride (Normal Saline Flush) 3 ml QSHIFT PRN IV AFTER MEDS AND BLOOD DRAWS; Start 02/28/19 at 07:45 Acetaminophen (Tylenol) 650 mg Q6HRS NG ; Start 02/28/19 at 12:00; Stop at 12:00; Status DC Acetaminophen (Tylenol Supp) 650 mg PRN Q6HRS PRN MD MILD PAIN / TEMP; Start at 07:45; Stop 03/01/19 at 07:45; Status DC Acetaminophen (Tylenol) 650 mg PRN Q6HRS PRN NG MILD PAIN / TEMP; Start at 07:45; Stop 03/01/19 at 07:45; Status DC Info (Icu Electrolyte Protocol) 1 ea DAILY PRN MC PER PROTOCOL; Start 03/02/19 at 07:45; Stop 03/02/19 at 07:45; Status DC Furosemide (Lasix) 60 mg 1X ONCE IVP Last administered on 02/28/19at 08:30; Start 02/28/19 at 08:30; Stop 02/28/19 at 08:31; Status DC Ceftriaxone Sodium (Rocephin) 1 gm Q24H IVP Last administered on 02/28/19at 11: 03; Start 02/28/19 at 11:00; Stop 02/28/19 at 11:18; Status DC Calcium Chloride 1000 mg/Dextrose 60 ml @ 120 mls/hr 1X ONCE IV Last administered on 02/28/19at 11:03; Start 02/28/19 at 10:30; Stop 02/28/19 at 10:59 ; Status DC Meropenem 500 mg/ Sodium Chloride 50 ml @ 100 mls/hr Q8HRS IV Last administered on 03/03/19at 06:24; Start 02/28/19 at 14:00; Stop 03/03/19 at 07:04; Status DC Linezolid/Dextrose 300 ml @ 300 mls/hr Q12HR IV Last administered on 03/03/19at 20:00; Start 02/28/19 at 11:30; Stop 03/04/19 at 08:55; Status DC Micafungin Sodium 100 mg/Dextrose 100 ml @ 100 mls/hr Q24H IV Last administered on 03/04/19at 15:53; Start 02/28/19 at 12:00; Stop 03/05/19 at 06:47; Status DC Furosemide (Lasix) 40 mg [id number] IVP Last administered on 03/02/19 14:06; Start 02/28/19 at 14:00; Stop 03/02/19 at 17:02; Status DC Famotidine (Pepcid Vial) 20 mg QHS IVP Last administered on 03/01/19at 21:24; Start 02/28/19 at 21:00; Stop 03/02/19 at 10:07; Status DC Albuterol/ Ipratropium (Duoneb) 3 ml RTQID NEB Last administered on 03/22/19 08:14; Start 02/28/19 at 16:00 Haloperidol Lactate (Haldol Inj) 5 mg PRN Q6HRS PRN IVP AGITATION 2ND CHOICE Last administered on 03/09/19 14:07; Start 02/28/19 at 15:15 Vecuronium Tatum (Norcuron Bolus) 8 mg PRN Q4HRS PRN IV MUSCLE SPASMS Last administered on 03/12/19at 23:48; Start 02/28/19 at 15:15 Perflutren Protein Type A Microsphe (Optison) 0.66 mg PRN 1X PRN IV SEE COMMENTS; Start 03/01/19 at 10:00; Stop 03/02/19 at 09:59; Status DC Digoxin (Lanoxin) 125 mcg 1X STAT IV ; Start 03/01/19 at 15:34; Stop 03/01/19 at 16:00; Status DC Sodium Chloride 500 ml @ 500 mls/hr 1X ONCE IV Last administered on 18:46; Start 03/01/19 at 18:45; Stop 03/01/19 at 19:44; Status DC Famotidine (Pepcid Vial) 20 mg Q12HR IVP Last administered on 03/21/19 21:39; Start 03/02/19 at 21:00 Furosemide (Lasix) 40 mg DAILY IVP Last administered on 03/04/19 09:52; Start 03/03/19 at 09:00; Stop 03/04/19 at 12:13; Status DC Acetaminophen (Tylenol Supp) 650 mg PRN Q6HRS PRN MD MILD PAIN / TEMP Last administered on 4/2/19at 17:39; Start 03/02/19 at 17:15 Meropenem 500 mg/ Sodium Chloride 50 ml @ 100 mls/hr Q6HRS IV Last administered on 03/05/19 05:33; Start 03/03/19 at 12:00; Stop 03/05/19 at 06:47; Status DC Albumin Human 100 ml @ 100 mls/hr 1X ONCE IV Last administered on 03/03/19 08 :52; Start 03/03/19 at 08:30; Stop 03/03/19 at 09:29; Status DC Atropine Sulfate (ATROPINE 0.5mg SYRINGE) 2 mg STK-MED ONCE .ROUTE ; Start 02/27 at 16:21; Stop 03/03/19 at 16:22; Status DC Dopamine HCl/ Dextrose (DOPamine 400MG/ 250ML PREMIX) 400 mg STK-MED ONCE IV ; Start 02/27/19 at 16:21; Stop 03/03/19 at 16:22; Status DC Furosemide (Lasix) 40 mg 1X ONCE IVP Last administered on 03/03/19at 18:46; Start 03/03/19 at 18:45; Stop 03/03/19 at 18:46; Status DC Lorazepam 100 mg/ Sodium Chloride 100 ml @ 0 mls/hr CONT PRN IV SEE PROTOCOL Last administered on 03/03/19 22:18; Start 03/03/19 at 22:00; Stop 03/17/19 at 15 :39; Status DC Acetaminophen (Tylenol) 650 mg PRN Q6HRS PRN PEG MILD PAIN / TEMP Last administered on 03/10/19at 20:48; Start 03/04/19 at 11:45 Furosemide (Lasix) 40 mg BID92 IVP Last administered on 03/06/19 08:38; Start 03/04/19 at 14:00; Stop 03/06/19 at 13:30; Status DC Fentanyl Citrate 30 ml @ 0 mls/hr CONT PRN IV SEE PROTOCOL Last administered on 03/22/19at 08:33; Start 03/05/19 at 04:45 Cefepime HCl (Maxipime) 2 gm Q8HRS IVP Last administered on 03/10/19 05:43; Start 03/05/19 at 06:45; Stop 03/10/19 at 08:29; Status DC Metronidazole 100 ml @ 100 mls/hr Q8HRS IV Last administered on 03/10/19 05:45 ; Start 03/05/19 at 06:45; Stop 03/10/19 at 08:29; Status DC Linezolid/Dextrose 300 ml @ 300 mls/hr Q12HR IV Last administered on 03/05/19 21:24; Start 03/05/19 at 09:00; Stop 03/06/19 at 06:42; Status DC Metoclopramide HCl (Reglan Vial) 10 mg QIDACHS IV Last administered on 20:43; Start 03/05/19 at 11:30; Stop 03/07/19 at 07:37; Status DC Insulin Glargine (Lantus) 12 units BID SQ Last administered on 03/09/19 09:29; Start 03/05/19 at 09:00; Stop 03/09/19 at 17:11; Status DC Digoxin (Lanoxin) 500 mcg 1X ONCE IV Last administered on 03/06/19 00:48; Start 03/06/19 at 00:45; Stop 03/06/19 at 00:46; Status DC Metoprolol Tartrate (Lopressor Vial) 5 mg 1X ONCE IVP Last administered on 03/06 00:53; Start 03/06/19 at 00:45; Stop 03/06/19 at 00:46; Status DC Sodium Chloride 500 ml @ 500 mls/hr 1X ONCE IV Last administered on 03/06/19 00:49; Start 03/06/19 at 00:45; Stop 03/06/19 at 01:44; Status DC Nystatin (Mycostatin) 1 jennifer BID TP Last administered on 03/21/19 21:45; Start 03/06/19 at 09:00 Sodium Cl/Sod Bicarb/Potass Cl/ PEG (Golytely) 2,000 ml 1X ONCE PO Last administered on 03/06/19 09:33; Start 03/06/19 at 08:00; Stop 03/06/19 at 08:01; Status DC Furosemide (Lasix) 40 mg DAILY08 IVP Last administered on 03/09/19 09:27; Start 03/07/19 at 08:00; Stop 03/09/19 at 12:45; Status DC Metoprolol Tartrate (Lopressor Vial) 10 mg 1X ONCE IVP Last administered on 03/06/19at 16:08; Start 03/06/19 at 15:15; Stop 03/06/19 at 15:16; Status DC Metoprolol Tartrate (Lopressor Vial) 5 mg Q6HRS IVP Last administered on at 17:03; Start 03/06/19 at 18:00; Stop 03/07/19 at 18:27; Status DC Aspirin (Children'S Aspirin) 81 mg 1X ONCE PO Last administered on 03/06/19at 18 :18; Start 03/06/19 at 17:00; Stop 03/06/19 at 17:01; Status DC Aspirin (Children'S Aspirin) 81 mg DAILYWBKFT PO Last administered on at 08:22; Start 03/07/19 at 08:00 Labetalol HCl (Normodyne Iv Push) 20 mg PRN Q2HR PRN IVP HYPERTENSION, SEE COMMENTS Last administered on 03/06/19at 21:29; Start 03/06/19 at 17:15 Digoxin (Lanoxin) 250 mcg 1X ONCE IV Last administered on 03/06/19at 22:00; Start 03/06/19 at 22:00; Stop 03/06/19 at 22:01; Status DC Diltiazem HCl 125 mg/Dextrose 125 ml @ 5 mls/hr CONT PRN IV SEE I/O RECORD Last administered on 03/12/19at 08:20; Start 03/06/19 at 23:00; Stop 03/12/19 at 11:03; Status DC Metoclopramide HCl (Reglan Vial) 10 mg Q6HRS IV ; Start 03/07/19 at 08:00; Stop 03/08/19 at 07:51; Status DC Metoprolol Tartrate (Lopressor Vial) 5 mg Q6HRS IVP Last administered on at 05:38; Start 03/08/19 at 12:00 Furosemide (Lasix) 40 mg 1X ONCE IVP Last administered on 03/08/19at 21:21; Start 03/08/19 at 21:00; Stop 03/08/19 at 21:01; Status DC Furosemide (Lasix) 20 mg DAILY08 IVP ; Start 03/10/19 at 08:00; Stop 03/10/19 at 08:00; Status DC Furosemide (Lasix) 20 mg DAILY08 IVP Last administered on 03/14/19at 07:41; Start 03/10/19 at 08:00; Stop 03/15/19 at 07:32; Status DC Insulin Glargine (Lantus) 16 units BID SQ Last administered on 03/12/19at 00:09 ; Start 03/09/19 at 21:00; Stop 03/12/19 at 07:18; Status DC Insulin Human Lispro (HumaLOG) 0-9 UNITS Q6HRS SQ Last administered on at 05:45; Start 03/09/19 at 18:00; Stop 03/12/19 at 07:18; Status DC Dextrose (Dextrose 50%-Water Syringe) 12.5 gm PRN Q15MIN PRN IV SEE COMMENTS; Start 03/09/19 at 17:15; Stop 03/21/19 at 10:07; Status DC Cefepime HCl (Maxipime) 2 gm Q12HR IVP Last administered on 03/21/19at 08:26; Start 03/10/19 at 21:00; Stop 03/21/19 at 12:48; Status DC Insulin Human Lispro (HumaLOG) 15 units 1X ONCE SQ Last administered on at 00:14; Start 03/11/19 at 00:00; Stop 03/11/19 at 00:01; Status DC Insulin Glargine (Lantus) 20 units BID SQ Last administered on 03/17/19at 08:32 ; Start 03/12/19 at 09:00; Stop 03/17/19 at 10:46; Status DC Insulin Human Lispro (HumaLOG) 0-9 UNITS Q6HRS SQ Last administered on at 06:35; Start 03/12/19 at 12:00; Stop 03/21/19 at 10:00; Status DC Diltiazem HCl (Cardizem) 30 mg Q6HRS PO Last administered on 03/22/19at 05:42; Start 03/12/19 at 12:00 Furosemide (Lasix) 20 mg 1X ONCE IVP Last administered on 03/13/19at 11:04; Start 03/13/19 at 10:30; Stop 03/13/19 at 10:31; Status DC Furosemide (Lasix) 20 mg 1X ONCE IVP Last administered on 03/14/19at 07:40; Start 03/14/19 at 07:15; Stop 03/14/19 at 14:05; Status DC Furosemide (Lasix) 40 mg Q8HRS IVP Last administered on 03/17/19at 05:49; Start 03/14/19 at 22:00; Stop 03/17/19 at 10:58; Status DC Albuterol Sulfate (Ventolin Neb Soln) 2.5 mg 1X ONCE NEB Last administered on 03/16/19at 04:00; Start 03/16/19 at 04:00; Stop 03/16/19 at 04:01; Status DC Methylprednisolone Sodium Succinate (SOLU-Medrol 40MG VIAL) 80 mg 1X ONCE IV Last administered on 03/16/19at 04:17; Start 03/16/19 at 04:30; Stop 03/16/19 at 04:31; Status DC Furosemide (Lasix) 20 mg 1X ONCE IVP Last administered on 03/16/19at 04:17; Start 03/16/19 at 04:30; Stop 03/16/19 at 04:31; Status DC Insulin Glargine (Lantus) 25 units BID SQ Last administered on 03/21/19at 08:55 ; Start 03/17/19 at 21:00; Stop 03/21/19 at 10:00; Status DC Insulin Human Lispro (HumaLOG) 10 units Q6HRS SQ ; Start 03/17/19 at 12:00; Stop 03/17/19 at 13:32; Status DC Furosemide (Lasix) 40 mg QD IVP Last administered on 03/18/19at 05:55; Start at 06:00; Stop 03/18/19 at 10:54; Status DC Insulin Human Lispro (HumaLOG) 3 units Q6HRS SQ Last administered on 03/19/19at 06:12; Start 03/17/19 at 18:00; Stop 03/19/19 at 08:28; Status DC Azithromycin 250 mg/Sodium Chloride 250 ml @ 250 mls/hr Q24H IV Last administered on 03/22/19at 08:35; Start 03/18/19 at 08:00 Alteplase, Recombinant (Cathflo For Central Catheter Clearance) 1 mg 1X ONCE INT CAT Last administered on 03/18/19at 09:21; Start 03/18/19 at 07:30; Stop at 07:31; Status DC Alteplase, Recombinant (Cathflo For Central Catheter Clearance) 1 mg 1X ONCE INT CAT Last administered on 03/18/19at 11:04; Start 03/18/19 at 07:30; Stop at 07:31; Status DC Alteplase, Recombinant (Cathflo For Central Catheter Clearance) 1 mg 1X ONCE INT CAT Last administered on 03/18/19at 13:26; Start 03/18/19 at 07:30; Stop at 07:31; Status DC Furosemide (Lasix) 60 mg 1X ONCE IVP Last administered on 03/18/19at 11:04; Start 03/18/19 at 10:54; Stop 03/18/19 at 10:55; Status DC Furosemide (Lasix) 40 mg Q8HRS IVP ; Start 03/18/19 at 14:00; Stop 03/18/19 at 17:53; Status DC Digoxin (Lanoxin) 250 mcg 1X ONCE IV Last administered on 03/18/19at 15:48; Start 03/18/19 at 15:30; Stop 03/18/19 at 15:33; Status DC Furosemide (Lasix) 40 mg Q8HRS IVP Last administered on 03/20/19at 05:42; Start 03/18/19 at 20:00; Stop 03/20/19 at 08:48; Status DC Digoxin (Lanoxin) 500 mcg 1X ONCE IV Last administered on 03/18/19at 19:35; Start 03/18/19 at 20:00; Stop 03/18/19 at 20:01; Status DC Insulin Human Lispro (HumaLOG) 6 units Q6HRS SQ Last administered on 03/20/19at 05:45; Start 03/19/19 at 12:00; Stop 03/20/19 at 08:48; Status DC Furosemide (Lasix) 80 mg Q8HRS IVP Last administered on 03/22/19at 05:38; Start 03/20/19 at 14:00 Insulin Human Lispro (HumaLOG) 9 units Q6HRS SQ Last administered on 03/21/19at 06:36; Start 03/20/19 at 12:00; Stop 03/21/19 at 10:00; Status DC Methylprednisolone Sodium Succinate (SOLU-Medrol 125MG VIAL) 80 mg Q8HRS IV Last administered on 03/22/19at 05:42; Start 03/20/19 at 11:00 Alteplase, Recombinant (Cathflo For Central Catheter Clearance) 1 mg 1X ONCE INT CAT Last administered on 03/20/19at 20:23; Start 03/20/19 at 20:00; Stop at 20:09; Status DC Alteplase, Recombinant (Cathflo For Central Catheter Clearance) 1 mg 1X ONCE INT CAT Last administered on 03/20/19at 20:23; Start 03/20/19 at 20:00; Stop at 20:09; Status DC Alteplase, Recombinant (Cathflo For Central Catheter Clearance) 1 mg 1X ONCE INT CAT Last administered on 03/20/19at 20:23; Start 03/20/19 at 20:00; Stop at 20:09; Status DC Insulin Human Regular 150 unit/ Sodium Chloride 151.5 ml @ 0 mls/hr CONT PRN IV SEE I/O RECORD Last administered on 03/22/19at 08:32; Start 03/21/19 at 10:00 Dextrose (Dextrose 50%-Water Syringe) 12.5 gm PRN Q15MIN PRN IV LOW BLOOD SUGAR ; Start 03/21/19 at 10:00 Active Scripts Active Reported Proair Hfa Inhaler (Albuterol Sulfate) 8.5 Gm Hfa.aer.ad 1 Puff INH PRN Q6HRS PRN Lantus Solostar (Insulin Glargine,Hum.rec.anlog) 100 Unit/1 Ml Insuln.pen 20 Unit SQ QHS Humalog (Insulin Lispro) 100 Unit/1 Ml Cartridge 6 Unit SQ TIDWMEALS Doxazosin Mesylate 2 Mg Tablet 2 Mg PO DAILY Omeprazole 40 Mg Capsule.dr 40 Mg PO DAILY Amlodipine Besylate 10 Mg Tablet 10 Mg PO DAILY Atorvastatin Calcium 20 Mg Tablet 20 Mg PO DAILY Atenolol 50 Mg Tablet 50 Mg PO DAILY Losartan Potassium 100 Mg Tablet 100 Mg PO DAILY Aspirin 81 Mg Tab.chew 81 Mg PO DAILY Glyburide 5 Mg Tablet 1 Tab PO BID Vitals/I & O Vital Sign - Last 24 Hours 03/21/19 03/21/19 03/21/19 03/21/19 09:00 09:24 10:00 10:42 Pulse 66 69 Resp 21 21 B/P (MAP) 152/74 (100) 146/70 (95) Pulse Ox 98 98 98 98 O2 Delivery Ventilator Ventilator Ventilator Ventilator 03/21/19 03/21/19 03/21/19 03/21/19 11:00 12:18 12:18 13:04 Pulse 68 64 Resp B/P (MAP) 146/69 (94) 148/76 (100) Pulse Ox 98 98 97 O2 Delivery Ventilator Ventilator Mechanical Ventilator Ventilator 03/21/19 03/21/19 03/21/19 03/21/19 13:09 14:00 14:58 15:00 Pulse 65 64 65 Resp B/P (MAP) 151/71 (97) 148/72 (97) 114/71 (85) Pulse Ox 98 98 96 98 O2 Delivery Ventilator Ventilator Ventilator Ventilator 03/21/19 03/21/19 03/21/19 03/21/19 15:05 15:57 16:00 16:00 Pulse 66 Resp 21 B/P (MAP) 120/57 (78) Pulse Ox 98 O2 Delivery Ventilator Ventilator Mechanical Ventilator O2 Flow Rate 96.0 03/21/19 03/21/19 03/21/19 03/21/19 17:00 17:53 18:00 19:00 Pulse 65 65 64 64 Resp B/P (MAP) 120/59 (79) 120/59 128/60 (82) 128/59 (82) Pulse Ox 98 98 98 O2 Delivery Ventilator Ventilator Ventilator 03/21/19 03/21/19 03/21/19 03/21/19 20:00 20:00 20:46 21:00 Temp 99.8 99.8 Pulse 64 94 Resp B/P (MAP) 128/61 (83) 63/44 (50) Pulse Ox 98 98 98 O2 Delivery Mechanical Ventilator Ventilator Ventilator Ventilator 03/21/19 03/21/19 03/21/19 03/21/19 22:00 23:00 23:36 23:37 Pulse 128 128 128 128 Resp B/P (MAP) 114/68 (83) 118/65 (82) 118/65 118/65 Pulse Ox 98 98 O2 Delivery Ventilator Ventilator 03/21/19 03/21/19 03/22/19 03/22/19 23:57 23:59 00:00 01:00 Temp 99.8 99.8 Pulse 104 109 Resp B/P (MAP) 132/74 (93) 116/61 (79) Pulse Ox 98 98 98 O2 Delivery Ventilator Mechanical Ventilator Ventilator Ventilator 03/22/19 03/22/19 03/22/19 03/22/19 02:00 02:00 03:00 03:38 Pulse 108 104 Resp B/P (MAP) 99/60 (73) 117/72 (87) Pulse Ox 98 98 96 98 O2 Delivery Ventilator Ventilator Ventilator Ventilator 03/22/19 03/22/19 03/22/19 03/22/19 04:00 04:00 04:08 04:25 Temp 98.5 98.5 Pulse 100 Resp B/P (MAP) 115/69 (84) Pulse Ox 96 98 98 O2 Delivery Mechanical Ventilator Ventilator Ventilator Ventilator 03/22/19 03/22/19 03/22/19 03/22/19 05:00 05:38 05:42 06:00 Pulse 100 100 108 90 Resp B/P (MAP) 109/73 (85) 109/73 109/73 125/77 (93) Pulse Ox 97 96 O2 Delivery Ventilator Ventilator 03/22/19 03/22/19 08:14 08:33 Pulse Ox 96 96 O2 Delivery Ventilator O2 Flow Rate 96.0 Intake and Output 03/21/19 03/21/19 03/22/19 15:00 23:00 07:00 Intake Total 880 ml 1095 ml 2854 ml Output Total 2050 ml 510 ml 1225 ml Balance -1170 ml 585 ml 1629 ml YRIS RUIZ MD Mar 22, 2019 08:54
[2019-03-22 09:02] LABS: BASE EXCESS ABG 10 mmol/L (-3-3); HCO3 ABG 35 mmol/L (21-28); PCO2 ABG 52 mmHg (35-46); PO2 ABG 86 mmHg (75-108); SAT O2 ABG 96 % (92-99)
[2019-03-22 09:04] LABS: FIO2 ABG 65
[2019-03-22] MEDS: PROPOFOL 100 ML IV PRN ×2 (09:24→15:49)
[2019-03-22] MEDS: ASPIRIN CHEWABLE 81 MG TABLET. PO SCH (10:35)
[2019-03-22] MEDS: NYSTATIN 100,000 UNIT/GM TOPICAL CREAM 15GM TUBE. TP SCH ×2 (10:36→20:33)
[2019-03-22] MEDS: FAMOTIDINE 20 MG/2 ML VIAL IVP SCH ×2 (10:36→20:33)
[2019-03-22 13:35] LABS: HEMATOCRIT 34.6 % (39.0-53.0); RED BLOOD COUNT 3.7 x10^6/uL (4.30-5.70); RED CELL DISTRIBUTION WIDTH 14.1 % (11.5-14.5); WHITE BLOOD COUNT 13.5 x10^3/uL (4.0-11.0)
[2019-03-22 13:45] LABS: CALCIUM 8.3 mg/dL (8.5-10.1); CREATININE 1.7 mg/dL (0.7-1.3); GFR 41.9; POTASSIUM 3.2 mmol/L (3.5-5.1)
[2019-03-22] MEDS ORDERED: POTASSIUM CHLORIDE 20 MEQ/15 ML ORAL LIQUID. PEG ONE (17:30)
[2019-03-22 17:38] LABS: MAGNESIUM 2.3 mg/dL (1.8-2.4); PHOSPHORUS 4.6 mg/dL (2.6-4.7)
[2019-03-22] MEDS: MIDAZOLAM 100mg/100ml NS BAG 100 ML IV PRN (19:52)
[2019-03-23] VITALS (23 sets, daily range): BP systolic 150–187; BP diastolic 60–79
[2019-03-23] MEDS: INSULIN REGULAR VIAL 150 UNIT in 0.9 % SODIUM CHLORIDE 150ML 150 ML IV PRN ×3 (01:38→20:05)
[2019-03-23] MEDS: PROPOFOL 100 ML IV PRN ×3 (03:31→17:04)
[2019-03-23] MEDS: methylPREDNISolone SOD SUCC PF 125 MG/2 ML VIAL. IV SCH ×3 (05:11→21:17)
[2019-03-23] MEDS: FUROSEMIDE 100 MG/10 ML VIAL. IVP SCH (05:11)
[2019-03-23] MEDS: METOPROLOL TARTRATE 5 MG/5 ML VIAL. IVP SCH ×4 (05:12→23:44)
[2019-03-23] MEDS: dilTIAZem HCL 30 MG TABLET PO SCH ×4 (05:12→23:44)
[2019-03-23] MEDS: HEPARIN for SUB-Q USE 5,000 UNIT/ML VIAL. SQ SCH ×3 (05:13→21:17)
--- NOTE | 2019-03-23 07:10 | PDOC ---
Infectious Disease Note Subjective Subjective Pt remains intubated and sedated Tube feedings No fevers last 72 hours Vital Sign Vital Signs Vital Signs Date Time Temp Pulse Resp B/P (MAP) Pulse Ox O2 Delivery O2 Flow Rate FiO2 03/23/19 06:00 64 21 187/77 (113) 96 Ventilator 03/23/19 05:37 40.0 03/23/19 04:00 98.4 98.4 Physical Exam PHYSICAL EXAM GENERAL: Sedated and intubated. HEENT: Pupils equal, ETT. OGT LUNGS: Diminished HEART: S1, S2. regular ABDOMEN: Obese, distended, decreased bowel sounds, no grimace or guarding to palpation GENITOURINARY: [place] - less scrotal edema but still present EXTREMITIES: Generalized anasarca. RLE stump with chronic wound. No erythema/ fluctuance/warmth. no cyanosis SKIN: Warm to touch. 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: Unresponsive/sedated on vent RUE-PICC (03/09) clean Labs Lab Laboratory Tests Test 03/22/19 08:20 03/22/19 09:04 03/22/19 10:05 03/22/19 11:08 O2 Saturation 96 % (92-99) Arterial Blood pH 7.45 (7.35-7.45) Arterial Blood pCO2 at Patient Temp 52 mmHg (35-46) Arterial Blood pO2 at Patient Temp 86 mmHg (75-108) Arterial Blood HCO3 35 mmol/L (21-28) Arterial Blood Base Excess 10 mmol/L (-3-3) FiO2 65 Glucose (Fingerstick) 190 mg/dL (70-99) 161 mg/dL (70-99) 165 mg/dL (70-99) Test 03/22/19 12:19 03/22/19 13:15 03/22/19 13:26 03/22/19 14:33 Glucose (Fingerstick) 136 mg/dL (70-99) 125 mg/dL (70-99) 118 mg/dL (70-99) White Blood Count 13.5 x10^3/uL (4.0-11.0) Red Blood Count 3.70 x10^6/uL (4.30-5.70) Hemoglobin 11.0 g/dL (13.0-17.5) Hematocrit 34.6 % (39.0-53.0) Mean Corpuscular Volume 94 fL (79-100) Mean Corpuscular Hemoglobin 30 pg (25-35) Mean Corpuscular Hemoglobin Concent 32 g/dL (31-37) Red Cell Distribution Width 14.1 % (11.5-14.5) Platelet Count 370 x10^3/uL (140-400) Sodium Level 150 mmol/L (136-145) Potassium Level 3.2 mmol/L (3.5-5.1) Chloride Level 109 mmol/L (98-107) Carbon Dioxide Level 34 mmol/L (21-32) Anion Gap 7 (6-14) Blood Urea Nitrogen 86 mg/dL (8-26) Creatinine 1.7 mg/dL (0.7-1.3) Estimated GFR (Cockcroft-Gault) 41.9 Glucose Level 143 mg/dL (70-99) Calcium Level 8.3 mg/dL (8.5-10.1) Phosphorus Level 4.6 mg/dL (2.6-4.7) Magnesium Level 2.3 mg/dL (1.8-2.4) Test 03/22/19 15:38 03/22/19 16:48 03/22/19 17:52 03/22/19 19:07 Glucose (Fingerstick) 162 mg/dL (70-99) 138 mg/dL (70-99) 153 mg/dL (70-99) 142 mg/dL (70-99) Test 03/22/19 19:58 03/22/19 21:06 03/22/19 23:21 03/23/19 01:22 Glucose (Fingerstick) 141 mg/dL (70-99) 155 mg/dL (70-99) 150 mg/dL (70-99) 143 mg/dL (70-99) Test 03/23/19 03:28 03/23/19 04:33 03/23/19 05:23 03/23/19 06:19 Glucose (Fingerstick) 129 mg/dL (70-99) 126 mg/dL (70-99) 120 mg/dL (70-99) 131 mg/dL (70-99) Micro CT IMPRESSION: 1. Mild nonspecific perinephric stranding with slight asymmetric stranding adjacent to the left renal pelvis. Findings may be due to chronic kidney disease, though ascending urinary tract infection is not excluded. 2. Bilateral lower lobe consolidation concerning for multifocal pneumonia or pneumonitis with aspiration not excluded. 3. Right renal hypodensity measuring 2.5 cm is incompletely evaluated on noncontrast examination. Follow-up MRI or CT abdomen and pelvis renal protocol with contrast is recommended for further evaluation. 4. Anasarca. 5. Mild bilateral external iliac lymphadenopathy, may be reactive, though follow-up CT abdomen and pelvis in 3 months is recommended to assess for stability/resolution. 6. Nonobstructive left nephrolithiasis. 7. Coronary artery calcifications. Microbiology 02/28/19 Blood Culture - Preliminary, Resulted NO GROWTH AFTER 1 DAY Objective Assessment Leukocytosis - sec to steroids Fever - ? Infection vs ileus vs drug reaction -better Hyperglycemia improved Flank rash - no Eosinophilia but ? drug - had been on micafungin so less likely yeast Tachycardia - s/p Bolus/Digoxin and Metoprolol Increased GI residuals - Has been on/off ? Ileus vs DM gastroparesis Acute respiratory failure, intubated, increased infiltrates today - ARDS Scrotal edema/cellulitis. Status post code. Fluid overload - mild increase Acute kidney injury - worse Distant history of group B strep, Acinetobacter, Porphyromonas, plus anaerobes. Plan Plan of Care Off abx aside from azithromycin per primary since 03/18 Now on steroids Prognosis poor ID to Sign off D/w nursing QUIANA PACK MD Mar 23, 2019 07:10
[2019-03-23] MEDS: IPRATRPIUM/ALBUTEROL 0.5/2.5MG 3 ML NEBU. NEB SCH ×4 (07:30→19:59)
[2019-03-23 07:47] LABS: BASE EXCESS ABG 7 mmol/L (-3-3); HCO3 ABG 33 mmol/L (21-28); PCO2 ABG 49 mmHg (35-46); PO2 ABG 70 mmHg (75-108); SAT O2 ABG 94 % (92-99)
[2019-03-23 07:49] LABS: FIO2 ABG 40
[2019-03-23] MEDS: AZITHROMYCIN 250 MG in IV NORMAL SALINE 250ML 250 ML IV SCH (08:13)
[2019-03-23] MEDS: ASPIRIN CHEWABLE 81 MG TABLET. PO SCH (08:13)
[2019-03-23] MEDS: FAMOTIDINE 20 MG/2 ML VIAL IVP SCH ×2 (08:14→21:17)
[2019-03-23] MEDS: NYSTATIN 100,000 UNIT/GM TOPICAL CREAM 15GM TUBE. TP SCH ×2 (08:14→21:18)
[2019-03-23 08:40] LABS: HEMATOCRIT 35.6 % (39.0-53.0); HEMOGLOBIN 11.5 g/dL (13.0-17.5); RED BLOOD COUNT 3.81 x10^6/uL (4.30-5.70); RED CELL DISTRIBUTION WIDTH 14.5 % (11.5-14.5); WHITE BLOOD COUNT 11.4 x10^3/uL (4.0-11.0)
[2019-03-23 09:01] LABS: ALBUMIN 2.1 g/dL (3.4-5.0); CALCIUM 8.2 mg/dL (8.5-10.1); CREATININE 1.7 mg/dL (0.7-1.3); GFR 41.9; PHOSPHORUS 4.9 mg/dL (2.6-4.7); POTASSIUM 3.3 mmol/L (3.5-5.1)
[2019-03-23] MEDS ORDERED: METOCLOPRAMIDE HCL 10 MG/2 ML VIAL. IV PRN (10:30)
--- NOTE | 2019-03-23 10:30 | PDOC ---
PROGRESS NOTES Chief Complaint Chief Complaint ARDS Acute respiratory failure secondary to congestive heart failure,ARDS Hypernatremia secondary to severe dehydration . High residuals on tube feedings no evidence of obstructive pattern on x ray done 03/05/2019 Bilateral general scrotal swelling and tenderness. Dm2 obesity, extreme, morbid hx RLE BKA RLE stump with chronic wound. left foot nail onychomycosis Acute renal failure ATN chronic venous insuff left lower leg Bilateral lower lobe consolidation concerning for multifocal pneumonia Right renal hypodensity measuring 2.5 cm Anasarca. bilateral external iliac lymphadenopathy Trace tricuspid regurgitation. Estimated PAP 33-38 mmHg. Diastolic CHF History of Present Illness History of Present Illness On 3 sedations, fentanyl, propofol, Versed High residuals tube feeds anywhere between 300-500 mL on erythromycin base High PEEP pressures 15 with FiO2 40% Lasix down to 80 once a day-was getting 3 times a day-overdiuresis and? Good UO otherwise, NOT hypotensive with high PEEP Plan: updated family at bedside regarding LTAC etc. 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 HEENT: Pupils equal, ETT. OGT LUNGS: Diminished HEART: S1, S2. regular ABDOMEN: Obese, distended, decreased bowel sounds, no grimace or guarding to palpation GENITOURINARY: [place] - less scrotal edema but still present EXTREMITIES: Generalized anasarca. RLE stump with chronic wound. No erythema/ fluctuance/warmth. no cyanosis SKIN: Warm to touch. HEEL GUMMER: Unresponsive/sedated on vent RUE-PICC (03/09) clean General: Other (SEDATED ON VENT) Heart: Regular rate, Normal S1, Normal S2, No murmurs, Gallops Lungs: Crackles, Other (decrease bs) Abdomen: Normal bowel sounds Extremities: Other (1+ EDEMA) Skin: Other (scale, lower leg ) Labs LABS Laboratory Tests Test 03/22/19 11:08 03/22/19 12:19 03/22/19 13:15 03/22/19 13:26 Glucose (Fingerstick) 165 mg/dL (70-99) 136 mg/dL (70-99) 125 mg/dL (70-99) White Blood Count 13.5 x10^3/uL (4.0-11.0) Red Blood Count 3.70 x10^6/uL (4.30-5.70) Hemoglobin 11.0 g/dL (13.0-17.5) Hematocrit 34.6 % (39.0-53.0) Mean Corpuscular Volume 94 fL (79-100) Mean Corpuscular Hemoglobin 30 pg (25-35) Mean Corpuscular Hemoglobin Concent 32 g/dL (31-37) Red Cell Distribution Width 14.1 % (11.5-14.5) Platelet Count 370 x10^3/uL (140-400) Sodium Level 150 mmol/L (136-145) Potassium Level 3.2 mmol/L (3.5-5.1) Chloride Level 109 mmol/L (98-107) Carbon Dioxide Level 34 mmol/L (21-32) Anion Gap 7 (6-14) Blood Urea Nitrogen 86 mg/dL (8-26) Creatinine 1.7 mg/dL (0.7-1.3) Estimated GFR (Cockcroft-Gault) 41.9 Glucose Level 143 mg/dL (70-99) Calcium Level 8.3 mg/dL (8.5-10.1) Phosphorus Level 4.6 mg/dL (2.6-4.7) Magnesium Level 2.3 mg/dL (1.8-2.4) Test 03/22/19 14:33 03/22/19 15:38 03/22/19 16:48 03/22/19 17:52 Glucose (Fingerstick) 118 mg/dL (70-99) 162 mg/dL (70-99) 138 mg/dL (70-99) 153 mg/dL (70-99) Test 03/22/19 19:07 03/22/19 19:58 03/22/19 21:06 4/21/19 23:21 Glucose (Fingerstick) 142 mg/dL (70-99) 141 mg/dL (70-99) 155 mg/dL (70-99) 150 mg/dL (70-99) Test 03/23/19 01:22 03/23/19 03:28 03/23/19 04:33 03/23/19 05:23 Glucose (Fingerstick) 143 mg/dL (70-99) 129 mg/dL (70-99) 126 mg/dL (70-99) 120 mg/dL (70-99) Test 03/23/19 06:19 03/23/19 07:30 03/23/19 07:48 03/23/19 08:30 Glucose (Fingerstick) 131 mg/dL (70-99) 140 mg/dL (70-99) O2 Saturation 94 % (92-99) Arterial Blood pH 7.44 (7.35-7.45) Arterial Blood pCO2 at Patient Temp 49 mmHg (35-46) Arterial Blood pO2 at Patient Temp 70 mmHg (75-108) Arterial Blood HCO3 33 mmol/L (21-28) Arterial Blood Base Excess 7 mmol/L (-3-3) FiO2 40 White Blood Count 11.4 x10^3/uL (4.0-11.0) Red Blood Count 3.81 x10^6/uL (4.30-5.70) Hemoglobin 11.5 g/dL (13.0-17.5) Hematocrit 35.6 % (39.0-53.0) Mean Corpuscular Volume 93 fL (79-100) Mean Corpuscular Hemoglobin 30 pg (25-35) Mean Corpuscular Hemoglobin Concent 32 g/dL (31-37) Red Cell Distribution Width 14.5 % (11.5-14.5) Platelet Count 313 x10^3/uL (140-400) Sodium Level 150 mmol/L (136-145) Potassium Level 3.3 mmol/L (3.5-5.1) Chloride Level 107 mmol/L (98-107) Carbon Dioxide Level 32 mmol/L (21-32) Anion Gap 11 (6-14) Blood Urea Nitrogen 103 mg/dL (8-26) Creatinine 1.7 mg/dL (0.7-1.3) Estimated GFR (Cockcroft-Gault) 41.9 Glucose Level 165 mg/dL (70-99) Calcium Level 8.2 mg/dL (8.5-10.1) Phosphorus Level 4.9 mg/dL (2.6-4.7) Albumin 2.1 g/dL (3.4-5.0) Test 03/23/19 08:57 03/23/19 09:59 Glucose (Fingerstick) 167 mg/dL (70-99) 153 mg/dL (70-99) Review of Systems Review of Systems Intubated sedated Assessment and Plan Assessmemt and Plan Problems Medical Problems: (1) Acute renal failure Status: Acute (2) Edema Status: Acute (3) Shortness of breath Status: Acute Comment Review of Relevant I have reviewed the following items pascual (where applicable) has been applied. Labs Laboratory Tests Test 03/21/19 11:27 03/21/19 12:35 03/21/19 13:35 03/21/19 14:50 Glucose (Fingerstick) 444 mg/dL (70-99) 457 mg/dL (70-99) 436 mg/dL (70-99) 402 mg/dL (70-99) Test 03/21/19 15:52 03/21/19 16:55 03/21/19 17:58 03/21/19 19:02 Glucose (Fingerstick) 377 mg/dL (70-99) 367 mg/dL (70-99) 303 mg/dL (70-99) 320 mg/dL (70-99) Test 03/21/19 19:58 03/21/19 21:02 03/21/19 21:59 03/21/19 23:02 Glucose (Fingerstick) 292 mg/dL (70-99) 269 mg/dL (70-99) 214 mg/dL (70-99) 260 mg/dL (70-99) Test 03/21/19 23:57 03/22/19 00:53 03/22/19 01:59 03/22/19 02:58 Glucose (Fingerstick) 255 mg/dL (70-99) 252 mg/dL (70-99) 220 mg/dL (70-99) 215 mg/dL (70-99) Test 03/22/19 03:52 03/22/19 04:54 03/22/19 05:53 03/22/19 07:05 Glucose (Fingerstick) 185 mg/dL (70-99) 174 mg/dL (70-99) 156 mg/dL (70-99) 160 mg/dL (70-99) Test 03/22/19 08:20 03/22/19 09:04 03/22/19 10:05 03/22/19 11:08 O2 Saturation 96 % (92-99) Arterial Blood pH 7.45 (7.35-7.45) Arterial Blood pCO2 at Patient Temp 52 mmHg (35-46) Arterial Blood pO2 at Patient Temp 86 mmHg (75-108) Arterial Blood HCO3 35 mmol/L (21-28) Arterial Blood Base Excess 10 mmol/L (-3-3) FiO2 65 Glucose (Fingerstick) 190 mg/dL (70-99) 161 mg/dL (70-99) 165 mg/dL (70-99) Test 03/22/19 12:19 03/22/19 13:15 03/22/19 13:26 03/22/19 14:33 Glucose (Fingerstick) 136 mg/dL (70-99) 125 mg/dL (70-99) 118 mg/dL (70-99) White Blood Count 13.5 x10^3/uL (4.0-11.0) Red Blood Count 3.70 x10^6/uL (4.30-5.70) Hemoglobin 11.0 g/dL (13.0-17.5) Hematocrit 34.6 % (39.0-53.0) Mean Corpuscular Volume 94 fL (79-100) Mean Corpuscular Hemoglobin 30 pg (25-35) Mean Corpuscular Hemoglobin Concent 32 g/dL (31-37) Red Cell Distribution Width 14.1 % (11.5-14.5) Platelet Count 370 x10^3/uL (140-400) Sodium Level 150 mmol/L (136-145) Potassium Level 3.2 mmol/L (3.5-5.1) Chloride Level 109 mmol/L (98-107) Carbon Dioxide Level 34 mmol/L (21-32) Anion Gap 7 (6-14) Blood Urea Nitrogen 86 mg/dL (8-26) Creatinine 1.7 mg/dL (0.7-1.3) Estimated GFR (Cockcroft-Gault) 41.9 Glucose Level 143 mg/dL (70-99) Calcium Level 8.3 mg/dL (8.5-10.1) Phosphorus Level 4.6 mg/dL (2.6-4.7) Magnesium Level 2.3 mg/dL (1.8-2.4) Test 03/22/19 15:38 03/22/19 16:48 03/22/19 17:52 03/22/19 19:07 Glucose (Fingerstick) 162 mg/dL (70-99) 138 mg/dL (70-99) 153 mg/dL (70-99) 142 mg/dL (70-99) Test 03/22/19 19:58 03/22/19 21:06 03/22/19 23:21 03/23/19 01:22 Glucose (Fingerstick) 141 mg/dL (70-99) 155 mg/dL (70-99) 150 mg/dL (70-99) 143 mg/dL (70-99) Test 03/23/19 03:28 03/23/19 04:33 03/23/19 05:23 03/23/19 06:19 Glucose (Fingerstick) 129 mg/dL (70-99) 126 mg/dL (70-99) 120 mg/dL (70-99) 131 mg/dL (70-99) Test 03/23/19 07:30 03/23/19 07:48 03/23/19 08:30 03/23/19 08:57 O2 Saturation 94 % (92-99) Arterial Blood pH 7.44 (7.35-7.45) Arterial Blood pCO2 at Patient Temp 49 mmHg (35-46) Arterial Blood pO2 at Patient Temp 70 mmHg (75-108) Arterial Blood HCO3 33 mmol/L (21-28) Arterial Blood Base Excess 7 mmol/L (-3-3) FiO2 40 Glucose (Fingerstick) 140 mg/dL (70-99) 167 mg/dL (70-99) White Blood Count 11.4 x10^3/uL (4.0-11.0) Red Blood Count 3.81 x10^6/uL (4.30-5.70) Hemoglobin 11.5 g/dL (13.0-17.5) Hematocrit 35.6 % (39.0-53.0) Mean Corpuscular Volume 93 fL (79-100) Mean Corpuscular Hemoglobin 30 pg (25-35) Mean Corpuscular Hemoglobin Concent 32 g/dL (31-37) Red Cell Distribution Width 14.5 % (11.5-14.5) Platelet Count 313 x10^3/uL (140-400) Sodium Level 150 mmol/L (136-145) Potassium Level 3.3 mmol/L (3.5-5.1) Chloride Level 107 mmol/L (98-107) Carbon Dioxide Level 32 mmol/L (21-32) Anion Gap 11 (6-14) Blood Urea Nitrogen 103 mg/dL (8-26) Creatinine 1.7 mg/dL (0.7-1.3) Estimated GFR (Cockcroft-Gault) 41.9 Glucose Level 165 mg/dL (70-99) Calcium Level 8.2 mg/dL (8.5-10.1) Phosphorus Level 4.9 mg/dL (2.6-4.7) Albumin 2.1 g/dL (3.4-5.0) Test 03/23/19 09:59 Glucose (Fingerstick) 153 mg/dL (70-99) Laboratory Tests Test 03/22/19 11:08 03/22/19 12:19 03/22/19 13:15 03/22/19 13:26 Glucose (Fingerstick) 165 mg/dL (70-99) 136 mg/dL (70-99) 125 mg/dL (70-99) White Blood Count 13.5 x10^3/uL (4.0-11.0) Red Blood Count 3.70 x10^6/uL (4.30-5.70) Hemoglobin 11.0 g/dL (13.0-17.5) Hematocrit 34.6 % (39.0-53.0) Mean Corpuscular Volume 94 fL (79-100) Mean Corpuscular Hemoglobin 30 pg (25-35) Mean Corpuscular Hemoglobin Concent 32 g/dL (31-37) Red Cell Distribution Width 14.1 % (11.5-14.5) Platelet Count 370 x10^3/uL (140-400) Sodium Level 150 mmol/L (136-145) Potassium Level 3.2 mmol/L (3.5-5.1) Chloride Level 109 mmol/L (98-107) Carbon Dioxide Level 34 mmol/L (21-32) Anion Gap 7 (6-14) Blood Urea Nitrogen 86 mg/dL (8-26) Creatinine 1.7 mg/dL (0.7-1.3) Estimated GFR (Cockcroft-Gault) 41.9 Glucose Level 143 mg/dL (70-99) Calcium Level 8.3 mg/dL (8.5-10.1) Phosphorus Level 4.6 mg/dL (2.6-4.7) Magnesium Level 2.3 mg/dL (1.8-2.4) Test 03/22/19 14:33 03/22/19 15:38 03/22/19 16:48 03/22/19 17:52 Glucose (Fingerstick) 118 mg/dL (70-99) 162 mg/dL (70-99) 138 mg/dL (70-99) 153 mg/dL (70-99) Test 03/22/19 19:07 03/22/19 19:58 03/22/19 21:06 03/22/19 23:21 Glucose (Fingerstick) 142 mg/dL (70-99) 141 mg/dL (70-99) 155 mg/dL (70-99) 150 mg/dL (70-99) Test 03/23/19 01:22 03/23/19 03:28 03/23/19 04:33 03/23/19 05:23 Glucose (Fingerstick) 143 mg/dL (70-99) 129 mg/dL (70-99) 126 mg/dL (70-99) 120 mg/dL (70-99) Test 03/23/19 06:19 03/23/19 07:30 03/23/19 07:48 03/23/19 08:30 Glucose (Fingerstick) 131 mg/dL (70-99) 140 mg/dL (70-99) O2 Saturation 94 % (92-99) Arterial Blood pH 7.44 (7.35-7.45) Arterial Blood pCO2 at Patient Temp 49 mmHg (35-46) Arterial Blood pO2 at Patient Temp 70 mmHg (75-108) Arterial Blood HCO3 33 mmol/L (21-28) Arterial Blood Base Excess 7 mmol/L (-3-3) FiO2 40 White Blood Count 11.4 x10^3/uL (4.0-11.0) Red Blood Count 3.81 x10^6/uL (4.30-5.70) Hemoglobin 11.5 g/dL (13.0-17.5) Hematocrit 35.6 % (39.0-53.0) Mean Corpuscular Volume 93 fL (79-100) Mean Corpuscular Hemoglobin 30 pg (25-35) Mean Corpuscular Hemoglobin Concent 32 g/dL (31-37) Red Cell Distribution Width 14.5 % (11.5-14.5) Platelet Count 313 x10^3/uL (140-400) Sodium Level 150 mmol/L (136-145) Potassium Level 3.3 mmol/L (3.5-5.1) Chloride Level 107 mmol/L (98-107) Carbon Dioxide Level 32 mmol/L (21-32) Anion Gap 11 (6-14) Blood Urea Nitrogen 103 mg/dL (8-26) Creatinine 1.7 mg/dL (0.7-1.3) Estimated GFR (Cockcroft-Gault) 41.9 Glucose Level 165 mg/dL (70-99) Calcium Level 8.2 mg/dL (8.5-10.1) Phosphorus Level 4.9 mg/dL (2.6-4.7) Albumin 2.1 g/dL (3.4-5.0) Test 03/23/19 08:57 03/23/19 09:59 Glucose (Fingerstick) 167 mg/dL (70-99) 153 mg/dL (70-99) Microbiology 03/05/19 Blood Culture - Final, Complete NO GROWTH AFTER 5 DAYS 03/08/19 - Final, Complete 03/08/19 - Final, Complete 03/08/19 - Final, Complete 03/08/19 Gram Stain Evaluation - Final, Complete 03/08/19 Sputum Culture - Final, Complete 03/08/19 Sputum Result 1 - Final, Complete 03/02/19 Urine Culture - Final, Complete 03/02/19 Urine Culture Result 1 (LUCIO) - Final, Complete 03/09/19 Aerobic Culture - Final, Complete 03/09/19 Aerobic Culture Result 1 (LUCIO) - Final, Complete 03/09/19 Gram Stain - Final, Complete 03/09/19 Gram Stain Result 1 (LUCIO) - Final, Complete 03/09/19 Gram Stain Result 2 (LUCIO) - Final, Complete Medications Current Medications Ondansetron HCl (Zofran) 4 mg PRN Q8HRS PRN IV NAUSEA/VOMITING; Start 02/27/19 at 16:45; Stop 02/28/19 at 16:44; Status DC Morphine Sulfate (Morphine Sulfate) 2 mg PRN Q2HR PRN IV PAIN; Start 02/27/19 at 16:45; Stop 02/28/19 at 16:44; Status DC Acetaminophen (Tylenol) 650 mg PRN Q4HRS PRN PO FEVER Last administered on 02/27at 21:06; Start 02/27/19 at 16:45; Stop 02/28/19 at 16:44; Status DC Dextrose (Dextrose 50%-Water Syringe) 12.5 gm PRN Q15MIN PRN IV SEE COMMENTS; Start 02/27/19 at 16:45; Stop 03/10/19 at 13:48; Status DC Heparin Sodium (Porcine) (Heparin Sodium) 5,000 unit Q8HRS SQ Last administered on 03/23/19at 05:13; Start 02/27/19 at 17:00 Lorazepam (Ativan) 1 mg PRN Q8HRS PRN IV ANXIETY / AGITATION Last administered on 03/08/19at 03:37; Start 02/28/19 at 02:45 Etomidate (Amidate) 20 mg STK-MED ONCE IV ; Start 02/28/19 at 06:59; Stop at 07:00; Status DC Rocuronium Caspian (Zemuron) 50 mg STK-MED ONCE .ROUTE ; Start 02/28/19 at 07:00 ; Stop 02/28/19 at 09:42; Status DC Dopamine HCl/ Dextrose 250 ml @ 12.266 mls/ hr CONT PRN IV SEE I/O RECORD Last administered on 02/28/19at 08:06; Start 02/28/19 at 07:15; Stop 03/17/19 at 15:50; Status DC Fentanyl Citrate 30 ml @ 0 mls/hr CONT PRN IV SEE PROTOCOL; Start 02/28/19 at 07:15; Stop 02/28/19 at 07:59; Status DC Propofol 100 ml @ 0 mls/hr CONT PRN IV SEE PROTOCOL; Start 02/28/19 at 07:15; Stop 02/28/19 at 07:59; Status DC Fentanyl Citrate (Fentanyl 2ml Vial) 25 mcg PRN Q1HR PRN IV SEE COMMENTS; Start 02/28/19 at 07:15; Stop 02/28/19 at 07:59; Status DC Fentanyl Citrate (Fentanyl 2ml Vial) 50 mcg PRN Q1HR PRN IV SEE COMMENTS; Start 02/28/19 at 07:15; Stop 02/28/19 at 07:59; Status DC Midazolam HCl 100 ml @ 0 mls/hr CONT PRN IV SEE PROTOCOL Last administered on at 19:52; Start 02/28/19 at 07:15 Sodium Chloride 1,000 ml @ 1,000 mls/hr Q1H IV Last administered on 02/28/19at 07:32; Start 02/28/19 at 07:32; Stop 02/28/19 at 10:09; Status DC Fentanyl Citrate (Fentanyl 2ml Vial) 25 mcg PRN Q30MIN PRN IV see comments; Start 02/28/19 at 07:45; Stop 02/28/19 at 09:42; Status DC Lorazepam (Ativan) 1 mg PRN Q30MIN PRN IV SEDATION; Start 02/28/19 at 07:45; Stop 02/28/19 at 09:42; Status DC Fentanyl Citrate 30 ml @ 2.5 mls/hr CONT PRN PRN IV SEE I/O RECORD Last administered on 03/05/19at 03:44; Start 02/28/19 at 07:45; Stop 03/05/19 at 04:40; Status DC Propofol 100 ml @ 0 mls/hr CONT PRN IV SEE I/O RECORD Last administered on 03/23at 03:31; Start 02/28/19 at 07:45 Vecuronium Caspian (Norcuron Bolus) 10 mg PRN Q30MIN PRN IV SHIVERING; Start at 07:45; Stop 02/28/19 at 09:42; Status DC Meperidine HCl (Demerol) 12.5 mg PRN Q30MIN PRN IV SHIVERING; Start 02/28/19 at 07:45; Stop 02/28/19 at 09:42; Status DC Multi-Ingred Cream/Lotion/Oil/ Oint (Artificial Tears Eye Ointment) 1 jennifer PRN Q6HRS PRN OU 0.5 INCH FOR DRY EYE; Start 02/28/19 at 07:45; Stop 02/28/19 at 09 :42; Status DC Famotidine (Pepcid Vial) 20 mg BID IVP Last administered on 02/28/19at 11:03; Start 02/28/19 at 09:00; Stop 02/28/19 at 14:25; Status DC Aspirin (Aspirin) 300 mg DAILY KS ; Start 02/28/19 at 09:00; Stop 02/28/19 at 09 :42; Status DC Sodium Chloride (Normal Saline Flush) 3 ml QSHIFT PRN IV AFTER MEDS AND BLOOD DRAWS; Start 02/28/19 at 07:45 Acetaminophen (Tylenol) 650 mg Q6HRS NG ; Start 02/28/19 at 12:00; Stop at 12:00; Status DC Acetaminophen (Tylenol Supp) 650 mg PRN Q6HRS PRN [place] MILD PAIN / TEMP; Start at 07:45; Stop 03/01/19 at 07:45; Status DC Acetaminophen (Tylenol) 650 mg PRN Q6HRS PRN NG MILD PAIN / TEMP; Start at 07:45; Stop 03/01/19 at 07:45; Status DC Info (Icu Electrolyte Protocol) 1 ea DAILY PRN MC PER PROTOCOL; Start 03/02/19 at 07:45; Stop 03/02/19 at 07:45; Status DC Furosemide (Lasix) 60 mg 1X ONCE IVP Last administered on 02/28/19at 08:30; Start 02/28/19 at 08:30; Stop 02/28/19 at 08:31; Status DC Ceftriaxone Sodium (Rocephin) 1 gm Q24H IVP Last administered on 02/28/19at 11: 03; Start 02/28/19 at 11:00; Stop 02/28/19 at 11:18; Status DC Calcium Chloride 1000 mg/Dextrose 60 ml @ 120 mls/hr 1X ONCE IV Last administered on 02/28/19at 11:03; Start 02/28/19 at 10:30; Stop 02/28/19 at 10:59 ; Status DC Meropenem 500 mg/ Sodium Chloride 50 ml @ 100 mls/hr Q8HRS IV Last administered on 03/03/19at 06:24; Start 02/28/19 at 14:00; Stop 03/03/19 at 07:04; Status DC Linezolid/Dextrose 300 ml @ 300 mls/hr Q12HR IV Last administered on 03/03/19at 20:00; Start 02/28/19 at 11:30; Stop 03/04/19 at 08:55; Status DC Micafungin Sodium 100 mg/Dextrose 100 ml @ 100 mls/hr Q24H IV Last administered on 03/04/19at 15:53; Start 02/28/19 at 12:00; Stop 03/05/19 at 06:47; Status DC Furosemide (Lasix) 40 mg [id number] IVP Last administered on 03/02/19at 14:06; Start 02/28/19 at 14:00; Stop 03/02/19 at 17:02; Status DC Famotidine (Pepcid Vial) 20 mg QHS IVP Last administered on 03/01/19at 21:24; Start 02/28/19 at 21:00; Stop 03/02/19 at 10:07; Status DC Albuterol/ Ipratropium (Duoneb) 3 ml RTQID NEB Last administered on 03/23/19at 07:30; Start 02/28/19 at 16:00 Haloperidol Lactate (Haldol Inj) 5 mg PRN Q6HRS PRN IVP AGITATION 2ND CHOICE Last administered on 03/09/19at 14:07; Start 02/28/19 at 15:15 Vecuronium Caspian (Norcuron Bolus) 8 mg PRN Q4HRS PRN IV MUSCLE SPASMS Last administered on 03/12/19at 23:48; Start 02/28/19 at 15:15 Perflutren Protein Type A Microsphe (Optison) 0.66 mg PRN 1X PRN IV SEE COMMENTS; Start 03/01/19 at 10:00; Stop 03/02/19 at 09:59; Status DC Digoxin (Lanoxin) 125 mcg 1X STAT IV ; Start 03/01/19 at 15:34; Stop 03/01/19 at 16:00; Status DC Sodium Chloride 500 ml @ 500 mls/hr 1X ONCE IV Last administered on at 18:46; Start 03/01/19 at 18:45; Stop 03/01/19 at 19:44; Status DC Famotidine (Pepcid Vial) 20 mg Q12HR IVP Last administered on 03/23/19at 08:14; Start 03/02/19 at 21:00 Furosemide (Lasix) 40 mg DAILY IVP Last administered on 03/04/19 09:52; Start 03/03/19 at 09:00; Stop 03/04/19 at 12:13; Status DC Acetaminophen (Tylenol Supp) 650 mg PRN Q6HRS PRN [place] MILD PAIN / TEMP Last administered on 03/03/19 17:39; Start 03/02/19 at 17:15 Meropenem 500 mg/ Sodium Chloride 50 ml @ 100 mls/hr Q6HRS IV Last administered on 03/05/19 05:33; Start 03/03/19 at 12:00; Stop 03/05/19 at 06:47; Status DC Albumin Human 100 ml @ 100 mls/hr 1X ONCE IV Last administered on 03/03/19 08 :52; Start 03/03/19 at 08:30; Stop 03/03/19 at 09:29; Status DC Atropine Sulfate (ATROPINE 0.5mg SYRINGE) 2 mg STK-MED ONCE .ROUTE ; Start 02/27 at 16:21; Stop 03/03/19 at 16:22; Status DC Dopamine HCl/ Dextrose (DOPamine 400MG/ 250ML PREMIX) 400 mg STK-MED ONCE IV ; Start 02/27/19 at 16:21; Stop 03/03/19 at 16:22; Status DC Furosemide (Lasix) 40 mg 1X ONCE IVP Last administered on 03/03/19at 18:46; Start 03/03/19 at 18:45; Stop 03/03/19 at 18:46; Status DC Lorazepam 100 mg/ Sodium Chloride 100 ml @ 0 mls/hr CONT PRN IV SEE PROTOCOL Last administered on 03/03/19at 22:18; Start 03/03/19 at 22:00; Stop 03/17/19 at 15 :39; Status DC Acetaminophen (Tylenol) 650 mg PRN Q6HRS PRN PEG MILD PAIN / TEMP Last administered on 03/10/19 20:48; Start 03/04/19 at 11:45 Furosemide (Lasix) 40 mg [id number] IVP Last administered on 03/06/19 08:38; Start 03/04/19 at 14:00; Stop 03/06/19 at 13:30; Status DC Fentanyl Citrate 30 ml @ 0 mls/hr CONT PRN IV SEE PROTOCOL Last administered on 03/23/19 09:46; Start 03/05/19 at 04:45 Cefepime HCl (Maxipime) 2 gm Q8HRS IVP Last administered on 03/10/19 05:43; Start 03/05/19 at 06:45; Stop 03/10/19 at 08:29; Status DC Metronidazole 100 ml @ 100 mls/hr Q8HRS IV Last administered on 03/10/19 05:45 ; Start 03/05/19 at 06:45; Stop 03/10/19 at 08:29; Status DC Linezolid/Dextrose 300 ml @ 300 mls/hr Q12HR IV Last administered on 03/05/19 21:24; Start 03/05/19 at 09:00; Stop 03/06/19 at 06:42; Status DC Metoclopramide HCl (Reglan Vial) 10 mg QIDACHS IV Last administered on 20:43; Start 03/05/19 at 11:30; Stop 03/07/19 at 07:37; Status DC Insulin Glargine (Lantus) 12 units BID SQ Last administered on 03/09/19 09:29; Start 03/05/19 at 09:00; Stop 03/09/19 at 17:11; Status DC Digoxin (Lanoxin) 500 mcg 1X ONCE IV Last administered on 03/06/19 00:48; Start 03/06/19 at 00:45; Stop 03/06/19 at 00:46; Status DC Metoprolol Tartrate (Lopressor Vial) 5 mg 1X ONCE IVP Last administered on 03/06 00:53; Start 03/06/19 at 00:45; Stop 03/06/19 at 00:46; Status DC Sodium Chloride 500 ml @ 500 mls/hr 1X ONCE IV Last administered on 03/06/19 00:49; Start 03/06/19 at 00:45; Stop 03/06/19 at 01:44; Status DC Nystatin (Mycostatin) 1 jennifer BID TP Last administered on 03/23/19 08:14; Start 03/06/19 at 09:00 Sodium Cl/Sod Bicarb/Potass Cl/ PEG (Golytely) 2,000 ml 1X ONCE PO Last administered on 03/06/19 09:33; Start 03/06/19 at 08:00; Stop 03/06/19 at 08:01; Status DC Furosemide (Lasix) 40 mg DAILY08 IVP Last administered on 03/09/19 09:27; Start 03/07/19 at 08:00; Stop 03/09/19 at 12:45; Status DC Metoprolol Tartrate (Lopressor Vial) 10 mg 1X ONCE IVP Last administered on 16:08; Start 03/06/19 at 15:15; Stop 03/06/19 at 15:16; Status DC Metoprolol Tartrate (Lopressor Vial) 5 mg Q6HRS IVP Last administered on 17:03; Start 03/06/19 at 18:00; Stop 03/07/19 at 18:27; Status DC Aspirin (Children'S Aspirin) 81 mg 1X ONCE PO Last administered on 03/06/19 18 :18; Start 03/06/19 at 17:00; Stop 03/06/19 at 17:01; Status DC Aspirin (Children'S Aspirin) 81 mg [id number] PO Last administered on at 08:13; Start 03/07/19 at 08:00 Labetalol HCl (Normodyne Iv Push) 20 mg PRN Q2HR PRN IVP HYPERTENSION, SEE COMMENTS Last administered on 03/06/19 21:29; Start 03/06/19 at 17:15 Digoxin (Lanoxin) 250 mcg 1X ONCE IV Last administered on 03/06/19 22:00; Start 03/06/19 at 22:00; Stop 03/06/19 at 22:01; Status DC Diltiazem HCl 125 mg/Dextrose 125 ml @ 5 mls/hr CONT PRN IV SEE I/O RECORD Last administered on 4/11/19at 08:20; Start 03/06/19 at 23:00; Stop 03/12/19 at 11:03; Status DC Metoclopramide HCl (Reglan Vial) 10 mg Q6HRS IV ; Start 03/07/19 at 08:00; Stop 03/08/19 at 07:51; Status DC Metoprolol Tartrate (Lopressor Vial) 5 mg Q6HRS IVP Last administered on at 05:12; Start 03/08/19 at 12:00 Furosemide (Lasix) 40 mg 1X ONCE IVP Last administered on 03/08/19at 21:21; Start 03/08/19 at 21:00; Stop 03/08/19 at 21:01; Status DC Furosemide (Lasix) 20 mg DAILY08 IVP ; Start 03/10/19 at 08:00; Stop 03/10/19 at 08:00; Status DC Furosemide (Lasix) 20 mg DAILY08 IVP Last administered on 03/14/19at 07:41; Start 03/10/19 at 08:00; Stop 03/15/19 at 07:32; Status DC Insulin Glargine (Lantus) 16 units BID SQ Last administered on 03/12/19at 00:09 ; Start 03/09/19 at 21:00; Stop 03/12/19 at 07:18; Status DC Insulin Human Lispro (HumaLOG) 0-9 UNITS Q6HRS SQ Last administered on at 05:45; Start 03/09/19 at 18:00; Stop 03/12/19 at 07:18; Status DC Dextrose (Dextrose 50%-Water Syringe) 12.5 gm PRN Q15MIN PRN IV SEE COMMENTS; Start 03/09/19 at 17:15; Stop 03/21/19 at 10:07; Status DC Cefepime HCl (Maxipime) 2 gm Q12HR IVP Last administered on 03/21/19at 08:26; Start 03/10/19 at 21:00; Stop 03/21/19 at 12:48; Status DC Insulin Human Lispro (HumaLOG) 15 units 1X ONCE SQ Last administered on at 00:14; Start 03/11/19 at 00:00; Stop 03/11/19 at 00:01; Status DC Insulin Glargine (Lantus) 20 units BID SQ Last administered on 03/17/19at 08:32 ; Start 03/12/19 at 09:00; Stop 03/17/19 at 10:46; Status DC Insulin Human Lispro (HumaLOG) 0-9 UNITS Q6HRS SQ Last administered on at 06:35; Start 03/12/19 at 12:00; Stop 03/21/19 at 10:00; Status DC Diltiazem HCl (Cardizem) 30 mg Q6HRS PO Last administered on 03/23/19at 05:12; Start 03/12/19 at 12:00 Furosemide (Lasix) 20 mg 1X ONCE IVP Last administered on 03/13/19at 11:04; Start 03/13/19 at 10:30; Stop 03/13/19 at 10:31; Status DC Furosemide (Lasix) 20 mg 1X ONCE IVP Last administered on 03/14/19at 07:40; Start 03/14/19 at 07:15; Stop 03/14/19 at 14:05; Status DC Furosemide (Lasix) 40 mg Q8HRS IVP Last administered on 03/17/19at 05:49; Start 03/14/19 at 22:00; Stop 03/17/19 at 10:58; Status DC Albuterol Sulfate (Ventolin Neb Soln) 2.5 mg 1X ONCE NEB Last administered on 03/16/19at 04:00; Start 03/16/19 at 04:00; Stop 03/16/19 at 04:01; Status DC Methylprednisolone Sodium Succinate (SOLU-Medrol 40MG VIAL) 80 mg 1X ONCE IV Last administered on 03/16/19at 04:17; Start 03/16/19 at 04:30; Stop 03/16/19 at 04:31; Status DC Furosemide (Lasix) 20 mg 1X ONCE IVP Last administered on 03/16/19at 04:17; Start 03/16/19 at 04:30; Stop 03/16/19 at 04:31; Status DC Insulin Glargine (Lantus) 25 units BID SQ Last administered on 03/21/19at 08:55 ; Start 03/17/19 at 21:00; Stop 03/21/19 at 10:00; Status DC Insulin Human Lispro (HumaLOG) 10 units Q6HRS SQ ; Start 03/17/19 at 12:00; Stop 03/17/19 at 13:32; Status DC Furosemide (Lasix) 40 mg QD IVP Last administered on 03/18/19at 05:55; Start at 06:00; Stop 03/18/19 at 10:54; Status DC Insulin Human Lispro (HumaLOG) 3 units Q6HRS SQ Last administered on 03/19/19at 06:12; Start 03/17/19 at 18:00; Stop 03/19/19 at 08:28; Status DC Azithromycin 250 mg/Sodium Chloride 250 ml @ 250 mls/hr Q24H IV Last administered on 03/23/19at 08:13; Start 03/18/19 at 08:00 Alteplase, Recombinant (Cathflo For Central Catheter Clearance) 1 mg 1X ONCE INT CAT Last administered on 03/18/19at 09:21; Start 03/18/19 at 07:30; Stop at 07:31; Status DC Alteplase, Recombinant (Cathflo For Central Catheter Clearance) 1 mg 1X ONCE INT CAT Last administered on 03/18/19at 11:04; Start 03/18/19 at 07:30; Stop at 07:31; Status DC Alteplase, Recombinant (Cathflo For Central Catheter Clearance) 1 mg 1X ONCE INT CAT Last administered on 03/18/19at 13:26; Start 03/18/19 at 07:30; Stop at 07:31; Status DC Furosemide (Lasix) 60 mg 1X ONCE IVP Last administered on 03/18/19at 11:04; Start 03/18/19 at 10:54; Stop 03/18/19 at 10:55; Status DC Furosemide (Lasix) 40 mg Q8HRS IVP ; Start 03/18/19 at 14:00; Stop 03/18/19 at 17:53; Status DC Digoxin (Lanoxin) 250 mcg 1X ONCE IV Last administered on 03/18/19at 15:48; Start 03/18/19 at 15:30; Stop 03/18/19 at 15:33; Status DC Furosemide (Lasix) 40 mg Q8HRS IVP Last administered on 03/20/19 05:42; Start 03/18/19 at 20:00; Stop 03/20/19 at 08:48; Status DC Digoxin (Lanoxin) 500 mcg 1X ONCE IV Last administered on 03/18/19at 19:35; Start 03/18/19 at 20:00; Stop 03/18/19 at 20:01; Status DC Insulin Human Lispro (HumaLOG) 6 units Q6HRS SQ Last administered on 03/20/19at 05:45; Start 03/19/19 at 12:00; Stop 03/20/19 at 08:48; Status DC Furosemide (Lasix) 80 mg Q8HRS IVP Last administered on 03/22/19at 12:43; Start 03/20/19 at 14:00; Stop 03/22/19 at 17:00; Status DC Insulin Human Lispro (HumaLOG) 9 units Q6HRS SQ Last administered on 03/21/19at 06:36; Start 03/20/19 at 12:00; Stop 03/21/19 at 10:00; Status DC Methylprednisolone Sodium Succinate (SOLU-Medrol 125MG VIAL) 80 mg Q8HRS IV Last administered on 03/23/19at 05:11; Start 03/20/19 at 11:00 Alteplase, Recombinant (Cathflo For Central Catheter Clearance) 1 mg 1X ONCE INT CAT Last administered on 03/20/19at 20:23; Start 03/20/19 at 20:00; Stop at 20:09; Status DC Alteplase, Recombinant (Cathflo For Central Catheter Clearance) 1 mg 1X ONCE INT CAT Last administered on 03/20/19at 20:23; Start 03/20/19 at 20:00; Stop at 20:09; Status DC Alteplase, Recombinant (Cathflo For Central Catheter Clearance) 1 mg 1X ONCE INT CAT Last administered on 03/20/19at 20:23; Start 03/20/19 at 20:00; Stop at 20:09; Status DC Insulin Human Regular 150 unit/ Sodium Chloride 151.5 ml @ 0 mls/hr CONT PRN IV SEE I/O RECORD Last administered on 03/23/19at 09:45; Start 03/21/19 at 10:00 Dextrose (Dextrose 50%-Water Syringe) 12.5 gm PRN Q15MIN PRN IV LOW BLOOD SUGAR ; Start 03/21/19 at 10:00 Furosemide (Lasix) 80 mg DAILY06 IVP Last administered on 03/23/19at 05:11; Start 03/23/19 at 06:00 Potassium Chloride (KCl Oral Soln) 40 meq 1X ONCE PEG Last administered on at 17:14; Start 03/22/19 at 17:30; Stop 03/22/19 at 17:31; Status DC Active Scripts Active Reported Proair Hfa Inhaler (Albuterol Sulfate) 8.5 Gm Hfa.aer.ad 1 Puff INH PRN Q6HRS PRN Lantus Solostar (Insulin Glargine,Hum.rec.anlog) 100 Unit/1 Ml Insuln.pen 20 Unit SQ QHS Humalog (Insulin Lispro) 100 Unit/1 Ml Cartridge 6 Unit SQ TIDWMEALS Doxazosin Mesylate 2 Mg Tablet 2 Mg PO DAILY Omeprazole 40 Mg Capsule.dr 40 Mg PO DAILY Amlodipine Besylate 10 Mg Tablet 10 Mg PO DAILY Atorvastatin Calcium 20 Mg Tablet 20 Mg PO DAILY Atenolol 50 Mg Tablet 50 Mg PO DAILY Losartan Potassium 100 Mg Tablet 100 Mg PO DAILY Aspirin 81 Mg Tab.chew 81 Mg PO DAILY Glyburide 5 Mg Tablet 1 Tab PO BID Vitals/I & O Vital Sign - Last 24 Hours 03/22/19 03/22/19 03/22/19 03/22/19 11:00 12:00 12:00 12:13 Pulse 96 94 Resp B/P (MAP) 118/64 (82) 119/70 (86) Pulse Ox 96 96 97 O2 Delivery Ventilator Mechanical Ventilator Ventilator Ventilator 03/22/19 03/22/19 03/22/19 03/22/19 12:39 12:40 13:00 13:52 Pulse 102 102 96 B/P (MAP) 120/77 120/77 124/69 (87) Pulse Ox 96 97 O2 Delivery Ventilator O2 Flow Rate 96.0 03/22/19 03/22/19 03/22/19 03/22/19 14:00 15:00 16:00 16:00 Pulse 96 96 96 Resp B/P (MAP) 120/69 (86) 104/61 (75) 98/69 (79) Pulse Ox 96 96 94 O2 Delivery Ventilator Ventilator Ventilator Mechanical Ventilator 03/22/19 03/22/19 03/22/19 03/22/19 16:01 17:00 17:14 17:15 Pulse 96 113 113 Resp 21 B/P (MAP) 99/69 (79) 100/57 100/57 Pulse Ox 97 94 O2 Delivery Ventilator Ventilator 03/22/19 03/22/19 03/22/19 03/22/19 18:09 18:28 18:56 20:00 Pulse 103 100 Resp B/P (MAP) 96/57 (70) 105/55 (72) Pulse Ox 94 94 95 O2 Delivery Ventilator Ventilator Mechanical Ventilator O2 Flow Rate 96.0 03/22/19 03/22/19 03/22/19 03/22/19 20:00 20:34 21:00 22:00 Temp 98.8 98.8 Pulse 100 82 85 Resp B/P (MAP) 117/58 (77) 114/57 (76) 161/70 (100) Pulse Ox 95 96 96 93 O2 Delivery Ventilator Ventilator Ventilator Ventilator 03/22/19 03/22/19 03/22/19 03/22/19 23:00 23:47 23:47 23:58 Pulse 85 81 85 Resp B/P (MAP) 156/70 (98) 156/72 156/72 Pulse Ox 92 O2 Delivery Ventilator Mechanical Ventilator 03/22/19 03/23/19 03/23/19 03/23/19 23:59 00:04 00:37 01:00 Temp 98.7 98.7 Pulse 90 72 Resp B/P (MAP) 165/74 (104) 164/68 (100) Pulse Ox 93 93 93 94 O2 Delivery Ventilator Ventilator Ventilator Ventilator O2 Flow Rate 40.0 03/23/19 03/23/19 03/23/19 03/23/19 01:07 02:00 02:20 03:00 Pulse 68 73 Resp B/P (MAP) 173/71 (105) 173/73 (106) Pulse Ox 94 93 94 O2 Delivery Ventilator Ventilator Ventilator Ventilator 03/23/19 03/23/19 03/23/19 03/23/19 04:00 04:00 04:31 05:00 Temp 98.4 98.4 Pulse 70 87 Resp B/P (MAP) 178/76 (110) 183/60 (101) Pulse Ox 94 93 96 O2 Delivery Mechanical Ventilator Ventilator Ventilator Ventilator 03/23/19 03/23/19 03/23/19 03/23/19 05:07 05:12 05:12 05:37 Pulse 65 65 Resp B/P (MAP) 183/77 185/77 Pulse Ox 93 96 O2 Delivery Ventilator O2 Flow Rate 40.0 40.0 03/23/19 03/23/19 03/23/19 03/23/19 05:54 06:00 07:30 08:00 Pulse 64 Resp 21 B/P (MAP) 187/77 (113) Pulse Ox 95 96 93 O2 Delivery Ventilator Ventilator Ventilator Mechanical Ventilator 03/23/19 09:46 Pulse Ox 93 O2 Flow Rate 40.0 Intake and Output 03/22/19 03/22/19 03/23/19 15:00 23:00 07:00 Intake Total 1750 ml 1941 ml 3084.97 ml Output Total 1350 ml 740 ml 540 ml Balance 400 ml 1201 ml 2544.97 ml ADITYA HUSTON MD Mar 23, 2019 10:30
[2019-03-23] MEDS: IV DEXTROSE 5% 1,000 ML IV SCH (11:15)
--- NOTE | 2019-03-23 11:15 | PDOC ---
Renal-Progress Notes Subjective Notes Notes REMAINS INTUBATED History of Present Illness Hx of present illness SAME Vitals Vitals Vital Signs Date Time Temp Pulse Resp B/P (MAP) Pulse Ox O2 Delivery O2 Flow Rate FiO2 03/23/19 10:55 64 171/77 03/23/19 10:26 93 Ventilator 40.0 03/23/19 06:00 21 03/23/19 04:00 98.4 98.4 Weight Weight [ ] Stability Assess. Stability Assess.: other (intubated ) I.O. Intake and Output Intake and Output 03/23/19 06:59 Intake Total 6775.97 ml Output Total 2680 ml Balance 4095.97 ml Intake Oral 0 ml IV Total 1345.97 ml Tube Feeding 4830 ml Other 600 ml Output Urine Total 2680 ml Labs Labs Laboratory Tests Test 03/22/19 12:19 03/22/19 13:15 03/22/19 13:26 03/22/19 14:33 Glucose (Fingerstick) 136 mg/dL (70-99) 125 mg/dL (70-99) 118 mg/dL (70-99) White Blood Count 13.5 x10^3/uL (4.0-11.0) Red Blood Count 3.70 x10^6/uL (4.30-5.70) Hemoglobin 11.0 g/dL (13.0-17.5) Hematocrit 34.6 % (39.0-53.0) Mean Corpuscular Volume 94 fL (79-100) Mean Corpuscular Hemoglobin 30 pg (25-35) Mean Corpuscular Hemoglobin Concent 32 g/dL (31-37) Red Cell Distribution Width 14.1 % (11.5-14.5) Platelet Count 370 x10^3/uL (140-400) Sodium Level 150 mmol/L (136-145) Potassium Level 3.2 mmol/L (3.5-5.1) Chloride Level 109 mmol/L (98-107) Carbon Dioxide Level 34 mmol/L (21-32) Anion Gap 7 (6-14) Blood Urea Nitrogen 86 mg/dL (8-26) Creatinine 1.7 mg/dL (0.7-1.3) Estimated GFR (Cockcroft-Gault) 41.9 Glucose Level 143 mg/dL (70-99) Calcium Level 8.3 mg/dL (8.5-10.1) Phosphorus Level 4.6 mg/dL (2.6-4.7) Magnesium Level 2.3 mg/dL (1.8-2.4) Test 03/22/19 15:38 03/22/19 16:48 03/22/19 17:52 03/22/19 19:07 Glucose (Fingerstick) 162 mg/dL (70-99) 138 mg/dL (70-99) 153 mg/dL (70-99) 142 mg/dL (70-99) Test 03/22/19 19:58 03/22/19 21:06 03/22/19 23:21 03/23/19 01:22 Glucose (Fingerstick) 141 mg/dL (70-99) 155 mg/dL (70-99) 150 mg/dL (70-99) 143 mg/dL (70-99) Test 03/23/19 03:28 03/23/19 04:33 03/23/19 05:23 03/23/19 06:19 Glucose (Fingerstick) 129 mg/dL (70-99) 126 mg/dL (70-99) 120 mg/dL (70-99) 131 mg/dL (70-99) Test 03/23/19 07:30 03/23/19 07:48 03/23/19 08:30 03/23/19 08:57 O2 Saturation 94 % (92-99) Arterial Blood pH 7.44 (7.35-7.45) Arterial Blood pCO2 at Patient Temp 49 mmHg (35-46) Arterial Blood pO2 at Patient Temp 70 mmHg (75-108) Arterial Blood HCO3 33 mmol/L (21-28) Arterial Blood Base Excess 7 mmol/L (-3-3) FiO2 40 Glucose (Fingerstick) 140 mg/dL (70-99) 167 mg/dL (70-99) White Blood Count 11.4 x10^3/uL (4.0-11.0) Red Blood Count 3.81 x10^6/uL (4.30-5.70) Hemoglobin 11.5 g/dL (13.0-17.5) Hematocrit 35.6 % (39.0-53.0) Mean Corpuscular Volume 93 fL (79-100) Mean Corpuscular Hemoglobin 30 pg (25-35) Mean Corpuscular Hemoglobin Concent 32 g/dL (31-37) Red Cell Distribution Width 14.5 % (11.5-14.5) Platelet Count 313 x10^3/uL (140-400) Sodium Level 150 mmol/L (136-145) Potassium Level 3.3 mmol/L (3.5-5.1) Chloride Level 107 mmol/L (98-107) Carbon Dioxide Level 32 mmol/L (21-32) Anion Gap 11 (6-14) Blood Urea Nitrogen 103 mg/dL (8-26) Creatinine 1.7 mg/dL (0.7-1.3) Estimated GFR (Cockcroft-Gault) 41.9 Glucose Level 165 mg/dL (70-99) Calcium Level 8.2 mg/dL (8.5-10.1) Phosphorus Level 4.9 mg/dL (2.6-4.7) Albumin 2.1 g/dL (3.4-5.0) Test 03/23/19 09:59 Glucose (Fingerstick) 153 mg/dL (70-99) Micro Micro Microbiology 03/05/19 Blood Culture - Final, Complete NO GROWTH AFTER 5 DAYS 03/08/19 - Final, Complete 03/08/19 - Final, Complete 03/08/19 - Final, Complete 03/08/19 Gram Stain Evaluation - Final, Complete 03/08/19 Sputum Culture - Final, Complete 03/08/19 Sputum Result 1 - Final, Complete 03/02/19 Urine Culture - Final, Complete 03/02/19 Urine Culture Result 1 (LUCIO) - Final, Complete 03/09/19 Aerobic Culture - Final, Complete 03/09/19 Aerobic Culture Result 1 (LUCIO) - Final, Complete 03/09/19 Gram Stain - Final, Complete 03/09/19 Gram Stain Result 1 (LUCIO) - Final, Complete 03/09/19 Gram Stain Result 2 (LUCIO) - Final, Complete Review of Systems Constitutional: yes: unresponsive, other (INTUBATED AND SEDATED) Physical Exam General Appearance: other (SEDATED) Skin: warm Respiratory: decreased breath sounds Heart: S1S2 Abdomen: soft, N/T, bowel sounds present Genitourinary: bladder flat Extremities: pulses present Neurology: other (sedated) Assessment Assessment IMP LEONARD-BETTER WITH CR DOWN TO 1.7 ANASARCA-PERSISTS BUT BETTER HYPERNATREMIA-NA OF 150 ACUTE HYPERCARBIC RESP FAILURE-FIO2 DOWN TO 40% NOW SCROTAL EDEMA DUE TO ANASARCA-BETTER RIGHT RENAL MASS PROB PNEUMONIA PROB SEPSIS PROB RIGHT SIDED CHF WITH DIASTOLIC DYSFUNCTION MORBID OBESITY MALNUTRITION PLAN ANTIBIOTICS VENT SUPPORT CONT LASIX EVAL RENAL MASS LATER CONT TF AND DECREASE FREE WATER DUE TO INCREASING RESIDUALS WILL START D5W FOR NOW WILL FOLLOW DEEPTHI MOYA MD Mar 23, 2019 11:15
--- NOTE | 2019-03-23 11:17 | PDOC ---
PULMONARY PROGRESS NOTES Subjective Patient remains on vent overnight, with Fi02 of 40% and PEEP of 15. Pt. is sedated currently. Minimal secretions reports by nursing, nursing also reports placing TF on hold currently 2/2 residuals. Vitals Laboratory Tests Test 03/22/19 12:19 03/22/19 13:15 03/22/19 13:26 03/22/19 14:33 Glucose (Fingerstick) 136 mg/dL 125 mg/dL 118 mg/dL White Blood Count 13.5 x10^3/uL Red Blood Count 3.70 x10^6/uL Hemoglobin 11.0 g/dL Hematocrit 34.6 % Mean Corpuscular Volume 94 fL Mean Corpuscular Hemoglobin 30 pg Mean Corpuscular Hemoglobin Concent 32 g/dL Red Cell Distribution Width 14.1 % Platelet Count 370 x10^3/uL Sodium Level 150 mmol/L Potassium Level 3.2 mmol/L Chloride Level 109 mmol/L Carbon Dioxide Level 34 mmol/L Anion Gap 7 Blood Urea Nitrogen 86 mg/dL Creatinine 1.7 mg/dL Estimated GFR (Cockcroft-Gault) 41.9 Glucose Level 143 mg/dL Calcium Level 8.3 mg/dL Phosphorus Level 4.6 mg/dL Magnesium Level 2.3 mg/dL Test 03/22/19 15:38 03/22/19 16:48 03/22/19 17:52 03/22/19 19:07 Glucose (Fingerstick) 162 mg/dL 138 mg/dL 153 mg/dL 142 mg/dL Test 03/22/19 19:58 03/22/19 21:06 03/22/19 23:21 03/23/19 01:22 Glucose (Fingerstick) 141 mg/dL 155 mg/dL 150 mg/dL 143 mg/dL Test 03/23/19 03:28 03/23/19 04:33 03/23/19 05:23 03/23/19 06:19 Glucose (Fingerstick) 129 mg/dL 126 mg/dL 120 mg/dL 131 mg/dL Test 03/23/19 07:30 03/23/19 07:48 03/23/19 08:30 03/23/19 08:57 O2 Saturation 94 % Arterial Blood pH 7.44 Arterial Blood pCO2 at Patient Temp 49 mmHg Arterial Blood pO2 at Patient Temp 70 mmHg Arterial Blood HCO3 33 mmol/L Arterial Blood Base Excess 7 mmol/L FiO2 40 Glucose (Fingerstick) 140 mg/dL 167 mg/dL White Blood Count 11.4 x10^3/uL Red Blood Count 3.81 x10^6/uL Hemoglobin 11.5 g/dL Hematocrit 35.6 % Mean Corpuscular Volume 93 fL Mean Corpuscular Hemoglobin 30 pg Mean Corpuscular Hemoglobin Concent 32 g/dL Red Cell Distribution Width 14.5 % Platelet Count 313 x10^3/uL Sodium Level 150 mmol/L Potassium Level 3.3 mmol/L Chloride Level 107 mmol/L Carbon Dioxide Level 32 mmol/L Anion Gap 11 Blood Urea Nitrogen 103 mg/dL Creatinine 1.7 mg/dL Estimated GFR (Cockcroft-Gault) 41.9 Glucose Level 165 mg/dL Calcium Level 8.2 mg/dL Phosphorus Level 4.9 mg/dL Albumin 2.1 g/dL Test 03/23/19 09:59 Glucose (Fingerstick) 153 mg/dL Current Medications Medications (Trade) Dose Ordered Sig/Lula Route PRN Reason Start Time Stop Time Status Last Admin Dose Admin Ondansetron HCl (Zofran) 4 mg PRN Q8HRS PRN IV NAUSEA/VOMITING 02/27/19 16:45 02/28/19 16:44 DC Morphine Sulfate (Morphine Sulfate) 2 mg PRN Q2HR PRN IV PAIN 02/27/19 16:45 02/28/19 16:44 DC Acetaminophen (Tylenol) 650 mg PRN Q4HRS PRN PO FEVER 02/27/19 16:45 02/28/19 16:44 DC 02/27/19 21:06 Dextrose (Dextrose 50%-Water Syringe) 12.5 gm PRN Q15MIN PRN IV SEE COMMENTS 02/27/19 16:45 03/10/19 13:48 DC Heparin Sodium (Porcine) (Heparin Sodium) 5,000 unit Q8HRS SQ 02/27/19 17:00 03/23/19 05:13 Lorazepam (Ativan) 1 mg PRN Q8HRS PRN IV ANXIETY / AGITATION 02/28/19 02:45 03/08/19 03:37 Etomidate (Amidate) 20 mg STK-MED ONCE IV 02/28/19 06:59 02/28/19 07:00 DC Rocuronium Edwards (Zemuron) 50 mg STK-MED ONCE .ROUTE 02/28/19 07:00 02/28/19 09:42 DC Dopamine HCl/ Dextrose 250 ml @ 12.266 mls/ hr CONT PRN IV SEE I/O RECORD 02/28/19 07:15 03/17/19 15:50 DC 02/28/19 08:06 Fentanyl Citrate 30 ml @ 0 mls/hr CONT PRN IV SEE PROTOCOL 02/28/19 07:15 02/28/19 07:59 DC Propofol 100 ml @ 0 mls/hr CONT PRN IV SEE PROTOCOL 02/28/19 07:15 02/28/19 07:59 DC Fentanyl Citrate (Fentanyl 2ml Vial) 25 mcg PRN Q1HR PRN IV SEE COMMENTS 02/28/19 07:15 02/28/19 07:59 DC Fentanyl Citrate (Fentanyl 2ml Vial) 50 mcg PRN Q1HR PRN IV SEE COMMENTS 02/28/19 07:15 02/28/19 07:59 DC Midazolam HCl 100 ml @ 0 mls/hr CONT PRN IV SEE PROTOCOL 02/28/19 07:15 03/22/19 19:52 Sodium Chloride 1,000 ml @ 1,000 mls/hr Q1H IV 02/28/19 07:32 02/28/19 10:09 DC 02/28/19 07:32 Fentanyl Citrate (Fentanyl 2ml Vial) 25 mcg PRN Q30MIN PRN IV see comments 02/28/19 07:45 02/28/19 09:42 DC Lorazepam (Ativan) 1 mg PRN Q30MIN PRN IV SEDATION 02/28/19 07:45 02/28/19 09:42 DC Fentanyl Citrate 30 ml @ 2.5 mls/hr CONT PRN PRN IV SEE I/O RECORD 02/28/19 07:45 03/05/19 04:40 DC 03/05/19 03:44 Propofol 100 ml @ 0 mls/hr CONT PRN IV SEE I/O RECORD 02/28/19 07:45 03/23/19 03:31 Vecuronium Edwards (Norcuron Bolus) 10 mg PRN Q30MIN PRN IV SHIVERING 02/28/19 07:45 02/28/19 09:42 DC Meperidine HCl (Demerol) 12.5 mg PRN Q30MIN PRN IV SHIVERING 02/28/19 07:45 02/28/19 09:42 DC Multi-Ingred Cream/Lotion/Oil/ Oint (Artificial Tears Eye Ointment) 1 jennifer PRN Q6HRS PRN OU 0.5 INCH FOR DRY EYE 02/28/19 07:45 02/28/19 09:42 DC Famotidine (Pepcid Vial) 20 mg BID IVP 02/28/19 09:00 02/28/19 14:25 DC 02/28/19 11:03 Aspirin (Aspirin) 300 mg DAILY MS 02/28/19 09:00 02/28/19 09:42 DC Sodium Chloride (Normal Saline Flush) 3 ml QSHIFT PRN IV AFTER MEDS AND BLOOD DRAWS 02/28/19 07:45 Acetaminophen (Tylenol) 650 mg Q6HRS NG 02/28/19 12:00 02/28/19 12:00 DC Acetaminophen (Tylenol Supp) 650 mg PRN Q6HRS PRN MS MILD PAIN / TEMP 03/01/19 07:45 03/01/19 07:45 DC Acetaminophen (Tylenol) 650 mg PRN Q6HRS PRN NG MILD PAIN / TEMP 03/01/19 07:45 03/01/19 07:45 DC Info (Icu Electrolyte Protocol) 1 ea DAILY PRN MC PER PROTOCOL 03/02/19 07:45 03/02/19 07:45 DC Furosemide (Lasix) 60 mg 1X ONCE IVP 02/28/19 08:30 02/28/19 08:31 DC 02/28/19 08:30 Ceftriaxone Sodium (Rocephin) 1 gm Q24H IVP 02/28/19 11:00 02/28/19 11:18 DC 02/28/19 11:03 Calcium Chloride 1000 mg/Dextrose 60 ml @ 120 mls/hr 1X ONCE IV 02/28/19 10:30 02/28/19 10:59 DC 02/28/19 11:03 Meropenem 500 mg/ Sodium Chloride 50 ml @ 100 mls/hr Q8HRS IV 02/28/19 14:00 03/03/19 07:04 DC 03/03/19 06:24 Linezolid/Dextrose 300 ml @ 300 mls/hr Q12HR IV 02/28/19 11:30 03/04/19 08:55 DC 03/03/19 20:00 Micafungin Sodium 100 mg/Dextrose 100 ml @ 100 mls/hr Q24H IV 02/28/19 12:00 03/05/19 06:47 DC 03/04/19 15:53 Furosemide (Lasix) 40 mg [id number] IVP 02/28/19 14:00 03/02/19 17:02 DC 03/02/19 14:06 Famotidine (Pepcid Vial) 20 mg QHS IVP 02/28/19 21:00 03/02/19 10:07 DC 03/01/19 21:24 Albuterol/ Ipratropium (Duoneb) 3 ml RTQID NEB 02/28/19 16:00 03/23/19 07:30 Haloperidol Lactate (Haldol Inj) 5 mg PRN Q6HRS PRN IVP AGITATION 2ND CHOICE 02/28/19 15:15 03/09/19 14:07 Vecuronium Edwards (Norcuron Bolus) 8 mg PRN Q4HRS PRN IV MUSCLE SPASMS 02/28/19 15:15 03/12/19 23:48 Perflutren Protein Type A Microsphe (Optison) 0.66 mg PRN 1X PRN IV SEE COMMENTS 03/01/19 10:00 03/02/19 09:59 DC Digoxin (Lanoxin) 125 mcg 1X STAT IV 03/01/19 15:34 03/01/19 16:00 DC Sodium Chloride 500 ml @ 500 mls/hr 1X ONCE IV 03/01/19 18:45 03/01/19 19:44 DC 03/01/19 18:46 Famotidine (Pepcid Vial) 20 mg Q12HR IVP 03/02/19 21:00 03/23/19 08:14 Furosemide (Lasix) 40 mg DAILY IVP 03/03/19 09:00 03/04/19 12:13 DC 03/04/19 09:52 Acetaminophen (Tylenol Supp) 650 mg PRN Q6HRS PRN MS MILD PAIN / TEMP 03/02/19 17:15 03/03/19 17:39 Meropenem 500 mg/ Sodium Chloride 50 ml @ 100 mls/hr Q6HRS IV 03/03/19 12:00 03/05/19 06:47 DC 03/05/19 05:33 Albumin Human 100 ml @ 100 mls/hr 1X ONCE IV 03/03/19 08:30 03/03/19 09:29 DC 03/03/19 08:52 Atropine Sulfate (ATROPINE 0.5mg SYRINGE) 2 mg STK-MED ONCE .ROUTE 02/27/19 16:21 03/03/19 16:22 DC Dopamine HCl/ Dextrose (DOPamine 400MG/ 250ML PREMIX) 400 mg STK-MED ONCE IV 02/27/19 16:21 03/03/19 16:22 DC Furosemide (Lasix) 40 mg 1X ONCE IVP 03/03/19 18:45 03/03/19 18:46 DC 03/03/19 18:46 Lorazepam 100 mg/ Sodium Chloride 100 ml @ 0 mls/hr CONT PRN IV SEE PROTOCOL 03/03/19 22:00 03/17/19 15:39 DC 03/03/19 22:18 Acetaminophen (Tylenol) 650 mg PRN Q6HRS PRN PEG MILD PAIN / TEMP 03/04/19 11:45 03/10/19 20:48 Furosemide (Lasix) 40 mg [id number] IVP 03/04/19 14:00 03/06/19 13:30 DC 03/06/19 08:38 Fentanyl Citrate 30 ml @ 0 mls/hr CONT PRN IV SEE PROTOCOL 03/05/19 04:45 03/23/19 09:46 Cefepime HCl (Maxipime) 2 gm Q8HRS IVP 03/05/19 06:45 03/10/19 08:29 DC 03/10/19 05:43 Metronidazole 100 ml @ 100 mls/hr Q8HRS IV 03/05/19 06:45 03/10/19 08:29 DC 03/10/19 05:45 Linezolid/Dextrose 300 ml @ 300 mls/hr Q12HR IV 03/05/19 09:00 03/06/19 06:42 DC 03/05/19 21:24 Metoclopramide HCl (Reglan Vial) 10 mg QIDACHS IV 03/05/19 11:30 03/07/19 07:37 DC 03/06/19 20:43 Insulin Glargine (Lantus) 12 units BID SQ 03/05/19 09:00 03/09/19 17:11 DC 03/09/19 09:29 Digoxin (Lanoxin) 500 mcg 1X ONCE IV 03/06/19 00:45 03/06/19 00:46 DC 03/06/19 00:48 Metoprolol Tartrate (Lopressor Vial) 5 mg 1X ONCE IVP 03/06/19 00:45 03/06/19 00:46 DC 03/06/19 00:53 Sodium Chloride 500 ml @ 500 mls/hr 1X ONCE IV 03/06/19 00:45 03/06/19 01:44 DC 03/06/19 00:49 Nystatin (Mycostatin) 1 jennifer BID TP 03/06/19 09:00 03/23/19 08:14 Sodium Cl/Sod Bicarb/Potass Cl/ PEG (Golytely) 2,000 ml 1X ONCE PO 03/06/19 08:00 03/06/19 08:01 DC 03/06/19 09:33 Furosemide (Lasix) 40 mg DAILY08 IVP 03/07/19 08:00 03/09/19 12:45 DC 03/09/19 09:27 Metoprolol Tartrate (Lopressor Vial) 10 mg 1X ONCE IVP 03/06/19 15:15 03/06/19 15:16 DC 03/06/19 16:08 Metoprolol Tartrate (Lopressor Vial) 5 mg Q6HRS IVP 03/06/19 18:00 03/07/19 18:27 DC 03/07/19 17:03 Aspirin (Children'S Aspirin) 81 mg 1X ONCE PO 03/06/19 17:00 03/06/19 17:01 DC 03/06/19 18:18 Aspirin (Children'S Aspirin) 81 mg DAILYWBKFT PO 03/07/19 08:00 03/23/19 08:13 Labetalol HCl (Normodyne Iv Push) 20 mg PRN Q2HR PRN IVP HYPERTENSION, SEE COMMENTS 03/06/19 17:15 03/06/19 21:29 Digoxin (Lanoxin) 250 mcg 1X ONCE IV 03/06/19 22:00 03/06/19 22:01 DC 03/06/19 22:00 Diltiazem HCl 125 mg/Dextrose 125 ml @ 5 mls/hr CONT PRN IV SEE I/O RECORD 03/06/19 23:00 03/12/19 11:03 DC 03/12/19 08:20 Metoclopramide HCl (Reglan Vial) 10 mg Q6HRS IV 03/07/19 08:00 03/08/19 07:51 DC Metoprolol Tartrate (Lopressor Vial) 5 mg Q6HRS IVP 03/08/19 12:00 03/23/19 10:55 Furosemide (Lasix) 40 mg 1X ONCE IVP 03/08/19 21:00 03/08/19 21:01 DC 03/08/19 21:21 Furosemide (Lasix) 20 mg DAILY08 IVP 03/10/19 08:00 03/10/19 08:00 DC Furosemide (Lasix) 20 mg DAILY08 IVP 03/10/19 08:00 03/15/19 07:32 DC 03/14/19 07:41 Insulin Glargine (Lantus) 16 units BID SQ 03/09/19 21:00 03/12/19 07:18 DC 03/12/19 00:09 Insulin Human Lispro (HumaLOG) 0-9 UNITS Q6HRS SQ 03/09/19 18:00 03/12/19 07:18 DC 03/12/19 05:45 Dextrose (Dextrose 50%-Water Syringe) 12.5 gm PRN Q15MIN PRN IV SEE COMMENTS 03/09/19 17:15 03/21/19 10:07 DC Cefepime HCl (Maxipime) 2 gm Q12HR IVP 03/10/19 21:00 03/21/19 12:48 DC 03/21/19 08:26 Insulin Human Lispro (HumaLOG) 15 units 1X ONCE SQ 03/11/19 00:00 03/11/19 00:01 DC 03/11/19 00:14 Insulin Glargine (Lantus) 20 units BID SQ 03/12/19 09:00 03/17/19 10:46 DC 03/17/19 08:32 Insulin Human Lispro (HumaLOG) 0-9 UNITS Q6HRS SQ 03/12/19 12:00 03/21/19 10:00 DC 03/21/19 06:35 Diltiazem HCl (Cardizem) 30 mg Q6HRS PO 03/12/19 12:00 03/23/19 10:54 Furosemide (Lasix) 20 mg 1X ONCE IVP 03/13/19 10:30 03/13/19 10:31 DC 03/13/19 11:04 Furosemide (Lasix) 20 mg 1X ONCE IVP 03/14/19 07:15 03/14/19 14:05 DC 03/14/19 07:40 Furosemide (Lasix) 40 mg Q8HRS IVP 03/14/19 22:00 03/17/19 10:58 DC 03/17/19 05:49 Albuterol Sulfate (Ventolin Neb Soln) 2.5 mg 1X ONCE NEB 03/16/19 04:00 03/16/19 04:01 DC 03/16/19 04:00 Methylprednisolone Sodium Succinate (SOLU-Medrol 40MG VIAL) 80 mg 1X ONCE IV 03/16/19 04:30 03/16/19 04:31 DC 03/16/19 04:17 Furosemide (Lasix) 20 mg 1X ONCE IVP 03/16/19 04:30 03/16/19 04:31 DC 03/16/19 04:17 Insulin Glargine (Lantus) 25 units BID SQ 03/17/19 21:00 03/21/19 10:00 DC 03/21/19 08:55 Insulin Human Lispro (HumaLOG) 10 units Q6HRS SQ 03/17/19 12:00 03/17/19 13:32 DC Furosemide (Lasix) 40 mg QD IVP 03/18/19 06:00 03/18/19 10:54 DC 03/18/19 05:55 Insulin Human Lispro (HumaLOG) 3 units Q6HRS SQ 03/17/19 18:00 03/19/19 08:28 DC 03/19/19 06:12 Azithromycin 250 mg/Sodium Chloride 250 ml @ 250 mls/hr Q24H IV 03/18/19 08:00 03/23/19 08:13 Alteplase, Recombinant (Cathflo For Central Catheter Clearance) 1 mg 1X ONCE INT CAT 03/18/19 07:30 03/18/19 07:31 DC 03/18/19 09:21 Alteplase, Recombinant (Cathflo For Central Catheter Clearance) 1 mg 1X ONCE INT CAT 03/18/19 07:30 03/18/19 07:31 DC 03/18/19 11:04 Alteplase, Recombinant (Cathflo For Central Catheter Clearance) 1 mg 1X ONCE INT CAT 03/18/19 07:30 03/18/19 07:31 DC 03/18/19 13:26 Furosemide (Lasix) 60 mg 1X ONCE IVP 03/18/19 10:54 03/18/19 10:55 DC 03/18/19 11:04 Furosemide (Lasix) 40 mg Q8HRS IVP 03/18/19 14:00 03/18/19 17:53 DC Digoxin (Lanoxin) 250 mcg 1X ONCE IV 03/18/19 15:30 03/18/19 15:33 DC 03/18/19 15:48 Furosemide (Lasix) 40 mg Q8HRS IVP 03/18/19 20:00 03/20/19 08:48 DC 03/20/19 05:42 Digoxin (Lanoxin) 500 mcg 1X ONCE IV 03/18/19 20:00 03/18/19 20:01 DC 03/18/19 19:35 Insulin Human Lispro (HumaLOG) 6 units Q6HRS SQ 03/19/19 12:00 03/20/19 08:48 DC 03/20/19 05:45 Furosemide (Lasix) 80 mg Q8HRS IVP 03/20/19 14:00 03/22/19 17:00 DC 03/22/19 12:43 Insulin Human Lispro (HumaLOG) 9 units Q6HRS SQ 03/20/19 12:00 03/21/19 10:00 DC 03/21/19 06:36 Methylprednisolone Sodium Succinate (SOLU-Medrol 125MG VIAL) 80 mg Q8HRS IV 03/20/19 11:00 03/23/19 05:11 Alteplase, Recombinant (Cathflo For Central Catheter Clearance) 1 mg 1X ONCE INT CAT 03/20/19 20:00 03/20/19 20:09 DC 03/20/19 20:23 Alteplase, Recombinant (Cathflo For Central Catheter Clearance) 1 mg 1X ONCE INT CAT 03/20/19 20:00 03/20/19 20:09 DC 03/20/19 20:23 Alteplase, Recombinant (Cathflo For Central Catheter Clearance) 1 mg 1X ONCE INT CAT 03/20/19 20:00 03/20/19 20:09 DC 03/20/19 20:23 Insulin Human Regular 150 unit/ Sodium Chloride 151.5 ml @ 0 mls/hr CONT PRN IV SEE I/O RECORD 03/21/19 10:00 03/23/19 09:45 Dextrose (Dextrose 50%-Water Syringe) 12.5 gm PRN Q15MIN PRN IV LOW BLOOD SUGAR 03/21/19 10:00 Furosemide (Lasix) 80 mg DAILY06 IVP 03/23/19 06:00 03/23/19 05:11 Potassium Chloride (KCl Oral Soln) 40 meq 1X ONCE PEG 03/22/19 17:30 03/22/19 17:31 DC 03/22/19 17:14 Metoclopramide HCl (Reglan Vial) 10 mg PRN Q6HRS PRN IV NAUSEA/VOMITING 03/23/19 10:30 Vital Signs Date Time Temp Pulse Resp B/P (MAP) Pulse Ox O2 Delivery O2 Flow Rate FiO2 03/23/19 10:55 64 171/77 03/23/19 10:26 93 Ventilator 40.0 03/23/19 06:00 21 03/23/19 04:00 98.4 98.4 Comments Pt. is sedated and intubated HEENT: Other (nc at perrl ,orally intubated ) Lungs: Crackles, Other ( decraesed BLL) Cardiovascular: S1, S2 Abdomen: Soft, Non-tender, Other (obesity ) Extremities: Other (venous stasis and edema left, right BKA) Skin: Warm Labs Laboratory Tests Test 03/22/19 12:19 03/22/19 13:15 03/22/19 13:26 03/22/19 14:33 Glucose (Fingerstick) 136 mg/dL 125 mg/dL 118 mg/dL White Blood Count 13.5 x10^3/uL Red Blood Count 3.70 x10^6/uL Hemoglobin 11.0 g/dL Hematocrit 34.6 % Mean Corpuscular Volume 94 fL Mean Corpuscular Hemoglobin 30 pg Mean Corpuscular Hemoglobin Concent 32 g/dL Red Cell Distribution Width 14.1 % Platelet Count 370 x10^3/uL Sodium Level 150 mmol/L Potassium Level 3.2 mmol/L Chloride Level 109 mmol/L Carbon Dioxide Level 34 mmol/L Anion Gap 7 Blood Urea Nitrogen 86 mg/dL Creatinine 1.7 mg/dL Estimated GFR (Cockcroft-Gault) 41.9 Glucose Level 143 mg/dL Calcium Level 8.3 mg/dL Phosphorus Level 4.6 mg/dL Magnesium Level 2.3 mg/dL Test 03/22/19 15:38 03/22/19 16:48 03/22/19 17:52 03/22/19 19:07 Glucose (Fingerstick) 162 mg/dL 138 mg/dL 153 mg/dL 142 mg/dL Test 03/22/19 19:58 03/22/19 21:06 03/22/19 23:21 03/23/19 01:22 Glucose (Fingerstick) 141 mg/dL 155 mg/dL 150 mg/dL 143 mg/dL Test 03/23/19 03:28 03/23/19 04:33 03/23/19 05:23 03/23/19 06:19 Glucose (Fingerstick) 129 mg/dL 126 mg/dL 120 mg/dL 131 mg/dL Test 03/23/19 07:30 03/23/19 07:48 03/23/19 08:30 03/23/19 08:57 O2 Saturation 94 % Arterial Blood pH 7.44 Arterial Blood pCO2 at Patient Temp 49 mmHg Arterial Blood pO2 at Patient Temp 70 mmHg Arterial Blood HCO3 33 mmol/L Arterial Blood Base Excess 7 mmol/L FiO2 40 Glucose (Fingerstick) 140 mg/dL 167 mg/dL White Blood Count 11.4 x10^3/uL Red Blood Count 3.81 x10^6/uL Hemoglobin 11.5 g/dL Hematocrit 35.6 % Mean Corpuscular Volume 93 fL Mean Corpuscular Hemoglobin 30 pg Mean Corpuscular Hemoglobin Concent 32 g/dL Red Cell Distribution Width 14.5 % Platelet Count 313 x10^3/uL Sodium Level 150 mmol/L Potassium Level 3.3 mmol/L Chloride Level 107 mmol/L Carbon Dioxide Level 32 mmol/L Anion Gap 11 Blood Urea Nitrogen 103 mg/dL Creatinine 1.7 mg/dL Estimated GFR (Cockcroft-Gault) 41.9 Glucose Level 165 mg/dL Calcium Level 8.2 mg/dL Phosphorus Level 4.9 mg/dL Albumin 2.1 g/dL Test 03/23/19 09:59 Glucose (Fingerstick) 153 mg/dL Current Medications Medications (Trade) Dose Ordered Sig/Lula Route PRN Reason Start Time Stop Time Status Last Admin Dose Admin Ondansetron HCl (Zofran) 4 mg PRN Q8HRS PRN IV NAUSEA/VOMITING 02/27/19 16:45 02/28/19 16:44 DC Morphine Sulfate (Morphine Sulfate) 2 mg PRN Q2HR PRN IV PAIN 02/27/19 16:45 02/28/19 16:44 DC Acetaminophen (Tylenol) 650 mg PRN Q4HRS PRN PO FEVER 02/27/19 16:45 02/28/19 16:44 DC 02/27/19 21:06 Dextrose (Dextrose 50%-Water Syringe) 12.5 gm PRN Q15MIN PRN IV SEE COMMENTS 02/27/19 16:45 03/10/19 13:48 DC Heparin Sodium (Porcine) (Heparin Sodium) 5,000 unit Q8HRS SQ 02/27/19 17:00 03/23/19 05:13 Lorazepam (Ativan) 1 mg PRN Q8HRS PRN IV ANXIETY / AGITATION 02/28/19 02:45 03/08/19 03:37 Etomidate (Amidate) 20 mg STK-MED ONCE IV 02/28/19 06:59 02/28/19 07:00 DC Rocuronium Edwards (Zemuron) 50 mg STK-MED ONCE .ROUTE 02/28/19 07:00 02/28/19 09:42 DC Dopamine HCl/ Dextrose 250 ml @ 12.266 mls/ hr CONT PRN IV SEE I/O RECORD 02/28/19 07:15 03/17/19 15:50 DC 02/28/19 08:06 Fentanyl Citrate 30 ml @ 0 mls/hr CONT PRN IV SEE PROTOCOL 02/28/19 07:15 02/28/19 07:59 DC Propofol 100 ml @ 0 mls/hr CONT PRN IV SEE PROTOCOL 02/28/19 07:15 02/28/19 07:59 DC Fentanyl Citrate (Fentanyl 2ml Vial) 25 mcg PRN Q1HR PRN IV SEE COMMENTS 02/28/19 07:15 02/28/19 07:59 DC Fentanyl Citrate (Fentanyl 2ml Vial) 50 mcg PRN Q1HR PRN IV SEE COMMENTS 02/28/19 07:15 02/28/19 07:59 DC Midazolam HCl 100 ml @ 0 mls/hr CONT PRN IV SEE PROTOCOL 02/28/19 07:15 03/22/19 19:52 Sodium Chloride 1,000 ml @ 1,000 mls/hr Q1H IV 02/28/19 07:32 02/28/19 10:09 DC 02/28/19 07:32 Fentanyl Citrate (Fentanyl 2ml Vial) 25 mcg PRN Q30MIN PRN IV see comments 02/28/19 07:45 02/28/19 09:42 DC Lorazepam (Ativan) 1 mg PRN Q30MIN PRN IV SEDATION 02/28/19 07:45 02/28/19 09:42 DC Fentanyl Citrate 30 ml @ 2.5 mls/hr CONT PRN PRN IV SEE I/O RECORD 02/28/19 07:45 03/05/19 04:40 DC 03/05/19 03:44 Propofol 100 ml @ 0 mls/hr CONT PRN IV SEE I/O RECORD 02/28/19 07:45 03/23/19 03:31 Vecuronium Edwards (Norcuron Bolus) 10 mg PRN Q30MIN PRN IV SHIVERING 02/28/19 07:45 02/28/19 09:42 DC Meperidine HCl (Demerol) 12.5 mg PRN Q30MIN PRN IV SHIVERING 02/28/19 07:45 02/28/19 09:42 DC Multi-Ingred Cream/Lotion/Oil/ Oint (Artificial Tears Eye Ointment) 1 jennifer PRN Q6HRS PRN OU 0.5 INCH FOR DRY EYE 02/28/19 07:45 02/28/19 09:42 DC Famotidine (Pepcid Vial) 20 mg BID IVP 02/28/19 09:00 02/28/19 14:25 DC 02/28/19 11:03 Aspirin (Aspirin) 300 mg DAILY MS 02/28/19 09:00 02/28/19 09:42 DC Sodium Chloride (Normal Saline Flush) 3 ml QSHIFT PRN IV AFTER MEDS AND BLOOD DRAWS 02/28/19 07:45 Acetaminophen (Tylenol) 650 mg Q6HRS NG 02/28/19 12:00 02/28/19 12:00 DC Acetaminophen (Tylenol Supp) 650 mg PRN Q6HRS PRN MS MILD PAIN / TEMP 03/01/19 07:45 03/01/19 07:45 DC Acetaminophen (Tylenol) 650 mg PRN Q6HRS PRN NG MILD PAIN / TEMP 03/01/19 07:45 03/01/19 07:45 DC Info (Icu Electrolyte Protocol) 1 ea DAILY PRN MC PER PROTOCOL 03/02/19 07:45 03/02/19 07:45 DC Furosemide (Lasix) 60 mg 1X ONCE IVP 02/28/19 08:30 02/28/19 08:31 DC 02/28/19 08:30 Ceftriaxone Sodium (Rocephin) 1 gm Q24H IVP 02/28/19 11:00 02/28/19 11:18 DC 02/28/19 11:03 Calcium Chloride 1000 mg/Dextrose 60 ml @ 120 mls/hr 1X ONCE IV 02/28/19 10:30 02/28/19 10:59 DC 02/28/19 11:03 Meropenem 500 mg/ Sodium Chloride 50 ml @ 100 mls/hr Q8HRS IV 02/28/19 14:00 03/03/19 07:04 DC 03/03/19 06:24 Linezolid/Dextrose 300 ml @ 300 mls/hr Q12HR IV 02/28/19 11:30 03/04/19 08:55 DC 03/03/19 20:00 Micafungin Sodium 100 mg/Dextrose 100 ml @ 100 mls/hr Q24H IV 02/28/19 12:00 03/05/19 06:47 DC 03/04/19 15:53 Furosemide (Lasix) 40 mg [id number] IVP 02/28/19 14:00 03/02/19 17:02 DC 03/02/19 14:06 Famotidine (Pepcid Vial) 20 mg QHS IVP 02/28/19 21:00 03/02/19 10:07 DC 03/01/19 21:24 Albuterol/ Ipratropium (Duoneb) 3 ml RTQID NEB 02/28/19 16:00 03/23/19 07:30 Haloperidol Lactate (Haldol Inj) 5 mg PRN Q6HRS PRN IVP AGITATION 2ND CHOICE 02/28/19 15:15 03/09/19 14:07 Vecuronium Edwards (Norcuron Bolus) 8 mg PRN Q4HRS PRN IV MUSCLE SPASMS 02/28/19 15:15 03/12/19 23:48 Perflutren Protein Type A Microsphe (Optison) 0.66 mg PRN 1X PRN IV SEE COMMENTS 03/01/19 10:00 03/02/19 09:59 DC Digoxin (Lanoxin) 125 mcg 1X STAT IV 03/01/19 15:34 03/01/19 16:00 DC Sodium Chloride 500 ml @ 500 mls/hr 1X ONCE IV 03/01/19 18:45 03/01/19 19:44 DC 03/01/19 18:46 Famotidine (Pepcid Vial) 20 mg Q12HR IVP 03/02/19 21:00 03/23/19 08:14 Furosemide (Lasix) 40 mg DAILY IVP 03/03/19 09:00 03/04/19 12:13 DC 03/04/19 09:52 Acetaminophen (Tylenol Supp) 650 mg PRN Q6HRS PRN MS MILD PAIN / TEMP 03/02/19 17:15 03/03/19 17:39 Meropenem 500 mg/ Sodium Chloride 50 ml @ 100 mls/hr Q6HRS IV 03/03/19 12:00 03/05/19 06:47 DC 03/05/19 05:33 Albumin Human 100 ml @ 100 mls/hr 1X ONCE IV 03/03/19 08:30 03/03/19 09:29 DC 03/03/19 08:52 Atropine Sulfate (ATROPINE 0.5mg SYRINGE) 2 mg STK-MED ONCE .ROUTE 02/27/19 16:21 03/03/19 16:22 DC Dopamine HCl/ Dextrose (DOPamine 400MG/ 250ML PREMIX) 400 mg STK-MED ONCE IV 02/27/19 16:21 03/03/19 16:22 DC Furosemide (Lasix) 40 mg 1X ONCE IVP 03/03/19 18:45 03/03/19 18:46 DC 03/03/19 18:46 Lorazepam 100 mg/ Sodium Chloride 100 ml @ 0 mls/hr CONT PRN IV SEE PROTOCOL 03/03/19 22:00 03/17/19 15:39 DC 03/03/19 22:18 Acetaminophen (Tylenol) 650 mg PRN Q6HRS PRN PEG MILD PAIN / TEMP 03/04/19 11:45 03/10/19 20:48 Furosemide (Lasix) 40 mg [id number] IVP 03/04/19 14:00 03/06/19 13:30 DC 03/06/19 08:38 Fentanyl Citrate 30 ml @ 0 mls/hr CONT PRN IV SEE PROTOCOL 03/05/19 04:45 03/23/19 09:46 Cefepime HCl (Maxipime) 2 gm Q8HRS IVP 03/05/19 06:45 03/10/19 08:29 DC 03/10/19 05:43 Metronidazole 100 ml @ 100 mls/hr Q8HRS IV 03/05/19 06:45 03/10/19 08:29 DC 03/10/19 05:45 Linezolid/Dextrose 300 ml @ 300 mls/hr Q12HR IV 03/05/19 09:00 03/06/19 06:42 DC 03/05/19 21:24 Metoclopramide HCl (Reglan Vial) 10 mg QIDACHS IV 03/05/19 11:30 03/07/19 07:37 DC 03/06/19 20:43 Insulin Glargine (Lantus) 12 units BID SQ 03/05/19 09:00 03/09/19 17:11 DC 03/09/19 09:29 Digoxin (Lanoxin) 500 mcg 1X ONCE IV 03/06/19 00:45 03/06/19 00:46 DC 03/06/19 00:48 Metoprolol Tartrate (Lopressor Vial) 5 mg 1X ONCE IVP 03/06/19 00:45 03/06/19 00:46 DC 03/06/19 00:53 Sodium Chloride 500 ml @ 500 mls/hr 1X ONCE IV 03/06/19 00:45 03/06/19 01:44 DC 03/06/19 00:49 Nystatin (Mycostatin) 1 jennifer BID TP 03/06/19 09:00 03/23/19 08:14 Sodium Cl/Sod Bicarb/Potass Cl/ PEG (Golytely) 2,000 ml 1X ONCE PO 03/06/19 08:00 03/06/19 08:01 DC 03/06/19 09:33 Furosemide (Lasix) 40 mg DAILY08 IVP 03/07/19 08:00 03/09/19 12:45 DC 03/09/19 09:27 Metoprolol Tartrate (Lopressor Vial) 10 mg 1X ONCE IVP 03/06/19 15:15 03/06/19 15:16 DC 03/06/19 16:08 Metoprolol Tartrate (Lopressor Vial) 5 mg Q6HRS IVP 03/06/19 18:00 03/07/19 18:27 DC 03/07/19 17:03 Aspirin (Children'S Aspirin) 81 mg 1X ONCE PO 03/06/19 17:00 03/06/19 17:01 DC 03/06/19 18:18 Aspirin (Children'S Aspirin) 81 mg DAILYWBKFT PO 03/07/19 08:00 03/23/19 08:13 Labetalol HCl (Normodyne Iv Push) 20 mg PRN Q2HR PRN IVP HYPERTENSION, SEE COMMENTS 03/06/19 17:15 03/06/19 21:29 Digoxin (Lanoxin) 250 mcg 1X ONCE IV 03/06/19 22:00 03/06/19 22:01 DC 03/06/19 22:00 Diltiazem HCl 125 mg/Dextrose 125 ml @ 5 mls/hr CONT PRN IV SEE I/O RECORD 03/06/19 23:00 03/12/19 11:03 DC 03/12/19 08:20 Metoclopramide HCl (Reglan Vial) 10 mg Q6HRS IV 03/07/19 08:00 03/08/19 07:51 DC Metoprolol Tartrate (Lopressor Vial) 5 mg Q6HRS IVP 03/08/19 12:00 03/23/19 10:55 Furosemide (Lasix) 40 mg 1X ONCE IVP 03/08/19 21:00 03/08/19 21:01 DC 03/08/19 21:21 Furosemide (Lasix) 20 mg DAILY08 IVP 03/10/19 08:00 03/10/19 08:00 DC Furosemide (Lasix) 20 mg DAILY08 IVP 03/10/19 08:00 03/15/19 07:32 DC 03/14/19 07:41 Insulin Glargine (Lantus) 16 units BID SQ 03/09/19 21:00 03/12/19 07:18 DC 03/12/19 00:09 Insulin Human Lispro (HumaLOG) 0-9 UNITS Q6HRS SQ 03/09/19 18:00 03/12/19 07:18 DC 03/12/19 05:45 Dextrose (Dextrose 50%-Water Syringe) 12.5 gm PRN Q15MIN PRN IV SEE COMMENTS 03/09/19 17:15 03/21/19 10:07 DC Cefepime HCl (Maxipime) 2 gm Q12HR IVP 03/10/19 21:00 03/21/19 12:48 DC 03/21/19 08:26 Insulin Human Lispro (HumaLOG) 15 units 1X ONCE SQ 03/11/19 00:00 03/11/19 00:01 DC 03/11/19 00:14 Insulin Glargine (Lantus) 20 units BID SQ 03/12/19 09:00 03/17/19 10:46 DC 03/17/19 08:32 Insulin Human Lispro (HumaLOG) 0-9 UNITS Q6HRS SQ 03/12/19 12:00 03/21/19 10:00 DC 03/21/19 06:35 Diltiazem HCl (Cardizem) 30 mg Q6HRS PO 03/12/19 12:00 03/23/19 10:54 Furosemide (Lasix) 20 mg 1X ONCE IVP 03/13/19 10:30 03/13/19 10:31 DC 03/13/19 11:04 Furosemide (Lasix) 20 mg 1X ONCE IVP 03/14/19 07:15 03/14/19 14:05 DC 03/14/19 07:40 Furosemide (Lasix) 40 mg Q8HRS IVP 03/14/19 22:00 03/17/19 10:58 DC 03/17/19 05:49 Albuterol Sulfate (Ventolin Neb Soln) 2.5 mg 1X ONCE NEB 03/16/19 04:00 03/16/19 04:01 DC 03/16/19 04:00 Methylprednisolone Sodium Succinate (SOLU-Medrol 40MG VIAL) 80 mg 1X ONCE IV 03/16/19 04:30 03/16/19 04:31 DC 03/16/19 04:17 Furosemide (Lasix) 20 mg 1X ONCE IVP 03/16/19 04:30 03/16/19 04:31 DC 03/16/19 04:17 Insulin Glargine (Lantus) 25 units BID SQ 03/17/19 21:00 03/21/19 10:00 DC 03/21/19 08:55 Insulin Human Lispro (HumaLOG) 10 units Q6HRS SQ 03/17/19 12:00 03/17/19 13:32 DC Furosemide (Lasix) 40 mg QD IVP 03/18/19 06:00 03/18/19 10:54 DC 03/18/19 05:55 Insulin Human Lispro (HumaLOG) 3 units Q6HRS SQ 03/17/19 18:00 03/19/19 08:28 DC 03/19/19 06:12 Azithromycin 250 mg/Sodium Chloride 250 ml @ 250 mls/hr Q24H IV 03/18/19 08:00 03/23/19 08:13 Alteplase, Recombinant (Cathflo For Central Catheter Clearance) 1 mg 1X ONCE INT CAT 03/18/19 07:30 03/18/19 07:31 DC 03/18/19 09:21 Alteplase, Recombinant (Cathflo For Central Catheter Clearance) 1 mg 1X ONCE INT CAT 03/18/19 07:30 03/18/19 07:31 DC 03/18/19 11:04 Alteplase, Recombinant (Cathflo For Central Catheter Clearance) 1 mg 1X ONCE INT CAT 03/18/19 07:30 03/18/19 07:31 DC 03/18/19 13:26 Furosemide (Lasix) 60 mg 1X ONCE IVP 03/18/19 10:54 03/18/19 10:55 DC 03/18/19 11:04 Furosemide (Lasix) 40 mg Q8HRS IVP 03/18/19 14:00 03/18/19 17:53 DC Digoxin (Lanoxin) 250 mcg 1X ONCE IV 03/18/19 15:30 03/18/19 15:33 DC 03/18/19 15:48 Furosemide (Lasix) 40 mg Q8HRS IVP 03/18/19 20:00 03/20/19 08:48 DC 03/20/19 05:42 Digoxin (Lanoxin) 500 mcg 1X ONCE IV 03/18/19 20:00 03/18/19 20:01 DC 03/18/19 19:35 Insulin Human Lispro (HumaLOG) 6 units Q6HRS SQ 03/19/19 12:00 03/20/19 08:48 DC 03/20/19 05:45 Furosemide (Lasix) 80 mg Q8HRS IVP 03/20/19 14:00 03/22/19 17:00 DC 03/22/19 12:43 Insulin Human Lispro (HumaLOG) 9 units Q6HRS SQ 03/20/19 12:00 03/21/19 10:00 DC 03/21/19 06:36 Methylprednisolone Sodium Succinate (SOLU-Medrol 125MG VIAL) 80 mg Q8HRS IV 03/20/19 11:00 03/23/19 05:11 Alteplase, Recombinant (Cathflo For Central Catheter Clearance) 1 mg 1X ONCE INT CAT 03/20/19 20:00 03/20/19 20:09 DC 03/20/19 20:23 Alteplase, Recombinant (Cathflo For Central Catheter Clearance) 1 mg 1X ONCE INT CAT 03/20/19 20:00 03/20/19 20:09 DC 03/20/19 20:23 Alteplase, Recombinant (Cathflo For Central Catheter Clearance) 1 mg 1X ONCE INT CAT 03/20/19 20:00 03/20/19 20:09 DC 03/20/19 20:23 Insulin Human Regular 150 unit/ Sodium Chloride 151.5 ml @ 0 mls/hr CONT PRN IV SEE I/O RECORD 03/21/19 10:00 03/23/19 09:45 Dextrose (Dextrose 50%-Water Syringe) 12.5 gm PRN Q15MIN PRN IV LOW BLOOD SUGAR 03/21/19 10:00 Furosemide (Lasix) 80 mg DAILY06 IVP 03/23/19 06:00 03/23/19 05:11 Potassium Chloride (KCl Oral Soln) 40 meq 1X ONCE PEG 03/22/19 17:30 03/22/19 17:31 DC 03/22/19 17:14 Metoclopramide HCl (Reglan Vial) 10 mg PRN Q6HRS PRN IV NAUSEA/VOMITING 03/23/19 10:30 Laboratory Tests Test 03/21/19 11:27 03/21/19 12:35 03/21/19 13:35 03/21/19 14:50 Glucose (Fingerstick) 444 mg/dL (70-99) 457 mg/dL (70-99) 436 mg/dL (70-99) 402 mg/dL (70-99) Test 03/21/19 15:52 03/21/19 16:55 03/21/19 17:58 03/21/19 19:02 Glucose (Fingerstick) 377 mg/dL (70-99) 367 mg/dL (70-99) 303 mg/dL (70-99) 320 mg/dL (70-99) Test 03/21/19 19:58 03/21/19 21:02 03/21/19 21:59 03/21/19 23:02 Glucose (Fingerstick) 292 mg/dL (70-99) 269 mg/dL (70-99) 214 mg/dL (70-99) 260 mg/dL (70-99) Test 03/21/19 23:57 03/22/19 00:53 03/22/19 01:59 03/22/19 02:58 Glucose (Fingerstick) 255 mg/dL (70-99) 252 mg/dL (70-99) 220 mg/dL (70-99) 215 mg/dL (70-99) Test 03/22/19 03:52 03/22/19 04:54 03/22/19 05:53 03/22/19 07:05 Glucose (Fingerstick) 185 mg/dL (70-99) 174 mg/dL (70-99) 156 mg/dL (70-99) 160 mg/dL (70-99) Test 03/22/19 08:20 03/22/19 09:04 03/22/19 10:05 03/22/19 11:08 O2 Saturation 96 % (92-99) Arterial Blood pH 7.45 (7.35-7.45) Arterial Blood pCO2 at Patient Temp 52 mmHg (35-46) Arterial Blood pO2 at Patient Temp 86 mmHg (75-108) Arterial Blood HCO3 35 mmol/L (21-28) Arterial Blood Base Excess 10 mmol/L (-3-3) FiO2 65 Glucose (Fingerstick) 190 mg/dL (70-99) 161 mg/dL (70-99) 165 mg/dL (70-99) Test 03/22/19 12:19 03/22/19 13:15 03/22/19 13:26 03/22/19 14:33 Glucose (Fingerstick) 136 mg/dL (70-99) 125 mg/dL (70-99) 118 mg/dL (70-99) White Blood Count 13.5 x10^3/uL (4.0-11.0) Red Blood Count 3.70 x10^6/uL (4.30-5.70) Hemoglobin 11.0 g/dL (13.0-17.5) Hematocrit 34.6 % (39.0-53.0) Mean Corpuscular Volume 94 fL (79-100) Mean Corpuscular Hemoglobin 30 pg (25-35) Mean Corpuscular Hemoglobin Concent 32 g/dL (31-37) Red Cell Distribution Width 14.1 % (11.5-14.5) Platelet Count 370 x10^3/uL (140-400) Sodium Level 150 mmol/L (136-145) Potassium Level 3.2 mmol/L (3.5-5.1) Chloride Level 109 mmol/L (98-107) Carbon Dioxide Level 34 mmol/L (21-32) Anion Gap 7 (6-14) Blood Urea Nitrogen 86 mg/dL (8-26) Creatinine 1.7 mg/dL (0.7-1.3) Estimated GFR (Cockcroft-Gault) 41.9 Glucose Level 143 mg/dL (70-99) Calcium Level 8.3 mg/dL (8.5-10.1) Phosphorus Level 4.6 mg/dL (2.6-4.7) Magnesium Level 2.3 mg/dL (1.8-2.4) Test 03/22/19 15:38 03/22/19 16:48 03/22/19 17:52 03/22/19 19:07 Glucose (Fingerstick) 162 mg/dL (70-99) 138 mg/dL (70-99) 153 mg/dL (70-99) 142 mg/dL (70-99) Test 03/22/19 19:58 03/22/19 21:06 03/22/19 23:21 03/23/19 01:22 Glucose (Fingerstick) 141 mg/dL (70-99) 155 mg/dL (70-99) 150 mg/dL (70-99) 143 mg/dL (70-99) Test 03/23/19 03:28 03/23/19 04:33 03/23/19 05:23 03/23/19 06:19 Glucose (Fingerstick) 129 mg/dL (70-99) 126 mg/dL (70-99) 120 mg/dL (70-99) 131 mg/dL (70-99) Test 03/23/19 07:30 03/23/19 07:48 03/23/19 08:30 03/23/19 08:57 O2 Saturation 94 % (92-99) Arterial Blood pH 7.44 (7.35-7.45) Arterial Blood pCO2 at Patient Temp 49 mmHg (35-46) Arterial Blood pO2 at Patient Temp 70 mmHg (75-108) Arterial Blood HCO3 33 mmol/L (21-28) Arterial Blood Base Excess 7 mmol/L (-3-3) FiO2 40 Glucose (Fingerstick) 140 mg/dL (70-99) 167 mg/dL (70-99) White Blood Count 11.4 x10^3/uL (4.0-11.0) Red Blood Count 3.81 x10^6/uL (4.30-5.70) Hemoglobin 11.5 g/dL (13.0-17.5) Hematocrit 35.6 % (39.0-53.0) Mean Corpuscular Volume 93 fL (79-100) Mean Corpuscular Hemoglobin 30 pg (25-35) Mean Corpuscular Hemoglobin Concent 32 g/dL (31-37) Red Cell Distribution Width 14.5 % (11.5-14.5) Platelet Count 313 x10^3/uL (140-400) Sodium Level 150 mmol/L (136-145) Potassium Level 3.3 mmol/L (3.5-5.1) Chloride Level 107 mmol/L (98-107) Carbon Dioxide Level 32 mmol/L (21-32) Anion Gap 11 (6-14) Blood Urea Nitrogen 103 mg/dL (8-26) Creatinine 1.7 mg/dL (0.7-1.3) Estimated GFR (Cockcroft-Gault) 41.9 Glucose Level 165 mg/dL (70-99) Calcium Level 8.2 mg/dL (8.5-10.1) Phosphorus Level 4.9 mg/dL (2.6-4.7) Albumin 2.1 g/dL (3.4-5.0) Test 03/23/19 09:59 Glucose (Fingerstick) 153 mg/dL (70-99) Laboratory Tests Test 03/22/19 12:19 03/22/19 13:15 03/22/19 13:26 03/22/19 14:33 Glucose (Fingerstick) 136 mg/dL (70-99) 125 mg/dL (70-99) 118 mg/dL (70-99) White Blood Count 13.5 x10^3/uL (4.0-11.0) Red Blood Count 3.70 x10^6/uL (4.30-5.70) Hemoglobin 11.0 g/dL (13.0-17.5) Hematocrit 34.6 % (39.0-53.0) Mean Corpuscular Volume 94 fL (79-100) Mean Corpuscular Hemoglobin 30 pg (25-35) Mean Corpuscular Hemoglobin Concent 32 g/dL (31-37) Red Cell Distribution Width 14.1 % (11.5-14.5) Platelet Count 370 x10^3/uL (140-400) Sodium Level 150 mmol/L (136-145) Potassium Level 3.2 mmol/L (3.5-5.1) Chloride Level 109 mmol/L (98-107) Carbon Dioxide Level 34 mmol/L (21-32) Anion Gap 7 (6-14) Blood Urea Nitrogen 86 mg/dL (8-26) Creatinine 1.7 mg/dL (0.7-1.3) Estimated GFR (Cockcroft-Gault) 41.9 Glucose Level 143 mg/dL (70-99) Calcium Level 8.3 mg/dL (8.5-10.1) Phosphorus Level 4.6 mg/dL (2.6-4.7) Magnesium Level 2.3 mg/dL (1.8-2.4) Test 03/22/19 15:38 03/22/19 16:48 03/22/19 17:52 03/22/19 19:07 Glucose (Fingerstick) 162 mg/dL (70-99) 138 mg/dL (70-99) 153 mg/dL (70-99) 142 mg/dL (70-99) Test 03/22/19 19:58 03/22/19 21:06 03/22/19 23:21 03/23/19 01:22 Glucose (Fingerstick) 141 mg/dL (70-99) 155 mg/dL (70-99) 150 mg/dL (70-99) 143 mg/dL (70-99) Test 03/23/19 03:28 03/23/19 04:33 03/23/19 05:23 03/23/19 06:19 Glucose (Fingerstick) 129 mg/dL (70-99) 126 mg/dL (70-99) 120 mg/dL (70-99) 131 mg/dL (70-99) Test 03/23/19 07:30 03/23/19 07:48 03/23/19 08:30 03/23/19 08:57 O2 Saturation 94 % (92-99) Arterial Blood pH 7.44 (7.35-7.45) Arterial Blood pCO2 at Patient Temp 49 mmHg (35-46) Arterial Blood pO2 at Patient Temp 70 mmHg (75-108) Arterial Blood HCO3 33 mmol/L (21-28) Arterial Blood Base Excess 7 mmol/L (-3-3) FiO2 40 Glucose (Fingerstick) 140 mg/dL (70-99) 167 mg/dL (70-99) White Blood Count 11.4 x10^3/uL (4.0-11.0) Red Blood Count 3.81 x10^6/uL (4.30-5.70) Hemoglobin 11.5 g/dL (13.0-17.5) Hematocrit 35.6 % (39.0-53.0) Mean Corpuscular Volume 93 fL (79-100) Mean Corpuscular Hemoglobin 30 pg (25-35) Mean Corpuscular Hemoglobin Concent 32 g/dL (31-37) Red Cell Distribution Width 14.5 % (11.5-14.5) Platelet Count 313 x10^3/uL (140-400) Sodium Level 150 mmol/L (136-145) Potassium Level 3.3 mmol/L (3.5-5.1) Chloride Level 107 mmol/L (98-107) Carbon Dioxide Level 32 mmol/L (21-32) Anion Gap 11 (6-14) Blood Urea Nitrogen 103 mg/dL (8-26) Creatinine 1.7 mg/dL (0.7-1.3) Estimated GFR (Cockcroft-Gault) 41.9 Glucose Level 165 mg/dL (70-99) Calcium Level 8.2 mg/dL (8.5-10.1) Phosphorus Level 4.9 mg/dL (2.6-4.7) Albumin 2.1 g/dL (3.4-5.0) Test 03/23/19 09:59 Glucose (Fingerstick) 153 mg/dL (70-99) Medications Active Scripts Medications Dose Route/Sig Max Daily Dose Days Date Category Proair Hfa Inhaler (Albuterol Sulfate) 8.5 Gm Hfa.aer.ad 1 Puff INH PRN Q6HRS PRN 02/27/19 Reported Lantus Solostar (Insulin Glargine,Hum.rec.anlog) 100 Unit/1 Ml Insuln.pen 20 Unit SQ QHS 02/27/19 Reported Humalog (Insulin Lispro) 100 Unit/1 Ml Cartridge 6 Unit SQ TIDWMEALS 02/27/19 Reported Doxazosin Mesylate 2 Mg Tablet 2 Mg PO DAILY 02/27/19 Reported Omeprazole 40 Mg Capsule.dr 40 Mg PO DAILY 02/27/19 Reported Amlodipine Besylate 10 Mg Tablet 10 Mg PO DAILY 02/27/19 Reported Atorvastatin Calcium 20 Mg Tablet 20 Mg PO DAILY 02/27/19 Reported Atenolol 50 Mg Tablet 50 Mg PO DAILY 02/27/19 Reported Losartan Potassium 100 Mg Tablet 100 Mg PO DAILY 02/27/19 Reported Aspirin 81 Mg Tab.chew 81 Mg PO DAILY 02/27/19 Reported Glyburide 5 Mg Tablet 1 Tab PO BID 11/09/16 Reported Active Scripts Medications Dose Route/Sig Max Daily Dose Days Date Category Proair Hfa Inhaler (Albuterol Sulfate) 8.5 Gm Hfa.aer.ad 1 Puff INH PRN Q6HRS PRN 02/27/19 Reported Lantus Solostar (Insulin Glargine,Hum.rec.anlog) 100 Unit/1 Ml Insuln.pen 20 Unit SQ QHS 02/27/19 Reported Humalog (Insulin Lispro) 100 Unit/1 Ml Cartridge 6 Unit SQ TIDWMEALS 02/27/19 Reported Doxazosin Mesylate 2 Mg Tablet 2 Mg PO DAILY 02/27/19 Reported Omeprazole 40 Mg Capsule.dr 40 Mg PO DAILY 02/27/19 Reported Amlodipine Besylate 10 Mg Tablet 10 Mg PO DAILY 02/27/19 Reported Atorvastatin Calcium 20 Mg Tablet 20 Mg PO DAILY 02/27/19 Reported Atenolol 50 Mg Tablet 50 Mg PO DAILY 02/27/19 Reported Losartan Potassium 100 Mg Tablet 100 Mg PO DAILY 02/27/19 Reported Aspirin 81 Mg Tab.chew 81 Mg PO DAILY 02/27/19 Reported Glyburide 5 Mg Tablet 1 Tab PO BID 11/09/16 Reported Impression . Acute hypoxemic /hypercapnic respiratory failure./ ARDS sepsis./ ARDS In-house cardiopulmonary arrest. Normal EF / mild Pulmonary HTN Acute on chronic right-sided heart failure. Morbid obesity. Diabetes uncontrolled Abnormal CXR/ susperimposed CHF right effusion 03/18, effusion better 03/20 but infiltrates worse <Conclusion>ECHO The left ventricular systolic function is normal. The ejection fraction is 60-65%. There is normal LV segmental wall motion. Transmitral Doppler flow pattern is Grade I-abnormal relaxation pattern. Trace tricuspid regurgitation. Estimated PAP 33-38 mmHg. There is no evidence of significant pericardial effusion. Plan . Acute hypoxemic /hypercapnic respiratory failure./ ARDS * cont nebs/PRN suctioning * cont. A/C mode, reduce PEEP to 13 today * cont. solumedrol * follow ABG/CXR Sepsis/ ARDS * ABX per ID * supportive care as above * follow cultures LEONARD * cr. peaked at 3.2 * Cr. is now 1.7 * nephrology following * avoid nephrotoxic medications Cardiac Arrest * ECHO 60-65%, PAP 33-38 * Diuresis * monitor KCL Acute on chronic right-sided heart failure * Diuresis * cardiology following Hypernatremia * Na+150 * continue free water flushes * renal following Morbid obesity. * TF per dietary recs Diabetes uncontrolled * cont. insulin gtt D/W RT PT. is DNR MAGO NI MD Mar 23, 2019 11:16
--- NOTE | 2019-03-23 13:01 | RAD ---
Portable chest compared to similar examination dated 03/21/2019 for ARDS, respiratory failure. FINDINGS: There is slightly improved aeration in both lungs, with persistent large bilateral pleural effusions, right greater than left. Endotracheal tube and enteric tubes are unchanged, as is a right PICC line. Heart size remains within normal limits. No new lung parenchymal abnormality is evident. Persistent bilateral pulmonary edema. IMPRESSION: 1. Essentially stable chest, with perhaps slightly better aeration in the right lung apices. Electronically signed by: Esequiel Montoay MD (03/23/2019 12:58 PM) [id number]
--- NOTE | 2019-03-23 13:12 | NUR ---
SS following up with discharge planning. Pt remains on the vent. Per [facility] insurance pt will need trach for seven days prior to meeting guidelines for LTAC with insurance. Pt still too unstable for trach at this time. SS will continue to follow for discharge planning.
[2019-03-23] MEDS: MIDAZOLAM 100mg/100ml NS BAG 100 ML IV PRN (17:04)
[2019-03-24] VITALS (23 sets, daily range): BP systolic 119–175; BP diastolic 65–78
[2019-03-24] MEDS: IV DEXTROSE 5% 1,000 ML IV SCH ×3 (01:20→21:33)
[2019-03-24] MEDS: INSULIN REGULAR VIAL 150 UNIT in 0.9 % SODIUM CHLORIDE 150ML 150 ML IV PRN ×3 (02:43→17:08)
[2019-03-24 05:57] LABS: CALCIUM 8.5 mg/dL (8.5-10.1); CREATININE 1.4 mg/dL (0.7-1.3); GFR 52.4; PHOSPHORUS 5.2 mg/dL (2.6-4.7); POTASSIUM 3.1 mmol/L (3.5-5.1)
[2019-03-24] MEDS: FUROSEMIDE 100 MG/10 ML VIAL. IVP SCH (06:06)
[2019-03-24] MEDS: dilTIAZem HCL 30 MG TABLET PO SCH ×3 (06:07→17:26)
[2019-03-24] MEDS: methylPREDNISolone SOD SUCC PF 125 MG/2 ML VIAL. IV SCH ×4 (06:07→21:35)
[2019-03-24] MEDS: HEPARIN for SUB-Q USE 5,000 UNIT/ML VIAL. SQ SCH ×3 (06:07→21:31)
[2019-03-24] MEDS: METOPROLOL TARTRATE 5 MG/5 ML VIAL. IVP SCH ×3 (06:34→17:26)
[2019-03-24] MEDS: IPRATRPIUM/ALBUTEROL 0.5/2.5MG 3 ML NEBU. NEB SCH ×4 (08:23→19:39)
[2019-03-24] MEDS ORDERED: POTASSIUM CHLORIDE 20 MEQ/15 ML ORAL LIQUID. PEG ONE (08:30)
[2019-03-24 08:47] LABS: BASE EXCESS ABG 4 mmol/L (-3-3); HCO3 ABG 30 mmol/L (21-28); PCO2 ABG 47 mmHg (35-46); PO2 ABG 62 mmHg (75-108); SAT O2 ABG 91 % (92-99)
[2019-03-24 08:53] LABS: FIO2 ABG 50
--- NOTE | 2019-03-24 09:35 | PDOC ---
PROGRESS NOTES Chief Complaint Chief Complaint ARDS Acute respiratory failure secondary to congestive heart failure,ARDS Hypernatremia secondary to severe dehydration . High residuals on tube feedings no evidence of obstructive pattern on x ray done 03/05/2019 Bilateral general scrotal swelling and tenderness. Dm2 obesity, extreme, morbid hx RLE BKA RLE stump with chronic wound. left foot nail onychomycosis Acute renal failure ATN chronic venous insuff left lower leg Bilateral lower lobe consolidation concerning for multifocal pneumonia Right renal hypodensity measuring 2.5 cm Anasarca. bilateral external iliac lymphadenopathy Trace tricuspid regurgitation. Estimated PAP 33-38 mmHg. Diastolic CHF History of Present Illness History of Present Illness On 3 sedations, fentanyl, propofol, Versed Soft belly, no reports of high residuals today PEEP pressures 10 with FiO2 50% Lasix down to 80 once a day-was getting 3 times a day-overdiuresis and? Good UO otherwise, NOT hypotensive with high PEEP NA 151 K 3.0 Plan: updated family at bedside regarding LTAC etc. 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 HEENT: Pupils equal, ETT. OGT LUNGS: Diminished HEART: S1, S2. regular ABDOMEN: Obese, distended, decreased bowel sounds, no grimace or guarding to palpation GENITOURINARY: Cob[place] - less scrotal edema but still present EXTREMITIES: Generalized anasarca. RLE stump with chronic wound. No erythema/fluctuance/warmth. no cyanosis SKIN: Warm to touch. DRY SANDER: Unresponsive/sedated on vent RUE-PICC (03/09) clean General: Other (SEDATED ON VENT) Heart: Regular rate, Normal S1, Normal S2, No murmurs, Gallops Lungs: Crackles, Other ( decraesed BLL) Abdomen: Normal bowel sounds, Other (indwelling [place] catheter with good urine output) Extremities: No clubbing, No cyanosis, Other (1+ EDEMA) Skin: No rashes, No breakdown, Other (scale, lower leg ) Labs LABS Laboratory Tests Test 03/23/19 09:59 03/23/19 11:07 03/23/19 12:09 03/23/19 13:12 Glucose (Fingerstick) 153 mg/dL (70-99) 146 mg/dL (70-99) 135 mg/dL (70-99) 145 mg/dL (70-99) Test 03/23/19 14:21 03/23/19 16:24 03/23/19 18:27 03/23/19 19:32 Glucose (Fingerstick) 154 mg/dL (70-99) 140 mg/dL (70-99) 170 mg/dL (70-99) 166 mg/dL (70-99) Test 03/23/19 21:20 03/23/19 23:00 03/24/19 01:32 03/24/19 02:53 Glucose (Fingerstick) 171 mg/dL (70-99) 154 mg/dL (70-99) 135 mg/dL (70-99) 159 mg/dL (70-99) Test 03/24/19 05:35 03/24/19 07:20 03/24/19 07:30 Sodium Level 151 mmol/L (136-145) Potassium Level 3.1 mmol/L (3.5-5.1) Chloride Level 110 mmol/L (98-107) Carbon Dioxide Level 32 mmol/L (21-32) Anion Gap 9 (6-14) Blood Urea Nitrogen 111 mg/dL (8-26) Creatinine 1.4 mg/dL (0.7-1.3) Estimated GFR (Cockcroft-Gault) 52.4 Glucose Level 152 mg/dL (70-99) Glucose (Fingerstick) 133 mg/dL (70-99) 138 mg/dL (70-99) Calcium Level 8.5 mg/dL (8.5-10.1) Phosphorus Level 5.2 mg/dL (2.6-4.7) Albumin 2.0 g/dL (3.4-5.0) O2 Saturation 91 % (92-99) Arterial Blood pH 7.42 (7.35-7.45) Arterial Blood pCO2 at Patient Temp 47 mmHg (35-46) Arterial Blood pO2 at Patient Temp 62 mmHg (75-108) Arterial Blood HCO3 30 mmol/L (21-28) Arterial Blood Base Excess 4 mmol/L (-3-3) FiO2 50 Review of Systems Review of Systems Sedate intubated hence limited ROS Assessment and Plan Assessmemt and Plan Problems Medical Problems: (1) Acute renal failure Status: Acute (2) Edema Status: Acute (3) Shortness of breath Status: Acute Comment Review of Relevant I have reviewed the following items pascual (where applicable) has been applied. Labs Laboratory Tests Test 03/22/19 10:05 03/22/19 11:08 03/22/19 12:19 03/22/19 13:15 Glucose (Fingerstick) 161 mg/dL (70-99) 165 mg/dL (70-99) 136 mg/dL (70-99) White Blood Count 13.5 x10^3/uL (4.0-11.0) Red Blood Count 3.70 x10^6/uL (4.30-5.70) Hemoglobin 11.0 g/dL (13.0-17.5) Hematocrit 34.6 % (39.0-53.0) Mean Corpuscular Volume 94 fL (79-100) Mean Corpuscular Hemoglobin 30 pg (25-35) Mean Corpuscular Hemoglobin Concent 32 g/dL (31-37) Red Cell Distribution Width 14.1 % (11.5-14.5) Platelet Count 370 x10^3/uL (140-400) Sodium Level 150 mmol/L (136-145) Potassium Level 3.2 mmol/L (3.5-5.1) Chloride Level 109 mmol/L (98-107) Carbon Dioxide Level 34 mmol/L (21-32) Anion Gap 7 (6-14) Blood Urea Nitrogen 86 mg/dL (8-26) Creatinine 1.7 mg/dL (0.7-1.3) Estimated GFR (Cockcroft-Gault) 41.9 Glucose Level 143 mg/dL (70-99) Calcium Level 8.3 mg/dL (8.5-10.1) Phosphorus Level 4.6 mg/dL (2.6-4.7) Magnesium Level 2.3 mg/dL (1.8-2.4) Test 03/22/19 13:26 03/22/19 14:33 03/22/19 15:38 03/22/19 16:48 Glucose (Fingerstick) 125 mg/dL (70-99) 118 mg/dL (70-99) 162 mg/dL (70-99) 138 mg/dL (70-99) Test 03/22/19 17:52 03/22/19 19:07 03/22/19 19:58 03/22/19 21:06 Glucose (Fingerstick) 153 mg/dL (70-99) 142 mg/dL (70-99) 141 mg/dL (70-99) 155 mg/dL (70-99) Test 03/22/19 23:21 03/23/19 01:22 03/23/19 03:28 03/23/19 04:33 Glucose (Fingerstick) 150 mg/dL (70-99) 143 mg/dL (70-99) 129 mg/dL (70-99) 126 mg/dL (70-99) Test 03/23/19 05:23 03/23/19 06:19 03/23/19 07:30 03/23/19 07:48 Glucose (Fingerstick) 120 mg/dL (70-99) 131 mg/dL (70-99) 140 mg/dL (70-99) O2 Saturation 94 % (92-99) Arterial Blood pH 7.44 (7.35-7.45) Arterial Blood pCO2 at Patient Temp 49 mmHg (35-46) Arterial Blood pO2 at Patient Temp 70 mmHg (75-108) Arterial Blood HCO3 33 mmol/L (21-28) Arterial Blood Base Excess 7 mmol/L (-3-3) FiO2 40 Test 03/23/19 08:30 03/23/19 08:57 03/23/19 09:59 03/23/19 11:07 White Blood Count 11.4 x10^3/uL (4.0-11.0) Red Blood Count 3.81 x10^6/uL (4.30-5.70) Hemoglobin 11.5 g/dL (13.0-17.5) Hematocrit 35.6 % (39.0-53.0) Mean Corpuscular Volume 93 fL (79-100) Mean Corpuscular Hemoglobin 30 pg (25-35) Mean Corpuscular Hemoglobin Concent 32 g/dL (31-37) Red Cell Distribution Width 14.5 % (11.5-14.5) Platelet Count 313 x10^3/uL (140-400) Sodium Level 150 mmol/L (136-145) Potassium Level 3.3 mmol/L (3.5-5.1) Chloride Level 107 mmol/L (98-107) Carbon Dioxide Level 32 mmol/L (21-32) Anion Gap 11 (6-14) Blood Urea Nitrogen 103 mg/dL (8-26) Creatinine 1.7 mg/dL (0.7-1.3) Estimated GFR (Cockcroft-Gault) 41.9 Glucose Level 165 mg/dL (70-99) Calcium Level 8.2 mg/dL (8.5-10.1) Phosphorus Level 4.9 mg/dL (2.6-4.7) Albumin 2.1 g/dL (3.4-5.0) Glucose (Fingerstick) 167 mg/dL (70-99) 153 mg/dL (70-99) 146 mg/dL (70-99) Test 03/23/19 12:09 03/23/19 13:12 03/23/19 14:21 03/23/19 16:24 Glucose (Fingerstick) 135 mg/dL (70-99) 145 mg/dL (70-99) 154 mg/dL (70-99) 140 mg/dL (70-99) Test 03/23/19 18:27 03/23/19 19:32 03/23/19 21:20 03/23/19 23:00 Glucose (Fingerstick) 170 mg/dL (70-99) 166 mg/dL (70-99) 171 mg/dL (70-99) 154 mg/dL (70-99) Test 03/24/19 01:32 03/24/19 02:53 03/24/19 05:35 03/24/19 07:20 Glucose (Fingerstick) 135 mg/dL (70-99) 159 mg/dL (70-99) 133 mg/dL (70-99) Sodium Level 151 mmol/L (136-145) Potassium Level 3.1 mmol/L (3.5-5.1) Chloride Level 110 mmol/L (98-107) Carbon Dioxide Level 32 mmol/L (21-32) Anion Gap 9 (6-14) Blood Urea Nitrogen 111 mg/dL (8-26) Creatinine 1.4 mg/dL (0.7-1.3) Estimated GFR (Cockcroft-Gault) 52.4 Glucose Level 152 mg/dL (70-99) Calcium Level 8.5 mg/dL (8.5-10.1) Phosphorus Level 5.2 mg/dL (2.6-4.7) Albumin 2.0 g/dL (3.4-5.0) O2 Saturation 91 % (92-99) Arterial Blood pH 7.42 (7.35-7.45) Arterial Blood pCO2 at Patient Temp 47 mmHg (35-46) Arterial Blood pO2 at Patient Temp 62 mmHg (75-108) Arterial Blood HCO3 30 mmol/L (21-28) Arterial Blood Base Excess 4 mmol/L (-3-3) FiO2 50 Test 03/24/19 07:30 Glucose (Fingerstick) 138 mg/dL (70-99) Laboratory Tests Test 03/23/19 09:59 03/23/19 11:07 03/23/19 12:09 03/23/19 13:12 Glucose (Fingerstick) 153 mg/dL (70-99) 146 mg/dL (70-99) 135 mg/dL (70-99) 145 mg/dL (70-99) Test 03/23/19 14:21 03/23/19 16:24 03/23/19 18:27 03/23/19 19:32 Glucose (Fingerstick) 154 mg/dL (70-99) 140 mg/dL (70-99) 170 mg/dL (70-99) 166 mg/dL (70-99) Test 03/23/19 21:20 03/23/19 23:00 03/24/19 01:32 03/24/19 02:53 Glucose (Fingerstick) 171 mg/dL (70-99) 154 mg/dL (70-99) 135 mg/dL (70-99) 159 mg/dL (70-99) Test 03/24/19 05:35 03/24/19 07:20 03/24/19 07:30 Sodium Level 151 mmol/L (136-145) Potassium Level 3.1 mmol/L (3.5-5.1) Chloride Level 110 mmol/L (98-107) Carbon Dioxide Level 32 mmol/L (21-32) Anion Gap 9 (6-14) Blood Urea Nitrogen 111 mg/dL (8-26) Creatinine 1.4 mg/dL (0.7-1.3) Estimated GFR (Cockcroft-Gault) 52.4 Glucose Level 152 mg/dL (70-99) Glucose (Fingerstick) 133 mg/dL (70-99) 138 mg/dL (70-99) Calcium Level 8.5 mg/dL (8.5-10.1) Phosphorus Level 5.2 mg/dL (2.6-4.7) Albumin 2.0 g/dL (3.4-5.0) O2 Saturation 91 % (92-99) Arterial Blood pH 7.42 (7.35-7.45) Arterial Blood pCO2 at Patient Temp 47 mmHg (35-46) Arterial Blood pO2 at Patient Temp 62 mmHg (75-108) Arterial Blood HCO3 30 mmol/L (21-28) Arterial Blood Base Excess 4 mmol/L (-3-3) FiO2 50 Microbiology 03/05/19 Blood Culture - Final, Complete NO GROWTH AFTER 5 DAYS 03/08/19 - Final, Complete 03/08/19 - Final, Complete 03/08/19 - Final, Complete 03/08/19 Gram Stain Evaluation - Final, Complete 03/08/19 Sputum Culture - Final, Complete 03/08/19 Sputum Result 1 - Final, Complete 03/02/19 Urine Culture - Final, Complete 03/02/19 Urine Culture Result 1 (LUCIO) - Final, Complete 03/09/19 Aerobic Culture - Final, Complete 03/09/19 Aerobic Culture Result 1 (LUCIO) - Final, Complete 03/09/19 Gram Stain - Final, Complete 03/09/19 Gram Stain Result 1 (LUCIO) - Final, Complete 03/09/19 Gram Stain Result 2 (LUCIO) - Final, Complete Medications Current Medications Ondansetron HCl (Zofran) 4 mg PRN Q8HRS PRN IV NAUSEA/VOMITING; Start 02/27/19 at 16:45; Stop 02/28/19 at 16:44; Status DC Morphine Sulfate (Morphine Sulfate) 2 mg PRN Q2HR PRN IV PAIN; Start 02/27/19 at 16:45; Stop 02/28/19 at 16:44; Status DC Acetaminophen (Tylenol) 650 mg PRN Q4HRS PRN PO FEVER Last administered on 02/27/19at 21:06; Start 02/27/19 at 16:45; Stop 02/28/19 at 16:44; Status DC Dextrose (Dextrose 50%-Water Syringe) 12.5 gm PRN Q15MIN PRN IV SEE COMMENTS; Start 02/27/19 at 16:45; Stop 03/10/19 at 13:48; Status DC Heparin Sodium (Porcine) (Heparin Sodium) 5,000 unit Q8HRS SQ Last administered on 03/24/19at 06:07; Start 02/27/19 at 17:00 Lorazepam (Ativan) 1 mg PRN Q8HRS PRN IV ANXIETY / AGITATION Last administered on 03/08/19at 03:37; Start 02/28/19 at 02:45 Etomidate (Amidate) 20 mg STK-MED ONCE IV ; Start 02/28/19 at 06:59; Stop 02/28/19 at 07:00; Status DC Rocuronium [place] (Zemuron) 50 mg STK-MED ONCE .ROUTE ; Start 02/28/19 at 07:00; Stop 02/28/19 at 09:42; Status DC Dopamine HCl/ Dextrose 250 ml @ 12.266 mls/ hr CONT PRN IV SEE I/O RECORD Last administered on 02/28/19at 08:06; Start 02/28/19 at 07:15; Stop 03/17/19 at 15:50; Status DC Fentanyl Citrate 30 ml @ 0 mls/hr CONT PRN IV SEE PROTOCOL; Start 02/28/19 at 07:15; Stop 02/28/19 at 07:59; Status DC Propofol 100 ml @ 0 mls/hr CONT PRN IV SEE PROTOCOL; Start 02/28/19 at 07:15; Stop 02/28/19 at 07:59; Status DC Fentanyl Citrate (Fentanyl 2ml Vial) 25 mcg PRN Q1HR PRN IV SEE COMMENTS; Start 02/28/19 at 07:15; Stop 02/28/19 at 07:59; Status DC Fentanyl Citrate (Fentanyl 2ml Vial) 50 mcg PRN Q1HR PRN IV SEE COMMENTS; Start 02/28/19 at 07:15; Stop 02/28/19 at 07:59; Status DC Midazolam HCl 100 ml @ 0 mls/hr CONT PRN IV SEE PROTOCOL Last administered on 03/23/19at 17:04; Start 02/28/19 at 07:15 Sodium Chloride 1,000 ml @ 1,000 mls/hr Q1H IV Last administered on 02/28/19at 07:32; Start 02/28/19 at 07:32; Stop 02/28/19 at 10:09; Status DC Fentanyl Citrate (Fentanyl 2ml Vial) 25 mcg PRN Q30MIN PRN IV see comments; Start 02/28/19 at 07:45; Stop 02/28/19 at 09:42; Status DC Lorazepam (Ativan) 1 mg PRN Q30MIN PRN IV SEDATION; Start 02/28/19 at 07:45; Stop 02/28/19 at 09:42; Status DC Fentanyl Citrate 30 ml @ 2.5 mls/hr CONT PRN PRN IV SEE I/O RECORD Last administered on 03/05/19at 03:44; Start 02/28/19 at 07:45; Stop 03/05/19 at 04:40; Status DC Propofol 100 ml @ 0 mls/hr CONT PRN IV SEE I/O RECORD Last administered on 03/23/19at 17:04; Start 02/28/19 at 07:45 Vecuronium [place] (Norcuron Bolus) 10 mg PRN Q30MIN PRN IV SHIVERING; Start 02/28/19 at 07:45; Stop 02/28/19 at 09:42; Status DC Meperidine HCl (Demerol) 12.5 mg PRN Q30MIN PRN IV SHIVERING; Start 02/28/19 at 07:45; Stop 02/28/19 at 09:42; Status DC Multi-Ingred Cream/Lotion/Oil/ Oint (Artificial Tears Eye Ointment) 1 jennifer PRN Q6HRS PRN OU 0.5 INCH FOR DRY EYE; Start 02/28/19 at 07:45; Stop 02/28/19 at 09:42; Status DC Famotidine (Pepcid Vial) 20 mg BID IVP Last administered on 02/28/19at 11:03; Start 02/28/19 at 09:00; Stop 02/28/19 at 14:25; Status DC Aspirin (Aspirin) 300 mg DAILY HI ; Start 02/28/19 at 09:00; Stop 02/28/19 at 09:42; Status DC Sodium Chloride (Normal Saline Flush) 3 ml QSHIFT PRN IV AFTER MEDS AND BLOOD DRAWS; Start 02/28/19 at 07:45 Acetaminophen (Tylenol) 650 mg Q6HRS NG ; Start 02/28/19 at 12:00; Stop 02/28/19 at 12:00; Status DC Acetaminophen (Tylenol Supp) 650 mg PRN Q6HRS PRN HI MILD PAIN / TEMP; Start 03/01/19 at 07:45; Stop 03/01/19 at 07:45; Status DC Acetaminophen (Tylenol) 650 mg PRN Q6HRS PRN NG MILD PAIN / TEMP; Start 03/01/19 at 07:45; Stop 03/01/19 at 07:45; Status DC Info (Icu Electrolyte Protocol) 1 ea DAILY PRN MC PER PROTOCOL; Start 03/02/19 at 07:45; Stop 03/02/19 at 07:45; Status DC Furosemide (Lasix) 60 mg 1X ONCE IVP Last administered on 02/28/19at 08:30; Start 02/28/19 at 08:30; Stop 02/28/19 at 08:31; Status DC Ceftriaxone Sodium (Rocephin) 1 gm Q24H IVP Last administered on 02/28/19at 11:03; Start 02/28/19 at 11:00; Stop 02/28/19 at 11:18; Status DC Calcium Chloride 1000 mg/Dextrose 60 ml @ 120 mls/hr 1X ONCE IV Last administered on 02/28/19at 11:03; Start 02/28/19 at 10:30; Stop 02/28/19 at 10:59; Status DC Meropenem 500 mg/ Sodium Chloride 50 ml @ 100 mls/hr Q8HRS IV Last administered on 03/03/19at 06:24; Start 02/28/19 at 14:00; Stop 03/03/19 at 07:04; Status DC Linezolid/Dextrose 300 ml @ 300 mls/hr Q12HR IV Last administered on 03/03/19 20:00; Start 02/28/19 at 11:30; Stop 03/04/19 at 08:55; Status DC Micafungin Sodium 100 mg/Dextrose 100 ml @ 100 mls/hr Q24H IV Last administered on 03/04/19 15:53; Start 02/28/19 at 12:00; Stop 03/05/19 at 06:47; Status DC Furosemide (Lasix) 40 mg [id number] IVP Last administered on 03/02/19 14:06; Start 02/28/19 at 14:00; Stop 03/02/19 at 17:02; Status DC Famotidine (Pepcid Vial) 20 mg QHS IVP Last administered on 03/01/19at 21:24; Start 02/28/19 at 21:00; Stop 03/02/19 at 10:07; Status DC Albuterol/ Ipratropium (Duoneb) 3 ml RTQID NEB Last administered on 03/24/19at 08:23; Start 02/28/19 at 16:00 Haloperidol Lactate (Haldol Inj) 5 mg PRN Q6HRS PRN IVP AGITATION 2ND CHOICE Last administered on 03/09/19 14:07; Start 02/28/19 at 15:15 Vecuronium [place] (Norcuron Bolus) 8 mg PRN Q4HRS PRN IV MUSCLE SPASMS Last administered on 03/12/19at 23:48; Start 02/28/19 at 15:15 Perflutren Protein Type A Microsphe (Optison) 0.66 mg PRN 1X PRN IV SEE COMMENTS; Start 03/01/19 at 10:00; Stop 03/02/19 at 09:59; Status DC Digoxin (Lanoxin) 125 mcg 1X STAT IV ; Start 03/01/19 at 15:34; Stop 03/01/19 at 16:00; Status DC Sodium Chloride 500 ml @ 500 mls/hr 1X ONCE IV Last administered on 03/01/19at 18:46; Start 03/01/19 at 18:45; Stop 03/01/19 at 19:44; Status DC Famotidine (Pepcid Vial) 20 mg Q12HR IVP Last administered on 03/23/19 21:17; Start 03/02/19 at 21:00 Furosemide (Lasix) 40 mg DAILY IVP Last administered on 03/04/19 09:52; Start 03/03/19 at 09:00; Stop 03/04/19 at 12:13; Status DC Acetaminophen (Tylenol Supp) 650 mg PRN Q6HRS PRN HI MILD PAIN / TEMP Last administered on 03/03/19 17:39; Start 03/02/19 at 17:15 Meropenem 500 mg/ Sodium Chloride 50 ml @ 100 mls/hr Q6HRS IV Last administered on 03/05/19 05:33; Start 03/03/19 at 12:00; Stop 03/05/19 at 06:47; Status DC Albumin Human 100 ml @ 100 mls/hr 1X ONCE IV Last administered on 03/03/19 08:52; Start 03/03/19 at 08:30; Stop 03/03/19 at 09:29; Status DC Atropine Sulfate (ATROPINE 0.5mg SYRINGE) 2 mg STK-MED ONCE .ROUTE ; Start 02/27/19 at 16:21; Stop 03/03/19 at 16:22; Status DC Dopamine HCl/ Dextrose (DOPamine 400MG/ 250ML PREMIX) 400 mg STK-MED ONCE IV ; Start 02/27/19 at 16:21; Stop 03/03/19 at 16:22; Status DC Furosemide (Lasix) 40 mg 1X ONCE IVP Last administered on 03/03/19 18:46; Start 03/03/19 at 18:45; Stop 03/03/19 at 18:46; Status DC Lorazepam 100 mg/ Sodium Chloride 100 ml @ 0 mls/hr CONT PRN IV SEE PROTOCOL Last administered on 03/03/19 22:18; Start 03/03/19 at 22:00; Stop 03/17/19 at 15:39; Status DC Acetaminophen (Tylenol) 650 mg PRN Q6HRS PRN PEG MILD PAIN / TEMP Last administered on 03/10/19at 20:48; Start 03/04/19 at 11:45 Furosemide (Lasix) 40 mg [id number] IVP Last administered on 03/06/19 08:38; Start 03/04/19 at 14:00; Stop 03/06/19 at 13:30; Status DC Fentanyl Citrate 30 ml @ 0 mls/hr CONT PRN IV SEE PROTOCOL Last administered on 03/24/19at 06:41; Start 03/05/19 at 04:45 Cefepime HCl (Maxipime) 2 gm Q8HRS IVP Last administered on 03/10/19 05:43; Start 03/05/19 at 06:45; Stop 03/10/19 at 08:29; Status DC Metronidazole 100 ml @ 100 mls/hr Q8HRS IV Last administered on 03/10/19 05:45; Start 03/05/19 at 06:45; Stop 03/10/19 at 08:29; Status DC Linezolid/Dextrose 300 ml @ 300 mls/hr Q12HR IV Last administered on 03/05/19 21:24; Start 03/05/19 at 09:00; Stop 03/06/19 at 06:42; Status DC Metoclopramide HCl (Reglan Vial) 10 mg QIDACHS IV Last administered on 03/06/19at 20:43; Start 03/05/19 at 11:30; Stop 03/07/19 at 07:37; Status DC Insulin Glargine (Lantus) 12 units BID SQ Last administered on 03/09/19 09:29; Start 03/05/19 at 09:00; Stop 03/09/19 at 17:11; Status DC Digoxin (Lanoxin) 500 mcg 1X ONCE IV Last administered on 03/06/19 00:48; Start 03/06/19 at 00:45; Stop 03/06/19 at 00:46; Status DC Metoprolol Tartrate (Lopressor Vial) 5 mg 1X ONCE IVP Last administered on 03/06/19 00:53; Start 03/06/19 at 00:45; Stop 03/06/19 at 00:46; Status DC Sodium Chloride 500 ml @ 500 mls/hr 1X ONCE IV Last administered on 03/06/19 00:49; Start 03/06/19 at 00:45; Stop 03/06/19 at 01:44; Status DC Nystatin (Mycostatin) 1 jeninfer BID TP Last administered on 03/23/19at 21:18; Start 03/06/19 at 09:00 Sodium Cl/Sod Bicarb/Potass Cl/ PEG (Golytely) 2,000 ml 1X ONCE PO Last administered on 03/06/19 09:33; Start 03/06/19 at 08:00; Stop 03/06/19 at 08:01; Status DC Furosemide (Lasix) 40 mg DAILY08 IVP Last administered on 03/09/19 09:27; Start 03/07/19 at 08:00; Stop 03/09/19 at 12:45; Status DC Metoprolol Tartrate (Lopressor Vial) 10 mg 1X ONCE IVP Last administered on 03/06/19 16:08; Start 03/06/19 at 15:15; Stop 03/06/19 at 15:16; Status DC Metoprolol Tartrate (Lopressor Vial) 5 mg Q6HRS IVP Last administered on 03/07/19 17:03; Start 03/06/19 at 18:00; Stop 03/07/19 at 18:27; Status DC Aspirin (Children'S Aspirin) 81 mg 1X ONCE PO Last administered on 03/06/19 18:18; Start 03/06/19 at 17:00; Stop 03/06/19 at 17:01; Status DC Aspirin (Children'S Aspirin) 81 mg DAILYWBKFT PO Last administered on 03/23/19at 08:13; Start 03/07/19 at 08:00 Labetalol HCl (Normodyne Iv Push) 20 mg PRN Q2HR PRN IVP HYPERTENSION, SEE COMMENTS Last administered on 03/06/19 21:29; Start 03/06/19 at 17:15 Digoxin (Lanoxin) 250 mcg 1X ONCE IV Last administered on 03/06/19 22:00; Start 03/06/19 at 22:00; Stop 03/06/19 at 22:01; Status DC Diltiazem HCl 125 mg/Dextrose 125 ml @ 5 mls/hr CONT PRN IV SEE I/O RECORD Last administered on 03/12/19at 08:20; Start 03/06/19 at 23:00; Stop 03/12/19 at 11:03; Status DC Metoclopramide HCl (Reglan Vial) 10 mg Q6HRS IV ; Start 03/07/19 at 08:00; Stop 03/08/19 at 07:51; Status DC Metoprolol Tartrate (Lopressor Vial) 5 mg Q6HRS IVP Last administered on 03/24/19at 06:34; Start 03/08/19 at 12:00 Furosemide (Lasix) 40 mg 1X ONCE IVP Last administered on 03/08/19at 21:21; Start 03/08/19 at 21:00; Stop 03/08/19 at 21:01; Status DC Furosemide (Lasix) 20 mg DAILY08 IVP ; Start 03/10/19 at 08:00; Stop 03/10/19 at 08:00; Status DC Furosemide (Lasix) 20 mg DAILY08 IVP Last administered on 03/14/19at 07:41; Start 03/10/19 at 08:00; Stop 03/15/19 at 07:32; Status DC Insulin Glargine (Lantus) 16 units BID SQ Last administered on 03/12/19at 00:09; Start 03/09/19 at 21:00; Stop 03/12/19 at 07:18; Status DC Insulin Human Lispro (HumaLOG) 0-9 UNITS Q6HRS SQ Last administered on 03/12/19at 05:45; Start 03/09/19 at 18:00; Stop 03/12/19 at 07:18; Status DC Dextrose (Dextrose 50%-Water Syringe) 12.5 gm PRN Q15MIN PRN IV SEE COMMENTS; Start 03/09/19 at 17:15; Stop 03/21/19 at 10:07; Status DC Cefepime HCl (Maxipime) 2 gm Q12HR IVP Last administered on 03/21/19at 08:26; Start 03/10/19 at 21:00; Stop 03/21/19 at 12:48; Status DC Insulin Human Lispro (HumaLOG) 15 units 1X ONCE SQ Last administered on 03/11/19at 00:14; Start 03/11/19 at 00:00; Stop 03/11/19 at 00:01; Status DC Insulin Glargine (Lantus) 20 units BID SQ Last administered on 03/17/19at 08:32; Start 03/12/19 at 09:00; Stop 03/17/19 at 10:46; Status DC Insulin Human Lispro (HumaLOG) 0-9 UNITS Q6HRS SQ Last administered on 03/21/19at 06:35; Start 03/12/19 at 12:00; Stop 03/21/19 at 10:00; Status DC Diltiazem HCl (Cardizem) 30 mg Q6HRS PO Last administered on 03/24/19at 06:07; Start 03/12/19 at 12:00 Furosemide (Lasix) 20 mg 1X ONCE IVP Last administered on 03/13/19at 11:04; Start 03/13/19 at 10:30; Stop 03/13/19 at 10:31; Status DC Furosemide (Lasix) 20 mg 1X ONCE IVP Last administered on 03/14/19at 07:40; Start 03/14/19 at 07:15; Stop 03/14/19 at 14:05; Status DC Furosemide (Lasix) 40 mg Q8HRS IVP Last administered on 03/17/19at 05:49; Start 03/14/19 at 22:00; Stop 03/17/19 at 10:58; Status DC Albuterol Sulfate (Ventolin Neb Soln) 2.5 mg 1X ONCE NEB Last administered on 03/16/19at 04:00; Start 03/16/19 at 04:00; Stop 03/16/19 at 04:01; Status DC Methylprednisolone Sodium Succinate (SOLU-Medrol 40MG VIAL) 80 mg 1X ONCE IV Last administered on 03/16/19at 04:17; Start 03/16/19 at 04:30; Stop 03/16/19 at 04:31; Status DC Furosemide (Lasix) 20 mg 1X ONCE IVP Last administered on 03/16/19at 04:17; Start 03/16/19 at 04:30; Stop 03/16/19 at 04:31; Status DC Insulin Glargine (Lantus) 25 units BID SQ Last administered on 03/21/19at 08:55; Start 03/17/19 at 21:00; Stop 03/21/19 at 10:00; Status DC Insulin Human Lispro (HumaLOG) 10 units Q6HRS SQ ; Start 03/17/19 at 12:00; Stop 03/17/19 at 13:32; Status DC Furosemide (Lasix) 40 mg QD IVP Last administered on 03/18/19at 05:55; Start 03/18/19 at 06:00; Stop 03/18/19 at 10:54; Status DC Insulin Human Lispro (HumaLOG) 3 units Q6HRS SQ Last administered on 03/19/19at 06:12; Start 03/17/19 at 18:00; Stop 03/19/19 at 08:28; Status DC Azithromycin 250 mg/Sodium Chloride 250 ml @ 250 mls/hr Q24H IV Last administered on 03/23/19at 08:13; Start 03/18/19 at 08:00; Stop 03/23/19 at 16:23; Status DC Alteplase, Recombinant (Cathflo For Central Catheter Clearance) 1 mg 1X ONCE INT CAT Last administered on 03/18/19at 09:21; Start 03/18/19 at 07:30; Stop 03/18/19 at 07:31; Status DC Alteplase, Recombinant (Cathflo For Central Catheter Clearance) 1 mg 1X ONCE INT CAT Last administered on 03/18/19at 11:04; Start 03/18/19 at 07:30; Stop 03/18/19 at 07:31; Status DC Alteplase, Recombinant (Cathflo For Central Catheter Clearance) 1 mg 1X ONCE INT CAT Last administered on 03/18/19at 13:26; Start 03/18/19 at 07:30; Stop 03/18/19 at 07:31; Status DC Furosemide (Lasix) 60 mg 1X ONCE IVP Last administered on 03/18/19at 11:04; Start 03/18/19 at 10:54; Stop 03/18/19 at 10:55; Status DC Furosemide (Lasix) 40 mg Q8HRS IVP ; Start 03/18/19 at 14:00; Stop 03/18/19 at 17:53; Status DC Digoxin (Lanoxin) 250 mcg 1X ONCE IV Last administered on 03/18/19at 15:48; Start 03/18/19 at 15:30; Stop 03/18/19 at 15:33; Status DC Furosemide (Lasix) 40 mg Q8HRS IVP Last administered on 03/20/19at 05:42; Start 03/18/19 at 20:00; Stop 03/20/19 at 08:48; Status DC Digoxin (Lanoxin) 500 mcg 1X ONCE IV Last administered on 03/18/19at 19:35; Start 03/18/19 at 20:00; Stop 03/18/19 at 20:01; Status DC Insulin Human Lispro (HumaLOG) 6 units Q6HRS SQ Last administered on 03/20/19at 05:45; Start 03/19/19 at 12:00; Stop 03/20/19 at 08:48; Status DC Furosemide (Lasix) 80 mg Q8HRS IVP Last administered on 03/22/19at 12:43; Start 03/20/19 at 14:00; Stop 03/22/19 at 17:00; Status DC Insulin Human Lispro (HumaLOG) 9 units Q6HRS SQ Last administered on 03/21/19at 06:36; Start 03/20/19 at 12:00; Stop 03/21/19 at 10:00; Status DC Methylprednisolone Sodium Succinate (SOLU-Medrol 125MG VIAL) 80 mg Q8HRS IV Last administered on 03/24/19 06:07; Start 03/20/19 at 11:00 Alteplase, Recombinant (Cathflo For Central Catheter Clearance) 1 mg 1X ONCE INT CAT Last administered on 03/20/19at 20:23; Start 03/20/19 at 20:00; Stop 03/20/19 at 20:09; Status DC Alteplase, Recombinant (Cathflo For Central Catheter Clearance) 1 mg 1X ONCE INT CAT Last administered on 03/20/19at 20:23; Start 03/20/19 at 20:00; Stop 03/20/19 at 20:09; Status DC Alteplase, Recombinant (Cathflo For Central Catheter Clearance) 1 mg 1X ONCE INT CAT Last administered on 03/20/19at 20:23; Start 03/20/19 at 20:00; Stop 03/20/19 at 20:09; Status DC Insulin Human Regular 150 unit/ Sodium Chloride 151.5 ml @ 0 mls/hr CONT PRN IV SEE I/O RECORD Last administered on 03/24/19at 02:43; Start 03/21/19 at 10:00 Dextrose (Dextrose 50%-Water Syringe) 12.5 gm PRN Q15MIN PRN IV LOW BLOOD SUGAR; Start 03/21/19 at 10:00 Furosemide (Lasix) 80 mg DAILY06 IVP Last administered on 03/24/19at 06:06; Start 03/23/19 at 06:00 Potassium Chloride (KCl Oral Soln) 40 meq 1X ONCE PEG Last administered on 03/22/19at 17:14; Start 03/22/19 at 17:30; Stop 03/22/19 at 17:31; Status DC Metoclopramide HCl (Reglan Vial) 10 mg PRN Q6HRS PRN IV NAUSEA/VOMITING; Start 03/23/19 at 10:30 Dextrose 1,000 ml @ 75 mls/hr [id number] IV Last administered on 03/24/19at 01:20; Start 03/23/19 at 11:15 Potassium Chloride (KCl Oral Soln) 40 meq 1X ONCE PEG ; Start 03/24/19 at 08:30; Stop 03/24/19 at 08:31; Status DC Active Scripts Active Reported Proair Hfa Inhaler (Albuterol Sulfate) 8.5 Gm Hfa.aer.ad 1 Puff INH PRN Q6HRS PRN Lantus Solostar (Insulin Glargine,Hum.rec.anlog) 100 Unit/1 Ml Insuln.pen 20 Unit SQ QHS Humalog (Insulin Lispro) 100 Unit/1 Ml Cartridge 6 Unit SQ TIDWMEALS Doxazosin Mesylate 2 Mg Tablet 2 Mg PO DAILY Omeprazole 40 Mg Capsule.dr 40 Mg PO DAILY Amlodipine Besylate 10 Mg Tablet 10 Mg PO DAILY Atorvastatin Calcium 20 Mg Tablet 20 Mg PO DAILY Atenolol 50 Mg Tablet 50 Mg PO DAILY Losartan Potassium 100 Mg Tablet 100 Mg PO DAILY Aspirin 81 Mg Tab.chew 81 Mg PO DAILY Glyburide 5 Mg Tablet 1 Tab PO BID Vitals/I & O Vital Sign - Last 24 Hours 03/23/19 03/23/19 03/23/19 03/23/19 09:45 09:46 10:00 10:26 Pulse 70 Resp 21 B/P (MAP) 171/73 (105) Pulse Ox 96 93 96 O2 Delivery Ventilator Ventilator Ventilator O2 Flow Rate 40.0 03/23/19 03/23/19 03/23/19 03/23/19 10:54 10:55 11:00 11:59 Pulse 64 64 68 Resp 21 B/P (MAP) 171/77 171/77 175/79 (111) Pulse Ox 96 96 O2 Delivery Ventilator Ventilator 403/23/19 03/23/19 03/23/19 12:00 12:02 13:00 14:00 Pulse 71 68 Resp 21 21 B/P (MAP) 150/67 (94) 170/70 (103) Pulse Ox 96 96 96 O2 Delivery Ventilator Mechanical Ventilator Ventilator Ventilator 03/23/19 03/23/19 03/23/19 03/23/19 14:00 14:01 15:02 16:00 Pulse 71 57 Resp 21 21 B/P (MAP) 168/74 (105) 178/70 (106) Pulse Ox 96 96 96 O2 Delivery Ventilator Ventilator Mechanical Ventilator O2 Flow Rate 40.0 03/23/19 03/23/19 03/23/19 03/23/19 16:00 16:12 17:03 17:04 Pulse 60 60 60 Resp 21 B/P (MAP) 179/70 (106) 179/70 179/70 Pulse Ox 96 96 O2 Delivery Ventilator Ventilator 03/23/19 03/23/19 03/23/19 03/23/19 17:39 17:53 18:04 18:06 Pulse 62 62 Resp 21 B/P (MAP) 173/67 (102) 168/71 (103) Pulse Ox 93 96 96 96 O2 Delivery Ventilator Ventilator O2 Flow Rate 40.0 40.0 03/23/19 03/23/19 03/23/19 03/23/19 18:35 19:00 19:46 19:59 Pulse 61 Resp 22 B/P (MAP) 171/73 (105) Pulse Ox 96 92 91 O2 Delivery Ventilator Mechanical Ventilator Ventilator O2 Flow Rate 40.0 03/23/19 03/23/19 03/23/19 03/23/19 20:00 21:00 21:05 22:00 Temp 98.4 98.4 Pulse 65 69 72 Resp 22 22 22 B/P (MAP) 160/69 (99) 152/61 (91) 156/64 (94) Pulse Ox 93 94 94 93 O2 Delivery Ventilator Ventilator Ventilator Ventilator 03/23/19 03/23/19 03/23/19 03/23/19 22:56 23:00 23:30 23:44 Pulse 65 62 Resp 22 B/P (MAP) 166/70 (102) 166/70 Pulse Ox 92 93 O2 Delivery Ventilator Ventilator Mechanical Ventilator 03/23/19 03/24/19 03/24/19 03/24/19 23:44 00:00 01:00 01:53 Temp 98.8 98.8 Pulse 62 63 58 Resp 22 B/P (MAP) 166/70 172/75 (107) 175/74 (107) Pulse Ox 93 92 92 O2 Delivery Ventilator Ventilator Ventilator 03/24/19 03/24/19 03/24/19 03/24/19 02:00 03:00 03:35 03:50 Pulse 59 58 Resp B/P (MAP) 147/67 (93) 145/70 (95) Pulse Ox 93 91 92 O2 Delivery Ventilator Ventilator Mechanical Ventilator Ventilator 03/24/19 03/24/19 03/24/19 03/24/19 04:00 05:00 05:34 06:00 Temp 97.6 97.6 Pulse 56 53 58 Resp 22 B/P (MAP) 153/72 (99) 152/72 (98) 155/73 (100) Pulse Ox 91 93 93 93 O2 Delivery Ventilator Ventilator Ventilator Ventilator 03/24/19 03/24/19 03/24/19 03/24/19 06:07 06:34 07:00 08:00 Temp 97.7 97.7 Pulse 58 58 56 60 Resp B/P (MAP) 155/73 155/73 154/74 (100) 142/66 (91) Pulse Ox 93 91 O2 Delivery Ventilator Ventilator 03/24/19 03/24/19 03/24/19 08:00 08:25 09:00 Pulse 68 Resp 22 B/P (MAP) 136/65 (88) Pulse Ox 92 93 O2 Delivery Mechanical Ventilator Ventilator Ventilator Intake and Output 03/23/19 03/23/19 03/24/19 15:00 23:00 07:00 Intake Total 800 ml 2450 ml 3390 ml Output Total 1575 ml 1485 ml 1300 ml Balance -775 ml 965 ml 2090 ml ADITYA HUSTON MD Mar 24, 2019 09:35
[2019-03-24] MEDS: FAMOTIDINE 20 MG/2 ML VIAL IVP SCH ×2 (10:32→21:31)
[2019-03-24] MEDS: ASPIRIN CHEWABLE 81 MG TABLET. PO SCH (10:32)
[2019-03-24] MEDS: NYSTATIN 100,000 UNIT/GM TOPICAL CREAM 15GM TUBE. TP SCH ×2 (10:34→21:32)
--- NOTE | 2019-03-24 11:15 | PDOC ---
PULMONARY PROGRESS NOTES Subjective Patient remains on vent overnight, with Fi02 of 50% and PEEP of 11. Pt. is sedated currently. Minimal secretions reports by nursing, nursing also reports placing TF on hold currently 2/2 residuals. Vitals Laboratory Tests Test 03/23/19 12:09 03/23/19 13:12 03/23/19 14:21 03/23/19 16:24 Glucose (Fingerstick) 135 mg/dL 145 mg/dL 154 mg/dL 140 mg/dL Test 03/23/19 18:27 03/23/19 19:32 03/23/19 21:20 03/23/19 23:00 Glucose (Fingerstick) 170 mg/dL 166 mg/dL 171 mg/dL 154 mg/dL Test 03/24/19 01:32 03/24/19 02:53 03/24/19 05:35 03/24/19 07:20 Glucose (Fingerstick) 135 mg/dL 159 mg/dL 133 mg/dL Sodium Level 151 mmol/L Potassium Level 3.1 mmol/L Chloride Level 110 mmol/L Carbon Dioxide Level 32 mmol/L Anion Gap 9 Blood Urea Nitrogen 111 mg/dL Creatinine 1.4 mg/dL Estimated GFR (Cockcroft-Gault) 52.4 Glucose Level 152 mg/dL Calcium Level 8.5 mg/dL Phosphorus Level 5.2 mg/dL Albumin 2.0 g/dL O2 Saturation 91 % Arterial Blood pH 7.42 Arterial Blood pCO2 at Patient Temp 47 mmHg Arterial Blood pO2 at Patient Temp 62 mmHg Arterial Blood HCO3 30 mmol/L Arterial Blood Base Excess 4 mmol/L FiO2 50 Test 03/24/19 07:30 03/24/19 09:39 03/24/19 10:34 Glucose (Fingerstick) 138 mg/dL 175 mg/dL 161 mg/dL Current Medications Medications (Trade) Dose Ordered Sig/Lula Route PRN Reason Start Time Stop Time Status Last Admin Dose Admin Ondansetron HCl (Zofran) 4 mg PRN Q8HRS PRN IV NAUSEA/VOMITING 02/27/19 16:45 02/28/19 16:44 DC Morphine Sulfate (Morphine Sulfate) 2 mg PRN Q2HR PRN IV PAIN 02/27/19 16:45 02/28/19 16:44 DC Acetaminophen (Tylenol) 650 mg PRN Q4HRS PRN PO FEVER 02/27/19 16:45 02/28/19 16:44 DC 02/27/19 21:06 Dextrose (Dextrose 50%-Water Syringe) 12.5 gm PRN Q15MIN PRN IV SEE COMMENTS 02/27/19 16:45 03/10/19 13:48 DC Heparin Sodium (Porcine) (Heparin Sodium) 5,000 unit Q8HRS SQ 02/27/19 17:00 03/24/19 06:07 Lorazepam (Ativan) 1 mg PRN Q8HRS PRN IV ANXIETY / AGITATION 02/28/19 02:45 03/08/19 03:37 Etomidate (Amidate) 20 mg STK-MED ONCE IV 02/28/19 06:59 02/28/19 07:00 DC Rocuronium [place] (Zemuron) 50 mg STK-MED ONCE .ROUTE 02/28/19 07:00 02/28/19 09:42 DC Dopamine HCl/ Dextrose 250 ml @ 12.266 mls/ hr CONT PRN IV SEE I/O RECORD 02/28/19 07:15 03/17/19 15:50 DC 02/28/19 08:06 Fentanyl Citrate 30 ml @ 0 mls/hr CONT PRN IV SEE PROTOCOL 02/28/19 07:15 02/28/19 07:59 DC Propofol 100 ml @ 0 mls/hr CONT PRN IV SEE PROTOCOL 02/28/19 07:15 02/28/19 07:59 DC Fentanyl Citrate (Fentanyl 2ml Vial) 25 mcg PRN Q1HR PRN IV SEE COMMENTS 02/28/19 07:15 02/28/19 07:59 DC Fentanyl Citrate (Fentanyl 2ml Vial) 50 mcg PRN Q1HR PRN IV SEE COMMENTS 02/28/19 07:15 02/28/19 07:59 DC Midazolam HCl 100 ml @ 0 mls/hr CONT PRN IV SEE PROTOCOL 02/28/19 07:15 03/23/19 17:04 Sodium Chloride 1,000 ml @ 1,000 mls/hr Q1H IV 02/28/19 07:32 02/28/19 10:09 DC 02/28/19 07:32 Fentanyl Citrate (Fentanyl 2ml Vial) 25 mcg PRN Q30MIN PRN IV see comments 02/28/19 07:45 02/28/19 09:42 DC Lorazepam (Ativan) 1 mg PRN Q30MIN PRN IV SEDATION 02/28/19 07:45 02/28/19 09:42 DC Fentanyl Citrate 30 ml @ 2.5 mls/hr CONT PRN PRN IV SEE I/O RECORD 02/28/19 07:45 03/05/19 04:40 DC 03/05/19 03:44 Propofol 100 ml @ 0 mls/hr CONT PRN IV SEE I/O RECORD 02/28/19 07:45 03/23/19 17:04 Vecuronium [place] (Norcuron Bolus) 10 mg PRN Q30MIN PRN IV SHIVERING 02/28/19 07:45 02/28/19 09:42 DC Meperidine HCl (Demerol) 12.5 mg PRN Q30MIN PRN IV SHIVERING 02/28/19 07:45 02/28/19 09:42 DC Multi-Ingred Cream/Lotion/Oil/ Oint (Artificial Tears Eye Ointment) 1 jennifer PRN Q6HRS PRN OU 0.5 INCH FOR DRY EYE 02/28/19 07:45 02/28/19 09:42 DC Famotidine (Pepcid Vial) 20 mg BID IVP 02/28/19 09:00 02/28/19 14:25 DC 02/28/19 11:03 Aspirin (Aspirin) 300 mg DAILY RI 02/28/19 09:00 02/28/19 09:42 DC Sodium Chloride (Normal Saline Flush) 3 ml QSHIFT PRN IV AFTER MEDS AND BLOOD DRAWS 02/28/19 07:45 Acetaminophen (Tylenol) 650 mg Q6HRS NG 02/28/19 12:00 02/28/19 12:00 DC Acetaminophen (Tylenol Supp) 650 mg PRN Q6HRS PRN RI MILD PAIN / TEMP 03/01/19 07:45 03/01/19 07:45 DC Acetaminophen (Tylenol) 650 mg PRN Q6HRS PRN NG MILD PAIN / TEMP 03/01/19 07:45 03/01/19 07:45 DC Info (Icu Electrolyte Protocol) 1 ea DAILY PRN MC PER PROTOCOL 03/02/19 07:45 03/02/19 07:45 DC Furosemide (Lasix) 60 mg 1X ONCE IVP 02/28/19 08:30 02/28/19 08:31 DC 02/28/19 08:30 Ceftriaxone Sodium (Rocephin) 1 gm Q24H IVP 02/28/19 11:00 02/28/19 11:18 DC 02/28/19 11:03 Calcium Chloride 1000 mg/Dextrose 60 ml @ 120 mls/hr 1X ONCE IV 02/28/19 10:30 02/28/19 10:59 DC 02/28/19 11:03 Meropenem 500 mg/ Sodium Chloride 50 ml @ 100 mls/hr Q8HRS IV 02/28/19 14:00 03/03/19 07:04 DC 03/03/19 06:24 Linezolid/Dextrose 300 ml @ 300 mls/hr Q12HR IV 02/28/19 11:30 03/04/19 08:55 DC 03/03/19 20:00 Micafungin Sodium 100 mg/Dextrose 100 ml @ 100 mls/hr Q24H IV 02/28/19 12:00 03/05/19 06:47 DC 03/04/19 15:53 Furosemide (Lasix) 40 mg [id number] IVP 02/28/19 14:00 03/02/19 17:02 DC 03/02/19 14:06 Famotidine (Pepcid Vial) 20 mg QHS IVP 02/28/19 21:00 03/02/19 10:07 DC 03/01/19 21:24 Albuterol/ Ipratropium (Duoneb) 3 ml RTQID NEB 02/28/19 16:00 03/24/19 08:23 Haloperidol Lactate (Haldol Inj) 5 mg PRN Q6HRS PRN IVP AGITATION 2ND CHOICE 02/28/19 15:15 03/09/19 14:07 Vecuronium [place] (Norcuron Bolus) 8 mg PRN Q4HRS PRN IV MUSCLE SPASMS 02/28/19 15:15 03/12/19 23:48 Perflutren Protein Type A Microsphe (Optison) 0.66 mg PRN 1X PRN IV SEE COMMENTS 03/01/19 10:00 03/02/19 09:59 DC Digoxin (Lanoxin) 125 mcg 1X STAT IV 03/01/19 15:34 03/01/19 16:00 DC Sodium Chloride 500 ml @ 500 mls/hr 1X ONCE IV 03/01/19 18:45 03/01/19 19:44 DC 03/01/19 18:46 Famotidine (Pepcid Vial) 20 mg Q12HR IVP 03/02/19 21:00 03/24/19 10:32 Furosemide (Lasix) 40 mg DAILY IVP 03/03/19 09:00 03/04/19 12:13 DC 03/04/19 09:52 Acetaminophen (Tylenol Supp) 650 mg PRN Q6HRS PRN RI MILD PAIN / TEMP 03/02/19 17:15 03/03/19 17:39 Meropenem 500 mg/ Sodium Chloride 50 ml @ 100 mls/hr Q6HRS IV 03/03/19 12:00 03/05/19 06:47 DC 03/05/19 05:33 Albumin Human 100 ml @ 100 mls/hr 1X ONCE IV 03/03/19 08:30 03/03/19 09:29 DC 03/03/19 08:52 Atropine Sulfate (ATROPINE 0.5mg SYRINGE) 2 mg STK-MED ONCE .ROUTE 02/27/19 16:21 03/03/19 16:22 DC Dopamine HCl/ Dextrose (DOPamine 400MG/ 250ML PREMIX) 400 mg STK-MED ONCE IV 02/27/19 16:21 03/03/19 16:22 DC Furosemide (Lasix) 40 mg 1X ONCE IVP 03/03/19 18:45 03/03/19 18:46 DC 03/03/19 18:46 Lorazepam 100 mg/ Sodium Chloride 100 ml @ 0 mls/hr CONT PRN IV SEE PROTOCOL 03/03/19 22:00 03/17/19 15:39 DC 03/03/19 22:18 Acetaminophen (Tylenol) 650 mg PRN Q6HRS PRN PEG MILD PAIN / TEMP 03/04/19 11:45 03/10/19 20:48 Furosemide (Lasix) 40 mg BID92 IVP 03/04/19 14:00 03/06/19 13:30 DC 03/06/19 08:38 Fentanyl Citrate 30 ml @ 0 mls/hr CONT PRN IV SEE PROTOCOL 03/05/19 04:45 03/24/19 06:41 Cefepime HCl (Maxipime) 2 gm Q8HRS IVP 03/05/19 06:45 4/9/19 08:29 DC 03/10/19 05:43 Metronidazole 100 ml @ 100 mls/hr Q8HRS IV 03/05/19 06:45 03/10/19 08:29 DC 03/10/19 05:45 Linezolid/Dextrose 300 ml @ 300 mls/hr Q12HR IV 03/05/19 09:00 03/06/19 06:42 DC 03/05/19 21:24 Metoclopramide HCl (Reglan Vial) 10 mg QIDACHS IV 03/05/19 11:30 03/07/19 07:37 DC 03/06/19 20:43 Insulin Glargine (Lantus) 12 units BID SQ 03/05/19 09:00 03/09/19 17:11 DC 03/09/19 09:29 Digoxin (Lanoxin) 500 mcg 1X ONCE IV 03/06/19 00:45 03/06/19 00:46 DC 03/06/19 00:48 Metoprolol Tartrate (Lopressor Vial) 5 mg 1X ONCE IVP 03/06/19 00:45 03/06/19 00:46 DC 03/06/19 00:53 Sodium Chloride 500 ml @ 500 mls/hr 1X ONCE IV 03/06/19 00:45 03/06/19 01:44 DC 03/06/19 00:49 Nystatin (Mycostatin) 1 jennifer BID TP 03/06/19 09:00 03/24/19 10:34 Sodium Cl/Sod Bicarb/Potass Cl/ PEG (Golytely) 2,000 ml 1X ONCE PO 03/06/19 08:00 03/06/19 08:01 DC 03/06/19 09:33 Furosemide (Lasix) 40 mg DAILY08 IVP 03/07/19 08:00 03/09/19 12:45 DC 03/09/19 09:27 Metoprolol Tartrate (Lopressor Vial) 10 mg 1X ONCE IVP 03/06/19 15:15 03/06/19 15:16 DC 03/06/19 16:08 Metoprolol Tartrate (Lopressor Vial) 5 mg Q6HRS IVP 03/06/19 18:00 03/07/19 18:27 DC 03/07/19 17:03 Aspirin (Children'S Aspirin) 81 mg 1X ONCE PO 03/06/19 17:00 03/06/19 17:01 DC 03/06/19 18:18 Aspirin (Children'S Aspirin) 81 mg [id number] PO 03/07/19 08:00 03/24/19 10:32 Labetalol HCl (Normodyne Iv Push) 20 mg PRN Q2HR PRN IVP HYPERTENSION, SEE COMMENTS 03/06/19 17:15 03/06/19 21:29 Digoxin (Lanoxin) 250 mcg 1X ONCE IV 03/06/19 22:00 03/06/19 22:01 DC 03/06/19 22:00 Diltiazem HCl 125 mg/Dextrose 125 ml @ 5 mls/hr CONT PRN IV SEE I/O RECORD 03/06/19 23:00 03/12/19 11:03 DC 03/12/19 08:20 Metoclopramide HCl (Reglan Vial) 10 mg Q6HRS IV 03/07/19 08:00 03/08/19 07:51 DC Metoprolol Tartrate (Lopressor Vial) 5 mg Q6HRS IVP 03/08/19 12:00 03/24/19 06:34 Furosemide (Lasix) 40 mg 1X ONCE IVP 03/08/19 21:00 03/08/19 21:01 DC 03/08/19 21:21 Furosemide (Lasix) 20 mg DAILY08 IVP 03/10/19 08:00 03/10/19 08:00 DC Furosemide (Lasix) 20 mg DAILY08 IVP 03/10/19 08:00 03/15/19 07:32 DC 03/14/19 07:41 Insulin Glargine (Lantus) 16 units BID SQ 03/09/19 21:00 03/12/19 07:18 DC 03/12/19 00:09 Insulin Human Lispro (HumaLOG) 0-9 UNITS Q6HRS SQ 03/09/19 18:00 03/12/19 07:18 DC 03/12/19 05:45 Dextrose (Dextrose 50%-Water Syringe) 12.5 gm PRN Q15MIN PRN IV SEE COMMENTS 03/09/19 17:15 03/21/19 10:07 DC Cefepime HCl (Maxipime) 2 gm Q12HR IVP 03/10/19 21:00 03/21/19 12:48 DC 03/21/19 08:26 Insulin Human Lispro (HumaLOG) 15 units 1X ONCE SQ 03/11/19 00:00 03/11/19 00:01 DC 03/11/19 00:14 Insulin Glargine (Lantus) 20 units BID SQ 03/12/19 09:00 03/17/19 10:46 DC 03/17/19 08:32 Insulin Human Lispro (HumaLOG) 0-9 UNITS Q6HRS SQ 03/12/19 12:00 03/21/19 10:00 DC 03/21/19 06:35 Diltiazem HCl (Cardizem) 30 mg Q6HRS PO 03/12/19 12:00 03/24/19 06:07 Furosemide (Lasix) 20 mg 1X ONCE IVP 03/13/19 10:30 03/13/19 10:31 DC 03/13/19 11:04 Furosemide (Lasix) 20 mg 1X ONCE IVP 03/14/19 07:15 03/14/19 14:05 DC 03/14/19 07:40 Furosemide (Lasix) 40 mg Q8HRS IVP 03/14/19 22:00 03/17/19 10:58 DC 03/17/19 05:49 Albuterol Sulfate (Ventolin Neb Soln) 2.5 mg 1X ONCE NEB 03/16/19 04:00 03/16/19 04:01 DC 03/16/19 04:00 Methylprednisolone Sodium Succinate (SOLU-Medrol 40MG VIAL) 80 mg 1X ONCE IV 03/16/19 04:30 03/16/19 04:31 DC 03/16/19 04:17 Furosemide (Lasix) 20 mg 1X ONCE IVP 03/16/19 04:30 03/16/19 04:31 DC 03/16/19 04:17 Insulin Glargine (Lantus) 25 units BID SQ 03/17/19 21:00 03/21/19 10:00 DC 03/21/19 08:55 Insulin Human Lispro (HumaLOG) 10 units Q6HRS SQ 03/17/19 12:00 03/17/19 13:32 DC Furosemide (Lasix) 40 mg QD IVP 03/18/19 06:00 03/18/19 10:54 DC 03/18/19 05:55 Insulin Human Lispro (HumaLOG) 3 units Q6HRS SQ 03/17/19 18:00 03/19/19 08:28 DC 03/19/19 06:12 Azithromycin 250 mg/Sodium Chloride 250 ml @ 250 mls/hr Q24H IV 03/18/19 08:00 03/23/19 16:23 DC 03/23/19 08:13 Alteplase, Recombinant (Cathflo For Central Catheter Clearance) 1 mg 1X ONCE INT CAT 03/18/19 07:30 03/18/19 07:31 DC 03/18/19 09:21 Alteplase, Recombinant (Cathflo For Central Catheter Clearance) 1 mg 1X ONCE INT CAT 03/18/19 07:30 03/18/19 07:31 DC 03/18/19 11:04 Alteplase, Recombinant (Cathflo For Central Catheter Clearance) 1 mg 1X ONCE INT CAT 03/18/19 07:30 03/18/19 07:31 DC 03/18/19 13:26 Furosemide (Lasix) 60 mg 1X ONCE IVP 03/18/19 10:54 03/18/19 10:55 DC 03/18/19 11:04 Furosemide (Lasix) 40 mg Q8HRS IVP 03/18/19 14:00 03/18/19 17:53 DC Digoxin (Lanoxin) 250 mcg 1X ONCE IV 03/18/19 15:30 03/18/19 15:33 DC 03/18/19 15:48 Furosemide (Lasix) 40 mg Q8HRS IVP 03/18/19 20:00 03/20/19 08:48 DC 03/20/19 05:42 Digoxin (Lanoxin) 500 mcg 1X ONCE IV 03/18/19 20:00 03/18/19 20:01 DC 03/18/19 19:35 Insulin Human Lispro (HumaLOG) 6 units Q6HRS SQ 03/19/19 12:00 03/20/19 08:48 DC 03/20/19 05:45 Furosemide (Lasix) 80 mg Q8HRS IVP 03/20/19 14:00 03/22/19 17:00 DC 03/22/19 12:43 Insulin Human Lispro (HumaLOG) 9 units Q6HRS SQ 03/20/19 12:00 03/21/19 10:00 DC 03/21/19 06:36 Methylprednisolone Sodium Succinate (SOLU-Medrol 125MG VIAL) 80 mg Q8HRS IV 03/20/19 11:00 03/24/19 06:07 Alteplase, Recombinant (Cathflo For Central Catheter Clearance) 1 mg 1X ONCE INT CAT 03/20/19 20:00 03/20/19 20:09 DC 03/20/19 20:23 Alteplase, Recombinant (Cathflo For Central Catheter Clearance) 1 mg 1X ONCE INT CAT 03/20/19 20:00 03/20/19 20:09 DC 03/20/19 20:23 Alteplase, Recombinant (Cathflo For Central Catheter Clearance) 1 mg 1X ONCE INT CAT 03/20/19 20:00 03/20/19 20:09 DC 03/20/19 20:23 Insulin Human Regular 150 unit/ Sodium Chloride 151.5 ml @ 0 mls/hr CONT PRN IV SEE I/O RECORD 03/21/19 10:00 03/24/19 10:33 Dextrose (Dextrose 50%-Water Syringe) 12.5 gm PRN Q15MIN PRN IV LOW BLOOD SUGAR 03/21/19 10:00 Furosemide (Lasix) 80 mg DAILY06 IVP 03/23/19 06:00 03/24/19 06:06 Potassium Chloride (KCl Oral Soln) 40 meq 1X ONCE PEG 03/22/19 17:30 03/22/19 17:31 DC 03/22/19 17:14 Metoclopramide HCl (Reglan Vial) 10 mg PRN Q6HRS PRN IV NAUSEA/VOMITING 03/23/19 10:30 03/24/19 11:04 DC 03/24/19 11:02 Dextrose 1,000 ml @ 75 mls/hr [id number] IV 03/23/19 11:15 03/24/19 01:20 Potassium Chloride (KCl Oral Soln) 40 meq 1X ONCE PEG 03/24/19 08:30 03/24/19 08:31 DC 03/24/19 10:32 Metoclopramide HCl (Reglan Vial) 10 mg Q8HRS IV 03/24/19 14:00 UNV Insulin Glargine (Lantus) 10 units BID SQ 03/24/19 21:00 UNV Vital Signs Date Time Temp Pulse Resp B/P (MAP) Pulse Ox O2 Delivery O2 Flow Rate FiO2 03/24/19 10:00 77 22 139/71 (93) 93 Ventilator 03/24/19 08:00 97.7 97.7 03/23/19 18:35 40.0 Comments Pt. is sedated and intubated HEENT: Other (orally intubated, PERRL) Lungs: Crackles, Other ( decraesed BLL) Cardiovascular: S1, S2 Abdomen: Soft, Non-tender, Other (obesity, increased gastric residuals) Extremities: Other (venous stasis and edema left, right BKA) Skin: Warm, Dry Labs Laboratory Tests Test 03/23/19 12:09 03/23/19 13:12 03/23/19 14:21 03/23/19 16:24 Glucose (Fingerstick) 135 mg/dL 145 mg/dL 154 mg/dL 140 mg/dL Test 03/23/19 18:27 03/23/19 19:32 03/23/19 21:20 03/23/19 23:00 Glucose (Fingerstick) 170 mg/dL 166 mg/dL 171 mg/dL 154 mg/dL Test 03/24/19 01:32 03/24/19 02:53 03/24/19 05:35 03/24/19 07:20 Glucose (Fingerstick) 135 mg/dL 159 mg/dL 133 mg/dL Sodium Level 151 mmol/L Potassium Level 3.1 mmol/L Chloride Level 110 mmol/L Carbon Dioxide Level 32 mmol/L Anion Gap 9 Blood Urea Nitrogen 111 mg/dL Creatinine 1.4 mg/dL Estimated GFR (Cockcroft-Gault) 52.4 Glucose Level 152 mg/dL Calcium Level 8.5 mg/dL Phosphorus Level 5.2 mg/dL Albumin 2.0 g/dL O2 Saturation 91 % Arterial Blood pH 7.42 Arterial Blood pCO2 at Patient Temp 47 mmHg Arterial Blood pO2 at Patient Temp 62 mmHg Arterial Blood HCO3 30 mmol/L Arterial Blood Base Excess 4 mmol/L FiO2 50 Test 03/24/19 07:30 03/24/19 09:39 03/24/19 10:34 Glucose (Fingerstick) 138 mg/dL 175 mg/dL 161 mg/dL Current Medications Medications (Trade) Dose Ordered Sig/Lula Route PRN Reason Start Time Stop Time Status Last Admin Dose Admin Ondansetron HCl (Zofran) 4 mg PRN Q8HRS PRN IV NAUSEA/VOMITING 02/27/19 16:45 02/28/19 16:44 DC Morphine Sulfate (Morphine Sulfate) 2 mg PRN Q2HR PRN IV PAIN 02/27/19 16:45 02/28/19 16:44 DC Acetaminophen (Tylenol) 650 mg PRN Q4HRS PRN PO FEVER 02/27/19 16:45 02/28/19 16:44 DC 02/27/19 21:06 Dextrose (Dextrose 50%-Water Syringe) 12.5 gm PRN Q15MIN PRN IV SEE COMMENTS 02/27/19 16:45 03/10/19 13:48 DC Heparin Sodium (Porcine) (Heparin Sodium) 5,000 unit Q8HRS SQ 02/27/19 17:00 03/24/19 06:07 Lorazepam (Ativan) 1 mg PRN Q8HRS PRN IV ANXIETY / AGITATION 02/28/19 02:45 03/08/19 03:37 Etomidate (Amidate) 20 mg STK-MED ONCE IV 02/28/19 06:59 02/28/19 07:00 DC Rocuronium [place] (Zemuron) 50 mg STK-MED ONCE .ROUTE 02/28/19 07:00 02/28/19 09:42 DC Dopamine HCl/ Dextrose 250 ml @ 12.266 mls/ hr CONT PRN IV SEE I/O RECORD 02/28/19 07:15 03/17/19 15:50 DC 02/28/19 08:06 Fentanyl Citrate 30 ml @ 0 mls/hr CONT PRN IV SEE PROTOCOL 02/28/19 07:15 02/28/19 07:59 DC Propofol 100 ml @ 0 mls/hr CONT PRN IV SEE PROTOCOL 02/28/19 07:15 02/28/19 07:59 DC Fentanyl Citrate (Fentanyl 2ml Vial) 25 mcg PRN Q1HR PRN IV SEE COMMENTS 02/28/19 07:15 02/28/19 07:59 DC Fentanyl Citrate (Fentanyl 2ml Vial) 50 mcg PRN Q1HR PRN IV SEE COMMENTS 02/28/19 07:15 02/28/19 07:59 DC Midazolam HCl 100 ml @ 0 mls/hr CONT PRN IV SEE PROTOCOL 02/28/19 07:15 03/23/19 17:04 Sodium Chloride 1,000 ml @ 1,000 mls/hr Q1H IV 02/28/19 07:32 02/28/19 10:09 DC 02/28/19 07:32 Fentanyl Citrate (Fentanyl 2ml Vial) 25 mcg PRN Q30MIN PRN IV see comments 02/28/19 07:45 02/28/19 09:42 DC Lorazepam (Ativan) 1 mg PRN Q30MIN PRN IV SEDATION 02/28/19 07:45 02/28/19 09:42 DC Fentanyl Citrate 30 ml @ 2.5 mls/hr CONT PRN PRN IV SEE I/O RECORD 02/28/19 07:45 03/05/19 04:40 DC 03/05/19 03:44 Propofol 100 ml @ 0 mls/hr CONT PRN IV SEE I/O RECORD 02/28/19 07:45 03/23/19 17:04 Vecuronium [place] (Norcuron Bolus) 10 mg PRN Q30MIN PRN IV SHIVERING 02/28/19 07:45 02/28/19 09:42 DC Meperidine HCl (Demerol) 12.5 mg PRN Q30MIN PRN IV SHIVERING 02/28/19 07:45 02/28/19 09:42 DC Multi-Ingred Cream/Lotion/Oil/ Oint (Artificial Tears Eye Ointment) 1 jennifer PRN Q6HRS PRN OU 0.5 INCH FOR DRY EYE 02/28/19 07:45 02/28/19 09:42 DC Famotidine (Pepcid Vial) 20 mg BID IVP 02/28/19 09:00 02/28/19 14:25 DC 02/28/19 11:03 Aspirin (Aspirin) 300 mg DAILY RI 02/28/19 09:00 02/28/19 09:42 DC Sodium Chloride (Normal Saline Flush) 3 ml QSHIFT PRN IV AFTER MEDS AND BLOOD DRAWS 02/28/19 07:45 Acetaminophen (Tylenol) 650 mg Q6HRS NG 02/28/19 12:00 02/28/19 12:00 DC Acetaminophen (Tylenol Supp) 650 mg PRN Q6HRS PRN RI MILD PAIN / TEMP 03/01/19 07:45 03/01/19 07:45 DC Acetaminophen (Tylenol) 650 mg PRN Q6HRS PRN NG MILD PAIN / TEMP 03/01/19 07:45 03/01/19 07:45 DC Info (Icu Electrolyte Protocol) 1 ea DAILY PRN MC PER PROTOCOL 03/02/19 07:45 03/02/19 07:45 DC Furosemide (Lasix) 60 mg 1X ONCE IVP 02/28/19 08:30 02/28/19 08:31 DC 02/28/19 08:30 Ceftriaxone Sodium (Rocephin) 1 gm Q24H IVP 02/28/19 11:00 02/28/19 11:18 DC 02/28/19 11:03 Calcium Chloride 1000 mg/Dextrose 60 ml @ 120 mls/hr 1X ONCE IV 02/28/19 10:30 02/28/19 10:59 DC 02/28/19 11:03 Meropenem 500 mg/ Sodium Chloride 50 ml @ 100 mls/hr Q8HRS IV 02/28/19 14:00 03/03/19 07:04 DC 03/03/19 06:24 Linezolid/Dextrose 300 ml @ 300 mls/hr Q12HR IV 02/28/19 11:30 03/04/19 08:55 DC 03/03/19 20:00 Micafungin Sodium 100 mg/Dextrose 100 ml @ 100 mls/hr Q24H IV 02/28/19 12:00 03/05/19 06:47 DC 03/04/19 15:53 Furosemide (Lasix) 40 mg [id number] IVP 02/28/19 14:00 03/02/19 17:02 DC 03/02/19 14:06 Famotidine (Pepcid Vial) 20 mg QHS IVP 02/28/19 21:00 03/02/19 10:07 DC 03/01/19 21:24 Albuterol/ Ipratropium (Duoneb) 3 ml RTQID NEB 02/28/19 16:00 03/24/19 08:23 Haloperidol Lactate (Haldol Inj) 5 mg PRN Q6HRS PRN IVP AGITATION 2ND CHOICE 02/28/19 15:15 03/09/19 14:07 Vecuronium [place] (Norcuron Bolus) 8 mg PRN Q4HRS PRN IV MUSCLE SPASMS 02/28/19 15:15 03/12/19 23:48 Perflutren Protein Type A Microsphe (Optison) 0.66 mg PRN 1X PRN IV SEE COMMENTS 03/01/19 10:00 03/02/19 09:59 DC Digoxin (Lanoxin) 125 mcg 1X STAT IV 03/01/19 15:34 03/01/19 16:00 DC Sodium Chloride 500 ml @ 500 mls/hr 1X ONCE IV 03/01/19 18:45 03/01/19 19:44 DC 03/01/19 18:46 Famotidine (Pepcid Vial) 20 mg Q12HR IVP 03/02/19 21:00 03/24/19 10:32 Furosemide (Lasix) 40 mg DAILY IVP 03/03/19 09:00 03/04/19 12:13 DC 03/04/19 09:52 Acetaminophen (Tylenol Supp) 650 mg PRN Q6HRS PRN RI MILD PAIN / TEMP 03/02/19 17:15 03/03/19 17:39 Meropenem 500 mg/ Sodium Chloride 50 ml @ 100 mls/hr Q6HRS IV 03/03/19 12:00 03/05/19 06:47 DC 03/05/19 05:33 Albumin Human 100 ml @ 100 mls/hr 1X ONCE IV 03/03/19 08:30 03/03/19 09:29 DC 03/03/19 08:52 Atropine Sulfate (ATROPINE 0.5mg SYRINGE) 2 mg STK-MED ONCE .ROUTE 02/27/19 16:21 03/03/19 16:22 DC Dopamine HCl/ Dextrose (DOPamine 400MG/ 250ML PREMIX) 400 mg STK-MED ONCE IV 02/27/19 16:21 03/03/19 16:22 DC Furosemide (Lasix) 40 mg 1X ONCE IVP 03/03/19 18:45 03/03/19 18:46 DC 03/03/19 18:46 Lorazepam 100 mg/ Sodium Chloride 100 ml @ 0 mls/hr CONT PRN IV SEE PROTOCOL 03/03/19 22:00 03/17/19 15:39 DC 03/03/19 22:18 Acetaminophen (Tylenol) 650 mg PRN Q6HRS PRN PEG MILD PAIN / TEMP 03/04/19 11:45 03/10/19 20:48 Furosemide (Lasix) 40 mg [id number] IVP 03/04/19 14:00 03/06/19 13:30 DC 03/06/19 08:38 Fentanyl Citrate 30 ml @ 0 mls/hr CONT PRN IV SEE PROTOCOL 03/05/19 04:45 03/24/19 06:41 Cefepime HCl (Maxipime) 2 gm Q8HRS IVP 03/05/19 06:45 03/10/19 08:29 DC 03/10/19 05:43 Metronidazole 100 ml @ 100 mls/hr Q8HRS IV 03/05/19 06:45 03/10/19 08:29 DC 03/10/19 05:45 Linezolid/Dextrose 300 ml @ 300 mls/hr Q12HR IV 03/05/19 09:00 03/06/19 06:42 DC 03/05/19 21:24 Metoclopramide HCl (Reglan Vial) 10 mg QIDACHS IV 03/05/19 11:30 03/07/19 07:37 DC 03/06/19 20:43 Insulin Glargine (Lantus) 12 units BID SQ 03/05/19 09:00 03/09/19 17:11 DC 03/09/19 09:29 Digoxin (Lanoxin) 500 mcg 1X ONCE IV 03/06/19 00:45 03/06/19 00:46 DC 03/06/19 00:48 Metoprolol Tartrate (Lopressor Vial) 5 mg 1X ONCE IVP 03/06/19 00:45 03/06/19 00:46 DC 03/06/19 00:53 Sodium Chloride 500 ml @ 500 mls/hr 1X ONCE IV 03/06/19 00:45 03/06/19 01:44 DC 03/06/19 00:49 Nystatin (Mycostatin) 1 jennifer BID TP 03/06/19 09:00 03/24/19 10:34 Sodium Cl/Sod Bicarb/Potass Cl/ PEG (Golytely) 2,000 ml 1X ONCE PO 03/06/19 08:00 03/06/19 08:01 DC 03/06/19 09:33 Furosemide (Lasix) 40 mg DAILY08 IVP 03/07/19 08:00 03/09/19 12:45 DC 03/09/19 09:27 Metoprolol Tartrate (Lopressor Vial) 10 mg 1X ONCE IVP 03/06/19 15:15 03/06/19 15:16 DC 03/06/19 16:08 Metoprolol Tartrate (Lopressor Vial) 5 mg Q6HRS IVP 03/06/19 18:00 03/07/19 18:27 DC 03/07/19 17:03 Aspirin (Children'S Aspirin) 81 mg 1X ONCE PO 03/06/19 17:00 03/06/19 17:01 DC 03/06/19 18:18 Aspirin (Children'S Aspirin) 81 mg DAILYWBKFT PO 03/07/19 08:00 03/24/19 10:32 Labetalol HCl (Normodyne Iv Push) 20 mg PRN Q2HR PRN IVP HYPERTENSION, SEE COMMENTS 03/06/19 17:15 03/06/19 21:29 Digoxin (Lanoxin) 250 mcg 1X ONCE IV 03/06/19 22:00 03/06/19 22:01 DC 03/06/19 22:00 Diltiazem HCl 125 mg/Dextrose 125 ml @ 5 mls/hr CONT PRN IV SEE I/O RECORD 03/06/19 23:00 03/12/19 11:03 DC 03/12/19 08:20 Metoclopramide HCl (Reglan Vial) 10 mg Q6HRS IV 03/07/19 08:00 03/08/19 07:51 DC Metoprolol Tartrate (Lopressor Vial) 5 mg Q6HRS IVP 03/08/19 12:00 03/24/19 06:34 Furosemide (Lasix) 40 mg 1X ONCE IVP 03/08/19 21:00 03/08/19 21:01 DC 03/08/19 21:21 Furosemide (Lasix) 20 mg DAILY08 IVP 03/10/19 08:00 03/10/19 08:00 DC Furosemide (Lasix) 20 mg DAILY08 IVP 03/10/19 08:00 03/15/19 07:32 DC 03/14/19 07:41 Insulin Glargine (Lantus) 16 units BID SQ 03/09/19 21:00 03/12/19 07:18 DC 03/12/19 00:09 Insulin Human Lispro (HumaLOG) 0-9 UNITS Q6HRS SQ 03/09/19 18:00 03/12/19 07:18 DC 03/12/19 05:45 Dextrose (Dextrose 50%-Water Syringe) 12.5 gm PRN Q15MIN PRN IV SEE COMMENTS 03/09/19 17:15 03/21/19 10:07 DC Cefepime HCl (Maxipime) 2 gm Q12HR IVP 03/10/19 21:00 03/21/19 12:48 DC 03/21/19 08:26 Insulin Human Lispro (HumaLOG) 15 units 1X ONCE SQ 03/11/19 00:00 03/11/19 00:01 DC 03/11/19 00:14 Insulin Glargine (Lantus) 20 units BID SQ 03/12/19 09:00 03/17/19 10:46 DC 03/17/19 08:32 Insulin Human Lispro (HumaLOG) 0-9 UNITS Q6HRS SQ 03/12/19 12:00 03/21/19 10:00 DC 03/21/19 06:35 Diltiazem HCl (Cardizem) 30 mg Q6HRS PO 03/12/19 12:00 03/24/19 06:07 Furosemide (Lasix) 20 mg 1X ONCE IVP 03/13/19 10:30 03/13/19 10:31 DC 03/13/19 11:04 Furosemide (Lasix) 20 mg 1X ONCE IVP 03/14/19 07:15 03/14/19 14:05 DC 03/14/19 07:40 Furosemide (Lasix) 40 mg Q8HRS IVP 03/14/19 22:00 03/17/19 10:58 DC 03/17/19 05:49 Albuterol Sulfate (Ventolin Neb Soln) 2.5 mg 1X ONCE NEB 03/16/19 04:00 03/16/19 04:01 DC 03/16/19 04:00 Methylprednisolone Sodium Succinate (SOLU-Medrol 40MG VIAL) 80 mg 1X ONCE IV 03/16/19 04:30 03/16/19 04:31 DC 03/16/19 04:17 Furosemide (Lasix) 20 mg 1X ONCE IVP 03/16/19 04:30 03/16/19 04:31 DC 03/16/19 04:17 Insulin Glargine (Lantus) 25 units BID SQ 03/17/19 21:00 03/21/19 10:00 DC 03/21/19 08:55 Insulin Human Lispro (HumaLOG) 10 units Q6HRS SQ 03/17/19 12:00 03/17/19 13:32 DC Furosemide (Lasix) 40 mg QD IVP 03/18/19 06:00 03/18/19 10:54 DC 03/18/19 05:55 Insulin Human Lispro (HumaLOG) 3 units Q6HRS SQ 03/17/19 18:00 03/19/19 08:28 DC 03/19/19 06:12 Azithromycin 250 mg/Sodium Chloride 250 ml @ 250 mls/hr Q24H IV 03/18/19 08:00 03/23/19 16:23 DC 03/23/19 08:13 Alteplase, Recombinant (Cathflo For Central Catheter Clearance) 1 mg 1X ONCE INT CAT 03/18/19 07:30 03/18/19 07:31 DC 03/18/19 09:21 Alteplase, Recombinant (Cathflo For Central Catheter Clearance) 1 mg 1X ONCE INT CAT 03/18/19 07:30 03/18/19 07:31 DC 03/18/19 11:04 Alteplase, Recombinant (Cathflo For Central Catheter Clearance) 1 mg 1X ONCE INT CAT 03/18/19 07:30 03/18/19 07:31 DC 03/18/19 13:26 Furosemide (Lasix) 60 mg 1X ONCE IVP 03/18/19 10:54 03/18/19 10:55 DC 03/18/19 11:04 Furosemide (Lasix) 40 mg Q8HRS IVP 03/18/19 14:00 03/18/19 17:53 DC Digoxin (Lanoxin) 250 mcg 1X ONCE IV 03/18/19 15:30 03/18/19 15:33 DC 03/18/19 15:48 Furosemide (Lasix) 40 mg Q8HRS IVP 03/18/19 20:00 03/20/19 08:48 DC 03/20/19 05:42 Digoxin (Lanoxin) 500 mcg 1X ONCE IV 03/18/19 20:00 03/18/19 20:01 DC 03/18/19 19:35 Insulin Human Lispro (HumaLOG) 6 units Q6HRS SQ 03/19/19 12:00 03/20/19 08:48 DC 03/20/19 05:45 Furosemide (Lasix) 80 mg Q8HRS IVP 03/20/19 14:00 03/22/19 17:00 DC 03/22/19 12:43 Insulin Human Lispro (HumaLOG) 9 units Q6HRS SQ 03/20/19 12:00 03/21/19 10:00 DC 03/21/19 06:36 Methylprednisolone Sodium Succinate (SOLU-Medrol 125MG VIAL) 80 mg Q8HRS IV 03/20/19 11:00 03/24/19 06:07 Alteplase, Recombinant (Cathflo For Central Catheter Clearance) 1 mg 1X ONCE INT CAT 03/20/19 20:00 03/20/19 20:09 DC 03/20/19 20:23 Alteplase, Recombinant (Cathflo For Central Catheter Clearance) 1 mg 1X ONCE INT CAT 03/20/19 20:00 03/20/19 20:09 DC 03/20/19 20:23 Alteplase, Recombinant (Cathflo For Central Catheter Clearance) 1 mg 1X ONCE INT CAT 03/20/19 20:00 03/20/19 20:09 DC 03/20/19 20:23 Insulin Human Regular 150 unit/ Sodium Chloride 151.5 ml @ 0 mls/hr CONT PRN IV SEE I/O RECORD 03/21/19 10:00 03/24/19 10:33 Dextrose (Dextrose 50%-Water Syringe) 12.5 gm PRN Q15MIN PRN IV LOW BLOOD SUGAR 03/21/19 10:00 Furosemide (Lasix) 80 mg DAILY06 IVP 03/23/19 06:00 03/24/19 06:06 Potassium Chloride (KCl Oral Soln) 40 meq 1X ONCE PEG 03/22/19 17:30 03/22/19 17:31 DC 03/22/19 17:14 Metoclopramide HCl (Reglan Vial) 10 mg PRN Q6HRS PRN IV NAUSEA/VOMITING 03/23/19 10:30 03/24/19 11:04 DC 03/24/19 11:02 Dextrose 1,000 ml @ 75 mls/hr [id number] IV 03/23/19 11:15 03/24/19 01:20 Potassium Chloride (KCl Oral Soln) 40 meq 1X ONCE PEG 03/24/19 08:30 03/24/19 08:31 DC 03/24/19 10:32 Metoclopramide HCl (Reglan Vial) 10 mg Q8HRS IV 03/24/19 14:00 UNV Insulin Glargine (Lantus) 10 units BID SQ 03/24/19 21:00 UNV Laboratory Tests Test 03/22/19 12:19 03/22/19 13:15 03/22/19 13:26 03/22/19 14:33 Glucose (Fingerstick) 136 mg/dL (70-99) 125 mg/dL (70-99) 118 mg/dL (70-99) White Blood Count 13.5 x10^3/uL (4.0-11.0) Red Blood Count 3.70 x10^6/uL (4.30-5.70) Hemoglobin 11.0 g/dL (13.0-17.5) Hematocrit 34.6 % (39.0-53.0) Mean Corpuscular Volume 94 fL (79-100) Mean Corpuscular Hemoglobin 30 pg (25-35) Mean Corpuscular Hemoglobin Concent 32 g/dL (31-37) Red Cell Distribution Width 14.1 % (11.5-14.5) Platelet Count 370 x10^3/uL (140-400) Sodium Level 150 mmol/L (136-145) Potassium Level 3.2 mmol/L (3.5-5.1) Chloride Level 109 mmol/L (98-107) Carbon Dioxide Level 34 mmol/L (21-32) Anion Gap 7 (6-14) Blood Urea Nitrogen 86 mg/dL (8-26) Creatinine 1.7 mg/dL (0.7-1.3) Estimated GFR (Cockcroft-Gault) 41.9 Glucose Level 143 mg/dL (70-99) Calcium Level 8.3 mg/dL (8.5-10.1) Phosphorus Level 4.6 mg/dL (2.6-4.7) Magnesium Level 2.3 mg/dL (1.8-2.4) Test 03/22/19 15:38 03/22/19 16:48 03/22/19 17:52 03/22/19 19:07 Glucose (Fingerstick) 162 mg/dL (70-99) 138 mg/dL (70-99) 153 mg/dL (70-99) 142 mg/dL (70-99) Test 03/22/19 19:58 03/22/19 21:06 03/22/19 23:21 03/23/19 01:22 Glucose (Fingerstick) 141 mg/dL (70-99) 155 mg/dL (70-99) 150 mg/dL (70-99) 143 mg/dL (70-99) Test 03/23/19 03:28 03/23/19 04:33 03/23/19 05:23 03/23/19 06:19 Glucose (Fingerstick) 129 mg/dL (70-99) 126 mg/dL (70-99) 120 mg/dL (70-99) 131 mg/dL (70-99) Test 03/23/19 07:30 03/23/19 07:48 03/23/19 08:30 03/23/19 08:57 O2 Saturation 94 % (92-99) Arterial Blood pH 7.44 (7.35-7.45) Arterial Blood pCO2 at Patient Temp 49 mmHg (35-46) Arterial Blood pO2 at Patient Temp 70 mmHg (75-108) Arterial Blood HCO3 33 mmol/L (21-28) Arterial Blood Base Excess 7 mmol/L (-3-3) FiO2 40 Glucose (Fingerstick) 140 mg/dL (70-99) 167 mg/dL (70-99) White Blood Count 11.4 x10^3/uL (4.0-11.0) Red Blood Count 3.81 x10^6/uL (4.30-5.70) Hemoglobin 11.5 g/dL (13.0-17.5) Hematocrit 35.6 % (39.0-53.0) Mean Corpuscular Volume 93 fL (79-100) Mean Corpuscular Hemoglobin 30 pg (25-35) Mean Corpuscular Hemoglobin Concent 32 g/dL (31-37) Red Cell Distribution Width 14.5 % (11.5-14.5) Platelet Count 313 x10^3/uL (140-400) Sodium Level 150 mmol/L (136-145) Potassium Level 3.3 mmol/L (3.5-5.1) Chloride Level 107 mmol/L (98-107) Carbon Dioxide Level 32 mmol/L (21-32) Anion Gap 11 (6-14) Blood Urea Nitrogen 103 mg/dL (8-26) Creatinine 1.7 mg/dL (0.7-1.3) Estimated GFR (Cockcroft-Gault) 41.9 Glucose Level 165 mg/dL (70-99) Calcium Level 8.2 mg/dL (8.5-10.1) Phosphorus Level 4.9 mg/dL (2.6-4.7) Albumin 2.1 g/dL (3.4-5.0) Test 03/23/19 09:59 03/23/19 11:07 03/23/19 12:09 03/23/19 13:12 Glucose (Fingerstick) 153 mg/dL (70-99) 146 mg/dL (70-99) 135 mg/dL (70-99) 145 mg/dL (70-99) Test 03/23/19 14:21 03/23/19 16:24 03/23/19 18:27 03/23/19 19:32 Glucose (Fingerstick) 154 mg/dL (70-99) 140 mg/dL (70-99) 170 mg/dL (70-99) 166 mg/dL (70-99) Test 03/23/19 21:20 03/23/19 23:00 03/24/19 01:32 03/24/19 02:53 Glucose (Fingerstick) 171 mg/dL (70-99) 154 mg/dL (70-99) 135 mg/dL (70-99) 159 mg/dL (70-99) Test 03/24/19 05:35 03/24/19 07:20 03/24/19 07:30 03/24/19 09:39 Sodium Level 151 mmol/L (136-145) Potassium Level 3.1 mmol/L (3.5-5.1) Chloride Level 110 mmol/L (98-107) Carbon Dioxide Level 32 mmol/L (21-32) Anion Gap 9 (6-14) Blood Urea Nitrogen 111 mg/dL (8-26) Creatinine 1.4 mg/dL (0.7-1.3) Estimated GFR (Cockcroft-Gault) 52.4 Glucose Level 152 mg/dL (70-99) Glucose (Fingerstick) 133 mg/dL (70-99) 138 mg/dL (70-99) 175 mg/dL (70-99) Calcium Level 8.5 mg/dL (8.5-10.1) Phosphorus Level 5.2 mg/dL (2.6-4.7) Albumin 2.0 g/dL (3.4-5.0) O2 Saturation 91 % (92-99) Arterial Blood pH 7.42 (7.35-7.45) Arterial Blood pCO2 at Patient Temp 47 mmHg (35-46) Arterial Blood pO2 at Patient Temp 62 mmHg (75-108) Arterial Blood HCO3 30 mmol/L (21-28) Arterial Blood Base Excess 4 mmol/L (-3-3) FiO2 50 Test 03/24/19 10:34 Glucose (Fingerstick) 161 mg/dL (70-99) Laboratory Tests Test 03/23/19 12:09 03/23/19 13:12 03/23/19 14:21 03/23/19 16:24 Glucose (Fingerstick) 135 mg/dL (70-99) 145 mg/dL (70-99) 154 mg/dL (70-99) 140 mg/dL (70-99) Test 03/23/19 18:27 03/23/19 19:32 03/23/19 21:20 03/23/19 23:00 Glucose (Fingerstick) 170 mg/dL (70-99) 166 mg/dL (70-99) 171 mg/dL (70-99) 154 mg/dL (70-99) Test 03/24/19 01:32 03/24/19 02:53 03/24/19 05:35 03/24/19 07:20 Glucose (Fingerstick) 135 mg/dL (70-99) 159 mg/dL (70-99) 133 mg/dL (70-99) Sodium Level 151 mmol/L (136-145) Potassium Level 3.1 mmol/L (3.5-5.1) Chloride Level 110 mmol/L (98-107) Carbon Dioxide Level 32 mmol/L (21-32) Anion Gap 9 (6-14) Blood Urea Nitrogen 111 mg/dL (8-26) Creatinine 1.4 mg/dL (0.7-1.3) Estimated GFR (Cockcroft-Gault) 52.4 Glucose Level 152 mg/dL (70-99) Calcium Level 8.5 mg/dL (8.5-10.1) Phosphorus Level 5.2 mg/dL (2.6-4.7) Albumin 2.0 g/dL (3.4-5.0) O2 Saturation 91 % (92-99) Arterial Blood pH 7.42 (7.35-7.45) Arterial Blood pCO2 at Patient Temp 47 mmHg (35-46) Arterial Blood pO2 at Patient Temp 62 mmHg (75-108) Arterial Blood HCO3 30 mmol/L (21-28) Arterial Blood Base Excess 4 mmol/L (-3-3) FiO2 50 Test 03/24/19 07:30 03/24/19 09:39 03/24/19 10:34 Glucose (Fingerstick) 138 mg/dL (70-99) 175 mg/dL (70-99) 161 mg/dL (70-99) Medications Active Scripts Medications Dose Route/Sig Max Daily Dose Days Date Category Proair Hfa Inhaler (Albuterol Sulfate) 8.5 Gm Hfa.aer.ad 1 Puff INH PRN Q6HRS PRN 02/27/19 Reported Lantus Solostar (Insulin Glargine,Hum.rec.anlog) 100 Unit/1 Ml Insuln.pen 20 Unit SQ QHS 02/27/19 Reported Humalog (Insulin Lispro) 100 Unit/1 Ml Cartridge 6 Unit SQ TIDWMEALS 02/27/19 Reported Doxazosin Mesylate 2 Mg Tablet 2 Mg PO DAILY 02/27/19 Reported Omeprazole 40 Mg Capsule.dr 40 Mg PO DAILY 02/27/19 Reported Amlodipine Besylate 10 Mg Tablet 10 Mg PO DAILY 02/27/19 Reported Atorvastatin Calcium 20 Mg Tablet 20 Mg PO DAILY 02/27/19 Reported Atenolol 50 Mg Tablet 50 Mg PO DAILY 02/27/19 Reported Losartan Potassium 100 Mg Tablet 100 Mg PO DAILY 02/27/19 Reported Aspirin 81 Mg Tab.chew 81 Mg PO DAILY 02/27/19 Reported Glyburide 5 Mg Tablet 1 Tab PO BID 11/09/16 Reported Active Scripts Medications Dose Route/Sig Max Daily Dose Days Date Category Proair Hfa Inhaler (Albuterol Sulfate) 8.5 Gm Hfa.aer.ad 1 Puff INH PRN Q6HRS PRN 02/27/19 Reported Lantus Solostar (Insulin Glargine,Hum.rec.anlog) 100 Unit/1 Ml Insuln.pen 20 Unit SQ QHS 02/27/19 Reported Humalog (Insulin Lispro) 100 Unit/1 Ml Cartridge 6 Unit SQ TIDWMEALS 02/27/19 Reported Doxazosin Mesylate 2 Mg Tablet 2 Mg PO DAILY 02/27/19 Reported Omeprazole 40 Mg Capsule.dr 40 Mg PO DAILY 02/27/19 Reported Amlodipine Besylate 10 Mg Tablet 10 Mg PO DAILY 02/27/19 Reported Atorvastatin Calcium 20 Mg Tablet 20 Mg PO DAILY 02/27/19 Reported Atenolol 50 Mg Tablet 50 Mg PO DAILY 02/27/19 Reported Losartan Potassium 100 Mg Tablet 100 Mg PO DAILY 02/27/19 Reported Aspirin 81 Mg Tab.chew 81 Mg PO DAILY 02/27/19 Reported Glyburide 5 Mg Tablet 1 Tab PO BID 11/09/16 Reported Active Scripts Medications Dose Route/Sig Max Daily Dose Days Date Category Proair Hfa Inhaler (Albuterol Sulfate) 8.5 Gm Hfa.aer.ad 1 Puff INH PRN Q6HRS PRN 02/27/19 Reported Lantus Solostar (Insulin Glargine,Hum.rec.anlog) 100 Unit/1 Ml Insuln.pen 20 Unit SQ QHS 02/27/19 Reported Humalog (Insulin Lispro) 100 Unit/1 Ml Cartridge 6 Unit SQ TIDWMEALS 02/27/19 Reported Doxazosin Mesylate 2 Mg Tablet 2 Mg PO DAILY 02/27/19 Reported Omeprazole 40 Mg Capsule.dr 40 Mg PO DAILY 02/27/19 Reported Amlodipine Besylate 10 Mg Tablet 10 Mg PO DAILY 02/27/19 Reported Atorvastatin Calcium 20 Mg Tablet 20 Mg PO DAILY 02/27/19 Reported Atenolol 50 Mg Tablet 50 Mg PO DAILY 02/27/19 Reported Losartan Potassium 100 Mg Tablet 100 Mg PO DAILY 02/27/19 Reported Aspirin 81 Mg Tab.chew 81 Mg PO DAILY 02/27/19 Reported Glyburide 5 Mg Tablet 1 Tab PO BID 11/09/16 Reported Impression . Acute hypoxemic /hypercapnic respiratory failure./ ARDS sepsis./ ARDS In-house cardiopulmonary arrest. Normal EF / mild Pulmonary HTN Acute on chronic right-sided heart failure. Morbid obesity. Diabetes uncontrolled Abnormal CXR/ susperimposed CHF right effusion 03/18, effusion better 03/20 but infiltrates worse Plan . Acute hypoxemic /hypercapnic respiratory failure./ ARDS * cont nebs/PRN suctioning * cont. A/C mode, PEEP at 11 * cont. solumedrol * follow ABG/CXR: hypoxic on ABG FIO2 increased and CXR worse today WILL MONITOR FOR NOW * NEEDS A TRACH WILL CONSULT SURGEON MAYBE A FEW DAYS PRIOR TO BEING STABLE ENOUGH TO GO TO OR D/W DR Burton Sepsis/ ARDS * ABX per ID * supportive care as above * follow cultures LEONARD * cr. peaked at 3.2 * Cr. is now 1.4 * nephrology following * avoid nephrotoxic medications Cardiac Arrest * ECHO 60-65%, PAP 33-38 * Diuresis * monitor KCL Acute on chronic right-sided heart failure * Diuresis * cardiology following Hypernatremia * Na+151 * continue free water flushes, added D5 gtt * renal following Elevated gastric residuals * Reglan lula. * TF per dietary recs Diabetes uncontrolled * cont. insulin gtt * add Lantus BID D/W RT PT. is DNR MAGO NI MD Mar 24, 2019 11:15
--- NOTE | 2019-03-24 11:18 | RAD ---
Portable chest x-ray compared to similar study dated 03/23/2019 for respiratory failure. FINDINGS: Bilateral pleural effusions have worsened. Endotracheal tube, enteric tube, and right PICC line are unchanged. IMPRESSION: 1. Worsening large bilateral pleural effusions. Underlying diffuse pulmonary edema remains. Electronically signed by: Esequiel Montoya MD (03/24/2019 11:15 AM) [id number]
--- NOTE | 2019-03-24 11:47 | PDOC ---
Renal-Progress Notes Subjective Notes Notes REMAINS INTUBATED History of Present Illness Hx of present illness STABLE Vitals Vitals Vital Signs Date Time Temp Pulse Resp B/P (MAP) Pulse Ox O2 Delivery O2 Flow Rate FiO2 03/24/19 11:00 73 22 153/74 (100) 93 Ventilator 03/24/19 08:00 97.7 97.7 03/23/19 18:35 40.0 Weight Weight [ ] Stability Assess. Stability Assess.: other (intubated ) I.O. Intake and Output Intake and Output 03/24/19 07:00 Intake Total 6640 ml Output Total 4360 ml Balance 2280 ml IV Total 2788 ml Tube Feeding 3702 ml Other 150 ml Output Urine Total 4360 ml Gastric Drainage Total 0 ml # Bowel Movements 1 Labs Labs Laboratory Tests Test 03/23/19 12:09 03/23/19 13:12 03/23/19 14:21 03/23/19 16:24 Glucose (Fingerstick) 135 mg/dL (70-99) 145 mg/dL (70-99) 154 mg/dL (70-99) 140 mg/dL (70-99) Test 03/23/19 18:27 03/23/19 19:32 03/23/19 21:20 03/23/19 23:00 Glucose (Fingerstick) 170 mg/dL (70-99) 166 mg/dL (70-99) 171 mg/dL (70-99) 154 mg/dL (70-99) Test 03/24/19 01:32 03/24/19 02:53 03/24/19 05:35 03/24/19 07:20 Glucose (Fingerstick) 135 mg/dL (70-99) 159 mg/dL (70-99) 133 mg/dL (70-99) Sodium Level 151 mmol/L (136-145) Potassium Level 3.1 mmol/L (3.5-5.1) Chloride Level 110 mmol/L (98-107) Carbon Dioxide Level 32 mmol/L (21-32) Anion Gap 9 (6-14) Blood Urea Nitrogen 111 mg/dL (8-26) Creatinine 1.4 mg/dL (0.7-1.3) Estimated GFR (Cockcroft-Gault) 52.4 Glucose Level 152 mg/dL (70-99) Calcium Level 8.5 mg/dL (8.5-10.1) Phosphorus Level 5.2 mg/dL (2.6-4.7) Albumin 2.0 g/dL (3.4-5.0) O2 Saturation 91 % (92-99) Arterial Blood pH 7.42 (7.35-7.45) Arterial Blood pCO2 at Patient Temp 47 mmHg (35-46) Arterial Blood pO2 at Patient Temp 62 mmHg (75-108) Arterial Blood HCO3 30 mmol/L (21-28) Arterial Blood Base Excess 4 mmol/L (-3-3) FiO2 50 Test 03/24/19 07:30 03/24/19 09:39 03/24/19 10:34 Glucose (Fingerstick) 138 mg/dL (70-99) 175 mg/dL (70-99) 161 mg/dL (70-99) Micro Micro Microbiology 03/05/19 Blood Culture - Final, Complete NO GROWTH AFTER 5 DAYS 03/08/19 - Final, Complete 03/08/19 - Final, Complete 03/08/19 - Final, Complete 03/08/19 Gram Stain Evaluation - Final, Complete 03/08/19 Sputum Culture - Final, Complete 03/08/19 Sputum Result 1 - Final, Complete 03/02/19 Urine Culture - Final, Complete 03/02/19 Urine Culture Result 1 (LUCIO) - Final, Complete 03/09/19 Aerobic Culture - Final, Complete 03/09/19 Aerobic Culture Result 1 (LUCIO) - Final, Complete 03/09/19 Gram Stain - Final, Complete 03/09/19 Gram Stain Result 1 (LUCIO) - Final, Complete 03/09/19 Gram Stain Result 2 (LUCIO) - Final, Complete Review of Systems Constitutional: yes: unresponsive, other (INTUBATED AND SEDATED) Physical Exam General Appearance: other (SEDATED) Skin: warm Respiratory: decreased breath sounds Heart: S1S2 Abdomen: soft, N/T, bowel sounds present Genitourinary: bladder flat Extremities: pulses present Neurology: other (sedated) Assessment Assessment IMP LEONARD-BETTER WITH CR DOWN TO 1.4 ANASARCA-PERSISTS BUT BETTER HYPERNATREMIA-NA OF 151 EXTRACELLULAR VOLUME DEPLETION WITH BUN OF 111 ACUTE HYPERCARBIC RESP FAILURE-FIO2 DOWN TO 40% NOW SCROTAL EDEMA DUE TO ANASARCA-BETTER RIGHT RENAL MASS PROB PNEUMONIA PROB SEPSIS PROB RIGHT SIDED CHF WITH DIASTOLIC DYSFUNCTION MORBID OBESITY MALNUTRITION PLAN ANTIBIOTICS VENT SUPPORT HOLD LASIX EVAL RENAL MASS LATER CONT TF AND DECREASE FREE WATER DUE TO INCREASING RESIDUALS INCREASE FREE WATER WILL FOLLOW D/W DEEPTHI BROWN MD Mar 24, 2019 11:47
[2019-03-24] MEDS: PROPOFOL 100 ML IV PRN ×2 (12:45→19:51)
[2019-03-24] MEDS: METOCLOPRAMIDE HCL 10 MG/2 ML VIAL. IV SCH ×2 (13:18→21:31)
[2019-03-24] MEDS: MIDAZOLAM 100mg/100ml NS BAG 100 ML IV PRN (14:39)
[2019-03-24] MEDS: INSULIN GLARGINE 300 UNITS/3 ML INSULN.PEN. SQ SCH (21:32)
[2019-03-25] VITALS (24 sets, daily range): BP systolic 105–164; BP diastolic 66–79
[2019-03-25 00:18] LABS: HEMOGLOBIN A1C 7.3 % (4.8-5.6)
[2019-03-25] MEDS: METOPROLOL TARTRATE 5 MG/5 ML VIAL. IVP SCH ×4 (00:24→17:37)
[2019-03-25] MEDS: dilTIAZem HCL 30 MG TABLET PO SCH ×4 (00:24→17:37)
[2019-03-25] MEDS: PROPOFOL 100 ML IV PRN ×2 (03:37→11:18)
[2019-03-25] MEDS: INSULIN REGULAR VIAL 150 UNIT in 0.9 % SODIUM CHLORIDE 150ML 150 ML IV PRN ×3 (03:51→19:51)
[2019-03-25] MEDS: IV DEXTROSE 5% 1,000 ML IV SCH ×3 (05:37→20:51)
[2019-03-25] MEDS: METOCLOPRAMIDE HCL 10 MG/2 ML VIAL. IV SCH ×3 (05:37→21:22)
[2019-03-25] MEDS: methylPREDNISolone SOD SUCC PF 125 MG/2 ML VIAL. IV SCH ×3 (05:37→21:22)
[2019-03-25] MEDS: FUROSEMIDE 100 MG/10 ML VIAL. IVP SCH (05:37)
[2019-03-25] MEDS: HEPARIN for SUB-Q USE 5,000 UNIT/ML VIAL. SQ SCH ×3 (05:39→21:23)
[2019-03-25 05:54] LABS: BASO # 0.1 x10^3/uL (0.0-0.2); BASO % 1 % (0-3); EOS % 0 % (0-3); HEMATOCRIT 33.9 % (39.0-53.0); LYMPH # 0.8 x10^3/uL (1.0-4.8); LYMPH % 8 % (24-48); MEAN CORPUSCULAR HEMOGLOBIN 30 pg (25-35); MEAN CORPUSCULAR HGB CONC 32 g/dL (31-37); MEAN CORPUSCULAR VOLUME 93 fL (79-100); MONO # 0.3 x10^3/uL (0.0-1.1); MONO % 3 % (0-9); NEUT # 8.6 x10^3uL (1.8-7.7); NEUT % 89 % (31-73); PLATELET COUNT 266 x10^3/uL (140-400); RED BLOOD COUNT 3.65 x10^6/uL (4.30-5.70); RED CELL DISTRIBUTION WIDTH 13.9 % (11.5-14.5); WHITE BLOOD COUNT 9.7 x10^3/uL (4.0-11.0)
[2019-03-25 06:15] LABS: ALBUMIN 1.9 g/dL (3.4-5.0); CALCIUM 7.9 mg/dL (8.5-10.1); CREATININE 1.1 mg/dL (0.7-1.3); GFR 69.2; MAGNESIUM 2.8 mg/dL (1.8-2.4); PHOSPHORUS 4.6 mg/dL (2.6-4.7); POTASSIUM 3.1 mmol/L (3.5-5.1)
[2019-03-25] MEDS: IPRATRPIUM/ALBUTEROL 0.5/2.5MG 3 ML NEBU. NEB SCH ×4 (07:44→19:20)
[2019-03-25] MEDS ORDERED: POTASSIUM CHLORIDE 20 MEQ/15 ML ORAL LIQUID. PEG ONE (08:15)
--- NOTE | 2019-03-25 08:16 | PDOC2 ---
CONSULT Date of Consult Date of Consult DATE: 03/25/19 TIME: 08:06 Reason for Consult Reason for Consult: Ventilator dependent respiratory failure Referring Physician Referring Physician: Dr Kaur Identification/Chief Complaint Chief Complaint Respiratory failure Source Source: Chart review, Patient History of Present Illness Reason for Visit: 58-year-old male who presented approximately 25 days ago with respiratory failur e most likely secondary to CHF exacerbation. He was also found to be in renal failure upon admission, although his renal function has now recovered. He has history of diabetes and peripheral vascular disease s/p right BKA. He was intubated on admission, and remains on the ventilator ever since with high ventilator settings throughout his hospitalization. He is currently on an FiO2 40% and PEEP of 11 and appears to be oxygenating and ventilating adequately. He is normotensive and in sinus rhythm. At present there are no infectious concerns. Past Medical History Cardiovascular: HTN Endocrine: Diabetes Past Surgical History Past Surgical History: Tonsillectomy, Other (right BKA) Family History Family History: Diabetes, Hypertension, Osteo Arthiritis Social History No ALCOHOL: none Drugs: None Lives: Roommate Current Problem List Problem List Problems Medical Problems: (1) Acute renal failure Status: Acute (2) Edema Status: Acute (3) Shortness of breath Status: Acute Current Medications Current Medications Current Medications Ondansetron HCl (Zofran) 4 mg PRN Q8HRS PRN IV NAUSEA/VOMITING; Start 02/27/19 at 16:45; Stop 02/28/19 at 16:44; Status DC Morphine Sulfate (Morphine Sulfate) 2 mg PRN Q2HR PRN IV PAIN; Start 02/27/19 at 16:45; Stop 02/28/19 at 16:44; Status DC Acetaminophen (Tylenol) 650 mg PRN Q4HRS PRN PO FEVER Last administered on 02/27/19at 21:06; Start 02/27/19 at 16:45; Stop 02/28/19 at 16:44; Status DC Dextrose (Dextrose 50%-Water Syringe) 12.5 gm PRN Q15MIN PRN IV SEE COMMENTS; Start 02/27/19 at 16:45; Stop 03/10/19 at 13:48; Status DC Heparin Sodium (Porcine) (Heparin Sodium) 5,000 unit Q8HRS SQ Last administered on 03/25/19at 05:39; Start 02/27/19 at 17:00 Lorazepam (Ativan) 1 mg PRN Q8HRS PRN IV ANXIETY / AGITATION Last administered on 03/08/19at 03:37; Start 02/28/19 at 02:45 Etomidate (Amidate) 20 mg STK-MED ONCE IV ; Start 02/28/19 at 06:59; Stop 02/28/19 at 07:00; Status DC Rocuronium [place] (Zemuron) 50 mg STK-MED ONCE .ROUTE ; Start 02/28/19 at 07:00; Stop 02/28/19 at 09:42; Status DC Dopamine HCl/ Dextrose 250 ml @ 12.266 mls/ hr CONT PRN IV SEE I/O RECORD Last administered on 02/28/19at 08:06; Start 02/28/19 at 07:15; Stop 03/17/19 at 15:50; Status DC Fentanyl Citrate 30 ml @ 0 mls/hr CONT PRN IV SEE PROTOCOL; Start 02/28/19 at 07:15; Stop 02/28/19 at 07:59; Status DC Propofol 100 ml @ 0 mls/hr CONT PRN IV SEE PROTOCOL; Start 02/28/19 at 07:15; Stop 02/28/19 at 07:59; Status DC Fentanyl Citrate (Fentanyl 2ml Vial) 25 mcg PRN Q1HR PRN IV SEE COMMENTS; Start 02/28/19 at 07:15; Stop 02/28/19 at 07:59; Status DC Fentanyl Citrate (Fentanyl 2ml Vial) 50 mcg PRN Q1HR PRN IV SEE COMMENTS; Start 02/28/19 at 07:15; Stop 02/28/19 at 07:59; Status DC Midazolam HCl 100 ml @ 0 mls/hr CONT PRN IV SEE PROTOCOL Last administered on 03/24/19at 14:39; Start 02/28/19 at 07:15 Sodium Chloride 1,000 ml @ 1,000 mls/hr Q1H IV Last administered on 02/28/19at 07:32; Start 02/28/19 at 07:32; Stop 02/28/19 at 10:09; Status DC Fentanyl Citrate (Fentanyl 2ml Vial) 25 mcg PRN Q30MIN PRN IV see comments; Start 02/28/19 at 07:45; Stop 02/28/19 at 09:42; Status DC Lorazepam (Ativan) 1 mg PRN Q30MIN PRN IV SEDATION; Start 02/28/19 at 07:45; Stop 02/28/19 at 09:42; Status DC Fentanyl Citrate 30 ml @ 2.5 mls/hr CONT PRN PRN IV SEE I/O RECORD Last administered on 03/05/19at 03:44; Start 02/28/19 at 07:45; Stop 03/05/19 at 04:40; Status DC Propofol 100 ml @ 0 mls/hr CONT PRN IV SEE I/O RECORD Last administered on 03/25/19at 03:37; Start 02/28/19 at 07:45 Vecuronium [place] (Norcuron Bolus) 10 mg PRN Q30MIN PRN IV SHIVERING; Start 02/28/19 at 07:45; Stop 02/28/19 at 09:42; Status DC Meperidine HCl (Demerol) 12.5 mg PRN Q30MIN PRN IV SHIVERING; Start 02/28/19 at 07:45; Stop 02/28/19 at 09:42; Status DC Multi-Ingred Cream/Lotion/Oil/ Oint (Artificial Tears Eye Ointment) 1 jennifer PRN Q6HRS PRN OU 0.5 INCH FOR DRY EYE; Start 02/28/19 at 07:45; Stop 02/28/19 at 09:42; Status DC Famotidine (Pepcid Vial) 20 mg BID IVP Last administered on 02/28/19at 11:03; Start 02/28/19 at 09:00; Stop 02/28/19 at 14:25; Status DC Aspirin (Aspirin) 300 mg DAILY VA ; Start 02/28/19 at 09:00; Stop 02/28/19 at 09:42; Status DC Sodium Chloride (Normal Saline Flush) 3 ml QSHIFT PRN IV AFTER MEDS AND BLOOD DRAWS; Start 02/28/19 at 07:45 Acetaminophen (Tylenol) 650 mg Q6HRS NG ; Start 02/28/19 at 12:00; Stop 02/28/19 at 12:00; Status DC Acetaminophen (Tylenol Supp) 650 mg PRN Q6HRS PRN VA MILD PAIN / TEMP; Start 03/01/19 at 07:45; Stop 03/01/19 at 07:45; Status DC Acetaminophen (Tylenol) 650 mg PRN Q6HRS PRN NG MILD PAIN / TEMP; Start 03/01/19 at 07:45; Stop 03/01/19 at 07:45; Status DC Info (Icu Electrolyte Protocol) 1 ea DAILY PRN MC PER PROTOCOL; Start 03/02/19 at 07:45; Stop 03/02/19 at 07:45; Status DC Furosemide (Lasix) 60 mg 1X ONCE IVP Last administered on 02/28/19at 08:30; Start 02/28/19 at 08:30; Stop 02/28/19 at 08:31; Status DC Ceftriaxone Sodium (Rocephin) 1 gm Q24H IVP Last administered on 02/28/19at 11:03; Start 02/28/19 at 11:00; Stop 02/28/19 at 11:18; Status DC Calcium Chloride 1000 mg/Dextrose 60 ml @ 120 mls/hr 1X ONCE IV Last administered on 02/28/19at 11:03; Start 02/28/19 at 10:30; Stop 02/28/19 at 10:59; Status DC Meropenem 500 mg/ Sodium Chloride 50 ml @ 100 mls/hr Q8HRS IV Last admin istered on 03/03/19at 06:24; Start 02/28/19 at 14:00; Stop 03/03/19 at 07:04; Status DC Linezolid/Dextrose 300 ml @ 300 mls/hr Q12HR IV Last administered on 03/03/19at 20:00; Start 02/28/19 at 11:30; Stop 03/04/19 at 08:55; Status DC Micafungin Sodium 100 mg/Dextrose 100 ml @ 100 mls/hr Q24H IV Last administered on 03/04/19at 15:53; Start 02/28/19 at 12:00; Stop 03/05/19 at 06:47; Status DC Furosemide (Lasix) 40 mg BID92 IVP Last administered on 03/02/19at 14:06; Start 02/28/19 at 14:00; Stop 03/02/19 at 17:02; Status DC Famotidine (Pepcid Vial) 20 mg QHS IVP Last administered on 03/01/19at 21:24; Start 02/28/19 at 21:00; Stop 03/02/19 at 10:07; Status DC Albuterol/ Ipratropium (Duoneb) 3 ml RTQID NEB Last administered on 03/25/19at 07:44; Start 02/28/19 at 16:00 Haloperidol Lactate (Haldol Inj) 5 mg PRN Q6HRS PRN IVP AGITATION 2ND CHOICE Last administered on 03/09/19 14:07; Start 02/28/19 at 15:15 Vecuronium [place] (Norcuron Bolus) 8 mg PRN Q4HRS PRN IV MUSCLE SPASMS Last administered on 03/12/19 23:48; Start 02/28/19 at 15:15 Perflutren Protein Type A Microsphe (Optison) 0.66 mg PRN 1X PRN IV SEE COMMENTS; Start 03/01/19 at 10:00; Stop 03/02/19 at 09:59; Status DC Digoxin (Lanoxin) 125 mcg 1X STAT IV ; Start 03/01/19 at 15:34; Stop 03/01/19 at 16:00; Status DC Sodium Chloride 500 ml @ 500 mls/hr 1X ONCE IV Last administered on 03/01/19at 18:46; Start 03/01/19 at 18:45; Stop 03/01/19 at 19:44; Status DC Famotidine (Pepcid Vial) 20 mg Q12HR IVP Last administered on 03/24/19at 21:31; Start 03/02/19 at 21:00 Furosemide (Lasix) 40 mg DAILY IVP Last administered on 03/04/19 09:52; Start 03/03/19 at 09:00; Stop 03/04/19 at 12:13; Status DC Acetaminophen (Tylenol Supp) 650 mg PRN Q6HRS PRN [place] MILD PAIN / TEMP Last administered on 03/03/19 17:39; Start 03/02/19 at 17:15 Meropenem 500 mg/ Sodium Chloride 50 ml @ 100 mls/hr Q6HRS IV Last administered on 03/05/19 05:33; Start 03/03/19 at 12:00; Stop 03/05/19 at 06:47; Status DC Albumin Human 100 ml @ 100 mls/hr 1X ONCE IV Last administered on 03/03/19 08:52; Start 03/03/19 at 08:30; Stop 03/03/19 at 09:29; Status DC Atropine Sulfate (ATROPINE 0.5mg SYRINGE) 2 mg STK-MED ONCE .ROUTE ; Start 02/27/19 at 16:21; Stop 03/03/19 at 16:22; Status DC Dopamine HCl/ Dextrose (DOPamine 400MG/ 250ML PREMIX) 400 mg STK-MED ONCE IV ; Start 02/27/19 at 16:21; Stop 03/03/19 at 16:22; Status DC Furosemide (Lasix) 40 mg 1X ONCE IVP Last administered on 03/03/19 18:46; Start 03/03/19 at 18:45; Stop 03/03/19 at 18:46; Status DC Lorazepam 100 mg/ Sodium Chloride 100 ml @ 0 mls/hr CONT PRN IV SEE PROTOCOL Last administered on 03/03/19 22:18; Start 03/03/19 at 22:00; Stop 03/17/19 at 15:39; Status DC Acetaminophen (Tylenol) 650 mg PRN Q6HRS PRN PEG MILD PAIN / TEMP Last administered on 03/10/19 20:48; Start 03/04/19 at 11:45 Furosemide (Lasix) 40 mg BID92 IVP Last administered on 03/06/19 08:38; Start 03/04/19 at 14:00; Stop 03/06/19 at 13:30; Status DC Fentanyl Citrate 30 ml @ 0 mls/hr CONT PRN IV SEE PROTOCOL Last administered on 03/25/19 01:12; Start 03/05/19 at 04:45 Cefepime HCl (Maxipime) 2 gm Q8HRS IVP Last administered on 03/10/19 05:43; Start 03/05/19 at 06:45; Stop 03/10/19 at 08:29; Status DC Metronidazole 100 ml @ 100 mls/hr Q8HRS IV Last administered on 03/10/19 05:45; Start 03/05/19 at 06:45; Stop 03/10/19 at 08:29; Status DC Linezolid/Dextrose 300 ml @ 300 mls/hr Q12HR IV Last administered on 03/05/19 21:24; Start 03/05/19 at 09:00; Stop 03/06/19 at 06:42; Status DC Metoclopramide HCl (Reglan Vial) 10 mg QIDACHS IV Last administered on 03/06/19 20:43; Start 03/05/19 at 11:30; Stop 03/07/19 at 07:37; Status DC Insulin Glargine (Lantus) 12 units BID SQ Last administered on 03/09/19 09:29; Start 03/05/19 at 09:00; Stop 03/09/19 at 17:11; Status DC Digoxin (Lanoxin) 500 mcg 1X ONCE IV Last administered on 03/06/19 00:48; Start 03/06/19 at 00:45; Stop 03/06/19 at 00:46; Status DC Metoprolol Tartrate (Lopressor Vial) 5 mg 1X ONCE IVP Last administered on 03/06/19 00:53; Start 03/06/19 at 00:45; Stop 03/06/19 at 00:46; Status DC Sodium Chloride 500 ml @ 500 mls/hr 1X ONCE IV Last administered on 03/06/19 00:49; Start 03/06/19 at 00:45; Stop 03/06/19 at 01:44; Status DC Nystatin (Mycostatin) 1 jennifer BID TP Last administered on 03/24/19 21:32; Start 03/06/19 at 09:00 Sodium Cl/Sod Bicarb/Potass Cl/ PEG (Golytely) 2,000 ml 1X ONCE PO Last administered on 03/06/19 09:33; Start 03/06/19 at 08:00; Stop 03/06/19 at 08:01; Status DC Furosemide (Lasix) 40 mg DAILY08 IVP Last administered on 03/09/19 09:27; Start 03/07/19 at 08:00; Stop 03/09/19 at 12:45; Status DC Metoprolol Tartrate (Lopressor Vial) 10 mg 1X ONCE IVP Last administered on 03/06/19 16:08; Start 03/06/19 at 15:15; Stop 03/06/19 at 15:16; Status DC Metoprolol Tartrate (Lopressor Vial) 5 mg Q6HRS IVP Last administered on 03/07/19at 17:03; Start 03/06/19 at 18:00; Stop 03/07/19 at 18:27; Status DC Aspirin (Children'S Aspirin) 81 mg 1X ONCE PO Last administered on 03/06/19at 18:18; Start 03/06/19 at 17:00; Stop 03/06/19 at 17:01; Status DC Aspirin (Children'S Aspirin) 81 mg DAILYWBKFT PO Last administered on 03/24/19at 10:32; Start 03/07/19 at 08:00 Labetalol HCl (Normodyne Iv Push) 20 mg PRN Q2HR PRN IVP HYPERTENSION, SEE COMMENTS Last administered on 03/06/19at 21:29; Start 03/06/19 at 17:15 Digoxin (Lanoxin) 250 mcg 1X ONCE IV Last administered on 03/06/19 22:00; Start 03/06/19 at 22:00; Stop 03/06/19 at 22:01; Status DC Diltiazem HCl 125 mg/Dextrose 125 ml @ 5 mls/hr CONT PRN IV SEE I/O RECORD Last administered on 03/12/19at 08:20; Start 03/06/19 at 23:00; Stop 03/12/19 at 11:03; Status DC Metoclopramide HCl (Reglan Vial) 10 mg Q6HRS IV ; Start 03/07/19 at 08:00; Stop 03/08/19 at 07:51; Status DC Metoprolol Tartrate (Lopressor Vial) 5 mg Q6HRS IVP Last administered on 03/25/19at 00:24; Start 03/08/19 at 12:00 Furosemide (Lasix) 40 mg 1X ONCE IVP Last administered on 03/08/19at 21:21; Start 03/08/19 at 21:00; Stop 03/08/19 at 21:01; Status DC Furosemide (Lasix) 20 mg DAILY08 IVP ; Start 03/10/19 at 08:00; Stop 03/10/19 at 08:00; Status DC Furosemide (Lasix) 20 mg DAILY08 IVP Last administered on 03/14/19at 07:41; Start 03/10/19 at 08:00; Stop 03/15/19 at 07:32; Status DC Insulin Glargine (Lantus) 16 units BID SQ Last administered on 03/12/19at 00:09; Start 03/09/19 at 21:00; Stop 03/12/19 at 07:18; Status DC Insulin Human Lispro (HumaLOG) 0-9 UNITS Q6HRS SQ Last administered on 03/12/19at 05:45; Start 03/09/19 at 18:00; Stop 03/12/19 at 07:18; Status DC Dextrose (Dextrose 50%-Water Syringe) 12.5 gm PRN Q15MIN PRN IV SEE COMMENTS; Start 03/09/19 at 17:15; Stop 03/21/19 at 10:07; Status DC Cefepime HCl (Maxipime) 2 gm Q12HR IVP Last administered on 03/21/19at 08:26; Start 03/10/19 at 21:00; Stop 03/21/19 at 12:48; Status DC Insulin Human Lispro (HumaLOG) 15 units 1X ONCE SQ Last administered on 03/11/19at 00:14; Start 03/11/19 at 00:00; Stop 03/11/19 at 00:01; Status DC Insulin Glargine (Lantus) 20 units BID SQ Last administered on 03/17/19at 08:32; Start 03/12/19 at 09:00; Stop 03/17/19 at 10:46; Status DC Insulin Human Lispro (HumaLOG) 0-9 UNITS Q6HRS SQ Last administered on 03/21/19at 06:35; Start 03/12/19 at 12:00; Stop 03/21/19 at 10:00; Status DC Diltiazem HCl (Cardizem) 30 mg Q6HRS PO Last administered on 03/25/19at 05:38; Start 03/12/19 at 12:00 Furosemide (Lasix) 20 mg 1X ONCE IVP Last administered on 03/13/19at 11:04; Start 03/13/19 at 10:30; Stop 03/13/19 at 10:31; Status DC Furosemide (Lasix) 20 mg 1X ONCE IVP Last administered on 03/14/19at 07:40; Start 03/14/19 at 07:15; Stop 03/14/19 at 14:05; Status DC Furosemide (Lasix) 40 mg Q8HRS IVP Last administered on 03/17/19at 05:49; Start 03/14/19 at 22:00; Stop 03/17/19 at 10:58; Status DC Albuterol Sulfate (Ventolin Neb Soln) 2.5 mg 1X ONCE NEB Last administered on 03/16/19at 04:00; Start 03/16/19 at 04:00; Stop 03/16/19 at 04:01; Status DC Methylprednisolone Sodium Succinate (SOLU-Medrol 40MG VIAL) 80 mg 1X ONCE IV Last administered on 03/16/19at 04:17; Start 03/16/19 at 04:30; Stop 03/16/19 at 04:31; Status DC Furosemide (Lasix) 20 mg 1X ONCE IVP Last administered on 03/16/19at 04:17; Start 03/16/19 at 04:30; Stop 03/16/19 at 04:31; Status DC Insulin Glargine (Lantus) 25 units BID SQ Last administered on 03/21/19at 08:55; Start 03/17/19 at 21:00; Stop 03/21/19 at 10:00; Status DC Insulin Human Lispro (HumaLOG) 10 units Q6HRS SQ ; Start 03/17/19 at 12:00; Stop 03/17/19 at 13:32; Status DC Furosemide (Lasix) 40 mg QD IVP Last administered on 03/18/19at 05:55; Start 03/18/19 at 06:00; Stop 03/18/19 at 10:54; Status DC Insulin Human Lispro (HumaLOG) 3 units Q6HRS SQ Last administered on 03/19/19at 06:12; Start 03/17/19 at 18:00; Stop 03/19/19 at 08:28; Status DC Azithromycin 250 mg/Sodium Chloride 250 ml @ 250 mls/hr Q24H IV Last administered on 03/23/19at 08:13; Start 03/18/19 at 08:00; Stop 03/23/19 at 16:23; Status DC Alteplase, Recombinant (Cathflo For Central Catheter Clearance) 1 mg 1X ONCE INT CAT Last administered on 03/18/19at 09:21; Start 03/18/19 at 07:30; Stop 03/18/19 at 07:31; Status DC Alteplase, Recombinant (Cathflo For Central Catheter Clearance) 1 mg 1X ONCE INT CAT Last administered on 03/18/19at 11:04; Start 03/18/19 at 07:30; Stop 03/18/19 at 07:31; Status DC Alteplase, Recombinant (Cathflo For Central Catheter Clearance) 1 mg 1X ONCE INT CAT Last administered on 03/18/19at 13:26; Start 03/18/19 at 07:30; Stop 03/18/19 at 07:31; Status DC Furosemide (Lasix) 60 mg 1X ONCE IVP Last administered on 03/18/19at 11:04; Start 03/18/19 at 10:54; Stop 03/18/19 at 10:55; Status DC Furosemide (Lasix) 40 mg Q8HRS IVP ; Start 03/18/19 at 14:00; Stop 03/18/19 at 17:53; Status DC Digoxin (Lanoxin) 250 mcg 1X ONCE IV Last administered on 03/18/19at 15:48; Start 03/18/19 at 15:30; Stop 03/18/19 at 15:33; Status DC Furosemide (Lasix) 40 mg Q8HRS IVP Last administered on 03/20/19at 05:42; Start 03/18/19 at 20:00; Stop 03/20/19 at 08:48; Status DC Digoxin (Lanoxin) 500 mcg 1X ONCE IV Last administered on 03/18/19at 19:35; Start 03/18/19 at 20:00; Stop 03/18/19 at 20:01; Status DC Insulin Human Lispro (HumaLOG) 6 units Q6HRS SQ Last administered on 03/20/19at 05:45; Start 03/19/19 at 12:00; Stop 03/20/19 at 08:48; Status DC Furosemide (Lasix) 80 mg Q8HRS IVP Last administered on 03/22/19at 12:43; Start 03/20/19 at 14:00; Stop 03/22/19 at 17:00; Status DC Insulin Human Lispro (HumaLOG) 9 units Q6HRS SQ Last administered on 03/21/19at 06:36; Start 03/20/19 at 12:00; Stop 03/21/19 at 10:00; Status DC Methylprednisolone Sodium Succinate (SOLU-Medrol 125MG VIAL) 80 mg Q8HRS IV Last administered on 03/25/19 05:37; Start 03/20/19 at 11:00 Alteplase, Recombinant (Cathflo For Central Catheter Clearance) 1 mg 1X ONCE INT CAT Last administered on 03/20/19at 20:23; Start 03/20/19 at 20:00; Stop 03/20/19 at 20:09; Status DC Alteplase, Recombinant (Cathflo For Central Catheter Clearance) 1 mg 1X ONCE INT CAT Last administered on 03/20/19at 20:23; Start 03/20/19 at 20:00; Stop 03/20/19 at 20:09; Status DC Alteplase, Recombinant (Cathflo For Central Catheter Clearance) 1 mg 1X ONCE INT CAT Last administered on 03/20/19 20:23; Start 03/20/19 at 20:00; Stop 03/20/19 at 20:09; Status DC Insulin Human Regular 150 unit/ Sodium Chloride 151.5 ml @ 0 mls/hr CONT PRN IV SEE I/O RECORD Last administered on 03/25/19at 03:51; Start 03/21/19 at 10:00 Dextrose (Dextrose 50%-Water Syringe) 12.5 gm PRN Q15MIN PRN IV LOW BLOOD SUGAR; Start 03/21/19 at 10:00 Furosemide (Lasix) 80 mg DAILY06 IVP Last administered on 03/25/19 05:37; St art 03/23/19 at 06:00 Potassium Chloride (KCl Oral Soln) 40 meq 1X ONCE PEG Last administered on 03/22/19at 17:14; Start 03/22/19 at 17:30; Stop 03/22/19 at 17:31; Status DC Metoclopramide HCl (Reglan Vial) 10 mg PRN Q6HRS PRN IV NAUSEA/VOMITING Last administered on 03/24/19 11:02; Start 03/23/19 at 10:30; Stop 03/24/19 at 11:04; Status DC Dextrose 1,000 ml @ 125 mls/hr Q8H IV Last administered on 03/25/19 05:37; Start 03/23/19 at 11:15 Potassium Chloride (KCl Oral Soln) 40 meq 1X ONCE PEG Last administered on 03/24/19at 10:32; Start 03/24/19 at 08:30; Stop 03/24/19 at 08:31; Status DC Metoclopramide HCl (Reglan Vial) 10 mg Q8HRS IV Last administered on 03/25/19at 05:37; Start 03/24/19 at 14:00 Insulin Glargine (Lantus) 10 units BID SQ Last administered on 03/24/19at 21:32; Start 03/24/19 at 21:00 Active Scripts Active Reported Proair Hfa Inhaler (Albuterol Sulfate) 8.5 Gm Hfa.aer.ad 1 Puff INH PRN Q6HRS PRN Lantus Solostar (Insulin Glargine,Hum.rec.anlog) 100 Unit/1 Ml Insuln.pen 20 Unit SQ QHS Humalog (Insulin Lispro) 100 Unit/1 Ml Cartridge 6 Unit SQ TIDWMEALS Doxazosin Mesylate 2 Mg Tablet 2 Mg PO DAILY Omeprazole 40 Mg Capsule.dr 40 Mg PO DAILY Amlodipine Besylate 10 Mg Tablet 10 Mg PO DAILY Atorvastatin Calcium 20 Mg Tablet 20 Mg PO DAILY Atenolol 50 Mg Tablet 50 Mg PO DAILY Losartan Potassium 100 Mg Tablet 100 Mg PO DAILY Aspirin 81 Mg Tab.chew 81 Mg PO DAILY Glyburide 5 Mg Tablet 1 Tab PO BID Allergies Allergies: Coded Allergies: No Known Drug Allergies (Unverified , 11/09/16) ROS Review of System Unable to obtain, patient intubated and sedated Physical Exam General: Other (intubated sedated) HEENT: Atraumatic, PERRLA, Other (anatomic landmarks of the neck identified) Heart: Regular rate, Normal S1, Normal S2, No murmurs Abdomen: No tenderness Skin: No significant lesion Neuro: Normal gait, Normal speech, Strength at 5/5 X4 ext, Normal tone, Sensation intact, Cranial nerves 3-12 NL, Reflexes 2+ Psych/Mental Status: Mental status NL MUSCULOSKELETAL: No deformity Vitals VITALS Vital Signs Date Time Temp Pulse Resp B/P (MAP) Pulse Ox O2 Delivery O2 Flow Rate FiO2 03/25/19 07:44 92 Ventilator 03/25/19 06:00 68 22 124/66 (85) 03/25/19 04:00 98.5 98.5 03/24/19 19:52 40.0 Labs Labs Laboratory Tests Test 03/23/19 08:30 03/23/19 08:57 03/23/19 09:59 03/23/19 11:07 White Blood Count 11.4 x10^3/uL (4.0-11.0) Red Blood Count 3.81 x10^6/uL (4.30-5.70) Hemoglobin 11.5 g/dL (13.0-17.5) Hematocrit 35.6 % (39.0-53.0) Mean Corpuscular Volume 93 fL (79-100) Mean Corpuscular Hemoglobin 30 pg (25-35) Mean Corpuscular Hemoglobin Concent 32 g/dL (31-37) Red Cell Distribution Width 14.5 % (11.5-14.5) Platelet Count 313 x10^3/uL (140-400) Sodium Level 150 mmol/L (136-145) Potassium Level 3.3 mmol/L (3.5-5.1) Chloride Level 107 mmol/L (98-107) Carbon Dioxide Level 32 mmol/L (21-32) Anion Gap 11 (6-14) Blood Urea Nitrogen 103 mg/dL (8-26) Creatinine 1.7 mg/dL (0.7-1.3) Estimated GFR (Cockcroft-Gault) 41.9 Glucose Level 165 mg/dL (70-99) Calcium Level 8.2 mg/dL (8.5-10.1) Phosphorus Level 4.9 mg/dL (2.6-4.7) Albumin 2.1 g/dL (3.4-5.0) Glucose (Fingerstick) 167 mg/dL (70-99) 153 mg/dL (70-99) 146 mg/dL (70-99) Test 03/23/19 12:09 03/23/19 13:12 03/23/19 14:21 03/23/19 16:24 Glucose (Fingerstick) 135 mg/dL (70-99) 145 mg/dL (70-99) 154 mg/dL (70-99) 140 mg/dL (70-99) Test 03/23/19 18:27 03/23/19 19:32 03/23/19 21:20 03/23/19 23:00 Glucose (Fingerstick) 170 mg/dL (70-99) 166 mg/dL (70-99) 171 mg/dL (70-99) 154 mg/dL (70-99) Test 03/24/19 01:32 03/24/19 02:53 03/24/19 05:35 03/24/19 07:20 Glucose (Fingerstick) 135 mg/dL (70-99) 159 mg/dL (70-99) 133 mg/dL (70-99) Sodium Level 151 mmol/L (136-145) Potassium Level 3.1 mmol/L (3.5-5.1) Chloride Level 110 mmol/L (98-107) Carbon Dioxide Level 32 mmol/L (21-32) Anion Gap 9 (6-14) Blood Urea Nitrogen 111 mg/dL (8-26) Creatinine 1.4 mg/dL (0.7-1.3) Estimated GFR (Cockcroft-Gault) 52.4 Glucose Level 152 mg/dL (70-99) Hemoglobin A1c 7.3 % (4.8-5.6) Calcium Level 8.5 mg/dL (8.5-10.1) Phosphorus Level 5.2 mg/dL (2.6-4.7) Albumin 2.0 g/dL (3.4-5.0) O2 Saturation 91 % (92-99) Arterial Blood pH 7.42 (7.35-7.45) Arterial Blood pCO2 at Patient Temp 47 mmHg (35-46) Arterial Blood pO2 at Patient Temp 62 mmHg (75-108) Arterial Blood HCO3 30 mmol/L (21-28) Arterial Blood Base Excess 4 mmol/L (-3-3) FiO2 50 Test 03/24/19 07:30 03/24/19 09:39 03/24/19 10:34 03/24/19 12:13 Glucose (Fingerstick) 138 mg/dL (70-99) 175 mg/dL (70-99) 161 mg/dL (70-99) 173 mg/dL (70-99) Test 03/24/19 13:21 03/24/19 14:42 03/24/19 15:45 03/24/19 17:04 Glucose (Fingerstick) 174 mg/dL (70-99) 156 mg/dL (70-99) 143 mg/dL (70-99) 137 mg/dL (70-99) Test 03/24/19 17:55 03/24/19 18:59 03/24/19 20:02 03/24/19 21:21 Glucose (Fingerstick) 128 mg/dL (70-99) 123 mg/dL (70-99) 131 mg/dL (70-99) 120 mg/dL (70-99) Test 03/24/19 22:24 03/24/19 23:32 03/25/19 00:26 03/25/19 01:31 Glucose (Fingerstick) 117 mg/dL (70-99) 127 mg/dL (70-99) 117 mg/dL (70-99) 128 mg/dL (70-99) Test 03/25/19 02:30 03/25/19 03:35 03/25/19 04:37 03/25/19 05:30 Glucose (Fingerstick) 122 mg/dL (70-99) 143 mg/dL (70-99) 130 mg/dL (70-99) White Blood Count 9.7 x10^3/uL (4.0-11.0) Red Blood Count 3.65 x10^6/uL (4.30-5.70) Hemoglobin 11.0 g/dL (13.0-17.5) Hematocrit 33.9 % (39.0-53.0) Mean Corpuscular Volume 93 fL (79-100) Mean Corpuscular Hemoglobin 30 pg (25-35) Mean Corpuscular Hemoglobin Concent 32 g/dL (31-37) Red Cell Distribution Width 13.9 % (11.5-14.5) Platelet Count 266 x10^3/uL (140-400) Neutrophils (%) (Auto) 89 % (31-73) Lymphocytes (%) (Auto) 8 % (24-48) Monocytes (%) (Auto) 3 % (0-9) Eosinophils (%) (Auto) 0 % (0-3) Basophils (%) (Auto) 1 % (0-3) Neutrophils # (Auto) 8.6 x10^3uL (1.8-7.7) Lymphocytes # (Auto) 0.8 x10^3/uL (1.0-4.8) Monocytes # (Auto) 0.3 x10^3/uL (0.0-1.1) Eosinophils # (Auto) 0.0 x10^3/uL (0.0-0.7) Basophils # (Auto) 0.1 x10^3/uL (0.0-0.2) Sodium Level 149 mmol/L (136-145) Potassium Level 3.1 mmol/L (3.5-5.1) Chloride Level 108 mmol/L (98-107) Carbon Dioxide Level 32 mmol/L (21-32) Anion Gap 9 (6-14) Blood Urea Nitrogen 96 mg/dL (8-26) Creatinine 1.1 mg/dL (0.7-1.3) Estimated GFR (Cockcroft-Gault) 69.2 Glucose Level 155 mg/dL (70-99) Calcium Level 7.9 mg/dL (8.5-10.1) Phosphorus Level 4.6 mg/dL (2.6-4.7) Magnesium Level 2.8 mg/dL (1.8-2.4) Albumin 1.9 g/dL (3.4-5.0) Test 03/25/19 05:31 03/25/19 06:43 03/25/19 07:46 Glucose (Fingerstick) 128 mg/dL (70-99) 162 mg/dL (70-99) 161 mg/dL (70-99) Laboratory Tests Test 03/24/19 09:39 03/24/19 10:34 03/24/19 12:13 03/24/19 13:21 Glucose (Fingerstick) 175 mg/dL (70-99) 161 mg/dL (70-99) 173 mg/dL (70-99) 174 mg/dL (70-99) Test 03/24/19 14:42 03/24/19 15:45 03/24/19 17:04 03/24/19 17:55 Glucose (Fingerstick) 156 mg/dL (70-99) 143 mg/dL (70-99) 137 mg/dL (70-99) 128 mg/dL (70-99) Test 03/24/19 18:59 03/24/19 20:02 03/24/19 21:21 03/24/19 22:24 Glucose (Fingerstick) 123 mg/dL (70-99) 131 mg/dL (70-99) 120 mg/dL (70-99) 117 mg/dL (70-99) Test 03/24/19 23:32 03/25/19 00:26 03/25/19 01:31 03/25/19 02:30 Glucose (Fingerstick) 127 mg/dL (70-99) 117 mg/dL (70-99) 128 mg/dL (70-99) 122 mg/dL (70-99) Test 03/25/19 03:35 03/25/19 04:37 03/25/19 05:30 03/25/19 05:31 Glucose (Fingerstick) 143 mg/dL (70-99) 130 mg/dL (70-99) 128 mg/dL (70-99) White Blood Count 9.7 x10^3/uL (4.0-11.0) Red Blood Count 3.65 x10^6/uL (4.30-5.70) Hemoglobin 11.0 g/dL (13.0-17.5) Hematocrit 33.9 % (39.0-53.0) Mean Corpuscular Volume 93 fL (79-100) Mean Corpuscular Hemoglobin 30 pg (25-35) Mean Corpuscular Hemoglobin Concent 32 g/dL (31-37) Red Cell Distribution Width 13.9 % (11.5-14.5) Platelet Count 266 x10^3/uL (140-400) Neutrophils (%) (Auto) 89 % (31-73) Lymphocytes (%) (Auto) 8 % (24-48) Monocytes (%) (Auto) 3 % (0-9) Eosinophils (%) (Auto) 0 % (0-3) Basophils (%) (Auto) 1 % (0-3) Neutrophils # (Auto) 8.6 x10^3uL (1.8-7.7) Lymphocytes # (Auto) 0.8 x10^3/uL (1.0-4.8) Monocytes # (Auto) 0.3 x10^3/uL (0.0-1.1) Eosinophils # (Auto) 0.0 x10^3/uL (0.0-0.7) Basophils # (Auto) 0.1 x10^3/uL (0.0-0.2) Sodium Level 149 mmol/L (136-145) Potassium Level 3.1 mmol/L (3.5-5.1) Chloride Level 108 mmol/L (98-107) Carbon Dioxide Level 32 mmol/L (21-32) Anion Gap 9 (6-14) Blood Urea Nitrogen 96 mg/dL (8-26) Creatinine 1.1 mg/dL (0.7-1.3) Estimated GFR (Cockcroft-Gault) 69.2 Glucose Level 155 mg/dL (70-99) Calcium Level 7.9 mg/dL (8.5-10.1) Phosphorus Level 4.6 mg/dL (2.6-4.7) Magnesium Level 2.8 mg/dL (1.8-2.4) Albumin 1.9 g/dL (3.4-5.0) Test 03/25/19 06:43 03/25/19 07:46 Glucose (Fingerstick) 162 mg/dL (70-99) 161 mg/dL (70-99) Assessment/Plan Assessment/Plan 58-year-old male who presented approximately 25 days ago with respiratory failure most likely secondary to CHF exacerbation. He was also found to be in renal failure upon admission, although his renal function has now recovered. He has history of diabetes and peripheral vascular disease s/p right BKA. He was intubated on admission, and remains on the ventilator ever since with high ventilator settings throughout his hospitalization. He is currently on an FiO2 40% and PEEP of 11 and appears to be oxygenating and ventilating adequately. He is normotensive and in sinus rhythm. At present there are no infectious concerns. The patient certainly warrants a tracheostomy. His current vent settings though are somewhat high. His current PEEP is 11, and ideally PEEP should be closer to 8 before proceeding with an elective tracheostomy. Nevertheless I'm willing to p roceed with tracheostomy tomorrow or on Saturday, given that he is able to tolerate a lower PEEP. His sister has been actively involved in his care, although it is unknown if she is his legal guardian. Not show will provide consent for tracheostomy. Nursing staff and older adult social work specialist work on this today. Will also need to reverse his DNR status in the operating room. Will tentatively schedule tracheostomy for tomorrow afternoon at 1 PM, given that his PEEP is reduced and legal guardianship is confirmed. Hold tube feeds after midnight Will need an active type and screen Repeat coags (INR/PTT) HEATHER ZAVALA MD Mar 25, 2019 08:15
[2019-03-25] MEDS: ASPIRIN CHEWABLE 81 MG TABLET. PO SCH (08:49)
--- NOTE | 2019-03-25 08:52 | NUR ---
SS following up with discharge planning. Continuing to await Trach placement at this time. SS phoned and faxed clinical updates to [facility], ; fax [phone].
[2019-03-25 08:53] LABS: BASE EXCESS ABG 3 mmol/L (-3-3); HCO3 ABG 29 mmol/L (21-28); PCO2 ABG 45 mmHg (35-46); PO2 ABG 69 mmHg (75-108); SAT O2 ABG 93 % (92-99)
[2019-03-25] MEDS: FAMOTIDINE 20 MG/2 ML VIAL IVP SCH ×2 (08:59→20:50)
[2019-03-25] MEDS: INSULIN GLARGINE 300 UNITS/3 ML INSULN.PEN. SQ SCH ×2 (09:00→20:49)
[2019-03-25] MEDS: NYSTATIN 100,000 UNIT/GM TOPICAL CREAM 15GM TUBE. TP SCH ×2 (09:01→20:43)
[2019-03-25] MEDS: MIDAZOLAM 100mg/100ml NS BAG 100 ML IV PRN (09:02)
[2019-03-25 09:30] LABS: % LYMPHS 4 % (24-48); % SEGS 96 % (35-66); PLT ESTIMATE ADEQUATE (ADEQUATE)
--- NOTE | 2019-03-25 09:39 | PDOC ---
PROGRESS NOTES Chief Complaint Chief Complaint ARDS Acute respiratory failure secondary to congestive heart failure,ARDS Hypernatremia secondary to severe dehydration . High residuals on tube feedings no evidence of obstructive pattern on x ray done 03/05/2019 Bilateral general scrotal swelling and tenderness. Dm2 obesity, extreme, morbid hx RLE BKA RLE stump with chronic wound. left foot nail onychomycosis Acute renal failure ATN chronic venous insuff left lower leg Bilateral lower lobe consolidation concerning for multifocal pneumonia Right renal hypodensity measuring 2.5 cm Anasarca. bilateral external iliac lymphadenopathy Trace tricuspid regurgitation. Estimated PAP 33-38 mmHg. Diastolic CHF Hypernatremia History of Present Illness History of Present Illness Same On 3 sedations, fentanyl, propofol, Versed Soft belly, no reports of high residuals today PEEP pressures 10 with FiO2 50% Lasix down to 80 once a day-was getting 3 times a day-overdiuresis and? Good UO otherwise, NOT hypotensive with high PEEP - now down to 10 NA 141- started on dextrose IVF 125 by renal and now on insulin gtt at 22 units/hr K 3.0 planned for trach tomorrow Plan: Consult for possible PEG while trach tomorrow Continue dextrose IVF and insulin Vent per pulmo- 40 KCl twice a day since hypokalemia is persistent So Far no residuals today Discussed with MATERIAL REQUISITIONER Vitals Vitals Vital Signs Date Time Temp Pulse Resp B/P (MAP) Pulse Ox O2 Delivery O2 Flow Rate FiO2 03/25/19 09:01 92 40.0 03/25/19 08:08 Mechanical Ventilator 03/25/19 06:00 68 22 124/66 (85) 03/25/19 04:00 98.5 98.5 Physical Exam Physical Exam GENERAL: Sedated and intubated. HEENT: Pupils equal, ETT. OGT LUNGS: Diminished HEART: S1, S2. regular ABDOMEN: Obese, distended, decreased bowel sounds, no grimace or guarding to palpation GENITOURINARY: [place] - less scrotal edema but still present EXTREMITIES: Generalized anasarca. RLE stump with chronic wound. No erythema/fluctuance/warmth. no cyanosis SKIN: Warm to touch. AIRPORT GUIDE: Unresponsive/sedated on vent RUE-PICC (03/09) clean General: Other (intubated sedated) Heart: Regular rate, Normal S1, Normal S2, No murmurs Lungs: Crackles, Other ( decraesed BLL) Abdomen: No tenderness Extremities: No clubbing, No cyanosis, Other (1+ EDEMA) Skin: No significant lesion Labs LABS Laboratory Tests Test 03/24/19 09:39 03/24/19 10:34 03/24/19 12:13 03/24/19 13:21 Glucose (Fingerstick) 175 mg/dL (70-99) 161 mg/dL (70-99) 173 mg/dL (70-99) 174 mg/dL (70-99) Test 03/24/19 14:42 03/24/19 15:45 03/24/19 17:04 03/24/19 17:55 Glucose (Fingerstick) 156 mg/dL (70-99) 143 mg/dL (70-99) 137 mg/dL (70-99) 128 mg/dL (70-99) Test 03/24/19 18:59 03/24/19 20:02 03/24/19 21:21 03/24/19 22:24 Glucose (Fingerstick) 123 mg/dL (70-99) 131 mg/dL (70-99) 120 mg/dL (70-99) 117 mg/dL (70-99) Test 03/24/19 23:32 03/25/19 00:26 03/25/19 01:31 03/25/19 02:30 Glucose (Fingerstick) 127 mg/dL (70-99) 117 mg/dL (70-99) 128 mg/dL (70-99) 122 mg/dL (70-99) Test 03/25/19 03:35 03/25/19 04:37 03/25/19 05:30 03/25/19 05:31 Glucose (Fingerstick) 143 mg/dL (70-99) 130 mg/dL (70-99) 128 mg/dL (70-99) White Blood Count 9.7 x10^3/uL (4.0-11.0) Red Blood Count 3.65 x10^6/uL (4.30-5.70) Hemoglobin 11.0 g/dL (13.0-17.5) Hematocrit 33.9 % (39.0-53.0) Mean Corpuscular Volume 93 fL (79-100) Mean Corpuscular Hemoglobin 30 pg (25-35) Mean Corpuscular Hemoglobin Concent 32 g/dL (31-37) Red Cell Distribution Width 13.9 % (11.5-14.5) Platelet Count 266 x10^3/uL (140-400) Neutrophils (%) (Auto) 89 % (31-73) Lymphocytes (%) (Auto) 8 % (24-48) Monocytes (%) (Auto) 3 % (0-9) Eosinophils (%) (Auto) 0 % (0-3) Basophils (%) (Auto) 1 % (0-3) Neutrophils # (Auto) 8.6 x10^3uL (1.8-7.7) Lymphocytes # (Auto) 0.8 x10^3/uL (1.0-4.8) Monocytes # (Auto) 0.3 x10^3/uL (0.0-1.1) Eosinophils # (Auto) 0.0 x10^3/uL (0.0-0.7) Basophils # (Auto) 0.1 x10^3/uL (0.0-0.2) Segmented Neutrophils % 96 % (35-66) Lymphocytes % 4 % (24-48) Platelet Estimate Adequate (ADEQUATE) Sodium Level 149 mmol/L (136-145) Potassium Level 3.1 mmol/L (3.5-5.1) Chloride Level 108 mmol/L (98-107) Carbon Dioxide Level 32 mmol/L (21-32) Anion Gap 9 (6-14) Blood Urea Nitrogen 96 mg/dL (8-26) Creatinine 1.1 mg/dL (0.7-1.3) Estimated GFR (Cockcroft-Gault) 69.2 Glucose Level 155 mg/dL (70-99) Calcium Level 7.9 mg/dL (8.5-10.1) Phosphorus Level 4.6 mg/dL (2.6-4.7) Magnesium Level 2.8 mg/dL (1.8-2.4) Albumin 1.9 g/dL (3.4-5.0) Test 03/25/19 06:43 03/25/19 07:46 03/25/19 08:50 Glucose (Fingerstick) 162 mg/dL (70-99) 161 mg/dL (70-99) 166 mg/dL (70-99) Review of Systems Review of Systems intubated, sedated Assessment and Plan Assessmemt and Plan Problems Medical Problems: (1) Acute renal failure Status: Acute (2) Edema Status: Acute (3) Shortness of breath Status: Acute Comment Review of Relevant I have reviewed the following items pascual (where applicable) has been applied. Labs Laboratory Tests Test 03/23/19 09:59 03/23/19 11:07 03/23/19 12:09 03/23/19 13:12 Glucose (Fingerstick) 153 mg/dL (70-99) 146 mg/dL (70-99) 135 mg/dL (70-99) 145 mg/dL (70-99) Test 03/23/19 14:21 03/23/19 16:24 03/23/19 18:27 03/23/19 19:32 Glucose (Fingerstick) 154 mg/dL (70-99) 140 mg/dL (70-99) 170 mg/dL (70-99) 166 mg/dL (70-99) Test 03/23/19 21:20 03/23/19 23:00 03/24/19 01:32 03/24/19 02:53 Glucose (Fingerstick) 171 mg/dL (70-99) 154 mg/dL (70-99) 135 mg/dL (70-99) 159 mg/dL (70-99) Test 03/24/19 05:35 03/24/19 07:20 03/24/19 07:30 03/24/19 09:39 Sodium Level 151 mmol/L (136-145) Potassium Level 3.1 mmol/L (3.5-5.1) Chloride Level 110 mmol/L (98-107) Carbon Dioxide Level 32 mmol/L (21-32) Anion Gap 9 (6-14) Blood Urea Nitrogen 111 mg/dL (8-26) Creatinine 1.4 mg/dL (0.7-1.3) Estimated GFR (Cockcroft-Gault) 52.4 Glucose Level 152 mg/dL (70-99) Glucose (Fingerstick) 133 mg/dL (70-99) 138 mg/dL (70-99) 175 mg/dL (70-99) Hemoglobin A1c 7.3 % (4.8-5.6) Calcium Level 8.5 mg/dL (8.5-10.1) Phosphorus Level 5.2 mg/dL (2.6-4.7) Albumin 2.0 g/dL (3.4-5.0) O2 Saturation 91 % (92-99) Arterial Blood pH 7.42 (7.35-7.45) Arterial Blood pCO2 at Patient Temp 47 mmHg (35-46) Arterial Blood pO2 at Patient Temp 62 mmHg (75-108) Arterial Blood HCO3 30 mmol/L (21-28) Arterial Blood Base Excess 4 mmol/L (-3-3) FiO2 50 Test 03/24/19 10:34 03/24/19 12:13 03/24/19 13:21 03/24/19 14:42 Glucose (Fingerstick) 161 mg/dL (70-99) 173 mg/dL (70-99) 174 mg/dL (70-99) 156 mg/dL (70-99) Test 03/24/19 15:45 03/24/19 17:04 03/24/19 17:55 03/24/19 18:59 Glucose (Fingerstick) 143 mg/dL (70-99) 137 mg/dL (70-99) 128 mg/dL (70-99) 123 mg/dL (70-99) Test 03/24/19 20:02 03/24/19 21:21 03/24/19 22:24 03/24/19 23:32 Glucose (Fingerstick) 131 mg/dL (70-99) 120 mg/dL (70-99) 117 mg/dL (70-99) 127 mg/dL (70-99) Test 03/25/19 00:26 03/25/19 01:31 03/25/19 02:30 03/25/19 03:35 Glucose (Fingerstick) 117 mg/dL (70-99) 128 mg/dL (70-99) 122 mg/dL (70-99) 143 mg/dL (70-99) Test 03/25/19 04:37 03/25/19 05:30 03/25/19 05:31 03/25/19 06:43 Glucose (Fingerstick) 130 mg/dL (70-99) 128 mg/dL (70-99) 162 mg/dL (70-99) White Blood Count 9.7 x10^3/uL (4.0-11.0) Red Blood Count 3.65 x10^6/uL (4.30-5.70) Hemoglobin 11.0 g/dL (13.0-17.5) Hematocrit 33.9 % (39.0-53.0) Mean Corpuscular Volume 93 fL (79-100) Mean Corpuscular Hemoglobin 30 pg (25-35) Mean Corpuscular Hemoglobin Concent 32 g/dL (31-37) Red Cell Distribution Width 13.9 % (11.5-14.5) Platelet Count 266 x10^3/uL (140-400) Neutrophils (%) (Auto) 89 % (31-73) Lymphocytes (%) (Auto) 8 % (24-48) Monocytes (%) (Auto) 3 % (0-9) Eosinophils (%) (Auto) 0 % (0-3) Basophils (%) (Auto) 1 % (0-3) Neutrophils # (Auto) 8.6 x10^3uL (1.8-7.7) Lymphocytes # (Auto) 0.8 x10^3/uL (1.0-4.8) Monocytes # (Auto) 0.3 x10^3/uL (0.0-1.1) Eosinophils # (Auto) 0.0 x10^3/uL (0.0-0.7) Basophils # (Auto) 0.1 x10^3/uL (0.0-0.2) Segmented Neutrophils % 96 % (35-66) Lymphocytes % 4 % (24-48) Platelet Estimate Adequate (ADEQUATE) Sodium Level 149 mmol/L (136-145) Potassium Level 3.1 mmol/L (3.5-5.1) Chloride Level 108 mmol/L (98-107) Carbon Dioxide Level 32 mmol/L (21-32) Anion Gap 9 (6-14) Blood Urea Nitrogen 96 mg/dL (8-26) Creatinine 1.1 mg/dL (0.7-1.3) Estimated GFR (Cockcroft-Gault) 69.2 Glucose Level 155 mg/dL (70-99) Calcium Level 7.9 mg/dL (8.5-10.1) Phosphorus Level 4.6 mg/dL (2.6-4.7) Magnesium Level 2.8 mg/dL (1.8-2.4) Albumin 1.9 g/dL (3.4-5.0) Test 03/25/19 07:46 03/25/19 08:50 Glucose (Fingerstick) 161 mg/dL (70-99) 166 mg/dL (70-99) Laboratory Tests Test 03/24/19 09:39 03/24/19 10:34 03/24/19 12:13 03/24/19 13:21 Glucose (Fingerstick) 175 mg/dL (70-99) 161 mg/dL (70-99) 173 mg/dL (70-99) 174 mg/dL (70-99) Test 03/24/19 14:42 03/24/19 15:45 03/24/19 17:04 03/24/19 17:55 Glucose (Fingerstick) 156 mg/dL (70-99) 143 mg/dL (70-99) 137 mg/dL (70-99) 128 mg/dL (70-99) Test 03/24/19 18:59 03/24/19 20:02 03/24/19 21:21 03/24/19 22:24 Glucose (Fingerstick) 123 mg/dL (70-99) 131 mg/dL (70-99) 120 mg/dL (70-99) 117 mg/dL (70-99) Test 03/24/19 23:32 03/25/19 00:26 03/25/19 01:31 03/25/19 02:30 Glucose (Fingerstick) 127 mg/dL (70-99) 117 mg/dL (70-99) 128 mg/dL (70-99) 122 mg/dL (70-99) Test 03/25/19 03:35 03/25/19 04:37 03/25/19 05:30 03/25/19 05:31 Glucose (Fingerstick) 143 mg/dL (70-99) 130 mg/dL (70-99) 128 mg/dL (70-99) White Blood Count 9.7 x10^3/uL (4.0-11.0) Red Blood Count 3.65 x10^6/uL (4.30-5.70) Hemoglobin 11.0 g/dL (13.0-17.5) Hematocrit 33.9 % (39.0-53.0) Mean Corpuscular Volume 93 fL (79-100) Mean Corpuscular Hemoglobin 30 pg (25-35) Mean Corpuscular Hemoglobin Concent 32 g/dL (31-37) Red Cell Distribution Width 13.9 % (11.5-14.5) Platelet Count 266 x10^3/uL (140-400) Neutrophils (%) (Auto) 89 % (31-73) Lymphocytes (%) (Auto) 8 % (24-48) Monocytes (%) (Auto) 3 % (0-9) Eosinophils (%) (Auto) 0 % (0-3) Basophils (%) (Auto) 1 % (0-3) Neutrophils # (Auto) 8.6 x10^3uL (1.8-7.7) Lymphocytes # (Auto) 0.8 x10^3/uL (1.0-4.8) Monocytes # (Auto) 0.3 x10^3/uL (0.0-1.1) Eosinophils # (Auto) 0.0 x10^3/uL (0.0-0.7) Basophils # (Auto) 0.1 x10^3/uL (0.0-0.2) Segmented Neutrophils % 96 % (35-66) Lymphocytes % 4 % (24-48) Platelet Estimate Adequate (ADEQUATE) Sodium Level 149 mmol/L (136-145) Potassium Level 3.1 mmol/L (3.5-5.1) Chloride Level 108 mmol/L (98-107) Carbon Dioxide Level 32 mmol/L (21-32) Anion Gap 9 (6-14) Blood Urea Nitrogen 96 mg/dL (8-26) Creatinine 1.1 mg/dL (0.7-1.3) Estimated GFR (Cockcroft-Gault) 69.2 Glucose Level 155 mg/dL (70-99) Calcium Level 7.9 mg/dL (8.5-10.1) Phosphorus Level 4.6 mg/dL (2.6-4.7) Magnesium Level 2.8 mg/dL (1.8-2.4) Albumin 1.9 g/dL (3.4-5.0) Test 03/25/19 06:43 03/25/19 07:46 03/25/19 08:50 Glucose (Fingerstick) 162 mg/dL (70-99) 161 mg/dL (70-99) 166 mg/dL (70-99) Microbiology 03/05/19 Blood Culture - Final, Complete NO GROWTH AFTER 5 DAYS 03/08/19 - Final, Complete 03/08/19 - Final, Complete 03/08/19 - Final, Complete 03/08/19 Gram Stain Evaluation - Final, Complete 03/08/19 Sputum Culture - Final, Complete 03/08/19 Sputum Result 1 - Final, Complete 03/02/19 Urine Culture - Final, Complete 03/02/19 Urine Culture Result 1 (LUCIO) - Final, Complete 03/09/19 Aerobic Culture - Final, Complete 03/09/19 Aerobic Culture Result 1 (LUCIO) - Final, Complete 03/09/19 Gram Stain - Final, Complete 03/09/19 Gram Stain Result 1 (LUCIO) - Final, Complete 03/09/19 Gram Stain Result 2 (LUCIO) - Final, Complete Medications Current Medications Ondansetron HCl (Zofran) 4 mg PRN Q8HRS PRN IV NAUSEA/VOMITING; Start 02/27/19 at 16:45; Stop 02/28/19 at 16:44; Status DC Morphine Sulfate (Morphine Sulfate) 2 mg PRN Q2HR PRN IV PAIN; Start 02/27/19 at 16:45; Stop 02/28/19 at 16:44; Status DC Acetaminophen (Tylenol) 650 mg PRN Q4HRS PRN PO FEVER Last administered on 02/27/19at 21:06; Start 02/27/19 at 16:45; Stop 02/28/19 at 16:44; Status DC Dextrose (Dextrose 50%-Water Syringe) 12.5 gm PRN Q15MIN PRN IV SEE COMMENTS; Start 02/27/19 at 16:45; Stop 03/10/19 at 13:48; Status DC Heparin Sodium (Porcine) (Heparin Sodium) 5,000 unit Q8HRS SQ Last administered on 03/25/19at 05:39; Start 02/27/19 at 17:00 Lorazepam (Ativan) 1 mg PRN Q8HRS PRN IV ANXIETY / AGITATION Last administered on 03/08/19at 03:37; Start 02/28/19 at 02:45 Etomidate (Amidate) 20 mg STK-MED ONCE IV ; Start 02/28/19 at 06:59; Stop 02/28/19 at 07:00; Status DC Rocuronium Mcbrides (Zemuron) 50 mg STK-MED ONCE .ROUTE ; Start 02/28/19 at 07:00; Stop 02/28/19 at 09:42; Status DC Dopamine HCl/ Dextrose 250 ml @ 12.266 mls/ hr CONT PRN IV SEE I/O RECORD Last administered on 02/28/19at 08:06; Start 02/28/19 at 07:15; Stop 03/17/19 at 15:50; Status DC Fentanyl Citrate 30 ml @ 0 mls/hr CONT PRN IV SEE PROTOCOL; Start 02/28/19 at 07:15; Stop 02/28/19 at 07:59; Status DC Propofol 100 ml @ 0 mls/hr CONT PRN IV SEE PROTOCOL; Start 02/28/19 at 07:15; Stop 02/28/19 at 07:59; Status DC Fentanyl Citrate (Fentanyl 2ml Vial) 25 mcg PRN Q1HR PRN IV SEE COMMENTS; Start 02/28/19 at 07:15; Stop 02/28/19 at 07:59; Status DC Fentanyl Citrate (Fentanyl 2ml Vial) 50 mcg PRN Q1HR PRN IV SEE COMMENTS; Start 02/28/19 at 07:15; Stop 02/28/19 at 07:59; Status DC Midazolam HCl 100 ml @ 0 mls/hr CONT PRN IV SEE PROTOCOL Last administered on 03/25/19at 09:02; Start 02/28/19 at 07:15 Sodium Chloride 1,000 ml @ 1,000 mls/hr Q1H IV Last administered on 02/28/19at 07:32; Start 02/28/19 at 07:32; Stop 02/28/19 at 10:09; Status DC Fentanyl Citrate (Fentanyl 2ml Vial) 25 mcg PRN Q30MIN PRN IV see comments; Start 02/28/19 at 07:45; Stop 02/28/19 at 09:42; Status DC Lorazepam (Ativan) 1 mg PRN Q30MIN PRN IV SEDATION; Start 02/28/19 at 07:45; Stop 02/28/19 at 09:42; Status DC Fentanyl Citrate 30 ml @ 2.5 mls/hr CONT PRN PRN IV SEE I/O RECORD Last administered on 03/05/19at 03:44; Start 02/28/19 at 07:45; Stop 03/05/19 at 04:40; Status DC Propofol 100 ml @ 0 mls/hr CONT PRN IV SEE I/O RECORD Last administered on 03/25/19at 03:37; Start 02/28/19 at 07:45 Vecuronium Mcbrides (Norcuron Bolus) 10 mg PRN Q30MIN PRN IV SHIVERING; Start 02/28/19 at 07:45; Stop 02/28/19 at 09:42; Status DC Meperidine HCl (Demerol) 12.5 mg PRN Q30MIN PRN IV SHIVERING; Start 02/28/19 at 07:45; Stop 02/28/19 at 09:42; Status DC Multi-Ingred Cream/Lotion/Oil/ Oint (Artificial Tears Eye Ointment) 1 jennifer PRN Q6HRS PRN OU 0.5 INCH FOR DRY EYE; Start 02/28/19 at 07:45; Stop 02/28/19 at 09:42; Status DC Famotidine (Pepcid Vial) 20 mg BID IVP Last administered on 02/28/19at 11:03; Start 02/28/19 at 09:00; Stop 02/28/19 at 14:25; Status DC Aspirin (Aspirin) 300 mg DAILY KS ; Start 02/28/19 at 09:00; Stop 02/28/19 at 09:42; Status DC Sodium Chloride (Normal Saline Flush) 3 ml QSHIFT PRN IV AFTER MEDS AND BLOOD DRAWS; Start 02/28/19 at 07:45 Acetaminophen (Tylenol) 650 mg Q6HRS NG ; Start 02/28/19 at 12:00; Stop 02/28/19 at 12:00; Status DC Acetaminophen (Tylenol Supp) 650 mg PRN Q6HRS PRN [place] MILD PAIN / TEMP; Start 03/01/19 at 07:45; Stop 03/01/19 at 07:45; Status DC Acetaminophen (Tylenol) 650 mg PRN Q6HRS PRN NG MILD PAIN / TEMP; Start 03/01 at 07:45; Stop 03/01/19 at 07:45; Status DC Info (Icu Electrolyte Protocol) 1 ea DAILY PRN MC PER PROTOCOL; Start 03/02/19 at 07:45; Stop 03/02/19 at 07:45; Status DC Furosemide (Lasix) 60 mg 1X ONCE IVP Last administered on 02/28/19at 08:30; Start 02/28/19 at 08:30; Stop 02/28/19 at 08:31; Status DC Ceftriaxone Sodium (Rocephin) 1 gm Q24H IVP Last administered on 02/28/19at 11:03; Start 02/28/19 at 11:00; Stop 02/28/19 at 11:18; Status DC Calcium Chloride 1000 mg/Dextrose 60 ml @ 120 mls/hr 1X ONCE IV Last administered on 02/28/19at 11:03; Start 02/28/19 at 10:30; Stop 02/28/19 at 10:59; Status DC Meropenem 500 mg/ Sodium Chloride 50 ml @ 100 mls/hr Q8HRS IV Last administered on 03/03/19at 06:24; Start 02/28/19 at 14:00; Stop 03/03/19 at 07:04; Status DC Linezolid/Dextrose 300 ml @ 300 mls/hr Q12HR IV Last administered on 03/03/19at 20:00; Start 02/28/19 at 11:30; Stop 03/04/19 at 08:55; Status DC Micafungin Sodium 100 mg/Dextrose 100 ml @ 100 mls/hr Q24H IV Last administered on 03/04/19at 15:53; Start 02/28/19 at 12:00; Stop 03/05/19 at 06:47; Status DC Furosemide (Lasix) 40 mg [id number] IVP Last administered on 03/02/19at 14:06; Start 02/28/19 at 14:00; Stop 03/02/19 at 17:02; Status DC Famotidine (Pepcid Vial) 20 mg QHS IVP Last administered on 03/01/19at 21:24; Start 02/28/19 at 21:00; Stop 03/02/19 at 10:07; Status DC Albuterol/ Ipratropium (Duoneb) 3 ml RTQID NEB Last administered on 03/25/19at 07:44; Start 02/28/19 at 16:00 Haloperidol Lactate (Haldol Inj) 5 mg PRN Q6HRS PRN IVP AGITATION 2ND CHOICE Last administered on 03/09/19at 14:07; Start 02/28/19 at 15:15 Vecuronium Mcbrides (Norcuron Bolus) 8 mg PRN Q4HRS PRN IV MUSCLE SPASMS Last administered on 03/12/19at 23:48; Start 02/28/19 at 15:15 Perflutren Protein Type A Microsphe (Optison) 0.66 mg PRN 1X PRN IV SEE COMMENTS; Start 03/01/19 at 10:00; Stop 03/02/19 at 09:59; Status DC Digoxin (Lanoxin) 125 mcg 1X STAT IV ; Start 03/01/19 at 15:34; Stop 03/01/19 at 16:00; Status DC Sodium Chloride 500 ml @ 500 mls/hr 1X ONCE IV Last administered on 03/01/19at 18:46; Start 03/01/19 at 18:45; Stop 03/01/19 at 19:44; Status DC Famotidine (Pepcid Vial) 20 mg Q12HR IVP Last administered on 03/25/19at 08:59; Start 03/02/19 at 21:00 Furosemide (Lasix) 40 mg DAILY IVP Last administered on 03/04/19 09:52; Start 03/03/19 at 09:00; Stop 03/04/19 at 12:13; Status DC Acetaminophen (Tylenol Supp) 650 mg PRN Q6HRS PRN [place] MILD PAIN / TEMP Last administered on 03/03/19at 17:39; Start 03/02/19 at 17:15 Meropenem 500 mg/ Sodium Chloride 50 ml @ 100 mls/hr Q6HRS IV Last administered on 03/05/19 05:33; Start 03/03/19 at 12:00; Stop 03/05/19 at 06:47; Status DC Albumin Human 100 ml @ 100 mls/hr 1X ONCE IV Last administered on 03/03/19 08:52; Start 03/03/19 at 08:30; Stop 03/03/19 at 09:29; Status DC Atropine Sulfate (ATROPINE 0.5mg SYRINGE) 2 mg STK-MED ONCE .ROUTE ; Start 02/27/19 at 16:21; Stop 03/03/19 at 16:22; Status DC Dopamine HCl/ Dextrose (DOPamine 400MG/ 250ML PREMIX) 400 mg STK-MED ONCE IV ; Start 02/27/19 at 16:21; Stop 03/03/19 at 16:22; Status DC Furosemide (Lasix) 40 mg 1X ONCE IVP Last administered on 03/03/19 18:46; Start 03/03/19 at 18:45; Stop 03/03/19 at 18:46; Status DC Lorazepam 100 mg/ Sodium Chloride 100 ml @ 0 mls/hr CONT PRN IV SEE PROTOCOL Last administered on 03/03/19 22:18; Start 03/03/19 at 22:00; Stop 03/17/19 at 15:39; Status DC Acetaminophen (Tylenol) 650 mg PRN Q6HRS PRN PEG MILD PAIN / TEMP Last administered on 03/10/19at 20:48; Start 03/04/19 at 11:45 Furosemide (Lasix) 40 mg [id number] IVP Last administered on 03/06/19 08:38; Start 03/04/19 at 14:00; Stop 03/06/19 at 13:30; Status DC Fentanyl Citrate 30 ml @ 0 mls/hr CONT PRN IV SEE PROTOCOL Last administered on 03/25/19 09:01; Start 03/05/19 at 04:45 Cefepime HCl (Maxipime) 2 gm Q8HRS IVP Last administered on 03/10/19 05:43; Start 03/05/19 at 06:45; Stop 03/10/19 at 08:29; Status DC Metronidazole 100 ml @ 100 mls/hr Q8HRS IV Last administered on 03/10/19 05:45; Start 03/05/19 at 06:45; Stop 03/10/19 at 08:29; Status DC Linezolid/Dextrose 300 ml @ 300 mls/hr Q12HR IV Last administered on 03/05/19 21:24; Start 03/05/19 at 09:00; Stop 03/06/19 at 06:42; Status DC Metoclopramide HCl (Reglan Vial) 10 mg QIDACHS IV Last administered on 03/06/19 20:43; Start 03/05/19 at 11:30; Stop 03/07/19 at 07:37; Status DC Insulin Glargine (Lantus) 12 units BID SQ Last administered on 03/09/19 09:29; Start 03/05/19 at 09:00; Stop 03/09/19 at 17:11; Status DC Digoxin (Lanoxin) 500 mcg 1X ONCE IV Last administered on 03/06/19at 00:48; Start 03/06/19 at 00:45; Stop 03/06/19 at 00:46; Status DC Metoprolol Tartrate (Lopressor Vial) 5 mg 1X ONCE IVP Last administered on 03/06/19 00:53; Start 03/06/19 at 00:45; Stop 03/06/19 at 00:46; Status DC Sodium Chloride 500 ml @ 500 mls/hr 1X ONCE IV Last administered on 03/06/19 00:49; Start 03/06/19 at 00:45; Stop 03/06/19 at 01:44; Status DC Nystatin (Mycostatin) 1 jennifer BID TP Last administered on 03/25/19 09:01; Start 03/06/19 at 09:00 Sodium Cl/Sod Bicarb/Potass Cl/ PEG (Golytely) 2,000 ml 1X ONCE PO Last administered on 03/06/19 09:33; Start 03/06/19 at 08:00; Stop 03/06/19 at 08:01; Status DC Furosemide (Lasix) 40 mg DAILY08 IVP Last administered on 03/09/19 09:27; Start 03/07/19 at 08:00; Stop 03/09/19 at 12:45; Status DC Metoprolol Tartrate (Lopressor Vial) 10 mg 1X ONCE IVP Last administered on 03/06/19 16:08; Start 03/06/19 at 15:15; Stop 03/06/19 at 15:16; Status DC Metoprolol Tartrate (Lopressor Vial) 5 mg Q6HRS IVP Last administered on 17:03; Start 03/06/19 at 18:00; Stop 03/07/19 at 18:27; Status DC Aspirin (Children'S Aspirin) 81 mg 1X ONCE PO Last administered on 03/06/19 18:18; Start 03/06/19 at 17:00; Stop 03/06/19 at 17:01; Status DC Aspirin (Children'S Aspirin) 81 mg DAILYWBKFT PO Last administered on 03/25/19 08:49; Start 03/07/19 at 08:00 Labetalol HCl (Normodyne Iv Push) 20 mg PRN Q2HR PRN IVP HYPERTENSION, SEE COMMENTS Last administered on 03/06/19at 21:29; Start 03/06/19 at 17:15 Digoxin (Lanoxin) 250 mcg 1X ONCE IV Last administered on 03/06/19at 22:00; Start 03/06/19 at 22:00; Stop 03/06/19 at 22:01; Status DC Diltiazem HCl 125 mg/Dextrose 125 ml @ 5 mls/hr CONT PRN IV SEE I/O RECORD Last administered on 03/12/19 08:20; Start 03/06/19 at 23:00; Stop 03/12/19 at 11:03; Status DC Metoclopramide HCl (Reglan Vial) 10 mg Q6HRS IV ; Start 03/07/19 at 08:00; Stop 03/08/19 at 07:51; Status DC Metoprolol Tartrate (Lopressor Vial) 5 mg Q6HRS IVP Last administered on 03/25/19at 00:24; Start 03/08/19 at 12:00 Furosemide (Lasix) 40 mg 1X ONCE IVP Last administered on 03/08/19 21:21; Start 03/08/19 at 21:00; Stop 03/08/19 at 21:01; Status DC Furosemide (Lasix) 20 mg DAILY08 IVP ; Start 03/10/19 at 08:00; Stop 03/10/19 at 08:00; Status DC Furosemide (Lasix) 20 mg DAILY08 IVP Last administered on 03/14/19at 07:41; Start 03/10/19 at 08:00; Stop 03/15/19 at 07:32; Status DC Insulin Glargine (Lantus) 16 units BID SQ Last administered on 03/12/19at 00:09; Start 03/09/19 at 21:00; Stop 03/12/19 at 07:18; Status DC Insulin Human Lispro (HumaLOG) 0-9 UNITS Q6HRS SQ Last administered on 03/12/19at 05:45; Start 03/09/19 at 18:00; Stop 03/12/19 at 07:18; Status DC Dextrose (Dextrose 50%-Water Syringe) 12.5 gm PRN Q15MIN PRN IV SEE COMMENTS; Start 03/09/19 at 17:15; Stop 03/21/19 at 10:07; Status DC Cefepime HCl (Maxipime) 2 gm Q12HR IVP Last administered on 03/21/19at 08:26; Start 03/10/19 at 21:00; Stop 03/21/19 at 12:48; Status DC Insulin Human Lispro (HumaLOG) 15 units 1X ONCE SQ Last administered on 03/11/19at 00:14; Start 03/11/19 at 00:00; Stop 03/11/19 at 00:01; Status DC Insulin Glargine (Lantus) 20 units BID SQ Last administered on 03/17/19at 08:32; Start 03/12/19 at 09:00; Stop 03/17/19 at 10:46; Status DC Insulin Human Lispro (HumaLOG) 0-9 UNITS Q6HRS SQ Last administered on 03/21/19at 06:35; Start 03/12/19 at 12:00; Stop 03/21/19 at 10:00; Status DC Diltiazem HCl (Cardizem) 30 mg Q6HRS PO Last administered on 03/25/19at 05:38; Start 03/12/19 at 12:00 Furosemide (Lasix) 20 mg 1X ONCE IVP Last administered on 03/13/19at 11:04; Start 03/13/19 at 10:30; Stop 03/13/19 at 10:31; Status DC Furosemide (Lasix) 20 mg 1X ONCE IVP Last administered on 03/14/19at 07:40; St art 03/14/19 at 07:15; Stop 03/14/19 at 14:05; Status DC Furosemide (Lasix) 40 mg Q8HRS IVP Last administered on 03/17/19at 05:49; Start 03/14/19 at 22:00; Stop 03/17/19 at 10:58; Status DC Albuterol Sulfate (Ventolin Neb Soln) 2.5 mg 1X ONCE NEB Last administered on 03/16/19at 04:00; Start 03/16/19 at 04:00; Stop 03/16/19 at 04:01; Status DC Methylprednisolone Sodium Succinate (SOLU-Medrol 40MG VIAL) 80 mg 1X ONCE IV Last administered on 03/16/19at 04:17; Start 03/16/19 at 04:30; Stop 03/16/19 at 04:31; Status DC Furosemide (Lasix) 20 mg 1X ONCE IVP Last administered on 03/16/19at 04:17; Start 03/16/19 at 04:30; Stop 03/16/19 at 04:31; Status DC Insulin Glargine (Lantus) 25 units BID SQ Last administered on 03/21/19at 08:55; Start 03/17/19 at 21:00; Stop 03/21/19 at 10:00; Status DC Insulin Human Lispro (HumaLOG) 10 units Q6HRS SQ ; Start 03/17/19 at 12:00; Stop 03/17/19 at 13:32; Status DC Furosemide (Lasix) 40 mg QD IVP Last administered on 03/18/19at 05:55; Start 03/18/19 at 06:00; Stop 03/18/19 at 10:54; Status DC Insulin Human Lispro (HumaLOG) 3 units Q6HRS SQ Last administered on 03/19/19at 06:12; Start 03/17/19 at 18:00; Stop 03/19/19 at 08:28; Status DC Azithromycin 250 mg/Sodium Chloride 250 ml @ 250 mls/hr Q24H IV Last administered on 03/23/19at 08:13; Start 03/18/19 at 08:00; Stop 03/23/19 at 16:23; Status DC Alteplase, Recombinant (Cathflo For Central Catheter Clearance) 1 mg 1X ONCE INT CAT Last administered on 03/18/19at 09:21; Start 03/18/19 at 07:30; Stop 03/18/19 at 07:31; Status DC Alteplase, Recombinant (Cathflo For Central Catheter Clearance) 1 mg 1X ONCE INT CAT Last administered on 03/18/19at 11:04; Start 03/18/19 at 07:30; Stop 03/18/19 at 07:31; Status DC Alteplase, Recombinant (Cathflo For Central Catheter Clearance) 1 mg 1X ONCE INT CAT Last administered on 03/18/19at 13:26; Start 03/18/19 at 07:30; Stop 03/18/19 at 07:31; Status DC Furosemide (Lasix) 60 mg 1X ONCE IVP Last administered on 03/18/19at 11:04; Start 03/18/19 at 10:54; Stop 03/18/19 at 10:55; Status DC Furosemide (Lasix) 40 mg Q8HRS IVP ; Start 03/18/19 at 14:00; Stop 03/18/19 at 17:53; Status DC Digoxin (Lanoxin) 250 mcg 1X ONCE IV Last administered on 03/18/19at 15:48; Start 03/18/19 at 15:30; Stop 03/18/19 at 15:33; Status DC Furosemide (Lasix) 40 mg Q8HRS IVP Last administered on 03/20/19at 05:42; Start 03/18/19 at 20:00; Stop 03/20/19 at 08:48; Status DC Digoxin (Lanoxin) 500 mcg 1X ONCE IV Last administered on 03/18/19at 19:35; Start 03/18/19 at 20:00; Stop 03/18/19 at 20:01; Status DC Insulin Human Lispro (HumaLOG) 6 units Q6HRS SQ Last administered on 03/20/19at 05:45; Start 03/19/19 at 12:00; Stop 03/20/19 at 08:48; Status DC Furosemide (Lasix) 80 mg Q8HRS IVP Last administered on 03/22/19at 12:43; Start 03/20/19 at 14:00; Stop 03/22/19 at 17:00; Status DC Insulin Human Lispro (HumaLOG) 9 units Q6HRS SQ Last administered on 03/21/19at 06:36; Start 03/20/19 at 12:00; Stop 03/21/19 at 10:00; Status DC Methylprednisolone Sodium Succinate (SOLU-Medrol 125MG VIAL) 80 mg Q8HRS IV Last administered on 03/25/19at 05:37; Start 03/20/19 at 11:00 Alteplase, Recombinant (Cathflo For Central Catheter Clearance) 1 mg 1X ONCE IN T CAT Last administered on 03/20/19at 20:23; Start 03/20/19 at 20:00; Stop 03/20/19 at 20:09; Status DC Alteplase, Recombinant (Cathflo For Central Catheter Clearance) 1 mg 1X ONCE INT CAT Last administered on 03/20/19at 20:23; Start 03/20/19 at 20:00; Stop 03/20/19 at 20:09; Status DC Alteplase, Recombinant (Cathflo For Central Catheter Clearance) 1 mg 1X ONCE INT CAT Last administered on 03/20/19at 20:23; Start 03/20/19 at 20:00; Stop 03/20/19 at 20:09; Status DC Insulin Human Regular 150 unit/ Sodium Chloride 151.5 ml @ 0 mls/hr CONT PRN IV SEE I/O RECORD Last administered on 03/25/19at 03:51; Start 03/21/19 at 10:00 Dextrose (Dextrose 50%-Water Syringe) 12.5 gm PRN Q15MIN PRN IV LOW BLOOD SUGAR; Start 03/21/19 at 10:00 Furosemide (Lasix) 80 mg DAILY06 IVP Last administered on 03/25/19 05:37; Start 03/23/19 at 06:00 Potassium Chloride (KCl Oral Soln) 40 meq 1X ONCE PEG Last administered on 03/22/19at 17:14; Start 03/22/19 at 17:30; Stop 03/22/19 at 17:31; Status DC Metoclopramide HCl (Reglan Vial) 10 mg PRN Q6HRS PRN IV NAUSEA/VOMITING Last administered on 03/24/19at 11:02; Start 03/23/19 at 10:30; Stop 03/24/19 at 11:04 ; Status DC Dextrose 1,000 ml @ 125 mls/hr Q8H IV Last administered on 03/25/19 05:37; Start 03/23/19 at 11:15 Potassium Chloride (KCl Oral Soln) 40 meq 1X ONCE PEG Last administered on 03/24/19at 10:32; Start 03/24/19 at 08:30; Stop 03/24/19 at 08:31; Status DC Metoclopramide HCl (Reglan Vial) 10 mg Q8HRS IV Last administered on 03/25/19 05:37; Start 03/24/19 at 14:00 Insulin Glargine (Lantus) 10 units BID SQ Last administered on 03/25/19at 09:00; Start 03/24/19 at 21:00 Potassium Chloride (KCl Oral Soln) 40 meq 1X ONCE PEG Last administered on 03/25/19at 08:50; Start 03/25/19 at 08:15; Stop 03/25/19 at 08:16; Status DC Potassium Chloride (KCl Oral Soln) 40 meq BID PEG ; Start 03/25/19 at 10:00 Active Scripts Active Reported Proair Hfa Inhaler (Albuterol Sulfate) 8.5 Gm Hfa.aer.ad 1 Puff INH PRN Q6HRS PRN Lantus Solostar (Insulin Glargine,Hum.rec.anlog) 100 Unit/1 Ml Insuln.pen 20 Unit SQ QHS Humalog (Insulin Lispro) 100 Unit/1 Ml Cartridge 6 Unit SQ TIDWMEALS Doxazosin Mesylate 2 Mg Tablet 2 Mg PO DAILY Omeprazole 40 Mg Capsule.dr 40 Mg PO DAILY Amlodipine Besylate 10 Mg Tablet 10 Mg PO DAILY Atorvastatin Calcium 20 Mg Tablet 20 Mg PO DAILY Atenolol 50 Mg Tablet 50 Mg PO DAILY Losartan Potassium 100 Mg Tablet 100 Mg PO DAILY Aspirin 81 Mg Tab.chew 81 Mg PO DAILY Glyburide 5 Mg Tablet 1 Tab PO BID Vitals/I & O Vital Sign - Last 24 Hours 03/24/19 03/24/19 03/24/19 03/24/19 10:00 11:00 12:00 12:00 Temp 97.1 97.1 Pulse 77 73 76 Resp 22 22 22 B/P (MAP) 139/71 (93) 153/74 (100) 152/70 (97) Pulse Ox 93 93 94 O2 Delivery Ventilator Ventilator Ventilator Mechanical Ventilator 03/24/19 03/24/19 03/24/19 03/24/19 12:13 13:00 13:10 13:19 Pulse 75 79 Resp 22 B/P (MAP) 149/71 (97) 149/71 Pulse Ox 92 97 97 O2 Delivery Ventilator Ventilator Ventilator 03/24/19 03/24/19 03/24/19 03/24/19 13:19 14:00 15:00 15:51 Pulse 80 70 72 Resp 22 22 B/P (MAP) 149/71 145/75 (98) 154/77 (102) Pulse Ox 96 95 95 O2 Delivery Ventilator Ventilator Ventilator 03/24/19 03/24/19 03/24/19 03/24/19 16:00 16:00 17:00 17:26 Temp 98.1 98.1 Pulse 70 71 71 Resp 22 22 B/P (MAP) 119/69 (86) 162/76 (104) 162/76 Pulse Ox 95 95 O2 Delivery Ventilator Mechanical Ventilator Ventilator 03/24/19 03/24/19 03/24/19 03/24/19 17:26 18:00 18:09 19:00 Pulse 71 67 70 Resp 22 22 B/P (MAP) 162/76 156/76 (102) 154/76 (102) Pulse Ox 93 93 95 O2 Delivery Ventilator Ventilator Ventilator 03/24/19 03/24/19 03/24/19 03/24/19 19:22 19:39 19:52 20:00 Resp 22 Pulse Ox 93 94 O2 Delivery Ventilator Mechanical Ventilator O2 Flow Rate 40.0 40.0 03/24/19 03/24/19 03/24/19 03/24/19 20:00 21:00 21:15 22:00 Temp 98.5 98.5 Pulse 74 64 60 Resp 22 22 22 B/P (MAP) 156/78 (104) 148/75 (99) 148/74 (98) Pulse Ox 96 94 96 94 O2 Delivery Ventilator Ventilator Ventilator Ventilator 03/24/19 03/24/19 03/24/19 03/25/19 23:00 23:10 23:59 00:00 Temp 98.2 98.2 Pulse 58 Resp 22 B/P (MAP) 138/66 (90) Pulse Ox 94 94 95 O2 Delivery Ventilator Ventilator Mechanical Ventilator Ventilator 03/25/19 03/25/19 03/25/19 03/25/19 00:24 00:24 01:00 01:12 Pulse 65 65 56 Resp 21 21 B/P (MAP) 139/68 139/68 142/70 (94) Pulse Ox 95 96 O2 Delivery Ventilator Ventilator 03/25/19 03/25/19 03/25/19 03/25/19 01:30 01:42 02:00 03:00 Pulse 55 56 Resp 22 21 B/P (MAP) 144/73 (96) 144/71 (95) Pulse Ox 95 96 98 94 O2 Delivery Ventilator Ventilator Ventilator Ventilator 4/24/19 03/25/19 03/25/19 03/25/19 03:30 04:00 04:00 05:00 Temp 98.5 98.5 Pulse 55 56 Resp 21 21 B/P (MAP) 141/70 (93) 140/69 (92) Pulse Ox 94 94 94 O2 Delivery Ventilator Ventilator Mechanical Ventilator Ventilator 03/25/19 03/25/19 03/25/19 03/25/19 05:10 05:38 06:00 06:00 Pulse 70 58 68 Resp 22 B/P (MAP) 140/69 124/66 124/66 (85) Pulse Ox 94 93 O2 Delivery Ventilator Ventilator 03/25/19 03/25/19 03/25/19 07:44 08:08 09:01 Pulse Ox 92 92 O2 Delivery Ventilator Mechanical Ventilator O2 Flow Rate 40.0 Intake and Output 03/24/19 03/24/19 03/25/19 15:00 23:00 07:00 Intake Total 675 ml 4104.87 ml 3708 ml Output Total 1850 ml 1600 ml 2050 ml Balance -1175 ml 2504.87 ml 1658 ml ADITYA HUSTON MD Mar 25, 2019 09:39
--- NOTE | 2019-03-25 09:42 | RAD ---
AP portable chest radiograph 03/25/2019 Clinical History: Respiratory failure. An AP erect portable digital radiograph of the chest was obtained. Comparison study is dated 03/23/2019. The ET tube, NG tube and right arm PICC are unchanged in position. The cardiac silhouette is mildly enlarged. The thoracic aorta is mildly tortuous. Bilateral perihilar infiltrates are seen which have improved slightly. There are small to moderate-sized bilateral pleural effusions. No pneumothorax is seen. The osseous structures are unchanged. Impression: Slight improvement in the bilateral perihilar infiltrates. Electronically signed by: Cameron Muniz MD (03/25/2019 9:39 AM) [id number]
[2019-03-25 09:58] LABS: PROTHROMBIN TIME PATIENT 14.4 SEC (11.7-14.0)
--- NOTE | 2019-03-25 10:56 | PDOC ---
PULMONARY PROGRESS NOTES Subjective now 0n 10 peep 40% Vitals Vital Signs Date Time Temp Pulse Resp B/P (MAP) Pulse Ox O2 Delivery O2 Flow Rate FiO2 03/25/19 10:00 76 22 153/76 (101) 93 Ventilator 03/25/19 09:40 40.0 03/25/19 07:00 98.6 98.6 Comments Pt. is sedated and intubated HEENT: Other (orally intubated, PERRL) Lungs: Crackles, Other ( decraesed BLL) Cardiovascular: S1, S2 Abdomen: Soft, Non-tender, Other (obesity, increased gastric residuals) Extremities: Other (venous stasis and edema left, right BKA) Skin: Warm, Dry Labs Laboratory Tests Test 03/23/19 11:07 03/23/19 12:09 03/23/19 13:12 03/23/19 14:21 Glucose (Fingerstick) 146 mg/dL (70-99) 135 mg/dL (70-99) 145 mg/dL (70-99) 154 mg/dL (70-99) Test 03/23/19 16:24 03/23/19 18:27 03/23/19 19:32 03/23/19 21:20 Glucose (Fingerstick) 140 mg/dL (70-99) 170 mg/dL (70-99) 166 mg/dL (70-99) 171 mg/dL (70-99) Test 03/23/19 23:00 03/24/19 01:32 03/24/19 02:53 03/24/19 05:35 Glucose (Fingerstick) 154 mg/dL (70-99) 135 mg/dL (70-99) 159 mg/dL (70-99) 133 mg/dL (70-99) Sodium Level 151 mmol/L (136-145) Potassium Level 3.1 mmol/L (3.5-5.1) Chloride Level 110 mmol/L (98-107) Carbon Dioxide Level 32 mmol/L (21-32) Anion Gap 9 (6-14) Blood Urea Nitrogen 111 mg/dL (8-26) Creatinine 1.4 mg/dL (0.7-1.3) Estimated GFR (Cockcroft-Gault) 52.4 Glucose Level 152 mg/dL (70-99) Hemoglobin A1c 7.3 % (4.8-5.6) Calcium Level 8.5 mg/dL (8.5-10.1) Phosphorus Level 5.2 mg/dL (2.6-4.7) Albumin 2.0 g/dL (3.4-5.0) Test 03/24/19 07:20 03/24/19 07:30 03/24/19 09:39 03/24/19 10:34 O2 Saturation 91 % (92-99) Arterial Blood pH 7.42 (7.35-7.45) Arterial Blood pCO2 at Patient Temp 47 mmHg (35-46) Arterial Blood pO2 at Patient Temp 62 mmHg (75-108) Arterial Blood HCO3 30 mmol/L (21-28) Arterial Blood Base Excess 4 mmol/L (-3-3) FiO2 50 Glucose (Fingerstick) 138 mg/dL (70-99) 175 mg/dL (70-99) 161 mg/dL (70-99) Test 03/24/19 12:13 03/24/19 13:21 03/24/19 14:42 03/24/19 15:45 Glucose (Fingerstick) 173 mg/dL (70-99) 174 mg/dL (70-99) 156 mg/dL (70-99) 143 mg/dL (70-99) Test 03/24/19 17:04 03/24/19 17:55 03/24/19 18:59 03/24/19 20:02 Glucose (Fingerstick) 137 mg/dL (70-99) 128 mg/dL (70-99) 123 mg/dL (70-99) 131 mg/dL (70-99) Test 03/24/19 21:21 03/24/19 22:24 03/24/19 23:32 03/25/19 00:26 Glucose (Fingerstick) 120 mg/dL (70-99) 117 mg/dL (70-99) 127 mg/dL (70-99) 117 mg/dL (70-99) Test 03/25/19 01:31 03/25/19 02:30 03/25/19 03:35 03/25/19 04:37 Glucose (Fingerstick) 128 mg/dL (70-99) 122 mg/dL (70-99) 143 mg/dL (70-99) 130 mg/dL (70-99) Test 03/25/19 05:30 03/25/19 05:31 03/25/19 06:43 03/25/19 07:46 White Blood Count 9.7 x10^3/uL (4.0-11.0) Red Blood Count 3.65 x10^6/uL (4.30-5.70) Hemoglobin 11.0 g/dL (13.0-17.5) Hematocrit 33.9 % (39.0-53.0) Mean Corpuscular Volume 93 fL (79-100) Mean Corpuscular Hemoglobin 30 pg (25-35) Mean Corpuscular Hemoglobin Concent 32 g/dL (31-37) Red Cell Distribution Width 13.9 % (11.5-14.5) Platelet Count 266 x10^3/uL (140-400) Neutrophils (%) (Auto) 89 % (31-73) Lymphocytes (%) (Auto) 8 % (24-48) Monocytes (%) (Auto) 3 % (0-9) Eosinophils (%) (Auto) 0 % (0-3) Basophils (%) (Auto) 1 % (0-3) Neutrophils # (Auto) 8.6 x10^3uL (1.8-7.7) Lymphocytes # (Auto) 0.8 x10^3/uL (1.0-4.8) Monocytes # (Auto) 0.3 x10^3/uL (0.0-1.1) Eosinophils # (Auto) 0.0 x10^3/uL (0.0-0.7) Basophils # (Auto) 0.1 x10^3/uL (0.0-0.2) Segmented Neutrophils % 96 % (35-66) Lymphocytes % 4 % (24-48) Platelet Estimate Adequate (ADEQUATE) Sodium Level 149 mmol/L (136-145) Potassium Level 3.1 mmol/L (3.5-5.1) Chloride Level 108 mmol/L (98-107) Carbon Dioxide Level 32 mmol/L (21-32) Anion Gap 9 (6-14) Blood Urea Nitrogen 96 mg/dL (8-26) Creatinine 1.1 mg/dL (0.7-1.3) Estimated GFR (Cockcroft-Gault) 69.2 Glucose Level 155 mg/dL (70-99) Calcium Level 7.9 mg/dL (8.5-10.1) Phosphorus Level 4.6 mg/dL (2.6-4.7) Magnesium Level 2.8 mg/dL (1.8-2.4) Albumin 1.9 g/dL (3.4-5.0) Glucose (Fingerstick) 128 mg/dL (70-99) 162 mg/dL (70-99) 161 mg/dL (70-99) Test 03/25/19 08:50 03/25/19 08:55 03/25/19 09:55 Glucose (Fingerstick) 166 mg/dL (70-99) 149 mg/dL (70-99) Prothrombin Time 14.4 SEC (11.7-14.0) Prothromb Time International Ratio 1.2 (0.8-1.1) Activated Partial Thromboplast Time 24 SEC (24-38) Laboratory Tests Test 03/24/19 12:13 03/24/19 13:21 03/24/19 14:42 03/24/19 15:45 Glucose (Fingerstick) 173 mg/dL (70-99) 174 mg/dL (70-99) 156 mg/dL (70-99) 143 mg/dL (70-99) Test 03/24/19 17:04 03/24/19 17:55 03/24/19 18:59 03/24/19 20:02 Glucose (Fingerstick) 137 mg/dL (70-99) 128 mg/dL (70-99) 123 mg/dL (70-99) 131 mg/dL (70-99) Test 03/24/19 21:21 03/24/19 22:24 03/24/19 23:32 03/25/19 00:26 Glucose (Fingerstick) 120 mg/dL (70-99) 117 mg/dL (70-99) 127 mg/dL (70-99) 117 mg/dL (70-99) Test 03/25/19 01:31 03/25/19 02:30 03/25/19 03:35 03/25/19 04:37 Glucose (Fingerstick) 128 mg/dL (70-99) 122 mg/dL (70-99) 143 mg/dL (70-99) 130 mg/dL (70-99) Test 03/25/19 05:30 03/25/19 05:31 03/25/19 06:43 03/25/19 07:46 White Blood Count 9.7 x10^3/uL (4.0-11.0) Red Blood Count 3.65 x10^6/uL (4.30-5.70) Hemoglobin 11.0 g/dL (13.0-17.5) Hematocrit 33.9 % (39.0-53.0) Mean Corpuscular Volume 93 fL (79-100) Mean Corpuscular Hemoglobin 30 pg (25-35) Mean Corpuscular Hemoglobin Concent 32 g/dL (31-37) Red Cell Distribution Width 13.9 % (11.5-14.5) Platelet Count 266 x10^3/uL (140-400) Neutrophils (%) (Auto) 89 % (31-73) Lymphocytes (%) (Auto) 8 % (24-48) Monocytes (%) (Auto) 3 % (0-9) Eosinophils (%) (Auto) 0 % (0-3) Basophils (%) (Auto) 1 % (0-3) Neutrophils # (Auto) 8.6 x10^3uL (1.8-7.7) Lymphocytes # (Auto) 0.8 x10^3/uL (1.0-4.8) Monocytes # (Auto) 0.3 x10^3/uL (0.0-1.1) Eosinophils # (Auto) 0.0 x10^3/uL (0.0-0.7) Basophils # (Auto) 0.1 x10^3/uL (0.0-0.2) Segmented Neutrophils % 96 % (35-66) Lymphocytes % 4 % (24-48) Platelet Estimate Adequate (ADEQUATE) Sodium Level 149 mmol/L (136-145) Potassium Level 3.1 mmol/L (3.5-5.1) Chloride Level 108 mmol/L (98-107) Carbon Dioxide Level 32 mmol/L (21-32) Anion Gap 9 (6-14) Blood Urea Nitrogen 96 mg/dL (8-26) Creatinine 1.1 mg/dL (0.7-1.3) Estimated GFR (Cockcroft-Gault) 69.2 Glucose Level 155 mg/dL (70-99) Calcium Level 7.9 mg/dL (8.5-10.1) Phosphorus Level 4.6 mg/dL (2.6-4.7) Magnesium Level 2.8 mg/dL (1.8-2.4) Albumin 1.9 g/dL (3.4-5.0) Glucose (Fingerstick) 128 mg/dL (70-99) 162 mg/dL (70-99) 161 mg/dL (70-99) Test 03/25/19 08:50 03/25/19 08:55 03/25/19 09:55 Glucose (Fingerstick) 166 mg/dL (70-99) 149 mg/dL (70-99) Prothrombin Time 14.4 SEC (11.7-14.0) Prothromb Time International Ratio 1.2 (0.8-1.1) Activated Partial Thromboplast Time 24 SEC (24-38) Medications Active Scripts Medications Dose Route/Sig Max Daily Dose Days Date Category Proair Hfa Inhaler (Albuterol Sulfate) 8.5 Gm Hfa.aer.ad 1 Puff INH PRN Q6HRS PRN 02/27/19 Reported Lantus Solostar (Insulin Glargine,Hum.rec.anlog) 100 Unit/1 Ml Insuln.pen 20 Unit SQ QHS 02/27/19 Reported Humalog (Insulin Lispro) 100 Unit/1 Ml Cartridge 6 Unit SQ TIDWMEALS 02/27/19 Reported Doxazosin Mesylate 2 Mg Tablet 2 Mg PO DAILY 02/27/19 Reported Omeprazole 40 Mg Capsule.dr 40 Mg PO DAILY 02/27/19 Reported Amlodipine Besylate 10 Mg Tablet 10 Mg PO DAILY 02/27/19 Reported Atorvastatin Calcium 20 Mg Tablet 20 Mg PO DAILY 02/27/19 Reported Atenolol 50 Mg Tablet 50 Mg PO DAILY 02/27/19 Reported Losartan Potassium 100 Mg Tablet 100 Mg PO DAILY 02/27/19 Reported Aspirin 81 Mg Tab.chew 81 Mg PO DAILY 02/27/19 Reported Glyburide 5 Mg Tablet 1 Tab PO BID 11/09/16 Reported Active Scripts Medications Dose Route/Sig Max Daily Dose Days Date Category Proair Hfa Inhaler (Albuterol Sulfate) 8.5 Gm Hfa.aer.ad 1 Puff INH PRN Q6HRS PRN 02/27/19 Reported Lantus Solostar (Insulin Glargine,Hum.rec.anlog) 100 Unit/1 Ml Insuln.pen 20 Unit SQ QHS 02/27/19 Reported Humalog (Insulin Lispro) 100 Unit/1 Ml Cartridge 6 Unit SQ TIDWMEALS 02/27/19 Reported Doxazosin Mesylate 2 Mg Tablet 2 Mg PO DAILY 02/27/19 Reported Omeprazole 40 Mg Capsule.dr 40 Mg PO DAILY 02/27/19 Reported Amlodipine Besylate 10 Mg Tablet 10 Mg PO DAILY 02/27/19 Reported Atorvastatin Calcium 20 Mg Tablet 20 Mg PO DAILY 02/27/19 Reported Atenolol 50 Mg Tablet 50 Mg PO DAILY 02/27/19 Reported Losartan Potassium 100 Mg Tablet 100 Mg PO DAILY 02/27/19 Reported Aspirin 81 Mg Tab.chew 81 Mg PO DAILY 02/27/19 Reported Glyburide 5 Mg Tablet 1 Tab PO BID 11/09/16 Reported Active Scripts Medications Dose Route/Sig Max Daily Dose Days Date Category Proair Hfa Inhaler (Albuterol Sulfate) 8.5 Gm Hfa.aer.ad 1 Puff INH PRN Q6HRS PRN 02/27/19 Reported Lantus Solostar (Insulin Glargine,Hum.rec.anlog) 100 Unit/1 Ml Insuln.pen 20 Unit SQ QHS 02/27/19 Reported Humalog (Insulin Lispro) 100 Unit/1 Ml Cartridge 6 Unit SQ TIDWMEALS 02/27/19 Reported Doxazosin Mesylate 2 Mg Tablet 2 Mg PO DAILY 02/27/19 Reported Omeprazole 40 Mg Capsule.dr 40 Mg PO DAILY 02/27/19 Reported Amlodipine Besylate 10 Mg Tablet 10 Mg PO DAILY 02/27/19 Reported Atorvastatin Calcium 20 Mg Tablet 20 Mg PO DAILY 02/27/19 Reported Atenolol 50 Mg Tablet 50 Mg PO DAILY 02/27/19 Reported Losartan Potassium 100 Mg Tablet 100 Mg PO DAILY 02/27/19 Reported Aspirin 81 Mg Tab.chew 81 Mg PO DAILY 02/27/19 Reported Glyburide 5 Mg Tablet 1 Tab PO BID 11/09/16 Reported Impression . Acute hypoxemic /hypercapnic respiratory failure./ ARDS sepsis./ ARDS In-house cardiopulmonary arrest. Normal EF / mild Pulmonary HTN Acute on chronic right-sided heart failure. Morbid obesity. Diabetes uncontrolled Abnormal CXR/ susperimposed CHF right effusion 03/18, effusion better 03/20 but infiltrates worse Plan . Acute hypoxemic /hypercapnic respiratory failure./ ARDS * cont nebs/PRN suctioning * cont. A/C mode, PEEP at 10 TRACH IN AM * cont. solumedrol * follow ABG/CXR: hypoxic on ABG FIO2 increased and CXR worse today WILL MONITOR FOR NOW Sepsis/ ARDS * ABX per ID * supportive care as above * follow cultures LEONARD * cr. peaked at 3.2 * Cr. is now 1.4 * nephrology following * avoid nephrotoxic medications Cardiac Arrest * ECHO 60-65%, PAP 33-38 * Diuresis * monitor KCL Acute on chronic right-sided heart failure * Diuresis * cardiology following Hypernatremia * continue free water flushes, added D5 gtt * renal following Elevated gastric residuals * Reglan tari. * TF per dietary recs Diabetes uncontrolled * cont. insulin gtt * add Lantus BID CCT 30 MIN PT. is DNR MAGO NI MD Mar 25, 2019 10:55
[2019-03-25] MEDS: POTASSIUM CHLORIDE 20 MEQ/15 ML ORAL LIQUID. PEG SCH ×2 (11:00→20:45)
[2019-03-25] MEDS ORDERED: POTASSIUM CHLORIDE 30 MEQ in IV 1/2 NORMAL SALINE 1,000 ML IV ONE (12:15)
--- NOTE | 2019-03-25 12:15 | PDOC ---
Renal-Progress Notes Subjective Notes Notes NOTHING NEW History of Present Illness Hx of present illness STABLE Vitals Vitals Vital Signs Date Time Temp Pulse Resp B/P (MAP) Pulse Ox O2 Delivery O2 Flow Rate FiO2 03/25/19 11:17 93 40.0 03/25/19 11:02 76 153/76 03/25/19 10:00 22 Ventilator 03/25/19 07:00 98.6 98.6 Weight Weight [ ] Stability Assess. Stability Assess.: other (intubated ) I.O. Intake and Output Intake and Output 03/25/19 07:00 Intake Total 8487.87 ml Output Total 5500 ml Balance 2987.87 ml IV Total 4853.87 ml Tube Feeding 3334 ml Other 300 ml Output Urine Total 5500 ml Gastric Drainage Total 0 ml Labs Labs Laboratory Tests Test 03/24/19 13:21 03/24/19 14:42 03/24/19 15:45 03/24/19 17:04 Glucose (Fingerstick) 174 mg/dL (70-99) 156 mg/dL (70-99) 143 mg/dL (70-99) 137 mg/dL (70-99) Test 03/24/19 17:55 03/24/19 18:59 03/24/19 20:02 03/24/19 21:21 Glucose (Fingerstick) 128 mg/dL (70-99) 123 mg/dL (70-99) 131 mg/dL (70-99) 120 mg/dL (70-99) Test 03/24/19 22:24 03/24/19 23:32 03/25/19 00:26 03/25/19 01:31 Glucose (Fingerstick) 117 mg/dL (70-99) 127 mg/dL (70-99) 117 mg/dL (70-99) 128 mg/dL (70-99) Test 03/25/19 02:30 03/25/19 03:35 03/25/19 04:37 03/25/19 05:30 Glucose (Fingerstick) 122 mg/dL (70-99) 143 mg/dL (70-99) 130 mg/dL (70-99) White Blood Count 9.7 x10^3/uL (4.0-11.0) Red Blood Count 3.65 x10^6/uL (4.30-5.70) Hemoglobin 11.0 g/dL (13.0-17.5) Hematocrit 33.9 % (39.0-53.0) Mean Corpuscular Volume 93 fL (79-100) Mean Corpuscular Hemoglobin 30 pg (25-35) Mean Corpuscular Hemoglobin Concent 32 g/dL (31-37) Red Cell Distribution Width 13.9 % (11.5-14.5) Platelet Count 266 x10^3/uL (140-400) Neutrophils (%) (Auto) 89 % (31-73) Lymphocytes (%) (Auto) 8 % (24-48) Monocytes (%) (Auto) 3 % (0-9) Eosinophils (%) (Auto) 0 % (0-3) Basophils (%) (Auto) 1 % (0-3) Neutrophils # (Auto) 8.6 x10^3uL (1.8-7.7) Lymphocytes # (Auto) 0.8 x10^3/uL (1.0-4.8) Monocytes # (Auto) 0.3 x10^3/uL (0.0-1.1) Eosinophils # (Auto) 0.0 x10^3/uL (0.0-0.7) Basophils # (Auto) 0.1 x10^3/uL (0.0-0.2) Segmented Neutrophils % 96 % (35-66) Lymphocytes % 4 % (24-48) Platelet Estimate Adequate (ADEQUATE) Sodium Level 149 mmol/L (136-145) Potassium Level 3.1 mmol/L (3.5-5.1) Chloride Level 108 mmol/L (98-107) Carbon Dioxide Level 32 mmol/L (21-32) Anion Gap 9 (6-14) Blood Urea Nitrogen 96 mg/dL (8-26) Creatinine 1.1 mg/dL (0.7-1.3) Estimated GFR (Cockcroft-Gault) 69.2 Glucose Level 155 mg/dL (70-99) Calcium Level 7.9 mg/dL (8.5-10.1) Phosphorus Level 4.6 mg/dL (2.6-4.7) Magnesium Level 2.8 mg/dL (1.8-2.4) Albumin 1.9 g/dL (3.4-5.0) Test 03/25/19 05:31 03/25/19 06:43 03/25/19 07:46 03/25/19 08:50 Glucose (Fingerstick) 128 mg/dL (70-99) 162 mg/dL (70-99) 161 mg/dL (70-99) 166 mg/dL (70-99) Test 03/25/19 08:55 03/25/19 09:55 03/25/19 10:58 Prothrombin Time 14.4 SEC (11.7-14.0) Prothromb Time International Ratio 1.2 (0.8-1.1) Activated Partial Thromboplast Time 24 SEC (24-38) Glucose (Fingerstick) 149 mg/dL (70-99) 176 mg/dL (70-99) Micro Micro Microbiology 03/05/19 Blood Culture - Final, Complete NO GROWTH AFTER 5 DAYS 03/08/19 - Final, Complete 03/08/19 - Final, Complete 03/08/19 - Final, Complete 03/08/19 Gram Stain Evaluation - Final, Complete 03/08/19 Sputum Culture - Final, Complete 03/08/19 Sputum Result 1 - Final, Complete 03/02/19 Urine Culture - Final, Complete 03/02/19 Urine Culture Result 1 (LUCIO) - Final, Complete 03/09/19 Aerobic Culture - Final, Complete 03/09/19 Aerobic Culture Result 1 (LUCIO) - Final, Complete 03/09/19 Gram Stain - Final, Complete 03/09/19 Gram Stain Result 1 (LUCIO) - Final, Complete 03/09/19 Gram Stain Result 2 (LUCIO) - Final, Complete Review of Systems Constitutional: yes: unresponsive, other (INTUBATED AND SEDATED) Physical Exam General Appearance: other (SEDATED) Skin: warm Respiratory: decreased breath sounds Heart: S1S2 Abdomen: soft, N/T, bowel sounds present Genitourinary: bladder flat Extremities: pulses present Neurology: other (sedated) Assessment Assessment IMP LEONARD-BETTER HYPOKALEMIA ANASARCA-PERSISTS BUT BETTER HYPERNATREMIA-NA BETTER EXTRACELLULAR VOLUME DEPLETION ACUTE HYPERCARBIC RESP FAILURE-FIO2 DOWN TO 40% NOW SCROTAL EDEMA DUE TO ANASARCA-BETTER RIGHT RENAL MASS PROB PNEUMONIA PROB SEPSIS PROB RIGHT SIDED CHF WITH DIASTOLIC DYSFUNCTION MORBID OBESITY MALNUTRITION PLAN ANTIBIOTICS VENT SUPPORT DAILY LASIX REPLACE K EVAL RENAL MASS LATER CONT TF AND DECREASE FREE WATER DUE TO INCREASING RESIDUALS INCREASE FREE WATER WILL FOLLOW TRACH SOON D/W DEEPTHI BROWN MD Mar 25, 2019 12:15
--- NOTE | 2019-03-25 13:21 | PDOC2 ---
GI CONSULT Reason For Consult: PEG HPI: HPI: 58 y/o male admitted last month - presented to ER w/ swelling and then had cardiopulmonary arrest. Has remained on ventilator w/ plans for tracheostomy placement tomorrow. GI asked to see re: possible PEG placement. Had colonoscopy w/ Dr. Everett in 11/2016 for screening which showed non- bleeding internal hemorrhoids. PMH: PMH: per chart - CHF, HTN, DM, HLD, PVD, obesity right BKA, tonsillectomy FH: Family History: Other (adopted) Social History: Smoke: Quit ROS: Unable to obtain Vitals: Vitals: Vital Signs Date Time Temp Pulse Resp B/P (MAP) Pulse Ox O2 Delivery O2 Flow Rate FiO2 03/25/19 12:25 92 Ventilator 03/25/19 12:16 40.0 03/25/19 11:02 76 153/76 03/25/19 10:00 22 03/25/19 07:00 98.6 98.6 Labs: Labs: Laboratory Tests Test 03/24/19 13:21 03/24/19 14:42 03/24/19 15:45 03/24/19 17:04 Glucose (Fingerstick) 174 mg/dL (70-99) 156 mg/dL (70-99) 143 mg/dL (70-99) 137 mg/dL (70-99) Test 03/24/19 17:55 03/24/19 18:59 03/24/19 20:02 03/24/19 21:21 Glucose (Fingerstick) 128 mg/dL (70-99) 123 mg/dL (70-99) 131 mg/dL (70-99) 120 mg/dL (70-99) Test 03/24/19 22:24 03/24/19 23:32 03/25/19 00:26 03/25/19 01:31 Glucose (Fingerstick) 117 mg/dL (70-99) 127 mg/dL (70-99) 117 mg/dL (70-99) 128 mg/dL (70-99) Test 03/25/19 02:30 03/25/19 03:35 03/25/19 04:37 03/25/19 05:30 Glucose (Fingerstick) 122 mg/dL (70-99) 143 mg/dL (70-99) 130 mg/dL (70-99) White Blood Count 9.7 x10^3/uL (4.0-11.0) Red Blood Count 3.65 x10^6/uL (4.30-5.70) Hemoglobin 11.0 g/dL (13.0-17.5) Hematocrit 33.9 % (39.0-53.0) Mean Corpuscular Volume 93 fL (79-100) Mean Corpuscular Hemoglobin 30 pg (25-35) Mean Corpuscular Hemoglobin Concent 32 g/dL (31-37) Red Cell Distribution Width 13.9 % (11.5-14.5) Platelet Count 266 x10^3/uL (140-400) Neutrophils (%) (Auto) 89 % (31-73) Lymphocytes (%) (Auto) 8 % (24-48) Monocytes (%) (Auto) 3 % (0-9) Eosinophils (%) (Auto) 0 % (0-3) Basophils (%) (Auto) 1 % (0-3) Neutrophils # (Auto) 8.6 x10^3uL (1.8-7.7) Lymphocytes # (Auto) 0.8 x10^3/uL (1.0-4.8) Monocytes # (Auto) 0.3 x10^3/uL (0.0-1.1) Eosinophils # (Auto) 0.0 x10^3/uL (0.0-0.7) Basophils # (Auto) 0.1 x10^3/uL (0.0-0.2) Segmented Neutrophils % 96 % (35-66) Lymphocytes % 4 % (24-48) Platelet Estimate Adequate (ADEQUATE) Sodium Level 149 mmol/L (136-145) Potassium Level 3.1 mmol/L (3.5-5.1) Chloride Level 108 mmol/L (98-107) Carbon Dioxide Level 32 mmol/L (21-32) Anion Gap 9 (6-14) Blood Urea Nitrogen 96 mg/dL (8-26) Creatinine 1.1 mg/dL (0.7-1.3) Estimated GFR (Cockcroft-Gault) 69.2 Glucose Level 155 mg/dL (70-99) Calcium Level 7.9 mg/dL (8.5-10.1) Phosphorus Level 4.6 mg/dL (2.6-4.7) Magnesium Level 2.8 mg/dL (1.8-2.4) Albumin 1.9 g/dL (3.4-5.0) Test 03/25/19 05:31 03/25/19 06:43 03/25/19 07:46 03/25/19 08:50 Glucose (Fingerstick) 128 mg/dL (70-99) 162 mg/dL (70-99) 161 mg/dL (70-99) 166 mg/dL (70-99) Test 03/25/19 08:55 03/25/19 09:55 03/25/19 10:58 03/25/19 12:01 Prothrombin Time 14.4 SEC (11.7-14.0) Prothromb Time International Ratio 1.2 (0.8-1.1) Activated Partial Thromboplast Time 24 SEC (24-38) Glucose (Fingerstick) 149 mg/dL (70-99) 176 mg/dL (70-99) 168 mg/dL (70-99) Test 03/25/19 13:05 Glucose (Fingerstick) 163 mg/dL (70-99) Allergies: Coded Allergies: No Known Drug Allergies (Unverified , 11/09/16) Medications: Current Medications Medications (Trade) Dose Ordered Sig/Lula Route PRN Reason Start Time Stop Time Status Last Admin Dose Admin Metoclopramide HCl (Reglan Vial) 10 mg Q8HRS IV 03/24/19 14:00 03/25/19 05:37 Insulin Glargine (Lantus) 10 units BID SQ 03/24/19 21:00 03/25/19 09:00 Potassium Chloride (KCl Oral Soln) 40 meq 1X ONCE PEG 03/25/19 08:15 03/25/19 08:16 DC 03/25/19 08:50 Potassium Chloride (KCl Oral Soln) 40 meq BID PEG 03/25/19 10:00 03/25/19 11:00 Imaging: Imaging: CXR 03/25 Impression: Slight improvement in the bilateral perihilar infiltrates. PE: GEN: intubated HEENT: Atraumatic, PERRL, feeding tube LUNGS: vent HEART: RRR ABD: NABS, S/ND/NT EXTREMITY: RBKA SKIN: No rashes, no jaundice NEURO/PSYCH: sedated A/P: A/P: Resp failure - intubated on tube feeds, need for long-term non-oral nutrition CRC screen - UTD -- Tentatively plan for PEG placement on Saturday after tracheostomy placement. Procedure and risks d/w family at bedside. RJ MOFFETT Mar 25, 2019 13:21
[2019-03-25 14:36] LABS: FIO2 ABG 40
[2019-03-26] VITALS (23 sets, daily range): BP systolic 115–170; BP diastolic 61–79
[2019-03-26] MEDS: PROPOFOL 100 ML IV PRN ×3 (00:01→16:48)
[2019-03-26] MEDS: METOPROLOL TARTRATE 5 MG/5 ML VIAL. IVP SCH ×4 (00:07→18:00)
[2019-03-26] MEDS: dilTIAZem HCL 30 MG TABLET PO SCH ×2 (00:07→05:46)
[2019-03-26] MEDS: MIDAZOLAM 100mg/100ml NS BAG 100 ML IV PRN ×2 (02:46→20:06)
[2019-03-26] MEDS: INSULIN REGULAR VIAL 150 UNIT in 0.9 % SODIUM CHLORIDE 150ML 150 ML IV PRN ×2 (03:06→15:21)
[2019-03-26] MEDS: IV DEXTROSE 5% 1,000 ML IV SCH ×3 (05:44→20:57)
[2019-03-26] MEDS: FUROSEMIDE 100 MG/10 ML VIAL. IVP SCH (05:45)
[2019-03-26] MEDS: METOCLOPRAMIDE HCL 10 MG/2 ML VIAL. IV SCH ×3 (05:45→21:59)
[2019-03-26] MEDS: methylPREDNISolone SOD SUCC PF 125 MG/2 ML VIAL. IV SCH ×3 (05:46→22:00)
[2019-03-26] MEDS: HEPARIN for SUB-Q USE 5,000 UNIT/ML VIAL. SQ SCH ×3 (05:48→22:00)
[2019-03-26 05:54] LABS: CALCIUM 7.6 mg/dL (8.5-10.1); CREATININE 1.1 mg/dL (0.7-1.3); GFR 69.2; MAGNESIUM 2.7 mg/dL (1.8-2.4); PHOSPHORUS 4.4 mg/dL (2.6-4.7); POTASSIUM 4.1 mmol/L (3.5-5.1)
[2019-03-26] MEDS ORDERED: MORPHINE SULFATE 2 MG/ML VIAL. IV PRN (07:00)
[2019-03-26] MEDS ORDERED: IV RINGERS,LACTATED 1000ML 1,000 ML IV SCH (07:00)
[2019-03-26] MEDS ORDERED: HYDROmorphone 2 MG/ML VIAL IV PRN (07:00)
[2019-03-26] MEDS ORDERED: fentaNYL PF VIAL 100 MCG/2 ML VIAL IV PRN ×2 (07:00)
[2019-03-26] MEDS ORDERED: LIDOCAINE 1% PF 2 ML VIAL. ID PRN (07:00)
[2019-03-26] MEDS: IPRATRPIUM/ALBUTEROL 0.5/2.5MG 3 ML NEBU. NEB SCH ×4 (07:01→19:45)
[2019-03-26 07:12] LABS: BASE EXCESS ABG 5 mmol/L (-3-3); HCO3 ABG 31 mmol/L (21-28); PCO2 ABG 51 mmHg (35-46); PO2 ABG 62 mmHg (75-108); SAT O2 ABG 91 % (92-99)
[2019-03-26 08:11] LABS: FIO2 ABG 40
[2019-03-26] MEDS: INSULIN GLARGINE 300 UNITS/3 ML INSULN.PEN. SQ SCH ×2 (09:00→20:56)
[2019-03-26] MEDS: ASPIRIN CHEWABLE 81 MG TABLET. PO SCH (09:15)
[2019-03-26] MEDS: POTASSIUM CHLORIDE 20 MEQ/15 ML ORAL LIQUID. PEG SCH (09:15)
--- NOTE | 2019-03-26 09:15 | PDOC ---
PULMONARY PROGRESS NOTES Subjective TO OR TODAY Vitals Vital Signs Date Time Temp Pulse Resp B/P (MAP) Pulse Ox O2 Delivery O2 Flow Rate FiO2 03/26/19 08:25 94 Ventilator 03/26/19 07:00 68 22 149/71 (97) 03/26/19 04:00 98.2 98.2 03/25/19 23:39 40.0 Comments Pt. is sedated and intubated HEENT: Other (orally intubated, PERRL) Lungs: Crackles, Other ( decraesed BLL) Cardiovascular: S1, S2 Abdomen: Soft, Non-tender, Other (obesity, increased gastric residuals) Extremities: Other (venous stasis and edema left, right BKA) Skin: Warm, Dry Labs Laboratory Tests Test 03/24/19 09:39 03/24/19 10:34 03/24/19 12:13 03/24/19 13:21 Glucose (Fingerstick) 175 mg/dL (70-99) 161 mg/dL (70-99) 173 mg/dL (70-99) 174 mg/dL (70-99) Test 03/24/19 14:42 03/24/19 15:45 03/24/19 17:04 03/24/19 17:55 Glucose (Fingerstick) 156 mg/dL (70-99) 143 mg/dL (70-99) 137 mg/dL (70-99) 128 mg/dL (70-99) Test 03/24/19 18:59 03/24/19 20:02 03/24/19 21:21 03/24/19 22:24 Glucose (Fingerstick) 123 mg/dL (70-99) 131 mg/dL (70-99) 120 mg/dL (70-99) 117 mg/dL (70-99) Test 03/24/19 23:32 03/25/19 00:26 03/25/19 01:31 03/25/19 02:30 Glucose (Fingerstick) 127 mg/dL (70-99) 117 mg/dL (70-99) 128 mg/dL (70-99) 122 mg/dL (70-99) Test 03/25/19 03:35 03/25/19 04:37 03/25/19 05:30 03/25/19 05:31 Glucose (Fingerstick) 143 mg/dL (70-99) 130 mg/dL (70-99) 128 mg/dL (70-99) White Blood Count 9.7 x10^3/uL (4.0-11.0) Red Blood Count 3.65 x10^6/uL (4.30-5.70) Hemoglobin 11.0 g/dL (13.0-17.5) Hematocrit 33.9 % (39.0-53.0) Mean Corpuscular Volume 93 fL (79-100) Mean Corpuscular Hemoglobin 30 pg (25-35) Mean Corpuscular Hemoglobin Concent 32 g/dL (31-37) Red Cell Distribution Width 13.9 % (11.5-14.5) Platelet Count 266 x10^3/uL (140-400) Neutrophils (%) (Auto) 89 % (31-73) Lymphocytes (%) (Auto) 8 % (24-48) Monocytes (%) (Auto) 3 % (0-9) Eosinophils (%) (Auto) 0 % (0-3) Basophils (%) (Auto) 1 % (0-3) Neutrophils # (Auto) 8.6 x10^3uL (1.8-7.7) Lymphocytes # (Auto) 0.8 x10^3/uL (1.0-4.8) Monocytes # (Auto) 0.3 x10^3/uL (0.0-1.1) Eosinophils # (Auto) 0.0 x10^3/uL (0.0-0.7) Basophils # (Auto) 0.1 x10^3/uL (0.0-0.2) Segmented Neutrophils % 96 % (35-66) Lymphocytes % 4 % (24-48) Platelet Estimate Adequate (ADEQUATE) Sodium Level 149 mmol/L (136-145) Potassium Level 3.1 mmol/L (3.5-5.1) Chloride Level 108 mmol/L (98-107) Carbon Dioxide Level 32 mmol/L (21-32) Anion Gap 9 (6-14) Blood Urea Nitrogen 96 mg/dL (8-26) Creatinine 1.1 mg/dL (0.7-1.3) Estimated GFR (Cockcroft-Gault) 69.2 Glucose Level 155 mg/dL (70-99) Calcium Level 7.9 mg/dL (8.5-10.1) Phosphorus Level 4.6 mg/dL (2.6-4.7) Magnesium Level 2.8 mg/dL (1.8-2.4) Albumin 1.9 g/dL (3.4-5.0) Test 03/25/19 06:43 03/25/19 07:46 03/25/19 08:45 03/25/19 08:50 Glucose (Fingerstick) 162 mg/dL (70-99) 161 mg/dL (70-99) 166 mg/dL (70-99) O2 Saturation 93 % (92-99) Arterial Blood pH 7.42 (7.35-7.45) Arterial Blood pCO2 at Patient Temp 45 mmHg (35-46) Arterial Blood pO2 at Patient Temp 69 mmHg (75-108) Arterial Blood HCO3 29 mmol/L (21-28) Arterial Blood Base Excess 3 mmol/L (-3-3) FiO2 40 Test 03/25/19 08:55 03/25/19 09:55 03/25/19 10:58 03/25/19 12:01 Prothrombin Time 14.4 SEC (11.7-14.0) Prothromb Time International Ratio 1.2 (0.8-1.1) Activated Partial Thromboplast Time 24 SEC (24-38) Glucose (Fingerstick) 149 mg/dL (70-99) 176 mg/dL (70-99) 168 mg/dL (70-99) Test 03/25/19 13:05 03/25/19 14:06 03/25/19 15:04 03/25/19 16:02 Glucose (Fingerstick) 163 mg/dL (70-99) 158 mg/dL (70-99) 166 mg/dL (70-99) 152 mg/dL (70-99) Test 03/25/19 17:05 03/25/19 18:02 03/25/19 19:01 03/25/19 19:58 Glucose (Fingerstick) 135 mg/dL (70-99) 137 mg/dL (70-99) 154 mg/dL (70-99) 154 mg/dL (70-99) Test 03/25/19 20:48 03/25/19 22:58 03/25/19 23:57 03/26/19 01:00 Glucose (Fingerstick) 160 mg/dL (70-99) 170 mg/dL (70-99) 172 mg/dL (70-99) 144 mg/dL (70-99) Test 03/26/19 02:03 03/26/19 03:04 03/26/19 04:04 03/26/19 05:07 Glucose (Fingerstick) 124 mg/dL (70-99) 124 mg/dL (70-99) 121 mg/dL (70-99) 112 mg/dL (70-99) Test 03/26/19 05:30 03/26/19 06:10 03/26/19 06:50 03/26/19 07:10 Sodium Level 145 mmol/L (136-145) Potassium Level 4.1 mmol/L (3.5-5.1) Chloride Level 107 mmol/L (98-107) Carbon Dioxide Level 30 mmol/L (21-32) Anion Gap 8 (6-14) Blood Urea Nitrogen 93 mg/dL (8-26) Creatinine 1.1 mg/dL (0.7-1.3) Estimated GFR (Cockcroft-Gault) 69.2 Glucose Level 132 mg/dL (70-99) Calcium Level 7.6 mg/dL (8.5-10.1) Phosphorus Level 4.4 mg/dL (2.6-4.7) Magnesium Level 2.7 mg/dL (1.8-2.4) Glucose (Fingerstick) 126 mg/dL (70-99) Prothrombin Time 14.0 SEC (11.7-14.0) Prothromb Time International Ratio 1.1 (0.8-1.1) O2 Saturation 91 % (92-99) Arterial Blood pH 7.40 (7.35-7.45) Arterial Blood pCO2 at Patient Temp 51 mmHg (35-46) Arterial Blood pO2 at Patient Temp 62 mmHg (75-108) Arterial Blood HCO3 31 mmol/L (21-28) Arterial Blood Base Excess 5 mmol/L (-3-3) FiO2 40 Test 03/26/19 07:13 03/26/19 08:42 Glucose (Fingerstick) 128 mg/dL (70-99) 136 mg/dL (70-99) Laboratory Tests Test 03/25/19 09:55 03/25/19 10:58 03/25/19 12:01 03/25/19 13:05 Glucose (Fingerstick) 149 mg/dL (70-99) 176 mg/dL (70-99) 168 mg/dL (70-99) 163 mg/dL (70-99) Test 03/25/19 14:06 03/25/19 15:04 03/25/19 16:02 03/25/19 17:05 Glucose (Fingerstick) 158 mg/dL (70-99) 166 mg/dL (70-99) 152 mg/dL (70-99) 135 mg/dL (70-99) Test 03/25/19 18:02 03/25/19 19:01 03/25/19 19:58 03/25/19 20:48 Glucose (Fingerstick) 137 mg/dL (70-99) 154 mg/dL (70-99) 154 mg/dL (70-99) 160 mg/dL (70-99) Test 03/25/19 22:58 03/25/19 23:57 03/26/19 01:00 03/26/19 02:03 Glucose (Fingerstick) 170 mg/dL (70-99) 172 mg/dL (70-99) 144 mg/dL (70-99) 124 mg/dL (70-99) Test 03/26/19 03:04 03/26/19 04:04 03/26/19 05:07 03/26/19 05:30 Glucose (Fingerstick) 124 mg/dL (70-99) 121 mg/dL (70-99) 112 mg/dL (70-99) Sodium Level 145 mmol/L (136-145) Potassium Level 4.1 mmol/L (3.5-5.1) Chloride Level 107 mmol/L (98-107) Carbon Dioxide Level 30 mmol/L (21-32) Anion Gap 8 (6-14) Blood Urea Nitrogen 93 mg/dL (8-26) Creatinine 1.1 mg/dL (0.7-1.3) Estimated GFR (Cockcroft-Gault) 69.2 Glucose Level 132 mg/dL (70-99) Calcium Level 7.6 mg/dL (8.5-10.1) Phosphorus Level 4.4 mg/dL (2.6-4.7) Magnesium Level 2.7 mg/dL (1.8-2.4) Test 03/26/19 06:10 03/26/19 06:50 03/26/19 07:10 03/26/19 07:13 Glucose (Fingerstick) 126 mg/dL (70-99) 128 mg/dL (70-99) Prothrombin Time 14.0 SEC (11.7-14.0) Prothromb Time International Ratio 1.1 (0.8-1.1) O2 Saturation 91 % (92-99) Arterial Blood pH 7.40 (7.35-7.45) Arterial Blood pCO2 at Patient Temp 51 mmHg (35-46) Arterial Blood pO2 at Patient Temp 62 mmHg (75-108) Arterial Blood HCO3 31 mmol/L (21-28) Arterial Blood Base Excess 5 mmol/L (-3-3) FiO2 40 Test 03/26/19 08:42 Glucose (Fingerstick) 136 mg/dL (70-99) Medications Active Scripts Medications Dose Route/Sig Max Daily Dose Days Date Category Proair Hfa Inhaler (Albuterol Sulfate) 8.5 Gm Hfa.aer.ad 1 Puff INH PRN Q6HRS PRN 02/27/19 Reported Lantus Solostar (Insulin Glargine,Hum.rec.anlog) 100 Unit/1 Ml Insuln.pen 20 Unit SQ QHS 02/27/19 Reported Humalog (Insulin Lispro) 100 Unit/1 Ml Cartridge 6 Unit SQ TIDWMEALS 02/27/19 Reported Doxazosin Mesylate 2 Mg Tablet 2 Mg PO DAILY 02/27/19 Reported Omeprazole 40 Mg Capsule.dr 40 Mg PO DAILY 02/27/19 Reported Amlodipine Besylate 10 Mg Tablet 10 Mg PO DAILY 02/27/19 Reported Atorvastatin Calcium 20 Mg Tablet 20 Mg PO DAILY 02/27/19 Reported Atenolol 50 Mg Tablet 50 Mg PO DAILY 02/27/19 Reported Losartan Potassium 100 Mg Tablet 100 Mg PO DAILY 02/27/19 Reported Aspirin 81 Mg Tab.chew 81 Mg PO DAILY 02/27/19 Reported Glyburide 5 Mg Tablet 1 Tab PO BID 11/09/16 Reported Active Scripts Medications Dose Route/Sig Max Daily Dose Days Date Category Proair Hfa Inhaler (Albuterol Sulfate) 8.5 Gm Hfa.aer.ad 1 Puff INH PRN Q6HRS PRN 02/27/19 Reported Lantus Solostar (Insulin Glargine,Hum.rec.anlog) 100 Unit/1 Ml Insuln.pen 20 Unit SQ QHS 02/27/19 Reported Humalog (Insulin Lispro) 100 Unit/1 Ml Cartridge 6 Unit SQ TIDWMEALS 02/27/19 Reported Doxazosin Mesylate 2 Mg Tablet 2 Mg PO DAILY 02/27/19 Reported Omeprazole 40 Mg Capsule.dr 40 Mg PO DAILY 02/27/19 Reported Amlodipine Besylate 10 Mg Tablet 10 Mg PO DAILY 02/27/19 Reported Atorvastatin Calcium 20 Mg Tablet 20 Mg PO DAILY 02/27/19 Reported Atenolol 50 Mg Tablet 50 Mg PO DAILY 02/27/19 Reported Losartan Potassium 100 Mg Tablet 100 Mg PO DAILY 02/27/19 Reported Aspirin 81 Mg Tab.chew 81 Mg PO DAILY 02/27/19 Reported Glyburide 5 Mg Tablet 1 Tab PO BID 11/09/16 Reported Active Scripts Medications Dose Route/Sig Max Daily Dose Days Date Category Proair Hfa Inhaler (Albuterol Sulfate) 8.5 Gm Hfa.aer.ad 1 Puff INH PRN Q6HRS PRN 02/27/19 Reported Lantus Solostar (Insulin Glargine,Hum.rec.anlog) 100 Unit/1 Ml Insuln.pen 20 Unit SQ QHS 02/27/19 Reported Humalog (Insulin Lispro) 100 Unit/1 Ml Cartridge 6 Unit SQ TIDWMEALS 02/27/19 Reported Doxazosin Mesylate 2 Mg Tablet 2 Mg PO DAILY 02/27/19 Reported Omeprazole 40 Mg Capsule.dr 40 Mg PO DAILY 02/27/19 Reported Amlodipine Besylate 10 Mg Tablet 10 Mg PO DAILY 02/27/19 Reported Atorvastatin Calcium 20 Mg Tablet 20 Mg PO DAILY 02/27/19 Reported Atenolol 50 Mg Tablet 50 Mg PO DAILY 02/27/19 Reported Losartan Potassium 100 Mg Tablet 100 Mg PO DAILY 02/27/19 Reported Aspirin 81 Mg Tab.chew 81 Mg PO DAILY 02/27/19 Reported Glyburide 5 Mg Tablet 1 Tab PO BID 11/09/16 Reported Impression . Acute hypoxemic /hypercapnic respiratory failure./ ARDS sepsis./ ARDS In-house cardiopulmonary arrest. Normal EF / mild Pulmonary HTN Acute on chronic right-sided heart failure. Morbid obesity. Diabetes uncontrolled Abnormal CXR/ susperimposed CHF right effusion 03/18, effusion better 03/20 but infiltrates worse Plan . TRACH TODAY CXR REVIEWED SPOKE WITH DR MOYA DECREASE PEEP ANTIBX CCT 30 MIN PT. is DNR MAGO NI MD Mar 26, 2019 09:15
[2019-03-26] MEDS: NYSTATIN 100,000 UNIT/GM TOPICAL CREAM 15GM TUBE. TP SCH ×2 (09:16→20:56)
--- NOTE | 2019-03-26 09:17 | PDOC ---
PROGRESS NOTES Chief Complaint Chief Complaint ARDS Acute respiratory failure secondary to congestive heart failure,ARDS Hypernatremia secondary to severe dehydration . High residuals on tube feedings no evidence of obstructive pattern on x ray done 03/05/2019 Bilateral general scrotal swelling and tenderness. Dm2 obesity, extreme, morbid hx RLE BKA RLE stump with chronic wound. left foot nail onychomycosis Acute renal failure ATN chronic venous insuff left lower leg Bilateral lower lobe consolidation concerning for multifocal pneumonia Right renal hypodensity measuring 2.5 cm Anasarca. bilateral external iliac lymphadenopathy Trace tricuspid regurgitation. Estimated PAP 33-38 mmHg. Diastolic CHF Hypernatremia History of Present Illness History of Present Illness Same On 3 sedations, fentanyl, propofol, Versed Soft belly, no reports of high residuals today PEEP pressures down to 8 with FiO2 40% Lasix down to 80 once a day- Good UO otherwise, N Hypernat getting better plans for trach, temporarily plan for gastrostomy tube Saturday by GI Insulin down to 16 units per hour-on dextrose IVF 1 25 mL because of the hypernatremia Plan: Continue dextrose IVF and insulin Vent per pulmo- on 40 KCl twice a day since hypokalemia is persistent - WOF overcorrection So Far no residuals today PEG plans saturday after trach Discussed with INSTANT [employer]PER[employer]OR Vitals Vitals Vital Signs Date Time Temp Pulse Resp B/P (MAP) Pulse Ox O2 Delivery O2 Flow Rate FiO2 03/26/19 08:25 94 Ventilator 03/26/19 07:00 68 22 149/71 (97) 03/26/19 04:00 98.2 98.2 03/25/19 23:39 40.0 Physical Exam Physical Exam GENERAL: Sedated and intubated. HEENT: Pupils equal, ETT. OGT LUNGS: Diminished HEART: S1, S2. regular ABDOMEN: Obese, distended, decreased bowel sounds, no grimace or guarding to palpation GENITOURINARY: [place] - less scrotal edema but still present EXTREMITIES: Generalized anasarca. RLE stump with chronic wound. No erythema/fluctuance/warmth. no cyanosis SKIN: Warm to touch. [employer]: Unresponsive/sedated on vent RUE-PICC (03/09) clean General: Other (intubated sedated) Heart: Regular rate, Normal S1, Normal S2, No murmurs Lungs: Crackles, Other ( decraesed BLL) Abdomen: No tenderness Extremities: No clubbing, No cyanosis, Other (1+ EDEMA) Skin: No significant lesion Labs LABS Laboratory Tests Test 03/25/19 09:55 03/25/19 10:58 03/25/19 12:01 03/25/19 13:05 Glucose (Fingerstick) 149 mg/dL (70-99) 176 mg/dL (70-99) 168 mg/dL (70-99) 163 mg/dL (70-99) Test 03/25/19 14:06 03/25/19 15:04 03/25/19 16:02 03/25/19 17:05 Glucose (Fingerstick) 158 mg/dL (70-99) 166 mg/dL (70-99) 152 mg/dL (70-99) 135 mg/dL (70-99) Test 03/25/19 18:02 03/25/19 19:01 03/25/19 19:58 03/25/19 20:48 Glucose (Fingerstick) 137 mg/dL (70-99) 154 mg/dL (70-99) 154 mg/dL (70-99) 160 mg/dL (70-99) Test 03/25/19 22:58 03/25/19 23:57 03/26/19 01:00 03/26/19 02:03 Glucose (Fingerstick) 170 mg/dL (70-99) 172 mg/dL (70-99) 144 mg/dL (70-99) 124 mg/dL (70-99) Test 03/26/19 03:04 03/26/19 04:04 03/26/19 05:07 03/26/19 05:30 Glucose (Fingerstick) 124 mg/dL (70-99) 121 mg/dL (70-99) 112 mg/dL (70-99) Sodium Level 145 mmol/L (136-145) Potassium Level 4.1 mmol/L (3.5-5.1) Chloride Level 107 mmol/L (98-107) Carbon Dioxide Level 30 mmol/L (21-32) Anion Gap 8 (6-14) Blood Urea Nitrogen 93 mg/dL (8-26) Creatinine 1.1 mg/dL (0.7-1.3) Estimated GFR (Cockcroft-Gault) 69.2 Glucose Level 132 mg/dL (70-99) Calcium Level 7.6 mg/dL (8.5-10.1) Phosphorus Level 4.4 mg/dL (2.6-4.7) Magnesium Level 2.7 mg/dL (1.8-2.4) Test 03/26/19 06:10 03/26/19 06:50 03/26/19 07:10 03/26/19 07:13 Glucose (Fingerstick) 126 mg/dL (70-99) 128 mg/dL (70-99) Prothrombin Time 14.0 SEC (11.7-14.0) Prothromb Time International Ratio 1.1 (0.8-1.1) O2 Saturation 91 % (92-99) Arterial Blood pH 7.40 (7.35-7.45) Arterial Blood pCO2 at Patient Temp 51 mmHg (35-46) Arterial Blood pO2 at Patient Temp 62 mmHg (75-108) Arterial Blood HCO3 31 mmol/L (21-28) Arterial Blood Base Excess 5 mmol/L (-3-3) FiO2 40 Test 03/26/19 08:42 Glucose (Fingerstick) 136 mg/dL (70-99) Review of Systems Review of Systems Into bated sedated Assessment and Plan Assessmemt and Plan Problems Medical Problems: (1) Acute renal failure Status: Acute (2) Edema Status: Acute (3) Shortness of breath Status: Acute Comment Review of Relevant I have reviewed the following items pascual (where applicable) has been applied. Labs Laboratory Tests Test 03/24/19 09:39 03/24/19 10:34 03/24/19 12:13 03/24/19 13:21 Glucose (Fingerstick) 175 mg/dL (70-99) 161 mg/dL (70-99) 173 mg/dL (70-99) 174 mg/dL (70-99) Test 03/24/19 14:42 03/24/19 15:45 03/24/19 17:04 03/24/19 17:55 Glucose (Fingerstick) 156 mg/dL (70-99) 143 mg/dL (70-99) 137 mg/dL (70-99) 128 mg/dL (70-99) Test 03/24/19 18:59 03/24/19 20:02 03/24/19 21:21 03/24/19 22:24 Glucose (Fingerstick) 123 mg/dL (70-99) 131 mg/dL (70-99) 120 mg/dL (70-99) 117 mg/dL (70-99) Test 03/24/19 23:32 03/25/19 00:26 03/25/19 01:31 03/25/19 02:30 Glucose (Fingerstick) 127 mg/dL (70-99) 117 mg/dL (70-99) 128 mg/dL (70-99) 122 mg/dL (70-99) Test 03/25/19 03:35 03/25/19 04:37 03/25/19 05:30 03/25/19 05:31 Glucose (Fingerstick) 143 mg/dL (70-99) 130 mg/dL (70-99) 128 mg/dL (70-99) White Blood Count 9.7 x10^3/uL (4.0-11.0) Red Blood Count 3.65 x10^6/uL (4.30-5.70) Hemoglobin 11.0 g/dL (13.0-17.5) Hematocrit 33.9 % (39.0-53.0) Mean Corpuscular Volume 93 fL (79-100) Mean Corpuscular Hemoglobin 30 pg (25-35) Mean Corpuscular Hemoglobin Concent 32 g/dL (31-37) Red Cell Distribution Width 13.9 % (11.5-14.5) Platelet Count 266 x10^3/uL (140-400) Neutrophils (%) (Auto) 89 % (31-73) Lymphocytes (%) (Auto) 8 % (24-48) Monocytes (%) (Auto) 3 % (0-9) Eosinophils (%) (Auto) 0 % (0-3) Basophils (%) (Auto) 1 % (0-3) Neutrophils # (Auto) 8.6 x10^3uL (1.8-7.7) Lymphocytes # (Auto) 0.8 x10^3/uL (1.0-4.8) Monocytes # (Auto) 0.3 x10^3/uL (0.0-1.1) Eosinophils # (Auto) 0.0 x10^3/uL (0.0-0.7) Basophils # (Auto) 0.1 x10^3/uL (0.0-0.2) Segmented Neutrophils % 96 % (35-66) Lymphocytes % 4 % (24-48) Platelet Estimate Adequate (ADEQUATE) Sodium Level 149 mmol/L (136-145) Potassium Level 3.1 mmol/L (3.5-5.1) Chloride Level 108 mmol/L (98-107) Carbon Dioxide Level 32 mmol/L (21-32) Anion Gap 9 (6-14) Blood Urea Nitrogen 96 mg/dL (8-26) Creatinine 1.1 mg/dL (0.7-1.3) Estimated GFR (Cockcroft-Gault) 69.2 Glucose Level 155 mg/dL (70-99) Calcium Level 7.9 mg/dL (8.5-10.1) Phosphorus Level 4.6 mg/dL (2.6-4.7) Magnesium Level 2.8 mg/dL (1.8-2.4) Albumin 1.9 g/dL (3.4-5.0) Test 03/25/19 06:43 03/25/19 07:46 03/25/19 08:45 03/25/19 08:50 Glucose (Fingerstick) 162 mg/dL (70-99) 161 mg/dL (70-99) 166 mg/dL (70-99) O2 Saturation 93 % (92-99) Arterial Blood pH 7.42 (7.35-7.45) Arterial Blood pCO2 at Patient Temp 45 mmHg (35-46) Arterial Blood pO2 at Patient Temp 69 mmHg (75-108) Arterial Blood HCO3 29 mmol/L (21-28) Arterial Blood Base Excess 3 mmol/L (-3-3) FiO2 40 Test 03/25/19 08:55 03/25/19 09:55 03/25/19 10:58 03/25/19 12:01 Prothrombin Time 14.4 SEC (11.7-14.0) Prothromb Time International Ratio 1.2 (0.8-1.1) Activated Partial Thromboplast Time 24 SEC (24-38) Glucose (Fingerstick) 149 mg/dL (70-99) 176 mg/dL (70-99) 168 mg/dL (70-99) Test 03/25/19 13:05 03/25/19 14:06 03/25/19 15:04 03/25/19 16:02 Glucose (Fingerstick) 163 mg/dL (70-99) 158 mg/dL (70-99) 166 mg/dL (70-99) 152 mg/dL (70-99) Test 03/25/19 17:05 03/25/19 18:02 03/25/19 19:01 03/25/19 19:58 Glucose (Fingerstick) 135 mg/dL (70-99) 137 mg/dL (70-99) 154 mg/dL (70-99) 154 mg/dL (70-99) Test 03/25/19 20:48 03/25/19 22:58 03/25/19 23:57 03/26/19 01:00 Glucose (Fingerstick) 160 mg/dL (70-99) 170 mg/dL (70-99) 172 mg/dL (70-99) 144 mg/dL (70-99) Test 03/26/19 02:03 03/26/19 03:04 03/26/19 04:04 03/26/19 05:07 Glucose (Fingerstick) 124 mg/dL (70-99) 124 mg/dL (70-99) 121 mg/dL (70-99) 112 mg/dL (70-99) Test 03/26/19 05:30 03/26/19 06:10 03/26/19 06:50 03/26/19 07:10 Sodium Level 145 mmol/L (136-145) Potassium Level 4.1 mmol/L (3.5-5.1) Chloride Level 107 mmol/L (98-107) Carbon Dioxide Level 30 mmol/L (21-32) Anion Gap 8 (6-14) Blood Urea Nitrogen 93 mg/dL (8-26) Creatinine 1.1 mg/dL (0.7-1.3) Estimated GFR (Cockcroft-Gault) 69.2 Glucose Level 132 mg/dL (70-99) Calcium Level 7.6 mg/dL (8.5-10.1) Phosphorus Level 4.4 mg/dL (2.6-4.7) Magnesium Level 2.7 mg/dL (1.8-2.4) Glucose (Fingerstick) 126 mg/dL (70-99) Prothrombin Time 14.0 SEC (11.7-14.0) Prothromb Time International Ratio 1.1 (0.8-1.1) O2 Saturation 91 % (92-99) Arterial Blood pH 7.40 (7.35-7.45) Arterial Blood pCO2 at Patient Temp 51 mmHg (35-46) Arterial Blood pO2 at Patient Temp 62 mmHg (75-108) Arterial Blood HCO3 31 mmol/L (21-28) Arterial Blood Base Excess 5 mmol/L (-3-3) FiO2 40 Test 03/26/19 07:13 03/26/19 08:42 Glucose (Fingerstick) 128 mg/dL (70-99) 136 mg/dL (70-99) Laboratory Tests Test 03/25/19 09:55 03/25/19 10:58 03/25/19 12:01 03/25/19 13:05 Glucose (Fingerstick) 149 mg/dL (70-99) 176 mg/dL (70-99) 168 mg/dL (70-99) 163 mg/dL (70-99) Test 03/25/19 14:06 03/25/19 15:04 03/25/19 16:02 03/25/19 17:05 Glucose (Fingerstick) 158 mg/dL (70-99) 166 mg/dL (70-99) 152 mg/dL (70-99) 135 mg/dL (70-99) Test 03/25/19 18:02 03/25/19 19:01 03/25/19 19:58 03/25/19 20:48 Glucose (Fingerstick) 137 mg/dL (70-99) 154 mg/dL (70-99) 154 mg/dL (70-99) 160 mg/dL (70-99) Test 03/25/19 22:58 03/25/19 23:57 03/26/19 01:00 03/26/19 02:03 Glucose (Fingerstick) 170 mg/dL (70-99) 172 mg/dL (70-99) 144 mg/dL (70-99) 124 mg/dL (70-99) Test 03/26/19 03:04 03/26/19 04:04 03/26/19 05:07 03/26/19 05:30 Glucose (Fingerstick) 124 mg/dL (70-99) 121 mg/dL (70-99) 112 mg/dL (70-99) Sodium Level 145 mmol/L (136-145) Potassium Level 4.1 mmol/L (3.5-5.1) Chloride Level 107 mmol/L (98-107) Carbon Dioxide Level 30 mmol/L (21-32) Anion Gap 8 (6-14) Blood Urea Nitrogen 93 mg/dL (8-26) Creatinine 1.1 mg/dL (0.7-1.3) Estimated GFR (Cockcroft-Gault) 69.2 Glucose Level 132 mg/dL (70-99) Calcium Level 7.6 mg/dL (8.5-10.1) Phosphorus Level 4.4 mg/dL (2.6-4.7) Magnesium Level 2.7 mg/dL (1.8-2.4) Test 03/26/19 06:10 03/26/19 06:50 03/26/19 07:10 03/26/19 07:13 Glucose (Fingerstick) 126 mg/dL (70-99) 128 mg/dL (70-99) Prothrombin Time 14.0 SEC (11.7-14.0) Prothromb Time International Ratio 1.1 (0.8-1.1) O2 Saturation 91 % (92-99) Arterial Blood pH 7.40 (7.35-7.45) Arterial Blood pCO2 at Patient Temp 51 mmHg (35-46) Arterial Blood pO2 at Patient Temp 62 mmHg (75-108) Arterial Blood HCO3 31 mmol/L (21-28) Arterial Blood Base Excess 5 mmol/L (-3-3) FiO2 40 Test 03/26/19 08:42 Glucose (Fingerstick) 136 mg/dL (70-99) Microbiology 03/05/19 Blood Culture - Final, Complete NO GROWTH AFTER 5 DAYS 03/08/19 - Final, Complete 03/08/19 - Final, Complete 03/08/19 - Final, Complete 03/08/19 Gram Stain Evaluation - Final, Complete 03/08/19 Sputum Culture - Final, Complete 03/08/19 Sputum Result 1 - Final, Complete 03/02/19 Urine Culture - Final, Complete 03/02/19 Urine Culture Result 1 (LUCIO) - Final, Complete 03/09/19 Aerobic Culture - Final, Complete 03/09/19 Aerobic Culture Result 1 (LUCIO) - Final, Complete 03/09/19 Gram Stain - Final, Complete 03/09/19 Gram Stain Result 1 (LUCIO) - Final, Complete 03/09/19 Gram Stain Result 2 (LUCIO) - Final, Complete Medications Current Medications Ondansetron HCl (Zofran) 4 mg PRN Q8HRS PRN IV NAUSEA/VOMITING; Start 02/27/19 at 16:45; Stop 02/28/19 at 16:44; Status DC Morphine Sulfate (Morphine Sulfate) 2 mg PRN Q2HR PRN IV PAIN; Start 02/27/19 at 16:45; Stop 02/28/19 at 16:44; Status DC Acetaminophen (Tylenol) 650 mg PRN Q4HRS PRN PO FEVER Last administered on 02/27/19at 21:06; Start 02/27/19 at 16:45; Stop 02/28/19 at 16:44; Status DC Dextrose (Dextrose 50%-Water Syringe) 12.5 gm PRN Q15MIN PRN IV SEE COMMENTS; Start 02/27/19 at 16:45; Stop 03/10/19 at 13:48; Status DC Heparin Sodium (Porcine) (Heparin Sodium) 5,000 unit Q8HRS SQ Last administered on 03/26/19at 05:48; Start 02/27/19 at 17:00 Lorazepam (Ativan) 1 mg PRN Q8HRS PRN IV ANXIETY / AGITATION Last administered on 03/08/19at 03:37; Start 02/28/19 at 02:45 Etomidate (Amidate) 20 mg STK-MED ONCE IV ; Start 02/28/19 at 06:59; Stop 02/28/19 at 07:00; Status DC Rocuronium [place] (Zemuron) 50 mg STK-MED ONCE .ROUTE ; Start 02/28/19 at 07:00; Stop 02/28/19 at 09:42; Status DC Dopamine HCl/ Dextrose 250 ml @ 12.266 mls/ hr CONT PRN IV SEE I/O RECORD Last administered on 02/28/19at 08:06; Start 02/28/19 at 07:15; Stop 03/17/19 at 15:50; Status DC Fentanyl Citrate 30 ml @ 0 mls/hr CONT PRN IV SEE PROTOCOL; Start 02/28/19 at 07:15; Stop 02/28/19 at 07:59; Status DC Propofol 100 ml @ 0 mls/hr CONT PRN IV SEE PROTOCOL; Start 02/28/19 at 07:15; Stop 02/28/19 at 07:59; Status DC Fentanyl Citrate (Fentanyl 2ml Vial) 25 mcg PRN Q1HR PRN IV SEE COMMENTS; Start 02/28/19 at 07:15; Stop 02/28/19 at 07:59; Status DC Fentanyl Citrate (Fentanyl 2ml Vial) 50 mcg PRN Q1HR PRN IV SEE COMMENTS; Start 02/28/19 at 07:15; Stop 02/28/19 at 07:59; Status DC Midazolam HCl 100 ml @ 0 mls/hr CONT PRN IV SEE PROTOCOL Last administered on 03/26/19at 02:46; Start 02/28/19 at 07:15 Sodium Chloride 1,000 ml @ 1,000 mls/hr Q1H IV Last administered on 02/28/19at 07:32; Start 02/28/19 at 07:32; Stop 02/28/19 at 10:09; Status DC Fentanyl Citrate (Fentanyl 2ml Vial) 25 mcg PRN Q30MIN PRN IV see comments; Start 02/28/19 at 07:45; Stop 02/28/19 at 09:42; Status DC Lorazepam (Ativan) 1 mg PRN Q30MIN PRN IV SEDATION; Start 02/28/19 at 07:45; Stop 02/28/19 at 09:42; Status DC Fentanyl Citrate 30 ml @ 2.5 mls/hr CONT PRN PRN IV SEE I/O RECORD Last administered on 03/05/19at 03:44; Start 02/28/19 at 07:45; Stop 03/05/19 at 04:40; Status DC Propofol 100 ml @ 0 mls/hr CONT PRN IV SEE I/O RECORD Last administered on 03/26/19at 00:01; Start 02/28/19 at 07:45 Vecuronium [place] (Norcuron Bolus) 10 mg PRN Q30MIN PRN IV SHIVERING; Start 02/28/19 at 07:45; Stop 02/28/19 at 09:42; Status DC Meperidine HCl (Demerol) 12.5 mg PRN Q30MIN PRN IV SHIVERING; Start 02/28/19 at 07:45; Stop 02/28/19 at 09:42; Status DC Multi-Ingred Cream/Lotion/Oil/ Oint (Artificial Tears Eye Ointment) 1 jennifer PRN Q6HRS PRN OU 0.5 INCH FOR DRY EYE; Start 02/28/19 at 07:45; Stop 02/28/19 at 09:42; Status DC Famotidine (Pepcid Vial) 20 mg BID IVP Last administered on 02/28/19at 11:03; Start 02/28/19 at 09:00; Stop 02/28/19 at 14:25; Status DC Aspirin (Aspirin) 300 mg DAILY [place] ; Start 02/28/19 at 09:00; Stop 02/28/19 at 09:42; Status DC Sodium Chloride (Normal Saline Flush) 3 ml QSHIFT PRN IV AFTER MEDS AND BLOOD DRAWS; Start 02/28/19 at 07:45 Acetaminophen (Tylenol) 650 mg Q6HRS NG ; Start 02/28/19 at 12:00; Stop 02/28/19 at 12:00; Status DC Acetaminophen (Tylenol Supp) 650 mg PRN Q6HRS PRN [place] MILD PAIN / TEMP; Start 03/01/19 at 07:45; Stop 03/01/19 at 07:45; Status DC Acetaminophen (Tylenol) 650 mg PRN Q6HRS PRN NG MILD PAIN / TEMP; Start 03/01/19 at 07:45; Stop 03/01/19 at 07:45; Status DC Info (Icu Electrolyte Protocol) 1 ea DAILY PRN MC PER PROTOCOL; Start 03/02/19 at 07:45; Stop 03/02/19 at 07:45; Status DC Furosemide (Lasix) 60 mg 1X ONCE IVP Last administered on 02/28/19at 08:30; Start 02/28/19 at 08:30; Stop 02/28/19 at 08:31; Status DC Ceftriaxone Sodium (Rocephin) 1 gm Q24H IVP Last administered on 02/28/19at 11:03; Start 02/28/19 at 11:00; Stop 02/28/19 at 11:18; Status DC Calcium Chloride 1000 mg/Dextrose 60 ml @ 120 mls/hr 1X ONCE IV Last administered on 02/28/19at 11:03; Start 02/28/19 at 10:30; Stop 02/28/19 at 10:59; Status DC Meropenem 500 mg/ Sodium Chloride 50 ml @ 100 mls/hr Q8HRS IV Last admini stered on 03/03/19at 06:24; Start 02/28/19 at 14:00; Stop 03/03/19 at 07:04; Status DC Linezolid/Dextrose 300 ml @ 300 mls/hr Q12HR IV Last administered on 03/03/19at 20:00; Start 02/28/19 at 11:30; Stop 03/04/19 at 08:55; Status DC Micafungin Sodium 100 mg/Dextrose 100 ml @ 100 mls/hr Q24H IV Last administered on 03/04/19 15:53; Start 02/28/19 at 12:00; Stop 03/05/19 at 06:47; Status DC Furosemide (Lasix) 40 mg [id number] IVP Last administered on 03/02/19 14:06; Start 02/28/19 at 14:00; Stop 03/02/19 at 17:02; Status DC Famotidine (Pepcid Vial) 20 mg QHS IVP Last administered on 03/01/19 21:24; Start 02/28/19 at 21:00; Stop 03/02/19 at 10:07; Status DC Albuterol/ Ipratropium (Duoneb) 3 ml RTQID NEB Last administered on 03/26/19at 07:01; Start 02/28/19 at 16:00 Haloperidol Lactate (Haldol Inj) 5 mg PRN Q6HRS PRN IVP AGITATION 2ND CHOICE Last administered on 03/09/19at 14:07; Start 02/28/19 at 15:15 Vecuronium [place] (Norcuron Bolus) 8 mg PRN Q4HRS PRN IV MUSCLE SPASMS Last administered on 03/12/19at 23:48; Start 02/28/19 at 15:15 Perflutren Protein Type A Microsphe (Optison) 0.66 mg PRN 1X PRN IV SEE COMMENTS; Start 03/01/19 at 10:00; Stop 03/02/19 at 09:59; Status DC Digoxin (Lanoxin) 125 mcg 1X STAT IV ; Start 03/01/19 at 15:34; Stop 03/01/19 at 16:00; Status DC Sodium Chloride 500 ml @ 500 mls/hr 1X ONCE IV Last administered on 03/01/19at 18:46; Start 03/01/19 at 18:45; Stop 03/01/19 at 19:44; Status DC Famotidine (Pepcid Vial) 20 mg Q12HR IVP Last administered on 03/25/19at 20:50; Start 03/02/19 at 21:00 Furosemide (Lasix) 40 mg DAILY IVP Last administered on 03/04/19 09:52; Start 03/03/19 at 09:00; Stop 03/04/19 at 12:13; Status DC Acetaminophen (Tylenol Supp) 650 mg PRN Q6HRS PRN [place] MILD PAIN / TEMP Last administered on 03/03/19 17:39; Start 03/02/19 at 17:15 Meropenem 500 mg/ Sodium Chloride 50 ml @ 100 mls/hr Q6HRS IV Last administered on 03/05/19 05:33; Start 03/03/19 at 12:00; Stop 03/05/19 at 06:47; Status DC Albumin Human 100 ml @ 100 mls/hr 1X ONCE IV Last administered on 03/03/19 08:52; Start 03/03/19 at 08:30; Stop 03/03/19 at 09:29; Status DC Atropine Sulfate (ATROPINE 0.5mg SYRINGE) 2 mg STK-MED ONCE .ROUTE ; Start 02/27/19 at 16:21; Stop 03/03/19 at 16:22; Status DC Dopamine HCl/ Dextrose (DOPamine 400MG/ 250ML PREMIX) 400 mg STK-MED ONCE IV ; Start 02/27/19 at 16:21; Stop 03/03/19 at 16:22; Status DC Furosemide (Lasix) 40 mg 1X ONCE IVP Last administered on 03/03/19 18:46; Start 03/03/19 at 18:45; Stop 03/03/19 at 18:46; Status DC Lorazepam 100 mg/ Sodium Chloride 100 ml @ 0 mls/hr CONT PRN IV SEE PROTOCOL Last administered on 03/03/19at 22:18; Start 03/03/19 at 22:00; Stop 03/17/19 at 15:39; Status DC Acetaminophen (Tylenol) 650 mg PRN Q6HRS PRN PEG MILD PAIN / TEMP Last administered on 03/10/19 20:48; Start 03/04/19 at 11:45 Furosemide (Lasix) 40 mg [id number] IVP Last administered on 03/06/19 08:38; Start 03/04/19 at 14:00; Stop 03/06/19 at 13:30; Status DC Fentanyl Citrate 30 ml @ 0 mls/hr CONT PRN IV SEE PROTOCOL Last administered on 03/26/19 05:43; Start 03/05/19 at 04:45 Cefepime HCl (Maxipime) 2 gm Q8HRS IVP Last administered on 03/10/19 05:43; Start 03/05/19 at 06:45; Stop 03/10/19 at 08:29; Status DC Metronidazole 100 ml @ 100 mls/hr Q8HRS IV Last administered on 03/10/19 05:45; Start 03/05/19 at 06:45; Stop 03/10/19 at 08:29; Status DC Linezolid/Dextrose 300 ml @ 300 mls/hr Q12HR IV Last administered on 03/05/19 21:24; Start 03/05/19 at 09:00; Stop 03/06/19 at 06:42; Status DC Metoclopramide HCl (Reglan Vial) 10 mg QIDACHS IV Last administered on 03/06/19 20:43; Start 03/05/19 at 11:30; Stop 03/07/19 at 07:37; Status DC Insulin Glargine (Lantus) 12 units BID SQ Last administered on 03/09/19 09:29; Start 03/05/19 at 09:00; Stop 03/09/19 at 17:11; Status DC Digoxin (Lanoxin) 500 mcg 1X ONCE IV Last administered on 03/06/19 00:48; Start 03/06/19 at 00:45; Stop 03/06/19 at 00:46; Status DC Metoprolol Tartrate (Lopressor Vial) 5 mg 1X ONCE IVP Last administered on 03/06/19 00:53; Start 03/06/19 at 00:45; Stop 03/06/19 at 00:46; Status DC Sodium Chloride 500 ml @ 500 mls/hr 1X ONCE IV Last administered on 03/06/19 00:49; Start 03/06/19 at 00:45; Stop 03/06/19 at 01:44; Status DC Nystatin (Mycostatin) 1 jennifer BID TP Last administered on 03/25/19 20:43; Start 03/06/19 at 09:00 Sodium Cl/Sod Bicarb/Potass Cl/ PEG (Golytely) 2,000 ml 1X ONCE PO Last administered on 03/06/19 09:33; Start 03/06/19 at 08:00; Stop 03/06/19 at 08:01; Status DC Furosemide (Lasix) 40 mg DAILY08 IVP Last administered on 03/09/19 09:27; Start 03/07/19 at 08:00; Stop 03/09/19 at 12:45; Status DC Metoprolol Tartrate (Lopressor Vial) 10 mg 1X ONCE IVP Last administered on 03/06/19 16:08; Start 03/06/19 at 15:15; Stop 03/06/19 at 15:16; Status DC Metoprolol Tartrate (Lopressor Vial) 5 mg Q6HRS IVP Last administered on 03/07/19 17:03; Start 03/06/19 at 18:00; Stop 03/07/19 at 18:27; Status DC Aspirin (Children'S Aspirin) 81 mg 1X ONCE PO Last administered on 03/06/19 18:18; Start 03/06/19 at 17:00; Stop 03/06/19 at 17:01; Status DC Aspirin (Children'S Aspirin) 81 mg DAILYWBKFT PO Last administered on 03/25/19 08:49; Start 03/07/19 at 08:00 Labetalol HCl (Normodyne Iv Push) 20 mg PRN Q2HR PRN IVP HYPERTENSION, SEE COMMENTS Last administered on 03/06/19 21:29; Start 03/06/19 at 17:15 Digoxin (Lanoxin) 250 mcg 1X ONCE IV Last administered on 03/06/19 22:00; Start 03/06/19 at 22:00; Stop 03/06/19 at 22:01; Status DC Diltiazem HCl 125 mg/Dextrose 125 ml @ 5 mls/hr CONT PRN IV SEE I/O RECORD Last administered on 03/12/19at 08:20; Start 03/06/19 at 23:00; Stop 03/12/19 at 11:03; Status DC Metoclopramide HCl (Reglan Vial) 10 mg Q6HRS IV ; Start 03/07/19 at 08:00; Stop 03/08/19 at 07:51; Status DC Metoprolol Tartrate (Lopressor Vial) 5 mg Q6HRS IVP Last administered on 03/26/19at 05:47; Start 03/08/19 at 12:00 Furosemide (Lasix) 40 mg 1X ONCE IVP Last administered on 03/08/19at 21:21; S tart 03/08/19 at 21:00; Stop 03/08/19 at 21:01; Status DC Furosemide (Lasix) 20 mg DAILY08 IVP ; Start 03/10/19 at 08:00; Stop 03/10/19 at 08:00; Status DC Furosemide (Lasix) 20 mg DAILY08 IVP Last administered on 03/14/19at 07:41; Start 03/10/19 at 08:00; Stop 03/15/19 at 07:32; Status DC Insulin Glargine (Lantus) 16 units BID SQ Last administered on 03/12/19at 00:09; Start 03/09/19 at 21:00; Stop 03/12/19 at 07:18; Status DC Insulin Human Lispro (HumaLOG) 0-9 UNITS Q6HRS SQ Last administered on 03/12/19at 05:45; Start 03/09/19 at 18:00; Stop 03/12/19 at 07:18; Status DC Dextrose (Dextrose 50%-Water Syringe) 12.5 gm PRN Q15MIN PRN IV SEE COMMENTS; Start 03/09/19 at 17:15; Stop 03/21/19 at 10:07; Status DC Cefepime HCl (Maxipime) 2 gm Q12HR IVP Last administered on 03/21/19at 08:26; Start 03/10/19 at 21:00; Stop 03/21/19 at 12:48; Status DC Insulin Human Lispro (HumaLOG) 15 units 1X ONCE SQ Last administered on 03/11/19at 00:14; Start 03/11/19 at 00:00; Stop 03/11/19 at 00:01; Status DC Insulin Glargine (Lantus) 20 units BID SQ Last administered on 03/17/19at 08:32; Start 03/12/19 at 09:00; Stop 03/17/19 at 10:46; Status DC Insulin Human Lispro (HumaLOG) 0-9 UNITS Q6HRS SQ Last administered on 03/21/19at 06:35; Start 03/12/19 at 12:00; Stop 03/21/19 at 10:00; Status DC Diltiazem HCl (Cardizem) 30 mg Q6HRS PO Last administered on 03/26/19at 05:46; Start 03/12/19 at 12:00 Furosemide (Lasix) 20 mg 1X ONCE IVP Last administered on 03/13/19at 11:04; Start 03/13/19 at 10:30; Stop 03/13/19 at 10:31; Status DC Furosemide (Lasix) 20 mg 1X ONCE IVP Last administered on 03/14/19at 07:40; Start 03/14/19 at 07:15; Stop 03/14/19 at 14:05; Status DC Furosemide (Lasix) 40 mg Q8HRS IVP Last administered on 03/17/19at 05:49; Start 03/14/19 at 22:00; Stop 03/17/19 at 10:58; Status DC Albuterol Sulfate (Ventolin Neb Soln) 2.5 mg 1X ONCE NEB Last administered on 03/16/19at 04:00; Start 03/16/19 at 04:00; Stop 03/16/19 at 04:01; Status DC Methylprednisolone Sodium Succinate (SOLU-Medrol 40MG VIAL) 80 mg 1X ONCE IV Last administered on 03/16/19at 04:17; Start 03/16/19 at 04:30; Stop 03/16/19 at 04:31; Status DC Furosemide (Lasix) 20 mg 1X ONCE IVP Last administered on 03/16/19at 04:17; Start 03/16/19 at 04:30; Stop 03/16/19 at 04:31; Status DC Insulin Glargine (Lantus) 25 units BID SQ Last administered on 03/21/19at 08:55; Start 03/17/19 at 21:00; Stop 03/21/19 at 10:00; Status DC Insulin Human Lispro (HumaLOG) 10 units Q6HRS SQ ; Start 03/17/19 at 12:00; Stop 03/17/19 at 13:32; Status DC Furosemide (Lasix) 40 mg QD IVP Last administered on 03/18/19at 05:55; Start 03/18/19 at 06:00; Stop 03/18/19 at 10:54; Status DC Insulin Human Lispro (HumaLOG) 3 units Q6HRS SQ Last administered on 03/19/19at 06:12; Start 03/17/19 at 18:00; Stop 03/19/19 at 08:28; Status DC Azithromycin 250 mg/Sodium Chloride 250 ml @ 250 mls/hr Q24H IV Last administered on 03/23/19at 08:13; Start 03/18/19 at 08:00; Stop 03/23/19 at 16:23; Status DC Alteplase, Recombinant (Cathflo For Central Catheter Clearance) 1 mg 1X ONCE INT CAT Last administered on 03/18/19at 09:21; Start 03/18/19 at 07:30; Stop 03/18/19 at 07:31; Status DC Alteplase, Recombinant (Cathflo For Central Catheter Clearance) 1 mg 1X ONCE INT CAT Last administered on 03/18/19at 11:04; Start 03/18/19 at 07:30; Stop 03/18/19 at 07:31; Status DC Alteplase, Recombinant (Cathflo For Central Catheter Clearance) 1 mg 1X ONCE INT CAT Last administered on 03/18/19at 13:26; Start 03/18/19 at 07:30; Stop 03/18/19 at 07:31; Status DC Furosemide (Lasix) 60 mg 1X ONCE IVP Last administered on 03/18/19at 11:04; Start 03/18/19 at 10:54; Stop 03/18/19 at 10:55; Status DC Furosemide (Lasix) 40 mg Q8HRS IVP ; Start 03/18/19 at 14:00; Stop 03/18/19 at 17:53; Status DC Digoxin (Lanoxin) 250 mcg 1X ONCE IV Last administered on 03/18/19at 15:48; Start 03/18/19 at 15:30; Stop 03/18/19 at 15:33; Status DC Furosemide (Lasix) 40 mg Q8HRS IVP Last administered on 03/20/19at 05:42; Start 03/18/19 at 20:00; Stop 03/20/19 at 08:48; Status DC Digoxin (Lanoxin) 500 mcg 1X ONCE IV Last administered on 03/18/19at 19:35; Start 03/18/19 at 20:00; Stop 03/18/19 at 20:01; Status DC Insulin Human Lispro (HumaLOG) 6 units Q6HRS SQ Last administered on 03/20/19at 05:45; Start 03/19/19 at 12:00; Stop 03/20/19 at 08:48; Status DC Furosemide (Lasix) 80 mg Q8HRS IVP Last administered on 03/22/19at 12:43; Start 03/20/19 at 14:00; Stop 03/22/19 at 17:00; Status DC Insulin Human Lispro (HumaLOG) 9 units Q6HRS SQ Last administered on 03/21/19at 06:36; Start 03/20/19 at 12:00; Stop 03/21/19 at 10:00; Status DC Methylprednisolone Sodium Succinate (SOLU-Medrol 125MG VIAL) 80 mg Q8HRS IV Last administered on 03/26/19at 05:46; Start 03/20/19 at 11:00 Alteplase, Recombinant (Cathflo For Central Catheter Clearance) 1 mg 1X ONCE INT CAT Last administered on 03/20/19at 20:23; Start 03/20/19 at 20:00; Stop 03/20/19 at 20:09; Status DC Alteplase, Recombinant (Cathflo For Central Catheter Clearance) 1 mg 1X ONCE INT CAT Last administered on 03/20/19at 20:23; Start 03/20/19 at 20:00; Stop 03/20/19 at 20:09; Status DC Alteplase, Recombinant (Cathflo For Central Catheter Clearance) 1 mg 1X ONCE INT CAT Last administered on 03/20/19at 20:23; Start 03/20/19 at 20:00; Stop 03/20/19 at 20:09; Status DC Insulin Human Regular 150 unit/ Sodium Chloride 151.5 ml @ 0 mls/hr CONT PRN IV SEE I/O RECORD Last administered on 03/26/19 03:06; Start 03/21/19 at 10:00 Dextrose (Dextrose 50%-Water Syringe) 12.5 gm PRN Q15MIN PRN IV LOW BLOOD SUGAR; Start 03/21/19 at 10:00 Furosemide (Lasix) 80 mg DAILY06 IVP Last administered on 03/26/19 05:45; Sta rt 03/23/19 at 06:00 Potassium Chloride (KCl Oral Soln) 40 meq 1X ONCE PEG Last administered on 03/22/19 17:14; Start 03/22/19 at 17:30; Stop 03/22/19 at 17:31; Status DC Metoclopramide HCl (Reglan Vial) 10 mg PRN Q6HRS PRN IV NAUSEA/VOMITING Last administered on 03/24/19 11:02; Start 03/23/19 at 10:30; Stop 03/24/19 at 11:04; Status DC Dextrose 1,000 ml @ 125 mls/hr Q8H IV Last administered on 03/26/19 05:44; Start 03/23/19 at 11:15 Potassium Chloride (KCl Oral Soln) 40 meq 1X ONCE PEG Last administered on 03/24/19 10:32; Start 03/24/19 at 08:30; Stop 03/24/19 at 08:31; Status DC Metoclopramide HCl (Reglan Vial) 10 mg Q8HRS IV Last administered on 03/26/19 05:45; Start 03/24/19 at 14:00 Insulin Glargine (Lantus) 10 units BID SQ Last administered on 03/25/19 20:49; Start 03/24/19 at 21:00 Potassium Chloride (KCl Oral Soln) 40 meq 1X ONCE PEG Last administered on 08:50; Start 03/25/19 at 08:15; Stop 03/25/19 at 08:16; Status DC Potassium Chloride (KCl Oral Soln) 40 meq BID PEG Last administered on 03/25/19 20:45; Start 03/25/19 at 10:00 Fentanyl Citrate (Fentanyl 2ml Vial) 25 mcg PRN Q5MIN PRN IV MILD PAIN; Start 03/26/19 at 07:00; Stop 03/27/19 at 06:59 Fentanyl Citrate (Fentanyl 2ml Vial) 50 mcg PRN Q5MIN PRN IV MODERATE TO SEVERE PAIN; Start 03/26/19 at 07:00; Stop 03/27/19 at 06:59 Morphine Sulfate (Morphine Sulfate) 1 mg PRN Q10MIN PRN IV SEVERE PAIN; Start 03/26/19 at 07:00; Stop 03/27/19 at 06:59 Ringer's Solution 1,000 ml @ 30 mls/hr Q24H IV ; Start 03/26/19 at 07:00; Stop 03/26/19 at 18:59 Lidocaine HCl (Xylocaine-Mpf 1% 2ml Vial) 2 ml PRN 1X PRN ID PRIOR TO IV START; Start 03/26/19 at 07:00; Stop 03/27/19 at 06:59 Hydromorphone HCl (Dilaudid) 0.5 mg PRN Q10MIN PRN IV SEV PAIN, Second choice; Start 03/26/19 at 07:00; Stop 03/27/19 at 06:59 Potassium Chloride 30 meq/ Sodium Chloride 1,015 ml @ 75 mls/hr 1X ONCE IV Last administered on 03/25/19at 13:21; Start 03/25/19 at 12:15; Stop 03/26/19 at 01:46; Status DC Active Scripts Active Reported Proair Hfa Inhaler (Albuterol Sulfate) 8.5 Gm Hfa.aer.ad 1 Puff INH PRN Q6HRS PRN Lantus Solostar (Insulin Glargine,Hum.rec.anlog) 100 Unit/1 Ml Insuln.pen 20 Unit SQ QHS Humalog (Insulin Lispro) 100 Unit/1 Ml Cartridge 6 Unit SQ TIDWMEALS Doxazosin Mesylate 2 Mg Tablet 2 Mg PO DAILY Omeprazole 40 Mg Capsule.dr 40 Mg PO DAILY Amlodipine Besylate 10 Mg Tablet 10 Mg PO DAILY Atorvastatin Calcium 20 Mg Tablet 20 Mg PO DAILY Atenolol 50 Mg Tablet 50 Mg PO DAILY Losartan Potassium 100 Mg Tablet 100 Mg PO DAILY Aspirin 81 Mg Tab.chew 81 Mg PO DAILY Glyburide 5 Mg Tablet 1 Tab PO BID Vitals/I & O Vital Sign - Last 24 Hours 03/25/19 03/25/19 03/25/19 03/25/19 10:00 11:00 11:01 11:02 Pulse 76 72 76 76 Resp B/P (MAP) 153/76 (101) 146/74 (98) 153/76 153/76 Pulse Ox 93 95 O2 Delivery Ventilator Ventilator 03/25/19 03/25/19 03/25/19 03/25/19 11:17 12:00 12:00 12:16 Pulse 74 Resp 22 B/P (MAP) 150/75 (100) Pulse Ox 93 94 O2 Delivery Mechanical Ventilator Ventilator O2 Flow Rate 40.0 40.0 03/25/19 03/25/19 03/25/19 03/25/19 12:25 13:00 14:00 15:00 Pulse 74 82 82 Resp B/P (MAP) 153/74 (100) 159/79 (105) 157/77 (103) Pulse Ox 92 95 95 95 O2 Delivery Ventilator Ventilator Ventilator Ventilator 03/25/19 03/25/19 03/25/19 03/25/19 15:50 16:00 16:00 17:00 Pulse 78 72 Resp B/P (MAP) 136/70 (92) 141/69 (93) Pulse Ox 95 98 92 O2 Delivery Ventilator Ventilator Mechanical Ventilator Ventilator 03/25/19 03/25/19 03/25/19 03/25/19 17:37 17:37 17:38 17:40 Pulse 76 75 Resp 22 B/P (MAP) 141/69 141/69 Pulse Ox 94 O2 Delivery Ventilator 03/25/19 03/25/19 03/25/19 03/25/19 18:00 19:00 19:20 20:00 Temp 98.8 98.8 Pulse 72 77 Resp B/P (MAP) 148/69 (95) 146/70 (95) Pulse Ox 95 95 95 O2 Delivery Ventilator Ventilator Ventilator Mechanical Ventilator 03/25/19 03/25/19 03/25/19 03/25/19 20:00 21:00 21:10 22:00 Pulse 76 84 82 Resp B/P (MAP) 147/68 (94) 163/73 (103) 155/72 (99) Pulse Ox 95 95 95 95 O2 Delivery Ventilator Ventilator Ventilator Ventilator 03/25/19 03/25/19 03/25/19 03/25/19 23:00 23:30 23:39 23:59 Pulse 86 Resp B/P (MAP) 164/76 (105) Pulse Ox 95 96 95 O2 Delivery Ventilator Ventilator Ventilator Mechanical Ventilator O2 Flow Rate 40.0 03/26/19 03/26/19 03/26/19 03/26/19 00:00 00:07 00:07 01:00 Temp 98.5 98.5 Pulse 84 88 88 66 Resp 22 B/P (MAP) 170/77 (108) 170/77 170/77 151/68 (95) Pulse Ox 95 96 O2 Delivery Ventilator Ventilator 03/26/19 03/26/19 03/26/19 03/26/19 01:35 02:00 02:55 03:00 Pulse 62 60 Resp B/P (MAP) 151/69 (96) 153/69 (97) Pulse Ox 96 96 96 96 O2 Delivery Ventilator Ventilator Ventilator Ventilator 03/26/19 03/26/19 03/26/19 03/26/19 04:00 04:00 04:52 05:00 Temp 98.2 98.2 Pulse 76 72 Resp B/P (MAP) 162/76 (104) 146/70 (95) Pulse Ox 92 94 93 O2 Delivery Ventilator Mechanical Ventilator Ventilator Ventilator 03/26/19 03/26/19 03/26/19 03/26/19 05:43 05:46 05:47 06:00 Pulse 69 70 67 Resp 14 B/P (MAP) 146/70 149/70 141/71 (94) Pulse Ox 93 93 O2 Delivery Ventilator Ventilator 03/26/19 03/26/19 03/26/19 03/26/19 06:13 07:00 07:02 08:25 Pulse 68 Resp 22 B/P (MAP) 149/71 (97) Pulse Ox 93 97 92 94 O2 Delivery Ventilator Ventilator Ventilator Ventilator Intake and Output 03/25/19 03/25/19 03/26/19 15:00 23:00 07:00 Intake Total 700 ml 4377 ml 5604 ml Output Total 1225 ml 1475 ml 1275 ml Balance -525 ml 2902 ml 4329 ml ADITYA HUSTON MD Mar 26, 2019 09:17
[2019-03-26] MEDS: FAMOTIDINE 20 MG/2 ML VIAL IVP SCH ×2 (09:18→20:52)
--- NOTE | 2019-03-26 10:58 | RAD ---
Examination: PORTABLE CHEST 1V History: respiratory failure Comparison/Correlation: 03/25/2019 portable chest x-ray exam Findings: Portable upright frontal view chest was obtained. Endotracheal tube terminates 4 cm from the armani. Enteric tubing noted. Heart size is within normal limits. Pulmonary vasculature is congested. Bilateral pleural effusions greater on the right noted. Bibasilar confluent consolidations and atelectasis noted. No pneumothorax. Right-sided PICC again seen. Impression: No significant change in pulmonary aeration. Electronically signed by: Daniel Gutierrez MD (03/26/2019 10:55 AM) [facility]
--- NOTE | 2019-03-26 11:19 | PDOC ---
Renal-Progress Notes Subjective Notes Notes NOTHING NEW History of Present Illness Hx of present illness STABLE Vitals Vitals Vital Signs Date Time Temp Pulse Resp B/P (MAP) Pulse Ox O2 Delivery O2 Flow Rate FiO2 03/26/19 10:00 68 22 136/69 (91) 96 Ventilator 03/26/19 08:00 97.9 97.9 03/25/19 23:39 40.0 Weight Weight [ ] Stability Assess. Stability Assess.: other (intubated ) I.O. Intake and Output Intake and Output 03/26/19 07:00 Intake Total 36384 ml Output Total 4125 ml Balance 6556 ml IV Total 6042 ml Tube Feeding 3889 ml Other 750 ml Output Urine Total 4125 ml # Bowel Movements 1 Labs Labs Laboratory Tests Test 03/25/19 12:01 03/25/19 13:05 03/25/19 14:06 03/25/19 15:04 Glucose (Fingerstick) 168 mg/dL (70-99) 163 mg/dL (70-99) 158 mg/dL (70-99) 166 mg/dL (70-99) Test 03/25/19 16:02 03/25/19 17:05 03/25/19 18:02 03/25/19 19:01 Glucose (Fingerstick) 152 mg/dL (70-99) 135 mg/dL (70-99) 137 mg/dL (70-99) 154 mg/dL (70-99) Test 03/25/19 19:58 03/25/19 20:48 03/25/19 22:58 03/25/19 23:57 Glucose (Fingerstick) 154 mg/dL (70-99) 160 mg/dL (70-99) 170 mg/dL (70-99) 172 mg/dL (70-99) Test 03/26/19 01:00 03/26/19 02:03 03/26/19 03:04 03/26/19 04:04 Glucose (Fingerstick) 144 mg/dL (70-99) 124 mg/dL (70-99) 124 mg/dL (70-99) 121 mg/dL (70-99) Test 03/26/19 05:07 03/26/19 05:30 03/26/19 06:10 03/26/19 06:50 Glucose (Fingerstick) 112 mg/dL (70-99) 126 mg/dL (70-99) Sodium Level 145 mmol/L (136-145) Potassium Level 4.1 mmol/L (3.5-5.1) Chloride Level 107 mmol/L (98-107) Carbon Dioxide Level 30 mmol/L (21-32) Anion Gap 8 (6-14) Blood Urea Nitrogen 93 mg/dL (8-26) Creatinine 1.1 mg/dL (0.7-1.3) Estimated GFR (Cockcroft-Gault) 69.2 Glucose Level 132 mg/dL (70-99) Calcium Level 7.6 mg/dL (8.5-10.1) Phosphorus Level 4.4 mg/dL (2.6-4.7) Magnesium Level 2.7 mg/dL (1.8-2.4) Prothrombin Time 14.0 SEC (11.7-14.0) Prothromb Time International Ratio 1.1 (0.8-1.1) Test 03/26/19 07:10 03/26/19 07:13 03/26/19 08:42 03/26/19 09:59 O2 Saturation 91 % (92-99) Arterial Blood pH 7.40 (7.35-7.45) Arterial Blood pCO2 at Patient Temp 51 mmHg (35-46) Arterial Blood pO2 at Patient Temp 62 mmHg (75-108) Arterial Blood HCO3 31 mmol/L (21-28) Arterial Blood Base Excess 5 mmol/L (-3-3) FiO2 40 Glucose (Fingerstick) 128 mg/dL (70-99) 136 mg/dL (70-99) 137 mg/dL (70-99) Test 03/26/19 11:03 Glucose (Fingerstick) 130 mg/dL (70-99) Micro Micro Microbiology 03/05/19 Blood Culture - Final, Complete NO GROWTH AFTER 5 DAYS 03/08/19 - Final, Complete 03/08/19 - Final, Complete 03/08/19 - Final, Complete 03/08/19 Gram Stain Evaluation - Final, Complete 03/08/19 Sputum Culture - Final, Complete 03/08/19 Sputum Result 1 - Final, Complete 03/02/19 Urine Culture - Final, Complete 03/02/19 Urine Culture Result 1 (LUCIO) - Final, Complete 03/09/19 Aerobic Culture - Final, Complete 03/09/19 Aerobic Culture Result 1 (LUCIO) - Final, Complete 03/09/19 Gram Stain - Final, Complete 03/09/19 Gram Stain Result 1 (LUCIO) - Final, Complete 03/09/19 Gram Stain Result 2 (LUCIO) - Final, Complete Review of Systems Constitutional: yes: unresponsive, other (INTUBATED AND SEDATED) Physical Exam General Appearance: other (SEDATED) Skin: warm Respiratory: decreased breath sounds Heart: S1S2 Abdomen: soft, N/T, bowel sounds present Genitourinary: bladder flat Extremities: pulses present Neurology: other (sedated) Assessment Assessment IMP LEONARD-IMPROVING HYPOKALEMIA-BETTER ANASARCA-PERSISTS BUT BETTER HYPERNATREMIA-NA BETTER EXTRACELLULAR VOLUME DEPLETION ACUTE HYPERCARBIC RESP FAILURE-FIO2 DOWN TO 40% NOW SCROTAL EDEMA DUE TO ANASARCA-BETTER RIGHT RENAL MASS PROB PNEUMONIA PROB SEPSIS PROB RIGHT SIDED CHF WITH DIASTOLIC DYSFUNCTION MORBID OBESITY MALNUTRITION PLAN ANTIBIOTICS VENT SUPPORT DAILY LASIX REPLACE K NEEDED EVAL RENAL MASS LATER CONT TF AND DECREASE FREE WATER DUE TO INCREASING RESIDUALS INCREASED FREE WATER WILL FOLLOW TRACH AND PEG PENDING D/W DEEPTHI BROWN MD Mar 26, 2019 11:19
--- NOTE | 2019-03-26 11:40 | PDOC ---
Objective: Objective: Reviewed w/ RN - asks if PEG could be done today w/ trach. Vital Signs: Vital Signs Date Time Temp Pulse Resp B/P (MAP) Pulse Ox O2 Delivery O2 Flow Rate FiO2 03/26/19 11:30 96 Ventilator 03/26/19 10:00 68 22 136/69 (91) 03/26/19 08:00 97.9 97.9 03/25/19 23:39 40.0 Labs: Laboratory Tests Test 03/25/19 12:01 03/25/19 13:05 03/25/19 14:06 03/25/19 15:04 Glucose (Fingerstick) 168 mg/dL 163 mg/dL 158 mg/dL 166 mg/dL Test 03/25/19 16:02 03/25/19 17:05 03/25/19 18:02 03/25/19 19:01 Glucose (Fingerstick) 152 mg/dL 135 mg/dL 137 mg/dL 154 mg/dL Test 03/25/19 19:58 03/25/19 20:48 03/25/19 22:58 03/25/19 23:57 Glucose (Fingerstick) 154 mg/dL 160 mg/dL 170 mg/dL 172 mg/dL Test 03/26/19 01:00 03/26/19 02:03 03/26/19 03:04 03/26/19 04:04 Glucose (Fingerstick) 144 mg/dL 124 mg/dL 124 mg/dL 121 mg/dL Test 03/26/19 05:07 03/26/19 05:30 03/26/19 06:10 03/26/19 06:50 Glucose (Fingerstick) 112 mg/dL 126 mg/dL Sodium Level 145 mmol/L Potassium Level 4.1 mmol/L Chloride Level 107 mmol/L Carbon Dioxide Level 30 mmol/L Anion Gap 8 Blood Urea Nitrogen 93 mg/dL Creatinine 1.1 mg/dL Estimated GFR (Cockcroft-Gault) 69.2 Glucose Level 132 mg/dL Calcium Level 7.6 mg/dL Phosphorus Level 4.4 mg/dL Magnesium Level 2.7 mg/dL Prothrombin Time 14.0 SEC Prothromb Time International Ratio 1.1 Test 03/26/19 07:10 03/26/19 07:13 03/26/19 08:42 03/26/19 09:59 O2 Saturation 91 % Arterial Blood pH 7.40 Arterial Blood pCO2 at Patient Temp 51 mmHg Arterial Blood pO2 at Patient Temp 62 mmHg Arterial Blood HCO3 31 mmol/L Arterial Blood Base Excess 5 mmol/L FiO2 40 Glucose (Fingerstick) 128 mg/dL 136 mg/dL 137 mg/dL Test 03/26/19 11:03 Glucose (Fingerstick) 130 mg/dL PE: GEN: intubated LUNGS: vent HEART: RRR ABD: round, soft, quiet BS NEURO/PSYCH: sedated A/P: Resp failure -- Plans for trach today and is set up for PEG placement tomorrow morning - see orders from yesterday. RJ MOFFETT Mar 26, 2019 11:40
[2019-03-26] MEDS ORDERED: ROCURONIUM 50 MG/5 ML VIAL. ONE ×2 (11:47→12:54)
[2019-03-26] MEDS ORDERED: fentaNYL PF VIAL 100 MCG/2 ML VIAL ONE (12:31)
--- NOTE | 2019-03-26 13:25 | PDOC ---
BRIEF OPERATIVE NOTE Date: Mar 26, 2019 Pre-Op Diagnosis Ventilator dependent respiratory failure Congestive heart failure Morbid obesity (BMI 50) PVD Post-Op Diagnosis Ventilator dependent respiratory failure Congestive heart failure Morbid obesity (BMI 50) PVD Procedure Performed Tracheostomy Surgeon Heather Zavala MD [facility] Anesthesiologist Dr Messer Anesthesia Type: General Blood Loss <5 mls IV Fluid N/A Urine Output N/A Specimens Obtained None Findings 8Fr, fenestrated, cuffed tracheostomy tube Complications None HEATHER ZAVALA MD Mar 26, 2019 13:25
--- NOTE | 2019-03-26 13:29 | PDOC4 ---
Operative Note Operative Note Date Mar 26, 2019 Preoperative diagnosis Ventilator dependent respiratory failure Congestive heart failure Morbid obesity (BMI 50) PVD Postoperative diagnosis Ventilator dependent respiratory failure Congestive heart failure Morbid obesity (BMI 50) PVD Procedure performed Tracheostomy Surgeon Heather Zavala MD [facility] Anesthesiologist Dr Messer Anesthesia type General Blood loss <5 mls IV fluids N/A Urine output N/A Specimens obtained None Findings 8Fr, fenestrated, cuffed tracheostomy tube Complications None Indication 58-year-old male who presented approximately 25 days ago with respiratory failure most likely secondary to CHF exacerbation. He was also found to be in renal failure upon admission, although his renal function has now recovered. He has history of diabetes and peripheral vascular disease s/p right BKA. He was intubated on admission, and remains on the ventilator ever since with high ventilator settings throughout his hospitalization. He is currently on an FiO2 40% and PEEP of 11 and appears to be oxygenating and ventilating adequately. He is normotensive and in sinus rhythm. At present there are no infectious concerns. Operation The patient's ID was confirmed using 2 unique identifies. The patient was transferred to the OR intubated from the ICU. He was placed supine on the operating table with both arms tucked. A shoulder roll was also placed to facilitate neck extension. Neck landmarks were identified. The patient's neck was prepped and draped in the usual sterile surgical fashion. The patient was been on therapeutic antibiotics. A timeout was then performed. A 5 cm transverse incision in the skin crease just below the level of the cricoid cartilage was made. The incision was deepened through the subcutaneous tissues followed by the platysma. The strap muscles were bluntly at the median raphe. The isthmus of the thyroid was identified and divided using electrocautery. The pretracheal fascia was incised. Hemostasis of the thyroid gland and surrounding tissues was confirmed. I clearly identified the cricoid cartilage, the hyoid, the first, second and third tracheal rings. I then asked anesthesia to deflate the endotracheal tube balloon. The first and second tracheal rings anteriorly were excised. The endotracheal tube was slowly withdrawn and a 8 fr cuffed, non fenestrated tracheostomy tube was inserted with ease. The inner cannula was placed and secured. The tracheostomy was connected to the ventilator with excellent tidal volume return. 2-0 nylon sutures were used to reapproximate the incision on the lateral aspects of the tracheostomy. The tracheostomy was secured with four 2-0 nylon's and a trach collar. At the end of the procedure, the instrument, sponge and needle counts were correct. The patient was transferred back to the ICU in stable condition, having tolerated the procedure well. HEATHER ZAVALA MD Mar 26, 2019 13:29
[2019-03-26] MEDS ORDERED: METOPROLOL TARTRATE 5 MG/5 ML VIAL. IVP SCH (18:00)
[2019-03-27] VITALS (24 sets, daily range): BP systolic 137–182; BP diastolic 68–86
[2019-03-27] MEDS: METOPROLOL TARTRATE 5 MG/5 ML VIAL. IVP SCH ×4 (00:05→18:27)
[2019-03-27] MEDS: INSULIN REGULAR VIAL 150 UNIT in 0.9 % SODIUM CHLORIDE 150ML 150 ML IV PRN ×2 (00:07→22:40)
[2019-03-27] MEDS: PROPOFOL 100 ML IV PRN ×3 (00:10→18:15)
[2019-03-27] MEDS: METOCLOPRAMIDE HCL 10 MG/2 ML VIAL. IV SCH ×3 (06:18→22:36)
[2019-03-27] MEDS: methylPREDNISolone SOD SUCC PF 125 MG/2 ML VIAL. IV SCH ×3 (06:18→22:36)
[2019-03-27] MEDS: FUROSEMIDE 100 MG/10 ML VIAL. IVP SCH (06:19)
[2019-03-27] MEDS: HEPARIN for SUB-Q USE 5,000 UNIT/ML VIAL. SQ SCH ×3 (06:20→22:37)
[2019-03-27 06:26] LABS: CALCIUM 8.1 mg/dL (8.5-10.1); CREATININE 0.9 mg/dL (0.7-1.3); GFR 87.3; MAGNESIUM 2.8 mg/dL (1.8-2.4); PHOSPHORUS 4.8 mg/dL (2.6-4.7); POTASSIUM 4.2 mmol/L (3.5-5.1)
[2019-03-27] MEDS: IV DEXTROSE 5% 1,000 ML IV SCH ×3 (06:26→19:08)
[2019-03-27] MEDS ORDERED: HYDROmorphone 2 MG/ML VIAL IV PRN (07:00)
[2019-03-27] MEDS ORDERED: MORPHINE SULFATE 2 MG/ML VIAL. IV PRN (07:00)
[2019-03-27] MEDS ORDERED: fentaNYL PF VIAL 100 MCG/2 ML VIAL IV PRN ×4 (07:00→07:15)
[2019-03-27] MEDS ORDERED: IV RINGERS,LACTATED 1000ML 1,000 ML IV SCH (07:00)
[2019-03-27] MEDS: IV RINGERS,LACTATED 1000ML 1,000 ML IV SCH ×2 (07:06→15:06)
[2019-03-27] MEDS ORDERED: LIDOCAINE 1% PF 2 ML VIAL. ID PRN (07:15)
[2019-03-27] MEDS ORDERED: MIDAZOLAM HCL/PF 2 MG/2 ML VIAL. IV PRN (07:15)
[2019-03-27] MEDS: IPRATRPIUM/ALBUTEROL 0.5/2.5MG 3 ML NEBU. NEB SCH ×4 (08:00→19:54)
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
[2019-03-27 08:49] LABS: BASE EXCESS ABG 9 mmol/L (-3-3); HCO3 ABG 33 mmol/L (21-28); PCO2 ABG 45 mmHg (35-46); PO2 ABG 61 mmHg (75-108); SAT O2 ABG 92 % (92-99)
[2019-03-27 08:51] LABS: FIO2 ABG 50
--- NOTE | 2019-03-27 09:21 | NUR ---
SS following up with discharge planning. SS phoned and faxed updated clinical to [facility], ; fax [phone]. Pt had Trach placed on 03/26/2019. Seven days post trach would be 04/02/2019. SS will continue to follow for discharge planning.
[2019-03-27] MEDS: FAMOTIDINE 20 MG/2 ML VIAL IVP SCH ×2 (09:26→22:36)
[2019-03-27] MEDS: NYSTATIN 100,000 UNIT/GM TOPICAL CREAM 15GM TUBE. TP SCH ×2 (09:26→22:38)
--- NOTE | 2019-03-27 09:40 | PDOC ---
PROGRESS NOTES Chief Complaint Chief Complaint ARDS In hospital cardiac arrest with short downtime Possible hypoxic/anoxia brain injury secondary to cardiac arrest Acute respiratory failure secondary to congestive heart failure,ARDS Hypernatremia secondary to severe dehydration . High residuals on tube feedings no evidence of obstructive pattern on x ray done 03/05/2019 Bilateral general scrotal swelling and tenderness. Dm2 obesity, extreme, morbid hx RLE BKA RLE stump with chronic wound. left foot nail onychomycosis Acute renal failure ATN chronic venous insuff left lower leg Bilateral lower lobe consolidation concerning for multifocal pneumonia Right renal hypodensity measuring 2.5 cm Anasarca. bilateral external iliac lymphadenopathy Trace tricuspid regurgitation. Estimated PAP 33-38 mmHg. Diastolic CHF History of Present Illness History of Present Illness status post trach 03/26/19 Plan for PEG today PEEP of 8 with FiO2 40% ABG pending We are unsure of his mental status - could not wean bec of high PEEP pressures and FiO2 during the week On 3 sedations, fentanyl, propofol, Versed Soft belly, no reports of high residuals today Lasix down to 80 once a day- Good UO otherwise, N Hypernat getting better 145 on dextrose ivf at 125cc and insulin gtt Plan: Continue dextrose IVF for the hypernatremia Inc Lantus to 30 twice a day from 10 twice a day in an effort to get off insulin drip Vent per pulmo- Tube feeds/nutrition consult for PEG once PEG is in Plan for LTAC when PEEP pressures are lower When PEEP pressures are lower then we will be able to do a sedation vacation and check mental status Discussed with COSTUMER Vitals Vitals Vital Signs Date Time Temp Pulse Resp B/P (MAP) Pulse Ox O2 Delivery O2 Flow Rate FiO2 03/27/19 08:01 93 Ventilator 03/27/19 06:51 21 03/27/19 06:19 66 166/86 03/27/19 04:00 97.0 97.0 03/27/19 01:00 40.0 Physical Exam Physical Exam GENERAL: Sedated and intubated. HEENT: Pupils equal, ETT. OGT LUNGS: Diminished HEART: S1, S2. regular ABDOMEN: Obese, distended, decreased bowel sounds, no grimace or guarding to palpation GENITOURINARY: [place] - less scrotal edema but still present EXTREMITIES: Generalized anasarca. RLE stump with chronic wound. No erythem a/fluctuance/warmth. no cyanosis SKIN: Warm to touch. PLANNING CONSULTANT: Unresponsive/sedated on vent RUE-PICC (03/09) clean General: Other (intubated sedated) Heart: Regular rate, Normal S1, Normal S2, No murmurs Lungs: Crackles, Other ( decraesed BLL) Abdomen: No tenderness Extremities: No clubbing, No cyanosis, Other (1+ EDEMA) Skin: No significant lesion Labs LABS Laboratory Tests Test 03/26/19 09:59 03/26/19 11:03 03/26/19 13:38 03/26/19 14:48 Glucose (Fingerstick) 137 mg/dL (70-99) 130 mg/dL (70-99) 193 mg/dL (70-99) 199 mg/dL (70-99) Test 03/26/19 15:55 03/26/19 17:09 03/26/19 18:12 03/26/19 19:15 Glucose (Fingerstick) 208 mg/dL (70-99) 179 mg/dL (70-99) 148 mg/dL (70-99) 123 mg/dL (70-99) Test 03/26/19 20:09 03/26/19 20:54 03/26/19 22:00 03/26/19 23:08 Glucose (Fingerstick) 116 mg/dL (70-99) 100 mg/dL (70-99) 99 mg/dL (70-99) 99 mg/dL (70-99) Test 03/27/19 00:03 03/27/19 01:11 03/27/19 01:59 03/27/19 03:19 Glucose (Fingerstick) 100 mg/dL (70-99) 101 mg/dL (70-99) 104 mg/dL (70-99) 113 mg/dL (70-99) Test 03/27/19 04:05 03/27/19 05:10 03/27/19 05:45 03/27/19 05:58 Glucose (Fingerstick) 108 mg/dL (70-99) 112 mg/dL (70-99) 111 mg/dL (70-99) Sodium Level 145 mmol/L (136-145) Potassium Level 4.2 mmol/L (3.5-5.1) Chloride Level 108 mmol/L (98-107) Carbon Dioxide Level 31 mmol/L (21-32) Anion Gap 6 (6-14) Blood Urea Nitrogen 79 mg/dL (8-26) Creatinine 0.9 mg/dL (0.7-1.3) Estimated GFR (Cockcroft-Gault) 87.3 Glucose Level 126 mg/dL (70-99) Calcium Level 8.1 mg/dL (8.5-10.1) Phosphorus Level 4.8 mg/dL (2.6-4.7) Magnesium Level 2.8 mg/dL (1.8-2.4) Test 03/27/19 07:20 03/27/19 08:00 03/27/19 08:38 Glucose (Fingerstick) 121 mg/dL (70-99) 129 mg/dL (70-99) O2 Saturation 92 % (92-99) Arterial Blood pH 7.48 (7.35-7.45) Arterial Blood pCO2 at Patient Temp 45 mmHg (35-46) Arterial Blood pO2 at Patient Temp 61 mmHg (75-108) Arterial Blood HCO3 33 mmol/L (21-28) Arterial Blood Base Excess 9 mmol/L (-3-3) FiO2 50 Review of Systems Review of Systems Intubated sedated Assessment and Plan Assessmemt and Plan Problems Medical Problems: (1) Acute renal failure Status: Acute (2) Edema Status: Acute (3) Shortness of breath Status: Acute Comment Review of Relevant I have reviewed the following items pascual (where applicable) has been applied. Labs Laboratory Tests Test 03/25/19 09:55 03/25/19 10:58 03/25/19 12:01 03/25/19 13:05 Glucose (Fingerstick) 149 mg/dL (70-99) 176 mg/dL (70-99) 168 mg/dL (70-99) 163 mg/dL (70-99) Test 03/25/19 14:06 03/25/19 15:04 03/25/19 16:02 03/25/19 17:05 Glucose (Fingerstick) 158 mg/dL (70-99) 166 mg/dL (70-99) 152 mg/dL (70-99) 135 mg/dL (70-99) Test 03/25/19 18:02 03/25/19 19:01 03/25/19 19:58 03/25/19 20:48 Glucose (Fingerstick) 137 mg/dL (70-99) 154 mg/dL (70-99) 154 mg/dL (70-99) 160 mg/dL (70-99) Test 03/25/19 22:58 03/25/19 23:57 03/26/19 01:00 03/26/19 02:03 Glucose (Fingerstick) 170 mg/dL (70-99) 172 mg/dL (70-99) 144 mg/dL (70-99) 124 mg/dL (70-99) Test 03/26/19 03:04 03/26/19 04:04 03/26/19 05:07 03/26/19 05:30 Glucose (Fingerstick) 124 mg/dL (70-99) 121 mg/dL (70-99) 112 mg/dL (70-99) Sodium Level 145 mmol/L (136-145) Potassium Level 4.1 mmol/L (3.5-5.1) Chloride Level 107 mmol/L (98-107) Carbon Dioxide Level 30 mmol/L (21-32) Anion Gap 8 (6-14) Blood Urea Nitrogen 93 mg/dL (8-26) Creatinine 1.1 mg/dL (0.7-1.3) Estimated GFR (Cockcroft-Gault) 69.2 Glucose Level 132 mg/dL (70-99) Calcium Level 7.6 mg/dL (8.5-10.1) Phosphorus Level 4.4 mg/dL (2.6-4.7) Magnesium Level 2.7 mg/dL (1.8-2.4) Test 03/26/19 06:10 03/26/19 06:50 03/26/19 07:10 03/26/19 07:13 Glucose (Fingerstick) 126 mg/dL (70-99) 128 mg/dL (70-99) Prothrombin Time 14.0 SEC (11.7-14.0) Prothromb Time International Ratio 1.1 (0.8-1.1) O2 Saturation 91 % (92-99) Arterial Blood pH 7.40 (7.35-7.45) Arterial Blood pCO2 at Patient Temp 51 mmHg (35-46) Arterial Blood pO2 at Patient Temp 62 mmHg (75-108) Arterial Blood HCO3 31 mmol/L (21-28) Arterial Blood Base Excess 5 mmol/L (-3-3) FiO2 40 Test 03/26/19 08:42 03/26/19 09:59 03/26/19 11:03 03/26/19 13:38 Glucose (Fingerstick) 136 mg/dL (70-99) 137 mg/dL (70-99) 130 mg/dL (70-99) 193 mg/dL (70-99) Test 03/26/19 14:48 03/26/19 15:55 03/26/19 17:09 03/26/19 18:12 Glucose (Fingerstick) 199 mg/dL (70-99) 208 mg/dL (70-99) 179 mg/dL (70-99) 148 mg/dL (70-99) Test 03/26/19 19:15 03/26/19 20:09 03/26/19 20:54 03/26/19 22:00 Glucose (Fingerstick) 123 mg/dL (70-99) 116 mg/dL (70-99) 100 mg/dL (70-99) 99 mg/dL (70-99) Test 03/26/19 23:08 03/27/19 00:03 03/27/19 01:11 03/27/19 01:59 Glucose (Fingerstick) 99 mg/dL (70-99) 100 mg/dL (70-99) 101 mg/dL (70-99) 104 mg/dL (70-99) Test 03/27/19 03:19 03/27/19 04:05 03/27/19 05:10 03/27/19 05:45 Glucose (Fingerstick) 113 mg/dL (70-99) 108 mg/dL (70-99) 112 mg/dL (70-99) Sodium Level 145 mmol/L (136-145) Potassium Level 4.2 mmol/L (3.5-5.1) Chloride Level 108 mmol/L (98-107) Carbon Dioxide Level 31 mmol/L (21-32) Anion Gap 6 (6-14) Blood Urea Nitrogen 79 mg/dL (8-26) Creatinine 0.9 mg/dL (0.7-1.3) Estimated GFR (Cockcroft-Gault) 87.3 Glucose Level 126 mg/dL (70-99) Calcium Level 8.1 mg/dL (8.5-10.1) Phosphorus Level 4.8 mg/dL (2.6-4.7) Magnesium Level 2.8 mg/dL (1.8-2.4) Test 03/27/19 05:58 03/27/19 07:20 03/27/19 08:00 03/27/19 08:38 Glucose (Fingerstick) 111 mg/dL (70-99) 121 mg/dL (70-99) 129 mg/dL (70-99) O2 Saturation 92 % (92-99) Arterial Blood pH 7.48 (7.35-7.45) Arterial Blood pCO2 at Patient Temp 45 mmHg (35-46) Arterial Blood pO2 at Patient Temp 61 mmHg (75-108) Arterial Blood HCO3 33 mmol/L (21-28) Arterial Blood Base Excess 9 mmol/L (-3-3) FiO2 50 Laboratory Tests Test 03/26/19 09:59 03/26/19 11:03 03/26/19 13:38 03/26/19 14:48 Glucose (Fingerstick) 137 mg/dL (70-99) 130 mg/dL (70-99) 193 mg/dL (70-99) 199 mg/dL (70-99) Test 03/26/19 15:55 03/26/19 17:09 03/26/19 18:12 03/26/19 19:15 Glucose (Fingerstick) 208 mg/dL (70-99) 179 mg/dL (70-99) 148 mg/dL (70-99) 123 mg/dL (70-99) Test 03/26/19 20:09 03/26/19 20:54 03/26/19 22:00 03/26/19 23:08 Glucose (Fingerstick) 116 mg/dL (70-99) 100 mg/dL (70-99) 99 mg/dL (70-99) 99 mg/dL (70-99) Test 03/27/19 00:03 03/27/19 01:11 03/27/19 01:59 03/27/19 03:19 Glucose (Fingerstick) 100 mg/dL (70-99) 101 mg/dL (70-99) 104 mg/dL (70-99) 113 mg/dL (70-99) Test 03/27/19 04:05 03/27/19 05:10 03/27/19 05:45 03/27/19 05:58 Glucose (Fingerstick) 108 mg/dL (70-99) 112 mg/dL (70-99) 111 mg/dL (70-99) Sodium Level 145 mmol/L (136-145) Potassium Level 4.2 mmol/L (3.5-5.1) Chloride Level 108 mmol/L (98-107) Carbon Dioxide Level 31 mmol/L (21-32) Anion Gap 6 (6-14) Blood Urea Nitrogen 79 mg/dL (8-26) Creatinine 0.9 mg/dL (0.7-1.3) Estimated GFR (Cockcroft-Gault) 87.3 Glucose Level 126 mg/dL (70-99) Calcium Level 8.1 mg/dL (8.5-10.1) Phosphorus Level 4.8 mg/dL (2.6-4.7) Magnesium Level 2.8 mg/dL (1.8-2.4) Test 03/27/19 07:20 03/27/19 08:00 03/27/19 08:38 Glucose (Fingerstick) 121 mg/dL (70-99) 129 mg/dL (70-99) O2 Saturation 92 % (92-99) Arterial Blood pH 7.48 (7.35-7.45) Arterial Blood pCO2 at Patient Temp 45 mmHg (35-46) Arterial Blood pO2 at Patient Temp 61 mmHg (75-108) Arterial Blood HCO3 33 mmol/L (21-28) Arterial Blood Base Excess 9 mmol/L (-3-3) FiO2 50 Microbiology 03/05/19 Blood Culture - Final, Complete NO GROWTH AFTER 5 DAYS 03/08/19 - Final, Complete 03/08/19 - Final, Complete 03/08/19 - Final, Complete 03/08/19 Gram Stain Evaluation - Final, Complete 03/08/19 Sputum Culture - Final, Complete 03/08/19 Sputum Result 1 - Final, Complete 03/02/19 Urine Culture - Final, Complete 03/02/19 Urine Culture Result 1 (LUCIO) - Final, Complete 03/09/19 Aerobic Culture - Final, Complete 03/09/19 Aerobic Culture Result 1 (LUCIO) - Final, Complete 03/09/19 Gram Stain - Final, Complete 03/09/19 Gram Stain Result 1 (LUCIO) - Final, Complete 03/09/19 Gram Stain Result 2 (LUCIO) - Final, Complete Medications Current Medications Ondansetron HCl (Zofran) 4 mg PRN Q8HRS PRN IV NAUSEA/VOMITING; Start 02/27/19 at 16:45; Stop 02/28/19 at 16:44; Status DC Morphine Sulfate (Morphine Sulfate) 2 mg PRN Q2HR PRN IV PAIN; Start 02/27/19 at 16:45; Stop 02/28/19 at 16:44; Status DC Acetaminophen (Tylenol) 650 mg PRN Q4HRS PRN PO FEVER Last administered on 02/27/19at 21:06; Start 02/27/19 at 16:45; Stop 02/28/19 at 16:44; Status DC Dextrose (Dextrose 50%-Water Syringe) 12.5 gm PRN Q15MIN PRN IV SEE COMMENTS; Start 02/27/19 at 16:45; Stop 03/10/19 at 13:48; Status DC Heparin Sodium (Porcine) (Heparin Sodium) 5,000 unit Q8HRS SQ Last administered on 03/27/19at 06:20; Start 02/27/19 at 17:00 Lorazepam (Ativan) 1 mg PRN Q8HRS PRN IV ANXIETY / AGITATION Last administered on 03/08/19at 03:37; Start 02/28/19 at 02:45 Etomidate (Amidate) 20 mg STK-MED ONCE IV ; Start 02/28/19 at 06:59; Stop 02/28/19 at 07:00; Status DC Rocuronium [place] (Zemuron) 50 mg STK-MED ONCE .ROUTE ; Start 02/28/19 at 07:00; Stop 02/28/19 at 09:42; Status DC Dopamine HCl/ Dextrose 250 ml @ 12.266 mls/ hr CONT PRN IV SEE I/O RECORD Last administered on 02/28/19at 08:06; Start 02/28/19 at 07:15; Stop 03/17/19 at 15:50; Status DC Fentanyl Citrate 30 ml @ 0 mls/hr CONT PRN IV SEE PROTOCOL; Start 02/28/19 at 07:15; Stop 02/28/19 at 07:59; Status DC Propofol 100 ml @ 0 mls/hr CONT PRN IV SEE PROTOCOL; Start 02/28/19 at 07:15; Stop 02/28/19 at 07:59; Status DC Fentanyl Citrate (Fentanyl 2ml Vial) 25 mcg PRN Q1HR PRN IV SEE COMMENTS; Start 02/28/19 at 07:15; Stop 02/28/19 at 07:59; Status DC Fentanyl Citrate (Fentanyl 2ml Vial) 50 mcg PRN Q1HR PRN IV SEE COMMENTS; Start 02/28/19 at 07:15; Stop 02/28/19 at 07:59; Status DC Midazolam HCl 100 ml @ 0 mls/hr CONT PRN IV SEE PROTOCOL Last administered on 03/26/19at 20:06; Start 02/28/19 at 07:15 Sodium Chloride 1,000 ml @ 1,000 mls/hr Q1H IV Last administered on 02/28/19at 07:32; Start 02/28/19 at 07:32; Stop 02/28/19 at 10:09; Status DC Fentanyl Citrate (Fentanyl 2ml Vial) 25 mcg PRN Q30MIN PRN IV see comments; Start 02/28/19 at 07:45; Stop 02/28/19 at 09:42; Status DC Lorazepam (Ativan) 1 mg PRN Q30MIN PRN IV SEDATION; Start 02/28/19 at 07:45; Stop 02/28/19 at 09:42; Status DC Fentanyl Citrate 30 ml @ 2.5 mls/hr CONT PRN PRN IV SEE I/O RECORD Last administered on 03/05/19at 03:44; Start 02/28/19 at 07:45; Stop 03/05/19 at 04:40; Status DC Propofol 100 ml @ 0 mls/hr CONT PRN IV SEE I/O RECORD Last administered on 03/27/19at 06:25; Start 02/28/19 at 07:45 Vecuronium [place] (Norcuron Bolus) 10 mg PRN Q30MIN PRN IV SHIVERING; Start 02/28/19 at 07:45; Stop 02/28/19 at 09:42; Status DC Meperidine HCl (Demerol) 12.5 mg PRN Q30MIN PRN IV SHIVERING; Start 02/28/19 at 07:45; Stop 02/28/19 at 09:42; Status DC Multi-Ingred Cream/Lotion/Oil/ Oint (Artificial Tears Eye Ointment) 1 jennifer PRN Q6HRS PRN OU 0.5 INCH FOR DRY EYE; Start 02/28/19 at 07:45; Stop 02/28/19 at 09:42; Status DC Famotidine (Pepcid Vial) 20 mg BID IVP Last administered on 02/28/19at 11:03; Start 02/28/19 at 09:00; Stop 02/28/19 at 14:25; Status DC Aspirin (Aspirin) 300 mg DAILY AK ; Start 02/28/19 at 09:00; Stop 02/28/19 at 09:42; Status DC Sodium Chloride (Normal Saline Flush) 3 ml QSHIFT PRN IV AFTER MEDS AND BLOOD DRAWS; Start 02/28/19 at 07:45 Acetaminophen (Tylenol) 650 mg Q6HRS NG ; Start 02/28/19 at 12:00; Stop 02/28/19 at 12:00; Status DC Acetaminophen (Tylenol Supp) 650 mg PRN Q6HRS PRN [place] MILD PAIN / TEMP; Start 03/01/19 at 07:45; Stop 03/01/19 at 07:45; Status DC Acetaminophen (Tylenol) 650 mg PRN Q6HRS PRN NG MILD PAIN / TEMP; Start 03/01/19 at 07:45; Stop 03/01/19 at 07:45; Status DC Info (Icu Electrolyte Protocol) 1 ea DAILY PRN MC PER PROTOCOL; Start 03/02/19 at 07:45; Stop 03/02/19 at 07:45; Status DC Furosemide (Lasix) 60 mg 1X ONCE IVP Last administered on 02/28/19at 08:30; Start 02/28/19 at 08:30; Stop 02/28/19 at 08:31; Status DC Ceftriaxone Sodium (Rocephin) 1 gm Q24H IVP Last administered on 02/28/19at 11:03; Start 02/28/19 at 11:00; Stop 02/28/19 at 11:18; Status DC Calcium Chloride 1000 mg/Dextrose 60 ml @ 120 mls/hr 1X ONCE IV Last administered on 02/28/19at 11:03; Start 02/28/19 at 10:30; Stop 02/28/19 at 10:59; Status DC Meropenem 500 mg/ Sodium Chloride 50 ml @ 100 mls/hr Q8HRS IV Last administered on 03/03/19at 06:24; Start 02/28/19 at 14:00; Stop 03/03/19 at 07:04; Status DC Linezolid/Dextrose 300 ml @ 300 mls/hr Q12HR IV Last administered on 03/03/19at 20:00; Start 02/28/19 at 11:30; Stop 03/04/19 at 08:55; Status DC Micafungin Sodium 100 mg/Dextrose 100 ml @ 100 mls/hr Q24H IV Last administered on 03/04/19at 15:53; Start 02/28/19 at 12:00; Stop 03/05/19 at 06:47; Status DC Furosemide (Lasix) 40 mg [id number] IVP Last administered on 03/02/19at 14:06; Start 02/28/19 at 14:00; Stop 03/02/19 at 17:02; Status DC Famotidine (Pepcid Vial) 20 mg QHS IVP Last administered on 03/01/19at 21:24; Start 02/28/19 at 21:00; Stop 03/02/19 at 10:07; Status DC Albuterol/ Ipratropium (Duoneb) 3 ml RTQID NEB Last administered on 03/27/19at 08:00; Start 02/28/19 at 16:00 Haloperidol Lactate (Haldol Inj) 5 mg PRN Q6HRS PRN IVP AGITATION 2ND CHOICE Last administered on 03/09/19at 14:07; Start 02/28/19 at 15:15 Vecuronium [place] (Norcuron Bolus) 8 mg PRN Q4HRS PRN IV MUSCLE SPASMS Last administered on 03/12/19at 23:48; Start 02/28/19 at 15:15 Perflutren Protein Type A Microsphe (Optison) 0.66 mg PRN 1X PRN IV SEE COMMENTS; Start 03/01/19 at 10:00; Stop 03/02/19 at 09:59; Status DC Digoxin (Lanoxin) 125 mcg 1X STAT IV ; Start 03/01/19 at 15:34; Stop 03/01/19 at 16:00; Status DC Sodium Chloride 500 ml @ 500 mls/hr 1X ONCE IV Last administered on 03/01/19at 18:46; Start 03/01/19 at 18:45; Stop 03/01/19 at 19:44; Status DC Famotidine (Pepcid Vial) 20 mg Q12HR IVP Last administered on 03/27/19at 09:26; Start 03/02/19 at 21:00 Furosemide (Lasix) 40 mg DAILY IVP Last administered on 03/04/19at 09:52; Start 03/03/19 at 09:00; Stop 03/04/19 at 12:13; Status DC Acetaminophen (Tylenol Supp) 650 mg PRN Q6HRS PRN [place] MILD PAIN / TEMP Last administered on 03/03/19 17:39; Start 03/02/19 at 17:15 Meropenem 500 mg/ Sodium Chloride 50 ml @ 100 mls/hr Q6HRS IV Last administered on 03/05/19 05:33; Start 03/03/19 at 12:00; Stop 03/05/19 at 06:47; Status DC Albumin Human 100 ml @ 100 mls/hr 1X ONCE IV Last administered on 03/03/19 08:52; Start 03/03/19 at 08:30; Stop 03/03/19 at 09:29; Status DC Atropine Sulfate (ATROPINE 0.5mg SYRINGE) 2 mg STK-MED ONCE .ROUTE ; Start 02/27/19 at 16:21; Stop 03/03/19 at 16:22; Status DC Dopamine HCl/ Dextrose (DOPamine 400MG/ 250ML PREMIX) 400 mg STK-MED ONCE IV ; Start 02/27/19 at 16:21; Stop 03/03/19 at 16:22; Status DC Furosemide (Lasix) 40 mg 1X ONCE IVP Last administered on 03/03/19 18:46; Start 03/03/19 at 18:45; Stop 03/03/19 at 18:46; Status DC Lorazepam 100 mg/ Sodium Chloride 100 ml @ 0 mls/hr CONT PRN IV SEE PROTOCOL Last administered on 03/03/19at 22:18; Start 03/03/19 at 22:00; Stop 03/17/19 at 15:39; Status DC Acetaminophen (Tylenol) 650 mg PRN Q6HRS PRN PEG MILD PAIN / TEMP Last administered on 03/10/19 20:48; Start 03/04/19 at 11:45 Furosemide (Lasix) 40 mg [id number] IVP Last administered on 03/06/19 08:38; Start 03/04/19 at 14:00; Stop 03/06/19 at 13:30; Status DC Fentanyl Citrate 30 ml @ 0 mls/hr CONT PRN IV SEE PROTOCOL Last administered on 03/27/19 06:21; Start 03/05/19 at 04:45 Cefepime HCl (Maxipime) 2 gm Q8HRS IVP Last administered on 03/10/19 05:43; Start 03/05/19 at 06:45; Stop 03/10/19 at 08:29; Status DC Metronidazole 100 ml @ 100 mls/hr Q8HRS IV Last administered on 03/10/19 05:45; Start 03/05/19 at 06:45; Stop 03/10/19 at 08:29; Status DC Linezolid/Dextrose 300 ml @ 300 mls/hr Q12HR IV Last administered on 03/05/19 21:24; Start 03/05/19 at 09:00; Stop 03/06/19 at 06:42; Status DC Metoclopramide HCl (Reglan Vial) 10 mg QIDACHS IV Last administered on 03/06/19 20:43; Start 03/05/19 at 11:30; Stop 03/07/19 at 07:37; Status DC Insulin Glargine (Lantus) 12 units BID SQ Last administered on 03/09/19 09:29; Start 03/05/19 at 09:00; Stop 03/09/19 at 17:11; Status DC Digoxin (Lanoxin) 500 mcg 1X ONCE IV Last administered on 03/06/19 00:48; Start 03/06/19 at 00:45; Stop 03/06/19 at 00:46; Status DC Metoprolol Tartrate (Lopressor Vial) 5 mg 1X ONCE IVP Last administered on 03/06/19 00:53; Start 03/06/19 at 00:45; Stop 03/06/19 at 00:46; Status DC Sodium Chloride 500 ml @ 500 mls/hr 1X ONCE IV Last administered on 03/06/19 00:49; Start 03/06/19 at 00:45; Stop 03/06/19 at 01:44; Status DC Nystatin (Mycostatin) 1 jennifer BID TP Last administered on 03/27/19 09:26; Start 03/06/19 at 09:00 Sodium Cl/Sod Bicarb/Potass Cl/ PEG (Golytely) 2,000 ml 1X ONCE PO Last administered on 03/06/19 09:33; Start 03/06/19 at 08:00; Stop 03/06/19 at 08:01; Status DC Furosemide (Lasix) 40 mg DAILY08 IVP Last administered on 03/09/19 09:27; Start 03/07/19 at 08:00; Stop 03/09/19 at 12:45; Status DC Metoprolol Tartrate (Lopressor Vial) 10 mg 1X ONCE IVP Last administered on 03/06/19 16:08; Start 03/06/19 at 15:15; Stop 03/06/19 at 15:16; Status DC Metoprolol Tartrate (Lopressor Vial) 5 mg Q6HRS IVP Last administered on 03/07/19 17:03; Start 03/06/19 at 18:00; Stop 03/07/19 at 18:27; Status DC Aspirin (Children'S Aspirin) 81 mg 1X ONCE PO Last administered on 03/06/19 18:18; Start 03/06/19 at 17:00; Stop 03/06/19 at 17:01; Status DC Aspirin (Children'S Aspirin) 81 mg DAILYWBKFT PO Last administered on 03/26/19 09:15; Start 03/07/19 at 08:00 Labetalol HCl (Normodyne Iv Push) 20 mg PRN Q2HR PRN IVP HYPERTENSION, SEE COMMENTS Last administered on 03/06/19 21:29; Start 03/06/19 at 17:15 Digoxin (Lanoxin) 250 mcg 1X ONCE IV Last administered on 03/06/19 22:00; Sta rt 03/06/19 at 22:00; Stop 03/06/19 at 22:01; Status DC Diltiazem HCl 125 mg/Dextrose 125 ml @ 5 mls/hr CONT PRN IV SEE I/O RECORD Last administered on 03/12/19at 08:20; Start 03/06/19 at 23:00; Stop 03/12/19 at 11:03; Status DC Metoclopramide HCl (Reglan Vial) 10 mg Q6HRS IV ; Start 03/07/19 at 08:00; Stop 03/08/19 at 07:51; Status DC Metoprolol Tartrate (Lopressor Vial) 5 mg Q6HRS IVP Last administered on 03/27/19at 06:19; Start 03/08/19 at 12:00 Furosemide (Lasix) 40 mg 1X ONCE IVP Last administered on 03/08/19at 21:21; Start 03/08/19 at 21:00; Stop 03/08/19 at 21:01; Status DC Furosemide (Lasix) 20 mg DAILY08 IVP ; Start 03/10/19 at 08:00; Stop 03/10/19 at 08:00; Status DC Furosemide (Lasix) 20 mg DAILY08 IVP Last administered on 03/14/19at 07:41; Start 03/10/19 at 08:00; Stop 03/15/19 at 07:32; Status DC Insulin Glargine (Lantus) 16 units BID SQ Last administered on 03/12/19at 00:09; Start 03/09/19 at 21:00; Stop 03/12/19 at 07:18; Status DC Insulin Human Lispro (HumaLOG) 0-9 UNITS Q6HRS SQ Last administered on 03/12/19at 05:45; Start 03/09/19 at 18:00; Stop 03/12/19 at 07:18; Status DC Dextrose (Dextrose 50%-Water Syringe) 12.5 gm PRN Q15MIN PRN IV SEE COMMENTS; Start 03/09/19 at 17:15; Stop 03/21/19 at 10:07; Status DC Cefepime HCl (Maxipime) 2 gm Q12HR IVP Last administered on 03/21/19at 08:26; Start 03/10/19 at 21:00; Stop 03/21/19 at 12:48; Status DC Insulin Human Lispro (HumaLOG) 15 units 1X ONCE SQ Last administered on 03/11/19at 00:14; Start 03/11/19 at 00:00; Stop 03/11/19 at 00:01; Status DC Insulin Glargine (Lantus) 20 units BID SQ Last administered on 03/17/19at 08:32; Start 03/12/19 at 09:00; Stop 03/17/19 at 10:46; Status DC Insulin Human Lispro (HumaLOG) 0-9 UNITS Q6HRS SQ Last administered on 03/21/19at 06:35; Start 03/12/19 at 12:00; Stop 03/21/19 at 10:00; Status DC Diltiazem HCl (Cardizem) 30 mg Q6HRS PO Last administered on 03/26/19at 05:46; Start 03/12/19 at 12:00; Stop 03/26/19 at 13:47; Status DC Furosemide (Lasix) 20 mg 1X ONCE IVP Last administered on 03/13/19at 11:04; Start 03/13/19 at 10:30; Stop 03/13/19 at 10:31; Status DC Furosemide (Lasix) 20 mg 1X ONCE IVP Last administered on 03/14/19at 07:40; Start 03/14/19 at 07:15; Stop 03/14/19 at 14:05; Status DC Furosemide (Lasix) 40 mg Q8HRS IVP Last administered on 03/17/19at 05:49; Start 03/14/19 at 22:00; Stop 03/17/19 at 10:58; Status DC Albuterol Sulfate (Ventolin Neb Soln) 2.5 mg 1X ONCE NEB Last administered on 03/16/19at 04:00; Start 03/16/19 at 04:00; Stop 03/16/19 at 04:01; Status DC Methylprednisolone Sodium Succinate (SOLU-Medrol 40MG VIAL) 80 mg 1X ONCE IV Last administered on 03/16/19at 04:17; Start 03/16/19 at 04:30; Stop 03/16/19 at 04:31; Status DC Furosemide (Lasix) 20 mg 1X ONCE IVP Last administered on 03/16/19at 04:17; Start 03/16/19 at 04:30; Stop 03/16/19 at 04:31; Status DC Insulin Glargine (Lantus) 25 units BID SQ Last administered on 03/21/19at 08:55; Start 03/17/19 at 21:00; Stop 03/21/19 at 10:00; Status DC Insulin Human Lispro (HumaLOG) 10 units Q6HRS SQ ; Start 03/17/19 at 12:00; Stop 03/17/19 at 13:32; Status DC Furosemide (Lasix) 40 mg QD IVP Last administered on 03/18/19at 05:55; Start 03/18/19 at 06:00; Stop 03/18/19 at 10:54; Status DC Insulin Human Lispro (HumaLOG) 3 units Q6HRS SQ Last administered on 03/19/19at 06:12; Start 03/17/19 at 18:00; Stop 03/19/19 at 08:28; Status DC Azithromycin 250 mg/Sodium Chloride 250 ml @ 250 mls/hr Q24H IV Last administered on 03/23/19at 08:13; Start 03/18/19 at 08:00; Stop 03/23/19 at 16:23; Status DC Alteplase, Recombinant (Cathflo For Central Catheter Clearance) 1 mg 1X ONCE INT CAT Last administered on 03/18/19at 09:21; Start 03/18/19 at 07:30; Stop 03/18/19 at 07:31; Status DC Alteplase, Recombinant (Cathflo For Central Catheter Clearance) 1 mg 1X ONCE INT CAT Last administered on 03/18/19at 11:04; Start 03/18/19 at 07:30; Stop 03/18/19 at 07:31; Status DC Alteplase, Recombinant (Cathflo For Central Catheter Clearance) 1 mg 1X ONCE INT CAT Last administered on 03/18/19at 13:26; Start 03/18/19 at 07:30; Stop 03/18/19 at 07:31; Status DC Furosemide (Lasix) 60 mg 1X ONCE IVP Last administered on 03/18/19at 11:04; Start 03/18/19 at 10:54; Stop 03/18/19 at 10:55; Status DC Furosemide (Lasix) 40 mg Q8HRS IVP ; Start 03/18/19 at 14:00; Stop 03/18/19 at 17:53; Status DC Digoxin (Lanoxin) 250 mcg 1X ONCE IV Last administered on 03/18/19at 15:48; Start 03/18/19 at 15:30; Stop 03/18/19 at 15:33; Status DC Furosemide (Lasix) 40 mg Q8HRS IVP Last administered on 03/20/19at 05:42; Start 03/18/19 at 20:00; Stop 03/20/19 at 08:48; Status DC Digoxin (Lanoxin) 500 mcg 1X ONCE IV Last administered on 03/18/19at 19:35; Start 03/18/19 at 20:00; Stop 03/18/19 at 20:01; Status DC Insulin Human Lispro (HumaLOG) 6 units Q6HRS SQ Last administered on 03/20/19at 05:45; Start 03/19/19 at 12:00; Stop 03/20/19 at 08:48; Status DC Furosemide (Lasix) 80 mg Q8HRS IVP Last administered on 03/22/19at 12:43; Start 03/20/19 at 14:00; Stop 03/22/19 at 17:00; Status DC Insulin Human Lispro (HumaLOG) 9 units Q6HRS SQ Last administered on 03/21/19at 06:36; Start 03/20/19 at 12:00; Stop 03/21/19 at 10:00; Status DC Methylprednisolone Sodium Succinate (SOLU-Medrol 125MG VIAL) 80 mg Q8HRS IV Last administered on 03/27/19at 06:18; Start 03/20/19 at 11:00 Alteplase, Recombinant (Cathflo For Central Catheter Clearance) 1 mg 1X ONCE INT CAT Last administered on 03/20/19at 20:23; Start 03/20/19 at 20:00; Stop 03/20/19 at 20:09; Status DC Alteplase, Recombinant (Cathflo For Central Catheter Clearance) 1 mg 1X ONCE INT CAT Last administered on 03/20/19at 20:23; Start 03/20/19 at 20:00; Stop 03/20/19 at 20:09; Status DC Alteplase, Recombinant (Cathflo For Central Catheter Clearance) 1 mg 1X ONCE INT CAT Last administered on 03/20/19at 20:23; Start 03/20/19 at 20:00; Stop 03/20/19 at 20:09; Status DC Insulin Human Regular 150 unit/ Sodium Chloride 151.5 ml @ 0 mls/hr CONT PRN IV SEE I/O RECORD Last administered on 03/27/19 00:07; Start 03/21/19 at 10:00 Dextrose (Dextrose 50%-Water Syringe) 12.5 gm PRN Q15MIN PRN IV LOW BLOOD SUGAR; Start 03/21/19 at 10:00 Furosemide (Lasix) 80 mg DAILY06 IVP Last administered on 03/27/19 06:19; Start 03/23/19 at 06:00 Potassium Chloride (KCl Oral Soln) 40 meq 1X ONCE PEG Last administered on 03/22/19 17:14; Start 03/22/19 at 17:30; Stop 03/22/19 at 17:31; Status DC Metoclopramide HCl (Reglan Vial) 10 mg PRN Q6HRS PRN IV NAUSEA/VOMITING Last administered on 03/24/19 11:02; Start 03/23/19 at 10:30; Stop 03/24/19 at 11:04; Status DC Dextrose 1,000 ml @ 125 mls/hr Q8H IV Last administered on 03/27/19 06:26; Start 03/23/19 at 11:15 Potassium Chloride (KCl Oral Soln) 40 meq 1X ONCE PEG Last administered on 03/24/19at 10:32; Start 03/24/19 at 08:30; Stop 03/24/19 at 08:31; Status DC Metoclopramide HCl (Reglan Vial) 10 mg Q8HRS IV Last administered on 03/27/19 06:18; Start 03/24/19 at 14:00 Insulin Glargine (Lantus) 10 units BID SQ Last administered on 03/26/19at 20:56; Start 03/24/19 at 21:00 Potassium Chloride (KCl Oral Soln) 40 meq 1X ONCE PEG Last administered on 03/25/19 08:50; Start 03/25/19 at 08:15; Stop 03/25/19 at 08:16; Status DC Potassium Chloride (KCl Oral Soln) 40 meq BID PEG Last administered on 03/26/19 09:15; Start 03/25/19 at 10:00; Stop 03/26/19 at 13:47; Status DC Fentanyl Citrate (Fentanyl 2ml Vial) 25 mcg PRN Q5MIN PRN IV MILD PAIN; Start 03/26/19 at 07:00; Stop 03/27/19 at 06:59; Status DC Fentanyl Citrate (Fentanyl 2ml Vial) 50 mcg PRN Q5MIN PRN IV MODERATE TO SEVERE PAIN; Start 03/26/19 at 07:00; Stop 03/27/19 at 06:59; Status DC Morphine Sulfate (Morphine Sulfate) 1 mg PRN Q10MIN PRN IV SEVERE PAIN; Start 03/26/19 at 07:00; Stop 03/27/19 at 06:59; Status DC Ringer's Solution 1,000 ml @ 30 mls/hr Q24H IV ; Start 03/26/19 at 07:00; Stop 03/26/19 at 18:59; Status DC Lidocaine HCl (Xylocaine-Mpf 1% 2ml Vial) 2 ml PRN 1X PRN ID PRIOR TO IV START; Start 03/26/19 at 07:00; Stop 03/27/19 at 06:59; Status DC Hydromorphone HCl (Dilaudid) 0.5 mg PRN Q10MIN PRN IV SEV PAIN, Second choice; Start 03/26/19 at 07:00; Stop 03/27/19 at 06:59; Status DC Potassium Chloride 30 meq/ Sodium Chloride 1,015 ml @ 75 mls/hr 1X ONCE IV Last administered on 03/25/19at 13:21; Start 03/25/19 at 12:15; Stop 03/26/19 at 01:46; Status DC Rocuronium [place] (Zemuron) 50 mg STK-MED ONCE .ROUTE ; Start 03/26/19 at 11:47; Stop 03/26/19 at 11:48; Status DC Fentanyl Citrate (Fentanyl 2ml Vial) 100 mcg STK-MED ONCE .ROUTE ; Start 03/26/19 at 12:31; Stop 03/26/19 at 12:32; Status DC Cefazolin Sodium/ Dextrose 50 ml @ As Directed STK-MED ONCE IV ; Start 03/26/19 at 11:38; Stop 03/26/19 at 12:38; Status DC Rocuronium [place] (Zemuron) 50 mg STK-MED ONCE .ROUTE ; Start 03/26/19 at 12:54; Stop 03/26/19 at 12:55; Status DC Metoprolol Tartrate (Lopressor Vial) 10 mg Q6HRS IVP ; Start 03/26/19 at 18:00; Stop 03/26/19 at 18:16; Status DC Fentanyl Citrate (Fentanyl 2ml Vial) 25 mcg PRN Q5MIN PRN IV MILD PAIN; Start 03/27/19 at 07:00; Stop 03/28/19 at 06:59 Fentanyl Citrate (Fentanyl 2ml Vial) 50 mcg PRN Q5MIN PRN IV MODERATE TO SEVERE PAIN; Start 03/27/19 at 07:00; Stop 03/28/19 at 06:59 Morphine Sulfate (Morphine Sulfate) 1 mg PRN Q10MIN PRN IV SEVERE PAIN; Start 03/27/19 at 07:00; Stop 03/28/19 at 06:59 Ringer's Solution 1,000 ml @ 30 mls/hr Q24H IV ; Start 03/27/19 at 07:00; Stop 03/27/19 at 18:59 Hydromorphone HCl (Dilaudid) 0.5 mg PRN Q10MIN PRN IV SEV PAIN, Second choice; Start 03/27/19 at 07:00; Stop 03/28/19 at 06:59 Midazolam HCl (Versed) 2 mg PRN 1X PRN IV PRIOR TO PROCEDURE; Start 03/27/19 at 07:15; Stop 03/27/19 at 18:00 Fentanyl Citrate (Fentanyl 2ml Vial) 25 mcg PRN Q5MIN PRN IV X 2 DOSES FOR PAIN; Start 03/27/19 at 07:15; Stop 03/27/19 at 18:00 Fentanyl Citrate (Fentanyl 2ml Vial) 50 mcg PRN Q5MIN PRN IV X 2 DOSES FOR PAIN; Start 03/27/19 at 07:15; Stop 03/27/19 at 18:00 Ringer's Solution 1,000 ml @ 125 mls/hr Q8H IV ; Start 03/27/19 at 07:06; Stop 03/27/19 at 19:05 Lidocaine HCl (Xylocaine-Mpf 1% 2ml Vial) 2 ml 1X PRN PRN ID IV START; Start 03/27/19 at 07:15; Stop 03/27/19 at 18:00 Active Scripts Active Reported Proair Hfa Inhaler (Albuterol Sulfate) 8.5 Gm Hfa.aer.ad 1 Puff INH PRN Q6HRS PRN Lantus Solostar (Insulin Glargine,Hum.rec.anlog) 100 Unit/1 Ml Insuln.pen 20 Unit SQ QHS Humalog (Insulin Lispro) 100 Unit/1 Ml Cartridge 6 Unit SQ TIDWMEALS Doxazosin Mesylate 2 Mg Tablet 2 Mg PO DAILY Omeprazole 40 Mg Capsule.dr 40 Mg PO DAILY Amlodipine Besylate 10 Mg Tablet 10 Mg PO DAILY Atorvastatin Calcium 20 Mg Tablet 20 Mg PO DAILY Atenolol 50 Mg Tablet 50 Mg PO DAILY Losartan Potassium 100 Mg Tablet 100 Mg PO DAILY Aspirin 81 Mg Tab.chew 81 Mg PO DAILY Glyburide 5 Mg Tablet 1 Tab PO BID Vitals/I & O Vital Sign - Last 24 Hours 03/26/19 03/26/19 03/26/19 03/26/19 10:00 11:00 11:30 12:00 Pulse 68 66 Resp 22 22 B/P (MAP) 136/69 (91) 140/69 (92) Pulse Ox 96 96 96 O2 Delivery Ventilator Ventilator Ventilator Mechanical Ventilator 03/26/19 03/26/19 03/26/19 03/26/19 13:00 14:00 14:07 15:00 Temp 97.6 97.6 Pulse 66 68 67 60 Resp 22 22 22 B/P (MAP) 115/61 (79) 148/71 (96) 149/72 142/71 (94) Pulse Ox 91 96 94 O2 Delivery Ventilator Ventilator Ventilator 03/26/19 03/26/19 03/26/19 03/26/19 15:35 16:00 16:00 16:59 Temp 97.0 97.0 Pulse 64 Resp 22 B/P (MAP) 148/72 (97) Pulse Ox 95 91 93 O2 Delivery Ventilator Ventilator Mechanical Ventilator Ventilator 03/26/19 03/26/19 03/26/19 03/26/19 17:00 18:00 18:22 19:00 Pulse 63 62 66 Resp 22 17 16 B/P (MAP) 123/63 (83) 140/69 (92) 150/74 (99) Pulse Ox 93 94 93 93 O2 Delivery Ventilator Ventilator Ventilator Ventilator 03/26/19 03/26/19 03/26/19 03/26/19 19:40 20:00 20:00 21:00 Temp 97.3 97.3 Pulse 68 68 Resp 21 11 B/P (MAP) 141/70 (93) 148/71 (96) Pulse Ox 93 94 93 O2 Delivery Ventilator Mechanical Ventilator Ventilator Ventilator 03/26/19 03/26/19 03/26/19 03/26/19 21:37 22:00 23:00 23:20 Pulse 66 60 Resp 16 17 B/P (MAP) 156/79 (104) 141/74 (96) Pulse Ox 93 94 94 96 O2 Delivery Ventilator Ventilator Ventilator Ventilator 03/26/19 03/27/19 03/27/19 03/27/19 23:59 00:05 00:30 00:33 Temp 96.7 96.7 Pulse 63 64 Resp 21 14 B/P (MAP) 159/82 159/82 (107) Pulse Ox 94 93 O2 Delivery Mechanical Ventilator Ventilator Ventilator 03/27/19 03/27/19 03/27/19 03/27/19 01:00 01:00 01:03 02:00 Pulse 62 62 Resp 17 20 B/P (MAP) 152/80 (104) 150/77 (101) Pulse Ox 93 96 92 O2 Delivery Ventilator Ventilator Ventilator O2 Flow Rate 40.0 03/27/19 03/27/19 03/27/19 03/27/19 03:00 03:46 04:00 04:00 Temp 97.0 97.0 Pulse 62 62 Resp 16 24 B/P (MAP) 154/81 (105) 160/84 (109) Pulse Ox 92 93 92 O2 Delivery Ventilator Ventilator Ventilator Mechanical Ventilator 03/27/19 03/27/19 03/27/19 03/27/19 05:00 05:43 06:00 06:19 Pulse 64 66 66 Resp 21 21 B/P (MAP) 162/85 (110) 161/86 (111) 166/86 Pulse Ox 93 92 91 O2 Delivery Ventilator Ventilator Ventilator 03/27/19 03/27/19 03/27/19 06:21 06:51 08:01 Resp 21 Pulse Ox 92 94 93 O2 Delivery Ventilator Ventilator Ventilator Intake and Output 03/26/19 03/26/19 03/27/19 15:00 23:00 07:00 Intake Total 75 ml 1425.41 ml 2023 ml Output Total 1075 ml 1430 ml 1325 ml Balance -1000 ml -4.59 ml 698 ml ADITYA HUSTON MD Mar 27, 2019 09:40
--- NOTE | 2019-03-27 11:02 | PDOC ---
Renal-Progress Notes Subjective Notes Notes INTUBATED History of Present Illness Hx of present illness STABLE Vitals Vitals Vital Signs Date Time Temp Pulse Resp B/P (MAP) Pulse Ox O2 Delivery O2 Flow Rate FiO2 03/27/19 10:32 92 Ventilator 03/27/19 06:51 21 03/27/19 06:19 66 166/86 03/27/19 04:00 97.0 97.0 03/27/19 01:00 40.0 Weight Weight [ ] Stability Assess. Stability Assess.: other (intubated ) I.O. Intake and Output Intake and Output 03/27/19 06:59 Intake Total 3523.41 ml Output Total 3980 ml Balance -456.59 ml IV Total 3448.41 ml Tube Feeding 0 ml Other 75 ml Output Urine Total 3980 ml Labs Labs Laboratory Tests Test 03/26/19 11:03 03/26/19 13:38 03/26/19 14:48 03/26/19 15:55 Glucose (Fingerstick) 130 mg/dL (70-99) 193 mg/dL (70-99) 199 mg/dL (70-99) 208 mg/dL (70-99) Test 03/26/19 17:09 03/26/19 18:12 03/26/19 19:15 03/26/19 20:09 Glucose (Fingerstick) 179 mg/dL (70-99) 148 mg/dL (70-99) 123 mg/dL (70-99) 116 mg/dL (70-99) Test 03/26/19 20:54 03/26/19 22:00 03/26/19 23:08 03/27/19 00:03 Glucose (Fingerstick) 100 mg/dL (70-99) 99 mg/dL (70-99) 99 mg/dL (70-99) 100 mg/dL (70-99) Test 03/27/19 01:11 03/27/19 01:59 03/27/19 03:19 03/27/19 04:05 Glucose (Fingerstick) 101 mg/dL (70-99) 104 mg/dL (70-99) 113 mg/dL (70-99) 108 mg/dL (70-99) Test 03/27/19 05:10 03/27/19 05:45 03/27/19 05:58 03/27/19 07:20 Glucose (Fingerstick) 112 mg/dL (70-99) 111 mg/dL (70-99) 121 mg/dL (70-99) Sodium Level 145 mmol/L (136-145) Potassium Level 4.2 mmol/L (3.5-5.1) Chloride Level 108 mmol/L (98-107) Carbon Dioxide Level 31 mmol/L (21-32) Anion Gap 6 (6-14) Blood Urea Nitrogen 79 mg/dL (8-26) Creatinine 0.9 mg/dL (0.7-1.3) Estimated GFR (Cockcroft-Gault) 87.3 Glucose Level 126 mg/dL (70-99) Calcium Level 8.1 mg/dL (8.5-10.1) Phosphorus Level 4.8 mg/dL (2.6-4.7) Magnesium Level 2.8 mg/dL (1.8-2.4) Test 03/27/19 08:00 03/27/19 08:38 03/27/19 09:59 O2 Saturation 92 % (92-99) Arterial Blood pH 7.48 (7.35-7.45) Arterial Blood pCO2 at Patient Temp 45 mmHg (35-46) Arterial Blood pO2 at Patient Temp 61 mmHg (75-108) Arterial Blood HCO3 33 mmol/L (21-28) Arterial Blood Base Excess 9 mmol/L (-3-3) FiO2 50 Glucose (Fingerstick) 129 mg/dL (70-99) 131 mg/dL (70-99) Micro Micro Microbiology 03/05/19 Blood Culture - Final, Complete NO GROWTH AFTER 5 DAYS 03/08/19 - Final, Complete 03/08/19 - Final, Complete 03/08/19 - Final, Complete 03/08/19 Gram Stain Evaluation - Final, Complete 03/08/19 Sputum Culture - Final, Complete 03/08/19 Sputum Result 1 - Final, Complete 03/02/19 Urine Culture - Final, Complete 03/02/19 Urine Culture Result 1 (LUCIO) - Final, Complete 03/09/19 Aerobic Culture - Final, Complete 03/09/19 Aerobic Culture Result 1 (LUCIO) - Final, Complete 03/09/19 Gram Stain - Final, Complete 03/09/19 Gram Stain Result 1 (LUCIO) - Final, Complete 03/09/19 Gram Stain Result 2 (LUCIO) - Final, Complete Review of Systems Constitutional: yes: unresponsive, other (INTUBATED AND SEDATED) Physical Exam General Appearance: other (SEDATED) Skin: warm Respiratory: decreased breath sounds Heart: S1S2 Abdomen: soft, N/T, bowel sounds present Genitourinary: bladder flat Extremities: pulses present Neurology: other (sedated) Assessment Assessment IMP LEONARD-RESOLVING HYPOKALEMIA-BETTER ANASARCA-PERSISTS BUT BETTER HYPERNATREMIA-NA BETTER 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
--- NOTE | 2019-03-27 11:35 | PDOC4 ---
Operative Note Operative Note EGD with PEG Meds propofol drip Pre-op dx oropharyngeal dysphagia Post-op dx non-erosive gastritis S/p 20 FR Bard PEG Plan advance feedings later today MAKENNA BADILLO MD Mar 27, 2019 11:35
--- NOTE | 2019-03-27 11:43 | PDOC ---
PULMONARY PROGRESS NOTES Subjective SEDATED AC MODE Vitals Vital Signs Date Time Temp Pulse Resp B/P (MAP) Pulse Ox O2 Delivery O2 Flow Rate FiO2 03/27/19 11:32 74 Tracheal Collar Ventilator 03/27/19 11:25 96 03/27/19 11:04 16 03/27/19 11:00 165/79 (107) 03/27/19 08:00 97.4 97.4 03/27/19 01:00 40.0 Comments Pt. is sedated and intubated HEENT: Other (TRACH 03/26) Lungs: Crackles, Other Cardiovascular: S1, S2 Abdomen: Soft, Non-tender, Other (obesity, increased gastric residuals) Extremities: Other (venous stasis and edema left, right BKA) Skin: Warm, Dry Labs Laboratory Tests Test 03/25/19 12:01 03/25/19 13:05 03/25/19 14:06 03/25/19 15:04 Glucose (Fingerstick) 168 mg/dL (70-99) 163 mg/dL (70-99) 158 mg/dL (70-99) 166 mg/dL (70-99) Test 03/25/19 16:02 03/25/19 17:05 03/25/19 18:02 03/25/19 19:01 Glucose (Fingerstick) 152 mg/dL (70-99) 135 mg/dL (70-99) 137 mg/dL (70-99) 154 mg/dL (70-99) Test 03/25/19 19:58 03/25/19 20:48 03/25/19 22:58 03/25/19 23:57 Glucose (Fingerstick) 154 mg/dL (70-99) 160 mg/dL (70-99) 170 mg/dL (70-99) 172 mg/dL (70-99) Test 03/26/19 01:00 03/26/19 02:03 03/26/19 03:04 03/26/19 04:04 Glucose (Fingerstick) 144 mg/dL (70-99) 124 mg/dL (70-99) 124 mg/dL (70-99) 121 mg/dL (70-99) Test 03/26/19 05:07 03/26/19 05:30 03/26/19 06:10 03/26/19 06:50 Glucose (Fingerstick) 112 mg/dL (70-99) 126 mg/dL (70-99) Sodium Level 145 mmol/L (136-145) Potassium Level 4.1 mmol/L (3.5-5.1) Chloride Level 107 mmol/L (98-107) Carbon Dioxide Level 30 mmol/L (21-32) Anion Gap 8 (6-14) Blood Urea Nitrogen 93 mg/dL (8-26) Creatinine 1.1 mg/dL (0.7-1.3) Estimated GFR (Cockcroft-Gault) 69.2 Glucose Level 132 mg/dL (70-99) Calcium Level 7.6 mg/dL (8.5-10.1) Phosphorus Level 4.4 mg/dL (2.6-4.7) Magnesium Level 2.7 mg/dL (1.8-2.4) Prothrombin Time 14.0 SEC (11.7-14.0) Prothromb Time International Ratio 1.1 (0.8-1.1) Test 03/26/19 07:10 03/26/19 07:13 03/26/19 08:42 03/26/19 09:59 O2 Saturation 91 % (92-99) Arterial Blood pH 7.40 (7.35-7.45) Arterial Blood pCO2 at Patient Temp 51 mmHg (35-46) Arterial Blood pO2 at Patient Temp 62 mmHg (75-108) Arterial Blood HCO3 31 mmol/L (21-28) Arterial Blood Base Excess 5 mmol/L (-3-3) FiO2 40 Glucose (Fingerstick) 128 mg/dL (70-99) 136 mg/dL (70-99) 137 mg/dL (70-99) Test 03/26/19 11:03 03/26/19 13:38 03/26/19 14:48 03/26/19 15:55 Glucose (Fingerstick) 130 mg/dL (70-99) 193 mg/dL (70-99) 199 mg/dL (70-99) 208 mg/dL (70-99) Test 03/26/19 17:09 03/26/19 18:12 03/26/19 19:15 03/26/19 20:09 Glucose (Fingerstick) 179 mg/dL (70-99) 148 mg/dL (70-99) 123 mg/dL (70-99) 116 mg/dL (70-99) Test 03/26/19 20:54 03/26/19 22:00 03/26/19 23:08 03/27/19 00:03 Glucose (Fingerstick) 100 mg/dL (70-99) 99 mg/dL (70-99) 99 mg/dL (70-99) 100 mg/dL (70-99) Test 03/27/19 01:11 03/27/19 01:59 03/27/19 03:19 03/27/19 04:05 Glucose (Fingerstick) 101 mg/dL (70-99) 104 mg/dL (70-99) 113 mg/dL (70-99) 108 mg/dL (70-99) Test 03/27/19 05:10 03/27/19 05:45 03/27/19 05:58 03/27/19 07:20 Glucose (Fingerstick) 112 mg/dL (70-99) 111 mg/dL (70-99) 121 mg/dL (70-99) Sodium Level 145 mmol/L (136-145) Potassium Level 4.2 mmol/L (3.5-5.1) Chloride Level 108 mmol/L (98-107) Carbon Dioxide Level 31 mmol/L (21-32) Anion Gap 6 (6-14) Blood Urea Nitrogen 79 mg/dL (8-26) Creatinine 0.9 mg/dL (0.7-1.3) Estimated GFR (Cockcroft-Gault) 87.3 Glucose Level 126 mg/dL (70-99) Calcium Level 8.1 mg/dL (8.5-10.1) Phosphorus Level 4.8 mg/dL (2.6-4.7) Magnesium Level 2.8 mg/dL (1.8-2.4) Test 03/27/19 08:00 03/27/19 08:38 03/27/19 09:59 03/27/19 11:06 O2 Saturation 92 % (92-99) Arterial Blood pH 7.48 (7.35-7.45) Arterial Blood pCO2 at Patient Temp 45 mmHg (35-46) Arterial Blood pO2 at Patient Temp 61 mmHg (75-108) Arterial Blood HCO3 33 mmol/L (21-28) Arterial Blood Base Excess 9 mmol/L (-3-3) FiO2 50 Glucose (Fingerstick) 129 mg/dL (70-99) 131 mg/dL (70-99) 139 mg/dL (70-99) Laboratory Tests Test 03/26/19 13:38 03/26/19 14:48 03/26/19 15:55 03/26/19 17:09 Glucose (Fingerstick) 193 mg/dL (70-99) 199 mg/dL (70-99) 208 mg/dL (70-99) 179 mg/dL (70-99) Test 03/26/19 18:12 03/26/19 19:15 03/26/19 20:09 03/26/19 20:54 Glucose (Fingerstick) 148 mg/dL (70-99) 123 mg/dL (70-99) 116 mg/dL (70-99) 100 mg/dL (70-99) Test 03/26/19 22:00 03/26/19 23:08 03/27/19 00:03 03/27/19 01:11 Glucose (Fingerstick) 99 mg/dL (70-99) 99 mg/dL (70-99) 100 mg/dL (70-99) 101 mg/dL (70-99) Test 03/27/19 01:59 03/27/19 03:19 03/27/19 04:05 03/27/19 05:10 Glucose (Fingerstick) 104 mg/dL (70-99) 113 mg/dL (70-99) 108 mg/dL (70-99) 112 mg/dL (70-99) Test 03/27/19 05:45 03/27/19 05:58 03/27/19 07:20 03/27/19 08:00 Sodium Level 145 mmol/L (136-145) Potassium Level 4.2 mmol/L (3.5-5.1) Chloride Level 108 mmol/L (98-107) Carbon Dioxide Level 31 mmol/L (21-32) Anion Gap 6 (6-14) Blood Urea Nitrogen 79 mg/dL (8-26) Creatinine 0.9 mg/dL (0.7-1.3) Estimated GFR (Cockcroft-Gault) 87.3 Glucose Level 126 mg/dL (70-99) Calcium Level 8.1 mg/dL (8.5-10.1) Phosphorus Level 4.8 mg/dL (2.6-4.7) Magnesium Level 2.8 mg/dL (1.8-2.4) Glucose (Fingerstick) 111 mg/dL (70-99) 121 mg/dL (70-99) O2 Saturation 92 % (92-99) Arterial Blood pH 7.48 (7.35-7.45) Arterial Blood pCO2 at Patient Temp 45 mmHg (35-46) Arterial Blood pO2 at Patient Temp 61 mmHg (75-108) Arterial Blood HCO3 33 mmol/L (21-28) Arterial Blood Base Excess 9 mmol/L (-3-3) FiO2 50 Test 03/27/19 08:38 03/27/19 09:59 03/27/19 11:06 Glucose (Fingerstick) 129 mg/dL (70-99) 131 mg/dL (70-99) 139 mg/dL (70-99) Medications Active Scripts Medications Dose Route/Sig Max Daily Dose Days Date Category Proair Hfa Inhaler (Albuterol Sulfate) 8.5 Gm Hfa.aer.ad 1 Puff INH PRN Q6HRS PRN 02/27/19 Reported Lantus Solostar (Insulin Glargine,Hum.rec.anlog) 100 Unit/1 Ml Insuln.pen 20 Unit SQ QHS 02/27/19 Reported Humalog (Insulin Lispro) 100 Unit/1 Ml Cartridge 6 Unit SQ TIDWMEALS 02/27/19 Reported Doxazosin Mesylate 2 Mg Tablet 2 Mg PO DAILY 02/27/19 Reported Omeprazole 40 Mg Capsule.dr 40 Mg PO DAILY 02/27/19 Reported Amlodipine Besylate 10 Mg Tablet 10 Mg PO DAILY 02/27/19 Reported Atorvastatin Calcium 20 Mg Tablet 20 Mg PO DAILY 02/27/19 Reported Atenolol 50 Mg Tablet 50 Mg PO DAILY 02/27/19 Reported Losartan Potassium 100 Mg Tablet 100 Mg PO DAILY 02/27/19 Reported Aspirin 81 Mg Tab.chew 81 Mg PO DAILY 02/27/19 Reported Glyburide 5 Mg Tablet 1 Tab PO BID 11/09/16 Reported Active Scripts Medications Dose Route/Sig Max Daily Dose Days Date Category Proair Hfa Inhaler (Albuterol Sulfate) 8.5 Gm Hfa.aer.ad 1 Puff INH PRN Q6HRS PRN 02/27/19 Reported Lantus Solostar (Insulin Glargine,Hum.rec.anlog) 100 Unit/1 Ml Insuln.pen 20 Unit SQ QHS 02/27/19 Reported Humalog (Insulin Lispro) 100 Unit/1 Ml Cartridge 6 Unit SQ TIDWMEALS 02/27/19 Reported Doxazosin Mesylate 2 Mg Tablet 2 Mg PO DAILY 02/27/19 Reported Omeprazole 40 Mg Capsule.dr 40 Mg PO DAILY 02/27/19 Reported Amlodipine Besylate 10 Mg Tablet 10 Mg PO DAILY 02/27/19 Reported Atorvastatin Calcium 20 Mg Tablet 20 Mg PO DAILY 02/27/19 Reported Atenolol 50 Mg Tablet 50 Mg PO DAILY 02/27/19 Reported Losartan Potassium 100 Mg Tablet 100 Mg PO DAILY 02/27/19 Reported Aspirin 81 Mg Tab.chew 81 Mg PO DAILY 02/27/19 Reported Glyburide 5 Mg Tablet 1 Tab PO BID 11/09/16 Reported Active Scripts Medications Dose Route/Sig Max Daily Dose Days Date Category Proair Hfa Inhaler (Albuterol Sulfate) 8.5 Gm Hfa.aer.ad 1 Puff INH PRN Q6HRS PRN 02/27/19 Reported Lantus Solostar (Insulin Glargine,Hum.rec.anlog) 100 Unit/1 Ml Insuln.pen 20 Unit SQ QHS 02/27/19 Reported Humalog (Insulin Lispro) 100 Unit/1 Ml Cartridge 6 Unit SQ TIDWMEALS 02/27/19 Reported Doxazosin Mesylate 2 Mg Tablet 2 Mg PO DAILY 02/27/19 Reported Omeprazole 40 Mg Capsule.dr 40 Mg PO DAILY 02/27/19 Reported Amlodipine Besylate 10 Mg Tablet 10 Mg PO DAILY 02/27/19 Reported Atorvastatin Calcium 20 Mg Tablet 20 Mg PO DAILY 02/27/19 Reported Atenolol 50 Mg Tablet 50 Mg PO DAILY 02/27/19 Reported Losartan Potassium 100 Mg Tablet 100 Mg PO DAILY 02/27/19 Reported Aspirin 81 Mg Tab.chew 81 Mg PO DAILY 02/27/19 Reported Glyburide 5 Mg Tablet 1 Tab PO BID 11/09/16 Reported Impression . Acute hypoxemic /hypercapnic respiratory failure./ ARDS sepsis./ ARDS In-house cardiopulmonary arrest. Normal EF / mild Pulmonary HTN Acute on chronic right-sided heart failure. Morbid obesity. Diabetes uncontrolled Abnormal CXR S/P TRACH 4/25 Plan . WILL CONTINUE SUPPORT NOW 50% 5 PEEP WEAN IN 48 HOURS TRACH NEW CXR REVIEWED DECREASE FIO2 ANTIBX D/W [facility] AT [facility] CCT 30 MIN PT. is DNR MAGO NI MD Mar 27, 2019 11:43
[2019-03-27] MEDS: MIDAZOLAM 100mg/100ml NS BAG 100 ML IV PRN (11:59)
[2019-03-27] MEDS: HALOPERIDOL LACTATE 5 MG/ML VIAL. IVP PRN ×2 (12:01→18:28)
--- NOTE | 2019-03-27 13:03 | PDOC ---
Progress Note Subjective Subjective No issues with tracheostomy. No air leaks, no bleeding, on PEEP 8, FIO2 50%. PEG placed today ROS ROS No nausea No vomiting No pain No rash Vital Sign Vital Signs Vital Signs Date Time Temp Pulse Resp B/P (MAP) Pulse Ox O2 Delivery O2 Flow Rate FiO2 03/27/19 12:06 82 182/82 03/27/19 12:00 Mechanical Ventilator 03/27/19 12:00 22 94 03/27/19 08:00 97.4 97.4 03/27/19 01:00 40.0 Physical Exam PHYSICAL EXAM GENERAL: Sedated and intubated. HEENT: Pupils equal, ETT. OGT LUNGS: Diminished HEART: S1, S2. regular ABDOMEN: Obese, distended, decreased bowel sounds, no grimace or guarding to palpation GENITOURINARY: [place] - less scrotal edema but still present EXTREMITIES: Generalized anasarca. RLE stump with chronic wound. No erythema/fluctuance/warmth. no cyanosis SKIN: Warm to touch. DIRECTOR OF ENTERTAINMENT: Unresponsive/sedated on vent RUE-PICC (03/09) clean Labs Lab Laboratory Tests Test 03/26/19 13:38 03/26/19 14:48 03/26/19 15:55 03/26/19 17:09 Glucose (Fingerstick) 193 mg/dL (70-99) 199 mg/dL (70-99) 208 mg/dL (70-99) 179 mg/dL (70-99) Test 03/26/19 18:12 03/26/19 19:15 03/26/19 20:09 03/26/19 20:54 Glucose (Fingerstick) 148 mg/dL (70-99) 123 mg/dL (70-99) 116 mg/dL (70-99) 100 mg/dL (70-99) Test 03/26/19 22:00 03/26/19 23:08 03/27/19 00:03 03/27/19 01:11 Glucose (Fingerstick) 99 mg/dL (70-99) 99 mg/dL (70-99) 100 mg/dL (70-99) 101 mg/dL (70-99) Test 03/27/19 01:59 03/27/19 03:19 03/27/19 04:05 03/27/19 05:10 Glucose (Fingerstick) 104 mg/dL (70-99) 113 mg/dL (70-99) 108 mg/dL (70-99) 112 mg/dL (70-99) Test 03/27/19 05:45 03/27/19 05:58 03/27/19 07:20 03/27/19 08:00 Sodium Level 145 mmol/L (136-145) Potassium Level 4.2 mmol/L (3.5-5.1) Chloride Level 108 mmol/L (98-107) Carbon Dioxide Level 31 mmol/L (21-32) Anion Gap 6 (6-14) Blood Urea Nitrogen 79 mg/dL (8-26) Creatinine 0.9 mg/dL (0.7-1.3) Estimated GFR (Cockcroft-Gault) 87.3 Glucose Level 126 mg/dL (70-99) Calcium Level 8.1 mg/dL (8.5-10.1) Phosphorus Level 4.8 mg/dL (2.6-4.7) Magnesium Level 2.8 mg/dL (1.8-2.4) Glucose (Fingerstick) 111 mg/dL (70-99) 121 mg/dL (70-99) O2 Saturation 92 % (92-99) Arterial Blood pH 7.48 (7.35-7.45) Arterial Blood pCO2 at Patient Temp 45 mmHg (35-46) Arterial Blood pO2 at Patient Temp 61 mmHg (75-108) Arterial Blood HCO3 33 mmol/L (21-28) Arterial Blood Base Excess 9 mmol/L (-3-3) FiO2 50 Test 03/27/19 08:38 03/27/19 09:59 03/27/19 11:06 03/27/19 12:12 Glucose (Fingerstick) 129 mg/dL (70-99) 131 mg/dL (70-99) 139 mg/dL (70-99) 134 mg/dL (70-99) Objective Assessment POD#1, s/p tracheostomy No issues with tracheostomy. No air leaks, no bleeding, on PEEP 8, FIO2 50%. PEG placed today Plan Plan of Care OK to downsize tracheostomy in 1 week D/c trach sutures in 1 week Management per ICU team Please call with questions HEATHER ZAVALA MD Mar 27, 2019 13:03
[2019-03-27] MEDS: ASPIRIN CHEWABLE 81 MG TABLET. PO SCH (15:56)
[2019-03-27] MEDS: INSULIN GLARGINE 300 UNITS/3 ML INSULN.PEN. SQ SCH (22:39)
[2019-03-28] VITALS (24 sets, daily range): BP systolic 101–177; BP diastolic 67–88
[2019-03-28] MEDS: METOPROLOL TARTRATE 5 MG/5 ML VIAL. IVP SCH ×5 (00:59→23:36)
[2019-03-28] MEDS: PROPOFOL 100 ML IV PRN ×3 (02:55→23:37)
[2019-03-28] MEDS: IV DEXTROSE 5% 1,000 ML IV SCH ×3 (03:12→20:52)
[2019-03-28 06:19] LABS: BASO % 0 % (0-3); EOS % 0 % (0-3); HEMOGLOBIN 11.8 g/dL (13.0-17.5); LYMPH # 0.9 x10^3/uL (1.0-4.8); LYMPH % 6 % (24-48); MEAN CORPUSCULAR HEMOGLOBIN 30 pg (25-35); MEAN CORPUSCULAR HGB CONC 32 g/dL (31-37); MEAN CORPUSCULAR VOLUME 93 fL (79-100); MONO # 0.7 x10^3/uL (0.0-1.1); MONO % 4 % (0-9); NEUT # 14.7 x10^3uL (1.8-7.7); NEUT % 90 % (31-73); PLATELET COUNT 271 x10^3/uL (140-400); RED BLOOD COUNT 3.99 x10^6/uL (4.30-5.70); RED CELL DISTRIBUTION WIDTH 14.2 % (11.5-14.5); WHITE BLOOD COUNT 16.4 x10^3/uL (4.0-11.0)
[2019-03-28] MEDS: METOCLOPRAMIDE HCL 10 MG/2 ML VIAL. IV SCH ×3 (06:24→22:00)
[2019-03-28] MEDS: FUROSEMIDE 100 MG/10 ML VIAL. IVP SCH (06:25)
[2019-03-28] MEDS: methylPREDNISolone SOD SUCC PF 125 MG/2 ML VIAL. IV SCH ×3 (06:25→22:31)
[2019-03-28] MEDS: HEPARIN for SUB-Q USE 5,000 UNIT/ML VIAL. SQ SCH ×3 (06:26→22:32)
[2019-03-28 06:44] LABS: CALCIUM 8.2 mg/dL (8.5-10.1); CREATININE 0.9 mg/dL (0.7-1.3); GFR 87.3; POTASSIUM 4.1 mmol/L (3.5-5.1)
[2019-03-28] MEDS: IPRATRPIUM/ALBUTEROL 0.5/2.5MG 3 ML NEBU. NEB SCH ×4 (08:19→19:43)
--- NOTE | 2019-03-28 08:30 | RAD ---
PORTABLE CHEST 1V History: Renal failure, ARDS Comparison: March 27, 2019 Findings: Single view of the chest is submitted. There is again tracheostomy. There is again diffuse airspace opacity of the hemithoraces bilaterally other than mild sparing of the right lung apex, overall degree of airspace opacity decreased. There is again small to moderate right pleural effusion probably unchanged. There is again suspected small left pleural effusion as left hemidiaphragm is again obscured. Heart size is stable. There is again right upper extremity PICC with the tip in the superior vena cava. No pneumothorax is identified. Impression: 1. There is persistent although decreased diffuse airspace opacity of the bilateral hemithoraces. There are again right greater than left pleural effusions. Electronically signed by: Taras Mendoza MD (03/28/2019 8:28 AM) [facility]
[2019-03-28] MEDS: ASPIRIN CHEWABLE 81 MG TABLET. PO SCH (08:31)
[2019-03-28] MEDS: FAMOTIDINE 20 MG/2 ML VIAL IVP SCH ×2 (08:31→20:51)
[2019-03-28] MEDS: NYSTATIN 100,000 UNIT/GM TOPICAL CREAM 15GM TUBE. TP SCH ×2 (08:33→20:52)
[2019-03-28 08:34] LABS: BASE EXCESS ABG 7 mmol/L (-3-3); HCO3 ABG 30 mmol/L (21-28); PCO2 ABG 39 mmHg (35-46); PO2 ABG 66 mmHg (75-108); SAT O2 ABG 93 % (92-99)
[2019-03-28] MEDS: INSULIN GLARGINE 300 UNITS/3 ML INSULN.PEN. SQ SCH ×2 (08:35→20:53)
[2019-03-28 08:38] LABS: FIO2 ABG 50
--- NOTE | 2019-03-28 10:54 | PDOC ---
PROGRESS NOTES Chief Complaint Chief Complaint ARDS s/p trach and PEG 03/27 2019 In hospital cardiac arrest with short downtime Possible hypoxic/anoxia brain injury secondary to cardiac arrest Acute respiratory failure secondary to congestive heart failure,ARDS - high peep high O2 requirements Hypernatremia secondary to severe dehydration . on dextrose iVF High residuals on tube feedings no evidence of obstructive pattern on x ray done 03/05/2019 Bilateral general scrotal swelling and tenderness. better Dm2 obesity, extreme, morbid hx RLE BKA RLE stump with chronic wound. - from DM left foot nail onychomycosis Acute renal failure ATN chronic venous insuff left lower leg Bilateral lower lobe consolidation concerning for multifocal pneumonia Right renal hypodensity measuring 2.5 cm Anasarca. bilateral external iliac lymphadenopathy Trace tricuspid regurgitation. Estimated PAP 33-38 mmHg. Diastolic CHF History of Present Illness History of Present Illness status post trach 03/26/19 status post PEG 03/27/19 PEEP of 8, FiO2 50% versed off today, down to propofol and fentanyl Soft belly today, TF ok Still on insulin gtt but now at 5 units- on dextrose iVF for persistent hypernat (146 today) Already on water flushes 250cc q6 Lasix down to 80 once a day- Good UO otherwise, PLAN: trying to get off sedation but hard to do with high PEEP pressures - (to check mental status post in hospital cardiac arrest) Family up to speed re events Agreeable to LTAC DNR Family is reasonable Continue insulin drip since I will continue dextrose IVF for now since hypernatremia is much worse today (146) MAintain corbin DNR LAbs Tfs. reglan prn Vitals Vitals Vital Signs Date Time Temp Pulse Resp B/P (MAP) Pulse Ox O2 Delivery O2 Flow Rate FiO2 03/28/19 10:10 Mechanical Ventilator 40.0 03/28/19 10:00 84 36 171/71 (104) 92 03/28/19 07:00 98.0 98.0 Physical Exam Physical Exam GENERAL: Sedated and intubated. HEENT: Pupils equal, ETT. OGT LUNGS: Diminished HEART: S1, S2. regular ABDOMEN: Obese, distended, decreased bowel sounds, no grimace or guarding to palpation GENITOURINARY: Corbin - less scrotal edema but still present EXTREMITIES: Generalized anasarca. RLE stump with chronic wound. No erythema/fluctuance/warmth. no cyanosis SKIN: Warm to touch. VESSEL ENGINEER: Unresponsive/sedated on vent RUE-PICC (03/09) clean General: Other (intubated sedated) Heart: Regular rate, Normal S1, Normal S2, No murmurs Lungs: Crackles, Other Abdomen: No tenderness Extremities: No clubbing, No cyanosis, Other (1+ EDEMA) Skin: No significant lesion Labs LABS Laboratory Tests Test 03/27/19 11:06 03/27/19 12:12 03/27/19 13:17 03/27/19 14:24 Glucose (Fingerstick) 139 mg/dL (70-99) 134 mg/dL (70-99) 137 mg/dL (70-99) 122 mg/dL (70-99) Test 03/27/19 15:27 03/27/19 16:45 03/27/19 17:48 03/27/19 18:52 Glucose (Fingerstick) 128 mg/dL (70-99) 135 mg/dL (70-99) 133 mg/dL (70-99) 122 mg/dL (70-99) Test 03/27/19 19:56 03/27/19 21:01 03/27/19 22:06 03/27/19 23:12 Glucose (Fingerstick) 129 mg/dL (70-99) 148 mg/dL (70-99) 130 mg/dL (70-99) 164 mg/dL (70-99) Test 03/28/19 00:23 03/28/19 01:29 03/28/19 02:25 03/28/19 03:42 Glucose (Fingerstick) 172 mg/dL (70-99) 176 mg/dL (70-99) 147 mg/dL (70-99) 128 mg/dL (70-99) Test 03/28/19 04:47 03/28/19 05:45 03/28/19 05:59 03/28/19 07:20 Glucose (Fingerstick) 134 mg/dL (70-99) 137 mg/dL (70-99) 133 mg/dL (70-99) White Blood Count 16.4 x10^3/uL (4.0-11.0) Red Blood Count 3.99 x10^6/uL (4.30-5.70) Hemoglobin 11.8 g/dL (13.0-17.5) Hematocrit 37.0 % (39.0-53.0) Mean Corpuscular Volume 93 fL (79-100) Mean Corpuscular Hemoglobin 30 pg (25-35) Mean Corpuscular Hemoglobin Concent 32 g/dL (31-37) Red Cell Distribution Width 14.2 % (11.5-14.5) Platelet Count 271 x10^3/uL (140-400) Neutrophils (%) (Auto) 90 % (31-73) Lymphocytes (%) (Auto) 6 % (24-48) Monocytes (%) (Auto) 4 % (0-9) Eosinophils (%) (Auto) 0 % (0-3) Basophils (%) (Auto) 0 % (0-3) Neutrophils # (Auto) 14.7 x10^3uL (1.8-7.7) Lymphocytes # (Auto) 0.9 x10^3/uL (1.0-4.8) Monocytes # (Auto) 0.7 x10^3/uL (0.0-1.1) Eosinophils # (Auto) 0.0 x10^3/uL (0.0-0.7) Basophils # (Auto) 0.0 x10^3/uL (0.0-0.2) Sodium Level 146 mmol/L (136-145) Potassium Level 4.1 mmol/L (3.5-5.1) Chloride Level 106 mmol/L (98-107) Carbon Dioxide Level 32 mmol/L (21-32) Anion Gap 8 (6-14) Blood Urea Nitrogen 62 mg/dL (8-26) Creatinine 0.9 mg/dL (0.7-1.3) Estimated GFR (Cockcroft-Gault) 87.3 Glucose Level 146 mg/dL (70-99) Calcium Level 8.2 mg/dL (8.5-10.1) Test 03/28/19 08:25 03/28/19 08:31 03/28/19 09:50 O2 Saturation 93 % (92-99) Arterial Blood pH 7.51 (7.35-7.45) Arterial Blood pCO2 at Patient Temp 39 mmHg (35-46) Arterial Blood pO2 at Patient Temp 66 mmHg (75-108) Arterial Blood HCO3 30 mmol/L (21-28) Arterial Blood Base Excess 7 mmol/L (-3-3) FiO2 50 Glucose (Fingerstick) 144 mg/dL (70-99) 128 mg/dL (70-99) Review of Systems Review of Systems Intubated sedated Assessment and Plan Assessmemt and Plan Problems Medical Problems: (1) Acute renal failure Status: Acute (2) Edema Status: Acute (3) Shortness of breath Status: Acute Comment Review of Relevant I have reviewed the following items pascual (where applicable) has been applied. Labs Laboratory Tests Test 03/26/19 11:03 03/26/19 13:38 03/26/19 14:48 03/26/19 15:55 Glucose (Fingerstick) 130 mg/dL (70-99) 193 mg/dL (70-99) 199 mg/dL (70-99) 208 mg/dL (70-99) Test 03/26/19 17:09 03/26/19 18:12 03/26/19 19:15 03/26/19 20:09 Glucose (Fingerstick) 179 mg/dL (70-99) 148 mg/dL (70-99) 123 mg/dL (70-99) 116 mg/dL (70-99) Test 03/26/19 20:54 03/26/19 22:00 03/26/19 23:08 03/27/19 00:03 Glucose (Fingerstick) 100 mg/dL (70-99) 99 mg/dL (70-99) 99 mg/dL (70-99) 100 mg/dL (70-99) Test 03/27/19 01:11 03/27/19 01:59 03/27/19 03:19 03/27/19 04:05 Glucose (Fingerstick) 101 mg/dL (70-99) 104 mg/dL (70-99) 113 mg/dL (70-99) 108 mg/dL (70-99) Test 03/27/19 05:10 03/27/19 05:45 03/27/19 05:58 03/27/19 07:20 Glucose (Fingerstick) 112 mg/dL (70-99) 111 mg/dL (70-99) 121 mg/dL (70-99) Sodium Level 145 mmol/L (136-145) Potassium Level 4.2 mmol/L (3.5-5.1) Chloride Level 108 mmol/L (98-107) Carbon Dioxide Level 31 mmol/L (21-32) Anion Gap 6 (6-14) Blood Urea Nitrogen 79 mg/dL (8-26) Creatinine 0.9 mg/dL (0.7-1.3) Estimated GFR (Cockcroft-Gault) 87.3 Glucose Level 126 mg/dL (70-99) Calcium Level 8.1 mg/dL (8.5-10.1) Phosphorus Level 4.8 mg/dL (2.6-4.7) Magnesium Level 2.8 mg/dL (1.8-2.4) Test 03/27/19 08:00 03/27/19 08:38 03/27/19 09:59 03/27/19 11:06 O2 Saturation 92 % (92-99) Arterial Blood pH 7.48 (7.35-7.45) Arterial Blood pCO2 at Patient Temp 45 mmHg (35-46) Arterial Blood pO2 at Patient Temp 61 mmHg (75-108) Arterial Blood HCO3 33 mmol/L (21-28) Arterial Blood Base Excess 9 mmol/L (-3-3) FiO2 50 Glucose (Fingerstick) 129 mg/dL (70-99) 131 mg/dL (70-99) 139 mg/dL (70-99) Test 03/27/19 12:12 03/27/19 13:17 03/27/19 14:24 03/27/19 15:27 Glucose (Fingerstick) 134 mg/dL (70-99) 137 mg/dL (70-99) 122 mg/dL (70-99) 128 mg/dL (70-99) Test 03/27/19 16:45 03/27/19 17:48 03/27/19 18:52 03/27/19 19:56 Glucose (Fingerstick) 135 mg/dL (70-99) 133 mg/dL (70-99) 122 mg/dL (70-99) 129 mg/dL (70-99) Test 03/27/19 21:01 03/27/19 22:06 03/27/19 23:12 03/28/19 00:23 Glucose (Fingerstick) 148 mg/dL (70-99) 130 mg/dL (70-99) 164 mg/dL (70-99) 172 mg/dL (70-99) Test 03/28/19 01:29 03/28/19 02:25 03/28/19 03:42 03/28/19 04:47 Glucose (Fingerstick) 176 mg/dL (70-99) 147 mg/dL (70-99) 128 mg/dL (70-99) 134 mg/dL (70-99) Test 03/28/19 05:45 03/28/19 05:59 03/28/19 07:20 03/28/19 08:25 White Blood Count 16.4 x10^3/uL (4.0-11.0) Red Blood Count 3.99 x10^6/uL (4.30-5.70) Hemoglobin 11.8 g/dL (13.0-17.5) Hematocrit 37.0 % (39.0-53.0) Mean Corpuscular Volume 93 fL (79-100) Mean Corpuscular Hemoglobin 30 pg (25-35) Mean Corpuscular Hemoglobin Concent 32 g/dL (31-37) Red Cell Distribution Width 14.2 % (11.5-14.5) Platelet Count 271 x10^3/uL (140-400) Neutrophils (%) (Auto) 90 % (31-73) Lymphocytes (%) (Auto) 6 % (24-48) Monocytes (%) (Auto) 4 % (0-9) Eosinophils (%) (Auto) 0 % (0-3) Basophils (%) (Auto) 0 % (0-3) Neutrophils # (Auto) 14.7 x10^3uL (1.8-7.7) Lymphocytes # (Auto) 0.9 x10^3/uL (1.0-4.8) Monocytes # (Auto) 0.7 x10^3/uL (0.0-1.1) Eosinophils # (Auto) 0.0 x10^3/uL (0.0-0.7) Basophils # (Auto) 0.0 x10^3/uL (0.0-0.2) Sodium Level 146 mmol/L (136-145) Potassium Level 4.1 mmol/L (3.5-5.1) Chloride Level 106 mmol/L (98-107) Carbon Dioxide Level 32 mmol/L (21-32) Anion Gap 8 (6-14) Blood Urea Nitrogen 62 mg/dL (8-26) Creatinine 0.9 mg/dL (0.7-1.3) Estimated GFR (Cockcroft-Gault) 87.3 Glucose Level 146 mg/dL (70-99) Calcium Level 8.2 mg/dL (8.5-10.1) Glucose (Fingerstick) 137 mg/dL (70-99) 133 mg/dL (70-99) O2 Saturation 93 % (92-99) Arterial Blood pH 7.51 (7.35-7.45) Arterial Blood pCO2 at Patient Temp 39 mmHg (35-46) Arterial Blood pO2 at Patient Temp 66 mmHg (75-108) Arterial Blood HCO3 30 mmol/L (21-28) Arterial Blood Base Excess 7 mmol/L (-3-3) FiO2 50 Test 03/28/19 08:31 03/28/19 09:50 Glucose (Fingerstick) 144 mg/dL (70-99) 128 mg/dL (70-99) Laboratory Tests Test 03/27/19 11:06 03/27/19 12:12 03/27/19 13:17 03/27/19 14:24 Glucose (Fingerstick) 139 mg/dL (70-99) 134 mg/dL (70-99) 137 mg/dL (70-99) 122 mg/dL (70-99) Test 03/27/19 15:27 03/27/19 16:45 03/27/19 17:48 03/27/19 18:52 Glucose (Fingerstick) 128 mg/dL (70-99) 135 mg/dL (70-99) 133 mg/dL (70-99) 122 mg/dL (70-99) Test 03/27/19 19:56 03/27/19 21:01 03/27/19 22:06 03/27/19 23:12 Glucose (Fingerstick) 129 mg/dL (70-99) 148 mg/dL (70-99) 130 mg/dL (70-99) 164 mg/dL (70-99) Test 03/28/19 00:23 03/28/19 01:29 03/28/19 02:25 03/28/19 03:42 Glucose (Fingerstick) 172 mg/dL (70-99) 176 mg/dL (70-99) 147 mg/dL (70-99) 128 mg/dL (70-99) Test 03/28/19 04:47 03/28/19 05:45 03/28/19 05:59 03/28/19 07:20 Glucose (Fingerstick) 134 mg/dL (70-99) 137 mg/dL (70-99) 133 mg/dL (70-99) White Blood Count 16.4 x10^3/uL (4.0-11.0) Red Blood Count 3.99 x10^6/uL (4.30-5.70) Hemoglobin 11.8 g/dL (13.0-17.5) Hematocrit 37.0 % (39.0-53.0) Mean Corpuscular Volume 93 fL (79-100) Mean Corpuscular Hemoglobin 30 pg (25-35) Mean Corpuscular Hemoglobin Concent 32 g/dL (31-37) Red Cell Distribution Width 14.2 % (11.5-14.5) Platelet Count 271 x10^3/uL (140-400) Neutrophils (%) (Auto) 90 % (31-73) Lymphocytes (%) (Auto) 6 % (24-48) Monocytes (%) (Auto) 4 % (0-9) Eosinophils (%) (Auto) 0 % (0-3) Basophils (%) (Auto) 0 % (0-3) Neutrophils # (Auto) 14.7 x10^3uL (1.8-7.7) Lymphocytes # (Auto) 0.9 x10^3/uL (1.0-4.8) Monocytes # (Auto) 0.7 x10^3/uL (0.0-1.1) Eosinophils # (Auto) 0.0 x10^3/uL (0.0-0.7) Basophils # (Auto) 0.0 x10^3/uL (0.0-0.2) Sodium Level 146 mmol/L (136-145) Potassium Level 4.1 mmol/L (3.5-5.1) Chloride Level 106 mmol/L (98-107) Carbon Dioxide Level 32 mmol/L (21-32) Anion Gap 8 (6-14) Blood Urea Nitrogen 62 mg/dL (8-26) Creatinine 0.9 mg/dL (0.7-1.3) Estimated GFR (Cockcroft-Gault) 87.3 Glucose Level 146 mg/dL (70-99) Calcium Level 8.2 mg/dL (8.5-10.1) Test 03/28/19 08:25 03/28/19 08:31 03/28/19 09:50 O2 Saturation 93 % (92-99) Arterial Blood pH 7.51 (7.35-7.45) Arterial Blood pCO2 at Patient Temp 39 mmHg (35-46) Arterial Blood pO2 at Patient Temp 66 mmHg (75-108) Arterial Blood HCO3 30 mmol/L (21-28) Arterial Blood Base Excess 7 mmol/L (-3-3) FiO2 50 Glucose (Fingerstick) 144 mg/dL (70-99) 128 mg/dL (70-99) Microbiology 03/05/19 Blood Culture - Final, Complete NO GROWTH AFTER 5 DAYS 03/08/19 - Final, Complete 03/08/19 - Final, Complete 03/08/19 - Final, Complete 03/08/19 Gram Stain Evaluation - Final, Complete 03/08/19 Sputum Culture - Final, Complete 03/08/19 Sputum Result 1 - Final, Complete 03/02/19 Urine Culture - Final, Complete 03/02/19 Urine Culture Result 1 (LUCIO) - Final, Complete 03/09/19 Aerobic Culture - Final, Complete 03/09/19 Aerobic Culture Result 1 (LUCIO) - Final, Complete 03/09/19 Gram Stain - Final, Complete 03/09/19 Gram Stain Result 1 (LUCIO) - Final, Complete 03/09/19 Gram Stain Result 2 (LUCIO) - Final, Complete Medications Current Medications Ondansetron HCl (Zofran) 4 mg PRN Q8HRS PRN IV NAUSEA/VOMITING; Start 02/27/19 at 16:45; Stop 02/28/19 at 16:44; Status DC Morphine Sulfate (Morphine Sulfate) 2 mg PRN Q2HR PRN IV PAIN; Start 02/27/19 at 16:45; Stop 02/28/19 at 16:44; Status DC Acetaminophen (Tylenol) 650 mg PRN Q4HRS PRN PO FEVER Last administered on 02/27/19at 21:06; Start 02/27/19 at 16:45; Stop 02/28/19 at 16:44; Status DC Dextrose (Dextrose 50%-Water Syringe) 12.5 gm PRN Q15MIN PRN IV SEE COMMENTS; Start 02/27/19 at 16:45; Stop 03/10/19 at 13:48; Status DC Heparin Sodium (Porcine) (Heparin Sodium) 5,000 unit Q8HRS SQ Last administered on 03/28/19at 06:26; Start 02/27/19 at 17:00 Lorazepam (Ativan) 1 mg PRN Q8HRS PRN IV ANXIETY / AGITATION Last administered on 03/08/19at 03:37; Start 02/28/19 at 02:45 Etomidate (Amidate) 20 mg STK-MED ONCE IV ; Start 02/28/19 at 06:59; Stop 02/28/19 at 07:00; Status DC Rocuronium [place] (Zemuron) 50 mg STK-MED ONCE .ROUTE ; Start 02/28/19 at 07:00; Stop 02/28/19 at 09:42; Status DC Dopamine HCl/ Dextrose 250 ml @ 12.266 mls/ hr CONT PRN IV SEE I/O RECORD Last administered on 02/28/19at 08:06; Start 02/28/19 at 07:15; Stop 03/17/19 at 15:50; Status DC Fentanyl Citrate 30 ml @ 0 mls/hr CONT PRN IV SEE PROTOCOL; Start 02/28/19 at 07:15; Stop 02/28/19 at 07:59; Status DC Propofol 100 ml @ 0 mls/hr CONT PRN IV SEE PROTOCOL; Start 02/28/19 at 07:15; Stop 02/28/19 at 07:59; Status DC Fentanyl Citrate (Fentanyl 2ml Vial) 25 mcg PRN Q1HR PRN IV SEE COMMENTS; Start 02/28/19 at 07:15; Stop 02/28/19 at 07:59; Status DC Fentanyl Citrate (Fentanyl 2ml Vial) 50 mcg PRN Q1HR PRN IV SEE COMMENTS; Start 02/28/19 at 07:15; Stop 02/28/19 at 07:59; Status DC Midazolam HCl 100 ml @ 0 mls/hr CONT PRN IV SEE PROTOCOL Last administered on 03/27/19at 11:59; Start 02/28/19 at 07:15 Sodium Chloride 1,000 ml @ 1,000 mls/hr Q1H IV Last administered on 02/28/19at 07:32; Start 02/28/19 at 07:32; Stop 02/28/19 at 10:09; Status DC Fentanyl Citrate (Fentanyl 2ml Vial) 25 mcg PRN Q30MIN PRN IV see comments; Start 02/28/19 at 07:45; Stop 02/28/19 at 09:42; Status DC Lorazepam (Ativan) 1 mg PRN Q30MIN PRN IV SEDATION; Start 02/28/19 at 07:45; Stop 02/28/19 at 09:42; Status DC Fentanyl Citrate 30 ml @ 2.5 mls/hr CONT PRN PRN IV SEE I/O RECORD Last adm inistered on 03/05/19at 03:44; Start 02/28/19 at 07:45; Stop 03/05/19 at 04:40; Status DC Propofol 100 ml @ 0 mls/hr CONT PRN IV SEE I/O RECORD Last administered on 03/28/19at 02:55; Start 02/28/19 at 07:45 Vecuronium [place] (Norcuron Bolus) 10 mg PRN Q30MIN PRN IV SHIVERING; Start 02/28/19 at 07:45; Stop 02/28/19 at 09:42; Status DC Meperidine HCl (Demerol) 12.5 mg PRN Q30MIN PRN IV SHIVERING; Start 02/28/19 at 07:45; Stop 02/28/19 at 09:42; Status DC Multi-Ingred Cream/Lotion/Oil/ Oint (Artificial Tears Eye Ointment) 1 jennifer PRN Q6HRS PRN OU 0.5 INCH FOR DRY EYE; Start 02/28/19 at 07:45; Stop 02/28/19 at 09:42; Status DC Famotidine (Pepcid Vial) 20 mg BID IVP Last administered on 02/28/19at 11:03; Start 02/28/19 at 09:00; Stop 02/28/19 at 14:25; Status DC Aspirin (Aspirin) 300 mg DAILY CO ; Start 02/28/19 at 09:00; Stop 02/28/19 at 09:42; Status DC Sodium Chloride (Normal Saline Flush) 3 ml QSHIFT PRN IV AFTER MEDS AND BLOOD DRAWS; Start 02/28/19 at 07:45 Acetaminophen (Tylenol) 650 mg Q6HRS NG ; Start 02/28/19 at 12:00; Stop 02/28/19 at 12:00; Status DC Acetaminophen (Tylenol Supp) 650 mg PRN Q6HRS PRN CO MILD PAIN / TEMP; Start 03/01/19 at 07:45; Stop 03/01/19 at 07:45; Status DC Acetaminophen (Tylenol) 650 mg PRN Q6HRS PRN NG MILD PAIN / TEMP; Start 03/01/19 at 07:45; Stop 03/01/19 at 07:45; Status DC Info (Icu Electrolyte Protocol) 1 ea DAILY PRN MC PER PROTOCOL; Start 03/02/19 at 07:45; Stop 03/02/19 at 07:45; Status DC Furosemide (Lasix) 60 mg 1X ONCE IVP Last administered on 02/28/19at 08:30; Start 02/28/19 at 08:30; Stop 02/28/19 at 08:31; Status DC Ceftriaxone Sodium (Rocephin) 1 gm Q24H IVP Last administered on 02/28/19at 11:03; Start 02/28/19 at 11:00; Stop 02/28/19 at 11:18; Status DC Calcium Chloride 1000 mg/Dextrose 60 ml @ 120 mls/hr 1X ONCE IV Last administered on 02/28/19at 11:03; Start 02/28/19 at 10:30; Stop 02/28/19 at 10:59; Status DC Meropenem 500 mg/ Sodium Chloride 50 ml @ 100 mls/hr Q8HRS IV Last administered on 03/03/19at 06:24; Start 02/28/19 at 14:00; Stop 03/03/19 at 07:04; Status DC Linezolid/Dextrose 300 ml @ 300 mls/hr Q12HR IV Last administered on 03/03/19at 20:00; Start 02/28/19 at 11:30; Stop 03/04/19 at 08:55; Status DC Micafungin Sodium 100 mg/Dextrose 100 ml @ 100 mls/hr Q24H IV Last administered on 03/04/19at 15:53; Start 02/28/19 at 12:00; Stop 03/05/19 at 06:47; Status DC Furosemide (Lasix) 40 mg [id number] IVP Last administered on 03/02/19 14:06; Start 02/28/19 at 14:00; Stop 03/02/19 at 17:02; Status DC Famotidine (Pepcid Vial) 20 mg QHS IVP Last administered on 03/01/19at 21:24; Start 02/28/19 at 21:00; Stop 03/02/19 at 10:07; Status DC Albuterol/ Ipratropium (Duoneb) 3 ml RTQID NEB Last administered on 03/28/19 08:19; Start 02/28/19 at 16:00 Haloperidol Lactate (Haldol Inj) 5 mg PRN Q6HRS PRN IVP AGITATION 2ND CHOICE Last administered on 03/27/19at 18:28; Start 02/28/19 at 15:15 Vecuronium [place] (Norcuron Bolus) 8 mg PRN Q4HRS PRN IV MUSCLE SPASMS Last administered on 03/12/19at 23:48; Start 02/28/19 at 15:15 Perflutren Protein Type A Microsphe (Optison) 0.66 mg PRN 1X PRN IV SEE COMMENTS; Start 03/01/19 at 10:00; Stop 03/02/19 at 09:59; Status DC Digoxin (Lanoxin) 125 mcg 1X STAT IV ; Start 03/01/19 at 15:34; Stop 03/01/19 at 16:00; Status DC Sodium Chloride 500 ml @ 500 mls/hr 1X ONCE IV Last administered on 03/01/19at 18:46; Start 03/01/19 at 18:45; Stop 03/01/19 at 19:44; Status DC Famotidine (Pepcid Vial) 20 mg Q12HR IVP Last administered on 03/28/19 08:31; Start 03/02/19 at 21:00 Furosemide (Lasix) 40 mg DAILY IVP Last administered on 03/04/19 09:52; Start 03/03/19 at 09:00; Stop 03/04/19 at 12:13; Status DC Acetaminophen (Tylenol Supp) 650 mg PRN Q6HRS PRN CO MILD PAIN / TEMP Last administered on 03/03/19at 17:39; Start 03/02/19 at 17:15 Meropenem 500 mg/ Sodium Chloride 50 ml @ 100 mls/hr Q6HRS IV Last administered on 03/05/19 05:33; Start 03/03/19 at 12:00; Stop 03/05/19 at 06:47; Status DC Albumin Human 100 ml @ 100 mls/hr 1X ONCE IV Last administered on 03/03/19 08:52; Start 03/03/19 at 08:30; Stop 03/03/19 at 09:29; Status DC Atropine Sulfate (ATROPINE 0.5mg SYRINGE) 2 mg STK-MED ONCE .ROUTE ; Start 02/27/19 at 16:21; Stop 03/03/19 at 16:22; Status DC Dopamine HCl/ Dextrose (DOPamine 400MG/ 250ML PREMIX) 400 mg STK-MED ONCE IV ; Start 02/27/19 at 16:21; Stop 03/03/19 at 16:22; Status DC Furosemide (Lasix) 40 mg 1X ONCE IVP Last administered on 03/03/19 18:46; Start 03/03/19 at 18:45; Stop 03/03/19 at 18:46; Status DC Lorazepam 100 mg/ Sodium Chloride 100 ml @ 0 mls/hr CONT PRN IV SEE PROTOCOL Last administered on 03/03/19 22:18; Start 03/03/19 at 22:00; Stop 03/17/19 at 15:39; Status DC Acetaminophen (Tylenol) 650 mg PRN Q6HRS PRN PEG MILD PAIN / TEMP Last admini stered on 03/10/19 20:48; Start 03/04/19 at 11:45 Furosemide (Lasix) 40 mg [id number] IVP Last administered on 03/06/19 08:38; Start 03/04/19 at 14:00; Stop 03/06/19 at 13:30; Status DC Fentanyl Citrate 30 ml @ 0 mls/hr CONT PRN IV SEE PROTOCOL Last administered on 03/27/19 16:35; Start 03/05/19 at 04:45 Cefepime HCl (Maxipime) 2 gm Q8HRS IVP Last administered on 03/10/19 05:43; Start 03/05/19 at 06:45; Stop 03/10/19 at 08:29; Status DC Metronidazole 100 ml @ 100 mls/hr Q8HRS IV Last administered on 03/10/19at 0 5:45; Start 03/05/19 at 06:45; Stop 03/10/19 at 08:29; Status DC Linezolid/Dextrose 300 ml @ 300 mls/hr Q12HR IV Last administered on 03/05/19 21:24; Start 03/05/19 at 09:00; Stop 03/06/19 at 06:42; Status DC Metoclopramide HCl (Reglan Vial) 10 mg QIDACHS IV Last administered on 03/06/19 20:43; Start 03/05/19 at 11:30; Stop 03/07/19 at 07:37; Status DC Insulin Glargine (Lantus) 12 units BID SQ Last administered on 03/09/19 09:29; Start 03/05/19 at 09:00; Stop 03/09/19 at 17:11; Status DC Digoxin (Lanoxin) 500 mcg 1X ONCE IV Last administered on 03/06/19at 00:48; Start 03/06/19 at 00:45; Stop 03/06/19 at 00:46; Status DC Metoprolol Tartrate (Lopressor Vial) 5 mg 1X ONCE IVP Last administered on 03/06/19 00:53; Start 03/06/19 at 00:45; Stop 03/06/19 at 00:46; Status DC Sodium Chloride 500 ml @ 500 mls/hr 1X ONCE IV Last administered on 03/06/19 00:49; Start 03/06/19 at 00:45; Stop 03/06/19 at 01:44; Status DC Nystatin (Mycostatin) 1 jennifer BID TP Last administered on 03/28/19 08:33; Start 03/06/19 at 09:00 Sodium Cl/Sod Bicarb/Potass Cl/ PEG (Golytely) 2,000 ml 1X ONCE PO Last administered on 03/06/19 09:33; Start 03/06/19 at 08:00; Stop 03/06/19 at 08:01; Status DC Furosemide (Lasix) 40 mg DAILY08 IVP Last administered on 03/09/19 09:27; Start 03/07/19 at 08:00; Stop 03/09/19 at 12:45; Status DC Metoprolol Tartrate (Lopressor Vial) 10 mg 1X ONCE IVP Last administered on 03/06/19at 16:08; Start 03/06/19 at 15:15; Stop 03/06/19 at 15:16; Status DC Metoprolol Tartrate (Lopressor Vial) 5 mg Q6HRS IVP Last administered on 03/07/19at 17:03; Start 03/06/19 at 18:00; Stop 03/07/19 at 18:27; Status DC Aspirin (Children'S Aspirin) 81 mg 1X ONCE PO Last administered on 03/06/19at 18:18; Start 03/06/19 at 17:00; Stop 03/06/19 at 17:01; Status DC Aspirin (Children'S Aspirin) 81 mg DAILYWBKFT PO Last administered on 03/28/19at 08:31; Start 03/07/19 at 08:00 Labetalol HCl (Normodyne Iv Push) 20 mg PRN Q2HR PRN IVP HYPERTENSION, SEE COMMENTS Last administered on 03/06/19at 21:29; Start 03/06/19 at 17:15 Digoxin (Lanoxin) 250 mcg 1X ONCE IV Last administered on 03/06/19at 22:00; Start 03/06/19 at 22:00; Stop 03/06/19 at 22:01; Status DC Diltiazem HCl 125 mg/Dextrose 125 ml @ 5 mls/hr CONT PRN IV SEE I/O RECORD Last administered on 03/12/19at 08:20; Start 03/06/19 at 23:00; Stop 03/12/19 at 11:03; Status DC Metoclopramide HCl (Reglan Vial) 10 mg Q6HRS IV ; Start 03/07/19 at 08:00; Stop 03/08/19 at 07:51; Status DC Metoprolol Tartrate (Lopressor Vial) 5 mg Q6HRS IVP Last administered on 03/28/19at 06:25; Start 03/08/19 at 12:00 Furosemide (Lasix) 40 mg 1X ONCE IVP Last administered on 03/08/19at 21:21; Start 03/08/19 at 21:00; Stop 03/08/19 at 21:01; Status DC Furosemide (Lasix) 20 mg DAILY08 IVP ; Start 03/10/19 at 08:00; Stop 03/10/19 at 08:00; Status DC Furosemide (Lasix) 20 mg DAILY08 IVP Last administered on 03/14/19at 07:41; Start 03/10/19 at 08:00; Stop 03/15/19 at 07:32; Status DC Insulin Glargine (Lantus) 16 units BID SQ Last administered on 03/12/19at 00:09; Start 03/09/19 at 21:00; Stop 03/12/19 at 07:18; Status DC Insulin Human Lispro (HumaLOG) 0-9 UNITS Q6HRS SQ Last administered on 03/12/19at 05:45; Start 03/09/19 at 18:00; Stop 03/12/19 at 07:18; Status DC Dextrose (Dextrose 50%-Water Syringe) 12.5 gm PRN Q15MIN PRN IV SEE COMMENTS; Start 03/09/19 at 17:15; Stop 03/21/19 at 10:07; Status DC Cefepime HCl (Maxipime) 2 gm Q12HR IVP Last administered on 03/21/19at 08:26; Start 03/10/19 at 21:00; Stop 03/21/19 at 12:48; Status DC Insulin Human Lispro (HumaLOG) 15 units 1X ONCE SQ Last administered on 03/11/19at 00:14; Start 03/11/19 at 00:00; Stop 03/11/19 at 00:01; Status DC Insulin Glargine (Lantus) 20 units BID SQ Last administered on 03/17/19at 08:32; Start 03/12/19 at 09:00; Stop 03/17/19 at 10:46; Status DC Insulin Human Lispro (HumaLOG) 0-9 UNITS Q6HRS SQ Last administered on at 06:35; Start 03/12/19 at 12:00; Stop 03/21/19 at 10:00; Status DC Diltiazem HCl (Cardizem) 30 mg Q6HRS PO Last administered on 03/26/19at 05:46; Start 03/12/19 at 12:00; Stop 03/26/19 at 13:47; Status DC Furosemide (Lasix) 20 mg 1X ONCE IVP Last administered on 03/13/19at 11:04; Start 03/13/19 at 10:30; Stop 03/13/19 at 10:31; Status DC Furosemide (Lasix) 20 mg 1X ONCE IVP Last administered on 03/14/19at 07:40; Start 03/14/19 at 07:15; Stop 03/14/19 at 14:05; Status DC Furosemide (Lasix) 40 mg Q8HRS IVP Last administered on 03/17/19at 05:49; Start 03/14/19 at 22:00; Stop 03/17/19 at 10:58; Status DC Albuterol Sulfate (Ventolin Neb Soln) 2.5 mg 1X ONCE NEB Last administered on 03/16/19at 04:00; Start 03/16/19 at 04:00; Stop 03/16/19 at 04:01; Status DC Methylprednisolone Sodium Succinate (SOLU-Medrol 40MG VIAL) 80 mg 1X ONCE IV Last administered on 03/16/19at 04:17; Start 03/16/19 at 04:30; Stop 03/16/19 at 04:31; Status DC Furosemide (Lasix) 20 mg 1X ONCE IVP Last administered on 03/16/19at 04:17; Start 03/16/19 at 04:30; Stop 03/16/19 at 04:31; Status DC Insulin Glargine (Lantus) 25 units BID SQ Last administered on 03/21/19at 08:55; Start 03/17/19 at 21:00; Stop 03/21/19 at 10:00; Status DC Insulin Human Lispro (HumaLOG) 10 units Q6HRS SQ ; Start 03/17/19 at 12:00; Stop 03/17/19 at 13:32; Status DC Furosemide (Lasix) 40 mg QD IVP Last administered on 03/18/19at 05:55; Start 03/18/19 at 06:00; Stop 03/18/19 at 10:54; Status DC Insulin Human Lispro (HumaLOG) 3 units Q6HRS SQ Last administered on 03/19/19at 06:12; Start 03/17/19 at 18:00; Stop 03/19/19 at 08:28; Status DC Azithromycin 250 mg/Sodium Chloride 250 ml @ 250 mls/hr Q24H IV Last administered on 03/23/19at 08:13; Start 03/18/19 at 08:00; Stop 03/23/19 at 16:23; Status DC Alteplase, Recombinant (Cathflo For Central Catheter Clearance) 1 mg 1X ONCE INT CAT Last administered on 03/18/19at 09:21; Start 03/18/19 at 07:30; Stop 03/18/19 at 07:31; Status DC Alteplase, Recombinant (Cathflo For Central Catheter Clearance) 1 mg 1X ONCE INT CAT Last administered on 03/18/19at 11:04; Start 03/18/19 at 07:30; Stop 03/18/19 at 07:31; Status DC Alteplase, Recombinant (Cathflo For Central Catheter Clearance) 1 mg 1X ONCE INT CAT Last administered on 03/18/19at 13:26; Start 03/18/19 at 07:30; Stop 03/18/19 at 07:31; Status DC Furosemide (Lasix) 60 mg 1X ONCE IVP Last administered on 03/18/19at 11:04; Start 03/18/19 at 10:54; Stop 03/18/19 at 10:55; Status DC Furosemide (Lasix) 40 mg Q8HRS IVP ; Start 03/18/19 at 14:00; Stop 03/18/19 at 17:53; Status DC Digoxin (Lanoxin) 250 mcg 1X ONCE IV Last administered on 03/18/19at 15:48; Start 03/18/19 at 15:30; Stop 03/18/19 at 15:33; Status DC Furosemide (Lasix) 40 mg Q8HRS IVP Last administered on 03/20/19at 05:42; Start 03/18/19 at 20:00; Stop 03/20/19 at 08:48; Status DC Digoxin (Lanoxin) 500 mcg 1X ONCE IV Last administered on 03/18/19at 19:35; Start 03/18/19 at 20:00; Stop 03/18/19 at 20:01; Status DC Insulin Human Lispro (HumaLOG) 6 units Q6HRS SQ Last administered on 03/20/19at 05:45; Start 03/19/19 at 12:00; Stop 03/20/19 at 08:48; Status DC Furosemide (Lasix) 80 mg Q8HRS IVP Last administered on 03/22/19at 12:43; Start 03/20/19 at 14:00; Stop 03/22/19 at 17:00; Status DC Insulin Human Lispro (HumaLOG) 9 units Q6HRS SQ Last administered on 03/21/19at 06:36; Start 03/20/19 at 12:00; Stop 03/21/19 at 10:00; Status DC Methylprednisolone Sodium Succinate (SOLU-Medrol 125MG VIAL) 80 mg Q8HRS IV Last administered on 03/28/19at 06:25; Start 03/20/19 at 11:00 Alteplase, Recombinant (Cathflo For Central Catheter Clearance) 1 mg 1X ONCE INT CAT Last administered on 03/20/19at 20:23; Start 03/20/19 at 20:00; Stop 03/20/19 at 20:09; Status DC Alteplase, Recombinant (Cathflo For Central Catheter Clearance) 1 mg 1X ONCE INT CAT Last administered on 03/20/19at 20:23; Start 03/20/19 at 20:00; Stop 03/20/19 at 20:09; Status DC Alteplase, Recombinant (Cathflo For Central Catheter Clearance) 1 mg 1X ONCE INT CAT Last administered on 03/20/19at 20:23; Start 03/20/19 at 20:00; Stop 03/20/19 at 20:09; Status DC Insulin Human Regular 150 unit/ Sodium Chloride 151.5 ml @ 0 mls/hr CONT PRN IV SEE I/O RECORD Last administered on 03/27/19at 22:40; Start 03/21/19 at 10:00 Dextrose (Dextrose 50%-Water Syringe) 12.5 gm PRN Q15MIN PRN IV LOW BLOOD SUGAR; Start 03/21/19 at 10:00 Furosemide (Lasix) 80 mg DAILY06 IVP Last administered on 03/28/19at 06:25; Start 03/23/19 at 06:00 Potassium Chloride (KCl Oral Soln) 40 meq 1X ONCE PEG Last administered on 03/22/19at 17:14; Start 03/22/19 at 17:30; Stop 03/22/19 at 17:31; Status DC Metoclopramide HCl (Reglan Vial) 10 mg PRN Q6HRS PRN IV NAUSEA/VOMITING Last administered on 03/24/19at 11:02; Start 03/23/19 at 10:30; Stop 03/24/19 at 11:04; Status DC Dextrose 1,000 ml @ 125 mls/hr Q8H IV Last administered on 03/28/19at 03:12; Start 03/23/19 at 11:15 Potassium Chloride (KCl Oral Soln) 40 meq 1X ONCE PEG Last administered on 03/24/19at 10:32; Start 03/24/19 at 08:30; Stop 03/24/19 at 08:31; Status DC Metoclopramide HCl (Reglan Vial) 10 mg Q8HRS IV Last administered on 03/28/19at 06:24; Start 03/24/19 at 14:00 Insulin Glargine (Lantus) 10 units BID SQ Last administered on 03/26/19at 20:56; Start 03/24/19 at 21:00; Stop 03/27/19 at 09:37; Status DC Potassium Chloride (KCl Oral Soln) 40 meq 1X ONCE PEG Last administered on 03/25/19at 08:50; Start 03/25/19 at 08:15; Stop 03/25/19 at 08:16; Status DC Potassium Chloride (KCl Oral Soln) 40 meq BID PEG Last administered on 03/26/19at 09:15; Start 03/25/19 at 10:00; Stop 03/26/19 at 13:47; Status DC Fentanyl Citrate (Fentanyl 2ml Vial) 25 mcg PRN Q5MIN PRN IV MILD PAIN; Start 03/26/19 at 07:00; Stop 03/27/19 at 06:59; Status DC Fentanyl Citrate (Fentanyl 2ml Vial) 50 mcg PRN Q5MIN PRN IV MODERATE TO SEVERE PAIN; Start 03/26/19 at 07:00; Stop 03/27/19 at 06:59; Status DC Morphine Sulfate (Morphine Sulfate) 1 mg PRN Q10MIN PRN IV SEVERE PAIN; Start 03/26/19 at 07:00; Stop 03/27/19 at 06:59; Status DC Ringer's Solution 1,000 ml @ 30 mls/hr Q24H IV ; Start 03/26/19 at 07:00; Stop 03/26/19 at 18:59; Status DC Lidocaine HCl (Xylocaine-Mpf 1% 2ml Vial) 2 ml PRN 1X PRN ID PRIOR TO IV START; Start 03/26/19 at 07:00; Stop 03/27/19 at 06:59; Status DC Hydromorphone HCl (Dilaudid) 0.5 mg PRN Q10MIN PRN IV SEV PAIN, Second choice; Start 03/26/19 at 07:00; Stop 03/27/19 at 06:59; Status DC Potassium Chloride 30 meq/ Sodium Chloride 1,015 ml @ 75 mls/hr 1X ONCE IV Last administered on 03/25/19at 13:21; Start 03/25/19 at 12:15; Stop 03/26/19 at 01:46; Status DC Rocuronium [place] (Zemuron) 50 mg STK-MED ONCE .ROUTE ; Start 03/26/19 at 11:47; Stop 03/26/19 at 11:48; Status DC Fentanyl Citrate (Fentanyl 2ml Vial) 100 mcg STK-MED ONCE .ROUTE ; Start 9 at 12:31; Stop 03/26/19 at 12:32; Status DC Cefazolin Sodium/ Dextrose 50 ml @ As Directed STK-MED ONCE IV ; Start 03/26/19 at 11:38; Stop 03/26/19 at 12:38; Status DC Rocuronium [place] (Zemuron) 50 mg STK-MED ONCE .ROUTE ; Start 03/26/19 at 12:54; Stop 03/26/19 at 12:55; Status DC Metoprolol Tartrate (Lopressor Vial) 10 mg Q6HRS IVP ; Start 03/26/19 at 18:00; Stop 03/26/19 at 18:16; Status DC Fentanyl Citrate (Fentanyl 2ml Vial) 25 mcg PRN Q5MIN PRN IV MILD PAIN; Start 03/27/19 at 07:00; Stop 03/28/19 at 06:59; Status DC Fentanyl Citrate (Fentanyl 2ml Vial) 50 mcg PRN Q5MIN PRN IV MODERATE TO SEVERE PAIN; Start 03/27/19 at 07:00; Stop 03/28/19 at 06:59; Status DC Morphine Sulfate (Morphine Sulfate) 1 mg PRN Q10MIN PRN IV SEVERE PAIN; Start 03/27/19 at 07:00; Stop 03/28/19 at 06:59; Status DC Ringer's Solution 1,000 ml @ 30 mls/hr Q24H IV ; Start 03/27/19 at 07:00; Stop 03/27/19 at 18:59; Status DC Hydromorphone HCl (Dilaudid) 0.5 mg PRN Q10MIN PRN IV SEV PAIN, Second choice; Start 03/27/19 at 07:00; Stop 03/28/19 at 06:59; Status DC Midazolam HCl (Versed) 2 mg PRN 1X PRN IV PRIOR TO PROCEDURE; Start 03/27/19 at 07:15; Stop 03/27/19 at 18:00; Status DC Fentanyl Citrate (Fentanyl 2ml Vial) 25 mcg PRN Q5MIN PRN IV X 2 DOSES FOR PAIN; Start 03/27/19 at 07:15; Stop 03/27/19 at 18:00; Status DC Fentanyl Citrate (Fentanyl 2ml Vial) 50 mcg PRN Q5MIN PRN IV X 2 DOSES FOR PAIN; Start 03/27/19 at 07:15; Stop 03/27/19 at 18:00; Status DC Ringer's Solution 1,000 ml @ 125 mls/hr Q8H IV ; Start 03/27/19 at 07:06; Stop 03/27/19 at 19:05; Status DC Lidocaine HCl (Xylocaine-Mpf 1% 2ml Vial) 2 ml 1X PRN PRN ID IV START; Start at 07:15; Stop 03/27/19 at 18:00; Status DC Insulin Glargine (Lantus) 30 units BID SQ Last administered on 03/28/19at 08:35; Start 03/27/19 at 21:00 Cefazolin Sodium 50 ml @ 100 mls/hr 1X ONCE IV Last administered on 03/27/19at 11:19; Start 03/27/19 at 11:00; Stop 03/27/19 at 11:29; Status DC Active Scripts Active Reported Proair Hfa Inhaler (Albuterol Sulfate) 8.5 Gm Hfa.aer.ad 1 Puff INH PRN Q6HRS PRN Lantus Solostar (Insulin Glargine,Hum.rec.anlog) 100 Unit/1 Ml Insuln.pen 20 Unit SQ QHS Humalog (Insulin Lispro) 100 Unit/1 Ml Cartridge 6 Unit SQ TIDWMEALS Doxazosin Mesylate 2 Mg Tablet 2 Mg PO DAILY Omeprazole 40 Mg Capsule.dr 40 Mg PO DAILY Amlodipine Besylate 10 Mg Tablet 10 Mg PO DAILY Atorvastatin Calcium 20 Mg Tablet 20 Mg PO DAILY Atenolol 50 Mg Tablet 50 Mg PO DAILY Losartan Potassium 100 Mg Tablet 100 Mg PO DAILY Aspirin 81 Mg Tab.chew 81 Mg PO DAILY Glyburide 5 Mg Tablet 1 Tab PO BID Vitals/I & O Vital Sign - Last 24 Hours 03/27/19 03/27/19 03/27/19 03/27/19 11:00 11:04 11:20 11:25 Pulse 72 75 75 74 Resp 22 16 B/P (MAP) 165/79 (107) Pulse Ox 93 94 94 96 O2 Delivery Ventilator Tracheal Collar Tracheal Collar Ventilator Ventilator 03/27/19 03/27/19 03/27/19 03/27/19 11:32 12:00 12:00 12:06 Temp 97.0 97.0 Pulse 74 68 82 Resp 22 B/P (MAP) 182/82 (115) 182/82 Pulse Ox 94 O2 Delivery Tracheal Collar Ventilator Mechanical Ventilator Ventilator 03/27/19 03/27/19 03/27/19 03/27/19 13:00 14:00 14:27 15:00 Pulse 66 68 68 Resp 24 24 22 B/P (MAP) 142/69 (93) 144/72 (96) 153/77 (102) Pulse Ox 95 95 94 95 O2 Delivery Ventilator Ventilator Ventilator Ventilator 03/27/19 03/27/19 03/27/19 03/27/19 15:38 16:00 16:00 17:00 Temp 97.6 97.6 Pulse 68 68 Resp 22 22 B/P (MAP) 153/82 (105) 164/79 (107) Pulse Ox 93 94 94 O2 Delivery Ventilator Ventilator Mechanical Ventilator Ventilator 03/27/19 03/27/19 03/27/19 03/27/19 17:54 18:00 18:27 19:00 Pulse 63 69 63 Resp 22 22 B/P (MAP) 152/70 (97) 152/70 145/71 (95) Pulse Ox 94 95 95 O2 Delivery Ventilator Ventilator Ventilator 03/27/19 03/27/19 03/27/19 03/27/19 19:52 20:00 20:00 21:00 Temp 98.0 98.0 Pulse 65 64 Resp 22 22 B/P (MAP) 137/68 (91) 143/72 (95) Pulse Ox 93 96 96 O2 Delivery Ventilator Mechanical Ventilator Ventilator Ventilator 03/27/19 03/27/19 03/27/19 03/28/19 22:00 23:00 23:43 00:00 Pulse 66 68 Resp 22 22 B/P (MAP) 148/71 (96) 145/73 (97) Pulse Ox 96 97 93 O2 Delivery Ventilator Ventilator Ventilator Mechanical Ventilator 03/28/19 03/28/19 03/28/19 03/28/19 00:00 00:59 01:00 01:07 Temp 98.5 98.5 Pulse 70 68 63 Resp 22 22 B/P (MAP) 153/73 (99) 152/73 163/82 (109) Pulse Ox 92 92 93 O2 Delivery Ventilator Ventilator Ventilator 03/28/19 03/28/19 03/28/19 03/28/19 02:00 03:00 03:36 04:00 Pulse 68 73 Resp 22 B/P (MAP) 155/81 (105) 163/82 (109) Pulse Ox 92 96 95 O2 Delivery Ventilator Ventilator Ventilator Mechanical Ventilator 03/28/19 03/28/19 03/28/19 03/28/19 04:00 05:00 05:45 06:00 Temp 98.3 98.3 Pulse 71 73 75 Resp 22 22 22 B/P (MAP) 158/74 (102) 154/79 (104) 163/81 (108) Pulse Ox 95 94 95 95 O2 Delivery Ventilator Ventilator Ventilator Ventilator 03/28/19 03/28/19 03/28/19 03/28/19 06:25 07:00 07:55 07:57 Temp 98.0 98.0 Pulse 74 70 Resp 25 B/P (MAP) 163/81 164/87 (112) Pulse Ox 95 96 O2 Delivery Ventilator Ventilator Mechanical Ventilator 03/28/19 03/28/19 03/28/19 03/28/19 08:00 09:02 09:12 10:00 Pulse 71 80 84 Resp 25 26 36 B/P (MAP) 163/88 (113) 167/87 (113) 171/71 (104) Pulse Ox 95 96 96 92 O2 Delivery Ventilator Ventilator Ventilator Tracheal Collar 03/28/19 10:10 O2 Delivery Mechanical Ventilator O2 Flow Rate 40.0 Intake and Output 03/27/19 03/27/19 03/28/19 15:00 23:00 07:00 Intake Total 1204 ml 2038.2 ml Output Total 2300 ml 1780 ml 1800 ml Balance -2300 ml -576 ml 238.2 ml ADITYA HUSTON MD Mar 28, 2019 10:54
--- NOTE | 2019-03-28 10:56 | NUR ---
FACULTY CO-SIGN I have reviewed the documentation by Rolo Fong nursing manager, [facility]: Addendum: 03/28/19 at 1057 by CHUYITA CONNELL RN Amended: Links added.
[2019-03-28 11:28] LABS: % BANDS 4 % (0-9); % LYMPHS 7 % (24-48); % MONOS 5 % (0-10); % SEGS 84 % (35-66); PLT ESTIMATE ADEQUATE (ADEQUATE)
--- NOTE | 2019-03-28 11:28 | PDOC ---
PULMONARY PROGRESS NOTES Subjective SEDATED AC MODE Vitals Vital Signs Date Time Temp Pulse Resp B/P (MAP) Pulse Ox O2 Delivery O2 Flow Rate FiO2 03/28/19 11:02 98.0 90 24 160/81 (107) 94 Tracheal Collar 98.0 03/28/19 10:10 40.0 Comments Pt. is sedated and intubated HEENT: Other (TRACH 03/26) Lungs: Crackles, Other Cardiovascular: S1, S2 Abdomen: Soft, Non-tender, Other (obesity, increased gastric residuals) Extremities: Other (venous stasis and edema left, right BKA) Skin: Warm, Dry Labs Laboratory Tests Test 03/26/19 13:38 03/26/19 14:48 03/26/19 15:55 03/26/19 17:09 Glucose (Fingerstick) 193 mg/dL (70-99) 199 mg/dL (70-99) 208 mg/dL (70-99) 179 mg/dL (70-99) Test 03/26/19 18:12 03/26/19 19:15 03/26/19 20:09 03/26/19 20:54 Glucose (Fingerstick) 148 mg/dL (70-99) 123 mg/dL (70-99) 116 mg/dL (70-99) 100 mg/dL (70-99) Test 03/26/19 22:00 03/26/19 23:08 03/27/19 00:03 03/27/19 01:11 Glucose (Fingerstick) 99 mg/dL (70-99) 99 mg/dL (70-99) 100 mg/dL (70-99) 101 mg/dL (70-99) Test 03/27/19 01:59 03/27/19 03:19 03/27/19 04:05 03/27/19 05:10 Glucose (Fingerstick) 104 mg/dL (70-99) 113 mg/dL (70-99) 108 mg/dL (70-99) 112 mg/dL (70-99) Test 03/27/19 05:45 03/27/19 05:58 03/27/19 07:20 03/27/19 08:00 Sodium Level 145 mmol/L (136-145) Potassium Level 4.2 mmol/L (3.5-5.1) Chloride Level 108 mmol/L (98-107) Carbon Dioxide Level 31 mmol/L (21-32) Anion Gap 6 (6-14) Blood Urea Nitrogen 79 mg/dL (8-26) Creatinine 0.9 mg/dL (0.7-1.3) Estimated GFR (Cockcroft-Gault) 87.3 Glucose Level 126 mg/dL (70-99) Calcium Level 8.1 mg/dL (8.5-10.1) Phosphorus Level 4.8 mg/dL (2.6-4.7) Magnesium Level 2.8 mg/dL (1.8-2.4) Glucose (Fingerstick) 111 mg/dL (70-99) 121 mg/dL (70-99) O2 Saturation 92 % (92-99) Arterial Blood pH 7.48 (7.35-7.45) Arterial Blood pCO2 at Patient Temp 45 mmHg (35-46) Arterial Blood pO2 at Patient Temp 61 mmHg (75-108) Arterial Blood HCO3 33 mmol/L (21-28) Arterial Blood Base Excess 9 mmol/L (-3-3) FiO2 50 Test 03/27/19 08:38 03/27/19 09:59 03/27/19 11:06 03/27/19 12:12 Glucose (Fingerstick) 129 mg/dL (70-99) 131 mg/dL (70-99) 139 mg/dL (70-99) 134 mg/dL (70-99) Test 03/27/19 13:17 03/27/19 14:24 03/27/19 15:27 03/27/19 16:45 Glucose (Fingerstick) 137 mg/dL (70-99) 122 mg/dL (70-99) 128 mg/dL (70-99) 135 mg/dL (70-99) Test 03/27/19 17:48 03/27/19 18:52 03/27/19 19:56 03/27/19 21:01 Glucose (Fingerstick) 133 mg/dL (70-99) 122 mg/dL (70-99) 129 mg/dL (70-99) 148 mg/dL (70-99) Test 03/27/19 22:06 03/27/19 23:12 03/28/19 00:23 03/28/19 01:29 Glucose (Fingerstick) 130 mg/dL (70-99) 164 mg/dL (70-99) 172 mg/dL (70-99) 176 mg/dL (70-99) Test 03/28/19 02:25 03/28/19 03:42 03/28/19 04:47 03/28/19 05:45 Glucose (Fingerstick) 147 mg/dL (70-99) 128 mg/dL (70-99) 134 mg/dL (70-99) White Blood Count 16.4 x10^3/uL (4.0-11.0) Red Blood Count 3.99 x10^6/uL (4.30-5.70) Hemoglobin 11.8 g/dL (13.0-17.5) Hematocrit 37.0 % (39.0-53.0) Mean Corpuscular Volume 93 fL (79-100) Mean Corpuscular Hemoglobin 30 pg (25-35) Mean Corpuscular Hemoglobin Concent 32 g/dL (31-37) Red Cell Distribution Width 14.2 % (11.5-14.5) Platelet Count 271 x10^3/uL (140-400) Neutrophils (%) (Auto) 90 % (31-73) Lymphocytes (%) (Auto) 6 % (24-48) Monocytes (%) (Auto) 4 % (0-9) Eosinophils (%) (Auto) 0 % (0-3) Basophils (%) (Auto) 0 % (0-3) Neutrophils # (Auto) 14.7 x10^3uL (1.8-7.7) Lymphocytes # (Auto) 0.9 x10^3/uL (1.0-4.8) Monocytes # (Auto) 0.7 x10^3/uL (0.0-1.1) Eosinophils # (Auto) 0.0 x10^3/uL (0.0-0.7) Basophils # (Auto) 0.0 x10^3/uL (0.0-0.2) Sodium Level 146 mmol/L (136-145) Potassium Level 4.1 mmol/L (3.5-5.1) Chloride Level 106 mmol/L (98-107) Carbon Dioxide Level 32 mmol/L (21-32) Anion Gap 8 (6-14) Blood Urea Nitrogen 62 mg/dL (8-26) Creatinine 0.9 mg/dL (0.7-1.3) Estimated GFR (Cockcroft-Gault) 87.3 Glucose Level 146 mg/dL (70-99) Calcium Level 8.2 mg/dL (8.5-10.1) Test 03/28/19 05:59 03/28/19 07:20 03/28/19 08:25 03/28/19 08:31 Glucose (Fingerstick) 137 mg/dL (70-99) 133 mg/dL (70-99) 144 mg/dL (70-99) O2 Saturation 93 % (92-99) Arterial Blood pH 7.51 (7.35-7.45) Arterial Blood pCO2 at Patient Temp 39 mmHg (35-46) Arterial Blood pO2 at Patient Temp 66 mmHg (75-108) Arterial Blood HCO3 30 mmol/L (21-28) Arterial Blood Base Excess 7 mmol/L (-3-3) FiO2 50 Test 03/28/19 09:50 03/28/19 10:56 Glucose (Fingerstick) 128 mg/dL (70-99) 137 mg/dL (70-99) Laboratory Tests Test 03/27/19 12:12 03/27/19 13:17 03/27/19 14:24 03/27/19 15:27 Glucose (Fingerstick) 134 mg/dL (70-99) 137 mg/dL (70-99) 122 mg/dL (70-99) 128 mg/dL (70-99) Test 03/27/19 16:45 03/27/19 17:48 03/27/19 18:52 03/27/19 19:56 Glucose (Fingerstick) 135 mg/dL (70-99) 133 mg/dL (70-99) 122 mg/dL (70-99) 129 mg/dL (70-99) Test 03/27/19 21:01 03/27/19 22:06 03/27/19 23:12 03/28/19 00:23 Glucose (Fingerstick) 148 mg/dL (70-99) 130 mg/dL (70-99) 164 mg/dL (70-99) 172 mg/dL (70-99) Test 03/28/19 01:29 03/28/19 02:25 03/28/19 03:42 03/28/19 04:47 Glucose (Fingerstick) 176 mg/dL (70-99) 147 mg/dL (70-99) 128 mg/dL (70-99) 134 mg/dL (70-99) Test 03/28/19 05:45 03/28/19 05:59 03/28/19 07:20 03/28/19 08:25 White Blood Count 16.4 x10^3/uL (4.0-11.0) Red Blood Count 3.99 x10^6/uL (4.30-5.70) Hemoglobin 11.8 g/dL (13.0-17.5) Hematocrit 37.0 % (39.0-53.0) Mean Corpuscular Volume 93 fL (79-100) Mean Corpuscular Hemoglobin 30 pg (25-35) Mean Corpuscular Hemoglobin Concent 32 g/dL (31-37) Red Cell Distribution Width 14.2 % (11.5-14.5) Platelet Count 271 x10^3/uL (140-400) Neutrophils (%) (Auto) 90 % (31-73) Lymphocytes (%) (Auto) 6 % (24-48) Monocytes (%) (Auto) 4 % (0-9) Eosinophils (%) (Auto) 0 % (0-3) Basophils (%) (Auto) 0 % (0-3) Neutrophils # (Auto) 14.7 x10^3uL (1.8-7.7) Lymphocytes # (Auto) 0.9 x10^3/uL (1.0-4.8) Monocytes # (Auto) 0.7 x10^3/uL (0.0-1.1) Eosinophils # (Auto) 0.0 x10^3/uL (0.0-0.7) Basophils # (Auto) 0.0 x10^3/uL (0.0-0.2) Sodium Level 146 mmol/L (136-145) Potassium Level 4.1 mmol/L (3.5-5.1) Chloride Level 106 mmol/L (98-107) Carbon Dioxide Level 32 mmol/L (21-32) Anion Gap 8 (6-14) Blood Urea Nitrogen 62 mg/dL (8-26) Creatinine 0.9 mg/dL (0.7-1.3) Estimated GFR (Cockcroft-Gault) 87.3 Glucose Level 146 mg/dL (70-99) Calcium Level 8.2 mg/dL (8.5-10.1) Glucose (Fingerstick) 137 mg/dL (70-99) 133 mg/dL (70-99) O2 Saturation 93 % (92-99) Arterial Blood pH 7.51 (7.35-7.45) Arterial Blood pCO2 at Patient Temp 39 mmHg (35-46) Arterial Blood pO2 at Patient Temp 66 mmHg (75-108) Arterial Blood HCO3 30 mmol/L (21-28) Arterial Blood Base Excess 7 mmol/L (-3-3) FiO2 50 Test 03/28/19 08:31 03/28/19 09:50 03/28/19 10:56 Glucose (Fingerstick) 144 mg/dL (70-99) 128 mg/dL (70-99) 137 mg/dL (70-99) Medications Active Scripts Medications Dose Route/Sig Max Daily Dose Days Date Category Proair Hfa Inhaler (Albuterol Sulfate) 8.5 Gm Hfa.aer.ad 1 Puff INH PRN Q6HRS PRN 02/27/19 Reported Lantus Solostar (Insulin Glargine,Hum.rec.anlog) 100 Unit/1 Ml Insuln.pen 20 Unit SQ QHS 02/27/19 Reported Humalog (Insulin Lispro) 100 Unit/1 Ml Cartridge 6 Unit SQ TIDWMEALS 02/27/19 Reported Doxazosin Mesylate 2 Mg Tablet 2 Mg PO DAILY 02/27/19 Reported Omeprazole 40 Mg Capsule.dr 40 Mg PO DAILY 02/27/19 Reported Amlodipine Besylate 10 Mg Tablet 10 Mg PO DAILY 02/27/19 Reported Atorvastatin Calcium 20 Mg Tablet 20 Mg PO DAILY 02/27/19 Reported Atenolol 50 Mg Tablet 50 Mg PO DAILY 02/27/19 Reported Losartan Potassium 100 Mg Tablet 100 Mg PO DAILY 02/27/19 Reported Aspirin 81 Mg Tab.chew 81 Mg PO DAILY 02/27/19 Reported Glyburide 5 Mg Tablet 1 Tab PO BID 11/09/16 Reported Active Scripts Medications Dose Route/Sig Max Daily Dose Days Date Category Proair Hfa Inhaler (Albuterol Sulfate) 8.5 Gm Hfa.aer.ad 1 Puff INH PRN Q6HRS PRN 02/27/19 Reported Lantus Solostar (Insulin Glargine,Hum.rec.anlog) 100 Unit/1 Ml Insuln.pen 20 Unit SQ QHS 02/27/19 Reported Humalog (Insulin Lispro) 100 Unit/1 Ml Cartridge 6 Unit SQ TIDWMEALS 02/27/19 Reported Doxazosin Mesylate 2 Mg Tablet 2 Mg PO DAILY 02/27/19 Reported Omeprazole 40 Mg Capsule.dr 40 Mg PO DAILY 02/27/19 Reported Amlodipine Besylate 10 Mg Tablet 10 Mg PO DAILY 02/27/19 Reported Atorvastatin Calcium 20 Mg Tablet 20 Mg PO DAILY 02/27/19 Reported Atenolol 50 Mg Tablet 50 Mg PO DAILY 02/27/19 Reported Losartan Potassium 100 Mg Tablet 100 Mg PO DAILY 02/27/19 Reported Aspirin 81 Mg Tab.chew 81 Mg PO DAILY 02/27/19 Reported Glyburide 5 Mg Tablet 1 Tab PO BID 11/09/16 Reported Active Scripts Medications Dose Route/Sig Max Daily Dose Days Date Category Proair Hfa Inhaler (Albuterol Sulfate) 8.5 Gm Hfa.aer.ad 1 Puff INH PRN Q6HRS PRN 02/27/19 Reported Lantus Solostar (Insulin Glargine,Hum.rec.anlog) 100 Unit/1 Ml Insuln.pen 20 Unit SQ QHS 02/27/19 Reported Humalog (Insulin Lispro) 100 Unit/1 Ml Cartridge 6 Unit SQ TIDWMEALS 02/27/19 Reported Doxazosin Mesylate 2 Mg Tablet 2 Mg PO DAILY 02/27/19 Reported Omeprazole 40 Mg Capsule.dr 40 Mg PO DAILY 02/27/19 Reported Amlodipine Besylate 10 Mg Tablet 10 Mg PO DAILY 02/27/19 Reported Atorvastatin Calcium 20 Mg Tablet 20 Mg PO DAILY 02/27/19 Reported Atenolol 50 Mg Tablet 50 Mg PO DAILY 02/27/19 Reported Losartan Potassium 100 Mg Tablet 100 Mg PO DAILY 02/27/19 Reported Aspirin 81 Mg Tab.chew 81 Mg PO DAILY 02/27/19 Reported Glyburide 5 Mg Tablet 1 Tab PO BID 11/09/16 Reported Impression . Acute hypoxemic /hypercapnic respiratory failure./ ARDS sepsis./ ARDS In-house cardiopulmonary arrest. Normal EF / mild Pulmonary HTN Acute on chronic right-sided heart failure. Morbid obesity. Diabetes uncontrolled Abnormal CXR S/P TRACH 03/26 Plan . SPOKE WITH RN TO KEEP SEDATED FOR NOW WILL CONTINUE SUPPORT NOW 50% 5 PEEP WEAN IN 48 HOURS TRACH NEW CXR REVIEWED DECREASE FIO2 ANTIBX CCT 30 MIN PT. is DNR MAGO NI MD Mar 28, 2019 11:28
--- NOTE | 2019-03-28 13:52 | PDOC ---
Subjective: Subjective: tolerating tube feeds Objective: Vital Signs: Vital Signs Date Time Temp Pulse Resp B/P (MAP) Pulse Ox O2 Delivery O2 Flow Rate FiO2 03/28/19 13:00 90 22 160/88 (112) 95 Ventilator 03/28/19 11:02 98.0 98.0 03/28/19 10:10 40.0 Labs: Laboratory Tests Test 03/27/19 14:24 03/27/19 15:27 03/27/19 16:45 03/27/19 17:48 Glucose (Fingerstick) 122 mg/dL (70-99) 128 mg/dL (70-99) 135 mg/dL (70-99) 133 mg/dL (70-99) Test 03/27/19 18:52 03/27/19 19:56 03/27/19 21:01 03/27/19 22:06 Glucose (Fingerstick) 122 mg/dL (70-99) 129 mg/dL (70-99) 148 mg/dL (70-99) 130 mg/dL (70-99) Test 03/27/19 23:12 03/28/19 00:23 03/28/19 01:29 03/28/19 02:25 Glucose (Fingerstick) 164 mg/dL (70-99) 172 mg/dL (70-99) 176 mg/dL (70-99) 147 mg/dL (70-99) Test 03/28/19 03:42 03/28/19 04:47 03/28/19 05:45 03/28/19 05:59 Glucose (Fingerstick) 128 mg/dL (70-99) 134 mg/dL (70-99) 137 mg/dL (70-99) White Blood Count 16.4 x10^3/uL (4.0-11.0) Red Blood Count 3.99 x10^6/uL (4.30-5.70) Hemoglobin 11.8 g/dL (13.0-17.5) Hematocrit 37.0 % (39.0-53.0) Mean Corpuscular Volume 93 fL (79-100) Mean Corpuscular Hemoglobin 30 pg (25-35) Mean Corpuscular Hemoglobin Concent 32 g/dL (31-37) Red Cell Distribution Width 14.2 % (11.5-14.5) Platelet Count 271 x10^3/uL (140-400) Neutrophils (%) (Auto) 90 % (31-73) Lymphocytes (%) (Auto) 6 % (24-48) Monocytes (%) (Auto) 4 % (0-9) Eosinophils (%) (Auto) 0 % (0-3) Basophils (%) (Auto) 0 % (0-3) Neutrophils # (Auto) 14.7 x10^3uL (1.8-7.7) Lymphocytes # (Auto) 0.9 x10^3/uL (1.0-4.8) Monocytes # (Auto) 0.7 x10^3/uL (0.0-1.1) Eosinophils # (Auto) 0.0 x10^3/uL (0.0-0.7) Basophils # (Auto) 0.0 x10^3/uL (0.0-0.2) Segmented Neutrophils % 84 % (35-66) Band Neutrophils % 4 % (0-9) Lymphocytes % 7 % (24-48) Monocytes % 5 % (0-10) Platelet Estimate Adequate (ADEQUATE) Sodium Level 146 mmol/L (136-145) Potassium Level 4.1 mmol/L (3.5-5.1) Chloride Level 106 mmol/L (98-107) Carbon Dioxide Level 32 mmol/L (21-32) Anion Gap 8 (6-14) Blood Urea Nitrogen 62 mg/dL (8-26) Creatinine 0.9 mg/dL (0.7-1.3) Estimated GFR (Cockcroft-Gault) 87.3 Glucose Level 146 mg/dL (70-99) Calcium Level 8.2 mg/dL (8.5-10.1) Test 03/28/19 07:20 03/28/19 08:25 03/28/19 08:31 03/28/19 09:50 Glucose (Fingerstick) 133 mg/dL (70-99) 144 mg/dL (70-99) 128 mg/dL (70-99) O2 Saturation 93 % (92-99) Arterial Blood pH 7.51 (7.35-7.45) Arterial Blood pCO2 at Patient Temp 39 mmHg (35-46) Arterial Blood pO2 at Patient Temp 66 mmHg (75-108) Arterial Blood HCO3 30 mmol/L (21-28) Arterial Blood Base Excess 7 mmol/L (-3-3) FiO2 50 Test 03/28/19 10:56 03/28/19 12:20 03/28/19 13:26 Glucose (Fingerstick) 137 mg/dL (70-99) 127 mg/dL (70-99) 149 mg/dL (70-99) Physical Exam: Physical Exam: HEENT: trach CV: S1S2 without murmurs, rubs, or gallops RESP: CTAB without wheezing, rhonchi, or crackles ABD: PEG in place Assessment & Plan: Assessment : 1) Dysphagia 2) Malnutrition Plan: COnt PEG BILLY POTTER MD Mar 28, 2019 13:52
[2019-03-28] MEDS: INSULIN REGULAR VIAL 150 UNIT in 0.9 % SODIUM CHLORIDE 150ML 150 ML IV PRN (14:54)
[2019-03-28] MEDS ORDERED: DIGOXIN IV 500 MCG/2 ML AMPUL. IV ONE (16:15)
--- NOTE | 2019-03-28 16:45 | NUR ---
attempted weaning trial this am with decrease in sedation on a trach shield of 70% high flow. pt lasted 20 minutes. stopped with increased rr and hr. pt had episode of afib this afternoon. pt given digoxin .500 mg iv as ordered by dr gloria. pt now in sr with pac's. at controlled rate.
--- NOTE | 2019-03-28 22:58 | NUR ---
Pt. had multiple large, brown, liquid bowel movements, rectal tube place to protect skin, 2200 metoclopramide dose held. Heart rhythm alternating between rate controlled Afib and SR with frequent PACs.
[2019-03-29] VITALS (23 sets, daily range): BP systolic 101–175; BP diastolic 59–83
[2019-03-29] MEDS: PROPOFOL 100 ML IV PRN ×3 (04:51→15:04)
[2019-03-29] MEDS: METOPROLOL TARTRATE 5 MG/5 ML VIAL. IVP SCH ×4 (04:52→23:28)
[2019-03-29] MEDS: IV DEXTROSE 5% 1,000 ML IV SCH (05:02)
--- NOTE | 2019-03-29 05:20 | NUR ---
Pt. rhythm changed to SVT rate 140s, 0600 metoprolol dose administered early at 0500 with HR returning to 90s. Addendum: 03/29/19 at 0526 by Som Rose RN Correction, rhythm was Afib with RVR.
[2019-03-29] MEDS: METOCLOPRAMIDE HCL 10 MG/2 ML VIAL. IV SCH ×3 (06:00→21:36)
[2019-03-29] MEDS: FUROSEMIDE 100 MG/10 ML VIAL. IVP SCH (06:28)
[2019-03-29] MEDS: methylPREDNISolone SOD SUCC PF 125 MG/2 ML VIAL. IV SCH ×3 (06:28→21:36)
[2019-03-29] MEDS: HEPARIN for SUB-Q USE 5,000 UNIT/ML VIAL. SQ SCH ×3 (06:29→21:39)
[2019-03-29 06:49] LABS: CALCIUM 8.2 mg/dL (8.5-10.1); CREATININE 0.8 mg/dL (0.7-1.3); POTASSIUM 4.3 mmol/L (3.5-5.1)
--- NOTE | 2019-03-29 07:14 | RAD ---
PORTABLE CHEST 1V History: Respiratory failure, ARDS Comparison: March 28, 2019 Findings: Single view of the chest is submitted. There is persistent fairly diffuse airspace opacity bilaterally although probably somewhat decreased such as of the mid right hemithorax. Size of right pleural effusion is somewhat less prominent, also suspected small left pleural effusion as seen previously. There is again tracheostomy. There is again right upper extremity PICC with the tip near cavoatrial junction. Heart size is similar. Impression: 1. There is persistent bilateral airspace opacity although somewhat decreased of the mid right hemithorax. There are again pleural effusions bilaterally, somewhat decreased on right. Electronically signed by: Taras Mendoza MD (03/29/2019 7:11 AM) [facility]
[2019-03-29] MEDS: IPRATRPIUM/ALBUTEROL 0.5/2.5MG 3 ML NEBU. NEB SCH ×4 (08:01→19:54)
[2019-03-29 08:16] LABS: BASE EXCESS ABG 6 mmol/L (-3-3); HCO3 ABG 30 mmol/L (21-28); PCO2 ABG 44 mmHg (35-46); PO2 ABG 72 mmHg (75-108); SAT O2 ABG 94 % (92-99)
[2019-03-29] MEDS: FAMOTIDINE 20 MG/2 ML VIAL IVP SCH ×2 (08:30→20:10)
[2019-03-29] MEDS: ASPIRIN CHEWABLE 81 MG TABLET. PO SCH (08:30)
[2019-03-29] MEDS: NYSTATIN 100,000 UNIT/GM TOPICAL CREAM 15GM TUBE. TP SCH ×2 (08:30→20:24)
[2019-03-29] MEDS: INSULIN GLARGINE 300 UNITS/3 ML INSULN.PEN. SQ SCH ×2 (08:33→20:18)
[2019-03-29 08:59] LABS: FIO2 ABG 50
--- NOTE | 2019-03-29 10:05 | PDOC ---
PROGRESS NOTES Chief Complaint Chief Complaint ARDS s/p trach and PEG 03/27 2019 In hospital cardiac arrest with short downtime Possible hypoxic/anoxia brain injury secondary to cardiac arrest Acute respiratory failure secondary to congestive heart failure,ARDS - high peep high O2 requirements Hypernatremia secondary to severe dehydration . on dextrose iVF High residuals on tube feedings no evidence of obstructive pattern on x ray done 03/05/2019 Bilateral general scrotal swelling and tenderness. better Dm2 obesity, extreme, morbid hx RLE BKA RLE stump with chronic wound. - from DM left foot nail onychomycosis Acute renal failure ATN chronic venous insuff left lower leg Bilateral lower lobe consolidation concerning for multifocal pneumonia Right renal hypodensity measuring 2.5 cm Anasarca. bilateral external iliac lymphadenopathy Trace tricuspid regurgitation. Estimated PAP 33-38 mmHg. Diastolic CHF History of Present Illness History of Present Illness status post trach 03/26/19 status post PEG 03/27/19 PEEP of 8, FiO2 50% versed off today, down to propofol and fentanyl I do not think that he has appropriate cognition left This might be a prolonged encephalopathy that could either be hospice candidate or very long time LTAC care Family can be reasonable I'm requesting palliative to re- meet with the family next week. He is showing some encephalopathic/hypoxic movements to me namely upward rolling of the eyeball and nonpurposeful movements Sodium down to 143-was on dextrose IVF along with insulin drip because of hypernatremia despite water flushes for the past 1 week Plan Can DC dextrose IVF and insulin drip if okay with renal Continue water flushes and tube feeds High likelihood of component of hypoxic and encephalopathy, persistent encephalopathy.-He did code in house, but was rather not a prolonged duration Overall prognosis poor, appropriately DNR He will be appropriate for hospice Lasix is down to 80 IV push once a day-there was a thought that he was over diuresed at one point in time Good urine output 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 HEENT: Pupils equal, ETT. OGT LUNGS: Diminished HEART: S1, S2. regular ABDOMEN: Obese, distended, decreased bowel sounds, no grimace or guarding to palpation GENITOURINARY: [place] - less scrotal edema but still present EXTREMITIES: Generalized anasarca. RLE stump with chronic wound. No erythema/fluctuance/warmth. no cyanosis SKIN: Warm to touch. LEGAL TRANSCRIBER: Unresponsive/sedated on vent RUE-PICC (03/09) clean General: Other (intubated sedated) Heart: Regular rate, Normal S1, Normal S2, No murmurs Lungs: Crackles, Other Abdomen: No tenderness Extremities: No clubbing, No cyanosis, Other (1+ EDEMA) Skin: No significant lesion Labs LABS Laboratory Tests Test 03/28/19 10:56 03/28/19 12:20 03/28/19 13:26 03/28/19 14:31 Glucose (Fingerstick) 137 mg/dL (70-99) 127 mg/dL (70-99) 149 mg/dL (70-99) 162 mg/dL (70-99) Test 03/28/19 15:34 03/28/19 17:13 03/28/19 18:11 03/28/19 19:24 Glucose (Fingerstick) 151 mg/dL (70-99) 150 mg/dL (70-99) 126 mg/dL (70-99) 147 mg/dL (70-99) Test 03/28/19 20:27 03/28/19 21:40 03/28/19 22:45 03/28/19 23:45 Glucose (Fingerstick) 140 mg/dL (70-99) 198 mg/dL (70-99) 186 mg/dL (70-99) 173 mg/dL (70-99) Test 03/29/19 00:50 03/29/19 01:50 03/29/19 02:56 03/29/19 04:02 Glucose (Fingerstick) 137 mg/dL (70-99) 134 mg/dL (70-99) 114 mg/dL (70-99) 113 mg/dL (70-99) Test 03/29/19 05:06 03/29/19 06:00 03/29/19 06:14 03/29/19 07:23 Glucose (Fingerstick) 112 mg/dL (70-99) 116 mg/dL (70-99) 117 mg/dL (70-99) Sodium Level 143 mmol/L (136-145) Potassium Level 4.3 mmol/L (3.5-5.1) Chloride Level 105 mmol/L (98-107) Carbon Dioxide Level 33 mmol/L (21-32) Anion Gap 5 (6-14) Blood Urea Nitrogen 59 mg/dL (8-26) Creatinine 0.8 mg/dL (0.7-1.3) Estimated GFR (Cockcroft-Gault) 100.0 Glucose Level 122 mg/dL (70-99) Calcium Level 8.2 mg/dL (8.5-10.1) Test 03/29/19 08:00 03/29/19 08:32 03/29/19 09:47 O2 Saturation 94 % (92-99) Arterial Blood pH 7.45 (7.35-7.45) Arterial Blood pCO2 at Patient Temp 44 mmHg (35-46) Arterial Blood pO2 at Patient Temp 72 mmHg (75-108) Arterial Blood HCO3 30 mmol/L (21-28) Arterial Blood Base Excess 6 mmol/L (-3-3) FiO2 50 Glucose (Fingerstick) 121 mg/dL (70-99) 136 mg/dL (70-99) Review of Systems Review of Systems Encephalopathic Assessment and Plan Assessmemt and Plan Problems Medical Problems: (1) Acute renal failure Status: Acute (2) Edema Status: Acute (3) Shortness of breath Status: Acute Comment Review of Relevant I have reviewed the following items pascual (where applicable) has been applied. Labs Laboratory Tests Test 03/27/19 11:06 03/27/19 12:12 03/27/19 13:17 03/27/19 14:24 Glucose (Fingerstick) 139 mg/dL (70-99) 134 mg/dL (70-99) 137 mg/dL (70-99) 122 mg/dL (70-99) Test 03/27/19 15:27 03/27/19 16:45 03/27/19 17:48 03/27/19 18:52 Glucose (Fingerstick) 128 mg/dL (70-99) 135 mg/dL (70-99) 133 mg/dL (70-99) 122 mg/dL (70-99) Test 03/27/19 19:56 03/27/19 21:01 03/27/19 22:06 03/27/19 23:12 Glucose (Fingerstick) 129 mg/dL (70-99) 148 mg/dL (70-99) 130 mg/dL (70-99) 164 mg/dL (70-99) Test 03/28/19 00:23 03/28/19 01:29 03/28/19 02:25 03/28/19 03:42 Glucose (Fingerstick) 172 mg/dL (70-99) 176 mg/dL (70-99) 147 mg/dL (70-99) 128 mg/dL (70-99) Test 03/28/19 04:47 03/28/19 05:45 03/28/19 05:59 03/28/19 07:20 Glucose (Fingerstick) 134 mg/dL (70-99) 137 mg/dL (70-99) 133 mg/dL (70-99) White Blood Count 16.4 x10^3/uL (4.0-11.0) Red Blood Count 3.99 x10^6/uL (4.30-5.70) Hemoglobin 11.8 g/dL (13.0-17.5) Hematocrit 37.0 % (39.0-53.0) Mean Corpuscular Volume 93 fL (79-100) Mean Corpuscular Hemoglobin 30 pg (25-35) Mean Corpuscular Hemoglobin Concent 32 g/dL (31-37) Red Cell Distribution Width 14.2 % (11.5-14.5) Platelet Count 271 x10^3/uL (140-400) Neutrophils (%) (Auto) 90 % (31-73) Lymphocytes (%) (Auto) 6 % (24-48) Monocytes (%) (Auto) 4 % (0-9) Eosinophils (%) (Auto) 0 % (0-3) Basophils (%) (Auto) 0 % (0-3) Neutrophils # (Auto) 14.7 x10^3uL (1.8-7.7) Lymphocytes # (Auto) 0.9 x10^3/uL (1.0-4.8) Monocytes # (Auto) 0.7 x10^3/uL (0.0-1.1) Eosinophils # (Auto) 0.0 x10^3/uL (0.0-0.7) Basophils # (Auto) 0.0 x10^3/uL (0.0-0.2) Segmented Neutrophils % 84 % (35-66) Band Neutrophils % 4 % (0-9) Lymphocytes % 7 % (24-48) Monocytes % 5 % (0-10) Platelet Estimate Adequate (ADEQUATE) Sodium Level 146 mmol/L (136-145) Potassium Level 4.1 mmol/L (3.5-5.1) Chloride Level 106 mmol/L (98-107) Carbon Dioxide Level 32 mmol/L (21-32) Anion Gap 8 (6-14) Blood Urea Nitrogen 62 mg/dL (8-26) Creatinine 0.9 mg/dL (0.7-1.3) Estimated GFR (Cockcroft-Gault) 87.3 Glucose Level 146 mg/dL (70-99) Calcium Level 8.2 mg/dL (8.5-10.1) Test 03/28/19 08:25 03/28/19 08:31 03/28/19 09:50 03/28/19 10:56 O2 Saturation 93 % (92-99) Arterial Blood pH 7.51 (7.35-7.45) Arterial Blood pCO2 at Patient Temp 39 mmHg (35-46) Arterial Blood pO2 at Patient Temp 66 mmHg (75-108) Arterial Blood HCO3 30 mmol/L (21-28) Arterial Blood Base Excess 7 mmol/L (-3-3) FiO2 50 Glucose (Fingerstick) 144 mg/dL (70-99) 128 mg/dL (70-99) 137 mg/dL (70-99) Test 03/28/19 12:20 03/28/19 13:26 03/28/19 14:31 03/28/19 15:34 Glucose (Fingerstick) 127 mg/dL (70-99) 149 mg/dL (70-99) 162 mg/dL (70-99) 151 mg/dL (70-99) Test 03/28/19 17:13 03/28/19 18:11 03/28/19 19:24 03/28/19 20:27 Glucose (Fingerstick) 150 mg/dL (70-99) 126 mg/dL (70-99) 147 mg/dL (70-99) 140 mg/dL (70-99) Test 03/28/19 21:40 03/28/19 22:45 03/28/19 23:45 03/29/19 00:50 Glucose (Fingerstick) 198 mg/dL (70-99) 186 mg/dL (70-99) 173 mg/dL (70-99) 137 mg/dL (70-99) Test 03/29/19 01:50 03/29/19 02:56 03/29/19 04:02 03/29/19 05:06 Glucose (Fingerstick) 134 mg/dL (70-99) 114 mg/dL (70-99) 113 mg/dL (70-99) 112 mg/dL (70-99) Test 03/29/19 06:00 03/29/19 06:14 03/29/19 07:23 03/29/19 08:00 Sodium Level 143 mmol/L (136-145) Potassium Level 4.3 mmol/L (3.5-5.1) Chloride Level 105 mmol/L (98-107) Carbon Dioxide Level 33 mmol/L (21-32) Anion Gap 5 (6-14) Blood Urea Nitrogen 59 mg/dL (8-26) Creatinine 0.8 mg/dL (0.7-1.3) Estimated GFR (Cockcroft-Gault) 100.0 Glucose Level 122 mg/dL (70-99) Calcium Level 8.2 mg/dL (8.5-10.1) Glucose (Fingerstick) 116 mg/dL (70-99) 117 mg/dL (70-99) O2 Saturation 94 % (92-99) Arterial Blood pH 7.45 (7.35-7.45) Arterial Blood pCO2 at Patient Temp 44 mmHg (35-46) Arterial Blood pO2 at Patient Temp 72 mmHg (75-108) Arterial Blood HCO3 30 mmol/L (21-28) Arterial Blood Base Excess 6 mmol/L (-3-3) FiO2 50 Test 03/29/19 08:32 03/29/19 09:47 Glucose (Fingerstick) 121 mg/dL (70-99) 136 mg/dL (70-99) Laboratory Tests Test 03/28/19 10:56 03/28/19 12:20 03/28/19 13:26 03/28/19 14:31 Glucose (Fingerstick) 137 mg/dL (70-99) 127 mg/dL (70-99) 149 mg/dL (70-99) 162 mg/dL (70-99) Test 03/28/19 15:34 03/28/19 17:13 03/28/19 18:11 03/28/19 19:24 Glucose (Fingerstick) 151 mg/dL (70-99) 150 mg/dL (70-99) 126 mg/dL (70-99) 147 mg/dL (70-99) Test 03/28/19 20:27 03/28/19 21:40 03/28/19 22:45 03/28/19 23:45 Glucose (Fingerstick) 140 mg/dL (70-99) 198 mg/dL (70-99) 186 mg/dL (70-99) 173 mg/dL (70-99) Test 03/29/19 00:50 03/29/19 01:50 03/29/19 02:56 03/29/19 04:02 Glucose (Fingerstick) 137 mg/dL (70-99) 134 mg/dL (70-99) 114 mg/dL (70-99) 113 mg/dL (70-99) Test 03/29/19 05:06 03/29/19 06:00 03/29/19 06:14 03/29/19 07:23 Glucose (Fingerstick) 112 mg/dL (70-99) 116 mg/dL (70-99) 117 mg/dL (70-99) Sodium Level 143 mmol/L (136-145) Potassium Level 4.3 mmol/L (3.5-5.1) Chloride Level 105 mmol/L (98-107) Carbon Dioxide Level 33 mmol/L (21-32) Anion Gap 5 (6-14) Blood Urea Nitrogen 59 mg/dL (8-26) Creatinine 0.8 mg/dL (0.7-1.3) Estimated GFR (Cockcroft-Gault) 100.0 Glucose Level 122 mg/dL (70-99) Calcium Level 8.2 mg/dL (8.5-10.1) Test 03/29/19 08:00 03/29/19 08:32 03/29/19 09:47 O2 Saturation 94 % (92-99) Arterial Blood pH 7.45 (7.35-7.45) Arterial Blood pCO2 at Patient Temp 44 mmHg (35-46) Arterial Blood pO2 at Patient Temp 72 mmHg (75-108) Arterial Blood HCO3 30 mmol/L (21-28) Arterial Blood Base Excess 6 mmol/L (-3-3) FiO2 50 Glucose (Fingerstick) 121 mg/dL (70-99) 136 mg/dL (70-99) Microbiology 03/05/19 Blood Culture - Final, Complete NO GROWTH AFTER 5 DAYS 03/08/19 - Final, Complete 03/08/19 - Final, Complete 03/08/19 - Final, Complete 03/08/19 Gram Stain Evaluation - Final, Complete 03/08/19 Sputum Culture - Final, Complete 03/08/19 Sputum Result 1 - Final, Complete 03/02/19 Urine Culture - Final, Complete 03/02/19 Urine Culture Result 1 (LUCIO) - Final, Complete 03/09/19 Aerobic Culture - Final, Complete 03/09/19 Aerobic Culture Result 1 (LUCIO) - Final, Complete 03/09/19 Gram Stain - Final, Complete 03/09/19 Gram Stain Result 1 (LUCIO) - Final, Complete 03/09/19 Gram Stain Result 2 (LUCIO) - Final, Complete Medications Current Medications Ondansetron HCl (Zofran) 4 mg PRN Q8HRS PRN IV NAUSEA/VOMITING; Start 02/27/19 at 16:45; Stop 02/28/19 at 16:44; Status DC Morphine Sulfate (Morphine Sulfate) 2 mg PRN Q2HR PRN IV PAIN; Start 02/27/19 at 16:45; Stop 02/28/19 at 16:44; Status DC Acetaminophen (Tylenol) 650 mg PRN Q4HRS PRN PO FEVER Last administered on 02/27/19at 21:06; Start 02/27/19 at 16:45; Stop 02/28/19 at 16:44; Status DC Dextrose (Dextrose 50%-Water Syringe) 12.5 gm PRN Q15MIN PRN IV SEE COMMENTS; Start 02/27/19 at 16:45; Stop 03/10/19 at 13:48; Status DC Heparin Sodium (Porcine) (Heparin Sodium) 5,000 unit Q8HRS SQ Last administered on 03/29/19at 06:29; Start 02/27/19 at 17:00 Lorazepam (Ativan) 1 mg PRN Q8HRS PRN IV ANXIETY / AGITATION Last administered on 03/08/19at 03:37; Start 02/28/19 at 02:45 Etomidate (Amidate) 20 mg STK-MED ONCE IV ; Start 02/28/19 at 06:59; Stop 02/28/19 at 07:00; Status DC Rocuronium [place] (Zemuron) 50 mg STK-MED ONCE .ROUTE ; Start 02/28/19 at 07:00; Stop 02/28/19 at 09:42; Status DC Dopamine HCl/ Dextrose 250 ml @ 12.266 mls/ hr CONT PRN IV SEE I/O RECORD Last administered on 02/28/19at 08:06; Start 02/28/19 at 07:15; Stop 03/17/19 at 15:50; Status DC Fentanyl Citrate 30 ml @ 0 mls/hr CONT PRN IV SEE PROTOCOL; Start 02/28/19 at 07:15; Stop 02/28/19 at 07:59; Status DC Propofol 100 ml @ 0 mls/hr CONT PRN IV SEE PROTOCOL; Start 02/28/19 at 07:15; Stop 02/28/19 at 07:59; Status DC Fentanyl Citrate (Fentanyl 2ml Vial) 25 mcg PRN Q1HR PRN IV SEE COMMENTS; Start 02/28/19 at 07:15; Stop 02/28/19 at 07:59; Status DC Fentanyl Citrate (Fentanyl 2ml Vial) 50 mcg PRN Q1HR PRN IV SEE COMMENTS; Start 02/28/19 at 07:15; Stop 02/28/19 at 07:59; Status DC Midazolam HCl 100 ml @ 0 mls/hr CONT PRN IV SEE PROTOCOL Last administered on 03/27/19at 11:59; Start 02/28/19 at 07:15 Sodium Chloride 1,000 ml @ 1,000 mls/hr Q1H IV Last administered on 02/28/19at 07:32; Start 02/28/19 at 07:32; Stop 02/28/19 at 10:09; Status DC Fentanyl Citrate (Fentanyl 2ml Vial) 25 mcg PRN Q30MIN PRN IV see comments; Start 02/28/19 at 07:45; Stop 02/28/19 at 09:42; Status DC Lorazepam (Ativan) 1 mg PRN Q30MIN PRN IV SEDATION; Start 02/28/19 at 07:45; Stop 02/28/19 at 09:42; Status DC Fentanyl Citrate 30 ml @ 2.5 mls/hr CONT PRN PRN IV SEE I/O RECORD Last admi nistered on 03/05/19at 03:44; Start 02/28/19 at 07:45; Stop 03/05/19 at 04:40; Status DC Propofol 100 ml @ 0 mls/hr CONT PRN IV SEE I/O RECORD Last administered on 03/29/19at 08:38; Start 02/28/19 at 07:45 Vecuronium [place] (Norcuron Bolus) 10 mg PRN Q30MIN PRN IV SHIVERING; Start 02/28/19 at 07:45; Stop 02/28/19 at 09:42; Status DC Meperidine HCl (Demerol) 12.5 mg PRN Q30MIN PRN IV SHIVERING; Start 02/28/19 at 07:45; Stop 02/28/19 at 09:42; Status DC Multi-Ingred Cream/Lotion/Oil/ Oint (Artificial Tears Eye Ointment) 1 jennifer PRN Q6HRS PRN OU 0.5 INCH FOR DRY EYE; Start 02/28/19 at 07:45; Stop 02/28/19 at 09:42; Status DC Famotidine (Pepcid Vial) 20 mg BID IVP Last administered on 02/28/19at 11:03; Start 02/28/19 at 09:00; Stop 02/28/19 at 14:25; Status DC Aspirin (Aspirin) 300 mg DAILY TX ; Start 02/28/19 at 09:00; Stop 02/28/19 at 09:42; Status DC Sodium Chloride (Normal Saline Flush) 3 ml QSHIFT PRN IV AFTER MEDS AND BLOOD DRAWS; Start 02/28/19 at 07:45 Acetaminophen (Tylenol) 650 mg Q6HRS NG ; Start 02/28/19 at 12:00; Stop 02/28/19 at 12:00; Status DC Acetaminophen (Tylenol Supp) 650 mg PRN Q6HRS PRN TX MILD PAIN / TEMP; Start 03/01/19 at 07:45; Stop 03/01/19 at 07:45; Status DC Acetaminophen (Tylenol) 650 mg PRN Q6HRS PRN NG MILD PAIN / TEMP; Start 03/01/19 at 07:45; Stop 03/01/19 at 07:45; Status DC Info (Icu Electrolyte Protocol) 1 ea DAILY PRN MC PER PROTOCOL; Start 03/02/19 at 07:45; Stop 03/02/19 at 07:45; Status DC Furosemide (Lasix) 60 mg 1X ONCE IVP Last administered on 02/28/19at 08:30; Start 02/28/19 at 08:30; Stop 02/28/19 at 08:31; Status DC Ceftriaxone Sodium (Rocephin) 1 gm Q24H IVP Last administered on 02/28/19at 11:03; Start 02/28/19 at 11:00; Stop 02/28/19 at 11:18; Status DC Calcium Chloride 1000 mg/Dextrose 60 ml @ 120 mls/hr 1X ONCE IV Last administered on 02/28/19at 11:03; Start 02/28/19 at 10:30; Stop 02/28/19 at 10:59; Status DC Meropenem 500 mg/ Sodium Chloride 50 ml @ 100 mls/hr Q8HRS IV Last administered on 03/03/19at 06:24; Start 02/28/19 at 14:00; Stop 03/03/19 at 07:04; Status DC Linezolid/Dextrose 300 ml @ 300 mls/hr Q12HR IV Last administered on 03/03/19at 20:00; Start 02/28/19 at 11:30; Stop 03/04/19 at 08:55; Status DC Micafungin Sodium 100 mg/Dextrose 100 ml @ 100 mls/hr Q24H IV Last administered on 03/04/19at 15:53; Start 02/28/19 at 12:00; Stop 03/05/19 at 06:47; Status DC Furosemide (Lasix) 40 mg [id number] IVP Last administered on 03/02/19at 14:06; Start 02/28/19 at 14:00; Stop 03/02/19 at 17:02; Status DC Famotidine (Pepcid Vial) 20 mg QHS IVP Last administered on 03/01/19at 21:24; Start 02/28/19 at 21:00; Stop 03/02/19 at 10:07; Status DC Albuterol/ Ipratropium (Duoneb) 3 ml RTQID NEB Last administered on 03/29/19 08:01; Start 02/28/19 at 16:00 Haloperidol Lactate (Haldol Inj) 5 mg PRN Q6HRS PRN IVP AGITATION 2ND CHOICE Last administered on 03/27/19at 18:28; Start 02/28/19 at 15:15 Vecuronium [place] (Norcuron Bolus) 8 mg PRN Q4HRS PRN IV MUSCLE SPASMS Last administered on 03/12/19at 23:48; Start 02/28/19 at 15:15 Perflutren Protein Type A Microsphe (Optison) 0.66 mg PRN 1X PRN IV SEE COMMENTS; Start 03/01/19 at 10:00; Stop 03/02/19 at 09:59; Status DC Digoxin (Lanoxin) 125 mcg 1X STAT IV ; Start 03/01/19 at 15:34; Stop 03/01/19 at 16:00; Status DC Sodium Chloride 500 ml @ 500 mls/hr 1X ONCE IV Last administered on 03/01/19at 18:46; Start 03/01/19 at 18:45; Stop 03/01/19 at 19:44; Status DC Famotidine (Pepcid Vial) 20 mg Q12HR IVP Last administered on 03/29/19 08:30; Start 03/02/19 at 21:00 Furosemide (Lasix) 40 mg DAILY IVP Last administered on 03/04/19at 09:52; Start 03/03/19 at 09:00; Stop 03/04/19 at 12:13; Status DC Acetaminophen (Tylenol Supp) 650 mg PRN Q6HRS PRN TX MILD PAIN / TEMP Last administered on 03/03/19at 17:39; Start 03/02/19 at 17:15 Meropenem 500 mg/ Sodium Chloride 50 ml @ 100 mls/hr Q6HRS IV Last administered on 03/05/19at 05:33; Start 03/03/19 at 12:00; Stop 03/05/19 at 06:47; Status DC Albumin Human 100 ml @ 100 mls/hr 1X ONCE IV Last administered on 03/03/19 08:52; Start 03/03/19 at 08:30; Stop 03/03/19 at 09:29; Status DC Atropine Sulfate (ATROPINE 0.5mg SYRINGE) 2 mg STK-MED ONCE .ROUTE ; Start 02/27/19 at 16:21; Stop 03/03/19 at 16:22; Status DC Dopamine HCl/ Dextrose (DOPamine 400MG/ 250ML PREMIX) 400 mg STK-MED ONCE IV ; Start 02/27/19 at 16:21; Stop 03/03/19 at 16:22; Status DC Furosemide (Lasix) 40 mg 1X ONCE IVP Last administered on 03/03/19 18:46; Start 03/03/19 at 18:45; Stop 03/03/19 at 18:46; Status DC Lorazepam 100 mg/ Sodium Chloride 100 ml @ 0 mls/hr CONT PRN IV SEE PROTOCOL Last administered on 03/03/19 22:18; Start 03/03/19 at 22:00; Stop 03/17/19 at 15:39; Status DC Acetaminophen (Tylenol) 650 mg PRN Q6HRS PRN PEG MILD PAIN / TEMP Last adminis tered on 03/10/19 20:48; Start 03/04/19 at 11:45 Furosemide (Lasix) 40 mg [id number] IVP Last administered on 03/06/19 08:38; Start 03/04/19 at 14:00; Stop 03/06/19 at 13:30; Status DC Fentanyl Citrate 30 ml @ 0 mls/hr CONT PRN IV SEE PROTOCOL Last administered on 03/28/19at 23:47; Start 03/05/19 at 04:45 Cefepime HCl (Maxipime) 2 gm Q8HRS IVP Last administered on 03/10/19 05:43; Start 03/05/19 at 06:45; Stop 03/10/19 at 08:29; Status DC Metronidazole 100 ml @ 100 mls/hr Q8HRS IV Last administered on 03/10/19 05 :45; Start 03/05/19 at 06:45; Stop 03/10/19 at 08:29; Status DC Linezolid/Dextrose 300 ml @ 300 mls/hr Q12HR IV Last administered on 03/05/19 21:24; Start 03/05/19 at 09:00; Stop 03/06/19 at 06:42; Status DC Metoclopramide HCl (Reglan Vial) 10 mg QIDACHS IV Last administered on 03/06/19 20:43; Start 03/05/19 at 11:30; Stop 03/07/19 at 07:37; Status DC Insulin Glargine (Lantus) 12 units BID SQ Last administered on 03/09/19 09:29; Start 03/05/19 at 09:00; Stop 03/09/19 at 17:11; Status DC Digoxin (Lanoxin) 500 mcg 1X ONCE IV Last administered on 03/06/19 00:48; Start 03/06/19 at 00:45; Stop 03/06/19 at 00:46; Status DC Metoprolol Tartrate (Lopressor Vial) 5 mg 1X ONCE IVP Last administered on 03/06/19 00:53; Start 03/06/19 at 00:45; Stop 03/06/19 at 00:46; Status DC Sodium Chloride 500 ml @ 500 mls/hr 1X ONCE IV Last administered on 03/06/19 00:49; Start 03/06/19 at 00:45; Stop 03/06/19 at 01:44; Status DC Nystatin (Mycostatin) 1 jennifer BID TP Last administered on 03/29/19 08:30; Start 03/06/19 at 09:00 Sodium Cl/Sod Bicarb/Potass Cl/ PEG (Golytely) 2,000 ml 1X ONCE PO Last administered on 03/06/19 09:33; Start 03/06/19 at 08:00; Stop 03/06/19 at 08:01; Status DC Furosemide (Lasix) 40 mg DAILY08 IVP Last administered on 03/09/19 09:27; Start 03/07/19 at 08:00; Stop 03/09/19 at 12:45; Status DC Metoprolol Tartrate (Lopressor Vial) 10 mg 1X ONCE IVP Last administered on 03/06/19 16:08; Start 03/06/19 at 15:15; Stop 03/06/19 at 15:16; Status DC Metoprolol Tartrate (Lopressor Vial) 5 mg Q6HRS IVP Last administered on 03/07/19 17:03; Start 03/06/19 at 18:00; Stop 03/07/19 at 18:27; Status DC Aspirin (Children'S Aspirin) 81 mg 1X ONCE PO Last administered on 03/06/19 18:18; Start 03/06/19 at 17:00; Stop 03/06/19 at 17:01; Status DC Aspirin (Children'S Aspirin) 81 mg DAILYWBKFT PO Last administered on 03/29/19at 08:30; Start 03/07/19 at 08:00 Labetalol HCl (Normodyne Iv Push) 20 mg PRN Q2HR PRN IVP HYPERTENSION, SEE COMMENTS Last administered on 03/06/19 21:29; Start 03/06/19 at 17:15 Digoxin (Lanoxin) 250 mcg 1X ONCE IV Last administered on 03/06/19 22:00; Start 03/06/19 at 22:00; Stop 03/06/19 at 22:01; Status DC Diltiazem HCl 125 mg/Dextrose 125 ml @ 5 mls/hr CONT PRN IV SEE I/O RECORD Last administered on 03/12/19at 08:20; Start 03/06/19 at 23:00; Stop 03/12/19 at 11:03; Status DC Metoclopramide HCl (Reglan Vial) 10 mg Q6HRS IV ; Start 03/07/19 at 08:00; Stop 03/08/19 at 07:51; Status DC Metoprolol Tartrate (Lopressor Vial) 5 mg Q6HRS IVP Last administered on 03/29/19at 04:52; Start 03/08/19 at 12:00 Furosemide (Lasix) 40 mg 1X ONCE IVP Last administered on 03/08/19at 21:21; Start 03/08/19 at 21:00; Stop 03/08/19 at 21:01; Status DC Furosemide (Lasix) 20 mg DAILY08 IVP ; Start 03/10/19 at 08:00; Stop 03/10/19 at 08:00; Status DC Furosemide (Lasix) 20 mg DAILY08 IVP Last administered on 03/14/19at 07:41; Start 03/10/19 at 08:00; Stop 03/15/19 at 07:32; Status DC Insulin Glargine (Lantus) 16 units BID SQ Last administered on 03/12/19 00:09; Start 03/09/19 at 21:00; Stop 03/12/19 at 07:18; Status DC Insulin Human Lispro (HumaLOG) 0-9 UNITS Q6HRS SQ Last administered on 03/12/19at 05:45; Start 03/09/19 at 18:00; Stop 03/12/19 at 07:18; Status DC Dextrose (Dextrose 50%-Water Syringe) 12.5 gm PRN Q15MIN PRN IV SEE COMMENTS; Start 03/09/19 at 17:15; Stop 03/21/19 at 10:07; Status DC Cefepime HCl (Maxipime) 2 gm Q12HR IVP Last administered on 03/21/19at 08:26; Start 03/10/19 at 21:00; Stop 03/21/19 at 12:48; Status DC Insulin Human Lispro (HumaLOG) 15 units 1X ONCE SQ Last administered on 03/11/19at 00:14; Start 03/11/19 at 00:00; Stop 03/11/19 at 00:01; Status DC Insulin Glargine (Lantus) 20 units BID SQ Last administered on 03/17/19at 08:32; Start 03/12/19 at 09:00; Stop 03/17/19 at 10:46; Status DC Insulin Human Lispro (HumaLOG) 0-9 UNITS Q6HRS SQ Last administered on 03/03 06:35; Start 03/12/19 at 12:00; Stop 03/21/19 at 10:00; Status DC Diltiazem HCl (Cardizem) 30 mg Q6HRS PO Last administered on 03/26/19at 05:46; Start 03/12/19 at 12:00; Stop 03/26/19 at 13:47; Status DC Furosemide (Lasix) 20 mg 1X ONCE IVP Last administered on 03/13/19at 11:04; Start 03/13/19 at 10:30; Stop 03/13/19 at 10:31; Status DC Furosemide (Lasix) 20 mg 1X ONCE IVP Last administered on 03/14/19at 07:40; Start 03/14/19 at 07:15; Stop 03/14/19 at 14:05; Status DC Furosemide (Lasix) 40 mg Q8HRS IVP Last administered on 03/17/19at 05:49; Start 03/14/19 at 22:00; Stop 03/17/19 at 10:58; Status DC Albuterol Sulfate (Ventolin Neb Soln) 2.5 mg 1X ONCE NEB Last administered on 03/16/19at 04:00; Start 03/16/19 at 04:00; Stop 03/16/19 at 04:01; Status DC Methylprednisolone Sodium Succinate (SOLU-Medrol 40MG VIAL) 80 mg 1X ONCE IV Last administered on 03/16/19at 04:17; Start 03/16/19 at 04:30; Stop 03/16/19 at 04:31; Status DC Furosemide (Lasix) 20 mg 1X ONCE IVP Last administered on 03/16/19at 04:17; Start 03/16/19 at 04:30; Stop 03/16/19 at 04:31; Status DC Insulin Glargine (Lantus) 25 units BID SQ Last administered on 03/21/19at 08:55; Start 03/17/19 at 21:00; Stop 03/21/19 at 10:00; Status DC Insulin Human Lispro (HumaLOG) 10 units Q6HRS SQ ; Start 03/17/19 at 12:00; Stop 03/17/19 at 13:32; Status DC Furosemide (Lasix) 40 mg QD IVP Last administered on 03/18/19at 05:55; Start 03/18/19 at 06:00; Stop 03/18/19 at 10:54; Status DC Insulin Human Lispro (HumaLOG) 3 units Q6HRS SQ Last administered on 03/19/19at 06:12; Start 03/17/19 at 18:00; Stop 03/19/19 at 08:28; Status DC Azithromycin 250 mg/Sodium Chloride 250 ml @ 250 mls/hr Q24H IV Last administered on 03/23/19at 08:13; Start 03/18/19 at 08:00; Stop 03/23/19 at 16:23; Status DC Alteplase, Recombinant (Cathflo For Central Catheter Clearance) 1 mg 1X ONCE INT CAT Last administered on 03/18/19at 09:21; Start 03/18/19 at 07:30; Stop 03/18/19 at 07:31; Status DC Alteplase, Recombinant (Cathflo For Central Catheter Clearance) 1 mg 1X ONCE INT CAT Last administered on 03/18/19at 11:04; Start 03/18/19 at 07:30; Stop 03/18/19 at 07:31; Status DC Alteplase, Recombinant (Cathflo For Central Catheter Clearance) 1 mg 1X ONCE INT CAT Last administered on 03/18/19at 13:26; Start 03/18/19 at 07:30; Stop 03/18/19 at 07:31; Status DC Furosemide (Lasix) 60 mg 1X ONCE IVP Last administered on 03/18/19at 11:04; Start 03/18/19 at 10:54; Stop 03/18/19 at 10:55; Status DC Furosemide (Lasix) 40 mg Q8HRS IVP ; Start 03/18/19 at 14:00; Stop 03/18/19 at 17:53; Status DC Digoxin (Lanoxin) 250 mcg 1X ONCE IV Last administered on 03/18/19at 15:48; Start 03/18/19 at 15:30; Stop 03/18/19 at 15:33; Status DC Furosemide (Lasix) 40 mg Q8HRS IVP Last administered on 03/20/19at 05:42; Start 03/18/19 at 20:00; Stop 03/20/19 at 08:48; Status DC Digoxin (Lanoxin) 500 mcg 1X ONCE IV Last administered on 03/18/19at 19:35; Start 03/18/19 at 20:00; Stop 03/18/19 at 20:01; Status DC Insulin Human Lispro (HumaLOG) 6 units Q6HRS SQ Last administered on 03/20/19at 05:45; Start 03/19/19 at 12:00; Stop 03/20/19 at 08:48; Status DC Furosemide (Lasix) 80 mg Q8HRS IVP Last administered on 03/22/19at 12:43; Start 03/20/19 at 14:00; Stop 03/22/19 at 17:00; Status DC Insulin Human Lispro (HumaLOG) 9 units Q6HRS SQ Last administered on 03/21/19at 06:36; Start 03/20/19 at 12:00; Stop 03/21/19 at 10:00; Status DC Methylprednisolone Sodium Succinate (SOLU-Medrol 125MG VIAL) 80 mg Q8HRS IV Last administered on 03/29/19at 06:28; Start 03/20/19 at 11:00 Alteplase, Recombinant (Cathflo For Central Catheter Clearance) 1 mg 1X ONCE INT CAT Last administered on 03/20/19at 20:23; Start 03/20/19 at 20:00; Stop 03/20/19 at 20:09; Status DC Alteplase, Recombinant (Cathflo For Central Catheter Clearance) 1 mg 1X ONCE INT CAT Last administered on 03/20/19at 20:23; Start 03/20/19 at 20:00; Stop 03/20/19 at 20:09; Status DC Alteplase, Recombinant (Cathflo For Central Catheter Clearance) 1 mg 1X ONCE INT CAT Last administered on 03/20/19at 20:23; Start 03/20/19 at 20:00; Stop 03/20/19 at 20:09; Status DC Insulin Human Regular 150 unit/ Sodium Chloride 151.5 ml @ 0 mls/hr CONT PRN IV SEE I/O RECORD Last administered on 03/28/19at 14:54; Start 03/21/19 at 10:00; Stop 03/29/19 at 08:46; Status DC Dextrose (Dextrose 50%-Water Syringe) 12.5 gm PRN Q15MIN PRN IV LOW BLOOD SUGAR; Start 03/21/19 at 10:00 Furosemide (Lasix) 80 mg DAILY06 IVP Last administered on 03/29/19at 06:28; Start 03/23/19 at 06:00 Potassium Chloride (KCl Oral Soln) 40 meq 1X ONCE PEG Last administered on 03/22/19at 17:14; Start 03/22/19 at 17:30; Stop 03/22/19 at 17:31; Status DC Metoclopramide HCl (Reglan Vial) 10 mg PRN Q6HRS PRN IV NAUSEA/VOMITING Last administered on 03/24/19at 11:02; Start 03/23/19 at 10:30; Stop 03/24/19 at 11:04; Status DC Dextrose 1,000 ml @ 125 mls/hr Q8H IV Last administered on 03/29/19at 05:02; Start 03/23/19 at 11:15; Stop 03/29/19 at 08:46; Status DC Potassium Chloride (KCl Oral Soln) 40 meq 1X ONCE PEG Last administered on 03/24/19at 10:32; Start 03/24/19 at 08:30; Stop 03/24/19 at 08:31; Status DC Metoclopramide HCl (Reglan Vial) 10 mg Q8HRS IV Last administered on 03/28/19at 13:33; Start 03/24/19 at 14:00 Insulin Glargine (Lantus) 10 units BID SQ Last administered on 03/26/19at 20:56; Start 03/24/19 at 21:00; Stop 03/27/19 at 09:37; Status DC Potassium Chloride (KCl Oral Soln) 40 meq 1X ONCE PEG Last administered on 03/25/19at 08:50; Start 03/25/19 at 08:15; Stop 03/25/19 at 08:16; Status DC Potassium Chloride (KCl Oral Soln) 40 meq BID PEG Last administered on 03/26/19at 09:15; Start 03/25/19 at 10:00; Stop 03/26/19 at 13:47; Status DC Fentanyl Citrate (Fentanyl 2ml Vial) 25 mcg PRN Q5MIN PRN IV MILD PAIN; Start 03/26/19 at 07:00; Stop 03/27/19 at 06:59; Status DC Fentanyl Citrate (Fentanyl 2ml Vial) 50 mcg PRN Q5MIN PRN IV MODERATE TO SEVERE PAIN; Start 03/26/19 at 07:00; Stop 03/27/19 at 06:59; Status DC Morphine Sulfate (Morphine Sulfate) 1 mg PRN Q10MIN PRN IV SEVERE PAIN; Start 03/26/19 at 07:00; Stop 03/27/19 at 06:59; Status DC Ringer's Solution 1,000 ml @ 30 mls/hr Q24H IV ; Start 03/26/19 at 07:00; Stop 03/26/19 at 18:59; Status DC Lidocaine HCl (Xylocaine-Mpf 1% 2ml Vial) 2 ml PRN 1X PRN ID PRIOR TO IV START; Start 03/26/19 at 07:00; Stop 03/27/19 at 06:59; Status DC Hydromorphone HCl (Dilaudid) 0.5 mg PRN Q10MIN PRN IV SEV PAIN, Second choice; Start 03/26/19 at 07:00; Stop 03/27/19 at 06:59; Status DC Potassium Chloride 30 meq/ Sodium Chloride 1,015 ml @ 75 mls/hr 1X ONCE IV Last administered on 03/25/19at 13:21; Start 03/25/19 at 12:15; Stop 03/26/19 at 01:46; Status DC Rocuronium [place] (Zemuron) 50 mg STK-MED ONCE .ROUTE ; Start 03/26/19 at 11:47; Stop 03/26/19 at 11:48; Status DC Fentanyl Citrate (Fentanyl 2ml Vial) 100 mcg STK-MED ONCE .ROUTE ; Start 03/26/19 at 12:31; Stop 03/26/19 at 12:32; Status DC Cefazolin Sodium/ Dextrose 50 ml @ As Directed STK-MED ONCE IV ; Start 03/26/19 at 11:38; Stop 03/26/19 at 12:38; Status DC Rocuronium [place] (Zemuron) 50 mg STK-MED ONCE .ROUTE ; Start 03/26/19 at 12:54; Stop 03/26/19 at 12:55; Status DC Metoprolol Tartrate (Lopressor Vial) 10 mg Q6HRS IVP ; Start 03/26/19 at 18:00; Stop 03/26/19 at 18:16; Status DC Fentanyl Citrate (Fentanyl 2ml Vial) 25 mcg PRN Q5MIN PRN IV MILD PAIN; Start 03/27/19 at 07:00; Stop 03/28/19 at 06:59; Status DC Fentanyl Citrate (Fentanyl 2ml Vial) 50 mcg PRN Q5MIN PRN IV MODERATE TO SEVERE PAIN; Start 03/27/19 at 07:00; Stop 03/28/19 at 06:59; Status DC Morphine Sulfate (Morphine Sulfate) 1 mg PRN Q10MIN PRN IV SEVERE PAIN; Start 03/27/19 at 07:00; Stop 03/28/19 at 06:59; Status DC Ringer's Solution 1,000 ml @ 30 mls/hr Q24H IV ; Start 03/27/19 at 07:00; Stop 03/27/19 at 18:59; Status DC Hydromorphone HCl (Dilaudid) 0.5 mg PRN Q10MIN PRN IV SEV PAIN, Second choice; Start 03/27/19 at 07:00; Stop 03/28/19 at 06:59; Status DC Midazolam HCl (Versed) 2 mg PRN 1X PRN IV PRIOR TO PROCEDURE; Start 03/27/19 at 07:15; Stop 03/27/19 at 18:00; Status DC Fentanyl Citrate (Fentanyl 2ml Vial) 25 mcg PRN Q5MIN PRN IV X 2 DOSES FOR PAIN; Start 03/27/19 at 07:15; Stop 03/27/19 at 18:00; Status DC Fentanyl Citrate (Fentanyl 2ml Vial) 50 mcg PRN Q5MIN PRN IV X 2 DOSES FOR PAIN; Start 03/27/19 at 07:15; Stop 03/27/19 at 18:00; Status DC Ringer's Solution 1,000 ml @ 125 mls/hr Q8H IV ; Start 03/27/19 at 07:06; Stop 03/27/19 at 19:05; Status DC Lidocaine HCl (Xylocaine-Mpf 1% 2ml Vial) 2 ml 1X PRN PRN ID IV START; Start 03/27/19 at 07:15; Stop 03/27/19 at 18:00; Status DC Insulin Glargine (Lantus) 30 units BID SQ Last administered on 03/29/19at 08:33; Start 03/27/19 at 21:00 Cefazolin Sodium 50 ml @ 100 mls/hr 1X ONCE IV Last administered on 03/27/19at 11:19; Start 03/27/19 at 11:00; Stop 03/27/19 at 11:29; Status DC Digoxin (Lanoxin) 500 mcg 1X ONCE IV Last administered on 03/28/19at 16:24; Start 03/28/19 at 16:15; Stop 03/28/19 at 16:17; Status DC Active Scripts Active Reported Proair Hfa Inhaler (Albuterol Sulfate) 8.5 Gm Hfa.aer.ad 1 Puff INH PRN Q6HRS PRN Lantus Solostar (Insulin Glargine,Hum.rec.anlog) 100 Unit/1 Ml Insuln.pen 20 Unit SQ QHS Humalog (Insulin Lispro) 100 Unit/1 Ml Cartridge 6 Unit SQ TIDWMEALS Doxazosin Mesylate 2 Mg Tablet 2 Mg PO DAILY Omeprazole 40 Mg Capsule.dr 40 Mg PO DAILY Amlodipine Besylate 10 Mg Tablet 10 Mg PO DAILY Atorvastatin Calcium 20 Mg Tablet 20 Mg PO DAILY Atenolol 50 Mg Tablet 50 Mg PO DAILY Losartan Potassium 100 Mg Tablet 100 Mg PO DAILY Aspirin 81 Mg Tab.chew 81 Mg PO DAILY Glyburide 5 Mg Tablet 1 Tab PO BID Vitals/I & O Vital Sign - Last 24 Hours 03/28/19 03/28/19 03/28/19 03/28/19 10:10 11:02 11:27 11:44 Temp 98.0 98.0 Pulse 90 90 Resp 24 B/P (MAP) 160/81 (107) 160/81 Pulse Ox 94 95 O2 Delivery Mechanical Ventilator Tracheal Collar Ventilator O2 Flow Rate 40.0 03/28/19 03/28/19 03/28/19 03/28/19 12:00 12:00 13:00 13:35 Pulse 84 90 Resp 22 B/P (MAP) 155/67 (96) 160/88 (112) Pulse Ox 94 95 94 O2 Delivery Ventilator Mechanical Ventilator Ventilator Ventilator 03/28/19 03/28/19 03/28/19 03/28/19 14:00 14:53 15:00 15:25 Temp 98.2 98.2 Pulse 93 140 Resp 22 20 22 20 B/P (MAP) 158/80 (106) 118/79 (92) Pulse Ox 95 95 95 95 O2 Delivery Ventilator Ventilator Ventilator 03/28/19 03/28/19 03/28/19 03/28/19 15:56 16:00 16:00 16:24 Pulse 160 160 Resp 24 B/P (MAP) 101/80 (87) 101/80 Pulse Ox 94 97 O2 Delivery Ventilator Mechanical Ventilator Ventilator 03/28/19 03/28/19 03/28/19 03/28/19 17:00 17:26 17:58 18:00 Pulse 87 87 83 Resp 23 25 B/P (MAP) 124/81 (95) 124/81 139/80 (99) Pulse Ox 97 94 96 O2 Delivery Ventilator Ventilator Ventilator 03/28/19 03/28/19 03/28/19 03/28/19 19:00 19:44 20:00 20:00 Temp 98.5 98.5 Pulse 88 87 Resp 22 22 B/P (MAP) 128/75 (92) 150/80 (103) Pulse Ox 94 94 94 O2 Delivery Ventilator Ventilator Mechanical Ventilator Ventilator 03/28/19 03/28/19 03/28/19 03/28/19 21:00 22:00 22:33 23:00 Pulse 93 95 91 Resp B/P (MAP) 124/86 (99) 177/84 (115) 140/80 (100) Pulse Ox 95 97 94 98 O2 Delivery Ventilator Ventilator Ventilator Ventilator 03/28/19 03/29/19 03/29/19 03/29/19 23:36 00:00 00:00 01:00 Temp 98.3 98.3 Pulse 90 81 81 Resp B/P (MAP) 140/80 135/68 (90) 175/82 (113) Pulse Ox 92 93 O2 Delivery Mechanical Ventilator Ventilator Ventilator 03/29/19 03/29/19 03/29/19 03/29/19 01:35 02:00 03:00 03:10 Pulse 96 86 Resp B/P (MAP) 160/71 (100) 162/68 (99) Pulse Ox 94 94 95 94 O2 Delivery Ventilator Ventilator Ventilator Ventilator 03/29/19 03/29/19 03/29/19 03/29/19 04:00 04:00 04:52 05:00 Temp 98.5 98.5 Pulse 96 142 93 Resp B/P (MAP) 174/75 (108) 179/75 135/83 (100) Pulse Ox 95 96 O2 Delivery Ventilator Mechanical Ventilator Ventilator 03/29/19 03/29/19 03/29/19 03/29/19 05:00 05:25 07:00 07:54 Temp 97.8 97.8 Pulse 90 111 Resp B/P (MAP) 114/79 (91) 129/78 (95) Pulse Ox 95 94 98 O2 Delivery Ventilator Ventilator Ventilator Mechanical Ventilator 03/29/19 03/29/19 03/29/19 08:00 08:02 09:00 Pulse 99 88 Resp 18 16 B/P (MAP) 111/72 (85) 101/72 (82) Pulse Ox 96 94 96 O2 Delivery Ventilator Ventilator Ventilator Intake and Output 03/28/19 03/28/19 03/29/19 15:00 23:00 07:00 Intake Total 485 ml 2147 ml 3565.7 ml Output Total 2025 ml 795 ml 1015 ml Balance -1540 ml 1352 ml 2550.7 ml ADITYA HUSTON MD Mar 29, 2019 10:04
--- NOTE | 2019-03-29 11:39 | PDOC ---
PROGRESS NOTES Subjective Subjective Reconsulted for atrial fibrillation. Patient s/p tracheostomy, comfortable Objective Objective Vital Signs Date Time Temp Pulse Resp B/P (MAP) Pulse Ox O2 Delivery O2 Flow Rate FiO2 03/29/19 10:53 16 97 Ventilator 03/29/19 10:00 90 116/73 (87) 03/29/19 07:00 97.8 97.8 03/28/19 10:10 40.0 Intake and Output 03/29/19 06:59 Intake Total 6197.7 ml Output Total 4260 ml Balance 1937.7 ml IV Total 3366.7 ml Tube Feeding 2271 ml Other 560 ml Output Urine Total 4260 ml # Bowel Movements 5 Physical Exam Abdomen: No tenderness Heart: Regular rate, No murmurs Extremities: Other (1+ EDEMA) General: Other (s/p tracheostomy) HEENT: PERRLA, Other Lungs: Clear to auscultation, Normal air movement MUSCULOSKELETAL: No deformity Neuro: Normal tone, Reflexes 2+ Skin: No significant lesion Diagnosis RENAL FAILURE: Acute (Acute tubular necrosis) Assessment Assessment 1. Acute respiratory failure/ARDS [facility]. Myocardial infarction ruled out.2D Echo showed normal LV systolic function. Continue current treatment per pulmonary team 2. Atrial fibrillation, new onset with intermittent RVR. Start amiodarone for rhythm maintenance. He is probably a poor candidate for penitentiary anticoagulation. 3. Acute on chronic renal insufficiency: improved. 4. Diabetes mellitus type 2: Treat per IM 5. Anoxic encephalopathy: s/p trach/PEG. Treat per IM. Guarded overall prognosis. Plan Plan of Care Problems Medical Problems: (1) Acute renal failure Status: Acute (2) Edema Status: Acute (3) Shortness of breath Status: Acute Comment Review of Relevant I have reviewed the following items pascual (where applicable) has been applied. Labs Laboratory Tests Test 03/28/19 12:20 03/28/19 13:26 03/28/19 14:31 03/28/19 15:34 Glucose (Fingerstick) 127 mg/dL (70-99) 149 mg/dL (70-99) 162 mg/dL (70-99) 151 mg/dL (70-99) Test 03/28/19 17:13 03/28/19 18:11 03/28/19 19:24 03/28/19 20:27 Glucose (Fingerstick) 150 mg/dL (70-99) 126 mg/dL (70-99) 147 mg/dL (70-99) 140 mg/dL (70-99) Test 03/28/19 21:40 03/28/19 22:45 03/28/19 23:45 03/29/19 00:50 Glucose (Fingerstick) 198 mg/dL (70-99) 186 mg/dL (70-99) 173 mg/dL (70-99) 137 mg/dL (70-99) Test 03/29/19 01:50 03/29/19 02:56 03/29/19 04:02 03/29/19 05:06 Glucose (Fingerstick) 134 mg/dL (70-99) 114 mg/dL (70-99) 113 mg/dL (70-99) 112 mg/dL (70-99) Test 03/29/19 06:00 03/29/19 06:14 03/29/19 07:23 03/29/19 08:00 Sodium Level 143 mmol/L (136-145) Potassium Level 4.3 mmol/L (3.5-5.1) Chloride Level 105 mmol/L (98-107) Carbon Dioxide Level 33 mmol/L (21-32) Anion Gap 5 (6-14) Blood Urea Nitrogen 59 mg/dL (8-26) Creatinine 0.8 mg/dL (0.7-1.3) Estimated GFR (Cockcroft-Gault) 100.0 Glucose Level 122 mg/dL (70-99) Calcium Level 8.2 mg/dL (8.5-10.1) Glucose (Fingerstick) 116 mg/dL (70-99) 117 mg/dL (70-99) O2 Saturation 94 % (92-99) Arterial Blood pH 7.45 (7.35-7.45) Arterial Blood pCO2 at Patient Temp 44 mmHg (35-46) Arterial Blood pO2 at Patient Temp 72 mmHg (75-108) Arterial Blood HCO3 30 mmol/L (21-28) Arterial Blood Base Excess 6 mmol/L (-3-3) FiO2 50 Test 03/29/19 08:32 03/29/19 09:47 Glucose (Fingerstick) 121 mg/dL (70-99) 136 mg/dL (70-99) Microbiology 03/05/19 Blood Culture - Final, Complete NO GROWTH AFTER 5 DAYS 03/08/19 - Final, Complete 03/08/19 - Final, Complete 03/08/19 - Final, Complete 03/08/19 Gram Stain Evaluation - Final, Complete 03/08/19 Sputum Culture - Final, Complete 03/08/19 Sputum Result 1 - Final, Complete 03/02/19 Urine Culture - Final, Complete 03/02/19 Urine Culture Result 1 (LUCIO) - Final, Complete 03/09/19 Aerobic Culture - Final, Complete 03/09/19 Aerobic Culture Result 1 (LUCIO) - Final, Complete 03/09/19 Gram Stain - Final, Complete 03/09/19 Gram Stain Result 1 (LUCIO) - Final, Complete 03/09/19 Gram Stain Result 2 (LUCIO) - Final, Complete Medications Current Medications Digoxin (Lanoxin) 500 mcg 1X ONCE IV Last administered on 03/28/19at 16:24; Start 03/28/19 at 16:15; Stop 03/28/19 at 16:17; Status DC Vitals/I & O Vital Sign - Last 24 Hours 03/28/19 03/28/19 03/28/19 03/28/19 11:44 12:00 12:00 13:00 Pulse 84 90 Resp 22 22 B/P (MAP) 155/67 (96) 160/88 (112) Pulse Ox 95 94 95 O2 Delivery Ventilator Ventilator Mechanical Ventilator Ventilator 03/28/19 03/28/19 03/28/19 03/28/19 13:35 14:00 14:53 15:00 Temp 98.2 98.2 Pulse 93 140 Resp 22 20 22 B/P (MAP) 158/80 (106) 118/79 (92) Pulse Ox 94 95 95 95 O2 Delivery Ventilator Ventilator Ventilator Ventilator 03/28/19 03/28/19 03/28/19 03/28/19 15:25 15:56 16:00 16:00 Pulse 160 Resp 20 24 B/P (MAP) 101/80 (87) Pulse Ox 95 94 97 O2 Delivery Ventilator Mechanical Ventilator Ventilator 03/28/19 03/28/19 03/28/19 03/28/19 16:24 17:00 17:26 17:58 Pulse 160 87 87 Resp 23 B/P (MAP) 101/80 124/81 (95) 124/81 Pulse Ox 97 94 O2 Delivery Ventilator Ventilator 03/28/19 03/28/19 03/28/19 03/28/19 18:00 19:00 19:44 20:00 Temp 98.5 98.5 Pulse 83 88 Resp 22 B/P (MAP) 139/80 (99) 128/75 (92) Pulse Ox 96 94 94 O2 Delivery Ventilator Ventilator Ventilator Mechanical Ventilator 03/28/19 03/28/19 03/28/19 03/28/19 20:00 21:00 22:00 22:33 Pulse 87 93 95 Resp 24 B/P (MAP) 150/80 (103) 124/86 (99) 177/84 (115) Pulse Ox 94 95 97 94 O2 Delivery Ventilator Ventilator Ventilator Ventilator 03/28/19 03/28/19 03/29/19 03/29/19 23:00 23:36 00:00 00:00 Temp 98.3 98.3 Pulse 91 90 81 Resp B/P (MAP) 140/80 (100) 140/80 135/68 (90) Pulse Ox 98 92 O2 Delivery Ventilator Mechanical Ventilator Ventilator 03/29/19 03/29/19 03/29/19 03/29/19 01:00 01:35 02:00 03:00 Pulse 81 96 86 Resp 30 25 B/P (MAP) 175/82 (113) 160/71 (100) 162/68 (99) Pulse Ox 93 94 94 95 O2 Delivery Ventilator Ventilator Ventilator Ventilator 03/29/19 03/29/19 03/29/19 03/29/19 03:10 04:00 04:00 04:52 Temp 98.5 98.5 Pulse 96 142 Resp 22 B/P (MAP) 174/75 (108) 179/75 Pulse Ox 94 95 O2 Delivery Ventilator Ventilator Mechanical Ventilator 03/29/19 03/29/19 03/29/19 03/29/19 05:00 05:00 05:25 07:00 Temp 97.8 97.8 Pulse 93 90 111 Resp B/P (MAP) 135/83 (100) 114/79 (91) 129/78 (95) Pulse Ox 96 95 94 98 O2 Delivery Ventilator Ventilator Ventilator Ventilator 03/29/19 03/29/19 03/29/19 03/29/19 07:54 08:00 08:02 09:00 Pulse 99 88 Resp 18 16 B/P (MAP) 111/72 (85) 101/72 (82) Pulse Ox 96 94 96 O2 Delivery Mechanical Ventilator Ventilator Ventilator Ventilator 03/29/19 03/29/19 10:00 10:53 Pulse 90 Resp 16 16 B/P (MAP) 116/73 (87) Pulse Ox 96 97 O2 Delivery Ventilator Ventilator Intake and Output 03/28/19 03/28/19 03/29/19 14:59 22:59 06:59 Intake Total 485 ml 2147 ml 3565.7 ml Output Total 2700 ml 895 ml 665 ml Balance -2215 ml 1252 ml 2900.7 ml ASHUTOSH FINK MD Mar 29, 2019 11:39
--- NOTE | 2019-03-29 12:00 | NUR ---
pt is remaining in sb-sr in the 50's to low 60's since 1110. dr gloria notifed of pt being in intermittent afib/flutter. pt continues having stool in rectal tube with small amount of leakage around tube. pt cleansed with turnings. pt tolerating well. trach care performed with blood tinged sputum in inner cannula. corbin catheter renewed. pt with 690 cc of residual. amount wasted and tube feeding placed on hold. will restart this afternoon.
--- NOTE | 2019-03-29 15:01 | PDOC ---
PULMONARY PROGRESS NOTES Subjective SEDATED AC MODE Vitals Vital Signs Date Time Temp Pulse Resp B/P (MAP) Pulse Ox O2 Delivery O2 Flow Rate FiO2 03/29/19 14:00 66 19 150/71 (97) 92 Ventilator 03/29/19 12:00 97.9 97.9 03/28/19 10:10 40.0 HEENT: Other (TRACH 03/26) Lungs: Crackles Cardiovascular: S1, S2 Abdomen: Soft, Non-tender Extremities: Other (venous stasis and edema left, right BKA) Skin: Warm, Dry Labs Laboratory Tests Test 03/27/19 15:27 03/27/19 16:45 03/27/19 17:48 03/27/19 18:52 Glucose (Fingerstick) 128 mg/dL (70-99) 135 mg/dL (70-99) 133 mg/dL (70-99) 122 mg/dL (70-99) Test 03/27/19 19:56 03/27/19 21:01 03/27/19 22:06 03/27/19 23:12 Glucose (Fingerstick) 129 mg/dL (70-99) 148 mg/dL (70-99) 130 mg/dL (70-99) 164 mg/dL (70-99) Test 03/28/19 00:23 03/28/19 01:29 03/28/19 02:25 03/28/19 03:42 Glucose (Fingerstick) 172 mg/dL (70-99) 176 mg/dL (70-99) 147 mg/dL (70-99) 128 mg/dL (70-99) Test 03/28/19 04:47 03/28/19 05:45 03/28/19 05:59 03/28/19 07:20 Glucose (Fingerstick) 134 mg/dL (70-99) 137 mg/dL (70-99) 133 mg/dL (70-99) White Blood Count 16.4 x10^3/uL (4.0-11.0) Red Blood Count 3.99 x10^6/uL (4.30-5.70) Hemoglobin 11.8 g/dL (13.0-17.5) Hematocrit 37.0 % (39.0-53.0) Mean Corpuscular Volume 93 fL (79-100) Mean Corpuscular Hemoglobin 30 pg (25-35) Mean Corpuscular Hemoglobin Concent 32 g/dL (31-37) Red Cell Distribution Width 14.2 % (11.5-14.5) Platelet Count 271 x10^3/uL (140-400) Neutrophils (%) (Auto) 90 % (31-73) Lymphocytes (%) (Auto) 6 % (24-48) Monocytes (%) (Auto) 4 % (0-9) Eosinophils (%) (Auto) 0 % (0-3) Basophils (%) (Auto) 0 % (0-3) Neutrophils # (Auto) 14.7 x10^3uL (1.8-7.7) Lymphocytes # (Auto) 0.9 x10^3/uL (1.0-4.8) Monocytes # (Auto) 0.7 x10^3/uL (0.0-1.1) Eosinophils # (Auto) 0.0 x10^3/uL (0.0-0.7) Basophils # (Auto) 0.0 x10^3/uL (0.0-0.2) Segmented Neutrophils % 84 % (35-66) Band Neutrophils % 4 % (0-9) Lymphocytes % 7 % (24-48) Monocytes % 5 % (0-10) Platelet Estimate Adequate (ADEQUATE) Sodium Level 146 mmol/L (136-145) Potassium Level 4.1 mmol/L (3.5-5.1) Chloride Level 106 mmol/L (98-107) Carbon Dioxide Level 32 mmol/L (21-32) Anion Gap 8 (6-14) Blood Urea Nitrogen 62 mg/dL (8-26) Creatinine 0.9 mg/dL (0.7-1.3) Estimated GFR (Cockcroft-Gault) 87.3 Glucose Level 146 mg/dL (70-99) Calcium Level 8.2 mg/dL (8.5-10.1) Test 03/28/19 08:25 03/28/19 08:31 03/28/19 09:50 03/28/19 10:56 O2 Saturation 93 % (92-99) Arterial Blood pH 7.51 (7.35-7.45) Arterial Blood pCO2 at Patient Temp 39 mmHg (35-46) Arterial Blood pO2 at Patient Temp 66 mmHg (75-108) Arterial Blood HCO3 30 mmol/L (21-28) Arterial Blood Base Excess 7 mmol/L (-3-3) FiO2 50 Glucose (Fingerstick) 144 mg/dL (70-99) 128 mg/dL (70-99) 137 mg/dL (70-99) Test 03/28/19 12:20 03/28/19 13:26 03/28/19 14:31 03/28/19 15:34 Glucose (Fingerstick) 127 mg/dL (70-99) 149 mg/dL (70-99) 162 mg/dL (70-99) 151 mg/dL (70-99) Test 03/28/19 17:13 03/28/19 18:11 03/28/19 19:24 03/28/19 20:27 Glucose (Fingerstick) 150 mg/dL (70-99) 126 mg/dL (70-99) 147 mg/dL (70-99) 140 mg/dL (70-99) Test 03/28/19 21:40 03/28/19 22:45 03/28/19 23:45 03/29/19 00:50 Glucose (Fingerstick) 198 mg/dL (70-99) 186 mg/dL (70-99) 173 mg/dL (70-99) 137 mg/dL (70-99) Test 03/29/19 01:50 03/29/19 02:56 03/29/19 04:02 03/29/19 05:06 Glucose (Fingerstick) 134 mg/dL (70-99) 114 mg/dL (70-99) 113 mg/dL (70-99) 112 mg/dL (70-99) Test 03/29/19 06:00 03/29/19 06:14 03/29/19 07:23 03/29/19 08:00 Sodium Level 143 mmol/L (136-145) Potassium Level 4.3 mmol/L (3.5-5.1) Chloride Level 105 mmol/L (98-107) Carbon Dioxide Level 33 mmol/L (21-32) Anion Gap 5 (6-14) Blood Urea Nitrogen 59 mg/dL (8-26) Creatinine 0.8 mg/dL (0.7-1.3) Estimated GFR (Cockcroft-Gault) 100.0 Glucose Level 122 mg/dL (70-99) Calcium Level 8.2 mg/dL (8.5-10.1) Glucose (Fingerstick) 116 mg/dL (70-99) 117 mg/dL (70-99) O2 Saturation 94 % (92-99) Arterial Blood pH 7.45 (7.35-7.45) Arterial Blood pCO2 at Patient Temp 44 mmHg (35-46) Arterial Blood pO2 at Patient Temp 72 mmHg (75-108) Arterial Blood HCO3 30 mmol/L (21-28) Arterial Blood Base Excess 6 mmol/L (-3-3) FiO2 50 Test 03/29/19 08:32 03/29/19 09:47 03/29/19 12:26 03/29/19 14:14 Glucose (Fingerstick) 121 mg/dL (70-99) 136 mg/dL (70-99) 155 mg/dL (70-99) 135 mg/dL (70-99) Laboratory Tests Test 03/28/19 15:34 03/28/19 17:13 03/28/19 18:11 03/28/19 19:24 Glucose (Fingerstick) 151 mg/dL (70-99) 150 mg/dL (70-99) 126 mg/dL (70-99) 147 mg/dL (70-99) Test 03/28/19 20:27 03/28/19 21:40 03/28/19 22:45 03/28/19 23:45 Glucose (Fingerstick) 140 mg/dL (70-99) 198 mg/dL (70-99) 186 mg/dL (70-99) 173 mg/dL (70-99) Test 03/29/19 00:50 03/29/19 01:50 03/29/19 02:56 03/29/19 04:02 Glucose (Fingerstick) 137 mg/dL (70-99) 134 mg/dL (70-99) 114 mg/dL (70-99) 113 mg/dL (70-99) Test 03/29/19 05:06 03/29/19 06:00 03/29/19 06:14 03/29/19 07:23 Glucose (Fingerstick) 112 mg/dL (70-99) 116 mg/dL (70-99) 117 mg/dL (70-99) Sodium Level 143 mmol/L (136-145) Potassium Level 4.3 mmol/L (3.5-5.1) Chloride Level 105 mmol/L (98-107) Carbon Dioxide Level 33 mmol/L (21-32) Anion Gap 5 (6-14) Blood Urea Nitrogen 59 mg/dL (8-26) Creatinine 0.8 mg/dL (0.7-1.3) Estimated GFR (Cockcroft-Gault) 100.0 Glucose Level 122 mg/dL (70-99) Calcium Level 8.2 mg/dL (8.5-10.1) Test 03/29/19 08:00 03/29/19 08:32 03/29/19 09:47 03/29/19 12:26 O2 Saturation 94 % (92-99) Arterial Blood pH 7.45 (7.35-7.45) Arterial Blood pCO2 at Patient Temp 44 mmHg (35-46) Arterial Blood pO2 at Patient Temp 72 mmHg (75-108) Arterial Blood HCO3 30 mmol/L (21-28) Arterial Blood Base Excess 6 mmol/L (-3-3) FiO2 50 Glucose (Fingerstick) 121 mg/dL (70-99) 136 mg/dL (70-99) 155 mg/dL (70-99) Test 03/29/19 14:14 Glucose (Fingerstick) 135 mg/dL (70-99) Medications Active Scripts Medications Dose Route/Sig Max Daily Dose Days Date Category Proair Hfa Inhaler (Albuterol Sulfate) 8.5 Gm Hfa.aer.ad 1 Puff INH PRN Q6HRS PRN 02/27/19 Reported Lantus Solostar (Insulin Glargine,Hum.rec.anlog) 100 Unit/1 Ml Insuln.pen 20 Unit SQ QHS 02/27/19 Reported Humalog (Insulin Lispro) 100 Unit/1 Ml Cartridge 6 Unit SQ TIDWMEALS 02/27/19 Reported Doxazosin Mesylate 2 Mg Tablet 2 Mg PO DAILY 02/27/19 Reported Omeprazole 40 Mg Capsule.dr 40 Mg PO DAILY 02/27/19 Reported Amlodipine Besylate 10 Mg Tablet 10 Mg PO DAILY 02/27/19 Reported Atorvastatin Calcium 20 Mg Tablet 20 Mg PO DAILY 02/27/19 Reported Atenolol 50 Mg Tablet 50 Mg PO DAILY 02/27/19 Reported Losartan Potassium 100 Mg Tablet 100 Mg PO DAILY 02/27/19 Reported Aspirin 81 Mg Tab.chew 81 Mg PO DAILY 02/27/19 Reported Glyburide 5 Mg Tablet 1 Tab PO BID 11/09/16 Reported Active Scripts Medications Dose Route/Sig Max Daily Dose Days Date Category Proair Hfa Inhaler (Albuterol Sulfate) 8.5 Gm Hfa.aer.ad 1 Puff INH PRN Q6HRS PRN 02/27/19 Reported Lantus Solostar (Insulin Glargine,Hum.rec.anlog) 100 Unit/1 Ml Insuln.pen 20 Unit SQ QHS 02/27/19 Reported Humalog (Insulin Lispro) 100 Unit/1 Ml Cartridge 6 Unit SQ TIDWMEALS 02/27/19 Reported Doxazosin Mesylate 2 Mg Tablet 2 Mg PO DAILY 02/27/19 Reported Omeprazole 40 Mg Capsule.dr 40 Mg PO DAILY 02/27/19 Reported Amlodipine Besylate 10 Mg Tablet 10 Mg PO DAILY 02/27/19 Reported Atorvastatin Calcium 20 Mg Tablet 20 Mg PO DAILY 02/27/19 Reported Atenolol 50 Mg Tablet 50 Mg PO DAILY 02/27/19 Reported Losartan Potassium 100 Mg Tablet 100 Mg PO DAILY 02/27/19 Reported Aspirin 81 Mg Tab.chew 81 Mg PO DAILY 02/27/19 Reported Glyburide 5 Mg Tablet 1 Tab PO BID 11/09/16 Reported Active Scripts Medications Dose Route/Sig Max Daily Dose Days Date Category Proair Hfa Inhaler (Albuterol Sulfate) 8.5 Gm Hfa.aer.ad 1 Puff INH PRN Q6HRS PRN 02/27/19 Reported Lantus Solostar (Insulin Glargine,Hum.rec.anlog) 100 Unit/1 Ml Insuln.pen 20 Unit SQ QHS 02/27/19 Reported Humalog (Insulin Lispro) 100 Unit/1 Ml Cartridge 6 Unit SQ TIDWMEALS 02/27/19 Reported Doxazosin Mesylate 2 Mg Tablet 2 Mg PO DAILY 02/27/19 Reported Omeprazole 40 Mg Capsule.dr 40 Mg PO DAILY 02/27/19 Reported Amlodipine Besylate 10 Mg Tablet 10 Mg PO DAILY 02/27/19 Reported Atorvastatin Calcium 20 Mg Tablet 20 Mg PO DAILY 02/27/19 Reported Atenolol 50 Mg Tablet 50 Mg PO DAILY 02/27/19 Reported Losartan Potassium 100 Mg Tablet 100 Mg PO DAILY 02/27/19 Reported Aspirin 81 Mg Tab.chew 81 Mg PO DAILY 02/27/19 Reported Glyburide 5 Mg Tablet 1 Tab PO BID 11/09/16 Reported Impression . Acute hypoxemic /hypercapnic respiratory failure./ ARDS sepsis./ ARDS In-house cardiopulmonary arrest. Normal EF / mild Pulmonary HTN Acute on chronic right-sided heart failure. Morbid obesity. Diabetes uncontrolled Abnormal CXR S/P TRACH 03/26 Plan . IMRPOIBNG WILL DECREASE PEEP SPOKW WITH SISTER AT BEDSIDE CXR REVIEWED DECREASE FIO2 ANTIBX CCT 30 MIN PT. is DNR MAGO NI MD Mar 29, 2019 15:01
[2019-03-29] MEDS ORDERED: DEXTROSE 50% 25 GM / 50ML DISP.SYRIN. IV PRN (17:15)
[2019-03-29] MEDS ORDERED: AMIODARONE 150 MG in IV DEXTROSE 5% 100ML 100 ML IV ONE (19:30)
[2019-03-29] MEDS ORDERED: AMIODARONE 900 MG in IV DEXTROSE 5% 500 ML IV PRN (20:00)
[2019-03-30] VITALS (24 sets, daily range): BP systolic 135–179; BP diastolic 67–88
[2019-03-30] MEDS: PROPOFOL 100 ML IV PRN ×5 (02:30→18:04)
[2019-03-30] MEDS: METOCLOPRAMIDE HCL 10 MG/2 ML VIAL. IV SCH ×3 (04:33→21:48)
[2019-03-30 05:00] LABS: CALCIUM 8.5 mg/dL (8.5-10.1); CREATININE 0.9 mg/dL (0.7-1.3); GFR 87.3; POTASSIUM 4.7 mmol/L (3.5-5.1)
[2019-03-30] MEDS: FUROSEMIDE 100 MG/10 ML VIAL. IVP SCH (05:01)
[2019-03-30] MEDS: methylPREDNISolone SOD SUCC PF 125 MG/2 ML VIAL. IV SCH ×3 (05:03→21:48)
[2019-03-30] MEDS: HEPARIN for SUB-Q USE 5,000 UNIT/ML VIAL. SQ SCH ×3 (05:03→21:43)
[2019-03-30] MEDS: METOPROLOL TARTRATE 5 MG/5 ML VIAL. IVP SCH ×3 (05:04→18:05)
--- NOTE | 2019-03-30 07:51 | RAD ---
Portable chest, 03/30/2019: HISTORY: Respiratory failure/ARDS Comparison is made to yesterday's exam. The tracheostomy tube and right PICC are unchanged in positions. The heart size is unchanged. There are worsening moderate bilateral pulmonary infiltrates with poor definition of the pulmonary vascularity. The hemidiaphragms are obscured. There is likely pleural fluid contributing to the basilar opacities. IMPRESSION: Worsening moderate bilateral pulmonary infiltrates. Electronically signed by: Moose Astorga MD (03/30/2019 7:49 AM) [facility] [place]
[2019-03-30] MEDS: ASPIRIN CHEWABLE 81 MG TABLET. PO SCH (08:11)
[2019-03-30] MEDS: NYSTATIN 100,000 UNIT/GM TOPICAL CREAM 15GM TUBE. TP SCH ×2 (08:11→21:49)
[2019-03-30] MEDS: FAMOTIDINE 20 MG/2 ML VIAL IVP SCH ×2 (08:11→21:48)
[2019-03-30] MEDS: INSULIN GLARGINE 300 UNITS/3 ML INSULN.PEN. SQ SCH ×2 (08:15→21:43)
[2019-03-30] MEDS: INSULIN LISPRO 300 UNITS/3 ML INSULN.PEN. SQ SCH ×3 (08:16→17:20)
[2019-03-30] MEDS: AMIODARONE HCL 200 MG TABLET. PO SCH (09:00)
[2019-03-30] MEDS: IPRATRPIUM/ALBUTEROL 0.5/2.5MG 3 ML NEBU. NEB SCH ×4 (09:13→20:54)
[2019-03-30 09:23] LABS: BASE EXCESS ABG 7 mmol/L (-3-3); HCO3 ABG 32 mmol/L (21-28); PCO2 ABG 45 mmHg (35-46); PO2 ABG 74 mmHg (75-108); SAT O2 ABG 94 % (92-99)
[2019-03-30 09:24] LABS: FIO2 ABG 50
--- NOTE | 2019-03-30 09:26 | PDOC ---
PULMONARY PROGRESS NOTES Subjective SEDATED AC MODE Vitals Vital Signs Date Time Temp Pulse Resp B/P (MAP) Pulse Ox O2 Delivery O2 Flow Rate FiO2 03/30/19 09:14 95 Ventilator 03/30/19 06:00 68 16 160/78 (105) 03/30/19 04:33 40.0 03/30/19 04:00 98.4 98.4 HEENT: Other (TRACH 03/26) Lungs: Crackles Cardiovascular: S1, S2 Abdomen: Soft, Non-tender Extremities: Other (venous stasis and edema left, right BKA) Skin: Warm, Dry Labs Laboratory Tests Test 03/28/19 09:50 03/28/19 10:56 03/28/19 12:20 03/28/19 13:26 Glucose (Fingerstick) 128 mg/dL (70-99) 137 mg/dL (70-99) 127 mg/dL (70-99) 149 mg/dL (70-99) Test 03/28/19 14:31 03/28/19 15:34 03/28/19 17:13 03/28/19 18:11 Glucose (Fingerstick) 162 mg/dL (70-99) 151 mg/dL (70-99) 150 mg/dL (70-99) 126 mg/dL (70-99) Test 03/28/19 19:24 03/28/19 20:27 03/28/19 21:40 03/28/19 22:45 Glucose (Fingerstick) 147 mg/dL (70-99) 140 mg/dL (70-99) 198 mg/dL (70-99) 186 mg/dL (70-99) Test 03/28/19 23:45 03/29/19 00:50 03/29/19 01:50 03/29/19 02:56 Glucose (Fingerstick) 173 mg/dL (70-99) 137 mg/dL (70-99) 134 mg/dL (70-99) 114 mg/dL (70-99) Test 03/29/19 04:02 03/29/19 05:06 03/29/19 06:00 03/29/19 06:14 Glucose (Fingerstick) 113 mg/dL (70-99) 112 mg/dL (70-99) 116 mg/dL (70-99) Sodium Level 143 mmol/L (136-145) Potassium Level 4.3 mmol/L (3.5-5.1) Chloride Level 105 mmol/L (98-107) Carbon Dioxide Level 33 mmol/L (21-32) Anion Gap 5 (6-14) Blood Urea Nitrogen 59 mg/dL (8-26) Creatinine 0.8 mg/dL (0.7-1.3) Estimated GFR (Cockcroft-Gault) 100.0 Glucose Level 122 mg/dL (70-99) Calcium Level 8.2 mg/dL (8.5-10.1) Test 03/29/19 07:23 03/29/19 08:00 03/29/19 08:32 03/29/19 09:47 Glucose (Fingerstick) 117 mg/dL (70-99) 121 mg/dL (70-99) 136 mg/dL (70-99) O2 Saturation 94 % (92-99) Arterial Blood pH 7.45 (7.35-7.45) Arterial Blood pCO2 at Patient Temp 44 mmHg (35-46) Arterial Blood pO2 at Patient Temp 72 mmHg (75-108) Arterial Blood HCO3 30 mmol/L (21-28) Arterial Blood Base Excess 6 mmol/L (-3-3) FiO2 50 Test 03/29/19 12:26 03/29/19 14:14 03/29/19 15:18 03/29/19 17:24 Glucose (Fingerstick) 155 mg/dL (70-99) 135 mg/dL (70-99) 127 mg/dL (70-99) 164 mg/dL (70-99) Test 03/29/19 20:16 03/30/19 04:46 03/30/19 04:50 03/30/19 09:15 Glucose (Fingerstick) 184 mg/dL (70-99) 272 mg/dL (70-99) Sodium Level 139 mmol/L (136-145) Potassium Level 4.7 mmol/L (3.5-5.1) Chloride Level 101 mmol/L (98-107) Carbon Dioxide Level 33 mmol/L (21-32) Anion Gap 5 (6-14) Blood Urea Nitrogen 57 mg/dL (8-26) Creatinine 0.9 mg/dL (0.7-1.3) Estimated GFR (Cockcroft-Gault) 87.3 Glucose Level 298 mg/dL (70-99) Calcium Level 8.5 mg/dL (8.5-10.1) O2 Saturation 94 % (92-99) Arterial Blood pH 7.46 (7.35-7.45) Arterial Blood pCO2 at Patient Temp 45 mmHg (35-46) Arterial Blood pO2 at Patient Temp 74 mmHg (75-108) Arterial Blood HCO3 32 mmol/L (21-28) Arterial Blood Base Excess 7 mmol/L (-3-3) FiO2 50 Laboratory Tests Test 03/29/19 09:47 03/29/19 12:26 03/29/19 14:14 03/29/19 15:18 Glucose (Fingerstick) 136 mg/dL (70-99) 155 mg/dL (70-99) 135 mg/dL (70-99) 127 mg/dL (70-99) Test 03/29/19 17:24 03/29/19 20:16 03/30/19 04:46 03/30/19 04:50 Glucose (Fingerstick) 164 mg/dL (70-99) 184 mg/dL (70-99) 272 mg/dL (70-99) Sodium Level 139 mmol/L (136-145) Potassium Level 4.7 mmol/L (3.5-5.1) Chloride Level 101 mmol/L (98-107) Carbon Dioxide Level 33 mmol/L (21-32) Anion Gap 5 (6-14) Blood Urea Nitrogen 57 mg/dL (8-26) Creatinine 0.9 mg/dL (0.7-1.3) Estimated GFR (Cockcroft-Gault) 87.3 Glucose Level 298 mg/dL (70-99) Calcium Level 8.5 mg/dL (8.5-10.1) Test 03/30/19 09:15 O2 Saturation 94 % (92-99) Arterial Blood pH 7.46 (7.35-7.45) Arterial Blood pCO2 at Patient Temp 45 mmHg (35-46) Arterial Blood pO2 at Patient Temp 74 mmHg (75-108) Arterial Blood HCO3 32 mmol/L (21-28) Arterial Blood Base Excess 7 mmol/L (-3-3) FiO2 50 Medications Active Scripts Medications Dose Route/Sig Max Daily Dose Days Date Category Proair Hfa Inhaler (Albuterol Sulfate) 8.5 Gm Hfa.aer.ad 1 Puff INH PRN Q6HRS PRN 02/27/19 Reported Lantus Solostar (Insulin Glargine,Hum.rec.anlog) 100 Unit/1 Ml Insuln.pen 20 Unit SQ QHS 02/27/19 Reported Humalog (Insulin Lispro) 100 Unit/1 Ml Cartridge 6 Unit SQ TIDWMEALS 02/27/19 Reported Doxazosin Mesylate 2 Mg Tablet 2 Mg PO DAILY 02/27/19 Reported Omeprazole 40 Mg Capsule.dr 40 Mg PO DAILY 02/27/19 Reported Amlodipine Besylate 10 Mg Tablet 10 Mg PO DAILY 02/27/19 Reported Atorvastatin Calcium 20 Mg Tablet 20 Mg PO DAILY 02/27/19 Reported Atenolol 50 Mg Tablet 50 Mg PO DAILY 02/27/19 Reported Losartan Potassium 100 Mg Tablet 100 Mg PO DAILY 02/27/19 Reported Aspirin 81 Mg Tab.chew 81 Mg PO DAILY 02/27/19 Reported Glyburide 5 Mg Tablet 1 Tab PO BID 11/09/16 Reported Active Scripts Medications Dose Route/Sig Max Daily Dose Days Date Category Proair Hfa Inhaler (Albuterol Sulfate) 8.5 Gm Hfa.aer.ad 1 Puff INH PRN Q6HRS PRN 02/27/19 Reported Lantus Solostar (Insulin Glargine,Hum.rec.anlog) 100 Unit/1 Ml Insuln.pen 20 Unit SQ QHS 02/27/19 Reported Humalog (Insulin Lispro) 100 Unit/1 Ml Cartridge 6 Unit SQ TIDWMEALS 02/27/19 Reported Doxazosin Mesylate 2 Mg Tablet 2 Mg PO DAILY 02/27/19 Reported Omeprazole 40 Mg Capsule.dr 40 Mg PO DAILY 02/27/19 Reported Amlodipine Besylate 10 Mg Tablet 10 Mg PO DAILY 02/27/19 Reported Atorvastatin Calcium 20 Mg Tablet 20 Mg PO DAILY 02/27/19 Reported Atenolol 50 Mg Tablet 50 Mg PO DAILY 02/27/19 Reported Losartan Potassium 100 Mg Tablet 100 Mg PO DAILY 02/27/19 Reported Aspirin 81 Mg Tab.chew 81 Mg PO DAILY 02/27/19 Reported Glyburide 5 Mg Tablet 1 Tab PO BID 11/09/16 Reported Active Scripts Medications Dose Route/Sig Max Daily Dose Days Date Category Proair Hfa Inhaler (Albuterol Sulfate) 8.5 Gm Hfa.aer.ad 1 Puff INH PRN Q6HRS PRN 02/27/19 Reported Lantus Solostar (Insulin Glargine,Hum.rec.anlog) 100 Unit/1 Ml Insuln.pen 20 Unit SQ QHS 02/27/19 Reported Humalog (Insulin Lispro) 100 Unit/1 Ml Cartridge 6 Unit SQ TIDWMEALS 02/27/19 Reported Doxazosin Mesylate 2 Mg Tablet 2 Mg PO DAILY 02/27/19 Reported Omeprazole 40 Mg Capsule.dr 40 Mg PO DAILY 02/27/19 Reported Amlodipine Besylate 10 Mg Tablet 10 Mg PO DAILY 02/27/19 Reported Atorvastatin Calcium 20 Mg Tablet 20 Mg PO DAILY 02/27/19 Reported Atenolol 50 Mg Tablet 50 Mg PO DAILY 02/27/19 Reported Losartan Potassium 100 Mg Tablet 100 Mg PO DAILY 02/27/19 Reported Aspirin 81 Mg Tab.chew 81 Mg PO DAILY 02/27/19 Reported Glyburide 5 Mg Tablet 1 Tab PO BID 11/09/16 Reported Impression . Acute hypoxemic /hypercapnic respiratory failure./ ARDS sepsis./ ARDS In-house cardiopulmonary arrest. Normal EF / mild Pulmonary HTN Acute on chronic right-sided heart failure. Morbid obesity. Diabetes uncontrolled Abnormal CXR S/P TRACH 03/26 Plan . MORE AWAKE TODAY WILL TRY PS IMPROVING WILL DECREASE PEEP CXR REVIEWED DECREASE FIO2 ANTIBX CCT 30 MIN PT. is DNR MAGO NI MD Mar 30, 2019 09:26
--- NOTE | 2019-03-30 10:32 | PDOC ---
PROGRESS NOTES Chief Complaint Chief Complaint ARDS s/p trach and PEG 03/27 2019 In hospital cardiac arrest with short downtime Possible hypoxic/anoxia brain injury secondary to cardiac arrest Acute respiratory failure secondary to congestive heart failure,ARDS - high peep high O2 requirements Hypernatremia secondary to severe dehydration . on dextrose iVF High residuals on tube feedings no evidence of obstructive pattern on x ray done 03/05/2019 Bilateral general scrotal swelling and tenderness. better Dm2 obesity, extreme, morbid hx RLE BKA RLE stump with chronic wound. - from DM left foot nail onychomycosis Acute renal failure ATN chronic venous insuff left lower leg Bilateral lower lobe consolidation concerning for multifocal pneumonia Right renal hypodensity measuring 2.5 cm Anasarca. bilateral external iliac lymphadenopathy Trace tricuspid regurgitation. Estimated PAP 33-38 mmHg. Diastolic CHF History of Present Illness History of Present Illness Admitted with ARDS, status post trach 03/26/19, status post PEG 03/27/19 Afib yesterday, started on Amio gtt. Currently NSR with elevated BP. PEEP of 6, FiO2 50%. down to propofol and fentanyl. BP is up this morning, CXR looks worse bilaterally. Not very appropriate with following instructions, can nod yes and no. Plan Continue water flushes and tube feeds High likelihood of component of hypoxic and encephalopathy, persistent encephalopathy.-He did code in house, but was rather not a prolonged duration Overall prognosis poor, appropriately DNR This might be a prolonged encephalopathy that could either be hospice candidate or very long time LTAC care Family can be reasonable He is showing some encephalopathic/hypoxic movements to me namely upward rolling of the eyeball and nonpurposeful movements Lasix is down to 80 IV push once a day-there was a thought that he was over diuresed at one point in time, May need to change back to BID with his worsening CXR Hydralazine IV 10mg q 4hrs prn HTN 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 HEENT: Pupils equal, ETT. OGT LUNGS: Diminished HEART: S1, S2. regular ABDOMEN: Obese, distended, decreased bowel sounds, no grimace or guarding to palpation GENITOURINARY: [place] - less scrotal edema but still present EXTREMITIES: Generalized anasarca. RLE stump with chronic wound. No erythema/fluctuance/warmth. no cyanosis SKIN: Warm to touch. INPATIENT CODER: Unresponsive/sedated on vent RUE-PICC (03/09) clean General: Other (s/p tracheostomy) Heart: Regular rate, No murmurs Lungs: Crackles Abdomen: No tenderness Extremities: Other (1+ EDEMA) Skin: No significant lesion Labs LABS Laboratory Tests Test 03/29/19 12:26 03/29/19 14:14 03/29/19 15:18 03/29/19 17:24 Glucose (Fingerstick) 155 mg/dL (70-99) 135 mg/dL (70-99) 127 mg/dL (70-99) 164 mg/dL (70-99) Test 03/29/19 20:16 03/30/19 04:46 03/30/19 04:50 03/30/19 09:15 Glucose (Fingerstick) 184 mg/dL (70-99) 272 mg/dL (70-99) Sodium Level 139 mmol/L (136-145) Potassium Level 4.7 mmol/L (3.5-5.1) Chloride Level 101 mmol/L (98-107) Carbon Dioxide Level 33 mmol/L (21-32) Anion Gap 5 (6-14) Blood Urea Nitrogen 57 mg/dL (8-26) Creatinine 0.9 mg/dL (0.7-1.3) Estimated GFR (Cockcroft-Gault) 87.3 Glucose Level 298 mg/dL (70-99) Calcium Level 8.5 mg/dL (8.5-10.1) O2 Saturation 94 % (92-99) Arterial Blood pH 7.46 (7.35-7.45) Arterial Blood pCO2 at Patient Temp 45 mmHg (35-46) Arterial Blood pO2 at Patient Temp 74 mmHg (75-108) Arterial Blood HCO3 32 mmol/L (21-28) Arterial Blood Base Excess 7 mmol/L (-3-3) FiO2 50 Assessment and Plan Assessmemt and Plan Problems Medical Problems: (1) Acute renal failure Status: Acute (2) Edema Status: Acute (3) Shortness of breath Status: Acute Comment Review of Relevant I have reviewed the following items pascual (where applicable) has been applied. Labs Laboratory Tests Test 03/28/19 10:56 03/28/19 12:20 03/28/19 13:26 03/28/19 14:31 Glucose (Fingerstick) 137 mg/dL (70-99) 127 mg/dL (70-99) 149 mg/dL (70-99) 162 mg/dL (70-99) Test 03/28/19 15:34 03/28/19 17:13 03/28/19 18:11 03/28/19 19:24 Glucose (Fingerstick) 151 mg/dL (70-99) 150 mg/dL (70-99) 126 mg/dL (70-99) 147 mg/dL (70-99) Test 03/28/19 20:27 03/28/19 21:40 03/28/19 22:45 03/28/19 23:45 Glucose (Fingerstick) 140 mg/dL (70-99) 198 mg/dL (70-99) 186 mg/dL (70-99) 173 mg/dL (70-99) Test 03/29/19 00:50 03/29/19 01:50 03/29/19 02:56 03/29/19 04:02 Glucose (Fingerstick) 137 mg/dL (70-99) 134 mg/dL (70-99) 114 mg/dL (70-99) 113 mg/dL (70-99) Test 03/29/19 05:06 03/29/19 06:00 03/29/19 06:14 03/29/19 07:23 Glucose (Fingerstick) 112 mg/dL (70-99) 116 mg/dL (70-99) 117 mg/dL (70-99) Sodium Level 143 mmol/L (136-145) Potassium Level 4.3 mmol/L (3.5-5.1) Chloride Level 105 mmol/L (98-107) Carbon Dioxide Level 33 mmol/L (21-32) Anion Gap 5 (6-14) Blood Urea Nitrogen 59 mg/dL (8-26) Creatinine 0.8 mg/dL (0.7-1.3) Estimated GFR (Cockcroft-Gault) 100.0 Glucose Level 122 mg/dL (70-99) Calcium Level 8.2 mg/dL (8.5-10.1) Test 03/29/19 08:00 03/29/19 08:32 03/29/19 09:47 03/29/19 12:26 O2 Saturation 94 % (92-99) Arterial Blood pH 7.45 (7.35-7.45) Arterial Blood pCO2 at Patient Temp 44 mmHg (35-46) Arterial Blood pO2 at Patient Temp 72 mmHg (75-108) Arterial Blood HCO3 30 mmol/L (21-28) Arterial Blood Base Excess 6 mmol/L (-3-3) FiO2 50 Glucose (Fingerstick) 121 mg/dL (70-99) 136 mg/dL (70-99) 155 mg/dL (70-99) Test 03/29/19 14:14 03/29/19 15:18 03/29/19 17:24 03/29/19 20:16 Glucose (Fingerstick) 135 mg/dL (70-99) 127 mg/dL (70-99) 164 mg/dL (70-99) 184 mg/dL (70-99) Test 03/30/19 04:46 03/30/19 04:50 03/30/19 09:15 Glucose (Fingerstick) 272 mg/dL (70-99) Sodium Level 139 mmol/L (136-145) Potassium Level 4.7 mmol/L (3.5-5.1) Chloride Level 101 mmol/L (98-107) Carbon Dioxide Level 33 mmol/L (21-32) Anion Gap 5 (6-14) Blood Urea Nitrogen 57 mg/dL (8-26) Creatinine 0.9 mg/dL (0.7-1.3) Estimated GFR (Cockcroft-Gault) 87.3 Glucose Level 298 mg/dL (70-99) Calcium Level 8.5 mg/dL (8.5-10.1) O2 Saturation 94 % (92-99) Arterial Blood pH 7.46 (7.35-7.45) Arterial Blood pCO2 at Patient Temp 45 mmHg (35-46) Arterial Blood pO2 at Patient Temp 74 mmHg (75-108) Arterial Blood HCO3 32 mmol/L (21-28) Arterial Blood Base Excess 7 mmol/L (-3-3) FiO2 50 Laboratory Tests Test 03/29/19 12:26 03/29/19 14:14 03/29/19 15:18 03/29/19 17:24 Glucose (Fingerstick) 155 mg/dL (70-99) 135 mg/dL (70-99) 127 mg/dL (70-99) 164 mg/dL (70-99) Test 03/29/19 20:16 03/30/19 04:46 03/30/19 04:50 03/30/19 09:15 Glucose (Fingerstick) 184 mg/dL (70-99) 272 mg/dL (70-99) Sodium Level 139 mmol/L (136-145) Potassium Level 4.7 mmol/L (3.5-5.1) Chloride Level 101 mmol/L (98-107) Carbon Dioxide Level 33 mmol/L (21-32) Anion Gap 5 (6-14) Blood Urea Nitrogen 57 mg/dL (8-26) Creatinine 0.9 mg/dL (0.7-1.3) Estimated GFR (Cockcroft-Gault) 87.3 Glucose Level 298 mg/dL (70-99) Calcium Level 8.5 mg/dL (8.5-10.1) O2 Saturation 94 % (92-99) Arterial Blood pH 7.46 (7.35-7.45) Arterial Blood pCO2 at Patient Temp 45 mmHg (35-46) Arterial Blood pO2 at Patient Temp 74 mmHg (75-108) Arterial Blood HCO3 32 mmol/L (21-28) Arterial Blood Base Excess 7 mmol/L (-3-3) FiO2 50 Microbiology 03/05/19 Blood Culture - Final, Complete NO GROWTH AFTER 5 DAYS 03/08/19 - Final, Complete 03/08/19 - Final, Complete 03/08/19 - Final, Complete 03/08/19 Gram Stain Evaluation - Final, Complete 03/08/19 Sputum Culture - Final, Complete 03/08/19 Sputum Result 1 - Final, Complete 03/02/19 Urine Culture - Final, Complete 03/02/19 Urine Culture Result 1 (LUCIO) - Final, Complete 03/09/19 Aerobic Culture - Final, Complete 03/09/19 Aerobic Culture Result 1 (LUCIO) - Final, Complete 03/09/19 Gram Stain - Final, Complete 03/09/19 Gram Stain Result 1 (LUCIO) - Final, Complete 03/09/19 Gram Stain Result 2 (LUCIO) - Final, Complete Medications Current Medications Ondansetron HCl (Zofran) 4 mg PRN Q8HRS PRN IV NAUSEA/VOMITING; Start 02/27/19 at 16:45; Stop 02/28/19 at 16:44; Status DC Morphine Sulfate (Morphine Sulfate) 2 mg PRN Q2HR PRN IV PAIN; Start 02/27/19 at 16:45; Stop 02/28/19 at 16:44; Status DC Acetaminophen (Tylenol) 650 mg PRN Q4HRS PRN PO FEVER Last administered on 02/27/19at 21:06; Start 02/27/19 at 16:45; Stop 02/28/19 at 16:44; Status DC Dextrose (Dextrose 50%-Water Syringe) 12.5 gm PRN Q15MIN PRN IV SEE COMMENTS; Start 02/27/19 at 16:45; Stop 03/10/19 at 13:48; Status DC Heparin Sodium (Porcine) (Heparin Sodium) 5,000 unit Q8HRS SQ Last administered on 03/30/19at 05:03; Start 02/27/19 at 17:00 Lorazepam (Ativan) 1 mg PRN Q8HRS PRN IV ANXIETY / AGITATION Last administered on 03/08/19at 03:37; Start 02/28/19 at 02:45 Etomidate (Amidate) 20 mg STK-MED ONCE IV ; Start 02/28/19 at 06:59; Stop 02/28/19 at 07:00; Status DC Rocuronium [place] (Zemuron) 50 mg STK-MED ONCE .ROUTE ; Start 02/28/19 at 07:00; Stop 02/28/19 at 09:42; Status DC Dopamine HCl/ Dextrose 250 ml @ 12.266 mls/ hr CONT PRN IV SEE I/O RECORD Last administered on 02/28/19at 08:06; Start 02/28/19 at 07:15; Stop 03/17/19 at 15:50; Status DC Fentanyl Citrate 30 ml @ 0 mls/hr CONT PRN IV SEE PROTOCOL; Start 02/28/19 at 07:15; Stop 02/28/19 at 07:59; Status DC Propofol 100 ml @ 0 mls/hr CONT PRN IV SEE PROTOCOL; Start 02/28/19 at 07:15; Stop 02/28/19 at 07:59; Status DC Fentanyl Citrate (Fentanyl 2ml Vial) 25 mcg PRN Q1HR PRN IV SEE COMMENTS; Start 02/28/19 at 07:15; Stop 02/28/19 at 07:59; Status DC Fentanyl Citrate (Fentanyl 2ml Vial) 50 mcg PRN Q1HR PRN IV SEE COMMENTS; Start 02/28/19 at 07:15; Stop 02/28/19 at 07:59; Status DC Midazolam HCl 100 ml @ 0 mls/hr CONT PRN IV SEE PROTOCOL Last administered on 03/27/19at 11:59; Start 02/28/19 at 07:15 Sodium Chloride 1,000 ml @ 1,000 mls/hr Q1H IV Last administered on 02/28/19at 07:32; Start 02/28/19 at 07:32; Stop 02/28/19 at 10:09; Status DC Fentanyl Citrate (Fentanyl 2ml Vial) 25 mcg PRN Q30MIN PRN IV see comments; Start 02/28/19 at 07:45; Stop 02/28/19 at 09:42; Status DC Lorazepam (Ativan) 1 mg PRN Q30MIN PRN IV SEDATION; Start 02/28/19 at 07:45; Stop 02/28/19 at 09:42; Status DC Fentanyl Citrate 30 ml @ 2.5 mls/hr CONT PRN PRN IV SEE I/O RECORD Last administered on 03/05/19at 03:44; Start 02/28/19 at 07:45; Stop 03/05/19 at 04:40; Status DC Propofol 100 ml @ 0 mls/hr CONT PRN IV SEE I/O RECORD Last administered on 03/30/19at 04:41; Start 02/28/19 at 07:45 Vecuronium [place] (Norcuron Bolus) 10 mg PRN Q30MIN PRN IV SHIVERING; Start 02/28/19 at 07:45; Stop 02/28/19 at 09:42; Status DC Meperidine HCl (Demerol) 12.5 mg PRN Q30MIN PRN IV SHIVERING; Start 02/28/19 at 07:45; Stop 02/28/19 at 09:42; Status DC Multi-Ingred Cream/Lotion/Oil/ Oint (Artificial Tears Eye Ointment) 1 jennifer PRN Q6HRS PRN OU 0.5 INCH FOR DRY EYE; Start 02/28/19 at 07:45; Stop 02/28/19 at 09:42; Status DC Famotidine (Pepcid Vial) 20 mg BID IVP Last administered on 02/28/19at 11:03; Start 02/28/19 at 09:00; Stop 02/28/19 at 14:25; Status DC Aspirin (Aspirin) 300 mg DAILY NV ; Start 02/28/19 at 09:00; Stop 02/28/19 at 09:42; Status DC Sodium Chloride (Normal Saline Flush) 3 ml QSHIFT PRN IV AFTER MEDS AND BLOOD DRAWS; Start 02/28/19 at 07:45 Acetaminophen (Tylenol) 650 mg Q6HRS NG ; Start 02/28/19 at 12:00; Stop 02/28/19 at 12:00; Status DC Acetaminophen (Tylenol Supp) 650 mg PRN Q6HRS PRN NV MILD PAIN / TEMP; Start 03/01/19 at 07:45; Stop 03/01/19 at 07:45; Status DC Acetaminophen (Tylenol) 650 mg PRN Q6HRS PRN NG MILD PAIN / TEMP; Start at 07:45; Stop 03/01/19 at 07:45; Status DC Info (Icu Electrolyte Protocol) 1 ea DAILY PRN MC PER PROTOCOL; Start 03/02/19 a t 07:45; Stop 03/02/19 at 07:45; Status DC Furosemide (Lasix) 60 mg 1X ONCE IVP Last administered on 02/28/19at 08:30; Start 02/28/19 at 08:30; Stop 02/28/19 at 08:31; Status DC Ceftriaxone Sodium (Rocephin) 1 gm Q24H IVP Last administered on 02/28/19at 11:03; Start 02/28/19 at 11:00; Stop 02/28/19 at 11:18; Status DC Calcium Chloride 1000 mg/Dextrose 60 ml @ 120 mls/hr 1X ONCE IV Last administered on 02/28/19at 11:03; Start 02/28/19 at 10:30; Stop 02/28/19 at 10:59; Status DC Meropenem 500 mg/ Sodium Chloride 50 ml @ 100 mls/hr Q8HRS IV Last administered on 03/03/19at 06:24; Start 02/28/19 at 14:00; Stop 03/03/19 at 07:04; Status DC Linezolid/Dextrose 300 ml @ 300 mls/hr Q12HR IV Last administered on 03/03/19at 20:00; Start 02/28/19 at 11:30; Stop 03/04/19 at 08:55; Status DC Micafungin Sodium 100 mg/Dextrose 100 ml @ 100 mls/hr Q24H IV Last administered on 03/04/19at 15:53; Start 02/28/19 at 12:00; Stop 03/05/19 at 06:47; Status DC Furosemide (Lasix) 40 mg [id number] IVP Last administered on 03/02/19at 14:06; Start 02/28/19 at 14:00; Stop 03/02/19 at 17:02; Status DC Famotidine (Pepcid Vial) 20 mg QHS IVP Last administered on 03/01/19at 21:24; Start 02/28/19 at 21:00; Stop 03/02/19 at 10:07; Status DC Albuterol/ Ipratropium (Duoneb) 3 ml RTQID NEB Last administered on 03/30/19at 09:13; Start 02/28/19 at 16:00 Haloperidol Lactate (Haldol Inj) 5 mg PRN Q6HRS PRN IVP AGITATION 2ND CHOICE Last administered on 03/27/19at 18:28; Start 02/28/19 at 15:15 Vecuronium [place] (Norcuron Bolus) 8 mg PRN Q4HRS PRN IV MUSCLE SPASMS Last administered on 03/12/19at 23:48; Start 02/28/19 at 15:15 Perflutren Protein Type A Microsphe (Optison) 0.66 mg PRN 1X PRN IV SEE COMMENTS; Start 03/01/19 at 10:00; Stop 03/02/19 at 09:59; Status DC Digoxin (Lanoxin) 125 mcg 1X STAT IV ; Start 03/01/19 at 15:34; Stop 03/01/19 at 16:00; Status DC Sodium Chloride 500 ml @ 500 mls/hr 1X ONCE IV Last administered on 03/01/19at 18:46; Start 03/01/19 at 18:45; Stop 03/01/19 at 19:44; Status DC Famotidine (Pepcid Vial) 20 mg Q12HR IVP Last administered on 03/30/19at 08:11; Start 03/02/19 at 21:00 Furosemide (Lasix) 40 mg DAILY IVP Last administered on 03/04/19 09:52; Start 03/03/19 at 09:00; Stop 03/04/19 at 12:13; Status DC Acetaminophen (Tylenol Supp) 650 mg PRN Q6HRS PRN NV MILD PAIN / TEMP Last administered on 03/03/19 17:39; Start 03/02/19 at 17:15 Meropenem 500 mg/ Sodium Chloride 50 ml @ 100 mls/hr Q6HRS IV Last administered on 03/05/19 05:33; Start 03/03/19 at 12:00; Stop 03/05/19 at 06:47; Status DC Albumin Human 100 ml @ 100 mls/hr 1X ONCE IV Last administered on 03/03/19 08:52; Start 03/03/19 at 08:30; Stop 03/03/19 at 09:29; Status DC Atropine Sulfate (ATROPINE 0.5mg SYRINGE) 2 mg STK-MED ONCE .ROUTE ; Start 02/27/19 at 16:21; Stop 03/03/19 at 16:22; Status DC Dopamine HCl/ Dextrose (DOPamine 400MG/ 250ML PREMIX) 400 mg STK-MED ONCE IV ; Start 02/27/19 at 16:21; Stop 03/03/19 at 16:22; Status DC Furosemide (Lasix) 40 mg 1X ONCE IVP Last administered on 03/03/19at 18:46; Start 03/03/19 at 18:45; Stop 03/03/19 at 18:46; Status DC Lorazepam 100 mg/ Sodium Chloride 100 ml @ 0 mls/hr CONT PRN IV SEE PROTOCOL Last administered on 03/03/19 22:18; Start 03/03/19 at 22:00; Stop 03/17/19 at 15:39; Status DC Acetaminophen (Tylenol) 650 mg PRN Q6HRS PRN PEG MILD PAIN / TEMP Last administered on 03/10/19 20:48; Start 03/04/19 at 11:45 Furosemide (Lasix) 40 mg [id number] IVP Last administered on 03/06/19 08:38; Start 03/04/19 at 14:00; Stop 03/06/19 at 13:30; Status DC Fentanyl Citrate 30 ml @ 0 mls/hr CONT PRN IV SEE PROTOCOL Last administered on 03/30/19 04:33; Start 03/05/19 at 04:45 Cefepime HCl (Maxipime) 2 gm Q8HRS IVP Last administered on 03/10/19 05:43; Start 03/05/19 at 06:45; Stop 03/10/19 at 08:29; Status DC Metronidazole 100 ml @ 100 mls/hr Q8HRS IV Last administered on 03/10/19 05:45; Start 03/05/19 at 06:45; Stop 03/10/19 at 08:29; Status DC Linezolid/Dextrose 300 ml @ 300 mls/hr Q12HR IV Last administered on 03/05/19 21:24; Start 03/05/19 at 09:00; Stop 03/06/19 at 06:42; Status DC Metoclopramide HCl (Reglan Vial) 10 mg QIDACHS IV Last administered on 03/06/19 20:43; Start 03/05/19 at 11:30; Stop 03/07/19 at 07:37; Status DC Insulin Glargine (Lantus) 12 units BID SQ Last administered on 03/09/19 09:29; Start 03/05/19 at 09:00; Stop 03/09/19 at 17:11; Status DC Digoxin (Lanoxin) 500 mcg 1X ONCE IV Last administered on 03/06/19 00:48; Start 03/06/19 at 00:45; Stop 03/06/19 at 00:46; Status DC Metoprolol Tartrate (Lopressor Vial) 5 mg 1X ONCE IVP Last administered on 03/06/19 00:53; Start 03/06/19 at 00:45; Stop 03/06/19 at 00:46; Status DC Sodium Chloride 500 ml @ 500 mls/hr 1X ONCE IV Last administered on 03/06/19 00:49; Start 03/06/19 at 00:45; Stop 03/06/19 at 01:44; Status DC Nystatin (Mycostatin) 1 jennifer BID TP Last administered on 03/30/19 08:11; Start 03/06/19 at 09:00 Sodium Cl/Sod Bicarb/Potass Cl/ PEG (Golytely) 2,000 ml 1X ONCE PO Last administered on 03/06/19 09:33; Start 03/06/19 at 08:00; Stop 03/06/19 at 08:01; Status DC Furosemide (Lasix) 40 mg DAILY08 IVP Last administered on 03/09/19 09:27; Start 03/07/19 at 08:00; Stop 03/09/19 at 12:45; Status DC Metoprolol Tartrate (Lopressor Vial) 10 mg 1X ONCE IVP Last administered on 03/06/19 16:08; Start 03/06/19 at 15:15; Stop 03/06/19 at 15:16; Status DC Metoprolol Tartrate (Lopressor Vial) 5 mg Q6HRS IVP Last administered on 17:03; Start 03/06/19 at 18:00; Stop 03/07/19 at 18:27; Status DC Aspirin (Children'S Aspirin) 81 mg 1X ONCE PO Last administered on 03/06/19 18:18; Start 03/06/19 at 17:00; Stop 03/06/19 at 17:01; Status DC Aspirin (Children'S Aspirin) 81 mg DAILYWBKFT PO Last administered on 03/30/19 08:11; Start 03/07/19 at 08:00 Labetalol HCl (Normodyne Iv Push) 20 mg PRN Q2HR PRN IVP HYPERTENSION, SEE COMMENTS Last administered on 03/06/19 21:29; Start 03/06/19 at 17:15 Digoxin (Lanoxin) 250 mcg 1X ONCE IV Last administered on 03/06/19 22:00; Start 03/06/19 at 22:00; Stop 03/06/19 at 22:01; Status DC Diltiazem HCl 125 mg/Dextrose 125 ml @ 5 mls/hr CONT PRN IV SEE I/O RECORD Last administered on 4/11/19at 08:20; Start 03/06/19 at 23:00; Stop 03/12/19 at 11:03; Status DC Metoclopramide HCl (Reglan Vial) 10 mg Q6HRS IV ; Start 03/07/19 at 08:00; Stop 03/08/19 at 07:51; Status DC Metoprolol Tartrate (Lopressor Vial) 5 mg Q6HRS IVP Last administered on 03/30/19at 05:04; Start 03/08/19 at 12:00 Furosemide (Lasix) 40 mg 1X ONCE IVP Last administered on 03/08/19at 21:21; Start 03/08/19 at 21:00; Stop 03/08/19 at 21:01; Status DC Furosemide (Lasix) 20 mg DAILY08 IVP ; Start 03/10/19 at 08:00; Stop 03/10/19 at 08:00; Status DC Furosemide (Lasix) 20 mg DAILY08 IVP Last administered on 03/14/19at 07:41; Start 03/10/19 at 08:00; Stop 03/15/19 at 07:32; Status DC Insulin Glargine (Lantus) 16 units BID SQ Last administered on 03/12/19at 00:09; Start 03/09/19 at 21:00; Stop 03/12/19 at 07:18; Status DC Insulin Human Lispro (HumaLOG) 0-9 UNITS Q6HRS SQ Last administered on 03/12/19at 05:45; Start 03/09/19 at 18:00; Stop 03/12/19 at 07:18; Status DC Dextrose (Dextrose 50%-Water Syringe) 12.5 gm PRN Q15MIN PRN IV SEE COMMENTS; Start 03/09/19 at 17:15; Stop 03/21/19 at 10:07; Status DC Cefepime HCl (Maxipime) 2 gm Q12HR IVP Last administered on 03/21/19at 08:26; Start 03/10/19 at 21:00; Stop 03/21/19 at 12:48; Status DC Insulin Human Lispro (HumaLOG) 15 units 1X ONCE SQ Last administered on 03/11/19at 00:14; Start 03/11/19 at 00:00; Stop 03/11/19 at 00:01; Status DC Insulin Glargine (Lantus) 20 units BID SQ Last administered on 03/17/19at 08:32; Start 03/12/19 at 09:00; Stop 03/17/19 at 10:46; Status DC Insulin Human Lispro (HumaLOG) 0-9 UNITS Q6HRS SQ Last administered on 03/21/19at 06:35; Start 03/12/19 at 12:00; Stop 03/21/19 at 10:00; Status DC Diltiazem HCl (Cardizem) 30 mg Q6HRS PO Last administered on 03/26/19at 05:46; Start 03/12/19 at 12:00; Stop 03/26/19 at 13:47; Status DC Furosemide (Lasix) 20 mg 1X ONCE IVP Last administered on 03/13/19at 11:04; Start 03/13/19 at 10:30; Stop 03/13/19 at 10:31; Status DC Furosemide (Lasix) 20 mg 1X ONCE IVP Last administered on 03/14/19at 07:40; Start 03/14/19 at 07:15; Stop 03/14/19 at 14:05; Status DC Furosemide (Lasix) 40 mg Q8HRS IVP Last administered on 03/17/19at 05:49; Start 03/14/19 at 22:00; Stop 03/17/19 at 10:58; Status DC Albuterol Sulfate (Ventolin Neb Soln) 2.5 mg 1X ONCE NEB Last administered on 03/16/19at 04:00; Start 03/16/19 at 04:00; Stop 03/16/19 at 04:01; Status DC Methylprednisolone Sodium Succinate (SOLU-Medrol 40MG VIAL) 80 mg 1X ONCE IV Last administered on 03/16/19at 04:17; Start 03/16/19 at 04:30; Stop 03/16/19 at 04:31; Status DC Furosemide (Lasix) 20 mg 1X ONCE IVP Last administered on 03/16/19at 04:17; S tart 03/16/19 at 04:30; Stop 03/16/19 at 04:31; Status DC Insulin Glargine (Lantus) 25 units BID SQ Last administered on 03/21/19at 08:55; Start 03/17/19 at 21:00; Stop 03/21/19 at 10:00; Status DC Insulin Human Lispro (HumaLOG) 10 units Q6HRS SQ ; Start 03/17/19 at 12:00; Stop 03/17/19 at 13:32; Status DC Furosemide (Lasix) 40 mg QD IVP Last administered on 03/18/19at 05:55; Start 03/18/19 at 06:00; Stop 03/18/19 at 10:54; Status DC Insulin Human Lispro (HumaLOG) 3 units Q6HRS SQ Last administered on 03/19/19at 06:12; Start 03/17/19 at 18:00; Stop 03/19/19 at 08:28; Status DC Azithromycin 250 mg/Sodium Chloride 250 ml @ 250 mls/hr Q24H IV Last administered on 03/23/19at 08:13; Start 03/18/19 at 08:00; Stop 03/23/19 at 16:23; Status DC Alteplase, Recombinant (Cathflo For Central Catheter Clearance) 1 mg 1X ONCE INT CAT Last administered on 03/18/19at 09:21; Start 03/18/19 at 07:30; Stop 03/18/19 at 07:31; Status DC Alteplase, Recombinant (Cathflo For Central Catheter Clearance) 1 mg 1X ONCE INT CAT Last administered on 03/18/19at 11:04; Start 03/18/19 at 07:30; Stop 03/18/19 at 07:31; Status DC Alteplase, Recombinant (Cathflo For Central Catheter Clearance) 1 mg 1X ONCE INT CAT Last administered on 03/18/19at 13:26; Start 03/18/19 at 07:30; Stop at 07:31; Status DC Furosemide (Lasix) 60 mg 1X ONCE IVP Last administered on 03/18/19at 11:04; Start 03/18/19 at 10:54; Stop 03/18/19 at 10:55; Status DC Furosemide (Lasix) 40 mg Q8HRS IVP ; Start 03/18/19 at 14:00; Stop 03/18/19 at 17:53; Status DC Digoxin (Lanoxin) 250 mcg 1X ONCE IV Last administered on 03/18/19at 15:48; Start 03/18/19 at 15:30; Stop 03/18/19 at 15:33; Status DC Furosemide (Lasix) 40 mg Q8HRS IVP Last administered on 03/20/19at 05:42; Start 03/18/19 at 20:00; Stop 03/20/19 at 08:48; Status DC Digoxin (Lanoxin) 500 mcg 1X ONCE IV Last administered on 03/18/19at 19:35; Start 03/18/19 at 20:00; Stop 03/18/19 at 20:01; Status DC Insulin Human Lispro (HumaLOG) 6 units Q6HRS SQ Last administered on 03/20/19at 05:45; Start 03/19/19 at 12:00; Stop 03/20/19 at 08:48; Status DC Furosemide (Lasix) 80 mg Q8HRS IVP Last administered on 03/22/19at 12:43; Start 03/20/19 at 14:00; Stop 03/22/19 at 17:00; Status DC Insulin Human Lispro (HumaLOG) 9 units Q6HRS SQ Last administered on 03/21/19at 06:36; Start 03/20/19 at 12:00; Stop 03/21/19 at 10:00; Status DC Methylprednisolone Sodium Succinate (SOLU-Medrol 125MG VIAL) 80 mg Q8HRS IV Last administered on 03/30/19at 05:03; Start 03/20/19 at 11:00 Alteplase, Recombinant (Cathflo For Central Catheter Clearance) 1 mg 1X ONCE INT CAT Last administered on 03/20/19at 20:23; Start 03/20/19 at 20:00; Stop 03/20/19 at 20:09; Status DC Alteplase, Recombinant (Cathflo For Central Catheter Clearance) 1 mg 1X ONCE INT CAT Last administered on 03/20/19at 20:23; Start 03/20/19 at 20:00; Stop 03/20/19 at 20:09; Status DC Alteplase, Recombinant (Cathflo For Central Catheter Clearance) 1 mg 1X ONCE INT CAT Last administered on 03/20/19at 20:23; Start 03/20/19 at 20:00; Stop 03/20/19 at 20:09; Status DC Insulin Human Regular 150 unit/ Sodium Chloride 151.5 ml @ 0 mls/hr CONT PRN IV SEE I/O RECORD Last administered on 03/28/19 14:54; Start 03/21/19 at 10:00; Stop 03/29/19 at 08:46; Status DC Dextrose (Dextrose 50%-Water Syringe) 12.5 gm PRN Q15MIN PRN IV LOW BLOOD SUGAR; Start 03/21/19 at 10:00 Furosemide (Lasix) 80 mg DAILY06 IVP Last administered on 03/30/19 05:01; Start 03/23/19 at 06:00 Potassium Chloride (KCl Oral Soln) 40 meq 1X ONCE PEG Last administered on 03/22/19at 17:14; Start 03/22/19 at 17:30; Stop 03/22/19 at 17:31; Status DC Metoclopramide HCl (Reglan Vial) 10 mg PRN Q6HRS PRN IV NAUSEA/VOMITING Last administered on 03/24/19 11:02; Start 03/23/19 at 10:30; Stop 03/24/19 at 11:04; Status DC Dextrose 1,000 ml @ 125 mls/hr Q8H IV Last administered on 03/29/19at 05:02; Start 03/23/19 at 11:15; Stop 03/29/19 at 08:46; Status DC Potassium Chloride (KCl Oral Soln) 40 meq 1X ONCE PEG Last administered on 03/24/19 10:32; Start 03/24/19 at 08:30; Stop 03/24/19 at 08:31; Status DC Metoclopramide HCl (Reglan Vial) 10 mg Q8HRS IV Last administered on 03/30/19at 04:33; Start 03/24/19 at 14:00 Insulin Glargine (Lantus) 10 units BID SQ Last administered on 03/26/19 20:56; Start 03/24/19 at 21:00; Stop 03/27/19 at 09:37; Status DC Potassium Chloride (KCl Oral Soln) 40 meq 1X ONCE PEG Last administered on 03/25/19at 08:50; Start 03/25/19 at 08:15; Stop 03/25/19 at 08:16; Status DC Potassium Chloride (KCl Oral Soln) 40 meq BID PEG Last administered on 03/26/19at 09:15; Start 03/25/19 at 10:00; Stop 03/26/19 at 13:47; Status DC Fentanyl Citrate (Fentanyl 2ml Vial) 25 mcg PRN Q5MIN PRN IV MILD PAIN; Start 03/26/19 at 07:00; Stop 03/27/19 at 06:59; Status DC Fentanyl Citrate (Fentanyl 2ml Vial) 50 mcg PRN Q5MIN PRN IV MODERATE TO SEVERE PAIN; Start 03/26/19 at 07:00; Stop 03/27/19 at 06:59; Status DC Morphine Sulfate (Morphine Sulfate) 1 mg PRN Q10MIN PRN IV SEVERE PAIN; Start 03/26/19 at 07:00; Stop 03/27/19 at 06:59; Status DC Ringer's Solution 1,000 ml @ 30 mls/hr Q24H IV ; Start 03/26/19 at 07:00; Stop 03/26/19 at 18:59; Status DC Lidocaine HCl (Xylocaine-Mpf 1% 2ml Vial) 2 ml PRN 1X PRN ID PRIOR TO IV START; Start 03/26/19 at 07:00; Stop 03/27/19 at 06:59; Status DC Hydromorphone HCl (Dilaudid) 0.5 mg PRN Q10MIN PRN IV SEV PAIN, Second choice; Start 03/26/19 at 07:00; Stop 03/27/19 at 06:59; Status DC Potassium Chloride 30 meq/ Sodium Chloride 1,015 ml @ 75 mls/hr 1X ONCE IV Last administered on 03/25/19at 13:21; Start 03/25/19 at 12:15; Stop 03/26/19 at 01:46; Status DC Rocuronium [place] (Zemuron) 50 mg STK-MED ONCE .ROUTE ; Start 03/26/19 at 11:47; Stop 03/26/19 at 11:48; Status DC Fentanyl Citrate (Fentanyl 2ml Vial) 100 mcg STK-MED ONCE .ROUTE ; Start 03/26/19 at 12:31; Stop 03/26/19 at 12:32; Status DC Cefazolin Sodium/ Dextrose 50 ml @ As Directed STK-MED ONCE IV ; Start 03/26/19 at 11:38; Stop 03/26/19 at 12:38; Status DC Rocuronium [place] (Zemuron) 50 mg STK-MED ONCE .ROUTE ; Start 03/26/19 at 12:54; Stop 03/26/19 at 12:55; Status DC Metoprolol Tartrate (Lopressor Vial) 10 mg Q6HRS IVP ; Start 03/26/19 at 18:00; Stop 03/26/19 at 18:16; Status DC Fentanyl Citrate (Fentanyl 2ml Vial) 25 mcg PRN Q5MIN PRN IV MILD PAIN; Start 03/27/19 at 07:00; Stop 03/28/19 at 06:59; Status DC Fentanyl Citrate (Fentanyl 2ml Vial) 50 mcg PRN Q5MIN PRN IV MODERATE TO SEVERE PAIN; Start 03/27/19 at 07:00; Stop 03/28/19 at 06:59; Status DC Morphine Sulfate (Morphine Sulfate) 1 mg PRN Q10MIN PRN IV SEVERE PAIN; Start 03/27/19 at 07:00; Stop 03/28/19 at 06:59; Status DC Ringer's Solution 1,000 ml @ 30 mls/hr Q24H IV ; Start 03/27/19 at 07:00; Stop 03/27/19 at 18:59; Status DC Hydromorphone HCl (Dilaudid) 0.5 mg PRN Q10MIN PRN IV SEV PAIN, Second choice; Start 03/27/19 at 07:00; Stop 03/28/19 at 06:59; Status DC Midazolam HCl (Versed) 2 mg PRN 1X PRN IV PRIOR TO PROCEDURE; Start 03/27/19 at 07:15; Stop 03/27/19 at 18:00; Status DC Fentanyl Citrate (Fentanyl 2ml Vial) 25 mcg PRN Q5MIN PRN IV X 2 DOSES FOR PAIN; Start 03/27/19 at 07:15; Stop 03/27/19 at 18:00; Status DC Fentanyl Citrate (Fentanyl 2ml Vial) 50 mcg PRN Q5MIN PRN IV X 2 DOSES FOR PAIN; Start 03/27/19 at 07:15; Stop 03/27/19 at 18:00; Status DC Ringer's Solution 1,000 ml @ 125 mls/hr Q8H IV ; Start 03/27/19 at 07:06; Stop 03/27/19 at 19:05; Status DC Lidocaine HCl (Xylocaine-Mpf 1% 2ml Vial) 2 ml 1X PRN PRN ID IV START; Start 03/27/19 at 07:15; Stop 03/27/19 at 18:00; Status DC Insulin Glargine (Lantus) 30 units BID SQ Last administered on 03/30/19at 08:15; Start 03/27/19 at 21:00 Cefazolin Sodium 50 ml @ 100 mls/hr 1X ONCE IV Last administered on 03/27/19at 11:19; Start 03/27/19 at 11:00; Stop 03/27/19 at 11:29; Status DC Digoxin (Lanoxin) 500 mcg 1X ONCE IV Last administered on 03/28/19at 16:24; Start 03/28/19 at 16:15; Stop 03/28/19 at 16:17; Status DC Insulin Human Lispro (HumaLOG) 0-7 UNITS TIDWMEALS SQ Last administered on 03/30/19at 08:16; Start 03/30/19 at 08:00 Dextrose (Dextrose 50%-Water Syringe) 12.5 gm PRN Q15MIN PRN IV SEE COMMENTS; Start 03/29/19 at 17:15 Amiodarone HCl 150 mg/Dextrose 103 ml @ 618 mls/hr 1X ONCE IV Last administered on 03/29/19at 19:41; Start 03/29/19 at 19:30; Stop 03/29/19 at 19:39; Status DC Amiodarone HCl 900 mg/Dextrose 518 ml @ 17 mls/hr CONT PRN IV SEE I/O RECORD Last administered on 03/29/19at 19:41; Start 03/29/19 at 20:00; Stop 03/29/19 at 20:00; Status DC Amiodarone HCl (Cordarone) 200 mg DAILY PO ; Start 03/30/19 at 09:00 Active Scripts Active Reported Proair Hfa Inhaler (Albuterol Sulfate) 8.5 Gm Hfa.aer.ad 1 Puff INH PRN Q6HRS PRN Lantus Solostar (Insulin Glargine,Hum.rec.anlog) 100 Unit/1 Ml Insuln.pen 20 Unit SQ QHS Humalog (Insulin Lispro) 100 Unit/1 Ml Cartridge 6 Unit SQ TIDWMEALS Doxazosin Mesylate 2 Mg Tablet 2 Mg PO DAILY Omeprazole 40 Mg Capsule.dr 40 Mg PO DAILY Amlodipine Besylate 10 Mg Tablet 10 Mg PO DAILY Atorvastatin Calcium 20 Mg Tablet 20 Mg PO DAILY Atenolol 50 Mg Tablet 50 Mg PO DAILY Losartan Potassium 100 Mg Tablet 100 Mg PO DAILY Aspirin 81 Mg Tab.chew 81 Mg PO DAILY Glyburide 5 Mg Tablet 1 Tab PO BID Vitals/I & O Vital Sign - Last 24 Hours 03/29/19 03/29/19 03/29/19 03/29/19 10:53 11:00 11:25 12:00 Temp 97.9 97.9 Pulse 58 57 Resp 16 18 17 B/P (MAP) 115/72 (86) 137/73 (94) Pulse Ox 97 97 97 O2 Delivery Ventilator Ventilator Ventilator Ventilator 03/29/19 03/29/19 03/29/19 03/29/19 12:00 12:37 13:00 13:11 Pulse 62 62 Resp 17 B/P (MAP) 140/77 (98) 140/77 Pulse Ox 97 97 O2 Delivery Mechanical Ventilator Ventilator Ventilator 03/29/19 03/29/19 03/29/19 03/29/19 14:00 15:00 15:05 16:00 Temp 97.9 97.9 Pulse 66 67 Resp 19 18 B/P (MAP) 150/71 (97) 151/79 (103) Pulse Ox 92 92 92 O2 Delivery Ventilator Ventilator Ventilator Mechanical Ventilator 03/29/19 03/29/19 03/29/19 03/29/19 16:00 17:00 17:05 17:28 Pulse 73 82 82 Resp 20 20 B/P (MAP) 141/71 (94) 140/74 (96) 140/74 Pulse Ox 93 94 94 O2 Delivery Ventilator Ventilator Ventilator 03/29/19 03/29/19 03/29/19 03/29/19 18:00 19:00 19:41 19:56 Pulse 75 70 76 Resp 20 16 B/P (MAP) 157/75 (102) 145/80 (101) 145/80 Pulse Ox 94 94 96 O2 Delivery Ventilator Ventilator Ventilator 03/29/19 03/29/19 03/29/19 03/29/19 20:00 20:00 20:13 21:00 Temp 98.5 98.5 Pulse 78 86 Resp 18 19 26 B/P (MAP) 154/78 (103) 159/76 (103) Pulse Ox 96 94 95 O2 Delivery Ventilator Mechanical Ventilator Ventilator Ventilator 03/29/19 03/29/19 03/29/19 03/29/19 22:00 23:00 23:28 23:50 Pulse 87 67 83 Resp 23 23 B/P (MAP) 150/70 (96) 148/59 (88) 148/69 Pulse Ox 94 94 94 O2 Delivery Ventilator Ventilator Ventilator 03/30/19 03/30/19 03/30/19 03/30/19 00:00 00:00 01:00 02:00 Temp 98.6 98.6 Pulse 68 72 70 Resp 15 23 17 B/P (MAP) 135/70 (91) 162/80 (107) 151/72 (98) Pulse Ox 94 94 95 O2 Delivery Mechanical Ventilator Ventilator Ventilator Ventilator 03/30/19 03/30/19 03/30/19 03/30/19 02:55 03:00 04:00 04:00 Temp 98.4 98.4 Pulse 72 82 Resp 19 23 B/P (MAP) 151/71 (97) 175/81 (112) Pulse Ox 95 95 92 O2 Delivery Ventilator Ventilator Mechanical Ventilator Ventilator 03/30/19 03/30/19 03/30/19 03/30/19 04:33 05:00 05:04 05:18 Pulse 82 82 Resp 21 B/P (MAP) 162/71 (101) 162/71 Pulse Ox 95 93 95 O2 Delivery Ventilator Ventilator O2 Flow Rate 40.0 03/30/19 03/30/19 03/30/19 03/30/19 05:52 06:00 08:00 09:14 Pulse 68 Resp 26 16 B/P (MAP) 160/78 (105) Pulse Ox 98 95 95 O2 Delivery Ventilator Mechanical Ventilator Ventilator Intake and Output 03/29/19 03/29/19 03/30/19 15:00 23:00 07:00 Intake Total 790 ml 1683 ml 2049.74 ml Output Total 3735 ml 1220 ml 1395 ml Balance -2945 ml 463 ml 654.74 ml YRIS RUIZ MD Mar 30, 2019 10:32
[2019-03-30] MEDS: hydrALAZINE 20 MG/ML VIAL. IVP PRN (10:59)
--- NOTE | 2019-03-30 11:25 | PDOC ---
Objective: Objective: D/w RNs - residual ~250cc this morning, feeds held w/ plans to restart later. Vital Signs: Vital Signs Date Time Temp Pulse Resp B/P (MAP) Pulse Ox O2 Delivery O2 Flow Rate FiO2 03/30/19 11:00 78 16 174/78 (110) 95 Ventilator 03/30/19 10:56 40.0 03/30/19 07:00 98.6 98.6 Labs: Laboratory Tests Test 03/29/19 12:26 03/29/19 14:14 03/29/19 15:18 03/29/19 17:24 Glucose (Fingerstick) 155 mg/dL 135 mg/dL 127 mg/dL 164 mg/dL Test 03/29/19 20:16 03/30/19 04:46 03/30/19 04:50 03/30/19 09:15 Glucose (Fingerstick) 184 mg/dL 272 mg/dL Sodium Level 139 mmol/L Potassium Level 4.7 mmol/L Chloride Level 101 mmol/L Carbon Dioxide Level 33 mmol/L Anion Gap 5 Blood Urea Nitrogen 57 mg/dL Creatinine 0.9 mg/dL Estimated GFR (Cockcroft-Gault) 87.3 Glucose Level 298 mg/dL Calcium Level 8.5 mg/dL O2 Saturation 94 % Arterial Blood pH 7.46 Arterial Blood pCO2 at Patient Temp 45 mmHg Arterial Blood pO2 at Patient Temp 74 mmHg Arterial Blood HCO3 32 mmol/L Arterial Blood Base Excess 7 mmol/L FiO2 50 Imaging: CXR 03/30 IMPRESSION: Worsening moderate bilateral pulmonary infiltrates. PE: GEN: NAD LUNGS: trach/vent HEART: RRR ABD: PEG in place - site clean, BS+, non-tender, rectal tube w/ brown stool NEURO/PSYCH: awake/alert, nods yes/no A/P: Resp failure s/ trach and PEG HTN -- Some elevated residuals though apparently an issue prior to PEG placement w/ OG - improved overall, no pain, good BS, stooling (rectal tube). Monitor. RJ MOFFETT Mar 30, 2019 11:25
--- NOTE | 2019-03-30 15:03 | NUR ---
MELVIN following up with pt dc plan. Per Grecia with [facility] request, MELVIN phoned and faxed clinical updates, phone: [phone], fax: [phone]. MELVIN will continue to follow.
[2019-03-31] VITALS (23 sets, daily range): BP systolic 134–186; BP diastolic 59–86
[2019-03-31] MEDS: METOPROLOL TARTRATE 5 MG/5 ML VIAL. IVP SCH ×4 (00:12→17:50)
[2019-03-31] MEDS: PROPOFOL 100 ML IV PRN ×4 (00:14→21:41)
[2019-03-31] MEDS: METOCLOPRAMIDE HCL 10 MG/2 ML VIAL. IV SCH ×3 (05:37→21:43)
[2019-03-31] MEDS: FUROSEMIDE 100 MG/10 ML VIAL. IVP SCH (05:37)
[2019-03-31] MEDS: methylPREDNISolone SOD SUCC PF 125 MG/2 ML VIAL. IV SCH ×3 (06:00→21:42)
[2019-03-31] MEDS: HEPARIN for SUB-Q USE 5,000 UNIT/ML VIAL. SQ SCH ×3 (06:07→21:45)
[2019-03-31] MEDS: IPRATRPIUM/ALBUTEROL 0.5/2.5MG 3 ML NEBU. NEB SCH ×4 (07:49→19:46)
--- NOTE | 2019-03-31 08:06 | RAD ---
Portable chest, 03/31/2019: HISTORY: Respiratory failure Comparison is made yesterday study. The tracheostomy tube and right PICC are unchanged in positions. The heart size is unchanged. There are ongoing diffuse pulmonary infiltrates with poor definition of the underlying vascularity. There has been no improvement since yesterday study. There is probably pleural fluid contributing to the basilar opacities. The findings suggest pulmonary edema, although pneumonia and ARDS are also possibilities. No new abnormality is detected. IMPRESSION: Unchanged moderate bilateral pulmonary infiltrates. Electronically signed by: Moose Astorga MD (03/31/2019 8:02 AM) [facility]
[2019-03-31] MEDS: ASPIRIN CHEWABLE 81 MG TABLET. PO SCH (08:44)
[2019-03-31] MEDS: FAMOTIDINE 20 MG/2 ML VIAL IVP SCH ×2 (08:45→21:40)
[2019-03-31] MEDS: NYSTATIN 100,000 UNIT/GM TOPICAL CREAM 15GM TUBE. TP SCH ×2 (08:45→21:41)
[2019-03-31] MEDS: AMIODARONE HCL 200 MG TABLET. PO SCH (08:46)
[2019-03-31] MEDS: INSULIN LISPRO 300 UNITS/3 ML INSULN.PEN. SQ SCH ×4 (08:52→16:46)
[2019-03-31] MEDS: INSULIN GLARGINE 300 UNITS/3 ML INSULN.PEN. SQ SCH ×2 (09:05→21:46)
--- NOTE | 2019-03-31 09:17 | PDOC ---
PULMONARY PROGRESS NOTES Subjective FOLLOW COMMANDS Vitals Vital Signs Date Time Temp Pulse Resp B/P (MAP) Pulse Ox O2 Delivery O2 Flow Rate FiO2 03/31/19 07:50 92 Ventilator 03/31/19 06:00 61 16 173/76 (108) 03/31/19 04:00 98.4 98.4 03/30/19 17:14 40.0 HEENT: Other (TRACH 03/26) Lungs: Crackles Cardiovascular: S1, S2 Abdomen: Soft, Non-tender Extremities: Other (venous stasis and edema left, right BKA) Skin: Warm, Dry Labs Laboratory Tests Test 03/29/19 09:47 03/29/19 12:26 03/29/19 14:14 03/29/19 15:18 Glucose (Fingerstick) 136 mg/dL (70-99) 155 mg/dL (70-99) 135 mg/dL (70-99) 127 mg/dL (70-99) Test 03/29/19 17:24 03/29/19 20:16 03/30/19 04:46 03/30/19 04:50 Glucose (Fingerstick) 164 mg/dL (70-99) 184 mg/dL (70-99) 272 mg/dL (70-99) Sodium Level 139 mmol/L (136-145) Potassium Level 4.7 mmol/L (3.5-5.1) Chloride Level 101 mmol/L (98-107) Carbon Dioxide Level 33 mmol/L (21-32) Anion Gap 5 (6-14) Blood Urea Nitrogen 57 mg/dL (8-26) Creatinine 0.9 mg/dL (0.7-1.3) Estimated GFR (Cockcroft-Gault) 87.3 Glucose Level 298 mg/dL (70-99) Calcium Level 8.5 mg/dL (8.5-10.1) Test 03/30/19 09:15 03/30/19 13:29 03/30/19 17:17 03/30/19 21:41 O2 Saturation 94 % (92-99) Arterial Blood pH 7.46 (7.35-7.45) Arterial Blood pCO2 at Patient Temp 45 mmHg (35-46) Arterial Blood pO2 at Patient Temp 74 mmHg (75-108) Arterial Blood HCO3 32 mmol/L (21-28) Arterial Blood Base Excess 7 mmol/L (-3-3) FiO2 50 Glucose (Fingerstick) 273 mg/dL (70-99) 239 mg/dL (70-99) 303 mg/dL (70-99) Laboratory Tests Test 03/30/19 13:29 03/30/19 17:17 03/30/19 21:41 Glucose (Fingerstick) 273 mg/dL (70-99) 239 mg/dL (70-99) 303 mg/dL (70-99) Medications Active Scripts Medications Dose Route/Sig Max Daily Dose Days Date Category Proair Hfa Inhaler (Albuterol Sulfate) 8.5 Gm Hfa.aer.ad 1 Puff INH PRN Q6HRS PRN 02/27/19 Reported Lantus Solostar (Insulin Glargine,Hum.rec.anlog) 100 Unit/1 Ml Insuln.pen 20 Unit SQ QHS 02/27/19 Reported Humalog (Insulin Lispro) 100 Unit/1 Ml Cartridge 6 Unit SQ TIDWMEALS 02/27/19 Reported Doxazosin Mesylate 2 Mg Tablet 2 Mg PO DAILY 02/27/19 Reported Omeprazole 40 Mg Capsule.dr 40 Mg PO DAILY 02/27/19 Reported Amlodipine Besylate 10 Mg Tablet 10 Mg PO DAILY 02/27/19 Reported Atorvastatin Calcium 20 Mg Tablet 20 Mg PO DAILY 02/27/19 Reported Atenolol 50 Mg Tablet 50 Mg PO DAILY 02/27/19 Reported Losartan Potassium 100 Mg Tablet 100 Mg PO DAILY 02/27/19 Reported Aspirin 81 Mg Tab.chew 81 Mg PO DAILY 02/27/19 Reported Glyburide 5 Mg Tablet 1 Tab PO BID 11/09/16 Reported Active Scripts Medications Dose Route/Sig Max Daily Dose Days Date Category Proair Hfa Inhaler (Albuterol Sulfate) 8.5 Gm Hfa.aer.ad 1 Puff INH PRN Q6HRS PRN 02/27/19 Reported Lantus Solostar (Insulin Glargine,Hum.rec.anlog) 100 Unit/1 Ml Insuln.pen 20 Unit SQ QHS 02/27/19 Reported Humalog (Insulin Lispro) 100 Unit/1 Ml Cartridge 6 Unit SQ TIDWMEALS 02/27/19 Reported Doxazosin Mesylate 2 Mg Tablet 2 Mg PO DAILY 02/27/19 Reported Omeprazole 40 Mg Capsule.dr 40 Mg PO DAILY 02/27/19 Reported Amlodipine Besylate 10 Mg Tablet 10 Mg PO DAILY 02/27/19 Reported Atorvastatin Calcium 20 Mg Tablet 20 Mg PO DAILY 02/27/19 Reported Atenolol 50 Mg Tablet 50 Mg PO DAILY 02/27/19 Reported Losartan Potassium 100 Mg Tablet 100 Mg PO DAILY 02/27/19 Reported Aspirin 81 Mg Tab.chew 81 Mg PO DAILY 02/27/19 Reported Glyburide 5 Mg Tablet 1 Tab PO BID 11/09/16 Reported Active Scripts Medications Dose Route/Sig Max Daily Dose Days Date Category Proair Hfa Inhaler (Albuterol Sulfate) 8.5 Gm Hfa.aer.ad 1 Puff INH PRN Q6HRS PRN 02/27/19 Reported Lantus Solostar (Insulin Glargine,Hum.rec.anlog) 100 Unit/1 Ml Insuln.pen 20 Unit SQ QHS 02/27/19 Reported Humalog (Insulin Lispro) 100 Unit/1 Ml Cartridge 6 Unit SQ TIDWMEALS 02/27/19 Reported Doxazosin Mesylate 2 Mg Tablet 2 Mg PO DAILY 02/27/19 Reported Omeprazole 40 Mg Capsule.dr 40 Mg PO DAILY 02/27/19 Reported Amlodipine Besylate 10 Mg Tablet 10 Mg PO DAILY 02/27/19 Reported Atorvastatin Calcium 20 Mg Tablet 20 Mg PO DAILY 02/27/19 Reported Atenolol 50 Mg Tablet 50 Mg PO DAILY 02/27/19 Reported Losartan Potassium 100 Mg Tablet 100 Mg PO DAILY 02/27/19 Reported Aspirin 81 Mg Tab.chew 81 Mg PO DAILY 02/27/19 Reported Glyburide 5 Mg Tablet 1 Tab PO BID 11/09/16 Reported Impression . Acute hypoxemic /hypercapnic respiratory failure./ ARDS sepsis./ ARDS In-house cardiopulmonary arrest. Normal EF / mild Pulmonary HTN Acute on chronic right-sided heart failure. Morbid obesity. Diabetes uncontrolled Abnormal CXR S/P TRACH 03/26 [facility] MYOPATHY Plan . WILL NEED LTACH CONTINUE SUPPORT VERY WEAK MAY TAKE UP TO A MONTH TO WEAN OFF VENT IMPROVING WILL DECREASE PEEP CXR REVIEWED IMPROVED DECREASE FIO2 ANTIBX MAGO NI MD Mar 31, 2019 09:17
--- NOTE | 2019-03-31 10:14 | PDOC ---
PROGRESS NOTES Chief Complaint Chief Complaint ARDS s/p trach and PEG 03/27 2019 In hospital cardiac arrest with short downtime Possible hypoxic/anoxia brain injury secondary to cardiac arrest Acute respiratory failure secondary to congestive heart failure,ARDS - high peep high O2 requirements Hypernatremia secondary to severe dehydration . on dextrose iVF High residuals on tube feedings no evidence of obstructive pattern on x ray done 03/05/2019 Bilateral general scrotal swelling and tenderness. better Dm2 obesity, extreme, morbid hx RLE BKA RLE stump with chronic wound. - from DM left foot nail onychomycosis Acute renal failure ATN chronic venous insuff left lower leg Bilateral lower lobe consolidation concerning for multifocal pneumonia Right renal hypodensity measuring 2.5 cm Anasarca. bilateral external iliac lymphadenopathy Trace tricuspid regurgitation. Estimated PAP 33-38 mmHg. Diastolic CHF History of Present Illness History of Present Illness Admitted with ARDS, status post trach 03/26/19, status post PEG 03/27/19 Afib yesterday, started on Amio gtt. Currently NSR with elevated BP. PEEP of 5, FiO2 40%. Back up on his propofol to 20 from 5 due to BP and agitation. CXR looks stable. Not very appropriate with following instructions, can nod yes and no, but not correctly. Plan Continue water flushes and tube feeds High likelihood of component of hypoxic and encephalopathy, persistent encephalopathy.-He did code in house, but was rather not a prolonged duration Overall prognosis poor, appropriately DNR This might be a prolonged encephalopathy that could either be hospice candidate or very long time LTAC care Lasix is down to 80 IV push once a day Hydralazine IV 10mg q 4hrs prn HTN Add back cardizem 30mg Q6 hrs Wean propofol. 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 HEENT: Pupils equal, ETT. OGT LUNGS: Diminished HEART: S1, S2. regular ABDOMEN: Obese, distended, decreased bowel sounds, no grimace or guarding to palpation GENITOURINARY: [place] - less scrotal edema but still present EXTREMITIES: Generalized anasarca. RLE stump with chronic wound. No erythema/fluctuance/warmth. no cyanosis SKIN: Warm to touch. 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 RUE-PICC (03/09) clean General: Other (s/p tracheostomy) Heart: Regular rate, No murmurs Lungs: Crackles Abdomen: No tenderness Extremities: Other (1+ EDEMA) Skin: No significant lesion Labs LABS Laboratory Tests Test 03/30/19 13:29 03/30/19 17:17 03/30/19 21:41 Glucose (Fingerstick) 273 mg/dL (70-99) 239 mg/dL (70-99) 303 mg/dL (70-99) Assessment and Plan Assessmemt and Plan Problems Medical Problems: (1) Acute renal failure Status: Acute (2) Edema Status: Acute (3) Shortness of breath Status: Acute Comment Review of Relevant I have reviewed the following items pascual (where applicable) has been applied. Labs Laboratory Tests Test 03/29/19 12:26 03/29/19 14:14 03/29/19 15:18 03/29/19 17:24 Glucose (Fingerstick) 155 mg/dL (70-99) 135 mg/dL (70-99) 127 mg/dL (70-99) 164 mg/dL (70-99) Test 03/29/19 20:16 03/30/19 04:46 03/30/19 04:50 03/30/19 09:15 Glucose (Fingerstick) 184 mg/dL (70-99) 272 mg/dL (70-99) Sodium Level 139 mmol/L (136-145) Potassium Level 4.7 mmol/L (3.5-5.1) Chloride Level 101 mmol/L (98-107) Carbon Dioxide Level 33 mmol/L (21-32) Anion Gap 5 (6-14) Blood Urea Nitrogen 57 mg/dL (8-26) Creatinine 0.9 mg/dL (0.7-1.3) Estimated GFR (Cockcroft-Gault) 87.3 Glucose Level 298 mg/dL (70-99) Calcium Level 8.5 mg/dL (8.5-10.1) O2 Saturation 94 % (92-99) Arterial Blood pH 7.46 (7.35-7.45) Arterial Blood pCO2 at Patient Temp 45 mmHg (35-46) Arterial Blood pO2 at Patient Temp 74 mmHg (75-108) Arterial Blood HCO3 32 mmol/L (21-28) Arterial Blood Base Excess 7 mmol/L (-3-3) FiO2 50 Test 03/30/19 13:29 03/30/19 17:17 03/30/19 21:41 Glucose (Fingerstick) 273 mg/dL (70-99) 239 mg/dL (70-99) 303 mg/dL (70-99) Laboratory Tests Test 03/30/19 13:29 03/30/19 17:17 03/30/19 21:41 Glucose (Fingerstick) 273 mg/dL (70-99) 239 mg/dL (70-99) 303 mg/dL (70-99) Microbiology 03/05/19 Blood Culture - Final, Complete NO GROWTH AFTER 5 DAYS 03/08/19 - Final, Complete 03/08/19 - Final, Complete 03/08/19 - Final, Complete 03/08/19 Gram Stain Evaluation - Final, Complete 03/08/19 Sputum Culture - Final, Complete 03/08/19 Sputum Result 1 - Final, Complete 03/02/19 Urine Culture - Final, Complete 03/02/19 Urine Culture Result 1 (LUCIO) - Final, Complete 03/09/19 Aerobic Culture - Final, Complete 03/09/19 Aerobic Culture Result 1 (LUCIO) - Final, Complete 03/09/19 Gram Stain - Final, Complete 03/09/19 Gram Stain Result 1 (LUCIO) - Final, Complete 03/09/19 Gram Stain Result 2 (LUCIO) - Final, Complete Medications Current Medications Ondansetron HCl (Zofran) 4 mg PRN Q8HRS PRN IV NAUSEA/VOMITING; Start 02/27/19 at 16:45; Stop 02/28/19 at 16:44; Status DC Morphine Sulfate (Morphine Sulfate) 2 mg PRN Q2HR PRN IV PAIN; Start 02/27/19 at 16:45; Stop 02/28/19 at 16:44; Status DC Acetaminophen (Tylenol) 650 mg PRN Q4HRS PRN PO FEVER Last administered on 02/27/19at 21:06; Start 02/27/19 at 16:45; Stop 02/28/19 at 16:44; Status DC Dextrose (Dextrose 50%-Water Syringe) 12.5 gm PRN Q15MIN PRN IV SEE COMMENTS; Start 02/27/19 at 16:45; Stop 03/10/19 at 13:48; Status DC Heparin Sodium (Porcine) (Heparin Sodium) 5,000 unit Q8HRS SQ Last administered on 03/31/19at 06:07; Start 02/27/19 at 17:00 Lorazepam (Ativan) 1 mg PRN Q8HRS PRN IV ANXIETY / AGITATION Last administered on 03/30/19at 10:58; Start 02/28/19 at 02:45 Etomidate (Amidate) 20 mg STK-MED ONCE IV ; Start 02/28/19 at 06:59; Stop 02/28/19 at 07:00; Status DC Rocuronium [place] (Zemuron) 50 mg STK-MED ONCE .ROUTE ; Start 02/28/19 at 07:00; Stop 02/28/19 at 09:42; Status DC Dopamine HCl/ Dextrose 250 ml @ 12.266 mls/ hr CONT PRN IV SEE I/O RECORD Last administered on 02/28/19at 08:06; Start 02/28/19 at 07:15; Stop 03/17/19 at 15: 50; Status DC Fentanyl Citrate 30 ml @ 0 mls/hr CONT PRN IV SEE PROTOCOL; Start 02/28/19 at 07:15; Stop 02/28/19 at 07:59; Status DC Propofol 100 ml @ 0 mls/hr CONT PRN IV SEE PROTOCOL; Start 02/28/19 at 07:15; Stop 02/28/19 at 07:59; Status DC Fentanyl Citrate (Fentanyl 2ml Vial) 25 mcg PRN Q1HR PRN IV SEE COMMENTS; Start 02/28/19 at 07:15; Stop 02/28/19 at 07:59; Status DC Fentanyl Citrate (Fentanyl 2ml Vial) 50 mcg PRN Q1HR PRN IV SEE COMMENTS; Start 02/28/19 at 07:15; Stop 02/28/19 at 07:59; Status DC Midazolam HCl 100 ml @ 0 mls/hr CONT PRN IV SEE PROTOCOL Last administered on 03/27/19at 11:59; Start 02/28/19 at 07:15 Sodium Chloride 1,000 ml @ 1,000 mls/hr Q1H IV Last administered on 02/28/19at 07:32; Start 02/28/19 at 07:32; Stop 02/28/19 at 10:09; Status DC Fentanyl Citrate (Fentanyl 2ml Vial) 25 mcg PRN Q30MIN PRN IV see comments; Start 02/28/19 at 07:45; Stop 02/28/19 at 09:42; Status DC Lorazepam (Ativan) 1 mg PRN Q30MIN PRN IV SEDATION; Start 02/28/19 at 07:45; Stop 02/28/19 at 09:42; Status DC Fentanyl Citrate 30 ml @ 2.5 mls/hr CONT PRN PRN IV SEE I/O RECORD Last administered on 03/05/19at 03:44; Start 02/28/19 at 07:45; Stop 03/05/19 at 04:40; Status DC Propofol 100 ml @ 0 mls/hr CONT PRN IV SEE I/O RECORD Last administered on at 10:04; Start 02/28/19 at 07:45 Vecuronium [place] (Norcuron Bolus) 10 mg PRN Q30MIN PRN IV SHIVERING; Start 02/28/19 at 07:45; Stop 02/28/19 at 09:42; Status DC Meperidine HCl (Demerol) 12.5 mg PRN Q30MIN PRN IV SHIVERING; Start 02/28/19 at 07:45; Stop 02/28/19 at 09:42; Status DC Multi-Ingred Cream/Lotion/Oil/ Oint (Artificial Tears Eye Ointment) 1 jennifer PRN Q6HRS PRN OU 0.5 INCH FOR DRY EYE; Start 02/28/19 at 07:45; Stop 02/28/19 at 09:42; Status DC Famotidine (Pepcid Vial) 20 mg BID IVP Last administered on 02/28/19at 11:03; Start 02/28/19 at 09:00; Stop 02/28/19 at 14:25; Status DC Aspirin (Aspirin) 300 mg DAILY SD ; Start 02/28/19 at 09:00; Stop 02/28/19 at 09:42; Status DC Sodium Chloride (Normal Saline Flush) 3 ml QSHIFT PRN IV AFTER MEDS AND BLOOD DRAWS; Start 02/28/19 at 07:45 Acetaminophen (Tylenol) 650 mg Q6HRS NG ; Start 02/28/19 at 12:00; Stop 02/28/19 at 12:00; Status DC Acetaminophen (Tylenol Supp) 650 mg PRN Q6HRS PRN SD MILD PAIN / TEMP; Start 03/01/19 at 07:45; Stop 03/01/19 at 07:45; Status DC Acetaminophen (Tylenol) 650 mg PRN Q6HRS PRN NG MILD PAIN / TEMP; Start 03/01/19 at 07:45; Stop 03/01/19 at 07:45; Status DC Info (Icu Electrolyte Protocol) 1 ea DAILY PRN MC PER PROTOCOL; Start 03/02/19 at 07:45; Stop 03/02/19 at 07:45; Status DC Furosemide (Lasix) 60 mg 1X ONCE IVP Last administered on 02/28/19at 08:30; Start 02/28/19 at 08:30; Stop 02/28/19 at 08:31; Status DC Ceftriaxone Sodium (Rocephin) 1 gm Q24H IVP Last administered on 02/28/19at 11:03; Start 02/28/19 at 11:00; Stop 02/28/19 at 11:18; Status DC Calcium Chloride 1000 mg/Dextrose 60 ml @ 120 mls/hr 1X ONCE IV Last administered on 02/28/19at 11:03; Start 02/28/19 at 10:30; Stop 02/28/19 at 10:59; Status DC Meropenem 500 mg/ Sodium Chloride 50 ml @ 100 mls/hr Q8HRS IV Last administered on 03/03/19at 06:24; Start 02/28/19 at 14:00; Stop 03/03/19 at 07:04; Status DC Linezolid/Dextrose 300 ml @ 300 mls/hr Q12HR IV Last administered on 03/03/19at 20:00; Start 02/28/19 at 11:30; Stop 03/04/19 at 08:55; Status DC Micafungin Sodium 100 mg/Dextrose 100 ml @ 100 mls/hr Q24H IV Last administered on 03/04/19 15:53; Start 02/28/19 at 12:00; Stop 03/05/19 at 06:47; Status DC Furosemide (Lasix) 40 mg [id number] IVP Last administered on 03/02/19 14:06; Start 02/28/19 at 14:00; Stop 03/02/19 at 17:02; Status DC Famotidine (Pepcid Vial) 20 mg QHS IVP Last administered on 03/01/19 21:24; Start 02/28/19 at 21:00; Stop 03/02/19 at 10:07; Status DC Albuterol/ Ipratropium (Duoneb) 3 ml RTQID NEB Last administered on 03/31/19 07:49; Start 02/28/19 at 16:00 Haloperidol Lactate (Haldol Inj) 5 mg PRN Q6HRS PRN IVP AGITATION 2ND CHOICE Last administered on 03/27/19 18:28; Start 02/28/19 at 15:15 Vecuronium [place] (Norcuron Bolus) 8 mg PRN Q4HRS PRN IV MUSCLE SPASMS Last administered on 03/12/19 23:48; Start 02/28/19 at 15:15 Perflutren Protein Type A Microsphe (Optison) 0.66 mg PRN 1X PRN IV SEE COMMENTS; Start 03/01/19 at 10:00; Stop 03/02/19 at 09:59; Status DC Digoxin (Lanoxin) 125 mcg 1X STAT IV ; Start 03/01/19 at 15:34; Stop 03/01/19 at 16:00; Status DC Sodium Chloride 500 ml @ 500 mls/hr 1X ONCE IV Last administered on 03/01/19at 18:46; Start 03/01/19 at 18:45; Stop 03/01/19 at 19:44; Status DC Famotidine (Pepcid Vial) 20 mg Q12HR IVP Last administered on 03/31/19 08:45; Start 03/02/19 at 21:00 Furosemide (Lasix) 40 mg DAILY IVP Last administered on 03/04/19 09:52; Start 03/03/19 at 09:00; Stop 03/04/19 at 12:13; Status DC Acetaminophen (Tylenol Supp) 650 mg PRN Q6HRS PRN SD MILD PAIN / TEMP Last administered on 03/03/19 17:39; Start 03/02/19 at 17:15 Meropenem 500 mg/ Sodium Chloride 50 ml @ 100 mls/hr Q6HRS IV Last administered on 03/05/19 05:33; Start 03/03/19 at 12:00; Stop 03/05/19 at 06:47; Status DC Albumin Human 100 ml @ 100 mls/hr 1X ONCE IV Last administered on 03/03/19 08:52; Start 03/03/19 at 08:30; Stop 03/03/19 at 09:29; Status DC Atropine Sulfate (ATROPINE 0.5mg SYRINGE) 2 mg STK-MED ONCE .ROUTE ; Start 02/27/19 at 16:21; Stop 03/03/19 at 16:22; Status DC Dopamine HCl/ Dextrose (DOPamine 400MG/ 250ML PREMIX) 400 mg STK-MED ONCE IV ; Start 02/27/19 at 16:21; Stop 03/03/19 at 16:22; Status DC Furosemide (Lasix) 40 mg 1X ONCE IVP Last administered on 03/03/19 18:46; Start 03/03/19 at 18:45; Stop 03/03/19 at 18:46; Status DC Lorazepam 100 mg/ Sodium Chloride 100 ml @ 0 mls/hr CONT PRN IV SEE PROTOCOL Last administered on 03/03/19 22:18; Start 03/03/19 at 22:00; Stop 03/17/19 at 15:39; Status DC Acetaminophen (Tylenol) 650 mg PRN Q6HRS PRN PEG MILD PAIN / TEMP Last administered on 03/10/19 20:48; Start 03/04/19 at 11:45 Furosemide (Lasix) 40 mg BID92 IVP Last administered on 03/06/19 08:38; Start 03/04/19 at 14:00; Stop 03/06/19 at 13:30; Status DC Fentanyl Citrate 30 ml @ 0 mls/hr CONT PRN IV SEE PROTOCOL Last administered on 03/31/19 01:53; Start 03/05/19 at 04:45 Cefepime HCl (Maxipime) 2 gm Q8HRS IVP Last administered on 03/10/19 05:43; Start 03/05/19 at 06:45; Stop 03/10/19 at 08:29; Status DC Metronidazole 100 ml @ 100 mls/hr Q8HRS IV Last administered on 03/10/19 05:45; Start 03/05/19 at 06:45; Stop 03/10/19 at 08:29; Status DC Linezolid/Dextrose 300 ml @ 300 mls/hr Q12HR IV Last administered on 03/05/19 21:24; Start 03/05/19 at 09:00; Stop 03/06/19 at 06:42; Status DC Metoclopramide HCl (Reglan Vial) 10 mg QIDACHS IV Last administered on 03/06/19 20:43; Start 03/05/19 at 11:30; Stop 03/07/19 at 07:37; Status DC Insulin Glargine (Lantus) 12 units BID SQ Last administered on 03/09/19 09:29; Start 03/05/19 at 09:00; Stop 03/09/19 at 17:11; Status DC Digoxin (Lanoxin) 500 mcg 1X ONCE IV Last administered on 03/06/19 00:48; Start 03/06/19 at 00:45; Stop 03/06/19 at 00:46; Status DC Metoprolol Tartrate (Lopressor Vial) 5 mg 1X ONCE IVP Last administered on 03/06/19 00:53; Start 03/06/19 at 00:45; Stop 03/06/19 at 00:46; Status DC Sodium Chloride 500 ml @ 500 mls/hr 1X ONCE IV Last administered on 03/06/19 00:49; Start 03/06/19 at 00:45; Stop 03/06/19 at 01:44; Status DC Nystatin (Mycostatin) 1 jennifer BID TP Last administered on 03/31/19 08:45; Start 03/06/19 at 09:00 Sodium Cl/Sod Bicarb/Potass Cl/ PEG (Golytely) 2,000 ml 1X ONCE PO Last administered on 03/06/19 09:33; Start 03/06/19 at 08:00; Stop 03/06/19 at 08:01; Status DC Furosemide (Lasix) 40 mg DAILY08 IVP Last administered on 03/09/19 09:27; Start 03/07/19 at 08:00; Stop 03/09/19 at 12:45; Status DC Metoprolol Tartrate (Lopressor Vial) 10 mg 1X ONCE IVP Last administered on 03/06/19 16:08; Start 03/06/19 at 15:15; Stop 03/06/19 at 15:16; Status DC Metoprolol Tartrate (Lopressor Vial) 5 mg Q6HRS IVP Last administered on 03/07/19at 17:03; Start 03/06/19 at 18:00; Stop 03/07/19 at 18:27; Status DC Aspirin (Children'S Aspirin) 81 mg 1X ONCE PO Last administered on 03/06/19 18:18; Start 03/06/19 at 17:00; Stop 03/06/19 at 17:01; Status DC Aspirin (Children'S Aspirin) 81 mg DAILYWBKFT PO Last administered on 03/31/19at 08:44; Start 03/07/19 at 08:00 Labetalol HCl (Normodyne Iv Push) 20 mg PRN Q2HR PRN IVP HYPERTENSION, SEE COMMENTS Last administered on 03/06/19at 21:29; Start 03/06/19 at 17:15; Stop 03/30/19 at 10:32; Status DC Digoxin (Lanoxin) 250 mcg 1X ONCE IV Last administered on 03/06/19 22:00; Start 03/06/19 at 22:00; Stop 03/06/19 at 22:01; Status DC Diltiazem HCl 125 mg/Dextrose 125 ml @ 5 mls/hr CONT PRN IV SEE I/O RECORD Last administered on 03/12/19at 08:20; Start 03/06/19 at 23:00; Stop 03/12/19 at 11:03; Status DC Metoclopramide HCl (Reglan Vial) 10 mg Q6HRS IV ; Start 03/07/19 at 08:00; Stop 03/08/19 at 07:51; Status DC Metoprolol Tartrate (Lopressor Vial) 5 mg Q6HRS IVP Last administered on 03/31/19at 05:37; Start 03/08/19 at 12:00 Furosemide (Lasix) 40 mg 1X ONCE IVP Last administered on 03/08/19at 21:21; Start 03/08/19 at 21:00; Stop 03/08/19 at 21:01; Status DC Furosemide (Lasix) 20 mg DAILY08 IVP ; Start 03/10/19 at 08:00; Stop 03/10/19 at 08:00; Status DC Furosemide (Lasix) 20 mg DAILY08 IVP Last administered on 03/14/19at 07:41; Start 03/10/19 at 08:00; Stop 03/15/19 at 07:32; Status DC Insulin Glargine (Lantus) 16 units BID SQ Last administered on 03/12/19at 00:09; Start 03/09/19 at 21:00; Stop 03/12/19 at 07:18; Status DC Insulin Human Lispro (HumaLOG) 0-9 UNITS Q6HRS SQ Last administered on 03/12/19at 05:45; Start 03/09/19 at 18:00; Stop 03/12/19 at 07:18; Status DC Dextrose (Dextrose 50%-Water Syringe) 12.5 gm PRN Q15MIN PRN IV SEE COMMENTS; Start 03/09/19 at 17:15; Stop 03/21/19 at 10:07; Status DC Cefepime HCl (Maxipime) 2 gm Q12HR IVP Last administered on 03/21/19at 08:26; Start 03/10/19 at 21:00; Stop 03/21/19 at 12:48; Status DC Insulin Human Lispro (HumaLOG) 15 units 1X ONCE SQ Last administered on 03/11/19at 00:14; Start 03/11/19 at 00:00; Stop 03/11/19 at 00:01; Status DC Insulin Glargine (Lantus) 20 units BID SQ Last administered on 03/17/19at 08:32; Start 03/12/19 at 09:00; Stop 03/17/19 at 10:46; Status DC Insulin Human Lispro (HumaLOG) 0-9 UNITS Q6HRS SQ Last administered on 03/21at 06:35; Start 03/12/19 at 12:00; Stop 03/21/19 at 10:00; Status DC Diltiazem HCl (Cardizem) 30 mg Q6HRS PO Last administered on 03/26/19at 05:46; Start 03/12/19 at 12:00; Stop 03/26/19 at 13:47; Status DC Furosemide (Lasix) 20 mg 1X ONCE IVP Last administered on 03/13/19at 11:04; Start 03/13/19 at 10:30; Stop 03/13/19 at 10:31; Status DC Furosemide (Lasix) 20 mg 1X ONCE IVP Last administered on 03/14/19at 07:40; Start 03/14/19 at 07:15; Stop 03/14/19 at 14:05; Status DC Furosemide (Lasix) 40 mg Q8HRS IVP Last administered on 03/17/19at 05:49; Start 03/14/19 at 22:00; Stop 03/17/19 at 10:58; Status DC Albuterol Sulfate (Ventolin Neb Soln) 2.5 mg 1X ONCE NEB Last administered on 03/16/19at 04:00; Start 03/16/19 at 04:00; Stop 03/16/19 at 04:01; Status DC Methylprednisolone Sodium Succinate (SOLU-Medrol 40MG VIAL) 80 mg 1X ONCE IV Last administered on 03/16/19at 04:17; Start 03/16/19 at 04:30; Stop 03/16/19 at 04:31; Status DC Furosemide (Lasix) 20 mg 1X ONCE IVP Last administered on 03/16/19at 04:17; Start 03/16/19 at 04:30; Stop 03/16/19 at 04:31; Status DC Insulin Glargine (Lantus) 25 units BID SQ Last administered on 03/21/19at 08:55; Start 03/17/19 at 21:00; Stop 03/21/19 at 10:00; Status DC Insulin Human Lispro (HumaLOG) 10 units Q6HRS SQ ; Start 03/17/19 at 12:00; Stop 03/17/19 at 13:32; Status DC Furosemide (Lasix) 40 mg QD IVP Last administered on 03/18/19at 05:55; Start 03/18/19 at 06:00; Stop 03/18/19 at 10:54; Status DC Insulin Human Lispro (HumaLOG) 3 units Q6HRS SQ Last administered on 03/19/19at 06:12; Start 03/17/19 at 18:00; Stop 03/19/19 at 08:28; Status DC Azithromycin 250 mg/Sodium Chloride 250 ml @ 250 mls/hr Q24H IV Last administered on 03/23/19at 08:13; Start 03/18/19 at 08:00; Stop 03/23/19 at 16:23; Status DC Alteplase, Recombinant (Cathflo For Central Catheter Clearance) 1 mg 1X ONCE INT CAT Last administered on 03/18/19at 09:21; Start 03/18/19 at 07:30; Stop 03/18/19 at 07:31; Status DC Alteplase, Recombinant (Cathflo For Central Catheter Clearance) 1 mg 1X ONCE INT CAT Last administered on 03/18/19at 11:04; Start 03/18/19 at 07:30; Stop 03/18/19 at 07:31; Status DC Alteplase, Recombinant (Cathflo For Central Catheter Clearance) 1 mg 1X ONCE INT CAT Last administered on 03/18/19at 13:26; Start 03/18/19 at 07:30; Stop 03/18/19 at 07:31; Status DC Furosemide (Lasix) 60 mg 1X ONCE IVP Last administered on 03/18/19at 11:04; Start 03/18/19 at 10:54; Stop 03/18/19 at 10:55; Status DC Furosemide (Lasix) 40 mg Q8HRS IVP ; Start 03/18/19 at 14:00; Stop 03/18/19 at 17:53; Status DC Digoxin (Lanoxin) 250 mcg 1X ONCE IV Last administered on 03/18/19at 15:48; Start 03/18/19 at 15:30; Stop 03/18/19 at 15:33; Status DC Furosemide (Lasix) 40 mg Q8HRS IVP Last administered on 03/20/19at 05:42; Start 03/18/19 at 20:00; Stop 03/20/19 at 08:48; Status DC Digoxin (Lanoxin) 500 mcg 1X ONCE IV Last administered on 03/18/19at 19:35; Start 03/18/19 at 20:00; Stop 03/18/19 at 20:01; Status DC Insulin Human Lispro (HumaLOG) 6 units Q6HRS SQ Last administered on 03/20/19 05:45; Start 03/19/19 at 12:00; Stop 03/20/19 at 08:48; Status DC Furosemide (Lasix) 80 mg Q8HRS IVP Last administered on 03/22/19at 12:43; Start 03/20/19 at 14:00; Stop 03/22/19 at 17:00; Status DC Insulin Human Lispro (HumaLOG) 9 units Q6HRS SQ Last administered on 03/21/19at 06:36; Start 03/20/19 at 12:00; Stop 03/21/19 at 10:00; Status DC Methylprednisolone Sodium Succinate (SOLU-Medrol 125MG VIAL) 80 mg Q8HRS IV Last administered on 03/31/19at 06:00; Start 03/20/19 at 11:00 Alteplase, Recombinant (Cathflo For Central Catheter Clearance) 1 mg 1X ONCE INT CAT Last administered on 03/20/19at 20:23; Start 03/20/19 at 20:00; Stop 03/20/19 at 20:09; Status DC Alteplase, Recombinant (Cathflo For Central Catheter Clearance) 1 mg 1X ONCE INT CAT Last administered on 03/20/19at 20:23; Start 03/20/19 at 20:00; Stop 03/20/19 at 20:09; Status DC Alteplase, Recombinant (Cathflo For Central Catheter Clearance) 1 mg 1X ONCE INT CAT Last administered on 03/20/19at 20:23; Start 03/20/19 at 20:00; Stop 03/20/19 at 20:09; Status DC Insulin Human Regular 150 unit/ Sodium Chloride 151.5 ml @ 0 mls/hr CONT PRN IV SEE I/O RECORD Last administered on 03/28/19at 14:54; Start 03/21/19 at 10:00; Stop 03/29/19 at 08:46; Status DC Dextrose (Dextrose 50%-Water Syringe) 12.5 gm PRN Q15MIN PRN IV LOW BLOOD SUGAR; Start 03/21/19 at 10:00; Stop 03/30/19 at 10:30; Status DC Furosemide (Lasix) 80 mg DAILY06 IVP Last administered on 03/31/19at 05:37; Start 03/23/19 at 06:00 Potassium Chloride (KCl Oral Soln) 40 meq 1X ONCE PEG Last administered on 03/22/19at 17:14; Start 03/22/19 at 17:30; Stop 03/22/19 at 17:31; Status DC Metoclopramide HCl (Reglan Vial) 10 mg PRN Q6HRS PRN IV NAUSEA/VOMITING Last administered on 03/24/19at 11:02; Start 03/23/19 at 10:30; Stop 03/24/19 at 11:04; Status DC Dextrose 1,000 ml @ 125 mls/hr Q8H IV Last administered on 03/29/19at 05:02; Start 03/23/19 at 11:15; Stop 03/29/19 at 08:46; Status DC Potassium Chloride (KCl Oral Soln) 40 meq 1X ONCE PEG Last administered on 03/24/19at 10:32; Start 03/24/19 at 08:30; Stop 03/24/19 at 08:31; Status DC Metoclopramide HCl (Reglan Vial) 10 mg Q8HRS IV Last administered on 03/31/19at 05:37; Start 03/24/19 at 14:00 Insulin Glargine (Lantus) 10 units BID SQ Last administered on 03/26/19at 20:56; Start 03/24/19 at 21:00; Stop 03/27/19 at 09:37; Status DC Potassium Chloride (KCl Oral Soln) 40 meq 1X ONCE PEG Last administered on 03/25/19at 08:50; Start 03/25/19 at 08:15; Stop 03/25/19 at 08:16; Status DC Potassium Chloride (KCl Oral Soln) 40 meq BID PEG Last administered on 03/26/19at 09:15; Start 03/25/19 at 10:00; Stop 03/26/19 at 13:47; Status DC Fentanyl Citrate (Fentanyl 2ml Vial) 25 mcg PRN Q5MIN PRN IV MILD PAIN; Start 03/26/19 at 07:00; Stop 03/27/19 at 06:59; Status DC Fentanyl Citrate (Fentanyl 2ml Vial) 50 mcg PRN Q5MIN PRN IV MODERATE TO SEVERE PAIN; Start 03/26/19 at 07:00; Stop 03/27/19 at 06:59; Status DC Morphine Sulfate (Morphine Sulfate) 1 mg PRN Q10MIN PRN IV SEVERE PAIN; Start 03/26/19 at 07:00; Stop 03/27/19 at 06:59; Status DC Ringer's Solution 1,000 ml @ 30 mls/hr Q24H IV ; Start 03/26/19 at 07:00; Stop 03/26/19 at 18:59; Status DC Lidocaine HCl (Xylocaine-Mpf 1% 2ml Vial) 2 ml PRN 1X PRN ID PRIOR TO IV START; Start 03/26/19 at 07:00; Stop 03/27/19 at 06:59; Status DC Hydromorphone HCl (Dilaudid) 0.5 mg PRN Q10MIN PRN IV SEV PAIN, Second choice; Start 03/26/19 at 07:00; Stop 03/27/19 at 06:59; Status DC Potassium Chloride 30 meq/ Sodium Chloride 1,015 ml @ 75 mls/hr 1X ONCE IV Last administered on 03/25/19at 13:21; Start 03/25/19 at 12:15; Stop 03/26/19 at 01:46; Status DC Rocuronium [place] (Zemuron) 50 mg STK-MED ONCE .ROUTE ; Start 03/26/19 at 11:47; Stop 03/26/19 at 11:48; Status DC Fentanyl Citrate (Fentanyl 2ml Vial) 100 mcg STK-MED ONCE .ROUTE ; Start 03/26/19 at 12:31; Stop 03/26/19 at 12:32; Status DC Cefazolin Sodium/ Dextrose 50 ml @ As Directed STK-MED ONCE IV ; Start 03/26/19 at 11:38; Stop 03/26/19 at 12:38; Status DC Rocuronium [place] (Zemuron) 50 mg STK-MED ONCE .ROUTE ; Start 03/26/19 at 12:54; Stop 03/26/19 at 12:55; Status DC Metoprolol Tartrate (Lopressor Vial) 10 mg Q6HRS IVP ; Start 03/26/19 at 18:00; Stop 03/26/19 at 18:16; Status DC Fentanyl Citrate (Fentanyl 2ml Vial) 25 mcg PRN Q5MIN PRN IV MILD PAIN; Start 03/27/19 at 07:00; Stop 03/28/19 at 06:59; Status DC Fentanyl Citrate (Fentanyl 2ml Vial) 50 mcg PRN Q5MIN PRN IV MODERATE TO SEVERE PAIN; Start 03/27/19 at 07:00; Stop 03/28/19 at 06:59; Status DC Morphine Sulfate (Morphine Sulfate) 1 mg PRN Q10MIN PRN IV SEVERE PAIN; Start 03/27/19 at 07:00; Stop 03/28/19 at 06:59; Status DC Ringer's Solution 1,000 ml @ 30 mls/hr Q24H IV ; Start 03/27/19 at 07:00; Stop 03/27/19 at 18:59; Status DC Hydromorphone HCl (Dilaudid) 0.5 mg PRN Q10MIN PRN IV SEV PAIN, Second choice; Start 03/27/19 at 07:00; Stop 03/28/19 at 06:59; Status DC Midazolam HCl (Versed) 2 mg PRN 1X PRN IV PRIOR TO PROCEDURE; Start 03/27/19 at 07:15; Stop 03/27/19 at 18:00; Status DC Fentanyl Citrate (Fentanyl 2ml Vial) 25 mcg PRN Q5MIN PRN IV X 2 DOSES FOR PAIN; Start 03/27/19 at 07:15; Stop 03/27/19 at 18:00; Status DC Fentanyl Citrate (Fentanyl 2ml Vial) 50 mcg PRN Q5MIN PRN IV X 2 DOSES FOR PAIN; Start 03/27/19 at 07:15; Stop 03/27/19 at 18:00; Status DC Ringer's Solution 1,000 ml @ 125 mls/hr Q8H IV ; Start 03/27/19 at 07:06; Stop 03/27/19 at 19:05; Status DC Lidocaine HCl (Xylocaine-Mpf 1% 2ml Vial) 2 ml 1X PRN PRN ID IV START; Start 03/27/19 at 07:15; Stop 03/27/19 at 18:00; Status DC Insulin Glargine (Lantus) 30 units BID SQ Last administered on 03/31/19at 09:05; Start 03/27/19 at 21:00 Cefazolin Sodium 50 ml @ 100 mls/hr 1X ONCE IV Last administered on 03/27/19at 11:19; Start 03/27/19 at 11:00; Stop 03/27/19 at 11:29; Status DC Digoxin (Lanoxin) 500 mcg 1X ONCE IV Last administered on 03/28/19at 16:24; Start 03/28/19 at 16:15; Stop 03/28/19 at 16:17; Status DC Insulin Human Lispro (HumaLOG) 0-7 UNITS TIDWMEALS SQ Last administered on 03/31/19at 08:52; Start 03/30/19 at 08:00 Dextrose (Dextrose 50%-Water Syringe) 12.5 gm PRN Q15MIN PRN IV SEE COMMENTS; Start 03/29/19 at 17:15 Amiodarone HCl 150 mg/Dextrose 103 ml @ 618 mls/hr 1X ONCE IV Last administered on 03/29/19at 19:41; Start 03/29/19 at 19:30; Stop 03/29/19 at 19:39; Status DC Amiodarone HCl 900 mg/Dextrose 518 ml @ 17 mls/hr CONT PRN IV SEE I/O RECORD Last administered on 03/29/19at 19:41; Start 03/29/19 at 20:00; Stop 03/29/19 at 20:00; Status DC Amiodarone HCl (Cordarone) 200 mg DAILY PO ; Start 03/30/19 at 09:00 Hydralazine HCl (Apresoline Inj) 10 mg PRN Q4HRS PRN IVP ELEVATED BP, SEE COMMENTS Last administered on 03/30/19at 10:59; Start 03/30/19 at 10:30 Active Scripts Active Reported Proair Hfa Inhaler (Albuterol Sulfate) 8.5 Gm Hfa.aer.ad 1 Puff INH PRN Q6HRS PRN Lantus Solostar (Insulin Glargine,Hum.rec.anlog) 100 Unit/1 Ml Insuln.pen 20 Unit SQ QHS Humalog (Insulin Lispro) 100 Unit/1 Ml Cartridge 6 Unit SQ TIDWMEALS Doxazosin Mesylate 2 Mg Tablet 2 Mg PO DAILY Omeprazole 40 Mg Capsule.dr 40 Mg PO DAILY Amlodipine Besylate 10 Mg Tablet 10 Mg PO DAILY Atorvastatin Calcium 20 Mg Tablet 20 Mg PO DAILY Atenolol 50 Mg Tablet 50 Mg PO DAILY Losartan Potassium 100 Mg Tablet 100 Mg PO DAILY Aspirin 81 Mg Tab.chew 81 Mg PO DAILY Glyburide 5 Mg Tablet 1 Tab PO BID Vitals/I & O Vital Sign - Last 24 Hours 03/30/19 03/30/19 03/30/19 03/30/19 10:56 10:59 11:00 12:00 Pulse 68 78 82 Resp 16 16 B/P (MAP) 185/78 174/78 (110) 164/71 (102) Pulse Ox 95 95 95 O2 Delivery Ventilator Ventilator O2 Flow Rate 40.0 03/30/19 03/30/19 03/30/19 03/30/19 12:00 12:11 12:58 13:00 Pulse 88 Resp 16 B/P (MAP) 158/72 (100) Pulse Ox 94 95 O2 Delivery Ventilator Mechanical Ventilator Ventilator O2 Flow Rate 40.0 03/30/19 03/30/19 03/30/19 03/30/19 13:14 14:00 15:00 15:54 Pulse 78 70 70 Resp 16 16 B/P (MAP) 174/78 145/68 (93) 145/68 (93) Pulse Ox 95 95 93 O2 Delivery Ventilator Ventilator Ventilator 03/30/19 03/30/19 03/30/19 03/30/19 16:00 16:00 17:14 18:05 Temp 98.6 98.6 Pulse 74 78 78 Resp 16 B/P (MAP) 143/71 (95) 152/71 (98) 152/71 Pulse Ox 95 95 O2 Delivery Mechanical Ventilator Ventilator O2 Flow Rate 40.0 03/30/19 03/30/19 03/30/19 03/30/19 18:15 18:23 19:00 20:00 Pulse 66 68 Resp 16 18 B/P (MAP) 166/70 (102) 169/67 (101) Pulse Ox 94 95 94 O2 Delivery Ventilator Ventilator Ventilator Mechanical Ventilator 03/30/19 03/30/19 03/30/19 03/30/19 20:00 20:54 21:00 22:00 Temp 97.8 97.8 Pulse 68 67 67 Resp 16 16 16 B/P (MAP) 161/74 (103) 154/70 (98) 167/72 (103) Pulse Ox 94 94 94 97 O2 Delivery Ventilator Ventilator Ventilator Ventilator 03/30/19 03/30/19 03/30/19 03/31/19 23:00 23:47 23:59 00:00 Temp 98.3 98.3 Pulse 61 62 Resp 16 16 B/P (MAP) 170/77 (108) 176/80 (112) Pulse Ox 94 96 95 O2 Delivery Ventilator Ventilator Mechanical Ventilator Ventilator 03/31/19 03/31/19 03/31/19 03/31/19 00:12 01:00 01:40 01:53 Pulse 60 64 Resp 16 16 B/P (MAP) 176/80 186/84 (118) Pulse Ox 95 96 95 O2 Delivery Ventilator Ventilator Ventilator 03/31/19 03/31/19 03/31/19 03/31/19 02:00 02:23 03:00 04:00 Pulse 63 64 Resp 16 16 16 B/P (MAP) 181/82 (115) 183/83 (116) Pulse Ox 94 94 93 O2 Delivery Ventilator Ventilator Ventilator Mechanical Ventilator 03/31/19 03/31/19 03/31/19 03/31/19 04:00 05:00 05:37 06:00 Temp 98.4 98.4 Pulse 68 65 64 61 Resp 16 16 16 B/P (MAP) 180/78 (112) 175/76 (109) 175/76 173/76 (108) Pulse Ox 95 95 95 O2 Delivery Ventilator Ventilator Ventilator 03/31/19 07:50 Pulse Ox 92 O2 Delivery Ventilator Intake and Output 03/30/19 03/30/19 03/31/19 15:00 23:00 07:00 Intake Total 780 ml 611 ml 1259.55 ml Output Total 2050 ml 1725 ml 850 ml Balance -1270 ml -1114 ml 409.55 ml YRIS RUIZ MD Mar 31, 2019 10:14
[2019-03-31] MEDS ORDERED: INSULIN LISPRO 300 UNITS/3 ML INSULN.PEN. SQ ONE (12:45)
--- NOTE | 2019-03-31 13:22 | PDOC ---
Objective: Objective: No PEG issues per RN, no residual today. Vital Signs: Vital Signs Date Time Temp Pulse Resp B/P (MAP) Pulse Ox O2 Delivery O2 Flow Rate FiO2 03/31/19 12:08 80 172/71 03/31/19 12:00 Mechanical Ventilator 03/31/19 12:00 98.4 18 93 98.4 03/30/19 17:14 40.0 Labs: Laboratory Tests Test 03/30/19 13:29 03/30/19 17:17 03/30/19 21:41 Glucose (Fingerstick) 273 mg/dL 239 mg/dL 303 mg/dL PE: GEN: NAD HEENT: trach/vent HEART: RRR ABD: large, soft, quiet, PEG in place, brown stool in rectal tube NEURO/PSYCH: sedated A/P: Resp failure s/ trach and PEG -- PEG functioning, continue same per GI. RJ MOFFETT Mar 31, 2019 13:22
--- NOTE | 2019-03-31 16:18 | NUR ---
MELVIN consulted to screen [facility]. Pt has already been accepted at [facility] and insurance just approved LTAC. Discussed with Physician and plan on discharging pt to [facility] tomorrow morning. Addendum: 03/31/19 at 1619 by FERN CHARLES Pt's sister, Mimi notified of plan and agreeable.
[2019-03-31] MEDS: hydrALAZINE 20 MG/ML VIAL. IVP PRN (17:50)
[2019-04-01] VITALS (11 sets, daily range): BP systolic 147–178; BP diastolic 68–95
[2019-04-01] MEDS: METOPROLOL TARTRATE 5 MG/5 ML VIAL. IVP SCH ×2 (00:21→05:46)
[2019-04-01] MEDS: METOCLOPRAMIDE HCL 10 MG/2 ML VIAL. IV SCH (05:46)
[2019-04-01] MEDS: FUROSEMIDE 100 MG/10 ML VIAL. IVP SCH (05:46)
[2019-04-01] MEDS: methylPREDNISolone SOD SUCC PF 125 MG/2 ML VIAL. IV SCH (05:46)
[2019-04-01] MEDS: HEPARIN for SUB-Q USE 5,000 UNIT/ML VIAL. SQ SCH (05:48)
[2019-04-01] MEDS: PROPOFOL 100 ML IV PRN (06:45)
[2019-04-01] MEDS: INSULIN LISPRO 300 UNITS/3 ML INSULN.PEN. SQ SCH ×2 (07:30→08:35)
[2019-04-01] MEDS: FAMOTIDINE 20 MG/2 ML VIAL IVP SCH (08:32)
[2019-04-01] MEDS: NYSTATIN 100,000 UNIT/GM TOPICAL CREAM 15GM TUBE. TP SCH (08:33)
[2019-04-01] MEDS: AMIODARONE HCL 200 MG TABLET. PO SCH (08:33)
[2019-04-01] MEDS: ASPIRIN CHEWABLE 81 MG TABLET. PO SCH (08:33)
[2019-04-01] MEDS: INSULIN GLARGINE 300 UNITS/3 ML INSULN.PEN. SQ SCH (08:35)
--- NOTE | 2019-04-01 08:49 | PDOC3 ---
Discharge Summary Visit Information Date of Admission: Feb 27, 2019 Date of Discharge: April 01, 2019 Admitting Diagnosis: ARDS Final Diagnosis Problems Medical Problems: (1) Acute renal failure Status: Acute (2) Edema Status: Acute (3) Shortness of breath Status: Acute Brief Hospital Course Allergies Allergies Coded Allergies Type Severity Reaction Last Updated Verified No Known Drug Allergies 03/27/19 No Vital Signs Vital Signs Date Time Temp Pulse Resp B/P (MAP) Pulse Ox O2 Delivery O2 Flow Rate FiO2 04/01/19 08:33 64 165/74 04/01/19 06:00 16 95 Ventilator 04/01/19 04:00 98.8 98.8 Lab Results Laboratory Tests Test 03/30/19 09:15 03/30/19 13:29 03/30/19 17:17 03/30/19 21:41 O2 Saturation 94 % (92-99) Arterial Blood pH 7.46 (7.35-7.45) Arterial Blood pCO2 at Patient Temp 45 mmHg (35-46) Arterial Blood pO2 at Patient Temp 74 mmHg (75-108) Arterial Blood HCO3 32 mmol/L (21-28) Arterial Blood Base Excess 7 mmol/L (-3-3) FiO2 50 Glucose (Fingerstick) 273 mg/dL (70-99) 239 mg/dL (70-99) 303 mg/dL (70-99) Brief Hospital Course The patient is a 58-year-old gentleman with history of diabetes and neuropathy, who has undergone a 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 The patient presented to [facility] Emergency Room on the 27 of February secondary to shortness of breath on and off about 4 months, also complaining of increasing swelling to his abdomen and his lower extremities x 3 weeks. On arrival, he had a white count of 4.9 with a normal differential, but was in acute renal failure with a creatinine of 2.4. Last creatinine in 2014 was 0.8. He underwent an acute abdominal series, which showed decreased lung volumes and nonobstructive bowel gas pattern and then underwent a renal ultrasound, showed urinary bladder estimated 154, could not visualize either kidney. He underwent abdominal ultrasound and scrotal ultrasound, showed severe scrotal wall thickening and edema, left greater than right with evidence of cellulitis. No evidence of any torsion. He was admitted to the hospital and evaluated by Urology. Influenza screen was obtained and was negative. He had some episodes of hypoglycemia and was found foaming at the mouth and Rapid Response was called on 02/28/2019. Seen by ID [He has had previous cultures positive for group B Strep, Acinetobacter, porphomonas, and anaerobes], pulmonology for ARDS, Urology for scrotal edema, cardiology for atrial fibrillation, and nephrology for LEONARD on CKD. He had prolonged ventilatory stay for ARDS and is status post trach 03/26/19, status post PEG 03/27/19 Afib yesterday, started on Amio gtt. Currently NSR with elevated BP. PEEP of 5, FiO2 40%. Back up on his propofol to 20 from 5 due to BP and agitation. CXR looks stable. Not very appropriate with following instructions, can nod yes and no, but not correctly. Assessment: ARDS s/p trach and PEG 03/27 2019 In hospital cardiac arrest with short downtime Possible hypoxic/anoxia brain injury secondary to cardiac arrest Acute respiratory failure secondary to congestive heart failure,ARDS - high peep high O2 requirements Hypernatremia secondary to severe dehydration . on dextrose iVF High residuals on tube feedings no evidence of obstructive pattern on x ray done 03/05/2019 Bilateral general scrotal swelling and tenderness. better Dm2 obesity, extreme, morbid hx RLE BKA RLE stump with chronic wound. - from DM left foot nail onychomycosis Acute renal failure ATN chronic venous insuff left lower leg Bilateral lower lobe consolidation concerning for multifocal pneumonia Right renal hypodensity measuring 2.5 cm Anasarca. bilateral external iliac lymphadenopathy Trace tricuspid regurgitation. Estimated PAP 33-38 mmHg. Diastolic CHF Plan Continue water flushes and tube feeds High likelihood of component of hypoxic and encephalopathy, persistent encephalopathy.-He did code in house, but was rather not a prolonged duration Overall prognosis poor, appropriately DNR This might be a prolonged encephalopathy that could either be hospice candidate or very long time LTAC care Lasix is down to 80 IV push once a day Hydralazine IV 10mg q 4hrs prn HTN Add back cardizem 30mg Q6 hrs Wean propofol. If he still is not appropriate may need CT head, though a prolonged subacute/chronic encephalopathy is not unexpected Plan for LTAC today Greater than 30 minutes spent on discharge. dw afternoon babysitter and discharge coordinator Vital Signs Date Time Temp Pulse Resp B/P (MAP) Pulse Ox O2 Delivery O2 Flow Rate FiO2 03/31/19 07:50 92 Ventilator 03/31/19 06:00 61 16 173/76 (108) 03/31/19 04:00 98.4 98.4 03/30/19 17:14 40.0 Physical Exam General: Opens eyes, not meaningfully following directions at all times and not appropriately nodding HEENT: Pupils equal, Trach on vent. LUNGS: Diminished HEART: S1, S2. regular ABDOMEN: Obese, distended, decreased bowel sounds, no grimace or guarding to palpation PEG tube in place GENITOURINARY: [place] - less scrotal edema but still present RUE-PICC (03/09) clean EXTREMITIES: Generalized anasarca. RLE stump with chronic wound. No erythema/fluctuance/warmth. no cyanosis Skin: No significant lesion Discharge Information Condition at Discharge: Stable Follow Up: Weeks (1) Disposition/Orders: D/C to Another Facility ([facility]) Scheduled Amlodipine Besylate (Amlodipine Besylate) 10 Mg Tablet, 10 MG PO DAILY for htn, (Reported) Entered as Reported by: NIALL DOE on 02/27/191708 Last Action: New Order on 02/27/191708 by NIALL DOE Aspirin (Aspirin) 81 Mg Tab.chew, 81 MG PO DAILY for heart health, (Reported) Entered as Reported by: NIALL DOE on 02/27/191705 Last Action: New Order on 02/27/191705 by NIALL DOE Atenolol (Atenolol) 50 Mg Tablet, 50 MG PO DAILY for hypertension, (Reported) Entered as Reported by: NIALL DOE on 02/27/191708 Last Action: New Order on 02/27/191708 by NIALL DOE Atorvastatin Calcium (Atorvastatin Calcium) 20 Mg Tablet, 20 MG PO DAILY for FOR CHOLESTEROL, #30 Ref 0 (Reported) Entered as Reported by: NIALL DOE on 02/27/191708 Last Action: New Order on 02/27/191708 by NIALL DOE Doxazosin Mesylate (Doxazosin Mesylate) 2 Mg Tablet, 2 MG PO DAILY for htn, (Reported) Entered as Reported by: NIALL DOE on 02/27/191708 Last Action: New Order on 02/27/191708 by NIALL DOE Glyburide (Glyburide) 5 Mg Tablet, 1 TAB PO BID, #60 Ref 5 (Reported) Entered as Reported by: HERNAN SERRANO on 11/09/16 0856 Last Action: Reviewed on 02/27/191705 by NIALL DOE Insulin Glargine,Hum.rec.anlog (Lantus Solostar) 100 Unit/1 Ml Insuln.pen, 20 UNIT SQ QHS for dm, #15 Ref 5 (Reported) Entered as Reported by: NIALL DOE on 02/27/191710 Last Action: New Order on 02/27/191710 by NIALL DOE Insulin Lispro (Humalog) 100 Unit/1 Ml Cartridge, 6 UNIT SQ TIDWMEALS for dm, (Reported) Entered as Reported by: NIALL DOE on 02/27/191710 Last Action: New Order on 02/27/191710 by NIALL DOE Losartan Potassium (Losartan Potassium) 100 Mg Tablet, 100 MG PO DAILY for HYPERTENSION, (Reported) Entered as Reported by: NIALL DOE on 02/27/191708 Last Action: New Order on 02/27/191708 by NIALL DOE Omeprazole (Omeprazole) 40 Mg Capsule.dr, 40 MG PO DAILY for gerd, (Reported) Entered as Reported by: NIALL DOE on 02/27/191708 Last Action: New Order on 02/27/191708 by NIALL DOE Scheduled PRN Albuterol Sulfate (Proair Hfa Inhaler) 8.5 Gm Hfa.aer.ad, 1 PUFF INH PRN Q6HRS PRN for SHORTNESS OF BREATH, Ref 0 (Reported) Entered as Reported by: NIALL DOE on 02/27/191710 Last Action: New Order on 02/27/191710 by YRIS SCHROEDER MD April 01, 2019 08:49
--- NOTE | 2019-04-01 08:53 | SNU/HH DC ---
DISCHARGE ORDERS DISCHARGE INFORMATION: DISCHARGE DATE: April 01, 2019 FINAL DIAGNOSIS Problems Medical Problems: (1) Acute renal failure Status: Acute (2) Edema Status: Acute (3) Shortness of breath Status: Acute CONDITION ON DISCHARGE: Stable CODE STATUS: Code Status: DNR/DNI LTAC: ADMIT TO LTAC: Yes POST DISCHARGE ORDERS: ACTIVITY ORDERS: Activity as tolerated DIET AFTER DISCHARGE: PEG - jevity 48cc/hr WOUND/INCISION CARE: Reinforce dressing PRN CHECKS AFTER DISCHARGE: CHECKS AFTER DISCHARGE: Check blood press - daily, Check blood sugar, ac/hs FOLLOW-UP: PHYSICIAN FOLLOW-UP: Pulmonology LAB ORDERS FOR FOLLOW-UP: BMP, CBC TREATMENT/EQUIPMENT ORDERS: INFUSION EQUIPMENT NEEDED: PICC Line RESPIRATORY EQUIPMENT NEEDED: BiPAP Physical Therapy For: Evalulation/Treatment Occupational Therapy For: Evaluation/Treatment DISCHARGE MEDICATIONS: Home Meds Reported Medications Albuterol Sulfate (PROAIR HFA INHALER) 8.5 Gm Hfa.aer.ad, 1 PUFF INH PRN Q6HRS PRN for SHORTNESS OF BREATH, INHALER 0 Refills 02/27/19 Insulin Glargine,Hum.rec.anlog (LANTUS SOLOSTAR) 100 Unit/1 Ml Insuln.pen, 20 UNIT SQ QHS for dm, #15 ML 5 Refills 02/27/19 Insulin Lispro (HUMALOG) 100 Unit/1 Ml Cartridge, 6 UNIT SQ TIDWMEALS for dm, EACH 02/27/19 Doxazosin Mesylate (DOXAZOSIN MESYLATE) 2 Mg Tablet, 2 MG PO DAILY for htn, TAB 02/27/19 Omeprazole (OMEPRAZOLE) 40 Mg Capsule.dr, 40 MG PO DAILY for gerd, CAP 02/27/19 Amlodipine Besylate (AMLODIPINE BESYLATE) 10 Mg Tablet, 10 MG PO DAILY for htn, TAB 02/27/19 Atorvastatin Calcium (ATORVASTATIN CALCIUM) 20 Mg Tablet, 20 MG PO DAILY for FOR CHOLESTEROL, #30 TAB 0 Refills 02/27/19 Losartan Potassium (LOSARTAN POTASSIUM) 100 Mg Tablet, 100 MG PO DAILY for HYPERTENSION, TAB 02/27/19 Aspirin (ASPIRIN) 81 Mg Tab.chew, 81 MG PO DAILY for heart health, TAB.CHEW 02/27/19 Glyburide (GLYBURIDE) 5 Mg Tablet, 1 TAB PO BID, #60 TAB 5 Refills 11/09/16 Discontinued Reported Medications Atenolol (ATENOLOL) 50 Mg Tablet, 50 MG PO DAILY for hypertension, TAB 02/27/19 YRIS RUIZ MD April 01, 2019 08:53
--- NOTE | 2019-04-01 08:55 | NUR ---
SS following up with discharge planning. Authorization received for pt to transfer to [facility]. SS phoned and faxed discharge orders to [facility], ; fax [phone]. Pt will discharge today and go to [facility] at 1100 via [facility]. Pt's sister, Mimi, , verbally consented to pt choice and rights forms. Pt, pt's RN, and pt's sister notified.
[2019-04-01] MEDS ORDERED: fentaNYL PF VIAL 100 MCG/2 ML VIAL IV PRN (09:00)
--- NOTE | 2019-04-01 09:11 | PDOC ---
Objective: Objective: D/w RN - PEG functioning well, rectal tube in place for ease of care/minimize skin irritation w/ frequent small stools, place to DC to [facility]. Vital Signs: Vital Signs Date Time Temp Pulse Resp B/P (MAP) Pulse Ox O2 Delivery O2 Flow Rate FiO2 04/01/19 08:33 64 165/74 04/01/19 08:00 Mechanical Ventilator 04/01/19 06:00 16 95 04/01/19 04:00 98.8 98.8 PE: GEN: NAD HEENT: trach LUNGS: vent ABD: PEG in place, soft, non-tender NEURO/PSYCH: awake A/P: Resp failure s/ trach and PEG -- DC per primary. RJ MOFFETT April 01, 2019 09:11
[2019-04-01] MEDS: IPRATRPIUM/ALBUTEROL 0.5/2.5MG 3 ML NEBU. NEB SCH (09:19)
== END 2019-04-01 12:01 | DRG 4 ==
LOC: ER 11:22 → 6 SOUTH 15:53 → 1 WEST ICU 02-28 07:47
PROVIDERS: ADMIT Internal Medicine; ATTEND Internal Medicine
PROC: 0BH17EZ Insertion of Endotracheal Airway into Trachea, Via Natural or Artificial Opening (ICD-10-PCS; 2019-02-28)
PROC: 5A1955Z Respiratory Ventilation, Greater than 96 Consecutive Hours (ICD-10-PCS; 2019-02-28)
PROC: 02HV33Z Insertion of Infusion Device into Superior Vena Cava, Percutaneous Approach (ICD-10-PCS; 2019-03-04)
PROC: B548ZZA Ultrasonography of Superior Vena Cava, Guidance (ICD-10-PCS; 2019-03-04)
PROC: 0B110F4 Bypass Trachea to Cutaneous with Tracheostomy Device, Open Approach (ICD-10-PCS; 2019-03-26)
PROC: 0DJ08ZZ Inspection of Upper Intestinal Tract, Via Natural or Artificial Opening Endoscopic (ICD-10-PCS; 2019-03-27)
PROC: 0DH63UZ Insertion of Feeding Device into Stomach, Percutaneous Approach (ICD-10-PCS; principal; 2019-03-27 11:00)
DX: A41.9 Sepsis, unspecified organism (principal); J69.0 Pneumonitis due to inhalation of food and vomit; J96.01 Acute respiratory failure with hypoxia; J96.02 Acute respiratory failure with hypercapnia; I46.9 Cardiac arrest, cause unspecified; N17.0 Acute kidney failure with tubular necrosis; R53.2 Functional quadriplegia; I50.33 Acute on chronic diastolic (congestive) heart failure; I13.0 Hypertensive heart and chronic kidney disease with heart failure and stage 1 through stage 4 chronic kidney disease, or unspecified chronic kidney disease; Z99.11 Dependence on respirator [ventilator] status; G93.1 Anoxic brain damage, not elsewhere classified; E87.0 Hyperosmolality and hypernatremia; E46 Unspecified protein-calorie malnutrition; G72.81 Critical illness myopathy; Z68.42 Body mass index [BMI] 45.0-49.9, adult; E78.00 Pure hypercholesterolemia, unspecified; N43.3 Hydrocele, unspecified; N50.89 Other specified disorders of the male genital organs; N18.9 Chronic kidney disease, unspecified; E11.22 Type 2 diabetes mellitus with diabetic chronic kidney disease; E11.40 Type 2 diabetes mellitus with diabetic neuropathy, unspecified; M19.90 Unspecified osteoarthritis, unspecified site; E11.51 Type 2 diabetes mellitus with diabetic peripheral angiopathy without gangrene; E66.01 Morbid (severe) obesity due to excess calories; E78.5 Hyperlipidemia, unspecified; R13.12 Dysphagia, oropharyngeal phase; K29.70 Gastritis, unspecified, without bleeding; N49.2 Inflammatory disorders of scrotum; E11.649 Type 2 diabetes mellitus with hypoglycemia without coma; I48.91 Unspecified atrial fibrillation; E86.0 Dehydration; B35.1 Tinea unguium; I07.1 Rheumatic tricuspid insufficiency; E87.6 Hypokalemia; I27.20 Pulmonary hypertension, unspecified; I50.82 Biventricular heart failure; K59.00 Constipation, unspecified; N28.89 Other specified disorders of kidney and ureter; T38.0X5A Adverse effect of glucocorticoids and synthetic analogues, initial encounter; Y92.89 Other specified places as the place of occurrence of the external cause; Z89.511 Acquired absence of right leg below knee; Z83.3 Family history of diabetes mellitus; Z82.49 Family history of ischemic heart disease and other diseases of the circulatory system; Z87.891 Personal history of nicotine dependence
CPT/HCPCS: 36415; 36556; 36569; 36600; 43246; 71045; 74018; 74022; 74176; 76770; 76870; 76937; 80048; 80053; 80069; 80307; 81001; 82040; 82150; 82310; 82553; 82805; 82962; 83036; 83605; 83690; 83735; 83880; 84100; 84145; 84443; 84478; 84484; 85007; 85025; 85027; 85610; 85730; 86850; 86900; 86901; 87040; 87070; 87071; 87075; 87086; 87205; 87641; 87804; 89050; 93005; 93306; 93970; 94002; 94003; 94640; A7015; C1892; J0282; J0360; J0456; J0461; J0690; J0692; J0696; J1160; J1265; J1630; J1644; J1815; J1940; J2020; J2060; J2185; J2248; J2250; J2704; J2765; J2920; J2930; J3010; J3480; J3490; J7030; J7040; J7050; J7613; J7620; P9046; 99285-25

== ENCOUNTER → 2019-05-21 | Day surgery (SDC) | payer MEDICARE ==
[~2019-05-21] MED LIST changes: +ALBU2.5V8 INH; +AMLO10TA8 PO; +ASPI-630 PO; +ATEN50TA PO; +DOXA2TAB2 PO; +HYDROmorphone 2 MG/ML VIAL IV PRN; +INSU100C SQ; +INSU100I13 SQ; +IV RINGERS,LACTATED 1000ML 1,000 ML IV SCH; +LIDOCAINE 1% PF 2 ML VIAL. ID PRN; +LIDOCAINE 2% PF 5 ML VIAL. ONE; +LOSA100T14 PO; +MORPHINE SULFATE 2 MG/ML VIAL. IV PRN; +OMEP40CA5 PO; +ONDANSETRON PF 4 MG/2 ML VIAL. IV PRN; +PROCHLORPERAZINE 10 MG/2 ML VIAL. IV PRN; +PROPOFOL 20 ML IV ONE; +fentaNYL PF VIAL 100 MCG/2 ML VIAL IV PRN
--- NOTE | 2019-05-21 14:34 | CONS ---
DATE OF CONSULTATION: 05/21/2019 REFERRING PHYSICIAN: Ti Villavicencio MD. REASON FOR CONSULTATION: Improved oropharyngeal dysphagia with retained G-tube. HISTORY OF PRESENT ILLNESS: This is a 58-year-old male with past medical history significant for cardiopulmonary arrest who is status post trach with removal, status post PEG with improved oropharyngeal dysphagia. He is here today for PEG removal. He also has a history of diabetes, hyperlipidemia and hypertension. He is tolerating p.o. at this time, has no difficulty swallowing, wishes to have the tube removed. PAST MEDICAL HISTORY: Status post cardiac arrest, chronic heart disease, [place], hypertension, diabetes, hyperlipidemia. ALLERGIES: None. MEDICATIONS: Include albuterol, amlodipine, aspirin, atorvastatin, doxazosin, glyburide, insulin, losartan and omeprazole. FAMILY AND SOCIAL HISTORY: He is presently disabled. He does not drink or smoke. He is adopted family foss. PAST SURGICAL HISTORY: Per records with the previous BKA and a tonsillectomy. REVIEW OF SYSTEMS: Per records. PHYSICAL EXAMINATION: GENERAL: Reveals a well-nourished, well-developed, male who is alert, cooperative, in no acute distress. VITAL SIGNS: Temperature 97.3, pulse 74, respiratory rate is 18. HEENT: Reveals normocephalic, atraumatic head. Pupils and extraocular movements are not tested. Sclerae anicteric. NECK: Supple. LUNGS: Clear. CARDIOVASCULAR: Reveals an S1, S2 without S3, S4 or appreciable murmur. ABDOMEN: Reveals soft abdomen, normal bowel sounds without appreciable hepatosplenomegaly. Intact G-tube is noted in the left upper quadrant. EXTREMITIES: Reveals BKA on the one side on the right. IMPRESSION AND PLAN: Oropharyngeal dysphagia, improved. Recommend EGD with PEG removal. Risks and benefits of procedure including the risk of hemorrhage and perforation have been discussed with the patient who is willing to proceed. MAKENNA BADILLO MD DR: GERARDO/antoni JOB#: [id number] / [id number]
[2019-05-21 14:43] VITALS: BP 108/65
== END ==
LOC: ENDOS 13:14
PROVIDERS: ATTEND Internal Medicine Gastroenterology
DX: K94.23 Gastrostomy malfunction (principal); K29.50 Unspecified chronic gastritis without bleeding; I11.9 Hypertensive heart disease without heart failure; E11.9 Type 2 diabetes mellitus without complications; E78.5 Hyperlipidemia, unspecified; E11.51 Type 2 diabetes mellitus with diabetic peripheral angiopathy without gangrene; I25.2 Old myocardial infarction; Z79.4 Long term (current) use of insulin; Z79.899 Other long term (current) drug therapy; Z93.1 Gastrostomy status; Z98.890 Other specified postprocedural states; I25.10 Atherosclerotic heart disease of native coronary artery without angina pectoris
CPT/HCPCS: 43247; J2001; J2704

== ENCOUNTER 2019-06-05 12:30 | Inpatient (IN) | payer MEDICARE ==
[~2019-06-05] VITALS: Ht 172.7 cm; Wt 113.4 kg
[~2019-06-05 12:30] MED LIST changes: -HYDROmorphone 2 MG/ML VIAL IV PRN; -IV RINGERS,LACTATED 1000ML 1,000 ML IV SCH; -LIDOCAINE 1% PF 2 ML VIAL. ID PRN; -LIDOCAINE 2% PF 5 ML VIAL. ONE; -MORPHINE SULFATE 2 MG/ML VIAL. IV PRN; -ONDANSETRON PF 4 MG/2 ML VIAL. IV PRN; -PROCHLORPERAZINE 10 MG/2 ML VIAL. IV PRN; -PROPOFOL 20 ML IV ONE; -fentaNYL PF VIAL 100 MCG/2 ML VIAL IV PRN
[2019-06-05 13:06] LABS: BASO # 0.1 x10^3/uL (0.0-0.2); BASO % 1 % (0-3); EOS # 0.1 x10^3/uL (0.0-0.7); EOS % 1 % (0-3); HEMATOCRIT 47.9 % (39.0-53.0); HEMOGLOBIN 15.9 g/dL (13.0-17.5); LYMPH # 1.1 x10^3/uL (1.0-4.8); LYMPH % 7 % (24-48); MEAN CORPUSCULAR HEMOGLOBIN 31 pg (25-35); MEAN CORPUSCULAR HGB CONC 33 g/dL (31-37); MEAN CORPUSCULAR VOLUME 94 fL (79-100); MONO # 0.8 x10^3/uL (0.0-1.1); MONO % 5 % (0-9); NEUT % 86 % (31-73); PLATELET COUNT 385 x10^3/uL (140-400); RED BLOOD COUNT 5.08 x10^6/uL (4.30-5.70); RED CELL DISTRIBUTION WIDTH 15.2 % (11.5-14.5); WHITE BLOOD COUNT 15.2 x10^3/uL (4.0-11.0)
[2019-06-05 13:13] LABS: CALCIUM 9.5 mg/dL (8.5-10.1); CREATININE 1.3 mg/dL (0.7-1.3); GFR 57.1; POTASSIUM 3.5 mmol/L (3.5-5.1)
[2019-06-05 13:18] LABS: ALBUMIN 3.4 g/dL (3.4-5.0); ALBUMIN/GLOBULIN RATIO 0.6 (1.0-1.7); C-REACTIVE PROTEIN 28.4 mg/L (0-3.3); TOTAL BILIRUBIN 0.8 mg/dL (0.2-1.0); TOTAL PROTEIN 8.8 g/dL (6.4-8.2)
[2019-06-05] MEDS ORDERED: IV NORMAL SALINE 1000ML BAG 1,000 ML IV ONE (13:45)
--- NOTE | 2019-06-05 14:17 | PHYS DOC ---
Past Medical History Past Medical History: Diabetes-Type II, High Cholesterol, Hypertension, Other Additional Past Medical Histor: CARDIAC ARREST,RESP ARREST,TRACH HX, Past Surgical History: Tonsillectomy, Other Additional Past Surgical Histo: R BKA Alcohol Use: None Drug Use: None Adult General Chief Complaint Chief Complaint: DIARRHEA HPI HPI Patient is a 58 year old female with history of recent in-hospital cardiac arrest with prolonged stay at LTAC facility with discharge earlier this week who presents with multiple episodes of watery diarrhea over the past 48 hours accompanied with fecal incontinence. Patient denies fever, chills nausea vomiting and sweats. Reports occasional abdominal cramping with diarrhea. Denies abdominal pain or bloody stools. Denies current or recent antibiotics. No other acute symptoms or complaints. [] Review of Systems Review of Systems Review symptoms as per history of present illness. All other review symptoms are negative. All other systems were reviewed and found to be within normal limits, except as documented in this note. Current Medications Current Medications Current Medications Medications (Trade) Dose Ordered Sig/Lula Start Time Stop Time Status Last Admin Dose Admin Sodium Chloride 1,000 ml @ 1,000 mls/hr 1X ONCE 06/05/19 13:45 06/05/19 14:44 06/05/19 13:58 1,000 MLS/HR Allergies Allergies Allergies Coded Allergies Type Severity Reaction Last Updated Verified No Known Drug Allergies 05/21/19 No Physical Exam Physical Exam Constitutional: Well developed, well nourished, no acute distress, non-toxic appearance. [] HENT: Normocephalic, atraumatic, bilateral external ears normal, oropharynx moist, no oral exudates, nose normal. [] Eyes: PERRLA, EOMI, conjunctiva normal, no discharge. [] Neck: Normal range of motion, no tenderness, supple, no stridor. [] Cardiovascular:Heart rate regular rhythm, no murmur [] Lungs & Thorax: Bilateral breath sounds clear to auscultation [] Abdomen: Bowel sounds normal, soft, no tenderness, no masses, no pulsatile mas ses. [] Skin: Warm, dry, no erythema, no rash. [] Back: No tenderness, no CVA tenderness. [] Extremities: No tenderness, right BKA.. [] Neurologic: Alert and oriented X 3, normal motor function, normal sensory fu nction, no focal deficits noted. [] Psychologic: Affect normal, judgement normal, mood normal. [] Current Patient Data Vital Signs Vital Signs Date Time Temp Pulse Resp B/P (MAP) Pulse Ox O2 Delivery O2 Flow Rate FiO2 06/05/19 12:30 99.0 71 20 147/75 (99) 94 Room Air 99.0 Lab Values Laboratory Tests Test 06/05/19 12:43 White Blood Count 15.2 x10^3/uL (4.0-11.0) H Red Blood Count 5.08 x10^6/uL (4.30-5.70) Hemoglobin 15.9 g/dL (13.0-17.5) Hematocrit 47.9 % (39.0-53.0) Mean Corpuscular Volume 94 fL (79-100) Mean Corpuscular Hemoglobin 31 pg (25-35) Mean Corpuscular Hemoglobin Concent 33 g/dL (31-37) Red Cell Distribution Width 15.2 % (11.5-14.5) H Platelet Count 385 x10^3/uL (140-400) Neutrophils (%) (Auto) 86 % (31-73) H Lymphocytes (%) (Auto) 7 % (24-48) L Monocytes (%) (Auto) 5 % (0-9) Eosinophils (%) (Auto) 1 % (0-3) Basophils (%) (Auto) 1 % (0-3) Neutrophils # (Auto) 13.0 x10^3uL (1.8-7.7) H Lymphocytes # (Auto) 1.1 x10^3/uL (1.0-4.8) Monocytes # (Auto) 0.8 x10^3/uL (0.0-1.1) Eosinophils # (Auto) 0.1 x10^3/uL (0.0-0.7) Basophils # (Auto) 0.1 x10^3/uL (0.0-0.2) Platelet Estimate Pending Sodium Level 137 mmol/L (136-145) Potassium Level 3.5 mmol/L (3.5-5.1) Chloride Level 96 mmol/L (98-107) L Carbon Dioxide Level 29 mmol/L (21-32) Anion Gap 12 (6-14) Blood Urea Nitrogen 17 mg/dL (8-26) Creatinine 1.3 mg/dL (0.7-1.3) Estimated GFR (Cockcroft-Gault) 57.1 BUN/Creatinine Ratio 13 (6-20) Glucose Level 53 mg/dL (70-99) L Calcium Level 9.5 mg/dL (8.5-10.1) Total Bilirubin 0.8 mg/dL (0.2-1.0) Aspartate Amino Transferase (AST) 20 U/L (15-37) Alanine Aminotransferase (ALT) 23 U/L (16-63) Alkaline Phosphatase 109 U/L (46-116) C-Reactive Protein, Quantitative 28.4 mg/L (0-3.3) H Total Protein 8.8 g/dL (6.4-8.2) H Albumin 3.4 g/dL (3.4-5.0) Albumin/Globulin Ratio 0.6 (1.0-1.7) L Laboratory Tests 06/05/19 12:43 Laboratory Tests 06/05/19 12:43 EKG EKG [] Radiology/Procedures Radiology/Procedures [] Course & Med Decision Making Course & Med Decision Making Pertinent Labs and Imaging studies reviewed. (See chart for details) [Labs reviewed. Presentation concerning for enteritis with risk for C difficile infection. Dr. Acuna to admit. ] Dragon Disclaimer Dragon Disclaimer This electronic medical record was generated, in whole or in part, using a voice recognition dictation system. Departure Departure Impression: Primary Impression: Sepsis Additional Impression: Enteritis Disposition: ADMITTED INPATIENT Condition: LEFT WITHOUT BEING SEEN Referrals: KRYSTIAN SAMAYOA MD (PCP) Problem Qualifiers GIO HAWK DO Jun 05, 2019 14:17
[2019-06-05 14:26] LABS: % EOS 1 % (0-5); % LYMPHS 8 % (24-48); % MONOS 6 % (0-10); % SEGS 85 % (35-66)
[2019-06-05 14:29] LABS: ANISOCYTOSIS SLIGHT; PLT ESTIMATE INCREASED (ADEQUATE); SCHISTOCYTES OCC
--- NOTE | 2019-06-05 14:40 | RAD ---
CHEST AP ONLY Clinical indications: Cough. COMPARISON: March 31, 2019. Findings: No acute lung infiltrate or pleural effusion or pulmonary edema or lung mass or pneumothorax is seen. The previously seen bilateral lung infiltrates or pulmonary edema have resolved. The heart size, pulmonary vasculature, mediastinum and both twan are unremarkable. Impression: No acute radiographic abnormality is seen. Electronically signed by: Rayray Bradshaw MD (06/05/2019 2:37 PM) [facility]
[2019-06-05] MEDS ORDERED: DEXTROSE 50% 25 GM / 50ML DISP.SYRIN. IV ONE ×2 (15:31→15:45)
[2019-06-05] MEDS ORDERED: ALBUTEROL SULFATE 2.5 MG/3 ML NEBU. INH PRN (15:45)
[2019-06-05] MEDS ORDERED: DEXTROSE 50% 25 GM / 50ML DISP.SYRIN. IV PRN (15:45)
--- NOTE | 2019-06-05 15:57 | PDOC1 ---
History and Physical Date of Admission Date of Admission DATE: 06/05/19 TIME: 15:50 Identification/Chief Complaint Chief Complaint diarrhea Source Source: Chart review, Patient History of Present Illness History of Present Illness Mr. Spain is a 58 year old with a long recent hospitalization here, with sepsis, shock, respiratory failure and ARDS. 6 weeks here unitl 04/01, DC to LT[facility], there he was weaned off the vent and learned how to eat and walk again. He hasa been doing a little better as he can, still walks with walker, had felt well until 2 days ago, new onset of freqenet diarrhea. malordorous and acidic smell. Noted nasuea, and low PO intake, not real abd pain. possible sweats but no fever, no chillls, he weakness and freq stool have resulted in some fecal incontinence. Past Surgical History Past Surgical History: Tonsillectomy Family History Family History: Diabetes, Hypertension, Osteo Arthiritis Social History Smoke: No ALCOHOL: none Drugs: None Current Problem List Problem List Problems Medical Problems: (1) Enteritis Status: Acute (2) Sepsis Status: Acute Current Medications Current Medications Current Medications Sodium Chloride 1,000 ml @ 1,000 mls/hr 1X ONCE IV Last administered on 06/05/19at 13:58; Start 06/05/19 at 13:45; Stop 06/05/19 at 14:44; Status DC Dextrose (Dextrose 50%-Water Syringe) 25 gm STK-MED ONCE IV ; Start 06/05/19 at 15:31; Stop 06/05/19 at 15:32; Status DC Active Scripts Active Reported Proair Hfa Inhaler (Albuterol Sulfate) 8.5 Gm Hfa.aer.ad 1 Puff INH PRN Q6HRS PRN Lantus Solostar (Insulin Glargine,Hum.rec.anlog) 100 Unit/1 Ml Insuln.pen 20 Unit SQ QHS Humalog (Insulin Lispro) 100 Unit/1 Ml Cartridge 6 Unit SQ TIDWMEALS Doxazosin Mesylate 2 Mg Tablet 2 Mg PO DAILY Omeprazole 40 Mg Capsule.dr 40 Mg PO DAILY Amlodipine Besylate 10 Mg Tablet 10 Mg PO DAILY Atorvastatin Calcium 20 Mg Tablet 20 Mg PO DAILY Losartan Potassium 100 Mg Tablet 100 Mg PO DAILY Aspirin 81 Mg Tab.chew 81 Mg PO DAILY Glyburide 5 Mg Tablet 1 Tab PO BID Allergies Allergies: Coded Allergies: No Known Drug Allergies (Unverified , 05/21/19) ROS General: No: Chills, Night Sweats, Fatigue, Malaise, Appetite, Other PSYCHOLOGICAL ROS: No: Anxiety, Behavioral Disorder, Concentration difficultie, Decreased libido, Depression, Disorientation, Hallucinations, Hostility, Irritablity, Memory difficulties, Mood Swings, Obsessive thoughts, Physical abuse, Sexual abuse, Sleep disturbances, Suicidal ideation, Other Eyes: No Blurry vision, No Decreased vision, No Double vision, No Dry eyes, No Excessive tearing, No Eye Pain, No Itchy Eyes, No Loss of vision, No Photophobia, No Scotomata, No Uses contacts, No Uses glasses, No Other HEENT: No: Heacaches, Visual Changes, Hearing change, Nasal congestion, Nasal discharge, Oral lesions, Sinus pain, Sore Throat, Epistaxis, Sneezing, Snoring, Tinnitus, Vertigo, Vocal changes, Other Cardiovascular: No Chest Pain, No Palpitations, No Orthopnea, No Paroxysmal Noc. Dyspnea, No Edema, No Lt Headedness, No Other Gastrointestinal: Yes Nausea, Yes Diarrhea; No Vomiting, No Abdominal Pain, No Constipation, No Melena, No Hematochezia, No Other Genitourinary: No Dysuria, No Frequency, No Incontinence, No Hematuria, No Retention, No Discharge, No Urgency, No Pain, No Flank Pain, No Other, No , No , No , No , No , No , No Musculoskeletal: Yes Joint Stiffness Neurological: No Behavorial Changes, No Bowel/Bladder ControlChng, No Confusion, No Dizziness, No Gait Disturbance, No Headaches, No Impaired Coord/balance, No Memory Loss, No Numbness/Tingling, No Seizures, No Speech Problems, No Tremors, No Visual Changes, No Weakness, No Other Skin: Yes Dry Skin; No Eczema, No Hair Changes, No Lumps, No Mole Changes, No Mottling, No Nail Changes, No Pruritus, No Rash, No Skin Lesion Changes, No Other, No Acne Physical Exam General: Alert, Cooperative, mild distress HEENT: PERRLA, EOMI Lungs: Clear to auscultation, Normal air movement Heart: S1S2, no gallops, no murmurs Extremities: No edema, Normal pulses Skin: No rashes, No breakdown Neuro: Normal speech, Normal tone Psych/Mental Status: Mental status NL, Mood NL Vitals Vitals Vital Signs Date Time Temp Pulse Resp B/P (MAP) Pulse Ox O2 Delivery O2 Flow Rate FiO2 06/05/19 14:58 70 14 102/58 (73) 92 Room Air 06/05/19 12:30 99.0 99.0 Labs Labs Laboratory Tests Test 06/05/19 12:43 06/05/19 15:33 White Blood Count 15.2 x10^3/uL (4.0-11.0) Red Blood Count 5.08 x10^6/uL (4.30-5.70) Hemoglobin 15.9 g/dL (13.0-17.5) Hematocrit 47.9 % (39.0-53.0) Mean Corpuscular Volume 94 fL (79-100) Mean Corpuscular Hemoglobin 31 pg (25-35) Mean Corpuscular Hemoglobin Concent 33 g/dL (31-37) Red Cell Distribution Width 15.2 % (11.5-14.5) Platelet Count 385 x10^3/uL (140-400) Neutrophils (%) (Auto) 86 % (31-73) Lymphocytes (%) (Auto) 7 % (24-48) Monocytes (%) (Auto) 5 % (0-9) Eosinophils (%) (Auto) 1 % (0-3) Basophils (%) (Auto) 1 % (0-3) Neutrophils # (Auto) 13.0 x10^3uL (1.8-7.7) Lymphocytes # (Auto) 1.1 x10^3/uL (1.0-4.8) Monocytes # (Auto) 0.8 x10^3/uL (0.0-1.1) Eosinophils # (Auto) 0.1 x10^3/uL (0.0-0.7) Basophils # (Auto) 0.1 x10^3/uL (0.0-0.2) Segmented Neutrophils % 85 % (35-66) Lymphocytes % 8 % (24-48) Monocytes % 6 % (0-10) Eosinophils % 1 % (0-5) Platelet Estimate Increased (ADEQUATE) Anisocytosis Slight Schistocytes Occ Sodium Level 137 mmol/L (136-145) Potassium Level 3.5 mmol/L (3.5-5.1) Chloride Level 96 mmol/L (98-107) Carbon Dioxide Level 29 mmol/L (21-32) Anion Gap 12 (6-14) Blood Urea Nitrogen 17 mg/dL (8-26) Creatinine 1.3 mg/dL (0.7-1.3) Estimated GFR (Cockcroft-Gault) 57.1 BUN/Creatinine Ratio 13 (6-20) Glucose Level 53 mg/dL (70-99) Lactic Acid Level 1.8 mmol/L (0.4-2.0) Calcium Level 9.5 mg/dL (8.5-10.1) Total Bilirubin 0.8 mg/dL (0.2-1.0) Aspartate Amino Transf (AST/SGOT) 20 U/L (15-37) Alanine Aminotransferase (ALT/SGPT) 23 U/L (16-63) Alkaline Phosphatase 109 U/L (46-116) C-Reactive Protein, Quantitative 28.4 mg/L (0-3.3) Total Protein 8.8 g/dL (6.4-8.2) Albumin 3.4 g/dL (3.4-5.0) Albumin/Globulin Ratio 0.6 (1.0-1.7) Glucose (Fingerstick) 34 mg/dL (70-99) Laboratory Tests Test 06/05/19 12:43 06/05/19 15:33 White Blood Count 15.2 x10^3/uL (4.0-11.0) Red Blood Count 5.08 x10^6/uL (4.30-5.70) Hemoglobin 15.9 g/dL (13.0-17.5) Hematocrit 47.9 % (39.0-53.0) Mean Corpuscular Volume 94 fL (79-100) Mean Corpuscular Hemoglobin 31 pg (25-35) Mean Corpuscular Hemoglobin Concent 33 g/dL (31-37) Red Cell Distribution Width 15.2 % (11.5-14.5) Platelet Count 385 x10^3/uL (140-400) Neutrophils (%) (Auto) 86 % (31-73) Lymphocytes (%) (Auto) 7 % (24-48) Monocytes (%) (Auto) 5 % (0-9) Eosinophils (%) (Auto) 1 % (0-3) Basophils (%) (Auto) 1 % (0-3) Neutrophils # (Auto) 13.0 x10^3uL (1.8-7.7) Lymphocytes # (Auto) 1.1 x10^3/uL (1.0-4.8) Monocytes # (Auto) 0.8 x10^3/uL (0.0-1.1) Eosinophils # (Auto) 0.1 x10^3/uL (0.0-0.7) Basophils # (Auto) 0.1 x10^3/uL (0.0-0.2) Segmented Neutrophils % 85 % (35-66) Lymphocytes % 8 % (24-48) Monocytes % 6 % (0-10) Eosinophils % 1 % (0-5) Platelet Estimate Increased (ADEQUATE) Anisocytosis Slight Schistocytes Occ Sodium Level 137 mmol/L (136-145) Potassium Level 3.5 mmol/L (3.5-5.1) Chloride Level 96 mmol/L (98-107) Carbon Dioxide Level 29 mmol/L (21-32) Anion Gap 12 (6-14) Blood Urea Nitrogen 17 mg/dL (8-26) Creatinine 1.3 mg/dL (0.7-1.3) Estimated GFR (Cockcroft-Gault) 57.1 BUN/Creatinine Ratio 13 (6-20) Glucose Level 53 mg/dL (70-99) Lactic Acid Level 1.8 mmol/L (0.4-2.0) Calcium Level 9.5 mg/dL (8.5-10.1) Total Bilirubin 0.8 mg/dL (0.2-1.0) Aspartate Amino Transf (AST/SGOT) 20 U/L (15-37) Alanine Aminotransferase (ALT/SGPT) 23 U/L (16-63) Alkaline Phosphatase 109 U/L (46-116) C-Reactive Protein, Quantitative 28.4 mg/L (0-3.3) Total Protein 8.8 g/dL (6.4-8.2) Albumin 3.4 g/dL (3.4-5.0) Albumin/Globulin Ratio 0.6 (1.0-1.7) Glucose (Fingerstick) 34 mg/dL (70-99) VTE Prophylaxis Ordered VTE Prophylaxis Devices: No VTE Pharmacological Prophylaxi: Yes Assessment/Plan Assessment/Plan diarrhea with nausea sepsis, leukocytosis , CRP high, fluid given smell of c. diff per ER staff, will order abx x2 for sepsis with c. diff. weakness and debility DM2, with acute hypoglycemia, hold glyburide, start D5 fluid 125/hr BMI 38 he had previously been on disabilty for r PAUL JOHNSON MD Jun 05, 2019 15:56
[2019-06-05 17:00] VITALS: BP 102/67
[2019-06-05] MEDS: INSULIN LISPRO 300 UNITS/3 ML INSULN.PEN. SQ SCH (17:00)
[2019-06-05] MEDS: ENOXAPARIN 40 MG/0.4 ML SYRINGE. SQ SCH (19:00)
[2019-06-05] MEDS: VANCOMYCIN 125 MG/2.5 ML ORAL SOLUTION. PO SCH ×2 (19:00→22:20)
[2019-06-05] MEDS: POTASSIUM CL 20MEQ D5-0.45NACL 1,000 ML IV SCH (19:02)
[2019-06-05 19:59] VITALS: BP 99/62
--- NOTE | 2019-06-05 19:59 | NUR ---
Pt arriving via gurney from ED @ 1630. Assisted to bed. Completed admission assessment. Wound pics taken. Meal tray provided. Will continue to monitor.
[2019-06-05] MEDS: ATORVASTATIN CALCIUM 20 MG TABLET PO SCH (22:20)
[2019-06-05 23:23] VITALS: BP 93/53
[2019-06-06 03:45] VITALS: BP 107/54
[2019-06-06] MEDS: POTASSIUM CL 20MEQ D5-0.45NACL 1,000 ML IV SCH ×4 (03:55→23:45)
[2019-06-06 04:35] LABS: BASO % 0 % (0-3); EOS # 0.2 x10^3/uL (0.0-0.7); EOS % 2 % (0-3); HEMATOCRIT 41.4 % (39.0-53.0); HEMOGLOBIN 13.7 g/dL (13.0-17.5); LYMPH # 1.6 x10^3/uL (1.0-4.8); LYMPH % 19 % (24-48); MEAN CORPUSCULAR HEMOGLOBIN 31 pg (25-35); MEAN CORPUSCULAR HGB CONC 33 g/dL (31-37); MEAN CORPUSCULAR VOLUME 94 fL (79-100); MONO # 0.7 x10^3/uL (0.0-1.1); MONO % 8 % (0-9); NEUT # 5.7 x10^3uL (1.8-7.7); NEUT % 71 % (31-73); PLATELET COUNT 274 x10^3/uL (140-400); RED BLOOD COUNT 4.41 x10^6/uL (4.30-5.70); RED CELL DISTRIBUTION WIDTH 15.1 % (11.5-14.5); WHITE BLOOD COUNT 8.1 x10^3/uL (4.0-11.0)
[2019-06-06 05:04] LABS: ALBUMIN 2.5 g/dL (3.4-5.0); ALBUMIN/GLOBULIN RATIO 0.6 (1.0-1.7); CALCIUM 8.3 mg/dL (8.5-10.1); CREATININE 1.1 mg/dL (0.7-1.3); GFR 69.2; POTASSIUM 3.1 mmol/L (3.5-5.1); TOTAL BILIRUBIN 0.7 mg/dL (0.2-1.0); TOTAL PROTEIN 6.6 g/dL (6.4-8.2)
[2019-06-06 07:00] VITALS: BP 112/62
[2019-06-06] MEDS: INSULIN LISPRO 300 UNITS/3 ML INSULN.PEN. SQ SCH ×6 (08:00→17:35)
[2019-06-06] MEDS: PANTOPRAZOLE 40 MG TABLET.DR. PO SCH (08:47)
[2019-06-06] MEDS: VANCOMYCIN 125 MG/2.5 ML ORAL SOLUTION. PO SCH ×4 (08:48→20:30)
[2019-06-06] MEDS: ASPIRIN CHEWABLE 81 MG TABLET. PO SCH (08:48)
[2019-06-06] MEDS: amLODIPine BESYLATE 10 MG TABLET PO SCH (09:00)
[2019-06-06] MEDS: DOXAZOSIN MESYLATE 1 MG TABLET. PO SCH (09:00)
[2019-06-06] MEDS: LOSARTAN POTASSIUM 50 MG TABLET. PO SCH (09:00)
--- NOTE | 2019-06-06 10:38 | PDOC2 ---
CONSULT Date of Consult Date of Consult DATE: 06/06/19 TIME: 10:29 Identification/Chief Complaint Chief Complaint Diarrhea, decreased appetite, lower abdominal cramping History of Present Illness Reason for Visit: This is a 58-year-old gentleman who presents with a 2-3 day history of severe diarrhea. He describes multiple loose bowel movements with incontinence and some lower abdominal cramping. He is unable to elicit an inciting event. No fever or chills. No one else is ill at home. He has not taken any recent antibiotics or new medications and he did have a prolonged severe illness and hospitalization recently requiring intubation and PEG tube. He was able to have the tube removed and was in rehabilitation but then returned home. At home he has been eating although he claims his appetite is poor but was having regular bowel movements and then recently some constipation. He denies any laxative use. He denies any rectal bleeding, melena, nausea or vomiting. Because of the nature of his illness and his debilitated status he was admitted for evaluation and management. Curiously since admission yesterday afternoon he's had no other diarrhea. Past Medical History Infectious disease: Other (recent admission with sepsis requiring intubation, respiratory failure, tracheostomy and PEG tube) Past Surgical History Past Surgical History: Tonsillectomy Family History Family History: Diabetes, Hypertension, Osteo Arthiritis Social History No ALCOHOL: none Drugs: None Lives: Roommate Current Problem List Problem List Problems Medical Problems: (1) Enteritis Status: Acute (2) Sepsis Status: Acute Current Medications Current Medications Current Medications Sodium Chloride 1,000 ml @ 1,000 mls/hr 1X ONCE IV Last administered on 06/05/19at 13:58; Start 06/05/19 at 13:45; Stop 06/05/19 at 14:44; Status DC Dextrose (Dextrose 50%-Water Syringe) 25 gm STK-MED ONCE IV ; Start 06/05/19 at 15:31; Stop 06/05/19 at 15:32; Status DC Vancomycin HCl (Vancomycin Oral Solution) 125 mg [id number] PO Last administered on 06/06/19at 08:48; Start 06/05/19 at 16:00 Metronidazole 100 ml @ 100 mls/hr Q8HRS IV Last administered on 06/06/19at 06:16; Start 06/05/19 at 15:45 Potassium Chloride/Dextrose/ Sod Cl 1,000 ml @ 125 mls/hr Q8H IV Last administered on 06/06/19at 04:58; Start 06/05/19 at 15:45 Insulin Human Lispro (HumaLOG) 0-5 UNITS TIDWMEALS SQ ; Start 06/05/19 at 17:00 Dextrose (Dextrose 50%-Water Syringe) 12.5 gm PRN Q15MIN PRN IV SEE COMMENTS; Start 06/05/19 at 15:45 Dextrose (Dextrose 50%-Water Syringe) 25 gm 1X ONCE IV Last administered on 06/05/19at 15:48; Start 06/05/19 at 15:45; Stop 06/05/19 at 15:47; Status DC Albuterol Sulfate (Ventolin Neb Soln) 2.5 mg PRN Q6HRS PRN INH SHORTNESS OF BREATH; Start 06/05/19 at 15:45 Amlodipine Besylate (Norvasc) 10 mg DAILY PO ; Start 06/06/19 at 09:00 Aspirin (Children'S Aspirin) 81 mg DAILY PO Last administered on 06/06/19at 08:48; Start 06/06/19 at 09:00 Atorvastatin Calcium (Lipitor) 20 mg QHS PO Last administered on 06/05/19at 22:20; Start 06/05/19 at 21:00 Doxazosin Mesylate (Cardura) 2 mg DAILY PO ; Start 06/06/19 at 09:00 Insulin Human Lispro (HumaLOG) 6 units TIDWMEALS SQ ; Start 06/06/19 at 08:00 Pantoprazole Sodium (Protonix) 40 mg DAILYAC PO Last administered on 06/06/19at 08:47; Start 06/06/19 at 07:30 Losartan Potassium (Cozaar) 50 mg DAILY PO ; Start 06/06/19 at 09:00 Enoxaparin Sodium (Lovenox Per Pharmacy Prophylaxis Dosing) 1 each PRN DAILY PRN MC SEE COMMENTS; Start 06/05/19 at 16:00 Enoxaparin Sodium (Lovenox 40mg Syringe) 40 mg Q24H SQ Last administered on 06/05/19at 19:00; Start 06/05/19 at 17:00 Active Scripts Active Reported Proair Hfa Inhaler (Albuterol Sulfate) 8.5 Gm Hfa.aer.ad 1 Puff INH PRN Q6HRS PRN Lantus Solostar (Insulin Glargine,Hum.rec.anlog) 100 Unit/1 Ml Insuln.pen 20 Unit SQ QHS Humalog (Insulin Lispro) 100 Unit/1 Ml Cartridge 6 Unit SQ TIDWMEALS Doxazosin Mesylate 2 Mg Tablet 2 Mg PO DAILY Omeprazole 40 Mg Capsule.dr 40 Mg PO DAILY Amlodipine Besylate 10 Mg Tablet 10 Mg PO DAILY Atorvastatin Calcium 20 Mg Tablet 20 Mg PO DAILY Losartan Potassium 100 Mg Tablet 100 Mg PO DAILY Aspirin 81 Mg Tab.chew 81 Mg PO DAILY Glyburide 5 Mg Tablet 1 Tab PO BID Allergies Allergies: Coded Allergies: No Known Drug Allergies (Unverified , 05/21/19) ROS General: YES: Other (generalized weakness, anorexia) Gastrointestinal: Yes Diarrhea Physical Exam General: Alert, Oriented X3 HEENT: PERRLA Lungs: Clear to auscultation Heart: Regular rate, Normal S1, Normal S2 Abdomen: Normal bowel sounds, Soft, No tenderness, No hepatosplenomegaly, No masses Extremities: No clubbing, No cyanosis, No edema Psych/Mental Status: Mental status NL Vitals VITALS Vital Signs Date Time Temp Pulse Resp B/P (MAP) Pulse Ox O2 Delivery O2 Flow Rate FiO2 06/06/19 08:00 Room Air 06/06/19 07:00 98.0 69 17 112/62 (79) 94 98.0 Labs Labs Laboratory Tests Test 06/05/19 12:43 06/05/19 15:33 06/05/19 16:07 06/05/19 17:21 White Blood Count 15.2 x10^3/uL (4.0-11.0) Red Blood Count 5.08 x10^6/uL (4.30-5.70) Hemoglobin 15.9 g/dL (13.0-17.5) Hematocrit 47.9 % (39.0-53.0) Mean Corpuscular Volume 94 fL (79-100) Mean Corpuscular Hemoglobin 31 pg (25-35) Mean Corpuscular Hemoglobin Concent 33 g/dL (31-37) Red Cell Distribution Width 15.2 % (11.5-14.5) Platelet Count 385 x10^3/uL (140-400) Neutrophils (%) (Auto) 86 % (31-73) Lymphocytes (%) (Auto) 7 % (24-48) Monocytes (%) (Auto) 5 % (0-9) Eosinophils (%) (Auto) 1 % (0-3) Basophils (%) (Auto) 1 % (0-3) Neutrophils # (Auto) 13.0 x10^3uL (1.8-7.7) Lymphocytes # (Auto) 1.1 x10^3/uL (1.0-4.8) Monocytes # (Auto) 0.8 x10^3/uL (0.0-1.1) Eosinophils # (Auto) 0.1 x10^3/uL (0.0-0.7) Basophils # (Auto) 0.1 x10^3/uL (0.0-0.2) Segmented Neutrophils % 85 % (35-66) Lymphocytes % 8 % (24-48) Monocytes % 6 % (0-10) Eosinophils % 1 % (0-5) Platelet Estimate Increased (ADEQUATE) Anisocytosis Slight Schistocytes Occ Sodium Level 137 mmol/L (136-145) Potassium Level 3.5 mmol/L (3.5-5.1) Chloride Level 96 mmol/L (98-107) Carbon Dioxide Level 29 mmol/L (21-32) Anion Gap 12 (6-14) Blood Urea Nitrogen 17 mg/dL (8-26) Creatinine 1.3 mg/dL (0.7-1.3) Estimated GFR (Cockcroft-Gault) 57.1 BUN/Creatinine Ratio 13 (6-20) Glucose Level 53 mg/dL (70-99) Lactic Acid Level 1.8 mmol/L (0.4-2.0) Calcium Level 9.5 mg/dL (8.5-10.1) Total Bilirubin 0.8 mg/dL (0.2-1.0) Aspartate Amino Transf (AST/SGOT) 20 U/L (15-37) Alanine Aminotransferase (ALT/SGPT) 23 U/L (16-63) Alkaline Phosphatase 109 U/L (46-116) C-Reactive Protein, Quantitative 28.4 mg/L (0-3.3) Total Protein 8.8 g/dL (6.4-8.2) Albumin 3.4 g/dL (3.4-5.0) Albumin/Globulin Ratio 0.6 (1.0-1.7) Glucose (Fingerstick) 34 mg/dL (70-99) 70 mg/dL (70-99) 79 mg/dL (70-99) Test 06/05/19 20:47 06/06/19 03:30 06/06/19 07:40 Glucose (Fingerstick) 115 mg/dL (70-99) 121 mg/dL (70-99) White Blood Count 8.1 x10^3/uL (4.0-11.0) Red Blood Count 4.41 x10^6/uL (4.30-5.70) Hemoglobin 13.7 g/dL (13.0-17.5) Hematocrit 41.4 % (39.0-53.0) Mean Corpuscular Volume 94 fL (79-100) Mean Corpuscular Hemoglobin 31 pg (25-35) Mean Corpuscular Hemoglobin Concent 33 g/dL (31-37) Red Cell Distribution Width 15.1 % (11.5-14.5) Platelet Count 274 x10^3/uL (140-400) Neutrophils (%) (Auto) 71 % (31-73) Lymphocytes (%) (Auto) 19 % (24-48) Monocytes (%) (Auto) 8 % (0-9) Eosinophils (%) (Auto) 2 % (0-3) Basophils (%) (Auto) 0 % (0-3) Neutrophils # (Auto) 5.7 x10^3uL (1.8-7.7) Lymphocytes # (Auto) 1.6 x10^3/uL (1.0-4.8) Monocytes # (Auto) 0.7 x10^3/uL (0.0-1.1) Eosinophils # (Auto) 0.2 x10^3/uL (0.0-0.7) Basophils # (Auto) 0.0 x10^3/uL (0.0-0.2) Sodium Level 137 mmol/L (136-145) Potassium Level 3.1 mmol/L (3.5-5.1) Chloride Level 101 mmol/L (98-107) Carbon Dioxide Level 25 mmol/L (21-32) Anion Gap 11 (6-14) Blood Urea Nitrogen 15 mg/dL (8-26) Creatinine 1.1 mg/dL (0.7-1.3) Estimated GFR (Cockcroft-Gault) 69.2 BUN/Creatinine Ratio 14 (6-20) Glucose Level 123 mg/dL (70-99) Calcium Level 8.3 mg/dL (8.5-10.1) Total Bilirubin 0.7 mg/dL (0.2-1.0) Aspartate Amino Transf (AST/SGOT) 13 U/L (15-37) Alanine Aminotransferase (ALT/SGPT) 17 U/L (16-63) Alkaline Phosphatase 78 U/L (46-116) Total Protein 6.6 g/dL (6.4-8.2) Albumin 2.5 g/dL (3.4-5.0) Albumin/Globulin Ratio 0.6 (1.0-1.7) Laboratory Tests Test 06/05/19 12:43 06/05/19 15:33 06/05/19 16:07 06/05/19 17:21 White Blood Count 15.2 x10^3/uL (4.0-11.0) Red Blood Count 5.08 x10^6/uL (4.30-5.70) Hemoglobin 15.9 g/dL (13.0-17.5) Hematocrit 47.9 % (39.0-53.0) Mean Corpuscular Volume 94 fL (79-100) Mean Corpuscular Hemoglobin 31 pg (25-35) Mean Corpuscular Hemoglobin Concent 33 g/dL (31-37) Red Cell Distribution Width 15.2 % (11.5-14.5) Platelet Count 385 x10^3/uL (140-400) Neutrophils (%) (Auto) 86 % (31-73) Lymphocytes (%) (Auto) 7 % (24-48) Monocytes (%) (Auto) 5 % (0-9) Eosinophils (%) (Auto) 1 % (0-3) Basophils (%) (Auto) 1 % (0-3) Neutrophils # (Auto) 13.0 x10^3uL (1.8-7.7) Lymphocytes # (Auto) 1.1 x10^3/uL (1.0-4.8) Monocytes # (Auto) 0.8 x10^3/uL (0.0-1.1) Eosinophils # (Auto) 0.1 x10^3/uL (0.0-0.7) Basophils # (Auto) 0.1 x10^3/uL (0.0-0.2) Segmented Neutrophils % 85 % (35-66) Lymphocytes % 8 % (24-48) Monocytes % 6 % (0-10) Eosinophils % 1 % (0-5) Platelet Estimate Increased (ADEQUATE) Anisocytosis Slight Schistocytes Occ Sodium Level 137 mmol/L (136-145) Potassium Level 3.5 mmol/L (3.5-5.1) Chloride Level 96 mmol/L (98-107) Carbon Dioxide Level 29 mmol/L (21-32) Anion Gap 12 (6-14) Blood Urea Nitrogen 17 mg/dL (8-26) Creatinine 1.3 mg/dL (0.7-1.3) Estimated GFR (Cockcroft-Gault) 57.1 BUN/Creatinine Ratio 13 (6-20) Glucose Level 53 mg/dL (70-99) Lactic Acid Level 1.8 mmol/L (0.4-2.0) Calcium Level 9.5 mg/dL (8.5-10.1) Total Bilirubin 0.8 mg/dL (0.2-1.0) Aspartate Amino Transf (AST/SGOT) 20 U/L (15-37) Alanine Aminotransferase (ALT/SGPT) 23 U/L (16-63) Alkaline Phosphatase 109 U/L (46-116) C-Reactive Protein, Quantitative 28.4 mg/L (0-3.3) Total Protein 8.8 g/dL (6.4-8.2) Albumin 3.4 g/dL (3.4-5.0) Albumin/Globulin Ratio 0.6 (1.0-1.7) Glucose (Fingerstick) 34 mg/dL (70-99) 70 mg/dL (70-99) 79 mg/dL (70-99) Test 06/05/19 20:47 06/06/19 03:30 06/06/19 07:40 Glucose (Fingerstick) 115 mg/dL (70-99) 121 mg/dL (70-99) White Blood Count 8.1 x10^3/uL (4.0-11.0) Red Blood Count 4.41 x10^6/uL (4.30-5.70) Hemoglobin 13.7 g/dL (13.0-17.5) Hematocrit 41.4 % (39.0-53.0) Mean Corpuscular Volume 94 fL (79-100) Mean Corpuscular Hemoglobin 31 pg (25-35) Mean Corpuscular Hemoglobin Concent 33 g/dL (31-37) Red Cell Distribution Width 15.1 % (11.5-14.5) Platelet Count 274 x10^3/uL (140-400) Neutrophils (%) (Auto) 71 % (31-73) Lymphocytes (%) (Auto) 19 % (24-48) Monocytes (%) (Auto) 8 % (0-9) Eosinophils (%) (Auto) 2 % (0-3) Basophils (%) (Auto) 0 % (0-3) Neutrophils # (Auto) 5.7 x10^3uL (1.8-7.7) Lymphocytes # (Auto) 1.6 x10^3/uL (1.0-4.8) Monocytes # (Auto) 0.7 x10^3/uL (0.0-1.1) Eosinophils # (Auto) 0.2 x10^3/uL (0.0-0.7) Basophils # (Auto) 0.0 x10^3/uL (0.0-0.2) Sodium Level 137 mmol/L (136-145) Potassium Level 3.1 mmol/L (3.5-5.1) Chloride Level 101 mmol/L (98-107) Carbon Dioxide Level 25 mmol/L (21-32) Anion Gap 11 (6-14) Blood Urea Nitrogen 15 mg/dL (8-26) Creatinine 1.1 mg/dL (0.7-1.3) Estimated GFR (Cockcroft-Gault) 69.2 BUN/Creatinine Ratio 14 (6-20) Glucose Level 123 mg/dL (70-99) Calcium Level 8.3 mg/dL (8.5-10.1) Total Bilirubin 0.7 mg/dL (0.2-1.0) Aspartate Amino Transf (AST/SGOT) 13 U/L (15-37) Alanine Aminotransferase (ALT/SGPT) 17 U/L (16-63) Alkaline Phosphatase 78 U/L (46-116) Total Protein 6.6 g/dL (6.4-8.2) Albumin 2.5 g/dL (3.4-5.0) Albumin/Globulin Ratio 0.6 (1.0-1.7) Assessment/Plan Assessment/Plan Acute onset of diarrhea this week with lower abdominal cramping and incontinence. No fever or chills and no one else ill but these findings are suspicious for an acute infectious gastroenteritis. Most concerning would be C. difficile. However since admission he's had no stool to test for infection. He has been started empirically on IV Flagyl and by mouth vancomycin. Still having some lower abdominal cramping but no diarrhea. Since he denies nausea, vomiting or bleeding I think it would be reasonable to restart a diet and monitor his progress. I certainly agree with empiric treatment of C. difficile until stool cultures can be obtained. No CT was ordered and that is reasonable unless his abdominal pain symptoms worsen. I do think empiric treatment with dicyclomine would be warranted. Plan: Agree with empiric Flagyl and vancomycin Stool cultures but clinically appears to have improved Resume Diet. prn dicyclomine JOSE QURESHI MD Jun 06, 2019 10:38
[2019-06-06] MEDS ORDERED: DICYCLOMINE HCL 10 MG CAPSULE PO PRN (10:45)
--- NOTE | 2019-06-06 10:52 | PDOC ---
PROGRESS NOTES History of Present Illness History of Present Illness VTE Prophylaxis Ordered VTE Prophylaxis Devices: No VTE Pharmacological Prophylaxi: Yes Assessment/Plan Assessment/Plan diarrhea with nausea sepsis, leukocytosis , CRP high, fluid given smell of c. diff per ER staff, will order abx x2 for sepsis with c. diff. tox neg 06/06 weakness and debility DM2, with acute hypoglycemia, hold glyburide, start D5 fluid 125/hr BMI 38 he had previously been on disability for r BKA 28 min pt exam, chart review, > 50% of time spent with exam, chart review, pt care coordination, disease process education Vitals Vitals Vital Signs Date Time Temp Pulse Resp B/P (MAP) Pulse Ox O2 Delivery O2 Flow Rate FiO2 06/06/19 08:00 Room Air 06/06/19 07:00 98.0 69 17 112/62 (79) 94 98.0 Physical Exam General: Alert, Oriented X3, No acute distress Heart: Regular rate, Normal S1, Normal S2 Lungs: Crackles Abdomen: Normal bowel sounds, Soft, No tenderness, No hepatosplenomegaly, No masses Extremities: No clubbing, No cyanosis, No edema Skin: No rashes, No breakdown Labs LABS Laboratory Tests Test 06/05/19 12:43 06/05/19 15:33 06/05/19 16:07 06/05/19 17:21 White Blood Count 15.2 x10^3/uL (4.0-11.0) Red Blood Count 5.08 x10^6/uL (4.30-5.70) Hemoglobin 15.9 g/dL (13.0-17.5) Hematocrit 47.9 % (39.0-53.0) Mean Corpuscular Volume 94 fL (79-100) Mean Corpuscular Hemoglobin 31 pg (25-35) Mean Corpuscular Hemoglobin Concent 33 g/dL (31-37) Red Cell Distribution Width 15.2 % (11.5-14.5) Platelet Count 385 x10^3/uL (140-400) Neutrophils (%) (Auto) 86 % (31-73) Lymphocytes (%) (Auto) 7 % (24-48) Monocytes (%) (Auto) 5 % (0-9) Eosinophils (%) (Auto) 1 % (0-3) Basophils (%) (Auto) 1 % (0-3) Neutrophils # (Auto) 13.0 x10^3uL (1.8-7.7) Lymphocytes # (Auto) 1.1 x10^3/uL (1.0-4.8) Monocytes # (Auto) 0.8 x10^3/uL (0.0-1.1) Eosinophils # (Auto) 0.1 x10^3/uL (0.0-0.7) Basophils # (Auto) 0.1 x10^3/uL (0.0-0.2) Segmented Neutrophils % 85 % (35-66) Lymphocytes % 8 % (24-48) Monocytes % 6 % (0-10) Eosinophils % 1 % (0-5) Platelet Estimate Increased (ADEQUATE) Anisocytosis Slight Schistocytes Occ Sodium Level 137 mmol/L (136-145) Potassium Level 3.5 mmol/L (3.5-5.1) Chloride Level 96 mmol/L (98-107) Carbon Dioxide Level 29 mmol/L (21-32) Anion Gap 12 (6-14) Blood Urea Nitrogen 17 mg/dL (8-26) Creatinine 1.3 mg/dL (0.7-1.3) Estimated GFR (Cockcroft-Gault) 57.1 BUN/Creatinine Ratio 13 (6-20) Glucose Level 53 mg/dL (70-99) Lactic Acid Level 1.8 mmol/L (0.4-2.0) Calcium Level 9.5 mg/dL (8.5-10.1) Total Bilirubin 0.8 mg/dL (0.2-1.0) Aspartate Amino Transf (AST/SGOT) 20 U/L (15-37) Alanine Aminotransferase (ALT/SGPT) 23 U/L (16-63) Alkaline Phosphatase 109 U/L (46-116) C-Reactive Protein, Quantitative 28.4 mg/L (0-3.3) Total Protein 8.8 g/dL (6.4-8.2) Albumin 3.4 g/dL (3.4-5.0) Albumin/Globulin Ratio 0.6 (1.0-1.7) Glucose (Fingerstick) 34 mg/dL (70-99) 70 mg/dL (70-99) 79 mg/dL (70-99) Test 06/05/19 20:47 06/06/19 03:30 06/06/19 07:40 Glucose (Fingerstick) 115 mg/dL (70-99) 121 mg/dL (70-99) White Blood Count 8.1 x10^3/uL (4.0-11.0) Red Blood Count 4.41 x10^6/uL (4.30-5.70) Hemoglobin 13.7 g/dL (13.0-17.5) Hematocrit 41.4 % (39.0-53.0) Mean Corpuscular Volume 94 fL (79-100) Mean Corpuscular Hemoglobin 31 pg (25-35) Mean Corpuscular Hemoglobin Concent 33 g/dL (31-37) Red Cell Distribution Width 15.1 % (11.5-14.5) Platelet Count 274 x10^3/uL (140-400) Neutrophils (%) (Auto) 71 % (31-73) Lymphocytes (%) (Auto) 19 % (24-48) Monocytes (%) (Auto) 8 % (0-9) Eosinophils (%) (Auto) 2 % (0-3) Basophils (%) (Auto) 0 % (0-3) Neutrophils # (Auto) 5.7 x10^3uL (1.8-7.7) Lymphocytes # (Auto) 1.6 x10^3/uL (1.0-4.8) Monocytes # (Auto) 0.7 x10^3/uL (0.0-1.1) Eosinophils # (Auto) 0.2 x10^3/uL (0.0-0.7) Basophils # (Auto) 0.0 x10^3/uL (0.0-0.2) Sodium Level 137 mmol/L (136-145) Potassium Level 3.1 mmol/L (3.5-5.1) Chloride Level 101 mmol/L (98-107) Carbon Dioxide Level 25 mmol/L (21-32) Anion Gap 11 (6-14) Blood Urea Nitrogen 15 mg/dL (8-26) Creatinine 1.1 mg/dL (0.7-1.3) Estimated GFR (Cockcroft-Gault) 69.2 BUN/Creatinine Ratio 14 (6-20) Glucose Level 123 mg/dL (70-99) Calcium Level 8.3 mg/dL (8.5-10.1) Total Bilirubin 0.7 mg/dL (0.2-1.0) Aspartate Amino Transf (AST/SGOT) 13 U/L (15-37) Alanine Aminotransferase (ALT/SGPT) 17 U/L (16-63) Alkaline Phosphatase 78 U/L (46-116) Total Protein 6.6 g/dL (6.4-8.2) Albumin 2.5 g/dL (3.4-5.0) Albumin/Globulin Ratio 0.6 (1.0-1.7) Assessment and Plan Assessmemt and Plan Problems Medical Problems: (1) Enteritis Status: Acute (2) Sepsis Status: Acute Comment Review of Relevant I have reviewed the following items pascual (where applicable) has been applied. Labs Laboratory Tests Test 06/05/19 12:43 06/05/19 15:33 06/05/19 16:07 06/05/19 17:21 White Blood Count 15.2 x10^3/uL (4.0-11.0) Red Blood Count 5.08 x10^6/uL (4.30-5.70) Hemoglobin 15.9 g/dL (13.0-17.5) Hematocrit 47.9 % (39.0-53.0) Mean Corpuscular Volume 94 fL (79-100) Mean Corpuscular Hemoglobin 31 pg (25-35) Mean Corpuscular Hemoglobin Concent 33 g/dL (31-37) Red Cell Distribution Width 15.2 % (11.5-14.5) Platelet Count 385 x10^3/uL (140-400) Neutrophils (%) (Auto) 86 % (31-73) Lymphocytes (%) (Auto) 7 % (24-48) Monocytes (%) (Auto) 5 % (0-9) Eosinophils (%) (Auto) 1 % (0-3) Basophils (%) (Auto) 1 % (0-3) Neutrophils # (Auto) 13.0 x10^3uL (1.8-7.7) Lymphocytes # (Auto) 1.1 x10^3/uL (1.0-4.8) Monocytes # (Auto) 0.8 x10^3/uL (0.0-1.1) Eosinophils # (Auto) 0.1 x10^3/uL (0.0-0.7) Basophils # (Auto) 0.1 x10^3/uL (0.0-0.2) Segmented Neutrophils % 85 % (35-66) Lymphocytes % 8 % (24-48) Monocytes % 6 % (0-10) Eosinophils % 1 % (0-5) Platelet Estimate Increased (ADEQUATE) Anisocytosis Slight Schistocytes Occ Sodium Level 137 mmol/L (136-145) Potassium Level 3.5 mmol/L (3.5-5.1) Chloride Level 96 mmol/L (98-107) Carbon Dioxide Level 29 mmol/L (21-32) Anion Gap 12 (6-14) Blood Urea Nitrogen 17 mg/dL (8-26) Creatinine 1.3 mg/dL (0.7-1.3) Estimated GFR (Cockcroft-Gault) 57.1 BUN/Creatinine Ratio 13 (6-20) Glucose Level 53 mg/dL (70-99) Lactic Acid Level 1.8 mmol/L (0.4-2.0) Calcium Level 9.5 mg/dL (8.5-10.1) Total Bilirubin 0.8 mg/dL (0.2-1.0) Aspartate Amino Transf (AST/SGOT) 20 U/L (15-37) Alanine Aminotransferase (ALT/SGPT) 23 U/L (16-63) Alkaline Phosphatase 109 U/L (46-116) C-Reactive Protein, Quantitative 28.4 mg/L (0-3.3) Total Protein 8.8 g/dL (6.4-8.2) Albumin 3.4 g/dL (3.4-5.0) Albumin/Globulin Ratio 0.6 (1.0-1.7) Glucose (Fingerstick) 34 mg/dL (70-99) 70 mg/dL (70-99) 79 mg/dL (70-99) Test 06/05/19 20:47 06/06/19 03:30 06/06/19 07:40 Glucose (Fingerstick) 115 mg/dL (70-99) 121 mg/dL (70-99) White Blood Count 8.1 x10^3/uL (4.0-11.0) Red Blood Count 4.41 x10^6/uL (4.30-5.70) Hemoglobin 13.7 g/dL (13.0-17.5) Hematocrit 41.4 % (39.0-53.0) Mean Corpuscular Volume 94 fL (79-100) Mean Corpuscular Hemoglobin 31 pg (25-35) Mean Corpuscular Hemoglobin Concent 33 g/dL (31-37) Red Cell Distribution Width 15.1 % (11.5-14.5) Platelet Count 274 x10^3/uL (140-400) Neutrophils (%) (Auto) 71 % (31-73) Lymphocytes (%) (Auto) 19 % (24-48) Monocytes (%) (Auto) 8 % (0-9) Eosinophils (%) (Auto) 2 % (0-3) Basophils (%) (Auto) 0 % (0-3) Neutrophils # (Auto) 5.7 x10^3uL (1.8-7.7) Lymphocytes # (Auto) 1.6 x10^3/uL (1.0-4.8) Monocytes # (Auto) 0.7 x10^3/uL (0.0-1.1) Eosinophils # (Auto) 0.2 x10^3/uL (0.0-0.7) Basophils # (Auto) 0.0 x10^3/uL (0.0-0.2) Sodium Level 137 mmol/L (136-145) Potassium Level 3.1 mmol/L (3.5-5.1) Chloride Level 101 mmol/L (98-107) Carbon Dioxide Level 25 mmol/L (21-32) Anion Gap 11 (6-14) Blood Urea Nitrogen 15 mg/dL (8-26) Creatinine 1.1 mg/dL (0.7-1.3) Estimated GFR (Cockcroft-Gault) 69.2 BUN/Creatinine Ratio 14 (6-20) Glucose Level 123 mg/dL (70-99) Calcium Level 8.3 mg/dL (8.5-10.1) Total Bilirubin 0.7 mg/dL (0.2-1.0) Aspartate Amino Transf (AST/SGOT) 13 U/L (15-37) Alanine Aminotransferase (ALT/SGPT) 17 U/L (16-63) Alkaline Phosphatase 78 U/L (46-116) Total Protein 6.6 g/dL (6.4-8.2) Albumin 2.5 g/dL (3.4-5.0) Albumin/Globulin Ratio 0.6 (1.0-1.7) Laboratory Tests Test 06/05/19 12:43 06/05/19 15:33 06/05/19 16:07 06/05/19 17:21 White Blood Count 15.2 x10^3/uL (4.0-11.0) Red Blood Count 5.08 x10^6/uL (4.30-5.70) Hemoglobin 15.9 g/dL (13.0-17.5) Hematocrit 47.9 % (39.0-53.0) Mean Corpuscular Volume 94 fL (79-100) Mean Corpuscular Hemoglobin 31 pg (25-35) Mean Corpuscular Hemoglobin Concent 33 g/dL (31-37) Red Cell Distribution Width 15.2 % (11.5-14.5) Platelet Count 385 x10^3/uL (140-400) Neutrophils (%) (Auto) 86 % (31-73) Lymphocytes (%) (Auto) 7 % (24-48) Monocytes (%) (Auto) 5 % (0-9) Eosinophils (%) (Auto) 1 % (0-3) Basophils (%) (Auto) 1 % (0-3) Neutrophils # (Auto) 13.0 x10^3uL (1.8-7.7) Lymphocytes # (Auto) 1.1 x10^3/uL (1.0-4.8) Monocytes # (Auto) 0.8 x10^3/uL (0.0-1.1) Eosinophils # (Auto) 0.1 x10^3/uL (0.0-0.7) Basophils # (Auto) 0.1 x10^3/uL (0.0-0.2) Segmented Neutrophils % 85 % (35-66) Lymphocytes % 8 % (24-48) Monocytes % 6 % (0-10) Eosinophils % 1 % (0-5) Platelet Estimate Increased (ADEQUATE) Anisocytosis Slight Schistocytes Occ Sodium Level 137 mmol/L (136-145) Potassium Level 3.5 mmol/L (3.5-5.1) Chloride Level 96 mmol/L (98-107) Carbon Dioxide Level 29 mmol/L (21-32) Anion Gap 12 (6-14) Blood Urea Nitrogen 17 mg/dL (8-26) Creatinine 1.3 mg/dL (0.7-1.3) Estimated GFR (Cockcroft-Gault) 57.1 BUN/Creatinine Ratio 13 (6-20) Glucose Level 53 mg/dL (70-99) Lactic Acid Level 1.8 mmol/L (0.4-2.0) Calcium Level 9.5 mg/dL (8.5-10.1) Total Bilirubin 0.8 mg/dL (0.2-1.0) Aspartate Amino Transf (AST/SGOT) 20 U/L (15-37) Alanine Aminotransferase (ALT/SGPT) 23 U/L (16-63) Alkaline Phosphatase 109 U/L (46-116) C-Reactive Protein, Quantitative 28.4 mg/L (0-3.3) Total Protein 8.8 g/dL (6.4-8.2) Albumin 3.4 g/dL (3.4-5.0) Albumin/Globulin Ratio 0.6 (1.0-1.7) Glucose (Fingerstick) 34 mg/dL (70-99) 70 mg/dL (70-99) 79 mg/dL (70-99) Test 06/05/19 20:47 06/06/19 03:30 06/06/19 07:40 Glucose (Fingerstick) 115 mg/dL (70-99) 121 mg/dL (70-99) White Blood Count 8.1 x10^3/uL (4.0-11.0) Red Blood Count 4.41 x10^6/uL (4.30-5.70) Hemoglobin 13.7 g/dL (13.0-17.5) Hematocrit 41.4 % (39.0-53.0) Mean Corpuscular Volume 94 fL (79-100) Mean Corpuscular Hemoglobin 31 pg (25-35) Mean Corpuscular Hemoglobin Concent 33 g/dL (31-37) Red Cell Distribution Width 15.1 % (11.5-14.5) Platelet Count 274 x10^3/uL (140-400) Neutrophils (%) (Auto) 71 % (31-73) Lymphocytes (%) (Auto) 19 % (24-48) Monocytes (%) (Auto) 8 % (0-9) Eosinophils (%) (Auto) 2 % (0-3) Basophils (%) (Auto) 0 % (0-3) Neutrophils # (Auto) 5.7 x10^3uL (1.8-7.7) Lymphocytes # (Auto) 1.6 x10^3/uL (1.0-4.8) Monocytes # (Auto) 0.7 x10^3/uL (0.0-1.1) Eosinophils # (Auto) 0.2 x10^3/uL (0.0-0.7) Basophils # (Auto) 0.0 x10^3/uL (0.0-0.2) Sodium Level 137 mmol/L (136-145) Potassium Level 3.1 mmol/L (3.5-5.1) Chloride Level 101 mmol/L (98-107) Carbon Dioxide Level 25 mmol/L (21-32) Anion Gap 11 (6-14) Blood Urea Nitrogen 15 mg/dL (8-26) Creatinine 1.1 mg/dL (0.7-1.3) Estimated GFR (Cockcroft-Gault) 69.2 BUN/Creatinine Ratio 14 (6-20) Glucose Level 123 mg/dL (70-99) Calcium Level 8.3 mg/dL (8.5-10.1) Total Bilirubin 0.7 mg/dL (0.2-1.0) Aspartate Amino Transf (AST/SGOT) 13 U/L (15-37) Alanine Aminotransferase (ALT/SGPT) 17 U/L (16-63) Alkaline Phosphatase 78 U/L (46-116) Total Protein 6.6 g/dL (6.4-8.2) Albumin 2.5 g/dL (3.4-5.0) Albumin/Globulin Ratio 0.6 (1.0-1.7) Medications Current Medications Sodium Chloride 1,000 ml @ 1,000 mls/hr 1X ONCE IV Last administered on 06/05/19at 13:58; Start 06/05/19 at 13:45; Stop 06/05/19 at 14:44; Status DC Dextrose (Dextrose 50%-Water Syringe) 25 gm STK-MED ONCE IV ; Start 06/05/19 at 15:31; Stop 06/05/19 at 15:32; Status DC Vancomycin HCl (Vancomycin Oral Solution) 125 mg [id number] PO Last administered on 06/06/19at 08:48; Start 06/05/19 at 16:00 Metronidazole 100 ml @ 100 mls/hr Q8HRS IV Last administered on 06/06/19at 06:16; Start 06/05/19 at 15:45 Potassium Chloride/Dextrose/ Sod Cl 1,000 ml @ 125 mls/hr Q8H IV Last administered on 06/06/19at 04:58; Start 06/05/19 at 15:45 Insulin Human Lispro (HumaLOG) 0-5 UNITS TIDWMEALS SQ ; Start 06/05/19 at 17:00 Dextrose (Dextrose 50%-Water Syringe) 12.5 gm PRN Q15MIN PRN IV SEE COMMENTS; Start 06/05/19 at 15:45 Dextrose (Dextrose 50%-Water Syringe) 25 gm 1X ONCE IV Last administered on 06/05/19at 15:48; Start 06/05/19 at 15:45; Stop 06/05/19 at 15:47; Status DC Albuterol Sulfate (Ventolin Neb Soln) 2.5 mg PRN Q6HRS PRN INH SHORTNESS OF B REATH; Start 06/05/19 at 15:45 Amlodipine Besylate (Norvasc) 10 mg DAILY PO ; Start 06/06/19 at 09:00 Aspirin (Children'S Aspirin) 81 mg DAILY PO Last administered on 06/06/19at 08:48; Start 06/06/19 at 09:00 Atorvastatin Calcium (Lipitor) 20 mg QHS PO Last administered on 06/05/19at 22:20; Start 06/05/19 at 21:00 Doxazosin Mesylate (Cardura) 2 mg DAILY PO ; Start 06/06/19 at 09:00 Insulin Human Lispro (HumaLOG) 6 units TIDWMEALS SQ ; Start 06/06/19 at 08:00 Pantoprazole Sodium (Protonix) 40 mg DAILYAC PO Last administered on 06/06/19at 08:47; Start 06/06/19 at 07:30 Losartan Potassium (Cozaar) 50 mg DAILY PO ; Start 06/06/19 at 09:00 Enoxaparin Sodium (Lovenox Per Pharmacy Prophylaxis Dosing) 1 each PRN DAILY PRN MC SEE COMMENTS; Start 06/05/19 at 16:00 Enoxaparin Sodium (Lovenox 40mg Syringe) 40 mg Q24H SQ Last administered on 06/05/19at 19:00; Start 06/05/19 at 17:00 Dicyclomine HCl (Bentyl) 10 mg PRN Q6HRS PRN PO SEE COMMENTS; Start 06/06/19 at 10:45 Active Scripts Active Reported Proair Hfa Inhaler (Albuterol Sulfate) 8.5 Gm Hfa.aer.ad 1 Puff INH PRN Q6HRS PRN Lantus Solostar (Insulin Glargine,Hum.rec.anlog) 100 Unit/1 Ml Insuln.pen 20 Unit SQ QHS Humalog (Insulin Lispro) 100 Unit/1 Ml Cartridge 6 Unit SQ TIDWMEALS Doxazosin Mesylate 2 Mg Tablet 2 Mg PO DAILY Omeprazole 40 Mg Capsule.dr 40 Mg PO DAILY Amlodipine Besylate 10 Mg Tablet 10 Mg PO DAILY Atorvastatin Calcium 20 Mg Tablet 20 Mg PO DAILY Losartan Potassium 100 Mg Tablet 100 Mg PO DAILY Aspirin 81 Mg Tab.chew 81 Mg PO DAILY Glyburide 5 Mg Tablet 1 Tab PO BID Vitals/I & O Vital Sign - Last 24 Hours 06/05/19 06/05/19 06/05/19 06/05/19 12:30 13:28 13:58 14:28 Temp 99.0 99.0 Pulse 71 70 72 72 Resp 20 14 14 21 B/P (MAP) 147/75 (99) 109/69 (82) 111/72 (85) 83/66 (72) Pulse Ox 94 93 93 93 O2 Delivery Room Air Room Air Room Air Room Air 06/05/19 06/05/19 06/05/19 06/05/19 14:58 15:28 15:33 15:58 Pulse 70 74 72 68 Resp 14 14 17 12 B/P (MAP) 102/58 (73) 114/75 (88) 129/74 (92) 101/70 (80) Pulse Ox 92 96 94 94 O2 Delivery Room Air Room Air Room Air Room Air 06/05/19 06/05/19 06/05/19 06/05/19 16:00 17:00 18:03 19:59 Temp 99.6 99.0 99.6 99.0 Pulse 78 72 Resp 16 16 B/P (MAP) 102/67 (79) 99/62 (74) Pulse Ox 98 91 93 O2 Delivery Room Air Room Air Room Air 06/05/19 06/05/19 06/06/19 06/06/19 20:20 23:23 03:45 07:00 Temp 98.6 98.6 98.0 98.6 98.6 98.0 Pulse 72 70 69 Resp 20 20 17 B/P (MAP) 93/53 (66) 107/54 (71) 112/62 (79) Pulse Ox 100 93 94 O2 Delivery Room Air Room Air Room Air Room Air 06/06/19 08:00 O2 Delivery Room Air Intake and Output 06/05/19 06/05/19 06/06/19 14:59 22:59 06:59 Intake Total 1000 ml 120 ml Balance 1000 ml 120 ml LESLY STOCKTON MD Jun 06, 2019 10:51
[2019-06-06 11:00] VITALS: BP 117/65
[2019-06-06] MEDS: ONDANSETRON PF 4 MG/2 ML VIAL. IV PRN ×2 (12:59→21:59)
--- NOTE | 2019-06-06 13:01 | PDOC ---
Infectious Disease Note Vital Sign Vital Signs Vital Signs Date Time Temp Pulse Resp B/P (MAP) Pulse Ox O2 Delivery O2 Flow Rate FiO2 06/06/19 08:00 Room Air 06/06/19 07:00 98.0 69 17 112/62 (79) 94 98.0 Labs Lab Laboratory Tests Test 06/05/19 12:43 06/05/19 15:33 06/05/19 16:07 06/05/19 17:21 White Blood Count 15.2 x10^3/uL (4.0-11.0) Red Blood Count 5.08 x10^6/uL (4.30-5.70) Hemoglobin 15.9 g/dL (13.0-17.5) Hematocrit 47.9 % (39.0-53.0) Mean Corpuscular Volume 94 fL (79-100) Mean Corpuscular Hemoglobin 31 pg (25-35) Mean Corpuscular Hemoglobin Concent 33 g/dL (31-37) Red Cell Distribution Width 15.2 % (11.5-14.5) Platelet Count 385 x10^3/uL (140-400) Neutrophils (%) (Auto) 86 % (31-73) Lymphocytes (%) (Auto) 7 % (24-48) Monocytes (%) (Auto) 5 % (0-9) Eosinophils (%) (Auto) 1 % (0-3) Basophils (%) (Auto) 1 % (0-3) Neutrophils # (Auto) 13.0 x10^3uL (1.8-7.7) Lymphocytes # (Auto) 1.1 x10^3/uL (1.0-4.8) Monocytes # (Auto) 0.8 x10^3/uL (0.0-1.1) Eosinophils # (Auto) 0.1 x10^3/uL (0.0-0.7) Basophils # (Auto) 0.1 x10^3/uL (0.0-0.2) Segmented Neutrophils % 85 % (35-66) Lymphocytes % 8 % (24-48) Monocytes % 6 % (0-10) Eosinophils % 1 % (0-5) Platelet Estimate Increased (ADEQUATE) Anisocytosis Slight Schistocytes Occ Sodium Level 137 mmol/L (136-145) Potassium Level 3.5 mmol/L (3.5-5.1) Chloride Level 96 mmol/L (98-107) Carbon Dioxide Level 29 mmol/L (21-32) Anion Gap 12 (6-14) Blood Urea Nitrogen 17 mg/dL (8-26) Creatinine 1.3 mg/dL (0.7-1.3) Estimated GFR (Cockcroft-Gault) 57.1 BUN/Creatinine Ratio 13 (6-20) Glucose Level 53 mg/dL (70-99) Lactic Acid Level 1.8 mmol/L (0.4-2.0) Calcium Level 9.5 mg/dL (8.5-10.1) Total Bilirubin 0.8 mg/dL (0.2-1.0) Aspartate Amino Transf (AST/SGOT) 20 U/L (15-37) Alanine Aminotransferase (ALT/SGPT) 23 U/L (16-63) Alkaline Phosphatase 109 U/L (46-116) C-Reactive Protein, Quantitative 28.4 mg/L (0-3.3) Total Protein 8.8 g/dL (6.4-8.2) Albumin 3.4 g/dL (3.4-5.0) Albumin/Globulin Ratio 0.6 (1.0-1.7) Glucose (Fingerstick) 34 mg/dL (70-99) 70 mg/dL (70-99) 79 mg/dL (70-99) Test 06/05/19 20:47 06/06/19 03:30 06/06/19 07:40 06/06/19 11:33 Glucose (Fingerstick) 115 mg/dL (70-99) 121 mg/dL (70-99) 156 mg/dL (70-99) White Blood Count 8.1 x10^3/uL (4.0-11.0) Red Blood Count 4.41 x10^6/uL (4.30-5.70) Hemoglobin 13.7 g/dL (13.0-17.5) Hematocrit 41.4 % (39.0-53.0) Mean Corpuscular Volume 94 fL (79-100) Mean Corpuscular Hemoglobin 31 pg (25-35) Mean Corpuscular Hemoglobin Concent 33 g/dL (31-37) Red Cell Distribution Width 15.1 % (11.5-14.5) Platelet Count 274 x10^3/uL (140-400) Neutrophils (%) (Auto) 71 % (31-73) Lymphocytes (%) (Auto) 19 % (24-48) Monocytes (%) (Auto) 8 % (0-9) Eosinophils (%) (Auto) 2 % (0-3) Basophils (%) (Auto) 0 % (0-3) Neutrophils # (Auto) 5.7 x10^3uL (1.8-7.7) Lymphocytes # (Auto) 1.6 x10^3/uL (1.0-4.8) Monocytes # (Auto) 0.7 x10^3/uL (0.0-1.1) Eosinophils # (Auto) 0.2 x10^3/uL (0.0-0.7) Basophils # (Auto) 0.0 x10^3/uL (0.0-0.2) Sodium Level 137 mmol/L (136-145) Potassium Level 3.1 mmol/L (3.5-5.1) Chloride Level 101 mmol/L (98-107) Carbon Dioxide Level 25 mmol/L (21-32) Anion Gap 11 (6-14) Blood Urea Nitrogen 15 mg/dL (8-26) Creatinine 1.1 mg/dL (0.7-1.3) Estimated GFR (Cockcroft-Gault) 69.2 BUN/Creatinine Ratio 14 (6-20) Glucose Level 123 mg/dL (70-99) Calcium Level 8.3 mg/dL (8.5-10.1) Total Bilirubin 0.7 mg/dL (0.2-1.0) Aspartate Amino Transf (AST/SGOT) 13 U/L (15-37) Alanine Aminotransferase (ALT/SGPT) 17 U/L (16-63) Alkaline Phosphatase 78 U/L (46-116) Total Protein 6.6 g/dL (6.4-8.2) Albumin 2.5 g/dL (3.4-5.0) Albumin/Globulin Ratio 0.6 (1.0-1.7) Objective Assessment Acute diarrhea Leukocytosis Diabetes HTN h/o group B strep, Acinetobacter, Porphyromonas, plus anaerobes. Plan Plan of Care po vanc and Flagyl for now awaiting c. diff PCR and stool cultures Maintain hydration Thank you [id number] Patient seen and examined. Chart reviewed in detail. Case discussed with [employer]ED LANGUAGE IN[employer]CTOR. Agree with above plan. LYNDSAY PIZARRO APRN Jun 06, 2019 13:01 MARC VALENTINO MD Jun 06, 2019 21:21
--- NOTE | 2019-06-06 13:43 | CONS ---
DATE OF CONSULTATION: 06/06/2019 REFERRING PHYSICIAN: Mariah Acuna MD. REASON FOR CONSULTATION: Sepsis and colitis. HISTORY OF PRESENT ILLNESS: This patient is a 58-year-old male who presented with a two-day history of acute diarrhea, nonbloody with bowel urgency and incontinence. He says he has lost his appetite and is having abdominal cramps and some bloating. He was recently discharged from [facility] and is currently living at [facility]. He denies dining out except for what is served there. He is not aware of any other residents with similar symptoms. Within the last three months, he has been on antibiotics. PAST MEDICAL HISTORY: Diabetes, hypertension, obesity, diabetic neuropathy, osteoarthritis, history of gangrenous diabetic foot wound, status post right BKA. History of group B strep, Acinetobacter, Porphyromonas and anaerobe infections, history of cardiac arrest, sleep apnea on CPAP and hyperlipidemia.. PAST SURGICAL HISTORY: Tonsillectomy, right below knee amputation, PEG tube placement and removal, tracheostomy placement and removal. SOCIAL HISTORY: The patient is a resident at [facility]. He is a nonsmoker. FAMILY HISTORY: Diabetes, hypertension, osteoarthritis. ALLERGIES: No known drug allergies. MEDICATIONS: Oral vancomycin, metronidazole, Bentyl. Other medications are available and have been reviewed on the MAR. REVIEW OF SYSTEMS: Per HPI, otherwise all other review of systems are negative. PHYSICAL EXAMINATION: VITAL SIGNS: Temperature is 98.0, blood pressure 112/62, heart rate 69, respiratory rate 17, pulse oximetry is 94% on room air. BMI 38. HEENT: Pupils equally round. Oropharynx pink and moist. NECK: Supple. LUNGS: Clear to auscultation. HEART: S1 and S2. ABDOMEN: Obese, soft, mildly tender with bowel sounds present. EXTREMITIES: No gross edema or cyanosis. Right BKA unremarkable. SKIN: Warm to touch. Without rash. NEUROLOGIC: Alert and answering questions appropriately. LABORATORY DATA: Today's WBC 8.1 from 15.2 on admission, hemoglobin 13.7, platelets 274,000. Sodium 137, potassium 3.1, creatinine 1.1, BUN 15, glucose 123 from 53 on admission. Lactic acid 1.8, total bilirubin 0.7, AST 13, ALT 17. CRP 28.4, albumin 3.4. C. diff PCR and stool cultures are pending. Chest x-ray showed no acute radiographic abnormality. IMPRESSION: 1. Acute diarrhea. 2. Leukocytosis. 3. Diabetes. 4. Hypertension. PLAN: Continue the oral vancomycin and metronidazole for now. Awaiting C. diff PCR and stool culture results. Maintain hydration. Thank you, Dr. Acuna for asking us to participate in this patient's care. Should you have further questions or concerns, please call. MARC VALENTINO MD DR: GRACIELA/antoni JOB#: [id number] / [id number]
[2019-06-06 15:00] VITALS: BP 116/69
[2019-06-06] MEDS: ENOXAPARIN 40 MG/0.4 ML SYRINGE. SQ SCH (17:29)
[2019-06-06] MEDS ORDERED: POTASSIUM CHLORIDE 20 MEQ TABLET.ER. PO ONE (19:30)
[2019-06-06 19:40] VITALS: BP 91/57
[2019-06-06] MEDS: LACTOBACILLUS RHAMNOSUS GG 1 CAPSULE. PO SCH (20:30)
[2019-06-06] MEDS: ATORVASTATIN CALCIUM 20 MG TABLET PO SCH (20:30)
[2019-06-06 23:40] VITALS: BP 113/64
[2019-06-07] MEDS: POTASSIUM CL 20MEQ D5-0.45NACL 1,000 ML IV SCH ×3 (01:20→17:55)
[2019-06-07 03:43] VITALS: BP 124/67
[2019-06-07 05:27] LABS: ALBUMIN 2.4 g/dL (3.4-5.0); ALBUMIN/GLOBULIN RATIO 0.6 (1.0-1.7); CALCIUM 8.4 mg/dL (8.5-10.1); GFR 77.3; POTASSIUM 3.7 mmol/L (3.5-5.1); TOTAL BILIRUBIN 0.5 mg/dL (0.2-1.0); TOTAL PROTEIN 6.5 g/dL (6.4-8.2)
[2019-06-07 05:38] LABS: HEMOGLOBIN A1C 5.3 % (4.8-5.6)
[2019-06-07 07:00] VITALS: BP 136/69
[2019-06-07] MEDS: DOXAZOSIN MESYLATE 1 MG TABLET. PO SCH (09:56)
[2019-06-07] MEDS: ASPIRIN CHEWABLE 81 MG TABLET. PO SCH (09:57)
[2019-06-07] MEDS: LACTOBACILLUS RHAMNOSUS GG 1 CAPSULE. PO SCH ×2 (09:57→21:04)
[2019-06-07] MEDS: LOSARTAN POTASSIUM 50 MG TABLET. PO SCH (09:57)
[2019-06-07] MEDS: PANTOPRAZOLE 40 MG TABLET.DR. PO SCH (09:57)
[2019-06-07] MEDS: POTASSIUM CHLORIDE 20 MEQ TABLET.ER. PO SCH (09:57)
[2019-06-07] MEDS: VANCOMYCIN 125 MG/2.5 ML ORAL SOLUTION. PO SCH ×2 (09:58→13:00)
[2019-06-07] MEDS: amLODIPine BESYLATE 10 MG TABLET PO SCH (09:58)
[2019-06-07] MEDS: INSULIN LISPRO 300 UNITS/3 ML INSULN.PEN. SQ SCH ×6 (10:04→18:01)
--- NOTE | 2019-06-07 10:52 | PDOC ---
PROGRESS NOTES History of Present Illness History of Present Illness VTE Prophylaxis Ordered VTE Prophylaxis Devices: No VTE Pharmacological Prophylaxi: Yes Assessment/Plan Assessment/Plan diarrhea with nausea sepsis, leukocytosis , CRP high, fluid given smell of c. diff per ER staff, will order abx x2 for sepsis with c. diff. tox neg 06/06 weakness and debility DM2, with acute hypoglycemia, hold glyburide, start D5 fluid 125/hr BMI 38 severe protein-caloric malnutrition he had previously been on disability for r BKA po vanc and Flagyl for now awaiting c. diff PCR and stool cultures 29 min pt exam, chart review, > 50% of time spent with exam, chart review, pt care coordination, disease process education Vitals Vitals Vital Signs Date Time Temp Pulse Resp B/P (MAP) Pulse Ox O2 Delivery O2 Flow Rate FiO2 06/07/19 09:58 70 136/69 06/07/19 08:00 Room Air 06/07/19 07:00 98.4 12 92 98.4 Physical Exam General: Alert, Oriented X3, No acute distress Heart: Regular rate, Normal S1, Normal S2 Lungs: Clear, Crackles Abdomen: Normal bowel sounds, Soft, No tenderness, No hepatosplenomegaly, No masses Extremities: No clubbing, No cyanosis, No edema, Normal pulses Skin: No rashes, No breakdown Labs LABS Laboratory Tests Test 06/06/19 11:33 06/06/19 16:40 06/06/19 20:27 06/07/19 03:55 Glucose (Fingerstick) 156 mg/dL (70-99) 171 mg/dL (70-99) 188 mg/dL (70-99) Sodium Level 138 mmol/L (136-145) Potassium Level 3.7 mmol/L (3.5-5.1) Chloride Level 104 mmol/L (98-107) Carbon Dioxide Level 25 mmol/L (21-32) Anion Gap 9 (6-14) Blood Urea Nitrogen 10 mg/dL (8-26) Creatinine 1.0 mg/dL (0.7-1.3) Estimated GFR (Cockcroft-Gault) 77.3 BUN/Creatinine Ratio 10 (6-20) Glucose Level 211 mg/dL (70-99) Calcium Level 8.4 mg/dL (8.5-10.1) Total Bilirubin 0.5 mg/dL (0.2-1.0) Aspartate Amino Transf (AST/SGOT) 12 U/L (15-37) Alanine Aminotransferase (ALT/SGPT) 16 U/L (16-63) Alkaline Phosphatase 64 U/L (46-116) Total Protein 6.5 g/dL (6.4-8.2) Albumin 2.4 g/dL (3.4-5.0) Albumin/Globulin Ratio 0.6 (1.0-1.7) Test 06/07/19 07:59 Glucose (Fingerstick) 197 mg/dL (70-99) Assessment and Plan Assessmemt and Plan Problems Medical Problems: (1) Enteritis Status: Acute (2) Sepsis Status: Acute Comment Review of Relevant I have reviewed the following items pascual (where applicable) has been applied. Labs Laboratory Tests Test 06/05/19 12:43 06/05/19 13:05 06/05/19 15:33 06/05/19 16:07 White Blood Count 15.2 x10^3/uL (4.0-11.0) Red Blood Count 5.08 x10^6/uL (4.30-5.70) Hemoglobin 15.9 g/dL (13.0-17.5) Hematocrit 47.9 % (39.0-53.0) Mean Corpuscular Volume 94 fL (79-100) Mean Corpuscular Hemoglobin 31 pg (25-35) Mean Corpuscular Hemoglobin Concent 33 g/dL (31-37) Red Cell Distribution Width 15.2 % (11.5-14.5) Platelet Count 385 x10^3/uL (140-400) Neutrophils (%) (Auto) 86 % (31-73) Lymphocytes (%) (Auto) 7 % (24-48) Monocytes (%) (Auto) 5 % (0-9) Eosinophils (%) (Auto) 1 % (0-3) Basophils (%) (Auto) 1 % (0-3) Neutrophils # (Auto) 13.0 x10^3uL (1.8-7.7) Lymphocytes # (Auto) 1.1 x10^3/uL (1.0-4.8) Monocytes # (Auto) 0.8 x10^3/uL (0.0-1.1) Eosinophils # (Auto) 0.1 x10^3/uL (0.0-0.7) Basophils # (Auto) 0.1 x10^3/uL (0.0-0.2) Segmented Neutrophils % 85 % (35-66) Lymphocytes % 8 % (24-48) Monocytes % 6 % (0-10) Eosinophils % 1 % (0-5) Platelet Estimate Increased (ADEQUATE) Anisocytosis Slight Schistocytes Occ Sodium Level 137 mmol/L (136-145) Potassium Level 3.5 mmol/L (3.5-5.1) Chloride Level 96 mmol/L (98-107) Carbon Dioxide Level 29 mmol/L (21-32) Anion Gap 12 (6-14) Blood Urea Nitrogen 17 mg/dL (8-26) Creatinine 1.3 mg/dL (0.7-1.3) Estimated GFR (Cockcroft-Gault) 57.1 BUN/Creatinine Ratio 13 (6-20) Glucose Level 53 mg/dL (70-99) Lactic Acid Level 1.8 mmol/L (0.4-2.0) Calcium Level 9.5 mg/dL (8.5-10.1) Total Bilirubin 0.8 mg/dL (0.2-1.0) Aspartate Amino Transf (AST/SGOT) 20 U/L (15-37) Alanine Aminotransferase (ALT/SGPT) 23 U/L (16-63) Alkaline Phosphatase 109 U/L (46-116) C-Reactive Protein, Quantitative 28.4 mg/L (0-3.3) Total Protein 8.8 g/dL (6.4-8.2) Albumin 3.4 g/dL (3.4-5.0) Albumin/Globulin Ratio 0.6 (1.0-1.7) Clostridium difficile Toxin B Gene Negative (Negative) Glucose (Fingerstick) 34 mg/dL (70-99) 70 mg/dL (70-99) Test 06/05/19 17:21 06/05/19 20:47 06/06/19 03:30 06/06/19 07:40 Glucose (Fingerstick) 79 mg/dL (70-99) 115 mg/dL (70-99) 121 mg/dL (70-99) White Blood Count 8.1 x10^3/uL (4.0-11.0) Red Blood Count 4.41 x10^6/uL (4.30-5.70) Hemoglobin 13.7 g/dL (13.0-17.5) Hematocrit 41.4 % (39.0-53.0) Mean Corpuscular Volume 94 fL (79-100) Mean Corpuscular Hemoglobin 31 pg (25-35) Mean Corpuscular Hemoglobin Concent 33 g/dL (31-37) Red Cell Distribution Width 15.1 % (11.5-14.5) Platelet Count 274 x10^3/uL (140-400) Neutrophils (%) (Auto) 71 % (31-73) Lymphocytes (%) (Auto) 19 % (24-48) Monocytes (%) (Auto) 8 % (0-9) Eosinophils (%) (Auto) 2 % (0-3) Basophils (%) (Auto) 0 % (0-3) Neutrophils # (Auto) 5.7 x10^3uL (1.8-7.7) Lymphocytes # (Auto) 1.6 x10^3/uL (1.0-4.8) Monocytes # (Auto) 0.7 x10^3/uL (0.0-1.1) Eosinophils # (Auto) 0.2 x10^3/uL (0.0-0.7) Basophils # (Auto) 0.0 x10^3/uL (0.0-0.2) Sodium Level 137 mmol/L (136-145) Potassium Level 3.1 mmol/L (3.5-5.1) Chloride Level 101 mmol/L (98-107) Carbon Dioxide Level 25 mmol/L (21-32) Anion Gap 11 (6-14) Blood Urea Nitrogen 15 mg/dL (8-26) Creatinine 1.1 mg/dL (0.7-1.3) Estimated GFR (Cockcroft-Gault) 69.2 BUN/Creatinine Ratio 14 (6-20) Glucose Level 123 mg/dL (70-99) Hemoglobin A1c 5.3 % (4.8-5.6) Calcium Level 8.3 mg/dL (8.5-10.1) Total Bilirubin 0.7 mg/dL (0.2-1.0) Aspartate Amino Transf (AST/SGOT) 13 U/L (15-37) Alanine Aminotransferase (ALT/SGPT) 17 U/L (16-63) Alkaline Phosphatase 78 U/L (46-116) Total Protein 6.6 g/dL (6.4-8.2) Albumin 2.5 g/dL (3.4-5.0) Albumin/Globulin Ratio 0.6 (1.0-1.7) Test 06/06/19 11:33 06/06/19 16:40 06/06/19 20:27 06/07/19 03:55 Glucose (Fingerstick) 156 mg/dL (70-99) 171 mg/dL (70-99) 188 mg/dL (70-99) Sodium Level 138 mmol/L (136-145) Potassium Level 3.7 mmol/L (3.5-5.1) Chloride Level 104 mmol/L (98-107) Carbon Dioxide Level 25 mmol/L (21-32) Anion Gap 9 (6-14) Blood Urea Nitrogen 10 mg/dL (8-26) Creatinine 1.0 mg/dL (0.7-1.3) Estimated GFR (Cockcroft-Gault) 77.3 BUN/Creatinine Ratio 10 (6-20) Glucose Level 211 mg/dL (70-99) Calcium Level 8.4 mg/dL (8.5-10.1) Total Bilirubin 0.5 mg/dL (0.2-1.0) Aspartate Amino Transf (AST/SGOT) 12 U/L (15-37) Alanine Aminotransferase (ALT/SGPT) 16 U/L (16-63) Alkaline Phosphatase 64 U/L (46-116) Total Protein 6.5 g/dL (6.4-8.2) Albumin 2.4 g/dL (3.4-5.0) Albumin/Globulin Ratio 0.6 (1.0-1.7) Test 06/07/19 07:59 Glucose (Fingerstick) 197 mg/dL (70-99) Laboratory Tests Test 06/06/19 11:33 06/06/19 16:40 06/06/19 20:27 06/07/19 03:55 Glucose (Fingerstick) 156 mg/dL (70-99) 171 mg/dL (70-99) 188 mg/dL (70-99) Sodium Level 138 mmol/L (136-145) Potassium Level 3.7 mmol/L (3.5-5.1) Chloride Level 104 mmol/L (98-107) Carbon Dioxide Level 25 mmol/L (21-32) Anion Gap 9 (6-14) Blood Urea Nitrogen 10 mg/dL (8-26) Creatinine 1.0 mg/dL (0.7-1.3) Estimated GFR (Cockcroft-Gault) 77.3 BUN/Creatinine Ratio 10 (6-20) Glucose Level 211 mg/dL (70-99) Calcium Level 8.4 mg/dL (8.5-10.1) Total Bilirubin 0.5 mg/dL (0.2-1.0) Aspartate Amino Transf (AST/SGOT) 12 U/L (15-37) Alanine Aminotransferase (ALT/SGPT) 16 U/L (16-63) Alkaline Phosphatase 64 U/L (46-116) Total Protein 6.5 g/dL (6.4-8.2) Albumin 2.4 g/dL (3.4-5.0) Albumin/Globulin Ratio 0.6 (1.0-1.7) Test 06/07/19 07:59 Glucose (Fingerstick) 197 mg/dL (70-99) Medications Current Medications Sodium Chloride 1,000 ml @ 1,000 mls/hr 1X ONCE IV Last administered on 06/05/19 13:58; Start 06/05/19 at 13:45; Stop 06/05/19 at 14:44; Status DC Dextrose (Dextrose 50%-Water Syringe) 25 gm STK-MED ONCE IV ; Start 06/05/19 at 15:31; Stop 06/05/19 at 15:32; Status DC Vancomycin HCl (Vancomycin Oral Solution) 125 mg [id number] PO Last administered on 06/07/19at 09:58; Start 06/05/19 at 16:00 Metronidazole 100 ml @ 100 mls/hr Q8HRS IV Last administered on 06/07/19 06:09; Start 06/05/19 at 15:45 Potassium Chloride/Dextrose/ Sod Cl 1,000 ml @ 125 mls/hr Q8H IV Last administered on 06/07/19 09:56; Start 06/05/19 at 15:45 Insulin Human Lispro (HumaLOG) 0-5 UNITS TIDWMEALS SQ Last administered on 06/07/19at 10:06; Start 06/05/19 at 17:00 Dextrose (Dextrose 50%-Water Syringe) 12.5 gm PRN Q15MIN PRN IV SEE COMMENTS; Start 06/05/19 at 15:45 Dextrose (Dextrose 50%-Water Syringe) 25 gm 1X ONCE IV Last administered on 06/05/19at 15:48; Start 06/05/19 at 15:45; Stop 06/05/19 at 15:47; Status DC Albuterol Sulfate (Ventolin Neb Soln) 2.5 mg PRN Q6HRS PRN INH SHORTNESS OF BREATH; Start 06/05/19 at 15:45 Amlodipine Besylate (Norvasc) 10 mg DAILY PO Last administered on 06/07/19 09:58; Start 06/06/19 at 09:00 Aspirin (Children'S Aspirin) 81 mg DAILY PO Last administered on 06/07/19 09:57; Start 06/06/19 at 09:00 Atorvastatin Calcium (Lipitor) 20 mg QHS PO Last administered on 06/06/19 20:30; Start 06/05/19 at 21:00 Doxazosin Mesylate (Cardura) 2 mg DAILY PO Last administered on 06/07/19 09:56; Start 06/06/19 at 09:00 Insulin Human Lispro (HumaLOG) 6 units TIDWMEALS SQ Last administered on 06/07/19 10:04; Start 06/06/19 at 08:00 Pantoprazole Sodium (Protonix) 40 mg DAILYAC PO Last administered on 06/07/19 09:57; Start 06/06/19 at 07:30 Losartan Potassium (Cozaar) 50 mg DAILY PO Last administered on 06/07/19 09:57; Start 06/06/19 at 09:00 Enoxaparin Sodium (Lovenox Per Pharmacy Prophylaxis Dosing) 1 each PRN DAILY PRN MC SEE COMMENTS; Start 06/05/19 at 16:00 Enoxaparin Sodium (Lovenox 40mg Syringe) 40 mg Q24H SQ Last administered on 06/06/19at 17:29; Start 06/05/19 at 17:00 Dicyclomine HCl (Bentyl) 10 mg PRN Q6HRS PRN PO SEE COMMENTS; Start 06/06/19 at 10:45 Ondansetron HCl (Zofran) 4 mg PRN Q6HRS PRN IV NAUSEA/VOMITING Last administered on 06/06/19 21:59; Start 06/06/19 at 12:45 Lactobacillus Rhamnosus (Culturelle) 1 cap BID PO Last administered on 06/07/19 09:57; Start 06/06/19 at 21:00 Potassium Chloride (Klor-Con) 40 meq 1X ONCE PO Last administered on 06/06/19at 18:48; Start 06/06/19 at 19:30; Stop 06/06/19 at 19:31; Status DC Potassium Chloride (Klor-Con) 20 meq [id number] PO Last administered on 06/07/19 09:57; Start 06/07/19 at 08:00 Active Scripts Active Reported Proair Hfa Inhaler (Albuterol Sulfate) 8.5 Gm Hfa.aer.ad 1 Puff INH PRN Q6HRS PRN Lantus Solostar (Insulin Glargine,Hum.rec.anlog) 100 Unit/1 Ml Insuln.pen 20 Unit SQ QHS Humalog (Insulin Lispro) 100 Unit/1 Ml Cartridge 6 Unit SQ TIDWMEALS Doxazosin Mesylate 2 Mg Tablet 2 Mg PO DAILY Omeprazole 40 Mg Capsule.dr 40 Mg PO DAILY Amlodipine Besylate 10 Mg Tablet 10 Mg PO DAILY Atorvastatin Calcium 20 Mg Tablet 20 Mg PO DAILY Losartan Potassium 100 Mg Tablet 100 Mg PO DAILY Aspirin 81 Mg Tab.chew 81 Mg PO DAILY Glyburide 5 Mg Tablet 1 Tab PO BID Vitals/I & O Vital Sign - Last 24 Hours 06/06/19 06/06/19 06/06/19 06/06/19 11:00 15:00 19:40 20:00 Temp 97.7 97.9 98.8 97.7 97.9 98.8 Pulse 72 71 70 Resp 17 17 18 B/P (MAP) 117/65 (82) 116/69 (85) 91/57 (68) Pulse Ox 94 93 92 O2 Delivery Room Air Room Air Room Air Room Air 06/06/19 06/07/19 06/07/19 06/07/19 23:40 03:43 07:00 08:00 Temp 98.6 97.7 98.4 98.6 97.7 98.4 Pulse 71 69 70 Resp 18 16 12 B/P (MAP) 113/64 (80) 124/67 (86) 136/69 (91) Pulse Ox 91 93 92 O2 Delivery Room Air Room Air Room Air Room Air 06/07/19 06/07/19 06/07/19 09:56 09:57 09:58 Pulse 70 70 70 B/P (MAP) 136/69 136/69 136/69 Intake and Output 06/06/19 06/06/19 06/07/19 15:00 23:00 07:00 Intake Total 120 ml 400 ml 270 ml Balance 120 ml 400 ml 270 ml LESLY STOCKTON MD Jun 07, 2019 10:52
[2019-06-07 11:00] VITALS: BP 124/72
[2019-06-07] MEDS: ONDANSETRON PF 4 MG/2 ML VIAL. IV PRN (12:40)
--- NOTE | 2019-06-07 13:40 | PDOC ---
Infectious Disease Note Subjective Subjective Not feeling well Mild abd cramps no further diarrhea since admission No F/C/S/N/V ROS ROS per HPI Vital Sign Vital Signs Vital Signs Date Time Temp Pulse Resp B/P (MAP) Pulse Ox O2 Delivery O2 Flow Rate FiO2 06/07/19 11:00 98.0 72 16 124/72 (89) 93 Room Air 98.0 Physical Exam PHYSICAL EXAM GENERAL: Sitting in the chair, alert, NAD HEENT: Pupils equally round. Oropharynx pink and moist. NECK: Supple. LUNGS: Clear to auscultation. HEART: S1 and S2. ABDOMEN: Obese, soft, mildly tender with bowel sounds present. EXTREMITIES: No gross edema or cyanosis. 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 SKIN: Warm to touch. Without rash. NEUROLOGIC: Alert and answering questions appropriately. Labs Lab Laboratory Tests Test 06/06/19 16:40 06/06/19 20:27 06/07/19 03:55 06/07/19 07:59 Glucose (Fingerstick) 171 mg/dL (70-99) 188 mg/dL (70-99) 197 mg/dL (70-99) Sodium Level 138 mmol/L (136-145) Potassium Level 3.7 mmol/L (3.5-5.1) Chloride Level 104 mmol/L (98-107) Carbon Dioxide Level 25 mmol/L (21-32) Anion Gap 9 (6-14) Blood Urea Nitrogen 10 mg/dL (8-26) Creatinine 1.0 mg/dL (0.7-1.3) Estimated GFR (Cockcroft-Gault) 77.3 BUN/Creatinine Ratio 10 (6-20) Glucose Level 211 mg/dL (70-99) Calcium Level 8.4 mg/dL (8.5-10.1) Total Bilirubin 0.5 mg/dL (0.2-1.0) Aspartate Amino Transf (AST/SGOT) 12 U/L (15-37) Alanine Aminotransferase (ALT/SGPT) 16 U/L (16-63) Alkaline Phosphatase 64 U/L (46-116) Total Protein 6.5 g/dL (6.4-8.2) Albumin 2.4 g/dL (3.4-5.0) Albumin/Globulin Ratio 0.6 (1.0-1.7) Test 06/07/19 12:07 Glucose (Fingerstick) 188 mg/dL (70-99) Objective Assessment Acute diarrhea. Ci diff neg, 06/05. better Leukocytosis - better Diabetes HTN h/o group B strep, Acinetobacter, Porphyromonas, plus anaerobes. Plan Plan of Care D/c po vanc and Flagyl stool cultures pending Maintain hydration Patient seen and examined. Chart reviewed in detail. Case discussed with APPLICATION SPECIALIST. Agree with above plan. LYNDSAY PIZARRO APRN Jun 07, 2019 13:40 MARC VALENTINO MD Jun 07, 2019 21:52
[2019-06-07] MEDS ORDERED: CALCIUM CARBONATE 500 MG TAB.CHEW PO PRN (14:15)
--- NOTE | 2019-06-07 14:41 | PDOC ---
GI PROGRESS NOTES Date Date/Time DATE: 06/07/19 TIME: 14:38 Subjective Subjective No further diarrhea but continues to have some decreased appetite and weakness. She'll stool study was negative for C. difficile. He is on empiric treatment presently. Objective Vitals Vital Signs Date Time Temp Pulse Resp B/P (MAP) Pulse Ox O2 Delivery O2 Flow Rate FiO2 06/07/19 11:00 98.0 72 16 124/72 (89) 93 Room Air 98.0 06/07/19 09:58 70 136/69 06/07/19 09:57 70 136/69 06/07/19 09:56 70 136/69 06/07/19 08:00 Room Air 06/07/19 07:00 98.4 70 12 136/69 (91) 92 Room Air 98.4 06/07/19 03:43 97.7 69 16 124/67 (86) 93 Room Air 97.7 06/06/19 23:40 98.6 71 18 113/64 (80) 91 Room Air 98.6 06/06/19 20:00 Room Air 06/06/19 19:40 98.8 70 18 91/57 (68) 92 Room Air 98.8 06/06/19 15:00 97.9 71 17 116/69 (85) 93 Room Air 97.9 Labs Labs Laboratory Tests Test 06/06/19 16:40 06/06/19 20:27 06/07/19 03:55 06/07/19 07:59 Glucose (Fingerstick) 171 mg/dL (70-99) 188 mg/dL (70-99) 197 mg/dL (70-99) Sodium Level 138 mmol/L (136-145) Potassium Level 3.7 mmol/L (3.5-5.1) Chloride Level 104 mmol/L (98-107) Carbon Dioxide Level 25 mmol/L (21-32) Anion Gap 9 (6-14) Blood Urea Nitrogen 10 mg/dL (8-26) Creatinine 1.0 mg/dL (0.7-1.3) Estimated GFR (Cockcroft-Gault) 77.3 BUN/Creatinine Ratio 10 (6-20) Glucose Level 211 mg/dL (70-99) Calcium Level 8.4 mg/dL (8.5-10.1) Total Bilirubin 0.5 mg/dL (0.2-1.0) Aspartate Amino Transf (AST/SGOT) 12 U/L (15-37) Alanine Aminotransferase (ALT/SGPT) 16 U/L (16-63) Alkaline Phosphatase 64 U/L (46-116) Total Protein 6.5 g/dL (6.4-8.2) Albumin 2.4 g/dL (3.4-5.0) Albumin/Globulin Ratio 0.6 (1.0-1.7) Test 06/07/19 12:07 Glucose (Fingerstick) 188 mg/dL (70-99) Physical Exam Physical Exam Alert Chest clear Heart regular rate and rhythm Abdomen soft nontender no organomegaly. Good bowel sounds. Right [id number] amputation with prosthesis Assessment Assessment Acute diarrhea suspicious for gastroenteritis. Initial stool study was negative for C. difficile. Certainly other pathogens must be considered. Seems to be improved with less diarrhea. We'll defer to infectious disease regarding treatment options at this point. Acute and chronic anorexia and poor appetite. Acutely this may be related to gastroenteritis but chronically may just peptic disease - continue to monitor on PPI therapy consider GI workup later JOSE QURESHI MD Jun 07, 2019 14:41
[2019-06-07 15:00] VITALS: BP 109/59
[2019-06-07] MEDS: ENOXAPARIN 40 MG/0.4 ML SYRINGE. SQ SCH (17:56)
[2019-06-07 19:45] VITALS: BP 95/57
[2019-06-07] MEDS: ATORVASTATIN CALCIUM 20 MG TABLET PO SCH (21:04)
[2019-06-07 23:45] VITALS: BP 103/58
[2019-06-08 03:45] VITALS: BP 128/66
[2019-06-08 07:30] VITALS: BP 125/36
--- NOTE | 2019-06-08 07:48 | EKG ---
[facility] [address] [place] [address] Test Date: 2019-06-05 Test Time: 12:37:15 Pat Name: RONNY GOLDSMITH Department: Room: [facility] Gender: M Senior Chemist: : 1960 Requested By: PAUL GRIMES Order Number: [id number] Reading MD: Measurements Intervals [place] Rate: 70 P: 17 GA: 154 QRS: 17 QRSD: 90 T: 23 QT: 424 QTc: 461 Interpretive Statements SINUS RHYTHM NORMAL ECG RI6.01 Unconfirmed report No previous ECG available for comparison
--- NOTE | 2019-06-08 08:45 | NUR ---
Wound Care Wound care consult for maceration to thighs, buttocks and coccyx. Pt has IAD to these areas only right thigh has open areas. Barrier cream applied. No other wounds noted on full skin inspection, pt on P500 bed. Pt left with Tamiko RINCON at bedside. WC will continue to follow for possible changes.
[2019-06-08] MEDS: POTASSIUM CHLORIDE 20 MEQ TABLET.ER. PO SCH (08:46)
[2019-06-08] MEDS: PANTOPRAZOLE 40 MG TABLET.DR. PO SCH (08:46)
[2019-06-08] MEDS: ASPIRIN CHEWABLE 81 MG TABLET. PO SCH (08:46)
[2019-06-08] MEDS: LOSARTAN POTASSIUM 50 MG TABLET. PO SCH (08:47)
[2019-06-08] MEDS: amLODIPine BESYLATE 10 MG TABLET PO SCH (08:47)
[2019-06-08] MEDS: DOXAZOSIN MESYLATE 1 MG TABLET. PO SCH (08:48)
[2019-06-08] MEDS: POTASSIUM CL 20MEQ D5-0.45NACL 1,000 ML IV SCH ×2 (08:48→17:08)
[2019-06-08] MEDS: INSULIN LISPRO 300 UNITS/3 ML INSULN.PEN. SQ SCH ×6 (08:58→18:36)
[2019-06-08] MEDS: LACTOBACILLUS RHAMNOSUS GG 1 CAPSULE. PO SCH ×2 (09:00→20:56)
--- NOTE | 2019-06-08 09:29 | PDOC ---
PROGRESS NOTES Chief Complaint Chief Complaint Assessment/Plan diarrhea with nausea sepsis, leukocytosis , CRP high, fluid given C. diff. tox neg 06/06 weakness and debility DM2, with acute hypoglycemia, hold glyburide, start D5 fluid 125/hr BMI 38 severe protein-caloric malnutrition he had previously been on disability for r BKA Early satiety since PEG removal - likely diabetic gastroparesis, will get GES 29 min pt exam, chart review, > 50% of time spent with exam, chart review, pt care coordination, disease process education History of Present Illness History of Present Illness Mr Spain is a 58-year-old male SNF resident w/ PMHx Diabetes, hypertension, obesity, diabetic neuropathy, osteoarthritis, history of gangrenous diabetic foot wound, status post right BKA. History of group B strep, Acinetobacter, Porphyromonas and anaerobe infections, history of cardiac arrest, sleep apnea on CPAP and hyperlipidemia who presented with a two-day history of acute diarrhea, nonbloody with bowel urgency and incontinence. He says he has lost his appetite and is having abdominal cramps and some bloating. He had prolonged ventilatory stay for ARDS and is status post trach 03/26/19, status post PEG 03/27/19. He was recently discharged from [facility] with Tracheostomy reversed prior to d/c to SNF and is currently living at [facility]. Had a PEG tube removal 05/21/19.\ He denies dining out except for what is served at SNF He is not aware of any other residents with similar symptoms. Within the last three months, he has been on antibiotics. No c diff, no BM for the past 2 days. He c/o early satiety, feels he his almost ready to return home, have d/w PT and OT he should have home health. Vitals Vitals Vital Signs Date Time Temp Pulse Resp B/P (MAP) Pulse Ox O2 Delivery O2 Flow Rate FiO2 06/08/19 08:48 76 125/36 06/08/19 07:30 97.5 18 91 Room Air 97.5 Physical Exam Physical Exam GENERAL: Sitting in the chair, alert, NAD HEENT: Pupils equally round. Oropharynx pink and moist. NECK: Supple. LUNGS: Clear to auscultation. HEART: S1 and S2. ABDOMEN: Obese, soft, mildly tender with bowel sounds present. EXTREMITIES: No gross edema or cyanosis. 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 SKIN: Warm to touch. Without rash. NEUROLOGIC: Alert and answering questions appropriately. General: Alert, Oriented X3, No acute distress Heart: Regular rate, Normal S1, Normal S2 Lungs: Clear, Crackles Abdomen: Normal bowel sounds, Soft, No tenderness, No hepatosplenomegaly, No masses Extremities: No clubbing, No cyanosis, No edema, Normal pulses Skin: No rashes, No breakdown Labs LABS Laboratory Tests Test 06/07/19 12:07 06/07/19 16:55 06/07/19 20:57 Glucose (Fingerstick) 188 mg/dL (70-99) 171 mg/dL (70-99) 178 mg/dL (70-99) Assessment and Plan Assessmemt and Plan Problems Medical Problems: (1) Diarrhea Status: Acute (2) Enteritis Status: Acute (3) Sepsis Status: Acute Comment Review of Relevant I have reviewed the following items pascual (where applicable) has been applied. Labs Laboratory Tests Test 06/06/19 11:33 06/06/19 16:40 06/06/19 20:27 06/07/19 03:55 Glucose (Fingerstick) 156 mg/dL (70-99) 171 mg/dL (70-99) 188 mg/dL (70-99) Sodium Level 138 mmol/L (136-145) Potassium Level 3.7 mmol/L (3.5-5.1) Chloride Level 104 mmol/L (98-107) Carbon Dioxide Level 25 mmol/L (21-32) Anion Gap 9 (6-14) Blood Urea Nitrogen 10 mg/dL (8-26) Creatinine 1.0 mg/dL (0.7-1.3) Estimated GFR (Cockcroft-Gault) 77.3 BUN/Creatinine Ratio 10 (6-20) Glucose Level 211 mg/dL (70-99) Calcium Level 8.4 mg/dL (8.5-10.1) Total Bilirubin 0.5 mg/dL (0.2-1.0) Aspartate Amino Transf (AST/SGOT) 12 U/L (15-37) Alanine Aminotransferase (ALT/SGPT) 16 U/L (16-63) Alkaline Phosphatase 64 U/L (46-116) Total Protein 6.5 g/dL (6.4-8.2) Albumin 2.4 g/dL (3.4-5.0) Albumin/Globulin Ratio 0.6 (1.0-1.7) Test 06/07/19 07:59 06/07/19 12:07 06/07/19 16:55 06/07/19 20:57 Glucose (Fingerstick) 197 mg/dL (70-99) 188 mg/dL (70-99) 171 mg/dL (70-99) 178 mg/dL (70-99) Laboratory Tests Test 06/07/19 12:07 06/07/19 16:55 06/07/19 20:57 Glucose (Fingerstick) 188 mg/dL (70-99) 171 mg/dL (70-99) 178 mg/dL (70-99) Medications Current Medications Sodium Chloride 1,000 ml @ 1,000 mls/hr 1X ONCE IV Last administered on 06/05/19at 13:58; Start 06/05/19 at 13:45; Stop 06/05/19 at 14:44; Status DC Dextrose (Dextrose 50%-Water Syringe) 25 gm STK-MED ONCE IV ; Start 06/05/19 at 15:31; Stop 06/05/19 at 15:32; Status DC Vancomycin HCl (Vancomycin Oral Solution) 125 mg [id number] PO Last administered on 06/07/19at 09:58; Start 06/05/19 at 16:00; Stop 06/07/19 at 13:39; Status DC Metronidazole 100 ml @ 100 mls/hr Q8HRS IV Last administered on 06/07/19at 06:09; Start 06/05/19 at 15:45; Stop 06/07/19 at 13:39; Status DC Potassium Chloride/Dextrose/ Sod Cl 1,000 ml @ 125 mls/hr Q8H IV Last administered on 06/08/19at 08:48; Start 06/05/19 at 15:45 Insulin Human Lispro (HumaLOG) 0-5 UNITS TIDWMEALS SQ Last administered on 06/08/19 08:58; Start 06/05/19 at 17:00 Dextrose (Dextrose 50%-Water Syringe) 12.5 gm PRN Q15MIN PRN IV SEE COMMENTS; Start 06/05/19 at 15:45 Dextrose (Dextrose 50%-Water Syringe) 25 gm 1X ONCE IV Last administered on 06/05/19 15:48; Start 06/05/19 at 15:45; Stop 06/05/19 at 15:47; Status DC Albuterol Sulfate (Ventolin Neb Soln) 2.5 mg PRN Q6HRS PRN INH SHORTNESS OF BREATH; Start 06/05/19 at 15:45 Amlodipine Besylate (Norvasc) 10 mg DAILY PO Last administered on 06/08/19 08:47; Start 06/06/19 at 09:00 Aspirin (Children'S Aspirin) 81 mg DAILY PO Last administered on 06/08/19 08:46; Start 06/06/19 at 09:00 Atorvastatin Calcium (Lipitor) 20 mg QHS PO Last administered on 06/07/19 21:04; Start 06/05/19 at 21:00 Doxazosin Mesylate (Cardura) 2 mg DAILY PO Last administered on 06/08/19 08:48; Start 06/06/19 at 09:00 Insulin Human Lispro (HumaLOG) 6 units TIDWMEALS SQ Last administered on 06/08/19 08:59; Start 06/06/19 at 08:00 Pantoprazole Sodium (Protonix) 40 mg DAILYAC PO Last administered on 06/08/19 08:46; Start 06/06/19 at 07:30 Losartan Potassium (Cozaar) 50 mg DAILY PO Last administered on 06/08/19 08:47; Start 06/06/19 at 09:00 Enoxaparin Sodium (Lovenox Per Pharmacy Prophylaxis Dosing) 1 each PRN DAILY PRN MC SEE COMMENTS; Start 06/05/19 at 16:00 Enoxaparin Sodium (Lovenox 40mg Syringe) 40 mg Q24H SQ Last administered on 06/07/19 17:56; Start 06/05/19 at 17:00 Dicyclomine HCl (Bentyl) 10 mg PRN Q6HRS PRN PO SEE COMMENTS; Start 06/06/19 at 10:45 Ondansetron HCl (Zofran) 4 mg PRN Q6HRS PRN IV NAUSEA/VOMITING Last administered on 06/07/19 12:40; Start 06/06/19 at 12:45 Lactobacillus Rhamnosus (Culturelle) 1 cap BID PO Last administered on 7/7/19at 21:04; Start 06/06/19 at 21:00 Potassium Chloride (Klor-Con) 40 meq 1X ONCE PO Last administered on 06/06/19 18:48; Start 06/06/19 at 19:30; Stop 06/06/19 at 19:31; Status DC Potassium Chloride (Klor-Con) 20 meq DAILYWBKFT PO Last administered on 06/08/19 08:46; Start 06/07/19 at 08:00 Calcium Carbonate/ Glycine (Tums) 500 mg PRN AFTMEALHC PRN PO INDIGESTION Last administered on 06/07/19at 14:50; Start 06/07/19 at 14:15 Active Scripts Active Reported Proair Hfa Inhaler (Albuterol Sulfate) 8.5 Gm Hfa.aer.ad 1 Puff INH PRN Q6HRS PRN Lantus Solostar (Insulin Glargine,Hum.rec.anlog) 100 Unit/1 Ml Insuln.pen 20 Unit SQ QHS Humalog (Insulin Lispro) 100 Unit/1 Ml Cartridge 6 Unit SQ TIDWMEALS Doxazosin Mesylate 2 Mg Tablet 2 Mg PO DAILY Omeprazole 40 Mg Capsule.dr 40 Mg PO DAILY Amlodipine Besylate 10 Mg Tablet 10 Mg PO DAILY Atorvastatin Calcium 20 Mg Tablet 20 Mg PO DAILY Losartan Potassium 100 Mg Tablet 100 Mg PO DAILY Aspirin 81 Mg Tab.chew 81 Mg PO DAILY Glyburide 5 Mg Tablet 1 Tab PO BID Vitals/I & O Vital Sign - Last 24 Hours 06/07/19 06/07/19 06/07/19 06/07/19 09:56 09:57 09:58 11:00 Temp 98.0 98.0 Pulse 70 70 70 72 Resp 16 B/P (MAP) 136/69 136/69 136/69 124/72 (89) Pulse Ox 93 O2 Delivery Room Air 06/07/19 06/07/19 06/07/19 06/07/19 15:00 19:45 20:00 23:45 Temp 98.1 97.8 97.9 98.1 97.8 97.9 Pulse 74 73 71 Resp 16 18 18 B/P (MAP) 109/59 (76) 95/57 (70) 103/58 (73) Pulse Ox 90 92 92 O2 Delivery Room Air Room Air Room Air Room Air 06/08/19 06/08/19 06/08/19 06/08/19 03:45 07:30 08:47 08:47 Temp 97.9 97.5 97.9 97.5 Pulse 73 76 76 76 Resp 18 18 B/P (MAP) 128/66 (86) 125/36 (65) 125/36 125/36 Pulse Ox 94 91 O2 Delivery Room Air Room Air 06/08/19 08:48 Pulse 76 B/P (MAP) 125/36 Intake and Output 06/07/19 06/07/19 06/08/19 14:59 22:59 06:59 Intake Total 200 ml 420 ml Balance 200 ml 420 ml YRIS RUIZ MD Jun 08, 2019 09:29
--- NOTE | 2019-06-08 10:23 | PDOC ---
Subjective: Subjective: No diarrhea, mild mid/lower abd discomfort that comes and goes, tolerating PO w/o n/v - mentions early satiety, lack of appetite "ever since they took the tube out." Objective: Objective: D/w nurse - tolerating PO, no stools for 3 days. Fecal WBC and stool culture uncollected. Vital Signs: Vital Signs Date Time Temp Pulse Resp B/P (MAP) Pulse Ox O2 Delivery O2 Flow Rate FiO2 06/08/19 08:48 76 125/36 06/08/19 07:30 97.5 18 91 Room Air 97.5 Labs: Laboratory Tests Test 06/07/19 12:07 06/07/19 16:55 06/07/19 20:57 Glucose (Fingerstick) 188 mg/dL 171 mg/dL 178 mg/dL PE: GEN: NAD LUNGS: CTAB HEART: RRR ABD: BS+, soft, non-tender, previous PEG site NEURO/PSYCH: A & O 3 A/P: Diarrhea - resolved, C Diff neg. Early satiety, anorexia, h/o GERD - on PPI here, non-erosive gastritis only significant findings on EGD for PEG placement in 03/2019 H/o PEG placement/removal CRC screen - UTD (2015) -- Stable/improved GI-foss. Continue PPI and consider further eval of early satiety, etc. as outpt (?GES - h/o DM) Has dicyclomine ordered - hasn't taken - could try for intermittent abd discomfort. No abd imaging this admission, could consider KUB. JR MOFFETT Jun 08, 2019 10:23
[2019-06-08 11:00] VITALS: BP 123/76
--- NOTE | 2019-06-08 11:10 | NUR ---
MELVIN following pt for dc planning. Chart reviewed and discussed with RN, Physician. Pt lives at [facility] and PT recommends home health, OT recommends SNU. MELVIN left a voice mail to [facility] DON pt is a possible dc today. Will continue to follow. Addendum: 06/08/19 at 1519 by FERN CHARLES Pt is current with [facility]
[2019-06-08] MEDS: ONDANSETRON PF 4 MG/2 ML VIAL. IV PRN (12:32)
[2019-06-08] MEDS: POLYETHYLENE GLYCOL 3350 17 GM PACKET. PO SCH (12:34)
[2019-06-08 15:00] VITALS: BP 124/71
--- NOTE | 2019-06-08 16:12 | RAD ---
3 views of the abdomen 06/08/2019 INDICATION: Constipation. Early satiety. COMPARISON: None FINDINGS: The bowel gas pattern is nonobstructive. No gross pneumoperitoneum is identified. No acute osseous changes are seen IMPRESSION: No radiographic evidence of acute intra-abdominal abnormality Electronically signed by: Chivo Wadsworth MD (06/08/2019 4:10 PM) [id number]
[2019-06-08] MEDS: ENOXAPARIN 40 MG/0.4 ML SYRINGE. SQ SCH (17:00)
[2019-06-08 19:20] VITALS: BP 109/54
[2019-06-08] MEDS: ATORVASTATIN CALCIUM 20 MG TABLET PO SCH (20:56)
[2019-06-08 23:20] VITALS: BP 113/53
[2019-06-09] MEDS: POTASSIUM CL 20MEQ D5-0.45NACL 1,000 ML IV SCH ×4 (01:00→20:43)
[2019-06-09 03:20] VITALS: BP 127/65
--- NOTE | 2019-06-09 06:05 | NUR ---
Patient had 6-beat run of v-tach. Sent message to Dr. Henry. Will inform day RN, Tamiko Valentine
[2019-06-09 07:00] VITALS: BP 140/70
[2019-06-09] MEDS: POTASSIUM CHLORIDE 20 MEQ TABLET.ER. PO SCH (08:00)
[2019-06-09] MEDS: INSULIN LISPRO 300 UNITS/3 ML INSULN.PEN. SQ SCH ×6 (08:00→17:00)
--- NOTE | 2019-06-09 08:32 | PDOC ---
PROGRESS NOTES Chief Complaint Chief Complaint Assessment/Plan sepsis, leukocytosis , CRP high, fluid given C. diff. tox neg 06/06 weakness and debility Diarrhea - resolved, colonoscopy UTD Early satiety, anorexia, h/o GERD - on PPI, EGD unrevealing 03/2019 Mid abd discomfort - better H/o DM - A1c 5.3, was hypoglycemic, hold sulfonylurea BMI 38 severe protein-caloric malnutrition he had previously been on disability for r BKA Early satiety since PEG removal - likely diabetic gastroparesis, will get GES 29 min pt exam, chart review, > 50% of time spent with exam, chart review, pt care coordination, disease process education History of Present Illness History of Present Illness Mr Spain is a 58-year-old male SNF resident w/ PMHx Diabetes, hypertension, obesity, diabetic neuropathy, osteoarthritis, history of gangrenous diabetic foot wound, status post right BKA. History of group B strep, Acinetobacter, Porphyromonas and anaerobe infections, history of cardiac arrest, sleep apnea on CPAP and hyperlipidemia who presented with a two-day history of acute diarrhea, nonbloody with bowel urgency and incontinence. He says he has lost his appetite and is having abdominal cramps and some bloating. He had prolonged ventilatory stay for ARDS and is status post trach 03/26/19, status post PEG 03/27/19. He was recently discharged from LTAC with Tracheostomy reversed prior to d/c to SNF and is currently living at [facility]. Had a PEG tube removal 05/21/19.\ He denies dining out except for what is served at SNF He is not aware of any other residents with similar symptoms. Within the last three months, he has been on antibiotics. No c diff, no BM for the past 2 days. He c/o early satiety, feels he his almost ready to return home, have d/w PT and OT he should have home health. Just got back from gastric emptying test. Not hungry. Hasn't stooled. Hasn't been bothered by abd pain. Vitals Vitals Vital Signs Date Time Temp Pulse Resp B/P (MAP) Pulse Ox O2 Delivery O2 Flow Rate FiO2 06/09/19 07:00 97.8 77 18 140/70 (93) 92 Room Air 97.8 Physical Exam Physical Exam GENERAL: Sitting in the chair, alert, NAD HEENT: Pupils equally round. Oropharynx pink and moist. NECK: Supple. LUNGS: Clear to auscultation. HEART: S1 and S2. ABDOMEN: Obese, soft, mildly tender with bowel sounds present. EXTREMITIES: No gross edema or cyanosis. 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 SKIN: Warm to touch. Without rash. NEUROLOGIC: Alert and answering questions appropriately. General: Alert, Oriented X3, No acute distress Heart: Regular rate, Normal S1, Normal S2 Lungs: Clear, Crackles Abdomen: Normal bowel sounds, Soft, No tenderness, No hepatosplenomegaly, No masses Extremities: No clubbing, No cyanosis, No edema, Normal pulses Skin: No rashes, No breakdown Labs LABS Laboratory Tests Test 06/08/19 12:06 06/08/19 16:53 06/08/19 21:13 06/09/19 07:33 Glucose (Fingerstick) 185 mg/dL (70-99) 152 mg/dL (70-99) 143 mg/dL (70-99) 176 mg/dL (70-99) Assessment and Plan Assessmemt and Plan Problems Medical Problems: (1) Diarrhea Status: Acute (2) Enteritis Status: Acute (3) Sepsis Status: Acute Comment Review of Relevant I have reviewed the following items pascual (where applicable) has been applied. Labs Laboratory Tests Test 06/07/19 12:07 06/07/19 16:55 06/07/19 20:57 06/08/19 12:06 Glucose (Fingerstick) 188 mg/dL (70-99) 171 mg/dL (70-99) 178 mg/dL (70-99) 185 mg/dL (70-99) Test 06/08/19 16:53 06/08/19 21:13 06/09/19 07:33 Glucose (Fingerstick) 152 mg/dL (70-99) 143 mg/dL (70-99) 176 mg/dL (70-99) Laboratory Tests Test 06/08/19 12:06 06/08/19 16:53 06/08/19 21:13 06/09/19 07:33 Glucose (Fingerstick) 185 mg/dL (70-99) 152 mg/dL (70-99) 143 mg/dL (70-99) 176 mg/dL (70-99) Medications Current Medications Sodium Chloride 1,000 ml @ 1,000 mls/hr 1X ONCE IV Last administered on 06/05/19 13:58; Start 06/05/19 at 13:45; Stop 06/05/19 at 14:44; Status DC Dextrose (Dextrose 50%-Water Syringe) 25 gm STK-MED ONCE IV ; Start 06/05/19 at 15:31; Stop 06/05/19 at 15:32; Status DC Vancomycin HCl (Vancomycin Oral Solution) 125 mg [id number] PO Last administered on 06/07/19 09:58; Start 06/05/19 at 16:00; Stop 06/07/19 at 13:39; Status DC Metronidazole 100 ml @ 100 mls/hr Q8HRS IV Last administered on 06/07/19 06:09; Start 06/05/19 at 15:45; Stop 06/07/19 at 13:39; Status DC Potassium Chloride/Dextrose/ Sod Cl 1,000 ml @ 125 mls/hr Q8H IV Last administered on 06/09/19at 01:00; Start 06/05/19 at 15:45 Insulin Human Lispro (HumaLOG) 0-5 UNITS TIDWMEALS SQ Last administered on 06/08/19 12:39; Start 06/05/19 at 17:00 Dextrose (Dextrose 50%-Water Syringe) 12.5 gm PRN Q15MIN PRN IV SEE COMMENTS; Start 06/05/19 at 15:45 Dextrose (Dextrose 50%-Water Syringe) 25 gm 1X ONCE IV Last administered on 06/05/19at 15:48; Start 06/05/19 at 15:45; Stop 06/05/19 at 15:47; Status DC Albuterol Sulfate (Ventolin Neb Soln) 2.5 mg PRN Q6HRS PRN INH SHORTNESS OF BREATH; Start 06/05/19 at 15:45 Amlodipine Besylate (Norvasc) 10 mg DAILY PO Last administered on 06/08/19 08:47; Start 06/06/19 at 09:00 Aspirin (Children'S Aspirin) 81 mg DAILY PO Last administered on 06/08/19 08:46; Start 06/06/19 at 09:00 Atorvastatin Calcium (Lipitor) 20 mg QHS PO Last administered on 06/08/19 20:56; Start 06/05/19 at 21:00 Doxazosin Mesylate (Cardura) 2 mg DAILY PO Last administered on 06/08/19 08:48; Start 06/06/19 at 09:00 Insulin Human Lispro (HumaLOG) 6 units TIDWMEALS SQ Last administered on 06/08/19 18:36; Start 06/06/19 at 08:00 Pantoprazole Sodium (Protonix) 40 mg DAILYAC PO Last administered on 06/08/19 08:46; Start 06/06/19 at 07:30 Losartan Potassium (Cozaar) 50 mg DAILY PO Last administered on 06/08/19 08:47; Start 06/06/19 at 09:00 Enoxaparin Sodium (Lovenox Per Pharmacy Prophylaxis Dosing) 1 each PRN DAILY PRN MC SEE COMMENTS; Start 06/05/19 at 16:00 Enoxaparin Sodium (Lovenox 40mg Syringe) 40 mg Q24H SQ Last administered on 06/08/19 17:00; Start 06/05/19 at 17:00 Dicyclomine HCl (Bentyl) 10 mg PRN Q6HRS PRN PO SEE COMMENTS; Start 06/06/19 at 10:45 Ondansetron HCl (Zofran) 4 mg PRN Q6HRS PRN IV NAUSEA/VOMITING Last administered on 06/08/19 12:32; Start 06/06/19 at 12:45 Lactobacillus Rhamnosus (Culturelle) 1 cap BID PO Last administered on 06/08/19 20:56; Start 06/06/19 at 21:00 Potassium Chloride (Klor-Con) 40 meq 1X ONCE PO Last administered on 06/06/19 18:48; Start 06/06/19 at 19:30; Stop 06/06/19 at 19:31; Status DC Potassium Chloride (Klor-Con) 20 meq DAILYWBKFT PO Last administered on 06/08/19 08:46; Start 06/07/19 at 08:00 Calcium Carbonate/ Glycine (Tums) 500 mg PRN AFTMEALHC PRN PO INDIGESTION Last administered on 06/07/19 14:50; Start 06/07/19 at 14:15 Polyethylene Glycol (miraLAX PACKET) 17 gm DAILY PO Last administered on 7/8/19at 12:34; Start 06/08/19 at 13:00 Active Scripts Active Reported Proair Hfa Inhaler (Albuterol Sulfate) 8.5 Gm Hfa.aer.ad 1 Puff INH PRN Q6HRS PRN Lantus Solostar (Insulin Glargine,Hum.rec.anlog) 100 Unit/1 Ml Insuln.pen 20 Unit SQ QHS Humalog (Insulin Lispro) 100 Unit/1 Ml Cartridge 6 Unit SQ TIDWMEALS Doxazosin Mesylate 2 Mg Tablet 2 Mg PO DAILY Omeprazole 40 Mg Capsule.dr 40 Mg PO DAILY Amlodipine Besylate 10 Mg Tablet 10 Mg PO DAILY Atorvastatin Calcium 20 Mg Tablet 20 Mg PO DAILY Losartan Potassium 100 Mg Tablet 100 Mg PO DAILY Aspirin 81 Mg Tab.chew 81 Mg PO DAILY Glyburide 5 Mg Tablet 1 Tab PO BID Vitals/I & O Vital Sign - Last 24 Hours 06/08/19 06/08/19 06/08/19 06/08/19 08:47 08:47 08:48 11:00 Temp 98.0 98.0 Pulse 76 76 76 80 Resp 16 B/P (MAP) 125/36 125/36 125/36 123/76 (92) Pulse Ox 93 O2 Delivery Room Air 06/08/19 06/08/19 06/08/19 06/08/19 15:00 19:20 20:00 23:20 Temp 98.1 98.3 98.2 98.1 98.3 98.2 Pulse 81 80 72 Resp 16 16 16 B/P (MAP) 124/71 (88) 109/54 (72) 113/53 (73) Pulse Ox 93 96 93 O2 Delivery Room Air Room Air Room Air Room Air 06/09/19 06/09/19 03:20 07:00 Temp 97.7 97.8 97.7 97.8 Pulse 73 77 Resp 16 18 B/P (MAP) 127/65 (85) 140/70 (93) Pulse Ox 94 92 O2 Delivery Room Air Room Air Intake and Output 06/08/19 06/08/19 06/09/19 14:59 22:59 06:59 Intake Total 500 ml 320 ml 300 ml Balance 500 ml 320 ml 300 ml YRIS RUIZ MD Jun 09, 2019 08:32
[2019-06-09] MEDS: POLYETHYLENE GLYCOL 3350 17 GM PACKET. PO SCH (09:00)
--- NOTE | 2019-06-09 09:42 | PDOC ---
Subjective: Subjective: Just got back from gastric emptying test. Not hungry. Hasn't stooled. Hasn't been bothered by abd pain. Objective: Vital Signs: Vital Signs Date Time Temp Pulse Resp B/P (MAP) Pulse Ox O2 Delivery O2 Flow Rate FiO2 06/09/19 08:00 Room Air 06/09/19 07:00 97.8 77 18 140/70 (93) 92 97.8 Labs: Laboratory Tests Test 06/08/19 12:06 06/08/19 16:53 06/08/19 21:13 06/09/19 07:33 Glucose (Fingerstick) 185 mg/dL 152 mg/dL 143 mg/dL 176 mg/dL Imaging: KUB 06/08 IMPRESSION: No radiographic evidence of acute intra-abdominal abnormality. PE: GEN: NAD LUNGS: CTAB HEART: RRR ABD: S/ND/NT NEURO/PSYCH: A & O 3, flat A/P: Diarrhea - resolved, colonoscopy UTD Early satiety, anorexia, h/o GERD - on PPI, EGD unrevealing 03/2019 Mid abd discomfort - better -- GES in process, await this. Continue PPI. Has dicyclomine if needed. Note is now taking Miralax. GES 06/09/19 Percentage retention at... One hour is 75% (normal 34.8-91%). Two hours 64% (normal 2.7-60%). Three hours 60% (normal 0.5-28%). Four hours 48% (normal 0-10%). Impression: Abnormal gastric emptying study with 48 percent residual gastric retention at 4 hours consistent with severely delayed gastric emptying. Currently tolerating PO w/o n/v but does report decreased appetite and early satiety. H/o DM - A1c 5.3%. Would recommend gastroparesis diet and will review w/ Dr. Everett re: trial of prokinetic. RJ MOFFETT Jun 09, 2019 09:42
[2019-06-09 10:10] LABS: ALBUMIN 2.7 g/dL (3.4-5.0); ALBUMIN/GLOBULIN RATIO 0.6 (1.0-1.7); CALCIUM 8.8 mg/dL (8.5-10.1); GFR 77.3; POTASSIUM 4.4 mmol/L (3.5-5.1); TOTAL BILIRUBIN 0.5 mg/dL (0.2-1.0); TOTAL PROTEIN 7.1 g/dL (6.4-8.2)
[2019-06-09 11:00] VITALS: BP 144/67
--- NOTE | 2019-06-09 11:39 | NUR ---
MELVIN following pt. Spoke with pt at bedside regarding SNU but pt has used 35 days and also has accrued $2400 at [place] [facility] from previous stay. Pt reported he can not afford to go to [facility] and would like to return [facility]. Discussed with Physician. Addendum: 06/09/19 at 1346 by FERN CHARLES HH arranged by Bria from [facility]. MELVIN arranged transportation via [employer] between [id number]. MELVIN phoned [facility] and notified them and they reported pt lives at [place].
[2019-06-09] MEDS ORDERED: BETH5TAB PO (12:05)
[2019-06-09] MEDS ORDERED: DICY10CA3 PO (12:05)
[2019-06-09] MEDS ORDERED: POTA20TA4 PO (12:05)
--- NOTE | 2019-06-09 12:06 | SNU/HH DC ---
DISCHARGE WITH HOME HEALTH DISCHARGE INFORMATION: Discharge Date: Jun 09, 2019 Final Diagnosis: Problems Medical Problems: (1) Diarrhea Status: Acute (2) Enteritis Status: Acute (3) Sepsis Status: Acute Condition on Discharge: Stable CODE STATUS: Code Status: Full HOME HEALTH: Face to Face: I certify this patient is under my care and that I, or a nurse practitioner or physician's education assistant working with me, had a face to face encounter that meets the physician face to face encounter requirements with this patient on 06/09/19. Medical Complications: CHF, DM Long-Term For: Assess/Skilled Observatio, Diabetic Care, Medication Management RN For Eval/Treatment: Yes Physical Therapy For: Evalulation/Treatment Occupational Therapy For: Evaluation/Treatment Pt Meets Homebound Status: Unsteady balance w/ amb,, Fatigue w/ amb. POST DISCHARGE ORDERS: Activity Instructions for Disc: Activity as tolerated DIET AFTER DISCHARGE: ADA Wound/Incision Care: Reinforce dressing PRN CHECKS AFTER DISCHARGE: Checks after discharge: Check blood press - daily, Check blood sugar, ac/hs FOLLOW-UP: DC TO SNF LABS: BMP, CBC TREATMENT/EQUIPMENT ORDERS: Discharge Respiratory Equipmen: BiPAP CERTIFICATION STATEMENT: Certification Statement: Certification Statement: Based on the above finding, I certify that this patient is confined to the home and needs intermittent snf care, physical therapy and/or speech therapy, or continues to need occupational therapy.~ This patient is under my care, and I have initiated the establishment of the plan of care.~ This patient will be followed by myself or a community physician who will periodically review the plan of care. Home Meds Active Scripts Polyethylene Glycol 3350 (POLYETHYLENE GLYCOL 3350) 17 Gm Powd.pack, 17 GM PO DAILY for Constipation for 30 Days, #30 PKT 2 Refills Prov:YRIS RUIZ MD 06/09/19 Bethanechol Chloride (URECHOLINE) 5 Mg Tablet, 5 MG PO TIDBFRMEAL for Diabetic gastroparesis for 30 Days, #90 TAB 2 Refills Prov:YRIS RUIZ MD 06/09/19 Potassium Chloride (KLOR-CON M20) 20 Meq Tab.er.prt, 20 MEQ PO DAILYWBKFT for Hypokalemia for 30 Days, #30 TAB.SR 2 Refills Prov:YRIS RUIZ MD 06/09/19 Dicyclomine Hcl (DICYCLOMINE HCL) 10 Mg Capsule, 10 MG PO PRN Q6HRS PRN for SEE COMMENTS for 30 Days, #12 CAP 2 Refills Prov:YRIS RUIZ MD 06/09/19 Reported Medications Albuterol Sulfate (PROAIR HFA INHALER) 8.5 Gm Hfa.aer.ad, 1 PUFF INH PRN Q6HRS PRN for SHORTNESS OF BREATH, INHALER 0 Refills 02/27/19 Insulin Glargine,Hum.rec.anlog (LANTUS SOLOSTAR) 100 Unit/1 Ml Insuln.pen, 20 UNIT SQ QHS for dm, #15 ML 5 Refills 02/27/19 Insulin Lispro (HUMALOG) 100 Unit/1 Ml Cartridge, 6 UNIT SQ TIDWMEALS for dm, EACH 02/27/19 Doxazosin Mesylate (DOXAZOSIN MESYLATE) 2 Mg Tablet, 2 MG PO DAILY for htn, TAB 02/27/19 Omeprazole (OMEPRAZOLE) 40 Mg Capsule.dr, 40 MG PO DAILY for gerd, CAP 02/27/19 Amlodipine Besylate (AMLODIPINE BESYLATE) 10 Mg Tablet, 10 MG PO DAILY for htn, TAB 02/27/19 Atorvastatin Calcium (ATORVASTATIN CALCIUM) 20 Mg Tablet, 20 MG PO DAILY for FOR CHOLESTEROL, #30 TAB 0 Refills 02/27/19 Losartan Potassium (LOSARTAN POTASSIUM) 100 Mg Tablet, 100 MG PO DAILY for HYPERTENSION, TAB 02/27/19 Aspirin (ASPIRIN) 81 Mg Tab.chew, 81 MG PO DAILY for heart health, TAB.CHEW 02/27/19 YRIS RUIZ MD Jun 09, 2019 12:06
[2019-06-09] MEDS ORDERED: POLY17PO28 PO (12:13)
--- NOTE | 2019-06-09 12:18 | PDOC3 ---
Discharge Summary Visit Information Date of Admission: Jun 05, 2019 Date of Discharge: Jun 10, 2019 Admitting Diagnosis: Enteritis, early satiety Final Diagnosis Problems Medical Problems: (1) Diarrhea Status: Acute (2) Enteritis Status: Acute (3) Sepsis Status: Acute Brief Hospital Course Allergies Allergies Coded Allergies Type Severity Reaction Last Updated Verified No Known Drug Allergies 05/21/19 No Vital Signs Vital Signs Date Time Temp Pulse Resp B/P (MAP) Pulse Ox O2 Delivery O2 Flow Rate FiO2 06/09/19 11:00 98.8 80 16 144/67 (92) 95 Room Air 98.8 Lab Results Laboratory Tests Test 06/07/19 16:55 06/07/19 20:57 06/08/19 12:06 06/08/19 16:53 Glucose (Fingerstick) 171 mg/dL (70-99) 178 mg/dL (70-99) 185 mg/dL (70-99) 152 mg/dL (70-99) Test 06/08/19 21:13 06/09/19 07:33 06/09/19 09:40 06/09/19 11:29 Glucose (Fingerstick) 143 mg/dL (70-99) 176 mg/dL (70-99) 162 mg/dL (70-99) Sodium Level 139 mmol/L (136-145) Potassium Level 4.4 mmol/L (3.5-5.1) Chloride Level 106 mmol/L (98-107) Carbon Dioxide Level 22 mmol/L (21-32) Anion Gap 11 (6-14) Blood Urea Nitrogen 3 mg/dL (8-26) Creatinine 1.0 mg/dL (0.7-1.3) Estimated GFR (Cockcroft-Gault) 77.3 BUN/Creatinine Ratio 3 (6-20) Glucose Level 197 mg/dL (70-99) Calcium Level 8.8 mg/dL (8.5-10.1) Total Bilirubin 0.5 mg/dL (0.2-1.0) Aspartate Amino Transf (AST/SGOT) 16 U/L (15-37) Alanine Aminotransferase (ALT/SGPT) 19 U/L (16-63) Alkaline Phosphatase 72 U/L (46-116) Total Protein 7.1 g/dL (6.4-8.2) Albumin 2.7 g/dL (3.4-5.0) Albumin/Globulin Ratio 0.6 (1.0-1.7) Laboratory Tests Test 06/08/19 16:53 06/08/19 21:13 06/09/19 07:33 06/09/19 09:40 Glucose (Fingerstick) 152 mg/dL (70-99) 143 mg/dL (70-99) 176 mg/dL (70-99) Sodium Level 139 mmol/L (136-145) Potassium Level 4.4 mmol/L (3.5-5.1) Chloride Level 106 mmol/L (98-107) Carbon Dioxide Level 22 mmol/L (21-32) Anion Gap 11 (6-14) Blood Urea Nitrogen 3 mg/dL (8-26) Creatinine 1.0 mg/dL (0.7-1.3) Estimated GFR (Cockcroft-Gault) 77.3 BUN/Creatinine Ratio 3 (6-20) Glucose Level 197 mg/dL (70-99) Calcium Level 8.8 mg/dL (8.5-10.1) Total Bilirubin 0.5 mg/dL (0.2-1.0) Aspartate Amino Transf (AST/SGOT) 16 U/L (15-37) Alanine Aminotransferase (ALT/SGPT) 19 U/L (16-63) Alkaline Phosphatase 72 U/L (46-116) Total Protein 7.1 g/dL (6.4-8.2) Albumin 2.7 g/dL (3.4-5.0) Albumin/Globulin Ratio 0.6 (1.0-1.7) Test 06/09/19 11:29 Glucose (Fingerstick) 162 mg/dL (70-99) Brief Hospital Course Mr Spain is a 58-year-old male SNF resident w/ PMHx Diabetes, hypertension, obesity, diabetic neuropathy, osteoarthritis, history of gangrenous diabetic foot wound, status post right BKA. History of group B strep, Acinetobacter, Porphyromonas and anaerobe infections, history of cardiac arrest, sleep apnea on CPAP and hyperlipidemia who presented with a two-day history of acute diarrhea, nonbloody with bowel urgency and incontinence. He says he has lost his appetite and is having abdominal cramps and some bloating. He had prolonged ventilatory stay for ARDS and is status post trach 03/26/19, status post PEG 03/27/19. He was recently discharged from LTAC with Tracheostomy reversed prior to d/c to SNF and is currently living at [facility]. Had a PEG tube removal 05/21/19.\ He denies dining out except for what is served at SNF He is not aware of any other residents with similar symptoms. Within the last three months, he has been on antibiotics. No c diff, no BM for the past 2 days. He c/o early satiety, feels he his almost ready to return home, have d/w PT and OT he should have home health. Seen by GI for his symptoms Abnormal gastric emptying study with 48 percent residual gastric retention at 4 hours consistent with severely delayed gastric emptying. Not hungry. Hasn't been bothered by abd pain. Had a BM Started on bethanechol as he did previously not tolerate reglan well while on previous hospital stays. Problem list: sepsis, leukocytosis , CRP high, fluid given C. diff. tox neg 06/06 weakness and debility Diarrhea - resolved, colonoscopy UTD Early satiety, anorexia, h/o GERD - on PPI, EGD unrevealing 03/2019 Mid abd discomfort - better H/o DM - A1c 5.3, was hypoglycemic, hold sulfonylurea BMI 38 severe protein-caloric malnutrition he had previously been on disability for r BKA Early satiety since PEG removal - likely diabetic gastroparesis, will get GES Greater than 30 minutes spent on d/c Discharge Information Condition at Discharge: Stable Follow Up: Weeks (2) Disposition/Orders: D/C to Home w/ HH Scheduled Amlodipine Besylate (Amlodipine Besylate) 10 Mg Tablet, 10 MG PO DAILY for htn, (Reported) Entered as Reported by: NIALL DOE on 02/27/191708 Last Action: Continued on 06/05/191545 by PAUL GRIMES Aspirin (Aspirin) 81 Mg Tab.chew, 81 MG PO DAILY for heart health, (Reported) Entered as Reported by: NIALL DOE on 02/27/191705 Last Action: Continued on 06/05/191545 by PAUL GRIMES Atorvastatin Calcium (Atorvastatin Calcium) 20 Mg Tablet, 20 MG PO DAILY for FOR CHOLESTEROL, #30 Ref 0 (Reported) Entered as Reported by: NIALL DOE on 02/27/191708 Last Action: Continued on 06/05/191545 by PAUL GRIMES Bethanechol Chloride (Urecholine) 5 Mg Tablet, 5 MG PO TIDBFRMEAL for Diabetic gastroparesis for 30 Days, #90 Ref 2 Prescribed by: YRIS RUIZ MD on 06/09/19 1205 Doxazosin Mesylate (Doxazosin Mesylate) 2 Mg Tablet, 2 MG PO DAILY for htn, (Reported) Entered as Reported by: NIALL DOE on 02/27/191708 Last Action: Converted on 06/05/191545 by PAUL GRIMES Insulin Glargine,Hum.rec.anlog (Lantus Solostar) 100 Unit/1 Ml Insuln.pen, 20 UNIT SQ QHS for dm, #15 Ref 5 (Reported) Entered as Reported by: NIALL DOE on 02/27/191710 Last Action: HELD on 06/05/191545 by PAUL GRIMES Insulin Lispro (Humalog) 100 Unit/1 Ml Cartridge, 6 UNIT SQ TIDWMEALS for dm, (Reported) Entered as Reported by: NIALL DOE on 02/27/191710 Last Action: Converted on 06/05/191545 by PAUL GRIMES Losartan Potassium (Losartan Potassium) 100 Mg Tablet, 100 MG PO DAILY for HYPERTENSION, (Reported) Entered as Reported by: NIALL DOE on 02/27/191708 Omeprazole (Omeprazole) 40 Mg Capsule.dr, 40 MG PO DAILY for gerd, (Reported) Entered as Reported by: NIALL DOE on 02/27/191708 Last Action: Converted on 06/05/191545 by PAUL GRIMES Polyethylene Glycol 3350 (Polyethylene Glycol 3350) 17 Gm Powd.pack, 17 GM PO DAILY for Constipation for 30 Days, #30 Ref 2 Prescribed by: YRIS RUIZ MD on 06/09/19 1213 Potassium Chloride (Klor-Con M20) 20 Meq Tab.er.prt, 20 MEQ PO DAILYWBKFT for Hypokalemia for 30 Days, #30 Ref 2 Prescribed by: YRIS RUIZ MD on 06/09/19 1205 Scheduled PRN Albuterol Sulfate (Proair Hfa Inhaler) 8.5 Gm Hfa.aer.ad, 1 PUFF INH PRN Q6HRS PRN for SHORTNESS OF BREATH, Ref 0 (Reported) Entered as Reported by: NIALL DOE on 02/27/19 1711 Last Action: Continued on 06/05/19 1546 by PAUL GRIMES Dicyclomine Hcl (Dicyclomine Hcl) 10 Mg Capsule, 10 MG PO PRN Q6HRS PRN for SEE COMMENTS for 30 Days, #12 Ref 2 Prescribed by: YRIS RUIZ MD on 06/09/19 1205 YRIS RUIZ MD Jun 09, 2019 12:18
--- NOTE | 2019-06-09 12:59 | RAD ---
Gastric Emptying Study 06/09/2019 Indication: Early satiety COMPARISON STUDY: None available Procedure: Anterior and posterior projection static images are obtained over the stomach following oral administration of 2.1 mCi of 99 M technetium sulfur colloid in a solid meal (egg and toast). Time points include an immediate baseline, and 1, 2, 3, and 4 hours post ingestion. Findings: There is progressive emptying of the stomach on sequential images. Percentage retention at... One hour is 75% (normal 34.8-91%). Two hours 64% (normal 2.7-60%). Three hours 60% (normal 0.5-28%). Four hours 48% (normal 0-10%). Impression: Abnormal gastric emptying study with 48 percent residual gastric retention at 4 hours consistent with severely delayed gastric emptying. Consensus Recommendations for Gastric Emptying Scintigraphy: A Joint Report of the [place] [employer] and the Society of Nuclear Medicine: J. Nucl. Med. Technol. January 2008 vol. 36 no. 1 44-54 Grading for severity of delayed GE based on the 4-h value: grade 1 (mild): 11?20% retention at 4 h grade 2 (moderate): 21?35% retention at 4 h grade 3 (severe): 36?50% retention at 4 h grade 4 (very severe): >50% retention at 4 h. Electronically signed by: Chivo Wadsworth MD (06/09/2019 12:56 PM) [facility]
[2019-06-09] MEDS: ASPIRIN CHEWABLE 81 MG TABLET. PO SCH (13:55)
[2019-06-09] MEDS: DOXAZOSIN MESYLATE 1 MG TABLET. PO SCH (13:56)
[2019-06-09] MEDS: PANTOPRAZOLE 40 MG TABLET.DR. PO SCH (13:56)
[2019-06-09] MEDS: LOSARTAN POTASSIUM 50 MG TABLET. PO SCH (13:56)
[2019-06-09] MEDS: LACTOBACILLUS RHAMNOSUS GG 1 CAPSULE. PO SCH ×2 (13:56→21:58)
[2019-06-09] MEDS: amLODIPine BESYLATE 10 MG TABLET PO SCH (13:57)
--- NOTE | 2019-06-09 14:22 | NUR ---
FROM ASSISTED LIVING FACILITY AND [facility] IS CLEANING PATIENT APARTMENT TODAY DUE TO INCONTINENCE EPISODES FROM ENTERITIS PRIOR TO ADMISSION AND WONT ALLOW PATIENT BACK INTO APARTMENT UNTIL TOMORROW.
[2019-06-09 15:00] VITALS: BP 133/79
[2019-06-09] MEDS: ENOXAPARIN 40 MG/0.4 ML SYRINGE. SQ SCH (17:00)
[2019-06-09 19:53] VITALS: BP 122/63
[2019-06-09] MEDS: ATORVASTATIN CALCIUM 20 MG TABLET PO SCH (21:58)
[2019-06-09 23:33] VITALS: BP 107/64
[2019-06-10 03:51] VITALS: BP 117/56
[2019-06-10 07:00] VITALS: BP 147/73
[2019-06-10] MEDS: POTASSIUM CL 20MEQ D5-0.45NACL 1,000 ML IV SCH ×2 (07:45→15:45)
--- NOTE | 2019-06-10 07:49 | PDOC ---
PROGRESS NOTES Chief Complaint Chief Complaint Assessment/Plan sepsis, leukocytosis , CRP high, fluid given C. diff. tox neg 06/06 weakness and debility Diarrhea - resolved, colonoscopy UTD Early satiety, anorexia, h/o GERD - on PPI, EGD unrevealing 03/2019 Mid abd discomfort - better H/o DM - A1c 5.3, was hypoglycemic, hold sulfonylurea BMI 38 severe protein-caloric malnutrition he had previously been on disability for r BKA Early satiety since PEG removal - likely diabetic gastroparesis, will get GES 29 min pt exam, chart review, > 50% of time spent with exam, chart review, pt care coordination, disease process education History of Present Illness History of Present Illness Mr Spain is a 58-year-old male SNF resident w/ PMHx Diabetes, hypertension, obesity, diabetic neuropathy, osteoarthritis, history of gangrenous diabetic foot wound, status post right BKA. History of group B strep, Acinetobacter, Porphyromonas and anaerobe infections, history of cardiac arrest, sleep apnea on CPAP and hyperlipidemia who presented with a two-day history of acute diarrhea, nonbloody with bowel urgency and incontinence. He says he has lost his appetite and is having abdominal cramps and some bloating. He had prolonged ventilatory stay for ARDS and is status post trach 03/26/19, status post PEG 03/27/19. He was recently discharged from [facility]AC with Tracheostomy reversed prior to d/c to SNF and is currently living at [facility]. Had a PEG tube removal 05/21/19.\ He denies dining out except for what is served at SNF He is not aware of any other residents with similar symptoms. Within the last three months, he has been on antibiotics. No c diff, no BM for the past 2 days. He c/o early satiety, feels he his almost ready to return home, have d/w PT and OT he should have home health. Gastric emptying test positive - Abnormal gastric emptying study with 48 percent residual gastric retention at 4 hours consistent with severely delayed gastric emptying. Not hungry. Has stooled. Hasn't been bothered by abd pain. Vitals Vitals Vital Signs Date Time Temp Pulse Resp B/P (MAP) Pulse Ox O2 Delivery O2 Flow Rate FiO2 06/10/19 03:51 98.0 78 18 117/56 (76) 97 Room Air 98.0 Physical Exam Physical Exam GENERAL: Sitting in the chair, alert, NAD HEENT: Pupils equally round. Oropharynx pink and moist. NECK: Supple. LUNGS: Clear to auscultation. HEART: S1 and S2. ABDOMEN: Obese, soft, mildly tender with bowel sounds present. EXTREMITIES: No gross edema or cyanosis. 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 SKIN: Warm to touch. Without rash. NEUROLOGIC: Alert and answering questions appropriately. General: Alert, Oriented X3, No acute distress Heart: Regular rate, Normal S1, Normal S2 Lungs: Clear, Crackles Abdomen: Normal bowel sounds, Soft, No tenderness, No hepatosplenomegaly, No masses Extremities: No clubbing, No cyanosis, No edema, Normal pulses Skin: No rashes, No breakdown Labs LABS Laboratory Tests Test 06/09/19 09:40 06/09/19 11:29 06/09/19 17:09 06/09/19 20:46 Sodium Level 139 mmol/L (136-145) Potassium Level 4.4 mmol/L (3.5-5.1) Chloride Level 106 mmol/L (98-107) Carbon Dioxide Level 22 mmol/L (21-32) Anion Gap 11 (6-14) Blood Urea Nitrogen 3 mg/dL (8-26) Creatinine 1.0 mg/dL (0.7-1.3) Estimated GFR (Cockcroft-Gault) 77.3 BUN/Creatinine Ratio 3 (6-20) Glucose Level 197 mg/dL (70-99) Calcium Level 8.8 mg/dL (8.5-10.1) Total Bilirubin 0.5 mg/dL (0.2-1.0) Aspartate Amino Transf (AST/SGOT) 16 U/L (15-37) Alanine Aminotransferase (ALT/SGPT) 19 U/L (16-63) Alkaline Phosphatase 72 U/L (46-116) Total Protein 7.1 g/dL (6.4-8.2) Albumin 2.7 g/dL (3.4-5.0) Albumin/Globulin Ratio 0.6 (1.0-1.7) Glucose (Fingerstick) 162 mg/dL (70-99) 128 mg/dL (70-99) 132 mg/dL (70-99) Assessment and Plan Assessmemt and Plan Problems Medical Problems: (1) Enteritis Status: Acute (2) Sepsis Status: Acute Comment Review of Relevant I have reviewed the following items pasucal (where applicable) has been applied. Labs Laboratory Tests Test 06/08/19 12:06 06/08/19 16:53 06/08/19 21:13 06/09/19 07:33 Glucose (Fingerstick) 185 mg/dL (70-99) 152 mg/dL (70-99) 143 mg/dL (70-99) 176 mg/dL (70-99) Test 06/09/19 09:40 06/09/19 11:29 06/09/19 17:09 06/09/19 20:46 Sodium Level 139 mmol/L (136-145) Potassium Level 4.4 mmol/L (3.5-5.1) Chloride Level 106 mmol/L (98-107) Carbon Dioxide Level 22 mmol/L (21-32) Anion Gap 11 (6-14) Blood Urea Nitrogen 3 mg/dL (8-26) Creatinine 1.0 mg/dL (0.7-1.3) Estimated GFR (Cockcroft-Gault) 77.3 BUN/Creatinine Ratio 3 (6-20) Glucose Level 197 mg/dL (70-99) Calcium Level 8.8 mg/dL (8.5-10.1) Total Bilirubin 0.5 mg/dL (0.2-1.0) Aspartate Amino Transf (AST/SGOT) 16 U/L (15-37) Alanine Aminotransferase (ALT/SGPT) 19 U/L (16-63) Alkaline Phosphatase 72 U/L (46-116) Total Protein 7.1 g/dL (6.4-8.2) Albumin 2.7 g/dL (3.4-5.0) Albumin/Globulin Ratio 0.6 (1.0-1.7) Glucose (Fingerstick) 162 mg/dL (70-99) 128 mg/dL (70-99) 132 mg/dL (70-99) Laboratory Tests Test 06/09/19 09:40 06/09/19 11:29 06/09/19 17:09 06/09/19 20:46 Sodium Level 139 mmol/L (136-145) Potassium Level 4.4 mmol/L (3.5-5.1) Chloride Level 106 mmol/L (98-107) Carbon Dioxide Level 22 mmol/L (21-32) Anion Gap 11 (6-14) Blood Urea Nitrogen 3 mg/dL (8-26) Creatinine 1.0 mg/dL (0.7-1.3) Estimated GFR (Cockcroft-Gault) 77.3 BUN/Creatinine Ratio 3 (6-20) Glucose Level 197 mg/dL (70-99) Calcium Level 8.8 mg/dL (8.5-10.1) Total Bilirubin 0.5 mg/dL (0.2-1.0) Aspartate Amino Transf (AST/SGOT) 16 U/L (15-37) Alanine Aminotransferase (ALT/SGPT) 19 U/L (16-63) Alkaline Phosphatase 72 U/L (46-116) Total Protein 7.1 g/dL (6.4-8.2) Albumin 2.7 g/dL (3.4-5.0) Albumin/Globulin Ratio 0.6 (1.0-1.7) Glucose (Fingerstick) 162 mg/dL (70-99) 128 mg/dL (70-99) 132 mg/dL (70-99) Medications Current Medications Sodium Chloride 1,000 ml @ 1,000 mls/hr 1X ONCE IV Last administered on 06/05/19at 13:58; Start 06/05/19 at 13:45; Stop 06/05/19 at 14:44; Status DC Dextrose (Dextrose 50%-Water Syringe) 25 gm STK-MED ONCE IV ; Start 06/05/19 at 15:31; Stop 06/05/19 at 15:32; Status DC Vancomycin HCl (Vancomycin Oral Solution) 125 mg [id number] PO Last administered on 06/07/19at 09:58; Start 06/05/19 at 16:00; Stop 06/07/19 at 13:39; Status DC Metronidazole 100 ml @ 100 mls/hr Q8HRS IV Last administered on 06/07/19at 06:09; Start 06/05/19 at 15:45; Stop 06/07/19 at 13:39; Status DC Potassium Chloride/Dextrose/ Sod Cl 1,000 ml @ 125 mls/hr Q8H IV Last administered on 06/09/19at 01:00; Start 06/05/19 at 15:45 Insulin Human Lispro (HumaLOG) 0-5 UNITS TIDWMEALS SQ Last administered on 06/08/19 12:39; Start 06/05/19 at 17:00 Dextrose (Dextrose 50%-Water Syringe) 12.5 gm PRN Q15MIN PRN IV SEE COMMENTS; Start 06/05/19 at 15:45 Dextrose (Dextrose 50%-Water Syringe) 25 gm 1X ONCE IV Last administered on 06/05/19at 15:48; Start 06/05/19 at 15:45; Stop 06/05/19 at 15:47; Status DC Albuterol Sulfate (Ventolin Neb Soln) 2.5 mg PRN Q6HRS PRN INH SHORTNESS OF BREATH; Start 06/05/19 at 15:45 Amlodipine Besylate (Norvasc) 10 mg DAILY PO Last administered on 06/09/19 13:57; Start 06/06/19 at 09:00 Aspirin (Children'S Aspirin) 81 mg DAILY PO Last administered on 06/09/19 13:55; Start 06/06/19 at 09:00 Atorvastatin Calcium (Lipitor) 20 mg QHS PO Last administered on 06/09/19 21:58; Start 06/05/19 at 21:00 Doxazosin Mesylate (Cardura) 2 mg DAILY PO Last administered on 06/09/19 13:56; Start 06/06/19 at 09:00 Insulin Human Lispro (HumaLOG) 6 units TIDWMEALS SQ Last administered on 06/08/19 18:36; Start 06/06/19 at 08:00 Pantoprazole Sodium (Protonix) 40 mg DAILYAC PO Last administered on 06/09/19 13:56; Start 06/06/19 at 07:30 Losartan Potassium (Cozaar) 50 mg DAILY PO Last administered on 06/09/19 13:56; Start 06/06/19 at 09:00 Enoxaparin Sodium (Lovenox Per Pharmacy Prophylaxis Dosing) 1 each PRN DAILY PRN MC SEE COMMENTS; Start 06/05/19 at 16:00 Enoxaparin Sodium (Lovenox 40mg Syringe) 40 mg Q24H SQ Last administered on 06/08/19at 17:00; Start 06/05/19 at 17:00 Dicyclomine HCl (Bentyl) 10 mg PRN Q6HRS PRN PO SEE COMMENTS; Start 06/06/19 at 10:45 Ondansetron HCl (Zofran) 4 mg PRN Q6HRS PRN IV NAUSEA/VOMITING Last administere d on 06/08/19 12:32; Start 06/06/19 at 12:45 Lactobacillus Rhamnosus (Culturelle) 1 cap BID PO Last administered on 06/09/19 21:58; Start 06/06/19 at 21:00 Potassium Chloride (Klor-Con) 40 meq 1X ONCE PO Last administered on 06/06/19 18:48; Start 06/06/19 at 19:30; Stop 06/06/19 at 19:31; Status DC Potassium Chloride (Klor-Con) 20 meq DAILYWBKFT PO Last administered on 06/09/19 08:00; Start 06/07/19 at 08:00 Calcium Carbonate/ Glycine (Tums) 500 mg PRN AFTMEALHC PRN PO INDIGESTION Last administered on 06/07/19 14:50; Start 06/07/19 at 14:15 Polyethylene Glycol (miraLAX PACKET) 17 gm DAILY PO Last administered on 06/08/19 12:34; Start 06/08/19 at 13:00 Active Scripts Active Polyethylene Glycol 3350 17 Gm Powd.pack 17 Gm PO DAILY 30 Days Urecholine (Bethanechol Chloride) 5 Mg Tablet 5 Mg PO TIDBFRMEAL 30 Days Klor-Con M20 (Potassium Chloride) 20 Meq Tab.er.prt 20 Meq PO DAILYWBKFT 30 Days Dicyclomine Hcl 10 Mg Capsule 10 Mg PO PRN Q6HRS PRN 30 Days Reported Proair Hfa Inhaler (Albuterol Sulfate) 8.5 Gm Hfa.aer.ad 1 Puff INH PRN Q6HRS PRN Lantus Solostar (Insulin Glargine,Hum.rec.anlog) 100 Unit/1 Ml Insuln.pen 20 Unit SQ QHS Humalog (Insulin Lispro) 100 Unit/1 Ml Cartridge 6 Unit SQ TIDWMEALS Doxazosin Mesylate 2 Mg Tablet 2 Mg PO DAILY Omeprazole 40 Mg Capsule.dr 40 Mg PO DAILY Amlodipine Besylate 10 Mg Tablet 10 Mg PO DAILY Atorvastatin Calcium 20 Mg Tablet 20 Mg PO DAILY Losartan Potassium 100 Mg Tablet 100 Mg PO DAILY Aspirin 81 Mg Tab.chew 81 Mg PO DAILY Vitals/I & O Vital Sign - Last 24 Hours 06/09/19 06/09/19 06/09/19 06/09/19 08:00 11:00 13:56 13:56 Temp 98.8 98.8 Pulse 80 80 80 Resp 16 B/P (MAP) 144/67 (92) 144/67 144/67 Pulse Ox 95 O2 Delivery Room Air Room Air 06/09/19 06/09/19 06/09/19 06/09/19 13:57 15:00 19:53 20:00 Temp 98.3 98.5 98.3 98.5 Pulse 80 81 80 Resp 14 18 B/P (MAP) 144/67 133/79 (97) 122/63 (82) Pulse Ox 94 93 O2 Delivery Room Air Room Air Room Air 06/09/19 06/10/19 23:33 03:51 Temp 98.1 98.0 98.1 98.0 Pulse 75 78 Resp 18 18 B/P (MAP) 107/64 (78) 117/56 (76) Pulse Ox 95 97 O2 Delivery Room Air Room Air Intake and Output 06/09/19 06/09/19 06/10/19 14:59 22:59 06:59 Intake Total 0 ml 250 ml 0 ml Balance 0 ml 250 ml 0 ml YRIS RUIZ MD Jun 10, 2019 07:49
[2019-06-10] MEDS ORDERED: METOCLOPRAMIDE HCL 10 MG/2 ML VIAL. IV SCH (08:00)
[2019-06-10] MEDS: INSULIN LISPRO 300 UNITS/3 ML INSULN.PEN. SQ SCH ×6 (08:00→17:00)
[2019-06-10] MEDS: ERYTHROMYCIN BASE 250 MG TABLET PO SCH ×3 (08:00→18:04)
[2019-06-10] MEDS: LACTOBACILLUS RHAMNOSUS GG 1 CAPSULE. PO SCH (08:26)
[2019-06-10] MEDS: PANTOPRAZOLE 40 MG TABLET.DR. PO SCH (08:26)
[2019-06-10] MEDS: ASPIRIN CHEWABLE 81 MG TABLET. PO SCH (08:27)
[2019-06-10] MEDS: POTASSIUM CHLORIDE 20 MEQ TABLET.ER. PO SCH (08:27)
[2019-06-10] MEDS: LOSARTAN POTASSIUM 50 MG TABLET. PO SCH (08:29)
[2019-06-10] MEDS: amLODIPine BESYLATE 10 MG TABLET PO SCH (08:29)
[2019-06-10] MEDS: DOXAZOSIN MESYLATE 1 MG TABLET. PO SCH (08:30)
[2019-06-10] MEDS: POLYETHYLENE GLYCOL 3350 17 GM PACKET. PO SCH ×2 (08:30→11:41)
[2019-06-10 11:00] VITALS: BP 115/65
--- NOTE | 2019-06-10 12:17 | NUR ---
MELVIN following pt. MELVIN phoned [facility] to check if apartment has been cleaned and left a message requesting a call back.
--- NOTE | 2019-06-10 12:21 | PDOC ---
Subjective: Subjective: Doing okay - ate some but not all of breakfast. Hasn't stooled. No abd pain. We talked about his living situation - is in independent living at [facility] and is provided with two meals per day but is unable to make food for himself due to mobility issues. Objective: Vital Signs: Vital Signs Date Time Temp Pulse Resp B/P (MAP) Pulse Ox O2 Delivery O2 Flow Rate FiO2 06/10/19 08:30 78 147/73 06/10/19 08:00 Room Air 06/10/19 07:00 98.1 18 90 98.1 Labs: Laboratory Tests Test 06/09/19 17:09 06/09/19 20:46 06/10/19 08:29 Glucose (Fingerstick) 128 mg/dL 132 mg/dL 162 mg/dL PE: GEN: NAD, up to chair LUNGS: room air HEART: RRR ABD: S/ND/NT NEURO/PSYCH: A & O 3 A/P: Gastroparesis GERD -- Tolerating PO. Continue PPI. Beginning trial of e-mycin. Living situation not ideal for gastroparesis diet (small frequent meals). Continue Miralax. DC per primary. RJ MOFFETT Jun 10, 2019 12:20
--- NOTE | 2019-06-10 12:31 | PDOC ---
Infectious Disease Note Subjective: Subjective Not feeling well Mild abd cramps some nausea, no vomiting no further diarrhea since admission No F/C ROS: ROS Negative except for above. Vital Signs: Vital Signs Vital Signs Date Time Temp Pulse Resp B/P (MAP) Pulse Ox O2 Delivery O2 Flow Rate FiO2 06/10/19 08:30 78 147/73 06/10/19 08:00 Room Air 06/10/19 07:00 98.1 18 90 98.1 Physical Exam: PHYSICAL EXAM GENERAL: Sitting in the chair, alert, NAD HEENT: Pupils equally round. Oropharynx pink and moist. NECK: Supple. LUNGS: Clear to auscultation. HEART: S1 and S2. ABDOMEN: Obese, soft, mildly tender with bowel sounds present. EXTREMITIES: No gross edema or cyanosis. 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 SKIN: Warm to touch. Without rash. NEUROLOGIC: Alert and answering questions appropriately. Medications: Inpatient Meds: Current Medications Medications (Trade) Dose Ordered Sig/Lula Start Time Stop Time Status Last Admin Dose Admin Albuterol Sulfate (Ventolin Neb Soln) 2.5 mg PRN Q6HRS PRN 06/05/19 15:45 Amlodipine Besylate (Norvasc) 10 mg DAILY 06/06/19 09:00 06/10/19 08:29 10 MG Aspirin (Children'S Aspirin) 81 mg DAILY 06/06/19 09:00 06/10/19 08:27 81 MG Atorvastatin Calcium (Lipitor) 20 mg QHS 06/05/19 21:00 06/09/19 21:58 20 MG Calcium Carbonate/ Glycine (Tums) 500 mg PRN AFTMEALHC PRN 06/07/19 14:15 06/07/19 14:50 500 MG Dextrose (Dextrose 50%-Water Syringe) 25 gm 1X ONCE 06/05/19 15:45 06/05/19 15:47 DC 06/05/19 15:48 12.5 GM Dicyclomine HCl (Bentyl) 10 mg PRN Q6HRS PRN 06/06/19 10:45 Doxazosin Mesylate (Cardura) 2 mg DAILY 06/06/19 09:00 06/10/19 08:30 2 MG Enoxaparin Sodium (Lovenox 40mg Syringe) 40 mg Q24H 06/05/19 17:00 06/08/19 17:00 40 MG Enoxaparin Sodium (Lovenox Per Pharmacy Prophylaxis Dosing) 1 each PRN DAILY PRN 06/05/19 16:00 Erythromycin (E-Mycin) 250 mg QIDACHS 06/10/19 08:00 06/10/19 11:40 250 MG Insulin Human Lispro (HumaLOG) 6 units TIDWMEALS 06/06/19 08:00 06/10/19 12:07 6 UNITS Lactobacillus Rhamnosus (Culturelle) 1 cap BID 06/06/19 21:00 06/10/19 08:26 1 CAP Losartan Potassium (Cozaar) 50 mg DAILY 06/06/19 09:00 06/10/19 08:29 50 MG Metoclopramide HCl (Reglan Vial) 10 mg QIDACHS 06/10/19 08:00 06/10/19 08:00 DC Metronidazole 100 ml @ 100 mls/hr Q8HRS 06/05/19 15:45 06/07/19 13:39 DC 06/07/19 06:09 100 MLS/HR Ondansetron HCl (Zofran) 4 mg PRN Q6HRS PRN 06/06/19 12:45 06/08/19 12:32 4 MG Pantoprazole Sodium (Protonix) 40 mg DAILYAC 06/06/19 07:30 06/10/19 08:26 40 MG Polyethylene Glycol (miraLAX PACKET) 17 gm DAILY 06/08/19 13:00 06/10/19 11:41 17 GM Potassium Chloride/Dextrose/ Sod Cl 1,000 ml @ 125 mls/hr Q8H 06/05/19 15:45 06/09/19 01:00 125 MLS/HR Potassium Chloride (Klor-Con) 20 meq [id number] 06/07/19 08:00 06/10/19 08:27 20 MEQ Sodium Chloride 1,000 ml @ 1,000 mls/hr 1X ONCE 06/05/19 13:45 06/05/19 14:44 DC 06/05/19 13:58 1,000 MLS/HR Vancomycin HCl (Vancomycin Oral Solution) 125 mg [id number] 06/05/19 16:00 06/07/19 13:39 DC 06/07/19 09:58 125 MG Labs: Lab Laboratory Tests Test 06/09/19 17:09 06/09/19 20:46 06/10/19 08:29 Glucose (Fingerstick) 128 mg/dL (70-99) 132 mg/dL (70-99) 162 mg/dL (70-99) Objective: Assessment: Acute diarrhea. Ci diff neg, 06/05.resolved Leukocytosis - better Diabetes HTN h/o group B strep, Acinetobacter, Porphyromonas, plus anaerobes. Plan: Plan of Care monitor off antibiotics off vanco and flagyl stool cultures pending Maintain hydration VIVIAN RAMIREZ MD Jun 10, 2019 12:31
--- NOTE | 2019-06-10 13:01 | NUR ---
SW following pt. SW received a phone call from Jayne at [facility], [place] , who reported she is awaiting on pt's friends to bring new Mattress. Per Jayne, pt is not able to come back until pt's friend bring his Mattress. Will follow up later.
[2019-06-10 15:00] VITALS: BP 120/66
--- NOTE | 2019-06-10 16:30 | NUR ---
MELVIN following. Attempted to reach Jayne and voice mail is full. MELVIN phoned , phone: [phone] and spoke with Jerry. He reports pt's apartment was cleaned today but he states Jayne has not informed him about a mattress. Jerry to check pt's apartment and call RN (number provided) back. RN notified.
[2019-06-10] MEDS: ENOXAPARIN 40 MG/0.4 ML SYRINGE. SQ SCH (17:00)
--- NOTE | 2019-06-10 19:41 | NUR ---
Discharge Note: RONNY GOLDSMITH [address] Discharge instructions and discharge home medications reviewed with patient and a copy given. All questions have been answered and understanding verbalized. The following instructions and handouts were given: Take home meds as directed. Erythromycin four times a day for gastroparesis. Follow up with PCP in a week. Call MD if with worsening of symptoms. Discontinued lines and drains: peripheral IV intact, patient tolerated removal, no complications noted. Patient discharged to [facility] via wheelchair through [facility] transport at 1845.
== END 2019-06-10 18:29 | disposition home or self-care (01) | DRG 871 ==
LOC: ER 12:30 → 6 SOUTH 13:40
PROVIDERS: ADMIT Internal Medicine; ATTEND Internal Medicine
DX: A41.9 Sepsis, unspecified organism (principal); E43 Unspecified severe protein-calorie malnutrition; E11.649 Type 2 diabetes mellitus with hypoglycemia without coma; K31.84 Gastroparesis; E11.43 Type 2 diabetes mellitus with diabetic autonomic (poly)neuropathy; Z86.74 Personal history of sudden cardiac arrest; E11.40 Type 2 diabetes mellitus with diabetic neuropathy, unspecified; K52.9 Noninfective gastroenteritis and colitis, unspecified; Z68.38 Body mass index [BMI] 38.0-38.9, adult; E78.00 Pure hypercholesterolemia, unspecified; I10 Essential (primary) hypertension; E78.5 Hyperlipidemia, unspecified; Z82.49 Family history of ischemic heart disease and other diseases of the circulatory system; Z83.3 Family history of diabetes mellitus; K21.9 Gastro-esophageal reflux disease without esophagitis; R32 Unspecified urinary incontinence; Z89.511 Acquired absence of right leg below knee; E66.9 Obesity, unspecified; M19.90 Unspecified osteoarthritis, unspecified site; Z82.61 Family history of arthritis; R53.81 Other malaise
CPT/HCPCS: 36415; 71045; 74018; 78264; 80053; 82962; 83036; 83605; 85007; 85025; 86140; 87493; 93005; 94760; 96361; 96374; A9541; J1650; J1815; J2405; J3490; J7030; J7042; 97116; 97535; 99285-25

== ENCOUNTER → 2020-10-06 | Outpatient (CLI) | payer MEDICARE ==
[~2020-10-06] MED LIST changes: +AMLO-187 PO; -AMLO10TA8 PO; +BETH5TAB PO; +DICY10CA3 PO; +OMEP40CA45 PO; -OMEP40CA5 PO; +POLY17PO28 PO; +POTA20TA4 PO
--- NOTE | 2020-10-06 15:48 | RAD ---
Examination: Ultrasound kidneys HISTORY: History of chronic kidney disease stage III COMPARISON: 02/27/2019. FINDINGS: The right kidney measures 9.9 x 4.2 x 5.4 cm. The left kidney measures 9.6 x 4.1 x 4.9 cm. The urinary bladder is mildly distended. There is a 2.8 cm cystic structure identified in the right kidney probably cyst. Examination limited due to bowel gas. IMPRESSION: 1. 2.8 cm cystic structure identified in the right kidney probably a cyst. Evaluation limited due to bowel gas. Electronically signed by: Bharat Butler MD (10/06/2020 3:45 PM) [id number]
== END ==
LOC: US 14:48
PROVIDERS: ATTEND Nurse Practitioner Family
DX: N28.1 Cyst of kidney, acquired (principal); N18.30 Chronic kidney disease, stage 3 unspecified
CPT/HCPCS: 76770

== ENCOUNTER → 2021-03-08 | Outpatient (CLI) | payer MEDICARE ==
[~2021-03-08] MED LIST changes: -POLY17PO28 PO; +POLY17PO52 PO
== END ==
LOC: LAB 12:12
PROVIDERS: ATTEND Internal Medicine Gastroenterology
DX: U07.1 COVID-19 (principal); Z01.812 Encounter for preprocedural laboratory examination; K92.1 Melena
CPT/HCPCS: U0003

== ENCOUNTER → 2021-04-07 | Outpatient (CLI) | payer MEDICARE ==
[2021-04-07 11:21] LABS: BASO % 1 % (0-3); EOS # 0.1 x10^3/uL (0.0-0.7); EOS % 2 % (0-3); HEMATOCRIT 52.5 % (39.0-53.0); HEMOGLOBIN 17.6 g/dL (13.0-17.5); LYMPH # 1.4 x10^3/uL (1.0-4.8); LYMPH % 20 % (24-48); MEAN CORPUSCULAR HEMOGLOBIN 33 pg (25-35); MEAN CORPUSCULAR HGB CONC 34 g/dL (31-37); MEAN CORPUSCULAR VOLUME 97 fL (79-100); MONO # 0.4 x10^3/uL (0.0-1.1); MONO % 6 % (0-9); NEUT # 4.9 x10^3/uL (1.8-7.7); NEUT % 71 % (31-73); PLATELET COUNT 210 x10^3/uL (140-400); RED BLOOD COUNT 5.42 x10^6/uL (4.30-5.70); RED CELL DISTRIBUTION WIDTH 13.2 % (11.5-14.5); WHITE BLOOD COUNT 6.8 x10^3/uL (4.0-11.0)
[2021-04-07 11:29] LABS: ALBUMIN 3.6 g/dL (3.4-5.0); CALCIUM 8.8 mg/dL (8.5-10.1); CREATININE 1.7 mg/dL (0.7-1.3); GFR 41.6; PHOSPHORUS 3.3 mg/dL (2.6-4.7); POTASSIUM 4.5 mmol/L (3.5-5.1); URIC ACID 9.4 mg/dL (3.5-7.2)
== END ==
LOC: LAB 10:53
PROVIDERS: ATTEND Nurse Practitioner Family
DX: I12.9 Hypertensive chronic kidney disease with stage 1 through stage 4 chronic kidney disease, or unspecified chronic kidney disease (principal); E11.21 Type 2 diabetes mellitus with diabetic nephropathy; N18.32 Chronic kidney disease, stage 3b; Z68.41 Body mass index [BMI] 40.0-44.9, adult
CPT/HCPCS: 80069; 83540; 83550; 83735; 84550; 85025

== ENCOUNTER → 2021-04-14 | Day surgery (SDC) | payer MEDICARE ==
[~2021-04-14] VITALS: Ht 172.7 cm; Wt 122.0 kg
[~2021-04-14] MED LIST changes: +IV RINGERS,LACTATED 1000ML 1,000 ML IV SCH; +LIDOCAINE 2% PF 5 ML VIAL. ONE; +PROPOFOL 10 MG/ML (20ML) VIAL. IV ONE
[2021-04-14 08:46] VITALS: BP 134/83
[2021-04-14 10:21] VITALS: BP 106/69
--- NOTE | 2021-04-14 15:25 | CONS ---
DATE OF CONSULTATION: 04/14/2021 REFERRING PHYSICIAN: Jayne Burger. REASON FOR CONSULTATION: Hemoccult positive stools. HISTORY OF PRESENT ILLNESS: A 60-year-old male with past medical history significant for diabetes, hyperlipidemia, hypertension, CHF, history of FL, seen for interval colon exam. He has had regular bowel movements without diarrhea or constipation. Weight and appetite are stable. Colon exam in 2016 did reveal hemorrhoids. Colonoscopy was recommended last year, was delayed due to the COVID crisis. He is now here today for followup. PAST MEDICAL HISTORY: Hypertension, diabetes, FL, CHF. ALLERGIES: None. MEDICATIONS: Include albuterol, amlodipine, aspirin, atorvastatin, bethanechol, dicyclomine, doxazosin, insulin, losartan, omeprazole, polyethylene glycol, potassium chloride. PAST SURGICAL HISTORY: Right lower leg amputation, tonsillectomy. FAMILY HISTORY: Noncontributory. REVIEW OF SYSTEMS: Per records. PHYSICAL EXAMINATION: GENERAL: Reveals a well-nourished, well-developed male who is alert, cooperative, no acute distress. VITAL SIGNS: Temp 97.4, pulse 76, respiratory rate is 15, blood pressure is 134/83. LUNGS: Clear. CARDIOVASCULAR: Reveals an S1, S2. No S3, S4 or appreciable murmur. ABDOMEN: Revealed a soft abdomen, normal bowel sounds. No appreciable hepatosplenomegaly. EXTREMITIES: Reveals the leg amputation. IMPRESSION AND PLAN: Heme positive stools. The etiology is to be determined. Differential includes colonic polyps, cancer, AVMs, IBD, fissures, and hemorrhoids. Risks and benefits of procedure have been previously discussed with the patient including risk of hemorrhage and perforation and he is willing to proceed. EAST[place] DR: Gregg TID: [id number]
== END | disposition home or self-care (01) ==
LOC: ENDOS 07:49
PROVIDERS: ATTEND Internal Medicine Gastroenterology
DX: R19.5 Other fecal abnormalities (principal); K64.0 First degree hemorrhoids; K63.89 Other specified diseases of intestine; E11.9 Type 2 diabetes mellitus without complications; I11.0 Hypertensive heart disease with heart failure; I50.9 Heart failure, unspecified; I25.2 Old myocardial infarction; E78.00 Pure hypercholesterolemia, unspecified; G47.30 Sleep apnea, unspecified; M19.90 Unspecified osteoarthritis, unspecified site; Z79.82 Long term (current) use of aspirin; Z79.4 Long term (current) use of insulin; Z79.899 Other long term (current) drug therapy; Z98.890 Other specified postprocedural states
CPT/HCPCS: 45378; J2704